=== PATIENT | male | born 1940 | race Caucasian/White ===

== ENCOUNTER 2016-06-24 18:45 | Emergency (ER) | payer OTHER, MEDICARE ==
[2016-06-24 18:59] VITALS: BMI 55.3
--- NOTE | 2016-06-24 20:02 | PDOC ---
History of Present Illness - General Chief Complaint: Shortness of Breath Stated Complaint: SHORTNESS OF BREATH Time Seen by Provider: 06/24/16 19:35 - History of Present Illness Initial Comments: 06/24/16 20:02 CHIEF COMPLAINT: HISTORY OF PRESENT ILLNESS: 75 yo M with a PMH of HTN, HLD, CHF, CT, triple bypass, four stents, insulin dependent diabetes, COPD (on CPAP at home) presents to ED with SOB x 2-3 days. Patient denies any fever but reports "a runny nose x 2 weeks. He denies any chest or back pain and states "I don't really have pain, I'm just feeling short of breath for the last couple of days. " PAST MEDICAL HISTORY: as per HPI FAMILY HISTORY: Denies SOCIAL HISTORY: Current smoker, 1 pack daily. Denies alcohol, illicit drug use. SURGICAL HISTORY: "four stents", triple bypass, hernia operation, "stomach ulcer operation" ALLERGIES: pregabalin REVIEW OF SYSTEMS General/Constitutional: Denies fever or chills. Denies weakness, weight change. HEENT: Denies change in vision. Denies ear pain or discharge. Denies sore throat. Cardiovascular: Denies chest pain or shortness of breath. Respiratory: SOB x 2-3 days, runny nose x 2 weeks. Denies cough, wheezing, or hemoptysis. Gastrointestinal: Denies nausea, vomiting, diarrhea or constipation. Denies rectal bleeding. Genitourinary: Denies dysuria, frequency, or change in urination. Musculoskeletal: Denies joint or muscle swelling or pain. Denies neck or back pain. Skin : Denies rash or easy bruising. Neurologic: Denies headache, vertigo, loss of consciousness, or loss of sensation. PHYSICAL EXAM General Appearance: Well-appearing, appropriately dressed. No apparent distress. HEENT: EOMI, PERRLA, normal ENT inspection, normal voice, TMs normal, pharynx normal. No conjunctival pallor. No photophobia, scleral icterus. Neck: Supple. Trachea midline. No tenderness, rigidity, carotid bruit, stridor , lymphadenopathy, or thyromegaly. Respiratory/Chest: Decreased lung sounds bilaterally, decreased respiratory effort. No crackles, rales, rhonchi, stridor, wheezing, dullness Cardiovascular: RRR. S1, S2. No JVD, murmur, bradycardia, tachycardia. Gastrointestinal/Abdominal: Normal bowel sounds. Abdomen soft, non-distended. No tenderness or rebound tenderness. No organomegaly, pulsatile mass, guarding , hernia, hepatomegaly, splenomegaly. Lymphatic: No adenopathy, tenderness. Musculoskeletal/Extremities: Normal inspection. FROM of all extremities, normal capillary refill. Pelvis Stable. No CVA tenderness. No tenderness to extremities, pedal edema, swelling, erythema or deformity. Integumentary: Appropriate color, dry, warm. 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 Fully oriented, alert. Appropriate mood/affect. Motor strength 5/5. No appreciable EOM palsy, facial droop or sensory deficit. 06/24/16 20:09 06/24/16 20:11 Past History - Past Medical History Allergies/Adverse Reactions: Allergies Allergy/AdvReac Type Severity Reaction Status Date / Time pregabalin [From Lyrica] AdvReac Verified 06/24/16 18:56 Home Medications: Ambulatory Orders Albuterol Sulfate [Proair Hfa -] 1 - 2 inh PO PRN 04/05/14 Escitalopram Oxalate [Lexapro -] 20 mg PO HS 04/05/14 Insulin Aspart [Novolog Flexpen] 0 unit SQ ASDIR 04/05/14 Insulin Glargine,Hum.rec.anlog [Lantus Solostar PEN -] 15 units SQ HS 04/05/14 Metoprolol Tartrate [Lopressor -] 12.5 mg PO BID 04/05/14 Rosuvastatin [Crestor -] 20 mg PO HS 04/05/14 Venlafaxine HCl [Effexor -] 75 mg PO DAILY 04/05/14 Omega3/Dha/Epa/Fish Oil/Vit D3 [[place]-3 + Vitamin D3 Softgel] 1 each PO DAILY Tamsulosin HCl [Flomax -] 0.4 mg PO HS 01/04/15 Enalapril Maleate 2.5 mg PO DAILY 07/19/15 Fluticasone/Salmeterol [Advair 250-50 Diskus] 1 each IH BID 07/19/15 Clopidogrel Bisulfate [Plavix -] 75 mg PO DAILY #0 11/21/15 Dextromethorphan HBr [Wal-Tussin Cough] 15 mg PO QID PRN #28 capsule 06/25/16 Anemia: Yes Asthma: Yes Cancer: No (family h/o leukemia) Cardiac Disorders: Yes (CT, 3 stentS,pvd,cad,bypass) CVA: No COPD: Yes (on CPAP machine at home ) CHF: Yes Dementia: No Diabetes: Yes (IDDM) GI Disorders: Yes (ESOPHAGEAL DYSMOTILITY, GASTRITIS, H-PYLORI) Disorders: Yes (PROSTATE BX) HTN: Yes Hypercholesterolemia: Yes HIV: No Kidney Stones: No Liver Disease: No Psychiatric Problems: No Suicide Attempt (Hx): No Seizures: No Thyroid Disease: No Lung CA: No - Surgical History Abdominal Surgery: Yes (PARTIAL GASTRECTOMY,H/O ULCERS EGD BIOPSY 2009,EGD H- PYLORI 2006,COLON 2003) Appendectomy: Yes Cardiac Surgery: Yes (STENTS X3 ,TRIPLE BYPASS CABG 2003) Cholecystectomy: Yes Lung Surgery: No Neurologic Surgery: No Orthopedic Surgery: No - Family Disease History Family Disease History: Heart Disease: Father - Reproductive History Testicular Surgery: Yes - Immunization History Immunization Up to Date: Yes - Psycho/Social/Smoking Cessation Hx Anxiety: No Suicidal Ideation: No Smoking Status: Yes Smoking History: Current every day smoker Years of Tobacco Use: 50 Have you smoked in the past 12 months: Yes Number of Cigarettes Smoked Daily: 20 Information on smoking cessation initiated: Yes 'Breaking Loose' booklet given: 06/24/16 Hx Alcohol Use: No Drug/Substance Use Hx: No Substance Use Type: Cocaine Hx Substance Use Treatment: No Respiratory Specific PMHX - Complaint Specific PMHX Bronchitis: Yes Pneumonia: Yes *Physical Exam - Vital Signs Last Vital Signs Temp Pulse Resp BP Pulse Ox 98.0 F 98 H 18 166/79 94 L 06/24/16 18:57 06/24/16 18:57 06/24/16 18:57 06/24/16 18:57 06/24/16 18:57 ED Treatment Course - LABORATORY CBC & Chemistry Diagram: 06/24/16 21:01 06/24/16 21:01 Medical Decision Making - Medical Decision Making 06/24/16 20:11 75 yo M with a PMH of HTN, HLD, CHF, CT, triple bypass, four stents, insulin dependent diabetes, COPD (on CPAP at home) presents to ED with SOB x 2-3 days. Ddx includes URI, flu, bronchitis, pneumonia, CT, PE. -EKG, CXR -Peak flow meter -CBC, CMP -Influenza rapid swab Flu negative. Labs unremarkable. CXR suggestive of chronic lung disease. Patient's SOB most likely secondary to acute viral bronchitis. Patient states cough syrup "messes with my sugar", will rx oral tab for dextromethorphan. Advised patient to f/u with PMD and of signs and symptoms of return to ER. Patient verbalized understanding and agrees to plan. *DC/Admit/Observation/Transfer Diagnosis at time of Disposition: Cough, Bronchitis - Discharge Dispostion Disposition: HOME Condition at time of disposition: Stable Admit: No - Prescriptions Prescriptions: Dextromethorphan HBr [Wal-Tussin Cough] 15 mg PO QID PRN #28 capsule PRN Reason: Cough - Referrals Referrals: Samson Mills MD [Staff Physician] - Macie Triana MD [Staff Physician] - - Patient Instructions Printed Discharge Instructions: DI for Acute Bronchitis, DI for Chronic Obstructive Pulmonary Disease Additional Instructions: Please take medications as prescribed. Please follow up with a primary care doctor and demolition hammer operator this week as discussed. Please discontinue the cough syrup to avoid fluctuations in your blood sugar. If you experience severe shortness of breath, palpitations, fever, nausea, vomiting, diarrhea, or any new or worsening symptoms, please return to the ER.
[2016-06-24] MEDS ORDERED: ALBUTEROL SO4 0.083% IH SOL 2.5 MG/3 ML VIAL.NEB. NEB ONE ×2 (20:16→21:02)
--- NOTE | 2016-06-24 20:20 | PDOC ---
[id number] 94 L 06/24/16 18:57 06/24/16 18:57 06/24/16 18:57 06/24/16 18:57 06/24/16 18:57 ED Treatment Course - LABORATORY CBC & Chemistry Diagram: 06/24/16 21:01 06/24/16 21:01 Medical Decision Making - Medical Decision Making 06/24/16 20:20 agree with care from CEMENT TRUCK LOADER Roxy *DC/Admit/Observation/Transfer Diagnosis at time of Disposition: Cough, Bronchitis - Discharge Dispostion Disposition: HOME Condition at time of disposition: Stable - Prescriptions Prescriptions: Dextromethorphan HBr [Wal-Tussin Cough] 15 mg PO QID PRN #28 capsule PRN Reason: Cough - Referrals Referrals: Macie Triana MD [Staff Physician] - Samson Mills MD [Staff Physician] - - Patient Instructions Printed Discharge Instructions: DI for Chronic Obstructive Pulmonary Disease, DI for Acute Bronchitis Additional Instructions: Please take medications as prescribed. Please follow up with a primary care doctor and director of outside sales this week as discussed. Please discontinue the cough syrup to avoid fluctuations in your blood sugar. If you experience severe shortness of breath, palpitations, fever, nausea, vomiting, diarrhea, or any new or worsening symptoms, please return to the ER.
[2016-06-24 21:16] LABS: BASOPHIL 1.1 % (0-2.0); EOSINOPHIL 0.7 % (0-4.5); MCH 22.9 pg (25.7-33.7); MCHC 32.2 g/dl (32.0-35.9); MEAN CELL VOLUME 71.2 fl (80-96); MEAN PLT VOLUME 7.8 fl (7.5-11.1); NEUTROPHILS 81.7 % (42.8-82.8); PLATELET COUNT 198 K/MM3 (134-434); RDW 20.5 % (11.9-15.9); WHITE BLOOD COUNT 8.1 K/mm3 (4.0-10.0)
[2016-06-24 21:29] LABS: INR 1.09 (0.82-1.09)
[2016-06-24 21:54] LABS: PLATELET ESTIMATE ADEQUATE (NORMAL)
[2016-06-24 21:55] LABS: ANISOCYTOSIS 1+; HYPOCHROMIA 1+; MICROCYTOSIS 1+; POLYCHROMASIA 1+
[2016-06-24 21:59] LABS: ALBUMIN 3.3 g/dl (3.4-5.0); CALCIUM 9.1 mg/dL (8.5-10.1)
[2016-06-24 22:03] LABS: BILIRUBIN,TOTAL 0.7 mg/dL (0.2-1.0); CREATININE 1.3 mg/dL (0.7-1.3); TOT PROT 6.8 g/dl (6.4-8.2)
[2016-06-24] MEDS ORDERED: ONDANSETRON *ODT* 4 MG TABLET SL ONE (22:03)
[2016-06-24] MEDS ORDERED: ONDANSETRON 8 MG TABLET (FP) PO ONE (22:30)
[2016-06-24 22:35] LABS: TROPONIN I 0.04 ng/ml (0.00-0.05)
[2016-06-24] MEDS ORDERED: SODIUM CHLORIDE 1,000 ML IV STA (22:46)
[2016-06-25 00:07] VITALS: BP 145/65; PULSE 89; TEMP 99
--- NOTE | 2016-06-25 13:51 | EKG ---
Test Reason : Blood Pressure : / mmHG Vent. Rate : 092 BPM Atrial Rate : 092 BPM P-R Int : 218 ms QRS Dur : 120 ms QT Int : 412 ms P-R-T Axes : 090 -02 105 degrees QTc Int : 509 ms POOR DATA QUALITY, INTERPRETATION MAY BE ADVERSELY AFFECTED SINUS RHYTHM WITH 1ST DEGREE A-V BLOCK INCOMPLETE LEFT BUNDLE BRANCH BLOCK ABNORMAL ECG WHEN COMPARED WITH ECG OF 22-OCT-2015 17:42, NON-SPECIFIC CHANGE IN ST SEGMENT IN ANTERIOR LEADS NONSPECIFIC T WAVE ABNORMALITY NO LONGER EVIDENT IN INFERIOR LEADS T WAVE INVERSION NO LONGER EVIDENT IN ANTERIOR LEADS Confirmed by THOMAS EGAN, TAWNY ([id number]) on 06/25/2016 1:51:18 PM Referred By: Confirmed By:TAWNY GUZMAN MD
== END 2016-06-25 00:49 | disposition home or self-care (01) ==
LOC: JER 18:45
PROC: 3E0F7GC Introduction of Other Therapeutic Substance into Respiratory Tract, Via Natural or Artificial Opening (ICD-10-PCS; principal; 2016-06-24)
PROC: 3E0337Z Introduction of Electrolytic and Water Balance Substance into Peripheral Vein, Percutaneous Approach (ICD-10-PCS; 2016-06-24)
DX: J20.9 Acute bronchitis, unspecified (principal); I25.2 Old myocardial infarction; I10 Essential (primary) hypertension; Z95.1 Presence of aortocoronary bypass graft; Z95.5 Presence of coronary angioplasty implant and graft; J44.9 Chronic obstructive pulmonary disease, unspecified; E11.9 Type 2 diabetes mellitus without complications; Z79.4 Long term (current) use of insulin; E78.00 Pure hypercholesterolemia, unspecified
CPT/HCPCS: 36415; 71020-TC; 71275-TC; 80053; 82550; 84484; 85025; 85610; 87804; 93005; 93010; 94640; 96360; 99284-25

== ENCOUNTER → 2016-07-24 | Emergency (ER) | payer OTHER, MEDICARE ==
--- NOTE | 2016-07-24 15:48 | PDOC ---
Rapid Medical Evaluation Chief Complaint: Weakness Time Seen by Provider: 07/24/16 15:45 Medical Evaluation: Allergies Allergy/AdvReac Type Severity Reaction Status Date / Time pregabalin [From Lyrica] AdvReac Verified 06/24/16 18:56 RME Note: I have performed a brief, in-person evaluation of this patient . This patient presents with CC: 1 hour, dizziness, weakness, NO CP, no SOB, Pertinent PE findings are: VS 114/ 45 I have ordered: labs, ekg The patient will proceed to ED for further evaluation. , 07/24/16 15:46
[2016-07-24 15:49] VITALS: BP 114/45; PULSE 67; BMI 25.8
[2016-07-24 16:16] LABS: BASOPHIL 0.9 % (0-2.0); EOSINOPHIL 1.4 % (0-4.5); MCH 23.4 pg (25.7-33.7); MCHC 33.1 g/dl (32.0-35.9); MEAN CELL VOLUME 70.9 fl (80-96); MEAN PLT VOLUME 8.6 fl (7.5-11.1); NEUTROPHILS 74.1 % (42.8-82.8); PLATELET COUNT 197 K/MM3 (134-434); RDW 22.3 % (11.9-15.9); WHITE BLOOD COUNT 6.9 K/mm3 (4.0-10.0)
[2016-07-24 16:26] VITALS: TEMP 97.4
[2016-07-24 16:49] LABS: INR 0.96 (0.82-1.09); PROTHROMBIN TIME (PATIENT) 10.5 SEC (9.98-11.88)
[2016-07-24 16:51] LABS: ACTIVATED PTT 31.7 SECONDS (26.9-34.4)
[2016-07-24 17:07] LABS: ALBUMIN 3.6 g/dl (3.4-5.0); ANION GAP 7 (8-16); BILIRUBIN,TOTAL 0.5 mg/dL (0.2-1.0); CALCIUM 9.4 mg/dL (8.5-10.1); CO2 25 mmol/L (21-32); CREATININE 1.4 mg/dL (0.7-1.3); GLUCOSE,RANDOM 159 mg/dL (74-106); SGOT/AST 26 U/L (15-37); SGPT/ALT 48 U/L (12-78); TOT PROT 7.3 g/dl (6.4-8.2)
[2016-07-24 17:09] LABS: ALK PHOS 105 U/L (45-117); TROPONIN I < 0.02 ng/ml (0.00-0.05)
--- NOTE | 2016-07-24 17:27 | PDOC ---
History of Present Illness - General Chief Complaint: Weakness Stated Complaint: (PCP SENT) SYBCOPE/ DEHYDRATED, HIGH BP Time Seen by Provider: 07/24/16 15:45 History Source: Patient Exam Limitations: No Limitations - History of Present Illness Initial Comments: 07/24/16 17:26 76-year-old male with history of [place], CAD, CABG, insulin-dependent diabetes, and hypertension presents with generalized fatigue, malaise, decreased appetite , and elevated glucose for the past 2 days. Patient states went to his primary care physician and was told that his blood pressure was low for his normal which was 100/40 and sent into the ER for further evaluation. Patient states has also been having increased urination for the past 2 days but denies fever, chills, headache, or dizziness. Timing/Duration: other (2 days) Severity: moderate Associated Symptoms: reports: loss of appetite, malaise, weakness Past History - Past Medical History Allergies/Adverse Reactions: Allergies Allergy/AdvReac Type Severity Reaction Status Date / Time pregabalin [From Lyrica] AdvReac Verified 07/24/16 15:49 Home Medications: Ambulatory Orders Albuterol Sulfate [Proair Hfa -] 1 - 2 inh PO PRN 04/05/14 Escitalopram Oxalate [Lexapro -] 20 mg PO HS 04/05/14 Insulin Aspart [Novolog Flexpen] 0 unit SQ ASDIR 04/05/14 Insulin Glargine,Hum.rec.anlog [Lantus Solostar PEN -] 15 units SQ HS 04/05/14 Metoprolol Tartrate [Lopressor -] 12.5 mg PO BID 04/05/14 Rosuvastatin [Crestor -] 20 mg PO HS 04/05/14 Venlafaxine HCl [Effexor -] 75 mg PO DAILY 04/05/14 Omega3/Dha/Epa/Fish Oil/Vit D3 [[place]-3 + Vitamin D3 Softgel] 1 each PO DAILY Tamsulosin HCl [Flomax -] 0.4 mg PO HS 01/04/15 Enalapril Maleate 2.5 mg PO DAILY 07/19/15 Fluticasone/Salmeterol [Advair 250-50 Diskus] 1 each IH BID 07/19/15 Clopidogrel Bisulfate [Plavix -] 75 mg PO DAILY #0 11/21/15 Dextromethorphan HBr [Wal-Tussin Cough] 15 mg PO QID PRN #28 capsule 06/25/16 Levofloxacin [Levaquin -] 500 mg PO DAILY #10 tablet 07/24/16 Anemia: Yes Asthma: Yes Cancer: No (family h/o leukemia) Cardiac Disorders: Yes ([place], 3 stentS,pvd,cad,bypass) CVA: No COPD: Yes (on CPAP machine at home ) CHF: Yes Dementia: No Diabetes: Yes (IDDM) GI Disorders: Yes (ESOPHAGEAL DYSMOTILITY, GASTRITIS, H-PYLORI) Disorders: Yes (PROSTATE BX) HTN: Yes Hypercholesterolemia: Yes HIV: No Kidney Stones: No Liver Disease: No Psychiatric Problems: No Suicide Attempt (Hx): No Seizures: No Thyroid Disease: No Lung CA: No - Surgical History Abdominal Surgery: Yes (PARTIAL GASTRECTOMY,H/O ULCERS EGD BIOPSY 2009,EGD H- PYLORI 2006,COLON 2003) Appendectomy: Yes Cardiac Surgery: Yes (STENTS X3 ,TRIPLE BYPASS CABG 2003) Cholecystectomy: Yes Lung Surgery: No Neurologic Surgery: No Orthopedic Surgery: No - Family Disease History Family Disease History: Heart Disease: Father - Reproductive History Testicular Surgery: Yes - Immunization History Immunization Up to Date: Yes - Psycho/Social/Smoking Cessation Hx Anxiety: No Suicidal Ideation: No Smoking Status: Yes Smoking History: Current every day smoker Years of Tobacco Use: 50 Have you smoked in the past 12 months: Yes Number of Cigarettes Smoked Daily: 20 Information on smoking cessation initiated: Yes 'Breaking Loose' booklet given: 07/24/16 Hx Alcohol Use: No Drug/Substance Use Hx: No Substance Use Type: None Hx Substance Use Treatment: No Patient Lives Alone: Yes Review of Systems - Review of Systems Able to Perform ROS?: Yes Constitutional: Yes: Loss of Appetite, Weakness HEENTM: No: Symptoms Reported Respiratory: No: Symptoms reported Cardiac (ROS): Yes: Lightheadedness ABD/GI: Yes: Poor Appetite, Poor Fluid Intake : Yes: Frequency Musculoskeletal: No: Symptoms Reported Integumentary: No: Symptoms Reported Neurological: Yes: Weakness Hematologic/Lymphatic: No: Symptoms Reported *Physical Exam - Vital Signs Last Vital Signs Temp Pulse Resp BP Pulse Ox 97.4 F L 67 18 114/45 100 07/24/16 15:45 07/24/16 15:45 07/24/16 15:45 07/24/16 15:45 07/24/16 15:45 - Physical Exam General Appearance: Yes: Nourished, Appropriately Dressed. No: Apparent Distress HEENT: positive: EOMI, FAVIOLA. negative: Pale Conjunctivae Neck: positive: Normal Thyroid Respiratory/Chest: positive: Lungs Clear, Normal Breath Sounds. negative: Respiratory Distress, Accessory Muscle Use Cardiovascular: positive: Regular Rhythm, Regular Rate. negative: Murmur Gastrointestinal/Abdominal: positive: Soft. negative: Tenderness Musculoskeletal: negative: CVA Tenderness Extremity: positive: Normal Capillary Refill. negative: Pedal Edema Integumentary: positive: Normal Color, Warm, Pale Neurologic: positive: Normal Mood/Affect, Motor Strength 5/5 (ambulatory) Heart Score/ECG Review - ECG Intrepretation Rhythm: Regular Rhythm (rate 65. Sinus rhythm with first-degree AV block.) ED Treatment Course - LABORATORY CBC & Chemistry Diagram: 07/24/16 15:50 07/24/16 15:50 - ADDITIONAL ORDERS Additional order review: Laboratory Results 07/24/16 07/24/16 15:50 15:50 INR 0.96 PTT (Actin FS) 31.7 Sodium 139 Potassium 4.8 D Chloride 107 Carbon Dioxide 25 Anion Gap 7 L BUN 28 H D Creatinine 1.4 H Creat Clearance w eGFR 49.54 Random Glucose 159 H Calcium 9.4 Total Bilirubin 0.5 D AST 26 D ALT 48 D Alkaline Phosphatase 105 Creatine Kinase 57 Troponin I < 0.02 D Total Protein 7.3 Albumin 3.6 07/24/16 15:50 RBC 5.84 H MCV 70.9 L MCHC 33.1 RDW 22.3 H MPV 8.6 D Neutrophils % 74.1 Lymphocytes % 16.8 D Monocytes % 6.8 Eosinophils % 1.4 D Basophils % 0.9 Medical Decision Making - Medical Decision Making 07/24/16 17:28 Patient complains of generalized fatigue, decreased appetite, elevated sugar, low BP. Patient also been complaining of urinary frequency. Patient had a noted low BP in the office of Dr. Limon and sent here for further workup. Patient on exam had no acute findings except for pale appearance. Patient ordered for a septic workup including an acetone secondary to subjective elevated glucose . 07/24/16 18:51 Laboratory Tests 07/24/16 07/24/16 07/24/16 15:50 15:50 15:50 WBC 6.9 Plt Count 197 Neutrophils % 74.1 INR 0.96 Sodium 139 Carbon Dioxide 25 BUN 28 H D Creatinine 1.4 H Calcium 9.4 Total Bilirubin 0.5 D ALT 48 D Troponin I < 0.02 D Urine Protein Urine Nitrite Ur Leukocyte Esterase Urine WBC 07/24/16 18:00 WBC Plt Count Neutrophils % INR Sodium Carbon Dioxide BUN Creatinine Calcium Total Bilirubin ALT Troponin I Urine Protein 2+ H Urine Nitrite Negative Ur Leukocyte Esterase 1+ H Urine WBC 45-50 Pt will discharge home with Levaquin. *DC/Admit/Observation/Transfer Diagnosis at time of Disposition: Urinary tract infection Qualifiers: Urinary tract infection type: acute cystitis Hematuria presence: without hematuria Qualified Code(s): N30.00 - Acute cystitis without hematuria - Discharge Dispostion Disposition: HOME Condition at time of disposition: Good - Prescriptions Prescriptions: Levofloxacin [Levaquin -] 500 mg PO DAILY #10 tablet - Referrals Referrals: Erinn Limon MD [Primary Care Provider] - - Patient Instructions Printed Discharge Instructions: DI for Urinary Tract Infection (UTI) Additional Instructions: Please check your sugar routinely and please drink plenty of fluids. I recommend that you start this antibiotic tonight. I also recommend that you follow-up with your urologist. Return to ED if symptoms worsen..
[2016-07-24 18:11] LABS: PH,URINE 5.5 (5.0-8.0); URINE APPEARANCE SL CLOUDY; URINE BILIRUBIN NEGATIVE (NEGATIVE); URINE BLOOD TRACE-INTA (NEGATIVE); URINE COLOR LT. YELLOW; URINE GLUCOSE (UA) NEGATIVE (NEGATIVE); URINE KETONE NEGATIVE (NEGATIVE); URINE LEUK ESTERASE 1+ (NEGATIVE); URINE NITRITE NEGATIVE (NEGATIVE); URINE PROTEIN 2+ (NEGATIVE); URINE UROBILINOGEN 0.2 E.U/dl E.U./dl (0.2-1.0)
--- NOTE | 2016-07-24 18:32 | PDOC ---
[id number] 100 07/24/16 15:45 07/24/16 15:45 07/24/16 15:45 07/24/16 15:45 07/24/16 15:45 ED Treatment Course - LABORATORY CBC & Chemistry Diagram: 07/24/16 15:50 07/24/16 15:50 - ADDITIONAL ORDERS Additional order review: Laboratory Results 07/24/16 07/24/16 07/24/16 18:00 15:50 15:50 INR 0.96 PTT (Actin FS) 31.7 Sodium 139 Potassium 4.8 D Chloride 107 Carbon Dioxide 25 Anion Gap 7 L BUN 28 H D Creatinine 1.4 H Creat Clearance w eGFR 49.54 Random Glucose 159 H Calcium 9.4 Total Bilirubin 0.5 D AST 26 D ALT 48 D Alkaline Phosphatase 105 Creatine Kinase 57 Troponin I < 0.02 D Total Protein 7.3 Albumin 3.6 Urine Color Lt. yellow Urine Appearance Sl cloudy Urine pH 5.5 Ur Specific [place] >= 1.030 Urine Protein 2+ H Urine Glucose (UA) Negative Urine Ketones Negative Urine Blood Trace-inta Urine Nitrite Negative Urine Bilirubin Negative Urine Urobilinogen 0.2 e.u/dl Ur Leukocyte Esterase 1+ H 07/24/16 15:50 RBC 5.84 H MCV 70.9 L MCHC 33.1 RDW 22.3 H MPV 8.6 D Neutrophils % 74.1 Lymphocytes % 16.8 D Monocytes % 6.8 Eosinophils % 1.4 D Basophils % 0.9 Medical Decision Making - Medical Decision Making 07/24/16 18:32 Pt seen by the Advanced Practice Provider under my direct supervision Ancillary studies reviewed I agree with plan as outlined by the Advanced Practice Provider MAO Leonard *DC/Admit/Observation/Transfer Diagnosis at time of Disposition: Urinary tract infection - Discharge Dispostion Disposition: HOME Condition at time of disposition: Good - Prescriptions Prescriptions: Levofloxacin [Levaquin -] 500 mg PO DAILY #10 tablet - Referrals Referrals: Erinn Limon MD [Primary Care Provider] - - Patient Instructions Printed Discharge Instructions: DI for Urinary Tract Infection (UTI) Additional Instructions: Please check your sugar routinely and please drink plenty of fluids. I recommend that you start this antibiotic tonight. I also recommend that you follow-up with your urologist. Return to ED if symptoms worsen..
[2016-07-24 18:39] LABS: URINE BACTERIA FEW /hpf (NONE SEEN); URINE MUCUS FEW; URINE WBC 45-50 /hpf (3-5)
[2016-07-24 19:17] LABS: ANISOCYTOSIS 3+; MICROCYTOSIS 2+; OVALOCYTES 1+; TEAR DROP CELLS 1+
--- NOTE | 2016-07-25 09:42 | EKG ---
Test Reason : Blood Pressure : / mmHG Vent. Rate : 065 BPM Atrial Rate : 065 BPM P-R Int : 232 ms QRS Dur : 124 ms QT Int : 460 ms P-R-T Axes : 049 -11 118 degrees QTc Int : 478 ms SINUS RHYTHM WITH 1ST DEGREE A-V BLOCK WITH OCCASIONAL PREMATURE VENTRICULAR COMPLEXES CANNOT RULE OUT ANTERIOR INFARCT , AGE UNDETERMINED T WAVE ABNORMALITY, CONSIDER LATERAL ISCHEMIA ABNORMAL ECG WHEN COMPARED WITH ECG OF 24-JUN-2016 22:06, PREMATURE VENTRICULAR COMPLEXES ARE NOW PRESENT Confirmed by MELISSA LI MD ([id number]) on 07/25/2016 9:41:37 AM Referred By: Confirmed By:MELISSA LI MD
== END | disposition home or self-care (01) ==
LOC: JER 15:38
DX: E11.65 Type 2 diabetes mellitus with hyperglycemia (principal); N30.00 Acute cystitis without hematuria; I25.2 Old myocardial infarction; I25.10 Atherosclerotic heart disease of native coronary artery without angina pectoris; I10 Essential (primary) hypertension; Z95.1 Presence of aortocoronary bypass graft; Z95.5 Presence of coronary angioplasty implant and graft; I50.9 Heart failure, unspecified; E78.00 Pure hypercholesterolemia, unspecified; K22.4 Dyskinesia of esophagus; J45.909 Unspecified asthma, uncomplicated; D64.9 Anemia, unspecified
CPT/HCPCS: 36415; 80053; 81003; 81015; 82009; 82550; 84484; 85025; 85610; 85730; 87086; 93005; 93010; 99282-25

== ENCOUNTER 2016-12-24 17:28 | Observation (INO) | payer OTHER, MEDICARE ==
[2016-12-24 17:41] VITALS: BMI 24.3
--- NOTE | 2016-12-24 18:07 | PDOC ---
History of Present Illness - General Chief Complaint: Pain Stated Complaint: ACUTE PAIN Time Seen by Provider: 12/24/16 17:43 History Source: Patient Exam Limitations: No Limitations - History of Present Illness Initial Comments: 12/24/16 18:00 Patient is 76M with a history of insulin dependent diabetes, MN s/p stenting and bypass on digoxin and plavix and COPD here today complaining of a wound to his right great toe. The wound was first noticed 3 days ago and has been progressively getting worse. It started bleeding today and part of the toenail fell off, prompting the patient to come into the emergency department. He endorses pain in the big toe and some nausea. He denies pain proximal to the big toe. He denies fevers, chills, and vomiting. He endorses nausea. He states that he's never had a wound to his toe before. He reports compliance with his medication, but says his medications are managed by his , who is not present. PPD smoker. Past History - Past Medical History Allergies/Adverse Reactions: Allergies Allergy/AdvReac Type Severity Reaction Status Date / Time pregabalin [From Lyrica] AdvReac Verified 12/24/16 17:41 Home Medications: Ambulatory Orders Albuterol 0.083% Nebulizer Fatuma [Ventolin 0.083% Nebulizer Soln -] 1 amp NEB PRN 12/24/16 Albuterol Sulfate [Proair Respiclick] 90 mcg IH PRN PRN 12/24/16 Bimatoprost [Lumigan] 1 drop OU DAILY 12/24/16 Budesonide/Formeterol Fumarate [SYMBICORT 160/4.5mcg -] 1 inh PO DAILY 12/24/16 Clopidogrel Bisulfate [Plavix -] 75 mg PO DAILY 12/24/16 Digoxin [Lanoxin -] 0.125 mg PO ASDIR 12/24/16 Enalapril Maleate [Vasotec] 2.5 mg PO ASDIR 12/24/16 Escitalopram Oxalate [Lexapro -] 20 mg PO DAILY 12/24/16 Insulin Glargine,Hum.rec.anlog [Lantus Solostar PEN (NF)] 34 units SQ HS Insulin Lispro [Humalog] 12 - 26 unit SQ PRN 12/24/16 Rosuvastatin Calcium [Crestor] 20 mg PO DAILY 12/24/16 Tamsulosin HCl [Flomax] 0.4 mg PO DAILY 12/24/16 Venlafaxine HCl ER [Effexor Xr -] 75 mg PO DAILY 12/24/16 Anemia: Yes Asthma: Yes Cancer: No (family h/o leukemia) Cardiac Disorders: Yes (MN, 3 stentS,pvd,cad,bypass) CVA: No COPD: Yes (on CPAP machine at home ) CHF: Yes Dementia: No Diabetes: Yes (IDDM) GI Disorders: Yes (ESOPHAGEAL DYSMOTILITY, GASTRITIS, H-PYLORI) Disorders: Yes (PROSTATE BX) HTN: Yes Hypercholesterolemia: Yes HIV: No Kidney Stones: No Liver Disease: No Psychiatric Problems: No Suicide Attempt (Hx): No Seizures: No Thyroid Disease: No Lung CA: No - Surgical History Abdominal Surgery: Yes (PARTIAL GASTRECTOMY,H/O ULCERS EGD BIOPSY 2009,EGD H- PYLORI 2006,COLON 2003) Appendectomy: Yes Cardiac Surgery: Yes (STENTS X3 ,TRIPLE BYPASS CABG 2003) Cholecystectomy: Yes Lung Surgery: No Neurologic Surgery: No Orthopedic Surgery: No - Family Disease History Family Disease History: Heart Disease: Father - Reproductive History Testicular Surgery: Yes - Immunization History Immunization Up to Date: Yes - Psycho/Social/Smoking Cessation Hx Anxiety: No Suicidal Ideation: No Smoking Status: Yes Smoking History: Current every day smoker Years of Tobacco Use: 50 Have you smoked in the past 12 months: Yes Number of Cigarettes Smoked Daily: 20 Information on smoking cessation initiated: No 'Breaking Loose' booklet given: 07/24/16 Hx Alcohol Use: No Drug/Substance Use Hx: No Substance Use Type: None Hx Substance Use Treatment: No Review of Systems - Review of Systems Comments:: 12/24/16 18:07 GENERAL/CONSTITUTIONAL: No fever or chills. No weakness. HEAD, EYES, EARS, NOSE AND THROAT: No change in vision. No ear pain or discharge. No sore throat. CARDIOVASCULAR: No chest pain or shortness of breath RESPIRATORY: Positive for cough. Negative for wheezing, or hemoptysis. GASTROINTESTINAL: Positive for nausea. Negative for: vomiting, diarrhea or constipation. GENITOURINARY: No dysuria, frequency, or change in urination. SKIN: No rash NEUROLOGIC: No headache, vertigo, loss of consciousness, or change in strength/ sensation. ALLERGIC/IMMUNOLOGIC: No hives or skin allergy. *Physical Exam - Vital Signs Last Vital Signs Temp Pulse Resp BP Pulse Ox 97.8 F 91 H 20 145/80 98 12/24/16 17:36 12/24/16 17:36 12/24/16 17:36 12/24/16 17:36 12/24/16 17:36 - Physical Exam Comments: 12/24/16 18:41 GENERAL: Awake, alert, and fully oriented, in no acute distress HEAD: No signs of trauma, normocephalic, atraumatic EYES: PERRLA, EOMI, sclera anicteric, conjunctiva clear ENT: Auricles normal inspection, hearing grossly normal, nares patent, oropharynx clear without exudates. Dry mucosa LUNGS: No distress, speaks full sentences, diffuse wheezes in all lung avila HEART: Regular rate and rhythm, normal S1 and S2, no murmurs, rubs or gallops, weak, equal pulses is lower extremities ABDOMEN: Soft, nontender, normoactive bowel sounds. No guarding, no rebound. No masses EXTREMITIES: 1x1cm wound to distal tip of right great toe, small amount of bleeding. No pus. Normal range of motion, no edema. No clubbing or cyanosis. NEUROLOGICAL: Cranial nerves II through XII grossly intact. Normal speech, no focal sensorimotor deficits SKIN: Warm, Dry, normal turgor, macular rash on abdomen ED Treatment Course - LABORATORY CBC & Chemistry Diagram: 12/24/16 18:29 12/24/16 18:29 Medical Decision Making - Medical Decision Making 12/24/16 18:20 Patient is a 76M with history of IDDM, MN s/p stenting and bypass, currently on digoxin and plavix, and active ppd somker here today complaining of a wound to his right great toe. Vital signs stable, normal. Differential diagnosis includes , but is not limited to: diabetic foot ulcer, osteomylitis, onychomycosis. Will order CBC, CMP, ESR, CRP and x-ray to evaluate. 12/24/16 19:13 Patient has a macular rash on abdomen. Not given any medications before rash appeared. No shortness of breath. Signed out to Dr Thomson *DC/Admit/Observation/Transfer Diagnosis at time of Disposition: Diabetic foot ulcer
--- NOTE | 2016-12-24 18:33 | PDOC ---
Attending Attestation - Resident Resident Name: Alex Fallon - ED Attending Attestation I have performed the following: I have examined & evaluated the patient, The case was reviewed & discussed with the resident, I agree w/resident's findings & plan, Exceptions are as noted - HPI HPI: 12/24/16 18:31 This is a 76 yo M h/o insulin dependent DM, peripheral neuropathy, HTN, CAD s/p CABG Pt presents with a complaint of great toe ulcer which began several days ago No erythema No drainage No fevers or chills No streaking up the leg No trauma that he is aware of 12/24/16 18:32 - Physicial Exam PE: 12/26/16 08:56 Right great toe: 1x1cm wound to distal tip of right great toe, small amount of bleeding. No pus. Normal range of motion, no edema. Toe nail lose - Medical Decision Making 12/24/16 18:32 Will do: Labs Xray foot IV abx Low threshold for admission given early diabetic foot ulcer vs. prompt PMD/ Wound Clinic follow up
[2016-12-24] MEDS ORDERED: SODIUM CHLORIDE 500 ML IV STA (18:40)
[2016-12-24 18:58] LABS: BASOPHIL 0.8 % (0-2.0); EOSINOPHIL 1.1 % (0-4.5); MCH 25.2 pg (25.7-33.7); MCHC 33.6 g/dl (32.0-35.9); MEAN CELL VOLUME 74.9 fl (80-96); MEAN PLT VOLUME 9.1 fl (7.5-11.1); NEUTROPHILS 68.5 % (42.8-82.8); PLATELET COUNT 133 K/MM3 (134-434); RDW 21.4 % (11.9-15.9); WHITE BLOOD COUNT 5.6 K/mm3 (4.0-10.0)
[2016-12-24 19:22] LABS: ALBUMIN 3.1 g/dl (3.4-5.0); ALK PHOS 84 U/L (45-117); ANION GAP 8 (8-16); BILIRUBIN,TOTAL 0.4 mg/dL (0.2-1.0); CALCIUM 9.1 mg/dL (8.5-10.1); CO2 22 mmol/L (21-32); CREATININE 1.4 mg/dL (0.7-1.3); GLUCOSE,RANDOM 181 mg/dL (74-106); SGOT/AST 17 U/L (15-37); SGPT/ALT 25 U/L (12-78); TOT PROT 6.4 g/dl (6.4-8.2)
[2016-12-24 19:53] LABS: ANISOCYTOSIS 2+; MACROCYTOSIS 2+
--- NOTE | 2016-12-24 20:15 | PDOC ---
*Physical Exam - Vital Signs Last Vital Signs Temp Pulse Resp BP Pulse Ox 97.8 F 91 H 20 145/80 98 12/24/16 17:36 12/24/16 17:36 12/24/16 17:36 12/24/16 17:36 12/24/16 17:36 - Physical Exam General Appearance: Yes: Nourished, Appropriately Dressed. No: Apparent Distress HEENT: positive: EOMI, FAVIOLA Respiratory/Chest: positive: Lungs Clear, Normal Breath Sounds. negative: Chest Tender, Respiratory Distress Cardiovascular: positive: Regular Rhythm, Regular Rate. negative: Murmur Gastrointestinal/Abdominal: positive: Normal Bowel Sounds, Flat, Other (patchy periumbilical erythema, non tender, non puritic). negative: Tender, Distended Male Genitalia: positive: inguinal hernia (reducable) Musculoskeletal: positive: Other (erythema to right great toe to the first joint , tender, no purulent discharge, healing laceration to the tip and eschar at nailbed) Neurologic: positive: duty engineer II-XII NML intact, Fully Oriented, Alert, Normal Mood/ Affect, Motor Strength 09/12 ED Treatment Course - LABORATORY CBC & Chemistry Diagram: 12/24/16 18:29 12/24/16 18:29 - ADDITIONAL ORDERS Additional order review: 12/24/16 18:29 RBC 5.08 MCV 74.9 L MCHC 33.6 RDW 21.4 H MPV 9.1 Neutrophils % 68.5 Lymphocytes % 21.0 D Monocytes % 8.6 Eosinophils % 1.1 Basophils % 0.8 - Medications Given in the ED: ED Medications Discontinued Medications Generic Name Dose Route Start Last Admin Trade Name Hunterq PRN Reason Stop Dose Admin Sodium Chloride 500 mls @ 500 mls/hr 12/24/16 18:40 12/24/16 19:07 Normal Saline - IV 12/24/16 19:39 500 mls/hr ASDIR STA Administration Progress Note - Progress Note Progress Note: Patient is a stable 76 year old male with at hx of DM, COPD and ACS s/p 4xstenting signed out to me by Dr. Fallon Patient first noticed a cut to his right great toe when getting out of a hot tub 3 days ago. The wound was cleaned and bandaged but this morning the patient said he lost the toe nail and noticed the toe was getting red. Medical Decision Making - Medical Decision Making 76 yo male with history of DM and CAD s/p 4xstenting presenting with cellulites to the right great toe and no current PCP. Ddx includes but is not limited to cellulitis, osteomylitis, septic joint, resistant organism infection Follow up labs Start broad coverage abx Consider admission for observation due to age, co-morbidities and lack of current follow up. 12/24/16 19:30 Spoke with patient who asked to be admitted to Dr. Ramírez [phone] Gonzalez practice stating he in out of town and asked to have patient admitted to hospitalist. 12/24/16 20:36 CBC WBC 5.6 K/mm3 (4.0-10.0) 12/24/16 18:29 RBC 5.08 M/mm3 (4.00-5.60) 12/24/16 18:29 Hgb 12.8 GM/dL (11.7-16.9) 12/24/16 18:29 Hct 38.1 % (35.4-49) 12/24/16 18:29 MCV 74.9 fl (80-96) L 12/24/16 18:29 MCH 25.2 pg (25.7-33.7) L 12/24/16 18:29 MCHC 33.6 g/dl (32.0-35.9) 12/24/16 18:29 RDW 21.4 % (11.9-15.9) H 12/24/16 18:29 Plt Count 133 K/MM3 (134-434) L D 12/24/16 18:29 MPV 9.1 fl (7.5-11.1) 12/24/16 18:29 Neutrophils % 68.5 % (42.8-82.8) 12/24/16 18:29 Lymphocytes % 21.0 % (8-40) D 12/24/16 18:29 Monocytes % 8.6 % (3.8-10.2) 12/24/16 18:29 Eosinophils % 1.1 % (0-4.5) 12/24/16 18:29 Basophils % 0.8 % (0-2.0) 12/24/16 18:29 Anisocytosis 2+ 12/24/16 18:29 Macrocytosis 2+ 12/24/16 18:29 ESR 25 mm/hr (0-20) H 12/24/16 18:29 Elevated ESR CMP Sodium 141 mmol/L (136-145) 12/24/16 18:29 Potassium 4.2 mmol/L (3.5-5.1) 12/24/16 18:29 Chloride 111 mmol/L (98-107) H 12/24/16 18:29 Carbon Dioxide 22 mmol/L (21-32) 12/24/16 18:29 Anion Gap 8 (8-16) 12/24/16 18:29 BUN 27 mg/dL (7-18) H 12/24/16 18:29 Creatinine 1.4 mg/dL (0.7-1.3) H 12/24/16 18:29 Creat Clearance w eGFR 49.54 (>60) 12/24/16 18:29 POC Glucometer 264.90842 UNITS (()) 12/24/16 23:12 Random Glucose 181 mg/dL (74-106) H 12/24/16 18:29 Calcium 9.1 mg/dL (8.5-10.1) 12/24/16 18:29 Total Bilirubin 0.4 mg/dL (0.2-1.0) 12/24/16 18:29 AST 17 U/L (15-37) D 12/24/16 18:29 ALT 25 U/L (12-78) D 12/24/16 18:29 Alkaline Phosphatase 84 U/L (45-117) 12/24/16 18:29 C-Reactive Protein 0.5 MG/DL (0.00-0.3) H 12/24/16 18:29 Total Protein 6.4 g/dl (6.4-8.2) 12/24/16 18:29 Albumin 3.1 g/dl (3.4-5.0) L 12/24/16 18:29 Elevated CRP CR elevation (APRYL vs CKI) Elevated glucose 12/24/16 23:30 Hospitalist agreed to have patient admitted to [facility] Obs. *DC/Admit/Observation/Transfer Diagnosis at time of Disposition: Diabetic foot ulcer - Discharge Dispostion Admit: Yes - Referrals Referrals: Vikash Guerra MD [Primary Care Provider] - - Patient Instructions - Post Discharge Activity - Attestations Physician Attestion: 12/24/16 23:06 I, Dr. Nicolas Olsen, attest that this document has been prepared under my direction and personally reviewed by me in its entirety. I further attest, that it accurately reflects all work, treatment, procedures and medical decision -making performed by me.
[2016-12-24 20:17] LABS: ERYTHROCYTE SEDIMENTATION RATE 25 mm/hr (0-20)
[2016-12-24] MEDS ORDERED: VANCOMYCIN 1,000 MG in DEXTROSE 5%-WATER - 250 ML IVPB ONE (20:24)
[2016-12-24] MEDS ORDERED: PIPERACILLIN/TAZOB 3.375 GM 3.375 GM in DEXTROSE 5%-WATER - 50 ML IVPB ONE (20:24)
[2016-12-24] MEDS ORDERED: PIPERACILLIN/TAZOB 3.375 GM 50 ML IVPB ONE (20:45)
[2016-12-24] MEDS ORDERED: VANCOMYCIN 1 GRAM (PRE-DOCKED) 250 ML IVPB ONE (20:45)
[2016-12-24] MEDS ORDERED: MELATONIN 5 MG TABLETS PO PRN (22:26)
--- NOTE | 2016-12-24 22:29 | HP ---
Admitting History and Physical - Admission Chief Complaint: R 1st toe wound History of Present Illness: 76yo M significant history of CAD s/p multiple stents on plavix, IDDM, COPD, and prior history of MRSA in nares (per pt and chart) who presents to the ED with right 1st toe wound sustained after hitting toe while in hot tub about 4 days ago. Pt reports being on blood thinners for his CAD/cardiac stents, however cannot remember the name. Pt states he was concerned since a wound developed, his toenail started to bleed and he knows diabetes can impair wound healing. Pt admits to being a smoker at about 1ppd. Denies any fever/chills, n/v /d/c, erythema extending proximal from his toe nail, foot pain, lower extremity edema. ER Course notable for: 1) EKG - no change from previous EKG; NSR 2) Toe Xray - official read pending; R 1st toe joint space intact for PIP and DIP 3) CBC, CMP - revealing normal WBC, and Cr 1.4 (baseline around 1.2-1.4 per chart) 4) CXR - official read pending; by my read - no cardiomegaly, sternal wiring noted, no infiltrates appreciated, slightly increased interstitial markings, no change from previous CXR 5) Vancomycin 1g x1 dose; Zosyn 3.375mg x1 dose 6) Blood Cx x2 pending, Wound Cx and gram stain noted History Source: Patient Limitations to Obtaining History: No Limitations - Past Medical History Cardiovascular: Yes: CAD, CHF, MA, Other (s/p stent) Pulmonary: Yes: Asthma, COPD, Other (CA lung) Gastrointestinal: Yes: Constipation Renal/: Yes: Other (BPH) Heme/Onc: Yes: Cancer (Lung) Musculoskeletal: Yes: Chronic low back pain, Osteoarthritis - Past Surgical History Past Surgical History: Yes: Cholecystectomy - Smoking History Smoking history: Current every day smoker Have you smoked in the past 12 months: Yes Aproximately how many cigarettes per day: 20 - Alcohol/Substance Use Hx Alcohol Use: No - Social History ADL: Independent Home Medications - Allergies Allergies/Adverse Reactions: Allergies Allergy/AdvReac Type Severity Reaction Status Date / Time pregabalin [From Lyrica] AdvReac Verified 12/24/16 17:41 - Home Medications Home Medications: Ambulatory Orders Albuterol 0.083% Nebulizer Fatuma [Ventolin 0.083% Nebulizer Soln -] 1 amp NEB PRN 12/24/16 Albuterol Sulfate [Proair Respiclick] 90 mcg IH PRN PRN 12/24/16 Bimatoprost [Lumigan] 1 drop OU DAILY 12/24/16 Budesonide/Formeterol Fumarate [SYMBICORT 160/4.5mcg -] 1 inh PO DAILY 12/24/16 Clopidogrel Bisulfate [Plavix -] 75 mg PO DAILY 12/24/16 Digoxin [Lanoxin -] 0.125 mg PO ASDIR 12/24/16 Enalapril Maleate [Vasotec] 2.5 mg PO ASDIR 12/24/16 Escitalopram Oxalate [Lexapro -] 20 mg PO DAILY 12/24/16 Insulin Glargine,Hum.rec.anlog [Lantus Solostar PEN (NF)] 34 units SQ HS Insulin Lispro [Humalog] 12 - 26 unit SQ PRN 12/24/16 Rosuvastatin Calcium [Crestor] 20 mg PO DAILY 12/24/16 Tamsulosin HCl [Flomax] 0.4 mg PO DAILY 12/24/16 Venlafaxine HCl ER [Effexor Xr -] 75 mg PO DAILY 12/24/16 Physical Examination Vital Signs: Vital Signs Temperature 98 F 12/24/16 20:57 Pulse Rate 68 12/24/16 20:57 Respiratory Rate 17 12/24/16 20:57 Blood Pressure 153/68 12/24/16 20:57 O2 Sat by Pulse Oximetry (%) 97 12/24/16 20:57 Constitutional: Yes: Well Nourished, No Distress, Calm Eyes: Yes: Conjunctiva Clear, EOM Intact, PERRL Respiratory: Yes: Regular (distant breath sounds), Wheezes (trace expiratory wheezes) Gastrointestinal: Yes: Normal Bowel Sounds, Soft, Hernia (hernia noted). No: Hepatomegaly, Splenomegaly, Tenderness Extremities: Yes: Other (R 1st toe wound noted anterior to toe nail; dried blood noted originating from toenail; fungus noted on b/l 1st toenails; sensation to pressure in b/l feet only; b/l strength 5/5) Edema: No Peripheral Pulses WNL: Yes Neurological: Yes: Alert, Oriented Psychiatric: Yes: Alert, Oriented Labs: CBC, BMP 12/24/16 18:29 12/24/16 18:29 Imaging - Results Chest X-ray: Image Reviewed X-ray: Image Reviewed Assessment/Plan 76yo M with sig history of IDDM, 1ppd, history of MRSA in nares, CAD and MA's s/ p stenting x4 on plavix and digoxin who sustained R 1st toe wound on hot tub. Wound culture and gram stain pending. AVSS, no WBC 1) R 1st digit wound --One time dose of Vancomycin and Zosyn --Do not think wound warrants any further antibiotics at the moment --AVSS --No WBC count --One-time dose already given --No purulence noted in wound --F/u on Wound cx and blood cx --Consulted Dr. 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; stable per pt --Continued home digoxin --Obtain Digoxin level in AM --Continued home plavix --Continued other home medications 5) HTN --Continued home Vasotec 2.5mg PO qDaily 6) BPH --Continued home Flomax 7) History of insomnia --Melatonin 5mg PRN at night for sleep ordered FEN: Fluids: Tolerating PO; not needed currently Electrolyte abnormalities: None Nutrition: Diabetic Diet Full PPX: DVT - Heparin 5000U SQ TID GI - not needed at this time Dispo: Placement in Observation; Isolation precautions due to prior hx of MRSA Visit type - Emergency Visit Emergency Visit: Yes ED Registration Date: 12/24/16 Care time: The patient presented to the Emergency Department on the above date and was hospitalized for further evaluation of their emergent condition. - New Patient This patient is new to me today: Yes Date on this admission: 12/25/16 - Critical Care Critical Care patient: No
[2016-12-24] MEDS ORDERED: ALBUTEROL SO4 0.083% IH SOL 2.5 MG/3 ML VIAL.NEB. NEB PRN (22:30)
[2016-12-24] MEDS ORDERED: INSULIN (NOVOLOG) ASPART 100 UNITS/ML 10ML VIAL SQ SCH (22:30)
[2016-12-24] MEDS ORDERED: DIGOXIN 0.125 MG TABLET (FP) ONE (22:35)
[2016-12-24] MEDS ORDERED: ENALAPRIL MALEATE 5 MG TABLET (FP) ONE ×2 (22:36→22:54)
[2016-12-24 22:44] LABS: C-REACTIVE PROTEIN 0.5 MG/DL (0.00-0.3)
[2016-12-24] MEDS ORDERED: DIGOXIN 0.125 MG TABLET (FP) PO ONE (22:44)
[2016-12-24] MEDS ORDERED: ENALAPRIL MALEATE 5 MG TABLET (FP) PO ONE (22:45)
[2016-12-24] MEDS ORDERED: ALBUTEROL SO4 6.7 GM HFA INHALER IH PRN (22:45)
[2016-12-24] MEDS ORDERED: HEPARIN NA (PORCINE) 5,000 UNITS/ML 1ML VIAL ONE (22:54)
[2016-12-24] MEDS: HEPARIN NA (PORCINE) 5,000 UNITS/ML 1ML VIAL SQ SCH (23:14)
[2016-12-24] MEDS ORDERED: INSULIN (NOVOLOG) ASPART 100 UNITS/ML 10ML VIAL ONE (23:28)
[2016-12-24] MEDS: INSULIN (NOVOLOG) ASPART 100 UNITS/ML 10ML VIAL SQ SCH (23:38)
--- NOTE | 2016-12-25 00:02 | PN ---
Teaching Attending Note Name of Resident: Richard Alvarado ATTENDING PHYSICIAN STATEMENT I saw and evaluated the patient. I reviewed the resident's note and discussed the case with the resident. I agree with the resident's findings and plan as documented. SUBJECTIVE: 76 yo poorly controlled IDDM presents to ED with concern for toe infection after he hit toe on hot tub 4-5 days ago. Denies fever, chills, chest pain, SOB , abdominal pain, G/I or G/U complaints. OBJECTIVE: - Vital Signs Temp: 98F BP: 145/80 HR: 91 RR: 17 spO2: 97% on RA - Physical Examination General: Alert, cooperative in NAD HEENT: Atraumatic, no oropharyngeal lesions Neck: No JVD or thyromegaly CV: RRR, S1 and S2 Pulm: Diffuse, scattered wheezing bilaterally Abd: Soft, NTTP, ND, BS+ Ext: Nonedematous; wound appreciated on great toe and does not appear to be infected at this time - Imaging CXR reviewed XR Foot/Toe reviewed TTE 05/2015 reviewed ( EF 46% , Borderline dilated and globally hypokinetic LV , Mild-Mod TR and MR ) - Labs BUN/Cr: 27/1.4 ( Baseline Cr. 1.3-1.5 ) K+: 4.2 ; Ca++ 9.1 H/H: 12.8/38.1 ESR 25 Last A1c on record 6.6 ( 2012 ) ASSESSMENT: Diabetic Foot Ulcer Poorly controlled IDDM complicated by peripheral neuropathy and nephropathy CAD s/p [place] PCI x 3 and CABG in past Systolic CHF - Not currently decompensated COPD - Not currently exacerbated CKD IIIa - Baseline at this time GERD - Controlled HTN - Controlled Dyslipidemia BPH - Stable Depression - Stable PLAN: Admit for observation and Podiatry evaluation. Given Vanc and Zosyn in ED, will defer abx therapy to Podiatry as patient may be transitioned to PO Confirm and continue outpatient medication regimen Supplemental O2 to maintain spO2 >/= 96% F/U repeat CBC and A1c in AM DISPOSITION Anticipate discharge in 24-48h.
[2016-12-25] MEDS: HEPARIN NA (PORCINE) 5,000 UNITS/ML 1ML VIAL SQ SCH ×2 (05:52→15:20)
[2016-12-25] MEDS ORDERED: INSULIN SLIDING SCALE (NOVOLOG) 1 VIAL SQ SCH (07:00)
[2016-12-25 07:17] LABS: ANION GAP 5 (8-16); CALCIUM 8.5 mg/dL (8.5-10.1); CO2 25 mmol/L (21-32); CREATININE 1.4 mg/dL (0.7-1.3); GLUCOSE,RANDOM 124 mg/dL (74-106)
[2016-12-25 08:01] LABS: MCH 25.4 pg (25.7-33.7); MEAN CELL VOLUME 74.6 fl (80-96); MEAN PLT VOLUME 9.1 fl (7.5-11.1); PLATELET COUNT 134 K/MM3 (134-434); RDW 20.7 % (11.9-15.9); WHITE BLOOD COUNT 5.8 K/mm3 (4.0-10.0)
[2016-12-25] MEDS: INSULIN (NOVOLOG) ASPART 100 UNITS/ML 10ML VIAL SQ SCH (08:01)
[2016-12-25] MEDS ORDERED: TAMSULOSIN HCL 0.4 MG CAP.ER.24H (FP) PO SCH (08:30)
--- NOTE | 2016-12-25 08:54 | CONSULT ---
Consult - text type - Consultation Consultation Note: Podiatry Consultation: 76 year old IDDM presents with R great toe ulcer and loosening of nail x 1 week. Patient was in hot tub on vacation and noticed blister on the toe after exiting hot tub. Denies F/V/N/C/SOB/CP. Not the best historian, patient states that he has had CABG, cardiac stents and peripheral vascular stents, just doesn't know the timing. Denies streaking redness to the foot. PMHx: IDDM, CAD s/p CABG and stents, PVD s/p stents, COPD, HTN Meds: on AC (plavix) ALL: pregabalin ROSEMARIE: R foot: DP pulse palpable, PT pulse non-palpable. R great toe nail completely loosened to the proximal nail fold, no purulent drainage, no fluctuance, no ascending cellulitis, mild periwound erythema, no signs of active infection. R great toe ulcer distal tuft, dry eschar, no ischemic changes, no purulence, no probing, no fluctuance, no ascending cellulitis, no signs of active infection. Minimal tenderness to palpation. WBC: 5.8 ESR: 25 Blood/Wound Cx: pending R foot XR: no radiographic evidence of osteomyelitis, no ST gas Imp: 76 year old CAD, IDDM M with R great toe ulcer 1. Total nail avulsion performed, no exposed bone underlying nail bed, no active bleeding. 2. Topical bactroban + DSD daily 3. Concerned over how he is able to heal the wound. Recommended non-invasive vascular studies to start. 4. May need bone scan. Non-operative management should heal the wound. 5. Thank you for the courtesy of this consultation. Monique Osborn DPM
[2016-12-25] MEDS ORDERED: VITAMIN B COMP W-C 1 EA TABLET PO SCH (10:00)
[2016-12-25] MEDS ORDERED: VENLAFAXINE HCL 75 MG E.R. CAPSULES (FP) PO SCH (10:00)
[2016-12-25] MEDS ORDERED: ESCITALOPRAM OXALATE 20 MG TABLET (FP) PO SCH (10:00)
[2016-12-25] MEDS ORDERED: ENALAPRIL MALEATE 2.5 MG TABLET (FP) PO SCH (10:00)
[2016-12-25] MEDS ORDERED: NICOTINE 14 MG/24 HOURS TOPICAL PATCH TD SCH (10:00)
[2016-12-25] MEDS ORDERED: CLOPIDOGREL BISULFATE 75 MG TABLET (FP) PO SCH (10:00)
[2016-12-25] MEDS ORDERED: DIGOXIN 0.125 MG TABLET (FP) PO SCH (10:00)
[2016-12-25] MEDS ORDERED: BUDESONIDE/FORMETEROL FUMARATE 160/4.5 mcg INHALER IH SCH (10:00)
[2016-12-25] MEDS ORDERED: PT OWN MED DRAWER 7, Y5N ONE ×2 (10:23→10:48)
--- NOTE | 2016-12-25 10:28 | PN ---
Teaching Attending Note Name of Resident: Dorothy Verde ATTENDING PHYSICIAN STATEMENT I saw and evaluated the patient. I reviewed the resident's note and discussed the case with the resident. I agree with the resident's findings and plan as documented. SUBJECTIVE: Patient is comfortable with no acute distress, no nausea or vomiting. No headache, no shortness of breath, no fever or chills. OBJECTIVE: Vital Signs Temperature 97.9 F 12/25/16 06:00 Pulse Rate 62 12/25/16 06:00 Respiratory Rate 18 12/25/16 06:00 Blood Pressure 139/87 12/25/16 06:00 O2 Sat by Pulse Oximetry (%) 98 12/25/16 01:02 CBCD WBC 5.8 K/mm3 (4.0-10.0) 12/25/16 06:15 RBC 4.90 M/mm3 (4.00-5.60) 12/25/16 06:15 Hgb 12.4 GM/dL (11.7-16.9) 12/25/16 06:15 Hct 36.6 % (35.4-49) 12/25/16 06:15 MCV 74.6 fl (80-96) L 12/25/16 06:15 MCHC 34.0 g/dl (32.0-35.9) 12/25/16 06:15 RDW 20.7 % (11.9-15.9) H 12/25/16 06:15 Plt Count 134 K/MM3 (134-434) 12/25/16 06:15 MPV 9.1 fl (7.5-11.1) 12/25/16 06:15 CMP Sodium 143 mmol/L (136-145) 12/25/16 06:15 Potassium 4.0 mmol/L (3.5-5.1) 12/25/16 06:15 Chloride 113 mmol/L (98-107) H 12/25/16 06:15 Carbon Dioxide 25 mmol/L (21-32) 12/25/16 06:15 Anion Gap 5 (8-16) L 12/25/16 06:15 BUN 24 mg/dL (7-18) H 12/25/16 06:15 Creatinine 1.4 mg/dL (0.7-1.3) H 12/25/16 06:15 Creat Clearance w eGFR 49.54 (>60) 12/24/16 18:29 Random Glucose 124 mg/dL (74-106) H D 12/25/16 06:15 Calcium 8.5 mg/dL (8.5-10.1) 12/25/16 06:15 Total Bilirubin 0.4 mg/dL (0.2-1.0) 12/24/16 18:29 AST 17 U/L (15-37) D 12/24/16 18:29 ALT 25 U/L (12-78) D 12/24/16 18:29 Alkaline Phosphatase 84 U/L (45-117) 12/24/16 18:29 Total Protein 6.4 g/dl (6.4-8.2) 12/24/16 18:29 Albumin 3.1 g/dl (3.4-5.0) L 12/24/16 18:29 Current Medications Generic Name Dose Route Start Last Admin Trade Name Freq PRN Reason Stop Dose Admin Albuterol Sulfate 1 amp 12/24/16 22:30 Ventolin 0.083% Nebulizer Soln - NEB Q6H PRN SHORT OF BREATH/WHEEZING Albuterol Sulfate 2 puff 12/24/16 22:45 Ventolin Hfa Inhaler - IH Q4H PRN SHORTNESS OF BREATH Budesonide/Formoterol Fumarate 1 puff 12/25/16 10:00 Symbicort 160/4.5mcg - IH DAILY [facility] Clopidogrel Bisulfate 75 mg 12/25/16 10:00 Plavix - PO DAILY [facility] Digoxin 0.125 mg 12/25/16 10:00 Lanoxin - PO DAILY [facility] Enalapril Maleate 2.5 mg 12/25/16 10:00 Vasotec - PO DAILY [facility] Escitalopram Oxalate 20 mg 12/25/16 10:00 Lexapro - PO DAILY [facility] Heparin Sodium (Porcine) 5,000 unit 12/24/16 22:45 12/25/16 05:52 Heparin - SQ 5,000 unit TID [facility] Administration Insulin Aspart 0 vial 12/25/16 09:30 Novolog Vial Sliding Scale - SQ TIDAC [facility] Protocol Insulin Detemir 34 units 12/25/16 22:00 Levemir Vial SQ HS [facility] Latanoprost 1 drop 12/25/16 22:00 Xalatan 0.005% Eye Drops - OU HS [facility] Melatonin 5 mg 12/24/16 22:26 12/25/16 01:18 Melatonin PO 5 mg HS PRN Administration INSOMNIA Multivit/Ca Carb/B Cmplx/FA/Prenat 1 tablet 12/25/16 10:00 Nephro-Kassie - PO DAILY [facility] Mupirocin 1 applic 12/25/16 10:00 Bactroban 2% Ointment - TP BID [facility] Nicotine 14 mg 12/25/16 10:00 Nicoderm Patch - TD DAILY [facility] Rosuvastatin Calcium 20 mg 12/25/16 22:00 Crestor - PO HS [facility] Tamsulosin HCl 0.4 mg 12/25/16 08:30 12/25/16 08:01 Flomax - PO 0.4 mg DAILY@0830 [facility] Administration Venlafaxine HCl 75 mg 12/25/16 10:00 Effexor Xr - PO DAILY [facility] Home Medications Medication Instructions Recorded Albuterol 0.083% Nebulizer Fatuma 1 amp NEB PRN 12/24/16 [Ventolin 0.083% Nebulizer Soln -] Albuterol Sulfate [Proair 90 mcg IH TID PRN 12/24/16 Respiclick] Bimatoprost [Lumigan] 1 drop OU DAILY 12/24/16 Budesonide/Formeterol Fumarate 2 inh PO BID 12/24/16 [SYMBICORT 160/4.5mcg -] Clopidogrel Bisulfate [Plavix -] 75 mg PO DAILY 12/24/16 Digoxin [Lanoxin -] 0.125 mg PO ASDIR 12/24/16 Enalapril Maleate [Vasotec] 2.5 mg PO ASDIR 12/24/16 Escitalopram Oxalate [Lexapro -] 20 mg PO DAILY 12/24/16 Insulin Glargine,Hum.rec.anlog 34 units SQ HS 12/24/16 [Lantus Solostar PEN (NF)] Insulin Lispro [Humalog] 8 - 30 unit SQ TID 12/24/16 Rosuvastatin Calcium [Crestor] 20 mg PO DAILY 12/24/16 Tamsulosin HCl [Flomax] 0.4 mg PO DAILY 12/24/16 Venlafaxine HCl ER [Effexor Xr -] 75 mg PO DAILY 12/24/16 R foot XR: no radiographic evidence of osteomyelitis, no ST gas ASSESSMENT AND PLAN: Patient is a 76 year old male with PMHx of CAD, IDDM with R great toe ulcer # S/p Total nail avulsion performed by , as per [employer] no exposed bone underlying nail bed, no active bleeding. continue with topical bactroban + daily dressing changes ordered arterial duplex, patient will follow with [employer] as an outpatient by next Thursday. Will discharge the patient on Augmentin 875mg po bid x 10 days with food. Discharge patient today, s/p arterial duplex, reviewed the result , will follow with as an outpatient for Thursday12/29/2016
[2016-12-25] MEDS: INSULIN SLIDING SCALE (NOVOLOG) 1 VIAL SQ SCH ×3 (10:35→17:32)
--- NOTE | 2016-12-25 10:37 | PN ---
Physical Exam: SUBJECTIVE: Patient seen and examined this AM. No new complaints, no pain. No CP , no SOB, no abd pain. Pt to get arterial dopplers today. OBJECTIVE: Vital Signs Period Temp Pulse Resp BP Sys/Garcia Pulse Ox Last 24 Hr 97.9 F-98.0 F 62-98 18-18 139-167/77-87 98-98 GEN: AAOx3, NAD HNT: PERRLA, EOMi, no LAD CV: S1, S2, RRR, no MRG LUNG: Poor air intake, clear to auscultation, no focal abnormalities ABD: Soft, NT, ND, surgical scar from prior surgery MSK: No edema, no erythema, 5/5 strength NEURO: Cranial nerves 2-12 intact, no musculoskeletal deficits, no BLLE vibratory sensation from knee down Laboratory Results - last 24 hr 12/24/16 12/25/16 12/25/16 23:12 05:54 06:15 WBC 5.8 RBC 4.90 Hgb 12.4 Hct 36.6 MCV 74.6 L MCH 25.4 L MCHC 34.0 RDW 20.7 H Plt Count 134 MPV 9.1 Sodium Potassium Chloride Carbon Dioxide Anion Gap BUN Creatinine POC Glucometer 264.09857 130 Random Glucose Hemoglobin A1c % Calcium Digoxin 12/25/16 12/25/16 12/25/16 06:15 06:15 06:15 WBC RBC Hgb Hct MCV MCH MCHC RDW Plt Count MPV Sodium 143 Potassium 4.0 Chloride 113 H Carbon Dioxide 25 Anion Gap 5 L BUN 24 H Creatinine 1.4 H POC Glucometer Random Glucose 124 H D Hemoglobin A1c % 8.5 H D Calcium 8.5 Digoxin 0.6385 L Active Medications Generic Name Dose Route Start Last Admin Trade Name Freq PRN Reason Stop Dose Admin Albuterol Sulfate 1 amp 12/24/16 22:30 Ventolin 0.083% Nebulizer Soln - NEB Q6H PRN SHORT OF BREATH/WHEEZING Albuterol Sulfate 2 puff 12/24/16 22:45 Ventolin Hfa Inhaler - IH Q4H PRN SHORTNESS OF BREATH Budesonide/Formoterol Fumarate 1 puff 12/25/16 10:00 Symbicort 160/4.5mcg - IH DAILY [facility] Clopidogrel Bisulfate 75 mg 12/25/16 10:00 Plavix - PO DAILY [facility] Digoxin 0.125 mg 12/25/16 10:00 Lanoxin - PO DAILY [facility] Enalapril Maleate 2.5 mg 12/25/16 10:00 Vasotec - PO DAILY [facility] Escitalopram Oxalate 20 mg 12/25/16 10:00 Lexapro - PO DAILY [facility] Heparin Sodium (Porcine) 5,000 unit 12/24/16 22:45 12/25/16 05:52 Heparin - SQ 5,000 unit TID [facility] Administration Insulin Aspart 0 vial 12/25/16 09:30 Novolog Vial Sliding Scale - SQ TIDAC [facility] Protocol Insulin Detemir 34 units 12/25/16 22:00 Levemir Vial SQ HS [facility] Latanoprost 1 drop 12/25/16 22:00 Xalatan 0.005% Eye Drops - OU HS [facility] Melatonin 5 mg 12/24/16 22:26 12/25/16 01:18 Melatonin PO 5 mg HS PRN Administration INSOMNIA Multivit/Ca Carb/B Cmplx/FA/Prenat 1 tablet 12/25/16 10:00 Nephro-Kassie - PO DAILY [facility] Mupirocin 1 applic 12/25/16 10:00 Bactroban 2% Ointment - TP BID [facility] Nicotine 14 mg 12/25/16 10:00 Nicoderm Patch - TD DAILY [facility] Rosuvastatin Calcium 20 mg 12/25/16 22:00 Crestor - PO HS [facility] Tamsulosin HCl 0.4 mg 12/25/16 08:30 12/25/16 08:01 Flomax - PO 0.4 mg DAILY@0830 [facility] Administration Venlafaxine HCl 75 mg 12/25/16 10:00 Effexor Xr - PO DAILY [facility] ASSESSMENT/PLAN: Mr. Gates is a 76yo M w/ poorly controlled IDDM, CAD, COPD, who presented with wound on R 1st toe. # R 1st digit wound - Pt has no WBC count, no fever - Given 1 dose of Vanco and Zosyn in ER - Augmentin PO 875mg BID x 10 days - Podiatry saw the patient, removed toe nail and prescribed topical abx - F/u arterial dopplers - F/u wound and blood culture - F/u with podiatry within 2 weeks # IDDM - uncontrolled - BGMs, SSI, home Levemir - A1C 8.5 # COPD - not in an exacerbation - Continue home Albuterol + spiriva # CAD - Continue Digoxin - Continue Plavix # HTN - controlled - Continue Vasotec 2.5mg PO QD # BPH - Continue flomax # Hx of Insomnia - Continue Melatonin # FEN: - Fluids: None - Electrolyte: No abnormalities - Nutrition: DM diet # PPX: - DVT - Heparin 5000U SQ TID - GI - not needed at this time #Dispo - F/u arterial dopplers - Likely d/c today
[2016-12-25] MEDS ORDERED: MUPIROCIN 2% TOPICAL OINTMENT 22 GM TUBE TP SCH (10:45)
[2016-12-25 13:52] VITALS: TEMP 97.7
--- NOTE | 2016-12-25 14:54 | EKG ---
Test Reason : Blood Pressure : / mmHG Vent. Rate : 069 BPM Atrial Rate : 069 BPM P-R Int : 252 ms QRS Dur : 128 ms QT Int : 458 ms P-R-T Axes : 093 -13 105 degrees QTc Int : 490 ms SINUS RHYTHM WITH 1ST DEGREE A-V BLOCK NON-SPECIFIC INTRA-VENTRICULAR CONDUCTION BLOCK CANNOT RULE OUT ANTERIOR INFARCT (CITED ON OR BEFORE 24-JUL-2016) T WAVE ABNORMALITY, CONSIDER LATERAL ISCHEMIA ABNORMAL ECG WHEN COMPARED WITH ECG OF 24-JUL-2016 16:19, PREMATURE VENTRICULAR COMPLEXES ARE NO LONGER PRESENT Confirmed by CONOR DELANEY MD ([id number]) on 12/25/2016 2:54:44 PM Referred By: Confirmed By:CONOR DELANEY MD
--- NOTE | 2016-12-25 16:06 | DS ---
Physical Exam: SUBJECTIVE: Patient seen and examined OBJECTIVE: Vital Signs Period Temp Pulse Resp BP Sys/Garcia Pulse Ox Last 24 Hr 97.7 F-98.0 F 50-98 18-18 139-167/63-87 98-98 PHYSICAL EXAM GEN: AAOx3, NAD HNT: PERRLA, EOMi, no cervical LAD CV: S1, S2, RRR, no MRG LUNG: CTABL MSK: R 1st toe is wrapped, nail was taken off, slight redness, non-cellulitic NEURO: CN 2-12 intact, no vibratory sensation from knee down bilaterally, MSK 5/ 5, Reflexes 2+ LABS Laboratory Results - last 24 hr 12/24/16 12/25/16 12/25/16 23:12 05:54 06:15 WBC 5.8 RBC 4.90 Hgb 12.4 Hct 36.6 MCV 74.6 L MCH 25.4 L MCHC 34.0 RDW 20.7 H Plt Count 134 MPV 9.1 Sodium Potassium Chloride Carbon Dioxide Anion Gap BUN Creatinine POC Glucometer 264.45614 130 Random Glucose Hemoglobin A1c % Calcium Digoxin 12/25/16 12/25/16 12/25/16 06:15 06:15 06:15 WBC RBC Hgb Hct MCV MCH MCHC RDW Plt Count MPV Sodium 143 Potassium 4.0 Chloride 113 H Carbon Dioxide 25 Anion Gap 5 L BUN 24 H Creatinine 1.4 H POC Glucometer Random Glucose 124 H D Hemoglobin A1c % 8.5 H D Calcium 8.5 Digoxin 0.6385 L 12/25/16 12:16 WBC RBC Hgb Hct MCV MCH MCHC RDW Plt Count MPV Sodium Potassium Chloride Carbon Dioxide Anion Gap BUN Creatinine POC Glucometer 221 Random Glucose Hemoglobin A1c % Calcium Digoxin HOSPITAL COURSE: Date of Admission:12/24/16 Date of Discharge: 12/25/16 Mr. Gates is a 76yo M w/ poorly controlled IDDM, CAD, COPD, who presented with wound on R 1st toe. # R 1st digit wound - He was given antibiotics in the ER. He did not mount a WBC count, had no fever. Podiatry (Dr. Tran) saw the patient in the hospital and removed the toenail and prescribed topical antibiotics. Arterial dopplers were done on the patient which showed chronic lower leg insufficiency, L worse than R. The patient was discharged with Augmentin PO 875mg BID x 10 days. He will followup with Podiatry within 2 weeks. For all other chrnoic medical problems, the patient was placed on his home medications The patient was aware of the hospital courser and agrees with the plan to be discharged home. Minutes to complete discharge: 55 Discharge Summary Reason For Visit: DIABETIC FOOT ULCER Current Active Problems Diabetic foot ulcer (Acute) Condition: Improved - Instructions Diet, Activity, Other Instructions: - Please check your glucose 3 times a day and follow your sliding scale insulin - Continue to take your levemir at night - Follow a diabetic diet - Please continue to exercise to improve circulation in your feet - Check your feet everyday for new ulcers - Be careful when you are bare feet - Do not smoke, it is bad for your lungs - Continue to keep yourself hydrated NEW MEDICATIONS - Take Augmentin 875mg BID for 10 days - Apply Bactroban cream daily with daily dressing changes - Take Vitamin B complex daily FOLLOWUP - Followup with Dr. Tran (county health officer) on ThursdayJanuary 06, his address is in the packet - Followup with your Primary Care doctor within 2 weeks - Followup with Dr. Moreira (a vascular surgeon) this ThursdayDECEMBER 29 for your legs, your old vascular surgeon does not practice anymore Referrals: Fredis Osborn MD [Staff Physician] - 2 Weeks Vikash Guerra MD [Primary Care Provider] - 2 Weeks (Please review arterial doppler with the patient, which shows diminished flow in BLLE) Timoteo Moreira MD [Staff Physician] - 1 Week (New patient, was a patient of Dr. Wakefield? Hx of BLLE grafts, arterial dopplers show low arterial circulation) Disposition: HOME - Home Medications Comprehensive Discharge Medication List: Ambulatory Orders Albuterol 0.083% Nebulizer Fatuma [Ventolin 0.083% Nebulizer Soln -] 1 amp NEB PRN 12/24/16 Albuterol Sulfate [Proair Respiclick] 90 mcg IH TID PRN 12/24/16 Bimatoprost [Lumigan] 1 drop OU DAILY 12/24/16 Budesonide/Formeterol Fumarate [SYMBICORT 160/4.5mcg -] 2 inh PO BID 12/24/16 Clopidogrel Bisulfate [Plavix -] 75 mg PO DAILY 12/24/16 Digoxin [Lanoxin -] 0.125 mg PO ASDIR 12/24/16 Enalapril Maleate [Vasotec] 2.5 mg PO ASDIR 12/24/16 Escitalopram Oxalate [Lexapro -] 20 mg PO DAILY 12/24/16 Insulin Glargine,Hum.rec.anlog [Lantus Solostar PEN -] 34 units SQ HS 12/24/16 Rosuvastatin Calcium [Crestor] 20 mg PO DAILY 12/24/16 Tamsulosin HCl [Flomax] 0.4 mg PO DAILY 12/24/16 Venlafaxine HCl ER [Effexor Xr -] 75 mg PO DAILY 12/24/16 Amoxicillin/Potassium Clav [Augmentin 875-125 Tablet] 1 each PO BID #20 tablet 12/25/16 Insulin Lispro [Humalog Kwikpen U-100] 12 - 26 unit SQ TID #1 units 12/25/16 Mupirocin Ointment [Bactroban 2% Ointment -] 1 applic TP BID #30 applic Vitamin B Comp W-C [Nephro-Kassie -] 1 tablet PO DAILY #30 tablet 12/25/16
[2016-12-25 17:12] VITALS: BP 137/62; PULSE 57
[2016-12-25] MEDS ORDERED: LATANOPROST 0.005% OPHTH SOLN 2.5ML BOTTLE OU SCH (22:00)
[2016-12-25] MEDS ORDERED: ROSUVASTATIN CA 20 MG TABLET (FP) PO SCH (22:00)
[2016-12-25] MEDS ORDERED: INSULIN DETEMIR 100 UNITS/ML MDV SQ SCH ×3 (22:00)
== END 2016-12-25 18:37 | disposition home or self-care (01) ==
LOC: JER 17:28 → JERBED 23:07 → UNDOADMOB 23:54 → JERBED 23:54 → J8W 12-25 00:25
PROVIDERS: ADMIT Internal Medicine; ATTEND Internal Medicine
PROC: 0HDRXZZ Extraction of Toe Nail, External Approach (ICD-10-PCS; principal; 2016-12-24)
PROC: 3E03329 Introduction of Other Anti-infective into Peripheral Vein, Percutaneous Approach (ICD-10-PCS; 2016-12-24)
PROC: 3E0337Z Introduction of Electrolytic and Water Balance Substance into Peripheral Vein, Percutaneous Approach (ICD-10-PCS; 2016-12-24)
PROC: 3E013GC Introduction of Other Therapeutic Substance into Subcutaneous Tissue, Percutaneous Approach (ICD-10-PCS; 2016-12-24)
PROC: 3E0F7GC Introduction of Other Therapeutic Substance into Respiratory Tract, Via Natural or Artificial Opening (ICD-10-PCS; 2016-12-24)
DX: E11.621 Type 2 diabetes mellitus with foot ulcer (principal); E11.65 Type 2 diabetes mellitus with hyperglycemia; L97.519 Non-pressure chronic ulcer of other part of right foot with unspecified severity; Z79.4 Long term (current) use of insulin; I25.2 Old myocardial infarction; I50.9 Heart failure, unspecified; I10 Essential (primary) hypertension; E78.00 Pure hypercholesterolemia, unspecified; F17.210 Nicotine dependence, cigarettes, uncomplicated; J45.909 Unspecified asthma, uncomplicated; J44.9 Chronic obstructive pulmonary disease, unspecified; N40.0 Benign prostatic hyperplasia without lower urinary tract symptoms; M19.90 Unspecified osteoarthritis, unspecified site; G47.00 Insomnia, unspecified; D64.9 Anemia, unspecified; Z95.5 Presence of coronary angioplasty implant and graft; Z95.1 Presence of aortocoronary bypass graft; Z79.01 Long term (current) use of anticoagulants; Z88.8 Allergy status to other drugs, medicaments and biological substances; Z99.89 Dependence on other enabling machines and devices; Z86.14 Personal history of Methicillin resistant Staphylococcus aureus infection; Z85.118 Personal history of other malignant neoplasm of bronchus and lung
CPT/HCPCS: 36415; 71010-TC; 73660-TC; 80048; 80053; 80162; 83036; 85025; 85027; 85651; 86140; 87040; 87070; 87077; 87186; 87205; 93005; 93010; 93925-TC; 99284-25; G0378; J1644

== ENCOUNTER 2017-02-05 12:23 | Day surgery (SDC) | payer OTHER, MEDICARE ==
[2017-02-04 13:43] VITALS: BMI 24.7
[2017-02-05] MEDS ORDERED: HEPARIN NA (PORCINE) 5,000 UNITS/ML 1ML VIAL ONE ×2 (14:58→15:56)
[2017-02-05] MEDS ORDERED: LIDOCAINE HCL 1%, 10 MG/ML (20ML VIAL) ONE (14:58)
[2017-02-05] MEDS ORDERED: MIDAZOLAM HCL 2 MG/2 ML SINGLE DOSE VIAL ONE ×2 (15:28→15:34)
[2017-02-05] MEDS ORDERED: ceFAZolin SODIUM 1 GM VIAL IVPB ONE (15:30)
[2017-02-05] MEDS ORDERED: PROPOFOL 20 ML ONE ×2 (15:38→16:14)
[2017-02-05] MEDS ORDERED: ceFAZolin SODIUM 1 GM VIAL ONE (15:42)
--- NOTE | 2017-02-05 16:52 | OP ---
Operative Note - Note: Operative Date: 02/05/17 Pre-Operative Diagnosis: Right lower ext claudication Operation: Aortogram, RLE angiogram, angioplasty of anterior tibial artery Post-Operative Diagnosis: Same as Pre-op Surgeon: Timoteo Moreira Anesthesia: Fractional Estimated Blood Loss (mls): 25 Operative Report Dictated: Yes
--- NOTE | 2017-02-05 16:56 | HP ---
Admitting History and Physical - Admission Chief Complaint: RLE claudication - Past Medical History Cardiovascular: Yes: CAD, CHF, [place], Other (s/p stent) Pulmonary: Yes: Asthma, COPD, Other (CA lung) Gastrointestinal: Yes: Constipation Renal/: Yes: Other (BPH) Heme/Onc: Yes: Cancer (Lung) Musculoskeletal: Yes: Chronic low back pain, Osteoarthritis - Past Surgical History Past Surgical History: Yes: Cholecystectomy - Smoking History Smoking history: Current every day smoker Have you smoked in the past 12 months: Yes Aproximately how many cigarettes per day: 20 - Alcohol/Substance Use Hx Alcohol Use: No - Social History ADL: Independent Home Medications - Allergies Allergies/Adverse Reactions: Allergies Allergy/AdvReac Type Severity Reaction Status Date / Time pregabalin [From Lyrica] AdvReac Verified 12/24/16 17:41 - Home Medications Home Medications: Ambulatory Orders Albuterol 0.083% Nebulizer Fatuma [Ventolin 0.083% Nebulizer Soln -] 1 amp NEB PRN 12/24/16 Albuterol Sulfate [Proair Respiclick] 90 mcg IH TID PRN 12/24/16 Bimatoprost [Lumigan] 1 drop OU DAILY 12/24/16 Budesonide/Formeterol Fumarate [SYMBICORT 160/4.5mcg -] 2 inh PO BID 12/24/16 Clopidogrel Bisulfate [Plavix -] 75 mg PO DAILY 12/24/16 Digoxin [Lanoxin -] 0.125 mg PO ASDIR 12/24/16 Enalapril Maleate [Vasotec] 2.5 mg PO ASDIR 12/24/16 Escitalopram Oxalate [Lexapro -] 20 mg PO HS 12/24/16 Insulin Glargine,Hum.rec.anlog [Lantus Solostar PEN -] 40 units SQ HS 12/24/16 Rosuvastatin Calcium [Crestor] 20 mg PO HS 12/24/16 Tamsulosin HCl [Flomax] 0.4 mg PO HS 12/24/16 Venlafaxine HCl ER [Effexor Xr -] 75 mg PO DAILY 12/24/16 Insulin Lispro [Humalog Kwikpen U-100] 12 - 26 unit SQ TID #1 units 12/25/16 Physical Examination Vital Signs: Vital Signs Temperature 97.6 F 02/05/17 12:50 Pulse Rate 99 H 02/05/17 12:50 Respiratory Rate 18 02/05/17 13:30 Blood Pressure 105/61 02/05/17 12:50 O2 Sat by Pulse Oximetry (%) 98 02/05/17 13:30 Constitutional: Yes: Well Nourished Eyes: Yes: WNL HENT: Yes: WNL Neck: Yes: WNL Cardiovascular: Yes: WNL Respiratory: Yes: WNL Gastrointestinal: Yes: WNL Extremities: Yes: WNL Edema: No Peripheral Pulses WNL: No Integumentary: Yes: WNL Neurological: Yes: WNL ...Motor Strength: WNL Psychiatric: Yes: WNL Assessment/Plan RLE claudication preop US shows disease beyond the bypass. Will need angioplasty today
[2017-02-05 17:51] VITALS: TEMP 97.6
[2017-02-05 19:28] VITALS: BP 143/62; PULSE 73
--- NOTE | 2017-02-12 07:44 | OP ---
DATE OF OPERATION: 02/05/2017 PREOPERATIVE DIAGNOSIS: Right lower extremity claudication. POSTOPERATIVE DIAGNOSIS: Right lower extremity claudication. PROCEDURE PERFORMED: Aortogram, right lower extremity angiogram, anterior tibial artery angioplasty. SURGEON: Timoteo Moy DO ANESTHESIA: Fractional. BLOOD LOSS: 20 mL. INDICATIONS: The patient is a 76-year-old male who has bilateral femoral-popliteal bypasses with veins, done at another institution about 15 years ago. The patient is a current smoker and has been smoking now for about 15 years, since his bypass surgeries. The patient has been coached every day and at every treatment that he should stop smoking because it will lead to progression of his arterial disease and closure of his bypasses. On his last ultrasound done here in the vascular clinic, it was found that he has disease at the origin of the anterior tibial artery beyond where his bypass is attached in the below-knee popliteal artery on the right side. It was decided that he would need an angioplasty of that portion. DESCRIPTION OF PROCEDURE: The patient was consented for the procedure, understanding all risks, benefits and alternatives. He was then taken to the operating room. Once in the operating suite, the patient was laid on the operating table in the supine manner. The areas of the left and right groin were prepped and draped in a sterile surgical manner. We then injected 10 mL of lidocaine 1% over the left common femoral artery. We then went ahead and took our Micropuncture needle and punctured the left common femoral artery. Micropuncture wire was inserted. Micropuncture sheath was inserted. An additional 5-Portuguese sheath was inserted. We then placed a 0.035 floppy guidewire up into the aorta, followed by an Omni Flush catheter. We then shot an aortogram, showing that aorta and iliac arteries were without any disease. We then placed an 0.035 floppy guidewire up and over to the right common femoral artery and our Omni Flush catheter was placed. We then shot an angiogram, showing that the common femoral artery and the profunda were patent. The SFA was obviously occluded. The bypass was patent, all the way down to the below-knee popliteal artery. The below-knee popliteal artery was patent. The origin of the anterior tibial artery and the first 5 cm was severely diseased, about 80% to 85%, and beyond that there was another area that was 80% stenosis of the anterior tibial artery. The anterior tibial artery was the main runoff into the foot. At this point we placed a 0.035 stiff guidewire and we were able to selectively cannulate it into the bypass. We then took our Omni Flush catheter and placed a 6 x 45 Crossover sheath. We then went ahead and used our Quick-Cross catheter and brought the wire down and brought it through the distal anastomosis and into the anterior tibial artery and we exchanged the wire for an 0.014 Chief Telephone Operator wire. We then administered 5000 units of IV heparin to the patient. We then went ahead and used a 3 x 6 Ultraverse balloon and performed angioplasty of the anterior tibial artery. Completion angiogram now showed that the anterior tibial artery was patent. There were no areas of recoil. We were able to angioplasty both areas that had stenosis, and the patient had a palpable pulse now with runoff. At this point we brought our sheath up and over, and a StarClose device was successfully deployed in the left common femoral artery. Pressure was held for 5 minutes. Afterwards there was no bleeding. The area was wet and dried, and Dermabond was placed. The patient tolerated the procedure with no complication. The patient was transferred to the PACU in stable condition. Total blood loss was 20 mL. The patient now has a palpable pulse in the right DP. TIMOTEO MOY DO [id number]
== END 2017-02-05 18:45 | disposition home or self-care (01) ==
LOC: JASU-SURG 12:23
PROVIDERS: ATTEND Surgery Vascular Surgery
PROC: 047P3ZZ Dilation of Right Anterior Tibial Artery, Percutaneous Approach (ICD-10-PCS; principal; 2017-02-05 13:45)
DX: I70.211 Atherosclerosis of native arteries of extremities with intermittent claudication, right leg (principal)
CPT/HCPCS: 37228; C1725; 76000-TC; 94760; J1644

== ENCOUNTER 2017-05-07 19:44 | Inpatient (IN) | payer OTHER, MEDICARE ==
[2017-05-07 20:10] VITALS: BMI 25.1
--- NOTE | 2017-05-07 20:41 | PDOC ---
History of Present Illness - General History Source: Patient Exam Limitations: No Limitations - History of Present Illness Initial Comments: 05/07/17 22:49 Patient is a 76 year old female with a significant past medical history of COPD , CHF (triple bypass), Diabetes, Achalasia Hyperlipidemia, who presents to the ED with complaints of SOB that began 5 weeks ago. Patient reports experiencing worsening SOB that has increasingly gotten worse over the last 2 weeks. He reports experiencing worsening productive cough that began 2 weeks ago. As per patient's , patient filled up 2.5 cups of coughed up mucus. He reports experiencing slight fever that he states has gotten worse over the last 5 days, stating the last temperature was 100.7. Patient reports both his and son currently have coughs but he is unsure if he they are the same sickness. He reports experiencing chronic fatigue and general malaise, stating he is unable to walk, lay flat, or walk long distances without feeling SOB. Denies chest pain, SOB. Denies nausea, vomiting. Denies contact with sick individuals, out of state travel. Denies any other symptoms. Allergies: Pregabalin. Social history: Current smoker (60 packs per year). No alcohol. No illicit drugs. Surgical history: Appendix removal. Gallbladder removal. Bypass legs bilaterally. PMD: Dr. guerra Pocketed Spring Machine Operator: Dr. Ramírez Rug Renovator: Dr. Strange <Marito Carvajal - Last Filed: 05/07/17 22:49> <Bradford Carvalho - Last Filed: 05/08/17 00:22> - General Chief Complaint: Respiratory Stated Complaint: PAIN Time Seen by Provider: 05/07/17 20:21 Past History <Marito Carvajal - Last Filed: 05/07/17 22:49> - Past Medical History Anemia: Yes Asthma: Yes Cancer: No (family h/o leukemia) Cardiac Disorders: Yes (4 stents) CVA: No COPD: Yes CHF: Yes Dementia: No Diabetes: Yes GI Disorders: Yes (ESOPHAGEAL DYSMOTILITY, GASTRITIS, H-PYLORI) Disorders: Yes (PROSTATE BX) HTN: Yes Hypercholesterolemia: Yes Kidney Stones: No Liver Disease: No Psychiatric Problems: No Seizures: No Thyroid Disease: No Lung CA: No - Surgical History Abdominal Surgery: Yes (PARTIAL GASTRECTOMY,H/O ULCERS EGD BIOPSY 2009,EGD H- PYLORI 2006,COLON 2003) Appendectomy: Yes Cardiac Surgery: Yes (cabg) Cholecystectomy: Yes Lung Surgery: No Neurologic Surgery: No Orthopedic Surgery: No - Family Disease History Family Disease History: Heart Disease: Father - Reproductive History Testicular Surgery: Yes - Immunization History Immunization Up to Date: Yes - Suicide/Smoking/Psychosocial Hx Smoking Status: Yes Smoking History: Former smoker Years of Tobacco Use: 50 Have you smoked in the past 12 months: No Number of Cigarettes Smoked Daily: 20 Information on smoking cessation initiated: No 'Breaking Loose' booklet given: 02/05/17 Hx Alcohol Use: No Drug/Substance Use Hx: No Substance Use Type: None Hx Substance Use Treatment: No <Bradford Carvalho - Last Filed: 05/08/17 00:22> - Past Medical History Allergies/Adverse Reactions: Allergies Allergy/AdvReac Type Severity Reaction Status Date / Time pregabalin [From Lyrica] AdvReac Verified 05/07/17 20:04 Home Medications: Ambulatory Orders Albuterol 0.083% Nebulizer Fatuma [Ventolin 0.083% Nebulizer Soln -] 1 amp NEB PRN 12/24/16 Albuterol Sulfate [Proair Respiclick] 90 mcg IH TID PRN 12/24/16 Bimatoprost [Lumigan] 1 drop OU DAILY 12/24/16 Budesonide/Formeterol Fumarate [SYMBICORT 160/4.5mcg -] 2 inh PO BID 12/24/16 Clopidogrel Bisulfate [Plavix -] 75 mg PO DAILY 12/24/16 Digoxin [Lanoxin -] 0.125 mg PO ASDIR 12/24/16 Enalapril Maleate [Vasotec] 2.5 mg PO ASDIR 12/24/16 Escitalopram Oxalate [Lexapro -] 20 mg PO HS 12/24/16 Insulin Glargine,Hum.rec.anlog [Lantus Solostar PEN -] 50 units SQ HS 12/24/16 Rosuvastatin Calcium [Crestor] 20 mg PO HS 12/24/16 Tamsulosin HCl [Flomax] 0.4 mg PO HS 12/24/16 Venlafaxine HCl ER [Effexor Xr -] 75 mg PO DAILY 12/24/16 Insulin Lispro [Humalog Kwikpen U-100] 12 - unit SQ TID #1 units 12/25/16 Review of Systems - Review of Systems Constitutional: Yes: Fever (100.7 5d ago). No: Chills, Night Sweats Respiratory: Yes: Cough, Shortness of Breath Cardiac (ROS): No: Chest Pain, Edema, Syncope ABD/GI: No: Diarrhea, Nausea, Vomiting Neurological: No: Headache All Other Systems: Reviewed and Negative <Bradford Carvalho - Last Filed: 05/08/17 00:22> *Physical Exam - Vital Signs Last Vital Signs Temp Pulse Resp BP Pulse Ox 98.4 F 104 H 24 170/83 98 05/07/17 20:09 05/07/17 21:36 05/07/17 21:36 05/07/17 21:36 05/07/17 21:38 - Physical Exam Comments: 05/07/17 22:50 GENERAL: The patient is awake, alert, and fully oriented, in no acute distress. HEAD: Normal with no signs of trauma. EYES: Pupils equal, round and reactive to light, extraocular movements intact, sclera anicteric, conjunctiva clear with no pallor. ENT: Ears normal, nares patent, oropharynx clear without exudates. Moist mucous membranes. NECK: Normal range of motion, supple without lymphadenopathy, JVD, or masses. LUNGS: +Coarse inspiratory breath sounds. +Bilateral inspiratory Crackles. + Slightly tachypnea Breath sounds equal, No wheeze. HEART: Regular rate and rhythm, normal S1 and S2 without murmur or rub. ABDOMEN: Soft/nontender/nondistended. BS wnl. No guarding or rebound. No palpable masses. No hepatosplenomegaly. EXTREMITIES: Normal range of motion, no edema. No clubbing or cyanosis. No cords, erythema, or tenderness. NEUROLOGICAL: Cranial nerves II through XII grossly intact. Normal speech, normal gait. PSYCH: Normal mood, normal affect. SKIN: Warm, Dry, normal turgor, no rashes or lesions noted. <Marito Carvajal - Last Filed: 05/07/17 22:49> - Vital Signs Last Vital Signs Temp Pulse Resp BP Pulse Ox 98.4 F 104 H 22 148/73 95 05/07/17 20:09 05/07/17 20:09 05/07/17 20:09 05/07/17 20:09 05/07/17 20:09 <Bradford Carvalho - Last Filed: 05/08/17 00:22> Heart Score/ECG Review #1 ECG reviewed & interpreted by me at: 21:33 General ECG Interpretation: Sinus Rhythm, Normal Rate (99), Normal Intervals ( 1st degree AV block, nonspecific intraventricular conduction delay QRS 124), No acute ischemic changes (lateral TWI, anteroseptal infarct with CELSO unchanged from prior) Compared to previous ECG there are: No significant change (c/w 12/24/16) <Bradford Carvalho - Last Filed: 05/08/17 00:22> ED Treatment Course - LABORATORY CBC & Chemistry Diagram: 05/07/17 21:00 05/07/17 21:00 - ADDITIONAL ORDERS Additional order review: Laboratory Results 05/07/17 05/07/17 21:00 21:00 PT with INR 12.40 H INR 1.10 Sodium 138 Potassium 4.1 Chloride 109 H Carbon Dioxide 21 Anion Gap 8 BUN 20 H D Creatinine 1.3 Creat Clearance w eGFR 53.96 Random Glucose 259 H Calcium 8.1 L Magnesium 1.8 Total Bilirubin 0.8 D AST 14 L D ALT 23 D Alkaline Phosphatase 88 Creatine Kinase 54 Troponin I 0.04 D B-Natriuretic Peptide 7633.30 H Total Protein 6.8 Albumin 3.0 L 05/07/17 21:00 RBC 4.63 MCV 81.1 MCHC 32.2 RDW 17.8 H MPV 8.5 Neutrophils % 83.8 H Lymphocytes % 9.2 D Monocytes % 5.7 Eosinophils % 0.8 Basophils % 0.5 - Medications Given in the ED: ED Medications Discontinued Medications Generic Name Dose Route Start Last Admin Trade Name Freq PRN Reason Stop Dose Admin Albuterol/Ipratropium 1 amp 05/07/17 20:45 05/07/17 21:31 Duoneb - NEB 05/07/17 21:01 1 amp Q15M KADEEM Administration Aspirin 162 mg 05/07/17 20:42 05/07/17 20:00 Asa - PO 05/07/17 20:43 162 mg ONCE ONE Administration Methylprednisolone Sodium Succinate 125 mg 05/07/17 21:03 05/07/17 21:31 Solu-Medrol - IVPB 05/07/17 21:04 125 mg ONCE ONE Administration <Marito Carvajal - Last Filed: 05/07/17 22:49> - LABORATORY CBC & Chemistry Diagram: 05/07/17 21:00 05/07/17 21:00 <Bradford Carvalho - Last Filed: 05/08/17 00:22> Medical Decision Making - Medical Decision Making 05/07/17 21:13 A portion of this note was documented by scribe services under my direction. I have reviewed the details of the note, within reason, and agree with the documentation with the following case summary and management plan written by me. 76-year-old male with history of COPD, CHF/COPD, renal insufficiency presents with 4-5 weeks of progressive cough and shortness of breath with severe dyspnea on exertion. Cough productive of phlegm, had previous nasal congestion but now resolved, presenting now predominantly with dyspnea and persistent cough. Had low-grade fever of 100.7 5 days ago, none since then. Has not noted any wheezing , has his baseline orthopnea, no edema. The patient did see Dr. 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 Afebrile, O2 sat 95% on room air Speaking full sentences, no acute distress Slight inspiratory crackles bilaterally, no focally decreased breath sounds or wheezing or prolonged expiration No edema 76-year-old male with progressive dyspnea and cough over the last several weeks , afebrile here. Seems most consistent with upper respiratory infection and COPD exacerbation, question CHF exacerbation in this setting as well. Rule out pneumonia, rule out influenza. Labs EKG, chest x-ray Trial of nebulizers and steroids Reassess. Likely admission given his severe deviation from his baseline and very limited exercise tolerance, unable to care for himself at home. 05/07/17 22:42 No leukocytosis, creatinine 1.3 which is baseline. Troponin negative, BNP 7000 which is near baseline On my preliminary review of the chest x-ray, slightly increased vascular congestion without focal infiltrate. Will proceed with admission for presumed COPD/CHF exacerbation. PMD Mari hospitalist called. 05/08/17 00:22 Accepted for obs tele by Dr. Prado. <Bradford Carvalho - Last Filed: 05/08/17 00:22> *DC/Admit/Observation/Transfer - Attestations Scribe Attestion: 05/07/17 22:50 Documentation prepared by Marito Carvaajl, acting as medical record specialist for Bradford Carvalho MD, MD/DO. <Marito Carvajal - Last Filed: 05/07/17 22:49> - Discharge Dispostion Admit: Yes <Bradford Carvalho - Last Filed: 05/08/17 00:22> Diagnosis at time of Disposition: COPD exacerbation Dyspnea Qualifiers: Dyspnea type: dyspnea on exertion Qualified Code(s): R06.09 - Other forms of dyspnea - Discharge Dispostion Condition at time of disposition: Fair - Referrals Referrals: Vikash Guerra MD [Primary Care Provider] - - Patient Instructions - Post Discharge Activity
[2017-05-07] MEDS ORDERED: ASPIRIN 81 MG CHEWABLE TABLETS PO ONE (20:42)
[2017-05-07] MEDS ORDERED: ALBUTEROL SO4 2.5/IPRATROPIUM 0.5 INH SOL 3 ML VIAL.NEB. NEB ONE ×2 (21:00→21:32)
[2017-05-07] MEDS ORDERED: ASPIRIN 81 MG CHEWABLE TABLETS ONE (21:00)
[2017-05-07] MEDS: ALBUTEROL SO4 2.5/IPRATROPIUM 0.5 INH SOL 3 ML VIAL.NEB. NEB SCH ×2 (21:00→21:31)
[2017-05-07] MEDS ORDERED: methylPREDNISolone NA SUCC 125 MG/2 ML VIAL IVPB ONE (21:03)
[2017-05-07] MEDS ORDERED: methylPREDNISolone NA SUCC 125 MG/2 ML VIAL ONE (21:33)
[2017-05-07 21:48] LABS: BASO % 0.5 % (0-2.0); EOS % 0.8 % (0-4.5); HEMATOCRIT 37.5 % (35.4-49); HEMOGLOBIN 12.1 GM/dL (11.7-16.9); LYMPH % 9.2 % (8-40); MCH 26.1 pg (25.7-33.7); MCHC 32.2 g/dl (32.0-35.9); MEAN CELL VOLUME 81.1 fl (80-96); MEAN PLT VOLUME 8.5 fl (7.5-11.1); MONO % 5.7 % (3.8-10.2); NEUT % 83.8 % (42.8-82.8); PLATELET COUNT 179 K/MM3 (134-434); RBC 4.63 M/mm3 (4.00-5.60); RDW 17.8 % (11.9-15.9); WHITE BLOOD COUNT 8.4 K/mm3 (4.0-10.0)
[2017-05-07 22:04] LABS: ANION GAP 8 (8-16); BILIRUBIN,TOTAL 0.8 mg/dL (0.2-1.0); BLOOD UREA NITROGEN 20 mg/dL (7-18); CALCIUM 8.1 mg/dL (8.5-10.1); CHLORIDE 109 mmol/L (98-107); CO2 21 mmol/L (21-32); CREATININE 1.3 mg/dL (0.7-1.3); GLUCOSE,RANDOM 259 mg/dL (74-106); MAGNESIUM 1.8 mg/dL (1.8-2.4); POTASSIUM 4.1 mmol/L (3.5-5.1); SGOT/AST 14 U/L (15-37); SGPT/ALT 23 U/L (12-78); SODIUM 138 mmol/L (136-145); TOT PROT 6.8 g/dl (6.4-8.2)
[2017-05-07 22:05] LABS: INR 1.1 (0.82-1.09); PROTHROMBIN TIME (PATIENT) 12.4 SEC (9.98-11.88)
[2017-05-07 22:07] LABS: ALK PHOS 88 U/L (45-117)
--- NOTE | 2017-05-07 23:29 | HP ---
CHIEF COMPLAINT: Worsening cough, SOB x 5weeks PCP: Dr. Aguilera HISTORY OF PRESENT ILLNESS: 76 yo man w/ pmh of CAD (CABG 10yrs ago w/ triple bypass, cath w/ stents x4), CHF, COPD, IDDM, HTN who presents with five weeks of worsening SOB, 2-3 weeks of productive cough and worsening AVILA over past few days. Pt endorses 5+ weeks of worsening SOB, as well as productive cough over past two weeks which "fills up two cups" as well as wheezing, coarse breath sounds at night w/ 3 pillow orthopnea. In addition, pt endorses worsening VAILA, most notable in the last few days as pt states he cannot walk down the hallway w/o becoming very SOB and fatigue. He also endorses low grade fever last week and chills recently. Endorses mild CP in R upper chest worsened by inspiration and an occasional sensation of chest tightness over the last week or so. Pt has never been admitted for COPD exacerbation in the past or required intubation. He has been admitted twice for CHF exacerbation, most recently 3 years per . Denies SAWYER, palpitations, N/V, abdominal pain, poor PO intake, LE edema, claudications. He does not require home O2, but received chronic tx for COPD. Pt counseled about code status. Wishes for intubation, DNR. Aerial Photograph Interpreter: Dr. Ramírez Software Project Engineer: Dr. Strange ER course was notable for: (1)Afebrile, no WBC count (2)Tachypnea to 24, satting 98% on RA (3)BNP 7633, near baseline Recent Travel: None PAST MEDICAL HISTORY: HTN CAD IDDM COPD CHF BPH Lung Ca OA Chronic Back pain PUD HLD PAST SURGICAL HISTORY: CABG - TRIPLE BYPASS; Cardiac cath w/ stents x4 BL Fem-pop bypasses R popliteal balloon/stent by Dr. 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 Social History: Smokinppd, 50 years Alcohol: Denies Drugs: Denies Family History: Two brothers w/ IN, One brother with arrhythmia Father with IN Allergies pregabalin [From Lyrica] Adverse Reaction (Verified 05/07/17 20:04) HOME MEDICATIONS: Home Medications Medication Instructions Recorded Albuterol 0.083% Nebulizer Fatuma 1 amp NEB PRN 12/24/16 [Ventolin 0.083% Nebulizer Soln -] Albuterol Sulfate [Proair 90 mcg IH TID PRN 12/24/16 Respiclick] Bimatoprost [Lumigan] 1 drop OU DAILY 12/24/16 Budesonide/Formeterol Fumarate 2 inh PO BID 12/24/16 [SYMBICORT 160/4.5mcg -] Clopidogrel Bisulfate [Plavix -] 75 mg PO DAILY 12/24/16 Digoxin [Lanoxin -] 0.125 mg PO ASDIR 12/24/16 Enalapril Maleate [Vasotec] 2.5 mg PO ASDIR 12/24/16 Escitalopram Oxalate [Lexapro -] 20 mg PO HS 12/24/16 Insulin Glargine,Hum.rec.anlog 50 units SQ HS 12/24/16 [Lantus Solostar PEN -] Rosuvastatin Calcium [Crestor] 20 mg PO HS 12/24/16 Tamsulosin HCl [Flomax] 0.4 mg PO HS 12/24/16 Venlafaxine HCl ER [Effexor Xr -] 75 mg PO DAILY 12/24/16 Insulin Lispro [Humalog Kwikpen 12 - 26 unit SQ TID #1 units 12/25/16 U-100] REVIEW OF SYSTEMS CONSTITUTIONAL: fever, chills, Absent: diaphoresis, generalized weakness, malaise, loss of appetite, weight change HEENT: difficulty swallowing, Absent: rhinorrhea, nasal congestion, throat pain, throat swelling, mouth swelling, ear pain, eye pain, visual changes CARDIOVASCULAR: Absent: chest pain, syncope, palpitations, irregular heart rate, lightheadedness , peripheral edema RESPIRATORY: cough, shortness of breath, dyspnea with exertion, orthopnea, wheezing, Absent: stridor, hemoptysis GASTROINTESTINAL: Absent: abdominal pain, abdominal distension, nausea, vomiting, diarrhea, constipation, melena, hematochezia GENITOURINARY: Absent: dysuria, frequency, urgency, hesitancy, hematuria, flank pain, genital pain MUSCULOSKELETAL: Absent: myalgia, arthralgia, joint swelling, back pain, neck pain SKIN: Absent: rash, itching, pallor HEMATOLOGIC/IMMUNOLOGIC: easy bleeding, Absent: easy bruising, lymphadenopathy, frequent infections ENDOCRINE: Absent: unexplained weight gain, unexplained weight loss, heat intolerance, cold intolerance NEUROLOGIC: Absent: headache, focal weakness or paresthesias, dizziness, unsteady gait, seizure, mental status changes, bladder or bowel incontinence PHYSICAL EXAMINATION Vital Signs - 24 hr 05/07/17 05/07/17 05/07/17 20:09 21:36 21:38 Temperature 98.4 F Pulse Rate 104 H Pulse Rate [ 104 H Apical] Respiratory 22 24 Rate Blood Pressure 148/73 Blood Pressure 170/83 [Left Arm] O2 Sat by Pulse 95 98 98 Oximetry (%) GENERAL: Awake, alert, and fully oriented, in no acute distress. HEAD: Normal with no signs of trauma. 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 L pupil round and reactive to light, extraocular movements intact, sclera anicteric, conjunctiva clear. No lid lag. EARS, NOSE, THROAT: Ears normal, nares patent, oropharynx clear without exudates. Moist mucous membranes. NECK: JVD noted. Normal range of motion, supple without lymphadenopathy or masses. LUNGS: Coarse breath sounds BL, diffuse rhonchi. Trace wheezing in upper airways. No accessory muscle use. HEART: Distant heart sounds. Regular rate and rhythm, normal S1 and S2 without murmur, rub or gallop. ABDOMEN: Soft, nontender, not distended, normoactive bowel sounds, no guarding, no rebound, no masses. No hepatomegaly or splenomegaly. MUSCULOSKELETAL: Normal range of motion at all joints. No bony deformities or tenderness. No CVA tenderness. UPPER EXTREMITIES: L forearm scar from radial artery harvesting. 2+ pulses, warm , well-perfused. No cyanosis. No clubbing. No peripheral edema. LOWER EXTREMITIES: 1+ DP, PT pulses BL. Warm, well-perfused. No calf tenderness. No peripheral edema. NEUROLOGICAL: Cranial nerves II-XII intact. Normal speech. Normal gait. 5/5 strength in all extremities, 2+ biceps reflex, sensation to light touch preserved in all extremities. PSYCHIATRIC: Cooperative. Good eye contact. Appropriate mood and affect. SKIN: Warm, dry, normal turgor, no rashes or lesions noted, normal capillary refill. Laboratory Results - last 24 hr CBC, BMP 05/07/17 21:00 05/07/17 21:00 05/07/17 05/07/17 05/07/17 21:00 21:00 21:00 WBC 8.4 RBC 4.63 Hgb 12.1 D Hct 37.5 MCV 81.1 MCH 26.1 MCHC 32.2 RDW 17.8 H Plt Count 179 D MPV 8.5 Neutrophils % 83.8 H Lymphocytes % 9.2 D Monocytes % 5.7 Eosinophils % 0.8 Basophils % 0.5 PT with INR 12.40 H INR 1.10 Sodium 138 Potassium 4.1 Chloride 109 H Carbon Dioxide 21 Anion Gap 8 BUN 20 H D Creatinine 1.3 Creat Clearance w eGFR 53.96 Random Glucose 259 H Calcium 8.1 L Magnesium 1.8 Total Bilirubin 0.8 D AST 14 L D ALT 23 D Alkaline Phosphatase 88 Creatine Kinase 54 Troponin I 0.04 D B-Natriuretic Peptide 7633.30 H Total Protein 6.8 Albumin 3.0 L Microbiology 05/07/17 22:19 Nasopharyngeal Swab Influenza Types A,B Antigen (JOHANNA) - Final 05/07/17 22:19 Nasopharyngeal Swab - Final CXR - Sternotomy wires, BL mild vascular congestion, R hilar prominence. No consolidations, pneumothoraces noted. EKG - Wide QRS. NAD. Rate 100. QTc 479. Twave flattening in lateral leads. Echo 02/20 - low normal EF, mildly dilated LA, mild MR, mild to moderate MA ASSESSMENT/PLAN: 76 yo man w/ pmh of CAD (CABG 10yrs ago w/ triple bypass, cath w/ stents x4), CHF, COPD, IDDM, HTN who presents with five weeks of worsening SOB, 2-3 weeks of productive cough and worsening AVILA over past few days. Pt likely with acute on chronic COPD exacerbation w/ possible concurrent acute on chronic CHF exacerbation. #COPD Exacerbation, r/o PNA - Lasix recently d/c due to episodes of hypotension ; Received solumedrol 125mg x2 in ED; CXR w/ no consolidation - Pulm consulted, recs appreciated - O2 support as required, maintain at sat >92% - c/w home symbicort - Prednisone 40 mg qD - Duoneb QIDR - Ventolin PRN - Trend WBC, fever; monitor for signs of infection - Will give one dose of levaquin 750mg; EKG w/ QTc 479. 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 Johan Menard, PGY1 Visit type - Emergency Visit Emergency Visit: Yes ED Registration Date: 05/08/17 Care time: The patient presented to the Emergency Department on the above date and was hospitalized for further evaluation of their emergent condition. - New Patient This patient is new to me today: Yes Date on this admission: 05/08/17 - Critical Care Critical Care patient: No
--- NOTE | 2017-05-08 00:31 | PN ---
Teaching Attending Note Name of Resident: Mihir Menard ATTENDING PHYSICIAN STATEMENT I saw and evaluated the patient. I reviewed the resident's note and discussed the case with the resident. I agree with the resident's findings and plan as documented. SUBJECTIVE: HPI:productive cough, fever and SOB OBJECTIVE: s1 and S2 RRR no edema lungs crackles abdomen soft non-tender ASSESSMENT AND PLAN: admit to obs/tele start the patient on levofloxacin 750mg daily c/w clopidogrel for the CAD (status post 4 stents and 3 vessel disease and PAD ( s/p stents) prednisone 40mg daily c/w home medication hold furosemide obtain echocardiogram avoid aggressive IVF hydration
[2017-05-08] MEDS ORDERED: ENALAPRIL MALEATE 5 MG TABLET (FP) ONE (01:28)
[2017-05-08] MEDS ORDERED: DIGOXIN 0.125 MG TABLET (FP) ONE (01:28)
[2017-05-08] MEDS ORDERED: ALBUTEROL SO4 0.083% IH SOL 2.5 MG/3 ML VIAL.NEB. NEB PRN (01:30)
[2017-05-08] MEDS ORDERED: ENALAPRIL MALEATE 2.5 MG TABLET (FP) PO SCH (01:30)
[2017-05-08] MEDS: DIGOXIN 0.125 MG TABLET (FP) PO SCH (01:38)
[2017-05-08] MEDS ORDERED: LEVOFLOXACIN 750 MG TABLET PO ONE (03:01)
[2017-05-08] MEDS ORDERED: LEVOFLOXACIN 500 MG TABLET (FP) ONE (04:07)
[2017-05-08] MEDS ORDERED: LEVOFLOXACIN 250 MG TABLET (FP) ONE (04:07)
[2017-05-08] MEDS: ALBUTEROL SO4 2.5/IPRATROPIUM 0.5 INH SOL 3 ML VIAL.NEB. NEB SCH ×4 (06:00→23:15)
[2017-05-08] MEDS: HEPARIN NA (PORCINE) 5,000 UNITS/ML 1ML VIAL SQ SCH ×3 (06:01→22:25)
[2017-05-08] MEDS: INSULIN SLIDING SCALE (NOVOLOG) 1 VIAL SQ SCH ×4 (06:40→22:28)
[2017-05-08] MEDS ORDERED: INSULIN REGULAR HUMAN 100 UNITS/ML *VIAL SQ ONE (08:36)
[2017-05-08] MEDS ORDERED: INSULIN DETEMIR 100 UNITS/ML MDV SQ ONE ×3 (08:37→21:15)
--- NOTE | 2017-05-08 09:21 | EKG ---
Test Reason : Blood Pressure : / mmHG Vent. Rate : 087 BPM Atrial Rate : 087 BPM P-R Int : 238 ms QRS Dur : 124 ms QT Int : 406 ms P-R-T Axes : 066 014 108 degrees QTc Int : 488 ms SINUS RHYTHM WITH 1ST DEGREE A-V BLOCK WITH OCCASIONAL PREMATURE VENTRICULAR COMPLEXES ANTEROSEPTAL INFARCT , AGE UNDETERMINED T WAVE ABNORMALITY, CONSIDER LATERAL ISCHEMIA ABNORMAL ECG WHEN COMPARED WITH ECG OF 07-MAY-2017 21:33, SINUS RHYTHM HAS REPLACED WIDE QRS RHYTHM Confirmed by MELISSA LI MD ([id number]) on 05/08/2017 9:20:42 AM Referred By: Confirmed By:MELISSA LI MD
--- NOTE | 2017-05-08 09:25 | EKG ---
Test Reason : Blood Pressure : / mmHG Vent. Rate : 099 BPM Atrial Rate : 094 BPM P-R Int : 000 ms QRS Dur : 124 ms QT Int : 374 ms P-R-T Axes : 000 -10 109 degrees QTc Int : 479 ms POOR DATA QUALITY, INTERPRETATION MAY BE ADVERSELY AFFECTED NORMAL SINUS RHYTHM WITH 1ST DEGREE A-V BLOCK ANTEROSEPTAL INFARCT , AGE UNDETERMINED T WAVE ABNORMALITY, CONSIDER LATERAL ISCHEMIA ABNORMAL ECG Confirmed by MELISSA LI MD ([id number]) on 05/08/2017 9:24:39 AM Referred By: Confirmed By:MELISSA LI MD
[2017-05-08] MEDS: BUDESONIDE/FORMETEROL FUMARATE 160/4.5 mcg INHALER IH SCH ×2 (09:33→22:35)
[2017-05-08] MEDS: CLOPIDOGREL BISULFATE 75 MG TABLET (FP) PO SCH (09:34)
[2017-05-08 09:47] LABS: ANION GAP 11 (8-16); BLOOD UREA NITROGEN 28 mg/dL (7-18); CHLORIDE 108 mmol/L (98-107); CO2 18 mmol/L (21-32); CREATININE 1.6 mg/dL (0.7-1.3); POTASSIUM 4.6 mmol/L (3.5-5.1); SODIUM 137 mmol/L (136-145)
[2017-05-08] MEDS ORDERED: predniSONE 20 MG TABLET (UD) PO SCH (10:00)
[2017-05-08] MEDS ORDERED: VENLAFAXINE HCL 75 MG E.R. CAPSULES (FP) PO SCH (10:00)
[2017-05-08 10:07] LABS: GLUCOSE,RANDOM 465 mg/dL (74-106)
[2017-05-08] MEDS ORDERED: INSULIN REGULAR HUMAN 100 UNITS/ML *VIAL IVPUSH ONE ×3 (10:42→16:07)
[2017-05-08] MEDS: FUROSEMIDE 40 MG/4 ML INJECTABLE VIAL IVPUSH SCH (11:00)
[2017-05-08 11:16] LABS: ANION GAP 12 (8-16); BLOOD UREA NITROGEN 29 mg/dL (7-18); CALCIUM 8.1 mg/dL (8.5-10.1); CHLORIDE 107 mmol/L (98-107); CO2 17 mmol/L (21-32); CREATININE 1.6 mg/dL (0.7-1.3); POTASSIUM 4.3 mmol/L (3.5-5.1); SODIUM 136 mmol/L (136-145)
--- NOTE | 2017-05-08 11:39 | PN ---
Progress Note (short form) - Note Progress Note: PULMONARY CONSULTATION DICTATED 05/08/17 IMP DYSPNEA ACUTE ON CHRONIC SYSTOLIC HF COPD EXACERBATION ASHD S/P CABG PULMONARY HTN DM HLD ACUTE ON CHRONIC KIDNEY INJURY SMOKER PVD PLAN LASIX INHALED BRONCHODILATORS O2 MONITOR LYTES F/U CHEST X-RAY STRICT I+OS SMOKING CESSATION COUNSELED CARDIOLOGY EVALUATION DR DELVALLE Problem List - Problems (1) COPD exacerbation Code(s): J44.1 - CHRONIC OBSTRUCTIVE PULMONARY DISEASE W (ACUTE) EXACERBATION (2) Dyspnea Code(s): R06.00 - DYSPNEA, UNSPECIFIED Qualifiers: Dyspnea type: dyspnea on exertion Qualified Code(s): R06.09 - Other forms of dyspnea (3) Acute kidney injury Code(s): N17.9 - ACUTE KIDNEY FAILURE, UNSPECIFIED (4) Acute on chronic renal insufficiency Code(s): N28.9 - DISORDER OF KIDNEY AND URETER, UNSPECIFIED; N18.9 - CHRONIC KIDNEY DISEASE, UNSPECIFIED (5) CAD (coronary artery disease) Code(s): I25.10 - ATHSCL HEART DISEASE OF [place] CORONARY ARTERY W/O ANG PCTRS Qualifiers: Coronary Disease-Associated Artery/Lesion type: [place] artery [place] vs. transplanted heart: [place] heart Associated angina: without angina Qualified Code(s): I25.10 - Atherosclerotic heart disease of [place] coronary artery without angina pectoris (6) Congestive heart failure Code(s): I50.9 - HEART FAILURE, UNSPECIFIED Qualifiers: Congestive heart failure type: systolic Congestive heart failure chronicity : chronic Qualified Code(s): I50.22 - Chronic systolic (congestive) heart failure (7) Cough Code(s): R05 - COUGH (8) Hypertension Code(s): I10 - ESSENTIAL (PRIMARY) HYPERTENSION (9) PVD (peripheral vascular disease) Code(s): I73.9 - PERIPHERAL VASCULAR DISEASE, UNSPECIFIED (10) Pulmonary congestion Code(s): R09.89 - OTH SYMPTOMS AND SIGNS INVOLVING THE CIRC AND RESP SYSTEMS (11) Tobacco dependence Code(s): F17.200 - NICOTINE DEPENDENCE, UNSPECIFIED, UNCOMPLICATED (12) Acute decompensated heart failure Code(s): I50.9 - HEART FAILURE, UNSPECIFIED
[2017-05-08 11:45] LABS: URINE APPEARANCE CLEAR; URINE BILIRUBIN NEGATIVE (NEGATIVE); URINE BLOOD 1+ (NEGATIVE); URINE COLOR LTYELLOW; URINE GLUCOSE (UA) 3+ (NEGATIVE); URINE KETONE NEGATIVE (NEGATIVE); URINE LEUK ESTERASE NEGATIVE (NEGATIVE); URINE NITRITE NEGATIVE (NEGATIVE); URINE UROBILINOGEN NEGATIVE mg/dL (0.2-1.0)
[2017-05-08 11:49] LABS: URINE PROTEIN 2+ (NEGATIVE)
[2017-05-08 11:54] LABS: URINE MUCUS RARE
[2017-05-08 11:56] LABS: GLUCOSE,RANDOM 451 mg/dL (74-106)
--- NOTE | 2017-05-08 12:00 | CONSULT ---
Admitting History and Physical - Primary Care Physician PCP: Rajeev Hudson - Admission History of Present Illness: 76 yo man w/ pmh of CAD (CABG 10yrs ago w/ triple bypass, cath w/ stents x4), CHF, COPD, IDDM, HTN who presents with five weeks of worsening SOB, 2-3 weeks of productive cough and worsening AVILA over past few days. Pt likely with acute on chronic COPD exacerbation w/ possible concurrent acute on chronic CHF exacerbation. PULMONARY IMP DYSPNEA ACUTE ON CHRONIC SYSTOLIC HF COPD EXACERBATION ASHD S/P CABG DM HLD ACUTE ON CHRONIC KIDNEY INJURY SMOKER PVD This is my first consult on this pt. Pt reports that for years, when he eats or drinks, food and liquid come back up and he expectorates it. He says it happens more often when he eats and then drinks right afterwards. He says he has not been seen by GI previously. Upon EMR review, he has a h/o of a partial gastrectomy,was followed by Dr. Lyons, and had an UGI 08/2015. h/o Heller myotomy/Achalasia History Source: Patient Limitations to Obtaining History: No Limitations - Past Medical History Cardiovascular: Yes: CAD, CHF, VT, Other (s/p stent) Pulmonary: Yes: Asthma, COPD, Other (CA lung) Gastrointestinal: Yes: Constipation Renal/: Yes: Other (BPH) Heme/Onc: Yes: Cancer (Lung) Musculoskeletal: Yes: Chronic low back pain, Osteoarthritis - Past Surgical History Past Surgical History: Yes: Cholecystectomy - Smoking History Smoking history: Former smoker Have you smoked in the past 12 months: No Aproximately how many cigarettes per day: 20 - Alcohol/Substance Use Hx Alcohol Use: No - Social History ADL: Independent History - Admission Reason For Visit: CONGESTIVE HEART FAILURE - Diagnostics X-ray: Report Reviewed - General Mental Status: Alert and Oriented, Awake and Alert, Able to Follow Commands, Forgetful (possibly. He denied h/o gastrectomy?) Attention: Intact Ability to Follow Directions: Good - Hearing Hearing: Functional Speech Evaluation - Communication Primary Language: LAO Communication: Yes: Within Normal Limits Oral Expression Ability: Yes: No Impairment - Speech Production Able to Make Needs Known: Yes: WNL Intelligibility: Yes: WNL - Speech Characteristics Voice Loudness: Normal Voice Pitch: Yes: Normal Voice Phonatory-based Quality: Yes: Dysphonia (mild) Speech Pattern: Normal Speech Clarity: < 100% Nasal Resonance: Normal Articulation: Yes: Precise - Language/Verbal Expression Able to Respond to Simple Queries: Yes: WNL Able to Communicate Wants and Needs: Yes: WNL Functional Communication Status: Yes: WNL - Swallow Evaluation/Bedside Assessment Current Nutritional Intake: Regular, Thin Liquids Oral Secretions: Yes: WFL Dentition: Yes: Edentulous (lower), Dental Appliance Upper Facial Symmetry at Rest: Symmetrical Facial Symmetry on Retraction: Symmetrical Sensation: Normal Against Resistance Opening: Normal Against Resistance Closing: Normal Pucker Lips: Normal Smile: Normal Lingual Movement: Normal, Symmetric Lingual Speed of Movement: Normal Lingual Movement Strgth Against Opposition: Normal Lingual Movement Characteristics: Normal Velopharyngeal Movement: Normal Laryngeal Elevation: WFL Laryngeal Movement: Able to Palpate Rate of Intake: Impulsive Bolus Size: WFL Labial Seal: WFL Chewing: WFL Oral Prep Time: WFL A-P Transit: WFL Timing of Swallow: WFL Coughing/Throat Clear: Yes (on thin liquid, following chicken.) Recommendations - Speech Evaluation, Impression/Plan Impression: Pt reports food and liquid come back up and he expectorates it,more often when he eats and then drinks right afterwards. h/o Heller myotomy/ Achalasia. Cough noted meal time. - Dysphagia Impressions/Plan Swallowing Skills: Impaired Dysphagia Impressions: Ongoing Evaluation *Silent aspiration: cannot be R/O at bedside Recommendations: GI Consult, MBS w Esophagus
[2017-05-08] MEDS ORDERED: INSULIN SLIDING SCALE (NOVOLOG) 1 VIAL SQ SCH (12:04)
--- NOTE | 2017-05-08 12:54 | CONS ---
DATE OF CONSULTATION: 05/08/2017 PULMONARY CONSULTATION REFERRING PHYSICIAN: Becca Boo MD HISTORY OF PRESENT ILLNESS: The patient is a 76-year-old white male known to me from previous hospitalization as well as office visit with a past medical history of COPD, longstanding history of tobacco use, currently still smoking about half a pack a day, ASHD status post triple bypass, diabetes, achalasia, hyperlipidemia, CHF, admitted to [facility] with increasing shortness of breath and dyspnea on exertion. The patient initially states that he started feeling shortness of breath approximately 5 weeks ago. At the time he had shortness of breath with minimal exertion. Over the past couple of weeks it has progressively been getting worse. Of note is last week his symptoms got progressively worse and he developed left- sided arm pain. 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 For the past couple of days he has been developing increasing shortness of breath, marked dyspnea with minimal exertion, also has cough productive of clear thick mucus. He denies any chest pain. He had a fever and last temperature was apparently 100.7. He denies hemoptysis. He denies any history of DVT or PE in the past. There is no history of recent travel. There is no history of occupational exposure to chemical fumes. PAST MEDICAL HISTORY: Again includes COPD, ASHD, congestive heart failure, diabetes, achalasia, hyperlipidemia. PAST SURGICAL HISTORY: Includes a partial gastrectomy secondary to history of ulcers, prostate biopsy, and CABG. REVIEW OF SYSTEMS: Positive orthopnea, positive dyspnea, positive cough, positive chest tightness, positive wheezing, no palpitations, no nausea, no vomiting, no diaphoresis, positive fever, no lower extremity edema. CURRENT MEDICATIONS: Include Symbicort, Flomax, Vasotec, heparin, Lexapro, Effexor, Albuterol, DuoNeb, Lanoxin, Crestor, Levemir, NovoLog, Lasix, Plavix, Xalatan. PHYSICAL EXAMINATION: General: The patient is a well-developed, well-nourished male, awake, alert, appears comfortable in no acute respiratory distress. Vitals: He is currently afebrile. Blood pressure is 137/71, respiratory rate 18, O2 saturation 97% on room air. HEENT: Examination is normocephalic and atraumatic. Neck: Supple. Heart: Regular, S1, S2. Lungs: Few bibasilar crackles. Abdomen: Soft, bowel sounds positive. Extremities: No cyanosis or edema. LABORATORY DATA: WBC is 8.4, hemoglobin 12.1, hematocrit 37.5, platelet count 179,000. INR is 1. Blood gas not performed. BUN 29, creatinine 1.6. Chest x- ray reveals increased markings bilaterally. BNP is 7633. Echocardiogram reveals LV systolic function severely reduced, severe global hypokinesia left ventricle. There was evidence of pulmonary hypertension with pulmonary artery pressure between 40 mg 50 mmHg. IMPRESSION: 1. Dyspnea multiple factors, one likely decompensated congestive heart failure secondary to severe left ventricular dysfunction. 2. Chronic obstructive pulmonary disease with exacerbation. 3. Diabetes. 4. Hyperlipidemia. PLAN: Continue Lasix, inhaled bronchodilators, supplemental O2, daily weights, cardiology evaluation, cardiac enzymes. LAURA DELVALLE M.D. [id number] MTDD
[2017-05-08 13:55] LABS: ANION GAP 12 (8-16); BLOOD UREA NITROGEN 30 mg/dL (7-18); CALCIUM 8.4 mg/dL (8.5-10.1); CHLORIDE 105 mmol/L (98-107); CO2 18 mmol/L (21-32); CREATININE 1.7 mg/dL (0.7-1.3); POTASSIUM 4.2 mmol/L (3.5-5.1); SODIUM 135 mmol/L (136-145)
[2017-05-08] MEDS ORDERED: FLU VACCINE QUAD 60 MCG/0.5 ML (MDV 17-18) IM ONE (14:00)
--- NOTE | 2017-05-08 14:28 | PN ---
Teaching Attending Note Name of Resident: Bolivar Jay ATTENDING PHYSICIAN STATEMENT I saw and evaluated the patient. I reviewed the resident's note and discussed the case with the resident. I agree with the resident's findings and plan as documented. SUBJECTIVE: SOB has improved, no fever or chills. denies dysuria , has productive cough with brown sputum, He was on lasix but he was taken off it due to hypotension , he thinks 2 weeks ago OBJECTIVE: NAD CV: irreg irreg. no MRG, JVD. Lungs: minimal crackles at R base , good air entry , no wheezing Abd:soft, NT, ND , NL BS . Ext: no edema ASSESSMENT AND PLAN: 76 y/o man with h/o S CHF , HTN, CAD, DM , COPD , and other medical problems who presented with worseningn SOB , and was found to have acute CHF exacerbation and Severely elevated glucose 1- SOB, due to systolic CHF exacerbation , with elevated BNP, JVD, crackles,APRYL , in the setting of holding his out pt lasix. although he has h/o COPD, he does not seem to be in COPD exacerbatio, and the wheezing heard on admission might be due to cardiac asthma . - dc steroids, can always give if condition changes - start 40 mg f IV lasix . - echo reviewed, severely reduced EF - will benefit from ACEI , ARBS but will wait for renal function to stabilize ( not clear if he is onit at home ) - Not sure if he is on BB at home , meds need to be confirmed - cont digoxin if on it - EKG with sinus rhythm, 1st degree AV block and lateral TWI 2- IDDM, with severe hyperglycemia: he does not know what insulin he takes, and whether he took it last night . in Am , gave 5 units of regular insulin IV due to sugar of > 400. repeat sugar and BMP , and US indicate no DKA - now sugar still , 400, gave 10 units of IV - 20 of levemir, will confirm home dose to administer his HS insulin - repeat BMP . 3- APRYL: likely due to prerenal azotemia from heart failure - monitor on diuresis 4- HTN: can't use ACEI or ARB now, will not start BB in acute CHF ( not known if he is on it ) - for now , give norvasc . - if he is on BB , will resume 5- h/o acalasia , speech eval . BMS 6- DVT PX tele
[2017-05-08 16:03] LABS: GLUCOSE,RANDOM 412 mg/dL (74-106)
[2017-05-08 16:59] LABS: ANION GAP 13 (8-16); BLOOD UREA NITROGEN 32 mg/dL (7-18); CALCIUM 8.7 mg/dL (8.5-10.1); CHLORIDE 101 mmol/L (98-107); CO2 20 mmol/L (21-32); CREATININE 1.7 mg/dL (0.7-1.3); SODIUM 134 mmol/L (136-145)
[2017-05-08 17:11] LABS: GLUCOSE,RANDOM 460 mg/dL (74-106)
[2017-05-08] MEDS: INSULIN (NOVOLOG) ASPART 100 UNITS/ML 10ML VIAL SQ ONE ×2 (18:43→18:45)
[2017-05-08] MEDS ORDERED: INSULIN (NOVOLOG) ASPART 100 UNITS/ML 10ML VIAL ONE (18:44)
--- NOTE | 2017-05-08 19:59 | PN ---
Physical Exam: SUBJECTIVE: Patient seen and examined. Pt states that his breathing is improved compared to before coming into the hospital. He denies current cough or wheezing. He denies chest pain, abdominal pain, n/v/d/c, and dysuria. OBJECTIVE: Vital Signs Period Temp Pulse Resp BP Sys/Garcia Pulse Ox Last 24 Hr 97.8 F-98.4 F 77-104 18-24 124-170/71-83 95-98 GENERAL: elderly male, awake, alert, and fully oriented, in no acute distress. HEENT: NC, AT, EOMI NECK: + JVD LUNGS: mild rales at bases, good air flow HEART: Regular rate and rhythm, S1, S2 without murmur, rub or gallop. ABDOMEN: Soft, nontender, nondistended, normoactive bowel sounds, no guarding, no rebound, no hepatosplenomegaly, no masses. EXTREMITIES: 2+ pulses, warm, well-perfused, no edema. NEUROLOGICAL: Cranial nerves II through XII grossly intact. Normal speech, gait not observed. PSYCH: Normal mood, normal affect. SKIN: Warm, dry, normal turgor, no rashes or lesions noted Laboratory Results - last 24 hr 05/07/17 05/07/17 05/07/17 21:00 21:00 21:00 WBC 8.4 RBC 4.63 Hgb 12.1 D Hct 37.5 MCV 81.1 MCH 26.1 MCHC 32.2 RDW 17.8 H Plt Count 179 D MPV 8.5 Neutrophils % 83.8 H Lymphocytes % 9.2 D Monocytes % 5.7 Eosinophils % 0.8 Basophils % 0.5 PT with INR 12.40 H INR 1.10 Sodium 138 Potassium 4.1 Chloride 109 H Carbon Dioxide 21 Anion Gap 8 BUN 20 H D Creatinine 1.3 Creat Clearance w eGFR 53.96 POC Glucometer Random Glucose 259 H Calcium 8.1 L Magnesium 1.8 Total Bilirubin 0.8 D AST 14 L D ALT 23 D Alkaline Phosphatase 88 Creatine Kinase 54 Troponin I 0.04 D B-Natriuretic Peptide 7633.30 H Total Protein 6.8 Albumin 3.0 L Urine Color Urine Appearance Urine pH Ur Specific [place] Urine Protein Urine Glucose (UA) Urine Ketones Urine Blood Urine Nitrite Urine Bilirubin Urine Urobilinogen Ur Leukocyte Esterase Urine WBC (Auto) Urine RBC (Auto) Urine Mucus 05/08/17 05/08/17 05/08/17 01:38 06:09 07:48 WBC RBC Hgb Hct MCV MCH MCHC RDW Plt Count MPV Neutrophils % Lymphocytes % Monocytes % Eosinophils % Basophils % PT with INR INR Sodium Cancelled Potassium Cancelled Chloride Cancelled Carbon Dioxide Cancelled Anion Gap Cancelled BUN Cancelled Creatinine Cancelled Creat Clearance w eGFR POC Glucometer > 400 > 400 Random Glucose Cancelled Calcium Cancelled Magnesium Total Bilirubin AST ALT Alkaline Phosphatase Creatine Kinase 48 Troponin I 0.04 B-Natriuretic Peptide Total Protein Albumin Urine Color Urine Appearance Urine pH Ur Specific [place] Urine Protein Urine Glucose (UA) Urine Ketones Urine Blood Urine Nitrite Urine Bilirubin Urine Urobilinogen Ur Leukocyte Esterase Urine WBC (Auto) Urine RBC (Auto) Urine Mucus 05/08/17 05/08/17 05/08/17 08:25 09:45 10:53 WBC RBC Hgb Hct MCV MCH MCHC RDW Plt Count MPV Neutrophils % Lymphocytes % Monocytes % Eosinophils % Basophils % PT with INR INR Sodium 137 136 Potassium 4.6 4.3 Chloride 108 H 107 Carbon Dioxide 18 L 17 L Anion Gap 11 12 BUN 28 H D 29 H Creatinine 1.6 H D 1.6 H Creat Clearance w eGFR POC Glucometer Random Glucose 465 H* D 451 H* Calcium 8.0 L 8.1 L Magnesium Total Bilirubin AST ALT Alkaline Phosphatase Creatine Kinase Troponin I B-Natriuretic Peptide Total Protein Albumin Urine Color Ltyellow Urine Appearance Clear Urine pH 5.0 Ur Specific [place] 1.017 Urine Protein 2+ H Urine Glucose (UA) 3+ H Urine Ketones Negative Urine Blood 1+ H Urine Nitrite Negative Urine Bilirubin Negative Urine Urobilinogen Negative Ur Leukocyte Esterase Negative Urine WBC (Auto) 4 Urine RBC (Auto) 1 Urine Mucus Rare 05/08/17 05/08/17 12:40 16:00 WBC RBC Hgb Hct MCV MCH MCHC RDW Plt Count MPV Neutrophils % Lymphocytes % Monocytes % Eosinophils % Basophils % PT with INR INR Sodium 135 L 134 L Potassium 4.2 5.0 Chloride 105 101 Carbon Dioxide 18 L 20 L Anion Gap 12 13 BUN 30 H 32 H Creatinine 1.7 H 1.7 H Creat Clearance w eGFR POC Glucometer Random Glucose 412 H* 460 H* Calcium 8.4 L 8.7 Magnesium Total Bilirubin AST ALT Alkaline Phosphatase Creatine Kinase Troponin I B-Natriuretic Peptide Total Protein Albumin Urine Color Urine Appearance Urine pH Ur Specific [place] Urine Protein Urine Glucose (UA) Urine Ketones Urine Blood Urine Nitrite Urine Bilirubin Urine Urobilinogen Ur Leukocyte Esterase Urine WBC (Auto) Urine RBC (Auto) Urine Mucus Active Medications Generic Name Dose Route Start Last Admin Trade Name Freq PRN Reason Stop Dose Admin Albuterol Sulfate 1 amp 05/08/17 01:30 Ventolin 0.083% Nebulizer Soln - NEB PRN PRN Albuterol/Ipratropium 1 amp 05/08/17 06:00 05/08/17 18:13 Duoneb - NEB 1 amp QIDR [facility] Administration Amlodipine Besylate 2.5 mg 05/09/17 10:00 Norvasc - PO DAILY [facility] Budesonide/Formoterol Fumarate 2 puff 05/08/17 10:00 05/08/17 09:33 Symbicort 160/4.5mcg - IH Not Given BID [facility] Clopidogrel Bisulfate 75 mg 05/08/17 10:00 05/08/17 09:34 Plavix - PO 75 mg DAILY [facility] Administration Digoxin 0.125 mg 05/08/17 01:30 05/08/17 01:38 Lanoxin - PO 0.125 mg ASDIR [facility] Administration Furosemide 40 mg 05/08/17 10:30 05/08/17 11:00 Lasix Injection - IVPUSH 40 mg DAILY [facility] Administration Heparin Sodium (Porcine) 5,000 unit 05/08/17 06:00 05/08/17 14:28 Heparin - SQ 5,000 unit TID [facility] Administration Insulin Aspart 1 vial 05/08/17 18:20 Novolog Vial Sliding Scale - SQ ACHS [facility] Protocol Insulin Detemir 30 units 05/08/17 22:00 Levemir Vial SQ HS [facility] Latanoprost 1 drop 05/08/17 22:00 Xalatan 0.005% Eye Drops - OU HS [facility] Rosuvastatin Calcium 20 mg 05/08/17 22:00 Crestor - PO HS [facility] Tamsulosin HCl 0.4 mg 05/08/17 22:00 Flomax - PO HS [facility] ASSESSMENT/PLAN: 76M w/ hx of sytolic CHF, HTN, CAD, IDDM, COPD, BPH, OA, chronic back pain, PUD , and HLD who presented with worsening SOB, and was found to have acute CHF exacerbation and severe hyperglycemia. #SOB -likely 2/2 systolic CHF exacerbation 2/2 discontinuing home lasix bc of hypotension - start 40 mg f IV lasix - echo: severely reduced EF, global hypokinesis of of LV, moderate TR, RV systolic pressure of 40-50 - will benefit from ACEI or ARB once creatinine stabilizes - continue metoprolol and digoxin - EKG: sinus rhythm, 1st degree AV block and lateral TWI #IDDM -severe hyperglycemia -in morning, 5 units of regular insulin IV given due to sugar > 400 -repeat sugar and BMP indicated no DKA -in the afternoon, repeat sugar was 400, so gave another 10 units of IV insulin -normally gets levemir 50U HS, given 30U for tonight -trend BMPs #APRYL -likely 2/2 prerenal 2/2 CHF exacerbation -trend creatinine #HTN -continue home metoprolol #BPH -continue home flomax #HLD -continue home crestor #depression -continue home lexapro #H/o achalasia s/p heller myotomy -speech eval -MBS: recommended soft regular diet and thin liquids #nicotine dependence -pt refused nicotine patch #FEN/ppx -no fluids -electrolytes wnl -diabetic/low sodium diet -heparin 5000U TID -no GI ppx indicated Case discussed with attending, Dr. Hudson. -Bolivar Jay MD PGY1 Visit type - Emergency Visit Emergency Visit: Yes ED Registration Date: 05/08/17 Care time: The patient presented to the Emergency Department on the above date and was hospitalized for further evaluation of their emergent condition. - New Patient This patient is new to me today: Yes Date on this admission: 05/08/17 - Critical Care Critical Care patient: No
[2017-05-08 20:43] LABS: ANION GAP 10 (8-16); BLOOD UREA NITROGEN 35 mg/dL (7-18); CALCIUM 8.5 mg/dL (8.5-10.1); CHLORIDE 103 mmol/L (98-107); CO2 20 mmol/L (21-32); CREATININE 1.9 mg/dL (0.7-1.3); POTASSIUM 4.6 mmol/L (3.5-5.1); SODIUM 133 mmol/L (136-145)
[2017-05-08 20:48] LABS: GLUCOSE,RANDOM 466 mg/dL (74-106)
[2017-05-08] MEDS ORDERED: PT OWN MED DRAWER 7, Y5N ONE (21:53)
[2017-05-08] MEDS ORDERED: ESCITALOPRAM OXALATE 20 MG TABLET (FP) PO SCH (22:00)
[2017-05-08] MEDS ORDERED: INSULIN DETEMIR 100 UNITS/ML MDV SQ SCH ×2 (22:00)
[2017-05-08] MEDS: TAMSULOSIN HCL 0.4 MG CAP.ER.24H (FP) PO SCH (22:25)
[2017-05-08] MEDS: ROSUVASTATIN CA 20 MG TABLET (FP) PO SCH (22:25)
[2017-05-08] MEDS: METOPROLOL TARTRATE 25 MG TABLET (FP) PO SCH (22:25)
[2017-05-08] MEDS: LATANOPROST 0.005% OPHTH SOLN 2.5ML BOTTLE OU SCH (22:35)
[2017-05-09] MEDS ORDERED: INSULIN (NOVOLOG) ASPART 100 UNITS/ML 10ML VIAL SQ ONE (00:40)
[2017-05-09] MEDS: HEPARIN NA (PORCINE) 5,000 UNITS/ML 1ML VIAL SQ SCH ×3 (06:32→21:55)
[2017-05-09] MEDS: INSULIN SLIDING SCALE (NOVOLOG) 1 VIAL SQ SCH ×4 (06:32→21:56)
[2017-05-09] MEDS: ALBUTEROL SO4 2.5/IPRATROPIUM 0.5 INH SOL 3 ML VIAL.NEB. NEB SCH ×4 (06:35→23:07)
[2017-05-09 07:31] LABS: BASO % 0.2 % (0-2.0); EOS % 0.1 % (0-4.5); HEMATOCRIT 34.4 % (35.4-49); HEMOGLOBIN 10.7 GM/dL (11.7-16.9); LYMPH % 6.7 % (8-40); MCH 25.1 pg (25.7-33.7); MCHC 31.2 g/dl (32.0-35.9); MEAN CELL VOLUME 80.6 fl (80-96); MEAN PLT VOLUME 8.6 fl (7.5-11.1); MONO % 4.3 % (3.8-10.2); NEUT % 88.7 % (42.8-82.8); PLATELET COUNT 193 K/MM3 (134-434); RBC 4.27 M/mm3 (4.00-5.60); RDW 17.8 % (11.9-15.9); WHITE BLOOD COUNT 11.4 K/mm3 (4.0-10.0)
[2017-05-09 08:34] LABS: ALBUMIN 2.9 g/dl (3.4-5.0); ANION GAP 9 (8-16); BLOOD UREA NITROGEN 38 mg/dL (7-18); CALCIUM 8.8 mg/dL (8.5-10.1); CHLORIDE 107 mmol/L (98-107); CO2 23 mmol/L (21-32); CREATININE 1.7 mg/dL (0.7-1.3); GLUCOSE,RANDOM 236 mg/dL (74-106); MAGNESIUM 2.2 mg/dL (1.8-2.4); PHOSPHOROUS 4.8 mg/dL (2.5-4.9); SGOT/AST 7 U/L (15-37); SGPT/ALT 20 U/L (12-78); SODIUM 139 mmol/L (136-145)
[2017-05-09 08:36] LABS: ALK PHOS 76 U/L (45-117); BILIRUBIN,TOTAL 0.7 mg/dL (0.2-1.0); TOT PROT 6.5 g/dl (6.4-8.2)
[2017-05-09] MEDS ORDERED: PT OWN MED DRAWER 7, Y5N ONE ×3 (08:59→22:02)
[2017-05-09] MEDS: CLOPIDOGREL BISULFATE 75 MG TABLET (FP) PO SCH (09:22)
[2017-05-09] MEDS: METOPROLOL TARTRATE 25 MG TABLET (FP) PO SCH ×2 (09:22→21:55)
[2017-05-09] MEDS: FUROSEMIDE 40 MG/4 ML INJECTABLE VIAL IVPUSH SCH (09:22)
[2017-05-09] MEDS: BUDESONIDE/FORMETEROL FUMARATE 160/4.5 mcg INHALER IH SCH ×2 (09:22→21:57)
[2017-05-09] MEDS ORDERED: amLODIPine BESYLATE 2.5 MG TABLET (FP) PO SCH (10:00)
--- NOTE | 2017-05-09 11:55 | PN ---
Progress Note (short form) - Note Progress Note: Ambulating in the hallway. Breathing feels a little better today. No wheezing. Intake & Output 05/06/17 05/07/17 05/08/17 05/09/17 23:59 23:59 23:59 23:59 Intake Total 650 210 Output Total 1 2 Balance 649 208 Weight 175 lb 175 lb 179 lb Last Vital Signs Temp Pulse Resp BP Pulse Ox 98.2 F 75 20 111/55 97 05/09/17 10:00 05/09/17 10:00 05/09/17 10:00 05/09/17 10:00 05/09/17 10:00 Active Medications Albuterol Sulfate (Ventolin 0.083% Nebulizer Soln -) 1 amp NEB PRN PRN Albuterol/Ipratropium (Duoneb -) 1 amp NEB QIDR [facility] Last Admin: 05/09/17 11:55 Dose: 1 amp Budesonide/Formoterol Fumarate (Symbicort 160/4.5mcg -) 2 puff IH BID [facility] Last Admin: 05/09/17 09:22 Dose: 2 puff Clopidogrel Bisulfate (Plavix -) 75 mg PO DAILY [facility] Last Admin: 05/09/17 09:22 Dose: 75 mg Digoxin (Lanoxin -) 0.125 mg PO ASDIR [facility] Last Admin: 05/08/17 01:38 Dose: 0.125 mg Escitalopram Oxalate (Lexapro -) 20 mg PO DAILY [facility] Furosemide (Lasix Injection -) 40 mg IVPUSH DAILY [facility] Last Admin: 05/09/17 09:22 Dose: 40 mg Heparin Sodium (Porcine) (Heparin -) 5,000 unit SQ TID [facility] Last Admin: 05/09/17 06:32 Dose: 5,000 unit Insulin Aspart (Novolog Vial Sliding Scale -) 1 vial SQ ACHS [facility] PRN Reason: Protocol Last Admin: 05/09/17 06:32 Dose: 7 units Insulin Detemir (Levemir Vial) 30 units SQ HS [facility] Last Admin: 05/08/17 22:36 Dose: 30 units Latanoprost (Xalatan 0.005% Eye Drops -) 1 drop OU HS [facility] Last Admin: 05/08/17 22:35 Dose: 1 drop Melatonin (Melatonin) 3 mg PO HS [facility] Last Admin: 05/08/17 23:02 Dose: 3 mg Metoprolol Tartrate (Lopressor -) 25 mg PO BID [facility] Last Admin: 05/09/17 09:22 Dose: 25 mg Rosuvastatin Calcium (Crestor -) 20 mg PO [facility] Last Admin: 05/08/17 22:25 Dose: 20 mg Tamsulosin HCl (Flomax -) 0.4 mg PO [facility] Last Admin: 05/08/17 22:25 Dose: 0.4 mg GENERAL: awake, alert, and fully oriented, in no acute distress. HEENT: NC, AT, EOMI NECK: (-) JVD LUNGS: rales at bases, no wheeze HEART: Regular rate and rhythm, S1, S2 without murmur, rub or gallop. ABDOMEN: Soft, nontender, nondistended, normoactive bowel sounds, no guarding, no rebound, no hepatosplenomegaly, no masses. EXTREMITIES: 2+ pulses, warm, well-perfused, no edema. NEUROLOGICAL: Non-focal PSYCH: Normal mood, normal affect. SKIN: Warm, dry, normal turgor, no rashes or lesions noted Laboratory Results - last 24 hr 05/08/17 05/08/17 05/08/17 01:38 07:48 09:45 WBC RBC Hgb Hct MCV MCH MCHC RDW Plt Count MPV Neutrophils % Lymphocytes % Monocytes % Eosinophils % Basophils % Sodium Cancelled Potassium Cancelled Chloride Cancelled Carbon Dioxide Cancelled Anion Gap Cancelled BUN Cancelled Creatinine Cancelled Creat Clearance w eGFR POC Glucometer > 400 Random Glucose Cancelled Calcium Cancelled Phosphorus Magnesium Total Bilirubin AST ALT Alkaline Phosphatase Creatine Kinase 48 Troponin I 0.04 Total Protein Albumin Ur Leukocyte Esterase Negative Urine WBC (Auto) 4 Urine RBC (Auto) 1 Urine Mucus Rare 05/08/17 05/08/17 05/08/17 10:53 12:40 16:00 WBC RBC Hgb Hct MCV MCH MCHC RDW Plt Count MPV Neutrophils % Lymphocytes % Monocytes % Eosinophils % Basophils % Sodium 135 L 134 L Potassium 4.2 5.0 Chloride 105 101 Carbon Dioxide 18 L 20 L Anion Gap 12 13 BUN 30 H 32 H Creatinine 1.7 H 1.7 H Creat Clearance w eGFR POC Glucometer Random Glucose 451 H* 412 H* 460 H* Calcium 8.4 L 8.7 Phosphorus Magnesium Total Bilirubin AST ALT Alkaline Phosphatase Creatine Kinase Troponin I Total Protein Albumin Ur Leukocyte Esterase Urine WBC (Auto) Urine RBC (Auto) Urine Mucus 05/08/17 05/09/17 05/09/17 19:40 02:40 05:58 WBC RBC Hgb Hct MCV MCH MCHC RDW Plt Count MPV Neutrophils % Lymphocytes % Monocytes % Eosinophils % Basophils % Sodium 133 L Potassium 4.6 Chloride 103 Carbon Dioxide 20 L Anion Gap 10 BUN 35 H Creatinine 1.9 H Creat Clearance w eGFR POC Glucometer 371 262 Random Glucose 466 H* Calcium 8.5 Phosphorus Magnesium Total Bilirubin AST ALT Alkaline Phosphatase Creatine Kinase Troponin I Total Protein Albumin Ur Leukocyte Esterase Urine WBC (Auto) Urine RBC (Auto) Urine Mucus 05/09/17 05/09/17 05/09/17 06:30 06:30 11:09 WBC 11.4 H D RBC 4.27 Hgb 10.7 L D Hct 34.4 L MCV 80.6 MCH 25.1 L MCHC 31.2 L RDW 17.8 H Plt Count 193 MPV 8.6 Neutrophils % 88.7 H Lymphocytes % 6.7 L D Monocytes % 4.3 Eosinophils % 0.1 D Basophils % 0.2 Sodium 139 Potassium 5.0 Chloride 107 Carbon Dioxide 23 Anion Gap 9 BUN 38 H Creatinine 1.7 H Creat Clearance w eGFR 39.60 POC Glucometer 230 Random Glucose 236 H D Calcium 8.8 Phosphorus 4.8 Magnesium 2.2 D Total Bilirubin 0.7 AST 7 L D ALT 20 Alkaline Phosphatase 76 Creatine Kinase Troponin I Total Protein 6.5 Albumin 2.9 L Ur Leukocyte Esterase Urine WBC (Auto) Urine RBC (Auto) Urine Mucus Problem List - Problems (1) COPD exacerbation Code(s): J44.1 - CHRONIC OBSTRUCTIVE PULMONARY DISEASE W (ACUTE) EXACERBATION (2) Dyspnea Code(s): R06.00 - DYSPNEA, UNSPECIFIED Qualifiers: Dyspnea type: dyspnea on exertion Qualified Code(s): R06.09 - Other forms of dyspnea (3) Acute kidney injury Code(s): N17.9 - ACUTE KIDNEY FAILURE, UNSPECIFIED (4) Acute on chronic renal insufficiency Code(s): N28.9 - DISORDER OF KIDNEY AND URETER, UNSPECIFIED; N18.9 - CHRONIC KIDNEY DISEASE, UNSPECIFIED (5) CAD (coronary artery disease) Code(s): I25.10 - ATHSCL HEART DISEASE OF [place] CORONARY ARTERY W/O ANG PCTRS Qualifiers: Coronary Disease-Associated Artery/Lesion type: [place] artery [place] vs. transplanted heart: [place] heart Associated angina: without angina Qualified Code(s): I25.10 - Atherosclerotic heart disease of [place] coronary artery without angina pectoris (6) Congestive heart failure Code(s): I50.9 - HEART FAILURE, UNSPECIFIED Qualifiers: Congestive heart failure type: systolic Congestive heart failure chronicity : chronic Qualified Code(s): I50.22 - Chronic systolic (congestive) heart failure (7) Cough Code(s): R05 - COUGH (8) Hypertension Code(s): I10 - ESSENTIAL (PRIMARY) HYPERTENSION (9) PVD (peripheral vascular disease) Code(s): I73.9 - PERIPHERAL VASCULAR DISEASE, UNSPECIFIED (10) Pulmonary congestion Code(s): R09.89 - OTH SYMPTOMS AND SIGNS INVOLVING THE CIRC AND RESP SYSTEMS (11) Tobacco dependence Code(s): F17.200 - NICOTINE DEPENDENCE, UNSPECIFIED, UNCOMPLICATED (12) Acute decompensated heart failure Code(s): I50.9 - HEART FAILURE, UNSPECIFIED IMP DYSPNEA ACUTE ON CHRONIC SYSTOLIC HF COPD EXACERBATION ASHD S/P CABG PULMONARY HTN DM HLD ACUTE ON CHRONIC KIDNEY INJURY SMOKER PVD PLAN LASIX INHALED BRONCHODILATORS PRN SYMBICORT BID O2 SMOKING CESSATION COUNSELED MONITOR OFF SYSTEMIC STEROIDS MONITOR OFF ABX DR KEENE
[2017-05-09] MEDS: ESCITALOPRAM OXALATE 20 MG TABLET (FP) PO SCH (12:07)
--- NOTE | 2017-05-09 13:03 | PN ---
Teaching Attending Note Name of Resident: Bolivar Jay ATTENDING PHYSICIAN STATEMENT I saw and evaluated the patient. I reviewed the resident's note and discussed the case with the resident. I agree with the resident's findings and plan as documented. SUBJECTIVE: no fever or chills, has no abd pain, SOb is much better . OBJECTIVE: NAD CV: RRR. no MRG, JVD. Lungs: minimal crackles at R base , good air entry , no wheezing Abd:soft, NT, ND , NL BS . Ext: no edema ASSESSMENT AND PLAN: 76 y/o man with h/o S CHF , HTN, CAD, DM , COPD , and other medical problems who presented with worseningn SOB , and was found to have acute CHF exacerbation and Severely elevated glucose 1- Acute systolic CHF exacerbation , - cont lasix , follow I&O and weight ( not reported correctly) - will benefit from ACEI , ARBS but will wait for renal function to stabilize - home BB conformed and restarted - cont digoxin 2- IDDM, with severe hyperglycemia: worsened due to steroids use , now under better control -cont SSi - cont levemir 50 HS 3- APRYL: likely due to prerenal azotemia from heart failure. improved - monitor on diuresis 4- HTN: can't use ACEI or ARB now, - cont BB 6- DVT PX Tele
--- NOTE | 2017-05-09 14:30 | PN ---
Physical Exam: SUBJECTIVE: Patient seen and examined Pt states that his breathing is the same as yesterday. He has a non-productive cough, no wheezing. He denies chest pain, abdominal pain, n/v/d/c, and dysuria. OBJECTIVE: Vital Signs Period Temp Pulse Resp BP Sys/Garcia Pulse Ox Last 24 Hr 97.5 F-98.2 F 62-82 20-20 105-152/55-72 97-97 GENERAL: elderly male, awake, alert, and fully oriented, in no acute distress. HEENT: NC, AT, EOMI NECK: no JVD LUNGS: mild rales at bases, good air flow HEART: Regular rate and rhythm, S1, S2 without murmur, rub or gallop. ABDOMEN: Soft, nontender, nondistended, normoactive bowel sounds, no guarding, no rebound, no hepatosplenomegaly, no masses. EXTREMITIES: 2+ pulses, warm, well-perfused, no edema. NEUROLOGICAL: Cranial nerves II through XII grossly intact. Normal speech Laboratory Results - last 24 hr 05/08/17 05/08/17 05/08/17 09:45 12:40 16:00 WBC RBC Hgb Hct MCV MCH MCHC RDW Plt Count MPV Neutrophils % Lymphocytes % Monocytes % Eosinophils % Basophils % Sodium 134 L Potassium 5.0 Chloride 101 Carbon Dioxide 20 L Anion Gap 13 BUN 32 H Creatinine 1.7 H Creat Clearance w eGFR POC Glucometer Random Glucose 412 H* 460 H* Calcium 8.7 Phosphorus Magnesium Total Bilirubin AST ALT Alkaline Phosphatase Total Protein Albumin Ur Leukocyte Esterase Negative 05/08/17 05/09/17 05/09/17 19:40 02:40 05:58 WBC RBC Hgb Hct MCV MCH MCHC RDW Plt Count MPV Neutrophils % Lymphocytes % Monocytes % Eosinophils % Basophils % Sodium 133 L Potassium 4.6 Chloride 103 Carbon Dioxide 20 L Anion Gap 10 BUN 35 H Creatinine 1.9 H Creat Clearance w eGFR POC Glucometer 371 262 Random Glucose 466 H* Calcium 8.5 Phosphorus Magnesium Total Bilirubin AST ALT Alkaline Phosphatase Total Protein Albumin Ur Leukocyte Esterase 05/09/17 05/09/17 05/09/17 06:30 06:30 11:09 WBC 11.4 H D RBC 4.27 Hgb 10.7 L D Hct 34.4 L MCV 80.6 MCH 25.1 L MCHC 31.2 L RDW 17.8 H Plt Count 193 MPV 8.6 Neutrophils % 88.7 H Lymphocytes % 6.7 L D Monocytes % 4.3 Eosinophils % 0.1 D Basophils % 0.2 Sodium 139 Potassium 5.0 Chloride 107 Carbon Dioxide 23 Anion Gap 9 BUN 38 H Creatinine 1.7 H Creat Clearance w eGFR 39.60 POC Glucometer 230 Random Glucose 236 H D Calcium 8.8 Phosphorus 4.8 Magnesium 2.2 D Total Bilirubin 0.7 AST 7 L D ALT 20 Alkaline Phosphatase 76 Total Protein 6.5 Albumin 2.9 L Ur Leukocyte Esterase Active Medications Generic Name Dose Route Start Last Admin Trade Name Freq PRN Reason Stop Dose Admin Albuterol Sulfate 1 amp 05/08/17 01:30 Ventolin 0.083% Nebulizer Soln - NEB PRN PRN Albuterol/Ipratropium 1 amp 05/08/17 06:00 05/09/17 11:55 Duoneb - NEB 1 amp QIDR KADEEM Administration Budesonide/Formoterol Fumarate 2 puff 05/08/17 10:00 05/09/17 09:22 Symbicort 160/4.5mcg - IH 2 puff BID KADEEM Administration Clopidogrel Bisulfate 75 mg 05/08/17 10:00 05/09/17 09:22 Plavix - PO 75 mg DAILY KADEEM Administration Digoxin 0.125 mg 05/08/17 01:30 05/08/17 01:38 Lanoxin - PO 0.125 mg ASDIR KADEEM Administration Escitalopram Oxalate 20 mg 05/09/17 10:00 05/09/17 12:07 Lexapro - PO 20 mg DAILY KADEEM Administration Furosemide 40 mg 05/08/17 10:30 05/09/17 09:22 Lasix Injection - IVPUSH 40 mg DAILY KADEEM Administration Heparin Sodium (Porcine) 5,000 unit 05/08/17 06:00 05/09/17 13:58 Heparin - SQ 5,000 unit TID KADEEM Administration Insulin Aspart 1 vial 05/08/17 18:20 05/09/17 11:58 Novolog Vial Sliding Scale - SQ 5 units ACHS KADEEM Administration Protocol Insulin Detemir 50 units 05/09/17 12:35 Levemir Vial SQ HS KADEEM Latanoprost 1 drop 05/08/17 22:00 05/08/17 22:35 Xalatan 0.005% Eye Drops - OU 1 drop HS KADEEM Administration Melatonin 3 mg 05/09/17 22:00 Melatonin PO 05/09/17 22:01 HS ONE Metoprolol Tartrate 25 mg 05/08/17 22:00 05/09/17 09:22 Lopressor - PO 25 mg BID KADEEM Administration Rosuvastatin Calcium 20 mg 05/08/17 22:00 05/08/17 22:25 Crestor - PO 20 mg HS KADEEM Administration Tamsulosin HCl 0.4 mg 05/08/17 22:00 05/08/17 22:25 Flomax - PO 0.4 mg HS KADEEM Administration CXR: minimal congestion ASSESSMENT/PLAN: 76M w/ hx of sytolic CHF, HTN, CAD, IDDM, COPD, BPH, OA, chronic back pain, PUD , and HLD who presented with worsening SOB, and was found to have acute CHF exacerbation and severe hyperglycemia. #SOB -likely 2/2 systolic CHF exacerbation 2/2 discontinuing home lasix bc of hypotension -continue 40 mg of IV lasix, duonebs, symbicort, ventolin - will benefit from ACEI or ARB once creatinine stabilizes - continue metoprolol and digoxin #IDDM -glucose of 236 this am -start home dose of levemir 50U HS tonight -trend BMPs #APRYL -creatinine of 1.7 -likely 2/2 prerenal 2/2 CHF exacerbation -trend creatinine #HTN -continue home metoprolol #BPH -continue home flomax #HLD -continue home crestor #depression -continue home lexapro #H/o achalasia s/p heller myotomy -speech eval -MBS: recommended soft regular diet and thin liquids #nicotine dependence -pt refused nicotine patch #physical therapy -MD walked with pt about 50 feet, pt relatively stable on his feet, became SOB afterwards requesting to sit down. Pt denies physical therapy at this time. #FEN/ppx -no fluids -electrolytes wnl -diabetic/low sodium diet -heparin 5000U TID -no GI ppx indicated Case discussed with attending, Dr. Hudson. -Bolivar Jay MD PGY1 Visit type - Emergency Visit Emergency Visit: Yes ED Registration Date: 05/08/17 Care time: The patient presented to the Emergency Department on the above date and was hospitalized for further evaluation of their emergent condition. - New Patient This patient is new to me today: No - Critical Care Critical Care patient: No
[2017-05-09] MEDS ORDERED: INSULIN (NOVOLOG) ASPART 100 UNITS/ML 10ML VIAL ONE (21:43)
[2017-05-09] MEDS: ROSUVASTATIN CA 20 MG TABLET (FP) PO SCH (21:55)
[2017-05-09] MEDS: TAMSULOSIN HCL 0.4 MG CAP.ER.24H (FP) PO SCH (21:55)
[2017-05-09] MEDS: INSULIN DETEMIR 100 UNITS/ML MDV SQ SCH (21:56)
[2017-05-09] MEDS ORDERED: MELATONIN 1 MG TABLET PO ONE (22:00)
[2017-05-09] MEDS ORDERED: MELATONIN 1 MG TABLET PO SCH (22:00)
[2017-05-09] MEDS: LATANOPROST 0.005% OPHTH SOLN 2.5ML BOTTLE OU SCH (22:07)
[2017-05-10] MEDS: ALBUTEROL SO4 2.5/IPRATROPIUM 0.5 INH SOL 3 ML VIAL.NEB. NEB SCH ×4 (05:30→23:09)
[2017-05-10] MEDS: HEPARIN NA (PORCINE) 5,000 UNITS/ML 1ML VIAL SQ SCH ×3 (06:16→21:59)
[2017-05-10] MEDS: INSULIN SLIDING SCALE (NOVOLOG) 1 VIAL SQ SCH ×4 (06:18→22:05)
[2017-05-10 08:00] LABS: HEMATOCRIT 32.9 % (35.4-49); HEMOGLOBIN 10.7 GM/dL (11.7-16.9); MCH 25.9 pg (25.7-33.7); MCHC 32.6 g/dl (32.0-35.9); MEAN CELL VOLUME 79.3 fl (80-96); MEAN PLT VOLUME 8.7 fl (7.5-11.1); PLATELET COUNT 196 K/MM3 (134-434); RBC 4.15 M/mm3 (4.00-5.60); RDW 17.8 % (11.9-15.9); WHITE BLOOD COUNT 7.1 K/mm3 (4.0-10.0)
[2017-05-10 08:13] LABS: ALBUMIN 2.7 g/dl (3.4-5.0); ANION GAP 13 (8-16); BLOOD UREA NITROGEN 44 mg/dL (7-18); CALCIUM 8.4 mg/dL (8.5-10.1); CHLORIDE 107 mmol/L (98-107); CO2 20 mmol/L (21-32); CREATININE 1.6 mg/dL (0.7-1.3); GLUCOSE,RANDOM 88 mg/dL (74-106); POTASSIUM 3.9 mmol/L (3.5-5.1); SGOT/AST 12 U/L (15-37); SGPT/ALT 21 U/L (12-78); SODIUM 140 mmol/L (136-145)
[2017-05-10 08:16] LABS: ALK PHOS 70 U/L (45-117); BILIRUBIN,TOTAL 0.9 mg/dL (0.2-1.0); TOT PROT 6.1 g/dl (6.4-8.2)
[2017-05-10] MEDS ORDERED: PT OWN MED DRAWER 7, Y5N ONE ×2 (09:04→17:09)
[2017-05-10] MEDS: FUROSEMIDE 40 MG/4 ML INJECTABLE VIAL IVPUSH SCH (09:12)
[2017-05-10] MEDS: ESCITALOPRAM OXALATE 20 MG TABLET (FP) PO SCH (09:12)
[2017-05-10] MEDS: METOPROLOL TARTRATE 25 MG TABLET (FP) PO SCH ×2 (09:16→21:57)
[2017-05-10] MEDS: BUDESONIDE/FORMETEROL FUMARATE 160/4.5 mcg INHALER IH SCH ×2 (09:16→22:03)
[2017-05-10] MEDS: CLOPIDOGREL BISULFATE 75 MG TABLET (FP) PO SCH (09:16)
--- NOTE | 2017-05-10 10:45 | PN ---
Progress Note (short form) - Note Progress Note: Reports some AVILA. Breathing feels about the same. No wheezing. Intake & Output 05/07/17 05/08/17 05/09/17 05/10/17 23:59 23:59 23:59 23:59 Intake Total 650 760 Output Total 1 2 Balance 649 758 Weight 175 lb 175 lb 179 lb 177 lb 3 oz Last Vital Signs Temp Pulse Resp BP Pulse Ox 98.4 F 77 20 118/67 96 05/10/17 05:00 05/10/17 05:00 05/10/17 05:00 05/10/17 05:00 05/09/17 21:00 Active Medications Albuterol Sulfate (Ventolin 0.083% Nebulizer Soln -) 1 amp NEB PRN PRN Albuterol/Ipratropium (Duoneb -) 1 amp NEB QIDR [facility] Last Admin: 05/10/17 05:57 Dose: 1 amp Budesonide/Formoterol Fumarate (Symbicort 160/4.5mcg -) 2 puff IH BID [facility] Last Admin: 05/10/17 09:16 Dose: 2 puff Clopidogrel Bisulfate (Plavix -) 75 mg PO DAILY [facility] Last Admin: 05/10/17 09:16 Dose: 75 mg Digoxin (Lanoxin -) 0.125 mg PO ASDIR [facility] Last Admin: 05/08/17 01:38 Dose: 0.125 mg Escitalopram Oxalate (Lexapro -) 20 mg PO DAILY [facility] Last Admin: 05/10/17 09:12 Dose: 20 mg Furosemide (Lasix Injection -) 40 mg IVPUSH DAILY [facility] Last Admin: 05/10/17 09:12 Dose: 40 mg Heparin Sodium (Porcine) (Heparin -) 5,000 unit SQ TID [facility] Last Admin: 05/10/17 06:16 Dose: 5,000 unit Insulin Aspart (Novolog Vial Sliding Scale -) 1 vial SQ ACHS [facility] PRN Reason: Protocol Last Admin: 05/10/17 06:18 Dose: Not Given Insulin Detemir (Levemir Vial) 50 units SQ HS [facility] Last Admin: 05/09/17 21:56 Dose: 50 units Latanoprost (Xalatan 0.005% Eye Drops -) 1 drop OU HS [facility] Last Admin: 05/09/17 22:07 Dose: 1 drop Metoprolol Tartrate (Lopressor -) 25 mg PO BID [facility] Last Admin: 05/10/17 09:16 Dose: 25 mg Rosuvastatin Calcium (Crestor -) 20 mg PO [facility] Last Admin: 05/09/17 21:55 Dose: 20 mg Tamsulosin HCl (Flomax -) 0.4 mg PO [facility] Last Admin: 05/09/17 21:55 Dose: 0.4 mg GENERAL: awake, alert, and fully oriented, in no acute distress. HEENT: NC, AT, EOMI NECK: (-) JVD LUNGS: rales at bases, no wheeze HEART: Regular rate and rhythm, S1, S2 without murmur, rub or gallop. ABDOMEN: Soft, nontender, nondistended, normoactive bowel sounds, no guarding, no rebound, no hepatosplenomegaly, no masses. EXTREMITIES: 2+ pulses, warm, well-perfused, no edema. NEUROLOGICAL: Non-focal PSYCH: Normal mood, normal affect. SKIN: Warm, dry, normal turgor, no rashes or lesions noted Laboratory Results - last 24 hr 05/09/17 05/09/17 05/09/17 11:09 16:50 20:52 WBC RBC Hgb Hct MCV MCH MCHC RDW Plt Count MPV Sodium Potassium Chloride Carbon Dioxide Anion Gap BUN Creatinine Creat Clearance w eGFR POC Glucometer 230 199 273 Random Glucose Calcium Total Bilirubin AST ALT Alkaline Phosphatase Total Protein Albumin 05/10/17 05/10/17 05/10/17 05:56 06:00 07:30 WBC 7.1 D RBC 4.15 Hgb 10.7 L Hct 32.9 L MCV 79.3 L MCH 25.9 MCHC 32.6 RDW 17.8 H Plt Count 196 MPV 8.7 Sodium 140 Potassium 3.9 D Chloride 107 Carbon Dioxide 20 L Anion Gap 13 BUN 44 H Creatinine 1.6 H Creat Clearance w eGFR 42.46 POC Glucometer 103 Random Glucose 88 D Calcium 8.4 L Total Bilirubin 0.9 D AST 12 L D ALT 21 Alkaline Phosphatase 70 Total Protein 6.1 L Albumin 2.7 L Problem List - Problems (1) COPD exacerbation Code(s): J44.1 - CHRONIC OBSTRUCTIVE PULMONARY DISEASE W (ACUTE) EXACERBATION (2) Dyspnea Code(s): R06.00 - DYSPNEA, UNSPECIFIED Qualifiers: Dyspnea type: dyspnea on exertion Qualified Code(s): R06.09 - Other forms of dyspnea (3) Acute kidney injury Code(s): N17.9 - ACUTE KIDNEY FAILURE, UNSPECIFIED (4) Acute on chronic renal insufficiency Code(s): N28.9 - DISORDER OF KIDNEY AND URETER, UNSPECIFIED; N18.9 - CHRONIC KIDNEY DISEASE, UNSPECIFIED (5) CAD (coronary artery disease) Code(s): I25.10 - ATHSCL HEART DISEASE OF [place] CORONARY ARTERY W/O ANG PCTRS Qualifiers: Coronary Disease-Associated Artery/Lesion type: [place] artery [place] vs. transplanted heart: [place] heart Associated angina: without angina Qualified Code(s): I25.10 - Atherosclerotic heart disease of [place] coronary artery without angina pectoris (6) Congestive heart failure Code(s): I50.9 - HEART FAILURE, UNSPECIFIED Qualifiers: Congestive heart failure type: systolic Congestive heart failure chronicity : chronic Qualified Code(s): I50.22 - Chronic systolic (congestive) heart failure (7) Cough Code(s): R05 - COUGH (8) Hypertension Code(s): I10 - ESSENTIAL (PRIMARY) HYPERTENSION (9) PVD (peripheral vascular disease) Code(s): I73.9 - PERIPHERAL VASCULAR DISEASE, UNSPECIFIED (10) Pulmonary congestion Code(s): R09.89 - OTH SYMPTOMS AND SIGNS INVOLVING THE CIRC AND RESP SYSTEMS (11) Tobacco dependence Code(s): F17.200 - NICOTINE DEPENDENCE, UNSPECIFIED, UNCOMPLICATED (12) Acute decompensated heart failure Code(s): I50.9 - HEART FAILURE, UNSPECIFIED IMP DYSPNEA ACUTE ON CHRONIC SYSTOLIC HF COPD EXACERBATION ASHD S/P CABG PULMONARY HTN DM HLD ACUTE ON CHRONIC KIDNEY INJURY SMOKER PVD PLAN LASIX INHALED BRONCHODILATORS STANDING & PRN SYMBICORT BID O2 SMOKING CESSATION COUNSELED MONITOR OFF SYSTEMIC STEROIDS MONITOR OFF ABX DR KEENE
[2017-05-10] MEDS ORDERED: DIGOXIN 0.125 MG TABLET (FP) PO SCH (14:58)
--- NOTE | 2017-05-10 15:00 | PN ---
Progress Note (short form) - Note Progress Note: Subjective: cont to have SOB . Objective: Vital Signs: Last Vital Signs Temp Pulse Resp BP Pulse Ox 98.3 F 70 23 113/62 92 L 05/10/17 13:30 05/10/17 13:30 05/10/17 13:30 05/10/17 13:30 05/10/17 12:43 Laboratory Results - last 24 hr 05/09/17 05/09/17 05/10/17 16:50 20:52 05:56 WBC RBC Hgb Hct MCV MCH MCHC RDW Plt Count MPV Sodium Potassium Chloride Carbon Dioxide Anion Gap BUN Creatinine Creat Clearance w eGFR POC Glucometer 199 273 103 Random Glucose Calcium Total Bilirubin AST ALT Alkaline Phosphatase Total Protein Albumin 05/10/17 05/10/17 05/10/17 06:00 07:30 11:40 WBC 7.1 D RBC 4.15 Hgb 10.7 L Hct 32.9 L MCV 79.3 L MCH 25.9 MCHC 32.6 RDW 17.8 H Plt Count 196 MPV 8.7 Sodium 140 Potassium 3.9 D Chloride 107 Carbon Dioxide 20 L Anion Gap 13 BUN 44 H Creatinine 1.6 H Creat Clearance w eGFR 42.46 POC Glucometer 197 Random Glucose 88 D Calcium 8.4 L Total Bilirubin 0.9 D AST 12 L D ALT 21 Alkaline Phosphatase 70 Total Protein 6.1 L Albumin 2.7 L Physical Exam: NAD CV: RRR. no MRG, JVD. Lungs: minimal crackles at R base, good air entry , no wheezing Abd: soft, NT, ND , NL BS . Ext: no edema ASSESSMENT AND PLAN: 76 y/o man with h/o S CHF , HTN, CAD, DM , COPD , and other medical problems who presented with worseningn SOB , and was found to have acute CHF exacerbation and Severely elevated glucose 1- Acute systolic CHF exacerbation , - cont lasix , I&O not accurate . weight decreased by 2 lb - will benefit from ACEI , ARBS but will wait for renal function to stabilize - cont BB - give digoxin QOD due to renal failure 2- IDDM, with severe hyperglycemia: -cont SSi - cont levemir 50 HS 3- APRYL: likely due to prerenal azotemia from heart failure.stable - monitor on diuresis 4- HTN: can't use ACEI or ARB now, - cont BB 6- DVT PX HLOC Visit type - Emergency Visit Emergency Visit: Yes ED Registration Date: 05/08/17 Care time: The patient presented to the Emergency Department on the above date and was hospitalized for further evaluation of their emergent condition. - New Patient This patient is new to me today: No - Critical Care Critical Care patient: No
[2017-05-10] MEDS: DIGOXIN 0.125 MG TABLET (FP) PO SCH ×2 (18:04→18:06)
[2017-05-10] MEDS: LATANOPROST 0.005% OPHTH SOLN 2.5ML BOTTLE OU SCH (21:56)
[2017-05-10] MEDS: TAMSULOSIN HCL 0.4 MG CAP.ER.24H (FP) PO SCH (21:57)
[2017-05-10] MEDS: ROSUVASTATIN CA 20 MG TABLET (FP) PO SCH (21:57)
[2017-05-10] MEDS: INSULIN DETEMIR 100 UNITS/ML MDV SQ SCH (21:58)
[2017-05-10] MEDS ORDERED: MELATONIN 1 MG TABLET PO SCH (23:00)
[2017-05-11] MEDS ORDERED: PT OWN MED DRAWER 7, Y5N ONE (01:19)
[2017-05-11] MEDS: HEPARIN NA (PORCINE) 5,000 UNITS/ML 1ML VIAL SQ SCH ×2 (06:02→13:05)
[2017-05-11] MEDS: INSULIN SLIDING SCALE (NOVOLOG) 1 VIAL SQ SCH ×2 (06:03→11:43)
[2017-05-11] MEDS: ALBUTEROL SO4 2.5/IPRATROPIUM 0.5 INH SOL 3 ML VIAL.NEB. NEB SCH ×2 (06:45→13:00)
[2017-05-11 08:58] LABS: ANION GAP 11 (8-16); BLOOD UREA NITROGEN 47 mg/dL (7-18); CHLORIDE 106 mmol/L (98-107); CO2 22 mmol/L (21-32); CREATININE 1.5 mg/dL (0.7-1.3); GLUCOSE,RANDOM 129 mg/dL (74-106); POTASSIUM 4.3 mmol/L (3.5-5.1); SODIUM 139 mmol/L (136-145)
[2017-05-11] MEDS: FUROSEMIDE 40 MG/4 ML INJECTABLE VIAL IVPUSH SCH (09:14)
[2017-05-11] MEDS: METOPROLOL TARTRATE 25 MG TABLET (FP) PO SCH (09:14)
[2017-05-11] MEDS: CLOPIDOGREL BISULFATE 75 MG TABLET (FP) PO SCH (09:14)
[2017-05-11] MEDS: ESCITALOPRAM OXALATE 20 MG TABLET (FP) PO SCH (09:14)
[2017-05-11] MEDS: BUDESONIDE/FORMETEROL FUMARATE 160/4.5 mcg INHALER IH SCH (09:14)
--- NOTE | 2017-05-11 10:31 | PN ---
Physical Exam: SUBJECTIVE: Patient seen and examined OBJECTIVE: Vital Signs Period Temp Pulse Resp BP Sys/Garcia Pulse Ox Last 24 Hr 97.9 F-98.4 F 70-96 18-23 100-135/51-65 92-98 GENERAL: The patient is awake, alert, and fully oriented, in no acute distress. HEAD: Normal with no signs of trauma. EYES: PERRL, extraocular movements intact, sclera anicteric, conjunctiva clear. No ptosis. ENT: Ears normal, nares patent, oropharynx clear without exudates, moist mucous membranes. NECK: Trachea midline, full range of motion, supple. LUNGS: Breath sounds equal, clear to auscultation bilaterally, no wheezes, no crackles, no accessory muscle use. HEART: Regular rate and rhythm, S1, S2 without murmur, rub or gallop. ABDOMEN: Soft, nontender, nondistended, normoactive bowel sounds, no guarding, no rebound, no hepatosplenomegaly, no masses. EXTREMITIES: 2+ pulses, warm, well-perfused, no edema. NEUROLOGICAL: Cranial nerves II through XII grossly intact. Normal speech, gait not observed. PSYCH: Normal mood, normal affect. SKIN: Warm, dry, normal turgor, no rashes or lesions noted Laboratory Results - last 24 hr 05/10/17 05/10/17 05/10/17 11:40 17:00 22:02 Sodium Potassium Chloride Carbon Dioxide Anion Gap BUN Creatinine POC Glucometer 197 240 349 Random Glucose Calcium 05/11/17 05/11/17 04:15 08:20 Sodium 139 Potassium 4.3 Chloride 106 Carbon Dioxide 22 Anion Gap 11 BUN 47 H Creatinine 1.5 H POC Glucometer 181 Random Glucose 129 H D Calcium 9.0 Active Medications Generic Name Dose Route Start Last Admin Trade Name Freq PRN Reason Stop Dose Admin Albuterol Sulfate 1 amp 05/08/17 01:30 Ventolin 0.083% Nebulizer Soln - NEB PRN PRN Albuterol/Ipratropium 1 amp 05/08/17 06:00 05/11/17 06:45 Duoneb - NEB 1 amp QIDR KADEEM Administration Budesonide/Formoterol Fumarate 2 puff 05/08/17 10:00 05/11/17 09:14 Symbicort 160/4.5mcg - IH 2 puff BID KADEEM Administration Clopidogrel Bisulfate 75 mg 05/08/17 10:00 05/11/17 09:14 Plavix - PO 75 mg DAILY KADEEM Administration Digoxin 0.125 mg 05/10/17 14:58 05/10/17 17:01 Lanoxin - PO 0.125 mg Q48H KADEEM Administration Escitalopram Oxalate 20 mg 05/09/17 10:00 05/11/17 09:14 Lexapro - PO 20 mg DAILY KADEEM Administration Furosemide 40 mg 05/08/17 10:30 05/11/17 09:14 Lasix Injection - IVPUSH 40 mg DAILY KADEEM Administration Heparin Sodium (Porcine) 5,000 unit 05/08/17 06:00 05/11/17 06:02 Heparin - SQ 5,000 unit TID KADEEM Administration Insulin Aspart 1 vial 05/08/17 18:20 05/11/17 06:03 Novolog Vial Sliding Scale - SQ 3 units ACHS KADEEM Administration Protocol Insulin Detemir 50 units 05/09/17 12:35 05/10/17 21:58 Levemir Vial SQ 50 units HS KADEEM Administration Latanoprost 1 drop 05/08/17 22:00 05/10/17 21:56 Xalatan 0.005% Eye Drops - OU 1 drop HS KADEEM Administration Melatonin 3 mg 05/10/17 23:00 05/10/17 23:15 Melatonin PO 3 mg HS KADEEM Administration Metoprolol Tartrate 25 mg 05/08/17 22:00 05/11/17 09:14 Lopressor - PO 25 mg BID KADEEM Administration Rosuvastatin Calcium 20 mg 05/08/17 22:00 05/10/17 21:57 Crestor - PO 20 mg HS KADEEM Administration Tamsulosin HCl 0.4 mg 05/08/17 22:00 05/10/17 21:57 Flomax - PO 0.4 mg HS KADEEM Administration ASSESSMENT/PLAN:
--- NOTE | 2017-05-11 11:27 | PN ---
Progress Note (short form) - Note Progress Note: Appears more comfortable. Breathing feels a little better. No wheezing. Intake & Output 05/08/17 05/09/17 05/10/17 05/11/17 23:59 23:59 23:59 23:59 Intake Total 650 760 910 550 Output Total 1 2 450 Balance 649 758 910 100 Weight 175 lb 179 lb 177 lb 3 oz 177 lb 2 oz Last Vital Signs Temp Pulse Resp BP Pulse Ox 98.1 F 87 18 118/53 92 L 05/11/17 09:00 05/11/17 09:00 05/11/17 09:00 05/11/17 09:00 05/11/17 09:00 Active Medications Albuterol Sulfate (Ventolin 0.083% Nebulizer Soln -) 1 amp NEB PRN PRN Albuterol/Ipratropium (Duoneb -) 1 amp NEB QIDR [facility] Last Admin: 05/11/17 06:45 Dose: 1 amp Budesonide/Formoterol Fumarate (Symbicort 160/4.5mcg -) 2 puff IH BID [facility] Last Admin: 05/11/17 09:14 Dose: 2 puff Clopidogrel Bisulfate (Plavix -) 75 mg PO DAILY [facility] Last Admin: 05/11/17 09:14 Dose: 75 mg Digoxin (Lanoxin -) 0.125 mg PO Q48H [facility] Last Admin: 05/10/17 17:01 Dose: 0.125 mg Escitalopram Oxalate (Lexapro -) 20 mg PO DAILY [facility] Last Admin: 05/11/17 09:14 Dose: 20 mg Furosemide (Lasix Injection -) 40 mg IVPUSH DAILY [facility] Last Admin: 05/11/17 09:14 Dose: 40 mg Heparin Sodium (Porcine) (Heparin -) 5,000 unit SQ TID [facility] Last Admin: 05/11/17 06:02 Dose: 5,000 unit Insulin Aspart (Novolog Vial Sliding Scale -) 1 vial SQ ACHS [facility] PRN Reason: Protocol Last Admin: 05/11/17 06:03 Dose: 3 units Insulin Detemir (Levemir Vial) 50 units SQ HS [facility] Last Admin: 05/10/17 21:58 Dose: 50 units Latanoprost (Xalatan 0.005% Eye Drops -) 1 drop OU HS [facility] Last Admin: 05/10/17 21:56 Dose: 1 drop Melatonin (Melatonin) [address] [facility] Last Admin: 05/10/17 23:15 Dose: 3 mg Metoprolol Tartrate (Lopressor -) 25 mg PO BID [facility] Last Admin: 05/11/17 09:14 Dose: 25 mg Rosuvastatin Calcium (Crestor -) [address] [facility] Last Admin: 05/10/17 21:57 Dose: 20 mg Tamsulosin HCl (Flomax -) 0.[address] [facility] Last Admin: 05/10/17 21:57 Dose: 0.4 mg GENERAL: awake, alert, and fully oriented, in no acute distress. HEENT: NC, AT, EOMI NECK: (-) JVD LUNGS: less rales at bases, no wheeze HEART: Regular rate and rhythm, S1, S2 without murmur, rub or gallop. ABDOMEN: Soft, nontender, nondistended, normoactive bowel sounds, no guarding, no rebound, no hepatosplenomegaly, no masses. EXTREMITIES: 2+ pulses, warm, well-perfused, no edema. NEUROLOGICAL: Non-focal PSYCH: Normal mood, normal affect. SKIN: Warm, dry, normal turgor, no rashes or lesions noted Laboratory Results - last 24 hr 05/10/17 05/10/17 05/10/17 11:40 17:00 22:02 Sodium Potassium Chloride Carbon Dioxide Anion Gap BUN Creatinine POC Glucometer 197 240 349 Random Glucose Calcium 05/11/17 05/11/17 05/11/17 04:15 08:20 11:07 Sodium 139 Potassium 4.3 Chloride 106 Carbon Dioxide 22 Anion Gap 11 BUN 47 H Creatinine 1.5 H POC Glucometer 181 156 Random Glucose 129 H D Calcium 9.0 Problem List - Problems (1) COPD exacerbation Code(s): J44.1 - CHRONIC OBSTRUCTIVE PULMONARY DISEASE W (ACUTE) EXACERBATION (2) Dyspnea Code(s): R06.00 - DYSPNEA, UNSPECIFIED Qualifiers: Dyspnea type: dyspnea on exertion Qualified Code(s): R06.09 - Other forms of dyspnea (3) Acute kidney injury Code(s): N17.9 - ACUTE KIDNEY FAILURE, UNSPECIFIED (4) Acute on chronic renal insufficiency Code(s): N28.9 - DISORDER OF KIDNEY AND URETER, UNSPECIFIED; N18.9 - CHRONIC KIDNEY DISEASE, UNSPECIFIED (5) CAD (coronary artery disease) Code(s): I25.10 - ATHSCL HEART DISEASE OF [place] CORONARY ARTERY W/O ANG PCTRS Qualifiers: Coronary Disease-Associated Artery/Lesion type: [place] artery [place] vs. transplanted heart: [place] heart Associated angina: without angina Qualified Code(s): I25.10 - Atherosclerotic heart disease of [place] coronary artery without angina pectoris (6) Congestive heart failure Code(s): I50.9 - HEART FAILURE, UNSPECIFIED Qualifiers: Congestive heart failure type: systolic Congestive heart failure chronicity : chronic Qualified Code(s): I50.22 - Chronic systolic (congestive) heart failure (7) Cough Code(s): R05 - COUGH (8) Hypertension Code(s): I10 - ESSENTIAL (PRIMARY) HYPERTENSION (9) PVD (peripheral vascular disease) Code(s): I73.9 - PERIPHERAL VASCULAR DISEASE, UNSPECIFIED (10) Pulmonary congestion Code(s): R09.89 - OTH SYMPTOMS AND SIGNS INVOLVING THE CIRC AND RESP SYSTEMS (11) Tobacco dependence Code(s): F17.200 - NICOTINE DEPENDENCE, UNSPECIFIED, UNCOMPLICATED (12) Acute decompensated heart failure Code(s): I50.9 - HEART FAILURE, UNSPECIFIED IMP DYSPNEA ACUTE ON CHRONIC SYSTOLIC HF COPD EXACERBATION ASHD S/P CABG PULMONARY HTN DM HLD ACUTE ON CHRONIC KIDNEY INJURY SMOKER PVD PLAN LASIX INHALED BRONCHODILATORS STANDING & PRN SYMBICORT BID O2 SMOKING CESSATION COUNSELED MONITOR OFF SYSTEMIC STEROIDS MONITOR OFF ABX DR KEENE
--- NOTE | 2017-05-11 12:00 | PN ---
Teaching Attending Note Name of Resident: Binta Romano ATTENDING PHYSICIAN STATEMENT I saw and evaluated the patient. I reviewed the resident's note and discussed the case with the resident. I agree with the resident's findings and plan as documented. SUBJECTIVE: No fever or chills. SOB is much better , just was little heavy last night. OBJECTIVE: NAD CV: RRR. no MRG, JVD. Lungs: minimal crackles at R base, good air entry , no wheezing Abd: soft, NT, ND , NL BS . Ext: no edema ASSESSMENT AND PLAN: 76 y/o man with h/o S CHF , HTN, CAD, DM , COPD , and other medical problems who presented with worseningn SOB , and was found to have acute CHF exacerbation and Severely elevated glucose 1- Acute systolic CHF exacerbation, - give an extra dos eof lasix today and then place on po lasix, if he does not remember his home dose , will place on 40 po daily - will benefit from ACEI , ARBS , to be started as out pt after f/u with card - cont BB - digoxin QOD due to renal failure . dose to be adjusted as outpt - Pre-post amulation puls eox , indicated no need for O2 at home 2- IDDM, with severe hyperglycemia: - cont SSI - cont levemir 50 HS 3- APRYL: likely due to prerenal azotemia from heart failure. - improved 4- HTN: can't use ACEI or ARB now, - cont BB DC home . declined Pt eval. walked well with internet media planner
[2017-05-11] MEDS ORDERED: FUROSEMIDE 40 MG/4 ML INJECTABLE VIAL IVPUSH ONE (13:00)
--- NOTE | 2017-05-11 13:21 | DS ---
Physical Exam: SUBJECTIVE: Patient seen and examined at bed side this morning. No complaints. Feels better than yesterday. Denies chest pain, sob, cough, palpitation, abdominal pain, nausea or vomiting. Bowel/Bladder habit normal. Sleep/Appetite normal. OBJECTIVE: Vital Signs Period Temp Pulse Resp BP Sys/Garcia Pulse Ox Last 24 Hr 97.9 F-98.4 F 70-87 18-23 100-135/51-65 92-98 PHYSICAL EXAM GENERAL: Elderly male, sitting comfortably in bed, is awake, alert, and fully oriented, in no acute distress. HEAD: Normal with no signs of trauma. EYES: EOM intact, no pallor or icterus. ENT: Ears normal, moist mucous membranes. NECK: Trachea midline, full range of motion, supple. LUNGS: Breath sounds equal, clear to auscultation bilaterally, no wheezes, no crackles, no accessory muscle use. HEART: Regular rate and rhythm, S1, S2 without murmur, rub or gallop. ABDOMEN: Soft, nontender, nondistended, normoactive bowel sounds, no guarding, no rebound, no hepatosplenomegaly, no masses. EXTREMITIES: 2+ pulses, warm, well-perfused, no edema. NEUROLOGICAL: No facial droop, tongue in midline, Cranial nerves II through XII grossly intact. Normal speech, Normal gait. PSYCH: Normal mood, normal affect. SKIN: Warm, dry, normal turgor, no rashes or lesions noted. LABS Laboratory Results - last 24 hr 05/10/17 05/10/17 05/11/17 17:00 22:02 04:15 Sodium Potassium Chloride Carbon Dioxide Anion Gap BUN Creatinine POC Glucometer 240 349 181 Random Glucose Calcium 05/11/17 05/11/17 08:20 11:07 Sodium 139 Potassium 4.3 Chloride 106 Carbon Dioxide 22 Anion Gap 11 BUN 47 H Creatinine 1.5 H POC Glucometer 156 Random Glucose 129 H D Calcium 9.0 HOSPITAL COURSE: Date of Admission:05/08/17 Date of Discharge: 05/11/17 Patient is an 76 year old Male with significant past medical history of sytolic CHF, HTN, CAD, IDDM, COPD, BPH, OA, chronic back pain, PUD, and HLD who presented with worsening SOB, and was found to have acute CHF exacerbation and severe hyperglycemia. # Acute exacerbation of systolic CHF exacerbation likely secondary to discontinuing home lasix becasue of of hypotension. Now his breathing has improved. Lungs are clear bilaterally. CHF exacerbation has resolved. Will continue PO Lasix 40mg Daily. Continue Digoxin 0.125 mg every other day due to CKD. Continue Metoprolol. Most likely will benefit from ACEI and ARBS , to be started as outpatient after f/u with cardiology. Pre and post exercise saturation was done which shows he doesn't qualify for home oxygen. He is saturation > 92 % in RA. # Diabetes Mellitus-Continue Insulin Glargine 50 U Daily. Started on Insulin sliding scale Sugar unit 101-150 0 151-200 2 201-250 4 251-300 6 301-350 8 351-400 10 >400 12 and call the doctor. Watch for hypoglycemic episodes. # Acute on chronic renal insufficiency- creatinine around baseline. Avoid Nephrotoxic drugs. Digoxin to be taken every other day. #HTN-controlled. Continue home metoprolol #BPH-continue home flomax #HLD-continue home crestor # Depression-continue home lexapro #H/o achalasia s/p heller myotomy-MBS: recommended soft regular diet and thin liquids # nicotine dependence-pt refused nicotine patch # Patient walked more than 100 ft without support. Patient reports he uses cane infrequently. Advised pt to use it and stressed the importance of its use to prevent from falling. # Adviced pt to f/up with branch specialist and PCP in a week. Minutes to complete discharge: 40 Discharge Summary Reason For Visit: CONGESTIVE HEART FAILURE Current Active Problems Acute on chronic renal insufficiency (Acute) COPD exacerbation (Acute) Congestive heart failure (Acute) Dyspnea (Acute) Condition: Improved - Instructions Diet, Activity, Other Instructions: You were admitted for evaluation and treatment of acute exacerbation of Congestive Heart Failure (CHF). Now it has improved with medication. Please take the prescribed medications as directed: ( those are hanges to your old medications ) 1. Lasix 40mg PO once daily 2. Digoxin 0.125 mg every other day (you took one on 04/30/17 so please take it on 05/12/2017) 3. Please continue taking long acting Insulin 50 U daily 4. Here is a new prescription for Insulin sliding scale: Sugar unit 101-150 0 151-200 2 201-250 4 251-300 6 301-350 8 351-400 10 >400 12 and call the doctor F/up with PCP in a week and Slasher Operator, dr. Han in a week. Healthy diabetic diet and daily exercise is recommended. If your symptom gets worse or you develop any new symptoms please visit the ED immediately. please get blood work in 1 week ad fax to your PCP please check your sugar 3 times a day before each meal, if > 300 notify your doctor , if < 70 with symptoms , drink orange juice and notify your doctor immediately . Referrals: Vikash Guerra MD [Primary Care Provider] - 1 Week Abdirizak Strange MD [Staff Physician] - 1 Week Disposition: HOME - Home Medications Comprehensive Discharge Medication List: Ambulatory Orders Albuterol 0.083% Nebulizer Fatuma [Ventolin 0.083% Nebulizer Soln -] 1 amp NEB PRN 12/24/16 Albuterol Sulfate [Proair Respiclick] 90 mcg IH TID PRN 12/24/16 Bimatoprost [Lumigan] 1 drop OU DAILY 12/24/16 Budesonide/Formeterol Fumarate [SYMBICORT 160/4.5mcg -] 2 inh PO BID 12/24/16 Clopidogrel Bisulfate [Plavix -] 75 mg PO DAILY 12/24/16 Escitalopram Oxalate [Lexapro -] 20 mg PO HS 12/24/16 Insulin Glargine,Hum.rec.anlog [Lantus Solostar PEN -] 50 units SQ HS 12/24/16 Rosuvastatin Calcium [Crestor] 20 mg PO HS 12/24/16 Tamsulosin HCl [Flomax] 0.4 mg PO HS 12/24/16 Insulin Lispro [Humalog Kwikpen U-100] 12 - 26 unit SQ TID #1 units 12/25/16 Bimatoprost [Lumigan] 1 drop IO DAILY 05/08/17 Metoprolol Tartrate 25 mg PO BID 05/08/17 Digoxin [Lanoxin -] 0.125 mg PO Q2D #15 tablet 05/11/17 Furosemide [Lasix -] 40 mg PO DAILY #30 tablet 05/11/17 This patient is new to me today: Yes Date on this admission: 05/11/17 Emergency Visit: Yes ED Registration Date: 05/08/17 Care time: The patient presented to the Emergency Department on the above date and was hospitalized for further evaluation of their emergent condition. Critical Care patient: No - Discharge Referral Referred to [facility] No Physician Referral: Vikash Aguilera MD ([facility])
--- NOTE | 2017-05-11 14:09 | EKG ---
Test Reason : Blood Pressure : / mmHG Vent. 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
[2017-05-11 14:55] VITALS: BP 126/63; PULSE 72; TEMP 97.6
[2017-05-11] MEDS ORDERED: MELATONIN 1 MG TABLET PO SCH (22:00)
== END 2017-05-11 14:54 | disposition home or self-care (01) | DRG 291 ==
LOC: JER 19:44 → JERBED 05-08 00:23 → OBSVTOIN 05-08 01:16 → J4S 05-08 11:39
PROVIDERS: ADMIT Internal Medicine; ATTEND Internal Medicine
DX: I13.0 Hypertensive heart and chronic kidney disease with heart failure and stage 1 through stage 4 chronic kidney disease, or unspecified chronic kidney disease (principal); I50.23 Acute on chronic systolic (congestive) heart failure; J44.1 Chronic obstructive pulmonary disease with (acute) exacerbation; N17.9 Acute kidney failure, unspecified; I25.10 Atherosclerotic heart disease of native coronary artery without angina pectoris; Z95.1 Presence of aortocoronary bypass graft; M54.9 Dorsalgia, unspecified; K27.9 Peptic ulcer, site unspecified, unspecified as acute or chronic, without hemorrhage or perforation; R13.19 Other dysphagia; E11.65 Type 2 diabetes mellitus with hyperglycemia; N40.0 Benign prostatic hyperplasia without lower urinary tract symptoms; F17.210 Nicotine dependence, cigarettes, uncomplicated; E78.5 Hyperlipidemia, unspecified; I27.20 Pulmonary hypertension, unspecified; E11.22 Type 2 diabetes mellitus with diabetic chronic kidney disease; N18.9 Chronic kidney disease, unspecified; E11.51 Type 2 diabetes mellitus with diabetic peripheral angiopathy without gangrene; I44.0 Atrioventricular block, first degree; I95.9 Hypotension, unspecified; Z79.4 Long term (current) use of insulin
CPT/HCPCS: 36415; 71010-TC; 71020-TC; 74230-TC; 80048; 80053; 81003; 81015; 82550; 83735; 83880; 84100; 84484; 85025; 85027; 85610; 87070; 87205; 87804; 90688; 92611-GN; 93005; 93010; 93306-TC; 94640; 94761; 99285-25; G0008; G0378; J1644

== ENCOUNTER 2017-07-19 11:59 | Inpatient (IN) | payer OTHER, MEDICARE ==
--- NOTE | 2017-07-19 12:16 | PDOC ---
History of Present Illness - History of Present Illness Initial Comments: 07/19/17 12:27 Mr. Gates is a 77 yo male w/ pmh of HTN, HLD, DM, COPD, CHF presenting for evaluation of worsening cough and shortness of breath over the last week. He reports that he was evaluated 6 weeks ago and told that he has fluid on his lungs due to his CHF. 2 weeks ago he was switched from lasix 40mg / day to 20mg / day over concerns he would become to dehydrated. His symptoms started following this. He reports his cough is productive of white to sometimes yellow sputum. He has no other complaints at this time. The patient denies chest pain, headache and dizziness. Denies fever, chills, nausea, vomit, diarrhea and constipation. Denies dysuria, frequency, urgency and hematuria. Allergies: Pregabalin <Huber Montgomery - Last Filed: 07/19/17 14:58> <Marianna Veloz - Last Filed: 07/19/17 15:02> - General Chief Complaint: Shortness of Breath Stated Complaint: SOB Time Seen by Provider: 07/19/17 12:16 Past History - Past Medical History Anemia: Yes Asthma: Yes Cancer: No (family h/o leukemia) Cardiac Disorders: Yes (4 stents) CVA: No COPD: Yes CHF: Yes Dementia: No Diabetes: Yes GI Disorders: Yes (ESOPHAGEAL DYSMOTILITY, GASTRITIS, H-PYLORI) Disorders: Yes (PROSTATE BX) HTN: Yes Hypercholesterolemia: Yes Kidney Stones: No Liver Disease: No Psychiatric Problems: No Seizures: No Thyroid Disease: No Lung CA: No - Surgical History Abdominal Surgery: Yes (PARTIAL GASTRECTOMY,H/O ULCERS EGD BIOPSY 2009,EGD H- PYLORI 2006,COLON 2003) Appendectomy: Yes Cardiac Surgery: Yes (cabg) Cholecystectomy: Yes Lung Surgery: No Neurologic Surgery: No Orthopedic Surgery: No - Family Disease History Family Disease History: Heart Disease: Father - Reproductive History Testicular Surgery: Yes - Immunization History Immunization Up to Date: Yes - Suicide/Smoking/Psychosocial Hx Smoking Status: Yes Smoking History: Never smoked Years of Tobacco Use: 50 Have you smoked in the past 12 months: No Number of Cigarettes Smoked Daily: 20 Information on smoking cessation initiated: No 'Breaking Loose' booklet given: 02/05/17 Hx Alcohol Use: No Drug/Substance Use Hx: No Substance Use Type: None Hx Substance Use Treatment: No <CharanjitlauraHuber chaves - Last Filed: 07/19/17 14:58> <Marianna Veloz - Last Filed: 07/19/17 15:02> - Past Medical History Allergies/Adverse Reactions: Allergies Allergy/AdvReac Type Severity Reaction Status Date / Time pregabalin [From Lyrica] Allergy Verified 07/19/17 12:03 Home Medications: Ambulatory Orders Albuterol 0.083% Nebulizer Fatuma [Ventolin 0.083% Nebulizer Soln -] 1 amp NEB PRN 12/24/16 Albuterol Sulfate [Proair Respiclick] 90 mcg IH TID PRN 12/24/16 Bimatoprost [Lumigan] 1 drop OU DAILY 12/24/16 Budesonide/Formeterol Fumarate [SYMBICORT 160/4.5mcg -] 2 inh PO BID 12/24/16 Clopidogrel Bisulfate [Plavix -] 75 mg PO DAILY 12/24/16 Escitalopram Oxalate [Lexapro -] 20 mg PO HS 12/24/16 Insulin Glargine,Hum.rec.anlog [Lantus Solostar PEN -] 50 units SQ HS 12/24/16 Rosuvastatin Calcium [Crestor] 20 mg PO HS 12/24/16 Tamsulosin HCl [Flomax] 0.4 mg PO HS 12/24/16 Metoprolol Tartrate 25 mg PO BID 05/08/17 Digoxin [Lanoxin -] 0.125 mg PO Q2D #15 tablet 05/11/17 Furosemide [Lasix -] 40 mg PO DAILY #30 tablet 05/11/17 Insulin Sliding Scale [Novolog Vial Sliding Scale -] See Protocol SQ ACHS #7 pen 05/11/17 Review of Systems - Review of Systems Comments:: 07/19/17 12:51 GENERAL/CONSTITUTIONAL: No fever or chills. No weakness. HEAD, EYES, EARS, NOSE AND THROAT: No change in vision. No ear pain or discharge. No sore throat. CARDIOVASCULAR: +Increasing shortness of breath with "panting" per . No chest pain. RESPIRATORY: +Increase of normal cough from baseline w/ yellow and white sputum. No wheezing or hemoptysis. GASTROINTESTINAL: No nausea, vomiting, diarrhea or constipation. GENITOURINARY: No dysuria, frequency, or change in urination. MUSCULOSKELETAL: No joint or muscle swelling or pain. No neck or back pain. SKIN: No rash NEUROLOGIC: No headache, vertigo, loss of consciousness, or change in strength/ sensation. ENDOCRINE: No increased thirst. No abnormal weight change HEMATOLOGIC/LYMPHATIC: No anemia, easy bleeding, or history of blood clots. ALLERGIC/IMMUNOLOGIC: No hives or skin allergy. <Huber Montgomery - Last Filed: 07/19/17 14:58> *Physical Exam - Vital Signs Last Vital Signs Temp Pulse Resp BP Pulse Ox 100 H 20 139/68 99 07/19/17 12:01 07/19/17 12:01 07/19/17 12:01 07/19/17 12:01 - Physical Exam Comments: 07/19/17 12:52 GENERAL: Awake, alert, and fully oriented, in no acute distress HEAD: No signs of trauma, normocephalic, atraumatic EYES: PERRLA, EOMI, sclera anicteric, conjunctiva clear ENT: Auricles normal inspection, hearing grossly normal, nares patent, oropharynx clear without exudates. Moist mucosa NECK: Normal ROM, supple, no lymphadenopathy, JVD, or masses LUNGS: No distress, speaks full sentences, clear to auscultation bilaterally HEART: Regular rate and rhythm, normal S1 and S2, no murmurs, rubs or gallops, peripheral pulses normal and equal bilaterally. ABDOMEN: Soft, nontender, normoactive bowel sounds. No guarding, no rebound. No masses EXTREMITIES: Normal inspection, Normal range of motion, no edema. No clubbing or cyanosis. NEUROLOGICAL: Cranial nerves II through XII grossly intact. Normal speech, normal gait, no focal sensorimotor deficits SKIN: Warm, Dry, normal turgor, no rashes or lesions noted. <Huber Montgomery - Last Filed: 07/19/17 14:58> - Vital Signs Last Vital Signs Temp Pulse Resp BP Pulse Ox 100 H 20 139/68 99 07/19/17 12:01 07/19/17 12:01 07/19/17 12:01 07/19/17 12:01 <Marianna Veloz - Last Filed: 07/19/17 15:02> Heart Score/ECG Review - History History: Slightly suspicious - Electrocardiogram EKG: Non specific repolarization disturbance - Age Age: >/= 65 - Risk Factors Risk Factors Heart Score: Yes Hx Hypercholesterolemia, Yes Hx Hypertension, Yes Hx Diabetes, Yes Smoking History Based on the list above the patient has:: >/=3 risk factors or Hx atherosclerotic disease - Troponin Troponin: 1-3x normal limit - Score Heart Score - Total: 6 <Huber Montgomery - Last Filed: 07/19/17 14:58> ED Treatment Course - LABORATORY CBC & Chemistry Diagram: 07/19/17 11:09 07/19/17 11:09 <Huber Montgomery - Last Filed: 07/19/17 14:58> - LABORATORY CBC & Chemistry Diagram: 07/19/17 11:09 07/19/17 11:09 - ADDITIONAL ORDERS Additional order review: Laboratory Results 07/19/17 07/19/17 07/19/17 12:10 12:00 11:09 Sodium 139 Potassium 4.1 Chloride 105 Carbon Dioxide 21 Anion Gap 13 BUN 24 H D Creatinine 1.6 H Creat Clearance w eGFR 42.35 POC Glucometer 278.72800 Random Glucose 250 H D Calcium 8.5 Total Bilirubin 0.8 AST 14 L ALT 19 Alkaline Phosphatase 77 Creatine Kinase 57 Troponin I 0.10 H D Total Protein 6.5 Albumin 3.1 L Urine Color Yellow Urine Appearance Clear Urine pH 5.0 Ur Specific [place] 1.018 Urine Protein 3+ H Urine Glucose (UA) 3+ H Urine Ketones Negative Urine Blood Negative Urine Nitrite Negative Urine Bilirubin Negative Urine Urobilinogen 2.0 Ur Leukocyte Esterase 2+ H Urine WBC (Auto) 52 Urine RBC (Auto) None Ur Epithelial Cells Rare Hyaline Casts 1 07/19/17 07/19/17 12:10 11:09 RBC 4.39 MCV 78.7 L MCHC 33.8 RDW 18.7 H MPV 7.6 D Neutrophils % 79.7 Lymphocytes % 10.2 D Monocytes % 9.2 D Eosinophils % 0.2 D Basophils % 0.7 D POC Glucometer 278.75107 - Consult/PCP Time Called: 15:01 (called service for Compensation Analyst - Abdirizak Strange) <Marianna Veloz - Last Filed: 07/19/17 15:02> Medical Decision Making - Medical Decision Making 07/19/17 14:02 Mr. Gates is a 77 yo male w/ pmh as described who presents for evaluation of cough and increasing SOB. Fluid overload considered for cause with recent change in lasix dosing, EKG/CXR/CBC/CMP/UA/Cardiac Panel sent for further evaluation. CXR noted to be clear. EKG unchanged from previous. CBC/CMP/UA as below. Patient noted to have UTI. 07/19/17 14:41 Troponin notable for 0.10 value. Pt. Heart score 6. Admitting patient for further workup. 07/19/17 14:58 Patient admitted to hospitalist. Cardiology paged for evaluation. Rocephin given for UTI treatment. <Huber Montgomery - Last Filed: 07/19/17 14:58> *DC/Admit/Observation/Transfer - Discharge Dispostion Admit: Yes <Huber Montgomery - Last Filed: 07/19/17 14:58> <Marianna Veloz - Last Filed: 07/19/17 15:02> Diagnosis at time of Disposition: Elevated troponin Dyspnea Qualifiers: Dyspnea type: unspecified Qualified Code(s): R06.00 - Dyspnea, unspecified - Referrals Referrals: Vikash Guerra MD [Primary Care Provider] -
--- NOTE | 2017-07-19 12:29 | PDOC ---
Attending Attestation - HPI HPI: 07/19/17 13:11 Patient is a 77 M, with PMHx of hypertension, hyperlipidemia, diabetes, chronic obstructive pulmonary disorder, and congestive heart failure, who presents with worsening cough and shortness of breath for the past week. Patient reports that he was here 6 weeks ago for fluid on his lungs to due his CHF. He reports that his shortness of breath is worse upon exertion. He is normally able to walk less than half a block but now he is out of breath after a few steps. He denies chest pain, fever, nausea, vomiting, diarrhea, rashes, bumps, or bruises. Generation Technologist: Abdirizak Strange - Physicial Exam PE: 07/19/17 13:11 Vitals: Triage Vital signs reviewed General Appearance: no acute distress, well nourished well developed, Head: Atraumatic, normocephalic Chest Wall: Nontender Cardiac: Regular rate and rhythm, no murmurs, no rubs, no gallops, Lungs: Crackles at the bases. Abdomen: Soft, nondistended, normal bowel sounds, nontender to palpation Rectal: Exam deferred Extremities: Full range of motion to all extremities, no cyanosis, clubbing, or edema Skin: Warm and dry, no rashes or lesions, no petechiae <Marianna Veloz - Last Filed: 07/19/17 13:11> - Resident Resident Name: [email or web address] - ED Attending Attestation I have performed the following: I have examined & evaluated the patient, The case was reviewed & discussed with the resident, I agree w/resident's findings & plan, Exceptions are as noted - Medical Decision Making 07/19/17 15:47 77 years old past medical history significant for hypertension hyperlipidemia diabetes COPD congestive heart failure presents with worsening cough shortness of breath for the last week patient also complaining with dyspnea on exertion, walk a few breaths Differential diagnosis includes ACS COPD CHF We'll check EKG labs troponin BNP chest x-ray and reassess Reevaluation troponin of indeterminant value EKG unchanged from prior BNP normal chest x-ray were no acute pathology will observe overnight for serial troponins further evaluation of ACS versus worsening CHF patient will require echo and cardiology consultation A portion of this note was documented by scribe services under my direction I reviewed the details of note within reason and agree with the documentation with the following case summary and management plan written by me 07/19/17 16:40 <Miguel Tyler - Last Filed: 07/19/17 16:41> Heart Score/ECG Review - ECG Impressions Comment:: 07/19/17 15:[address] elevations or T-wave inversions septal infarct age indeterminate No change compared to prior. <Miguel Tyler - Last Filed: 07/19/17 16:41>
[2017-07-19 13:18] LABS: BASO % 0.7 % (0-2.0); EOS % 0.2 % (0-4.5); HEMATOCRIT 34.6 % (35.4-49); HEMOGLOBIN 11.7 GM/dL (11.7-16.9); LYMPH % 10.2 % (8-40); MCH 26.6 pg (25.7-33.7); MCHC 33.8 g/dl (32.0-35.9); MEAN CELL VOLUME 78.7 fl (80-96); MEAN PLT VOLUME 7.6 fl (7.5-11.1); MONO % 9.2 % (3.8-10.2); NEUT % 79.7 % (42.8-82.8); PLATELET COUNT 164 K/MM3 (134-434); RBC 4.39 M/mm3 (4.00-5.60); RDW 18.7 % (11.9-15.9); WHITE BLOOD COUNT 7.5 K/mm3 (4.0-10.0)
[2017-07-19 13:53] LABS: URINE APPEARANCE CLEAR; URINE BILIRUBIN NEGATIVE (NEGATIVE); URINE BLOOD NEGATIVE (NEGATIVE); URINE COLOR YELLOW; URINE GLUCOSE (UA) 3+ (NEGATIVE); URINE KETONE NEGATIVE (NEGATIVE); URINE NITRITE NEGATIVE (NEGATIVE)
[2017-07-19 13:58] LABS: URINE LEUK ESTERASE 2+ (NEGATIVE); URINE PROTEIN 3+ (NEGATIVE)
[2017-07-19 14:02] LABS: EPI CELLS RARE /HPF (FEW); URINE HYALINE CAST 1 /lpf
[2017-07-19 14:24] LABS: ALBUMIN 3.1 g/dl (3.4-5.0); ANION GAP 13 (8-16); BILIRUBIN,TOTAL 0.8 mg/dL (0.2-1.0); BLOOD UREA NITROGEN 24 mg/dL (7-18); CALCIUM 8.5 mg/dL (8.5-10.1); CHLORIDE 105 mmol/L (98-107); CO2 21 mmol/L (21-32); CREATININE 1.6 mg/dL (0.7-1.3); GLUCOSE,RANDOM 250 mg/dL (74-106); POTASSIUM 4.1 mmol/L (3.5-5.1); SGOT/AST 14 U/L (15-37); SGPT/ALT 19 U/L (12-78); SODIUM 139 mmol/L (136-145); TOT PROT 6.5 g/dl (6.4-8.2)
[2017-07-19 14:27] LABS: ALK PHOS 77 U/L (45-117)
[2017-07-19] MEDS ORDERED: cefTRIAXone 1 GM/50 ML BAG (PRE-DOCKED) IVPB ONE (14:59)
[2017-07-19] MEDS ORDERED: CEFTRIAXONE 1 GM/50 ML BAG ONE (15:11)
--- NOTE | 2017-07-19 15:55 | HP ---
<Aparna Jacobs - Last Filed: 07/19/17 16:37> CHIEF COMPLAINT: shortness of breath x2 weeks PCP: Dr. Guerra HISTORY OF PRESENT ILLNESS: This is a 77 year old male with PMHx of severe systolic CHF, HTN, CAD s/p stenting (triple bypass about 10 years ago), COPD, CKD, active smoker, PVD s/p angioplasty, IDDM, who presented to the ED with 2 weeks of shortness of breath and cough with whitish sputum. The patient reports that about 2 weeks ago he was seen by his stove cleaner and instructed to decrease his dose of Lasix from 40mg po daily to 20mg po daily due to concerns of dehydration. The patient admits to not drinking water throughout the day. The patient reports thick, white sputum production. He states his shortness of breath is worse on exertion. He denies any fever, chills, chest pain, diarrhea, nausea, vomiting, headache, dizziness. He states that he is experiencing some urinary urgency, but denies dysuria, frequency. ER course was notable for: (1) pulse 100, BP 139/68, resp 20, O2 99 % (2) Cr 1.6 (3) Trop 0.1 (4) Chest x-ray with no acute pathology. prominent heart, previous ohs Recent Travel: denies PAST MEDICAL HISTORY: as above PAST SURGICAL HISTORY: Appendectomy As above Social History: Smokin cigarettes/day. Smoker for 60 years Alcohol: denies Drugs: denies Family History: Allergies pregabalin [From Lyrica] Allergy (Verified 07/19/17 12:03) HOME MEDICATIONS: Home Medications Medication Instructions Recorded Albuterol 0.083% Nebulizer Fatuma 1 amp NEB PRN 12/24/16 [Ventolin 0.083% Nebulizer Soln -] Albuterol Sulfate [Proair 90 mcg IH TID PRN 12/24/16 Respiclick] Bimatoprost [Lumigan] 1 drop OU DAILY 12/24/16 Budesonide/Formeterol Fumarate 2 inh PO BID 12/24/16 [SYMBICORT 160/4.5mcg -] Clopidogrel Bisulfate [Plavix -] 75 mg PO DAILY 12/24/16 Escitalopram Oxalate [Lexapro -] 20 mg PO HS 12/24/16 Insulin Glargine,Hum.rec.anlog 50 units SQ HS 12/24/16 [Lantus Solostar PEN -] Rosuvastatin Calcium [Crestor] 20 mg PO HS 12/24/16 Tamsulosin HCl [Flomax] 0.4 mg PO HS 12/24/16 Metoprolol Tartrate 25 mg PO BID 05/08/17 Digoxin [Lanoxin -] 0.125 mg PO Q2D #15 tablet 05/11/17 Furosemide [Lasix -] 40 mg PO DAILY #30 tablet 05/11/17 Insulin Sliding Scale [Novolog See Protocol SQ ACHS #7 pen 05/11/17 Vial Sliding Scale -] REVIEW OF SYSTEMS CONSTITUTIONAL: Absent: fever, chills, diaphoresis, generalized weakness, malaise, loss of appetite, weight change HEENT: Absent: rhinorrhea, nasal congestion, throat pain, throat swelling, difficulty swallowing, mouth swelling, ear pain, eye pain, visual changes CARDIOVASCULAR: Absent: chest pain, syncope, palpitations, irregular heart rate , lightheadedness, peripheral edema RESPIRATORY: Cough with whitish sputum and shortness of breath x2 weeks. Absent : wheezing, stridor, hemoptysis GASTROINTESTINAL:Absent: abdominal pain, abdominal distension, nausea, vomiting , diarrhea, constipation, melena, hematochezia GENITOURINARY: Frequency. Absent: dysuria, urgency, hesitancy, hematuria, flank pain, genital pain MUSCULOSKELETAL: Absent: myalgia, arthralgia, joint swelling, back pain, neck pain SKIN: Absent: rash, itching, pallor HEMATOLOGIC/IMMUNOLOGIC: Absent: easy bleeding, easy bruising, lymphadenopathy, frequent infections ENDOCRINE:Absent: unexplained weight gain, unexplained weight loss, heat intolerance, cold intolerance NEUROLOGIC: Absent: headache, focal weakness or paresthesias, dizziness, unsteady gait, seizure, mental status changes, bladder or bowel incontinence PSYCHIATRIC: Absent: anxiety, depression, suicidal or homicidal ideation, hallucinations. PHYSICAL EXAMINATION Vital Signs - 24 hr 07/19/17 12:01 Pulse Rate 100 H Respiratory 20 Rate Blood Pressure 139/68 O2 Sat by Pulse 99 Oximetry (%) GENERAL: Awake, alert, and fully oriented, in no acute distress. HEAD: Normal with no signs of trauma. EYES: Pupils equal, round and reactive to light, extraocular movements intact, sclera anicteric, conjunctiva clear. No lid lag. EARS, NOSE, THROAT: Ears normal, nares patent, oropharynx clear without exudates. Moist mucous membranes. NECK: Normal range of motion, supple without lymphadenopathy, JVD, or masses. LUNGS: Breath sounds equal, clear to auscultation bilaterally. No wheezes, and no crackles. No accessory muscle use. HEART: Regular rate and rhythm, normal S1 and S2 ABDOMEN: Soft, nontender, not distended, normoactive bowel sounds, no guarding, no rebound, no masses. No hepatomegaly or splenomegaly. MUSCULOSKELETAL: Normal range of motion at all joints. No bony deformities or tenderness. No CVA tenderness. UPPER EXTREMITIES: 2+ pulses, warm, well-perfused. No cyanosis. No clubbing. No peripheral edema. LOWER EXTREMITIES: 2+ pulses, warm, well-perfused. No calf tenderness. No peripheral edema. NEUROLOGICAL: Cranial nerves II-XII intact. Normal speech. Gait not observed PSYCHIATRIC: Cooperative. Good eye contact. Appropriate mood and affect. SKIN: Warm, dry, normal turgor, no rashes or lesions noted, normal capillary refill. Laboratory Results - last 24 hr 07/19/17 07/19/17 07/19/17 11:09 11:09 12:00 WBC 7.5 RBC 4.39 Hgb 11.7 Hct 34.6 L MCV 78.7 L MCH 26.6 MCHC 33.8 RDW 18.7 H Plt Count 164 MPV 7.6 D Neutrophils % 79.7 Lymphocytes % 10.2 D Monocytes % 9.2 D Eosinophils % 0.2 D Basophils % 0.7 D Sodium 139 Potassium 4.1 Chloride 105 Carbon Dioxide 21 Anion Gap 13 BUN 24 H D Creatinine 1.6 H Creat Clearance w eGFR 42.35 POC Glucometer Random Glucose 250 H D Calcium 8.5 Total Bilirubin 0.8 AST 14 L ALT 19 Alkaline Phosphatase 77 Creatine Kinase 57 Troponin I 0.10 H D Total Protein 6.5 Albumin 3.1 L Urine Color Yellow Urine Appearance Clear Urine pH 5.0 Ur Specific [place] 1.018 Urine Protein 3+ H Urine Glucose (UA) 3+ H Urine Ketones Negative Urine Blood Negative Urine Nitrite Negative Urine Bilirubin Negative Urine Urobilinogen 2.0 Ur Leukocyte Esterase 2+ H Urine WBC (Auto) 52 Urine RBC (Auto) None Ur Epithelial Cells Rare Hyaline Casts 1 07/19/17 12:10 WBC RBC Hgb Hct MCV MCH MCHC RDW Plt Count MPV Neutrophils % Lymphocytes % Monocytes % Eosinophils % Basophils % Sodium Potassium Chloride Carbon Dioxide Anion Gap BUN Creatinine Creat Clearance w eGFR POC Glucometer [phone] Random Glucose Calcium Total Bilirubin AST ALT Alkaline Phosphatase Creatine Kinase Troponin I Total Protein Albumin Urine Color Urine Appearance Urine pH Ur Specific [place] Urine Protein Urine Glucose (UA) Urine Ketones Urine Blood Urine Nitrite Urine Bilirubin Urine Urobilinogen Ur Leukocyte Esterase Urine WBC (Auto) Urine RBC (Auto) Ur Epithelial Cells Hyaline Casts Assessment: This is a 77 year old male with PMHx of severe systolic CHF, HTN, CAD s/p stenting (triple bypass about 10 years ago), COPD, CKD, active smoker, PVD s/p angioplasty, IDDM, who presented to the ED with 2 weeks of shortness of breath and cough with whitish sputum. Plan: 1) Elevated troponin - In the setting of no ACS symptoms - Continue to trend - Cardiac monitoring - F/u ECHO - Patient reports GI bleeding with ASA, will hold off on giving at this time - F/u cardiology consult 2) Shortness of breath, cough with whitish sputum - Viral syndrome vs. CAP vs. COPD exacerbation, vs. CHF exacerbation - Chest X-ray with no active process - No evidence of heart failure at this time (no JVD, no lower extremity edema). F/u BNP - No evidence of acute COPD exacerbation. O2 96% on RA, no wheezing on exam - Possible viral process. Low suspicion for influenza. Patient does not have any sick contacts, denies fever, chills, weakness - F/u sputum culture - Monitor closely for signs and symptoms of above processes 3) UTI - UA with 2+ leuks, 52 WBC - Started on Ceftriaxone - F/u urine culture 4) COPD - Albuterol nebs prn - Continue Symbicort 5) PVD s/p angioplasty - Continue Plavix - Continue Crestor 6) CAD s/p stenting - Continue Plavix - Not on ASA 2/2 GI bleeding 7) Severe systolic heart failure - Continue Digoxin 8) IDDM - Continue Glargine - BGM ACHS - ISS ACHS 9) F/E/N: - Sodium controlled diet - Monitor electrolytes - Sodium controlled/diabetic diet 10) Prophylaxis: - Heparin 5,000u sq tid - OOB ambulating 11) Dispo: - Once condition improves CODE STATUS: FULL CODE Hospitalist Screening - Colonoscopy Questionnaire Colonoscopy Questionnaire: Colonoscopy Questionnaire <Emy Mcclellan - Last Filed: 07/20/17 14:32> CHIEF COMPLAINT: PCP: HISTORY OF PRESENT ILLNESS: ER course was notable for: (1) (2) (3) Recent Travel: PAST MEDICAL HISTORY: PAST SURGICAL HISTORY: Social History: Smoking: Alcohol: Drugs: Family History: Allergies pregabalin [From Lyrica] Allergy (Verified 07/19/17 12:03) HOME MEDICATIONS: Home Medications Medication Instructions Recorded Albuterol 0.083% Nebulizer Fatuma 1 amp NEB PRN 12/24/16 [Ventolin 0.083% Nebulizer Soln -] Albuterol Sulfate [Proair 90 mcg IH TID PRN 12/24/16 Respiclick] Bimatoprost [Lumigan] 1 drop OU DAILY 12/24/16 Budesonide/Formeterol Fumarate 2 inh PO BID 12/24/16 [SYMBICORT 160/4.5mcg -] Clopidogrel Bisulfate [Plavix -] 75 mg PO DAILY 12/24/16 Escitalopram Oxalate [Lexapro -] 20 mg PO HS 12/24/16 Insulin Glargine,Hum.rec.anlog 50 units SQ HS 12/24/16 [Lantus Solostar PEN -] Rosuvastatin Calcium [Crestor] 20 mg PO HS 12/24/16 Tamsulosin HCl [Flomax] 1.8 mg PO HS 12/24/16 Digoxin [Lanoxin -] 0.125 mg PO Q2D #15 tablet 05/11/17 Enalapril Maleate 2.5 mg PO Q2D 07/19/17 Furosemide [Lasix -] 20 mg PO DAILY 07/19/17 Furosemide [Lasix] 20 mg PO AM 07/19/17 Humalog 07/19/17 Insulin Lispro [Humalog] 5 units SQ PRN PRN 07/19/17 Rosuvastatin Calcium [Crestor] 20 mg PO HS 07/19/17 Venlafaxine HCl ER [Effexor Xr -] 75 mg PO BID 07/19/17 REVIEW OF SYSTEMS CONSTITUTIONAL: Absent: fever, chills, diaphoresis, generalized weakness, malaise, loss of appetite, weight change HEENT: Absent: rhinorrhea, nasal congestion, throat pain, throat swelling, difficulty swallowing, mouth swelling, ear pain, eye pain, visual changes CARDIOVASCULAR: Absent: chest pain, syncope, palpitations, irregular heart rate, lightheadedness , peripheral edema RESPIRATORY: Absent: cough, shortness of breath, dyspnea with exertion, orthopnea, wheezing, stridor, hemoptysis GASTROINTESTINAL: Absent: abdominal pain, abdominal distension, nausea, vomiting, diarrhea, constipation, melena, hematochezia GENITOURINARY: Absent: dysuria, frequency, urgency, hesitancy, hematuria, flank pain, genital pain MUSCULOSKELETAL: Absent: myalgia, arthralgia, joint swelling, back pain, neck pain SKIN: Absent: rash, itching, pallor HEMATOLOGIC/IMMUNOLOGIC: Absent: easy bleeding, easy bruising, lymphadenopathy, frequent infections ENDOCRINE: Absent: unexplained weight gain, unexplained weight loss, heat intolerance, cold intolerance NEUROLOGIC: Absent: headache, focal weakness or paresthesias, dizziness, unsteady gait, seizure, mental status changes, bladder or bowel incontinence PSYCHIATRIC: Absent: anxiety, depression, suicidal or homicidal ideation, hallucinations. PHYSICAL EXAMINATION Vital Signs - 24 hr 07/19/17 07/19/17 07/19/17 16:20 18:27 22:00 Temperature 98.4 F 98.7 F Pulse Rate 86 86 103 H Respiratory 18 18 20 Rate Blood Pressure 125/61 135/68 159/89 O2 Sat by Pulse 98 Oximetry (%) 07/20/17 07/20/17 07/20/17 02:00 06:00 09:07 Temperature 99.6 F 97.1 F L 98.4 F Pulse Rate 104 H 88 102 H Respiratory 20 20 20 Rate Blood Pressure 135/66 125/64 134/66 O2 Sat by Pulse 94 L 98 Oximetry (%) GENERAL: Awake, alert, and fully oriented, in no acute distress. HEAD: Normal with no signs of trauma. EYES: Pupils equal, round and reactive to light, extraocular movements intact, sclera anicteric, conjunctiva clear. No lid lag. EARS, NOSE, THROAT: Ears normal, nares patent, oropharynx clear without exudates. Moist mucous membranes. NECK: Normal range of motion, supple without lymphadenopathy, JVD, or masses. LUNGS: Breath sounds equal, clear to auscultation bilaterally. No wheezes, and no crackles. No accessory muscle use. HEART: Regular rate and rhythm, normal S1 and S2 without murmur, rub or gallop. ABDOMEN: Soft, nontender, not distended, normoactive bowel sounds, no guarding, no rebound, no masses. No hepatomegaly or splenomegaly. MUSCULOSKELETAL: Normal range of motion at all joints. No bony deformities or tenderness. No CVA tenderness. UPPER EXTREMITIES: 2+ pulses, warm, well-perfused. No cyanosis. No clubbing. No peripheral edema. LOWER EXTREMITIES: 2+ pulses, warm, well-perfused. No calf tenderness. No peripheral edema. NEUROLOGICAL: Cranial nerves II-XII intact. Normal speech. Normal gait. PSYCHIATRIC: Cooperative. Good eye contact. Appropriate mood and affect. SKIN: Warm, dry, normal turgor, no rashes or lesions noted, normal capillary refill. Laboratory Results - last 24 hr 07/19/17 07/19/17 07/19/17 17:05 18:05 21:15 WBC RBC Hgb Hct MCV MCH MCHC RDW Plt Count MPV Sodium Potassium Chloride Carbon Dioxide Anion Gap BUN Creatinine Creat Clearance w eGFR POC Glucometer [phone] Random Glucose Calcium Phosphorus Magnesium Total Bilirubin AST ALT Alkaline Phosphatase Creatine Kinase 69 Troponin I 0.07 H D Total Protein Albumin 07/20/17 07/20/17 07/20/17 01:00 06:05 06:05 WBC 7.5 RBC 4.33 Hgb 11.5 L Hct 33.8 L MCV 78.1 L MCH 26.5 MCHC 34.0 RDW 18.7 H Plt Count 165 MPV 8.3 Sodium 142 Potassium 3.9 Chloride 109 H Carbon Dioxide 21 Anion Gap 12 BUN 24 H Creatinine 1.6 H Creat Clearance w eGFR 42.35 POC Glucometer Random Glucose 123 H D Calcium 8.4 L Phosphorus 2.7 D Magnesium 2.0 Total Bilirubin 0.8 AST 14 L ALT 17 Alkaline Phosphatase 73 Creatine Kinase 67 Troponin I 0.08 H Total Protein 6.5 Albumin 3.1 L 07/20/17 07/20/17 06:09 10:58 WBC RBC Hgb Hct MCV MCH MCHC RDW Plt Count MPV Sodium Potassium Chloride Carbon Dioxide Anion Gap BUN Creatinine Creat Clearance w eGFR POC Glucometer 126 181 Random Glucose Calcium Phosphorus Magnesium Total Bilirubin AST ALT Alkaline Phosphatase Creatine Kinase Troponin I Total Protein Albumin ASSESSMENT/PLAN: Hospitalist Screening - Colonoscopy Questionnaire Colonoscopy Questionnaire: Colonoscopy Questionnaire
[2017-07-19] MEDS: HEPARIN NA (PORCINE) 5,000 UNITS/ML 1ML VIAL SQ SCH ×2 (16:57→22:22)
[2017-07-19] MEDS ORDERED: HEPARIN NA (PORCINE) 5,000 UNITS/ML 1ML VIAL ONE (17:00)
[2017-07-19] MEDS: INSULIN SLIDING SCALE (NOVOLOG) 1 VIAL SQ SCH ×2 (17:08→22:33)
[2017-07-19] MEDS ORDERED: INSULIN (NOVOLOG) ASPART 100 UNITS/ML 10ML VIAL ONE (17:10)
[2017-07-19 17:18] VITALS: BMI 24.4
[2017-07-19] MEDS ORDERED: ALBUTEROL SO4 0.083% IH SOL 2.5 MG/3 ML VIAL.NEB. NEB PRN ×2 (18:50→18:51)
--- NOTE | 2017-07-19 19:46 | EKG ---
Test Reason : Blood Pressure : / mmHG Vent. Rate : 086 BPM Atrial Rate : 086 BPM P-R Int : 228 ms QRS Dur : 130 ms QT Int : 386 ms P-R-T Axes : 070 015 116 degrees QTc Int : 461 ms SINUS RHYTHM WITH 1ST DEGREE A-V BLOCK NON-SPECIFIC INTRA-VENTRICULAR CONDUCTION BLOCK CANNOT RULE OUT ANTERIOR INFARCT (CITED ON OR BEFORE 24-JUL-2016) T WAVE ABNORMALITY, CONSIDER LATERAL ISCHEMIA ABNORMAL ECG WHEN COMPARED WITH ECG OF 11-MAY-2017 12:19, PREMATURE VENTRICULAR COMPLEXES ARE NO LONGER PRESENT T WAVE VARIATION Confirmed by RAFAEL ZABALA MD ([id number]) on 07/19/2017 7:46:24 PM Referred By: Confirmed By:RAFAEL ZABALA MD
[2017-07-19] MEDS ORDERED: ACETAMINOPHEN 325 MG TABLET (FP) PO ONE (21:45)
[2017-07-19] MEDS: ESCITALOPRAM OXALATE 20 MG TABLET (FP) PO SCH (22:20)
[2017-07-19] MEDS: ROSUVASTATIN CA 20 MG TABLET (FP) PO SCH (22:21)
[2017-07-19] MEDS: BUDESONIDE/FORMETEROL FUMARATE 160/4.5 mcg INHALER IH SCH (22:32)
[2017-07-19] MEDS: LATANOPROST 0.005% OPHTH SOLN 2.5ML BOTTLE OU SCH (22:33)
[2017-07-19] MEDS: INSULIN DETEMIR 100 UNITS/ML MDV SQ SCH (22:34)
[2017-07-20] MEDS: ZOLPIDEM TARTRATE 5 MG TABLET PO PRN ×2 (00:52→21:42)
[2017-07-20 06:36] LABS: HEMATOCRIT 33.8 % (35.4-49); HEMOGLOBIN 11.5 GM/dL (11.7-16.9); MCH 26.5 pg (25.7-33.7); MEAN CELL VOLUME 78.1 fl (80-96); MEAN PLT VOLUME 8.3 fl (7.5-11.1); PLATELET COUNT 165 K/MM3 (134-434); RBC 4.33 M/mm3 (4.00-5.60); RDW 18.7 % (11.9-15.9); WHITE BLOOD COUNT 7.5 K/mm3 (4.0-10.0)
[2017-07-20] MEDS: INSULIN SLIDING SCALE (NOVOLOG) 1 VIAL SQ SCH ×4 (06:53→21:43)
[2017-07-20] MEDS: HEPARIN NA (PORCINE) 5,000 UNITS/ML 1ML VIAL SQ SCH ×3 (06:56→21:42)
[2017-07-20 06:57] LABS: ALBUMIN 3.1 g/dl (3.4-5.0); ANION GAP 12 (8-16); BLOOD UREA NITROGEN 24 mg/dL (7-18); CALCIUM 8.4 mg/dL (8.5-10.1); CHLORIDE 109 mmol/L (98-107); CO2 21 mmol/L (21-32); CREATININE 1.6 mg/dL (0.7-1.3); GLUCOSE,RANDOM 123 mg/dL (74-106); PHOSPHOROUS 2.7 mg/dL (2.5-4.9); POTASSIUM 3.9 mmol/L (3.5-5.1); SGOT/AST 14 U/L (15-37); SGPT/ALT 17 U/L (12-78); SODIUM 142 mmol/L (136-145)
[2017-07-20 06:58] LABS: ALK PHOS 73 U/L (45-117); BILIRUBIN,TOTAL 0.8 mg/dL (0.2-1.0); TOT PROT 6.5 g/dl (6.4-8.2)
[2017-07-20] MEDS: ALBUTEROL SO4 0.083% IH SOL 2.5 MG/3 ML VIAL.NEB. NEB PRN (08:01)
[2017-07-20] MEDS: CLOPIDOGREL BISULFATE 75 MG TABLET (FP) PO SCH (09:02)
[2017-07-20] MEDS: TAMSULOSIN HCL 0.4 MG CAP.ER.24H (FP) PO SCH (09:02)
[2017-07-20] MEDS: CEFTRIAXONE 1 G/50 ML PREMIX 50 ML IVPB SCH (09:03)
[2017-07-20] MEDS: BUDESONIDE/FORMETEROL FUMARATE 160/4.5 mcg INHALER IH SCH ×2 (09:03→21:49)
[2017-07-20] MEDS ORDERED: FUROSEMIDE 40 MG TABLET (FP) PO SCH (10:00)
--- NOTE | 2017-07-20 10:34 | CON.CARD ---
Consult Consult Specialty:: Cardiology Referred by:: Hospitalist Reason for Consultation:: Cardiac evaluation - History of Present Illness Chief Complaint: Shortness of breath History of Present Illness: Patient is a 77 year old male with underlying history of hypertension, CAD s/p stent, CABG, COPD, CKD PVD post NURSERY HELPER, diabetes mellitus and history of lung CA in the past who presents with shortness of breath and cough. He denies chest pain or palpitation. He denies fever or chills. He denies paroxysmal nocturnal dyspnea or orthopnea. He hawas given Lasix but was told to reduce the dose by the gas appliance servicer helper that he saw. He is also on Digoxin. He denies headache or lightheadedness. Troponin is elevated at 0.1. Denies nausea, vomiting, diarrhea or abdominal pain. - History Source History Provided By: Patient, Medical Record Limitations to Obtaining History: No Limitations - Past Medical History Cardio/Vascular: Yes: CAD, CHF, MA, Other (s/p stent) Pulmonary: Yes: Asthma, COPD, Other (CA lung) Gastrointestinal: Yes: Constipation Renal/: Yes: Other (BPH) Musculoskeletal: Yes: Chronic low back pain, Osteoarthritis - Past Surgical History Past Surgical History: Yes: Cholecystectomy - Alcohol/Substance Use Hx Alcohol Use: No - Smoking History Smoking history: Current some day smoker Have you smoked in the past 12 months: Yes Aproximately how many cigarettes per day: 5 - Social History Usual Living Arrangement: With Spouse ADL: Independent Home Medications - Allergies Allergies/Adverse Reactions: Allergies Allergy/AdvReac Type Severity Reaction Status Date / Time pregabalin [From Lyrica] Allergy Verified 07/19/17 12:03 - Home Medications Home Medications: Ambulatory Orders Albuterol 0.083% Nebulizer Fatuma [Ventolin 0.083% Nebulizer Soln -] 1 amp NEB PRN 12/24/16 Albuterol Sulfate [Proair Respiclick] 90 mcg IH TID PRN 12/24/16 Bimatoprost [Lumigan] 1 drop OU DAILY 12/24/16 Budesonide/Formeterol Fumarate [SYMBICORT 160/4.5mcg -] 2 inh PO BID 12/24/16 Clopidogrel Bisulfate [Plavix -] 75 mg PO DAILY 12/24/16 Escitalopram Oxalate [Lexapro -] 20 mg PO HS 08/16/17 Insulin Glargine,Hum.rec.anlog [Lantus Solostar PEN -] 50 units SQ HS 12/24/16 Rosuvastatin Calcium [Crestor] 20 mg PO HS 12/24/16 Tamsulosin HCl [Flomax] 1.8 mg PO HS 12/24/16 Digoxin [Lanoxin -] 0.125 mg PO Q2D #15 tablet 05/11/17 Enalapril Maleate 2.5 mg PO Q2D 07/19/17 Furosemide [Lasix -] 20 mg PO DAILY 07/19/17 Furosemide [Lasix] 20 mg PO AM 07/19/17 Humalog 07/19/17 Insulin Lispro [Humalog] 5 units SQ PRN PRN 07/19/17 Rosuvastatin Calcium [Crestor] 20 mg PO HS 07/19/17 Venlafaxine HCl ER [Effexor Xr -] 75 mg PO BID 07/19/17 Review of Systems - Review of Systems Constitutional: denies: Chills, Fever Cardiovascular: reports: Shortness of Breath. denies: Chest Pain, Palpitations Respiratory: reports: SOB, SOB on Exertion. denies: Cough, Hemoptysis, Orthopnea, PND Gastrointestinal: denies: Abdominal Pain, Constipation, Diarrhea, Melena, Nausea , Rectal Bleeding, Vomiting Musculoskeletal: denies: Joint Pain Neurological: denies: Dizziness, Headache, Seizure, Syncope Vital Signs: Vital Signs Temperature 98.4 F 07/20/17 09:07 Pulse Rate 102 H 07/20/17 09:07 Respiratory Rate 20 07/20/17 09:07 Blood Pressure 134/66 07/20/17 09:07 O2 Sat by Pulse Oximetry (%) 98 07/20/17 09:07 Eyes: Yes: PERRL HENT: Yes: Atraumatic Neck: Yes: Supple Respiratory: Yes: CTA Bilaterally Gastrointestinal: Yes: Normal Bowel Sounds, Soft. No: Tenderness Cardiovascular: Yes: Regular Rate and Rhythm Carotid Bruit: No PMI: Non-Displaced Heart Sounds: Yes: S1, S2. No: Gallop Murmur: Yes: Systolic Murmur, Grade 1 Edema: No - Other Data Labs, Other Data: CBC, BMP 07/20/17 06:05 07/20/17 06:05 Troponin, BNP 07/19/17 07/19/17 07/20/17 11:09 18:05 01:00 Troponin I 0.10 H D 0.07 H D 0.08 H Sinus rhythm with 1st degree AV block, cannot rule out anterior infarct, lateral ischemia Echo: Pending Problem List - Problems (1) Hx of CABG Code(s): Z95.1 - PRESENCE OF AORTOCORONARY BYPASS GRAFT (2) History of percutaneous coronary intervention Code(s): Z98.890 - OTHER SPECIFIED POSTPROCEDURAL STATES (3) Dyspnea Code(s): R06.00 - DYSPNEA, UNSPECIFIED Qualifiers: Dyspnea type: unspecified Qualified Code(s): R06.00 - Dyspnea, unspecified (4) Elevated troponin Code(s): R74.8 - ABNORMAL LEVELS OF OTHER SERUM ENZYMES (5) Acute on chronic renal insufficiency Code(s): N28.9 - DISORDER OF KIDNEY AND URETER, UNSPECIFIED; N18.9 - CHRONIC KIDNEY DISEASE, UNSPECIFIED (6) Anemia Code(s): D64.9 - ANEMIA, UNSPECIFIED (7) Bilateral pleural effusion Code(s): J90 - PLEURAL EFFUSION, NOT ELSEWHERE CLASSIFIED (8) CAD (coronary artery disease) Code(s): I25.10 - ATHSCL HEART DISEASE OF [place] CORONARY ARTERY W/O ANG PCTRS Qualifiers: Coronary Disease-Associated Artery/Lesion type: [place] artery [place] vs. transplanted heart: [place] heart Associated angina: without angina Qualified Code(s): I25.10 - Atherosclerotic heart disease of [place] coronary artery without angina pectoris (9) COPD (chronic obstructive pulmonary disease) Code(s): J44.9 - CHRONIC OBSTRUCTIVE PULMONARY DISEASE, UNSPECIFIED (10) Hyperlipidemia Code(s): E78.5 - HYPERLIPIDEMIA, UNSPECIFIED (11) Hypertension Code(s): I10 - ESSENTIAL (PRIMARY) HYPERTENSION (12) PVD (peripheral vascular disease) Code(s): I73.9 - PERIPHERAL VASCULAR DISEASE, UNSPECIFIED (13) Type 2 diabetes mellitus Code(s): E11.9 - TYPE 2 DIABETES MELLITUS WITHOUT COMPLICATIONS Qualifiers: Diabetes mellitus emt intermediate insulin use: with emt intermediate use Diabetes mellitus complication status: with neurologic complications Diabetes mellitus complication detail: with other neurological complication Qualified Code(s): E11.49 - Type 2 diabetes mellitus with other diabetic neurological complication Assessment/Plan 1. Clinical presentation compatible with acute on chronic LV systolic failure - class 3-4 NYHA LV failure with underlying severe LV systolic dysfunction 2. CAD post PCI/stent, history of CABG 3. Hypertension 4. Hypercholesterolemia 5. Diabetes mellitus 6. PAD post NURSERY HELPER 7. COPD 8. CKD PLAN: 1. Transthoracic echocardiography to assess LV/RV and valvular function - assess LVEF 2. Add beta pravin (Carvedilol) and Valsartan - uptitrate 3. Continue ASA +/- Plavix 4. Continue statin 5. Monitor renal function and electrolytes 6. IV Lasix Further plans are to follow Jayy Morales MD
[2017-07-20] MEDS ORDERED: INSULIN (NOVOLOG) ASPART 100 UNITS/ML 10ML VIAL ONE ×2 (11:02→17:32)
[2017-07-20] MEDS ORDERED: CEFTRIAXONE 1 GM in DEXTROSE 5%-WATER - 50 ML IVPB SCH (14:00)
--- NOTE | 2017-07-20 14:28 | PN ---
Physical Exam: SUBJECTIVE: Patient seen and examined he vomited earlier, stating its his esophageal dismotility issue. He now has a SAWYER OBJECTIVE: Vital Signs Period Temp Pulse Resp BP Sys/Garcia Pulse Ox Last 24 Hr 97.1 F-99.6 F 86-104 18-20 125-159/61-89 94-98 PE Neuro: alert, awake, cn 2-12intact Pulm: basilar crackles, +NC CV: s1 s2 tachycardia Abd: s nt nd +bs Ext: warm, no le edema Laboratory Results - last 24 hr 07/19/17 07/19/17 07/19/17 11:09 17:05 18:05 WBC RBC Hgb Hct MCV MCH MCHC RDW Plt Count MPV Sodium 139 Potassium 4.1 Chloride 105 Carbon Dioxide 21 Anion Gap 13 BUN 24 H D Creatinine 1.6 H Creat Clearance w eGFR 42.35 POC Glucometer [phone] Random Glucose 250 H D Calcium 8.5 Phosphorus Magnesium Total Bilirubin 0.8 AST 14 L ALT 19 Alkaline Phosphatase 77 Creatine Kinase 57 69 Troponin I 0.10 H D 0.07 H D Total Protein 6.5 Albumin 3.1 L 07/19/17 07/20/17 07/20/17 21:15 01:00 06:05 WBC 7.5 RBC 4.33 Hgb 11.5 L Hct 33.8 L MCV 78.1 L MCH 26.5 MCHC 34.0 RDW 18.7 H Plt Count 165 MPV 8.3 Sodium Potassium Chloride Carbon Dioxide Anion Gap BUN Creatinine Creat Clearance w eGFR POC Glucometer 202 Random Glucose Calcium Phosphorus Magnesium Total Bilirubin AST ALT Alkaline Phosphatase Creatine Kinase 67 Troponin I 0.08 H Total Protein Albumin 07/20/17 07/20/17 07/20/17 06:05 06:09 10:58 WBC RBC Hgb Hct MCV MCH MCHC RDW Plt Count MPV Sodium 142 Potassium 3.9 Chloride 109 H Carbon Dioxide 21 Anion Gap 12 BUN 24 H Creatinine 1.6 H Creat Clearance w eGFR 42.35 POC Glucometer 126 181 Random Glucose 123 H D Calcium 8.4 L Phosphorus 2.7 D Magnesium 2.0 Total Bilirubin 0.8 AST 14 L ALT 17 Alkaline Phosphatase 73 Creatine Kinase Troponin I Total Protein 6.5 Albumin 3.1 L Active Medications Generic Name Dose Route Start Last Admin Trade Name Freq PRN Reason Stop Dose Admin Acetaminophen 650 mg 07/20/17 13:51 Tylenol - PO Q4H PRN PAIN LEVEL 4 - 6 Albuterol Sulfate 1 amp 07/19/17 22:53 07/20/17 08:01 Ventolin 0.083% Nebulizer Soln - NEB 1 amp Q6H PRN Administration WHEEZING Budesonide/Formoterol Fumarate 2 puff 07/19/17 22:00 07/20/17 09:03 Symbicort 160/4.5mcg - IH 2 puff BID KADEEM Administration Clopidogrel Bisulfate 75 mg 07/20/17 10:00 07/20/17 09:02 Plavix - PO 75 mg DAILY KADEEM Administration Digoxin 0.125 mg 07/21/17 10:00 Lanoxin - PO Q2D KADEEM Escitalopram Oxalate 20 mg 07/19/17 22:00 07/19/17 22:20 Lexapro - PO 20 mg HS KADEEM Administration Furosemide 20 mg 07/20/17 10:00 07/20/17 09:02 Lasix - PO 20 mg DAILY KADEEM Administration Heparin Sodium (Porcine) 5,000 unit 07/19/17 16:00 07/20/17 06:56 Heparin - SQ 5,000 unit TID KADEEM Administration CEFTRIAXONE 1 G/50 ML PREMIX 50 mls @ 100 mls/hr 07/20/17 10:00 07/20/17 09: 03 Ceftriaxone 1 Gm-D5w Bag IVPB 100 mls/hr DAILY KADEEM Administration Ceftriaxone Sodium 1 gm/ 50 mls @ 100 mls/hr 07/20/17 14:00 Dextrose IVPB DAILY KADEEM Insulin Aspart 1 vial 07/19/17 16:30 07/20/17 10:59 Novolog Vial Sliding Scale - SQ 2 units ACHS KADEEM Administration Protocol Insulin Detemir 50 units 07/19/17 22:00 07/19/17 22:34 Levemir Vial SQ 50 units HS KADEEM Administration Latanoprost 1 drop 07/19/17 22:00 07/19/17 22:33 Xalatan 0.005% Eye Drops - OU 1 drop HS KADEEM Administration Rosuvastatin Calcium 20 mg 07/19/17 22:00 07/19/17 22:21 Crestor - PO 20 mg HS KADEEM Administration Tamsulosin HCl 0.4 mg 07/20/17 08:30 07/20/17 09:02 Flomax - PO 0.4 mg 0830 KADEEM Administration Zolpidem Tartrate 5 mg 07/19/17 22:00 07/20/17 00:52 Ambien - PO 5 mg HS PRN Administration INSOMNIA Assessment: 77 year old male with PMHx of severe systolic CHF, HTN, CAD s/p stenting (triple bypass about 10 years ago), COPD, CKD, active smoker, PVD s/p angioplasty, IDDM, admitted with 2 weeks of shortness of breath and cough with whitish sputum. Plan: 1. Acute on chronic systolic HF - Start lasix 40mg IV daily first dose now - Start coreg 3.125mg BID - Start valsartan 40mg daily - Stop dig - Stop po lasix - ECHO shows severe dilated LV dysfunction - BNP ordered 2. Elevated troponin - Less likely ACS, more demand - Obtain CE now, trops downtrending - Patient reports GI bleeding with ASA, will hold off on giving at this time - Cardiology seeing 3. Shortness of breath, cough with whitish sputum - Likely CHF exacerbation d/t UTI? vs viral syndrome - Sputum culture ordered 4. UTI - Urine cx negative - Continue Ceftriaxone (day 2) 5. COPD - Albuterol nebs prn - Continue Symbicort 6. PVD s/p angioplasty - Continue Plavix - Continue Crestor 7. CAD s/p stenting, CABG - Continue Plavix - Not on ASA 2/2 GI bleeding 8. DM II - Levemir 50units HS - ISS, BGM ACHS 9. Prophylaxis - Heparin 5,000u sq tid Visit type - Emergency Visit Emergency Visit: Yes ED Registration Date: 07/19/17 Care time: The patient presented to the Emergency Department on the above date and was hospitalized for further evaluation of their emergent condition. - New Patient This patient is new to me today: Yes Date on this admission: 07/20/17 - Critical Care Critical Care patient: No
[2017-07-20] MEDS: ACETAMINOPHEN 325 MG TABLET (FP) PO PRN (14:33)
[2017-07-20] MEDS: CARVEDILOL 3.125 MG TABLET (FP) PO SCH ×2 (15:09→21:49)
[2017-07-20] MEDS: VALSARTAN 40 MG TABLET (FP) PO SCH (15:09)
[2017-07-20] MEDS: FUROSEMIDE 40 MG/4 ML INJECTABLE VIAL IVPUSH SCH (15:44)
[2017-07-20] MEDS: ESCITALOPRAM OXALATE 20 MG TABLET (FP) PO SCH (21:42)
[2017-07-20] MEDS: ROSUVASTATIN CA 20 MG TABLET (FP) PO SCH (21:42)
[2017-07-20] MEDS: INSULIN DETEMIR 100 UNITS/ML MDV SQ SCH (21:42)
[2017-07-20] MEDS ORDERED: PT OWN MED DRAWER 7, Y5N ONE ×2 (21:45→21:51)
[2017-07-20] MEDS: LATANOPROST 0.005% OPHTH SOLN 2.5ML BOTTLE OU SCH (21:49)
[2017-07-21] MEDS: ALBUTEROL SO4 0.083% IH SOL 2.5 MG/3 ML VIAL.NEB. NEB PRN (06:23)
[2017-07-21] MEDS: INSULIN SLIDING SCALE (NOVOLOG) 1 VIAL SQ SCH ×4 (06:49→22:15)
[2017-07-21] MEDS: HEPARIN NA (PORCINE) 5,000 UNITS/ML 1ML VIAL SQ SCH ×3 (06:49→22:04)
[2017-07-21 07:19] LABS: MCH 26.2 pg (25.7-33.7); MCHC 33.2 g/dl (32.0-35.9); MEAN CELL VOLUME 78.8 fl (80-96); MEAN PLT VOLUME 8.4 fl (7.5-11.1); PLATELET COUNT 163 K/MM3 (134-434); RBC 4.19 M/mm3 (4.00-5.60); RDW 18.5 % (11.9-15.9); WHITE BLOOD COUNT 7.1 K/mm3 (4.0-10.0)
[2017-07-21 08:11] LABS: CHLORIDE 105 mmol/L (98-107); CHOLESTEROL 103 mg/dL (50-200); POTASSIUM 3.8 mmol/L (3.5-5.1); SODIUM 139 mmol/L (136-145)
[2017-07-21 08:14] LABS: ANION GAP 12 (8-16); BLOOD UREA NITROGEN 32 mg/dL (7-18); CALCIUM 7.9 mg/dL (8.5-10.1); CO2 22 mmol/L (21-32); CREATININE 1.6 mg/dL (0.7-1.3); GLUCOSE,RANDOM 121 mg/dL (74-106); HDL CHOLESTEROL 35 mg/dL (40-60); LDL CHOLESTEROL (ONLY SJRH) 44 mg/dL (5-100); TRIGLYCERIDES 249 mg/dL (35-160)
[2017-07-21] MEDS: TAMSULOSIN HCL 0.4 MG CAP.ER.24H (FP) PO SCH (08:31)
--- NOTE | 2017-07-21 09:21 | CON.GI ---
Consult Consult Specialty:: GI Reason for Consultation:: History of achalasia, one episode of vomiting on this admission - History of Present Illness History of Present Illness: Chart reviewed. Events noted. As per initial encounter: This is a 77 year old male with PMHx of severe systolic CHF, HTN, CAD s/p stenting (triple bypass about 10 years ago), COPD, CKD, active smoker, PVD s/p angioplasty, IDDM, who presented to the ED with 2 weeks of shortness of breath and cough with whitish sputum. The patient reports that about 2 weeks ago he was seen by his licensing coordinator and instructed to decrease his dose of Lasix from 40mg po daily to 20mg po daily due to concerns of dehydration. The patient admits to not drinking water throughout the day. The patient reports thick, white sputum production. He states his shortness of breath is worse on exertion. He denies any fever, chills, chest pain, diarrhea, nausea, vomiting, headache, dizziness. He states that he is experiencing some urinary urgency, but denies dysuria, frequency. GI was called for vomiting in settings of possible achalasia by history. At the time of this encounter, the patient appears comfortable, eating breakfast (hard-boiled egg, omelette, toast). Reports no dysphagia, odynophagia , acid reflux, nausea, vomiting, diarrhea, changes in bowel habits. Denies melena, hematochezia, hematemesis. Denies low-grade fever, jaundice, weight loss. The patient had EGD in 2016. It revealed Billroth II, 2 cm hiatal hernia. Patient also had colonoscopy around that time. A tubular adenoma was found and removed. On further questioning, patient reports no overt dysphagia , odynophagia, regurgitating undigested food, halitosis. - History Source History Provided By: Patient, Medical Record - Past Medical History Cardio/Vascular: Yes: CAD, CHF, UT, Other (s/p stent) Pulmonary: Yes: Asthma, COPD, Other (CA lung) Gastrointestinal: Yes: Constipation Renal/: Yes: Other (BPH) Musculoskeletal: Yes: Chronic low back pain, Osteoarthritis - Past Surgical History Past Surgical History: Yes: Cholecystectomy - Alcohol/Substance Use Hx Alcohol Use: No - Smoking History Smoking history: Never smoked Have you smoked in the past 12 months: No Aproximately how many cigarettes per day: 20 - Social History Usual Living Arrangement: With Spouse ADL: Independent Home Medications - Allergies Allergies/Adverse Reactions: Allergies Allergy/AdvReac Type Severity Reaction Status Date / Time pregabalin [From Lyrica] Allergy Verified 07/19/17 12:03 - Home Medications Home Medications: Ambulatory Orders Albuterol 0.083% Nebulizer Fatuma [Ventolin 0.083% Nebulizer Soln -] 1 amp NEB PRN 12/24/16 Albuterol Sulfate [Proair Respiclick] 90 mcg IH TID PRN 12/24/16 Bimatoprost [Lumigan] 1 drop OU DAILY 12/24/16 Budesonide/Formeterol Fumarate [SYMBICORT 160/4.5mcg -] 2 inh PO BID 12/24/16 Clopidogrel Bisulfate [Plavix -] 75 mg PO DAILY 12/24/16 Escitalopram Oxalate [Lexapro -] 20 mg PO HS 12/24/16 Insulin Glargine,Hum.rec.anlog [Lantus Solostar PEN -] 50 units SQ HS 12/24/16 Rosuvastatin Calcium [Crestor] 20 mg PO HS 12/24/16 Tamsulosin HCl [Flomax] 1.8 mg PO HS 12/24/16 Digoxin [Lanoxin -] 0.125 mg PO Q2D #15 tablet 05/11/17 Enalapril Maleate 2.5 mg PO Q2D 07/19/17 Furosemide [Lasix -] 20 mg PO DAILY 07/19/17 Furosemide [Lasix] 20 mg PO AM 07/19/17 Humalog 07/19/17 Insulin Lispro [Humalog] 5 units SQ PRN PRN 07/19/17 Rosuvastatin Calcium [Crestor] 20 mg PO HS 07/19/17 Venlafaxine HCl ER [Effexor Xr -] 75 mg PO BID 07/19/17 Family Disease History - Family Disease History Family History: Unremarkable Review of Systems Findings/Remarks: Please refer to HPI and H&P Physical Exam-GI Vital Signs: Vital Signs Temperature 98.2 F 07/21/17 09:00 Pulse Rate 86 07/21/17 09:00 Respiratory Rate 20 07/21/17 09:00 Blood Pressure 147/54 07/21/17 09:00 O2 Sat by Pulse Oximetry (%) 92 L 07/21/17 02:00 Constitutional: Yes: Well Nourished, No Distress, Calm Eyes: Yes: Conjunctiva Clear HENT: Yes: Atraumatic Neck: Yes: Supple Cardiovascular: No: Bradycardia, Tachycardia Respiratory: Yes: Regular Neurological: Yes: Alert, Oriented Labs: CBC, BMP 07/21/17 06:27 03 06:27 CBCD WBC 7.1 K/mm3 (4.0-10.0) 07/21/17 06:27 RBC 4.19 M/mm3 (4.00-5.60) 07/21/17 06:27 Hgb 11.0 GM/dL (11.7-16.9) L 07/21/17 06:27 Hct 33.0 % (35.4-49) L 07/21/17 06:27 MCV 78.8 fl (80-96) L 07/21/17 06:27 MCHC 33.2 g/dl (32.0-35.9) 07/21/17 06:27 RDW 18.5 % (11.9-15.9) H 07/21/17 06:27 Plt Count 163 K/MM3 (134-434) 07/21/17 06:27 MPV 8.4 fl (7.5-11.1) 07/21/17 06:27 CMP Sodium 139 mmol/L (136-145) 07/21/17 06:27 Potassium 3.8 mmol/L (3.5-5.1) 07/21/17 06:27 Chloride 105 mmol/L (98-107) 07/21/17 06:27 Carbon Dioxide 22 mmol/L (21-32) 07/21/17 06:27 Anion Gap 12 (8-16) 07/21/17 06:27 BUN 32 mg/dL (7-18) H D 07/21/17 06:27 Creatinine 1.6 mg/dL (0.7-1.3) H 07/21/17 06:27 Creat Clearance w eGFR 42.35 (>60) 07/20/17 06:05 Calcium 7.9 mg/dL (8.5-10.1) L 07/21/17 06:27 Total Bilirubin 0.8 mg/dL (0.2-1.0) 07/20/17 06:05 AST 14 U/L (15-37) L 07/20/17 06:05 ALT 17 U/L (12-78) 07/20/17 06:05 Alkaline Phosphatase 73 U/L (45-117) 07/20/17 06:05 Total Protein 6.5 g/dl (6.4-8.2) 07/20/17 06:05 Albumin 3.1 g/dl (3.4-5.0) L 07/20/17 06:05 Imaging - Results X-ray: Report Reviewed ( chest x-ray on this admission and small bowel series in 2016) Cat Scan: Report Reviewed ( 2016 chest abdomen and pelvis) Problem List - Problems (1) Dyspnea Code(s): R06.00 - DYSPNEA, UNSPECIFIED Qualifiers: Dyspnea type: unspecified Qualified Code(s): R06.00 - Dyspnea, unspecified (2) Elevated troponin Code(s): R74.8 - ABNORMAL LEVELS OF OTHER SERUM ENZYMES (3) Acute on chronic renal insufficiency Code(s): N28.9 - DISORDER OF KIDNEY AND URETER, UNSPECIFIED; N18.9 - CHRONIC KIDNEY DISEASE, UNSPECIFIED (4) Anemia Code(s): D64.9 - ANEMIA, UNSPECIFIED Assessment/Plan a 77-year-old male admitted for decompensated CHF. At this time he reports no gastrointestinal issues. He is tolerating his current diet. He reports no difficulties with swallowing currently, or prior to the hospitalization. Recent chest x-ray, small bowel follow-through and CT chest abdomen and pelvis from 2016, as well as an EGD from 2016 revealed no esophageal abnormalities, other than hiatal hernia. At this point I would recommend observation, GERD lifestyle and diet. Please reconsult as needed.
[2017-07-21] MEDS: FUROSEMIDE 40 MG/4 ML INJECTABLE VIAL IVPUSH SCH (09:36)
[2017-07-21] MEDS ORDERED: DIGOXIN 0.125 MG TABLET (FP) PO SCH (10:00)
[2017-07-21] MEDS ORDERED: PT OWN MED DRAWER 7, Y5N ONE (11:09)
[2017-07-21] MEDS: BUDESONIDE/FORMETEROL FUMARATE 160/4.5 mcg INHALER IH SCH ×2 (11:13→22:06)
[2017-07-21] MEDS: CEFTRIAXONE 1 G/50 ML PREMIX 50 ML IVPB SCH (11:13)
[2017-07-21] MEDS: CLOPIDOGREL BISULFATE 75 MG TABLET (FP) PO SCH (11:13)
[2017-07-21] MEDS: VALSARTAN 40 MG TABLET (FP) PO SCH (11:13)
[2017-07-21] MEDS: CARVEDILOL 3.125 MG TABLET (FP) PO SCH (11:13)
--- NOTE | 2017-07-21 11:36 | PN ---
Progress Note, Physician Chief Complaint: Feels better with less shortness of breath Denies chest pain or palpitations History of Present Illness: Patient was seen and examined. Awake and alert. Chart was reviewed Echocardiography revealed severe LV systolic dysfunction LVEF 25-30%, moderate TR, mild to moderate MR, pulmonary artery systolic pressure 46 mmHg, mildly dilated aortic root - Current Medication List Current Medications: Active Medications Acetaminophen (Tylenol -) 650 mg PO Q4H PRN PRN Reason: PAIN LEVEL 4 - 6 Last Admin: 07/20/17 14:33 Dose: 650 mg Albuterol Sulfate (Ventolin 0.083% Nebulizer Soln -) 1 amp NEB Q6H PRN PRN Reason: WHEEZING Last Admin: 07/21/17 06:23 Dose: 1 amp Budesonide/Formoterol Fumarate (Symbicort 160/4.5mcg -) 2 puff IH BID [facility] Last Admin: 07/21/17 11:13 Dose: 2 puff Carvedilol (Coreg -) 3.125 mg PO BID [facility] Last Admin: 07/21/17 11:13 Dose: 3.125 mg Clopidogrel Bisulfate (Plavix -) 75 mg PO DAILY [facility] Last Admin: 07/21/17 11:13 Dose: 75 mg Escitalopram Oxalate (Lexapro -) 20 mg PO HS [facility] Last Admin: 07/20/17 21:42 Dose: 20 mg Furosemide (Lasix Injection -) 40 mg IVPUSH DAILY [facility] Last Admin: 07/21/17 09:36 Dose: 40 mg Heparin Sodium (Porcine) (Heparin -) 5,000 unit SQ TID [facility] Last Admin: 07/21/17 06:49 Dose: 5,000 unit CEFTRIAXONE 1 G/50 ML PREMIX (Ceftriaxone 1 Gm-D5w Bag) 50 mls @ 100 mls/hr IVPB DAILY [facility] Last Admin: 07/21/17 11:13 Dose: 100 mls/hr Insulin Aspart (Novolog Vial Sliding Scale -) 1 vial SQ ACHS [facility] PRN Reason: Protocol Last Admin: 07/21/17 06:49 Dose: 2 units Insulin Detemir (Levemir Vial) 50 units SQ HS [facility] Last Admin: 07/20/17 21:42 Dose: 50 units Latanoprost (Xalatan 0.005% Eye Drops -) 1 drop OU HS [facility] Last Admin: 07/20/17 21:49 Dose: 1 drop Rosuvastatin Calcium (Crestor -) 20 mg PO HS [facility] Last Admin: 07/20/17 21:42 Dose: 20 mg Tamsulosin HCl (Flomax -) 0.4 mg PO 0830 [facility] Last Admin: 07/21/17 08:31 Dose: 0.4 mg Valsartan (Diovan -) 40 mg PO DAILY [facility] Last Admin: 07/21/17 11:13 Dose: 40 mg Zolpidem Tartrate (Ambien -) 5 mg PO HS PRN PRN Reason: INSOMNIA Last Admin: 07/20/17 21:42 Dose: 5 mg - Objective Vital Signs: Vital Signs Temperature 98.2 F 07/21/17 09:00 Pulse Rate 86 07/21/17 09:00 Respiratory Rate 20 07/21/17 10:00 Blood Pressure 147/54 07/21/17 09:00 O2 Sat by Pulse Oximetry (%) 92 L 07/21/17 10:00 Eyes: Yes: PERRL HENT: Yes: Atraumatic Neck: Yes: Supple Cardiovascular: Yes: Regular Rate and Rhythm, S1, S2 Respiratory: Yes: Diminished Gastrointestinal: Yes: Normal Bowel Sounds, Soft. No: Tenderness Edema: No Additional Findings/Remarks: - Review of Systems Constitutional: denies: Chills, Fever Cardiovascular: reports: Shortness of Breath. denies: Chest Pain, Palpitations Respiratory: reports: SOB, SOB on Exertion. denies: Cough, Hemoptysis, Orthopnea, PND Gastrointestinal: denies: Abdominal Pain, Constipation, Diarrhea, Melena, Nausea , Rectal Bleeding, Vomiting Musculoskeletal: denies: Joint Pain Neurological: denies: Dizziness, Headache, Seizure, Syncope Labs: CBC, BMP 07/21/17 06:27 07/21/17 06:27 Problem List - Problems (1) Hx of CABG Code(s): Z95.1 - PRESENCE OF AORTOCORONARY BYPASS GRAFT (2) History of percutaneous coronary intervention Code(s): Z98.890 - OTHER SPECIFIED POSTPROCEDURAL STATES (3) Dyspnea Code(s): R06.00 - DYSPNEA, UNSPECIFIED Qualifiers: Dyspnea type: unspecified Qualified Code(s): R06.00 - Dyspnea, unspecified (4) Elevated troponin Code(s): R74.8 - ABNORMAL LEVELS OF OTHER SERUM ENZYMES (5) Acute on chronic renal insufficiency Code(s): N28.9 - DISORDER OF KIDNEY AND URETER, UNSPECIFIED; N18.9 - CHRONIC KIDNEY DISEASE, UNSPECIFIED (6) Anemia Code(s): D64.9 - ANEMIA, UNSPECIFIED (7) Bilateral pleural effusion Code(s): J90 - PLEURAL EFFUSION, NOT ELSEWHERE CLASSIFIED (8) CAD (coronary artery disease) Code(s): I25.10 - ATHSCL HEART DISEASE OF [place] CORONARY ARTERY W/O ANG PCTRS Qualifiers: Coronary Disease-Associated Artery/Lesion type: [place] artery [place] vs. transplanted heart: [place] heart Associated angina: without angina Qualified Code(s): I25.10 - Atherosclerotic heart disease of [place] coronary artery without angina pectoris (9) COPD (chronic obstructive pulmonary disease) Code(s): J44.9 - CHRONIC OBSTRUCTIVE PULMONARY DISEASE, UNSPECIFIED (10) Hyperlipidemia Code(s): E78.5 - HYPERLIPIDEMIA, UNSPECIFIED (11) Hypertension Code(s): I10 - ESSENTIAL (PRIMARY) HYPERTENSION (12) PVD (peripheral vascular disease) Code(s): I73.9 - PERIPHERAL VASCULAR DISEASE, UNSPECIFIED (13) Type 2 diabetes mellitus Code(s): E11.9 - TYPE 2 DIABETES MELLITUS WITHOUT COMPLICATIONS Qualifiers: Diabetes mellitus rat exterminator insulin use: with usp use Diabetes mellitus complication status: with neurologic complications Diabetes mellitus complication detail: with other neurological complication Qualified Code(s): E11.49 - Type 2 diabetes mellitus with other diabetic neurological complication Assessment/Plan 1. Clinical presentation compatible with acute on chronic LV systolic failure - class 3-4 NYHA LV failure with underlying severe LV systolic dysfunction 2. CAD post PCI/stent, history of CABG 3. Hypertension 4. Hypercholesterolemia 5. Diabetes mellitus 6. PAD post ADDICTIONS THERAPIST 7. COPD 8. CKD PLAN: 1. Transthoracic echocardiography reviewed LVEF low at 25-30%. 2. Uptitrate Carvedilol (increase to 6.25 mg BID) and Valsartan (up to 80 mg once a day as tolerated) 3. Continue Plavix 4. Continue Rosuvastatin. 5. Monitor renal function and electrolytes 6. IV Lasix and monitor I/O and daily weight 7. Consider Spironolactone 8. Further cardiac work up may include nuclear myocardial perfusion imaging and assess indication for ICD Further plans are to follow Jayy Morales MD
--- NOTE | 2017-07-21 12:19 | PN ---
Physical Exam: SUBJECTIVE: Patient seen and examined. He states his breathing is improved, able to lay flat w/o oxygen. He is feeling tired. OBJECTIVE: Vital Signs Period Temp Pulse Resp BP Sys/Garcia Pulse Ox Last 24 Hr 97.6 F-98.2 F 84-102 19-20 102-147/48-76 92-98 PE Neuro: alert, awake, cn 2-12intact Pulm: diminished, basilar crackles CV: s1 s2 rrr Abd: s nt nd +bs Ext: warm, no le edema Laboratory Results - last 24 hr 07/20/17 07/21/17 07/21/17 21:40 05:48 06:27 WBC 7.1 RBC 4.19 Hgb 11.0 L Hct 33.0 L MCV 78.8 L MCH 26.2 MCHC 33.2 RDW 18.5 H Plt Count 163 MPV 8.4 Sodium Potassium Chloride Carbon Dioxide Anion Gap BUN Creatinine POC Glucometer 179 169 Random Glucose Calcium Creatine Kinase Troponin I B-Natriuretic Peptide Triglycerides Cholesterol Total LDL Cholesterol HDL Cholesterol 07/21/17 07/21/17 06:27 11:31 WBC RBC Hgb Hct MCV MCH MCHC RDW Plt Count MPV Sodium 139 Potassium 3.8 Chloride 105 Carbon Dioxide 22 Anion Gap 12 BUN 32 H D Creatinine 1.6 H POC Glucometer 159 Random Glucose 121 H Calcium 7.9 L Creatine Kinase Troponin I B-Natriuretic Peptide Triglycerides 249 H D Cholesterol 103 D Total LDL Cholesterol 44 D HDL Cholesterol 35 L Active Medications Generic Name Dose Route Start Last Admin Trade Name Freq PRN Reason Stop Dose Admin Acetaminophen 650 mg 07/20/17 13:51 07/20/17 14:33 Tylenol - PO 650 mg Q4H PRN Administration PAIN LEVEL 4 - 6 Albuterol Sulfate 1 amp 07/19/17 22:53 07/21/17 06:23 Ventolin 0.083% Nebulizer Soln - NEB 1 amp Q6H PRN Administration WHEEZING Budesonide/Formoterol Fumarate 2 puff 07/19/17 22:00 07/21/17 11:13 Symbicort 160/4.5mcg - IH 2 puff BID KADEEM Administration Carvedilol 6.25 mg 07/21/17 11:42 Coreg - PO BID KADEEM Clopidogrel Bisulfate 75 mg 07/20/17 10:00 07/21/17 11:13 Plavix - PO 75 mg DAILY KADEEM Administration Escitalopram Oxalate 20 mg 07/19/17 22:00 07/20/17 21:42 Lexapro - PO 20 mg HS KADEEM Administration Furosemide 40 mg 07/20/17 14:45 07/21/17 09:36 Lasix Injection - IVPUSH 40 mg DAILY KADEEM Administration Heparin Sodium (Porcine) 5,000 unit 07/19/17 16:00 07/21/17 06:49 Heparin - SQ 5,000 unit TID KADEEM Administration CEFTRIAXONE 1 G/50 ML PREMIX 50 mls @ 100 mls/hr 07/20/17 10:00 07/21/17 11: 13 Ceftriaxone 1 Gm-D5w Bag IVPB 100 mls/hr DAILY KADEEM Administration Insulin Aspart 1 vial 07/19/17 16:30 07/21/17 11:43 Novolog Vial Sliding Scale - SQ Not Given ACHS [facility] Protocol Insulin Detemir 50 units 07/19/17 22:00 07/20/17 21:42 Levemir Vial SQ 50 units HS KADEEM Administration Latanoprost 1 drop 07/19/17 22:00 07/20/17 21:49 Xalatan 0.005% Eye Drops - OU 1 drop HS KADEEM Administration Rosuvastatin Calcium 20 mg 07/19/17 22:00 07/20/17 21:42 Crestor - PO 20 mg HS KADEEM Administration Tamsulosin HCl 0.4 mg 07/20/17 08:30 07/21/17 08:31 Flomax - PO 0.4 mg 0830 KADEEM Administration Valsartan 80 mg 07/21/17 11:42 Diovan - PO DAILY KADEEM Zolpidem Tartrate 5 mg 07/19/17 22:00 07/20/17 21:42 Ambien - PO 5 mg HS PRN Administration INSOMNIA Imaging: ECHO 07/20: Severe LV systolic dysfunction LVEF 25-30%, moderate TR, mild to moderate MR, pulmonary artery systolic pressure 46 mmHg, mildly dilated aortic root Assessment: 77 year old male with PMHx of severe systolic CHF, HTN, CAD s/p stenting (triple bypass about 10 years ago), COPD, CKD, active smoker, PVD s/p angioplasty, IDDM, admitted with 2 weeks of shortness of breath and cough with whitish sputum. Plan: 1. Acute on chronic systolic HF, severe LV systolic dysfunction - Continue lasix 40mg IV daily - Increase coreg 6.25mg BID - Increase valsartan 80mg daily - May need ICD and stress in future - Cards seeing 2. Elevated troponin - Less likely ACS, more demand - Trend CE - Patient reports GI bleeding with ASA, will hold off on giving at this time 3. Shortness of breath, cough with whitish sputum - Likely CHF exacerbation d/t UTI? vs viral syndrome 4. UTI - Urine cx negative - Continue Ceftriaxone (day 3) 5. COPD - Albuterol nebs prn - Continue Symbicort 6. PVD s/p angioplasty - Continue Plavix - Continue Crestor 7. CAD s/p stenting, CABG - Continue Plavix - Not on ASA 2/2 GI bleeding 8. DM II - Levemir 50units HS - ISS, BGM ACHS 9. Prophylaxis - Heparin 5,000u sq tid 10. CKD - Cr stable - Trend Visit type - Emergency Visit Emergency Visit: Yes ED Registration Date: 07/21/17 Care time: The patient presented to the Emergency Department on the above date and was hospitalized for further evaluation of their emergent condition. - New Patient This patient is new to me today: No - Critical Care Critical Care patient: No
[2017-07-21] MEDS ORDERED: MELATONIN 1 MG TABLET PO SCH (22:00)
[2017-07-21] MEDS: CARVEDILOL 6.25 MG TABLET (FP) PO SCH (22:01)
[2017-07-21] MEDS: ROSUVASTATIN CA 20 MG TABLET (FP) PO SCH (22:02)
[2017-07-21] MEDS: ESCITALOPRAM OXALATE 20 MG TABLET (FP) PO SCH (22:04)
[2017-07-21] MEDS: LATANOPROST 0.005% OPHTH SOLN 2.5ML BOTTLE OU SCH (22:06)
[2017-07-21] MEDS: INSULIN DETEMIR 100 UNITS/ML MDV SQ SCH (22:09)
[2017-07-22 06:27] LABS: BASO % 0.5 % (0-2.0); EOS % 0.8 % (0-4.5); HEMATOCRIT 31.6 % (35.4-49); HEMOGLOBIN 10.5 GM/dL (11.7-16.9); LYMPH % 12.8 % (8-40); MCH 26.2 pg (25.7-33.7); MCHC 33.2 g/dl (32.0-35.9); MEAN PLT VOLUME 8.6 fl (7.5-11.1); MONO % 9.4 % (3.8-10.2); NEUT % 76.5 % (42.8-82.8); PLATELET COUNT 166 K/MM3 (134-434); WHITE BLOOD COUNT 6.7 K/mm3 (4.0-10.0)
[2017-07-22] MEDS: INSULIN SLIDING SCALE (NOVOLOG) 1 VIAL SQ SCH ×4 (06:50→22:08)
[2017-07-22] MEDS: HEPARIN NA (PORCINE) 5,000 UNITS/ML 1ML VIAL SQ SCH ×3 (06:50→22:00)
[2017-07-22 07:08] LABS: ALBUMIN 2.8 g/dl (3.4-5.0); ALK PHOS 64 U/L (45-117); ANION GAP 12 (8-16); BILIRUBIN,TOTAL 0.6 mg/dL (0.2-1.0); BLOOD UREA NITROGEN 44 mg/dL (7-18); CALCIUM 7.7 mg/dL (8.5-10.1); CHLORIDE 106 mmol/L (98-107); CO2 21 mmol/L (21-32); CREATININE 1.8 mg/dL (0.7-1.3); GLUCOSE,RANDOM 77 mg/dL (74-106); POTASSIUM 3.9 mmol/L (3.5-5.1); SGOT/AST 15 U/L (15-37); SGPT/ALT 20 U/L (12-78); SODIUM 139 mmol/L (136-145); TOT PROT 5.9 g/dl (6.4-8.2)
[2017-07-22] MEDS ORDERED: SODIUM CHLORIDE 250 ML IV STA (08:51)
[2017-07-22] MEDS ORDERED: VALSARTAN 80 MG TABLET (UD) PO SCH (10:00)
--- NOTE | 2017-07-22 10:06 | PN ---
Progress Note, Physician History of Present Illness: Chart reviewed. No events. Tolerating his current diet - Current Medication List Current Medications: Active Medications Acetaminophen (Tylenol -) 650 mg PO Q4H PRN PRN Reason: PAIN LEVEL 4 - 6 Last Admin: 07/20/17 14:33 Dose: 650 mg Albuterol Sulfate (Ventolin 0.083% Nebulizer Soln -) 1 amp NEB Q6H PRN PRN Reason: WHEEZING Last Admin: 07/21/17 06:23 Dose: 1 amp Budesonide/Formoterol Fumarate (Symbicort 160/4.5mcg -) 2 puff IH BID [facility] Last Admin: 07/21/17 22:06 Dose: 2 puff Carvedilol (Coreg -) 6.25 mg PO BID [facility] Last Admin: 07/21/17 22:01 Dose: 6.25 mg Clopidogrel Bisulfate (Plavix -) 75 mg PO DAILY [facility] Last Admin: 07/21/17 11:13 Dose: 75 mg Escitalopram Oxalate (Lexapro -) 20 mg PO [facility] Last Admin: 07/21/17 22:04 Dose: 20 mg Furosemide (Lasix Injection -) 40 mg IVPUSH DAILY [facility] Last Admin: 07/21/17 09:36 Dose: 40 mg Heparin Sodium (Porcine) (Heparin -) 5,000 unit SQ TID [facility] Last Admin: 07/22/17 06:50 Dose: 5,000 unit Insulin Aspart (Novolog Vial Sliding Scale -) 1 vial SQ [facility] PRN Reason: Protocol Last Admin: 07/22/17 06:50 Dose: Not Given Insulin Detemir (Levemir Vial) 50 units SQ [facility] Last Admin: 07/21/17 22:09 Dose: 50 units Latanoprost (Xalatan 0.005% Eye Drops -) 1 drop OU HS [facility] Last Admin: 07/21/17 22:06 Dose: 1 drop Melatonin (Melatonin) 3 mg PO [facility] Last Admin: 07/21/17 22:42 Dose: 3 mg Rosuvastatin Calcium (Crestor -) 20 mg PO HS [facility] Last Admin: 07/21/17 22:02 Dose: 20 mg Tamsulosin HCl (Flomax -) 0.4 mg PO 0830 [facility] Last Admin: 07/21/17 08:31 Dose: 0.4 mg Valsartan (Diovan -) 80 mg PO DAILY [facility] Zolpidem Tartrate (Ambien -) 5 mg PO HS PRN PRN Reason: INSOMNIA Last Admin: 07/20/17 21:42 Dose: 5 mg - Objective Vital Signs: Vital Signs Temperature 97.6 F 07/22/17 08:18 Pulse Rate 70 07/22/17 08:18 Respiratory Rate 18 07/22/17 08:18 Blood Pressure 88/43 07/22/17 08:18 O2 Sat by Pulse Oximetry (%) 97 07/22/17 05:00 Constitutional: Yes: Well Nourished, No Distress, Calm Gastrointestinal: Yes: Soft. No: Distention, Rectal Bleeding, Tenderness, Vomiting Neurological: Yes: Alert, Oriented Labs: CBC, BMP 07/22/17 06:05 07/22/17 06:05 CBCD WBC 6.7 K/mm3 (4.0-10.0) 07/22/17 06:05 RBC 4.00 M/mm3 (4.00-5.60) 07/22/17 06:05 Hgb 10.5 GM/dL (11.7-16.9) L 07/22/17 06:05 Hct 31.6 % (35.4-49) L 07/22/17 06:05 MCV 79.0 fl (80-96) L 07/22/17 06:05 MCHC 33.2 g/dl (32.0-35.9) 07/22/17 06:05 RDW 19.0 % (11.9-15.9) H 07/22/17 06:05 Plt Count 166 K/MM3 (134-434) 07/22/17 06:05 MPV 8.6 fl (7.5-11.1) 07/22/17 06:05 CMP Sodium 139 mmol/L (136-145) 07/22/17 06:05 Potassium 3.9 mmol/L (3.5-5.1) 07/22/17 06:05 Chloride 106 mmol/L (98-107) 07/22/17 06:05 Carbon Dioxide 21 mmol/L (21-32) 07/22/17 06:05 Anion Gap 12 (8-16) 07/22/17 06:05 BUN 44 mg/dL (7-18) H D 03/14/18 06:05 Creatinine 1.8 mg/dL (0.7-1.3) H 07/22/17 06:05 Creat Clearance w eGFR 36.97 (>60) 07/22/17 06:05 Calcium 7.7 mg/dL (8.5-10.1) L 07/22/17 06:05 Total Bilirubin 0.6 mg/dL (0.2-1.0) D 07/22/17 06:05 AST 15 U/L (15-37) 07/22/17 06:05 ALT 20 U/L (12-78) 07/22/17 06:05 Alkaline Phosphatase 64 U/L (45-117) 07/22/17 06:05 Total Protein 5.9 g/dl (6.4-8.2) L 07/22/17 06:05 Albumin 2.8 g/dl (3.4-5.0) L 07/22/17 06:05 Problem List - Problems (1) Dyspnea Code(s): R06.00 - DYSPNEA, UNSPECIFIED Qualifiers: Dyspnea type: unspecified Qualified Code(s): R06.00 - Dyspnea, unspecified (2) Elevated troponin Code(s): R74.8 - ABNORMAL LEVELS OF OTHER SERUM ENZYMES (3) Acute on chronic renal insufficiency Code(s): N28.9 - DISORDER OF KIDNEY AND URETER, UNSPECIFIED; N18.9 - CHRONIC KIDNEY DISEASE, UNSPECIFIED (4) Anemia Code(s): D64.9 - ANEMIA, UNSPECIFIED Assessment/Plan GERD lifestyle and diet. Please reconsult as needed.
[2017-07-22 10:22] LABS: ALLENS TEST POSITIVE; ARTERIAL BLD GAS O2 SATURATION 95.3 % (90-98.9); ARTERIAL BLOOD GAS BASE EXCESS -4.4 meq/l (-2-2); ARTERIAL BLOOD GAS PCO2 31.9 mmHg (35-45); ARTERIAL BLOOD GAS PO2 81.2 mmHg (70-100)
--- NOTE | 2017-07-22 10:50 | EKG ---
Test Reason : Blood Pressure : / mmHG Vent. Rate : 071 BPM Atrial Rate : 071 BPM P-R Int : 236 ms QRS Dur : 140 ms QT Int : 452 ms P-R-T Axes : 059 027 129 degrees QTc Int : 491 ms SINUS RHYTHM WITH 1ST DEGREE A-V BLOCK WITH OCCASIONAL PREMATURE VENTRICULAR COMPLEXES NON-SPECIFIC INTRA-VENTRICULAR CONDUCTION BLOCK T WAVE ABNORMALITY, CONSIDER LATERAL ISCHEMIA ABNORMAL ECG WHEN COMPARED WITH ECG OF 19-JUL-2017 11:13, PREMATURE VENTRICULAR COMPLEXES ARE NOW PRESENT T WAVE INVERSION MORE EVIDENT IN ANTERIOR LEADS Confirmed by THOMAS EGAN, TAWNY ([id number]) on 07/22/2017 10:49:34 AM Referred By: Lorie GERONIMO Confirmed By:TAWNY GUZMAN MD
[2017-07-22] MEDS: BUDESONIDE/FORMETEROL FUMARATE 160/4.5 mcg INHALER IH SCH ×2 (10:52→22:06)
--- NOTE | 2017-07-22 10:57 | PN ---
Progress Note (short form) - Note Progress Note: no complaints. states breathing has improved. denies CP, SOB, fever, chills Noted that pt has been more lethargic since yesterday. and was hypotensive this AM. BP meds were held and received 250cc bolus with improvement in BP Current Medications Generic Name Dose Route Start Last Admin Trade Name Freq PRN Reason Stop Dose Admin Acetaminophen 650 mg 07/20/17 13:51 07/20/17 14:33 Tylenol - PO 650 mg Q4H PRN Administration PAIN LEVEL 4 - 6 Albuterol Sulfate 1 amp 07/19/17 22:53 07/21/17 06:23 Ventolin 0.083% Nebulizer Soln - NEB 1 amp Q6H PRN Administration WHEEZING Budesonide/Formoterol Fumarate 2 puff 07/19/17 22:00 07/21/17 22:06 Symbicort 160/4.5mcg - IH 2 puff BID [facility] Administration Carvedilol 6.25 mg 07/21/17 22:00 07/21/17 22:01 Coreg - PO 6.25 mg BID [facility] Administration Clopidogrel Bisulfate 75 mg 07/20/17 10:00 07/21/17 11:13 Plavix - PO 75 mg DAILY [facility] Administration Escitalopram Oxalate 20 mg 07/19/17 22:00 07/21/17 22:04 Lexapro - PO 20 mg HS [facility] Administration Furosemide 40 mg 07/20/17 14:45 07/21/17 09:36 Lasix Injection - IVPUSH 40 mg DAILY [facility] Administration Heparin Sodium (Porcine) 5,000 unit 07/19/17 16:00 07/22/17 06:50 Heparin - SQ 5,000 unit TID [facility] Administration Insulin Aspart 1 vial 07/19/17 16:30 07/22/17 06:50 Novolog Vial Sliding Scale - SQ Not Given [facility] Protocol Insulin Detemir 50 units 07/19/17 22:00 07/21/17 22:09 Levemir Vial SQ 50 units HS [facility] Administration Latanoprost 1 drop 07/19/17 22:00 07/21/17 22:06 Xalatan 0.005% Eye Drops - OU 1 drop HS [facility] Administration Melatonin 3 mg 07/21/17 22:00 07/21/17 22:42 Melatonin PO 3 mg HS [facility] Administration Rosuvastatin Calcium 20 mg 07/19/17 22:00 07/21/17 22:02 Crestor - PO 20 mg HS [facility] Administration Tamsulosin HCl 0.4 mg 07/20/17 08:30 07/21/17 08:31 Flomax - PO 0.4 mg 0830 [facility] Administration Valsartan 80 mg 07/22/17 10:00 Diovan - PO DAILY [facility] Zolpidem Tartrate 5 mg 07/19/17 22:00 07/20/17 21:42 Ambien - PO 5 mg HS PRN Administration INSOMNIA Last Vital Signs Temp Pulse Resp BP Pulse Ox 97.6 F 70 18 88/43 97 07/22/17 08:18 07/22/17 08:18 07/22/17 08:18 07/22/17 08:18 07/22/17 05:00 Intake & Output 07/19/17 07/20/17 07/21/17 07/22/17 23:59 23:59 23:59 23:59 Intake Total 50 50 790 Output Total 1000 1100 Balance 50 -950 -310 Weight 180 lb 9.6 oz 179 lb 2 oz 182 lb 12.8 oz General lethargic, easily arrousable to verbal stimuli, able to answer questions A&Ox3 CV S1 S2 RRR no murmur/rub/gallop Lungs CTA B/L no wheezing/rales/rhonchi Abdomen soft NT/ND Extremities no pedal edema Neuro CN grossly intact, strength 5/5 and equal in all 4 extremities CBCD WBC 6.7 K/mm3 (4.0-10.0) 07/22/17 06:05 RBC 4.00 M/mm3 (4.00-5.60) 07/22/17 06:05 Hgb 10.5 GM/dL (11.7-16.9) L 07/22/17 06:05 Hct 31.6 % (35.4-49) L 07/22/17 06:05 MCV 79.0 fl (80-96) L 07/22/17 06:05 MCHC 33.2 g/dl (32.0-35.9) 07/22/17 06:05 RDW 19.0 % (11.9-15.9) H 07/22/17 06:05 Plt Count 166 K/MM3 (134-434) 07/22/17 06:05 MPV 8.6 fl (7.5-11.1) 07/22/17 06:05 CMP Sodium 139 mmol/L (136-145) 07/22/17 06:05 Potassium 3.9 mmol/L (3.5-5.1) 07/22/17 06:05 Chloride 106 mmol/L (98-107) 07/22/17 06:05 Carbon Dioxide 21 mmol/L (21-32) 07/22/17 06:05 Anion Gap 12 (8-16) 07/22/17 06:05 BUN 44 mg/dL (7-18) H D 07/22/17 06:05 Creatinine 1.8 mg/dL (0.7-1.3) H 07/22/17 06:05 Creat Clearance w eGFR 36.97 (>60) 07/22/17 06:05 Calcium 7.7 mg/dL (8.5-10.1) L 07/22/17 06:05 Total Bilirubin 0.6 mg/dL (0.2-1.0) D 07/22/17 06:05 AST 15 U/L (15-37) 07/22/17 06:05 ALT 20 U/L (12-78) 07/22/17 06:05 Alkaline Phosphatase 64 U/L (45-117) 07/22/17 06:05 Total Protein 5.9 g/dl (6.4-8.2) L 07/22/17 06:05 Albumin 2.8 g/dl (3.4-5.0) L 07/22/17 06:05 Assessment and Plan: 77 year old male with PMHx of severe systolic CHF, HTN, CAD s/p stenting ( triple bypass about 10 years ago), COPD, CKD, active smoker, PVD s/p angioplasty , IDDM, admitted with 2 weeks of shortness of breath and cough with whitish sputum. 1. Acute on chronic systolic HF, severe LV systolic dysfunction- clinically euvolemic despite increase of weight of 2 pounds since yesterday. lasix and antihypertesnives were held this AM. coreg was increased will decrease it back to 3.125mg. hold valsartan. anticipate to re-start lasix po tomorrow pending what BP is. plan for left and right cardiac cath as outpatient. cardio on board 2. Acute metabolic encephalopathy- remains lethargic. as per RN hes been like this for 2 days. low suspicion for CVA as no deficits are present. could likely be due to hypotension vs medication. did receive ambien 2 nights ago and melatonin last night. does not sleep at night. will hold all sedating medications at this time. 3. Elevated troponin- Trop peak at 0.1. plan for cath as outpatient 4. UTI- on Ceftriaxone day 4. should complete 7 day course. UCx negative 5. COPD- no signs of exacerbation. cont inhalers. 6. PVD- s/p angioplasty. on plavix/crestor 7. CAD s/p CABG- not on asa due to GI bleed. cont plavix 8. DM- low sugar this am. likely due to reduced po intake with mental status. will half the levemir at this time until po intake improves. cont iss, bgm 9. CKD- slight uptrend due to hypotension vs medication induced. medications adjusted as below. will monitor 10. HTN- period of hypotension. responded well to 250cc bolus. only received increase dose of coreg last night. will reduce coreg dose. hold other medications for now. can re-start as BP improves. 11. DVT ppx- hep sq Visit type - Emergency Visit Emergency Visit: Yes ED Registration Date: 07/21/17 Care time: The patient presented to the Emergency Department on the above date and was hospitalized for further evaluation of their emergent condition. - New Patient This patient is new to me today: Yes Date on this admission: 07/22/17 - Critical Care Critical Care patient: No - Discharge Referral Referred to [facility] No
[2017-07-22] MEDS: CLOPIDOGREL BISULFATE 75 MG TABLET (FP) PO SCH (11:21)
[2017-07-22] MEDS: TAMSULOSIN HCL 0.4 MG CAP.ER.24H (FP) PO SCH (11:21)
--- NOTE | 2017-07-22 12:46 | PN ---
Progress Note, Physician History of Present Illness: Dyspnea improving, denies chest pain. Meds adjusted for hypotension earlier in AM. - Current Medication List Current Medications: Active Medications Acetaminophen (Tylenol -) 650 mg PO Q4H PRN PRN Reason: PAIN LEVEL 4 - 6 Last Admin: 07/20/17 14:33 Dose: 650 mg Albuterol Sulfate (Ventolin 0.083% Nebulizer Soln -) 1 amp NEB Q6H PRN PRN Reason: WHEEZING Last Admin: 07/21/17 06:23 Dose: 1 amp Budesonide/Formoterol Fumarate (Symbicort 160/4.5mcg -) 2 puff IH BID [facility] Last Admin: 07/21/17 22:06 Dose: 2 puff Carvedilol (Coreg -) 3.125 mg PO BID [facility] Clopidogrel Bisulfate (Plavix -) 75 mg PO DAILY [facility] Last Admin: 07/22/17 11:21 Dose: 75 mg Escitalopram Oxalate (Lexapro -) 20 mg PO HS [facility] Last Admin: 07/21/17 22:04 Dose: 20 mg Heparin Sodium (Porcine) (Heparin -) 5,000 unit SQ TID [facility] Last Admin: 07/22/17 06:50 Dose: 5,000 unit Ceftriaxone Sodium 1 gm/ (Dextrose) 50 mls @ 100 mls/hr IVPB DAILY [facility] Insulin Aspart (Novolog Vial Sliding Scale -) 1 vial SQ ACHS [facility] PRN Reason: Protocol Last Admin: 07/22/17 06:50 Dose: Not Given Insulin Detemir (Levemir Vial) 25 units SQ HS [facility] Latanoprost (Xalatan 0.005% Eye Drops -) 1 drop OU HS [facility] Last Admin: 07/21/17 22:06 Dose: 1 drop Rosuvastatin Calcium (Crestor -) 20 mg PO HS [facility] Last Admin: 07/21/17 22:02 Dose: 20 mg Tamsulosin HCl (Flomax -) 0.4 mg PO 0830 [facility] Last Admin: 07/22/17 11:21 Dose: 0.4 mg - Objective Vital Signs: Vital Signs Temperature 97.6 F 07/22/17 08:18 Pulse Rate 66 07/22/17 11:00 Respiratory Rate 18 07/22/17 11:00 Blood Pressure 105/49 07/22/17 11:00 O2 Sat by Pulse Oximetry (%) 97 07/22/17 10:00 Constitutional: Yes: No Distress, Calm, Thin Neck: Yes: Supple Cardiovascular: Yes: Regular Rate and Rhythm Respiratory: Yes: Regular, Diminished, On Nasal O2 Gastrointestinal: Yes: Normal Bowel Sounds, Soft Edema: No Labs: CBC, BMP 07/22/17 06:05 07/22/17 06:05 - ....Imaging EKG: Report Reviewed (Tele: NSR occ PVC) Problem List - Problems (1) Dyspnea Code(s): R06.00 - DYSPNEA, UNSPECIFIED Qualifiers: Dyspnea type: shortness of breath Qualified Code(s): R06.02 - Shortness of breath; R06.00 - Dyspnea, unspecified; R06.01 - Orthopnea (2) History of percutaneous coronary intervention Code(s): Z98.890 - OTHER SPECIFIED POSTPROCEDURAL STATES (3) Hx of CABG Code(s): Z95.1 - PRESENCE OF AORTOCORONARY BYPASS GRAFT (4) Acute on chronic renal insufficiency Code(s): N28.9 - DISORDER OF KIDNEY AND URETER, UNSPECIFIED; N18.9 - CHRONIC KIDNEY DISEASE, UNSPECIFIED (5) Anemia Code(s): D64.9 - ANEMIA, UNSPECIFIED Qualifiers: Anemia type: due to chronic kidney disease Chronic kidney disease stage: stage 3 (moderate) Qualified Code(s): N18.3 - Chronic kidney disease, stage 3 (moderate); D63.1 - Anemia in chronic kidney disease; D63.1 - Anemia in chronic kidney disease (6) CAD (coronary artery disease) Code(s): I25.10 - ATHSCL HEART DISEASE OF [place] CORONARY ARTERY W/O ANG PCTRS Qualifiers: Coronary Disease-Associated Artery/Lesion type: [place] artery [place] vs. transplanted heart: [place] heart Associated angina: without angina Qualified Code(s): I25.10 - Atherosclerotic heart disease of [place] coronary artery without angina pectoris (7) Hyperlipidemia Code(s): E78.5 - HYPERLIPIDEMIA, UNSPECIFIED Qualifiers: Hyperlipidemia type: pure hypercholesterolemia Qualified Code(s): E78.00 - Pure hypercholesterolemia, unspecified; E78.0 - Pure hypercholesterolemia (8) PVD (peripheral vascular disease) Code(s): I73.9 - PERIPHERAL VASCULAR DISEASE, UNSPECIFIED (9) Acute decompensated heart failure Code(s): I50.9 - HEART FAILURE, UNSPECIFIED Assessment/Plan 07/20/2017 Mildly dilated LV with severe decreased LVEF 25-30%, mild-mod decreased RV fxn, mild-mod MR, mod TR, RVSP 46 mmHg 1. Acute on chronic LV severe systolic failure improving 2. CAD post PCI/stent, history of CABG 3. Hypertension 4. Hypercholesterolemia 5. Diabetes mellitus 6. PAD post [address] [employer] 7. COPD 8. Acute on CKD PLAN: 1. Transthoracic echocardiography reviewed LVEF low at 25-30%. 2. Carvedilol 3.125 bid and rechallenge Valsartan 40 mg once a day as hemodynamics tolerate 3. Continue Plavix 75 qd and Rosuvastatin 20 qhs. 4. Start Spironolactone 25 qd as hemodynamics tolerate with monitor diuretic response, renal fxn and electrolytes 5. Further cardiac work up such as R&LHC and assess indication for ICD to be performed as outpatient 6. OOB to chair
[2017-07-22] MEDS ORDERED: INSULIN DETEMIR 100 UNITS/ML MDV SQ ONE (12:49)
[2017-07-22] MEDS ORDERED: INSULIN (NOVOLOG) ASPART 100 UNITS/ML 10ML VIAL ONE ×2 (12:50→17:35)
[2017-07-22] MEDS ORDERED: cefTRIAXone SODIUM 1 GM VIAL ONE (14:44)
[2017-07-22] MEDS ORDERED: DEXTROSE 5%-WATER - 50 ML IVPB ONE (14:44)
[2017-07-22] MEDS: CEFTRIAXONE 1 GM in DEXTROSE 5%-WATER - 50 ML IVPB SCH (14:49)
[2017-07-22] MEDS: VALSARTAN 40 MG TABLET (FP) PO SCH (14:49)
[2017-07-22] MEDS: SPIRONOLACTONE 25 MG TABLET (FP) PO SCH (17:28)
[2017-07-22] MEDS: ACETAMINOPHEN 325 MG TABLET (FP) PO PRN (21:59)
[2017-07-22] MEDS: CARVEDILOL 3.125 MG TABLET (FP) PO SCH (22:00)
[2017-07-22] MEDS: ROSUVASTATIN CA 20 MG TABLET (FP) PO SCH (22:00)
[2017-07-22] MEDS: ESCITALOPRAM OXALATE 20 MG TABLET (FP) PO SCH (22:00)
[2017-07-22] MEDS: INSULIN DETEMIR 100 UNITS/ML MDV SQ SCH (22:07)
[2017-07-22] MEDS ORDERED: diphenhydrAMINE HCL 25 MG CAPSULE (FP) PO ONE (22:16)
[2017-07-22] MEDS: LATANOPROST 0.005% OPHTH SOLN 2.5ML BOTTLE OU SCH (22:22)
[2017-07-23] MEDS ORDERED: MELATONIN 5 MG TABLETS PO ONE (00:57)
[2017-07-23] MEDS: HEPARIN NA (PORCINE) 5,000 UNITS/ML 1ML VIAL SQ SCH ×3 (06:05→21:46)
[2017-07-23] MEDS: INSULIN SLIDING SCALE (NOVOLOG) 1 VIAL SQ SCH ×4 (06:08→21:46)
[2017-07-23 07:09] LABS: ANION GAP 14 (8-16); BLOOD UREA NITROGEN 50 mg/dL (7-18); CALCIUM 8.5 mg/dL (8.5-10.1); CHLORIDE 106 mmol/L (98-107); CO2 20 mmol/L (21-32); GLUCOSE,RANDOM 87 mg/dL (74-106); POTASSIUM 4.3 mmol/L (3.5-5.1); SODIUM 140 mmol/L (136-145)
[2017-07-23 07:11] LABS: CREATININE 1.8 mg/dL (0.7-1.3); MAGNESIUM 2.4 mg/dL (1.8-2.4); PHOSPHOROUS 4.7 mg/dL (2.5-4.9)
[2017-07-23] MEDS: TAMSULOSIN HCL 0.4 MG CAP.ER.24H (FP) PO SCH (08:24)
--- NOTE | 2017-07-23 10:01 | PN ---
Progress Note, Physician History of Present Illness: Dyspnea improving, denies chest pain. Hemodynamics improved. - Current Medication List Current Medications: Active Medications Acetaminophen (Tylenol -) 650 mg PO Q4H PRN PRN Reason: PAIN LEVEL 4 - 6 Last Admin: 07/22/17 21:59 Dose: 650 mg Albuterol Sulfate (Ventolin 0.083% Nebulizer Soln -) 1 amp NEB Q6H PRN PRN Reason: WHEEZING Last Admin: 07/21/17 06:23 Dose: 1 amp Budesonide/Formoterol Fumarate (Symbicort 160/4.5mcg -) 2 puff IH BID [facility] Last Admin: 07/22/17 22:06 Dose: 2 puff Carvedilol (Coreg -) 3.125 mg PO BID [facility] Last Admin: 07/22/17 22:00 Dose: 3.125 mg Clopidogrel Bisulfate (Plavix -) 75 mg PO DAILY [facility] Last Admin: 07/22/17 11:21 Dose: 75 mg Escitalopram Oxalate (Lexapro -) 20 mg PO HS [facility] Last Admin: 07/22/17 22:00 Dose: 20 mg Heparin Sodium (Porcine) (Heparin -) 5,000 unit SQ TID [facility] Last Admin: 07/23/17 06:05 Dose: 5,000 unit Ceftriaxone Sodium 1 gm/ (Dextrose) 50 mls @ 100 mls/hr IVPB DAILY [facility] Last Admin: 07/22/17 14:49 Dose: 100 mls/hr Insulin Aspart (Novolog Vial Sliding Scale -) 1 vial SQ ACHS [facility] PRN Reason: Protocol Last Admin: 07/23/17 06:08 Dose: Not Given Insulin Detemir (Levemir Vial) 25 units SQ [facility] Last Admin: 07/22/17 22:07 Dose: 25 units Latanoprost (Xalatan 0.005% Eye Drops -) 1 drop OU HS [facility] Last Admin: 07/22/17 22:22 Dose: 1 drop Rosuvastatin Calcium (Crestor -) 20 mg PO HS [facility] Last Admin: 07/22/17 22:00 Dose: 20 mg Spironolactone (Aldactone -) 25 mg PO DAILY@1800 [facility] Last Admin: 07/22/17 17:28 Dose: 25 mg Tamsulosin HCl (Flomax -) 0.4 mg PO 0830 [facility] Last Admin: 07/23/17 08:24 Dose: 0.4 mg Valsartan (Diovan -) 40 mg PO DAILY [facility] Last Admin: 07/22/17 14:49 Dose: 40 mg - Objective Vital Signs: Vital Signs Temperature 98.4 F 07/23/17 08:48 Pulse Rate 80 07/23/17 08:48 Respiratory Rate 20 07/23/17 08:48 Blood Pressure 114/49 07/23/17 08:48 O2 Sat by Pulse Oximetry (%) 96 07/23/17 08:27 Constitutional: Yes: No Distress, Calm Neck: Yes: Supple Cardiovascular: Yes: Regular Rate and Rhythm Respiratory: Yes: Regular, Diminished, On Nasal O2 Gastrointestinal: Yes: Normal Bowel Sounds, Soft Edema: No Labs: CBC, BMP 07/22/17 06:05 07/23/17 06:15 - ....Imaging EKG: Report Reviewed (SR @ 71 IVCD, PVC) Problem List - Problems (1) Dyspnea Code(s): R06.00 - DYSPNEA, UNSPECIFIED Qualifiers: Dyspnea type: shortness of breath Qualified Code(s): R06.02 - Shortness of breath; R06.00 - Dyspnea, unspecified; R06.01 - Orthopnea (2) History of percutaneous coronary intervention Code(s): Z98.890 - OTHER SPECIFIED POSTPROCEDURAL STATES (3) Hx of CABG Code(s): Z95.1 - PRESENCE OF AORTOCORONARY BYPASS GRAFT (4) Acute on chronic renal insufficiency Code(s): N28.9 - DISORDER OF KIDNEY AND URETER, UNSPECIFIED; N18.9 - CHRONIC KIDNEY DISEASE, UNSPECIFIED (5) Anemia Code(s): D64.9 - ANEMIA, UNSPECIFIED Qualifiers: Anemia type: due to chronic kidney disease Chronic kidney disease stage: stage 3 (moderate) Qualified Code(s): N18.3 - Chronic kidney disease, stage 3 (moderate); D63.1 - Anemia in chronic kidney disease; D63.1 - Anemia in chronic kidney disease (6) CAD (coronary artery disease) Code(s): I25.10 - ATHSCL HEART DISEASE OF [place] CORONARY ARTERY W/O ANG PCTRS Qualifiers: Coronary Disease-Associated Artery/Lesion type: [place] artery [place] vs. transplanted heart: [place] heart Associated angina: without angina Qualified Code(s): I25.10 - Atherosclerotic heart disease of [place] coronary artery without angina pectoris (7) Hyperlipidemia Code(s): E78.5 - HYPERLIPIDEMIA, UNSPECIFIED Qualifiers: Hyperlipidemia type: pure hypercholesterolemia Qualified Code(s): E78.00 - Pure hypercholesterolemia, unspecified; E78.0 - Pure hypercholesterolemia (8) PVD (peripheral vascular disease) Code(s): I73.9 - PERIPHERAL VASCULAR DISEASE, UNSPECIFIED (9) Acute decompensated heart failure Code(s): I50.9 - HEART FAILURE, UNSPECIFIED Assessment/Plan 07/20/2017 Mildly dilated LV with severe decreased LVEF 25-30%, mild-mod decreased RV fxn, mild-mod MR, mod TR, RVSP 46 mmHg 1. Acute on chronic LV severe systolic failure improving 2. CAD post PCI/stent, history of CABG 3. Hypertension 4. Hypercholesterolemia 5. Diabetes mellitus 6. PAD post [employer] 7. COPD 8. Acute on CKD PLAN: 1. Transthoracic echocardiography reviewed LVEF low at 25-30%. 2. Carvedilol 3.125 bid and increase Valsartan 80 mg once a day as hemodynamics tolerate 3. Continue Plavix 75 qd and Rosuvastatin 20 qhs. 4. Continue Spironolactone 25 qd as hemodynamics tolerate with monitor diuretic response, renal fxn and electrolytes 5. Further cardiac work up such as R&LHC and assess indication for ICD to be performed as outpatient 6. Ambulate and d/c planning, BD and O2 as needed
[2017-07-23] MEDS: ALBUTEROL SO4 0.083% IH SOL 2.5 MG/3 ML VIAL.NEB. NEB PRN (10:06)
[2017-07-23] MEDS: CLOPIDOGREL BISULFATE 75 MG TABLET (FP) PO SCH (10:10)
[2017-07-23] MEDS: BUDESONIDE/FORMETEROL FUMARATE 160/4.5 mcg INHALER IH SCH ×2 (10:11→21:46)
[2017-07-23] MEDS: CARVEDILOL 3.125 MG TABLET (FP) PO SCH ×2 (10:12→21:45)
[2017-07-23] MEDS ORDERED: cefTRIAXone SODIUM 1 GM VIAL ONE (10:14)
[2017-07-23] MEDS ORDERED: DEXTROSE 5%-WATER - 50 ML IVPB ONE (10:15)
[2017-07-23] MEDS: CEFTRIAXONE 1 GM in DEXTROSE 5%-WATER - 50 ML IVPB SCH (10:17)
[2017-07-23] MEDS: VALSARTAN 80 MG TABLET (UD) PO SCH (12:03)
[2017-07-23] MEDS ORDERED: INSULIN (NOVOLOG) ASPART 100 UNITS/ML 10ML VIAL ONE ×2 (12:07→21:43)
--- NOTE | 2017-07-23 12:08 | PN ---
Physical Exam: SUBJECTIVE: Patient seen and examined at the bedside. Feels well, but still weak. Not home oxygen dependent at home, wearing oxygen now States he cant sleep at nite, ambien, melatonin and benadryl not working States he sleeps during the day at home. OBJECTIVE: PT and respiratory pre and post Vital Signs Period Temp Pulse Resp BP Sys/Garcia Pulse Ox Last 24 Hr 97.6 F-98.4 F 74-80 18-20 101-115/49-66 96-97 GENERAL: The patient is awake, alert, and fully oriented, in no acute distress. HEAD: Normal with no signs of trauma. EYES: PERRL, extraocular movements intact, sclera anicteric, conjunctiva clear. No ptosis. ENT: Ears normal, nares patent, oropharynx clear without exudates, moist mucous membranes. NECK: Trachea midline, full range of motion, supple. LUNGS: breath diminished at the bases, no wheezing, no accessory muscle use, SOB with ambulation HEART: Regular rate and rhythm, S1, S2 without murmur, rub or gallop. ABDOMEN: Soft, nontender, nondistended, normoactive bowel sounds, no guarding, no rebound, no hepatosplenomegaly, no masses. EXTREMITIES: 2 no edema. NEUROLOGICAL:Normal speech, gait not observed. PSYCH: Normal mood, normal affect. SKIN: Warm, dry, normal turgor, no rashes or lesions noted Laboratory Results - last 24 hr 07/22/17 07/22/17 07/22/17 12:16 17:07 22:06 Sodium Potassium Chloride Carbon Dioxide Anion Gap BUN Creatinine POC Glucometer 251 258 280 Random Glucose Calcium Phosphorus Magnesium 07/23/17 07/23/17 06:06 06:15 Sodium 140 Potassium 4.3 Chloride 106 Carbon Dioxide 20 L Anion Gap 14 BUN 50 H Creatinine 1.8 H POC Glucometer 110 Random Glucose 87 Calcium 8.5 Phosphorus 4.7 D Magnesium 2.4 Active Medications Generic Name Dose Route Start Last Admin Trade Name Freq PRN Reason Stop Dose Admin Acetaminophen 650 mg 07/20/17 13:51 07/22/17 21:59 Tylenol - PO 650 mg Q4H PRN Administration PAIN LEVEL 4 - 6 Albuterol Sulfate 1 amp 07/19/17 22:53 07/23/17 10:06 Ventolin 0.083% Nebulizer Soln - NEB 1 amp Q6H PRN Administration WHEEZING Budesonide/Formoterol Fumarate 2 puff 07/19/17 22:00 07/23/17 10:11 Symbicort 160/4.5mcg - IH 2 puff BID KADEEM Administration Carvedilol 3.125 mg 07/22/17 22:00 07/23/17 10:12 Coreg - PO 3.125 mg BID KADEEM Administration Clopidogrel Bisulfate 75 mg 07/20/17 10:00 07/23/17 10:10 Plavix - PO 75 mg DAILY KADEEM Administration Escitalopram Oxalate 20 mg 07/19/17 22:00 07/22/17 22:00 Lexapro - PO 20 mg HS KADEEM Administration Heparin Sodium (Porcine) 5,000 unit 07/19/17 16:00 07/23/17 06:05 Heparin - SQ 5,000 unit TID KADEEM Administration Ceftriaxone Sodium 1 gm/ 50 mls @ 100 mls/hr 07/22/17 11:45 07/23/17 10:17 Dextrose IVPB 100 mls/hr DAILY KADEEM Administration Insulin Aspart 1 vial 07/19/17 16:30 07/23/17 12:04 Novolog Vial Sliding Scale - SQ 2 units ACHS KADEEM Administration Protocol Insulin Detemir 25 units 07/22/17 22:00 07/22/17 22:07 Levemir Vial SQ 25 units HS KADEEM Administration Latanoprost 1 drop 07/19/17 22:00 07/22/17 22:22 Xalatan 0.005% Eye Drops - OU 1 drop HS KADEEM Administration Rosuvastatin Calcium 20 mg 07/19/17 22:00 07/22/17 22:00 Crestor - PO 20 mg HS KADEEM Administration Spironolactone 25 mg 07/22/17 18:00 07/22/17 17:28 Aldactone - PO 25 mg DAILY@1800 KADEEM Administration Tamsulosin HCl 0.4 mg 07/20/17 08:30 07/23/17 08:24 Flomax - PO 0.4 mg 0830 AKDEEM Administration Valsartan 80 mg 07/23/17 10:15 07/23/17 12:03 Diovan - PO Not Given DAILY KADEEM F F
[2017-07-23] MEDS: VALSARTAN 40 MG TABLET (FP) PO SCH (14:01)
[2017-07-23] MEDS: CARVEDILOL 6.25 MG TABLET (FP) PO SCH (16:06)
[2017-07-23] MEDS: FUROSEMIDE 40 MG/4 ML INJECTABLE VIAL IVPUSH SCH (16:07)
[2017-07-23] MEDS ORDERED: PT OWN MED DRAWER 7, Y5N ONE (18:25)
[2017-07-23] MEDS: SPIRONOLACTONE 25 MG TABLET (FP) PO SCH (18:29)
--- NOTE | 2017-07-23 19:19 | PN ---
Physical Exam: SUBJECTIVE: Patient seen and examined Patient seen and examined at the bedside. Feels well, but still weak. Not home oxygen dependent at home, wearing oxygen now States he cant sleep at nite, ambien, melatonin and benadryl not working States he sleeps during the day at home. OBJECTIVE: Vital Signs Period Temp Pulse Resp BP Sys/Garcia Pulse Ox Last 24 Hr 97.6 F-98.4 F 75-86 20-20 101-126/49-66 96-96 GENERAL: The patient is awake, alert, and fully oriented, in no acute distress. HEAD: Normal with no signs of trauma. EYES: PERRL, extraocular movements intact, sclera anicteric, conjunctiva clear. No ptosis. ENT: Ears normal, nares patent, oropharynx clear without exudates, moist mucous membranes. NECK: Trachea midline, full range of motion, supple. LUNGS: breath diminished at the bases, no wheezing, no accessory muscle use, SOB with ambulation HEART: Regular rate and rhythm, S1, S2 without murmur, rub or gallop. ABDOMEN: Soft, nontender, nondistended, normoactive bowel sounds, no guarding, no rebound, no hepatosplenomegaly, no masses. EXTREMITIES: 2 no edema. NEUROLOGICAL:Normal speech, gait not observed. PSYCH: Normal mood, normal affect. SKIN: Warm, dry, normal turgor, no rashes or lesions noted Laboratory Results - last 24 hr 07/22/17 07/23/17 07/23/17 22:06 06:06 06:15 Sodium 140 Potassium 4.3 Chloride 106 Carbon Dioxide 20 L Anion Gap 14 BUN 50 H Creatinine 1.8 H POC Glucometer 280 110 Random Glucose 87 Calcium 8.5 Phosphorus 4.7 D Magnesium 2.4 07/23/17 07/23/17 11:56 18:30 Sodium Potassium Chloride Carbon Dioxide Anion Gap BUN Creatinine POC Glucometer 178 244 Random Glucose Calcium Phosphorus Magnesium Active Medications Generic Name Dose Route Start Last Admin Trade Name Freq PRN Reason Stop Dose Admin Acetaminophen 650 mg 07/20/17 13:51 07/22/17 21:59 Tylenol - PO 650 mg Q4H PRN Administration PAIN LEVEL 4 - 6 Albuterol Sulfate 1 amp 07/19/17 22:53 07/23/17 10:06 Ventolin 0.083% Nebulizer Soln - NEB 1 amp Q6H PRN Administration WHEEZING Budesonide/Formoterol Fumarate 2 puff 07/19/17 22:00 07/23/17 10:11 Symbicort 160/4.5mcg - IH 2 puff BID KADEEM Administration Carvedilol 3.125 mg 07/22/17 22:00 07/23/17 10:12 Coreg - PO 3.125 mg BID KADEEM Administration Clopidogrel Bisulfate 75 mg 07/20/17 10:00 07/23/17 10:10 Plavix - PO 75 mg DAILY KADEEM Administration Escitalopram Oxalate 20 mg 07/19/17 22:00 07/22/17 22:00 Lexapro - PO 20 mg HS KADEEM Administration Heparin Sodium (Porcine) 5,000 unit 07/19/17 16:00 07/23/17 13:50 Heparin - SQ 5,000 unit TID KADEEM Administration Ceftriaxone Sodium 1 gm/ 50 mls @ 100 mls/hr 07/22/17 11:45 07/23/17 10:17 Dextrose IVPB 100 mls/hr DAILY KADEEM Administration Insulin Aspart 1 vial 07/19/17 16:30 07/23/17 18:31 Novolog Vial Sliding Scale - SQ 4 units ACHS KADEEM Administration Protocol Insulin Detemir 25 units 07/22/17 22:00 07/22/17 22:07 Levemir Vial SQ 25 units HS KADEEM Administration Latanoprost 1 drop 07/19/17 22:00 07/22/17 22:22 Xalatan 0.005% Eye Drops - OU 1 drop HS KADEEM Administration Rosuvastatin Calcium 20 mg 07/19/17 22:00 07/22/17 22:00 Crestor - PO 20 mg HS KADEEM Administration Spironolactone 25 mg 07/22/17 18:00 07/23/17 18:29 Aldactone - PO 25 mg DAILY@1800 KADEEM Administration Tamsulosin HCl 0.4 mg 07/20/17 08:30 07/23/17 08:24 Flomax - PO 0.4 mg 0830 KADEEM Administration Valsartan 80 mg 07/23/17 10:15 07/23/17 12:03 Diovan - PO Not Given DAILY [facility] ASSESSMENT/PLAN: Patient is a 77 year old male with a past medical history of severe systolic heart failure, hypertension CAD s/p stenting (triple bypass about 10 years ago) , COPD, CKD, active smoker, PVD s/p angioplasty, IDDM, admitted with 2 weeks of shortness of breath and cough with whitish sputum. Cardiology: Acute on chronic systolic HF Severe LV systolic dysfunction BP improved Will restart on Lasix PO On Coreq 3.125mg BID Valsartan 80mg daily Plan for left and right cardiac cath as outpatient Cardiology following CAD s/p CABG, No asa secondary to hx of GI bleed, on Plavix PVD s/p angioplasty on Plavix Acute metabolic encephalopathy, resolved Likely due to sedating meds Elevated trop with a peak of 0.1 Cardiac cath outpatient UTI On Ceftriaxone day 6 Will need a total of 7 doses Diabetes Mellitus Novolog, Levemir Chronic kidney disease Hypertension, chronic Episodes of previous hypotension resolved
[2017-07-23] MEDS ORDERED: ROSUVASTATIN CA 10 MG TABLET (FP) ONE (21:42)
[2017-07-23] MEDS: ROSUVASTATIN CA 20 MG TABLET (FP) PO SCH (21:45)
[2017-07-23] MEDS: ESCITALOPRAM OXALATE 20 MG TABLET (FP) PO SCH (21:45)
[2017-07-23] MEDS: INSULIN DETEMIR 100 UNITS/ML MDV SQ SCH (21:46)
[2017-07-24] MEDS: ALBUTEROL SO4 0.083% IH SOL 2.5 MG/3 ML VIAL.NEB. NEB PRN ×3 (01:43→11:22)
[2017-07-24] MEDS: HEPARIN NA (PORCINE) 5,000 UNITS/ML 1ML VIAL SQ SCH ×3 (06:33→22:12)
[2017-07-24] MEDS: INSULIN SLIDING SCALE (NOVOLOG) 1 VIAL SQ SCH ×4 (06:35→23:06)
[2017-07-24] MEDS ORDERED: INSULIN DETEMIR 100 UNITS/ML MDV SQ ONE (06:49)
[2017-07-24] MEDS ORDERED: INSULIN (NOVOLOG) ASPART 100 UNITS/ML 10ML VIAL ONE (06:49)
[2017-07-24] MEDS ORDERED: PT OWN MED DRAWER 7, Y5N ONE (11:12)
[2017-07-24] MEDS ORDERED: cefTRIAXone SODIUM 1 GM VIAL ONE (11:13)
[2017-07-24] MEDS ORDERED: DEXTROSE 5%-WATER - 50 ML IVPB ONE (11:13)
[2017-07-24] MEDS: CARVEDILOL 3.125 MG TABLET (FP) PO SCH ×2 (11:29→22:11)
[2017-07-24] MEDS: CLOPIDOGREL BISULFATE 75 MG TABLET (FP) PO SCH (11:29)
[2017-07-24] MEDS: CEFTRIAXONE 1 GM in DEXTROSE 5%-WATER - 50 ML IVPB SCH (11:29)
[2017-07-24] MEDS: VALSARTAN 80 MG TABLET (UD) PO SCH (11:29)
[2017-07-24] MEDS: BUDESONIDE/FORMETEROL FUMARATE 160/4.5 mcg INHALER IH SCH ×2 (11:30→22:19)
[2017-07-24] MEDS: TAMSULOSIN HCL 0.4 MG CAP.ER.24H (FP) PO SCH (11:36)
[2017-07-24 13:04] LABS: ALBUMIN 2.9 g/dl (3.4-5.0); ANION GAP 13 (8-16); BILIRUBIN,TOTAL 0.6 mg/dL (0.2-1.0); BLOOD UREA NITROGEN 49 mg/dL (7-18); CALCIUM 8.8 mg/dL (8.5-10.1); CHLORIDE 104 mmol/L (98-107); CO2 18 mmol/L (21-32); CREATININE 1.6 mg/dL (0.7-1.3); GLUCOSE,RANDOM 198 mg/dL (74-106); POTASSIUM 4.6 mmol/L (3.5-5.1); SGOT/AST 14 U/L (15-37); SGPT/ALT 25 U/L (12-78); SODIUM 135 mmol/L (136-145); TOT PROT 6.6 g/dl (6.4-8.2)
[2017-07-24 13:05] LABS: ALK PHOS 71 U/L (45-117)
[2017-07-24] MEDS ORDERED: FUROSEMIDE 40 MG/4 ML INJECTABLE VIAL IVPUSH ONE (13:08)
--- NOTE | 2017-07-24 15:16 | PN ---
Progress Note, Physician History of Present Illness: Dyspnea with minimal exertion, denies chest pain. Hemodynamics improved. - Current Medication List Current Medications: Active Medications Acetaminophen (Tylenol -) 650 mg PO Q4H PRN PRN Reason: PAIN LEVEL 4 - 6 Last Admin: 07/22/17 21:59 Dose: 650 mg Albuterol Sulfate (Ventolin 0.083% Nebulizer Soln -) 1 amp NEB Q6H PRN PRN Reason: WHEEZING Last Admin: 07/24/17 11:22 Dose: 1 amp Budesonide/Formoterol Fumarate (Symbicort 160/4.5mcg -) 2 puff IH BID [facility] Last Admin: 07/24/17 11:30 Dose: 2 puff Carvedilol (Coreg -) 3.125 mg PO BID [facility] Last Admin: 07/24/17 11:29 Dose: 3.125 mg Clopidogrel Bisulfate (Plavix -) 75 mg PO DAILY [facility] Last Admin: 07/24/17 11:29 Dose: 75 mg Escitalopram Oxalate (Lexapro -) 20 mg PO HS [facility] Last Admin: 07/23/17 21:45 Dose: 20 mg Heparin Sodium (Porcine) (Heparin -) 5,000 unit SQ TID [facility] Last Admin: 07/24/17 14:30 Dose: 5,000 unit Ceftriaxone Sodium 1 gm/ (Dextrose) 50 mls @ 100 mls/hr IVPB DAILY [facility] Last Admin: 07/24/17 11:29 Dose: 100 mls/hr Insulin Aspart (Novolog Vial Sliding Scale -) 1 vial SQ ACHS [facility] PRN Reason: Protocol Last Admin: 07/24/17 12:51 Dose: 4 units Insulin Detemir (Levemir Vial) 25 units SQ HS [facility] Last Admin: 07/23/17 21:46 Dose: 25 units Latanoprost (Xalatan 0.005% Eye Drops -) 1 drop OU HS [facility] Last Admin: 07/22/17 22:22 Dose: 1 drop Rosuvastatin Calcium (Crestor -) 20 mg PO HS [facility] Last Admin: 07/23/17 21:45 Dose: 20 mg Spironolactone (Aldactone -) 25 mg PO DAILY@1800 [facility] Last Admin: 07/23/17 18:29 Dose: 25 mg Tamsulosin HCl (Flomax -) 0.4 mg PO 0830 [facility] Last Admin: 07/24/17 11:36 Dose: 0.4 mg Valsartan (Diovan -) 80 mg PO DAILY KADEEM Last Admin: 07/24/17 11:29 Dose: 80 mg - Objective Vital Signs: Vital Signs Temperature 97.4 F L 07/24/17 14:00 Pulse Rate 84 07/24/17 14:00 Respiratory Rate 20 07/24/17 14:00 Blood Pressure 120/68 07/24/17 14:00 O2 Sat by Pulse Oximetry (%) 94 L 07/23/17 18:00 Constitutional: Yes: No Distress, Calm Neck: Yes: Supple Cardiovascular: Yes: Regular Rate and Rhythm Respiratory: Yes: Regular, Diminished, On Nasal O2 Gastrointestinal: Yes: Normal Bowel Sounds, Soft Edema: No Labs: CBC, BMP 07/22/17 06:05 07/24/17 12:20 Problem List - Problems (1) Dyspnea Code(s): R06.00 - DYSPNEA, UNSPECIFIED Qualifiers: Dyspnea type: shortness of breath Qualified Code(s): R06.02 - Shortness of breath; R06.00 - Dyspnea, unspecified; R06.01 - Orthopnea (2) History of percutaneous coronary intervention Code(s): Z98.890 - OTHER SPECIFIED POSTPROCEDURAL STATES (3) Hx of CABG Code(s): Z95.1 - PRESENCE OF AORTOCORONARY BYPASS GRAFT (4) Acute on chronic renal insufficiency Code(s): N28.9 - DISORDER OF KIDNEY AND URETER, UNSPECIFIED; N18.9 - CHRONIC KIDNEY DISEASE, UNSPECIFIED (5) Anemia Code(s): D64.9 - ANEMIA, UNSPECIFIED Qualifiers: Anemia type: due to chronic kidney disease Chronic kidney disease stage: stage 3 (moderate) Qualified Code(s): N18.3 - Chronic kidney disease, stage 3 (moderate); D63.1 - Anemia in chronic kidney disease; D63.1 - Anemia in chronic kidney disease (6) CAD (coronary artery disease) Code(s): I25.10 - ATHSCL HEART DISEASE OF [place] CORONARY ARTERY W/O ANG PCTRS Qualifiers: Coronary Disease-Associated Artery/Lesion type: [place] artery [place] vs. transplanted heart: [place] heart Associated angina: without angina Qualified Code(s): I25.10 - Atherosclerotic heart disease of [place] coronary artery without angina pectoris (7) Hyperlipidemia Code(s): E78.5 - HYPERLIPIDEMIA, UNSPECIFIED Qualifiers: Hyperlipidemia type: pure hypercholesterolemia Qualified Code(s): E78.00 - Pure hypercholesterolemia, unspecified; E78.0 - Pure hypercholesterolemia (8) PVD (peripheral vascular disease) Code(s): I73.9 - PERIPHERAL VASCULAR DISEASE, UNSPECIFIED (9) Acute decompensated heart failure Code(s): I50.9 - HEART FAILURE, UNSPECIFIED Assessment/Plan 07/20/2017 Mildly dilated LV with severe decreased LVEF 25-30%, mild-mod decreased RV fxn, mild-mod MR, mod TR, RVSP 46 mmHg 1. Acute on chronic LV severe systolic failure 2. CAD post PCI/stent, history of CABG 3. Hypertension 4. Hypercholesterolemia 5. Diabetes mellitus 6. PAD post TREE CLIMBER 7. COPD 8. Acute on CKD improved PLAN: 1. Transthoracic echocardiography reviewed LVEF low at 25-30%. 2. Maintain Carvedilol 3.125 bid and change Valsartan to Entresto 24/26 bid with uptitration as hemodynamics tolerate 3. Continue Plavix 75 qd and Rosuvastatin 20 qhs. 4. Resume IV diuresis, continue Spironolactone 25 qd as hemodynamics tolerate with monitor diuretic response, renal fxn and electrolytes 5. Further cardiac work up such as R&LHC and assess indication for ICD to be performed as outpatient 6. Check CXR, BD and O2 as needed, complete empiric abx course
--- NOTE | 2017-07-24 16:53 | PN ---
Progress Note (short form) - Note Progress Note: PULMONARY CONSULTATION DICTATED 07/24/17 IMP ACUTE ON CHRONIC SYSTOLIC CHF ASHD S/P CABG,STENTS COPD PULMONARY HTN DM PVD S/P STENTS TOBACCO ABUSE PLAN LASIX O2 INHALED BRONCHODILATORS GLYCEMIC CONTROL SMOKING CESSATION COUNSELED HOME O2 DR DELVALLE Problem List - Problems (1) Dyspnea Code(s): R06.00 - DYSPNEA, UNSPECIFIED Qualifiers: Dyspnea type: shortness of breath Qualified Code(s): R06.02 - Shortness of breath; R06.00 - Dyspnea, unspecified; R06.01 - Orthopnea (2) History of percutaneous coronary intervention Code(s): Z98.890 - OTHER SPECIFIED POSTPROCEDURAL STATES (3) Hx of CABG Code(s): Z95.1 - PRESENCE OF AORTOCORONARY BYPASS GRAFT (4) Acute on chronic renal insufficiency Code(s): N28.9 - DISORDER OF KIDNEY AND URETER, UNSPECIFIED; N18.9 - CHRONIC KIDNEY DISEASE, UNSPECIFIED (5) Bladder wall thickening Code(s): N32.89 - OTHER SPECIFIED DISORDERS OF [place] (6) CAD (coronary artery disease) Code(s): I25.10 - ATHSCL HEART DISEASE OF [place] CORONARY ARTERY W/O ANG PCTRS Qualifiers: Coronary Disease-Associated Artery/Lesion type: [place] artery [place] vs. transplanted heart: [place] heart Associated angina: without angina Qualified Code(s): I25.10 - Atherosclerotic heart disease of [place] coronary artery without angina pectoris (7) CKD (chronic kidney disease) stage 3, GFR 30-59 ml/min Code(s): N18.3 - CHRONIC KIDNEY DISEASE, STAGE 3 (MODERATE) (8) COPD (chronic obstructive pulmonary disease) Code(s): J44.9 - CHRONIC OBSTRUCTIVE PULMONARY DISEASE, UNSPECIFIED (9) Hyperlipidemia Code(s): E78.5 - HYPERLIPIDEMIA, UNSPECIFIED Qualifiers: Hyperlipidemia type: pure hypercholesterolemia Qualified Code(s): E78.00 - Pure hypercholesterolemia, unspecified; E78.0 - Pure hypercholesterolemia (10) PVD (peripheral vascular disease) Code(s): I73.9 - PERIPHERAL VASCULAR DISEASE, UNSPECIFIED (11) Tobacco dependence Code(s): F17.200 - NICOTINE DEPENDENCE, UNSPECIFIED, UNCOMPLICATED (12) Acute congestive heart failure Code(s): I50.9 - HEART FAILURE, UNSPECIFIED Qualifiers: Qualified Code(s): I50.9 - Heart failure, unspecified (13) Pulmonary HTN Code(s): I27.20 - PULMONARY HYPERTENSION, UNSPECIFIED
[2017-07-24] MEDS: SPIRONOLACTONE 25 MG TABLET (FP) PO SCH (18:50)
--- NOTE | 2017-07-24 18:50 | CONS ---
DATE OF CONSULTATION: 07/24/2017 REFERRING PHYSICIAN: Shawn Lewis N.P. 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 Patient denies any complaints of chest pain, nausea, vomiting, diaphoresis on prior to admission. He denied diaphoresis. Patient denied any PND, did complain of orthopnea. Apparently recently he was told to reduce his Lasix dose secondary to low blood pressure. He is not fully compliant with diet. He has occasional salt. He denies any fevers, chills. Denies weight loss or night sweats. He has longstanding history of tobacco use approximately 1 pack a day and currently still smoking despite being advised on numerous occasions to stop. He complains of shortness of breath with minimal exertion. He also has history of achalasia and has frequent cough secondary to that. 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 Of note is on the history, it says history of lung CA; the patient does not have a history of lung cancer, as well as past medical history of BPH. REVIEW OF SYSTEMS: Positive orthopnea. Positive dyspnea. Positive cough. No chest pain. No palpitations. No fevers. No weight loss. No night sweats. No abdominal pain. No lower extremity edema. CURRENT MEDICATIONS: Include Symbicort, Flomax, Tylenol, Entresto, ceftriaxone, heparin, Lexapro, albuterol, Coreg, Crestor, Novolog, Levemir, Lasix, Aldactone, Plavix, and Dilantin. PHYSICAL EXAMINATION: General: The patient is a well-developed, well-nourished male, awake, alert, currently in no acute distress. Vital signs: He is currently afebrile. Blood pressure is 120/68, respiratory rate 20, O2 saturation is 95% on 2 L. HEENT: Head is normocephalic, atraumatic. Neck: Supple. Heart: Regular. S1, S2. Chest: Bibasilar crackles. Abdomen: Soft. Bowel sounds positive. Extremities: No cyanosis, edema. LABORATORY: WBC is 6.7, hemoglobin 10.5, hematocrit 31.6, platelet count of 166,000, INR is 1.10. Blood gas: pH 7.40, pCO2 of 31, pO2 of 81, bicarbonate of 19, and saturation 95.3 that is on 3 L nasal cannula. Chest x-ray, no acute infiltrates or effusions. Mild increased markings bilaterally. LABORATORY: BUN 49, creatinine 1.6, BNP is 8403. Echocardiogram revealed left ventricle mildly dilated, mild concentric left ventricular hypertrophy, left ventricular systolic function severely reduced with ejection fraction of 25% to 35% with severe global hypokinesia to left ventricle. Tricuspid valve is normal. There is mild tricuspid regurgitation. Pulmonary artery systolic pressure is 46 mmHg. IMPRESSION: 1. [id number] congestive heart failure. 2. Chronic obstructive pulmonary disease. 3. Chronic kidney disease. 4. Diabetes. 5. Tobacco abuse. 6. Pulmonary hypertension. 7. Atherosclerotic heart disease status post stent, status post coronary artery bypass graft. 8. Peripheral vascular disease status post percutaneous transluminal angioplasty. PLAN: Continue diuretics, supplemental O2, inhaled bronchodilators. prior to discharge to determine whether patient can have home O2. Smoking cessation counseled. Daily weights. LAURA DELVALLE M.D. [id number]
[2017-07-24] MEDS ORDERED: ROSUVASTATIN CA 10 MG TABLET (FP) ONE (21:51)
[2017-07-24] MEDS: ESCITALOPRAM OXALATE 20 MG TABLET (FP) PO SCH (22:11)
[2017-07-24] MEDS: ROSUVASTATIN CA 20 MG TABLET (FP) PO SCH (22:11)
[2017-07-24] MEDS: SACUBITRIL/VALSARTAN 24 MG-26 MG TABLET PO SCH (22:21)
--- NOTE | 2017-07-24 22:33 | PN ---
Physical Exam: SUBJECTIVE: Patient seen and examined at the bedside. Feels well, but still weak Not home oxygen dependent at home, wearing oxygen now States he cant sleep at nite, ambien, melatonin and benadryl not working States he sleeps during the day at home. Reports shortness of breath at rest/and worse with ambulation OBJECTIVE: Respiratory pre and post done by therapist: pt oxygen saturation at rest was 87% Will need home oxygen, SW aware Vital Signs Period Temp Pulse Resp BP Sys/Garcia Pulse Ox Last 24 Hr 97.4 F-98.2 F 83-96 20-20 118-148/62-76 90-97 GENERAL: The patient is awake, alert, and fully oriented, in no acute distress. HEAD: Normal with no signs of trauma. EYES: PERRL, extraocular movements intact, sclera anicteric, conjunctiva clear. No ptosis. ENT: Ears normal, nares patent, oropharynx clear without exudates, moist mucous membranes. NECK: Trachea midline, full range of motion, supple. LUNGS: Breath sounds equal, clear to auscultation bilaterally, no wheezes, no crackles, no accessory muscle use. HEART: Regular rate and rhythm, S1, S2 without murmur, rub or gallop. ABDOMEN: Soft, nontender, nondistended, normoactive bowel sounds, no guarding, no rebound, no hepatosplenomegaly, no masses. EXTREMITIES: 2+ pulses, warm, well-perfused, no edema. NEUROLOGICAL: Cranial nerves II through XII grossly intact. Normal speech, gait not observed. PSYCH: Normal mood, normal affect. SKIN: Warm, dry, normal turgor, no rashes or lesions noted Laboratory Results - last 24 hr 07/24/17 07/24/17 07/24/17 06:30 12:20 12:40 Sodium 135 L Potassium 4.6 Chloride 104 Carbon Dioxide 18 L Anion Gap 13 BUN 49 H Creatinine 1.6 H Creat Clearance w eGFR 42.35 POC Glucometer 178 215 Random Glucose 198 H D Calcium 8.8 Total Bilirubin 0.6 AST 14 L ALT 25 D Alkaline Phosphatase 71 Total Protein 6.6 Albumin 2.9 L 07/24/17 18:39 Sodium Potassium Chloride Carbon Dioxide Anion Gap BUN Creatinine Creat Clearance w eGFR POC Glucometer 269 Random Glucose Calcium Total Bilirubin AST ALT Alkaline Phosphatase Total Protein Albumin Active Medications Generic Name Dose Route Start Last Admin Trade Name Freq PRN Reason Stop Dose Admin Acetaminophen 650 mg 07/20/17 13:51 07/22/17 21:59 Tylenol - PO 650 mg Q4H PRN Administration PAIN LEVEL 4 - 6 Albuterol Sulfate 1 amp 07/19/17 22:53 07/24/17 11:22 Ventolin 0.083% Nebulizer Soln - NEB 1 amp Q6H PRN Administration WHEEZING Budesonide/Formoterol Fumarate 2 puff 07/19/17 22:00 07/24/17 22:19 Symbicort 160/4.5mcg - IH 2 puff BID [facility] Administration Carvedilol 3.125 mg 07/22/17 22:00 07/24/17 22:11 Coreg - PO 3.125 mg BID [facility] Administration Clopidogrel Bisulfate 75 mg 07/20/17 10:00 07/24/17 11:29 Plavix - PO 75 mg DAILY [facility] Administration Escitalopram Oxalate 20 mg 07/19/17 22:00 07/24/17 22:11 Lexapro - PO 20 mg HS [facility] Administration Furosemide 40 mg 07/25/17 10:00 Lasix Injection - IVPUSH DAILY [facility] Heparin Sodium (Porcine) 5,000 unit 07/19/17 16:00 07/24/17 22:12 Heparin - SQ 5,000 unit TID [facility] Administration Ceftriaxone Sodium 1 gm/ 50 mls @ 100 mls/hr 07/22/17 11:45 07/24/17 11:29 Dextrose IVPB 100 mls/hr DAILY [facility] Administration Insulin Aspart 1 vial 07/19/17 16:30 07/24/17 18:40 Novolog Vial Sliding Scale - SQ 6 units ACHS [facility] Administration Protocol Insulin Detemir 25 units 07/22/17 22:00 07/23/17 21:46 Levemir Vial SQ 25 units HS [facility] Administration Latanoprost 1 drop 07/19/17 22:00 07/22/17 22:22 Xalatan 0.005% Eye Drops - OU 1 drop HS [facility] Administration Rosuvastatin Calcium 20 mg 07/19/17 22:00 07/24/17 22:11 Crestor - PO 20 mg HS [facility] Administration Sacubitril/Valsartan 1 tab 07/24/17 22:00 07/24/17 22:21 Entresto 24 Mg-26 Mg Tablet PO 1 tab BID [facility] Administration Spironolactone 25 mg 07/22/17 18:00 07/24/17 18:50 Aldactone - PO 25 mg DAILY@1800 [facility] Administration Tamsulosin HCl 0.4 mg 07/20/17 08:30 07/24/17 11:36 Flomax - PO 0.4 mg 0830 [facility] Administration ASSESSMENT/PLAN: Patient is a 77 year old male with a past medical history of severe systolic heart failure, hypertension CAD s/p stenting (triple bypass about 10 years ago) , COPD, CKD, active smoker, PVD s/p angioplasty, IDDM, admitted with 2 weeks of shortness of breath and cough with whitish sputum. Cardiology: Acute on chronic systolic HF Severe LV systolic dysfunction BP improved, restarted on IV Lasix 40mg On Coreq 3.125mg BID Valsartan 80mg daily Plan for left and right cardiac cath as outpatient Patient will be discharged with home oxygen Cardiology following CAD s/p CABG, No asa secondary to hx of GI bleed, on Plavix PVD s/p angioplasty on Plavix Acute metabolic encephalopathy, resolved Likely due to sedating sleep meds Mental status now at baseline Elevated trop with a peak of 0.1 Cardiac cath outpatient Patient in agreement to follow up Hypertension, chronic Episodes of previous hypotension resolved UTI On Ceftriaxone dose 6 of 7 today Endocrine: Diabetes Mellitus NovologLoretta Renal: Chronic kidney disease Creat at pt baseline full code.
[2017-07-24] MEDS: INSULIN DETEMIR 100 UNITS/ML MDV SQ SCH (23:06)
[2017-07-25] MEDS: LATANOPROST 0.005% OPHTH SOLN 2.5ML BOTTLE OU SCH ×2 (00:13→00:16)
[2017-07-25] MEDS ORDERED: PT OWN MED DRAWER 7, Y5N ONE ×3 (03:12→10:45)
[2017-07-25] MEDS: HEPARIN NA (PORCINE) 5,000 UNITS/ML 1ML VIAL SQ SCH ×2 (06:16→14:33)
[2017-07-25] MEDS: INSULIN SLIDING SCALE (NOVOLOG) 1 VIAL SQ SCH ×2 (07:34→12:17)
[2017-07-25 08:17] LABS: BASO % 1.1 % (0-2.0); EOS % 0.8 % (0-4.5); HEMATOCRIT 32.3 % (35.4-49); HEMOGLOBIN 10.5 GM/dL (11.7-16.9); LYMPH % 11.9 % (8-40); MCH 25.8 pg (25.7-33.7); MCHC 32.6 g/dl (32.0-35.9); MEAN PLT VOLUME 8.6 fl (7.5-11.1); MONO % 7.1 % (3.8-10.2); NEUT % 79.1 % (42.8-82.8); PLATELET COUNT 160 K/MM3 (134-434); RBC 4.09 M/mm3 (4.00-5.60); RDW 19.5 % (11.9-15.9); WHITE BLOOD COUNT 7.4 K/mm3 (4.0-10.0)
[2017-07-25 08:21] LABS: CHLORIDE 107 mmol/L (98-107); POTASSIUM 4.3 mmol/L (3.5-5.1); SODIUM 139 mmol/L (136-145)
[2017-07-25 08:36] LABS: ALBUMIN 2.8 g/dl (3.4-5.0); ALK PHOS 70 U/L (45-117); ANION GAP 13 (8-16); BILIRUBIN,TOTAL 0.7 mg/dL (0.2-1.0); BLOOD UREA NITROGEN 46 mg/dL (7-18); CALCIUM 8.5 mg/dL (8.5-10.1); CO2 19 mmol/L (21-32); CREATININE 1.5 mg/dL (0.7-1.3); GLUCOSE,RANDOM 86 mg/dL (74-106); MAGNESIUM 2.4 mg/dL (1.8-2.4); SGOT/AST 19 U/L (15-37); SGPT/ALT 27 U/L (12-78); TOT PROT 6.4 g/dl (6.4-8.2)
[2017-07-25] MEDS ORDERED: FUROSEMIDE 40 MG/4 ML INJECTABLE VIAL IVPUSH SCH (10:00)
--- NOTE | 2017-07-25 10:02 | PN ---
Progress Note (short form) - Note Progress Note: Feels overall better. Qualified for home O2, saturation 87% post ambulation. Some residual cough. Intake & Output 07/22/17 07/23/17 07/24/17 07/25/17 23:59 23:59 23:59 23:59 Intake Total 1950 110 160 Output Total 1700 600 Balance 250 110 -440 Weight 182 lb 12.8 oz 181 lb 7 oz 183 lb 6.4 oz Last Vital Signs Temp Pulse Resp BP Pulse Ox 97.6 F 74 20 154/59 97 07/25/17 06:00 07/25/17 06:00 07/25/17 06:00 07/25/17 06:00 07/24/17 20:32 Active Medications Acetaminophen (Tylenol -) 650 mg PO Q4H PRN PRN Reason: PAIN LEVEL 4 - 6 Last Admin: 07/22/17 21:59 Dose: 650 mg Budesonide/Formoterol Fumarate (Symbicort 160/4.5mcg -) 2 puff IH BID [facility] Last Admin: 07/24/17 22:19 Dose: 2 puff Carvedilol (Coreg -) 3.125 mg PO BID [facility] Last Admin: 07/24/17 22:11 Dose: 3.125 mg Clopidogrel Bisulfate (Plavix -) 75 mg PO DAILY [facility] Last Admin: 07/24/17 11:29 Dose: 75 mg Escitalopram Oxalate (Lexapro -) 20 mg PO HS [facility] Last Admin: 07/24/17 22:11 Dose: 20 mg Furosemide (Lasix Injection -) 40 mg IVPUSH DAILY [facility] Heparin Sodium (Porcine) (Heparin -) 5,000 unit SQ TID [facility] Last Admin: 07/25/17 06:16 Dose: 5,000 unit Ceftriaxone Sodium 1 gm/ (Dextrose) 50 mls @ 100 mls/hr IVPB DAILY [facility] Last Admin: 07/24/17 11:29 Dose: 100 mls/hr Insulin Aspart (Novolog Vial Sliding Scale -) 1 vial SQ ACHS [facility] PRN Reason: Protocol Last Admin: 07/25/17 07:34 Dose: Not Given Insulin Detemir (Levemir Vial) 25 units SQ [facility] Last Admin: 07/24/17 23:06 Dose: 25 units Latanoprost (Xalatan 0.005% Eye Drops -) 1 drop OU HS [facility] Last Admin: 07/25/17 00:16 Dose: 1 drop Rosuvastatin Calcium (Crestor -) 20 mg PO [facility] Last Admin: 07/24/17 22:11 Dose: 20 mg Sacubitril/Valsartan (Entresto 24 Mg-26 Mg Tablet) 1 tab PO BID [facility] Last Admin: 07/24/17 22:21 Dose: 1 tab Spironolactone (Aldactone -) 25 mg PO DAILY@1800 [facility] Last Admin: 07/24/17 18:50 Dose: 25 mg Tamsulosin HCl (Flomax -) 0.4 mg PO 0830 [facility] Last Admin: 07/24/17 11:36 Dose: 0.4 mg GENERAL: The patient is awake, alert, and fully oriented, in no acute distress. HEAD: Normal with no signs of trauma. EYES: sclera anicteric, conjunctiva clear. No ptosis. ENT: Ears normal, nares patent, oropharynx clear without exudates, moist mucous membranes. NECK: Trachea midline, full range of motion, supple. LUNGS: Bibasilar rales/rhonchi, no wheezes HEART: Regular rate and rhythm, S1, S2 without murmur, rub or gallop. ABDOMEN: Soft, nontender, nondistended, normoactive bowel sounds, no guarding, no rebound, no hepatosplenomegaly, no masses. EXTREMITIES: 2+ pulses, warm, well-perfused, no edema. NEUROLOGICAL: Non-focal PSYCH: Normal mood, normal affect. SKIN: Warm, dry, normal turgor, no rashes or lesions noted Problem List - Problems (1) Dyspnea Code(s): R06.00 - DYSPNEA, UNSPECIFIED Qualifiers: Dyspnea type: shortness of breath Qualified Code(s): R06.02 - Shortness of breath; R06.00 - Dyspnea, unspecified; R06.01 - Orthopnea (2) History of percutaneous coronary intervention Code(s): Z98.890 - OTHER SPECIFIED POSTPROCEDURAL STATES (3) Hx of CABG Code(s): Z95.1 - PRESENCE OF AORTOCORONARY BYPASS GRAFT (4) Acute on chronic renal insufficiency Code(s): N28.9 - DISORDER OF KIDNEY AND URETER, UNSPECIFIED; N18.9 - CHRONIC KIDNEY DISEASE, UNSPECIFIED (5) Bladder wall thickening Code(s): N32.89 - OTHER SPECIFIED DISORDERS OF [place] (6) CAD (coronary artery disease) Code(s): I25.10 - ATHSCL HEART DISEASE OF [place] CORONARY ARTERY W/O ANG PCTRS Qualifiers: Coronary Disease-Associated Artery/Lesion type: [place] artery [place] vs. transplanted heart: [place] heart Associated angina: without angina Qualified Code(s): I25.10 - Atherosclerotic heart disease of [place] coronary artery without angina pectoris (7) CKD (chronic kidney disease) stage 3, GFR 30-59 ml/min Code(s): N18.3 - CHRONIC KIDNEY DISEASE, STAGE 3 (MODERATE) (8) COPD (chronic obstructive pulmonary disease) Code(s): J44.9 - CHRONIC OBSTRUCTIVE PULMONARY DISEASE, UNSPECIFIED (9) Hyperlipidemia Code(s): E78.5 - HYPERLIPIDEMIA, UNSPECIFIED Qualifiers: Hyperlipidemia type: pure hypercholesterolemia Qualified Code(s): E78.00 - Pure hypercholesterolemia, unspecified; E78.0 - Pure hypercholesterolemia (10) PVD (peripheral vascular disease) Code(s): I73.9 - PERIPHERAL VASCULAR DISEASE, UNSPECIFIED (11) Tobacco dependence Code(s): F17.200 - NICOTINE DEPENDENCE, UNSPECIFIED, UNCOMPLICATED (12) Acute congestive heart failure Code(s): I50.9 - HEART FAILURE, UNSPECIFIED Qualifiers: Qualified Code(s): I50.9 - Heart failure, unspecified (13) Pulmonary HTN Code(s): I27.20 - PULMONARY HYPERTENSION, UNSPECIFIED IMP ACUTE ON CHRONIC SYSTOLIC CHF ASHD S/P CABG,STENTS COPD PULMONARY HTN DM PVD S/P STENTS TOBACCO ABUSE PLAN LASIX O2 INHALED BRONCHODILATORS GLYCEMIC CONTROL SMOKING CESSATION COUNSELED PATIENT QUALIFIED FOR HOME O2: I COUNSELED HIM ABOUT THE EXTREME DANGER OF SMOKING WITH HOME O2 IN HIS HOUSE DR KEENE
[2017-07-25] MEDS ORDERED: cefTRIAXone SODIUM 1 GM VIAL ONE (10:06)
[2017-07-25] MEDS ORDERED: DEXTROSE 5%-WATER - 50 ML IVPB ONE (10:07)
[2017-07-25] MEDS: CLOPIDOGREL BISULFATE 75 MG TABLET (FP) PO SCH (10:15)
[2017-07-25] MEDS: CARVEDILOL 3.125 MG TABLET (FP) PO SCH (10:15)
[2017-07-25] MEDS: SACUBITRIL/VALSARTAN 24 MG-26 MG TABLET PO SCH (10:15)
[2017-07-25] MEDS: TAMSULOSIN HCL 0.4 MG CAP.ER.24H (FP) PO SCH (10:15)
[2017-07-25] MEDS: CEFTRIAXONE 1 GM in DEXTROSE 5%-WATER - 50 ML IVPB SCH (10:16)
[2017-07-25] MEDS: BUDESONIDE/FORMETEROL FUMARATE 160/4.5 mcg INHALER IH SCH (10:19)
--- NOTE | 2017-07-25 12:11 | PN ---
Progress Note, Physician History of Present Illness: Dyspnea with minimal exertion, ambulatory desaturation to 87% RA noted, denies chest pain. Hemodynamics improved. - Current Medication List Current Medications: Active Medications Acetaminophen (Tylenol -) 650 mg PO Q4H PRN PRN Reason: PAIN LEVEL 4 - 6 Last Admin: 07/22/17 21:59 Dose: 650 mg Budesonide/Formoterol Fumarate (Symbicort 160/4.5mcg -) 2 puff IH BID [facility] Last Admin: 07/25/17 10:19 Dose: 2 puff Carvedilol (Coreg -) 3.125 mg PO BID [facility] Last Admin: 07/25/17 10:15 Dose: 3.125 mg Clopidogrel Bisulfate (Plavix -) 75 mg PO DAILY [facility] Last Admin: 07/25/17 10:15 Dose: 75 mg Escitalopram Oxalate (Lexapro -) 20 mg PO HS [facility] Last Admin: 07/24/17 22:11 Dose: 20 mg Furosemide (Lasix Injection -) 40 mg IVPUSH DAILY [facility] Last Admin: 07/25/17 10:16 Dose: 40 mg Heparin Sodium (Porcine) (Heparin -) 5,000 unit SQ TID [facility] Last Admin: 07/25/17 06:16 Dose: 5,000 unit Ceftriaxone Sodium 1 gm/ (Dextrose) 50 mls @ 100 mls/hr IVPB DAILY [facility] Last Admin: 07/25/17 10:16 Dose: 100 mls/hr Insulin Aspart (Novolog Vial Sliding Scale -) 1 vial SQ ACHS [facility] PRN Reason: Protocol Last Admin: 07/25/17 07:34 Dose: Not Given Insulin Detemir (Levemir Vial) 25 units SQ [facility] Last Admin: 07/24/17 23:06 Dose: 25 units Latanoprost (Xalatan 0.005% Eye Drops -) 1 drop OU HS [facility] Last Admin: 07/25/17 00:16 Dose: 1 drop Rosuvastatin Calcium (Crestor -) 20 mg PO [facility] Last Admin: 07/24/17 22:11 Dose: 20 mg Sacubitril/Valsartan (Entresto 24 Mg-26 Mg Tablet) 1 tab PO BID [facility] Last Admin: 07/25/17 10:15 Dose: 1 tab Spironolactone (Aldactone -) 25 mg PO DAILY@1800 [facility] Last Admin: 07/24/17 18:50 Dose: 25 mg Tamsulosin HCl (Flomax -) 0.4 mg PO 0830 [facility] Last Admin: 07/25/17 10:15 Dose: 0.4 mg - Objective Vital Signs: Vital Signs Temperature 97.6 F 07/25/17 06:00 Pulse Rate 74 07/25/17 06:00 Respiratory Rate 20 07/25/17 06:00 Blood Pressure 154/59 07/25/17 06:00 O2 Sat by Pulse Oximetry (%) 97 07/24/17 20:32 Constitutional: Yes: No Distress, Calm Neck: Yes: Supple Cardiovascular: Yes: Regular Rate and Rhythm Respiratory: Yes: Regular, Diminished, On Nasal O2 Gastrointestinal: Yes: Normal Bowel Sounds, Soft Edema: No Labs: CBC, BMP 07/25/17 07:00 07/25/17 07:00 Problem List - Problems (1) Dyspnea Code(s): R06.00 - DYSPNEA, UNSPECIFIED Qualifiers: Dyspnea type: shortness of breath Qualified Code(s): R06.02 - Shortness of breath; R06.00 - Dyspnea, unspecified; R06.01 - Orthopnea (2) History of percutaneous coronary intervention Code(s): Z98.890 - OTHER SPECIFIED POSTPROCEDURAL STATES (3) Hx of CABG Code(s): Z95.1 - PRESENCE OF AORTOCORONARY BYPASS GRAFT (4) Acute on chronic renal insufficiency Code(s): N28.9 - DISORDER OF KIDNEY AND URETER, UNSPECIFIED; N18.9 - CHRONIC KIDNEY DISEASE, UNSPECIFIED (5) Anemia Code(s): D64.9 - ANEMIA, UNSPECIFIED Qualifiers: Anemia type: due to chronic kidney disease Chronic kidney disease stage: stage 3 (moderate) Qualified Code(s): N18.3 - Chronic kidney disease, stage 3 (moderate); D63.1 - Anemia in chronic kidney disease; D63.1 - Anemia in chronic kidney disease (6) CAD (coronary artery disease) Code(s): I25.10 - ATHSCL HEART DISEASE OF [place] CORONARY ARTERY W/O ANG PCTRS Qualifiers: Coronary Disease-Associated Artery/Lesion type: [place] artery [place] vs. transplanted heart: [place] heart Associated angina: without angina Qualified Code(s): I25.10 - Atherosclerotic heart disease of [place] coronary artery without angina pectoris (7) Hyperlipidemia Code(s): E78.5 - HYPERLIPIDEMIA, UNSPECIFIED Qualifiers: Hyperlipidemia type: pure hypercholesterolemia Qualified Code(s): E78.00 - Pure hypercholesterolemia, unspecified; E78.0 - Pure hypercholesterolemia (8) PVD (peripheral vascular disease) Code(s): I73.9 - PERIPHERAL VASCULAR DISEASE, UNSPECIFIED (9) Acute decompensated heart failure Code(s): I50.9 - HEART FAILURE, UNSPECIFIED Assessment/Plan 07/20/2017 Mildly dilated LV with severe decreased LVEF 25-30%, mild-mod decreased RV fxn, mild-mod MR, mod TR, RVSP 46 mmHg 1. Acute on chronic LV severe systolic failure resolving 2. CAD post PCI/stent, history of CABG 3. Hypertension 4. Hypercholesterolemia 5. Diabetes mellitus 6. PAD post [employer]OR [employer] 7. COPD, pulm HTN 8. Acute on CKD improved 9. Tobacco abuse PLAN: 1. Transthoracic echocardiography reviewed LVEF low at 25-30%. 2. Maintain Carvedilol 3.125 bid and Entresto 24/26 bid with uptitration as hemodynamics tolerate 3. Continue Plavix 75 qd and Rosuvastatin 20 qhs. 4. Resume oral diuresis, continue Spironolactone 25 qd as hemodynamics tolerate with monitor diuretic response, renal fxn and electrolytes 5. Further cardiac work up such as R&LHC and assess indication for ICD to be performed as outpatient 6. BD and O2 as needed, complete empiric abx course, smoking cessation, qualifies for home O2, d/c planning and f/u in cardiology office .
--- NOTE | 2017-07-25 12:33 | DS ---
Physical Examination Vital Signs: Vital Signs Temperature 97.6 F 07/25/17 06:00 Pulse Rate 74 07/25/17 06:00 Respiratory Rate 20 07/25/17 06:00 Blood Pressure 154/59 07/25/17 06:00 O2 Sat by Pulse Oximetry (%) 97 07/24/17 20:32 Labs: CBC, BMP 07/25/17 07:00 07/25/17 07:00 Discharge Summary Reason For Visit: DYSPNEA, ELEVATED TROPONIN LEVEL Current Active Problems Dyspnea (Acute) Elevated troponin (Acute) History of percutaneous coronary intervention (Acute) Hx of CABG (Acute) Pulmonary HTN (Acute) Hospital Course: Counselled patient on extreme danger of smoking cigarettes with home o2 in his house. The patient is aware. He is refusing nicotine patch Condition: Improved - Instructions Diet, Activity, Other Instructions: Please return to the ED with new, persistent, or worsening symptoms. Please follow-up with providers as indicated. As discussed, you are being discharged with home oxygen. You must NOT smoke with oxygen tanks in your house as it is extremely dangerous Novolog Insulin Sliding Scale: Check your blood sugar before every meal and at bedtime. Correlate your blood sugar with the amount of units you must give yourself: Blood sugar reading Novolog units Less than 150 0 151-200 2 201-250 4 251-300 6 301-350 8 351-400 10 Greater than 400 12 units and call your primary care provider Referrals: Jeremiah Ramírez MD [Staff Physician] - 1 Week Vikash Guerra MD [Primary Care Provider] - 1 Week Robert Strickland MD [Staff Physician] - (Please follow-up with cardiology within 2 -3 days for further workup of your severe heart failure to assess if there is an indication for ICD placement) Disposition: VNS/HOME HEALTH CARE - Home Medications Comprehensive Discharge Medication List: Ambulatory Orders Bimatoprost [Lumigan] 1 drop OU DAILY 12/24/16 Budesonide/Formeterol Fumarate [SYMBICORT 160/4.5mcg -] 2 inh PO BID 12/24/16 Clopidogrel Bisulfate [Plavix -] 75 mg PO DAILY 12/24/16 Escitalopram Oxalate [Lexapro -] 20 mg PO HS 12/24/16 Rosuvastatin Calcium [Crestor] 20 mg PO HS 12/24/16 Rosuvastatin Calcium [Crestor] 20 mg PO HS 03/11/18 Acetaminophen [Tylenol .Regular Strength -] 650 mg PO Q4H PRN tablet 07/25/17 Albuterol 0.083% Nebulizer Fatuma [Ventolin 0.083% Nebulizer Soln -] 1 amp NEB PRN #1 amp 07/25/17 Albuterol Sulfate Inhaler - [Ventolin HFA Inhaler -] 1 - 2 inh PO QID PRN #1 inhaler 07/25/17 Carvedilol [Coreg -] 3.125 mg PO BID #60 tablet 07/25/17 Furosemide [Lasix] 40 mg PO AM #60 tab 07/25/17 Insulin (Levemir) [Levemir Vial] 25 units SQ HS #10 ml 07/25/17 Sacubitril/Valsartan [Entresto 24 mg-26 mg Tablet] 1 tab PO BID #60 tablet 07/25 Spironolactone [Aldactone -] 25 mg PO DAILY@1800 #30 tablet 07/25/17 Tamsulosin HCl [Flomax -] 0.4 mg PO 0830 #30 cap.er.24h 07/25/17 - Discharge Referral Referred to [facility] No
[2017-07-25 14:45] VITALS: BP 140/78; PULSE 98; TEMP 98.2
== END 2017-07-25 17:30 | disposition home health service (06) | DRG 291 ==
LOC: JER 11:59 → JERBED 14:50 → J4W 17:45 → OBSVTOIN 07-21 08:18 → J8W 07-23 14:33
PROVIDERS: ADMIT Internal Medicine; ATTEND Registered Nurse
DX: I13.0 Hypertensive heart and chronic kidney disease with heart failure and stage 1 through stage 4 chronic kidney disease, or unspecified chronic kidney disease (principal); I50.23 Acute on chronic systolic (congestive) heart failure; G93.41 Metabolic encephalopathy; N39.0 Urinary tract infection, site not specified; N17.9 Acute kidney failure, unspecified; J44.9 Chronic obstructive pulmonary disease, unspecified; E78.5 Hyperlipidemia, unspecified; D64.9 Anemia, unspecified; K22.4 Dyskinesia of esophagus; K29.60 Other gastritis without bleeding; I25.10 Atherosclerotic heart disease of native coronary artery without angina pectoris; I25.2 Old myocardial infarction; R74.8 Abnormal levels of other serum enzymes; N40.0 Benign prostatic hyperplasia without lower urinary tract symptoms; N32.89 Other specified disorders of bladder; N18.9 Chronic kidney disease, unspecified; I27.20 Pulmonary hypertension, unspecified; Z85.118 Personal history of other malignant neoplasm of bronchus and lung; R06.00 Dyspnea, unspecified; M54.5 Low back pain; K59.00 Constipation, unspecified; F17.210 Nicotine dependence, cigarettes, uncomplicated; E11.51 Type 2 diabetes mellitus with diabetic peripheral angiopathy without gangrene; E11.22 Type 2 diabetes mellitus with diabetic chronic kidney disease; Z95.5 Presence of coronary angioplasty implant and graft
CPT/HCPCS: 36415; 36600; 71045-TC-FY; 80048; 80053; 80061; 81003; 81015; 82550; 82803; 82962; 83721; 83735; 83880; 84100; 84484; 85025; 85027; 87081; 87086; 93005; 93010; 93306-TC; 94640; 94761; 99283-25; G0378; J1644

== ENCOUNTER 2017-08-08 22:25 | Observation (INO) | payer OTHER, MEDICARE ==
[2017-08-08 22:31] VITALS: BMI 23.7
--- NOTE | 2017-08-08 22:45 | PDOC ---
History of Present Illness - General Chief Complaint: Chest Pain Stated Complaint: CHEST PAIN Time Seen by Provider: 08/08/17 22:44 - History of Present Illness Initial Comments: 77 year old male with PMH of CHF (systolic), HTN, CAD (CABG x3 10 + years ago and multiple stents around the same time), COPD, CKD, active smoker, PVD (s/p angioplasty), and IDDM presenting to the ED with 2 weeks of intermittent, non- exertional chest pain. States that he has had this sharp left sided, non- exertional, non-radiating, chest pain without exacerbating or relieving factors. He denies any fever, chills, diarrhea, nausea, vomiting, headache, dizziness, or other symptoms. 08/09/17 00:33 Past History - Past Medical History Allergies/Adverse Reactions: Allergies Allergy/AdvReac Type Severity Reaction Status Date / Time pregabalin [From Lyrica] Allergy Verified 08/08/17 22:29 Home Medications: Ambulatory Orders Bimatoprost [Lumigan] 1 drop OU DAILY 12/24/16 Budesonide/Formeterol Fumarate [SYMBICORT 160/4.5mcg -] 2 inh PO BID 12/24/16 Clopidogrel Bisulfate [Plavix -] 75 mg PO DAILY 12/24/16 Escitalopram Oxalate [Lexapro -] 2 mg PO HS 12/24/16 Rosuvastatin Calcium [Crestor] 20 mg PO HS 12/24/16 Rosuvastatin Calcium [Crestor] 20 mg PO HS 07/19/17 Acetaminophen [Tylenol .Regular Strength -] 650 mg PO Q4H PRN tablet 07/25/17 Albuterol 0.083% Nebulizer Fatuma [Ventolin 0.083% Nebulizer Soln -] 1 amp NEB PRN #1 amp 07/25/17 Albuterol Sulfate Inhaler - [Ventolin HFA Inhaler -] 1 - 2 inh PO QID PRN #1 inhaler 07/25/17 Carvedilol [Coreg -] 3.125 mg PO BID #60 tablet 07/25/17 Furosemide [Lasix] 40 mg PO AM #60 tab 07/25/17 Insulin (Levemir) [Levemir Vial] 25 units SQ HS #10 ml 07/25/17 Sacubitril/Valsartan [Entresto 24 mg-26 mg Tablet] 1 tab PO BID #60 tablet 07/25 Spironolactone [Aldactone -] 25 mg PO DAILY@1800 #30 tablet 07/25/17 Tamsulosin HCl [Flomax -] 0.4 mg PO 0830 #30 cap.er.24h 07/25/17 Venlafaxine HCl [Effexor -] 75 mg PO DAILY #30 tablet 07/25/17 Insulin Glargine,Hum.rec.anlog [Lantus] 50 unit SQ DAILY 08/08/17 Anemia: Yes Asthma: Yes Cancer: No (family h/o leukemia) Cardiac Disorders: Yes (4 stents) CVA: No COPD: Yes CHF: Yes Dementia: No Diabetes: Yes GI Disorders: Yes (ESOPHAGEAL DYSMOTILITY, GASTRITIS, H-PYLORI) Disorders: Yes (PROSTATE BX) HTN: Yes Hypercholesterolemia: Yes Kidney Stones: No Liver Disease: No Psychiatric Problems: No Seizures: No Thyroid Disease: No Lung CA: No - Surgical History Abdominal Surgery: Yes (PARTIAL GASTRECTOMY,H/O ULCERS EGD BIOPSY 2009,EGD H- PYLORI 2006,COLON 2003) Appendectomy: Yes Cardiac Surgery: Yes (cabg) Cholecystectomy: Yes Lung Surgery: No Neurologic Surgery: No Orthopedic Surgery: No - Family Disease History Family Disease History: Heart Disease: Father - Reproductive History Testicular Surgery: Yes - Immunization History Immunization Up to Date: Yes - Suicide/Smoking/Psychosocial Hx Smoking Status: Yes Smoking History: Former smoker Years of Tobacco Use: 50 Have you smoked in the past 12 months: Yes Number of Cigarettes Smoked Daily: 5 If you are a former smoker, when did you quit?: 2 weeks ago Information on smoking cessation initiated: No 'Breaking Loose' booklet given: 02/05/17 Hx Alcohol Use: No Drug/Substance Use Hx: No Substance Use Type: None Hx Substance Use Treatment: No Review of Systems - Review of Systems Constitutional: No: Chills, Diaphoresis, Fever HEENTM: No: Blurred Vision Respiratory: No: Cough, Shortness of Breath, Productive cough Cardiac (ROS): Yes: Chest Pain. No: Edema, Irregular Heart Rate ABD/GI: No: Diarrhea, Nausea, Vomiting : No: Burning, Dysuria, Discharge Musculoskeletal: No: Back Pain, Joint Pain Integumentary: No: Bruising, Lesions, Lumps Neurological: No: Headache, Numbness *Physical Exam - Vital Signs Last Vital Signs Temp Pulse Resp BP Pulse Ox 97.3 F L 66 20 119/53 99 08/08/17 22:29 08/08/17 22:29 08/08/17 22:29 08/08/17 22:29 08/08/17 22:29 - Physical Exam General Appearance: Yes: Nourished, Appropriately Dressed. No: Apparent Distress HEENT: positive: EOMI, FAVIOLA, Normal ENT Inspection, Normal Voice Neck: positive: Trachea midline, Normal Thyroid, Supple. negative: Tender, Rigid Respiratory/Chest: positive: Lungs Clear, Normal Breath Sounds. negative: Chest Tender, Respiratory Distress, Accessory Muscle Use Cardiovascular: positive: Regular Rhythm, Regular Rate Gastrointestinal/Abdominal: positive: Normal Bowel Sounds, Flat, Soft. negative : Tender Musculoskeletal: positive: Normal Inspection. negative: Muscle Spasm Extremity: positive: Normal Capillary Refill, Normal Inspection, Normal Range of Motion. negative: Tender Integumentary: positive: Normal Color, Dry, Warm Neurologic: positive: Fully Oriented, Alert, Normal Mood/Affect, Normal Response ED Treatment Course - LABORATORY CBC & Chemistry Diagram: 08/08/17 23:00 08/08/17 23:00 Medical Decision Making - Medical Decision Making 77 year old male presenting with high risk chest pain and EKG changes V2 and V3 ST wave changes but negative Troponins. Spoke to Dr. Crow and relayed EKG images to him. He felt that the EKG changes were non-specific and likely J point elevations as there were some similar appearing changes in previous EKGs. Patient signed out to medical team for cardiac workup. CaGluconate, insulin 5 and 500 NS given for elevated K of 5.7 without obvious T wave changes. 08/09/17 01:32 *DC/Admit/Observation/Transfer Diagnosis at time of Disposition: Chest pain Qualifiers: Chest pain type: unspecified Qualified Code(s): R07.9 - Chest pain, unspecified - Discharge Dispostion Admit: Yes - Referrals Referrals: Vikash Guerra MD [Primary Care Provider] - - Patient Instructions - Post Discharge Activity
--- NOTE | 2017-08-08 22:55 | PDOC ---
Attending Attestation - Resident Resident Name: Ronald Jones - ED Attending Attestation I have performed the following: I have examined & evaluated the patient, The case was reviewed & discussed with the resident, I agree w/resident's findings & plan, Exceptions are as noted - HPI HPI: 08/08/17 22:55 77 year old male with PMHx of severe systolic CHF, HTN, CAD s/p stenting ( triple bypass about 10 years ago), COPD, CKD, active smoker, PVD s/p angioplasty , IDDM presents emergency Department with 2 days of progressive left sided nonradiating sharp chest pain. Reports pain is present at rest and with exertion. Pain is not positional. No associated shortness of breath. Pain is not pleuritic. Denies associated dizziness, diaphoresis, nausea, vomiting. Denies fevers, chills, abdominal pain, weakness/numbness. - Physicial Exam PE: 08/09/17 00:01 GENERAL: Awake, alert, and fully oriented, in no acute distress HEAD: No signs of trauma EYES: PERRLA, EOMI, sclera anicteric, conjunctiva clear ENT: Auricles normal inspection, hearing grossly normal, nares patent, oropharynx clear without exudates. Moist mucosa. 2L NC in place. NECK: Normal ROM, supple, no lymphadenopathy, JVD, or masses LUNGS: Breath sounds equal, clear to auscultation bilaterally. No wheezes, and no crackles HEART: Regular rate and rhythm, normal S1 and S2, no murmurs, rubs or gallops ABDOMEN: Soft, nontender, normoactive bowel sounds. No guarding, no rebound. No masses EXTREMITIES: Normal range of motion, no edema. No clubbing or cyanosis. No cords, erythema, or tenderness NEUROLOGICAL: Normal speech, cranial nerves intact, negative pronator drift, 5/ 5 strength in all 4 extremities, normal sensation to light touch in all 4 extremities, normal cerebellar exam, normal gait, normal reflexes and tone SKIN: Warm, Dry, normal turgor, no rashes or lesions noted. - Medical Decision Making 08/09/17 00:01 77-year-old male with multiple medical problems including cardiac bypass presents to the emergency department with 2 days of progressive chest pain. Vitals unremarkable. EKG with J-point elevations in V2, V3 with no reciprocal ST depressions that is unchanged from an EKG last month while the patient was admitted here. EKG reviewed with Dr. Rosenthal (covering for Dr. Strickland) who agrees that CELSO are j-point. Differential includes ACS. Unlikely PE as patient has normal vitals, is not short of breath and pain is not pleuritic. Differential also includes pneumonia. Unlikely COPD exacerbation as lungs are clear. Given significant risk factors, will give ASA 325 (pt already on plavix) . Will admit for cardiac monitoring and workup. 08/09/17 01:11 Case discussed in detail with admitting physician including history, physical exam and ancillary studies. Admitting physician has assumed care for the patient, will follow all pending diagnostics and will complete the evaluation and treatment.
[2017-08-08 23:24] LABS: BASO % 1.3 % (0-2.0); EOS % 1.9 % (0-4.5); HEMATOCRIT 36.9 % (35.4-49); HEMOGLOBIN 12.4 GM/dL (11.7-16.9); LYMPH % 16.4 % (8-40); MCH 26.1 pg (25.7-33.7); MCHC 33.5 g/dl (32.0-35.9); MEAN CELL VOLUME 77.9 fl (80-96); MEAN PLT VOLUME 8.2 fl (7.5-11.1); MONO % 5.5 % (3.8-10.2); NEUT % 74.9 % (42.8-82.8); PLATELET COUNT 189 K/MM3 (134-434); RBC 4.74 M/mm3 (4.00-5.60); RDW 19.2 % (11.9-15.9); WHITE BLOOD COUNT 5.2 K/mm3 (4.0-10.0)
[2017-08-08 23:25] LABS: INR 1.04 (0.82-1.09); PROTHROMBIN TIME (PATIENT) 11.7 SEC (9.98-11.88)
[2017-08-09 00:03] LABS: ALBUMIN 3.8 g/dl (3.4-5.0); ANION GAP 5 (8-16); BILIRUBIN,TOTAL 0.4 mg/dL (0.2-1.0); CALCIUM 8.5 mg/dL (8.5-10.1); CHLORIDE 112 mmol/L (98-107); CO2 21 mmol/L (21-32); CREATININE 1.9 mg/dL (0.7-1.3); GLUCOSE,RANDOM 246 mg/dL (74-106); LIPASE 298 U/L (73-393); POTASSIUM 5.7 mmol/L (3.5-5.1); SGOT/AST 41 U/L (15-37); SGPT/ALT 64 U/L (12-78); SODIUM 138 mmol/L (136-145); TOT PROT 7.1 g/dl (6.4-8.2)
[2017-08-09 00:06] LABS: ALK PHOS 87 U/L (45-117); BLOOD UREA NITROGEN 65 mg/dL (7-18)
[2017-08-09] MEDS ORDERED: ASPIRIN 81 MG CHEWABLE TABLETS PO ONE (00:07)
[2017-08-09] MEDS ORDERED: ASPIRIN 325 MG TABLET ONE (00:20)
[2017-08-09] MEDS ORDERED: CALCIUM GLUCONATE 10% - 1,000 MG/10 ML VIAL IVPB ONE ×2 (01:09→22:44)
[2017-08-09] MEDS ORDERED: INSULIN REGULAR HUMAN 100 UNITS/ML *VIAL IVPUSH ONE (01:10)
[2017-08-09] MEDS ORDERED: SODIUM CHLORIDE 0.9% 500 ML INFUS.BAG IV ONE (01:11)
[2017-08-09] MEDS ORDERED: CALCIUM CHLORIDE 1 GM/10 ML *DISP.SYRIN ONE (01:20)
[2017-08-09] MEDS ORDERED: INSULIN REGULAR HUMAN 100 UNITS/ML *VIAL ONE (01:21)
--- NOTE | 2017-08-09 02:30 | HP ---
CHIEF COMPLAINT: chest pain PCP: Dr. Guerra; Cardio: Dr. Morales HISTORY OF PRESENT ILLNESS: 77 y/o M w/PMH of systolic CHF, HTN, CAD (s/p CABG and 4 stents ~10 years ago), PVD (s/p b/l angioplasty), DM, COPD (on home O2 2L) presents to the ER with chest pain. Pain started 1 week ago and was there on and off for 1 day. Pain returned two days ago and was similar as initial episode. Pain is on L side of chest wall, sharp, 6/10, lasts for seconds, no radiation, no aggravating or alleviating factors. Pt also states that it was reproducible over the last 2 days, worse with coughing, worse with deep breaths. Pt has a chronic cough with white sputum production but sputum has been somewhat darker recently. He also reports some recent dizziness but admits that he has not been drinking much water. Pt denies any SOB, N/V/F/C, dysuria, hematuria, change in bowel movements , blood in stool, LE swelling, sick contacts, recent travel. Pt reports that he has been exercising since last discharge (07/25/17, admitted for CHF exacerbation) and has quit smoking since then. Pt was started on home O2 at 2L since then and has been using it everyday. ER course was notable for: (1) EKG, CXR, CaCl, Insulin (2) (3) Recent Travel: denies PAST MEDICAL HISTORY:systolic CHF, HTN, CAD (s/p CABG and 4 stents ~10 years ago ), PVD (s/p b/l angioplasty), DM, COPD (on home O2 2L) PAST SURGICAL HISTORY: CABG + 4 stents approx 10 years ago. b/l LE angioplasty approx 8 years ago. appendectomy. cholecystectomy. Social History: Smoking: Former smoker, quit 2 weeks ago. Smoked for 50+ years (1ppd) Alcohol: denies Drugs: denies Family History: Father with heart disease. Mother and brother passed from leukemia. Allergies pregabalin [From Lyrica] Allergy (Verified 08/08/17 22:29) HOME MEDICATIONS: Home Medications Medication Instructions Recorded Bimatoprost [Lumigan] 1 drop OU DAILY 12/24/16 Budesonide/Formeterol Fumarate 2 inh PO BID 12/24/16 [SYMBICORT 160/4.5mcg -] Clopidogrel Bisulfate [Plavix -] 75 mg PO DAILY 12/24/16 Escitalopram Oxalate [Lexapro -] 2 mg PO HS 12/24/16 Rosuvastatin Calcium [Crestor] 20 mg PO HS 12/24/16 Rosuvastatin Calcium [Crestor] 20 mg PO HS 07/19/17 Acetaminophen [Tylenol .Regular 650 mg PO Q4H PRN tablet 07/25/17 Strength -] Albuterol 0.083% Nebulizer Fatuma 1 amp NEB PRN #1 amp 07/25/17 [Ventolin 0.083% Nebulizer Soln -] Albuterol Sulfate Inhaler - 1 - 2 inh PO QID PRN #1 inhaler 07/25/17 [Ventolin HFA Inhaler -] Carvedilol [Coreg -] 3.125 mg PO BID #60 tablet 07/25/17 Furosemide [Lasix] 40 mg PO AM #60 tab 07/25/17 Insulin (Levemir) [Levemir Vial] 25 units SQ HS #10 ml 07/25/17 Sacubitril/Valsartan [Entresto 24 1 tab PO BID #60 tablet 07/25/17 mg-26 mg Tablet] Spironolactone [Aldactone -] 25 mg PO DAILY@1800 #30 tablet 07/25/17 Tamsulosin HCl [Flomax -] 0.4 mg PO 0830 #30 cap.er.24h 07/25/17 Venlafaxine HCl [Effexor -] 75 mg PO DAILY #30 tablet 07/25/17 Insulin Glargine,Hum.rec.anlog 50 unit SQ DAILY 08/08/17 [Lantus] REVIEW OF SYSTEMS CONSTITUTIONAL: Absent: fever, chills CARDIOVASCULAR: +Chest pain Absent: chest pain, peripheral edema RESPIRATORY: +chronic cough Absent: shortness of breath, dyspnea with exertion GASTROINTESTINAL: Absent: abdominal pain, nausea, vomiting, diarrhea, constipation, hematochezia GENITOURINARY: Absent: dysuria, frequency NEUROLOGIC: +dizziness PHYSICAL EXAMINATION Vital Signs - 24 hr 08/08/17 22:29 Temperature 97.3 F L Pulse Rate 66 Respiratory 20 Rate Blood Pressure 119/53 O2 Sat by Pulse 99 Oximetry (%) GENERAL: Awake, alert, and fully oriented, in no acute distress. EYES: extraocular movements intact, sclera anicteric, conjunctiva clear. EARS, NOSE, THROAT: Ears normal, nares patent NECK: Normal range of motion, supple LUNGS: Breath sounds equal, clear to auscultation bilaterally. No wheezes, and no crackles. No accessory muscle use. HEART: Regular rate and rhythm, normal S1 and S2 without murmur ABDOMEN: Soft, nontender, not distended, normoactive bowel sounds MUSCULOSKELETAL: No CVA tenderness. LOWER EXTREMITIES:warm, well-perfused. No peripheral edema. NEUROLOGICAL: Normal speech. Gait not observed. PSYCHIATRIC: Cooperative. Good eye contact. Appropriate mood and affect. SKIN: Warm, dry Laboratory Results - last 24 hr 08/08/17 08/08/17 08/08/17 23:00 23:00 23:00 WBC 5.2 RBC 4.74 Hgb 12.4 D Hct 36.9 MCV 77.9 L MCH 26.1 MCHC 33.5 RDW 19.2 H Plt Count 189 MPV 8.2 Neutrophils % 74.9 Lymphocytes % 16.4 D Monocytes % 5.5 Eosinophils % 1.9 D Basophils % 1.3 PT with INR INR PTT (Actin FS) 33.6 Sodium 138 Potassium 5.7 H D Chloride 112 H Carbon Dioxide 21 Anion Gap 5 L BUN 65 H D Creatinine 1.9 H D Creat Clearance w eGFR 34.73 Random Glucose 246 H D Calcium 8.5 Magnesium Total Bilirubin 0.4 D AST 41 H D ALT 64 D Alkaline Phosphatase 87 D Troponin I B-Natriuretic Peptide Total Protein 7.1 Albumin 3.8 D Lipase Blood Type Antibody Screen 08/08/17 08/08/17 08/08/17 23:00 23:00 23:00 WBC RBC Hgb Hct MCV MCH MCHC RDW Plt Count MPV Neutrophils % Lymphocytes % Monocytes % Eosinophils % Basophils % PT with INR 11.70 INR 1.04 PTT (Actin FS) Sodium Potassium Chloride Carbon Dioxide Anion Gap BUN Creatinine Creat Clearance w eGFR Random Glucose Calcium Magnesium Total Bilirubin AST ALT Alkaline Phosphatase Troponin I B-Natriuretic Peptide 1974.03 H Total Protein Albumin Lipase Blood Type A POSITIVE Antibody Screen Negative 08/08/17 23:00 WBC RBC Hgb Hct MCV MCH MCHC RDW Plt Count MPV Neutrophils % Lymphocytes % Monocytes % Eosinophils % Basophils % PT with INR INR PTT (Actin FS) Sodium Potassium Chloride Carbon Dioxide Anion Gap BUN Creatinine Creat Clearance w eGFR Random Glucose Calcium Magnesium 2.0 Total Bilirubin AST ALT Alkaline Phosphatase Troponin I < 0.02 D B-Natriuretic Peptide Total Protein Albumin Lipase 298 Blood Type Antibody Screen Imaging: CXR: pending official read. no congestive changes or infiltrates noted. EKG: SR w/1st degree AV block. J point elevations at V2 and V3. Rate: 62 bpm. QTc 493. Unchanged from previous EKG 07/22/17 Active Medications Acetaminophen (Tylenol -) 650 mg PO Q6H PRN PRN Reason: PAIN Aspirin (Ecotrin -) 81 mg PO DAILY [facility] Budesonide/Formoterol Fumarate (Symbicort 160/4.5mcg -) 2 puff IH BID [facility] Carvedilol (Coreg -) 3.125 mg PO BID [facility] Clopidogrel Bisulfate (Plavix -) 75 mg PO DAILY [facility] Escitalopram Oxalate (Lexapro -) 20 mg PO HS [facility] Furosemide (Lasix -) 40 mg PO DAILY [facility] Heparin Sodium (Porcine) (Heparin -) 5,000 unit SQ TID [facility] Insulin Aspart (Novolog Vial Sliding Scale -) 1 vial SQ ACHS [facility] PRN Reason: Protocol Insulin Detemir (Levemir Vial) 25 units SQ HS [facility] Rosuvastatin Calcium (Crestor -) 20 mg PO HS [facility] Sacubitril/Valsartan (Entresto 24 Mg-26 Mg Tablet) 1 tab PO BID [facility] Spironolactone (Aldactone -) 25 mg PO DAILY@1800 [facility] Tamsulosin HCl (Flomax -) 0.4 mg PO 0830 [facility] ASSESSMENT/PLAN: 77 y/o M w/PMH of systolic CHF, HTN, CAD (s/p CABG and 4 stents ~10 years ago), PVD (s/p b/l angioplasty), DM, COPD (on home O2 2L) presents to the ER with chest pain. Obs to r/o ACS -Chest pain -r/o ACS -trend trops, initial trop negative -given ASA 325 in ER, c/w 81 mg asa daily -c/w home plavix -check TSH -pain control with tylenol 650 mg po q6h prn -O2 supplementation to keep O2 saturation >88% -Echo 07/20/17: 29.9% EF LV systolic function severely reduced. -Hyperkalemia -given 5 units insulin in ER, Ca gluconate 1g -will give alb neb x1 now -monitor K+ -systolic CHF -Echo 07/20/17: 29.9% EF LV systolic function severely reduced. -not currently fluid overloaded -c/w lasix 40 mg po qd -c/w carvedilol 3.125 mg po bid -c/w spironolactone 25 mg po qd -CAD -c/w plavix, crestor 20 mg -HTN -c/w carvedilol 3.125 mg po bid, entresto 24-26 -CKD -Cr 1.9 (last Cr on discharge was 1.5), monitor, increase PO intake of water , will hold lasix for now, reassess tomorrow to see if kidney function improves -DM -Levemir 25 units qhs -ISS, BGMs ACHS -Depression -c/w lexapro 20 mg -BPH -c/w flomax -DVT ppx -Heparin 5000 units sq q8h -FEN -no fluids -hyperkalemia as noted above -Cardiac diet -Dispo: tele/obs Visit type - Emergency Visit Emergency Visit: Yes ED Registration Date: 08/09/17 Care time: The patient presented to the Emergency Department on the above date and was hospitalized for further evaluation of their emergent condition. - New Patient This patient is new to me today: Yes Date on this admission: 08/09/17 - Critical Care Critical Care patient: No Hospitalist Screening - Colonoscopy Questionnaire Colonoscopy Questionnaire: Colonoscopy Questionnaire - Patient: 50 - 75 years old and never had a screening colonoscopy: Unknown History of colon or rectal polyps, or CA: Unknown History of IBD, Crohn's disease or UC: Unknown History of abdominal radiation therapy as a child: Unknown - Relative: 1 with colon or rectal CA, or polyps at age 60 or younger: Unknown Colon or rectal CA diagnosed at age 45 or younger: Unknown Multiple relatives with colon or rectal CA: Unknown - Outcome: Screening Result: Negative Screen
[2017-08-09] MEDS ORDERED: diphenhydrAMINE HCL 25 MG CAPSULE (FP) PO ONE ×3 (02:32→21:30)
[2017-08-09] MEDS ORDERED: ACETAMINOPHEN 325 MG TABLET (FP) PO PRN (02:39)
[2017-08-09] MEDS ORDERED: ALBUTEROL SO4 0.083% IH SOL 2.5 MG/3 ML VIAL.NEB. NEB ONE ×2 (02:39→02:54)
[2017-08-09] MEDS ORDERED: HEPARIN NA (PORCINE) 5,000 UNITS/ML 1ML VIAL ONE (05:43)
[2017-08-09] MEDS: INSULIN SLIDING SCALE (NOVOLOG) 1 VIAL SQ SCH ×5 (06:22→21:38)
[2017-08-09] MEDS: HEPARIN NA (PORCINE) 5,000 UNITS/ML 1ML VIAL SQ SCH ×3 (06:22→21:38)
--- NOTE | 2017-08-09 06:54 | PN ---
Teaching Attending Note Name of Resident: Shahram Moreira ATTENDING PHYSICIAN STATEMENT I saw and evaluated the patient. Chart, data, imaging reviewed. I reviewed the resident's note and discussed the case with the resident. I agree with the resident's findings and plan as documented. SUBJECTIVE: 77 y/o M w/PMH of systolic CHF with systolic dysfunction, HTN, CAD (s/p CABG and 4 stents ~10 years ago), PVD (s/p b/l angioplasty), DM, COPD (on home O2 2L ) c/o chest pain for the past 2-3 days which comes and goes. Sometimes worse with exertion. Sometimes occurs at rest. Chest pain responds to nitroglycerin. He reports compliance with his medications. OBJECTIVE: Last Vital Signs Temp Pulse Resp BP Pulse Ox 97.3 F L 66 20 119/53 99 08/08/17 22:29 08/08/17 22:29 08/08/17 22:29 08/08/17 22:29 08/08/17 22:29 General- NAD, appears comfortable HEENT- atraumatic, moist oral mucosa Neck- no JVD CV-soft heart sounds CHest- anterior chest wall scar, b/l breath sounds, no wheezing appreciated, chest pain not reproducible on my exam abdomen- soft, nontender, BS+ Ext- no pedal edema appreciated Skin - no rashes appreciated Abnormal Lab Results 08/08/17 08/08/17 08/08/17 23:00 23:00 23:00 MCV 77.9 L RDW 19.2 H Potassium 5.7 H D Chloride 112 H Anion Gap 5 L BUN 65 H D Creatinine 1.9 H D Random Glucose 246 H D AST 41 H D B-Natriuretic Peptide 1974.03 H EKG- unchanged from old one, q, NSR, Q waves in anterior wall leads ASSESSMENT AND PLAN: 77yo man with CAD, CHF w/ systolic dysunction, with chest pain x2 with improvement after sublingual nitroglycerin use. Strongly suggestive of pain of cardiac origin. Troponin negative x1 and EKG on this admission is unchanged from last one. I do not suspect CHF exacerbation at this time due to lack of clinical evidence such as pedal edema, jvd, and low BNP comapred to old one. EKG reviewed with Dr. Rosenthal in ER, decision was made not to send to cardiac catheterization from ER. -admit to tele observation -trend troponin -ASA -bblocker -entresta (home medication) -nitroglycerin sublingual prn if angina -cardiac evaluation for possible early cardiac catheterization -CXR -repeat EKG -restart regular home medications #heparin for DVT ppx
[2017-08-09 07:30] LABS: HEMATOCRIT 37.2 % (35.4-49); HEMOGLOBIN 11.9 GM/dL (11.7-16.9); MCH 25.1 pg (25.7-33.7); MEAN CELL VOLUME 78.4 fl (80-96); MEAN PLT VOLUME 7.9 fl (7.5-11.1); PLATELET COUNT 181 K/MM3 (134-434); RBC 4.74 M/mm3 (4.00-5.60); RDW 19.1 % (11.9-15.9); WHITE BLOOD COUNT 6.3 K/mm3 (4.0-10.0)
[2017-08-09 07:53] LABS: ALBUMIN 3.5 g/dl (3.4-5.0); ANION GAP 5 (8-16); BLOOD UREA NITROGEN 60 mg/dL (7-18); CALCIUM 9.1 mg/dL (8.5-10.1); CHLORIDE 117 mmol/L (98-107); CO2 17 mmol/L (21-32); POTASSIUM 5.1 mmol/L (3.5-5.1); SODIUM 139 mmol/L (136-145)
[2017-08-09 07:59] LABS: ALK PHOS 76 U/L (45-117); BILIRUBIN,TOTAL 0.2 mg/dL (0.2-1.0); CREATININE 1.7 mg/dL (0.7-1.3); GLUCOSE,RANDOM 122 mg/dL (74-106); SGOT/AST 31 U/L (15-37); SGPT/ALT 58 U/L (12-78); TOT PROT 6.9 g/dl (6.4-8.2)
--- NOTE | 2017-08-09 09:03 | PN ---
Teaching Attending Note Name of Resident: Shahram Moreira SUBJECTIVE: Patient seen and examined. no chest pain, dyspnea or new complaints. OBJECTIVE: Vital Signs Period Temp Pulse Resp BP Sys/Garcia Pulse Ox Last 24 Hr 97.3 F 62-66 18-20 115-119/50-53 96-99 Intake & Output 08/06/17 08/07/17 08/08/17 08/09/17 23:59 23:59 23:59 23:59 Weight 170 lb General sitting in bed in no acute distress CVS S1S2 regular Chest CTAB, no rales or wheezing Abdomen soft, NT, ND Extremities no edema Neck supple, no JVD Home Medication List Medication Instructions Recorded Confirmed Type Bimatoprost [Lumigan] 1 drop OU DAILY 12/24/16 08/08/17 History Budesonide/Formeterol Fumarate 2 inh PO BID 12/24/16 08/08/17 History [SYMBICORT 160/4.5mcg -] Clopidogrel Bisulfate [Plavix -] 75 mg PO DAILY 12/24/16 08/08/17 History Escitalopram Oxalate [Lexapro -] 2 mg PO HS 12/24/16 08/08/17 History Rosuvastatin Calcium [Crestor] 20 mg PO HS 12/24/16 08/08/17 History Rosuvastatin Calcium [Crestor] 20 mg PO HS 07/19/17 08/08/17 History Insulin Glargine,Hum.rec.anlog 50 unit SQ DAILY 08/08/17 08/08/17 History [Lantus] Active Medications Generic Name Dose Route Start Last Admin Trade Name Freq PRN Reason Stop Dose Admin Acetaminophen 650 mg 08/09/17 02:39 Tylenol - PO Q6H PRN PAIN Aspirin 81 mg 08/09/17 10:00 Ecotrin - PO DAILY [facility] Budesonide/Formoterol Fumarate 2 puff 08/09/17 10:00 Symbicort 160/4.5mcg - IH BID [facility] Carvedilol 3.125 mg 08/09/17 10:00 Coreg - PO BID [facility] Clopidogrel Bisulfate 75 mg 08/09/17 10:00 Plavix - PO DAILY [facility] Escitalopram Oxalate 20 mg 08/09/17 22:00 Lexapro - PO HS [facility] Furosemide 40 mg 08/09/17 10:00 Lasix - PO DAILY [facility] Heparin Sodium (Porcine) 5,000 unit 08/09/17 06:00 08/09/17 06:22 Heparin - SQ 5,000 unit TID [facility] Administration Insulin Aspart 1 vial 08/09/17 07:00 08/09/17 06:22 Novolog Vial Sliding Scale - SQ 2 units ACHS [facility] Administration Protocol Insulin Detemir 25 units 08/09/17 22:00 Levemir Vial SQ HS [facility] Rosuvastatin Calcium 20 mg 08/09/17 22:00 Crestor - PO HS [facility] Sacubitril/Valsartan 1 tab 08/09/17 10:00 Entresto 24 Mg-26 Mg Tablet PO BID [facility] Tamsulosin HCl 0.4 mg 08/09/17 08:30 Flomax - PO 0830 [facility] Laboratory Results - last 24 hr 08/08/17 08/08/17 08/08/17 23:00 23:00 23:00 WBC 5.2 RBC 4.74 Hgb 12.4 D Hct 36.9 MCV 77.9 L MCH 26.1 MCHC 33.5 RDW 19.2 H Plt Count 189 MPV 8.2 Neutrophils % 74.9 Lymphocytes % 16.4 D Monocytes % 5.5 Eosinophils % 1.9 D Basophils % 1.3 PT with INR INR PTT (Actin FS) 33.6 Sodium 138 Potassium 5.7 H D Chloride 112 H Carbon Dioxide 21 Anion Gap 5 L BUN 65 H D Creatinine 1.9 H D Creat Clearance w eGFR 34.73 POC Glucometer Random Glucose 246 H D Calcium 8.5 Magnesium Total Bilirubin 0.4 D AST 41 H D ALT 64 D Alkaline Phosphatase 87 D Creatine Kinase Troponin I B-Natriuretic Peptide Total Protein 7.1 Albumin 3.8 D Lipase Blood Type Antibody Screen 08/08/17 08/08/17 08/08/17 23:00 23:00 23:00 WBC RBC Hgb Hct MCV MCH MCHC RDW Plt Count MPV Neutrophils % Lymphocytes % Monocytes % Eosinophils % Basophils % PT with INR 11.70 INR 1.04 PTT (Actin FS) Sodium Potassium Chloride Carbon Dioxide Anion Gap BUN Creatinine Creat Clearance w eGFR POC Glucometer Random Glucose Calcium Magnesium Total Bilirubin AST ALT Alkaline Phosphatase Creatine Kinase Troponin I B-Natriuretic Peptide 1974.03 H Total Protein Albumin Lipase Blood Type A POSITIVE Antibody Screen Negative 08/08/17 08/09/17 08/09/17 23:00 06:35 06:35 WBC 6.3 RBC 4.74 Hgb 11.9 Hct 37.2 MCV 78.4 L MCH 25.1 L MCHC 32.0 RDW 19.1 H Plt Count 181 MPV 7.9 Neutrophils % Lymphocytes % Monocytes % Eosinophils % Basophils % PT with INR INR PTT (Actin FS) Sodium 139 Potassium 5.1 Chloride 117 H Carbon Dioxide 17 L Anion Gap 5 L BUN 60 H Creatinine 1.7 H Creat Clearance w eGFR 39.49 POC Glucometer Random Glucose 122 H D Calcium 9.1 Magnesium 2.0 Total Bilirubin 0.2 D AST 31 D ALT 58 Alkaline Phosphatase 76 Creatine Kinase 29 L Troponin I < 0.02 D 0.02 B-Natriuretic Peptide Total Protein 6.9 Albumin 3.5 Lipase 298 Blood Type Antibody Screen 08/09/17 08/09/17 08/09/17 06:35 11:15 11:15 WBC RBC Hgb Hct MCV MCH MCHC RDW Plt Count MPV Neutrophils % Lymphocytes % Monocytes % Eosinophils % Basophils % PT with INR INR PTT (Actin FS) Sodium 139 Potassium 5.6 H Chloride 115 H Carbon Dioxide 17 L Anion Gap 7 L BUN 58 H Creatinine 1.7 H Creat Clearance w eGFR POC Glucometer Random Glucose 172 H D Calcium 8.9 Magnesium Total Bilirubin AST ALT Alkaline Phosphatase Creatine Kinase Cancelled 32 L Troponin I Cancelled 0.02 B-Natriuretic Peptide Total Protein Albumin Lipase Blood Type Antibody Screen 08/09/17 08/09/17 08/09/17 11:28 14:30 16:57 WBC RBC Hgb Hct MCV MCH MCHC RDW Plt Count MPV Neutrophils % Lymphocytes % Monocytes % Eosinophils % Basophils % PT with INR INR PTT (Actin FS) Sodium Potassium Chloride Carbon Dioxide Anion Gap BUN Creatinine Creat Clearance w eGFR POC Glucometer 185 166 145 Random Glucose Calcium Magnesium Total Bilirubin AST ALT Alkaline Phosphatase Creatine Kinase Troponin I B-Natriuretic Peptide Total Protein Albumin Lipase Blood Type Antibody Screen ASSESSMENT AND PLAN: 77 yom with PMhx of systolic CHF, HTN, CAD (s/p CABG and 4 stents ~10 years ago) , PVD (s/p b/l angioplasty), DM, COPD (on home O2 2L) admitted with atypical chest pain -Atypical chest pain -Hyperkalemia -Ischemic cardiomyopathy -Chronic systolic HF -CAD s/p CABG -CKD stage II-III -PVD s/p angioplasty -IDDM -COPD on 2L home oxygen Plan: ACS ruled out, cardiology input noted, no further testing unless new events. Recurrent hyperkalemia, kayexalate x 1, nebs x 2, 2 units Insulin for blood sugars, repeat K levels later today, low K diet. Hold Entresto/spironolactone for now, Discuss with cardiology, may need to hold on d/c continue lasix ISS, levemir, diabetic diet, confirm home insulin. Cr around baseline, monitor for now. Suspect from poor renal perfusion from severe systolic dysfunction. DVTPPX dispo d/c in 24 hours if K normalized and no new events. Plan discussed with patient and at bedside in detail, all questions answered.
--- NOTE | 2017-08-09 09:52 | PN ---
Progress Note (short form) - Note Progress Note: Chief Complaint: Events noted, notes reviewed, chest pain which is intermittently alleviated with SL NTG administration, denies any dyspnea History of Present Illness: Seen and examined on telemetry. Full consult dictated Medications: Current Medications Acetaminophen (Tylenol -) 650 mg PO Q6H PRN PRN Reason: PAIN Aspirin (Ecotrin -) 81 mg PO DAILY [facility] Budesonide/Formoterol Fumarate (Symbicort 160/4.5mcg -) 2 puff IH BID [facility] Carvedilol (Coreg -) 3.125 mg PO BID [facility] Clopidogrel Bisulfate (Plavix -) 75 mg PO DAILY [facility] Escitalopram Oxalate (Lexapro -) 20 mg PO HS [facility] Furosemide (Lasix -) 40 mg PO DAILY [facility] Heparin Sodium (Porcine) (Heparin -) 5,000 unit SQ TID [facility] Last Admin: 08/09/17 06:22 Dose: 5,000 unit Insulin Aspart (Novolog Vial Sliding Scale -) 1 vial SQ ACHS [facility] PRN Reason: Protocol Last Admin: 08/09/17 06:22 Dose: 2 units Insulin Detemir (Levemir Vial) 25 units SQ HS [facility] Rosuvastatin Calcium (Crestor -) 20 mg PO HS [facility] Sacubitril/Valsartan (Entresto 24 Mg-26 Mg Tablet) 1 tab PO BID [facility] Tamsulosin HCl (Flomax -) 0.4 mg PO 0830 [facility] Review of Systems - Review of Systems Constitutional: denies: Chills, Fever Cardiovascular: As noted above Respiratory: reports: Dyspnea denies: Cough or Sputum Production Gastrointestinal: denies: Nausea, Vomiting, diarrhea, Constipation or Abdominal Pain Musculoskeletal: denies: Joint Pain Neurological: denies: Headache Vital Signs: Last Vital Signs Temp Pulse Resp BP Pulse Ox 97.3 F L 62 18 115/50 96 08/08/17 22:29 08/09/17 07:55 08/09/17 07:55 08/09/17 07:55 08/09/17 07:55 Intake & Output 08/06/17 08/07/17 08/08/17 08/09/17 23:59 23:59 23:59 23:59 Weight 170 lb HEENT: Atraumatic, MIRIAM, EOMI Neck: Supple Negative JVD Respiratory: Clear to A&P Bilaterally Cardiovascular: S1 S2 Regular Rate and Rhythm Gastrointestinal: Soft Benign Normal Bowel Sounds Ext: No Edema Labs: CBC, BMP 08/09/17 06:35 08/09/17 06:35 Hepatic Panel Total Bilirubin 0.2 mg/dL (0.2-1.0) D 08/09/17 06:35 AST 31 U/L (15-37) D 08/09/17 06:35 ALT 58 U/L (12-78) 08/09/17 06:35 Alkaline Phosphatase 76 U/L (45-117) 08/09/17 06:35 Albumin 3.5 g/dl (3.4-5.0) 08/09/17 06:35 Troponin, BNP 08/08/17 08/08/17 08/09/17 23:00 23:00 06:35 Troponin I < 0.02 D 0.02 B-Natriuretic Peptide 1974.03 H 08/09/17 06:35 Troponin I Cancelled B-Natriuretic Peptide Assessment/Plan 1. Chest pain syndrome in a patient with known history of CAD post PCI/stent/ CABG angina pectoris 2. Systolic LV dysfunction with chronic class I-II NYHA classifcation LV failure , compensated/euvolemic 3. Hypertension 4. Diabetes mellitus 5. Hypercholesterolemia 6. PAD post SLABBER 7. COPD 8. CKD PLAN: 1. Continue Coreg and titrate dosage as tolerated, hemodynamics permitting 2. Continue Entresto with close monitoring of renal function 3. Continue ASA and Plavix 4. Continue Crestor 5. Continue Lasix with close monitoring of renal function 6. Addition of nitrates and Ranexa 7. Since there is no evidence of ACS recommend optimization of medical therapy and probable D/C home later today or in AM provided patient is clinically improved, further testing to be performed as outpatient Katharine Mitchell MD
[2017-08-09] MEDS ORDERED: VENLAFAXINE HCL 100 MG TABLET PO SCH (10:00)
[2017-08-09] MEDS ORDERED: SACUBITRIL/VALSARTAN 24 MG-26 MG TABLET PO SCH (10:00)
--- NOTE | 2017-08-09 10:30 | CONS ---
DATE OF CONSULTATION: 08/09/2017 CONSULTATION REQUESTED BY: Hospitalist CHIEF COMPLAINT: Chest pain. A 77-year-old male with a known history of coronary artery disease, status post percutaneous coronary intervention and stenting, status post coronary artery bypass grafting, angina pectoris, systolic left ventricular dysfunction with chronic Class 1 to 2 [place] Heart Association Classification left ventricular failure, hypertensive cardiovascular disease, diabetes mellitus, hypercholesterolemia, peripheral vascular disease, post peripheral intervention, chronic obstructive pulmonary disease, chronic kidney disease, who presented to [facility] with recurrent episodes of left-sided chest discomfort described as sharp pain, which are intermittent and occasionally alleviated with sublingual nitroglycerin administration. Patient denied any exacerbation with physical exertion. Patient denied any associated symptomatology, i.e. diaphoresis. Patient was recently hospitalized with [id number] congestive heart failure. Patient continues to report persistence of dyspnea with [id number] physical exertion. Patient denies any orthopnea, paroxysmal nocturnal dyspnea, or peripheral edema. Patient denies any palpitations, dizziness, lightheadedness, or syncope. Patient denies any fatigue or tiredness. Patient currently is pain-free. PAST MEDICAL HISTORY: Coronary artery disease, status post myocardial infarction, status post percutaneous coronary intervention and stenting, status post coronary artery bypass grafting, angina pectoris, systolic left ventricular dysfunction with chronic Class 1 to 2 [place] Heart [employer] Classification left ventricular failure, hypertensive cardiovascular disease, diabetes mellitus, hypercholesterolemia, chronic obstructive pulmonary disease, lung carcinoma, chronic kidney disease, cholecystectomy, degenerative lumbosacral disk disease with chronic low back pain syndrome, and degenerative joint disease. SOCIAL HISTORY: He admits to tobacco abuse to recently. FAMILY HISTORY: No history of coronary artery disease. ALLERGIES: LYRICA. MEDICAL THERAPY: Currently includes acetaminophen 650 mg every 6 hours as needed; Ecotrin 81 mg once a day; Symbicort twice a day; Coreg 3.125 mg twice a day; Plavix 75 mg once a day; Lexapro 20 mg once a day; Lasix 40 mg once a day; subcutaneous heparin 5000 units subcutaneously 3 times a day; insulin; Crestor 20 mg once a day; Entresto 24/26 mg twice a day; and Flomax 0.4 mg once a day. REVIEW OF SYSTEMS: Head/Neck: He denies headache, photophobia, blurring of vision. Respiratory: He denies cough or sputum production. Cardiovascular: As noted above. Gastrointestinal: He denies nausea, vomiting, diarrhea, abdominal discomfort. Genitourinary: No symptoms reported. Musculoskeletal: History of degenerative joint disease. PHYSICAL EXAMINATION: Vital Signs: Blood pressure 115/50 mmHg, pulse rate is 62 beats/min. Head/Neck: Pupils equal and reactive to light and accommodation. Extraocular muscles are intact. Anicteric sclerae. Negative JVD. No bruit appreciated. Chest: Clear to auscultation and percussion. Cardiovascular: S1, S2, regular, grade 2/6 systolic apical murmur. No clicks or gallops. Abdomen: Soft, benign, normoactive bowel sounds. Extremities: Negative edema. Diminished distal pulses. No calf tenderness. EKG revealed sinus bradycardia with 1st-degree AV block, intraventricular conduction delay with poor R-wave progression, nonspecific T-wave abnormality. CBC revealed a white cell count of 6.3, hemoglobin 11.9, platelet count 181. Basic metabolic profile revealed sodium 139, potassium 5.1, BUN 60, creatinine 1.7, glucose 122. B-type natriuretic peptide was 1974 with troponin-I less than 0.02. ASSESSMENT: 1. Chest pain syndrome in a patient with known history of coronary artery disease, post percutaneous coronary intervention and stenting, status post coronary artery bypass grafting, angina pectoris. 2. Systolic left ventricular dysfunction with chronic Class 1 to 2 [place] Heart [employer] Classification left ventricular failure, compensated/euvolemic. 3. Hypertensive cardiovascular disease. 4. Diabetes mellitus. 5. Hypercholesterolemia. 6. History of peripheral vascular disease, post peripheral intervention. 7. Chronic obstructive pulmonary disease. 8. Chronic kidney disease. RECOMMENDATION: 1. Continuation of Coreg and up-titration of dosage as tolerated, hemodynamics permitting. 2. Continuation of Entresto with close monitoring of renal function. 3. Continuation of aspirin and Plavix. 4. Continuation of Crestor. 5. Continuation of Lasix with close monitoring of renal function. 6. Addition of nitrates and Ranexa, considering the above-noted clinical presentation. 7. Since there is no evidence of acute coronary syndrome, recommend optimization of medical therapy and probable discharge home later today or in the morning, provided that patient is clinically improved, and further testing to be perform on outpatient basis. Thank you for the kind referral. AMANDA VARGAS M.D. [id number]
[2017-08-09] MEDS ORDERED: PT OWN MED DRAWER 7, Y5N ONE ×2 (10:47→21:39)
[2017-08-09] MEDS: CLOPIDOGREL BISULFATE 75 MG TABLET (FP) PO SCH (10:59)
[2017-08-09] MEDS: ASPIRIN COATED 81 MG TABLET.EC PO SCH (10:59)
[2017-08-09] MEDS: TAMSULOSIN HCL 0.4 MG CAP.ER.24H (FP) PO SCH (11:00)
[2017-08-09] MEDS: FUROSEMIDE 20 MG TABLET (FP) PO SCH (11:00)
[2017-08-09] MEDS: BUDESONIDE/FORMETEROL FUMARATE 160/4.5 mcg INHALER IH SCH ×2 (11:00→21:41)
[2017-08-09] MEDS: ISOSORBIDE MONONITRATE 30 MG TAB.SR.24H (FP) PO SCH (11:00)
[2017-08-09] MEDS: CARVEDILOL 3.125 MG TABLET (FP) PO SCH ×2 (11:00→21:35)
[2017-08-09] MEDS: RANOLAZINE E.R. 500 MG TABLET (FP) PO SCH ×2 (11:00→21:35)
[2017-08-09 12:01] LABS: ANION GAP 7 (8-16); BLOOD UREA NITROGEN 58 mg/dL (7-18); CALCIUM 8.9 mg/dL (8.5-10.1); CHLORIDE 115 mmol/L (98-107); CO2 17 mmol/L (21-32); CREATININE 1.7 mg/dL (0.7-1.3); GLUCOSE,RANDOM 172 mg/dL (74-106); POTASSIUM 5.6 mmol/L (3.5-5.1); SODIUM 139 mmol/L (136-145)
[2017-08-09] MEDS ORDERED: ALBUTEROL SO4 0.5 % INH SOLN 2.5 MG/0.5 ML VIAL.NEB. NEB ONE ×2 (15:00)
[2017-08-09] MEDS ORDERED: SODIUM POLYSTYRENE SULFONATE 15 GM/60 ML BOTTLE PO ONE (15:00)
--- NOTE | 2017-08-09 16:06 | EKG ---
Test Reason : Blood Pressure : / mmHG Vent. Rate : 062 BPM Atrial Rate : 062 BPM P-R Int : 264 ms QRS Dur : 132 ms QT Int : 486 ms P-R-T Axes : 070 -23 109 degrees QTc Int : 493 ms SINUS RHYTHM WITH 1ST DEGREE A-V BLOCK NON-SPECIFIC INTRA-VENTRICULAR CONDUCTION BLOCK LEFT VENTRICULAR HYPERTROPHY T WAVE ABNORMALITY, CONSIDER ANTERIOR ISCHEMIA ABNORMAL ECG Confirmed by MD HUMAIRA, JOSÉ LUIS ([id number]) on 08/09/2017 4:06:12 PM Referred By: Confirmed By:JOSÉ LUIS GERARDO MD
[2017-08-09] MEDS ORDERED: SPIRONOLACTONE 25 MG TABLET (FP) PO SCH (18:00)
[2017-08-09 21:10] LABS: ANION GAP 7 (8-16); BLOOD UREA NITROGEN 62 mg/dL (7-18); CALCIUM 8.7 mg/dL (8.5-10.1); CHLORIDE 112 mmol/L (98-107); CO2 20 mmol/L (21-32); CREATININE 1.9 mg/dL (0.7-1.3); GLUCOSE,RANDOM 173 mg/dL (74-106); POTASSIUM 5.7 mmol/L (3.5-5.1); SODIUM 139 mmol/L (136-145)
[2017-08-09] MEDS ORDERED: ROSUVASTATIN CA 20 MG TABLET (FP) PO SCH (22:00)
[2017-08-09] MEDS ORDERED: INSULIN DETEMIR 100 UNITS/ML MDV SQ SCH (22:00)
[2017-08-09] MEDS ORDERED: ESCITALOPRAM OXALATE 20 MG TABLET (FP) PO SCH ×2 (22:00)
[2017-08-09] MEDS ORDERED: SODIUM CHLORIDE 500 ML IV STA (22:43)
[2017-08-09] MEDS ORDERED: INSULIN (NOVOLOG) ASPART 100 UNITS/ML 10ML VIAL SQ ONE (22:43)
[2017-08-10] MEDS ORDERED: MELATONIN 5 MG TABLETS PO ONE (01:33)
--- NOTE | 2017-08-10 05:56 | PN ---
Physical Exam: SUBJECTIVE: Patient seen and examined - Pt with K 5.7 in PM yesterday; ordered for fluid bolus, insulin, calcium gluconate per night team. Afebrile, VSS. - Denies f/c/n/v/d, cp, sob, cough, ab pain, back pain, peripheral weakness/ numbness, vision changes, SAWYER; Endorsing constipation, no BM since admission OBJECTIVE: Vital Signs Intake & Output 08/07/17 08/08/17 08/09/17 08/10/17 23:59 23:59 23:59 23:59 Intake Total 730 Output Total 300 Balance 430 Weight 77.111 kg 77.111 kg Period Temp Pulse Resp BP Sys/Garcia Pulse Ox Last 24 Hr 97.3 F-98.2 F 58-76 18-20 111-143/50-69 96-100 GENERAL: Elderly man, laying in bed, NAD, A&Ox3 HEAD: Normal with no signs of trauma. EYES: PERRL, extraocular movements intact, sclera anicteric, conjunctiva clear. No ptosis. ENT: Ears normal, nares patent, oropharynx clear without exudates, moist mucous membranes. NECK: Trachea midline, full range of motion, supple. No JVD noted LUNGS: Breath sounds equal, clear to auscultation bilaterally, no wheezes, no crackles, no accessory muscle use. HEART: Regular rate and rhythm, S1, S2 without murmur, rub or gallop. ABDOMEN: Soft, nontender, nondistended, normoactive bowel sounds, no guarding, no rebound, no hepatosplenomegaly, no masses. EXTREMITIES: 1+ PT pulse on left, all other 2+ pulses, warm, well-perfused, no edema. NEUROLOGICAL: Cranial nerves II through XII grossly intact. Normal speech, gait not observed. PSYCH: Normal mood, normal affect. Pleasant SKIN: Warm, dry, normal turgor, no rashes or lesions noted Laboratory Results - last 24 hr CBC, BMP 08/10/17 06:42 08/09/17 06:35 08/09/17 20:00 08/09/17 08/09/17 08/09/17 06:35 06:35 06:35 WBC 6.3 RBC 4.74 Hgb 11.9 Hct 37.2 MCV 78.4 L MCH 25.1 L MCHC 32.0 RDW 19.1 H Plt Count 181 MPV 7.9 Sodium 139 Potassium 5.1 Chloride 117 H Carbon Dioxide 17 L Anion Gap 5 L BUN 60 H Creatinine 1.7 H Creat Clearance w eGFR 39.49 POC Glucometer Random Glucose 122 H D Calcium 9.1 Total Bilirubin 0.2 D AST 31 D ALT 58 Alkaline Phosphatase 76 Creatine Kinase 29 L Cancelled Troponin I 0.02 Cancelled Total Protein 6.9 Albumin 3.5 08/09/17 08/09/17 08/09/17 11:15 11:15 11:28 WBC RBC Hgb Hct MCV MCH MCHC RDW Plt Count MPV Sodium 139 Potassium 5.6 H Chloride 115 H Carbon Dioxide 17 L Anion Gap 7 L BUN 58 H Creatinine 1.7 H Creat Clearance w eGFR POC Glucometer 185 Random Glucose 172 H D Calcium 8.9 Total Bilirubin AST ALT Alkaline Phosphatase Creatine Kinase 32 L Troponin I 0.02 Total Protein Albumin 08/09/17 08/09/17 08/09/17 14:30 16:57 20:00 WBC RBC Hgb Hct MCV MCH MCHC RDW Plt Count MPV Sodium 139 Potassium 5.7 H Chloride 112 H Carbon Dioxide 20 L Anion Gap 7 L BUN 62 H Creatinine 1.9 H Creat Clearance w eGFR POC Glucometer 166 145 Random Glucose 173 H Calcium 8.7 Total Bilirubin AST ALT Alkaline Phosphatase Creatine Kinase Troponin I Total Protein Albumin 08/09/17 21:33 WBC RBC Hgb Hct MCV MCH MCHC RDW Plt Count MPV Sodium Potassium Chloride Carbon Dioxide Anion Gap BUN Creatinine Creat Clearance w eGFR POC Glucometer 196 Random Glucose Calcium Total Bilirubin AST ALT Alkaline Phosphatase Creatine Kinase Troponin I Total Protein Albumin Active Medications Generic Name Dose Route Start Last Admin Trade Name Freq PRN Reason Stop Dose Admin Acetaminophen 650 mg 08/09/17 02:39 Tylenol - PO Q6H PRN PAIN Aspirin 81 mg 08/09/17 10:00 08/09/17 10:59 Ecotrin - PO 81 mg DAILY KADEEM Administration Budesonide/Formoterol Fumarate 2 puff 08/09/17 10:00 08/09/17 21:41 Symbicort 160/4.5mcg - IH 2 puff BID KADEEM Administration Carvedilol 3.125 mg 08/09/17 10:00 08/09/17 21:35 Coreg - PO 3.125 mg BID KADEEM Administration Clopidogrel Bisulfate 75 mg 08/09/17 10:00 08/09/17 10:59 Plavix - PO 75 mg DAILY KADEEM Administration Escitalopram Oxalate 20 mg 08/09/17 22:00 08/09/17 21:35 Lexapro - PO 20 mg HS KADEEM Administration Furosemide 40 mg 08/09/17 10:00 08/09/17 11:00 Lasix - PO 40 mg DAILY KADEEM Administration Heparin Sodium (Porcine) 5,000 unit 08/09/17 06:00 08/09/17 21:38 Heparin - SQ 5,000 unit TID KADEEM Administration Insulin Aspart 1 vial 08/09/17 07:00 08/09/17 21:38 Novolog Vial Sliding Scale - SQ 2 units ACHS KADEEM Administration Protocol Insulin Detemir 25 units 08/09/17 22:00 08/09/17 21:35 Levemir Vial SQ 25 units HS KADEEM Administration Isosorbide Mononitrate 30 mg 08/09/17 10:00 08/09/17 11:00 Imdur - PO 30 mg DAILY KADEEM Administration Ranolazine 500 mg 08/09/17 10:00 08/09/17 21:35 Ranexa - PO 500 mg BID KADEEM Administration Rosuvastatin Calcium 20 mg 08/09/17 22:00 08/09/17 21:38 Crestor - PO 20 mg HS KADEEM Administration Tamsulosin HCl 0.4 mg 08/09/17 08:30 08/09/17 11:00 Flomax - PO 0.4 mg 0830 KADEEM Administration No micro CXR 08/08 - prior OHS. No acute pathology. EKG 08/08 - NSR with 1st degree HB, LVH, qtc 493, rate of 63 ASSESSMENT/PLAN: 77 y/o M w/PMH of systolic CHF, HTN, CAD (s/p CABG and 4 stents ~10 years ago), PVD (s/p b/l angioplasty), DM, COPD (on home O2 2L) presents to the ER with chest pain. Obs to r/o ACS -Chest pain -r/o ACS -trend trops, initial trop negative -given ASA 325 in ER, c/w 81 mg asa daily -c/w home plavix -check TSH -pain control with tylenol 650 mg po q6h prn -O2 supplementation to keep O2 saturation >88% -Echo 07/20/17: 29.9% EF LV systolic function severely reduced. -Hyperkalemia -given 5 units insulin in ER, Ca gluconate 1g -will give alb neb x1 now -monitor K+ -systolic CHF -Echo 07/20/17: 29.9% EF LV systolic function severely reduced. -not currently fluid overloaded -c/w lasix 40 mg po qd -c/w carvedilol 3.125 mg po bid -c/w spironolactone 25 mg po qd -CAD -c/w plavix, crestor 20 mg -HTN -c/w carvedilol 3.125 mg po bid, entresto 24- -CKD -Cr 1.9 (last Cr on discharge was 1.5), monitor, increase PO intake of water , will hold lasix for now, reassess tomorrow to see if kidney function improves -DM -Levemir 25 units qhs -ISS, BGMs ACHS -Depression -c/w lexapro 20 mg -BPH -c/w flomax -DVT ppx -Heparin 5000 units sq q8h -FEN -no fluids -hyperkalemia as noted above -Cardiac diet -Dispo: tele/obs
[2017-08-10] MEDS: HEPARIN NA (PORCINE) 5,000 UNITS/ML 1ML VIAL SQ SCH ×2 (06:25→16:27)
[2017-08-10] MEDS: INSULIN SLIDING SCALE (NOVOLOG) 1 VIAL SQ SCH ×3 (06:25→17:16)
[2017-08-10 07:06] LABS: BASO % 0.8 % (0-2.0); HEMATOCRIT 36.2 % (35.4-49); HEMOGLOBIN 11.7 GM/dL (11.7-16.9); LYMPH % 17.3 % (8-40); MCH 25.3 pg (25.7-33.7); MCHC 32.4 g/dl (32.0-35.9); MEAN PLT VOLUME 8.5 fl (7.5-11.1); MONO % 6.6 % (3.8-10.2); NEUT % 73.3 % (42.8-82.8); PLATELET COUNT 178 K/MM3 (134-434); RBC 4.63 M/mm3 (4.00-5.60); RDW 19.6 % (11.9-15.9); WHITE BLOOD COUNT 6.2 K/mm3 (4.0-10.0)
[2017-08-10 07:56] LABS: CHOLESTEROL 100 mg/dL (50-200); HDL CHOLESTEROL 37 mg/dL (40-60); LDL CHOLESTEROL (ONLY SJRH) 49 mg/dL (5-100); TRIGLYCERIDES 138 mg/dL (35-160)
[2017-08-10 08:09] LABS: CHLORIDE 112 mmol/L (98-107); POTASSIUM 5.3 mmol/L (3.5-5.1); SODIUM 140 mmol/L (136-145)
--- NOTE | 2017-08-10 08:14 | PN ---
Teaching Attending Note Name of Resident: Mihir Menard ATTENDING PHYSICIAN STATEMENT I saw and evaluated the patient. I reviewed the resident's note and discussed the case with the resident. I agree with the resident's findings and plan as documented with exceptions mentioned below. SUBJECTIVE: Patient seen and examined. no complaints, doing well. OBJECTIVE: Vital Signs Period Temp Pulse Resp BP Sys/Garcia Pulse Ox Last 24 Hr 97.3 F-98.2 F 58-76 18-20 103-143/53-69 98-100 Intake & Output 08/07/17 08/08/17 08/09/17 08/10/17 23:59 23:59 23:59 23:59 Intake Total 730 Output Total 300 Balance 430 Weight 170 lb 170 lb 175 lb 12.8 oz General sitting in bed in no acute distress Chest CTAB, no rales or wheezing Abdomen soft, NT, ND, positive bowel sounds Extremities no edema Home Medication List Medication Instructions Recorded Confirmed Type Bimatoprost [Lumigan] 1 drop OU DAILY 12/24/16 08/08/17 History Budesonide/Formeterol Fumarate 2 inh PO BID 12/24/16 08/08/17 History [SYMBICORT 160/4.5mcg -] Clopidogrel Bisulfate [Plavix -] 75 mg PO DAILY 12/24/16 08/08/17 History Escitalopram Oxalate [Lexapro -] 2 mg PO HS 12/24/16 08/08/17 History Rosuvastatin Calcium [Crestor] 20 mg PO HS 12/24/16 08/08/17 History Rosuvastatin Calcium [Crestor] 20 mg PO HS 07/19/17 08/08/17 History Insulin Glargine,Hum.rec.anlog 50 unit SQ DAILY 08/08/17 08/08/17 History [Lantus] Active Medications Generic Name Dose Route Start Last Admin Trade Name Freq PRN Reason Stop Dose Admin Acetaminophen 650 mg 08/09/17 02:39 Tylenol - PO Q6H PRN PAIN Aspirin 81 mg 08/09/17 10:00 08/09/17 10:59 Ecotrin - PO 81 mg DAILY KADEEM Administration Budesonide/Formoterol Fumarate 2 puff 08/09/17 10:00 08/09/17 21:41 Symbicort 160/4.5mcg - IH 2 puff BID KADEEM Administration Carvedilol 3.125 mg 08/09/17 10:00 08/09/17 21:35 Coreg - PO 3.125 mg BID KADEEM Administration Clopidogrel Bisulfate 75 mg 08/09/17 10:00 08/09/17 10:59 Plavix - PO 75 mg DAILY KADEEM Administration Escitalopram Oxalate 20 mg 08/09/17 22:00 08/09/17 21:35 Lexapro - PO 20 mg HS KADEEM Administration Furosemide 40 mg 08/09/17 10:00 08/09/17 11:00 Lasix - PO 40 mg DAILY KADEEM Administration Heparin Sodium (Porcine) 5,000 unit 08/09/17 06:00 08/10/17 06:25 Heparin - SQ 5,000 unit TID [facility] Administration Insulin Aspart 1 vial 08/09/17 07:00 08/10/17 06:25 Novolog Vial Sliding Scale - SQ Not Given [facility] Protocol Insulin Detemir 25 units 08/09/17 22:00 08/09/17 21:35 Levemir Vial SQ 25 units HS [facility] Administration Isosorbide Mononitrate 30 mg 08/09/17 10:00 08/09/17 11:00 Imdur - PO 30 mg DAILY KADEEM Administration Ranolazine 500 mg 08/09/17 10:00 08/09/17 21:35 Ranexa - PO 500 mg BID KADEEM Administration Rosuvastatin Calcium 20 mg 08/09/17 22:00 08/09/17 21:38 Crestor - PO 20 mg HS KADEEM Administration Tamsulosin HCl 0.4 mg 08/09/17 08:30 08/09/17 11:00 Flomax - PO 0.4 mg 0830 KADEEM Administration Laboratory Results - last 24 hr 08/09/17 08/09/17 08/09/17 06:09 16:57 20:00 WBC RBC Hgb Hct MCV MCH MCHC RDW Plt Count MPV Neutrophils % Lymphocytes % Monocytes % Eosinophils % Basophils % Sodium 139 Potassium 5.7 H Chloride 112 H Carbon Dioxide 20 L Anion Gap 7 L BUN 62 H Creatinine 1.9 H POC Glucometer 162.19275 145 Random Glucose 173 H Calcium 8.7 Phosphorus Magnesium Triglycerides Cholesterol Total LDL Cholesterol HDL Cholesterol TSH 08/09/17 08/10/17 08/10/17 21:33 06:21 06:42 WBC RBC Hgb Hct MCV MCH MCHC RDW Plt Count MPV Neutrophils % Lymphocytes % Monocytes % Eosinophils % Basophils % Sodium Potassium Chloride Carbon Dioxide Anion Gap BUN Creatinine POC Glucometer 196 86 Random Glucose Calcium Phosphorus Magnesium Triglycerides 138 D Cholesterol 100 Total LDL Cholesterol 49 HDL Cholesterol 37 L TSH 08/10/17 08/10/17 08/10/17 06:42 06:42 11:42 WBC 6.2 RBC 4.63 Hgb 11.7 Hct 36.2 MCV 78.0 L MCH 25.3 L MCHC 32.4 RDW 19.6 H Plt Count 178 MPV 8.5 Neutrophils % 73.3 Lymphocytes % 17.3 Monocytes % 6.6 Eosinophils % 2.0 Basophils % 0.8 Sodium 140 Potassium 5.3 H Chloride 112 H Carbon Dioxide 18 L Anion Gap 10 BUN 59 H Creatinine 1.9 H POC Glucometer 155 Random Glucose 65 L D Calcium 8.8 Phosphorus 5.2 H Magnesium 1.8 Triglycerides Cholesterol Total LDL Cholesterol HDL Cholesterol TSH 1.50 08/10/17 13:40 WBC RBC Hgb Hct MCV MCH MCHC RDW Plt Count MPV Neutrophils % Lymphocytes % Monocytes % Eosinophils % Basophils % Sodium 141 Potassium 4.5 Chloride 112 H Carbon Dioxide 19 L Anion Gap 10 BUN 57 H Creatinine 2.0 H POC Glucometer Random Glucose 126 H D Calcium 8.6 Phosphorus Magnesium Triglycerides Cholesterol Total LDL Cholesterol HDL Cholesterol TSH ASSESSMENT AND PLAN: 77 yom with PMhx of systolic CHF, HTN, CAD (s/p CABG and 4 stents ~10 years ago) , PVD (s/p b/l angioplasty), DM, COPD (on home O2 2L) admitted with atypical chest pain -Atypical chest pain -Hyperkalemia -Ischemic cardiomyopathy -Chronic systolic HF -CAD s/p CABG -CKD stage II-III -PVD s/p angioplasty -IDDM -COPD on 2L home oxygen Plan: ACS ruled out, cardiology input noted, no further testing unless new events. Recurrent hyperkalemia, monitor levels, low K diet. Resolved now. Hold Entresto/spironolactone for now, Discussed with magdaleno Durham with holding entresto/Spironolactone with outpatient monitoring and to be resumed in 1 week if feasible. ISS, levemir, diabetic diet, resume home insulin. Cr around baseline, monitor for now. Suspect from poor renal perfusion from severe systolic dysfunction. DVTPPX dispo d/c home today with outpatient K monitoring and resumption of his home meds accordingly. Plan discussed with patient and at bedside in detail, all questions answered.
[2017-08-10 08:54] LABS: ANION GAP 10 (8-16); BLOOD UREA NITROGEN 59 mg/dL (7-18); CALCIUM 8.8 mg/dL (8.5-10.1); CO2 18 mmol/L (21-32); CREATININE 1.9 mg/dL (0.7-1.3); GLUCOSE,RANDOM 65 mg/dL (74-106); MAGNESIUM 1.8 mg/dL (1.8-2.4); PHOSPHOROUS 5.2 mg/dL (2.5-4.9)
[2017-08-10] MEDS: TAMSULOSIN HCL 0.4 MG CAP.ER.24H (FP) PO SCH (09:28)
[2017-08-10] MEDS: RANOLAZINE E.R. 500 MG TABLET (FP) PO SCH (09:28)
[2017-08-10] MEDS: ISOSORBIDE MONONITRATE 30 MG TAB.SR.24H (FP) PO SCH (09:28)
[2017-08-10] MEDS: FUROSEMIDE 20 MG TABLET (FP) PO SCH (09:28)
[2017-08-10] MEDS: CARVEDILOL 3.125 MG TABLET (FP) PO SCH (09:29)
[2017-08-10] MEDS: ASPIRIN COATED 81 MG TABLET.EC PO SCH (09:29)
[2017-08-10] MEDS: CLOPIDOGREL BISULFATE 75 MG TABLET (FP) PO SCH (09:29)
[2017-08-10] MEDS: BUDESONIDE/FORMETEROL FUMARATE 160/4.5 mcg INHALER IH SCH (09:30)
--- NOTE | 2017-08-10 10:21 | PN ---
Progress Note, Physician Chief Complaint: Events noted Not in distress History of Present Illness: Patient was seen and examined. Awake and alert. Chart was reviewed Denies chest pain, SOB or palpitations - Current Medication List Current Medications: Active Medications Acetaminophen (Tylenol -) 650 mg PO Q6H PRN PRN Reason: PAIN Aspirin (Ecotrin -) 81 mg PO DAILY [facility] Last Admin: 08/10/17 09:29 Dose: 81 mg Budesonide/Formoterol Fumarate (Symbicort 160/4.5mcg -) 2 puff IH BID [facility] Last Admin: 08/10/17 09:30 Dose: 2 puff Carvedilol (Coreg -) 3.125 mg PO BID [facility] Last Admin: 08/10/17 09:29 Dose: 3.125 mg Clopidogrel Bisulfate (Plavix -) 75 mg PO DAILY [facility] Last Admin: 08/10/17 09:29 Dose: 75 mg Escitalopram Oxalate (Lexapro -) 20 mg PO [facility] Last Admin: 08/09/17 21:35 Dose: 20 mg Furosemide (Lasix -) 40 mg PO DAILY [facility] Last Admin: 08/10/17 09:28 Dose: 40 mg Heparin Sodium (Porcine) (Heparin -) 5,000 unit SQ TID [facility] Last Admin: 08/10/17 06:25 Dose: 5,000 unit Insulin Aspart (Novolog Vial Sliding Scale -) 1 vial SQ ACHS [facility] PRN Reason: Protocol Last Admin: 08/10/17 06:25 Dose: Not Given Insulin Detemir (Levemir Vial) 25 units SQ [facility] Last Admin: 08/09/17 21:35 Dose: 25 units Isosorbide Mononitrate (Imdur -) 30 mg PO DAILY [facility] Last Admin: 08/10/17 09:28 Dose: 30 mg Ranolazine (Ranexa -) 500 mg PO BID [facility] Last Admin: 08/10/17 09:28 Dose: 500 mg Rosuvastatin Calcium (Crestor -) 20 mg PO [facility] Last Admin: 08/09/17 21:38 Dose: 20 mg Tamsulosin HCl (Flomax -) 0.4 mg PO 0830 [facility] Last Admin: 08/10/17 09:28 Dose: 0.4 mg - Objective Vital Signs: Vital Signs Temperature 98 F 08/10/17 09:00 Pulse Rate 86 08/10/17 10:02 Respiratory Rate 20 04/02/18 09:34 Blood Pressure 119/48 08/10/17 09:00 O2 Sat by Pulse Oximetry (%) 96 08/10/17 10:02 Neck: Yes: Supple Cardiovascular: Yes: Regular Rate and Rhythm, S1, S2 Respiratory: Yes: Diminished Gastrointestinal: Yes: Normal Bowel Sounds, Soft. No: Tenderness Edema: No Additional Findings/Remarks: - Review of Systems Constitutional: denies: Chills, Fever Cardiovascular: (+) chest pain, (-) palpitations Respiratory: reports: Dyspnea denies: Cough or Sputum Production Gastrointestinal: denies: Nausea, Vomiting, diarrhea, Constipation or Abdominal Pain Musculoskeletal: denies: Joint Pain Neurological: denies: Headache Labs: CBC, BMP 08/10/17 06:42 08/10/17 06:42 INR, PTT INR 1.04 (0.82-1.09) 08/08/17 23:00 Problem List - Problems (1) CAD (coronary artery disease) Code(s): I25.10 - ATHSCL HEART DISEASE OF [place] CORONARY ARTERY W/O ANG PCTRS Qualifiers: Coronary Disease-Associated Artery/Lesion type: [place] artery [place] vs. transplanted heart: [place] heart Associated angina: without angina Qualified Code(s): I25.10 - Atherosclerotic heart disease of [place] coronary artery without angina pectoris (2) COPD (chronic obstructive pulmonary disease) Code(s): J44.9 - CHRONIC OBSTRUCTIVE PULMONARY DISEASE, UNSPECIFIED (3) History of percutaneous coronary intervention Code(s): Z98.890 - OTHER SPECIFIED POSTPROCEDURAL STATES (4) Hx of CABG Code(s): Z95.1 - PRESENCE OF AORTOCORONARY BYPASS GRAFT (5) Hyperlipidemia Code(s): E78.5 - HYPERLIPIDEMIA, UNSPECIFIED Qualifiers: Hyperlipidemia type: pure hypercholesterolemia Qualified Code(s): E78.00 - Pure hypercholesterolemia, unspecified; E78.0 - Pure hypercholesterolemia (6) Hypertension Code(s): I10 - ESSENTIAL (PRIMARY) HYPERTENSION (7) PVD (peripheral vascular disease) Code(s): I73.9 - PERIPHERAL VASCULAR DISEASE, UNSPECIFIED (8) Pulmonary HTN Code(s): I27.20 - PULMONARY HYPERTENSION, UNSPECIFIED (9) Type 2 diabetes mellitus Code(s): E11.9 - TYPE 2 DIABETES MELLITUS WITHOUT COMPLICATIONS Qualifiers: Diabetes mellitus nursing home insulin use: with nursing home use Diabetes mellitus complication status: with neurologic complications Diabetes mellitus complication detail: with other neurological complication Qualified Code(s): E11.49 - Type 2 diabetes mellitus with other diabetic neurological complication (10) NYHA class 2 acute on chronic systolic heart failure Code(s): I50.23 - ACUTE ON CHRONIC SYSTOLIC (CONGESTIVE) HEART FAILURE Assessment/Plan 1. Chest pain syndrome with known history of CAD post PCI/stent/CABG angina pectoris 2. Systolic LV dysfunction with chronic class I-II NYHA classifcation LV failure , compensated/euvolemic 3. Hypertension 4. Diabetes mellitus 5. Hypercholesterolemia 6. PAD post [employer] 7. COPD 8. CKD PLAN: 1. Continue Coreg and titrate dosage as tolerated 2. Continue Entresto with close monitoring of renal function 3. Continue ASA and Plavix 4. Continue Crestor 5. Continue Lasix with close monitoring of renal function 6. Continue Nitrates and Ranexa 7. Optimize medical therapy Further plans are to follow Jayy Morales MD
[2017-08-10] MEDS ORDERED: SODIUM POLYSTYRENE SULFONATE 15 GM/60 ML BOTTLE PO ONE (10:53)
--- NOTE | 2017-08-10 11:30 | EKG ---
Test Reason : Blood Pressure : / mmHG Vent. Rate : 072 BPM Atrial Rate : 072 BPM P-R Int : 240 ms QRS Dur : 138 ms QT Int : 486 ms P-R-T Axes : -13 009 094 degrees QTc Int : 532 ms SINUS RHYTHM WITH 1ST DEGREE A-V BLOCK NON-SPECIFIC INTRA-VENTRICULAR CONDUCTION BLOCK T WAVE ABNORMALITY, CONSIDER LATERAL ISCHEMIA CANNOT RULE OUT ANTERIOR INFARCT ABNORMAL ECG WHEN COMPARED WITH ECG OF 08-AUG-2017 22:32, NO SIGNIFICANT CHANGE WAS FOUND Confirmed by VJ EGAN, RAFAEL ([id number]) on 08/10/2017 11:29:45 AM Also confirmed by TAM LANDRY MD ([id number]) on 08/10/2017 11:30:11 AM Referred By: Confirmed By:TAM LANDRY MD
[2017-08-10 14:15] LABS: ANION GAP 10 (8-16); BLOOD UREA NITROGEN 57 mg/dL (7-18); CALCIUM 8.6 mg/dL (8.5-10.1); CHLORIDE 112 mmol/L (98-107); CO2 19 mmol/L (21-32); GLUCOSE,RANDOM 126 mg/dL (74-106); POTASSIUM 4.5 mmol/L (3.5-5.1); SODIUM 141 mmol/L (136-145)
[2017-08-10 14:49] VITALS: BP 136/66; PULSE 66; TEMP 98.6
--- NOTE | 2017-08-12 11:01 | DS ---
Physical Exam: SUBJECTIVE: Patient seen and examined - Pt with K 5.7 in PM yesterday; ordered for fluid bolus, insulin, calcium gluconate per night team. Afebrile, VSS. - Denies f/c/n/v/d, cp, sob, cough, ab pain, back pain, peripheral weakness/ numbness, vision changes, SAWYER; Endorsing constipation, no BM since admission OBJECTIVE: Last Vital Signs Temp Pulse Resp BP Pulse Ox 98.6 F 66 18 136/66 96 08/10/17 14:00 08/10/17 14:00 08/10/17 14:00 08/10/17 14:00 08/10/17 10:02 PHYSICAL EXAM GENERAL: Elderly man, laying in bed, NAD, A&Ox3 HEAD: Normal with no signs of trauma. EYES: PERRL, extraocular movements intact, sclera anicteric, conjunctiva clear. No ptosis. ENT: Ears normal, nares patent, oropharynx clear without exudates, moist mucous membranes. NECK: Trachea midline, full range of motion, supple. No JVD noted LUNGS: Breath sounds equal, clear to auscultation bilaterally, no wheezes, no crackles, no accessory muscle use. HEART: Regular rate and rhythm, S1, S2 without murmur, rub or gallop. ABDOMEN: Soft, nontender, nondistended, normoactive bowel sounds, no guarding, no rebound, no hepatosplenomegaly, no masses. EXTREMITIES: 1+ PT pulse on left, all other 2+ pulses, warm, well-perfused, no edema. NEUROLOGICAL: Cranial nerves II through XII grossly intact. Normal speech, gait not observed. PSYCH: Normal mood, normal affect. Pleasant SKIN: Warm, dry, normal turgor, no rashes or lesions noted LABS Laboratory Last Values WBC 6.2 K/mm3 (4.0-10.0) 08/10/17 06:42 RBC 4.63 M/mm3 (4.00-5.60) 08/10/17 06:42 Hgb 11.7 GM/dL (11.7-16.9) 08/10/17 06:42 Hct 36.2 % (35.4-49) 08/10/17 06:42 MCV 78.0 fl (80-96) L 08/10/17 06:42 MCH 25.3 pg (25.7-33.7) L 08/10/17 06:42 MCHC 32.4 g/dl (32.0-35.9) 08/10/17 06:42 RDW 19.6 % (11.9-15.9) H 08/10/17 06:42 Plt Count 178 K/MM3 (134-434) 08/10/17 06:42 MPV 8.5 fl (7.5-11.1) 08/10/17 06:42 Neutrophils % 73.3 % (42.8-82.8) 08/10/17 06:42 Lymphocytes % 17.3 % (8-40) 08/10/17 06:42 Monocytes % 6.6 % (3.8-10.2) 08/10/17 06:42 Eosinophils % 2.0 % (0-4.5) 08/10/17 06:42 Basophils % 0.8 % (0-2.0) 08/10/17 06:42 PT with INR 11.70 SEC (9.98-11.88) 08/08/17 23:00 INR 1.04 (0.82-1.09) 08/08/17 23:00 PTT (Actin FS) 33.6 SECONDS (26.9-34.4) 08/08/17 23:00 Sodium 141 mmol/L (136-145) 08/10/17 13:40 Potassium 4.5 mmol/L (3.5-5.1) 08/10/17 13:40 Chloride 112 mmol/L (98-107) H 08/10/17 13:40 Carbon Dioxide 19 mmol/L (21-32) L 08/10/17 13:40 Anion Gap 10 (8-16) 08/10/17 13:40 BUN 57 mg/dL (7-18) H 08/10/17 13:40 Creatinine 2.0 mg/dL (0.7-1.3) H 08/10/17 13:40 Creat Clearance w eGFR 39.49 (>60) 08/09/17 06:35 POC Glucometer 155 UNITS (80-120) 08/10/17 11:42 Random Glucose 126 mg/dL (74-106) H D 08/10/17 13:40 Calcium 8.6 mg/dL (8.5-10.1) 08/10/17 13:40 Phosphorus 5.2 mg/dL (2.5-4.9) H 08/10/17 06:42 Magnesium 1.8 mg/dL (1.8-2.4) 08/10/17 06:42 Total Bilirubin 0.2 mg/dL (0.2-1.0) D 08/09/17 06:35 AST 31 U/L (15-37) D 08/09/17 06:35 ALT 58 U/L (12-78) 08/09/17 06:35 Alkaline Phosphatase 76 U/L (45-117) 08/09/17 06:35 Creatine Kinase 32 IU/L (39-308) L 08/09/17 11:15 Troponin I 0.02 ng/ml (0.00-0.05) 08/09/17 11:15 B-Natriuretic Peptide 1974.03 pg/ml (5-450) H 08/08/17 23:00 Total Protein 6.9 g/dl (6.4-8.2) 08/09/17 06:35 Albumin 3.5 g/dl (3.4-5.0) 08/09/17 06:35 Triglycerides 138 mg/dL (35-160) D 08/10/17 06:42 Cholesterol 100 mg/dL (50-200) 08/10/17 06:42 Total LDL Cholesterol 49 mg/dL (5-100) 08/10/17 06:42 HDL Cholesterol 37 mg/dL (40-60) L 08/10/17 06:42 Lipase 298 U/L (73-393) 08/08/17 23:00 TSH 1.50 uIU/ml (0.358-3.74) 08/10/17 06:42 Blood Type A POSITIVE 08/08/17 23:00 Antibody Screen Negative 08/08/17 23:00 No micro CXR 08/08 - prior OHS. No acute pathology. EKG 08/08 - NSR with 1st degree HB, LVH, qtc 493, rate of 63 EKG 08/09 - No change since prior ECHO 07/20 - 29.9% EF LV systolic function severely reduced. HOSPITAL COURSE: Prehospital course: 77 y/o M w/PMH of systolic CHF, HTN, CAD (s/p CABG and 4 stents ~10 years ago), PVD (s/p b/l angioplasty), DM, COPD (on home O2 2L) presents to the ER with chest pain. Pain started 1 week ago and was there on and off for 1 day. Pain returned two days ago and was similar as initial episode. Pain is on L side of chest wall, sharp, 6/10, lasts for seconds, no radiation, no aggravating or alleviating factors. Pt also states that it was reproducible over the last 2 days, worse with coughing, worse with deep breaths. Pt has a chronic cough with white sputum production but sputum has been somewhat darker recently. He also reports some recent dizziness but admits that he has not been drinking much water. Pt denies any SOB, N/V/F/C, dysuria, hematuria, change in bowel movements , blood in stool, LE swelling, sick contacts, recent travel. Pt reports that he has been exercising since last discharge (07/25/17, admitted for CHF exacerbation) and has quit smoking since then. Pt was started on home O2 at 2L since then and has been using it everyday. Hospital course: In ED, pt labs notable for K 5.7, Cr 1.9, BNP 1974. Trops negative x3. CXR with no pathology. EKG as noted above. Patient given ASA, morphine and O2 in ED. continued on BB and ARB. Lasix held, PO intake increased due to APRYL. Kayexalate x 1, nebs x 2, 2 units Insulin given. Repeat K 5.1. Cardiology consulted. Added Ranexa and nitrates to med regimen per their recs. Repeat K following day 5.6. Pt with no further CP. ARB and ranexa held in setting of persistent HyperK. Pt discharged given no evidence of acute ischemic event. Plan for f/u with Dr. Morales from cardiology in clinic in one week for further management of cardiac care. Pt counseled to hold ARB and Ranexa until seen by cardiology. Date of Admission:08/09/17 Date of Discharge: 08/12/17 Pt is medically stable and cleared for discharge with outpt follow-up with Dr. Morales for further management of cardiac care. Minutes to complete discharge: 35 Discharge Summary Reason For Visit: CHEST PAIN - Instructions Diet, Activity, Other Instructions: During your stay at [facility], you were treated for chest pain, which was concerning for a potential heart attack. You were seen by our cardiology team and after evaluation, you were ruled out for a heart attack. Medications: The following medications were added to your home regimen. Please take them as directed below: Aspirin 81mg, take one pill by mouth once a day Imdur 30mg, take one pill by mouth once a day Ranexa 500mg, take one pill by mouth twice a day Please stop taking the following medications until you are seen by your foundry finisher: Spironolactone 25mg daily Entresto. Please continue to take all other home medications as previously directed. Please note that your entresto and spironolactone will need to be resumed in 1 week if your potassium levels are stable. Please have your doctor check your potassium level sin 3-5 days and resume these medications accordingly. It is very important that these medications be addressed and resumed as able over the next 1 week. Follow-ups: Please follow-up with your primary care physician, Dr. Aguilera, in 1 week. Their contact information has been provided. Please call her office to schedule an appointment. You were seen by our cardiology team during your stay. Please follow-up with our foundry finisher, Dr. Morales, in one weeks for further management of your cardiac medications and treatment. His contact number has been provided in this packet. Please call his office to make an appointment. Diet/exercise: Please abide by a low-fat, low salt diet, low potassium diet . Please return to the hospital if you experience any of the following symptoms: - Worsening or persistent chest pain or tightness - Inability to catch your breath - Pain in your neck, arm or back that is persistent - Any new or concerning symptoms Referrals: Vikash Guerra MD [Primary Care Provider] - 1 Week Jayy Morales MD [Staff Physician] - 1 Week Disposition: HOME - Home Medications Comprehensive Discharge Medication List: Ambulatory Orders Bimatoprost [Lumigan] 1 drop OU DAILY 12/24/16 Budesonide/Formeterol Fumarate [SYMBICORT 160/4.5mcg -] 2 inh PO BID 12/24/16 Clopidogrel Bisulfate [Plavix -] 75 mg PO DAILY 12/24/16 Escitalopram Oxalate [Lexapro -] 2 mg PO HS 12/24/16 Rosuvastatin Calcium [Crestor] 20 mg PO HS 12/24/16 Acetaminophen [Tylenol .Regular Strength -] 650 mg PO Q4H PRN tablet 07/25/17 Albuterol 0.083% Nebulizer Fatuma [Ventolin 0.083% Nebulizer Soln -] 1 amp NEB PRN #1 amp 07/25/17 Albuterol Sulfate Inhaler - [Ventolin HFA Inhaler -] 1 - 2 inh PO QID PRN #1 inhaler 07/25/17 Carvedilol [Coreg -] 3.125 mg PO BID #60 tablet 07/25/17 Furosemide [Lasix] 40 mg PO AM #60 tab 07/25/17 Tamsulosin HCl [Flomax -] 0.4 mg PO 0830 #30 cap.er.24h 07/25/17 Venlafaxine HCl [Effexor -] 75 mg PO DAILY #30 tablet 07/25/17 Insulin Glargine,Hum.rec.anlog [Lantus] 50 unit SQ DAILY 08/08/17 Aspirin Coated [Ecotrin -] 81 mg PO DAILY #30 tablet.ec 08/10/17 Isosorbide Mononitrate [Imdur -] 30 mg PO DAILY #30 tab.sr.24h 08/10/17 Ranolazine [Ranexa -] 500 mg PO BID #60 tab 08/10/17 This patient is new to me today: No Emergency Visit: Yes ED Registration Date: 08/09/17 Care time: The patient presented to the Emergency Department on the above date and was hospitalized for further evaluation of their emergent condition. Critical Care patient: No - Discharge Referral Referred to [facility] Med [facility] No
== END 2017-08-10 17:19 | disposition home or self-care (01) ==
LOC: JER 22:25 → JERBED 08-09 01:11 → J4S 08-09 08:32
PROVIDERS: ADMIT Internal Medicine; ATTEND Hospitalist
PROC: 3E033VG Introduction of Insulin into Peripheral Vein, Percutaneous Approach (ICD-10-PCS; principal; 2017-08-09)
PROC: 3E033GC Introduction of Other Therapeutic Substance into Peripheral Vein, Percutaneous Approach (ICD-10-PCS; 2017-08-09)
PROC: 3E0337Z Introduction of Electrolytic and Water Balance Substance into Peripheral Vein, Percutaneous Approach (ICD-10-PCS; 2017-08-09)
PROC: 3E013VG Introduction of Insulin into Subcutaneous Tissue, Percutaneous Approach (ICD-10-PCS; 2017-08-09)
PROC: 3E0F7GC Introduction of Other Therapeutic Substance into Respiratory Tract, Via Natural or Artificial Opening (ICD-10-PCS; 2017-08-09)
DX: R07.89 Other chest pain (principal); I12.9 Hypertensive chronic kidney disease with stage 1 through stage 4 chronic kidney disease, or unspecified chronic kidney disease; E11.22 Type 2 diabetes mellitus with diabetic chronic kidney disease; N18.3 Chronic kidney disease, stage 3 (moderate); Z87.891 Personal history of nicotine dependence; Z79.4 Long term (current) use of insulin; I50.23 Acute on chronic systolic (congestive) heart failure; I25.10 Atherosclerotic heart disease of native coronary artery without angina pectoris; I25.5 Ischemic cardiomyopathy; I73.9 Peripheral vascular disease, unspecified; I27.20 Pulmonary hypertension, unspecified; E87.5 Hyperkalemia; E78.5 Hyperlipidemia, unspecified; J44.9 Chronic obstructive pulmonary disease, unspecified; J45.909 Unspecified asthma, uncomplicated; D64.9 Anemia, unspecified; N40.0 Benign prostatic hyperplasia without lower urinary tract symptoms; F32.9 Major depressive disorder, single episode, unspecified; Z95.1 Presence of aortocoronary bypass graft; Z95.5 Presence of coronary angioplasty implant and graft; Z88.8 Allergy status to other drugs, medicaments and biological substances; Z79.01 Long term (current) use of anticoagulants; Z99.81 Dependence on supplemental oxygen; Z98.890 Other specified postprocedural states
CPT/HCPCS: 36415; 71045-TC-FY; 80048; 80053; 80061; 82550; 82962; 83690; 83721; 83735; 83880; 84100; 84443; 84484; 85025; 85027; 85610; 85730; 86850; 86900; 86901; 93005; 93010; 94640; 94761; 96372; 96374; 96375; 96376; 99285-25; G0378; J1644

== ENCOUNTER 2018-05-30 10:23 | Inpatient (IN) | payer OTHER, MEDICARE ==
[2018-05-30] MEDS ORDERED: SODIUM CHLORIDE 1,000 ML IV STA ×2 (11:00→15:13)
[2018-05-30] MEDS ORDERED: ONDANSETRON 4 MG/2 ML VIAL IVPUSH ONE (11:00)
[2018-05-30] MEDS ORDERED: ONDANSETRON 4 MG/2 ML VIAL ONE (11:11)
[2018-05-30 11:33] LABS: BASO % 0.3 % (0-2.0); EOS % 0.6 % (0-4.5); HEMATOCRIT 39.3 % (35.4-49); HEMOGLOBIN 13.4 GM/dL (11.7-16.9); LYMPH % 3.7 % (8-40); MCH 27.8 pg (25.7-33.7); MEAN CELL VOLUME 81.8 fl (80-96); MEAN PLT VOLUME 7.9 fl (7.5-11.1); MONO % 4.3 % (3.8-10.2); NEUT % 91.1 % (42.8-82.8); PLATELET COUNT 158 K/MM3 (134-434); RDW 16.1 % (11.9-15.9); WHITE BLOOD COUNT 11.7 K/mm3 (4.0-10.0)
[2018-05-30 11:51] LABS: INR 0.96 (0.83-1.09); PROTHROMBIN TIME (PATIENT) 11.3 SEC (9.7-13.0)
[2018-05-30 11:56] LABS: ALBUMIN 3.9 g/dl (3.4-5.0); ALK PHOS 115 U/L (45-117); ANION GAP 11 MMOL/L (8-16); BILIRUBIN,TOTAL 0.8 mg/dL (0.2-1); BLOOD UREA NITROGEN 50 mg/dL (7-18); CALCIUM 8.8 mg/dL (8.5-10.1); CHLORIDE 105 mmol/L (98-107); CO2 21 mmol/L (21-32); CREATININE 1.8 mg/dL (0.55-1.3); LIPASE 195 U/L (73-393); POTASSIUM 4.8 mmol/L (3.5-5.1); SGOT/AST 37 U/L (15-37); SGPT/ALT 66 U/L (13-61); SODIUM 137 mmol/L (136-145); TOT PROT 7.6 g/dl (6.4-8.2)
[2018-05-30 12:02] LABS: GLUCOSE,RANDOM 334 mg/dL (74-106)
--- NOTE | 2018-05-30 13:24 | PDOC ---
History of Present Illness - General Chief Complaint: Lightheaded Stated Complaint: DIZZINESS/VOMITING Time Seen by Provider: 05/30/18 11:39 - History of Present Illness Initial Comments: 05/30/18 13:24 The patient is a 77 year old male, with a significant past medical history of severe systolic CHF, HTN, CAD s/p stenting (triple bypass about 10 years ago), COPD, CKD, active smoker, PVD s/p angioplasty, IDDM , who presents to the emergency department with, LLQ pain radiating to his left groin with associated nausea and vomiting. Patient endorses a previous hernia repair to the region and a unknown recent procedure done by his urologist Dr. Geetha Limon, He denies any recent fevers, chills, headache or dizziness. He denies any recent diarrhea or constipation. He denies any recent chest pain or shortness of breath. He denies any recent dysuria, frequency, urgency or hematuria. Allergies: Pregabalin. Primary Care Physician: Dr. Guerra Eyeglass Lens Cutter: Dr. Ramírez Body Cleaner: Dr. Strange Urologist: Dr. Geetha Limon Past History - Past Medical History Allergies/Adverse Reactions: Allergies Allergy/AdvReac Type Severity Reaction Status Date / Time pregabalin [From Lyrica] Allergy Verified 05/30/18 10:28 Home Medications: Ambulatory Orders Bimatoprost [Lumigan] 1 drop OU DAILY 12/24/16 Budesonide/Formeterol Fumarate [SYMBICORT 160/4.5mcg -] 2 inh PO BID 12/24/16 Clopidogrel Bisulfate [Plavix -] 75 mg PO DAILY 12/24/16 Rosuvastatin Calcium [Crestor] 20 mg PO HS 12/24/16 Acetaminophen [Tylenol .Regular Strength -] 650 mg PO Q4H PRN tablet 07/25/17 Albuterol 0.083% Nebulizer Fatuma [Ventolin 0.083% Nebulizer Soln -] 1 amp NEB PRN #1 amp 07/25/17 Albuterol Sulfate Inhaler - [Ventolin HFA Inhaler -] 1 - 2 inh PO QID PRN #1 inhaler 07/25/17 Carvedilol [Coreg -] 3.125 mg PO BID #60 tablet 07/25/17 Tamsulosin HCl [Flomax -] 0.4 mg PO 0830 #30 cap.er.24h 07/25/17 Venlafaxine HCl [Effexor -] 75 mg PO DAILY #30 tablet 07/25/17 Insulin Glargine,Hum.rec.anlog [Lantus] 50 unit SQ DAILY 08/08/17 Escitalopram Oxalate [Lexapro -] 20 mg PO HS 04/19/18 Furosemide [Lasix] 20 mg PO AM 04/19/18 Sacubitril/Valsartan [Entresto 24 mg-26 mg Tablet] 1 tab PO DAILY 04/19/18 Insulin Lispro [Humalog] 0 unit SQ ASDIR 05/30/18 Anemia: Yes Asthma: Yes Cancer: No (family h/o leukemia) Cardiac Disorders: Yes (4 stents) CVA: No COPD: Yes CHF: Yes Dementia: No Diabetes: Yes GI Disorders: Yes (ESOPHAGEAL DYSMOTILITY, GASTRITIS, H-PYLORI) Disorders: Yes (PROSTATE BX) HTN: Yes Hypercholesterolemia: Yes Kidney Stones: No Liver Disease: No Psychiatric Problems: No Seizures: No Thyroid Disease: No Lung CA: No - Surgical History Abdominal Surgery: Yes (PARTIAL GASTRECTOMY,H/O ULCERS EGD BIOPSY 2009,EGD H- PYLORI 2006,COLON 2003) Appendectomy: Yes Cardiac Surgery: Yes (cabg) Cholecystectomy: Yes Lung Surgery: No Neurologic Surgery: No Orthopedic Surgery: No - Family Disease History Family Disease History: Heart Disease: Father - Reproductive History Testicular Surgery: Yes - Immunization History Immunization Up to Date: Yes - Suicide/Smoking/Psychosocial Hx Smoking Status: Yes Smoking History: Former smoker Years of Tobacco Use: 50 Have you smoked in the past 12 months: No Number of Cigarettes Smoked Daily: 5 If you are a former smoker, when did you quit?: 2 weeks ago Information on smoking cessation initiated: No 'Breaking Loose' booklet given: 02/05/17 Hx Alcohol Use: No Drug/Substance Use Hx: No Substance Use Type: None Hx Substance Use Treatment: No Review of Systems - Review of Systems Comments:: 05/30/18 13:24 GENERAL/CONSTITUTIONAL: No fever or chills. No weakness. HEAD, EYES, EARS, NOSE AND THROAT: No change in vision. No ear pain or discharge. No sore throat. CARDIOVASCULAR: No chest pain, no shortness of breath, no loss of consciousness RESPIRATORY: No cough, wheezing, or hemoptysis. +GASTROINTESTINAL: LLQ pain. Nausea. Vomiting. No diarrhea or constipation. GENITOURINARY: No dysuria, frequency, or change in urination. MUSCULOSKELETAL: No joint or muscle swelling or pain. No neck or back pain. SKIN: No rash NEUROLOGIC: No vertigo, no change in strength/sensation. ENDOCRINE: No increased thirst. No abnormal weight change. HEMATOLOGIC/LYMPHATIC: No anemia, easy bleeding, or history of blood clots. ALLERGIC/IMMUNOLOGIC: No hives or skin allergy. *Physical Exam - Vital Signs Last Vital Signs Temp Pulse Resp BP Pulse Ox 97.4 F L 85 18 119/62 100 05/30/18 10:31 05/30/18 11:20 05/30/18 11:20 05/30/18 11:20 05/30/18 11:20 - Physical Exam Comments: 05/30/18 13:35 "GENERAL: Awake, alert, and fully oriented, in no acute distress. HEAD: No signs of trauma EYES: PERRLA, EOMI, sclera anicteric, conjunctiva clear ENT: Auricles normal inspection, hearing grossly normal, nares patent, oropharynx clear without exudates. Moist mucosa NECK: Nontender, no stepoffs, Normal ROM, supple, no lymphadenopathy, JVD, or masses LUNGS: Breath sounds equal, clear to auscultation bilaterally. No wheezes, and no crackles HEART: Regular rate and rhythm, normal S1 and S2, no murmurs, rubs or gallops ABDOMEN: + TTP over L inguinal canal, no palpable masses, mild erythema overlying skin, normoactive bowel sounds. No guarding, no rebound. No masses EXTREMITIES: Normal range of motion, no edema. No clubbing or cyanosis. No cords, erythema, or tenderness NEUROLOGICAL: Cranial nerves II through XII intact. 5/5 strength and sensation in all extremities, Normal speech, normal gait, normal cerebellar function SKIN: Warm, Dry, normal turgor, no rashes or lesions noted. Moderate Sedation - Procedure Monitoring Vital Signs: Procedure Monitoring Vital Signs Temperature 97.4 F L 05/30/18 10:31 Pulse Rate 85 05/30/18 11:20 Respiratory Rate 18 05/30/18 11:20 Blood Pressure 119/62 05/30/18 11:20 O2 Sat by Pulse Oximetry (%) 100 05/30/18 11:20 ED Treatment Course - LABORATORY CBC & Chemistry Diagram: 05/30/18 11:05 05/30/18 11:05 - ADDITIONAL ORDERS Additional order review: Laboratory Results 05/30/18 05/30/18 05/30/18 11:05 11:05 11:05 PT with INR Cancelled INR Cancelled PTT (Actin FS) Sodium Potassium Chloride Carbon Dioxide Anion Gap BUN Creatinine Creat Clearance w eGFR Random Glucose Calcium Total Bilirubin AST ALT Alkaline Phosphatase Troponin I < 0.02 Total Protein Albumin Lipase Blood Type A POSITIVE Antibody Screen Negative 05/30/18 05/30/18 11:05 11:05 PT with INR 11.30 INR 0.96 PTT (Actin FS) 28.0 Sodium 137 Potassium 4.8 Chloride 105 Carbon Dioxide 21 Anion Gap 11 BUN 50 H Creatinine 1.8 H Creat Clearance w eGFR 36.97 Random Glucose 334 H* Calcium 8.8 Total Bilirubin 0.8 AST 37 ALT 66 H Alkaline Phosphatase 115 Troponin I Total Protein 7.6 Albumin 3.9 Lipase 195 Blood Type Antibody Screen 05/30/18 11:05 RBC 4.80 MCV 81.8 MCHC 34.0 RDW 16.1 H MPV 7.9 Neutrophils % 91.1 H D Lymphocytes % 3.7 L D Monocytes % 4.3 Eosinophils % 0.6 Basophils % 0.3 - RADIOLOGY Radiology Studies Ordered: Category Date Time Status ABDOMEN & PELVIS CT W/O CONTR [CT] Stat CT Scan 05/30/18 13:21 Ordered - Medications Given in the ED: ED Medications Discontinued Medications Generic Name Dose Route Start Last Admin Trade Name Freq PRN Reason Stop Dose Admin Sodium Chloride 1,000 mls @ 1,000 mls/hr 05/30/18 11:00 05/30/18 11:00 Normal Saline - IV 05/30/18 11:59 1,000 mls/hr ASDIR STA Administration Ondansetron HCl 4 mg 05/30/18 11:00 05/30/18 11:22 Zofran Injection IVPUSH 05/30/18 11:01 4 mg ONCE ONE Administration Medical Decision Making - Medical Decision Making 05/30/18 13:35 77 M with L inguinal pain + vomiting. Concerning for incarcerated hernia. - Labs - CTAP - IVF, zofran 05/30/18 16:[address] shows no obstruction, no incarcerated hernia Pt reassessed - still vomiting, now complaining of worsening headache Will obtain CT head Tylenol, reglan, and fluids ordered UA consistent with UTI. Will give 1 dose ceftriaxone 05/30/18 17:23 CT Head negative Pt reassessed - continues to have N/V, inability to tolerate PO Will admit for continued IVF and abx 05/30/18 17:39 Pt admitted to hospitalist *DC/Admit/Observation/Transfer Diagnosis at time of Disposition: Abdominal pain, Nausea & vomiting, UTI (urinary tract infection) - Discharge Dispostion Decision to Admit order: Yes - Referrals - Patient Instructions - Post Discharge Activity - Attestations Physician Attestion: 05/30/18 17:40 I, Dr. Brandon Álvarez MD, attest that this document has been prepared under my direction and personally reviewed by me in its entirety. I further attest, that it accurately reflects all work, treatment, procedures and medical decision -making performed by me.
[2018-05-30 14:04] LABS: ANISOCYTOSIS 0; MACROCYTOSIS 1+; PLATELET ESTIMATE DECREASED
[2018-05-30] MEDS ORDERED: METOCLOPRAMIDE HCL INJECTION 10 MG/2 ML VIAL IVPB ONE (15:13)
[2018-05-30] MEDS ORDERED: ACETAMINOPHEN 1000 MG/100 ML VIAL (NON FORMULARY) IVPB ONE (15:13)
[2018-05-30] MEDS ORDERED: METOCLOPRAMIDE HCL INJECTION 10 MG/2 ML VIAL ONE (15:28)
[2018-05-30] MEDS ORDERED: ACETAMINOPHEN INJECTION 100 ML IVPB ONE (15:28)
[2018-05-30 15:51] LABS: URINE APPEARANCE SLCLOUDY; URINE BILIRUBIN NEGATIVE (<2.0 mg/dL); URINE COLOR YELLOW; URINE GLUCOSE (UA) 3+ (NEGATIVE); URINE KETONE NEGATIVE (NEGATIVE); URINE LEUK ESTERASE 2+ (NEGATIVE); URINE NITRITE NEGATIVE (NEGATIVE); URINE PROTEIN 2+ (NEGATIVE); URINE UROBILINOGEN NEGATIVE mg/dL (0.2-1.0)
[2018-05-30 16:03] LABS: URINE HYALINE CAST 14 /lpf; URINE MUCUS RARE
[2018-05-30] MEDS ORDERED: CEFTRIAXONE 1,000 MG in DEXTROSE 5%-WATER - 50 ML IVPB ONE (16:25)
[2018-05-30 16:40] LABS: YEAST RARE
[2018-05-30] MEDS ORDERED: CEFTRIAXONE 1 GM/50 ML BAG ONE (17:17)
--- NOTE | 2018-05-30 18:31 | EKG ---
Test Reason : Blood Pressure : / mmHG Vent. Rate : 103 BPM Atrial Rate : 103 BPM P-R Int : 214 ms QRS Dur : 114 ms QT Int : 356 ms P-R-T Axes : 094 -08 100 degrees QTc Int : 466 ms SINUS TACHYCARDIA WITH 1ST DEGREE A-V BLOCK LOW VOLTAGE QRS CANNOT RULE OUT ANTERIOR INFARCT , AGE UNDETERMINED ABNORMAL ECG WHEN COMPARED WITH ECG OF 09-AUG-2017 23:14, VENT. RATE HAS INCREASED Confirmed by VJ EGAN, RAFAEL ([id number]) on 05/30/2018 6:30:56 PM Referred By: Confirmed By:RAFAEL ZABALA MD
--- NOTE | 2018-05-30 18:37 | HP ---
CHIEF COMPLAINT: weakness/bodyaches, vomiting, LLQ abdominal pain and headaches PCP: Dr. Aguilera [employer] English Teacher: Dr. Morales Helminthology Teacher: Dr. Crowell GI: planning to follow up with Dr. Hassan Urologist Dr. Geetha Limon HISTORY OF PRESENT ILLNESS: 77 yom with PMhx of severe systolic CHF (EF 25-30%), s/p ICD, CAD s/p CABG/PCI ( last PCI 2-3 years ago), PAD s/p b/o fem-pop bypass, LE PCI with stenting,IDDM poorly controlled, Achalasia s/p Heller's myotomy, PUD s/p partial gastrectomy ( Bilroth Type II) years ago, HTN, HLD, COPD (>60 pack year smoking history), comes with myriad of symptoms. Patient reports feeling well yesterday, had his lunch, had a lot of "wheaties". Later starting feeling cold, and having headache , generalized bodyaches, weakness, this AM had 5-6 episodes of bilous non bloody vomitus, and an episode of watery diarrhea, associated with LLQ abdominal pain, transient, sharp, that resolved after coming to the ED. Describes vomiting associated with bouts of cough with clear sputum 12 point ROS done, positive for chronic cough and dysphagia with regurgitation of food (especially after eating large meals), which has been progressively worse, and is planning to follow up with Dr. Hassan. Also with chronic urinary dribbling/frequency with no recent changes. Uses pillows at night but no recent worsening orthopnea/PND, leg swelling or weight gain noted. Has poorly controlled diabetes ( attributes to dietary non compliance), blood sugar yesterday afternoon was 500s, overall stays around 200s or higher. Also feeling dizzy and weak currently with minimal oral intake since last night. Recent contact with grand son with strep throat. ER course was notable for: (1) NS 2 L x 1 (2) CT A/P neg for acute process Recent Travel: Denies PAST MEDICAL HISTORY: severe systolic CHF (EF 25-30%), s/p ICD, CAD s/p CABG/ PCI (last PCI 2-3 years ago), PAD s/p b/o fem-pop bypass, LE PCI with stenting, IDDM poorly controlled, Achalasia s/p Heller's myotomy, PUD s/p partial gastrectomy (Bilroth Type II) years ago, HTN, HLD, COPD (>60 pack year smoking history) PAST SURGICAL HISTORY: CABG, b/l fem pop bypass, heller's myotomy, partial gastrectomy (Bilroth type II), cholecystectomy, inguinal hernia repair Social History: Smoking: smoked for almost 60 years, quit a month ago, prior upto 3 PPD, recently had cut down to 1 PPD Alcohol: Denies Drugs: Denies 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, 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 , 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, independent in ADLs Family History: Reviewed and found to be non contributory Allergies pregabalin [From Lyrica] Allergy (Verified 05/30/18 10:28) HOME MEDICATIONS: Home Medications Medication Instructions Recorded Bimatoprost [Lumigan] 1 drop OU DAILY 12/24/16 Budesonide/Formeterol Fumarate 2 inh PO BID 12/24/16 [SYMBICORT 160/4.5mcg -] Clopidogrel Bisulfate [Plavix -] 75 mg PO DAILY 12/24/16 Rosuvastatin Calcium [Crestor] 20 mg PO HS 12/24/16 Acetaminophen [Tylenol .Regular 650 mg PO Q4H PRN tablet 07/25/17 Strength -] Albuterol 0.083% Nebulizer Fatuma 1 amp NEB PRN #1 amp 07/25/17 [Ventolin 0.083% Nebulizer Soln -] Albuterol Sulfate Inhaler - 1 - 2 inh PO QID PRN #1 inhaler 07/25/17 [Ventolin HFA Inhaler -] Carvedilol [Coreg -] 3.125 mg PO BID #60 tablet 07/25/17 Tamsulosin HCl [Flomax -] 0.4 mg PO 0830 #30 cap.er.24h 07/25/17 Venlafaxine HCl [Effexor -] 75 mg PO DAILY #30 tablet 07/25/17 Insulin Glargine,Hum.rec.anlog 50 unit SQ HS 08/08/17 [Lantus] Escitalopram Oxalate [Lexapro -] 20 mg PO HS 04/19/18 Furosemide [Lasix] 20 mg PO AM 04/19/18 Sacubitril/Valsartan [Entresto 24 1 tab PO DAILY 04/19/18 mg-26 mg Tablet] Insulin Lispro [Humalog] 0 unit SQ ASDIR 05/30/18 REVIEW OF SYSTEMS CONSTITUTIONAL: Absent: fever, chills, diaphoresis, generalized weakness, malaise, loss of appetite, weight change HEENT: Absent: rhinorrhea, nasal congestion, throat pain, throat swelling, difficulty swallowing, mouth swelling, ear pain, eye pain, visual changes CARDIOVASCULAR: Absent: chest pain, syncope, palpitations, irregular heart rate, lightheadedness , peripheral edema RESPIRATORY: Absent: cough, shortness of breath, dyspnea with exertion, orthopnea, wheezing, stridor, hemoptysis GASTROINTESTINAL: Absent: abdominal pain, abdominal distension, nausea, vomiting, diarrhea, constipation, melena, hematochezia GENITOURINARY: Absent: dysuria, frequency, urgency, hesitancy, hematuria, flank pain, genital pain MUSCULOSKELETAL: Absent: myalgia, arthralgia, joint swelling, back pain, neck pain SKIN: Absent: rash, itching, pallor HEMATOLOGIC/IMMUNOLOGIC: Absent: easy bleeding, easy bruising, lymphadenopathy, frequent infections ENDOCRINE: Absent: unexplained weight gain, unexplained weight loss, heat intolerance, cold intolerance NEUROLOGIC: Absent: headache, focal weakness or paresthesias, dizziness, unsteady gait, seizure, mental status changes, bladder or bowel incontinence PSYCHIATRIC: Absent: anxiety, depression, suicidal or homicidal ideation, hallucinations. PHYSICAL EXAMINATION Vital Signs - 24 hr 05/30/18 05/30/18 05/30/18 10:30 10:31 11:20 Temperature 97.4 F L Pulse Rate 109 H Pulse Rate [ 85 Right Radial] Respiratory 18 20 18 Rate Blood Pressure 124/68 Blood Pressure 119/62 [Left Arm] O2 Sat by Pulse 100 97 100 Oximetry (%) 05/30/18 15:45 Temperature 98.1 F Pulse Rate Pulse Rate [ 101 H Right Radial] Respiratory 18 Rate Blood Pressure Blood Pressure 141/64 [Left Arm] O2 Sat by Pulse 100 Oximetry (%) GENERAL: Awake, alert, and fully oriented,weak looking but in no acute distress HEAD: Normal with no signs of trauma. EYES: Pupils equal, round and reactive to light, extraocular movements intact, sclera anicteric, conjunctiva clear. No lid lag. EARS, NOSE, THROAT: Ears normal, nares patent, oropharynx clear without exudates.Moist mucous membrane NECK: Soft, supple, no JVD visualized LUNGS: Breath sounds equal, clear to auscultation bilaterally. No wheezes, and no crackles. No accessory muscle use. HEART: S1S2 regular, tachycardic ABDOMEN: Soft, nontender, not distended, normoactive bowel sounds, no guarding, no rebound, no masses. No hepatomegaly or splenomegaly appreciated, left inguinal hernia, reducible, nonwarm/non tender, midline abdominal scar MUSCULOSKELETAL: Normal range of motion at all joints. No bony deformities or tenderness. No CVA tenderness. UPPER EXTREMITIES: 2+ pulses, warm, well-perfused. No cyanosis. No clubbing. No peripheral edema. LOWER EXTREMITIES: palpable weak DP pulses, warm, well-perfused. No calf tenderness. No peripheral edema. NEUROLOGICAL: Cranial nerves II-XII intact. Normal speech. Gait observed, AAOX3 , power 5/5, sensation intact to light touch, toes downgoing, no pronator drift PSYCHIATRIC: Cooperative. Good eye contact. Appropriate mood and affect. SKIN: Warm, dry, normal turgor, no rashes or lesions noted, normal capillary refill. Laboratory Results - last 24 hr 05/30/18 05/30/18 05/30/18 11:05 11:05 11:05 WBC 11.7 H RBC 4.80 Hgb 13.4 Hct 39.3 MCV 81.8 MCH 27.8 MCHC 34.0 RDW 16.1 H Plt Count 158 MPV 7.9 Absolute Neuts (auto) 10.7 H Neutrophils % 91.1 H D Neutrophils % (Manual) 79.0 Band Neutrophils % 10.0 Lymphocytes % 3.7 L D Lymphocytes % (Manual) 0.0 L Monocytes % 4.3 Monocytes % (Manual) 6 Eosinophils % 0.6 Eosinophils % (Manual) 1.0 Basophils % 0.3 Basophils % (Manual) 0.0 Myelocytes % (Man) 0 Promyelocytes % (Man) 0 Blast Cells % (Manual) 0 Nucleated RBC % 0 Metamyelocytes 0 Hypochromia 0 Platelet Estimate Decreased Polychromasia 0 Poikilocytosis 0 Anisocytosis 0 Microcytosis 1+ Macrocytosis 1+ PT with INR 11.30 INR 0.96 PTT (Actin FS) 28.0 Sodium 137 Potassium 4.8 Chloride 105 Carbon Dioxide 21 Anion Gap 11 BUN 50 H Creatinine 1.8 H Creat Clearance w eGFR 36.97 POC Glucometer Random Glucose 334 H* Calcium 8.8 Total Bilirubin 0.8 AST 37 ALT 66 H Alkaline Phosphatase 115 Troponin I Total Protein 7.6 Albumin 3.9 Lipase 195 Urine Color Urine Appearance Urine pH Ur Specific [place] Urine Protein Urine Glucose (UA) Urine Ketones Urine Blood Urine Nitrite Urine Bilirubin Urine Urobilinogen Ur Leukocyte Esterase Urine WBC (Auto) Urine RBC (Auto) Hyaline Casts Urine Mucus Urine Yeast Blood Type Antibody Screen 05/30/18 05/30/18 05/30/18 11:05 11:05 11:05 WBC RBC Hgb Hct MCV MCH MCHC RDW Plt Count MPV Absolute Neuts (auto) Neutrophils % Neutrophils % (Manual) Band Neutrophils % Lymphocytes % Lymphocytes % (Manual) Monocytes % Monocytes % (Manual) Eosinophils % Eosinophils % (Manual) Basophils % Basophils % (Manual) Myelocytes % (Man) Promyelocytes % (Man) Blast Cells % (Manual) Nucleated RBC % Metamyelocytes Hypochromia Platelet Estimate Polychromasia Poikilocytosis Anisocytosis Microcytosis Macrocytosis PT with INR Cancelled INR Cancelled PTT (Actin FS) Sodium Potassium Chloride Carbon Dioxide Anion Gap BUN Creatinine Creat Clearance w eGFR POC Glucometer Random Glucose Calcium Total Bilirubin AST ALT Alkaline Phosphatase Troponin I < 0.02 Total Protein Albumin Lipase Urine Color Urine Appearance Urine pH Ur Specific [place] Urine Protein Urine Glucose (UA) Urine Ketones Urine Blood Urine Nitrite Urine Bilirubin Urine Urobilinogen Ur Leukocyte Esterase Urine WBC (Auto) Urine RBC (Auto) Hyaline Casts Urine Mucus Urine Yeast Blood Type A POSITIVE Antibody Screen Negative 05/30/18 05/30/18 15:25 17:41 WBC RBC Hgb Hct MCV MCH MCHC RDW Plt Count MPV Absolute Neuts (auto) Neutrophils % Neutrophils % (Manual) Band Neutrophils % Lymphocytes % Lymphocytes % (Manual) Monocytes % Monocytes % (Manual) Eosinophils % Eosinophils % (Manual) Basophils % Basophils % (Manual) Myelocytes % (Man) Promyelocytes % (Man) Blast Cells % (Manual) Nucleated RBC % Metamyelocytes Hypochromia Platelet Estimate Polychromasia Poikilocytosis Anisocytosis Microcytosis Macrocytosis PT with INR INR PTT (Actin FS) Sodium Potassium Chloride Carbon Dioxide Anion Gap BUN Creatinine Creat Clearance w eGFR POC Glucometer [id number] Random Glucose Calcium Total Bilirubin AST ALT Alkaline Phosphatase Troponin I Total Protein Albumin Lipase Urine Color Yellow Urine Appearance Slcloudy Urine pH 5.0 Ur Specific [place] 1.016 Urine Protein 2+ H Urine Glucose (UA) 3+ H Urine Ketones Negative Urine Blood Negative Urine Nitrite Negative Urine Bilirubin Negative Urine Urobilinogen Negative Ur Leukocyte Esterase 2+ H Urine WBC (Auto) 48 Urine RBC (Auto) 3 Hyaline Casts 14 Urine Mucus Rare Urine Yeast Rare Blood Type Antibody Screen CT A/P and CXR results reviewed CT head results reviewed EKG Sinus tach 100s, no acute ST-T changes. ASSESSMENT/PLAN: 77 yom with PMhx of Severe Systolic CHF (EF 25-30%), s/p ICD, CAD s/p CABG/PCI ( last PCI 2-3 years ago), PAD s/p b/o fem-pop bypass, LE PCI with stenting, IDDM poorly controlled, Achalasia s/p Heller's myotomy, PUD s/p partial gastrectomy ( Bilroth Type II) years ago, HTN, HLD, COPD (>60 pack year smoking history) admitted with weakness, dizziness, vomiting, diarrhea, headache and transient LLQ abdominal pain -Vomiting, ?viral illness, r/o achalasia related, vs gastroparesis vs from lower uncomplicated UTI -Headache/weakness/bodyaches, r/o viral illness -LLQ abdominal pain, transient, CT A/P neg for acute process -?Lower uncomplicated UTI -Severe systolic HF (EF 25-30%) -CAD s/p CABG/PCI (last PCI 2-3 years ago) -CKD stage II -PAD s/p b/l fem-pop bypass -Achalasia s/p Heller's myotomy -PUD s/p partial gastrectomy -HTN -HLD -COPD Plan: s/p 2L IVF, hold off further hydration Strict I/os, daily weights, monitor for CHF. PO clears as tolerated. Supportive treatment with zofran. Check flu swab, low suspicion. GI input and speech/swallow eval if persistent vomiting or dysphagia concerns. CT brain/a/p neg for concerns. Ceftriaxone, follow up urine cultures. Bladder scan q6h. Continue flomax asa/plavix/statin/coreg. Lantus 40 units tonight, ISS, patient on higher sliding scale at home, resume once tolerating po. Renal function at baseline. Symbicort, albuterol prn DVTPPX heparin Dispo admit to telemetry. Dispo pending clinical course Plan discussed with patient and at bedside in detail, all questions answered Total admit time 65 min. Visit type - Emergency Visit Emergency Visit: Yes Care time: The patient presented to the Emergency Department on the above date and was hospitalized for further evaluation of their emergent condition. - New Patient This patient is new to me today: Yes Date on this admission: 05/30/18 - Critical Care Critical Care patient: No
[2018-05-30] MEDS ORDERED: ONDANSETRON 4 MG/2 ML VIAL IVPUSH PRN (18:46)
[2018-05-30] MEDS ORDERED: ALBUTEROL SO4 8 GM HFA INHALER IH PRN (18:49)
[2018-05-30] MEDS ORDERED: PANTOPRAZOLE SODIUM 40 MG/100 ML BAG IVPB ONE (19:30)
[2018-05-30] MEDS: PANTOPRAZOLE SODIUM 40 MG VIAL IVPUSH SCH (19:37)
[2018-05-31] MEDS: CARVEDILOL 3.125 MG TABLET (FP) PO SCH ×3 (00:13→21:47)
[2018-05-31] MEDS: INSULIN (LEVEMIR) 100 UNITS/ML UNITS SQ SCH ×2 (00:14→21:49)
[2018-05-31] MEDS: ESCITALOPRAM OXALATE 20 MG TABLET (FP) PO SCH ×2 (00:14→21:47)
[2018-05-31] MEDS: INSULIN SLIDING SCALE (NOVOLOG) 1 VIAL SQ SCH ×5 (00:14→21:52)
[2018-05-31] MEDS: ROSUVASTATIN CA 5 MG TABLET (FP) PO SCH ×2 (00:14→22:03)
[2018-05-31] MEDS: BUDESONIDE/FORMETEROL FUMARATE 160/4.5 mcg INHALER IH SCH ×3 (00:15→21:53)
[2018-05-31 01:54] VITALS: BMI 25.5
[2018-05-31] MEDS: HEPARIN NA (PORCINE) 5,000 UNITS/ML 1ML VIAL SQ SCH ×3 (06:38→21:47)
[2018-05-31 07:40] LABS: BASO % 0.4 % (0-2.0); EOS % 0.2 % (0-4.5); HEMATOCRIT 32.7 % (35.4-49); HEMOGLOBIN 11.3 GM/dL (11.7-16.9); LYMPH % 11.4 % (8-40); MCH 28.4 pg (25.7-33.7); MCHC 34.5 g/dl (32.0-35.9); MEAN CELL VOLUME 82.2 fl (80-96); MEAN PLT VOLUME 7.6 fl (7.5-11.1); MONO % 7.1 % (3.8-10.2); NEUT % 80.9 % (42.8-82.8); PLATELET COUNT 125 K/MM3 (134-434); RBC 3.97 M/mm3 (4.00-5.60); RDW 16.2 % (11.9-15.9); WHITE BLOOD COUNT 5.3 K/mm3 (4.0-10.0)
[2018-05-31 08:00] LABS: INR 1.03 (0.83-1.09); PROTHROMBIN TIME (PATIENT) 12.2 SEC (9.7-13.0)
[2018-05-31 08:24] LABS: BLOOD UREA NITROGEN 39 mg/dL (7-18); CREATININE 1.7 mg/dL (0.55-1.3); GLUCOSE,RANDOM 124 mg/dL (74-106)
[2018-05-31 08:25] LABS: ALBUMIN 3.2 g/dl (3.4-5.0); ALK PHOS 89 U/L (45-117); ANION GAP 8 MMOL/L (8-16); BILIRUBIN,TOTAL 0.4 mg/dL (0.2-1); CALCIUM 8.4 mg/dL (8.5-10.1); CHLORIDE 110 mmol/L (98-107); CO2 23 mmol/L (21-32); MAGNESIUM 1.9 mg/dL (1.8-2.4); PHOSPHOROUS 3.3 mg/dL (2.5-4.9); POTASSIUM 4.7 mmol/L (3.5-5.1); SGOT/AST 27 U/L (15-37); SGPT/ALT 46 U/L (13-61); SODIUM 141 mmol/L (136-145); TOT PROT 6.5 g/dl (6.4-8.2)
[2018-05-31] MEDS ORDERED: FUROSEMIDE 40 MG/4 ML INJECTABLE VIAL IVPUSH ONE (08:29)
[2018-05-31] MEDS ORDERED: DEXTROSE 5%-WATER - 50 ML IVPB ONE (08:39)
[2018-05-31] MEDS ORDERED: cefTRIAXone SODIUM 1 GM VIAL ONE (08:39)
[2018-05-31] MEDS: VENLAFAXINE HCL 75 MG E.R. CAPSULES (FP) PO SCH (08:56)
[2018-05-31] MEDS: TAMSULOSIN HCL 0.4 MG CAP PO SCH (08:57)
[2018-05-31] MEDS: CEFTRIAXONE 1 GM in DEXTROSE 5%-WATER - 50 ML IVPB SCH (09:22)
[2018-05-31] MEDS: CLOPIDOGREL BISULFATE 75 MG TABLET (FP) PO SCH (09:22)
[2018-05-31] MEDS: ASPIRIN COATED 81 MG TABLET.EC PO SCH (09:23)
[2018-05-31] MEDS: PANTOPRAZOLE SODIUM 40 MG VIAL IVPUSH SCH (09:39)
--- NOTE | 2018-05-31 10:58 | CONSULT ---
Admitting History and Physical - Primary Care Physician PCP: Armida De La Torre - Admission History of Present Illness: Per EMR: 77 yom with PMhx of Severe Systolic CHF (EF 25-30%), s/p ICD, CAD s/p CABG/PCI ( last PCI 2-3 years ago), PAD s/p b/o fem-pop bypass, LE PCI with stenting, IDDM poorly controlled, Achalasia s/p Heller's myotomy, PUD s/p partial gastrectomy ( Bilroth Type II) years ago, HTN, HLD, COPD (>60 pack year smoking history) admitted with weakness, dizziness, vomiting, diarrhea, headache and transient LLQ abdominal pain -Vomiting, ?viral illness, r/o achalasia related, vs gastroparesis vs from lower uncomplicated UTI -Headache/weakness/bodyaches, r/o viral illness -LLQ abdominal pain, transient, CT A/P neg for acute process -?Lower uncomplicated UTI -Severe systolic HF (EF 25-30%) -CAD s/p CABG/PCI (last PCI 2-3 years ago) -CKD stage II -PAD s/p b/l fem-pop bypass -Achalasia s/p Heller's myotomy -PUD s/p partial gastrectomy -HTN -HLD -COPD Seen by me in 2017 with c/o food coming back up. MBS performed (-) aspiration withy normal michelle-pharyngeal swallowing function. Limited assessment of esophagus at that time. Followed by GI. UGI and CT performed. Pt reports vomiting most of the time after eating mixed with a lot of phlegm, doesn't know if he's lost weight. Upon further review, he said he mainly vomits on solids,reclines in recliner WHILE eating and after meals. History Source: Patient, Medical Record - Past Medical History Cardiovascular: Yes: CAD, CHF, AL, Other (s/p stent) Pulmonary: Yes: Asthma, COPD, Other (CA lung) Gastrointestinal: Yes: Constipation Renal/: Yes: Other (BPH) Heme/Onc: Yes: Cancer (Lung) Musculoskeletal: Yes: Chronic low back pain, Osteoarthritis - Past Surgical History Past Surgical History: Yes: Cholecystectomy - Smoking History Smoking history: Former smoker Have you smoked in the past 12 months: No Aproximately how many cigarettes per day: 5 If you are a former smoker, when did you quit?: 2 weeks ago - Alcohol/Substance Use Hx Alcohol Use: No - Social History ADL: Independent History - Admission Reason For Visit: NAUSEA AND VOMITING - Diagnostics X-ray: Report Reviewed CT Scan: Report Reviewed (chest 2018) Modified Barium Swallow: Report Reviewed (2017) Other: Report Reviewed (ugi 2018) - General Mental Status: Alert and Oriented, Awake and Alert, Able to Follow Commands, Forgetful (suspected), Vague Attention: Intact Ability to Follow Directions: Good Head/Neck Control: WFL - Hearing Hearing: Normal Speech Evaluation - Communication Primary Language: LATVIAN Communication: Yes: Within Normal Limits Oral Expression Ability: Yes: No Impairment - Speech Production Able to Make Needs Known: Yes: WNL Intelligibility: Yes: WNL - Speech Characteristics Voice Loudness: Normal Voice Pitch: Yes: Normal Voice Phonatory-based Quality: Yes: Normal Speech Pattern: Normal Speech Clarity: < 100% Nasal Resonance: Normal Articulation: Yes: Precise Rate of Speech: Intact - Language/Auditory Comprehension Follows: Yes: 2 Stage Simple Commands - Language/Verbal Expression Able to Respond to Simple Queries: Yes: WNL Able to Communicate Wants and Needs: Yes: WNL Functional Communication Status: Yes: WNL - Swallow Evaluation/Bedside Assessment Current Nutritional Intake: Regular, Thin Liquids Oral Secretions: Yes: WFL Dentition: Yes: Adequate Facial Symmetry at Rest: Symmetrical Facial Symmetry on Retraction: Symmetrical Sensation: Normal Against Resistance Opening: Normal Against Resistance Closing: Normal Pucker Lips: Normal Smile: Normal Lingual Movement: Normal, Symmetric Lingual Speed of Movement: Normal Lingual Movement Strgth Against Opposition: Normal Lingual Movement Characteristics: Normal Velopharyngeal Movement: Normal Laryngeal Elevation: WFL Laryngeal Movement: Able to Palpate Rate of Intake: WFL Bolus Size: WFL Labial Seal: WFL Chewing: WFL Oral Prep Time: WFL A-P Transit: WFL Timing of Swallow: WFL Coughing/Throat Clear: No Change in Voice: No Recommendations - Speech Evaluation, Impression/Plan Impression: Per pt's hx, he mainly vomits on solids mixesd with phlegm,reclines in recliner WHILE eating and after meals. Denies h/o PNA. R/o stasis with solids r/o dysmotility/stricture/recurrent achalasia. Reclining increases stasis/reflux/impaired emptying. - Dysphagia Impressions/Plan Swallowing Skills: Impaired Dysphagia Impressions: Risk of Aspiration, Ongoing Evaluation *Silent aspiration: cannot be R/O at bedside Dysphagia Treatment Plan: Small Bites, Safe Rate, 1/2 tsp. at a time, OOB for meals, OOB for 1 h. after meals, Other (alternate solids with liquids. Complete meal with liquid.Avoid PO intake w/in 2-3 hours of bedtime.) Recommendations: GI Consult (done), MBS w Esophagus - Recommendations Diet Consistency: Dysphagia Minced Medication Administration: Crushed with applesauce Liquids: Thin Liquids
--- NOTE | 2018-05-31 11:19 | PN ---
Teaching Attending Note Name of Resident: Ainsley Jain ATTENDING PHYSICIAN STATEMENT I saw and evaluated the patient. I reviewed the resident's note and discussed the case with the resident. I agree with the resident's findings and plan as documented with exceptions below. SUBJECTIVE: Patient seen and examined. No further vomiting or diarrhea. Denies any dyspnea. Abdominal pain improved. Reports some gagging/choking with PO intake, unchanged from prior. OBJECTIVE: Vital Signs Period Temp Pulse Resp BP Sys/Garcia Pulse Ox Last 24 Hr 98.1 F-99.4 F 82-101 18-20 110-141/55-67 99-100 Intake & Output 05/28/18 05/29/18 05/30/18 05/31/18 23:59 23:59 23:59 23:59 Intake Total 2100 Output Total 330 200 Balance 1770 -200 Weight 183 lb 3.2 oz 181 lb 6.4 oz General: sitting in bed in no acute distress Neck: soft, supple, no JVD chest: good air entry bilaterally, no rales or wheezing Abdomen:soft, NT,ND, positive bowel sounds Extremities: no edema Home Medications Medication Instructions Recorded Bimatoprost [Lumigan] 1 drop OU DAILY 12/24/16 Budesonide/Formeterol Fumarate 2 inh PO BID 12/24/16 [SYMBICORT 160/4.5mcg -] Clopidogrel Bisulfate [Plavix -] 75 mg PO DAILY 12/24/16 Rosuvastatin Calcium [Crestor] 20 mg PO HS 12/24/16 Acetaminophen [Tylenol .Regular 650 mg PO Q4H PRN tablet 07/25/17 Strength -] Albuterol 0.083% Nebulizer Fatuma 1 amp NEB PRN #1 amp 07/25/17 [Ventolin 0.083% Nebulizer Soln -] Albuterol Sulfate Inhaler - 1 - 2 inh PO QID PRN #1 inhaler 07/25/17 [Ventolin HFA Inhaler -] Carvedilol [Coreg -] 3.125 mg PO BID #60 tablet 07/25/17 Tamsulosin HCl [Flomax -] 0.4 mg PO 0830 #30 cap.er.24h 07/25/17 Venlafaxine HCl [Effexor -] 75 mg PO DAILY #30 tablet 07/25/17 Insulin Glargine,Hum.rec.anlog 50 unit SQ HS 08/08/17 [Lantus] Escitalopram Oxalate [Lexapro -] 20 mg PO HS 04/19/18 Furosemide [Lasix] 20 mg PO AM 04/19/18 Sacubitril/Valsartan [Entresto 24 1 tab PO DAILY 04/19/18 mg-26 mg Tablet] Insulin Lispro [Humalog] 0 unit SQ ASDIR 05/30/18 Bimatoprost [Lumigan] 1 drop IO DAILY 05/31/18 Active Medications Albuterol Sulfate (Ventolin Hfa Inhaler -) 2 puff IH Q4H PRN PRN Reason: SHORT OF BREATH/WHEEZING Aspirin (Ecotrin -) 81 mg PO DAILY [facility] Last Admin: 05/31/18 09:23 Dose: 81 mg Budesonide/Formoterol Fumarate (Symbicort 160/4.5mcg -) 2 puff IH BID [facility] Last Admin: 05/31/18 09:23 Dose: 2 puff Carvedilol (Coreg -) 3.125 mg PO BID [facility] Last Admin: 05/31/18 09:22 Dose: 3.125 mg Clopidogrel Bisulfate (Plavix -) 75 mg PO DAILY [facility] Last Admin: 05/31/18 09:22 Dose: 75 mg Escitalopram Oxalate (Lexapro -) 20 mg PO HS [facility] Last Admin: 05/31/18 00:14 Dose: 20 mg Heparin Sodium (Porcine) (Heparin -) 5,000 unit SQ TID [facility] Last Admin: 05/31/18 06:38 Dose: 5,000 unit Ceftriaxone Sodium 1 gm/ (Dextrose) 50 mls @ 100 mls/hr IVPB DAILY [facility]; Protocol Last Admin: 05/31/18 09:22 Dose: 100 mls/hr Insulin Aspart (Novolog Vial Sliding Scale -) 1 vial SQ ACHS [facility]; Protocol Last Admin: 05/31/18 06:38 Dose: Not Given Insulin Detemir (Levemir Vial) [address] [facility] Last Admin: 05/31/18 00:14 Dose: 40 units Latanoprost (Xalatan 0.005% Eye Drops -) 1 drop OU HS [facility] Ondansetron HCl (Zofran Injection) 4 mg IVPUSH Q6H PRN PRN Reason: NAUSEA AND/OR VOMITING Last Admin: 05/31/18 00:18 Dose: 4 mg Pantoprazole Sodium (Protonix Iv) 40 mg IVPUSH DAILY [facility] Last Admin: 05/31/18 09:39 Dose: 40 mg Rosuvastatin Calcium (Crestor -) 5 mg PO HS [facility] Last Admin: 05/31/18 00:14 Dose: 5 mg Tamsulosin HCl (Flomax -) 0.4 mg PO DAILY@0830 [facility] Last Admin: 05/31/18 08:57 Dose: 0.4 mg Venlafaxine HCl (Effexor Xr -) 75 mg PO DAILY@0800 [facility] Last Admin: 05/31/18 08:56 Dose: 75 mg Laboratory Results - last 24 hr 05/30/18 05/30/18 05/30/18 11:05 11:05 11:05 WBC 11.7 H RBC 4.80 Hgb 13.4 Hct 39.3 MCV 81.8 MCH 27.8 MCHC 34.0 RDW 16.1 H Plt Count 158 MPV 7.9 Absolute Neuts (auto) 10.7 H Neutrophils % 91.1 H D Neutrophils % (Manual) 79.0 Band Neutrophils % 10.0 Lymphocytes % 3.7 L D Lymphocytes % (Manual) 0.0 L Monocytes % 4.3 Monocytes % (Manual) 6 Eosinophils % 0.6 Eosinophils % (Manual) 1.0 Basophils % 0.3 Basophils % (Manual) 0.0 Myelocytes % (Man) 0 Promyelocytes % (Man) 0 Blast Cells % (Manual) 0 Nucleated RBC % 0 Metamyelocytes 0 Hypochromia 0 Platelet Estimate Decreased Polychromasia 0 Poikilocytosis 0 Anisocytosis 0 Microcytosis 1+ Macrocytosis 1+ PT with INR 11.30 INR 0.96 PTT (Actin FS) 28.0 Sodium 137 Potassium 4.8 Chloride 105 Carbon Dioxide 21 Anion Gap 11 BUN 50 H Creatinine 1.8 H Creat Clearance w eGFR 36.97 POC Glucometer Random Glucose 334 H* Hemoglobin A1c % Calcium 8.8 Phosphorus Magnesium Total Bilirubin 0.8 AST 37 ALT 66 H Alkaline Phosphatase 115 Troponin I Total Protein 7.6 Albumin 3.9 Lipase 195 Urine Color Urine Appearance Urine pH Ur Specific [place] Urine Protein Urine Glucose (UA) Urine Ketones Urine Blood Urine Nitrite Urine Bilirubin Urine Urobilinogen Ur Leukocyte Esterase Urine WBC (Auto) Urine RBC (Auto) Hyaline Casts Urine Mucus Urine Yeast Influenza A (Rapid) Influenza B (Rapid) Blood Type Antibody Screen 05/30/18 05/30/18 05/30/18 11:05 11:05 11:05 WBC RBC Hgb Hct MCV MCH MCHC RDW Plt Count MPV Absolute Neuts (auto) Neutrophils % Neutrophils % (Manual) Band Neutrophils % Lymphocytes % Lymphocytes % (Manual) Monocytes % Monocytes % (Manual) Eosinophils % Eosinophils % (Manual) Basophils % Basophils % (Manual) Myelocytes % (Man) Promyelocytes % (Man) Blast Cells % (Manual) Nucleated RBC % Metamyelocytes Hypochromia Platelet Estimate Polychromasia Poikilocytosis Anisocytosis Microcytosis Macrocytosis PT with INR Cancelled INR Cancelled PTT (Actin FS) Sodium Potassium Chloride Carbon Dioxide Anion Gap BUN Creatinine Creat Clearance w eGFR POC Glucometer Random Glucose Hemoglobin A1c % Calcium Phosphorus Magnesium Total Bilirubin AST ALT Alkaline Phosphatase Troponin I < 0.02 Total Protein Albumin Lipase Urine Color Urine Appearance Urine pH Ur Specific [place] Urine Protein Urine Glucose (UA) Urine Ketones Urine Blood Urine Nitrite Urine Bilirubin Urine Urobilinogen Ur Leukocyte Esterase Urine WBC (Auto) Urine RBC (Auto) Hyaline Casts Urine Mucus Urine Yeast Influenza A (Rapid) Influenza B (Rapid) Blood Type A POSITIVE Antibody Screen Negative 05/30/18 05/30/18 05/30/18 15:25 17:41 18:14 WBC RBC Hgb Hct MCV MCH MCHC RDW Plt Count MPV Absolute Neuts (auto) Neutrophils % Neutrophils % (Manual) Band Neutrophils % Lymphocytes % Lymphocytes % (Manual) Monocytes % Monocytes % (Manual) Eosinophils % Eosinophils % (Manual) Basophils % Basophils % (Manual) Myelocytes % (Man) Promyelocytes % (Man) Blast Cells % (Manual) Nucleated RBC % Metamyelocytes Hypochromia Platelet Estimate Polychromasia Poikilocytosis Anisocytosis Microcytosis Macrocytosis PT with INR INR PTT (Actin FS) Sodium Potassium Chloride Carbon Dioxide Anion Gap BUN Creatinine Creat Clearance w eGFR POC Glucometer [phone] Random Glucose Hemoglobin A1c % Calcium Phosphorus Magnesium Total Bilirubin AST ALT Alkaline Phosphatase Troponin I 0.02 Total Protein Albumin Lipase Urine Color Yellow Urine Appearance Slcloudy Urine pH 5.0 Ur Specific [place] 1.016 Urine Protein 2+ H Urine Glucose (UA) 3+ H Urine Ketones Negative Urine Blood Negative Urine Nitrite Negative Urine Bilirubin Negative Urine Urobilinogen Negative Ur Leukocyte Esterase 2+ H Urine WBC (Auto) 48 Urine RBC (Auto) 3 Hyaline Casts 14 Urine Mucus Rare Urine Yeast Rare Influenza A (Rapid) Influenza B (Rapid) Blood Type Antibody Screen 05/31/18 05/31/18 05/31/18 00:01 00:02 06:35 WBC RBC Hgb Hct MCV MCH MCHC RDW Plt Count MPV Absolute Neuts (auto) Neutrophils % Neutrophils % (Manual) Band Neutrophils % Lymphocytes % Lymphocytes % (Manual) Monocytes % Monocytes % (Manual) Eosinophils % Eosinophils % (Manual) Basophils % Basophils % (Manual) Myelocytes % (Man) Promyelocytes % (Man) Blast Cells % (Manual) Nucleated RBC % Metamyelocytes Hypochromia Platelet Estimate Polychromasia Poikilocytosis Anisocytosis Microcytosis Macrocytosis PT with INR INR PTT (Actin FS) Sodium Potassium Chloride Carbon Dioxide Anion Gap BUN Creatinine Creat Clearance w eGFR POC Glucometer 209 138 Random Glucose Hemoglobin A1c % Calcium Phosphorus Magnesium Total Bilirubin AST ALT Alkaline Phosphatase Troponin I Total Protein Albumin Lipase Urine Color Urine Appearance Urine pH Ur Specific [place] Urine Protein Urine Glucose (UA) Urine Ketones Urine Blood Urine Nitrite Urine Bilirubin Urine Urobilinogen Ur Leukocyte Esterase Urine WBC (Auto) Urine RBC (Auto) Hyaline Casts Urine Mucus Urine Yeast Influenza A (Rapid) Negative Influenza B (Rapid) Negative Blood Type Antibody Screen 05/31/18 05/31/18 05/31/18 06:48 06:48 06:48 WBC 5.3 RBC 3.97 L Hgb 11.3 L Hct 32.7 L D MCV 82.2 MCH 28.4 MCHC 34.5 RDW 16.2 H Plt Count 125 L D MPV 7.6 Absolute Neuts (auto) 4.3 Neutrophils % 80.9 Neutrophils % (Manual) Band Neutrophils % Lymphocytes % 11.4 D Lymphocytes % (Manual) Monocytes % 7.1 Monocytes % (Manual) Eosinophils % 0.2 Eosinophils % (Manual) Basophils % 0.4 Basophils % (Manual) Myelocytes % (Man) Promyelocytes % (Man) Blast Cells % (Manual) Nucleated RBC % 0 Metamyelocytes Hypochromia Platelet Estimate Polychromasia Poikilocytosis Anisocytosis Microcytosis Macrocytosis PT with INR 12.20 INR 1.03 PTT (Actin FS) Sodium 141 Potassium 4.7 Chloride 110 H Carbon Dioxide 23 Anion Gap 8 BUN 39 H Creatinine 1.7 H Creat Clearance w eGFR 39.49 POC Glucometer Random Glucose 124 H Hemoglobin A1c % Calcium 8.4 L Phosphorus 3.3 Magnesium 1.9 Total Bilirubin 0.4 AST 27 ALT 46 Alkaline Phosphatase 89 Troponin I Total Protein 6.5 Albumin 3.2 L Lipase Urine Color Urine Appearance Urine pH Ur Specific [place] Urine Protein Urine Glucose (UA) Urine Ketones Urine Blood Urine Nitrite Urine Bilirubin Urine Urobilinogen Ur Leukocyte Esterase Urine WBC (Auto) Urine RBC (Auto) Hyaline Casts Urine Mucus Urine Yeast Influenza A (Rapid) Influenza B (Rapid) Blood Type Antibody Screen 05/31/18 06:48 WBC RBC Hgb Hct MCV MCH MCHC RDW Plt Count MPV Absolute Neuts (auto) Neutrophils % Neutrophils % (Manual) Band Neutrophils % Lymphocytes % Lymphocytes % (Manual) Monocytes % Monocytes % (Manual) Eosinophils % Eosinophils % (Manual) Basophils % Basophils % (Manual) Myelocytes % (Man) Promyelocytes % (Man) Blast Cells % (Manual) Nucleated RBC % Metamyelocytes Hypochromia Platelet Estimate Polychromasia Poikilocytosis Anisocytosis Microcytosis Macrocytosis PT with INR INR PTT (Actin FS) Sodium Potassium Chloride Carbon Dioxide Anion Gap BUN Creatinine Creat Clearance w eGFR POC Glucometer Random Glucose Hemoglobin A1c % 8.0 H Calcium Phosphorus Magnesium Total Bilirubin AST ALT Alkaline Phosphatase Troponin I Total Protein Albumin Lipase Urine Color Urine Appearance Urine pH Ur Specific [place] Urine Protein Urine Glucose (UA) Urine Ketones Urine Blood Urine Nitrite Urine Bilirubin Urine Urobilinogen Ur Leukocyte Esterase Urine WBC (Auto) Urine RBC (Auto) Hyaline Casts Urine Mucus Urine Yeast Influenza A (Rapid) Influenza B (Rapid) Blood Type Antibody Screen ASSESSMENT AND PLAN: 77 yom with PMhx of Severe Systolic CHF (EF 25-30%), s/p ICD, CAD s/p CABG/PCI ( last PCI 2-3 years ago), PAD s/p b/o fem-pop bypass, LE PCI with stenting, IDDM poorly controlled, Achalasia s/p Heller's myotomy, PUD s/p partial gastrectomy ( Bilroth Type II) years ago, HTN, HLD, COPD (>60 pack year smoking history) admitted with weakness, dizziness, vomiting, diarrhea, headache and transient LLQ abdominal pain -Vomiting, ?Viral illness, r/o achalasia related, vs gastroparesis vs from lower uncomplicated UTI -Headache/weakness/bodyaches, improved, ?Viral illness vs UTI -LLQ abdominal pain, transient, CT A/P neg for acute process -?Lower Uncomplicated UTI -Severe systolic HF (EF 25-30%) -CAD s/p CABG/PCI (last PCI 2-3 years ago) -CKD stage II -PAD s/p b/l fem-pop bypass -Achalasia s/p Heller's myotomy -PUD s/p Partial Gastrectomy -HTN -HLD -COPD Plan: Ceftriaxone day 2, follow up urine cx. Symptoms improved. Influenza screen neg. No further vomiting, but reports gagging/choking on breakfast, which has been ongoing concern prior to admission. GI input Dr. Hassan. Speech/swallow eval. Lasix 20 mg IV x 1. Resume PO Lasix in 24 hours if tolerating diet well. Strict I/os and daily weights. Avoid additional IVF for now. CT brain/a/p neg for concerns. No concerns for retention, continue flomax. asa/plavix/statin/coreg. Lantus 40 units hs, ISS, patient on higher sliding scale at home, resume once tolerating po. Renal function at baseline. Symbicort, albuterol prn DVTPPX heparin Dispo pending clinical improvement. PT eval and CM consult for d/c planning in 24-48 hours pending symptom improvement, urine cx and GI/speech/swallow input.
--- NOTE | 2018-05-31 12:05 | PN ---
Physical Exam: SUBJECTIVE: Patient seen and examined by me at bedside. No acute events overnight Abdominal pain improved and no vomiting or diarrhea. Still reports choking with PO intake Otherwise, no fevers, chills, nausea, vomiting, chest pain, palpitations, shortness of breath, urinary symptoms OBJECTIVE: Vital Signs Period Temp Pulse Resp BP Sys/Garcia Pulse Ox Last 24 Hr 98.1 F-99.4 F 79-101 18-20 110-141/55-78 99-100 GENERAL: The patient is awake, alert, in no acute distress. EYES: Sclera anicteric, conjunctiva clear. No ptosis. ENT: Moist mucous membranes. LUNGS: Breath sounds equal, clear to auscultation bilaterally, no wheezes, no crackles, no accessory muscle use. HEART: Regular rate and rhythm, S1, S2 without murmur, rub or gallop. ABDOMEN: Soft, nontender, nondistended, normoactive bowel sounds EXTREMITIES: No edema. Laboratory Results 05/31/18 06:48 05/31/18 06:48 Active Medications Generic Name Dose Route Start Last Admin Trade Name Freq PRN Reason Stop Dose Admin Albuterol Sulfate 2 puff 05/30/18 18:49 Ventolin Hfa Inhaler - IH Q4H PRN SHORT OF BREATH/WHEEZING Aspirin 81 mg 05/31/18 10:00 05/31/18 09:23 Ecotrin - PO 81 mg DAILY [facility] Administration Budesonide/Formoterol Fumarate 2 puff 05/30/18 22:00 05/31/18 09:23 Symbicort 160/4.5mcg - IH 2 puff BID [facility] Administration Carvedilol 3.125 mg 05/30/18 22:00 05/31/18 09:22 Coreg - PO 3.125 mg BID [facility] Administration Clopidogrel Bisulfate 75 mg 05/31/18 10:00 05/31/18 09:22 Plavix - PO 75 mg DAILY [facility] Administration Escitalopram Oxalate 20 mg 05/30/18 22:00 05/31/18 00:14 Lexapro - PO 20 mg HS [facility] Administration Heparin Sodium (Porcine) 5,000 unit 05/31/18 06:00 05/31/18 06:38 Heparin - SQ 5,000 unit TID [facility] Administration Ceftriaxone Sodium 1 gm/ 50 mls @ 100 mls/hr 05/31/18 10:00 05/31/18 09:22 Dextrose IVPB 100 mls/hr DAILY [facility] Administration Protocol Insulin Aspart 1 vial 05/30/18 22:00 05/31/18 06:38 Novolog Vial Sliding Scale - SQ Not Given ACHS [facility] Protocol Insulin Detemir 40 units 05/30/18 22:00 05/31/18 00:14 Levemir Vial SQ 40 units HS [facility] Administration Latanoprost 1 drop 05/31/18 22:00 Xalatan 0.005% Eye Drops - OU HS [facility] Ondansetron HCl 4 mg 05/30/18 18:46 05/31/18 00:18 Zofran Injection IVPUSH 4 mg Q6H PRN Administration NAUSEA AND/OR VOMITING Pantoprazole Sodium 40 mg 05/30/18 19:00 05/31/18 09:39 Protonix Iv IVPUSH 40 mg DAILY [facility] Administration Rosuvastatin Calcium 5 mg 05/30/18 22:00 05/31/18 00:14 Crestor - PO 5 mg HS [facility] Administration Tamsulosin HCl 0.4 mg 05/31/18 08:30 05/31/18 08:57 Flomax - PO 0.4 mg DAILY@0830 [facility] Administration Venlafaxine HCl 75 mg 05/31/18 08:00 05/31/18 08:56 Effexor Xr - PO 75 mg DAILY@0800 [facility] Administration ASSESSMENT/PLAN: Patient is a 77 year old male with a PMHx of Systolic CHF, CAD s/p ICD/CABG,PCI , PAD s/p b/o fem-pop bypass, LE PCI with stenting, IDDM poorly controlled, Achalasia s/p Heller's myotomy, PUD s/p partial gastrectomy (Bilroth Type II) years ago, HTN, HLD, COPD who presented here for weakness, diarrhea and abdominal pain. Patient admitted for further monitoring and management. Vomiting and Diarrhea -Possibly secondary to achalasia vs gastroparesis vs Viral illness -Symptoms improving. -Flu negative -Continue IB abx with Ceftriaxone 1gm -No further episodes today LLQ Abdominal Pain -CT A/P negative for a cute process -Able to tolerate PO today -Continue to monitor Lower UTI -Continue Ceftriaxone 1gm daily -Urine cultures pending Severe Systolic CHF -Lasix x1 given with UOP and decrease weight from yesterday -Continue Coreg 3.125mg BID -On no DANIELLE/ARB due to CKD -Daily weights -Strict I&O's #Achalasia S/P Heller's Myotomy -Speech and swallow eval with dysphagia diet -GI consult placed -No further vomiting, but reports gagging/choking with PO PUD s/p Partial Gastrectomy -Continue Protonix 40mg IV daily CAD s/p CABG/PCI -Continue ASA -Continue Plavix -Continue BB -Continue Crestor CKD II -At baseline renal function -Avoid nephrotoxic medications PAD s/p b/l fem-pop bypass -Continue ASA and Plavix IDDMII -Continue Lantus 40units HS -ISS -BGM HLD -Continue Crestor COPD -No acute exacerbation -Symbicort -Albuterol PRN BPH -Continue Flomax F/E/N -No fluids -Electrolytes wnl -Dysphagia puree Prophylaxis -Heparin sq TID for DVT -Protonix 40mg IVP daily for GI Disposition -Full code -PT eval. Urine cultures pending Ainsley Jain [id number] Visit type - Emergency Visit Emergency Visit: Yes ED Registration Date: 05/30/18 Care time: The patient presented to the Emergency Department on the above date and was hospitalized for further evaluation of their emergent condition. - New Patient This patient is new to me today: Yes Date on this admission: 05/31/18 - Critical Care Critical Care patient: No
--- NOTE | 2018-05-31 12:10 | CON.GI ---
Consult Consult Specialty:: GI Referred by:: Hospitalist Service Reason for Consultation:: Dysphagia - History of Present Illness Chief Complaint: "I wasn't feeling good" History of Present Illness: 77M admitted through [facility] ER for evaluation of left groin pain, N/V. CT scan of the A/P was unrevealing. Blood glucose on admission was 324. Asked to evaluate dysphagia. he states that when he eats solids he chokes. He points towards his throat when asked to localize his complaints. He was followed by Dr. Avinash Lyons. He last performed EGD 07/24 that revealed a B II anastamosis, food residue in the gastric body, 2 cm sliding hiatal hernia and small amount of residual food seen at the distal esophagus and in hiatal hernia. Colonoscopy was performed 11/23. It revealed a tortuous colon and led to the removal of adenomatous polyps. Dr. Lyons advised small portioned meals. Mr. Gates carries with him a diagnosis of achalasia as well but he is uncertain who diagnosed this with him. In terms of dietary habits, he does not follow any particular dietary modification regimen. he eats indiscriminantly and eats laying down at times. He does not know if he has lost any weight. I had seen him once in the office 09/25. At that time he was being evaluated for defibibrilator placement given his poor cardiac status. UGIS at that time revealed teritiary contractions in the distal esophagus, a sliding hiatal hernia and no change from 2016. he denies any change in bowel habits. - History Source History Provided By: Patient, Medical Record - Past Medical History Cardio/Vascular: Yes: CAD, CHF, ID, Other (s/p stent) Pulmonary: Yes: Asthma, COPD, Other (CA lung) Gastrointestinal: Yes: Constipation, Other (? h/o achalasia) Renal/: Yes: BPH, Other (BPH) Musculoskeletal: Yes: Chronic low back pain, Osteoarthritis - Past Surgical History Past Surgical History: Yes: Cholecystectomy, Permanent Pacemaker (ICD) Additional Surgical History: Cardiac stenting x 4, CABG, B/L LE vascular stents , inguinal hernia repair, partial gastrectomy secondary to PUD, Cholecystectomy , question of myotomy secondary to achalasia. - Alcohol/Substance Use Hx Alcohol Use: Yes (prior heavy use) History of Substance Use: reports: None - Smoking History Smoking history: Former smoker Have you smoked in the past 12 months: No Aproximately how many cigarettes per day: 5 If you are a former smoker, when did you quit?: 2 weeks ago - Social History Usual Living Arrangement: With Spouse ADL: Independent Occupation: retired: worked for [email or web address] Place of : [facility] History of Recent Travel: No Home Medications - Allergies Allergies/Adverse Reactions: Allergies Allergy/AdvReac Type Severity Reaction Status Date / Time pregabalin [From Lyrica] Allergy Verified 05/30/18 10:28 - Home Medications Home Medications: Ambulatory Orders Bimatoprost [Lumigan] 1 drop OU DAILY 12/24/16 Budesonide/Formeterol Fumarate [SYMBICORT 160/4.5mcg -] 2 inh PO BID 12/24/16 Clopidogrel Bisulfate [Plavix -] 75 mg PO DAILY 12/24/16 Rosuvastatin Calcium [Crestor] 20 mg PO HS 12/24/16 Acetaminophen [Tylenol .Regular Strength -] 650 mg PO Q4H PRN tablet 07/25/17 Albuterol 0.083% Nebulizer Fatuma [Ventolin 0.083% Nebulizer Soln -] 1 amp NEB PRN #1 amp 07/25/17 Albuterol Sulfate Inhaler - [Ventolin HFA Inhaler -] 1 - 2 inh PO QID PRN #1 inhaler 07/25/17 Carvedilol [Coreg -] 3.125 mg PO BID #60 tablet 07/25/17 Tamsulosin HCl [Flomax -] 0.4 mg PO 0830 #30 cap.er.24h 07/25/17 Venlafaxine HCl [Effexor -] 75 mg PO DAILY #30 tablet 07/25/17 Insulin Glargine,Hum.rec.anlog [Lantus] 50 unit SQ HS 08/08/17 Escitalopram Oxalate [Lexapro -] 20 mg PO HS 04/19/18 Furosemide [Lasix] 20 mg PO AM 04/19/18 Sacubitril/Valsartan [Entresto 24 mg-26 mg Tablet] 1 tab PO DAILY 04/19/18 Insulin Lispro [Humalog] 0 unit SQ ASDIR 05/30/18 Bimatoprost [Lumigan] 1 drop IO DAILY 05/31/18 Family Disease History - Family Disease History Family Disease History: Other: Father (: 87:: CAD), Mother (: 60: unclear intraabdominal cancer), Brother (6: 1 from leukemia, 1 was shot, 1 had a CVA), Sister (4), Son (1, healthy), Daughter (1, healthy) Other Family History: Niece x 2 w/ colon cancer Review of Systems - Review of Systems Constitutional: denies: Fever Cardiovascular: denies: Chest Pain Respiratory: denies: Cough, SOB Gastrointestinal: reports: Dysphagia, Nausea (resolved), Vomiting. denies: Abdominal Pain, Bloating, Constipation, Diarrhea, Indigestion, Melena Physical Exam-GI Vital Signs: Vital Signs Temperature 98.9 F 05/31/18 10:00 Pulse Rate 79 05/31/18 10:00 Respiratory Rate 20 05/31/18 10:00 Blood Pressure 125/78 05/31/18 10:00 O2 Sat by Pulse Oximetry (%) 99 05/31/18 09:00 Constitutional: Yes: Calm Eyes: No: Sclera Icterus Cardiovascular: Yes: Regular Rate and Rhythm Respiratory: Yes: CTA Bilaterally Gastrointestinal Inspection: Yes: Scars (midline vertical upper abdominal surgical scar) ...Auscultate: Yes: Normoactive Bowel Sounds ...Palpate: Yes: Soft. No: Hepatomegaly, Splenomegaly, Tenderness ...Percussion: No: Tympanitic Edema: No (No LE edema) Neurological: Yes: Alert Labs: CBC, BMP 05/31/18 06:48 05/31/18 06:48 INR, PTT INR 1.03 (0.83-1.09) 05/31/18 06:48 Imaging - Results Cat Scan: Report Reviewed Assessment/Plan Dysphagia and vomitin. Has history of ? achalasia 2. Is diabetic with fluctuating glycemic control 3. Does not follow dysphagia type diet 4. Retained food noted on prior EGG raising ? of gastroparesis Plan: Agree with S/S eval. Patient needs dietary modifications: eat upright, small portioned, well chewed, minced dysphagia diabetic diet, avoid laying down for 3 hours after eating. Can arrange follow-up with motility specialist given prior history of achalasia : Dr. Yung Aponte from [facility]: [phone]. Explained to Mr. Gates. Can follow-up to discuss risks/benefits of repeat colonoscopy when acute issues are resolved. h/o colon polyps however multiple other medical problems. For modified barium swallow tomorrow
[2018-05-31] MEDS ORDERED: LATANOPROST 0.005% OPHTH SOLN 2.5ML BOTTLE OU SCH (22:00)
[2018-06-01] MEDS: HEPARIN NA (PORCINE) 5,000 UNITS/ML 1ML VIAL SQ SCH ×2 (06:26→14:36)
[2018-06-01] MEDS: INSULIN SLIDING SCALE (NOVOLOG) 1 VIAL SQ SCH ×2 (06:26→11:22)
[2018-06-01 07:08] LABS: HEMATOCRIT 30.7 % (35.4-49); HEMOGLOBIN 10.5 GM/dL (11.7-16.9); MCH 27.9 pg (25.7-33.7); MCHC 34.1 g/dl (32.0-35.9); MEAN CELL VOLUME 81.9 fl (80-96); MEAN PLT VOLUME 7.8 fl (7.5-11.1); PLATELET COUNT 106 K/MM3 (134-434); RBC 3.75 M/mm3 (4.00-5.60); RDW 16.5 % (11.9-15.9); WHITE BLOOD COUNT 3.5 K/mm3 (4.0-10.0)
[2018-06-01 07:39] LABS: ANION GAP 6 MMOL/L (8-16); BLOOD UREA NITROGEN 33 mg/dL (7-18); CALCIUM 8.5 mg/dL (8.5-10.1); CHLORIDE 110 mmol/L (98-107); CO2 25 mmol/L (21-32); CREATININE 1.4 mg/dL (0.55-1.3); GLUCOSE,RANDOM 66 mg/dL (74-106); POTASSIUM 4.9 mmol/L (3.5-5.1); SODIUM 142 mmol/L (136-145)
[2018-06-01] MEDS ORDERED: PT OWN MED DRAWER 7, Y5N ONE (08:40)
[2018-06-01] MEDS: ASPIRIN COATED 81 MG TABLET.EC PO SCH (09:25)
[2018-06-01] MEDS: VENLAFAXINE HCL 75 MG E.R. CAPSULES (FP) PO SCH (09:25)
[2018-06-01] MEDS: CLOPIDOGREL BISULFATE 75 MG TABLET (FP) PO SCH (09:25)
[2018-06-01] MEDS: CARVEDILOL 3.125 MG TABLET (FP) PO SCH (09:25)
[2018-06-01] MEDS: TAMSULOSIN HCL 0.4 MG CAP PO SCH (09:25)
[2018-06-01] MEDS: BUDESONIDE/FORMETEROL FUMARATE 160/4.5 mcg INHALER IH SCH (09:26)
[2018-06-01] MEDS ORDERED: FUROSEMIDE 40 MG TABLET (FP) PO SCH (10:00)
--- NOTE | 2018-06-01 10:05 | PN ---
Teaching Attending Note Name of Resident: Ainsley Jain ATTENDING PHYSICIAN STATEMENT I saw and evaluated the patient. I reviewed the resident's note and discussed the case with the resident. I agree with the resident's findings and plan as documented with exceptions below. SUBJECTIVE: Patient seen and examined. Denies any nausea, vomiting. Reports some diarrhea yesterday ( no reports per nursing). NO chest pain, dyspnea, dizziness or new concerns. Currently denies any abdominal pain or urinary symptoms. OBJECTIVE: Vital Signs Period Temp Pulse Resp BP Sys/Garcia Pulse Ox Last 24 Hr 97.8 F-99 F 67-81 20-20 106-153/49-74 99-99 Intake & Output 05/29/18 05/30/18 05/31/18 06/01/18 23:59 23:59 23:59 23:59 Intake Total 2100 480 Output Total 330 200 Balance 1770 280 Weight 183 lb 3.2 oz 181 lb 6.4 oz 180 lb 6.4 oz General: sitting in bed in no acute distress Chest: CTAB, no rales or wheezing Abdomen:Soft, NT throughout, ND, positive bowel sounds Extremities: trace pedal edema Home Medications Medication Instructions Recorded Bimatoprost [Lumigan] 1 drop OU DAILY 12/24/16 Budesonide/Formeterol Fumarate 2 inh PO BID 12/24/16 [SYMBICORT 160/4.5mcg -] Clopidogrel Bisulfate [Plavix -] 75 mg PO DAILY 12/24/16 Rosuvastatin Calcium [Crestor] 20 mg PO HS 12/24/16 Acetaminophen [Tylenol .Regular 650 mg PO Q4H PRN tablet 07/25/17 Strength -] Albuterol 0.083% Nebulizer Fatuma 1 amp NEB PRN #1 amp 07/25/17 [Ventolin 0.083% Nebulizer Soln -] Albuterol Sulfate Inhaler - 1 - 2 inh PO QID PRN #1 inhaler 07/25/17 [Ventolin HFA Inhaler -] Carvedilol [Coreg -] 3.125 mg PO BID #60 tablet 07/25/17 Tamsulosin HCl [Flomax -] 0.4 mg PO 0830 #30 cap.er.24h 07/25/17 Venlafaxine HCl [Effexor -] 75 mg PO DAILY #30 tablet 03/17/18 Insulin Glargine,Hum.rec.anlog 50 unit SQ HS 08/08/17 [Lantus] Escitalopram Oxalate [Lexapro -] 20 mg PO HS 04/19/18 Furosemide [Lasix] 20 mg PO AM 04/19/18 Sacubitril/Valsartan [Entresto 24 1 tab PO DAILY 04/19/18 mg-26 mg Tablet] Insulin Lispro [Humalog] 0 unit SQ ASDIR 05/30/18 Bimatoprost [Lumigan] 1 drop IO DAILY 05/31/18 Active Medications Albuterol Sulfate (Ventolin Hfa Inhaler -) 2 puff IH Q4H PRN PRN Reason: SHORT OF BREATH/WHEEZING Aspirin (Ecotrin -) 81 mg PO DAILY [facility] Last Admin: 06/01/18 09:25 Dose: 81 mg Budesonide/Formoterol Fumarate (Symbicort 160/4.5mcg -) 2 puff IH BID [facility] Last Admin: 06/01/18 09:26 Dose: 2 puff Carvedilol (Coreg -) 3.125 mg PO BID [facility] Last Admin: 06/01/18 09:25 Dose: 3.125 mg Clopidogrel Bisulfate (Plavix -) 75 mg PO DAILY [facility] Last Admin: 06/01/18 09:25 Dose: 75 mg Escitalopram Oxalate (Lexapro -) 20 mg PO HS [facility] Last Admin: 05/31/18 21:47 Dose: 20 mg Furosemide (Lasix -) 40 mg PO DAILY [facility] Last Admin: 06/01/18 09:25 Dose: 40 mg Heparin Sodium (Porcine) (Heparin -) 5,000 unit SQ TID [facility] Last Admin: 06/01/18 06:26 Dose: 5,000 unit Ceftriaxone Sodium 1 gm/ (Dextrose) 50 mls @ 100 mls/hr IVPB DAILY [facility]; Protocol Last Admin: 05/31/18 09:22 Dose: 100 mls/hr Insulin Aspart (Novolog Vial Sliding Scale -) 1 vial SQ ACHS [facility]; Protocol Last Admin: 06/01/18 06:26 Dose: Not Given Insulin Detemir (Levemir Vial) 40 units SQ HS [facility] Last Admin: 05/31/18 21:49 Dose: 40 units Latanoprost (Xalatan 0.005% Eye Drops -) 1 drop OU HS [facility] Last Admin: 05/31/18 21:48 Dose: 1 drop Ondansetron HCl (Zofran Injection) 4 mg IVPUSH Q6H PRN PRN Reason: NAUSEA AND/OR VOMITING Last Admin: 05/31/18 00:18 Dose: 4 mg Pantoprazole Sodium (Protonix Iv) 40 mg IVPUSH DAILY [facility] Last Admin: 05/31/18 09:39 Dose: 40 mg Rosuvastatin Calcium (Crestor -) 5 mg PO HS [facility] Last Admin: 05/31/18 22:03 Dose: 5 mg Tamsulosin HCl (Flomax -) 0.4 mg PO DAILY@0830 [facility] Last Admin: 06/01/18 09:25 Dose: 0.4 mg Venlafaxine HCl (Effexor Xr -) 75 mg PO DAILY@0800 [facility] Last Admin: 06/01/18 09:25 Dose: 75 mg Laboratory Results - last 24 hr 05/31/18 05/31/18 05/31/18 11:27 11:28 16:37 WBC RBC Hgb Hct MCV MCH MCHC RDW Plt Count MPV Sodium Potassium Chloride Carbon Dioxide Anion Gap BUN Creatinine Creat Clearance w eGFR POC Glucometer 191 175 155 Random Glucose Calcium 05/31/18 05/31/18 06/01/18 16:38 21:46 05:23 WBC RBC Hgb Hct MCV MCH MCHC RDW Plt Count MPV Sodium Potassium Chloride Carbon Dioxide Anion Gap BUN Creatinine Creat Clearance w eGFR POC Glucometer 192 156 77 Random Glucose Calcium 06/01/18 06/01/18 05:30 05:30 WBC 3.5 L RBC 3.75 L Hgb 10.5 L Hct 30.7 L MCV 81.9 MCH 27.9 MCHC 34.1 RDW 16.5 H Plt Count 106 L MPV 7.8 Sodium 142 Potassium 4.9 Chloride 110 H Carbon Dioxide 25 Anion Gap 6 L BUN 33 H Creatinine 1.4 H Creat Clearance w eGFR 49.41 POC Glucometer Random Glucose 66 L Calcium 8.5 Microbiology 05/30/18 15:25 Urine - Urine Clean Catch Urine Culture - Final Contaminated: Please Repeat 05/31/18 00:01 Blood - Peripheral Venous Blood Culture - Preliminary NO GROWTH OBTAINED AFTER 24 HOURS, INCUBATION TO CONTINUE FOR 4 DAYS. 05/31/18 00:01 Blood - Peripheral Venous Blood Culture - Preliminary NO GROWTH OBTAINED AFTER 24 HOURS, INCUBATION TO CONTINUE FOR 4 DAYS. ASSESSMENT AND PLAN: 77 yom with PMhx of Severe Systolic CHF (EF 25-30%), s/p ICD, CAD s/p CABG/PCI ( last PCI 2-3 years ago), PAD s/p b/o fem-pop bypass, LE PCI with stenting, IDDM poorly controlled, Achalasia s/p Heller's myotomy, PUD s/p partial gastrectomy ( Bilroth Type II) years ago, HTN, HLD, COPD (>60 pack year smoking history) admitted with weakness, dizziness, vomiting, diarrhea, headache and transient LLQ abdominal pain -Vomiting, ?Viral illness, r/o achalasia related, vs gastroparesis vs from lower uncomplicated UTI -Headache/weakness/bodyaches, improved, ?Viral illness vs UTI, influenza screen neg -LLQ abdominal pain, transient, CT A/P neg for acute process -Lower Uncomplicated UTI -Severe systolic HF (EF 25-30%) -CAD s/p CABG/PCI (last PCI 2-3 years ago) -CKD stage II -PAD s/p b/l fem-pop bypass -Achalasia s/p Heller's myotomy -PUD s/p Partial Gastrectomy -HTN -HLD -COPD Plan: Ceftriaxone day 3, urine cultures noted. repeat urinalysis. d/c if neg. Symptoms improved. Influenza screen neg. No further vomiting, but reports gagging/choking on breakfast, which has been ongoing concern prior to admission. GI input appreciated. Speech/swallow eval noted. For MBS with esophagogram today However, patient eats lying in bed, has been advised small meals but has not been compliant, likely etiology for his symptoms, Needs outpatient follow up with motility specialist at [facility]. Lasix 40 mg today, resume 20 mg on discharge. Strict I/os and daily weights. Avoid additional IVF for now. CT brain/a/p neg for concerns. No concerns for retention, continue flomax. asa/plavix/statin/coreg. Lantus 40 units hs, ISS, patient on higher sliding scale at home, resume once tolerating po. Renal function at baseline. Symbicort, albuterol prn DVTPPX heparin Dispo PT eval and MBS today. D/c in later today or tomorrow if no concerns and disposition arrangements made. Plan discussed with patient and nursing, all questions answered.
[2018-06-01] MEDS ORDERED: cefTRIAXone SODIUM 1 GM VIAL ONE (10:29)
[2018-06-01] MEDS ORDERED: DEXTROSE 5%-WATER - 50 ML IVPB ONE (10:30)
[2018-06-01] MEDS: PANTOPRAZOLE SODIUM 40 MG VIAL IVPUSH SCH (10:34)
[2018-06-01] MEDS: CEFTRIAXONE 1 GM in DEXTROSE 5%-WATER - 50 ML IVPB SCH (10:34)
[2018-06-01 12:16] LABS: URINE APPEARANCE CLEAR; URINE BILIRUBIN NEGATIVE (<2.0 mg/dL); URINE COLOR YELLOW; URINE GLUCOSE (UA) NEGATIVE (NEGATIVE); URINE KETONE NEGATIVE (NEGATIVE); URINE LEUK ESTERASE 2+ (NEGATIVE); URINE NITRITE NEGATIVE (NEGATIVE); URINE PROTEIN 1+ (NEGATIVE); URINE UROBILINOGEN NEGATIVE mg/dL (0.2-1.0)
[2018-06-01 12:20] LABS: URINE MUCUS RARE; YEAST RARE
[2018-06-01 13:01] LABS: BASO % 0.4 % (0-2.0); EOS % 1.3 % (0-4.5); HEMATOCRIT 31.7 % (35.4-49); HEMOGLOBIN 10.6 GM/dL (11.7-16.9); LYMPH % 17.9 % (8-40); MCH 27.6 pg (25.7-33.7); MCHC 33.6 g/dl (32.0-35.9); MEAN CELL VOLUME 82.3 fl (80-96); MEAN PLT VOLUME 7.5 fl (7.5-11.1); MONO % 11.9 % (3.8-10.2); NEUT % 68.5 % (42.8-82.8); PLATELET COUNT 106 K/MM3 (134-434); RBC 3.85 M/mm3 (4.00-5.60); RDW 16.3 % (11.9-15.9); WHITE BLOOD COUNT 3.4 K/mm3 (4.0-10.0)
[2018-06-01 14:24] VITALS: BP 109/54; PULSE 61; TEMP 97.4
--- NOTE | 2018-06-01 15:59 | PN ---
Progress Note (short form) - Note Progress Note: Speech and swallow eval reviewed: silent aspiration on all liquids. limited evaluation of esophagus however it appeared to empty. Unclear etiology of oropharyngeal dysphagia Consider ENT eval Consider imaging of chest given smoking history to exclude lung malignancy Consider neuro eval Diet modifications per S/S
--- NOTE | 2018-06-01 16:53 | DS ---
Physical Exam: SUBJECTIVE: Patient seen and examined by me at bedside. No acute events overnight Abdominal pain improved and no vomiting or diarrhea. Still reports choking with PO intake Otherwise, no fevers, chills, nausea, vomiting, chest pain, palpitations, shortness of breath, urinary symptoms OBJECTIVE: Vital Signs Period Temp Pulse Resp BP Sys/Garcia Pulse Ox Last 24 Hr 97.4 F-99 F 61-78 18-20 106-153/52-74 99-99 PHYSICAL EXAM GENERAL: The patient is awake, alert, in no acute distress. EYES: Sclera anicteric, conjunctiva clear. No ptosis. ENT: Moist mucous membranes. LUNGS: Breath sounds equal, clear to auscultation bilaterally, no wheezes, no crackles, no accessory muscle use. HEART: Regular rate and rhythm, S1, S2 without murmur, rub or gallop. ABDOMEN: Soft, nontender, nondistended, normoactive bowel sounds EXTREMITIES: No edema. Laboratory Results 06/01/18 12:25 06/01/18 05:30 PRE HOSPITAL COURSE: Patient is a 77 year old male with a PMHx of Severe Systolic CHF (EF 25-30%), s/ p ICD, CAD s/p CABG/PCI (last PCI 2-3 years ago), PAD s/p b/o fem-pop bypass, LE PCI with stenting, IDDM poorly controlled, Achalasia s/p Heller's myotomy, PUD s/p partial gastrectomy (Bilroth Type II) years ago, HTN, HLD, COPD (>60 pack year smoking history) who presented with, LLQ pain radiating to his left groin with associated nausea and vomiting, dizziness, diarrhea, and headaches. Initially, concerning for incarcerated hernia but images were negative. Patient was unable to tolerate PO and then admitted for further monitoring and management. HOSPITAL COURSE: Throughout hospitalization, patient was found to have UTI and started on ceftriaxone with improved urinary symptoms. However, patient was having episodes of gagging/choking when eating meals, which has been an ongoing chronic problem for several years. Patient was evaluated by GI and recommended a swallow study, which revealed silent aspiration on all liquids with unclear etiology of oropharyngeal dysphagia. Recommendations for food were Soft diet. [place] thick liquids, Single sips and flex chin during each sip, Sit fully upright during meals and for at least one hour after meals, Small meals, and avoid large meals. He was also recommended to follow up at [facility] with motility specialist. Patient also advised to follow up with ENT. Patient medically cleared for discharge with family at bedside. Date of Admission:05/30/18 Date of Discharge: 06/01/18 Minutes to complete discharge: 45 Discharge Summary Reason For Visit: NAUSEA AND VOMITING - Instructions Diet, Activity, Other Instructions: You were admitted with vomiting, weakness, and urinary infection. You were placed on antibiotics. You had CT scan of you belly that was negative for any concerns. You reported symptoms of gagging and choking on food. You were seen by your facility engineer Dr. Saldana and advised outpatient follow up at [facility] with motility specialist as discussed. You received swallow study and provided with following recommendations: Soft diet. [place] thick liquids Single sips and flex chin during each sip. Sit fully upright during meals and for atleast one hour after meals. Small meals, avoid large meals. You are advised test called Esophagogram to be done outpatient. You are also advised ENT follow up to look at your vocal cords. Discuss with your doctor about further testing for ongoing symptoms of choking on food including neurology evaluation and imaging of chest. You can follow up with speech pathologist Madhuri Steen who saw you in the hospital. Please call on discharge to schedule follow up. Weigh yourself daily and notify your doctor or gusset ripper if weight gain > 3 lbs in 2 days. MEDICATIONS: You are prescribed antibiotic for urine infection Take cefuroxime 250 mg twice daily starting tomorrow 06/02/2017 for additional 4 days. Continue all your home medications as before. No changes have been made. FOLLOW UP: Your primary care doctor in 1 week Blood work (Complete blood count and Basic metabolic panel in 1 week with your doctor to monitor your blood counts and kidneys) Mailroom Personnel in 1-[address] Saldana in 1-2 weeks, and with Motility specialist at [facility] as recommended by him You are recommended outpatient ENT follow up to look at your larynx/vocal cords. Please discuss with your doctor for outpatient imaging of your chest (CAT Scan) and further testing for your trouble swallowing Madhuri Steen, Speech therapist at [phone], or can discuss with your doctor for outpatient referral. If you notice any new fevers, chills, vomiting, inability to eat, trouble breathing, or any new concerns, please call 911 or come to ED. Referrals: Angel Cheatham [Primary Care Provider] - Alex Saldana DO [Staff Physician] - Jayy Morales MD [Staff Physician] - Disposition: VNS/HOME HEALTH CARE - Home Medications Comprehensive Discharge Medication List: Ambulatory Orders Bimatoprost [Lumigan] 1 drop OU DAILY 12/24/16 Budesonide/Formeterol Fumarate [SYMBICORT 160/4.5mcg -] 2 inh PO BID 12/24/16 Clopidogrel Bisulfate [Plavix -] 75 mg PO DAILY 12/24/16 Rosuvastatin Calcium [Crestor] 20 mg PO HS 12/24/16 Acetaminophen [Tylenol .Regular Strength -] 650 mg PO Q4H PRN tablet 07/25/17 Albuterol 0.083% Nebulizer Fatuma [Ventolin 0.083% Nebulizer Soln -] 1 amp NEB PRN #1 amp 07/25/17 Albuterol Sulfate Inhaler - [Ventolin HFA Inhaler -] 1 - 2 inh PO QID PRN #1 inhaler 07/25/17 Carvedilol [Coreg -] 3.125 mg PO BID #60 tablet 07/25/17 Tamsulosin HCl [Flomax -] 0.4 mg PO 0830 #30 cap.er.24h 07/25/17 Venlafaxine HCl [Effexor -] 75 mg PO DAILY #30 tablet 07/25/17 Insulin Glargine,Hum.rec.anlog [Lantus] 50 unit SQ HS 08/08/17 Escitalopram Oxalate [Lexapro -] 20 mg PO HS 04/19/18 Furosemide [Lasix] 20 mg PO AM 04/19/18 Sacubitril/Valsartan [Entresto 24 mg-26 mg Tablet] 1 tab PO DAILY 04/19/18 Insulin Lispro [Humalog] 0 unit SQ ASDIR 05/30/18 Cefuroxime Axetil [Cefuroxime] 250 mg PO BID 4 Days #8 tablet 06/01/18 This patient is new to me today: No Emergency Visit: Yes ED Registration Date: 05/30/18 Care time: The patient presented to the Emergency Department on the above date and was hospitalized for further evaluation of their emergent condition. Critical Care patient: No - Discharge Referral Referred to [facility] Med P.C.: Yes Physician Referral: Pardeep Saldana DO (GI)
== END 2018-06-01 16:48 | disposition home health service (06) | DRG 690 ==
LOC: JER 10:23 → JERBED 17:10 → J4W 23:34
PROVIDERS: ADMIT Hospitalist; ATTEND Hospitalist
DX: N39.0 Urinary tract infection, site not specified (principal); I50.22 Chronic systolic (congestive) heart failure; I13.0 Hypertensive heart and chronic kidney disease with heart failure and stage 1 through stage 4 chronic kidney disease, or unspecified chronic kidney disease; E11.65 Type 2 diabetes mellitus with hyperglycemia; E11.22 Type 2 diabetes mellitus with diabetic chronic kidney disease; I25.10 Atherosclerotic heart disease of native coronary artery without angina pectoris; J44.9 Chronic obstructive pulmonary disease, unspecified; N18.2 Chronic kidney disease, stage 2 (mild); K22.0 Achalasia of cardia; R13.12 Dysphagia, oropharyngeal phase; Z98.61 Coronary angioplasty status; Z95.1 Presence of aortocoronary bypass graft; E78.5 Hyperlipidemia, unspecified; Z79.4 Long term (current) use of insulin; N40.0 Benign prostatic hyperplasia without lower urinary tract symptoms
CPT/HCPCS: 36415; 70450-TC; 71045-TC-FY; 74176-TC; 74230-TC-FY; 80048; 80053; 81003; 81015; 82962; 83036; 83690; 83735; 84100; 84484; 85025; 85027; 85610; 85730; 86850; 86900; 86901; 87040; 87081; 87086; 87804; 92611-GN; 93005; 93010; 97116-GP; 97162-GP; 99285-25; J0131; J1644; J7030

== ENCOUNTER 2018-07-02 11:09 | Emergency (ER) | payer OTHER, MEDICARE ==
[2018-07-02 11:16] VITALS: PULSE 90; BMI 25.1
--- NOTE | 2018-07-02 12:18 | PDOC ---
History of Present Illness - General Chief Complaint: Shortness of Breath Stated Complaint: COUGHING Time Seen by Provider: 07/02/18 11:41 History Source: Patient Exam Limitations: No Limitations Past History - Travel Traveled outside of the country in the last 30 days: No Close contact w/someone who was outside of country & ill: No - Past Medical History Allergies/Adverse Reactions: Allergies Allergy/AdvReac Type Severity Reaction Status Date / Time pregabalin [From Lyrica] Allergy Severe Verified 07/01/18 08:58 Home Medications: Ambulatory Orders Bimatoprost [Lumigan] 1 drop OU DAILY 12/24/16 Budesonide/Formeterol Fumarate [SYMBICORT 160/4.5mcg -] 2 inh PO BID 12/24/16 Clopidogrel Bisulfate [Plavix -] 75 mg PO DAILY 12/24/16 Rosuvastatin Calcium [Crestor] 20 mg PO HS 12/24/16 Acetaminophen [Tylenol .Regular Strength -] 650 mg PO Q4H PRN tablet 07/25/17 Albuterol 0.083% Nebulizer Fatuma [Ventolin 0.083% Nebulizer Soln -] 1 amp NEB PRN #1 amp 07/25/17 Albuterol Sulfate Inhaler - [Ventolin HFA Inhaler -] 1 - 2 inh PO QID PRN #1 inhaler 07/25/17 Carvedilol [Coreg -] 3.125 mg PO BID #60 tablet 07/25/17 Tamsulosin HCl [Flomax -] 0.4 mg PO 0830 #30 cap.er.24h 07/25/17 Venlafaxine HCl [Effexor -] 75 mg PO DAILY #30 tablet 07/25/17 Insulin Glargine,Hum.rec.anlog [Lantus] 50 unit SQ HS 08/08/17 Escitalopram Oxalate [Lexapro -] 20 mg PO HS 04/19/18 Furosemide [Lasix] 20 mg PO AM 04/19/18 Sacubitril/Valsartan [Entresto 24 mg-26 mg Tablet] 1 tab PO DAILY 04/19/18 Insulin Lispro [Humalog] 0 unit SQ ASDIR 05/30/18 Sulfamethoxazole/Trimethoprim [Bactrim Ds -] 1 tab PO BID #20 tablet 07/02/18 Anemia: Yes Asthma: Yes Cancer: No (family h/o leukemia) Cardiac Disorders: Yes (4 stents) CVA: No COPD: Yes CHF: Yes Dementia: No Diabetes: Yes GI Disorders: Yes (ESOPHAGEAL DYSMOTILITY, GASTRITIS, H-PYLORI) Disorders: Yes (PROSTATE BX) HTN: Yes Hypercholesterolemia: Yes Kidney Stones: No Liver Disease: No Psychiatric Problems: No Seizures: No Thyroid Disease: No Lung CA: No - Surgical History Abdominal Surgery: Yes (PARTIAL GASTRECTOMY,H/O ULCERS EGD BIOPSY 2009,EGD H- PYLORI 2006,COLON 2003) Appendectomy: Yes Cardiac Surgery: Yes (cabg) Cholecystectomy: Yes Lung Surgery: No Neurologic Surgery: No Orthopedic Surgery: No - Family Disease History Family Disease History: Heart Disease: Father - Reproductive History Testicular Surgery: Yes - Immunization History Immunization Up to Date: Yes - Suicide/Smoking/Psychosocial Hx Smoking Status: Yes Smoking History: Former smoker Years of Tobacco Use: 50 Have you smoked in the past 12 months: Yes Number of Cigarettes Smoked Daily: 5 If you are a former smoker, when did you quit?: months ago Information on smoking cessation initiated: No 'Breaking Loose' booklet given: 07/01/18 Hx Alcohol Use: No (prior heavy use) Drug/Substance Use Hx: No Substance Use Type: Alcohol Hx Substance Use Treatment: No Review of Systems - Review of Systems Able to Perform ROS?: Yes Comments:: 07/02/18 12:17 CONSTITUTIONAL: Absent: fever, chills, diaphoresis, generalized weakness, malaise, loss of appetite HEENT: Absent: rhinorrhea, nasal congestion, throat pain, throat swelling, difficulty swallowing, mouth swelling, ear pain, eye pain, visual Changes CARDIOVASCULAR: Absent: chest pain, loss of consciousness, palpitations, irregular heart rate, peripheral edema RESPIRATORY: Absent: cough, shortness of breath, dyspnea with exertion, orthopnea, wheezing, stridor, hemoptysis GASTROINTESTINAL: Absent: abdominal pain, abdominal distension, nausea, vomiting, diarrhea, constipation, melena, hematochezia GENITOURINARY: Absent: dysuria, frequency, urgency, hesitancy, hematuria, flank pain, genital pain MUSCULOSKELETAL: Absent: myalgia, arthralgia, joint swelling SKIN: Absent: rash, itching, pallor HEMATOLOGIC/IMMUNOLOGIC: Absent: easy bleeding, easy bruising, lymphadenopathy, frequent infections ENDOCRINE: Absent: unexplained weight gain, unexplained weight loss, heat intolerance, cold intolerance NEUROLOGIC: Absent: headache, focal weakness or paresthesias, dizziness, unsteady gait, seizure, mental status changes, bladder or bowel incontinence PSYCHIATRIC: Absent: anxiety, depression, suicidal or homicidal ideation, hallucinations. Is the patient limited Azeri proficient: No *Physical Exam - Vital Signs Last Vital Signs Temp Pulse Resp BP Pulse Ox 97.3 F L 90 18 112/59 L 96 07/02/18 11:15 07/02/18 11:15 07/02/18 11:15 07/02/18 11:15 07/02/18 11:15 - Physical Exam Comments: 07/02/18 12:18 GENERAL: Well developed, well nourished. Awake and alert. No acute distress. HEENT: Normocephalic, atraumatic. PERRLA, EOMI. No conjunctival pallor. Sclera are non- icteric. Moist mucous membranes. Oropharynx is clear. NECK: Supple. Full ROM. No JVD. Carotid pulses 2+ and symmetric, without bruits. No thyromegaly. No lymphadenopathy. CARDIOVASCULAR: Regular rate and rhythm. No murmurs, rubs, or gallops. Distal pulses are 2+ and symmetric. PULMONARY: No evidence of respiratory distress. Lungs clear to auscultation bilaterally. No wheezing, rales or rhonchi. ABDOMINAL: Soft. Non-tender. Non-distended. No rebound or guarding. No organomegaly. Normoactive bowel sounds. MUSCULOSKELETAL Normal range of motion at all joints. No bony deformities or tenderness. No CVA tenderness. EXTREMITIES: No cyanosis. No clubbing. No edema. No calf tenderness. SKIN: Warm and dry. Normal capillary refill. No rashes. No jaundice. NEUROLOGICAL: Alert, awake, appropriate. Cranial nerves 2-12 intact. No deficits to light touch and temperature in face, upper extremities and lower extremities. No motor deficits in the in face, upper extremities and lower extremities. Normoreflexic in the upper and lower extremities. Normal speech. Toes are down- going bilaterally. Gait is normal without ataxia. PSYCHIATRIC: Cooperative. Good eye contact. Appropriate mood and affect. Moderate Sedation - Procedure Monitoring Vital Signs: Procedure Monitoring Vital Signs Temperature 97.3 F L 07/02/18 11:15 Pulse Rate 90 07/02/18 11:15 Respiratory Rate 18 07/02/18 11:15 Blood Pressure 112/59 L 07/02/18 11:15 O2 Sat by Pulse Oximetry (%) 96 07/02/18 11:15 ED Treatment Course - LABORATORY CBC & Chemistry Diagram: 07/02/18 13:26 07/02/18 13:26 *DC/Admit/Observation/Transfer Diagnosis at time of Disposition: Cough UTI (urinary tract infection) Qualifiers: Urinary tract infection type: acute cystitis Hematuria presence: with hematuria Qualified Code(s): N30.01 - Acute cystitis with hematuria - Discharge Dispostion Disposition: HOME Condition at time of disposition: Stable Decision to Admit order: No - Referrals Referrals: Vikash Guerra MD [Primary Care Provider] - Erinn Limon MD [Staff Physician] - - Patient Instructions Printed Discharge Instructions: DI for Urinary Tract Infection (UTI) Additional Instructions: You have a urinary tract infection. This caused by bacteria. Take your antibiotics as prescribed. Finish the entire dose even if you feel better. You may take Tylenol or Motrin as needed for pain Please follow up with Dr. Limon later today. Return to the emergency department if you have fevers, chills, nausea, vomiting , back pain, or have any changes in your symptoms. - Post Discharge Activity
[2018-07-02 13:40] LABS: BASO % 0.8 % (0-2.0); EOS % 1.1 % (0-4.5); HEMOGLOBIN 12.4 GM/dL (11.7-16.9); MCH 29.2 pg (25.7-33.7); MCHC 35.3 g/dl (32.0-35.9); MEAN CELL VOLUME 82.7 fl (80-96); MEAN PLT VOLUME 7.7 fl (7.5-11.1); MONO % 11.8 % (3.8-10.2); NEUT % 73.3 % (42.8-82.8); PLATELET COUNT 137 K/MM3 (134-434); RBC 4.23 M/mm3 (4.00-5.60); RDW 16.5 % (11.9-15.9); WHITE BLOOD COUNT 4.9 K/mm3 (4.0-10.0)
--- NOTE | 2018-07-02 13:42 | PDOC ---
*Physical Exam - Vital Signs Last Vital Signs Temp Pulse Resp BP Pulse Ox 97.3 F L 90 18 112/59 L 96 07/02/18 11:15 07/02/18 11:15 07/02/18 11:15 07/02/18 11:15 07/02/18 11:15 ED Treatment Course - LABORATORY CBC & Chemistry Diagram: 07/02/18 13:26 07/02/18 13:26 Medical Decision Making - Medical Decision Making 07/02/18 13:41 Pt seen by Midlevel Provider under my direct supervision Ancillary studies reviewed I agree with plan as outlined by Midlevel Provider EKG - NSR rate of 79 bpm, axis nml, intervals nml - pr: 226ms (prolonged), QRS: 124ms (prolonged), QTc: 470ms. No st elevation, no ST depression, t waves flattened, artifact at baseline 07/03/18 09:28 *DC/Admit/Observation/Transfer Diagnosis at time of Disposition: Cough, UTI (urinary tract infection) - Discharge Dispostion Disposition: HOME Condition at time of disposition: Stable - Prescriptions Prescriptions: Sulfamethoxazole/Trimethoprim [Bactrim Ds -] 1 tab PO BID #20 tablet - Referrals Referrals: Vikash Guerra MD [Primary Care Provider] - Erinn Limon MD [Staff Physician] - - Patient Instructions Printed Discharge Instructions: DI for Urinary Tract Infection (UTI) Additional Instructions: You have a urinary tract infection. This caused by bacteria. Take your antibiotics as prescribed. Finish the entire dose even if you feel better. You may take Tylenol or Motrin as needed for pain Please follow up with Dr. Limon later today. Return to the emergency department if you have fevers, chills, nausea, vomiting , back pain, or have any changes in your symptoms. - Post Discharge Activity
[2018-07-02 13:43] LABS: URINE APPEARANCE SLCLOUDY; URINE BILIRUBIN NEGATIVE (<2.0 mg/dL); URINE COLOR YELLOW; URINE GLUCOSE (UA) NEGATIVE (NEGATIVE); URINE KETONE NEGATIVE (NEGATIVE); URINE LEUK ESTERASE 3+ (NEGATIVE); URINE NITRITE NEGATIVE (NEGATIVE); URINE PROTEIN 2+ (NEGATIVE)
[2018-07-02 14:12] LABS: ALBUMIN 3.5 g/dl (3.4-5.0); ALK PHOS 110 U/L (45-117); ANION GAP 5 MMOL/L (8-16); BILIRUBIN,TOTAL 0.4 mg/dL (0.2-1); BLOOD UREA NITROGEN 32 mg/dL (7-18); CALCIUM 8.4 mg/dL (8.5-10.1); CHLORIDE 106 mmol/L (98-107); CO2 23 mmol/L (21-32); CREATININE 1.6 mg/dL (0.55-1.3); GLUCOSE,RANDOM 291 mg/dL (74-106); N-TERMINAL BNP 1744.8 pg/ml (5-450); POTASSIUM 4.8 mmol/L (3.5-5.1); SGOT/AST 33 U/L (15-37); SGPT/ALT 59 U/L (13-61); SODIUM 134 mmol/L (136-145); TOT PROT 6.8 g/dl (6.4-8.2)
[2018-07-02 14:23] LABS: EPI CELLS RARE /HPF (FEW); URINE HYALINE CAST 7 /lpf; URINE MUCUS RARE
--- NOTE | 2018-07-02 15:03 | EKG ---
Test Reason : Blood Pressure : / mmHG Vent. Rate : 079 BPM Atrial Rate : 079 BPM P-R Int : 226 ms QRS Dur : 124 ms QT Int : 410 ms P-R-T Axes : 078 012 124 degrees QTc Int : 470 ms POOR DATA QUALITY, INTERPRETATION MAY BE ADVERSELY AFFECTED SINUS RHYTHM WITH 1ST DEGREE A-V BLOCK CANNOT RULE OUT ANTERIOR INFARCT (CITED ON OR BEFORE 30-MAY-2018) T WAVE ABNORMALITY, CONSIDER LATERAL ISCHEMIA ABNORMAL ECG Confirmed by MELISSA LI MD ([id number]) on 07/02/2018 3:02:35 PM Referred By: Confirmed By:MELISSA LI MD
[2018-07-02 15:12] VITALS: BP 120/68; TEMP 97.7
== END 2018-07-02 14:50 | disposition home or self-care (01) ==
LOC: JER 11:09
DX: J44.9 Chronic obstructive pulmonary disease, unspecified (principal); J45.909 Unspecified asthma, uncomplicated; R05 Cough; N30.01 Acute cystitis with hematuria; B96.89 Other specified bacterial agents as the cause of diseases classified elsewhere; I25.10 Atherosclerotic heart disease of native coronary artery without angina pectoris; I11.0 Hypertensive heart disease with heart failure; Z95.1 Presence of aortocoronary bypass graft; Z95.5 Presence of coronary angioplasty implant and graft; Z87.891 Personal history of nicotine dependence; E11.9 Type 2 diabetes mellitus without complications; Z79.4 Long term (current) use of insulin; E78.00 Pure hypercholesterolemia, unspecified; Z87.19 Personal history of other diseases of the digestive system; Z90.3 Acquired absence of stomach [part of]; Z90.49 Acquired absence of other specified parts of digestive tract
CPT/HCPCS: 36415; 71046-TC-FY; 80053; 81003; 81015; 82550; 83735; 83880; 84484; 85025; 87804; 93005; 93010; 99283-25

== ENCOUNTER 2018-07-23 09:37 | Day surgery (SDC) | payer OTHER, MEDICARE ==
[2018-07-22 15:22] VITALS: BMI 24.8
[2018-07-23] MEDS ORDERED: PROPOFOL 20 ML ONE ×2 (11:45)
[2018-07-23] MEDS ORDERED: ceFAZolin SODIUM 1 GM VIAL IVPB ONE (12:01)
[2018-07-23] MEDS ORDERED: KETOROLAC TROMETHAMINE 30 MG/1 ML VIAL ONE (12:14)
[2018-07-23] MEDS ORDERED: ceFAZolin SODIUM 1 GM VIAL ONE (12:14)
[2018-07-23] MEDS ORDERED: DEXAMETHASONE SOD PHOSPHATE 4 MG/1 ML VIAL ONE (12:14)
--- NOTE | 2018-07-23 12:28 | OP ---
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 Operation: cysto iou, no f.b. seen Findings: deep urethral stricture disease and funguria Post-Operative Diagnosis: Same as Pre-op Route Delivery Supervisor: Erinn Limon Anesthesia: General Specimens Removed: urine Estimated Blood Loss (mls): 0 Drains, Volume Out (mls): 0 Blood Volume Replaced (mls): 0 Fluid Volume Replaced (mls): 0 Operative Report Dictated: Yes
[2018-07-23] MEDS ORDERED: ONDANSETRON 4 MG/2 ML VIAL IVPUSH PRN (12:29)
[2018-07-23] MEDS ORDERED: PROMETHAZINE HCL 25 MG/1 ML VIAL IVPUSH PRN (12:29)
[2018-07-23] MEDS ORDERED: oxyCODONE HCL 5 MG TABLET PO PRN (12:29)
--- NOTE | 2018-07-23 12:31 | OP ---
Operative Note - Note: Operative Date: 07/23/18 Pre-Operative Diagnosis: bph
--- NOTE | 2018-07-23 13:34 | CONS ---
DATE OF CONSULTATION: DATE OF DICTATION: 07/23/2018 HISTORY OF PRESENT ILLNESS: Patient is a 78-year-old male followed in my office for obstructive uropathy and erectile dysfunction. He was complaining of urinary frequency, urgency, dribbling and hesitancy. A cystoscopy under local in the office revealed a deep urethral stricture with possible fungal balls in the bladder. The patient is admitted to the hospital to undergo a cystoscopy, optical internal urethrotomy and bladder irrigation to remove the fungomas. Patient has a long and complicated medical history including cardiovascular disease. He does have an ICD. Also has high blood pressure. He has heart failure, peripheral vascular disease as well as dyslipidemia. Patient did undergo a coronary artery bypass in the past. He also underwent percutaneous stents prior to the open bypass. He continues to have angina but gets a cardiac clearance from Dr. Jayy Morales. He also has history of chronic kidney disease, chronic obstructive pulmonary disease, diabetes, type 2, hypertension. He has undergone bilateral cataract surgery. He does have history of degenerative joint disease. Also has history of kidney stones for which he underwent ureteroscopic laser lithotripsy. The patient has had a cholecystectomy in the past. MEDICATIONS: Presently he is on multiple medications including carvedilol, Plavix, Entresto, escitalopram, Flomax, Lasix, insulin, Lumigan, ProAir, Symbicort and venlaxafine inhaler. ALLERGIES: He is allergic to LYRICA. PHYSICAL EXAMINATION: Vital Signs: Presently his blood pressure is 120/70, his pulse is 80 and regular. BUN was 26 and creatinine was 1.32. A random glucose was 180. Genitalia: Revealed soft testes. Abdomen: Soft. Rectal: Rectal tone is poor. Prostate fossa is 1+, benign and nontender. IMPRESSION: At present is obstructive uropathy, possible urethral stricture disease, possible fungal urinary tract infection. PLAN: To perform a cystoscopy, irrigate the bladder of the fungomas and open up the urethral stricture. Tyrell [id number]
--- NOTE | 2018-07-23 13:49 | OP ---
DATE OF OPERATION: 07/23/2018 PREOPERATIVE DIAGNOSES: Prostatism. Obstructive uropathy. Possible foreign body. POSTOPERATIVE DIAGNOSES: Urethral stricture disease and funguria. ANESTHESIA: General. DESCRIPTION OF PROCEDURE: Under above-stated anesthesia, patient was prepped and draped in the usual sterile manner. He was placed in the dorsal lithotomy position. Cystoscopy under direct vision revealed a normal anterior urethra. The bulbous urethra revealed a stricture at the distal end. The prostatic fossa was entered. The prostate was wide open. The bladder was entered. Urine was collected for culture and sensitivity. Inspection of the bladder revealed several, pea-sized, white, cottony lesions indicative of fungus. Ureteral orifices were within normal limits with efflux of clear urine. No foreign body, no lesions were noted. Efflux of urine was clear. The cystoscope was then removed. The urethra was dilated to 28-Khmer without difficulty or bleeding. The patient tolerated the procedure well. He returned to the recovery room in good condition. Tyrell [id number]
[2018-07-23 13:59] VITALS: TEMP 97.7
[2018-07-23 17:21] VITALS: BP 116/71; PULSE 73
--- NOTE | 2018-07-26 16:34 | PATH ---
Cytology Non-Gynecological Report Patient Name: LIAM QUINTEROS [facility]. Rec. #: [id number] /Age/Gender: 1940 (Age: 78) / M Account: [id number] Location: U SURGICAL Taken: 07/23/2018 Received: 07/23/2018 Reported: 07/26/2018 Physicians: Erinn Limon M.D. Specimen(s) Received URINE VOIDED Clinical History Hematuria Final Diagnosis URINE FOR CYTOLOGY: SATISFACTORY FOR EVALUATION. NEGATIVE FOR HIGH GRADE UROTHELIAL CARCINOMA. RARE UROTHELIAL CELLS, RED BLOOD CELLS, AND NEUTROPHILS PRESENT. Electronically Signed Ulises Mcrae M.D. Gross Description Approximately 50cc of yellow fluid received fresh. One slide prepared.
== END 2018-07-23 17:35 | disposition home or self-care (01) ==
LOC: JASU-SURG 09:37
PROVIDERS: ATTEND Urology
PROC: 0TJB8ZZ Inspection of Bladder, Via Natural or Artificial Opening Endoscopic (ICD-10-PCS; principal; 2018-07-23 11:00)
DX: N35.912 Unspecified bulbous urethral stricture, male (principal); B48.8 Other specified mycoses
CPT/HCPCS: 82962; 88108; 94760

== ENCOUNTER 2018-08-03 12:19 | Inpatient (IN) | payer OTHER, MEDICARE ==
--- NOTE | 2018-08-03 14:02 | PDOC ---
History of Present Illness - General Chief Complaint: Weakness Stated Complaint: REFERRED BY PCP FOR LOW BLOOD PRESSURE Time Seen by Provider: 08/03/18 13:56 History Source: Patient Exam Limitations: No Limitations - History of Present Illness Initial Comments: 08/03/18 13:58 78YOM with h/o urethral stricture and funguria, recent cystoscopy on 07/27 with Erinn Limon, severe systolic CHF (EF 25-30%), s/p ICD, CAD s/p CABG/PCI (last PCI 2-3 years ago), PAD s/p b/o fem-pop bypass, LE PCI with stenting, IDDM poorly controlled, Achalasia s/p Heller's myotomy with residual dysphagia, PUD s /p partial gastrectomy (Bilroth Type II) years ago, HTN, HLD, COPD (>60 pack year smoking history). His provider called ahead to inform the ED that the patient was coming in for decreased blood pressure, dehydration, and failure to thrive picture possibly exacerbated by dysphagia. The patient himself notes about a year of insidious generalized weakness, AVILA especially when climbing stairs, lightheadedness, and pale appearance. He notes this has been worse than normal over the past few several days and he has had difficulty standing from sitting position, and difficulty walking, because of the weakness. Denies any f/ c/n/v/d/c, chest pain, abdominal pain, headache, neck pain, back pain, numbness , tingling, focal weakness, fainting, black/bloody stool, or other symptoms. Last colonoscopy was >7 years ago and the states that Dr. Saldana had recommended a colonoscopy for him recently, but they have not done this yet. Past History - Past Medical History Allergies/Adverse Reactions: Allergies Allergy/AdvReac Type Severity Reaction Status Date / Time pregabalin [From Lyrica] Allergy Severe Verified 08/03/18 12:35 Home Medications: Ambulatory Orders Bimatoprost [Lumigan] 1 drop OU DAILY 12/24/16 Budesonide/Formeterol Fumarate [SYMBICORT 160/4.5mcg -] 2 inh PO BID 12/24/16 Clopidogrel Bisulfate [Plavix -] 75 mg PO DAILY 12/24/16 Rosuvastatin Calcium [Crestor] 20 mg PO HS 12/24/16 Carvedilol [Coreg -] 3.125 mg PO BID #60 tablet 07/25/17 Tamsulosin HCl [Flomax -] 0.4 mg PO 0830 #30 cap.er.24h 07/25/17 Insulin Glargine,Hum.rec.anlog [Lantus] 54 unit SQ HS 08/08/17 Escitalopram Oxalate [Lexapro -] 20 mg PO HS 04/19/18 Furosemide [Lasix] 20 mg PO AM 04/19/18 Sacubitril/Valsartan [Entresto 24 mg-26 mg Tablet] 1 tab PO BID 04/19/18 Albuterol Sulfate [Proair Hfa] 2 puff IH TID PRN 08/03/18 Anemia: Yes Asthma: Yes Cancer: No (family h/o leukemia) Cardiac Disorders: Yes (4 stents) CVA: No COPD: Yes CHF: Yes Dementia: No Diabetes: Yes GI Disorders: Yes (ESOPHAGEAL DYSMOTILITY, GASTRITIS, H-PYLORI) Disorders: Yes (PROSTATE BX) HTN: Yes Hypercholesterolemia: Yes Kidney Stones: No Liver Disease: No Psychiatric Problems: No Seizures: No Thyroid Disease: No Lung CA: No - Surgical History Abdominal Surgery: Yes (PARTIAL GASTRECTOMY,H/O ULCERS EGD BIOPSY 2009,EGD H- PYLORI 2006,COLON 2003) Appendectomy: Yes Cardiac Surgery: Yes (cabg) Cholecystectomy: Yes Lung Surgery: No Neurologic Surgery: No Orthopedic Surgery: No - Family Disease History Family Disease History: Heart Disease: Father - Reproductive History Testicular Surgery: Yes - Immunization History Immunization Up to Date: Yes - Suicide/Smoking/Psychosocial Hx Smoking Status: Yes Smoking History: Former smoker Years of Tobacco Use: 50 Have you smoked in the past 12 months: Yes Number of Cigarettes Smoked Daily: 5 If you are a former smoker, when did you quit?: FEW MONTHS Information on smoking cessation initiated: No 'Breaking Loose' booklet given: 07/01/18 Hx Alcohol Use: No Drug/Substance Use Hx: No Substance Use Type: Alcohol Hx Substance Use Treatment: No Review of Systems - Review of Systems Able to Perform ROS?: Yes Comments:: GEN: malaise, generalized weakness, no fever, chills, or weight change HEENT: no ear pain, sore throat, vision change, or eye pain CV: lightheadedness, no chest pain, palpitations, syncope, or edema RESP: dyspnea on exertion, no cough or wheezing GI: no abdominal pain, nausea, vomiting, diarrhea, constipation, or white/black/ bloody stool : no dysuria, hematuria, incontinence, retention, bleeding, or discharge MSK: no neck/back pain, muscle pain, or joint swelling/pain NEURO: no headache, seizure, vertigo, numbness, tingling, or focal weakness PSYCH: no substance use, no behavior change SKIN: no jaundice, no rash ROS otherwise negative except as noted in HPI Is the patient limited Mongolian proficient: No *Physical Exam - Vital Signs Last Vital Signs Temp Pulse Resp BP Pulse Ox 97.2 F L 75 22 H 96/41 L 100 08/03/18 12:35 08/03/18 12:35 08/03/18 12:35 08/03/18 12:35 08/03/18 12:35 Heart Score/ECG Review #1 Sinus rhythm, rate of 67, normal axis and intervals, nonspecific ST-T changes ED Treatment Course - LABORATORY CBC & Chemistry Diagram: 08/05/18 06:35 08/05/18 06:35 Medical Decision Making - Medical Decision Making 78YOM Pt p/w fatigue, generalized weakness, pallor. Initial Vital Signs Temp Pulse Resp BP Pulse Ox 97.2 F L 75 22 H 96/41 L 100 08/03/18 12:35 08/03/18 12:35 08/03/18 12:35 08/03/18 12:35 08/03/18 12:35 Exam: As noted in Physical Exam section. DDX IBNLT: anemia (e.g. from GIB, menorrhagia, other blood loss, malnourishment/ vitamin deficiency), CHF, hypothyroidism, hyperparathyroidism, Parkinsons disease, CVA, HIV, cancer (casey [employer]PER[employer] neoplasm), medications/drugs, psychiatric ( depression, dysthymia, bipolar disorder, adjustment disorder with depressed mood , premenstrual dysphoric disorder). W/U ordered: Labs as noted below, EKG, CXR TX ordered: IVF EKG: Reviewed; results as noted in ECG Review section. CXR: Nothing acute Laboratory Tests 08/03/18 08/03/18 08/03/18 15:40 15:40 15:40 WBC RBC Hgb Hct MCV MCH MCHC RDW Plt Count MPV Absolute Neuts (auto) Neutrophils % Lymphocytes % Monocytes % Eosinophils % Basophils % Nucleated RBC % Sodium Cancelled Potassium Cancelled Chloride Cancelled Carbon Dioxide Cancelled Anion Gap Cancelled BUN Cancelled Creatinine Cancelled Creat Clearance w eGFR Cancelled Random Glucose Cancelled Calcium Cancelled Total Bilirubin Cancelled AST Cancelled ALT Cancelled Alkaline Phosphatase Cancelled Creatine Kinase Troponin I B-Natriuretic Peptide Total Protein Cancelled Albumin Cancelled Lipase Cancelled Urine Color Yellow Urine Appearance Clear Urine pH 5.0 Ur Specific [place] 1.014 Urine Protein Trace Urine Glucose (UA) Negative Urine Ketones Negative Urine Blood Trace Urine Nitrite Negative Urine Bilirubin Negative Urine Urobilinogen 0.2 Ur Leukocyte Esterase 2+ H Urine WBC (Auto) 67 Urine RBC (Auto) 2 Urine Casts (Auto) 4 U Epithel Cells (Auto) 6.5 U Sm Round Cell (Auto) Not present Urine Bacteria (Auto) 1.17 Stool Occult Blood Negative 08/03/18 08/03/18 15:40 15:41 WBC 5.6 RBC 3.96 L Hgb 11.5 L Hct 33.6 L MCV 84.7 MCH 29.0 MCHC 34.2 RDW 17.4 H Plt Count 120 L MPV 8.1 Absolute Neuts (auto) 4.1 Neutrophils % 73.0 Lymphocytes % 17.7 D Monocytes % 6.4 Eosinophils % 2.1 D Basophils % 0.8 Nucleated RBC % 0 Sodium 137 Potassium 4.8 Chloride 109 H Carbon Dioxide 21 Anion Gap 7 L BUN 39 H Creatinine 1.5 H Creat Clearance w eGFR 45.50 Random Glucose 260 H Calcium 8.5 Total Bilirubin 0.3 AST 39 H ALT 58 Alkaline Phosphatase 87 Creatine Kinase 70 Troponin I < 0.02 B-Natriuretic Peptide 1063.9 H Total Protein 6.3 L Albumin 3.2 L Lipase 141 Urine Color Urine Appearance Urine pH Ur Specific [place] Urine Protein Urine Glucose (UA) Urine Ketones Urine Blood Urine Nitrite Urine Bilirubin Urine Urobilinogen Ur Leukocyte Esterase Urine WBC (Auto) Urine RBC (Auto) Urine Casts (Auto) U Epithel Cells (Auto) U Sm Round Cell (Auto) Urine Bacteria (Auto) Stool Occult Blood Patient has a UTI and ceftriaxone is ordered (no recent positive urine cultures) . The patient has failure to thrive and UTI, significant difficulty standing on his own, outside of his baseline. He is unsafe for discharge home and needs further hospitalization/workup/ monitoring. Microblog sent to [facility] and blank decision to admit order placed per ED protocol. 08/03/18 18:[address] Almanzar, patient to to go [facility]/Surg Obs, Dr. Staton. Decision to Admit order corrected. *DC/Admit/Observation/Transfer Diagnosis at time of Disposition: Failure to thrive in adult, Generalized weakness UTI (urinary tract infection) Qualifiers: Urinary tract infection type: site unspecified Hematuria presence: without hematuria Qualified Code(s): N39.0 - Urinary tract infection, site not specified - Discharge Dispostion Condition at time of disposition: Guarded Decision to Admit order: Yes - Referrals - Patient Instructions - Post Discharge Activity
[2018-08-03] MEDS ORDERED: SODIUM CHLORIDE 1,000 ML IV STA (14:15)
--- NOTE | 2018-08-03 15:56 | PDOC ---
Attending Attestation - Resident Resident Name: Codie Baires - ED Attending Attestation I have performed the following: I have examined & evaluated the patient, The case was reviewed & discussed with the resident, I agree w/resident's findings & plan, Exceptions are as noted - HPI HPI: 08/03/18 15:49 The patient is a 78 year old female with a significant past medical history of urethral stricture and funguria, recent cystoscopy on 07/27 with Erinn Limon, severe systolic CHF (EF 25-30%), s/p ICD, CAD s/p CABG/PCI (last PCI 2-3 years ago), PAD s/p b/o fem-pop bypass, LE PCI with stenting, IDDM poorly controlled, achalasia s/p Heller's myotomy with residual dysphagia, PUD s/p partial gastrectomy (Bilroth Type II) years ago, HTN, HLD, COPD (>60 pack year smoking history), who presents to the ED for decreased blood pressure, dehydration, and failure to thrive. Pt endorses several months of worsening lightheadedness, AVILA , weakness, and pallor. The patient denies chest pain, shortness of breath, headache and dizziness. The patient denies fever, chills, nausea, vomit, diarrhea and constipation. The patient denies dysuria, frequency, urgency and hematuria. Allergies: NKDA - Physicial Exam PE: 08/03/18 17:10 GENERAL: Awake, alert, and fully oriented, in no acute distress. HEAD: No signs of trauma EYES: PERRLA, EOMI, sclera anicteric, conjunctiva clear ENT: Auricles normal inspection, hearing grossly normal, nares patent, oropharynx clear without exudates. Moist mucosa NECK: Nontender, no stepoffs, Normal ROM, supple, no lymphadenopathy, JVD, or masses LUNGS: Breath sounds equal, clear to auscultation bilaterally. No wheezes, and no crackles HEART: Regular rate and rhythm, normal S1 and S2, no murmurs, rubs or gallops ABDOMEN: Soft, nontender, normoactive bowel sounds. No guarding, no rebound. No masses EXTREMITIES: Normal range of motion, no edema. No clubbing or cyanosis. No cords, erythema, or tenderness NEUROLOGICAL: Cranial nerves II through XII intact. 5/5 strength and sensation in all extremities, Normal speech, normal gait, normal cerebellar function SKIN: Warm, Dry, normal turgor, no rashes or lesions noted. - Medical Decision Making 08/03/18 17:11 78 M with progressively worsening weakness and FTT, found to be hypotensive in clinic. Pt noted to have poor PO and progressive decline. Willl evaluate for dehydration. Also consider occult infectious process. - Labs - IVF - Admit
[2018-08-03 15:58] LABS: BASO % 0.8 % (0-2.0); EOS % 2.1 % (0-4.5); HEMATOCRIT 33.6 % (35.4-49); HEMOGLOBIN 11.5 GM/dL (11.7-16.9); LYMPH % 17.7 % (8-40); MCHC 34.2 g/dl (32.0-35.9); MEAN CELL VOLUME 84.7 fl (80-96); MEAN PLT VOLUME 8.1 fl (7.5-11.1); MONO % 6.4 % (3.8-10.2); PLATELET COUNT 120 K/MM3 (134-434); RBC 3.96 M/mm3 (4.00-5.60); RDW 17.4 % (11.9-15.9); WHITE BLOOD COUNT 5.6 K/mm3 (4.0-10.0)
[2018-08-03 17:09] LABS: EPI CELLS 6.5 /HPF (0-5); URINE APPEARANCE CLEAR; URINE BACTERIA 1.17 /hpf (NEGATIVE); URINE BILIRUBIN NEGATIVE (NEGATIVE); URINE CASTS 4 /hpf (0-8); URINE COLOR YELLOW; URINE GLUCOSE (UA) NEGATIVE (NEGATIVE); URINE KETONE NEGATIVE (NEGATIVE); URINE LEUK ESTERASE 2+ (NEGATIVE); URINE NITRITE NEGATIVE (NEGATIVE); URINE PROTEIN TRACE (NEGATIVE); URINE RBC 2 /hpf (0-4); URINE UROBILINOGEN 0.2 mg/dL (0.2-1.0); URINE WBC 67 /hpf (0-5)
[2018-08-03 17:10] LABS: N-TERMINAL BNP 1063.9 pg/ml (5-450)
[2018-08-03 17:38] LABS: ALBUMIN 3.2 g/dl (3.4-5.0); ALK PHOS 87 U/L (45-117); ANION GAP 7 MMOL/L (8-16); BILIRUBIN,TOTAL 0.3 mg/dL (0.2-1); BLOOD UREA NITROGEN 39 mg/dL (7-18); CALCIUM 8.5 mg/dL (8.5-10.1); CHLORIDE 109 mmol/L (98-107); CO2 21 mmol/L (21-32); CREATININE 1.5 mg/dL (0.55-1.3); GLUCOSE,RANDOM 260 mg/dL (74-106); LIPASE 141 U/L (73-393); POTASSIUM 4.8 mmol/L (3.5-5.1); SGOT/AST 39 U/L (15-37); SGPT/ALT 58 U/L (13-61); SODIUM 137 mmol/L (136-145); TOT PROT 6.3 g/dl (6.4-8.2)
[2018-08-03] MEDS ORDERED: CEFTRIAXONE 1,000 MG in DEXTROSE 5%-WATER - 50 ML IVPB ONE (17:50)
[2018-08-03] MEDS ORDERED: SODIUM CHLORIDE 1,000 ML IV SCH (19:00)
--- NOTE | 2018-08-03 19:09 | HP ---
CHIEF COMPLAINT: Generalized weakness, dizziness PCP: Dr. Naranjo HISTORY OF PRESENT ILLNESS: The patient is a 78 yo m w/ PMH Urethral stricture w/ fungemia s/p cystoscopy w/ Dr. Geetha Limon, systolic CHF, achalasia, CAD s/p stenting, HTN who was sent to the ED by his PCP due to decreased bp, generalized weakness, and dehydration. The patient states that since this past summer, he has been feeling progressively worsening generalized weakness and recurrent UTIs. on 07/24 , the patient had a cystoscopy which revealed "a fungal infection in my bladder " and he was treated with Bactrim and Fluconazole for 2 weeks. He followed up with his PCP today. who detected a decreased BP and states that the patient looked pale. For these reasons he was sent for evaluation. The patient also endorses dysphagia 2/2 to his achalasia, but states that it has not affected his eating significantly. The patient denies decreased appetite and states that he eats and drinks well. The patient endorses chronic dizziness since this past summer. Patient denies fevers, chills, sick contacts, dysuria, abdominal pain. ER course was notable for: (1) 1g ceftriaxone Recent Travel: denies PAST MEDICAL HISTORY: see hPI PAST SURGICAL HISTORY: see HPI Social History: Smoking: denies Alcohol: denies Drugs: denies Family History: non-contributory Allergies pregabalin [From Lyrica] Allergy (Severe, Verified 08/03/18 12:35) vertigo/fainted HOME MEDICATIONS: Home Medications Medication Instructions Recorded Bimatoprost [Lumigan] 1 drop OU DAILY 12/24/16 Budesonide/Formeterol Fumarate 2 inh PO BID 12/24/16 [SYMBICORT 160/4.5mcg -] Clopidogrel Bisulfate [Plavix -] 75 mg PO DAILY 12/24/16 Rosuvastatin Calcium [Crestor] 20 mg PO HS 12/24/16 Acetaminophen [Tylenol .Regular 650 mg PO Q4H PRN tablet 07/25/17 Strength -] Albuterol 0.083% Nebulizer Fatuma 1 amp NEB PRN #1 amp 07/25/17 [Ventolin 0.083% Nebulizer Soln -] Albuterol Sulfate Inhaler - 1 - 2 inh PO QID PRN #1 inhaler 07/25/17 [Ventolin HFA Inhaler -] Carvedilol [Coreg -] 3.125 mg PO BID #60 tablet 07/25/17 Tamsulosin HCl [Flomax -] 0.4 mg PO 0830 #30 cap.er.24h 07/25/17 Venlafaxine HCl [Effexor -] 75 mg PO DAILY #30 tablet 07/25/17 Insulin Glargine,Hum.rec.anlog 50 unit SQ HS 08/08/17 [Lantus] Escitalopram Oxalate [Lexapro -] 20 mg PO HS 04/19/18 Furosemide [Lasix] 20 mg PO AM 04/19/18 Sacubitril/Valsartan [Entresto 24 1 tab PO DAILY 04/19/18 mg-26 mg Tablet] Insulin Lispro [Humalog] 0 unit SQ ASDIR 05/30/18 REVIEW OF SYSTEMS CONSTITUTIONAL: Absent: fever, chills, diaphoresis, malaise, loss of appetite, weight change HEENT: Absent: rhinorrhea, nasal congestion, throat pain, throat swelling, difficulty swallowing, mouth swelling, ear pain, eye pain, visual changes CARDIOVASCULAR: Absent: chest pain, syncope, palpitations, irregular heart rate, lightheadedness , peripheral edema RESPIRATORY: Absent: cough, shortness of breath, dyspnea with exertion, orthopnea, wheezing, stridor, hemoptysis GASTROINTESTINAL: Absent: abdominal pain, abdominal distension, nausea, vomiting, diarrhea, constipation, melena, hematochezia GENITOURINARY: Absent: dysuria, frequency, urgency, hesitancy, hematuria, flank pain, genital pain MUSCULOSKELETAL: Absent: myalgia, arthralgia, joint swelling, back pain, neck pain SKIN: Absent: rash, itching, pallor HEMATOLOGIC/IMMUNOLOGIC: Absent: easy bleeding, easy bruising, lymphadenopathy, frequent infections ENDOCRINE: Absent: unexplained weight gain, unexplained weight loss, heat intolerance, cold intolerance NEUROLOGIC: Absent: headache, focal weakness or paresthesias, seizure, mental status changes , bladder or bowel incontinence PSYCHIATRIC: Absent: anxiety, depression, suicidal or homicidal ideation, hallucinations. PHYSICAL EXAMINATION Vital Signs - 24 hr 08/03/18 12:35 Temperature 97.2 F L Pulse Rate 75 Respiratory 22 H Rate Blood Pressure 96/41 L O2 Sat by Pulse 100 Oximetry (%) GENERAL: Awake, alert, and fully oriented, in no acute distress. HEAD: Normal with no signs of trauma. LUNGS: Breath sounds equal, clear to auscultation bilaterally. No wheezes, and no crackles. No accessory muscle use. HEART: Regular rate and rhythm, normal S1 and S2 without murmur, rub or gallop. ABDOMEN: Soft, nontender, not distended, normoactive bowel sounds, no guarding, no rebound, no masses. No hepatomegaly or splenomegaly. LOWER EXTREMITIES: 2+ pulses, warm, well-perfused. No calf tenderness. NEUROLOGICAL: Cranial nerves II-X intact. Normal speech. SKIN: Warm, dry, normal turgor, no rashes or lesions noted, normal capillary refill. Laboratory Results - last 24 hr 08/03/18 08/03/18 08/03/18 15:40 15:40 15:40 WBC RBC Hgb Hct MCV MCH MCHC RDW Plt Count MPV Absolute Neuts (auto) Neutrophils % Lymphocytes % Monocytes % Eosinophils % Basophils % Nucleated RBC % Sodium Cancelled Potassium Cancelled Chloride Cancelled Carbon Dioxide Cancelled Anion Gap Cancelled BUN Cancelled Creatinine Cancelled Creat Clearance w eGFR Cancelled Random Glucose Cancelled Calcium Cancelled Total Bilirubin Cancelled AST Cancelled ALT Cancelled Alkaline Phosphatase Cancelled Creatine Kinase Troponin I B-Natriuretic Peptide Total Protein Cancelled Albumin Cancelled Lipase Cancelled Urine Color Yellow Urine Appearance Clear Urine pH 5.0 Ur Specific [place] 1.014 Urine Protein Trace Urine Glucose (UA) Negative Urine Ketones Negative Urine Blood Trace Urine Nitrite Negative Urine Bilirubin Negative Urine Urobilinogen 0.2 Ur Leukocyte Esterase 2+ H Urine WBC (Auto) 67 Urine RBC (Auto) 2 Urine Casts (Auto) 4 U Epithel Cells (Auto) 6.5 U Sm Round Cell (Auto) Not present Urine Bacteria (Auto) 1.17 Stool Occult Blood Negative 08/03/18 08/03/18 15:40 15:41 WBC 5.6 RBC 3.96 L Hgb 11.5 L Hct 33.6 L MCV 84.7 MCH 29.0 MCHC 34.2 RDW 17.4 H Plt Count 120 L MPV 8.1 Absolute Neuts (auto) 4.1 Neutrophils % 73.0 Lymphocytes % 17.7 D Monocytes % 6.4 Eosinophils % 2.1 D Basophils % 0.8 Nucleated RBC % 0 Sodium 137 Potassium 4.8 Chloride 109 H Carbon Dioxide 21 Anion Gap 7 L BUN 39 H Creatinine 1.5 H Creat Clearance w eGFR 45.50 Random Glucose 260 H Calcium 8.5 Total Bilirubin 0.3 AST 39 H ALT 58 Alkaline Phosphatase 87 Creatine Kinase 70 Troponin I < 0.02 B-Natriuretic Peptide 1063.9 H Total Protein 6.3 L Albumin 3.2 L Lipase 141 Urine Color Urine Appearance Urine pH Ur Specific [place] Urine Protein Urine Glucose (UA) Urine Ketones Urine Blood Urine Nitrite Urine Bilirubin Urine Urobilinogen Ur Leukocyte Esterase Urine WBC (Auto) Urine RBC (Auto) Urine Casts (Auto) U Epithel Cells (Auto) U Sm Round Cell (Auto) Urine Bacteria (Auto) Stool Occult Blood ASSESSMENT/PLAN: The patient is a 78 yo m w/ PMH Urethral stricture w/ fungemia s/p cystoscopy w/ Dr. Geetha Limon, systolic CHF, achalasia, CAD s/p stenting, HTN who was sent to the ED for evaluation of generalized weakness and dizziness. #Hypotension, Dizziness -monitor BP -gentle hydration; LR @ 30; set to stop @ 6am -check orthostatic vital signs -Echo in AM #chronic dysphagia w/ achalasia -speech and swallow consult -may contribute to patient's dehydration #sCHF w/ AICD -last documented echo w/ EF 29% -recheck echo -holding lasix while hydrating, consider restarting in AM #COPD -resume home inhalers -pulm consult #DM -BGM ACHS -ISS ACHS #HTN -holding BP meds while hypotensive #FEN -LR@ 30 -monitor lytes, replete PRN -diabetic diet #Prophy -SCDs #Dispo -observe on med surg -medications verified with pt pharmacy Visit type - Emergency Visit Emergency Visit: Yes ED Registration Date: 08/03/18 Care time: The patient presented to the Emergency Department on the above date and was hospitalized for further evaluation of their emergent condition. - New Patient This patient is new to me today: Yes Date on this admission: 08/04/18 - Critical Care Critical Care patient: No
[2018-08-03] MEDS ORDERED: CEFTRIAXONE 1 GM/50 ML BAG ONE (19:12)
--- NOTE | 2018-08-03 19:27 | PN ---
Teaching Attending Note Name of Resident: Thien Almanzar ATTENDING PHYSICIAN STATEMENT I saw and evaluated the patient. I reviewed the resident's note and discussed the case with the resident. I agree with the resident's findings and plan as documented. PCP: Dr. Jo SUBJECTIVE: Seen and examined; please refer to the resident note for further historical information. Briefly, this is a 78 y/o male with a PMH as stated being sent in by PCP for low BP, FTT, weakness. Since summer has had generalized functional decline. He has had recurring UTIs and recent cystoscopy. Per patient he was started on fluconazole for 2 weeks which he did finish as well as bacterim. He feels no different than his baseline. He has had stable dizziness gradually worsening over the months. Endorses chronic dysphagia (food coming back up, moreso solids); he was seen by GI for this back in 05/2018 and speech and swallow eval reviewed: silent aspiration on all liquids. limited evaluation of esophagus however it appeared to empty. At that time there was unclear etiology of oropharyngeal dysphagia so he was referred to ENT, and neurology. EGD 07/24 that revealed a B II anastamosis, 2 cm sliding hiatal hernia. Given his history of achlasia he was also referred to follow-up with motility specialist given prior history of achalasia: Dr. Yung Aponte. He was seen by Madhuri Stene as well. 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, PUD s/p partial gastrectomy (Bilroth Type II), HTN, HLD, COPD with 60 pack year history), PSH, Family Hx, Social Hx reviewed Medication List reviewed; reconciliation pending Home Medications Medication Instructions Recorded Bimatoprost [Lumigan] 1 drop OU DAILY 12/24/16 Budesonide/Formeterol Fumarate 2 inh PO BID 12/24/16 [SYMBICORT 160/4.5mcg -] Clopidogrel Bisulfate [Plavix -] 75 mg PO DAILY 12/24/16 Rosuvastatin Calcium [Crestor] 20 mg PO HS 12/24/16 Carvedilol [Coreg -] 3.125 mg PO BID #60 tablet 07/25/17 Tamsulosin HCl [Flomax -] 0.4 mg PO 0830 #30 cap.er.24h 07/25/17 Insulin Glargine,Hum.rec.anlog 54 unit SQ HS 08/08/17 [Lantus] Escitalopram Oxalate [Lexapro -] 20 mg PO HS 04/19/18 Furosemide [Lasix] 20 mg PO AM 04/19/18 Sacubitril/Valsartan [Entresto 24 1 tab PO BID 04/19/18 mg-26 mg Tablet] Albuterol Sulfate [Proair Hfa] 2 puff IH TID PRN 08/03/18 OBJECTIVE: VS, labs, imaging reviewed NAD, AAO, resting comfortably in bed NC AT EOMI PERRLA RRR s1/2 no mgr Lungs CTAB, w/ sym exp NT ND +BS CN2-12 wnl, no fnd Normal mood, appropriate behavior CXR unchanged since 07/02 ASSESSMENT AND PLAN: Patient presents from PCP office with low BP and FTT with weakness; he is noted to be chronically dizzy. 1) Hypotension -Low normal pressures here which would be expected with severe systolic CHF ( last EF documented ~25%) but may be exacerbated by poor intake. -Very low rate overnight IVF; no s/s fluid overload. DC in AM. -Check orthostatic VS 2) Dizziness, chronic -Recheck echo, consider carotid dopplers 3) Chronic Dysphagia with history Achlasia -Unchanged from baseline; seen by GI in the past recommended followup with ENT and potentially neuro. 4) Severe CHF s/p AICD -Resume PM lasix if negative orthostatics -Continue other home meds as documented. 5) COPD -No acute exacerbation; continue home inhalers. 6) DM -Continue basal, SSI when inpatient. 7) PAD -Noted; neurovascularly intact. Continue home meds. 8) HTN 9) HLD 10) PUD s/p partial gastrectomy
[2018-08-03] MEDS ORDERED: LACTATED RINGERS SOLUTION 1,000 ML/1,000 ML INFUS.BAG IV SCH (21:30)
[2018-08-03] MEDS ORDERED: ALBUTEROL SO4 8 GM HFA INHALER IH PRN (21:42)
--- NOTE | 2018-08-03 21:49 | EKG ---
Test Reason : Blood Pressure : / mmHG Vent. Rate : 067 BPM Atrial Rate : 067 BPM P-R Int : 238 ms QRS Dur : 114 ms QT Int : 426 ms P-R-T Axes : 000 -01 099 degrees QTc Int : 450 ms POOR DATA QUALITY, INTERPRETATION MAY BE ADVERSELY AFFECTED SINUS RHYTHM WITH 1ST DEGREE A-V BLOCK POSSIBLE ANTERIOR INFARCT (CITED ON OR BEFORE 30-MAY-2018) T WAVE ABNORMALITY, CONSIDER INFEROLATERAL ISCHEMIA ABNORMAL ECG WHEN COMPARED WITH ECG OF 02-JUL-2018 13:26, NO SIGNIFICANT CHANGE WAS FOUND Confirmed by MD JACKLYN, GRETEL ([id number]) on 08/03/2018 9:49:04 PM Referred By: Confirmed By:GRETEL VILLASENOR MD
[2018-08-03] MEDS ORDERED: INSULIN SLIDING SCALE (NOVOLOG) 1 VIAL SQ SCH (22:00)
[2018-08-03] MEDS: CARVEDILOL 3.125 MG TABLET (FP) PO SCH (22:26)
[2018-08-03] MEDS: ESCITALOPRAM OXALATE 20 MG TABLET (FP) PO SCH (22:26)
[2018-08-03] MEDS: MELATONIN 5 MG TABLETS PO PRN (22:26)
[2018-08-03] MEDS: ROSUVASTATIN CA 20 MG TABLET (FP) PO SCH (22:26)
[2018-08-03] MEDS: BUDESONIDE/FORMETEROL FUMARATE 160/4.5 mcg INHALER IH SCH (22:27)
[2018-08-03] MEDS: INSULIN SLIDING SCALE (NOVOLOG) 1 VIAL SQ SCH (22:27)
[2018-08-03 23:06] VITALS: BMI 25.9
[2018-08-04] MEDS: INSULIN SLIDING SCALE (NOVOLOG) 1 VIAL SQ SCH ×4 (06:50→21:46)
[2018-08-04] MEDS: HEPARIN NA (PORCINE) 5,000 UNITS/ML 1ML VIAL SQ SCH ×2 (06:50→14:45)
[2018-08-04 07:20] LABS: HEMATOCRIT 31.1 % (35.4-49); HEMOGLOBIN 10.9 GM/dL (11.7-16.9); MCH 29.1 pg (25.7-33.7); MCHC 35.1 g/dl (32.0-35.9); MEAN CELL VOLUME 82.8 fl (80-96); MEAN PLT VOLUME 7.8 fl (7.5-11.1); PLATELET COUNT 124 K/MM3 (134-434); RBC 3.76 M/mm3 (4.00-5.60); RDW 17.5 % (11.9-15.9); WHITE BLOOD COUNT 5.3 K/mm3 (4.0-10.0)
[2018-08-04 07:37] LABS: ANION GAP 7 MMOL/L (8-16); BLOOD UREA NITROGEN 35 mg/dL (7-18); CALCIUM 8.4 mg/dL (8.5-10.1); CHLORIDE 114 mmol/L (98-107); CO2 19 mmol/L (21-32); CREATININE 1.3 mg/dL (0.55-1.3); GLUCOSE,RANDOM 111 mg/dL (74-106); MAGNESIUM 2.1 mg/dL (1.8-2.4); PHOSPHOROUS 4.1 mg/dL (2.5-4.9); POTASSIUM 4.2 mmol/L (3.5-5.1); SODIUM 140 mmol/L (136-145)
[2018-08-04 07:41] LABS: INR 0.99 (0.83-1.09); PROTHROMBIN TIME (PATIENT) 11.7 SEC (9.7-13.0)
[2018-08-04 07:44] LABS: ACTIVATED PTT 30.2 SECONDS (25.2-36.5)
--- NOTE | 2018-08-04 09:17 | CONSULT ---
Admitting History and Physical - Primary Care Physician PCP: Brian Munroe - Admission History of Present Illness: 78 yo m w/ PMH Urethral stricture w/ fungemia s/p cystoscopy 07/24/18, systolic CHF, achalasia, CAD s/p stenting, HTN admitted for generalized weakness and dizziness. 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 Pt well known to me from previous w/u. He had 2 mbs,first 2016 and last was done on 06/01/18. He silently aspirated on all liquids with head in neutral, eliminated with small sips with chin tuck on nectar and honey thick liquid. Limited esophageal assessment. Etiology of aspiration was unclear at that time and I recommended GI/ further imaging of esophagus and ENT consult to visualize vocal cords. Pt did not comply with thick liquids once d/c'd home and did not get GI/ esophageal w/u or ENT assessment. He reports bringing up/spitting up food and liquid throughout meals. He denies h /o PNA but has "a lot of phlegm." He says he "stopped eating in reclined position and sits up a little" Pt seen bedside reclining to 30 degrees. He said he ate eggs pancakes this am but coughs and spits it up repeatedly while eating.He reports feeling "lousy for a year." Selected Entries 08/03/18 20:41 Difficulty Yes chewing/ swallowing Eating (Feeding Independent ) Ability Poor intake of No food or fluids over the last 7 days Unintentional No Weight Loss Laboratory Tests 08/04/18 06:00 WBC 5.3 CXR (-) History Source: Patient Limitations to Obtaining History: No Limitations - Past Medical History Cardiovascular: Yes: CAD, CHF, ND, Other (s/p stent) Pulmonary: Yes: Asthma, COPD, Other (CA lung) Gastrointestinal: Yes: Constipation, Other Renal/: Yes: BPH, Other Heme/Onc: Yes: Cancer (Lung) Musculoskeletal: Yes: Chronic low back pain, Osteoarthritis - Past Surgical History Past Surgical History: Yes: Cholecystectomy, Permanent Pacemaker - Smoking History Smoking history: Former smoker Have you smoked in the past 12 months: Yes Aproximately how many cigarettes per day: 5 If you are a former smoker, when did you quit?: FEW MONTHS - Alcohol/Substance Use Hx Alcohol Use: Yes History of Substance Use: reports: None - Social History ADL: Independent Occupation: retired: worked for [employer] History of Recent Travel: No History - Admission Reason For Visit: UTI/WEAKNESS/FAILURE TO THRIVE IN ADULT - Diagnostics X-ray: Report Reviewed - General Mental Status: Alert and Oriented, Awake and Alert, Able to Follow Commands Attention: Intact Ability to Follow Directions: Excellent Head/Neck Control: WFL - Hearing Hearing: Normal Hearing Aide: No With Patient: No Speech Evaluation - Communication Primary Language: [place] Communication: Yes: Within Normal Limits Oral Expression Ability: Yes: No Impairment - Speech Production Able to Make Needs Known: Yes: WNL Intelligibility: Yes: WNL - Speech Characteristics Voice Loudness: Normal Voice Pitch: Yes: Normal Voice Phonatory-based Quality: Yes: Normal Speech Pattern: Normal Nasal Resonance: Normal Articulation: Yes: Precise - Language/Auditory Comprehension Follows: Yes: 2 Stage Simple Commands - Language/Verbal Expression Able to Respond to Simple Queries: Yes: WNL Able to Communicate Wants and Needs: Yes: WNL Functional Communication Status: Yes: WNL - 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 Memory: Yes: WNL Short Term Memory: Yes: WNL - Swallow Evaluation/Bedside Assessment Current Nutritional Intake: Regular, Thin Liquids Dentition: Yes: Adequate, Edentulous (lower), Dental Appliance Upper Facial Symmetry at Rest: Symmetrical Facial Symmetry on Retraction: Symmetrical Against Resistance Opening: Normal Against Resistance Closing: Normal Pucker Lips: Normal Smile: Normal Lingual Movement: Normal, Symmetric Lingual Speed of Movement: Normal Lingual Movement Strgth Against Opposition: Normal Lingual Movement Characteristics: Normal Velopharyngeal Movement: Normal Laryngeal Elevation: WFL Laryngeal Movement: Able to Palpate Rate of Intake: WFL Bolus Size: WFL Labial Seal: WFL Chewing: WFL Oral Prep Time: WFL A-P Transit: WFL Timing of Swallow: WFL Coughing/Throat Clear: No Change in Voice: No Recommendations - Speech Evaluation, Impression/Plan Impression: r/o pharyngeal/esophageal Dysphagia with aspiration on May 2018 MBS and pt bringing up food/liquid soon after intake. - Dysphagia Impressions/Plan Swallowing Skills: Impaired Dysphagia Impressions: Ongoing Evaluation *Silent aspiration: cannot be R/O at bedside Recommendations: GI Consult, MBS w Esophagus
[2018-08-04] MEDS: CLOPIDOGREL BISULFATE 75 MG TABLET (FP) PO SCH (09:48)
[2018-08-04] MEDS: CARVEDILOL 3.125 MG TABLET (FP) PO SCH ×2 (09:48→21:45)
[2018-08-04] MEDS: BUDESONIDE/FORMETEROL FUMARATE 160/4.5 mcg INHALER IH SCH ×2 (09:49→21:48)
[2018-08-04] MEDS ORDERED: CEFTRIAXONE 1,000 MG in DEXTROSE 5%-WATER - 50 ML IVPB SCH (10:00)
[2018-08-04] MEDS ORDERED: CEFTRIAXONE 1 GM in DEXTROSE 5%-WATER - 50 ML IVPB SCH (10:00)
[2018-08-04] MEDS: LACTATED RINGERS SOLUTION 1,000 ML/1,000 ML INFUS.BAG IV SCH (12:34)
[2018-08-04] MEDS ORDERED: cefTRIAXone SODIUM 1 GM VIAL ONE (12:35)
[2018-08-04] MEDS ORDERED: DEXTROSE 5%-WATER - 50 ML IVPB ONE (12:35)
[2018-08-04] MEDS: CEFTRIAXONE 1 GM in DEXTROSE 5%-WATER - 50 ML IVPB SCH (12:38)
--- NOTE | 2018-08-04 14:07 | PN ---
Physical Exam: SUBJECTIVE: Patient seen and examined at bedside. States he has dehydration, c/ o generalized weakness and dizziness, otherwise no acute complaints or discomfort. Denies dysuria. Denies dyspnea. OBJECTIVE: Vital Signs Period Temp Pulse Resp BP Sys/Garcia Pulse Ox Last 24 Hr 97.5 F-98 F 58-84 18-18 91-145/49-66 96-100 GENERAL: A&Ox3, NAD HEENT: NC/AT, PERRLA, EOMI, MMM NECK: Trachea midline, full range of motion, supple. LUNGS: CTA b/l HEART: RRR no m/r/g ABDOMEN: +bs, soft, NT, ND EXTREMITIES: 2+ pulses, warm, well-perfused, no edema. 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 SKIN: Warm, dry, normal turgor, no rashes or lesions noted Laboratory Results - last 24 hr 08/03/18 08/03/18 08/03/18 15:40 15:40 15:40 WBC RBC Hgb Hct MCV MCH MCHC RDW Plt Count MPV Absolute Neuts (auto) Neutrophils % Lymphocytes % Monocytes % Eosinophils % Basophils % Nucleated RBC % PT with INR INR PTT (Actin FS) Sodium Cancelled Potassium Cancelled Chloride Cancelled Carbon Dioxide Cancelled Anion Gap Cancelled BUN Cancelled Creatinine Cancelled Creat Clearance w eGFR Cancelled POC Glucometer Random Glucose Cancelled Calcium Cancelled Phosphorus Magnesium Total Bilirubin Cancelled AST Cancelled ALT Cancelled Alkaline Phosphatase Cancelled Creatine Kinase Troponin I B-Natriuretic Peptide Total Protein Cancelled Albumin Cancelled Lipase Cancelled Urine Color Yellow Urine Appearance Clear Urine pH 5.0 Ur Specific [place] 1.014 Urine Protein Trace Urine Glucose (UA) Negative Urine Ketones Negative Urine Blood Trace Urine Nitrite Negative Urine Bilirubin Negative Urine Urobilinogen 0.2 Ur Leukocyte Esterase 2+ H Urine WBC (Auto) 67 Urine RBC (Auto) 2 Urine Casts (Auto) 4 U Epithel Cells (Auto) 6.5 U Sm Round Cell (Auto) Not present Urine Bacteria (Auto) 1.17 Stool Occult Blood Negative HIV 1&2 Antibody Screen HIV P24 Antigen 08/03/18 08/03/18 08/03/18 15:40 15:41 21:17 WBC 5.6 RBC 3.96 L Hgb 11.5 L Hct 33.6 L MCV 84.7 MCH 29.0 MCHC 34.2 RDW 17.4 H Plt Count 120 L MPV 8.1 Absolute Neuts (auto) 4.1 Neutrophils % 73.0 Lymphocytes % 17.7 D Monocytes % 6.4 Eosinophils % 2.1 D Basophils % 0.8 Nucleated RBC % 0 PT with INR INR PTT (Actin FS) Sodium 137 Potassium 4.8 Chloride 109 H Carbon Dioxide 21 Anion Gap 7 L BUN 39 H Creatinine 1.5 H Creat Clearance w eGFR 45.50 POC Glucometer 243 Random Glucose 260 H Calcium 8.5 Phosphorus Magnesium Total Bilirubin 0.3 AST 39 H ALT 58 Alkaline Phosphatase 87 Creatine Kinase 70 Troponin I < 0.02 B-Natriuretic Peptide 1063.9 H Total Protein 6.3 L Albumin 3.2 L Lipase 141 Urine Color Urine Appearance Urine pH Ur Specific [place] Urine Protein Urine Glucose (UA) Urine Ketones Urine Blood Urine Nitrite Urine Bilirubin Urine Urobilinogen Ur Leukocyte Esterase Urine WBC (Auto) Urine RBC (Auto) Urine Casts (Auto) U Epithel Cells (Auto) U Sm Round Cell (Auto) Urine Bacteria (Auto) Stool Occult Blood HIV 1&2 Antibody Screen HIV P24 Antigen 08/04/18 08/04/18 08/04/18 05:53 06:00 06:00 WBC 5.3 RBC 3.76 L Hgb 10.9 L Hct 31.1 L MCV 82.8 MCH 29.1 MCHC 35.1 RDW 17.5 H Plt Count 124 L MPV 7.8 Absolute Neuts (auto) Neutrophils % Lymphocytes % Monocytes % Eosinophils % Basophils % Nucleated RBC % PT with INR 11.70 INR 0.99 PTT (Actin FS) 30.2 Sodium Potassium Chloride Carbon Dioxide Anion Gap BUN Creatinine Creat Clearance w eGFR POC Glucometer 120 Random Glucose Calcium Phosphorus Magnesium Total Bilirubin AST ALT Alkaline Phosphatase Creatine Kinase Troponin I B-Natriuretic Peptide Total Protein Albumin Lipase Urine Color Urine Appearance Urine pH Ur Specific [place] Urine Protein Urine Glucose (UA) Urine Ketones Urine Blood Urine Nitrite Urine Bilirubin Urine Urobilinogen Ur Leukocyte Esterase Urine WBC (Auto) Urine RBC (Auto) Urine Casts (Auto) U Epithel Cells (Auto) U Sm Round Cell (Auto) Urine Bacteria (Auto) Stool Occult Blood HIV 1&2 Antibody Screen HIV P24 Antigen 08/04/18 08/04/18 08/04/18 06:00 06:00 12:13 WBC RBC Hgb Hct MCV MCH MCHC RDW Plt Count MPV Absolute Neuts (auto) Neutrophils % Lymphocytes % Monocytes % Eosinophils % Basophils % Nucleated RBC % PT with INR INR PTT (Actin FS) Sodium 140 Potassium 4.2 Chloride 114 H Carbon Dioxide 19 L Anion Gap 7 L BUN 35 H Creatinine 1.3 Creat Clearance w eGFR 53.67 POC Glucometer 168 Random Glucose 111 H Calcium 8.4 L Phosphorus 4.1 Magnesium 2.1 Total Bilirubin AST ALT Alkaline Phosphatase Creatine Kinase Troponin I B-Natriuretic Peptide Total Protein Albumin Lipase Urine Color Urine Appearance Urine pH Ur Specific [place] Urine Protein Urine Glucose (UA) Urine Ketones Urine Blood Urine Nitrite Urine Bilirubin Urine Urobilinogen Ur Leukocyte Esterase Urine WBC (Auto) Urine RBC (Auto) Urine Casts (Auto) U Epithel Cells (Auto) U Sm Round Cell (Auto) Urine Bacteria (Auto) Stool Occult Blood HIV 1&2 Antibody Screen Negative HIV P24 Antigen Negative Active Medications Generic Name Dose Route Start Last Admin Trade Name Freq PRN Reason Stop Dose Admin Albuterol Sulfate 2 puff 08/03/18 21:42 Ventolin Hfa Inhaler - IH Q8H PRN SHORTNESS OF BREATH Budesonide/Formoterol Fumarate 2 puff 08/03/18 22:00 08/04/18 09:49 Symbicort 160/4.5mcg - IH 2 puff BID KADEEM Administration Carvedilol 3.125 mg 08/03/18 22:00 08/04/18 09:48 Coreg - PO 3.125 mg BID KADEEM Administration Clopidogrel Bisulfate 75 mg 08/04/18 10:00 08/04/18 09:48 Plavix - PO 75 mg DAILY KADEEM Administration Escitalopram Oxalate 20 mg 08/03/18 22:00 08/03/18 22:26 Lexapro - PO 20 mg HS KADEME Administration Heparin Sodium (Porcine) 5,000 unit 08/04/18 06:00 08/04/18 06:50 Heparin - SQ 5,000 unit TID KADEEM Administration Ceftriaxone Sodium 1 gm/ 50 mls @ 100 mls/hr 08/04/18 12:30 08/04/18 12:38 Dextrose IVPB 100 mls/hr DAILY KADEEM Administration Protocol Lactated Ringer's 1,000 ml in 1,000 mls @ 42 mls/hr 08/04/18 12:30 08/04/18 12:34 Lactated Ringers Solution IV 42 mls/hr ASDIR KADEEM Administration Insulin Aspart 1 vial 08/03/18 22:00 08/04/18 12:27 Novolog Vial Sliding Scale - SQ 2 unit ACHS KADEEM Administration Protocol Melatonin 10 mg 08/03/18 19:02 08/03/18 22:26 Melatonin PO 10 mg HS PRN Administration INSOMNIA Rosuvastatin Calcium 20 mg 08/03/18 22:00 08/03/18 22:26 Crestor - PO 20 mg HS KADEEM Administration ASSESSMENT/PLAN: 78 y/o M w/ PMHx urethral stricture c/b fungemia s/p cystoscopy 07/24/18 w/ Dr. Geetha Limon, systolic CHF (EF 25% on most recent echo), achalasia, CAD s/p stenting, HTN, DM sent to the ED for evaluation of generalized weakness and dizziness. #UTI -UA+, UCx pending -empiric ceftriaxone, await UCx, may consult urology given recent instrumentation #Hypotension, Dizziness -supine vitals stable, significant orthostasis noted -giving gentle hydration and will repeat orthostatics -Echo pending #chronic dysphagia w/ achalasia -speech/swallow following -MBS showing esophageal narrowing with stasis of barium pill -empiric diet and GI consult per S/S recommendations #sCHF w/ AICD -last documented echo w/ EF 29% -recheck echo -holding Lasix given orthostasis #COPD -stable -resume home inhalers -pulm consult #DM -BGM ACHS -ISS ACHS #HTN -holding BP meds while hypotensive #FEN -LR@ 42 -monitor lytes, replete PRN -dysphagia chopped diet per S/S parameters #PPx -DVT: SCDs -GI: not indicated #Dispo -observe on med surg Visit type - Emergency Visit Emergency Visit: No - New Patient This patient is new to me today: Yes Date on this admission: 08/04/18 - Critical Care Critical Care patient: No
--- NOTE | 2018-08-04 14:28 | ECHO ---
Name: LIAM QUINTEROS Exam:Adult Echocardiogram Study Date: 08/04/2018 10:52 AM Age: 78 yrs Reason For Study: DIZZINESS Height: 71 in Weight: 180 lb BSA: 2.0 m2 MMode/2D Measurements & Calculations IVSd: 1.1 cm Ao root diam: 3.4 cm LVIDd: 4.5 cm LA dimension: 4.2 cm LVIDs: 3.6 cm LVPWd: 1.2 cm EDV(Teich): 93.1 ml LVOT diam: 2.0 cm ESV(Teich): 55.5 ml Doppler Measurements & Calculations Ao V2 max: 104.5 cm/sec LV V1 max P.5 mmHg Ao max P.4 mmHg LV V1 max: 62.1 cm/sec MASTER(V,D): 1.9 cm2 MR max praful: 290.7 cm/sec TR max praful: 262.9 cm/sec MR max P.8 mmHg TR max P.7 mmHg PA V2 max: 78.7 cm/sec Med Peak E' Praful: 4.6 cm/sec PA max P.5 mmHg Lat Peak E' Praful: 6.1 cm/sec Procedure A two-dimensional transthoracic echocardiogram with color flow and Doppler was performed. The study w as technically difficult with many images being suboptimal in quality. Left Ventricle The left ventricle is normal in size. Left ventricular systolic function is moderately reduced. There is moderate global hypokinesis of the left ventricle. Regional wall motion abnormalities cannot be exclu ded due to limited visualization. Right Ventricle The right ventricle is not well visualized. Atria The left atrium is mildly dilated. The right atrium is mildly dilated. Mitral Valve There is mild mitral valve thickening. There is no mitral valve stenosis. There is mild to moderate m itral regurgitation. Tricuspid Valve There is mild tricuspid valve thickening. There is no tricuspid stenosis. There is mild tricuspid regurgitation. Right ventricular systolic pressure is normal. Aortic Valve The aortic valve is normal in structure and function. No hemodynamically significant valvular aortic stenosis. No aortic regurgitation is present. Great Vessels The aortic root is normal size. Pericardium/Pleura There is no pericardial effusion. Interpretation Summary The left ventricle is normal in size. Left ventricular systolic function is moderately reduced. There is moderate global hypokinesis of the left ventricle. There is mild tricuspid regurgitation. Right ventricular systolic pressure is normal. The study was technically difficult with many images being suboptimal in quality. Regional wall motion abnormalities cannot be excluded due to limited visualization. The left atrium is mildly dilated. The right atrium is mildly dilated. There is mild to moderate mitral regurgitation. MD Carlos Brennan 08/04/2018 02:27 PM
--- NOTE | 2018-08-04 16:54 | PN ---
Progress Note (short form) - Note Progress Note: PULMONARY CONSULTATION DICTATED 08/04/18 IMP COPD HYPOTENSION CHF SEVERE LV DYSFUNCTION S/P AICD ASHD S/P CABG PVD IDDM WEAKNESS H/O PARTIAL GASTRECTOMY CKD UTI PLAN GENTLE HYDRATION INHALED BRONCHODILATORS ABX CULTURES O2 MONITOR BP ,ORTHOSTATICS CHEST CT DR DELVALLE Problem List - Problems (1) Hypotension Code(s): I95.9 - HYPOTENSION, UNSPECIFIED (2) Hypotension Code(s): I95.9 - HYPOTENSION, UNSPECIFIED (3) Failure to thrive in adult Code(s): R62.7 - ADULT FAILURE TO THRIVE (4) Generalized weakness Code(s): R53.1 - WEAKNESS (5) Acute on chronic renal insufficiency Code(s): N28.9 - DISORDER OF KIDNEY AND URETER, UNSPECIFIED; N18.9 - CHRONIC KIDNEY DISEASE, UNSPECIFIED (6) Anemia Code(s): D64.9 - ANEMIA, UNSPECIFIED Qualifiers: Anemia type: due to chronic kidney disease Chronic kidney disease stage: stage 3 (moderate) Qualified Code(s): N18.3 - Chronic kidney disease, stage 3 (moderate); D63.1 - Anemia in chronic kidney disease; D63.1 - Anemia in chronic kidney disease (7) CAD (coronary artery disease) Code(s): I25.10 - ATHSCL HEART DISEASE OF [place] CORONARY ARTERY W/O ANG PCTRS Qualifiers: Coronary Disease-Associated Artery/Lesion type: [place] artery [place] vs. transplanted heart: [place] heart Associated angina: without angina Qualified Code(s): I25.10 - Atherosclerotic heart disease of [place] coronary artery without angina pectoris (8) CKD (chronic kidney disease) Code(s): N18.9 - CHRONIC KIDNEY DISEASE, UNSPECIFIED Qualifiers: Chronic kidney disease stage: stage 3 (moderate) Qualified Code(s): N18.3 - Chronic kidney disease, stage 3 (moderate) (9) COPD (chronic obstructive pulmonary disease) Code(s): J44.9 - CHRONIC OBSTRUCTIVE PULMONARY DISEASE, UNSPECIFIED Qualifiers: COPD type: unspecified COPD Qualified Code(s): J44.9 - Chronic obstructive pulmonary disease, unspecified (10) Congestive heart failure Code(s): I50.9 - HEART FAILURE, UNSPECIFIED (11) Hx of CABG Code(s): Z95.1 - PRESENCE OF AORTOCORONARY BYPASS GRAFT (12) PVD (peripheral vascular disease) Code(s): I73.9 - PERIPHERAL VASCULAR DISEASE, UNSPECIFIED
[2018-08-04] MEDS ORDERED: ZOLPIDEM TARTRATE 5 MG TABLET PO ONE ×2 (19:26→22:00)
--- NOTE | 2018-08-04 20:39 | PN ---
Teaching Attending Note Name of Resident: Nabeel Chanel ATTENDING PHYSICIAN STATEMENT I saw and evaluated the patient. I reviewed the resident's note and discussed the case with the resident. I agree with the resident's findings and plan as documented. SUBJECTIVE: Still reports lightheadedness on standing. No dysuria/hematuria/ fever/chills. OBJECTIVE: Afebrile, Hemodynamically Stable but does have positive orthostatic changes in BP. Last Vital Signs Temp Pulse Resp BP Pulse Ox 97.0 F L 60 20 128/56 L 98 08/04/18 18:00 08/04/18 18:00 08/04/18 18:00 08/04/18 18:00 08/04/18 11:00 HEENT - Normocephalic Heart - S1, S2, RRR Lungs - clear to auscultation Abdomen - Soft, non-tender. Bowel Sounds normal. Extremities - no edema, no calf tenderness. Laboratory Results - last 24 hr 08/03/18 08/04/18 08/04/18 21:17 05:53 06:00 WBC 5.3 RBC 3.76 L Hgb 10.9 L Hct 31.1 L MCV 82.8 MCH 29.1 MCHC 35.1 RDW 17.5 H Plt Count 124 L MPV 7.8 PT with INR INR PTT (Actin FS) Sodium Potassium Chloride Carbon Dioxide Anion Gap BUN Creatinine Creat Clearance w eGFR POC Glucometer 243 120 Random Glucose Calcium Phosphorus Magnesium HIV 1&2 Antibody Screen HIV P24 Antigen 08/04/18 08/04/18 08/04/18 06:00 06:00 06:00 WBC RBC Hgb Hct MCV MCH MCHC RDW Plt Count MPV PT with INR 11.70 INR 0.99 PTT (Actin FS) 30.2 Sodium 140 Potassium 4.2 Chloride 114 H Carbon Dioxide 19 L Anion Gap 7 L BUN 35 H Creatinine 1.3 Creat Clearance w eGFR 53.67 POC Glucometer Random Glucose 111 H Calcium 8.4 L Phosphorus 4.1 Magnesium 2.1 HIV 1&2 Antibody Screen Negative HIV P24 Antigen Negative 08/04/18 08/04/18 12:13 17:12 WBC RBC Hgb Hct MCV MCH MCHC RDW Plt Count MPV PT with INR INR PTT (Actin FS) Sodium Potassium Chloride Carbon Dioxide Anion Gap BUN Creatinine Creat Clearance w eGFR POC Glucometer 168 293 Random Glucose Calcium Phosphorus Magnesium HIV 1&2 Antibody Screen HIV P24 Antigen Current Medications Generic Name Dose Route Start Last Admin Trade Name Alex PRN Reason Stop Dose Admin Albuterol Sulfate 2 puff 08/03/18 21:42 Ventolin Hfa Inhaler - IH Q8H PRN SHORTNESS OF BREATH Budesonide/Formoterol Fumarate 2 puff 08/03/18 22:00 08/04/18 09:49 Symbicort 160/4.5mcg - IH 2 puff BID KADEEM Administration Carvedilol 3.125 mg 08/03/18 22:00 08/04/18 09:48 Coreg - PO 3.125 mg BID KADEEM Administration Clopidogrel Bisulfate 75 mg 08/04/18 10:00 08/04/18 09:48 Plavix - PO 75 mg DAILY KADEEM Administration Escitalopram Oxalate 20 mg 08/03/18 22:00 08/03/18 22:26 Lexapro - PO 20 mg HS KADEEM Administration Heparin Sodium (Porcine) 5,000 unit 08/04/18 06:00 08/04/18 14:45 Heparin - SQ 5,000 unit TID KADEEM Administration Ceftriaxone Sodium 1 gm/ 50 mls @ 100 mls/hr 08/04/18 12:30 08/04/18 12:38 Dextrose IVPB 100 mls/hr DAILY KADEEM Administration Protocol Lactated Ringer's 1,000 ml in 1,000 mls @ 42 mls/hr 08/04/18 12:30 08/04/18 12:34 Lactated Ringers Solution IV 42 mls/hr ASDIR KADEEM Administration Insulin Aspart 1 vial 08/03/18 22:00 08/04/18 17:31 Novolog Vial Sliding Scale - SQ 6 unit ACHS KADEEM Administration Protocol Melatonin 10 mg 08/03/18 19:02 08/03/18 22:26 Melatonin PO 10 mg HS PRN Administration INSOMNIA Rosuvastatin Calcium 20 mg 08/03/18 22:00 08/03/18 22:26 Crestor - PO 20 mg HS KADEEM Administration Zolpidem Tartrate 5 mg 08/04/18 22:00 Ambien - PO 08/04/18 22:01 ONCE ONE Home Medications Medication Instructions Recorded Bimatoprost [Lumigan] 1 drop OU DAILY 12/24/16 Budesonide/Formeterol Fumarate 2 inh PO BID 12/24/16 [SYMBICORT 160/4.5mcg -] Clopidogrel Bisulfate [Plavix -] 75 mg PO DAILY 12/24/16 Rosuvastatin Calcium [Crestor] 20 mg PO HS 12/24/16 Carvedilol [Coreg -] 3.125 mg PO BID #60 tablet 07/25/17 Tamsulosin HCl [Flomax -] 0.4 mg PO 0830 #30 cap.er.24h 07/25/17 Insulin Glargine,Hum.rec.anlog 54 unit SQ HS 08/08/17 [Lantus] Escitalopram Oxalate [Lexapro -] 20 mg PO HS 04/19/18 Furosemide [Lasix] 20 mg PO AM 04/19/18 Sacubitril/Valsartan [Entresto 24 1 tab PO BID 04/19/18 mg-26 mg Tablet] Albuterol Sulfate [Proair Hfa] 2 puff IH TID PRN 08/03/18 ASSESSMENT AND PLAN: 78 year old male with history of Chronic Systolic CHF (EF 25-30%), s/p AICD, CAD s/p CABG, PAD s/p Fem-Pop bypass, DM 2, BPH, Hx Achalasia s/p Heller's Myotomy with residual Dysphagia, Depression, PUD s/p partial gastrectomy (Broth Type II), HTN, HLD, COPD, ex-smoker, presented with increasing weakness, dizziness, worsening dysphagia with regurgitation, recent cystoscopy and treatment for UTI with Fluconazole and BActrim, fpound to have hypotension. 1. Dizziness secondary to Orthostatic Hypotension secondary to dehydration - multifactorial - UTI + Lasix UA positive, awiting Urine Cx - on empiric Ceftriaxone pending UCx. Gentle IV hydration Will repeat Orthostatic vitals and consider resuming Lasix at lower dose perhaps if BP normalizes and he is asymptomatic. 2. Chronic Dysphagia secondary to Achalasia MBS shows possible stricture. GI consulted for eval for possible EGD 3. Chronic Systolic CHF with EF 25% s/p AICD repeat Echo - moderately reduced EF with global hypokinesis No evidence of acute decompensation. Lasix held currently due to symptomatic orthostatic hypotension. 4. COPD - no evidence of decompensation. Conmtinue Symbicort, Albuterol. 5. DM 2 - maintain on Novolog sliding scale. 6. PAD s/p fem-pop bypass 7. HTN - normally on Subcutril/Valsartan (currently held due to borderline BP. Continued on Coreg. 8. HLD - Contnue Crestor 9. PUD s/p Partial Gastrectomy - will give Pantoprazole. 10. CAD s/p CABG - normally on Plavix, BB, DANIELLE, Statin. 11. BPH - Continue Flomax 12. Depression - stable. Continue Lexapro. DVT Px - Heparin SQ
[2018-08-04] MEDS: ROSUVASTATIN CA 20 MG TABLET (FP) PO SCH (21:44)
[2018-08-04] MEDS: ESCITALOPRAM OXALATE 20 MG TABLET (FP) PO SCH (21:44)
[2018-08-05] MEDS: INSULIN SLIDING SCALE (NOVOLOG) 1 VIAL SQ SCH ×4 (05:59→22:15)
[2018-08-05] MEDS: LACTATED RINGERS SOLUTION 1,000 ML/1,000 ML INFUS.BAG IV SCH ×2 (06:00→12:30)
[2018-08-05 07:36] LABS: BASO % 0.8 % (0-2.0); EOS % 1.8 % (0-4.5); HEMATOCRIT 32.6 % (35.4-49); LYMPH % 24.3 % (8-40); MCH 27.6 pg (25.7-33.7); MCHC 33.9 g/dl (32.0-35.9); MEAN CELL VOLUME 81.3 fl (80-96); MEAN PLT VOLUME 7.7 fl (7.5-11.1); MONO % 6.7 % (3.8-10.2); NEUT % 66.4 % (42.8-82.8); PLATELET COUNT 108 K/MM3 (134-434); RBC 4.01 M/mm3 (4.00-5.60); RDW 17.4 % (11.9-15.9); WHITE BLOOD COUNT 4.6 K/mm3 (4.0-10.0)
[2018-08-05 07:49] LABS: ANION GAP 8 MMOL/L (8-16); BLOOD UREA NITROGEN 31 mg/dL (7-18); CALCIUM 8.7 mg/dL (8.5-10.1); CHLORIDE 112 mmol/L (98-107); CO2 21 mmol/L (21-32); CREATININE 1.3 mg/dL (0.55-1.3); GLUCOSE,RANDOM 154 mg/dL (74-106); MAGNESIUM 2.1 mg/dL (1.8-2.4); PHOSPHOROUS 3.6 mg/dL (2.5-4.9); POTASSIUM 4.5 mmol/L (3.5-5.1); SODIUM 141 mmol/L (136-145)
--- NOTE | 2018-08-05 10:35 | CONS ---
DATE OF CONSULTATION: 08/04/2018 PULMONARY CONSULTATION REFERRING PHYSICIAN: Brian Munroe MD HISTORY OF PRESENT ILLNESS: The patient is a 78-year-old white male well known to me from previous office visits as well as hospitalization. He has a past medical history of severe congestive heart failure, left ventricular ejection fraction of 25 to 30%, status post AICD, ASHD status post CABG, COPD maintained on inhaled bronchodilators, PAD status post femoral bypass, lower extremity PCI, insulin-dependent diabetes mellitus, achalasia status post Heller myomectomy, residual dysphagia, partial gastrectomy, Billroth II, hypertension, hyperlipidemia. He had a recent cystoscopy on July 27. He was admitted to [facility] on August 03, 2018 secondary to hypotension, dehydration and failure to thrive. Apparently, for the past few months, he has been having progressive lightheadedness, predominantly when he walks or sits up, dyspnea on exertion, weakness and pallor. Currently, he was found at the clinic to be hypertensive. The patient was admitted and started on IV fluids. He has a history of tobacco use, two packs per day, for many years. He quit three years ago. He has no history of occupational exposure to chemical fumes. He does complain of shortness of breath with exertion. He denies any hemoptysis. He does have a cough productive of clear sputum. He denies any chest pain, palpitations, nausea, vomiting or diaphoresis. He underwent an echocardiogram earlier today which revealed moderate global hypokinesis, left ventricle, and left systolic function moderately reduced. PAST MEDICAL HISTORY: Again, this includes congestive heart failure status post AICD, ASHD status post CABG two years ago, PAD status post femoral bypass, left lower extremity PCI, diabetes, achalasia status post Heller myomectomy with residual dysphagia, COPD on inhaled bronchodilators, hypertension, hyperlipidemia, partial gastrectomy, Billroth II, history of recent cysto. CURRENT MEDICATIONS: Symbicort 160/4.5, ceftriaxone, heparin, Lexapro, albuterol, Coreg, Crestor, lactated Ringers, melatonin and Plavix. REVIEW OF SYSTEMS: Positive for shortness of breath, weakness, lightheadedness. No chest pain, palpitations, nausea, vomiting, diaphoresis or lower extremity edema. PHYSICAL EXAMINATION: General: The patient is a well-developed, well-nourished male, awake and alert , in no acute distress. Vital Signs: He is afebrile. Blood pressure is 120/68; standing blood pressure was 91/46, respiratory rate 18. HEENT: Head is normocephalic, atraumatic. Neck: Supple. Heart: Regular. S1, S2. Chest: A few bibasilar crackles. Abdomen: Soft. Bowel sounds are positive. Extremities: No cyanosis or edema. LABORATORY: WBC is 5.3, hemoglobin 10.9, hematocrit 31.1, platelet count of 124 ,000. BUN 35, creatinine 1.3, troponin 0.02, UA positive for 2+ leukocyte esterase. A chest x-ray shows no infiltrates or effusions. IMPRESSION: 1. Hypotension secondary to mild dehydration. 2. Chronic obstructive pulmonary disease on inhaled bronchodilators. 3. Congestive heart failure with decreased left ventricular ejection fraction. 4. Arteriosclerotic heart disease status post coronary artery bypass grafting. 5. Peripheral vascular disease. 6. Insulin-dependent diabetes mellitus. 7. Diabetes. 8. History of partial gastrectomy. 9. UTI PLAN: 1. Gentle hydration. 2. Inhaled bronchodilators. 3. Supplemental O2. 4. Cardiology evaluation. 5. Hold diuretics. 6. Plan CT scan of the chest. 7. Antione DELVALLE M.D. ASIA/[id number] MTDD
--- NOTE | 2018-08-05 10:45 | PN ---
Progress Note (short form) - Note Progress Note: PULMONARY Denies shortness of breath. Less coughing. No fevers recorded. CT chest done without infiltrates, showing some retained food in esophagus. Vital Signs Period Temp Pulse Resp BP Sys/Garcia Pulse Ox Last 24 Hr 97.0 F-97.9 F 57-80 18-20 91-157/46-69 98-99 Gen: NAD at rest Heart: RRR Lung: decreased breath sounds at the bases Abd: soft, nontender Ext: no edema CBC, BMP 08/05/18 06:35 08/05/18 06:35 Active Medications Albuterol Sulfate (Ventolin Hfa Inhaler -) 2 puff IH Q8H PRN PRN Reason: SHORTNESS OF BREATH Budesonide/Formoterol Fumarate (Symbicort 160/4.5mcg -) 2 puff IH BID [facility] Last Admin: 08/04/18 21:48 Dose: 2 puff Carvedilol (Coreg -) 3.125 mg PO BID [facility] Last Admin: 08/04/18 21:45 Dose: 3.125 mg Clopidogrel Bisulfate (Plavix -) 75 mg PO DAILY [facility] Last Admin: 08/04/18 09:48 Dose: 75 mg Escitalopram Oxalate (Lexapro -) 20 mg PO HS [facility] Last Admin: 08/04/18 21:44 Dose: 20 mg Heparin Sodium (Porcine) (Heparin -) 5,000 unit SQ TID [facility] Last Admin: 08/04/18 14:45 Dose: 5,000 unit Ceftriaxone Sodium 1 gm/ (Dextrose) 50 mls @ 100 mls/hr IVPB DAILY [facility]; Protocol Last Admin: 08/04/18 12:38 Dose: 100 mls/hr Lactated Ringer's (Lactated Ringers Solution) 1,000 ml in 1,000 mls @ 42 mls/ hr IV ASDIR [facility] Last Admin: 08/05/18 06:00 Dose: 42 mls/hr Insulin Aspart (Novolog Vial Sliding Scale -) 1 vial SQ ACHS [facility]; Protocol Last Admin: 08/05/18 05:59 Dose: Not Given Melatonin (Melatonin) 10 mg PO HS PRN PRN Reason: INSOMNIA Last Admin: 08/03/18 22:26 Dose: 10 mg Rosuvastatin Calcium (Crestor -) 20 mg PO HS KADEEM Last Admin: 08/04/18 21:44 Dose: 20 mg A/P UTI COPD LV Systolic Dysfunction CAD s/p CABG DM PAD Achalasia h/o Partial Gastrectomy - continue antibiotics - f/u cultures - inhaled bronchodilators - O2 to keep SpO2 >90% - aspiration precautions - DVT prophylaxis
[2018-08-05] MEDS ORDERED: DEXTROSE 5%-WATER - 50 ML IVPB ONE (11:26)
[2018-08-05] MEDS ORDERED: cefTRIAXone SODIUM 1 GM VIAL ONE (11:26)
[2018-08-05] MEDS: CEFTRIAXONE 1 GM in DEXTROSE 5%-WATER - 50 ML IVPB SCH (11:29)
[2018-08-05] MEDS: BUDESONIDE/FORMETEROL FUMARATE 160/4.5 mcg INHALER IH SCH ×2 (11:34→22:17)
--- NOTE | 2018-08-05 11:46 | PN ---
Physical Exam: SUBJECTIVE: Patient seen and examined at bedside. States he has dehydration, c/ o generalized weakness and dizziness, otherwise no acute complaints or discomfort. Denies dysuria. Denies dyspnea. OBJECTIVE: Vital Signs Period Temp Pulse Resp BP Sys/Garcia Pulse Ox Last 24 Hr 97.0 F-97.9 F 57-80 18-20 91-157/46-69 99 GENERAL: A&Ox3, NAD HEENT: NC/AT, PERRLA, EOMI, MMM NECK: Trachea midline, full range of motion, supple. LUNGS: CTA b/l HEART: RRR no m/r/g ABDOMEN: +bs, soft, NT, ND EXTREMITIES: 2+ pulses, warm, well-perfused, no edema. NEUROLOGICAL: measurement psychologist, motor, sensory systems w/o focal deficit PSYCH: Normal mood, normal affect. SKIN: Warm, dry, normal turgor, no rashes or lesions noted Laboratory Results - last 24 hr 08/04/18 08/04/18 08/04/18 12:13 17:12 21:01 WBC RBC Hgb Hct MCV MCH MCHC RDW Plt Count MPV Absolute Neuts (auto) Neutrophils % Lymphocytes % Monocytes % Eosinophils % Basophils % Nucleated RBC % Sodium Potassium Chloride Carbon Dioxide Anion Gap BUN Creatinine Creat Clearance w eGFR POC Glucometer 168 293 209 Random Glucose Calcium Phosphorus Magnesium 08/05/18 08/05/18 08/05/18 05:58 06:35 06:35 WBC 4.6 RBC 4.01 Hgb 11.0 L Hct 32.6 L MCV 81.3 MCH 27.6 MCHC 33.9 RDW 17.4 H Plt Count 108 L MPV 7.7 Absolute Neuts (auto) 3.1 Neutrophils % 66.4 Lymphocytes % 24.3 D Monocytes % 6.7 Eosinophils % 1.8 Basophils % 0.8 Nucleated RBC % 0 Sodium 141 Potassium 4.5 Chloride 112 H Carbon Dioxide 21 Anion Gap 8 BUN 31 H Creatinine 1.3 Creat Clearance w eGFR 53.67 POC Glucometer 150 Random Glucose 154 H Calcium 8.7 Phosphorus 3.6 Magnesium 2.1 Active Medications Generic Name Dose Route Start Last Admin Trade Name Freq PRN Reason Stop Dose Admin Albuterol Sulfate 2 puff 08/03/18 21:42 Ventolin Hfa Inhaler - IH Q8H PRN SHORTNESS OF BREATH Albuterol/Ipratropium 1 amp 03/28/19 14:00 Duoneb - NEB RTID KADEEM Budesonide/Formoterol Fumarate 2 puff 08/03/18 22:00 08/05/18 11:34 Symbicort 160/4.5mcg - IH 2 puff BID KADEEM Administration Carvedilol 3.125 mg 08/03/18 22:00 08/04/18 21:45 Coreg - PO 3.125 mg BID KADEEM Administration Clopidogrel Bisulfate 75 mg 08/04/18 10:00 08/04/18 09:48 Plavix - PO 75 mg DAILY KADEEM Administration Escitalopram Oxalate 20 mg 08/03/18 22:00 08/04/18 21:44 Lexapro - PO 20 mg HS KADEEM Administration Heparin Sodium (Porcine) 5,000 unit 08/04/18 06:00 08/04/18 14:45 Heparin - SQ 5,000 unit TID KADEEM Administration Lactated Ringer's 1,000 ml in 1,000 mls @ 42 mls/hr 08/04/18 12:30 08/05/18 06:00 Lactated Ringers Solution IV 42 mls/hr ASDIR KADEEM Administration Insulin Aspart 1 vial 08/03/18 22:00 08/05/18 05:59 Novolog Vial Sliding Scale - SQ Not Given ACHS KADEEM Protocol Melatonin 10 mg 08/03/18 19:02 08/03/18 22:26 Melatonin PO 10 mg HS PRN Administration INSOMNIA Rosuvastatin Calcium 20 mg 08/03/18 22:00 08/04/18 21:44 Crestor - PO 20 mg HS KADEEM Administration ASSESSMENT/PLAN: 78 y/o M w/ PMHx urethral stricture c/b fungemia s/p cystoscopy 07/24/18 w/ Dr. Geetha Limon, systolic CHF (EF 25% on most recent echo), achalasia, CAD s/p stenting, HTN, DM sent to the ED for evaluation of generalized weakness and dizziness. #UTI -UCx negative -stopping ABx #Hypotension, Dizziness -supine vitals stable, significant orthostasis noted -giving gentle hydration and will repeat orthostatics -echo without quantitative data showing HF signs #chronic dysphagia w/ achalasia -speech/swallow following -MBS showing esophageal narrowing with stasis of barium pill -empiric diet and GI consult per S/S recommendations -anticipate EGD today #sCHF w/ AICD -last documented echo w/ EF 29% -repeat echo does not quantify EF -holding Lasix given orthostasis #COPD -stable -resume home inhalers -pulm following #DM -BGM ACHS -ISS ACHS #HTN -cont coreg, holding Entresto given hypotension/orthostasis #FEN -LR@ 42 -monitor lytes, replete PRN -dysphagia chopped diet per S/S parameters #PPx -DVT: SCDs -GI: not indicated #Dispo -observe on med surg Visit type - Emergency Visit Emergency Visit: No - New Patient This patient is new to me today: No - Critical Care Critical Care patient: No
[2018-08-05] MEDS: CLOPIDOGREL BISULFATE 75 MG TABLET (FP) PO SCH (12:11)
[2018-08-05] MEDS: CARVEDILOL 3.125 MG TABLET (FP) PO SCH ×3 (12:11→22:07)
--- NOTE | 2018-08-05 12:28 | PN ---
Progress Note, FIRE MANAGEMENT OFFICER - Note Progress Note: Selected Entries 08/04/18 08/04/18 08/04/18 02:00 07:00 11:43 Breakfast 100% Lunch Supper Temperature 97.5 F L 97.5 F L 08/04/18 08/04/18 08/04/18 15:34 18:00 18:10 Breakfast Lunch 75% Supper 75% Temperature 97.0 F L 08/04/18 08/05/18 08/05/18 21:50 02:00 06:00 Breakfast Lunch Supper Temperature 97.2 F L 97.9 F 97.9 F 08/05/18 08/05/18 09:27 11:00 Breakfast NPO Lunch Supper Temperature 97.5 F L Laboratory Tests 08/05/18 06:35 WBC 4.6 MBS reviewed with staff/GI, for possible EGD. Deferred, on Plavix.
[2018-08-05] MEDS ORDERED: INSULIN (NOVOLOG) ASPART 100 UNITS/ML 10ML VIAL ONE (12:36)
--- NOTE | 2018-08-05 12:58 | CON.CARD ---
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 Patient reports chronic mild orthostatic dizziness, but denies cardiovascular symptoms of chest pain, dyspnea , true syncope, palpitations, orthopnea, PND or LE edema. - History Source History Provided By: Patient Limitations to Obtaining History: No Limitations - Past Medical History Cardio/Vascular: Yes: CAD, CHF, ND, Other (s/p stent) Pulmonary: Yes: Asthma, COPD, Other (CA lung) Gastrointestinal: Yes: Constipation, Other Renal/: Yes: BPH, Other Musculoskeletal: Yes: Chronic low back pain, Osteoarthritis - Past Surgical History Past Surgical History: Yes: Cholecystectomy, Permanent Pacemaker - Alcohol/Substance Use Hx Alcohol Use: Yes History of Substance Use: reports: None - Smoking History Smoking history: Former smoker Have you smoked in the past 12 months: Yes Aproximately how many cigarettes per day: 5 If you are a former smoker, when did you quit?: FEW MONTHS - Social History Usual Living Arrangement: With Spouse ADL: Independent Occupation: retired: worked for [employer] History of Recent Travel: No Home Medications - Allergies Allergies/Adverse Reactions: Allergies Allergy/AdvReac Type Severity Reaction Status Date / Time pregabalin [From Lyrica] Allergy Severe Verified 08/03/18 12:35 - Home Medications Home Medications: Ambulatory Orders Bimatoprost [Lumigan] 1 drop OU DAILY 12/24/16 Budesonide/Formeterol Fumarate [SYMBICORT 160/4.5mcg -] 2 inh PO BID 12/24/16 Clopidogrel Bisulfate [Plavix -] 75 mg PO DAILY 12/24/16 Rosuvastatin Calcium [Crestor] 20 mg PO HS 12/24/16 Carvedilol [Coreg -] 3.125 mg PO BID #60 tablet 07/25/17 Tamsulosin HCl [Flomax -] 0.4 mg PO 0830 #30 cap.er.24h 07/25/17 Insulin Glargine,Hum.rec.anlog [Lantus] 54 unit SQ HS 08/08/17 Escitalopram Oxalate [Lexapro -] 20 mg PO HS 04/19/18 Furosemide [Lasix] 20 mg PO AM 04/19/18 Sacubitril/Valsartan [Entresto 24 mg-26 mg Tablet] 1 tab PO BID 04/19/18 Albuterol Sulfate [Proair Hfa] 2 puff IH TID PRN 08/03/18 Family Disease History - Family Disease History Family Disease History: Other: Father, Mother, Brother, Sister, Son, Daughter Review of Systems - Review of Systems Gastrointestinal: reports: Dysphagia Neurological: reports: Dizziness Vital Signs: Vital Signs Temperature 97.5 F L 08/05/18 11:00 Pulse Rate 60 08/05/18 12:20 Respiratory Rate 20 08/05/18 12:20 Blood Pressure 154/57 L 08/05/18 12:20 O2 Sat by Pulse Oximetry (%) 99 08/05/18 02:25 Constitutional: Yes: No Distress, Calm Neck: Yes: Supple Respiratory: Yes: Regular, CTA Bilaterally Gastrointestinal: Yes: Normal Bowel Sounds, Soft Cardiovascular: Yes: Regular Rate and Rhythm JVD: No Carotid Bruit: No Heart Sounds: Yes: S1, S2 Murmur: Yes: Systolic Murmur, Grade 1 Edema: No - Other Data Labs, Other Data: CBC, BMP 08/05/18 06:35 08/05/18 06:35 INR, PTT INR 0.99 (0.83-1.09) 08/04/18 06:00 SR 1st deg AVB IVCD Prior Cardiac Procedures: CABG Ejection Fraction %: LVEF < 40 % Imaging - Results Chest X-ray: Report Reviewed (NAD) X-ray: Report Reviewed (Suspect distal esophageal stricture with barium hang-up) Cat Scan: Report Reviewed (Moderate hiatal hernia) Problem List - Problems (1) Ischemic cardiomyopathy Code(s): I25.5 - ISCHEMIC CARDIOMYOPATHY (2) ICD (implantable cardioverter-defibrillator) in place Code(s): Z95.810 - PRESENCE OF AUTOMATIC (IMPLANTABLE) CARDIAC DEFIBRILLATOR (3) Dysphagia Code(s): R13.10 - DYSPHAGIA, UNSPECIFIED Qualifiers: Dysphagia type: esophageal phase Qualified Code(s): R13.10 - Dysphagia, unspecified (4) Acute on chronic renal insufficiency Code(s): N28.9 - DISORDER OF KIDNEY AND URETER, UNSPECIFIED; N18.9 - CHRONIC KIDNEY DISEASE, UNSPECIFIED (5) CAD (coronary artery disease) Code(s): I25.10 - ATHSCL HEART DISEASE OF [place] CORONARY ARTERY W/O ANG PCTRS Qualifiers: Coronary Disease-Associated Artery/Lesion type: [place] artery [place] vs. transplanted heart: [place] heart Associated angina: without angina Qualified Code(s): I25.10 - Atherosclerotic heart disease of [place] coronary artery without angina pectoris (6) COPD (chronic obstructive pulmonary disease) Code(s): J44.9 - CHRONIC OBSTRUCTIVE PULMONARY DISEASE, UNSPECIFIED Qualifiers: COPD type: unspecified COPD Qualified Code(s): J44.9 - Chronic obstructive pulmonary disease, unspecified (7) History of percutaneous coronary intervention Code(s): Z98.890 - OTHER SPECIFIED POSTPROCEDURAL STATES (8) Hx of CABG Code(s): Z95.1 - PRESENCE OF AORTOCORONARY BYPASS GRAFT (9) Hyperlipidemia Code(s): E78.5 - HYPERLIPIDEMIA, UNSPECIFIED Qualifiers: Hyperlipidemia type: pure hypercholesterolemia Qualified Code(s): E78.00 - Pure hypercholesterolemia, unspecified; E78.0 - Pure hypercholesterolemia (10) PVD (peripheral vascular disease) Code(s): I73.9 - PERIPHERAL VASCULAR DISEASE, UNSPECIFIED (11) Achalasia Code(s): K22.0 - ACHALASIA OF CARDIA Assessment/Plan 09/24/2017 R&LHc: Dilated ischemia cardiomyopathy, occluded SVG->OM1, patent LOPEZ->LAD, RA->OM2 08/04/2018 Echo: Normal LV size with moderate decreased LVEF mild TR, mild VELMA, mild-mod MR 1. Pre-procedural CV evaluation 2. Achalasia, hiatal hernia 3. CAD s/p PCI/stent, CABG, angina pectoris 4. Severe LV systolic dysfunction with class 2 NYHA classification failure 5. s/p Medtronic ICD for primary prevention 6. HTN/HCVD 7. Acute on CKD improved with hydration 8. Type 2 DM 9. Hyperlipidemia 10. COPD 11. 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 F/u esophagram, possible EGD with pneumatic dilatation and LES Botox injections, aspiration precautions, clear liquid diet, patient should be eating sitting upright 2. Given recent cath and absence of symptoms of acute coronary syndrome, decompensated CHF or malignant arrhythmia, may proceed with EGD from CV- standpoint without further testing. Plavix will be held pre-procedure, there is a very small chance of very late-stent thrombosis while off all antiplatelet agents and risk may be mitigated with clifford-procedural ASA 81 qd, but per Dr. Saldana, he cannot proceed with procedure while on ASA 81 qd either, he will be on sc heparin in meantime for DVT prophylaxis. 3. Continue Crestor 20 qd, carvedilol 3.125 bid, resume Entresto 24/ bid, Lasix 20 qd as hemodynamics tolerate now that renal fxn stabilized 4. Off empiric abx course per C&S, BD, O2 as needed, DVT prophylaxis 5. Thank you for consultative opportunity
--- NOTE | 2018-08-05 13:13 | CON.GI ---
Consult Consult Specialty:: GI Referred by:: Hospitalist Service Reason for Consultation:: Dysphagia, dehydration - History of Present Illness Chief Complaint: Vomiting and dehydration History of Present Illness: 78M admitted for evaluation of dehydration, weakness. Asked to evaluate for dysphagia. History was obtained from Mr. Gates and I called his Felisha as well. I had seen him in the office 06/23/18 after an admission for shortness of breat. he had also complained of choking promrtly after initiating a meal. He underwent modified barium swallow along with S/S evaluation. It revealed recurrent silent aspiration on thin, nectar and honey thick liquids with head in neutral. This was eliminated with small sips and head in flexion while swallowing. He was advised to eat small meals in a chair while sitting fully upright and that he should remain upright for an hour. He was not following those recommendations and continues to large portions quicky per his . He also complained of episodes of coughing and bringing up phlegm. I advised ENT evaluation as well as Nurology evaluation at that time and CT scan of the chest to exclude a contributory lung mlaignancy given his significant smoking history. 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 Jayy Morales and that it was "OK". He also underwent recent cystoscopy fopr evaluation of a ? foreign body in the bladder. Felisha explains that there was no foreign body and that a fungal infection was found. Currently, a repeat Modified barium swallow was performed and speech and swallow evaluation. This revealed an improved oropharyngeal phase without aspiration. There was hang-up of contrast in the distal esophagus along with tertiary contractions, intrathoracic extension of the fundus of the stomach and narrowing at the GE Junction. There was hangup of a 1.3cm barium pill in this area. A stricture could not be excluded Mr. Gates explains that at times, a while after eating, he will feel the urge to retch up retained food. Per his , he still eats rapidly and large portions. In speaking with Felisha further , Mr. Gates underwent partial gastrectomy 40 years ago secondary to peptic ulcer disease. She recalls that he was told of a hiatal hernia quite a while ago. Many years after his partial gastrectomy, she confirmed that he had had a surgery for achalasia at [facility]. At his last office visit with me I gave them the contact information [facility] Renetta Graves [facility]. They had not made an appointment as of yet to see either of them. His last upper endoscopy was in 2016, performed by Dr. Avinash Lyons. It revealed a 2cm hiatal hernia, billroth II anastamosis, food residue in the distal esophagus and body of the stomach. This raises suspicion for gastroparesis. There was no mention of esophageal stricture or resistance of the endoscope upon passage through the GE [place]unction that would be suggestive of achalasia. he also underwent colonoscopy at that time that led to the removal of tubular adenomas. He currently denies abdominal pain, change in bowel habits, rectal bleeding, melena. - History Source History Provided By: Patient, Family Member, Medical Record - Past Medical History Cardio/Vascular: Yes: CAD (cardiac stents x 4), CHF, HTN, Hyperlipdemia, [place], Other (PVD with revascularization of right leg 2018) Pulmonary: Yes: Asthma, COPD, Other (CA lung) Gastrointestinal: Yes: Constipation, Other (Achalasia, question of gastroparesis , colon polyps (tubular adenomas in 2016), Hiatal hernia) Renal/: Yes: BPH, Other Musculoskeletal: Yes: Chronic low back pain, Osteoarthritis Endocrine: Yes: Diabetes Mellitus - Past Surgical History Past Surgical History: Yes: CABG (x 3 vessel), Cholecystectomy, Hernia Repair, Permanent Pacemaker Additional Surgical History: B/L LE vascular stents, inguinal hernia repair, question of myotomy secondary to achalasia, Partial gastrectomy - Alcohol/Substance Use Hx Alcohol Use: Yes (former heavy etoh) History of Substance Use: reports: None - Smoking History Smoking history: Former smoker Have you smoked in the past 12 months: Yes Aproximately how many cigarettes per day: 5 If you are a former smoker, when did you quit?: FEW MONTHS - Social History Usual Living Arrangement: With Spouse ADL: Independent Occupation: retired: worked for [email or web address] Place of : [facility] History of Recent Travel: No Home Medications - Allergies Allergies/Adverse Reactions: Allergies Allergy/AdvReac Type Severity Reaction Status Date / Time pregabalin [From Lyrica] Allergy Severe Verified 08/03/18 12:35 - Home Medications Home Medications: Ambulatory Orders Bimatoprost [Lumigan] 1 drop OU DAILY 12/24/16 Budesonide/Formeterol Fumarate [SYMBICORT 160/4.5mcg -] 2 inh PO BID 12/24/16 Clopidogrel Bisulfate [Plavix -] 75 mg PO DAILY 12/24/16 Rosuvastatin Calcium [Crestor] 20 mg PO HS 12/24/16 Carvedilol [Coreg -] 3.125 mg PO BID #60 tablet 07/25/17 Tamsulosin HCl [Flomax -] 0.4 mg PO 0830 #30 cap.er.24h 07/25/17 Insulin Glargine,Hum.rec.anlog [Lantus] 54 unit SQ HS 08/08/17 Escitalopram Oxalate [Lexapro -] 20 mg PO HS 04/19/18 Furosemide [Lasix] 20 mg PO AM 04/19/18 Sacubitril/Valsartan [Entresto 24 mg-26 mg Tablet] 1 tab PO BID 04/19/18 Albuterol Sulfate [Proair Hfa] 2 puff IH TID PRN 08/03/18 Family Disease History - Family Disease History Family Disease History: Other: Father (: 87: CAD), Mother (: 60: unclear intraabdominal CA), Brother (6: 1 : leukemia, 1 : CVA, 1 : shot), Sister (4, healthy), Son (1, healthy), Daughter (1, healthy) Other Family History: Nieces x 2 with colon cancer Review of Systems - Review of Systems Constitutional: reports: Weakness. denies: Chills Cardiovascular: denies: Chest Pain Respiratory: reports: Cough Gastrointestinal: reports: Dysphagia, Vomiting. denies: Abdominal Pain, Diarrhea, Melena, Rectal Bleeding Physical Exam-GI Vital Signs: Vital Signs Temperature 97.5 F L 08/05/18 11:00 Pulse Rate 60 08/05/18 12:20 Respiratory Rate 20 08/05/18 12:20 Blood Pressure 154/57 L 08/05/18 12:20 O2 Sat by Pulse Oximetry (%) 99 08/05/18 02:25 Constitutional: Yes: Calm Eyes: No: Sclera Icterus Cardiovascular: Yes: Regular Rate and Rhythm Respiratory: Yes: CTA Bilaterally Gastrointestinal Inspection: Yes: Scars (Long vertical midline abdominal surgical scar). No: Distention ...Auscultate: Yes: Normoactive Bowel Sounds ...Palpate: Yes: Soft. No: Hepatomegaly, Splenomegaly, Tenderness ...Percussion: No: Tympanitic Edema: No (No LE edema) Neurological: Yes: Alert Labs: CBC, BMP 08/05/18 06:35 08/05/18 06:35 INR, PTT INR 0.99 (0.83-1.09) 08/04/18 06:00 Hepatic Panel Total Bilirubin 0.3 mg/dL (0.2-1) 08/03/18 15:40 AST 39 U/L (15-37) H 08/03/18 15:40 ALT 58 U/L (13-61) 08/03/18 15:40 Alkaline Phosphatase 87 U/L (45-117) 08/03/18 15:40 Albumin 3.2 g/dl (3.4-5.0) L 08/03/18 15:40 Imaging - Results Other: Report Reviewed (MBS/S and swallow eval) Problem List - Problems (1) Dysphagia Assessment/Plan: Question if Mr. Gates's complaints are a result of a distal peptic stricture associated with hiatal hernia, progression of the hiatal hernia itself (described as only 2cm hernia on last EGD) or progression of previously described achalasia with overall diminished esophageal peristalsis and high pressure LES. Ordered formal esophagram Pending results discussed possible upper endopscopy with possible dilation. Explained to Mr. Gates would need to be held prior to the procedure given the potential for increased bleeding risk. If form further testing it appears as though this is progression of his preexisting achalasia, then further evaluation should be undertaken at a motility center including confirmatory esophageal manometry. He is not the optimal surgical candidate given his cardiac history so pneumatic dilation / LES Botox injections would likely be options in the forefront. Clear liquids for now Aspiration precautions. Patient should be eating sitting upright Discussed case with Dr. Strickland. Will review outpatient records. Plavix will need to be held 4-5 days prior to upper endoscopy. Possibly for friday 09/08. Code(s): R13.10 - DYSPHAGIA, UNSPECIFIED Qualifiers: Dysphagia type: esophageal phase Qualified Code(s): R13.10 - Dysphagia, unspecified
--- NOTE | 2018-08-05 14:09 | PN ---
Teaching Attending Note Name of Resident: Dhruv Najera ATTENDING PHYSICIAN STATEMENT I saw and evaluated the patient. I reviewed the resident's note and discussed the case with the resident. I agree with the resident's findings and plan as documented. SUBJECTIVE: Still reports lightheadedness on standing. No dysuria/hematuria/ fever/chills. OBJECTIVE: Afebrile, Hemodynamically Stable, BP improved Last Vital Signs Temp Pulse Resp BP Pulse Ox 97.5 F L 60 20 154/57 L 99 08/05/18 11:00 08/05/18 12:20 08/05/18 12:20 08/05/18 12:20 08/05/18 02:25 HEENT - Normocephalic, [place] Heart - S1, S2, RRR Lungs - clear to auscultation Abdomen - Soft, non-tender. Bowel Sounds normal. Extremities - no edema, no calf tenderness. Neuro - AAO x 3. EOMI, No nystagmus. Tone/Power normal all 4 extremities. Laboratory Results - last 24 hr 08/04/18 08/04/18 08/05/18 17:12 21:01 05:58 WBC RBC Hgb Hct MCV MCH MCHC RDW Plt Count MPV Absolute Neuts (auto) Neutrophils % Lymphocytes % Monocytes % Eosinophils % Basophils % Nucleated RBC % Sodium Potassium Chloride Carbon Dioxide Anion Gap BUN Creatinine Creat Clearance w eGFR POC Glucometer 293 209 150 Random Glucose Calcium Phosphorus Magnesium 08/05/18 08/05/18 08/05/18 06:35 06:35 12:32 WBC 4.6 RBC 4.01 Hgb 11.0 L Hct 32.6 L MCV 81.3 MCH 27.6 MCHC 33.9 RDW 17.4 H Plt Count 108 L MPV 7.7 Absolute Neuts (auto) 3.1 Neutrophils % 66.4 Lymphocytes % 24.3 D Monocytes % 6.7 Eosinophils % 1.8 Basophils % 0.8 Nucleated RBC % 0 Sodium 141 Potassium 4.5 Chloride 112 H Carbon Dioxide 21 Anion Gap 8 BUN 31 H Creatinine 1.3 Creat Clearance w eGFR 53.67 POC Glucometer 176 Random Glucose 154 H Calcium 8.7 Phosphorus 3.6 Magnesium 2.1 Current Medications Generic Name Dose Route Start Last Admin Trade Name Freq PRN Reason Stop Dose Admin Albuterol Sulfate 2 puff 08/03/18 21:42 Ventolin Hfa Inhaler - IH Q8H PRN SHORTNESS OF BREATH Albuterol/Ipratropium 1 amp 08/05/18 14:00 Duoneb - NEB RTID KADEEM Budesonide/Formoterol Fumarate 2 puff 08/03/18 22:00 08/05/18 11:34 Symbicort 160/4.5mcg - IH 2 puff BID KADEEM Administration Carvedilol 3.125 mg 08/03/18 22:00 08/05/18 12:22 Coreg - PO 3.125 mg BID KADEEM Administration Clopidogrel Bisulfate 75 mg 08/04/18 10:00 08/05/18 12:11 Plavix - PO Not Given DAILY KADEEM Escitalopram Oxalate 20 mg 08/03/18 22:00 08/04/18 21:44 Lexapro - PO 20 mg HS KADEEM Administration Heparin Sodium (Porcine) 5,000 unit 08/04/18 06:00 08/04/18 14:45 Heparin - SQ 5,000 unit TID KADEEM Administration Lactated Ringer's 1,000 ml in 1,000 mls @ 42 mls/hr 08/04/18 12:30 08/05/18 06:00 Lactated Ringers Solution IV 42 mls/hr ASDIR KADEEM Administration Insulin Aspart 1 vial 08/03/18 22:00 08/05/18 12:37 Novolog Vial Sliding Scale - SQ 2 unit ACHS KADEEM Administration Protocol Melatonin 10 mg 08/03/18 19:02 08/03/18 22:26 Melatonin PO 10 mg HS PRN Administration INSOMNIA Rosuvastatin Calcium 20 mg 08/03/18 22:00 08/04/18 21:44 Crestor - PO 20 mg HS KADEEM Administration ASSESSMENT AND PLAN: 78 year old male with history of Chronic Systolic CHF (EF 25-30%), s/p AICD, CAD s/p CABG, PAD s/p Fem-Pop bypass, DM 2, BPH, Hx Achalasia s/p Heller's Myotomy with residual Dysphagia, Depression, PUD s/p partial gastrectomy (Broth Type II), HTN, HLD, COPD, ex-smoker, presented with increasing weakness, dizziness, worsening dysphagia with regurgitation, recent cystoscopy and treatment for UTI with Fluconazole and BActrim, fpound to have hypotension. 1. Dizziness/Lightheadedness secondary to Orthostatic Hypotension secondary to dehydration and anti-hypertensive polypharmacy Urine Cx negative - empiric Ceftriaxone discontinued. Continue Gentle IV hydration pending repeat Orthostatic vitals. Will consider resuming Lasix at lower dose perhaps if BP normalizes and once he is asymptomatic. 2. Chronic Dysphagia secondary to Achalasia MBS shows possible stricture. GI consulted for eval for possible EGD 3. Chronic Systolic CHF with EF 25% s/p AICD repeat Echo - moderately reduced EF with global hypokinesis and moderate MR No evidence of acute decompensation. Lasix held currently due to symptomatic orthostatic hypotension. Cardiology consulted. 4. COPD - no evidence of acute decompensation. Continue Symbicort, Albuterol. 5. DM 2 - maintain on Novolog sliding scale. 6. PAD s/p fem-pop bypass - continue Plavix, Statin 7. HTN - normally on Subcutril/Valsartan (currently held due to borderline BP. Continued on Coreg. 8. HLD - Contnue Crestor 9. PUD s/p Partial Gastrectomy - will give Pantoprazole. 10. CAD s/p CABG - normally on Plavix, BB, DANIELLE, Statin. 11. BPH - Continue Flomax 12. Depression - stable. Continue Lexapro. DVT Px - Heparin SQ
[2018-08-05] MEDS: ALBUTEROL SO4 2.5/IPRATROPIUM 0.5 INH SOL 3 ML VIAL.NEB. NEB SCH ×2 (15:44→20:30)
[2018-08-05] MEDS: HEPARIN NA (PORCINE) 5,000 UNITS/ML 1ML VIAL SQ SCH (22:07)
[2018-08-05] MEDS: ROSUVASTATIN CA 20 MG TABLET (FP) PO SCH (22:07)
[2018-08-05] MEDS: MELATONIN 5 MG TABLETS PO PRN (22:07)
[2018-08-05] MEDS: ESCITALOPRAM OXALATE 20 MG TABLET (FP) PO SCH (22:07)
[2018-08-06] MEDS: INSULIN SLIDING SCALE (NOVOLOG) 1 VIAL SQ SCH ×4 (06:16→22:35)
[2018-08-06] MEDS: HEPARIN NA (PORCINE) 5,000 UNITS/ML 1ML VIAL SQ SCH ×3 (06:16→22:28)
[2018-08-06 07:46] LABS: BASO % 0.6 % (0-2.0); EOS % 1.6 % (0-4.5); HEMATOCRIT 32.8 % (35.4-49); HEMOGLOBIN 10.9 GM/dL (11.7-16.9); LYMPH % 20.3 % (8-40); MCH 27.4 pg (25.7-33.7); MCHC 33.3 g/dl (32.0-35.9); MEAN CELL VOLUME 82.3 fl (80-96); MEAN PLT VOLUME 7.8 fl (7.5-11.1); MONO % 6.4 % (3.8-10.2); NEUT % 71.1 % (42.8-82.8); PLATELET COUNT 116 K/MM3 (134-434); RBC 3.98 M/mm3 (4.00-5.60); RDW 17.3 % (11.9-15.9); WHITE BLOOD COUNT 5.1 K/mm3 (4.0-10.0)
[2018-08-06 07:56] LABS: ANION GAP 5 MMOL/L (8-16); BLOOD UREA NITROGEN 24 mg/dL (7-18); CHLORIDE 108 mmol/L (98-107); CO2 26 mmol/L (21-32); CREATININE 1.2 mg/dL (0.55-1.3); GLUCOSE,RANDOM 134 mg/dL (74-106); PHOSPHOROUS 3.6 mg/dL (2.5-4.9); POTASSIUM 4.5 mmol/L (3.5-5.1); SODIUM 139 mmol/L (136-145)
[2018-08-06] MEDS: ALBUTEROL SO4 2.5/IPRATROPIUM 0.5 INH SOL 3 ML VIAL.NEB. NEB SCH ×3 (08:07→20:50)
[2018-08-06] MEDS ORDERED: PT OWN MED DRAWER 7, Y5N ONE (10:13)
[2018-08-06] MEDS: LACTATED RINGERS SOLUTION 1,000 ML/1,000 ML INFUS.BAG IV SCH ×2 (10:18→17:02)
[2018-08-06] MEDS: BUDESONIDE/FORMETEROL FUMARATE 160/4.5 mcg INHALER IH SCH ×2 (10:19→23:29)
[2018-08-06] MEDS: CARVEDILOL 3.125 MG TABLET (FP) PO SCH ×2 (10:19→22:28)
--- NOTE | 2018-08-06 11:46 | PN ---
Progress Note, Physician History of Present Illness: Barium swallow confirms distal GE junction spasm and luminal narrowing, remains on dysphagia diet. - Current Medication List Current Medications: Active Medications Albuterol Sulfate (Ventolin Hfa Inhaler -) 2 puff IH Q8H PRN PRN Reason: SHORTNESS OF BREATH Albuterol/Ipratropium (Duoneb -) 1 amp NEB RTID [facility] Last Admin: 08/06/18 08:07 Dose: Not Given Budesonide/Formoterol Fumarate (Symbicort 160/4.5mcg -) 2 puff IH BID [facility] Last Admin: 08/06/18 10:19 Dose: 2 puff Carvedilol (Coreg -) 3.125 mg PO BID [facility] Last Admin: 08/06/18 10:19 Dose: 3.125 mg Escitalopram Oxalate (Lexapro -) 20 mg PO HS [facility] Last Admin: 08/05/18 22:07 Dose: 20 mg Heparin Sodium (Porcine) (Heparin -) 5,000 unit SQ TID [facility] Last Admin: 08/06/18 06:16 Dose: 5,000 unit Lactated Ringer's (Lactated Ringers Solution) 1,000 ml in 1,000 mls @ 42 mls/ hr IV ASDIR [facility] Last Admin: 08/06/18 10:18 Dose: 42 mls/hr Insulin Aspart (Novolog Vial Sliding Scale -) 1 vial SQ [facility]; Protocol Last Admin: 08/06/18 06:16 Dose: Not Given Melatonin (Melatonin) 10 mg PO HS PRN PRN Reason: INSOMNIA Last Admin: 08/05/18 22:07 Dose: 10 mg Rosuvastatin Calcium (Crestor -) 20 mg PO [facility] Last Admin: 08/05/18 22:07 Dose: 20 mg - Objective Vital Signs: Vital Signs Temperature 98 F 08/06/18 10:23 Pulse Rate 58 L 08/06/18 10:23 Respiratory Rate 19 08/06/18 10:23 Blood Pressure 150/63 08/06/18 10:23 O2 Sat by Pulse Oximetry (%) 97 08/05/18 19:00 Constitutional: Yes: No Distress, Calm Neck: Yes: Supple Cardiovascular: Yes: Regular Rate and Rhythm Respiratory: Yes: Regular, CTA Bilaterally Gastrointestinal: Yes: Soft, Hypoactive Bowel Sounds Edema: No Labs: CBC, BMP 08/06/18 06:40 08/06/18 06:40 INR, PTT INR 0.99 (0.83-1.09) 08/04/18 06:00 Problem List - Problems (1) Ischemic cardiomyopathy Code(s): I25.5 - ISCHEMIC CARDIOMYOPATHY (2) ICD (implantable cardioverter-defibrillator) in place Code(s): Z95.810 - PRESENCE OF AUTOMATIC (IMPLANTABLE) CARDIAC DEFIBRILLATOR (3) Dysphagia Code(s): R13.10 - DYSPHAGIA, UNSPECIFIED Qualifiers: Dysphagia type: esophageal phase Qualified Code(s): R13.10 - Dysphagia, unspecified (4) Acute on chronic renal insufficiency Code(s): N28.9 - DISORDER OF KIDNEY AND URETER, UNSPECIFIED; N18.9 - CHRONIC KIDNEY DISEASE, UNSPECIFIED (5) CAD (coronary artery disease) Code(s): I25.10 - ATHSCL HEART DISEASE OF [place] CORONARY ARTERY W/O ANG PCTRS Qualifiers: Coronary Disease-Associated Artery/Lesion type: [place] artery [place] vs. transplanted heart: [place] heart Associated angina: without angina Qualified Code(s): I25.10 - Atherosclerotic heart disease of [place] coronary artery without angina pectoris (6) COPD (chronic obstructive pulmonary disease) Code(s): J44.9 - CHRONIC OBSTRUCTIVE PULMONARY DISEASE, UNSPECIFIED Qualifiers: COPD type: unspecified COPD Qualified Code(s): J44.9 - Chronic obstructive pulmonary disease, unspecified (7) History of percutaneous coronary intervention Code(s): Z98.890 - OTHER SPECIFIED POSTPROCEDURAL STATES (8) Hx of CABG Code(s): Z95.1 - PRESENCE OF AORTOCORONARY BYPASS GRAFT (9) Hyperlipidemia Code(s): E78.5 - HYPERLIPIDEMIA, UNSPECIFIED Qualifiers: Hyperlipidemia type: pure hypercholesterolemia Qualified Code(s): E78.00 - Pure hypercholesterolemia, unspecified; E78.0 - Pure hypercholesterolemia (10) PVD (peripheral vascular disease) Code(s): I73.9 - PERIPHERAL VASCULAR DISEASE, UNSPECIFIED (11) Achalasia Code(s): K22.0 - ACHALASIA OF CARDIA Assessment/Plan 09/24/2017 R&LHc: Dilated ischemia cardiomyopathy, occluded SVG->OM1, patent LOPEZ->LAD, RA->OM2 08/04/2018 Echo: Normal LV size with moderate decreased LVEF mild TR, mild VELMA, mild-mod MR 1. Pre-procedural CV evaluation 2. Achalasia, hiatal hernia 3. CAD s/p PCI/stent, CABG, angina pectoris 4. Severe LV systolic dysfunction with class 2 NYHA classification failure 5. s/p Med[employer]onic ICD for primary prevention 6. HTN/HCVD 7. Acute on CKD improved with hydration 8. Type 2 DM 9. Hyperlipidemia 10. COPD 11. PAD s/p [employer] INTERN, carotid artery disease 12, Dizziness with orthostasis P:1. F/u esophagram, possible EGD with pneumatic dilatation and LES Botox injections, aspiration precautions, clear liquid diet, patient should be eating sitting upright 2. Given recent cath and absence of symptoms of acute coronary syndrome, decompensated CHF or malignant arrhythmia, may proceed with EGD from CV- standpoint without further testing. Plavix will be held pre-procedure, there is a very small chance of very late-stent thrombosis while off all antiplatelet agents and risk may be mitigated with clifford-procedural ASA 81 qd, but per Dr. Saldana, he cannot proceed with procedure while on ASA 81 qd either, he will be on sc heparin in meantime for DVT prophylaxis. 3. Continue Crestor 20 qd, carvedilol 3.125 bid, resume Entresto 24/26 bid, Lasix 20 qd as hemodynamics tolerate now that renal fxn stabilized 4. Off empiric abx course per C&S, BD, O2 as needed, DVT prophylaxis
--- NOTE | 2018-08-06 13:00 | PN ---
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 Pt on Clear liquids. Pt tolerating liquids without difficulty. Upgrade diet per GI, as tolerated.
--- NOTE | 2018-08-06 13:41 | PN ---
Progress Note, Physician History of Present Illness: pulmonary alert,no distress,-sob,-cp - Current Medication List Current Medications: Active Medications Albuterol Sulfate (Ventolin Hfa Inhaler -) 2 puff IH Q8H PRN PRN Reason: SHORTNESS OF BREATH Albuterol/Ipratropium (Duoneb -) 1 amp NEB RTID [facility] Last Admin: 08/06/18 08:07 Dose: Not Given Budesonide/Formoterol Fumarate (Symbicort 160/4.5mcg -) 2 puff IH BID [facility] Last Admin: 08/06/18 10:19 Dose: 2 puff Carvedilol (Coreg -) 3.125 mg PO BID [facility] Last Admin: 08/06/18 10:19 Dose: 3.125 mg Escitalopram Oxalate (Lexapro -) 20 mg PO HS [facility] Last Admin: 08/05/18 22:07 Dose: 20 mg Heparin Sodium (Porcine) (Heparin -) 5,000 unit SQ TID [facility] Last Admin: 08/06/18 06:16 Dose: 5,000 unit Lactated Ringer's (Lactated Ringers Solution) 1,000 ml in 1,000 mls @ 42 mls/ hr IV ASDIR [facility] Last Admin: 08/06/18 10:18 Dose: 42 mls/hr Insulin Aspart (Novolog Vial Sliding Scale -) 1 vial SQ [facility]; Protocol Last Admin: 08/06/18 12:10 Dose: Not Given Melatonin (Melatonin) 10 mg PO HS PRN PRN Reason: INSOMNIA Last Admin: 08/05/18 22:07 Dose: 10 mg Rosuvastatin Calcium (Crestor -) 20 mg PO [facility] Last Admin: 08/05/18 22:07 Dose: 20 mg Sacubitril/Valsartan (Entresto 24 Mg-26 Mg Tablet) 1 tab PO BID [facility] - Objective Vital Signs: Vital Signs Temperature 98 F 08/06/18 10:23 Pulse Rate 58 L 08/06/18 10:23 Respiratory Rate 08/06/18 10:23 Blood Pressure 150/63 08/06/18 10:23 O2 Sat by Pulse Oximetry (%) 97 08/05/18 19:00 Constitutional: Yes: Well Nourished, Calm Eyes: Yes: WNL HENT: Yes: WNL Neck: Yes: WNL Cardiovascular: Yes: Regular Rate and Rhythm, S1, S2 Respiratory: Yes: Diminished Gastrointestinal: Yes: Normal Bowel Sounds, Soft Extremities: Yes: WNL Edema: No Labs: CBC, BMP 08/06/18 06:40 08/06/18 06:40 INR, PTT INR 0.99 (0.83-1.09) 08/04/18 06:00 Problem List - Problems (1) Hypotension Code(s): I95.9 - HYPOTENSION, UNSPECIFIED (2) Hypotension Code(s): I95.9 - HYPOTENSION, UNSPECIFIED (3) Failure to thrive in adult Code(s): R62.7 - ADULT FAILURE TO THRIVE (4) Generalized weakness Code(s): R53.1 - WEAKNESS (5) Acute on chronic renal insufficiency Code(s): N28.9 - DISORDER OF KIDNEY AND URETER, UNSPECIFIED; N18.9 - CHRONIC KIDNEY DISEASE, UNSPECIFIED (6) Anemia Code(s): D64.9 - ANEMIA, UNSPECIFIED Qualifiers: Anemia type: due to chronic kidney disease Chronic kidney disease stage: stage 3 (moderate) Qualified Code(s): N18.3 - Chronic kidney disease, stage 3 (moderate); D63.1 - Anemia in chronic kidney disease; D63.1 - Anemia in chronic kidney disease (7) CAD (coronary artery disease) Code(s): I25.10 - ATHSCL HEART DISEASE OF [place] CORONARY ARTERY W/O ANG PCTRS Qualifiers: Coronary Disease-Associated Artery/Lesion type: [place] artery [place] vs. transplanted heart: [place] heart Associated angina: without angina Qualified Code(s): I25.10 - Atherosclerotic heart disease of [place] coronary artery without angina pectoris (8) CKD (chronic kidney disease) Code(s): N18.9 - CHRONIC KIDNEY DISEASE, UNSPECIFIED Qualifiers: Chronic kidney disease stage: stage 3 (moderate) Qualified Code(s): N18.3 - Chronic kidney disease, stage 3 (moderate) (9) COPD (chronic obstructive pulmonary disease) Code(s): J44.9 - CHRONIC OBSTRUCTIVE PULMONARY DISEASE, UNSPECIFIED Qualifiers: COPD type: unspecified COPD Qualified Code(s): J44.9 - Chronic obstructive pulmonary disease, unspecified (10) Congestive heart failure Code(s): I50.9 - HEART FAILURE, UNSPECIFIED (11) Hx of CABG Code(s): Z95.1 - PRESENCE OF AORTOCORONARY BYPASS GRAFT (12) PVD (peripheral vascular disease) Code(s): I73.9 - PERIPHERAL VASCULAR DISEASE, UNSPECIFIED Assessment/Plan IMP COPD HYPOTENSION CORRECTED CHF SEVERE LV DYSFUNCTION S/P AICD ASHD S/P CABG PVD IDDM WEAKNESS H/O PARTIAL GASTRECTOMY CKD UTI PLAN INHALED BRONCHODILATORS O2 MONITOR BP ,ORTHOSTATICS PO TOLERATED DR DELVALLE Problem List - Problems (1) Hypotension Code(s): I95.9 - HYPOTENSION, UNSPECIFIED (2) Hypotension Code(s): I95.9 - HYPOTENSION, UNSPECIFIED (3) Failure to thrive in adult Code(s): R62.7 - ADULT FAILURE TO THRIVE (4) Generalized weakness Code(s): R53.1 - WEAKNESS (5) Acute on chronic renal insufficiency Code(s): N28.9 - DISORDER OF KIDNEY AND URETER, UNSPECIFIED; N18.9 - CHRONIC KIDNEY DISEASE, UNSPECIFIED (6) Anemia Code(s): D64.9 - ANEMIA, UNSPECIFIED Qualifiers: Anemia type: due to chronic kidney disease Chronic kidney disease stage: stage 3 (moderate) Qualified Code(s): N18.3 - Chronic kidney disease, stage 3 (moderate); D63.1 - Anemia in chronic kidney disease; D63.1 - Anemia in chronic kidney disease (7) CAD (coronary artery disease) Code(s): I25.10 - ATHSCL HEART DISEASE OF [place] CORONARY ARTERY W/O ANG PCTRS Qualifiers: Coronary Disease-Associated Artery/Lesion type: [place] artery [place] vs. transplanted heart: [place] heart Associated angina: without angina Qualified Code(s): I25.10 - Atherosclerotic heart disease of [place] coronary artery without angina pectoris (8) CKD (chronic kidney disease) Code(s): N18.9 - CHRONIC KIDNEY DISEASE, UNSPECIFIED Qualifiers: Chronic kidney disease stage: stage 3 (moderate) Qualified Code(s): N18.3 - Chronic kidney disease, stage 3 (moderate) (9) COPD (chronic obstructive pulmonary disease) Code(s): J44.9 - CHRONIC OBSTRUCTIVE PULMONARY DISEASE, UNSPECIFIED Qualifiers: COPD type: unspecified COPD Qualified Code(s): J44.9 - Chronic obstructive pulmonary disease, unspecified (10) Congestive heart failure Code(s): I50.9 - HEART FAILURE, UNSPECIFIED (11) Hx of CABG Code(s): Z95.1 - PRESENCE OF AORTOCORONARY BYPASS GRAFT (12) PVD (peripheral vascular disease) Code(s): I73.9 - PERIPHERAL VASCULAR DISEASE, UNSPECIFIED
--- NOTE | 2018-08-06 15:17 | PN ---
Physical Exam: SUBJECTIVE: Patient seen and examined at bedside. Continues to c/o dizziness, otherwise feeling well. OBJECTIVE: Vital Signs Period Temp Pulse Resp BP Sys/Garcia Pulse Ox Last 24 Hr 97.3 F-98.2 F 58-87 18-20 100-150/49-87 97-97 GENERAL: A&Ox3, NAD HEENT: NC/AT, PERRLA, EOMI, MMM NECK: Trachea midline, full range of motion, supple. LUNGS: CTA b/l HEART: RRR no m/r/g ABDOMEN: +bs, soft, NT, ND EXTREMITIES: 2+ pulses, warm, well-perfused, no edema. 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 SKIN: Warm, dry, normal turgor, no rashes or lesions noted Laboratory Results - last 24 hr 08/04/18 08/05/18 08/05/18 06:00 17:25 22:13 WBC RBC Hgb Hct MCV MCH MCHC RDW Plt Count MPV Absolute Neuts (auto) Neutrophils % Lymphocytes % Monocytes % Eosinophils % Basophils % Nucleated RBC % Sodium Potassium Chloride Carbon Dioxide Anion Gap BUN Creatinine Creat Clearance w eGFR POC Glucometer 247 154 Random Glucose Calcium Phosphorus Magnesium HCV Quantitation Hcv not detected HCV RNA log copies/mL TNP 08/06/18 08/06/18 08/06/18 06:05 06:40 06:40 WBC 5.1 RBC 3.98 L Hgb 10.9 L Hct 32.8 L MCV 82.3 MCH 27.4 MCHC 33.3 RDW 17.3 H Plt Count 116 L MPV 7.8 Absolute Neuts (auto) 3.6 Neutrophils % 71.1 Lymphocytes % 20.3 Monocytes % 6.4 Eosinophils % 1.6 Basophils % 0.6 Nucleated RBC % 0 Sodium 139 Potassium 4.5 Chloride 108 H Carbon Dioxide 26 Anion Gap 5 L BUN 24 H Creatinine 1.2 Creat Clearance w eGFR 58.86 POC Glucometer 126 Random Glucose 134 H Calcium 9.0 Phosphorus 3.6 Magnesium 2.0 HCV Quantitation HCV RNA log copies/mL Active Medications Generic Name Dose Route Start Last Admin Trade Name Freq PRN Reason Stop Dose Admin Albuterol Sulfate 2 puff 08/03/18 21:42 Ventolin Hfa Inhaler - IH Q8H PRN SHORTNESS OF BREATH Albuterol/Ipratropium 1 amp 08/05/18 14:00 08/06/18 14:45 Duoneb - NEB 1 amp RTID KADEEM Administration Budesonide/Formoterol Fumarate 2 puff 08/03/18 22:00 08/06/18 10:19 Symbicort 160/4.5mcg - IH 2 puff BID KADEEM Administration Carvedilol 3.125 mg 08/03/18 22:00 08/06/18 10:19 Coreg - PO 3.125 mg BID KADEEM Administration Escitalopram Oxalate 20 mg 08/03/18 22:00 08/05/18 22:07 Lexapro - PO 20 mg HS KADEEM Administration Heparin Sodium (Porcine) 5,000 unit 08/04/18 06:00 08/06/18 06:16 Heparin - SQ 5,000 unit TID KADEEM Administration Lactated Ringer's 1,000 ml in 1,000 mls @ 42 mls/hr 08/04/18 12:30 08/06/18 10:18 Lactated Ringers Solution IV 42 mls/hr ASDIR KADEEM Administration Insulin Aspart 1 vial 08/03/18 22:00 08/06/18 12:10 Novolog Vial Sliding Scale - SQ Not Given ACHS [facility] Protocol Melatonin 10 mg 08/03/18 19:02 08/05/18 22:07 Melatonin PO 10 mg HS PRN Administration INSOMNIA Rosuvastatin Calcium 20 mg 08/03/18 22:00 08/05/18 22:07 Crestor - PO 20 mg HS KADEEM Administration Sacubitril/Valsartan 1 tab 08/06/18 22:00 Entresto 24 Mg-26 Mg Tablet PO BID [facility] ASSESSMENT/PLAN: 78 y/o M w/ PMHx urethral stricture c/b fungemia s/p cystoscopy 07/24/18 w/ Dr. Geetha Limon, systolic CHF (EF 25% on most recent echo), achalasia, CAD s/p stenting, HTN, DM sent to the ED for evaluation of generalized weakness and dizziness. #Hypotension, Dizziness -still significantly orthostatic -giving gentle hydration, will follow orthostatic VS -echo without quantitative data #chronic dysphagia w/ achalasia -speech/swallow following -MBS showing esophageal narrowing with stasis of barium pill -for EGD, LES Botox no sooner than 09/08 -holding Plavix in anticipation of EGD #sCHF w/ AICD -last documented echo w/ EF 29% -repeat echo does not quantify EF -holding Lasix given orthostasis -Entresto restarted per cardiology #COPD -stable -resume home inhalers -pulm following #DM -BGM ACHS -ISS ACHS #HTN -cont coreg -Entresto restarted per cardiology #FEN -LR @ 42 -monitor lytes, replete PRN -clear liquid #PPx -DVT: SCDs -GI: not indicated #Dispo -observe on med surg Visit type - Emergency Visit Emergency Visit: No - New Patient This patient is new to me today: No - Critical Care Critical Care patient: No
--- NOTE | 2018-08-06 17:58 | PN.GI ---
GI Progress Note Subjective: No acute events No abdominal pain Esophagram = spasm / narrowing of the distal esophagus, hiatal hernia. barium pill able to pass area of narrowing Tolerating clear and fulls - Objective Vital Signs: Vital Signs Temperature 97.6 F 08/06/18 14:01 Pulse Rate 70 08/06/18 14:01 Respiratory Rate 18 08/06/18 14:01 Blood Pressure 106/57 L 08/06/18 14:01 O2 Sat by Pulse Oximetry (%) 97 08/06/18 11:00 Constitutional: Calm Eyes: No: Sclera Icterus Cardiovascular: Yes: Regular Rate and Rhythm Respiratory: Yes: CTA Bilaterally Gastrointestinal Inspection: No: Distention ...Auscultate: Yes: Normoactive Bowel Sounds ...Palpate: Yes: Soft. No: Hepatomegaly, Splenomegaly, Tenderness Edema: No (No LE edema) Labs: CBC, BMP 08/06/18 06:40 08/06/18 06:40 INR, PTT INR 0.99 (0.83-1.09) 08/04/18 06:00 Problem List - Problems (1) Dysphagia Assessment/Plan: Tolerating Full liquids. Plan is for follow-up EGD thursday. Discussed potential risks of the procedure like but not limited to bleeding, perforation requiring surgery to repair, infection, sedation medication effects all of which could be potentially life threatening. He has agreed to the procedure. Consent obtained. Code(s): R13.10 - DYSPHAGIA, UNSPECIFIED Qualifiers: Dysphagia type: esophageal phase Qualified Code(s): R13.10 - Dysphagia, unspecified
--- NOTE | 2018-08-06 19:55 | PN ---
Teaching Attending Note Name of Resident: Dhruv Najera ATTENDING PHYSICIAN STATEMENT I saw and evaluated the patient. I reviewed the resident's note and discussed the case with the resident. I agree with the resident's findings and plan as documented. SUBJECTIVE: Still reports lightheadedness on standing. No dysuria/hematuria/ fever/chills. OBJECTIVE: Afebrile, Hemodynamically Stable, BP improved, still orthostatic. SBP drop from 130 to 100 on standing from supine position Last Vital Signs Temp Pulse Resp BP Pulse Ox 97.6 F 70 18 106/57 L 97 08/06/18 14:01 08/06/18 14:01 08/06/18 19:00 08/06/18 14:01 08/06/18 19:00 HEENT - Normocephalic, F[place]A Heart - S1, S2, RRR Lungs - clear to auscultation Abdomen - Soft, non-tender. Bowel Sounds normal. Extremities - no edema, no calf tenderness. Neuro - AAO x 3. EOMI, No nystagmus. Tone/Power normal all 4 extremities. Laboratory Results - last 24 hr 08/04/18 08/05/18 08/06/18 06:00 22:13 06:05 WBC RBC Hgb Hct MCV MCH MCHC RDW Plt Count MPV Absolute Neuts (auto) Neutrophils % Lymphocytes % Monocytes % Eosinophils % Basophils % Nucleated RBC % Sodium Potassium Chloride Carbon Dioxide Anion Gap BUN Creatinine Creat Clearance w eGFR POC Glucometer 154 126 Random Glucose Calcium Phosphorus Magnesium HCV Quantitation Hcv not detected HCV RNA log copies/mL TNP 08/06/18 08/06/18 08/06/18 06:40 06:40 17:44 WBC 5.1 RBC 3.98 L Hgb 10.9 L Hct 32.8 L MCV 82.3 MCH 27.4 MCHC 33.3 RDW 17.3 H Plt Count 116 L MPV 7.8 Absolute Neuts (auto) 3.6 Neutrophils % 71.1 Lymphocytes % 20.3 Monocytes % 6.4 Eosinophils % 1.6 Basophils % 0.6 Nucleated RBC % 0 Sodium 139 Potassium 4.5 Chloride 108 H Carbon Dioxide 26 Anion Gap 5 L BUN 24 H Creatinine 1.2 Creat Clearance w eGFR 58.86 POC Glucometer 253 Random Glucose 134 H Calcium 9.0 Phosphorus 3.6 Magnesium 2.0 HCV Quantitation HCV RNA log copies/mL Current Medications Generic Name Dose Route Start Last Admin Trade Name Freq PRN Reason Stop Dose Admin Albuterol Sulfate 2 puff 08/03/18 21:42 Ventolin Hfa Inhaler - IH Q8H PRN SHORTNESS OF BREATH Albuterol/Ipratropium 1 amp 08/05/18 14:00 08/06/18 14:45 Duoneb - NEB 1 amp RTID KADEEM Administration Budesonide/Formoterol Fumarate 2 puff 08/03/18 22:00 08/06/18 10:19 Symbicort 160/4.5mcg - IH 2 puff BID KADEEM Administration Carvedilol 3.125 mg 08/03/18 22:00 08/06/18 10:19 Coreg - PO 3.125 mg BID KADEEM Administration Escitalopram Oxalate 20 mg 08/03/18 22:00 08/05/18 22:07 Lexapro - PO 20 mg HS KADEEM Administration Heparin Sodium (Porcine) 5,000 unit 08/04/18 06:00 08/06/18 14:02 Heparin - SQ Not Given TID KADEEM Lactated Ringer's 1,000 ml in 1,000 mls @ 42 mls/hr 08/04/18 12:30 08/06/18 17:02 Lactated Ringers Solution IV Not Given ASDIR KADEEM Insulin Aspart 1 vial 08/03/18 22:00 08/06/18 18:29 Novolog Vial Sliding Scale - SQ 6 unit ACHS KADEEM Administration Protocol Melatonin 10 mg 08/03/18 19:02 08/05/18 22:07 Melatonin PO 10 mg HS PRN Administration INSOMNIA Rosuvastatin Calcium 20 mg 08/03/18 22:00 08/05/18 22:07 Crestor - PO 20 mg HS KADEEM Administration Sacubitril/Valsartan 1 tab 08/06/18 22:00 Entresto 24 Mg-26 Mg Tablet PO BID KADEEM ASSESSMENT AND PLAN: 78 year old male with history of Chronic Systolic CHF (EF 25-30%), s/p AICD, CAD s/p CABG, PAD s/p Fem-Pop bypass, DM 2, BPH, Hx Achalasia s/p Heller's Myotomy with residual Dysphagia, Depression, PUD s/p partial gastrectomy (Broth Type II), HTN, HLD, COPD, ex-smoker, presented with increasing weakness, dizziness, worsening dysphagia with regurgitation, recent cystoscopy and treatment for UTI with Fluconazole and BActrim, fpound to have hypotension. 1. Dizziness/Lightheadedness secondary to Orthostatic Hypotension secondary to dehydration and anti-hypertensive polypharmacy Urine Cx negative - empiric Ceftriaxone discontinued. Still on Gentle IV hydration as repeat Orthostatic vitals still demonstrate a significant drop on standing. Will consider resuming Lasix at lower dose perhaps if BP normalizes and once he is asymptomatic. 2. Chronic Dysphagia secondary to Achalasia MBS shows possible stricture. Barium Swallow shows contraction of distal thoracic esophagus with spasm luminal narrowing at GEJ GI consulted for EGD/Intervention - unable to do before Thursday due to patient's use of Plavix. 3. Chronic Systolic CHF with EF 25% s/p AICD repeat Echo - moderately reduced EF with global hypokinesis and moderate MR No evidence of acute decompensation. Lasix held currently due to symptomatic orthostatic hypotension. Cardiology consulted for further guidance regarding orthostasis. Entresto resumed by Cardiology. 4. COPD - no evidence of acute decompensation. Continue Symbicort, Albuterol. 5. DM 2 - maintain on Novolog sliding scale. 6. PAD s/p fem-pop bypass - continue Plavix, Statin. 7. HTN - resumed on Subcutril/Valsartan by Cardiology. Continue Coreg 8. HLD - Contnue Crestor 9. PUD s/p Partial Gastrectomy - on Pantoprazole. 10. CAD s/p CABG - normally on Plavix, BB, DANIELLE, Statin. 11. BPH - Continue Flomax 12. Depression - stable. Continue Lexapro. DVT Px - Heparin SQ
--- NOTE | 2018-08-06 19:58 | PN ---
Teaching Attending Note ATTENDING PHYSICIAN STATEMENT I saw and evaluated the patient. I reviewed the resident's note and discussed the case with the resident. I agree with the resident's findings and plan as documented. SUBJECTIVE: OBJECTIVE: ASSESSMENT AND PLAN:
[2018-08-06] MEDS: ROSUVASTATIN CA 20 MG TABLET (FP) PO SCH (22:28)
[2018-08-06] MEDS: ESCITALOPRAM OXALATE 20 MG TABLET (FP) PO SCH (22:28)
[2018-08-06] MEDS: MELATONIN 5 MG TABLETS PO PRN (22:28)
[2018-08-06] MEDS: SACUBITRIL/VALSARTAN 24 MG-26 MG TABLET PO SCH (23:30)
[2018-08-07] MEDS: HEPARIN NA (PORCINE) 5,000 UNITS/ML 1ML VIAL SQ SCH ×3 (06:26→22:14)
[2018-08-07] MEDS: INSULIN SLIDING SCALE (NOVOLOG) 1 VIAL SQ SCH ×4 (06:29→22:14)
[2018-08-07 08:09] LABS: ANION GAP 8 MMOL/L (8-16); BLOOD UREA NITROGEN 18 mg/dL (7-18); CALCIUM 8.6 mg/dL (8.5-10.1); CHLORIDE 109 mmol/L (98-107); CO2 23 mmol/L (21-32); CREATININE 1.1 mg/dL (0.55-1.3); GLUCOSE,RANDOM 148 mg/dL (74-106); MAGNESIUM 1.9 mg/dL (1.8-2.4); PHOSPHOROUS 3.1 mg/dL (2.5-4.9); POTASSIUM 3.9 mmol/L (3.5-5.1); SODIUM 140 mmol/L (136-145)
[2018-08-07] MEDS: ALBUTEROL SO4 2.5/IPRATROPIUM 0.5 INH SOL 3 ML VIAL.NEB. NEB SCH ×3 (08:20→21:18)
[2018-08-07 08:24] LABS: BASO % 0.5 % (0-2.0); EOS % 1.1 % (0-4.5); HEMATOCRIT 31.2 % (35.4-49); HEMOGLOBIN 10.4 GM/dL (11.7-16.9); LYMPH % 17.3 % (8-40); MCH 27.4 pg (25.7-33.7); MCHC 33.3 g/dl (32.0-35.9); MEAN CELL VOLUME 82.3 fl (80-96); MEAN PLT VOLUME 7.8 fl (7.5-11.1); MONO % 6.2 % (3.8-10.2); NEUT % 74.9 % (42.8-82.8); PLATELET COUNT 107 K/MM3 (134-434); RDW 16.6 % (11.9-15.9); WHITE BLOOD COUNT 5.8 K/mm3 (4.0-10.0)
--- NOTE | 2018-08-07 09:17 | PN ---
Physical Exam: SUBJECTIVE: Patient seen and examined at bedside. C/o dizziness on standing as well as while lying down OBJECTIVE: Vital Signs Period Temp Pulse Resp BP Sys/Garcia Pulse Ox Last 24 Hr 97.6 F-98.1 F 57-80 17-19 100-154/50-66 97-98 GENERAL: The patient is awake, alert, and fully oriented, in no acute distress. LUNGS: Breath sounds equal, clear to auscultation bilaterally, no wheezes, no crackles, no accessory muscle use. HEART: Regular rate and rhythm, S1, S2 without murmur, rub or gallop. ABDOMEN: Soft, nontender, nondistended, normoactive bowel sounds, no guarding, no rebound, no hepatosplenomegaly, no masses. EXTREMITIES: 2+ pulses, warm, well-perfused, no edema. NEUROLOGICAL: Cranial nerves II through X grossly intact. Normal speech, gait not observed. SKIN: Warm, dry, normal turgor, no rashes or lesions noted Laboratory Results - last 24 hr 08/04/18 08/06/18 08/06/18 06:00 17:44 22:33 WBC RBC Hgb Hct MCV MCH MCHC RDW Plt Count MPV Absolute Neuts (auto) Neutrophils % Lymphocytes % Monocytes % Eosinophils % Basophils % Nucleated RBC % Sodium Potassium Chloride Carbon Dioxide Anion Gap BUN Creatinine Creat Clearance w eGFR POC Glucometer 253 152 Random Glucose Calcium Phosphorus Magnesium HCV Quantitation Hcv not detected HCV RNA log copies/mL TNP 08/07/18 08/07/18 08/07/18 06:27 07:00 07:00 WBC 5.8 RBC 3.80 L Hgb 10.4 L Hct 31.2 L MCV 82.3 MCH 27.4 MCHC 33.3 RDW 16.6 H Plt Count 107 L MPV 7.8 Absolute Neuts (auto) 4.3 Neutrophils % 74.9 Lymphocytes % 17.3 Monocytes % 6.2 Eosinophils % 1.1 Basophils % 0.5 Nucleated RBC % 0 Sodium 140 Potassium 3.9 Chloride 109 H Carbon Dioxide 23 Anion Gap 8 BUN 18 Creatinine 1.1 Creat Clearance w eGFR 65.08 POC Glucometer 138 Random Glucose 148 H Calcium 8.6 Phosphorus 3.1 Magnesium 1.9 HCV Quantitation HCV RNA log copies/mL Active Medications Generic Name Dose Route Start Last Admin Trade Name Freq PRN Reason Stop Dose Admin Albuterol Sulfate 2 puff 08/03/18 21:42 Ventolin Hfa Inhaler - IH Q8H PRN SHORTNESS OF BREATH Albuterol/Ipratropium 1 amp 08/05/18 14:00 08/07/18 08:20 Duoneb - NEB Not Given RTID KADEEM Budesonide/Formoterol Fumarate 2 puff 08/03/18 22:00 08/06/18 23:29 Symbicort 160/4.5mcg - IH 2 puff BID KADEEM Administration Carvedilol 3.125 mg 08/03/18 22:00 08/06/18 22:28 Coreg - PO 3.125 mg BID KADEEM Administration Escitalopram Oxalate 20 mg 08/03/18 22:00 08/06/18 22:28 Lexapro - PO 20 mg HS KADEEM Administration Heparin Sodium (Porcine) 5,000 unit 08/04/18 06:00 08/07/18 06:26 Heparin - SQ 5,000 unit TID KADEEM Administration Lactated Ringer's 1,000 ml in 1,000 mls @ 42 mls/hr 08/04/18 12:30 08/06/18 17:02 Lactated Ringers Solution IV Not Given ASDIR [facility] Insulin Aspart 1 vial 08/03/18 22:00 08/07/18 06:29 Novolog Vial Sliding Scale - SQ Not Given ACHS [facility] Protocol Melatonin 10 mg 08/03/18 19:02 08/06/18 22:28 Melatonin PO 10 mg HS PRN Administration INSOMNIA Rosuvastatin Calcium 20 mg 08/03/18 22:00 08/06/18 22:28 Crestor - PO 20 mg HS KADEEM Administration Sacubitril/Valsartan 1 tab 08/06/18 22:00 08/06/18 23:30 Entresto 24 Mg-26 Mg Tablet PO 1 tab BID KADEEM Administration ASSESSMENT/PLAN: 78 y/o M w/ PMHx urethral stricture w/ fungemia, systolic CHF (EF 25% on most recent echo), achalasia, CAD s/p stenting, HTN, DM sent to the ED for evaluation of generalized weakness and dizziness. #Hypotension, Dizziness -orthostatic VS yesterday positive, will rpt today. -Patient restarted on entresto and coreg together -Lasix d/c'd 2/2 orthostasis #chronic dysphagia w/ achalasia -speech/swallow following -MBS showing esophageal narrowing with stasis of barium pill -for EGD, LES Botox 08/09 -holding Plavix in anticipation of EGD #sCHF w/ AICD -last documented echo w/ EF 29% -holding Lasix given orthostasis #COPD -stable -c/w home inhalers -pulm following #DM -BGM ACHS -ISS ACHS #HTN -cont coreg -Entresto restarted per cardiology #FEN -LR @ 42 -monitor lytes, replete PRN -clear liquid #Prophy -SCDs #Dispo -observe on med surg Visit type - Emergency Visit Emergency Visit: Yes ED Registration Date: 08/06/18 Care time: The patient presented to the Emergency Department on the above date and was hospitalized for further evaluation of their emergent condition. - New Patient This patient is new to me today: Yes Date on this admission: 08/07/18 - Critical Care Critical Care patient: No - Discharge Referral Referred to [facility] Med [facility] No
[2018-08-07] MEDS ORDERED: PT OWN MED DRAWER 7, Y5N ONE ×2 (09:43→22:07)
[2018-08-07] MEDS: CARVEDILOL 3.125 MG TABLET (FP) PO SCH ×2 (09:45→22:13)
[2018-08-07] MEDS: SACUBITRIL/VALSARTAN 24 MG-26 MG TABLET PO SCH ×2 (09:45→22:14)
[2018-08-07] MEDS: BUDESONIDE/FORMETEROL FUMARATE 160/4.5 mcg INHALER IH SCH ×2 (09:49→22:27)
[2018-08-07] MEDS: LACTATED RINGERS SOLUTION 1,000 ML/1,000 ML INFUS.BAG IV SCH ×2 (10:32→16:41)
[2018-08-07] MEDS ORDERED: INSULIN (NOVOLOG) ASPART 100 UNITS/ML 10ML VIAL ONE (11:45)
--- NOTE | 2018-08-07 13:29 | PN ---
Progress Note (short form) - Note Progress Note: Resting in NAD. No acute events overnight. Intake & Output 08/04/18 08/05/18 08/06/18 08/07/18 23:59 23:59 23:59 23:59 Intake Total 1085 1317 1885 980 Output Total 400 1400 750 475 Balance 685 -83 1135 505 Weight 186 lb Last Vital Signs Temp Pulse Resp BP Pulse Ox 97.8 F 61 16 146/59 L 98 08/07/18 09:00 08/07/18 11:30 08/07/18 09:00 08/07/18 11:30 08/07/18 10:00 Active Medications Albuterol Sulfate (Ventolin Hfa Inhaler -) 2 puff IH Q8H PRN PRN Reason: SHORTNESS OF BREATH Albuterol/Ipratropium (Duoneb -) 1 amp NEB RTID [facility] Last Admin: 08/07/18 08:20 Dose: Not Given Budesonide/Formoterol Fumarate (Symbicort 160/4.5mcg -) 2 puff IH BID [facility] Last Admin: 08/07/18 09:49 Dose: 2 puff Carvedilol (Coreg -) 3.125 mg PO BID [facility] Last Admin: 08/07/18 09:45 Dose: 3.125 mg Escitalopram Oxalate (Lexapro -) 20 mg PO HS [facility] Last Admin: 08/06/18 22:28 Dose: 20 mg Heparin Sodium (Porcine) (Heparin -) 5,000 unit SQ TID [facility] Last Admin: 08/07/18 06:26 Dose: 5,000 unit Lactated Ringer's (Lactated Ringers Solution) 1,000 ml in 1,000 mls @ 42 mls/ hr IV ASDIR [facility] Last Admin: 08/07/18 10:32 Dose: 42 mls/hr Insulin Aspart (Novolog Vial Sliding Scale -) 1 vial SQ ACHS [facility]; Protocol Last Admin: 08/07/18 11:49 Dose: 2 unit Melatonin (Melatonin) 10 mg PO HS PRN PRN Reason: INSOMNIA Last Admin: 08/06/18 22:28 Dose: 10 mg Rosuvastatin Calcium (Crestor -) 20 mg PO HS [facility] Last Admin: 08/06/18 22:28 Dose: 20 mg Sacubitril/Valsartan (Entresto 24 Mg-26 Mg Tablet) 1 tab PO BID KADEEM Last Admin: 08/07/18 09:45 Dose: 1 tab Constitutional: Yes: NAD Eyes: Yes: WNL HENT: Yes: WNL Neck: Yes: WNL Cardiovascular: Yes: Regular Rate and Rhythm, S1, S2 Respiratory: Yes: scattered rhonchi, Diminished at the bases Gastrointestinal: Yes: Normal Bowel Sounds, Soft Extremities: Yes: WNL Edema: No Labs: Laboratory Results - last 24 hr 08/06/18 08/06/18 08/07/18 17:44 22:33 06:27 WBC RBC Hgb Hct MCV MCH MCHC RDW Plt Count MPV Absolute Neuts (auto) Neutrophils % Lymphocytes % Monocytes % Eosinophils % Basophils % Nucleated RBC % Sodium Potassium Chloride Carbon Dioxide Anion Gap BUN Creatinine Creat Clearance w eGFR POC Glucometer 253 152 138 Random Glucose Calcium Phosphorus Magnesium 08/07/18 08/07/18 08/07/18 07:00 07:00 11:26 WBC 5.8 RBC 3.80 L Hgb 10.4 L Hct 31.2 L MCV 82.3 MCH 27.4 MCHC 33.3 RDW 16.6 H Plt Count 107 L MPV 7.8 Absolute Neuts (auto) 4.3 Neutrophils % 74.9 Lymphocytes % 17.3 Monocytes % 6.2 Eosinophils % 1.1 Basophils % 0.5 Nucleated RBC % 0 Sodium 140 Potassium 3.9 Chloride 109 H Carbon Dioxide 23 Anion Gap 8 BUN 18 Creatinine 1.1 Creat Clearance w eGFR 65.08 POC Glucometer 165 Random Glucose 148 H Calcium 8.6 Phosphorus 3.1 Magnesium 1.9 Problem List - Problems (1) Hypotension Code(s): I95.9 - HYPOTENSION, UNSPECIFIED (2) Hypotension Code(s): I95.9 - HYPOTENSION, UNSPECIFIED (3) Failure to thrive in adult Code(s): R62.7 - ADULT FAILURE TO THRIVE (4) Generalized weakness Code(s): R53.1 - WEAKNESS (5) Acute on chronic renal insufficiency Code(s): N28.9 - DISORDER OF KIDNEY AND URETER, UNSPECIFIED; N18.9 - CHRONIC KIDNEY DISEASE, UNSPECIFIED (6) Anemia Code(s): D64.9 - ANEMIA, UNSPECIFIED Qualifiers: Anemia type: due to chronic kidney disease Chronic kidney disease stage: stage 3 (moderate) Qualified Code(s): N18.3 - Chronic kidney disease, stage 3 (moderate); D63.1 - Anemia in chronic kidney disease; D63.1 - Anemia in chronic kidney disease (7) CAD (coronary artery disease) Code(s): I25.10 - ATHSCL HEART DISEASE OF [place] CORONARY ARTERY W/O ANG PCTRS Qualifiers: Coronary Disease-Associated Artery/Lesion type: [place] artery [place] vs. transplanted heart: [place] heart Associated angina: without angina Qualified Code(s): I25.10 - Atherosclerotic heart disease of [place] coronary artery without angina pectoris (8) CKD (chronic kidney disease) Code(s): N18.9 - CHRONIC KIDNEY DISEASE, UNSPECIFIED Qualifiers: Chronic kidney disease stage: stage 3 (moderate) Qualified Code(s): N18.3 - Chronic kidney disease, stage 3 (moderate) (9) COPD (chronic obstructive pulmonary disease) Code(s): J44.9 - CHRONIC OBSTRUCTIVE PULMONARY DISEASE, UNSPECIFIED Qualifiers: COPD type: unspecified COPD Qualified Code(s): J44.9 - Chronic obstructive pulmonary disease, unspecified (10) Congestive heart failure Code(s): I50.9 - HEART FAILURE, UNSPECIFIED (11) Hx of CABG Code(s): Z95.1 - PRESENCE OF AORTOCORONARY BYPASS GRAFT (12) PVD (peripheral vascular disease) Code(s): I73.9 - PERIPHERAL VASCULAR DISEASE, UNSPECIFIED Assessment/Plan IMP COPD HYPOTENSION CORRECTED CHF SEVERE LV DYSFUNCTION S/P AICD ASHD S/P CABG PVD IDDM WEAKNESS H/O PARTIAL GASTRECTOMY CKD UTI PLAN SYMBICORT BID INHALED BRONCHODILATORS O2 MONITOR BP ,ORTHOSTATICS PO TOLERATED DR KEENE
--- NOTE | 2018-08-07 14:02 | PN ---
Progress Note, Physician History of Present Illness: Barium swallow confirms distal GE junction spasm and luminal narrowing, remains on dysphagia diet. - Current Medication List Current Medications: Active Medications Albuterol Sulfate (Ventolin Hfa Inhaler -) 2 puff IH Q8H PRN PRN Reason: SHORTNESS OF BREATH Albuterol/Ipratropium (Duoneb -) 1 amp NEB RTID [facility] Last Admin: 08/07/18 08:20 Dose: Not Given Budesonide/Formoterol Fumarate (Symbicort 160/4.5mcg -) 2 puff IH BID [facility] Last Admin: 08/07/18 09:49 Dose: 2 puff Carvedilol (Coreg -) 3.125 mg PO BID [facility] Last Admin: 08/07/18 09:45 Dose: 3.125 mg Escitalopram Oxalate (Lexapro -) 20 mg PO HS [facility] Last Admin: 08/06/18 22:28 Dose: 20 mg Heparin Sodium (Porcine) (Heparin -) 5,000 unit SQ TID [facility] Last Admin: 08/07/18 13:51 Dose: 5,000 unit Lactated Ringer's (Lactated Ringers Solution) 1,000 ml in 1,000 mls @ 42 mls/ hr IV ASDIR [facility] Last Admin: 08/07/18 10:32 Dose: 42 mls/hr Insulin Aspart (Novolog Vial Sliding Scale -) 1 vial SQ ACHS [facility]; Protocol Last Admin: 08/07/18 11:49 Dose: 2 unit Melatonin (Melatonin) 10 mg PO HS PRN PRN Reason: INSOMNIA Last Admin: 08/06/18 22:28 Dose: 10 mg Rosuvastatin Calcium (Crestor -) 20 mg PO HS [facility] Last Admin: 08/06/18 22:28 Dose: 20 mg Sacubitril/Valsartan (Entresto 24 Mg-26 Mg Tablet) 1 tab PO BID [facility] Last Admin: 08/07/18 09:45 Dose: 1 tab - Objective Vital Signs: Vital Signs Temperature 97.8 F 08/07/18 09:00 Pulse Rate 61 08/07/18 11:30 Respiratory Rate 16 08/07/18 09:00 Blood Pressure 146/59 L 08/07/18 11:30 O2 Sat by Pulse Oximetry (%) 98 08/07/18 10:00 Constitutional: Yes: No Distress, Calm, Thin Neck: Yes: Supple Cardiovascular: Yes: Regular Rate and Rhythm Respiratory: Yes: Regular, CTA Bilaterally Gastrointestinal: Yes: Soft, Hypoactive Bowel Sounds Edema: No Labs: CBC, BMP 08/07/18 07:00 08/07/18 07:00 INR, PTT INR 0.99 (0.83-1.09) 08/04/18 06:00 Problem List - Problems (1) Ischemic cardiomyopathy Code(s): I25.5 - ISCHEMIC CARDIOMYOPATHY (2) ICD (implantable cardioverter-defibrillator) in place Code(s): Z95.810 - PRESENCE OF AUTOMATIC (IMPLANTABLE) CARDIAC DEFIBRILLATOR (3) Dysphagia Code(s): R13.10 - DYSPHAGIA, UNSPECIFIED Qualifiers: Dysphagia type: esophageal phase Qualified Code(s): R13.10 - Dysphagia, unspecified (4) Acute on chronic renal insufficiency Code(s): N28.9 - DISORDER OF KIDNEY AND URETER, UNSPECIFIED; N18.9 - CHRONIC KIDNEY DISEASE, UNSPECIFIED (5) CAD (coronary artery disease) Code(s): I25.10 - ATHSCL HEART DISEASE OF [place] CORONARY ARTERY W/O ANG PCTRS Qualifiers: Coronary Disease-Associated Artery/Lesion type: [place] artery [place] vs. transplanted heart: [place] heart Associated angina: without angina Qualified Code(s): I25.10 - Atherosclerotic heart disease of [place] coronary artery without angina pectoris (6) COPD (chronic obstructive pulmonary disease) Code(s): J44.9 - CHRONIC OBSTRUCTIVE PULMONARY DISEASE, UNSPECIFIED Qualifiers: COPD type: unspecified COPD Qualified Code(s): J44.9 - Chronic obstructive pulmonary disease, unspecified (7) History of percutaneous coronary intervention Code(s): Z98.890 - OTHER SPECIFIED POSTPROCEDURAL STATES (8) Hx of CABG Code(s): Z95.1 - PRESENCE OF AORTOCORONARY BYPASS GRAFT (9) Hyperlipidemia Code(s): E78.5 - HYPERLIPIDEMIA, UNSPECIFIED Qualifiers: Hyperlipidemia type: pure hypercholesterolemia Qualified Code(s): E78.00 - Pure hypercholesterolemia, unspecified; E78.0 - Pure hypercholesterolemia (10) PVD (peripheral vascular disease) Code(s): I73.9 - PERIPHERAL VASCULAR DISEASE, UNSPECIFIED (11) Achalasia Code(s): K22.0 - ACHALASIA OF CARDIA Assessment/Plan 09/24/2017 R&LHc: Dilated ischemia cardiomyopathy, occluded SVG->OM1, patent LOPEZ->LAD, RA->OM2 08/04/2018 Echo: Normal LV size with moderate decreased LVEF mild TR, mild VELMA, mild-mod MR 1. Pre-procedural CV evaluation 2. Achalasia, hiatal hernia, h/o partial gastrectomy 3. CAD s/p PCI/stent, CABG, angina pectoris 4. Severe LV systolic dysfunction with class 2 NYHA classification failure 5. s/p [employer] ICD for primary prevention 6. HTN/HCVD 7. Acute on CKD improved with hydration 8. Type 2 DM 9. Hyperlipidemia 10. COPD 11. PAD s/p BRICKLAYER'S ASSISTANT, carotid artery disease 12, Dizziness with orthostasis P:1. Plan for EGD with pneumatic dilatation and LES Botox injections, aspiration precautions, full liquid diet, patient should be eating sitting upright 2. Given recent cath and absence of symptoms of acute coronary syndrome, decompensated CHF or malignant arrhythmia, may proceed with EGD from CV- standpoint without further testing. Plavix will be held pre-procedure, there is a very small chance of very late-stent thrombosis while off all antiplatelet agents and risk may be mitigated with clifford-procedural ASA 81 qd, but per Dr. Saldana, he cannot proceed with procedure while on ASA 81 qd either, he will be on sc heparin in meantime for DVT prophylaxis. 3. Continue Crestor 20 qd, carvedilol 3.125 bid and Entresto 24/26 bid, agree with d/c Lasix 20 qd given orthostasis 4. BD, O2 as needed, DVT prophylaxis
--- NOTE | 2018-08-07 16:14 | PN ---
Teaching Attending Note Name of Resident: Thien Almanzar ATTENDING PHYSICIAN STATEMENT I saw and evaluated the patient. I reviewed the resident's note and discussed the case with the resident. I agree with the resident's findings and plan as documented. SUBJECTIVE: Still reports lightheadedness on standing and sometimes on lying. No dysuria/hematuria/fever/chills. No headache/visual disturbance. No limb numbness/weakness OBJECTIVE: Afebrile, still orthostatic. SBP drop from 145 to 100 on standing from supine position Last Vital Signs Temp Pulse Resp BP Pulse Ox 98.1 F 66 18 129/55 L 98 08/07/18 15:00 08/07/18 15:00 08/07/18 15:00 08/07/18 15:00 08/07/18 10:00 HEENT - Normocephalic, [place] Heart - S1, S2, RRR Lungs - clear to auscultation Abdomen - Soft, non-tender. Bowel Sounds normal. Extremities - no edema, no calf tenderness. Neuro - AAO x 3. EOMI, No nystagmus. Tone/Power normal all 4 extremities. Laboratory Results - last 24 hr 08/06/18 08/06/18 08/07/18 17:44 22:33 06:27 WBC RBC Hgb Hct MCV MCH MCHC RDW Plt Count MPV Absolute Neuts (auto) Neutrophils % Lymphocytes % Monocytes % Eosinophils % Basophils % Nucleated RBC % Sodium Potassium Chloride Carbon Dioxide Anion Gap BUN Creatinine Creat Clearance w eGFR POC Glucometer 253 152 138 Random Glucose Calcium Phosphorus Magnesium 08/07/18 08/07/18 08/07/18 07:00 07:00 11:26 WBC 5.8 RBC 3.80 L Hgb 10.4 L Hct 31.2 L MCV 82.3 MCH 27.4 MCHC 33.3 RDW 16.6 H Plt Count 107 L MPV 7.8 Absolute Neuts (auto) 4.3 Neutrophils % 74.9 Lymphocytes % 17.3 Monocytes % 6.2 Eosinophils % 1.1 Basophils % 0.5 Nucleated RBC % 0 Sodium 140 Potassium 3.9 Chloride 109 H Carbon Dioxide 23 Anion Gap 8 BUN 18 Creatinine 1.1 Creat Clearance w eGFR 65.08 POC Glucometer 165 Random Glucose 148 H Calcium 8.6 Phosphorus 3.1 Magnesium 1.9 Current Medications Generic Name Dose Route Start Last Admin Trade Name Freq PRN Reason Stop Dose Admin Albuterol Sulfate 2 puff 08/03/18 21:42 Ventolin Hfa Inhaler - IH Q8H PRN SHORTNESS OF BREATH Albuterol/Ipratropium 1 amp 08/05/18 14:00 08/07/18 14:50 Duoneb - NEB 1 amp RTID KADEEM Administration Budesonide/Formoterol Fumarate 2 puff 08/03/18 22:00 08/07/18 09:49 Symbicort 160/4.5mcg - IH 2 puff BID KADEEM Administration Carvedilol 3.125 mg 08/03/18 22:00 08/07/18 09:45 Coreg - PO 3.125 mg BID K[facility] Administration Escitalopram Oxalate 20 mg 08/03/18 22:00 08/06/18 22:28 Lexapro - PO 20 mg HS KADEEM Administration Heparin Sodium (Porcine) 5,000 unit 08/04/18 06:00 08/07/18 13:51 Heparin - SQ 5,000 unit TID KADE[facility] Administration Lactated Ringer's 1,000 ml in 1,000 mls @ 42 mls/hr 08/04/18 12:30 08/07/18 10:32 Lactated Ringers Solution IV 42 mls/hr ASDIR KADEEM Administration Insulin Aspart 1 vial 08/03/18 22:00 08/07/18 11:49 Novolog Vial Sliding Scale - SQ 2 unit ACHS KADEEM Administration Protocol Melatonin 10 mg 08/03/18 19:02 08/06/18 22:28 Melatonin PO 10 mg HS PRN Administration INSOMNIA Rosuvastatin Calcium 20 mg 08/03/18 22:00 08/06/18 22:28 Crestor - PO 20 mg HS KADEEM Administration Sacubitril/Valsartan 1 tab 08/06/18 22:00 08/07/18 09:45 Entresto 24 Mg-26 Mg Tablet PO 1 tab BID [facility] Administration ASSESSMENT AND PLAN: 78 year old male with history of Chronic Systolic CHF (EF 25-30%), s/p AICD, CAD s/p CABG, PAD s/p Fem-Pop bypass, DM 2, BPH, 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 1. Dizziness/Lightheadedness secondary to Orthostatic Hypotension secondary to dehydration and possibly anti-hypertensive polypharmacy Urine Cx negative - empiric Ceftriaxone discontinued. Still on Gentle IV hydration as repeat Orthostatic vitals still demonstrate a significant drop on standing BPs. Discussed with Cardiology - benefits of BB and DANIELLE/ARB outweight risk of borderline BP on standing hence both recommended by Cardiology. 2. Chronic Dysphagia secondary to Achalasia s/p partial gastrectomy MBS shows possible stricture. Barium Swallow shows contraction of distal thoracic esophagus with spasm luminal narrowing at [facility] consulted for EGD/Intervention - unable to do before Thursday due to patient's use of Plavix (currently held). 3. Chronic Systolic CHF with EF 25% s/p AICD repeat Echo - moderately reduced EF with global hypokinesis and moderate MR No evidence of acute decompensation. Lasix held currently due to symptomatic orthostatic hypotension. Cardiology consulted for further guidance regarding orthostasis - agrees with holding Coumadin and recommends continuing Coreg and Entresto. 4. COPD - no evidence of acute decompensation. Continue Symbicort, Albuterol. 5. DM 2 - maintain on Novolog sliding scale. 6. PAD s/p fem-pop bypass - continue Plavix, Statin. 7. HTN - Continue Coreg and Subcutril/Valsartan (resumed by Cardiology). 8. HLD - Contnue Crestor 9. PUD s/p Partial Gastrectomy - on Pantoprazole. 10. CAD s/p CABG - normally on Plavix, BB, DANIELLE, Statin. 11. BPH - Continue Flomax 12. Depression - stable. Continue Lexapro. DVT Px - Heparin SQ
[2018-08-07] MEDS: ROSUVASTATIN CA 20 MG TABLET (FP) PO SCH (22:13)
[2018-08-07] MEDS: ESCITALOPRAM OXALATE 20 MG TABLET (FP) PO SCH (22:13)
[2018-08-07] MEDS: MELATONIN 5 MG TABLETS PO PRN (22:27)
[2018-08-08] MEDS ORDERED: diphenhydrAMINE HCL 25 MG CAPSULE (FP) PO ONE (00:47)
[2018-08-08] MEDS: HEPARIN NA (PORCINE) 5,000 UNITS/ML 1ML VIAL SQ SCH ×3 (06:53→14:56)
[2018-08-08] MEDS: INSULIN SLIDING SCALE (NOVOLOG) 1 VIAL SQ SCH ×4 (06:53→22:56)
[2018-08-08] MEDS: ALBUTEROL SO4 2.5/IPRATROPIUM 0.5 INH SOL 3 ML VIAL.NEB. NEB SCH ×3 (08:10→20:49)
[2018-08-08] MEDS: CARVEDILOL 3.125 MG TABLET (FP) PO SCH ×2 (09:02→22:15)
[2018-08-08] MEDS: BUDESONIDE/FORMETEROL FUMARATE 160/4.5 mcg INHALER IH SCH ×2 (09:02→22:16)
[2018-08-08] MEDS: SACUBITRIL/VALSARTAN 24 MG-26 MG TABLET PO SCH ×2 (09:02→22:16)
[2018-08-08 09:16] LABS: HEMATOCRIT 31.7 % (35.4-49); HEMOGLOBIN 10.5 GM/dL (11.7-16.9); MCH 27.3 pg (25.7-33.7); MCHC 33.3 g/dl (32.0-35.9); MEAN CELL VOLUME 81.9 fl (80-96); MEAN PLT VOLUME 7.7 fl (7.5-11.1); PLATELET COUNT 113 K/MM3 (134-434); RBC 3.86 M/mm3 (4.00-5.60); RDW 16.7 % (11.9-15.9); WHITE BLOOD COUNT 4.9 K/mm3 (4.0-10.0)
[2018-08-08 09:42] LABS: ANION GAP 8 MMOL/L (8-16); BLOOD UREA NITROGEN 15 mg/dL (7-18); CALCIUM 8.7 mg/dL (8.5-10.1); CHLORIDE 107 mmol/L (98-107); CO2 25 mmol/L (21-32); CREATININE 1.3 mg/dL (0.55-1.3); GLUCOSE,RANDOM 132 mg/dL (74-106); MAGNESIUM 1.6 mg/dL (1.8-2.4); PHOSPHOROUS 2.9 mg/dL (2.5-4.9); POTASSIUM 4.2 mmol/L (3.5-5.1); SODIUM 140 mmol/L (136-145)
--- NOTE | 2018-08-08 11:53 | PN ---
Progress Note (short form) - Note Progress Note: Resting in NAD. No acute events overnight. No CP or SOB. Intake & Output 08/05/18 08/06/18 08/07/18 08/08/18 23:59 23:59 23:59 23:59 Intake Total 1317 1885 1880 450 Output Total 1400 750 475 200 Balance -83 1135 1405 250 Last Vital Signs Temp Pulse Resp BP Pulse Ox 98.6 F 75 20 119/45 L 98 08/08/18 08:55 08/08/18 08:55 08/08/18 08:55 08/08/18 08:55 08/07/18 21:00 Active Medications Albuterol Sulfate (Ventolin Hfa Inhaler -) 2 puff IH Q8H PRN PRN Reason: SHORTNESS OF BREATH Albuterol/Ipratropium (Duoneb -) 1 amp NEB RTID [facility] Last Admin: 08/08/18 08:10 Dose: 1 amp Budesonide/Formoterol Fumarate (Symbicort 160/4.5mcg -) 2 puff IH BID [facility] Last Admin: 08/08/18 09:02 Dose: 2 puff Carvedilol (Coreg -) 3.125 mg PO BID [facility] Last Admin: 08/08/18 09:02 Dose: 3.125 mg Escitalopram Oxalate (Lexapro -) 20 mg PO HS [facility] Last Admin: 08/07/18 22:13 Dose: 20 mg Heparin Sodium (Porcine) (Heparin -) 5,000 unit SQ TID [facility] Last Admin: 08/08/18 06:53 Dose: 5,000 unit Lactated Ringer's (Lactated Ringers Solution) 1,000 ml in 1,000 mls @ 42 mls/ hr IV ASDIR [facility] Last Admin: 08/07/18 16:41 Dose: Not Given Insulin Aspart (Novolog Vial Sliding Scale -) 1 vial SQ ACHS [facility]; Protocol Last Admin: 08/08/18 06:53 Dose: Not Given Melatonin (Melatonin) 10 mg PO HS PRN PRN Reason: INSOMNIA Last Admin: 08/07/18 22:27 Dose: 10 mg Rosuvastatin Calcium (Crestor -) 20 mg PO HS [facility] Last Admin: 08/07/18 22:13 Dose: 20 mg Sacubitril/Valsartan (Entresto 24 Mg-26 Mg Tablet) 1 tab PO BID [facility] Last Admin: 08/08/18 09:02 Dose: 1 tab Constitutional: Yes: NAD Eyes: Yes: WNL HENT: Yes: WNL Neck: Yes: WNL Cardiovascular: Yes: Regular Rate and Rhythm, S1, S2 Respiratory: Yes: scattered rhonchi, Diminished at the bases Gastrointestinal: Yes: Normal Bowel Sounds, Soft Extremities: Yes: WNL Edema: No Labs: Laboratory Results - last 24 hr 08/07/18 08/07/18 08/08/18 16:43 20:59 06:08 WBC RBC Hgb Hct MCV MCH MCHC RDW Plt Count MPV Sodium Potassium Chloride Carbon Dioxide Anion Gap BUN Creatinine Creat Clearance w eGFR POC Glucometer 227 181 137 Random Glucose Calcium Phosphorus Magnesium 08/08/18 08/08/18 07:40 07:40 WBC 4.9 RBC 3.86 L Hgb 10.5 L Hct 31.7 L MCV 81.9 MCH 27.3 MCHC 33.3 RDW 16.7 H Plt Count 113 L MPV 7.7 Sodium 140 Potassium 4.2 Chloride 107 Carbon Dioxide 25 Anion Gap 8 BUN 15 Creatinine 1.3 Creat Clearance w eGFR 53.67 POC Glucometer Random Glucose 132 H Calcium 8.7 Phosphorus 2.9 Magnesium 1.6 L Problem List - Problems (1) Hypotension Code(s): I95.9 - HYPOTENSION, UNSPECIFIED (2) Hypotension Code(s): I95.9 - HYPOTENSION, UNSPECIFIED (3) Failure to thrive in adult Code(s): R62.7 - ADULT FAILURE TO THRIVE (4) Generalized weakness Code(s): R53.1 - WEAKNESS (5) Acute on chronic renal insufficiency Code(s): N28.9 - DISORDER OF KIDNEY AND URETER, UNSPECIFIED; N18.9 - CHRONIC KIDNEY DISEASE, UNSPECIFIED (6) Anemia Code(s): D64.9 - ANEMIA, UNSPECIFIED Qualifiers: Anemia type: due to chronic kidney disease Chronic kidney disease stage: stage 3 (moderate) Qualified Code(s): N18.3 - Chronic kidney disease, stage 3 (moderate); D63.1 - Anemia in chronic kidney disease; D63.1 - Anemia in chronic kidney disease (7) CAD (coronary artery disease) Code(s): I25.10 - ATHSCL HEART DISEASE OF [place] CORONARY ARTERY W/O ANG PCTRS Qualifiers: Coronary Disease-Associated Artery/Lesion type: [place] artery [place] vs. transplanted heart: [place] heart Associated angina: without angina Qualified Code(s): I25.10 - Atherosclerotic heart disease of [place] coronary artery without angina pectoris (8) CKD (chronic kidney disease) Code(s): N18.9 - CHRONIC KIDNEY DISEASE, UNSPECIFIED Qualifiers: Chronic kidney disease stage: stage 3 (moderate) Qualified Code(s): N18.3 - Chronic kidney disease, stage 3 (moderate) (9) COPD (chronic obstructive pulmonary disease) Code(s): J44.9 - CHRONIC OBSTRUCTIVE PULMONARY DISEASE, UNSPECIFIED Qualifiers: COPD type: unspecified COPD Qualified Code(s): J44.9 - Chronic obstructive pulmonary disease, unspecified (10) Congestive heart failure Code(s): I50.9 - HEART FAILURE, UNSPECIFIED (11) Hx of CABG Code(s): Z95.1 - PRESENCE OF AORTOCORONARY BYPASS GRAFT (12) PVD (peripheral vascular disease) Code(s): I73.9 - PERIPHERAL VASCULAR DISEASE, UNSPECIFIED Assessment/Plan IMP COPD HYPOTENSION CORRECTED CHF SEVERE LV DYSFUNCTION S/P AICD ASHD S/P CABG PVD IDDM WEAKNESS H/O PARTIAL GASTRECTOMY CKD UTI PLAN SYMBICORT BID INHALED BRONCHODILATORS O2 MONITOR BP ,ORTHOSTATICS PO TOLERATED DR KEENE
[2018-08-08] MEDS: LACTATED RINGERS SOLUTION 1,000 ML/1,000 ML INFUS.BAG IV SCH (12:00)
--- NOTE | 2018-08-08 15:36 | PN ---
Progress Note (short form) - Note Progress Note: SUBJECTIVE: Still reports lightheadedness on standing and walking. No dysuria/ hematuria/fever/chills. No headache/visual disturbance. No limb numbness/ weakness OBJECTIVE: Afebrile, still orthostatic. SBP drop from 104 to 79 on standing from supine position Last Vital Signs Temp Pulse Resp BP Pulse Ox 97.7 F 67 20 129/62 98 08/08/18 14:41 08/08/18 14:57 08/08/18 14:57 08/08/18 14:57 08/07/18 21:00 HEENT - Normocephalic, [place] Heart - S1, S2, RRR Lungs - clear to auscultation Abdomen - Soft, non-tender. Bowel Sounds normal. Extremities - no edema, no calf tenderness. Neuro - AAO x 3. EOMI, No nystagmus. Tone/Power normal all 4 extremities. Laboratory Results - last 24 hr 08/07/18 08/07/18 08/08/18 16:43 20:59 06:08 WBC RBC Hgb Hct MCV MCH MCHC RDW Plt Count MPV Sodium Potassium Chloride Carbon Dioxide Anion Gap BUN Creatinine Creat Clearance w eGFR POC Glucometer 227 181 137 Random Glucose Calcium Phosphorus Magnesium 08/08/18 08/08/18 08/08/18 07:40 07:40 12:08 WBC 4.9 RBC 3.86 L Hgb 10.5 L Hct 31.7 L MCV 81.9 MCH 27.3 MCHC 33.3 RDW 16.7 H Plt Count 113 L MPV 7.7 Sodium 140 Potassium 4.2 Chloride 107 Carbon Dioxide 25 Anion Gap 8 BUN 15 Creatinine 1.3 Creat Clearance w eGFR 53.67 POC Glucometer 153 Random Glucose 132 H Calcium 8.7 Phosphorus 2.9 Magnesium 1.6 L Current Medications Generic Name Dose Route Start Last Admin Trade Name Freq PRN Reason Stop Dose Admin Albuterol Sulfate 2 puff 08/03/18 21:42 Ventolin Hfa Inhaler - IH Q8H PRN SHORTNESS OF BREATH Albuterol/Ipratropium 1 amp 08/05/18 14:00 08/08/18 14:32 Duoneb - NEB 1 amp RTID KADEEM Administration Budesonide/Formoterol Fumarate 2 puff 08/03/18 22:00 08/08/18 09:02 Symbicort 160/4.5mcg - IH 2 puff BID KADEEM Administration Carvedilol 3.125 mg 08/03/18 22:00 08/08/18 09:02 Coreg - PO 3.125 mg BID KADEEM Administration Escitalopram Oxalate 20 mg 08/03/18 22:00 08/07/18 22:13 Lexapro - PO 20 mg HS KADEEM Administration Lactated Ringer's 1,000 ml in 1,000 mls @ 42 mls/hr 08/04/18 12:30 08/08/18 12:00 Lactated Ringers Solution IV 42 mls/hr ASDIR KADEEM Administration Insulin Aspart 1 vial 08/03/18 22:00 08/08/18 12:09 Novolog Vial Sliding Scale - SQ 2 unit ACHS KADEEM Administration Protocol Melatonin 10 mg 08/03/18 19:02 08/07/18 22:27 Melatonin PO 10 mg HS PRN Administration INSOMNIA Rosuvastatin Calcium 20 mg 08/03/18 22:00 08/07/18 22:13 Crestor - PO 20 mg HS KADEEM Administration Sacubitril/Valsartan 1 tab 08/06/18 22:00 08/08/18 09:02 Entresto 24 Mg-26 Mg Tablet PO 1 tab BID KADEEM Administration ASSESSMENT AND PLAN: 78 year old male with history of Chronic Systolic CHF (EF 25-30%), s/p AICD, CAD s/p CABG, PAD s/p Fem-Pop bypass, DM 2, BPH, 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 1. Dizziness/Lightheadedness secondary to Orthostatic Hypotension secondary to dehydration and possible anti-hypertensive polypharmacy Urine Cx negative - empiric Ceftriaxone discontinued. Still on Gentle IV hydration as repeat Orthostatic vitals consistently still demonstrate a significant drop on standing BPs. Discussed with Cardiology re: concerns of orthostasis and lightheadedness - as per Cardiology, benefits of BB and DANIELLE/ARB outweight risk of borderline BP on standing hence both recommended by Cardiology. 2. Chronic Dysphagia secondary to Achalasia s/p partial gastrectomy MBS shows possible stricture. Barium Swallow shows contraction of distal thoracic esophagus with spasm luminal narrowing at [facility] consulted for EGD/Intervention - unable to do before Thursday due to patient's use of Plavix (currently held). Will keep NPO from [place]. 3. Chronic Systolic CHF with EF 25% s/p AICD repeat Echo - moderately reduced EF with global hypokinesis and moderate MR No evidence of acute decompensation. Lasix held currently due to symptomatic orthostatic hypotension. Cardiology consulted for further guidance regarding orthostasis - agrees with holding Coumadin and recommends continuing Coreg and Entresto. 4. COPD - no evidence of acute decompensation. Continue Symbicort, Albuterol. 5. DM 2 - maintain on Novolog sliding scale. 6. PAD s/p fem-pop bypass - continue Plavix, Statin. 7. HTN - Continue Coreg and Subcutril/Valsartan (resumed by Cardiology). 8. HLD - Contnue Crestor 9. PUD s/p Partial Gastrectomy - on Pantoprazole. 10. CAD s/p CABG - normally on Plavix, BB, DANIELLE, Statin. 11. BPH - Continue Flomax 12. Depression - stable. Continue Lexapro. DVT Px - Heparin SQ (will hold prior to EGD) Visit type - Emergency Visit Emergency Visit: Yes ED Registration Date: 08/06/18 Care time: The patient presented to the Emergency Department on the above date and was hospitalized for further evaluation of their emergent condition. - New Patient This patient is new to me today: No - Critical Care Critical Care patient: No - Discharge Referral Referred to [facility] No
[2018-08-08] MEDS ORDERED: MAGNESIUM SULF 50% (8.12 MEQ/2 ML-1 GM VIAL) IVPB ONE (15:50)
[2018-08-08] MEDS: ESCITALOPRAM OXALATE 20 MG TABLET (FP) PO SCH (22:15)
[2018-08-08] MEDS: ROSUVASTATIN CA 20 MG TABLET (FP) PO SCH (22:15)
[2018-08-08] MEDS: MELATONIN 5 MG TABLETS PO PRN (22:15)
[2018-08-09] MEDS: INSULIN SLIDING SCALE (NOVOLOG) 1 VIAL SQ SCH ×4 (06:36→22:21)
[2018-08-09] MEDS: ALBUTEROL SO4 2.5/IPRATROPIUM 0.5 INH SOL 3 ML VIAL.NEB. NEB SCH ×3 (07:20→20:35)
[2018-08-09 08:05] LABS: BASO % 0.9 % (0-2.0); EOS % 1.5 % (0-4.5); HEMATOCRIT 30.9 % (35.4-49); HEMOGLOBIN 10.6 GM/dL (11.7-16.9); LYMPH % 19.2 % (8-40); MCH 27.9 pg (25.7-33.7); MCHC 34.1 g/dl (32.0-35.9); MEAN CELL VOLUME 81.7 fl (80-96); MEAN PLT VOLUME 7.5 fl (7.5-11.1); MONO % 8.6 % (3.8-10.2); NEUT % 69.8 % (42.8-82.8); PLATELET COUNT 110 K/MM3 (134-434); RBC 3.79 M/mm3 (4.00-5.60); RDW 16.6 % (11.9-15.9); WHITE BLOOD COUNT 4.3 K/mm3 (4.0-10.0)
[2018-08-09 08:24] LABS: ANION GAP 6 MMOL/L (8-16); BLOOD UREA NITROGEN 14 mg/dL (7-18); CALCIUM 8.8 mg/dL (8.5-10.1); CHLORIDE 109 mmol/L (98-107); CO2 26 mmol/L (21-32); CREATININE 1.3 mg/dL (0.55-1.3); GLUCOSE,RANDOM 153 mg/dL (74-106); PHOSPHOROUS 3.8 mg/dL (2.5-4.9); POTASSIUM 4.6 mmol/L (3.5-5.1); SODIUM 141 mmol/L (136-145)
[2018-08-09] MEDS ORDERED: PT OWN MED DRAWER 7, Y5N ONE (09:02)
[2018-08-09] MEDS: BUDESONIDE/FORMETEROL FUMARATE 160/4.5 mcg INHALER IH SCH ×2 (09:07→22:21)
[2018-08-09] MEDS: CARVEDILOL 3.125 MG TABLET (FP) PO SCH ×2 (09:16→22:19)
--- NOTE | 2018-08-09 11:14 | PN ---
Progress Note (short form) - Note Progress Note: Resting in NAD. Still with orthostatic related symptoms. No acute events overnight. No CP or SOB. Intake & Output 08/06/18 08/07/18 08/08/18 08/09/18 23:59 23:59 23:59 23:59 Intake Total 1885 1880 1512 500 Output Total 750 475 600 Balance 1135 1405 912 500 Last Vital Signs Temp Pulse Resp BP Pulse Ox 97.7 F 60 18 104/50 L 95 08/09/18 06:00 08/09/18 09:00 08/09/18 09:00 08/09/18 09:00 08/09/18 09:00 Active Medications Albuterol Sulfate (Ventolin Hfa Inhaler -) 2 puff IH Q8H PRN PRN Reason: SHORTNESS OF BREATH Albuterol/Ipratropium (Duoneb -) 1 amp NEB RTID [facility] Last Admin: 08/09/18 07:20 Dose: 1 amp Budesonide/Formoterol Fumarate (Symbicort 160/4.5mcg -) 2 puff IH BID [facility] Last Admin: 08/09/18 09:07 Dose: 2 puff Carvedilol (Coreg -) 3.125 mg PO BID [facility] Last Admin: 08/09/18 09:16 Dose: Not Given Escitalopram Oxalate (Lexapro -) 20 mg PO [facility] Last Admin: 08/08/18 22:15 Dose: 20 mg Lactated Ringer's (Lactated Ringers Solution) 1,000 ml in 1,000 mls @ 42 mls/ hr IV ASDIR [facility] Last Admin: 08/08/18 12:00 Dose: 42 mls/hr Insulin Aspart (Novolog Vial Sliding Scale -) 1 vial SQ [facility]; Protocol Last Admin: 08/09/18 06:36 Dose: Not Given Melatonin (Melatonin) 10 mg PO HS PRN PRN Reason: INSOMNIA Last Admin: 08/08/18 22:15 Dose: 10 mg Rosuvastatin Calcium (Crestor -) 20 mg PO HS [facility] Last Admin: 08/08/18 22:15 Dose: 20 mg Sacubitril/Valsartan (Entresto 24 Mg-26 Mg Tablet) 1 tab PO [facility] Last Admin: 08/08/18 22:16 Dose: 1 tab Constitutional: Yes: NAD Eyes: Yes: WNL HENT: Yes: WNL Neck: Yes: WNL Cardiovascular: Yes: Regular Rate and Rhythm, S1, S2 Respiratory: Yes: scattered rhonchi, Diminished at the bases Gastrointestinal: Yes: Normal Bowel Sounds, Soft Extremities: Yes: WNL Edema: No Labs: Laboratory Results - last 24 hr 08/08/18 08/08/18 08/08/18 12:08 17:24 21:15 WBC RBC Hgb Hct MCV MCH MCHC RDW Plt Count MPV Absolute Neuts (auto) Neutrophils % Lymphocytes % Monocytes % Eosinophils % Basophils % Nucleated RBC % Sodium Potassium Chloride Carbon Dioxide Anion Gap BUN Creatinine Creat Clearance w eGFR POC Glucometer 153 151 199 Random Glucose Calcium Phosphorus Magnesium 08/09/18 08/09/18 08/09/18 05:52 07:50 07:50 WBC 4.3 RBC 3.79 L Hgb 10.6 L Hct 30.9 L MCV 81.7 MCH 27.9 MCHC 34.1 RDW 16.6 H Plt Count 110 L MPV 7.5 Absolute Neuts (auto) 3.0 Neutrophils % 69.8 Lymphocytes % 19.2 Monocytes % 8.6 Eosinophils % 1.5 Basophils % 0.9 Nucleated RBC % 0 Sodium 141 Potassium 4.6 Chloride 109 H Carbon Dioxide 26 Anion Gap 6 L BUN 14 Creatinine 1.3 Creat Clearance w eGFR 53.67 POC Glucometer 152 Random Glucose 153 H Calcium 8.8 Phosphorus 3.8 Magnesium 2.0 Problem List - Problems (1) Hypotension Code(s): I95.9 - HYPOTENSION, UNSPECIFIED (2) Hypotension Code(s): I95.9 - HYPOTENSION, UNSPECIFIED (3) Failure to thrive in adult Code(s): R62.7 - ADULT FAILURE TO THRIVE (4) Generalized weakness Code(s): R53.1 - WEAKNESS (5) Acute on chronic renal insufficiency Code(s): N28.9 - DISORDER OF KIDNEY AND URETER, UNSPECIFIED; N18.9 - CHRONIC KIDNEY DISEASE, UNSPECIFIED (6) Anemia Code(s): D64.9 - ANEMIA, UNSPECIFIED Qualifiers: Anemia type: due to chronic kidney disease Chronic kidney disease stage: stage 3 (moderate) Qualified Code(s): N18.3 - Chronic kidney disease, stage 3 (moderate); D63.1 - Anemia in chronic kidney disease; D63.1 - Anemia in chronic kidney disease (7) CAD (coronary artery disease) Code(s): I25.10 - ATHSCL HEART DISEASE OF [place] CORONARY ARTERY W/O ANG PCTRS Qualifiers: Coronary Disease-Associated Artery/Lesion type: [place] artery [place] vs. transplanted heart: [place] heart Associated angina: without angina Qualified Code(s): I25.10 - Atherosclerotic heart disease of [place] coronary artery without angina pectoris (8) CKD (chronic kidney disease) Code(s): N18.9 - CHRONIC KIDNEY DISEASE, UNSPECIFIED Qualifiers: Chronic kidney disease stage: stage 3 (moderate) Qualified Code(s): N18.3 - Chronic kidney disease, stage 3 (moderate) (9) COPD (chronic obstructive pulmonary disease) Code(s): J44.9 - CHRONIC OBSTRUCTIVE PULMONARY DISEASE, UNSPECIFIED Qualifiers: COPD type: unspecified COPD Qualified Code(s): J44.9 - Chronic obstructive pulmonary disease, unspecified (10) Congestive heart failure Code(s): I50.9 - HEART FAILURE, UNSPECIFIED (11) Hx of CABG Code(s): Z95.1 - PRESENCE OF AORTOCORONARY BYPASS GRAFT (12) PVD (peripheral vascular disease) Code(s): I73.9 - PERIPHERAL VASCULAR DISEASE, UNSPECIFIED Assessment/Plan IMP COPD HYPOTENSION CORRECTED CHF SEVERE LV DYSFUNCTION S/P AICD ASHD S/P CABG PVD IDDM WEAKNESS H/O PARTIAL GASTRECTOMY CKD UTI PLAN SYMBICORT BID INHALED BRONCHODILATORS O2 MONITOR BP ,ORTHOSTATICS PO TOLERATED DR KEENE
[2018-08-09] MEDS ORDERED: ETOMIDATE 20 MG/10 ML AMPUL IVPUSH ONE (11:37)
--- NOTE | 2018-08-09 11:37 | PN ---
Progress Note, Physician History of Present Illness: EGD show no evidence of stricture in the esophagus, 4cm hiatal hernia, gastritis , likely bile related, in the gastric remnant. Possible fundoplication on retroflexion with Post-billroth II anatomy and normal afferent and efferent limbs - Current Medication List Current Medications: Active Medications Albuterol Sulfate (Ventolin Hfa Inhaler -) 2 puff IH Q8H PRN PRN Reason: SHORTNESS OF BREATH Albuterol/Ipratropium (Duoneb -) 1 amp NEB RTID [facility] Last Admin: 08/09/18 07:20 Dose: 1 amp Budesonide/Formoterol Fumarate (Symbicort 160/4.5mcg -) 2 puff IH BID [facility] Last Admin: 08/09/18 09:07 Dose: 2 puff Carvedilol (Coreg -) 3.125 mg PO BID [facility] Last Admin: 08/09/18 09:16 Dose: Not Given Escitalopram Oxalate (Lexapro -) 20 mg PO HS [facility] Last Admin: 08/08/18 22:15 Dose: 20 mg Lactated Ringer's (Lactated Ringers Solution) 1,000 ml in 1,000 mls @ 42 mls/ hr IV ASDIR [facility] Last Admin: 08/08/18 12:00 Dose: 42 mls/hr Insulin Aspart (Novolog Vial Sliding Scale -) 1 vial SQ ACHS [facility]; Protocol Last Admin: 08/09/18 11:27 Dose: Not Given Melatonin (Melatonin) 10 mg PO HS PRN PRN Reason: INSOMNIA Last Admin: 08/08/18 22:15 Dose: 10 mg Rosuvastatin Calcium (Crestor -) 20 mg PO HS [facility] Last Admin: 08/08/18 22:15 Dose: 20 mg Sacubitril/Valsartan (Entresto 24 Mg-26 Mg Tablet) 1 tab PO HS [facility] Last Admin: 08/08/18 22:16 Dose: 1 tab - Objective Vital Signs: Vital Signs Temperature 97.7 F 08/09/18 06:00 Pulse Rate 60 08/09/18 09:00 Respiratory Rate 18 08/09/18 09:00 Blood Pressure 104/50 L 08/09/18 09:00 O2 Sat by Pulse Oximetry (%) 95 08/09/18 09:00 Constitutional: Yes: No Distress, Calm, Thin Neck: Yes: Supple Cardiovascular: Yes: Regular Rate and Rhythm Respiratory: Yes: Regular, CTA Bilaterally Gastrointestinal: Yes: Normal Bowel Sounds, Soft Edema: No Labs: CBC, BMP 08/09/18 07:50 08/09/18 07:50 INR, PTT INR 0.99 (0.83-1.09) 08/04/18 06:00 Problem List - Problems (1) Ischemic cardiomyopathy Code(s): I25.5 - ISCHEMIC CARDIOMYOPATHY (2) ICD (implantable cardioverter-defibrillator) in place Code(s): Z95.810 - PRESENCE OF AUTOMATIC (IMPLANTABLE) CARDIAC DEFIBRILLATOR (3) Dysphagia Code(s): R13.10 - DYSPHAGIA, UNSPECIFIED Qualifiers: Dysphagia type: esophageal phase Qualified Code(s): R13.10 - Dysphagia, unspecified (4) Acute on chronic renal insufficiency Code(s): N28.9 - DISORDER OF KIDNEY AND URETER, UNSPECIFIED; N18.9 - CHRONIC KIDNEY DISEASE, UNSPECIFIED (5) CAD (coronary artery disease) Code(s): I25.10 - ATHSCL HEART DISEASE OF [place] CORONARY ARTERY W/O ANG PCTRS Qualifiers: Coronary Disease-Associated Artery/Lesion type: [place] artery [place] vs. transplanted heart: [place] heart Associated angina: without angina Qualified Code(s): I25.10 - Atherosclerotic heart disease of [place] coronary artery without angina pectoris (6) COPD (chronic obstructive pulmonary disease) Code(s): J44.9 - CHRONIC OBSTRUCTIVE PULMONARY DISEASE, UNSPECIFIED Qualifiers: COPD type: unspecified COPD Qualified Code(s): J44.9 - Chronic obstructive pulmonary disease, unspecified (7) History of percutaneous coronary intervention Code(s): Z98.890 - OTHER SPECIFIED POSTPROCEDURAL STATES (8) Hx of CABG Code(s): Z95.1 - PRESENCE OF AORTOCORONARY BYPASS GRAFT (9) Hyperlipidemia Code(s): E78.5 - HYPERLIPIDEMIA, UNSPECIFIED Qualifiers: Hyperlipidemia type: pure hypercholesterolemia Qualified Code(s): E78.00 - Pure hypercholesterolemia, unspecified; E78.0 - Pure hypercholesterolemia (10) PVD (peripheral vascular disease) Code(s): I73.9 - PERIPHERAL VASCULAR DISEASE, UNSPECIFIED (11) Gastritis determined by endoscopy Code(s): K29.70 - GASTRITIS, UNSPECIFIED, WITHOUT BLEEDING Assessment/Plan 09/24/2017 R&LHc: Dilated ischemia cardiomyopathy, occluded SVG->OM1, patent LOPEZ->LAD, RA->OM2 08/04/2018 Echo: Normal LV size with moderate decreased LVEF mild TR, mild VELMA, mild-mod MR 1. Bile acid gastritis, hiatal hernia, h/o partial gastrectomy 3. CAD s/p PCI/stent, CABG, angina pectoris 4. Moderate LV systolic dysfunction with class 2 NYHA classification failure 5. s/p Medtronic ICD for primary prevention 6. HTN/HCVD 7. Acute on CKD improved with hydration 8. Type 2 DM 9. Hyperlipidemia 9. COPD 10. PAD s/p FOOTBALL SCOUT, carotid artery disease 11. Dizziness with orthostasis P:1. Advance diet as tolerated, patient should eat smaller, more frequent meals and remain upright for one hour afterwards, await biopsies, ff abdominal pain, can consider cholestyramine for bile gastritis 2. Resume Plavix 75 qd once post-biopsy hemostasis achieved 3. Continue Crestor 20 qd, carvedilol 3.125 bid and decrease Entresto 24/26 qd, agree with d/c Lasix 20 qd given orthostasis 4. BD, O2 as needed, DVT prophylaxis
--- NOTE | 2018-08-09 12:30 | PN ---
Progress Note (short form) - Note Progress Note: Brief EGD report - see paper report in chart for full details No evidence of stricture in the esophagus 4cm hiatal hernia Gastritis, likely bile related, in the gastric remnant Possible fundoplication on retroflexion Post-billroth II anatomy Normal afferent and efferent limbs Advance diet as tolerated, patient should eat smaller, more frequent meals and remain upright for one hour afterwards Await biopsies If abdominal pain, can consider cholestyramine for bile gastritis
--- NOTE | 2018-08-09 12:39 | PN ---
Progress Note, SOLUTION DIRECTOR - Note Progress Note: Selected Entries 08/06/18 08/06/18 08/06/18 02:00 06:00 10:23 Temperature 98.0 F 97.9 F 98 F Laboratory Tests 08/06/18 06:40 WBC 5.1 Selected Entries 08/06/18 08/07/18 08/07/18 18:20 02:00 07:00 Breakfast Lunch Supper 75% Temperature 98.1 F 98.1 F 08/07/18 08/07/18 08/07/18 09:00 10:07 15:00 Breakfast 100% Lunch Supper Temperature 97.8 F 98.1 F 08/07/18 08/07/18 08/08/18 17:50 18:00 01:56 Breakfast Lunch Supper 75% Temperature 98.2 F 98.1 F 08/08/18 08/08/18 08/08/18 07:14 08:55 10:33 Breakfast 75% Lunch Supper Temperature 98.2 F 98.6 F 08/08/18 08/08/18 08/08/18 14:41 17:50 18:00 Breakfast Lunch 75% Supper 100% Temperature 97.7 F 98.2 F 08/09/18 08/09/18 08/09/18 02:00 06:00 11:08 Breakfast NPO Lunch Supper Temperature 98.1 F 97.7 F 08/09/18 12:05 Breakfast Lunch Supper Temperature 96.7 F L Laboratory Tests 08/08/18 08/09/18 07:40 07:50 WBC 4.9 4.3 Standard Ba Swallow with normal passage of Barium pill. EGD noted Pt tolerating liquids without difficulty. Upgrade diet per GI, as tolerated. Consider regular chopped diet, thin liquid, OOB for meals, and after meals. Alternate solida with liquids and complete meal with liquids. GERD precautions-minimize caffeine, carbonation,citrus, tomatoes,chocolate, mints.
--- NOTE | 2018-08-09 13:06 | PN ---
Physical Exam: SUBJECTIVE: Patient seen and examined at bedside. Continues to c/o dizziness, otherwise feeling well. OBJECTIVE: Vital Signs Period Temp Pulse Resp BP Sys/Garcia Pulse Ox Last 24 Hr 96.7 F-98.2 F 56-81 16-20 79-147/34-82 95-100 GENERAL: A&Ox3, NAD HEENT: NC/AT, PERRLA, EOMI, MMM NECK: Trachea midline, full range of motion, supple. LUNGS: CTA b/l HEART: RRR no m/r/g ABDOMEN: +bs, soft, NT, ND EXTREMITIES: 2+ pulses, warm, well-perfused, no edema. 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 SKIN: Warm, dry, normal turgor, no rashes or lesions noted Laboratory Results - last 24 hr 08/08/18 08/08/18 08/09/18 17:24 21:15 05:52 WBC RBC Hgb Hct MCV MCH MCHC RDW Plt Count MPV Absolute Neuts (auto) Neutrophils % Lymphocytes % Monocytes % Eosinophils % Basophils % Nucleated RBC % Sodium Potassium Chloride Carbon Dioxide Anion Gap BUN Creatinine Creat Clearance w eGFR POC Glucometer 151 199 152 Random Glucose Calcium Phosphorus Magnesium 08/09/18 08/09/18 07:50 07:50 WBC 4.3 RBC 3.79 L Hgb 10.6 L Hct 30.9 L MCV 81.7 MCH 27.9 MCHC 34.1 RDW 16.6 H Plt Count 110 L MPV 7.5 Absolute Neuts (auto) 3.0 Neutrophils % 69.8 Lymphocytes % 19.2 Monocytes % 8.6 Eosinophils % 1.5 Basophils % 0.9 Nucleated RBC % 0 Sodium 141 Potassium 4.6 Chloride 109 H Carbon Dioxide 26 Anion Gap 6 L BUN 14 Creatinine 1.3 Creat Clearance w eGFR 53.67 POC Glucometer Random Glucose 153 H Calcium 8.8 Phosphorus 3.8 Magnesium 2.0 Active Medications Generic Name Dose Route Start Last Admin Trade Name Freq PRN Reason Stop Dose Admin Albuterol Sulfate 2 puff 08/03/18 21:42 Ventolin Hfa Inhaler - IH Q8H PRN SHORTNESS OF BREATH Albuterol/Ipratropium 1 amp 08/05/18 14:00 08/09/18 07:20 Duoneb - NEB 1 amp RTID [facility] Administration Budesonide/Formoterol Fumarate 2 puff 08/03/18 22:00 08/09/18 09:07 Symbicort 160/4.5mcg - IH 2 puff BID [facility] Administration Carvedilol 3.125 mg 08/03/18 22:00 08/09/18 09:16 Coreg - PO Not Given BID [facility] Escitalopram Oxalate 20 mg 08/03/18 22:00 08/08/18 22:15 Lexapro - PO 20 mg HS [facility] Administration Lactated Ringer's 1,000 ml in 1,000 mls @ 42 mls/hr 08/04/18 12:30 08/08/18 12:00 Lactated Ringers Solution IV 42 mls/hr ASDIR [facility] Administration Insulin Aspart 1 vial 08/03/18 22:00 08/09/18 11:27 Novolog Vial Sliding Scale - SQ Not Given ACHS [facility] Protocol Melatonin 10 mg 08/03/18 19:02 08/08/18 22:15 Melatonin PO 10 mg HS PRN Administration INSOMNIA Rosuvastatin Calcium 20 mg 08/03/18 22:00 08/08/18 22:15 Crestor - PO 20 mg HS [facility] Administration Sacubitril/Valsartan 1 tab 08/08/18 22:00 08/08/18 22:16 Entresto 24 Mg-26 Mg Tablet PO 1 tab HS [facility] Administration ASSESSMENT/PLAN: 78 y/o M w/ PMHx urethral stricture c/b fungemia s/p cystoscopy 07/24/18 w/ Dr. Geetha Limon, systolic CHF (EF 25% on most recent echo), achalasia, CAD s/p stenting, HTN, DM sent to the ED for evaluation of generalized weakness and dizziness. #Hypotension, Dizziness -still significantly orthostatic -giving gentle hydration, will follow orthostatic VS -echo without quantitative data -orthostasis is not resolving, may require discharge to SNF #chronic dysphagia w/ achalasia -speech/swallow following -MBS showing esophageal narrowing with stasis of barium pill -EGD today, results/recs per GI noted: "No evidence of stricture in the esophagus 4cm hiatal hernia Gastritis, likely bile related, in the gastric remnant Possible fundoplication on retroflexion Post-billroth II anatomy Normal afferent and efferent limbs Advance diet as tolerated, patient should eat smaller, more frequent meals and remain upright for one hour afterwards Await biopsies If abdominal pain, can consider cholestyramine for bile gastritis" #sCHF w/ AICD + HTN -last documented echo w/ EF 29% -repeat echo does not quantify EF -holding Lasix given orthostasis -cont Coreg and Entresto per cardiology given survival benefit #COPD -stable -resume home inhalers -pulm following #DM -BGM ACHS -ISS ACHS #FEN -LR @ 42 -monitor lytes, replete PRN -dysphagia chopped, awaiting further recs per S/S #PPx -DVT: SCDs -GI: not indicated #Dispo -monitor on med/surg Visit type - Emergency Visit Emergency Visit: No - New Patient This patient is new to me today: No - Critical Care Critical Care patient: No
--- NOTE | 2018-08-09 16:05 | PN ---
Teaching Attending Note Name of Resident: Dhruv Najera ATTENDING PHYSICIAN STATEMENT I saw and evaluated the patient. I reviewed the resident's note and discussed the case with the resident. I agree with the resident's findings and plan as documented. SUBJECTIVE: Still reports lightheadedness on standing and walking. No dysuria/ hematuria/fever/chills. No headache/visual disturbance. No limb numbness/ weakness. No abdominal pain/nausea/vomiting. OBJECTIVE: Afebrile, still orthostatic. SBP drop > 30mmHg on standing Last Vital Signs Temp Pulse Resp BP Pulse Ox 98.1 F 57 L 18 145/63 99 08/09/18 15:17 08/09/18 15:17 08/09/18 15:17 08/09/18 15:17 08/09/18 12:38 HEENT - Normocephalic, [place] Heart - S1, S2, RRR Lungs - clear to auscultation Abdomen - Soft, non-tender. Bowel Sounds normal. Extremities - no edema, no calf tenderness. Neuro - AAO x 3. EOMI, No nystagmus. Tone/Power normal all 4 extremities. Laboratory Results - last 24 hr 08/08/18 08/08/18 08/09/18 17:24 21:15 05:52 WBC RBC Hgb Hct MCV MCH MCHC RDW Plt Count MPV Absolute Neuts (auto) Neutrophils % Lymphocytes % Monocytes % Eosinophils % Basophils % Nucleated RBC % Sodium Potassium Chloride Carbon Dioxide Anion Gap BUN Creatinine Creat Clearance w eGFR POC Glucometer 151 199 152 Random Glucose Calcium Phosphorus Magnesium 08/09/18 08/09/18 07:50 07:50 WBC 4.3 RBC 3.79 L Hgb 10.6 L Hct 30.9 L MCV 81.7 MCH 27.9 MCHC 34.1 RDW 16.6 H Plt Count 110 L MPV 7.5 Absolute Neuts (auto) 3.0 Neutrophils % 69.8 Lymphocytes % 19.2 Monocytes % 8.6 Eosinophils % 1.5 Basophils % 0.9 Nucleated RBC % 0 Sodium 141 Potassium 4.6 Chloride 109 H Carbon Dioxide 26 Anion Gap 6 L BUN 14 Creatinine 1.3 Creat Clearance w eGFR 53.67 POC Glucometer Random Glucose 153 H Calcium 8.8 Phosphorus 3.8 Magnesium 2.0 Current Medications Generic Name Dose Route Start Last Admin Trade Name Freq PRN Reason Stop Dose Admin Albuterol Sulfate 2 puff 08/03/18 21:42 Ventolin Hfa Inhaler - IH Q8H PRN SHORTNESS OF BREATH Albuterol/Ipratropium 1 amp 08/05/18 14:00 08/09/18 13:30 Duoneb - NEB 1 amp RTID [facility] Administration Budesonide/Formoterol Fumarate 2 puff 08/03/18 22:00 08/09/18 09:07 Symbicort 160/4.5mcg - IH 2 puff BID [facility] Administration Carvedilol 3.125 mg 08/03/18 22:00 08/09/18 09:16 Coreg - PO Not Given BID [facility] Escitalopram Oxalate 20 mg 08/03/18 22:00 08/08/18 22:15 Lexapro - PO 20 mg HS [facility] Administration Lactated Ringer's 1,000 ml in 1,000 mls @ 42 mls/hr 08/04/18 12:30 08/08/18 12:00 Lactated Ringers Solution IV 42 mls/hr ASDIR [facility] Administration Insulin Aspart 1 vial 08/03/18 22:00 08/09/18 11:27 Novolog Vial Sliding Scale - SQ Not Given ACHS [facility] Protocol Melatonin 10 mg 08/03/18 19:02 08/08/18 22:15 Melatonin PO 10 mg HS PRN Administration INSOMNIA Rosuvastatin Calcium 20 mg 08/03/18 22:00 08/08/18 22:15 Crestor - PO 20 mg HS [facility] Administration Sacubitril/Valsartan 1 tab 08/08/18 22:00 08/08/18 22:16 Entresto 24 Mg-26 Mg Tablet PO 1 tab HS [facility] Administration ASSESSMENT AND PLAN: 78 year old male with history of Chronic Systolic CHF (EF 25-30%), s/p AICD, CAD s/p CABG, PAD s/p Fem-Pop bypass, DM 2, BPH, 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 1. Dizziness/Lightheadedness secondary to Orthostatic Hypotension secondary to anti-hypertensive polypharmacy Urine Cx negative - empiric Ceftriaxone discontinued. On Gentle IV hydration for several days - will discontinue. Repeat Orthostatic vitals consistently still demonstrate a significant drop on standing BPs. Discussed with Cardiology re: concerns of orthostasis and lightheadedness - as per Cardiology, benefits of BB and DANIELLE/ARB outweight risk of borderline BP on standing hence both recommended by Cardiology. Patient was explained that risk of lightheadedness and fall at home were high and that he may benefit from period of Rehab at SNF - he will consider. 2. Chronic Dysphagia secondary to Achalasia s/p partial gastrectomy MBS shows possible stricture. Barium Swallow shows contraction of distal thoracic esophagus with spasm luminal narrowing at GEJ s/p EGD 08/09/18 - No stricture, Hiatal hernia, Gastritis, post-Bilroth II anatomy. Eval by Speech therapy - recommend Chopped Diabetic Diet/Thin liquids. Will start PPI for Gastritis. 3. Chronic Systolic CHF with EF 25% s/p AICD repeat Echo - moderately reduced EF with global hypokinesis and moderate MR No evidence of acute decompensation. Lasix held currently due to symptomatic orthostatic hypotension. Cardiology consulted for further guidance regarding orthostasis - agrees with holding Lasix and recommends continuing Coreg and Entresto. 4. COPD - no evidence of acute decompensation. Continue Symbicort, Albuterol. 5. DM 2 - maintain on Novolog sliding scale. 6. PAD s/p fem-pop bypass - resume Plavix, Statin. 7. HTN - Continue Coreg and Subcutril/Valsartan (resumed by Cardiology). 8. HLD - Contnue Crestor 9. PUD s/p Partial Gastrectomy - resume Pantoprazole. 10. CAD s/p CABG - normally on Plavix, BB, DANIELLE, Statin. Continue. 11. BPH - Continue Flomax 12. Depression - stable. Continue Lexapro. DVT Px - Heparin SQ Dispo - still orthostatic and lightheaded. Cardiology wants to continue BP/CAD/ CHF meds. Patient considering Rehab/SNF
[2018-08-09] MEDS: PANTOPRAZOLE 40 MG TABLET (FP) PO SCH (16:51)
[2018-08-09] MEDS: ROSUVASTATIN CA 20 MG TABLET (FP) PO SCH (22:19)
[2018-08-09] MEDS: ESCITALOPRAM OXALATE 20 MG TABLET (FP) PO SCH (22:19)
[2018-08-09] MEDS: MELATONIN 5 MG TABLETS PO PRN (22:19)
[2018-08-09] MEDS: HEPARIN NA (PORCINE) 5,000 UNITS/ML 1ML VIAL SQ SCH (22:20)
[2018-08-09] MEDS: SACUBITRIL/VALSARTAN 24 MG-26 MG TABLET PO SCH (22:20)
[2018-08-10] MEDS: INSULIN SLIDING SCALE (NOVOLOG) 1 VIAL SQ SCH ×3 (06:44→17:15)
[2018-08-10] MEDS: HEPARIN NA (PORCINE) 5,000 UNITS/ML 1ML VIAL SQ SCH ×2 (06:44→15:22)
[2018-08-10 07:21] LABS: BASO % 0.6 % (0-2.0); EOS % 1.4 % (0-4.5); HEMATOCRIT 31.1 % (35.4-49); HEMOGLOBIN 10.7 GM/dL (11.7-16.9); LYMPH % 19.1 % (8-40); MCH 28.6 pg (25.7-33.7); MCHC 34.5 g/dl (32.0-35.9); MEAN CELL VOLUME 82.7 fl (80-96); MONO % 9.9 % (3.8-10.2); PLATELET COUNT 106 K/MM3 (134-434); RBC 3.76 M/mm3 (4.00-5.60); RDW 16.8 % (11.9-15.9); WHITE BLOOD COUNT 3.9 K/mm3 (4.0-10.0)
[2018-08-10 08:52] LABS: ANION GAP 7 MMOL/L (8-16); BLOOD UREA NITROGEN 17 mg/dL (7-18); CALCIUM 8.5 mg/dL (8.5-10.1); CHLORIDE 109 mmol/L (98-107); CO2 22 mmol/L (21-32); CREATININE 1.3 mg/dL (0.55-1.3); GLUCOSE,RANDOM 152 mg/dL (74-106); MAGNESIUM 2.1 mg/dL (1.8-2.4); PHOSPHOROUS 3.5 mg/dL (2.5-4.9); POTASSIUM 4.1 mmol/L (3.5-5.1); SODIUM 138 mmol/L (136-145)
[2018-08-10] MEDS: ALBUTEROL SO4 2.5/IPRATROPIUM 0.5 INH SOL 3 ML VIAL.NEB. NEB SCH (08:54)
[2018-08-10] MEDS ORDERED: CLOPIDOGREL BISULFATE 75 MG TABLET (FP) PO SCH (10:00)
[2018-08-10] MEDS: CARVEDILOL 3.125 MG TABLET (FP) PO SCH (10:55)
[2018-08-10] MEDS: PANTOPRAZOLE 40 MG TABLET (FP) PO SCH (10:55)
[2018-08-10] MEDS: BUDESONIDE/FORMETEROL FUMARATE 160/4.5 mcg INHALER IH SCH (10:56)
--- NOTE | 2018-08-10 11:49 | PN ---
Progress Note, Physician History of Present Illness: pulmonary alert,no distress,remains orthostatic - Current Medication List Current Medications: Active Medications Albuterol Sulfate (Ventolin Hfa Inhaler -) 2 puff IH Q8H PRN PRN Reason: SHORTNESS OF BREATH Albuterol/Ipratropium (Duoneb -) 1 amp NEB RTID [facility] Last Admin: 08/10/18 08:54 Dose: Not Given Budesonide/Formoterol Fumarate (Symbicort 160/4.5mcg -) 2 puff IH BID [facility] Last Admin: 08/10/18 10:56 Dose: 2 puff Carvedilol (Coreg -) 3.125 mg PO BID [facility] Last Admin: 08/10/18 10:55 Dose: 3.125 mg Clopidogrel Bisulfate (Plavix -) 75 mg PO DAILY [facility] Last Admin: 08/10/18 10:55 Dose: 75 mg Escitalopram Oxalate (Lexapro -) 20 mg PO [facility] Last Admin: 08/09/18 22:19 Dose: 20 mg Heparin Sodium (Porcine) (Heparin -) 5,000 unit SQ TID [facility] Last Admin: 08/10/18 06:44 Dose: Not Given Insulin Aspart (Novolog Vial Sliding Scale -) 1 vial SQ [facility]; Protocol Last Admin: 08/10/18 06:44 Dose: Not Given Melatonin (Melatonin) 10 mg PO HS PRN PRN Reason: INSOMNIA Last Admin: 08/09/18 22:19 Dose: 10 mg Pantoprazole Sodium (Protonix -) 40 mg PO DAILY [facility] Last Admin: 08/10/18 10:55 Dose: 40 mg Rosuvastatin Calcium (Crestor -) 20 mg PO [facility] Last Admin: 08/09/18 22:19 Dose: 20 mg Sacubitril/Valsartan (Entresto 24 Mg-26 Mg Tablet) 1 tab PO [facility] Last Admin: 08/09/18 22:20 Dose: 1 tab - Objective Vital Signs: Vital Signs Temperature 98.1 F 08/10/18 06:00 Pulse Rate 68 08/10/18 08:20 Respiratory Rate 20 08/10/18 06:00 Blood Pressure 132/55 L 08/10/18 08:20 O2 Sat by Pulse Oximetry (%) 99 08/09/18 21:00 Constitutional: Yes: Well Nourished, Calm Eyes: Yes: WNL HENT: Yes: WNL Neck: Yes: WNL Cardiovascular: Yes: Regular Rate and Rhythm, S1, S2 Respiratory: Yes: Rhonchi (few rhonchi) Gastrointestinal: Yes: Normal Bowel Sounds, Soft Extremities: Yes: WNL Edema: No Labs: CBC, BMP 08/10/18 06:30 08/10/18 06:30 INR, PTT INR 0.99 (0.83-1.09) 08/04/18 06:00 Problem List - Problems (1) Hypotension Code(s): I95.9 - HYPOTENSION, UNSPECIFIED (2) Hypotension Code(s): I95.9 - HYPOTENSION, UNSPECIFIED (3) Failure to thrive in adult Code(s): R62.7 - ADULT FAILURE TO THRIVE (4) Generalized weakness Code(s): R53.1 - WEAKNESS (5) Acute on chronic renal insufficiency Code(s): N28.9 - DISORDER OF KIDNEY AND URETER, UNSPECIFIED; N18.9 - CHRONIC KIDNEY DISEASE, UNSPECIFIED (6) Anemia Code(s): D64.9 - ANEMIA, UNSPECIFIED Qualifiers: Anemia type: due to chronic kidney disease Chronic kidney disease stage: stage 3 (moderate) Qualified Code(s): N18.3 - Chronic kidney disease, stage 3 (moderate); D63.1 - Anemia in chronic kidney disease; D63.1 - Anemia in chronic kidney disease (7) CAD (coronary artery disease) Code(s): I25.10 - ATHSCL HEART DISEASE OF [place] CORONARY ARTERY W/O ANG PCTRS Qualifiers: Coronary Disease-Associated Artery/Lesion type: [place] artery [place] vs. transplanted heart: [place] heart Associated angina: without angina Qualified Code(s): I25.10 - Atherosclerotic heart disease of [place] coronary artery without angina pectoris (8) CKD (chronic kidney disease) Code(s): N18.9 - CHRONIC KIDNEY DISEASE, UNSPECIFIED Qualifiers: Chronic kidney disease stage: stage 3 (moderate) Qualified Code(s): N18.3 - Chronic kidney disease, stage 3 (moderate) (9) COPD (chronic obstructive pulmonary disease) Code(s): J44.9 - CHRONIC OBSTRUCTIVE PULMONARY DISEASE, UNSPECIFIED Qualifiers: COPD type: unspecified COPD Qualified Code(s): J44.9 - Chronic obstructive pulmonary disease, unspecified (10) Congestive heart failure Code(s): I50.9 - HEART FAILURE, UNSPECIFIED (11) Hx of CABG Code(s): Z95.1 - PRESENCE OF AORTOCORONARY BYPASS GRAFT (12) PVD (peripheral vascular disease) Code(s): I73.9 - PERIPHERAL VASCULAR DISEASE, UNSPECIFIED Assessment/Plan IMP COPD ORTHOSTATIC HYPOTENSION CHF SEVERE LV DYSFUNCTION S/P AICD ASHD S/P CABG PVD IDDM WEAKNESS H/O PARTIAL GASTRECTOMY CKD UTI PLAN MONITOR BPS INHALED BRONCHODILATORS O2 MONITOR BP ,ORTHOSTATICS DR DELVALLE Problem List - Problems (1) Hypotension Code(s): I95.9 - HYPOTENSION, UNSPECIFIED (2) Hypotension Code(s): I95.9 - HYPOTENSION, UNSPECIFIED (3) Failure to thrive in adult Code(s): R62.7 - ADULT FAILURE TO THRIVE (4) Generalized weakness Code(s): R53.1 - WEAKNESS (5) Acute on chronic renal insufficiency Code(s): N28.9 - DISORDER OF KIDNEY AND URETER, UNSPECIFIED; N18.9 - CHRONIC KIDNEY DISEASE, UNSPECIFIED (6) Anemia Code(s): D64.9 - ANEMIA, UNSPECIFIED Qualifiers: Anemia type: due to chronic kidney disease Chronic kidney disease stage: stage 3 (moderate) Qualified Code(s): N18.3 - Chronic kidney disease, stage 3 (moderate); D63.1 - Anemia in chronic kidney disease; D63.1 - Anemia in chronic kidney disease (7) CAD (coronary artery disease) Code(s): I25.10 - ATHSCL HEART DISEASE OF [place] CORONARY ARTERY W/O ANG PCTRS Qualifiers: Coronary Disease-Associated Artery/Lesion type: [place] artery [place] vs. transplanted heart: [place] heart Associated angina: without angina Qualified Code(s): I25.10 - Atherosclerotic heart disease of [place] coronary artery without angina pectoris (8) CKD (chronic kidney disease) Code(s): N18.9 - CHRONIC KIDNEY DISEASE, UNSPECIFIED Qualifiers: Chronic kidney disease stage: stage 3 (moderate) Qualified Code(s): N18.3 - Chronic kidney disease, stage 3 (moderate) (9) COPD (chronic obstructive pulmonary disease) Code(s): J44.9 - CHRONIC OBSTRUCTIVE PULMONARY DISEASE, UNSPECIFIED Qualifiers: COPD type: unspecified COPD Qualified Code(s): J44.9 - Chronic obstructive pulmonary disease, unspecified (10) Congestive heart failure Code(s): I50.9 - HEART FAILURE, UNSPECIFIED (11) Hx of CABG Code(s): Z95.1 - PRESENCE OF AORTOCORONARY BYPASS GRAFT (12) PVD (peripheral vascular disease) Code(s): I73.9 - PERIPHERAL VASCULAR DISEASE, UNSPECIFIED
--- NOTE | 2018-08-10 12:37 | PN ---
Progress Note, SALES LEAD GENERATOR - Note Progress Note: Selected Entries 08/10/18 08/10/18 06:00 10:39 Breakfast 100% Diet Tolerated Well Temperature 98.1 F Laboratory Tests 08/10/18 06:30 WBC 3.9 L Pt on chopped diet,thin liquid. Case reviewed with Rd, for tuna, egg salad, chicken salad.
--- NOTE | 2018-08-10 13:53 | DS ---
Physical Exam: SUBJECTIVE: Patient seen and examined at bedside. Continues to c/o dizziness, otherwise feeling well. OBJECTIVE: Vital Signs Period Temp Pulse Resp BP Sys/Garcia Pulse Ox Last 24 Hr 98 F-98.1 F 57-80 18-20 97-157/47-63 99 PHYSICAL EXAM GENERAL: A&Ox3, NAD HEENT: NC/AT, PERRLA, EOMI, MMM NECK: Trachea midline, full range of motion, supple. LUNGS: CTA b/l HEART: RRR no m/r/g ABDOMEN: +bs, soft, NT, ND EXTREMITIES: 2+ pulses, warm, well-perfused, no edema. NEUROLOGICAL: event security officer, motor, sensory systems w/o focal deficit PSYCH: Normal mood, normal affect. SKIN: Warm, dry, normal turgor, no rashes or lesions noted LABS Laboratory Results - last 24 hr 08/09/18 08/09/18 08/10/18 17:25 22:18 06:30 WBC 3.9 L RBC 3.76 L Hgb 10.7 L Hct 31.1 L MCV 82.7 MCH 28.6 MCHC 34.5 RDW 16.8 H Plt Count 106 L MPV 8.0 Absolute Neuts (auto) 2.7 Neutrophils % 69.0 Lymphocytes % 19.1 Monocytes % 9.9 Eosinophils % 1.4 Basophils % 0.6 Nucleated RBC % 0 Sodium Potassium Chloride Carbon Dioxide Anion Gap BUN Creatinine Creat Clearance w eGFR POC Glucometer 263 253 Random Glucose Calcium Phosphorus Magnesium 08/10/18 08/10/18 08/10/18 06:30 06:43 11:45 WBC RBC Hgb Hct MCV MCH MCHC RDW Plt Count MPV Absolute Neuts (auto) Neutrophils % Lymphocytes % Monocytes % Eosinophils % Basophils % Nucleated RBC % Sodium 138 Potassium 4.1 Chloride 109 H Carbon Dioxide 22 Anion Gap 7 L BUN 17 Creatinine 1.3 Creat Clearance w eGFR 53.67 POC Glucometer 149 184 Random Glucose 152 H Calcium 8.5 Phosphorus 3.5 Magnesium 2.1 HOSPITAL COURSE: Date of Admission:08/06/18 Patient is a 78 y/o M w/ PMHx urethral stricture c/b fungemia s/p cystoscopy w/ Dr. Geetha Limon, systolic CHF (EF 25% on most recent echo), achalasia, CAD s/p stenting, HTN, DM sent to the ED for evaluation of generalized weakness and dizziness and progressive swallowing problems. He was determined not to have recurrent UTI. His swallowing problems were evaluated by speech/swallow and gastroenterology, he underwent MBS and EGD which found hiatal hernia but otherwise no issue requiring interventional procedures. He was recommended to eat small frequent chopped meals in small bites with thin liquids and remain seated upright for at least an hour after eating. He was also noted to be significantly and persistently orthostatic. Cardiology was consulted and medications were optimized but orthostasis and dizziness symptoms persisted. He was discharged to SNF for vestibular rehabilitation with updated medication regimen and outpatient followup with gastroenterology, cardiology, and primary care. Date of Discharge: 08/10/18 Minutes to complete discharge: 40 Discharge Summary Reason For Visit: UTI/WEAKNESS/FAILURE TO THRIVE IN ADULT Current Active Problems Achalasia (Acute) Dysphagia (Acute) Failure to thrive in adult (Acute) Gastritis determined by endoscopy (Acute) Generalized weakness (Acute) Hypotension (Acute) Hypotension (Acute) ICD (implantable cardioverter-defibrillator) in place (Acute) Ischemic cardiomyopathy (Acute) Urinary tract infection (Acute) Condition: Stable - Instructions Diet, Activity, Other Instructions: You were hospitalized for symptoms of dizziness and weakness. You were found not to have a recurrent urinary tract infection. You were seen and assessed by gastroenterology and the speech/swallow service for your swallowing difficulties and underwent swallowing studies and an endoscopy which did not reveal any abnormalities requiring further intervention at this time. We urge you to eat small, chopped frequent meals slowly, with small bites, and remain seated upright for at least one hour after eating to prevent the risk of choking or aspirating food into your lungs. You were also found to have severe drops in blood pressure when rising from a lying to a sitting or standing position which did not correct with IV fluids. This is most likely the cause of your dizziness. You therefore require a stay in a rehabilitation facility to improve your strength and balance and cannot yet safely return home. Additionally, you were seen and evaluated by the cardiology service which optimized your medications. Medication instructions are provided to the rehabilitation facility staff below. If you experience any new or worsening chest pain, shortness of breath, fall or loss of consciousness, choking, fever, chills, flank pain, pain with urination, or any other new or concerning symptom , please return to the Emergency Department MEDICATION AND FOOD INSTRUCTIONS FOR SNF staff Coreg 3.125 PO BID Crestor 20 HS Entresto DAILY Lexapro 20 HS Melatonin 10 HS PRN for insomnia Sliding Scale Insulin ACHS Plavix 75 DAILY Protonix 40 DAILY Symbicort 2 puffs BID Albuterol 2 puffs q8h PRN for shortness of breath/wheezing HOLD home Lasix and Flomax while Pt is orthostatic. Dietary instructions: regular chopped diet, thin liquid, OOB for meals, and after meals. Alternate solids with liquids and complete meal with liquids. GERD precautions-minimize caffeine, carbonation,citrus, tomatoes,chocolate, mints. Patient should be seated upright for all meals and remain seated upright > 1 hour after completing meal. Disposition: DETENTION FACILITY - Home Medications Comprehensive Discharge Medication List: Ambulatory Orders Budesonide/Formeterol Fumarate [SYMBICORT 160/4.5mcg -] 2 inh PO BID 12/24/16 Rosuvastatin Calcium [Crestor] 20 mg PO HS 12/24/16 Carvedilol [Coreg -] 3.125 mg PO BID #60 tablet 07/25/17 Escitalopram Oxalate [Lexapro -] 20 mg PO HS 04/19/18 Albuterol Sulfate [Proair Hfa] 2 puff IH TID PRN 08/03/18 Clopidogrel Bisulfate [Plavix -] 75 mg PO DAILY tablet 08/10/18 Insulin Sliding Scale [Novolog Vial Sliding Scale -] 1 vial SQ ACHS units 08/10 Melatonin 10 mg PO HS PRN tab 08/10/18 Pantoprazole Sodium [Protonix -] 40 mg PO DAILY tablet.ec 08/10/18 Sacubitril/Valsartan [Entresto 24 mg-26 mg Tablet] 1 tab PO HS tablet 08/10/18 This patient is new to me today: No Emergency Visit: No Critical Care patient: No - Discharge Referral Referred to [facility] Yes Physician Referral: Vikash Aguilera MD ([facility])
--- NOTE | 2018-08-10 13:55 | PN ---
Teaching Attending Note Name of Resident: Dhruv Najera ATTENDING PHYSICIAN STATEMENT I saw and evaluated the patient. I reviewed the resident's note and discussed the case with the resident. I agree with the resident's findings and plan as documented. SUBJECTIVE:dizzyness has improved. denies CP, SOB, fever, chills, N/v/C/D, blurred vision OBJECTIVE: Last Vital Signs Temp Pulse Resp BP Pulse Ox 98.1 F 68 20 132/55 L 99 08/10/18 06:00 08/10/18 08:20 08/10/18 06:00 08/10/18 08:20 08/09/18 21:00 General NAD ASSESSMENT AND PLAN: 78 year old male with history of Chronic Systolic CHF (EF 25-30%), s/p AICD, CAD s/p CABG, PAD s/p Fem-Pop bypass, DM 2, BPH, 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 1. Dizziness/Lightheadedness secondary to Orthostatic Hypotension secondary to anti-hypertensive polypharmacy- overall improved. medications reduced to minimize symptoms however benefits outweigh side effect of dizzyness. plan to d/ c to [facility] to work on balance and vestibular therapy. d/c to [facility] with cardio follow up as outpatient
[2018-08-10 15:19] VITALS: BP 119/57; PULSE 73; TEMP 98.4
--- NOTE | 2018-08-10 17:07 | PATH ---
Surgical Pathology Report Patient Name: LIAM QUINTEROS Med. Rec. #: [id number] /Age/Gender: 1940 (Age: 78) / M Account: [id number] Location: [address] [place] [address] Taken: 08/09/2018 Received: 08/09/2018 Reported: 08/10/2018 Physicians: MD Brian Palomo MD Specimen(s) Received STOMACH Clinical History Dysphagia Postoperative diagnosis: Gastritis Final Diagnosis STOMACH, BIOPSY: GASTRIC MUCOSA WITH MILD CHRONIC GASTRITIS. IMMUNOSTAIN FOR H. PYLORI IS NEGATIVE. NEGATIVE FOR INTESTINAL METAPLASIA. Electronically Signed Ulises Mcrae M.D. Gross Description Received in formalin, labeled "biopsy stomach" are 5 olivares, irregular portions of soft tissue ranging from 0.1-0.4 cm. in greatest dimension. The specimens are submitted in toto in one cassette. /08/09/201808/09/2018
== END 2018-08-10 19:05 | DRG 312 ==
LOC: JER 12:19 → JERBED 17:52 → J5S 19:57 → OBSVTOIN 08-06 13:38
PROVIDERS: ADMIT Internal Medicine; ATTEND Internal Medicine
PROC: 0DB68ZX Excision of Stomach, Via Natural or Artificial Opening Endoscopic, Diagnostic (ICD-10-PCS; principal; 2018-08-09 10:30)
DX: I95.1 Orthostatic hypotension (principal); N39.0 Urinary tract infection, site not specified; I50.22 Chronic systolic (congestive) heart failure; I13.0 Hypertensive heart and chronic kidney disease with heart failure and stage 1 through stage 4 chronic kidney disease, or unspecified chronic kidney disease; N17.9 Acute kidney failure, unspecified; R62.7 Adult failure to thrive; N18.3 Chronic kidney disease, stage 3 (moderate); R13.10 Dysphagia, unspecified; J44.9 Chronic obstructive pulmonary disease, unspecified; D63.1 Anemia in chronic kidney disease; E11.22 Type 2 diabetes mellitus with diabetic chronic kidney disease; Z79.4 Long term (current) use of insulin; Z95.5 Presence of coronary angioplasty implant and graft; I25.10 Atherosclerotic heart disease of native coronary artery without angina pectoris; Z95.1 Presence of aortocoronary bypass graft; Z87.891 Personal history of nicotine dependence; Z68.25 Body mass index [BMI] 25.0-25.9, adult; E86.0 Dehydration; K44.9 Diaphragmatic hernia without obstruction or gangrene; Z87.11 Personal history of peptic ulcer disease; K22.0 Achalasia of cardia; Z90.3 Acquired absence of stomach [part of]; K29.70 Gastritis, unspecified, without bleeding; Z95.810 Presence of automatic (implantable) cardiac defibrillator; N40.0 Benign prostatic hyperplasia without lower urinary tract symptoms; I25.5 Ischemic cardiomyopathy; I25.2 Old myocardial infarction; F10.21 Alcohol dependence, in remission; F32.9 Major depressive disorder, single episode, unspecified; I73.9 Peripheral vascular disease, unspecified
CPT/HCPCS: 36415; 71046-TC-FY; 71250-TC; 74220-TC-FY; 74230-TC-FY; 80048; 80053; 81003; 82272; 82550; 82962; 83690; 83735; 83880; 84100; 84484; 85025; 85027; 85610; 85730; 87086; 87389; 87522; 88305-TC; 92611-GN; 93005; 93010; 93306-TC; 94640; 97116-GP; 97162-GP; 99283-25; G0378; J1644; J7030

== ENCOUNTER 2018-09-14 15:27 | Emergency (ER) | payer OTHER, MEDICARE ==
[2018-09-14 15:46] VITALS: BP 94/56; PULSE 89; TEMP 98.8; BMI 25.4
--- NOTE | 2018-09-14 15:48 | PDOC ---
Rapid Medical Evaluation Chief Complaint: Pain Time Seen by Provider: 09/14/18 15:45 Medical Evaluation: Allergies Allergy/AdvReac Type Severity Reaction Status Date / Time pregabalin [From Lyrica] Allergy Severe Verified 09/14/18 15:44 09/14/18 15:45 I have performed a brief in-person evaluation of this patient. The patient presents with a chief complaint of: atraumatic b/l foot pain x2 days Pertinent physical exam findings: BP-94/56. Full sensation to feet. FAROM. I have ordered the following: nothing The patient will proceed to the ED for further evaluation. Discharge Disposition - Diagnosis Foot pain, bilateral - Referrals - Patient Instructions - Post Discharge Activity
[2018-09-14] MEDS ORDERED: IBUPROFEN 400 MG TABLET (FP) PO ONE ×2 (16:34→16:43)
--- NOTE | 2018-09-14 16:43 | PDOC ---
History of Present Illness - General Chief Complaint: Pain Stated Complaint: FOOT PAIN Time Seen by Provider: 09/14/18 15:45 History Source: Patient (b/l feet pain) Past History - Travel Traveled outside of the country in the last 30 days: No Close contact w/someone who was outside of country & ill: No - Past Medical History Allergies/Adverse Reactions: Allergies Allergy/AdvReac Type Severity Reaction Status Date / Time pregabalin [From Lyrica] Allergy Severe Verified 09/14/18 15:44 Home Medications: Ambulatory Orders Budesonide/Formeterol Fumarate [SYMBICORT 160/4.5mcg -] 2 inh PO BID 12/24/16 Rosuvastatin Calcium [Crestor] 20 mg PO HS 12/24/16 Carvedilol [Coreg -] 3.125 mg PO BID #60 tablet 07/25/17 Escitalopram Oxalate [Lexapro -] 20 mg PO HS 04/19/18 Albuterol Sulfate [Proair Hfa] 2 puff IH TID PRN 08/03/18 Clopidogrel Bisulfate [Plavix -] 75 mg PO DAILY tablet 08/10/18 Insulin Sliding Scale [Novolog Vial Sliding Scale -] 1 vial SQ ACHS units 08/10 Melatonin 10 mg PO HS PRN tab 08/10/18 Pantoprazole Sodium [Protonix -] 40 mg PO DAILY tablet.ec 08/10/18 Sacubitril/Valsartan [Entresto 24 mg-26 mg Tablet] 1 tab PO HS tablet 08/10/18 Anemia: Yes Asthma: Yes Cancer: No (family h/o leukemia) Cardiac Disorders: Yes (4 stents) CVA: No COPD: Yes CHF: Yes Dementia: No Diabetes: Yes GI Disorders: Yes (ESOPHAGEAL DYSMOTILITY, GASTRITIS, H-PYLORI) Disorders: Yes (PROSTATE BX) HTN: Yes Hypercholesterolemia: Yes Kidney Stones: No Liver Disease: No Psychiatric Problems: No Seizures: No Thyroid Disease: No Lung CA: No - Surgical History Abdominal Surgery: Yes (PARTIAL GASTRECTOMY,H/O ULCERS EGD BIOPSY 2009,EGD H- PYLORI 2006,COLON 2003) Appendectomy: Yes Cardiac Surgery: Yes (cabg) Cholecystectomy: Yes Lung Surgery: No Neurologic Surgery: No Orthopedic Surgery: No - Family Disease History Family Disease History: Heart Disease: Father - Reproductive History Testicular Surgery: Yes - Immunization History Immunization Up to Date: Yes - Suicide/Smoking/Psychosocial Hx Smoking Status: Yes Smoking History: Never smoked Years of Tobacco Use: 50 Have you smoked in the past 12 months: Yes Number of Cigarettes Smoked Daily: 5 If you are a former smoker, when did you quit?: FEW MONTHS 'Breaking Loose' booklet given: 07/01/18 Hx Alcohol Use: No Drug/Substance Use Hx: No Substance Use Type: Alcohol Hx Substance Use Treatment: No Review of Systems - Review of Systems Constitutional: No: Chills, Fever Neurological: Yes: Paresthesia. No: Numbness, Tremors, Weakness, Unsteady Gait *Physical Exam - Vital Signs Last Vital Signs Temp Pulse Resp BP Pulse Ox 98.8 F 89 18 94/56 L 99 09/14/18 15:44 09/14/18 15:44 09/14/18 15:44 09/14/18 15:44 09/14/18 15:44 - Physical Exam General Appearance: Yes: Nourished Respiratory/Chest: positive: Lungs Clear, Normal Breath Sounds Cardiovascular: positive: Regular Rhythm, Regular Rate, S1, S2 Extremity: positive: Normal Capillary Refill, Normal Inspection, Normal Range of Motion, Tender (mid foot) Neurologic: positive: belting cutter II-XII NML intact, Fully Oriented ED Treatment Course - RADIOLOGY Radiology Studies Ordered: Category Date Time Status FOOT-LEFT [RAD] Stat Radiology 09/14/18 16:34 Ordered FOOT-RIGHT [RAD] Stat Radiology 09/14/18 16:34 Ordered Medical Decision Making - Medical Decision Making 09/14/18 16:40 78y/o M with h/o DM-II b/l feet pain X 2 days, denies trauma, wound, f/c exam FROM but pain in palpating in mid foot , no cellulites, distal pulse intact xray ordered pain control podiatry f/u xray with arthritic changes noted in b/l first metatarsal, pt confirmed hx as she see podiatry for this f/u recommended *DC/Admit/Observation/Transfer Diagnosis at time of Disposition: Foot pain, bilateral - Discharge Dispostion Disposition: HOME Condition at time of disposition: Stable - Referrals Referrals: Vikash Guerra MD [Primary Care Provider] - Fredis Osborn MD [Staff Physician] - - Patient Instructions Additional Instructions: Your xray showed no fractures There are b/l bunions noted you should follow up with your podiatry Please return to the ER if worsening symptoms occurs. - Post Discharge Activity
== END 2018-09-14 17:58 | disposition home or self-care (01) ==
LOC: JERFT 15:27
DX: M13.872 Other specified arthritis, left ankle and foot (principal); M13.871 Other specified arthritis, right ankle and foot; M21.612 Bunion of left foot; M21.611 Bunion of right foot; I25.10 Atherosclerotic heart disease of native coronary artery without angina pectoris; I11.0 Hypertensive heart disease with heart failure; I50.9 Heart failure, unspecified; Z95.1 Presence of aortocoronary bypass graft; Z95.5 Presence of coronary angioplasty implant and graft; E78.00 Pure hypercholesterolemia, unspecified; E11.9 Type 2 diabetes mellitus without complications; Z79.4 Long term (current) use of insulin; D64.9 Anemia, unspecified; Z87.19 Personal history of other diseases of the digestive system
CPT/HCPCS: 73630-TC-LT; 73630-TC-RT-FY; 99281-25

== ENCOUNTER 2018-09-27 15:12 | Inpatient (IN) | payer OTHER, MEDICARE ==
--- NOTE | 2018-09-27 15:49 | PDOC ---
Rapid Medical Evaluation Chief Complaint: Shortness of Breath Time Seen by Provider: 09/27/18 15:43 Medical Evaluation: Allergies Allergy/AdvReac Type Severity Reaction Status Date / Time pregabalin [From Lyrica] Allergy Severe Verified 09/14/18 15:44 09/27/18 15:46 I have performed a brief in-person evaluation of this patient. The patient presents with a chief complaint of: sent in by PCP due to lower BPs and SOB while in office today Pertinent physical exam findings: hyperventilating in respiratory distress. heart RRR. lungs CTAB I have ordered the following: EKG, cardiac profile, CBC, CMP, lactate The patient will proceed to the ED for further evaluation. Discharge Disposition - Diagnosis Acute congestive heart failure, Type 2 diabetes mellitus, Congestive heart failure, COPD (chronic obstructive pulmonary disease), SOB (shortness of breath) - Discharge Dispostion Condition at time of disposition: Stable - Referrals - Patient Instructions - Post Discharge Activity
[2018-09-27 15:52] VITALS: BMI 22.3
[2018-09-27 16:19] LABS: BASO % 1.1 % (0-2.0); HEMOGLOBIN 11.9 GM/dL (11.7-16.9); LYMPH % 13.3 % (8-40); MCH 25.7 pg (25.7-33.7); MCHC 32.2 g/dl (32.0-35.9); MEAN CELL VOLUME 79.6 fl (80-96); MEAN PLT VOLUME 7.8 fl (7.5-11.1); MONO % 4.7 % (3.8-10.2); NEUT % 79.9 % (42.8-82.8); PLATELET COUNT 192 K/MM3 (134-434); RBC 4.65 M/mm3 (4.00-5.60); RDW 16.5 % (11.9-15.9); WHITE BLOOD COUNT 7.6 K/mm3 (4.0-10.0)
--- NOTE | 2018-09-27 16:51 | PDOC ---
History of Present Illness - General Chief Complaint: Shortness of Breath Stated Complaint: WEAKNESS/BP PROBLEM/SENT BY PCP Time Seen by Provider: 09/27/18 15:43 History Source: Patient Exam Limitations: No Limitations - History of Present Illness Initial Comments: 09/27/18 16:45 78 yo male PMHx of Severe Systolic CHF (EF 25-30%), s/p ICD, CAD s/p CABG/PCI ( last PCI 2-3 years ago), PAD s/p b/o fem-pop bypass, LE PCI with stenting, IDDM poorly controlled, Achalasia s/p Heller's myotomy, PUD s/p partial gastrectomy ( Bilroth Type II) years ago, HTN, HLD, COPD (>60 pack year smoking history, stopped smoking 6 months ago) and labile BP presents to the ED with SOB and generalized weakness. Pt states 1 month ago Cardiology stopped his lasix due to low BP. Pt admits to 2 days of generalized weakness and worsening exertional dyspnea which was at its worst today after leaving home to see Urology. Denies F /C/N/V. CP, back pain, changes in bowel or bladder habits. Pt never been intubated, is on 2L O2 at home as needed and neb treatments as needed. Past History - Past Medical History Allergies/Adverse Reactions: Allergies Allergy/AdvReac Type Severity Reaction Status Date / Time pregabalin [From Lyrica] Allergy Severe Verified 09/27/18 15:47 Home Medications: Ambulatory Orders Budesonide/Formeterol Fumarate [SYMBICORT 160/4.5mcg -] 2 inh PO BID 12/24/16 Rosuvastatin Calcium [Crestor] 20 mg PO HS 12/24/16 Carvedilol [Coreg -] 3.125 mg PO BID #60 tablet 07/25/17 Escitalopram Oxalate [Lexapro -] 20 mg PO HS 04/19/18 Albuterol Sulfate [Proair Hfa] 2 puff IH TID PRN 08/03/18 Clopidogrel Bisulfate [Plavix -] 75 mg PO DAILY tablet 08/10/18 Insulin Sliding Scale [Novolog Vial Sliding Scale -] 1 vial SQ ACHS units 08/10 Melatonin 10 mg PO HS PRN tab 08/10/18 Pantoprazole Sodium [Protonix -] 40 mg PO DAILY tablet.ec 08/10/18 Sacubitril/Valsartan [Entresto 24 mg-26 mg Tablet] 1 tab PO HS tablet 08/10/18 Bimatoprost [Lumigan] 1 drop IO DAILY 09/27/18 Insulin Glargine,Hum.rec.anlog [Lantus Solostar PEN (NF)] 50 units SQ HS Montelukast Na [Singulair -] 10 mg PO DAILY 09/28/18 Anemia: Yes Asthma: Yes Cancer: No (family h/o leukemia) Cardiac Disorders: Yes (4 stents) CVA: No COPD: Yes CHF: Yes Dementia: No Diabetes: Yes GI Disorders: Yes (ESOPHAGEAL DYSMOTILITY, GASTRITIS, H-PYLORI) Disorders: Yes (PROSTATE BX) HTN: Yes Hypercholesterolemia: Yes Kidney Stones: No Liver Disease: No Psychiatric Problems: No Seizures: No Thyroid Disease: No Lung CA: No - Surgical History Abdominal Surgery: Yes (PARTIAL GASTRECTOMY,H/O ULCERS EGD BIOPSY 2009,EGD H- PYLORI 2006,COLON 2003) Appendectomy: Yes Cardiac Surgery: Yes (cabg) Cholecystectomy: Yes Lung Surgery: No Neurologic Surgery: No Orthopedic Surgery: No - Family Disease History Family Disease History: Heart Disease: Father - Reproductive History Testicular Surgery: Yes - Immunization History Immunization Up to Date: Yes - Suicide/Smoking/Psychosocial Hx Smoking Status: Yes Smoking History: Former smoker Years of Tobacco Use: 50 Have you smoked in the past 12 months: No Number of Cigarettes Smoked Daily: 5 If you are a former smoker, when did you quit?: FEW MONTHS Information on smoking cessation initiated: No 'Breaking Loose' booklet given: 07/01/18 Hx Alcohol Use: No Drug/Substance Use Hx: No Substance Use Type: Alcohol Hx Substance Use Treatment: No Review of Systems - Review of Systems Constitutional: No: Chills, Fever Respiratory: Yes: Cough (chronic), SOB with Exertion Cardiac (ROS): No: Chest Pain, Edema, Palpitations, Syncope ABD/GI: No: Constipated, Diarrhea, Nausea, Vomiting : No: Burning, Dysuria, Discharge, Frequency, Flank Pain, Incontinence Musculoskeletal: No: Back Pain Integumentary: No: Change in Color Neurological: Yes: Weakness (generalized). No: Headache, Numbness, Paresthesia *Physical Exam - Vital Signs Last Vital Signs Temp Pulse Resp BP Pulse Ox 75 28 H 86/38 L 96 09/27/18 15:51 09/27/18 15:51 09/27/18 15:51 09/27/18 15:51 - Physical Exam General Appearance: Yes: Nourished, Appropriately Dressed. No: Apparent Distress (no increased WOB, resting comf, 100% o n RA) HEENT: positive: EOMI Neck: positive: Supple Respiratory/Chest: positive: Rales (\bilateral bases ). negative: Respiratory Distress, Crackles, Wheezing Cardiovascular: positive: Regular Rhythm, Regular Rate, S1, S2. negative: Edema , JVD, Murmur Vascular Pulses: Dorsalis-Pedis (R): 3+, Doralis-Pedis (L): 3+ Gastrointestinal/Abdominal: positive: Flat, Soft. negative: Distended, Guarding , Rebound, Tenderness Extremity: positive: Normal Capillary Refill, Normal Inspection Integumentary: positive: Normal Color, Dry, Warm Neurologic: positive: Fully Oriented, Alert, Normal Mood/Affect, Normal Response ED Treatment Course - LABORATORY CBC & Chemistry Diagram: 09/28/18 05:30 09/28/18 05:30 - ADDITIONAL ORDERS Additional order review: Laboratory Results 09/27/18 16:02 WBC 7.6 RBC 4.65 Hgb 11.9 Hct 37.0 D MCV 79.6 L MCH 25.7 D MCHC 32.2 RDW 16.5 H Plt Count 192 D MPV 7.8 Absolute Neuts (auto) 6.1 Neutrophils % 79.9 Lymphocytes % 13.3 D Monocytes % 4.7 Eosinophils % 1.0 Basophils % 1.1 Nucleated RBC % 0 09/27/18 16:02 RBC 4.65 MCV 79.6 L MCHC 32.2 RDW 16.5 H MPV 7.8 Neutrophils % 79.9 Lymphocytes % 13.3 D Monocytes % 4.7 Eosinophils % 1.0 Basophils % 1.1 - RADIOLOGY Radiology Studies Ordered: Category Date Time Status CHEST X-RAY PORTABLE* [RAD] Stat Radiology 09/27/18 16:16 Taken Medical Decision Making - Medical Decision Making 78 yo male with significant cardiac hx including bypass surgery, PAD and CHF ( EF 25%) presents to the ED after having exertional dyspnea today. Lasix stopped by [facility] approx 1 month ago due to low BP. Pt walks with a cane at home however, pt does not walk often and left home today for a doctors appointment, states it was very hot and became SOB. Pt on home O2 2L as needed and breathing treatments as needed, however he did not utilize either today. Vitals show low BP, 100% sat on RA Mild rales noted bilateral lung bases Pt states he feels SOB, 2L NC given and reports improvement in breathing after 5 min. DDX INLT: CHF, heat exhaustion, COPD, PNA, ACS CXR neg for acute path 1st trop neg, order placed for repeat trop in 3 hours BNP elevated past pts baseline EKG NSR without new changes Call placed to [facility] to discuss restarting lasix and admission, Dr. Strickland covering for Dr. Morales, states lasix is indicated despite concerns for low BP. Hospitalist contacted, Pt accepted for admission to Obs tele *DC/Admit/Observation/Transfer Diagnosis at time of Disposition: Acute congestive heart failure, Type 2 diabetes mellitus, Congestive heart failure, COPD (chronic obstructive pulmonary disease), SOB (shortness of breath) - Discharge Dispostion Condition at time of disposition: Stable Decision to Admit order: Yes - Referrals - Patient Instructions - Post Discharge Activity
[2018-09-27 16:55] LABS: ALBUMIN 3.2 g/dl (3.4-5.0); ALK PHOS 90 U/L (45-117); ANION GAP 8 MMOL/L (8-16); BILIRUBIN,TOTAL 0.5 mg/dL (0.2-1); BLOOD UREA NITROGEN 27 mg/dL (7-18); CHLORIDE 112 mmol/L (98-107); CO2 21 mmol/L (21-32); CREATININE 1.5 mg/dL (0.55-1.3); GLUCOSE,RANDOM 118 mg/dL (74-106); N-TERMINAL BNP 2798.6 pg/ml (5-450); POTASSIUM 4.4 mmol/L (3.5-5.1); SGOT/AST 19 U/L (15-37); SGPT/ALT 24 U/L (13-61); SODIUM 142 mmol/L (136-145); TOT PROT 6.6 g/dl (6.4-8.2)
[2018-09-27] MEDS ORDERED: FUROSEMIDE 40 MG/4 ML INJECTABLE VIAL IVPUSH SCH (17:45)
[2018-09-27] MEDS ORDERED: FUROSEMIDE 40 MG/4 ML INJECTABLE VIAL ONE (17:58)
[2018-09-27] MEDS ORDERED: ALBUTEROL SO4 8 GM HFA INHALER IH PRN (18:43)
--- NOTE | 2018-09-27 18:54 | HP ---
CHIEF COMPLAINT: PCP: gianni nina HISTORY OF PRESENT ILLNESS: 78 yo M PMHx of Severe Systolic CHF (EF 25-30%), s/p ICD, CAD s/p CABG/PCI ( last PCI 2-3 years ago), PAD s/p b/o fem-pop bypass, LE PCI with stenting, IDDM poorly controlled, Achalasia s/p Heller's myotomy, PUD s/p partial gastrectomy ( Bilroth Type II) years ago, HTN, HLD, COPD (>60 pack year smoking history, stopped smoking 6 months ago, on 2L O2 at home) and labile BP presents to the ED with SOB and generalized weakness. Pt states 1 month ago Cardiology stopped his lasix due to low BP. Pt was at urologist office and was told he didnt looke good and looked sob and was told to go to the ER. pt does endorse generalized weakness and exertional dyspnea but says this is his baseline. he can walk max 50ft befoer getting sob. lives at home w/ and ambulates w/ a cane. has O2 but does not use it. denies change in diet or weight gain. pt is compliant w/ home meds. Denies F/C/N/V. CP, back pain, changes in bowel or bladder habits. Pt never been intubated, is on 2L O2 at home as needed and neb treatments as needed. pt uses 2 pillows at baseline and has not had to increase use wet to [facility] rehab since last admission in 07/2018 but said it did not help ER course was notable for: (1)elevated BNP, trop negx1, lasix 40 (2) (3) Recent Travel: Denies PAST MEDICAL HISTORY: severe systolic CHF (EF 25-30%), s/p ICD, CAD s/p CABG/ PCI (last PCI 2-3 years ago), PAD s/p b/o fem-pop bypass, LE PCI with stenting, IDDM poorly controlled, Achalasia s/p Heller's myotomy, PUD s/p partial gastrectomy (Bilroth Type II) years ago, HTN, HLD, COPD (>60 pack year smoking history) PAST SURGICAL HISTORY: CABG, b/l fem pop bypass, heller's myotomy, partial gastrectomy (Bilroth type II), cholecystectomy, inguinal hernia repair Social History: Smoking: smoked for almost 60 years, denies current use Alcohol: Denies Drugs: Denies 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, 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 , 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, independent in ADLs Family History: denies Allergies pregabalin [From Lyrica] Allergy (Severe, Verified 09/27/18 15:47) vertigo/fainted HOME MEDICATIONS: Home Medications Medication Instructions Recorded Budesonide/Formeterol Fumarate 2 inh PO BID 12/24/16 [SYMBICORT 160/4.5mcg -] Rosuvastatin Calcium [Crestor] 20 mg PO HS 12/24/16 Carvedilol [Coreg -] 3.125 mg PO BID #60 tablet 07/25/17 Escitalopram Oxalate [Lexapro -] 20 mg PO HS 04/19/18 Albuterol Sulfate [Proair Hfa] 2 puff IH TID PRN 08/03/18 Clopidogrel Bisulfate [Plavix -] 75 mg PO DAILY tablet 08/10/18 Insulin Sliding Scale [Novolog 1 vial SQ ACHS units 08/10/18 Vial Sliding Scale -] Melatonin 10 mg PO HS PRN tab 08/10/18 Pantoprazole Sodium [Protonix -] 40 mg PO DAILY tablet.ec 08/10/18 Sacubitril/Valsartan [Entresto 24 1 tab PO HS tablet 08/10/18 mg-26 mg Tablet] Bimatoprost [Lumigan] 1 drop IO DAILY 09/27/18 Insulin Glargine,Hum.rec.anlog 50 units SQ HS 09/27/18 [Lantus Solostar PEN (NF)] REVIEW OF SYSTEMS per hpi PHYSICAL EXAMINATION Vital Signs - 24 hr 09/27/18 09/27/18 09/27/18 15:51 17:05 18:12 Temperature 97.5 F L Pulse Rate 75 Pulse Rate [ 62 Left Radial] Respiratory 28 H 18 Rate Blood Pressure 86/38 L Blood Pressure 105/58 L [Arm] O2 Sat by Pulse 96 100 Oximetry (%) GENERAL: Awake, alert, and fully oriented, in no acute distress. HEAD: Normal with no signs of trauma. EYES: Pupils equal, round and reactive to light, R eye cataract, extraocular movements intact, sclera anicteric, conjunctiva clear. No lid lag. EARS, NOSE, THROAT: Ears normal, nares patent, oropharynx clear without exudates. Moist mucous membranes. NECK: Normal range of motion, supple without lymphadenopathy, JVD, or masses. LUNGS: crackles at bases b/l? HEART: Regular rate and rhythm, normal S1 and S2 without murmur, rub or gallop. ABDOMEN: Soft, nontender, not distended, normoactive bowel sounds, no guarding, no rebound, no masses. No hepatomegaly or splenomegaly. MUSCULOSKELETAL: Normal range of motion at all joints. No bony deformities or tenderness. No CVA tenderness. UPPER EXTREMITIES: 2+ pulses, warm, well-perfused. No cyanosis. No clubbing. No peripheral edema. LOWER EXTREMITIES: 2+ pulses, warm, well-perfused. No calf tenderness. No peripheral edema. NEUROLOGICAL: Cranial nerves II-XII intact. Normal speech. PSYCHIATRIC: Cooperative. Good eye contact. Appropriate mood and affect. SKIN: Warm, dry, normal turgor, no rashes or lesions noted, normal capillary refill. Laboratory Results - last 24 hr 09/27/18 09/27/18 09/27/18 16:02 16:02 16:02 WBC 7.6 RBC 4.65 Hgb 11.9 Hct 37.0 D MCV 79.6 L MCH 25.7 D MCHC 32.2 RDW 16.5 H Plt Count 192 D MPV 7.8 Absolute Neuts (auto) 6.1 Neutrophils % 79.9 Lymphocytes % 13.3 D Monocytes % 4.7 Eosinophils % 1.0 Basophils % 1.1 Nucleated RBC % 0 Sodium 142 Potassium 4.4 Chloride 112 H Carbon Dioxide 21 Anion Gap 8 BUN 27 H Creatinine 1.5 H Est GFR (CKD-EPI)AfAm 51.67 Est GFR (CKD-EPI)NonAf 44.58 Random Glucose 118 H Lactic Acid 1.8 Calcium 9.0 Total Bilirubin 0.5 AST 19 ALT 24 Alkaline Phosphatase 90 Creatine Kinase 56 Troponin I < 0.02 B-Natriuretic Peptide 2798.6 H Total Protein 6.6 Albumin 3.2 L ECHO Interpretation Summary The left ventricle is normal in size. Left ventricular systolic function is moderately reduced. There is moderate global hypokinesis of the left ventricle. There is mild tricuspid regurgitation. Right ventricular systolic pressure is normal. The study was technically difficult with many images being suboptimal in quality. Regional wall motion abnormalities cannot be excluded due to limited visualization. The left atrium is mildly dilated. The right atrium is mildly dilated. There is mild to moderate mitral regurgitation. MD Carlos Brennan 08/04/2018 02:27 PM Reported By: Carlos Brennan MD 08/04/18 1427 ASSESSMENT/PLAN: 78 yo M PMHx of Severe Systolic CHF (EF 25-30%), s/p ICD, CAD s/p CABG/PCI ( last PCI 2-3 years ago), PAD s/p b/o fem-pop bypass, LE PCI with stenting, IDDM poorly controlled, Achalasia s/p Heller's myotomy, PUD s/p partial gastrectomy ( Bilroth Type II) years ago, HTN, HLD, COPD (>60 pack year smoking history, stopped smoking 6 months ago, on 2L O2 at home) and labile BP presents to the ED with SOB and generalized weakness. meds have been recd w/ Acute CHF exacerbation - crackles on exam?, BNP 2798. hypotension likely 2/2 low EF. etiology of exacerbation likely 2/2 being off lasix due to hypotension. does not appear septic appearing. will need to r/o acs although less likely s/p lasix 40 in ED hold off on further lasix w/ low BPs 80s/40s. will reassess yefri and talk to cardio cardio consult, Carmen martinez I/O daily weights recently had echo 07/2018, no need to rpt trop neg x1, rpt trop EKG qtc 495, TWI in lateral leads V4-V6 and I AVL, but appears unchanged from prior ekg #APRYL on CKD: 2/2 CHF. Cr 1.5 (baseline 1.3) -monitor with lasix -monitor Cr #COPD -stable -resume home inhalers #DM -BGM ACHS -ISS ACHS -home dose levemir 50 sq hs #HTN/HLD/CAD resume home meds, however will hold home BP meds w/ low BPs 80s/40s FEN po hydration replete prn low Na, DM diet ppx SQH tid home protonix dispo tele Visit type - Emergency Visit Emergency Visit: Yes ED Registration Date: 09/27/18 Care time: The patient presented to the Emergency Department on the above date and was hospitalized for further evaluation of their emergent condition. - New Patient This patient is new to me today: Yes Date on this admission: 09/27/18 - Critical Care Critical Care patient: No
--- NOTE | 2018-09-27 18:54 | PDOC ---
Documentation entered by Liudmila Tejada SCRIBE, acting as scribe for Kimmie Johnson MD. Kimmie Johnson MD: This documentation has been prepared by the Terrell looney Daisy, SCRIBE, under my direction and personally reviewed by me in its entirety. I confirm that the documentation accurately reflects all work, treatment, procedures, and medical decision making performed by me. Attending Attestation - Resident Resident Name: Kb Galvan - ED Attending Attestation I have performed the following: I have examined & evaluated the patient, The case was reviewed & discussed with the resident, I agree w/resident's findings & plan - HPI HPI: 09/27/18 17:22 The patient is a 78 YOM with a PMH of severe systolic CHF, s/p ICD, CAD s/p CABG /PCI (last PCI 2-3 years ago), PAD s/p b/o fem-pop bypass, LE PCI with stenting , IDDM, Achalasia s/p Heller's myotomy, PUD s/p partial gastrectomy (Bilroth Type II) years ago, HTN, HLD, COPD who presents to the ED for exertional dyspnea and generalized weakness. He states he does not typically walk and got up to walk to his appointment today when his shortness of breath worsened. Patient follows with cardiology and was discontinued on the lasix 2/2 low BP. Patient has not required prior intubations. Uses 2L O2 prn. Denies F/C/N/V, cp, back pain, changes in bowel or bladder habits. Allergies: pregabalin Social Hx: Former smoker. - Physicial Exam PE: 09/27/18 17:31 ADULT EXAM GENERAL: Awake, alert, and fully oriented, in no acute distress EYES: PERRLA, EOMI, sclera anicteric, conjunctiva clear ENT: Auricles normal inspection, hearing grossly normal, nares patent, oropharynx clear without exudates. Moist mucosa NECK: No JVD LUNGS: (+) [place] bilasilar rales. Moving air. HEART: Regular rate and rhythm, normal S1 and S2, no murmurs, rubs or gallops ABDOMEN: Soft, nontender, normoactive bowel sounds. No guarding, no rebound. No masses EXTREMITIES: No lower extremity edema. NEUROLOGICAL: Cranial nerves II through XII grossly intact. Normal speech, normal gait SKIN: Warm, Dry - Medical Decision Making 09/27/18 17:51 This 78-year-old male presents with exertional dyspnea after seeing his urologist today who actually referred him to the emergency department for shortness of breath He has a significant past medical history that involves coronary artery disease status post stent, CABG, COPD, chronic kidney disease, peripheral vascular disease, diabetes, hypertension, hypertrophic cardiomyopathy venticular dilatation,systolic dysfunction with chronic NYHA class 2 CHF s/p Medtronic ICD 09/27/18 17:57 -first troponin is negative bnp>2000 chemistries reviewed and CKD 09/27/18 18:[address] Robert Strickland and recommends tele OBS 09/27/18 18:52 IMP chf,concern for ACS will trend troponin
--- NOTE | 2018-09-27 19:00 | PN ---
Teaching Attending Note Name of Resident: Nabeel Chanel ATTENDING PHYSICIAN STATEMENT I saw and evaluated the patient. I reviewed the resident's note and discussed the case with the resident. I agree with the resident's findings and plan as documented. 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 last admisison in July, he was taken off lasix due to orthostasis . BB dose was decreased and Entresto dose was decreased. after his dc from OR , he has not been ambulatory, but moves form room to room. He went to his urologist today and felt more SOB . he was referred to ER. He denies other changes in Meds since his discharge, eats regular food with no excessive salt. NO CP . OBJECTIVE: VS reviewed. NAD , awake, alert , oriented. HEENT: MMM, no JVD, no facial droop. EOMI. deformed R pupil, reactive round L pupil . CV: RRR, No MRG Lungs: L base crackles . Abd: soft, surgical scars, ND, NL BS Ext : no edema over UE, or LE Neuro: no facial droop. EOMI. deformed R pupil, reactive round L pupil . strength 5/5 in upper and lower extremities proximally and distally. reflexes 2 + knee jerk , 1+ biceps b/l. ASSESSMENT AND PLAN: 78 y/o man with h/o chronci systolic heart failure with mod decreased EF, CAD, s /p PCI ,CKD, s/p medtronic ICD, DM, PUD s/p partial gastrectomy, Achalasia , CABG, HTN, HLP, And copd ( 2 L of O2 ) , who presented due to worsening SOB. 1- Worsening SOB, could be due to acute systolic CHF exacerbation in setting of being off lasix. received 40 of IV lasix. - will assess BP and condition tomorrow and decide on lasix dosing - hold entresto and coreg due to hypotension - EKG with TWI in lateral leads, and L axis. TW changes is not new compared to EKG form July - do not suspect ACS. but follow trop - CArd consult 2- H/o HTN: now hypotensive. - hold entresto and coreg 3- APRYL on CKD: could be due to CHF. - monitor with diuresis 4- DM : cont levemir and SSI 5- HLP, h/o CAD. cont plavix . hold BB . cont Lipitor 6- DVT PX : heparin SQ.
[2018-09-27] MEDS ORDERED: INSULIN SLIDING SCALE (NOVOLOG) 1 VIAL SQ SCH (22:00)
[2018-09-27] MEDS: MELATONIN 5 MG TABLETS PO PRN (22:36)
[2018-09-27] MEDS: BUDESONIDE/FORMETEROL FUMARATE 160/4.5 mcg INHALER IH SCH (22:37)
[2018-09-27] MEDS: ESCITALOPRAM OXALATE 20 MG TABLET (FP) PO SCH (22:38)
[2018-09-27] MEDS: HEPARIN NA (PORCINE) 5,000 UNITS/ML 1ML VIAL SQ SCH (22:38)
[2018-09-27] MEDS: ROSUVASTATIN CA 20 MG TABLET (FP) PO SCH (22:38)
[2018-09-27] MEDS: INSULIN (LEVEMIR) 100 UNITS/ML UNITS SQ SCH (22:45)
[2018-09-28] MEDS: HEPARIN NA (PORCINE) 5,000 UNITS/ML 1ML VIAL SQ SCH ×3 (06:02→23:19)
[2018-09-28] MEDS: INSULIN SLIDING SCALE (NOVOLOG) 1 VIAL SQ SCH ×3 (06:02→18:43)
[2018-09-28 07:37] LABS: BASO % 0.9 % (0-2.0); EOS % 1.3 % (0-4.5); HEMATOCRIT 33.7 % (35.4-49); HEMOGLOBIN 11.2 GM/dL (11.7-16.9); LYMPH % 21.6 % (8-40); MCH 26.1 pg (25.7-33.7); MCHC 33.2 g/dl (32.0-35.9); MEAN CELL VOLUME 78.7 fl (80-96); MEAN PLT VOLUME 7.7 fl (7.5-11.1); MONO % 6.5 % (3.8-10.2); NEUT % 69.7 % (42.8-82.8); PLATELET COUNT 173 K/MM3 (134-434); RBC 4.29 M/mm3 (4.00-5.60); RDW 16.9 % (11.9-15.9); WHITE BLOOD COUNT 6.8 K/mm3 (4.0-10.0)
[2018-09-28 08:15] LABS: ALBUMIN 3.2 g/dl (3.4-5.0); BILIRUBIN,TOTAL 0.4 mg/dL (0.2-1); CALCIUM 8.7 mg/dL (8.5-10.1); CREATININE 1.4 mg/dL (0.55-1.3); MAGNESIUM 1.9 mg/dL (1.8-2.4); PHOSPHOROUS 4.2 mg/dL (2.5-4.9); POTASSIUM 4.2 mmol/L (3.5-5.1); TOT PROT 6.3 g/dl (6.4-8.2)
--- NOTE | 2018-09-28 10:02 | CON.CARD ---
Consult Consult Specialty:: Cardiology Referred by:: Hospitalist Reason for Consultation:: Cardiac evaluation - History of Present Illness Chief Complaint: Shortness of breath and generalized weakness History of Present Illness: Patient is a 78 year old male well known to me with underlying history of LV systolic dysfunction with class II NYHA classification failure, s/p ICD, CAD s/ p CABG and PCI, DM, HTN, hypercholesterolemia, COPD with prior smoking history, history of achalasia, PUD with history of partial gastrectomy and PAD s/p Fem Pop bypass who now presents with generalized weakness and increasing SOB yesterday. He also went to see his Urologist who found him pale and weak, thus sent the patient into the hospital. He was recently seen in my office at which time he remained asymptomatic. Currently he feels better. He denies chest pain, SOB or palpitations. He denies paroxysmal nocturnal dyspnea or orthopnea. He denies fever or chills. He denies nausea, vomiting, diarrhea or abdominal pain. He denies headache or lightheadedness. - History Source History Provided By: Patient, Medical Record Limitations to Obtaining History: No Limitations - Past Medical History Cardio/Vascular: Yes: CAD, CHF, HTN, Hyperlipdemia, DE, Other (s/p stent) Pulmonary: Yes: Asthma, COPD, Other (CA lung) Gastrointestinal: Yes: Constipation Renal/: Yes: BPH Musculoskeletal: Yes: Chronic low back pain, Osteoarthritis Endocrine: Yes: Diabetes Mellitus - Past Surgical History Past Surgical History: Yes: Cholecystectomy, Permanent Pacemaker - Alcohol/Substance Use Hx Alcohol Use: No History of Substance Use: reports: None - Smoking History Smoking history: Former smoker Have you smoked in the past 12 months: No Aproximately how many cigarettes per day: 5 If you are a former smoker, when did you quit?: FEW MONTHS - Social History Usual Living Arrangement: With Spouse ADL: Independent Occupation: retired: worked for [employer] History of Recent Travel: No Home Medications - Allergies Allergies/Adverse Reactions: Allergies Allergy/AdvReac Type Severity Reaction Status Date / Time pregabalin [From Lyrica] Allergy Severe Verified 09/27/18 15:47 - Home Medications Home Medications: Ambulatory Orders Budesonide/Formeterol Fumarate [SYMBICORT 160/4.5mcg -] 2 inh PO BID 12/24/16 Rosuvastatin Calcium [Crestor] 20 mg PO HS 12/24/16 Carvedilol [Coreg -] 3.125 mg PO BID #60 tablet 07/25/17 Escitalopram Oxalate [Lexapro -] 20 mg PO HS 04/19/18 Albuterol Sulfate [Proair Hfa] 2 puff IH TID PRN 08/03/18 Clopidogrel Bisulfate [Plavix -] 75 mg PO DAILY tablet 08/10/18 Insulin Sliding Scale [Novolog Vial Sliding Scale -] 1 vial SQ ACHS units 08/10 Melatonin 10 mg PO HS PRN tab 08/10/18 Pantoprazole Sodium [Protonix -] 40 mg PO DAILY tablet.ec 08/10/18 Sacubitril/Valsartan [Entresto 24 mg-26 mg Tablet] 1 tab PO HS tablet 08/10/18 Bimatoprost [Lumigan] 1 drop IO DAILY 09/27/18 Insulin Glargine,Hum.rec.anlog [Lantus Solostar PEN (NF)] 50 units SQ HS Review of Systems - Review of Systems Constitutional: reports: Weakness. denies: Chills, Fever Cardiovascular: reports: Shortness of Breath. denies: Chest Pain, Palpitations Respiratory: reports: Orthopnea, SOB, SOB on Exertion. denies: Cough, Hemoptysis, PND, Wheezing Gastrointestinal: denies: Abdominal Pain, Constipation, Diarrhea, Melena, Nausea , Rectal Bleeding, Vomiting Genitourinary: denies: Dysuria, Hematuria Musculoskeletal: denies: Back Pain, Joint Pain Neurological: denies: Dizziness, Headache, Seizure, Syncope Vital Signs: Vital Signs Temperature 98.4 F 09/28/18 06:00 Pulse Rate 61 09/28/18 06:00 Respiratory Rate 09/28/18 06:00 Blood Pressure 130/57 L 09/28/18 06:00 O2 Sat by Pulse Oximetry (%) 99 09/27/18 20:35 Eyes: Yes: PERRL HENT: Yes: Atraumatic Neck: Yes: Supple Respiratory: Yes: Diminished Gastrointestinal: Yes: Normal Bowel Sounds, Soft. No: Tenderness Cardiovascular: Yes: Regular Rate and Rhythm JVD: No PMI: Non-Displaced Heart Sounds: Yes: S1, S2. No: Gallop Murmur: Yes: Systolic Murmur, Grade 1 Edema: No - Other Data Labs, Other Data: CBC, BMP 09/28/18 05:30 09/28/18 05:30 Troponin, BNP 09/27/18 09/27/18 16:02 19:30 Troponin I < 0.02 < 0.02 B-Natriuretic Peptide 2798.6 H Laboratory Results - last 24 hr 09/27/18 09/27/18 09/27/18 16:02 16:02 16:02 WBC 7.6 RBC 4.65 Hgb 11.9 Hct 37.0 D MCV 79.6 L MCH 25.7 D MCHC 32.2 RDW 16.5 H Plt Count 192 D MPV 7.8 Absolute Neuts (auto) 6.1 Neutrophils % 79.9 Lymphocytes % 13.3 D Monocytes % 4.7 Eosinophils % 1.0 Basophils % 1.1 Nucleated RBC % 0 Sodium 142 Potassium 4.4 Chloride 112 H Carbon Dioxide 21 Anion Gap 8 BUN 27 H Creatinine 1.5 H Est GFR (CKD-EPI)AfAm 51.67 Est GFR (CKD-EPI)NonAf 44.58 POC Glucometer Random Glucose 118 H Lactic Acid 1.8 Calcium 9.0 Phosphorus Magnesium Total Bilirubin 0.5 AST 19 ALT 24 Alkaline Phosphatase 90 Creatine Kinase 56 Troponin I < 0.02 B-Natriuretic Peptide 2798.6 H Total Protein 6.6 Albumin 3.2 L TSH 09/27/18 09/27/18 09/28/18 19:30 22:41 05:30 WBC 6.8 RBC 4.29 Hgb 11.2 L Hct 33.7 L MCV 78.7 L MCH 26.1 MCHC 33.2 RDW 16.9 H Plt Count 173 MPV 7.7 Absolute Neuts (auto) 4.8 Neutrophils % 69.7 Lymphocytes % 21.6 D Monocytes % 6.5 Eosinophils % 1.3 Basophils % 0.9 Nucleated RBC % 0 Sodium Potassium Chloride Carbon Dioxide Anion Gap BUN Creatinine Est GFR (CKD-EPI)AfAm Est GFR (CKD-EPI)NonAf POC Glucometer 176 Random Glucose Lactic Acid Calcium Phosphorus Magnesium Total Bilirubin AST ALT Alkaline Phosphatase Creatine Kinase Troponin I < 0.02 B-Natriuretic Peptide Total Protein Albumin TSH 09/28/18 09/28/18 05:30 05:36 WBC RBC Hgb Hct MCV MCH MCHC RDW Plt Count MPV Absolute Neuts (auto) Neutrophils % Lymphocytes % Monocytes % Eosinophils % Basophils % Nucleated RBC % Sodium 140 Potassium 4.2 Chloride 109 H Carbon Dioxide 22 Anion Gap 9 BUN 31 H Creatinine 1.4 H Est GFR (CKD-EPI)AfAm 56.16 Est GFR (CKD-EPI)NonAf 48.46 POC Glucometer 133 Random Glucose 127 H Lactic Acid Calcium 8.7 Phosphorus 4.2 Magnesium 1.9 Total Bilirubin 0.4 AST 14 L ALT 21 Alkaline Phosphatase 88 Creatine Kinase Troponin I B-Natriuretic Peptide Total Protein 6.3 L Albumin 3.2 L TSH 1.40 D NSR with T wave abnormalities Problem List - Problems (1) COPD (chronic obstructive pulmonary disease) Code(s): J44.9 - CHRONIC OBSTRUCTIVE PULMONARY DISEASE, UNSPECIFIED Qualifiers: (2) Congestive heart failure Code(s): I50.9 - HEART FAILURE, UNSPECIFIED (3) SOB (shortness of breath) Code(s): R06.02 - SHORTNESS OF BREATH (4) Type 2 diabetes mellitus Code(s): E11.9 - TYPE 2 DIABETES MELLITUS WITHOUT COMPLICATIONS Qualifiers: (5) Achalasia Code(s): K22.0 - ACHALASIA OF CARDIA (6) Acute on chronic renal insufficiency Code(s): N28.9 - DISORDER OF KIDNEY AND URETER, UNSPECIFIED; N18.9 - CHRONIC KIDNEY DISEASE, UNSPECIFIED (7) Anemia Code(s): D64.9 - ANEMIA, UNSPECIFIED Qualifiers: Anemia type: due to chronic kidney disease Chronic kidney disease stage: stage 3 (moderate) Qualified Code(s): N18.3 - Chronic kidney disease, stage 3 (moderate); D63.1 - Anemia in chronic kidney disease; D63.1 - Anemia in chronic kidney disease (8) CAD (coronary artery disease) Code(s): I25.10 - ATHSCL HEART DISEASE OF [place] CORONARY ARTERY W/O ANG PCTRS Qualifiers: Coronary Disease-Associated Artery/Lesion type: [place] artery [place] vs. transplanted heart: [place] heart Associated angina: without angina Qualified Code(s): I25.10 - Atherosclerotic heart disease of [place] coronary artery without angina pectoris (9) Generalized weakness Code(s): R53.1 - WEAKNESS (10) History of percutaneous coronary intervention Code(s): Z98.890 - OTHER SPECIFIED POSTPROCEDURAL STATES (11) Hx of CABG Code(s): Z95.1 - PRESENCE OF AORTOCORONARY BYPASS GRAFT (12) Hyperlipidemia Code(s): E78.5 - HYPERLIPIDEMIA, UNSPECIFIED Qualifiers: Hyperlipidemia type: pure hypercholesterolemia Qualified Code(s): E78.00 - Pure hypercholesterolemia, unspecified; E78.0 - Pure hypercholesterolemia (13) Hypertension Code(s): I10 - ESSENTIAL (PRIMARY) HYPERTENSION (14) ICD (implantable cardioverter-defibrillator) in place Code(s): Z95.810 - PRESENCE OF AUTOMATIC (IMPLANTABLE) CARDIAC DEFIBRILLATOR (15) Ischemic cardiomyopathy Code(s): I25.5 - ISCHEMIC CARDIOMYOPATHY (16) NYHA class 2 acute on chronic systolic heart failure Code(s): I50.23 - ACUTE ON CHRONIC SYSTOLIC (CONGESTIVE) HEART FAILURE (17) PVD (peripheral vascular disease) Code(s): I73.9 - PERIPHERAL VASCULAR DISEASE, UNSPECIFIED Assessment/Plan 1. Generalized weakness 2. Acute on chronic LV systolic failure (class II NYHA classification) underlying LV systolic dysfunction 3. Post ICD 4. HTN 5. DM 6. Hypercholesterolemia 7. Acute on CKD 8. CAD s/p CABG, PCI, angina pectoris 9. PAD post Fem Pop bypass, [employer] 10. COPD PLAN: 1. Resume Carvedilol 3.125 mg BID and Entresto 24/26 mg BID as tolerated and monitor renal function and electrolytes 2. Continue Plavix 3. Continue Rosuvastatin 4. Will review outpatient medication list. Diuretic has been on hold, but will reassess indication 5. No need for additional cardiac evaluation at this time and follow up can be done as outpatient. Further plans are to follow Jayy Morales MD
[2018-09-28] MEDS: CLOPIDOGREL BISULFATE 75 MG TABLET (FP) PO SCH (10:55)
[2018-09-28] MEDS: BUDESONIDE/FORMETEROL FUMARATE 160/4.5 mcg INHALER IH SCH ×2 (10:57→23:22)
[2018-09-28] MEDS ORDERED: FUROSEMIDE 40 MG/4 ML INJECTABLE VIAL IVPUSH ONE (12:30)
[2018-09-28] MEDS: PANTOPRAZOLE 40 MG TABLET (FP) PO SCH (13:00)
--- NOTE | 2018-09-28 13:32 | PN ---
Progress Note (short form) - Note Progress Note: PULMONARY CONSULTATION DICTATED 09/28/18 IMP DYSPNEA ADVANCED COPD O2 DEPENDENT ACUTE ON CHRONIC CHF S/P ICD ASHD S/P CABG,PCI DM HTN PVD ACUTE ON CHRONIC KIDNEY DISEASE PLAN INHALED BRONCHODILATORS O2 LASIX DAILY WT MONITOR LYTES,RENAL FUNCTION DR DELVALLE Problem List - Problems (1) Acute on chronic diastolic CHF (congestive heart failure) Code(s): I50.33 - ACUTE ON CHRONIC DIASTOLIC (CONGESTIVE) HEART FAILURE (2) COPD (chronic obstructive pulmonary disease) Code(s): J44.9 - CHRONIC OBSTRUCTIVE PULMONARY DISEASE, UNSPECIFIED Qualifiers: (3) Congestive heart failure Code(s): I50.9 - HEART FAILURE, UNSPECIFIED (4) SOB (shortness of breath) Code(s): R06.02 - SHORTNESS OF BREATH (5) Acute kidney injury Code(s): N17.9 - ACUTE KIDNEY FAILURE, UNSPECIFIED (6) Acute on chronic renal insufficiency Code(s): N28.9 - DISORDER OF KIDNEY AND URETER, UNSPECIFIED; N18.9 - CHRONIC KIDNEY DISEASE, UNSPECIFIED (7) Anemia Code(s): D64.9 - ANEMIA, UNSPECIFIED Qualifiers: Anemia type: due to chronic kidney disease Chronic kidney disease stage: stage 3 (moderate) Qualified Code(s): N18.3 - Chronic kidney disease, stage 3 (moderate); D63.1 - Anemia in chronic kidney disease; D63.1 - Anemia in chronic kidney disease (8) CAD (coronary artery disease) Code(s): I25.10 - ATHSCL HEART DISEASE OF [place] CORONARY ARTERY W/O ANG PCTRS Qualifiers: Coronary Disease-Associated Artery/Lesion type: [place] artery [place] vs. transplanted heart: [place] heart Associated angina: without angina Qualified Code(s): I25.10 - Atherosclerotic heart disease of [place] coronary artery without angina pectoris (9) COPD exacerbation Code(s): J44.1 - CHRONIC OBSTRUCTIVE PULMONARY DISEASE W (ACUTE) EXACERBATION (10) History of percutaneous coronary intervention Code(s): Z98.890 - OTHER SPECIFIED POSTPROCEDURAL STATES (11) Hx of CABG Code(s): Z95.1 - PRESENCE OF AORTOCORONARY BYPASS GRAFT (12) Hypertension Code(s): I10 - ESSENTIAL (PRIMARY) HYPERTENSION (13) ICD (implantable cardioverter-defibrillator) in place Code(s): Z95.810 - PRESENCE OF AUTOMATIC (IMPLANTABLE) CARDIAC DEFIBRILLATOR (14) Ischemic cardiomyopathy Code(s): I25.5 - ISCHEMIC CARDIOMYOPATHY (15) NYHA class 2 acute on chronic systolic heart failure Code(s): I50.23 - ACUTE ON CHRONIC SYSTOLIC (CONGESTIVE) HEART FAILURE (16) PVD (peripheral vascular disease) Code(s): I73.9 - PERIPHERAL VASCULAR DISEASE, UNSPECIFIED (17) Pulmonary HTN Code(s): I27.20 - PULMONARY HYPERTENSION, UNSPECIFIED
--- NOTE | 2018-09-28 13:44 | EKG ---
Test Reason : Blood Pressure : / mmHG Vent. Rate : 073 BPM Atrial Rate : 073 BPM P-R Int : 236 ms QRS Dur : 120 ms QT Int : 450 ms P-R-T Axes : 065 -26 195 degrees QTc Int : 495 ms SINUS RHYTHM WITH 1ST DEGREE A-V BLOCK POSSIBLE ANTERIOR INFARCT (CITED ON OR BEFORE 30-MAY-2018) T WAVE ABNORMALITY, CONSIDER LATERAL ISCHEMIA ABNORMAL ECG WHEN COMPARED WITH ECG OF 03-AUG-2018 14:59, QUESTIONABLE CHANGE IN INITIAL FORCES OF ANTERIOR LEADS QT HAS LENGTHENED Confirmed by MD Sahil, Drhuv ([id number]) on 09/28/2018 1:44:33 PM Referred By: Confirmed By:Dhruv Baxter MD
--- NOTE | 2018-09-28 13:48 | PN ---
Addendum entered and electronically signed by Nabeel Chanel, RESIDENT 13:48: TSH nl Original Note: Physical Exam: SUBJECTIVE: Patient seen and examined at bedside. no acute events. breathing improved. BP much improved while off BP meds. denies fever, chills, cp, sob, n/v /d, urinary sxs OBJECTIVE: Vital Signs Period Temp Pulse Resp BP Sys/Garcia Pulse Ox Last 24 Hr 97.5 F-98.4 F 61-75 18-28 86-142/38-68 96-100 GENERAL: Awake, alert, and fully oriented, in no acute distress. HEAD: NCAT EYES: Pupils equal, round and reactive to light, R eye cataract, extraocular movements intact, sclera anicteric, conjunctiva clear. No lid lag. EARS, NOSE, THROAT: Ears normal, nares patent, oropharynx clear without exudates. Moist mucous membranes. NECK: Normal range of motion, supple without lymphadenopathy, JVD, or masses. LUNGS: CTA R, L base crackles?, improving HEART: RRR, distant heart sounds, normal S1 and S2 without murmur, rub or gallop. ABDOMEN: Soft, NTND, normoactive bowel sounds, no guarding, no rebound, no masses. MUSCULOSKELETAL: Normal range of motion at all joints. No bony deformities or tenderness. UPPER EXTREMITIES: 2+ pulses, warm, well-perfused. No cyanosis. No clubbing. No peripheral edema. LOWER EXTREMITIES: 2+ pulses, warm, well-perfused. No calf tenderness. No peripheral edema. NEUROLOGICAL: Cranial nerves II-XII intact. Normal speech. PSYCHIATRIC: Cooperative. Good eye contact. Appropriate mood and affect. SKIN: Warm, dry, normal turgor, no rashes or lesions noted, normal capillary refill. Laboratory Results - last 24 hr 09/27/18 09/27/18 09/27/18 16:02 16:02 16:02 WBC 7.6 RBC 4.65 Hgb 11.9 Hct 37.0 D MCV 79.6 L MCH 25.7 D MCHC 32.2 RDW 16.5 H Plt Count 192 D MPV 7.8 Absolute Neuts (auto) 6.1 Neutrophils % 79.9 Lymphocytes % 13.3 D Monocytes % 4.7 Eosinophils % 1.0 Basophils % 1.1 Nucleated RBC % 0 Sodium 142 Potassium 4.4 Chloride 112 H Carbon Dioxide 21 Anion Gap 8 BUN 27 H Creatinine 1.5 H Est GFR (CKD-EPI)AfAm 51.67 Est GFR (CKD-EPI)NonAf 44.58 POC Glucometer Random Glucose 118 H Lactic Acid 1.8 Calcium 9.0 Phosphorus Magnesium Total Bilirubin 0.5 AST 19 ALT 24 Alkaline Phosphatase 90 Creatine Kinase 56 Troponin I < 0.02 B-Natriuretic Peptide 2798.6 H Total Protein 6.6 Albumin 3.2 L TSH 09/27/18 09/27/18 09/28/18 19:30 22:41 05:30 WBC 6.8 RBC 4.29 Hgb 11.2 L Hct 33.7 L MCV 78.7 L MCH 26.1 MCHC 33.2 RDW 16.9 H Plt Count 173 MPV 7.7 Absolute Neuts (auto) 4.8 Neutrophils % 69.7 Lymphocytes % 21.6 D Monocytes % 6.5 Eosinophils % 1.3 Basophils % 0.9 Nucleated RBC % 0 Sodium Potassium Chloride Carbon Dioxide Anion Gap BUN Creatinine Est GFR (CKD-EPI)AfAm Est GFR (CKD-EPI)NonAf POC Glucometer 176 Random Glucose Lactic Acid Calcium Phosphorus Magnesium Total Bilirubin AST ALT Alkaline Phosphatase Creatine Kinase Troponin I < 0.02 B-Natriuretic Peptide Total Protein Albumin TSH 09/28/18 09/28/18 09/28/18 05:30 05:36 11:59 WBC RBC Hgb Hct MCV MCH MCHC RDW Plt Count MPV Absolute Neuts (auto) Neutrophils % Lymphocytes % Monocytes % Eosinophils % Basophils % Nucleated RBC % Sodium 140 Potassium 4.2 Chloride 109 H Carbon Dioxide 22 Anion Gap 9 BUN 31 H Creatinine 1.4 H Est GFR (CKD-EPI)AfAm 56.16 Est GFR (CKD-EPI)NonAf 48.46 POC Glucometer 133 239 Random Glucose 127 H Lactic Acid Calcium 8.7 Phosphorus 4.2 Magnesium 1.9 Total Bilirubin 0.4 AST 14 L ALT 21 Alkaline Phosphatase 88 Creatine Kinase Troponin I B-Natriuretic Peptide Total Protein 6.3 L Albumin 3.2 L TSH 1.40 D Active Medications Generic Name Dose Route Start Last Admin Trade Name Freq PRN Reason Stop Dose Admin Albuterol Sulfate 2 puff 09/27/18 18:43 Ventolin Hfa Inhaler - IH Q8H PRN SHORTNESS OF BREATH Budesonide/Formoterol Fumarate 2 puff 09/27/18 22:00 09/28/18 10:57 Symbicort 160/4.5mcg - IH 2 puff BID KADEEM Administration Clopidogrel Bisulfate 75 mg 09/28/18 10:00 09/28/18 10:55 Plavix - PO 75 mg DAILY KADEEM Administration Escitalopram Oxalate 20 mg 09/27/18 22:00 09/27/18 22:38 Lexapro - PO 20 mg HS KADEEM Administration Furosemide 40 mg 09/29/18 10:00 Lasix Injection - IVPUSH DAILY KADEEM Heparin Sodium (Porcine) 5,000 unit 09/27/18 22:00 09/28/18 06:02 Heparin - SQ 5,000 unit TID KAEDEM Administration Insulin Aspart 1 vial 09/28/18 07:00 09/28/18 13:01 Novolog Vial Sliding Scale - SQ 4 units TIDAC KADEEM Administration Protocol Insulin Detemir 50 units 09/27/18 22:00 09/27/18 22:45 Levemir Vial SQ 25 units HS [facility] Administration Latanoprost 1 drop 09/28/18 22:00 Xalatan 0.005% Eye Drops - OU HS KADEEM Melatonin 10 mg 09/27/18 18:43 09/27/18 22:36 Melatonin PO 10 mg HS PRN Administration INSOMNIA Montelukast Sodium 10 mg 09/29/18 10:00 Singulair - PO DAILY KADEEM Pantoprazole Sodium 40 mg 09/28/18 10:00 09/28/18 13:00 Protonix - PO 40 mg DAILY KADEEM Administration Rosuvastatin Calcium 20 mg 09/27/18 22:00 09/27/18 22:38 Crestor - PO 20 mg HS KADEEM Administration Sacubitril/Valsartan 1 tab 09/28/18 22:00 Entresto 24 Mg-26 Mg Tablet PO HS KADEEM ECHO Interpretation Summary The left ventricle is normal in size. Left ventricular systolic function is moderately reduced. There is moderate global hypokinesis of the left ventricle. There is mild tricuspid regurgitation. Right ventricular systolic pressure is normal. The study was technically difficult with many images being suboptimal in quality. Regional wall motion abnormalities cannot be excluded due to limited visualization. The left atrium is mildly dilated. The right atrium is mildly dilated. There is mild to moderate mitral regurgitation. MD Carlos Brennan 08/04/2018 02:27 PM Reported By: Carlos Brennan MD 08/04/18 [id number] ASSESSMENT/PLAN: 78 yo M PMHx of Severe Systolic CHF (EF 25-30%), s/p ICD, CAD s/p CABG/PCI ( last PCI 2-3 years ago), PAD s/p b/o fem-pop bypass, LE PCI with stenting, IDDM poorly controlled, Achalasia s/p Heller's myotomy, PUD s/p partial gastrectomy ( Bilroth Type II) years ago, HTN, HLD, COPD (>60 pack year smoking history, stopped smoking 6 months ago, on 2L O2 at home) and labile BP presents to the ED with SOB and generalized weakness. meds have been recd w/ Acute CHF exacerbation - crackles on exam?, BNP 2798. hypotension likely 2/2 low EF and BP meds. etiology of exacerbation likely 2/2 being off lasix due to hypotension. does not appear septic appearing. no evidence of ACS will c/w IV lasix 40 qd as BP has improved while off BP meds and clinically improved s/p lasix 40 in ED will cont to hold coreg but will resume entresto as BP is better and to provide HF protection/provide mortality benefit cardio consultCarmen I/O daily weights recently had echo 07/2018, no need to rpt trop neg x2 EKG qtc 495, TWI in lateral leads V4-V6 and I AVL, but appears unchanged from prior ekg #APRYL on CKD: 2/2 CHF. Cr 1.5...1.4 (baseline 1.3) -monitor with lasix -monitor Cr #COPD -stable -resume home inhalers -home dose singulair -pulm consultDarrell #DM -BGM ACHS -ISS ACHS -home dose levemir 50 sq hs #HTN/HLD/CAD resume home meds will cont to hold coreg but will resume entresto as BP is better and to provide HF protection/provide mortality benefit FEN po hydration replete prn low Na, DM diet ppx SQH tid home protonix dispo tele Visit type - Emergency Visit Emergency Visit: Yes ED Registration Date: 09/27/18 Care time: The patient presented to the Emergency Department on the above date and was hospitalized for further evaluation of their emergent condition. - New Patient This patient is new to me today: Yes Date on this admission: 09/28/18 - Critical Care Critical Care patient: No
--- NOTE | 2018-09-28 15:34 | CONS ---
DATE OF CONSULTATION: 09/28/2018 REFERRING PHYSICIAN: As per patient request. HISTORY OF PRESENT ILLNESS: Patient is a 78-year-old white male known to me from previous office visits, as well as hospital follow up. Past medical advanced COPD O2 dependent, long standing history of tobacco use; quit approximately 5 months ago, LV systolic dysfunction, status post ICD, ASHD, status post CABG, status post PCI, chronic kidney disease , diabetes, hypertension, hypercholesterolemia, achalasia, hiatal hernia, peptic ulcer disease, history of partial gastrectomy, CAD, status post femoropopliteal, admitted to [facility] with 1 day history of increasing shortness of breath. Patient states he was doing well until the day of admission, when going to the urologist office he started developing very weak and short of breath. He attributed this secondary to the hot humid weather. He was referred to the ER by the urologist, secondary to weakness and shortness of breath. In the ER, he was felt to be CHF or CODP exacerbation. He was started on Lasix and transferred up to the medical floor for further management. On admission, he was placed on Lasix, as well as inhaled bronchodilators. He denies any chest pain, nausea, vomiting, or diaphoresis. He denied any hemoptysis. He denied any fevers or chills. As stated before, he states that prior to going to the doctor's office yesterday, before going outside, he felt fine without any significant complaints. PAST MEDICAL HISTORY: Again includes advanced COPD on home oxygen therapy, LV systolic dysfunction, status post ICD, ASHD, status post CABG, status post PCI, hypertension, diabetes, peripheral vascular disease, status post femoral bypass, hypercholesterolemia, and diabetes. REVIEW OF SYSTEMS: Positive dyspnea, positive weakness. No chest pain, no palpitations, no cough, no hemoptysis, no abdominal pain, no lower extremity edema. MEDICATIONS: Prior to admission include Symbicort 160/4.5, Crestor, Coreg, Lexapro, ProAir HFA, Plavix, insulin sliding scale, pantoprazole, Entresto, Lumigan and Lantus. CURRENT MEDICATIONS: Include Symbicort 160/4.5, Entresto, heparin, Lexapro, albuterol, Crestor, Novolog, Levemir, Lasix 40 IV, melatonin, Plavix, eye drops and Protonix. PHYSICAL EXAMINATION: General: On physical examination patient is a well-developed, well-nourished male currently awake, alert, in no acute distress. Vitals: He is afebrile. Blood pressure is 142/68, respiratory rate is 20, O2 saturation is 94% on 2 L nasal cannula. HEENT: He is normocephalic, atraumatic. Neck: Supple. Heart: Regular with S1, S2. Chest: Left chest is diminished breath sounds. No rhonchi or wheezes. Abdomen: Soft, bowel sounds positive. Extremities: No cyanosis, or edema. LABORATORY STUDIES: Chest x-ray no infiltrates and no effusions. WBC is 6.8, hemoglobin 11.2, hematocrit 33.7 with a platelet count of 173,000. INR is 0.99. Chemistries: BUN 31, creatinine 1.4. Previous creatinine was 1.3 on August 10 and 1.1 on August 07, 2018. IMPRESSION: 1. Dyspnea likely secondary to multiple factors, possibly chronic obstructive pulmonary disease with mild chronic obstructive pulmonary disease exacerbation, secondary to adverse climate conditions, secondary to adverse weather. 2. Acute on chronic systolic congestive heart failure, status post implantable cardioverter-defibrillator. 3. Arteriosclerotic heart disease, status post coronary artery bypass graft, status post percutaneous coronary intervention. 4. Diabetes. 5. Hypertension. 6. Peripheral vascular disease, status post femoropopliteal bypass. 7. Acute on chronic kidney disease. PLAN: Inhaled bronchodilators, supplemental O2, Lasix, daily weight, monitor electrolytes, renal function. LAURA DELVALLE M.D. [id number]
--- NOTE | 2018-09-28 17:17 | PN ---
Teaching Attending Note Name of Resident: Neto Wynn ATTENDING PHYSICIAN STATEMENT I saw and evaluated the patient. I reviewed the resident's note and discussed the case with the resident. I agree with the resident's findings and plan as documented. SUBJECTIVE: No fever or chills. No SAWYER , no CP . SOB is better OBJECTIVE: NAD , awake, alert HEENT: MMM, no JVD, no facial droop. CV: RRR, No MRG Lungs: CTAB today Ext : no edema over UE, or LE ASSESSMENT AND PLAN: 78 y/o man with h/o chronci systolic heart failure with mod decreased EF, CAD, s /p PCI ,CKD, s/p medtronic ICD, DM, PUD s/p partial gastrectomy, Achalasia , CABG, HTN, HLP, And copd ( 2 L of O2 ) , who presented due to worsening SOB. 1- Acute systolic heart failure exacerbation: - cont IV lasix at 40 mg daily. BP tolerates - resume Entresto ( home dose once daily ) . If, BP tolerates can increase toBId and then can introduce coreg - further cardiac w/u as out pt . 2- H/o HTN: n - resume Entresto as above 3- APRYL on CKD: could be due to CHF. improved - monitor with diuresis 4- DM : cont levemir and SSI 5- HLP, h/o CAD. cont plavix. hold BB. cont Lipitor. 6- DVT PX: heparin SQ.
[2018-09-28] MEDS ORDERED: SACUBITRIL/VALSARTAN 24 MG-26 MG TABLET PO SCH (22:00)
[2018-09-28] MEDS ORDERED: LATANOPROST 0.005% OPHTH SOLN 2.5ML BOTTLE OU SCH (22:00)
[2018-09-28] MEDS ORDERED: MONTELUKAST NA 10 MG TABLET PO SCH (22:00)
[2018-09-28] MEDS ORDERED: PT OWN MED DRAWER 7, Y5N ONE (22:29)
[2018-09-28] MEDS: ROSUVASTATIN CA 20 MG TABLET (FP) PO SCH (23:18)
[2018-09-28] MEDS: INSULIN (LEVEMIR) 100 UNITS/ML UNITS SQ SCH (23:19)
[2018-09-28] MEDS: ESCITALOPRAM OXALATE 20 MG TABLET (FP) PO SCH (23:20)
[2018-09-28] MEDS: MELATONIN 5 MG TABLETS PO PRN (23:21)
[2018-09-29] MEDS: INSULIN SLIDING SCALE (NOVOLOG) 1 VIAL SQ SCH ×2 (06:22→12:15)
[2018-09-29] MEDS: HEPARIN NA (PORCINE) 5,000 UNITS/ML 1ML VIAL SQ SCH (06:22)
--- NOTE | 2018-09-29 06:35 | PN ---
Progress Note (short form) - Note Progress Note: Chief Complaint: Events noted, notes reviewed, dyspnea persists but improved, denies any chest pain History of Present Illness: Seen and examined on telemetry. Events noted, notes reviewed, dyspnea persists but improved, denies any chest pain Medications: Current Medications Albuterol Sulfate (Ventolin Hfa Inhaler -) 2 puff IH Q8H PRN PRN Reason: SHORTNESS OF BREATH Budesonide/Formoterol Fumarate (Symbicort 160/4.5mcg -) 2 puff IH BID [facility] Last Admin: 09/28/18 23:22 Dose: 2 puff Clopidogrel Bisulfate (Plavix -) 75 mg PO DAILY [facility] Last Admin: 09/28/18 10:55 Dose: 75 mg Escitalopram Oxalate (Lexapro -) 20 mg PO [facility] Last Admin: 09/28/18 23:20 Dose: 20 mg Furosemide (Lasix Injection -) 40 mg IVPUSH DAILY [facility] Heparin Sodium (Porcine) (Heparin -) 5,000 unit SQ TID [facility] Last Admin: 09/29/18 06:22 Dose: 5,000 unit Insulin Aspart (Novolog Vial Sliding Scale -) 1 vial SQ TIDAC [facility]; Protocol Last Admin: 09/29/18 06:22 Dose: Not Given Insulin Detemir (Levemir Vial) 50 units SQ [facility] Last Admin: 09/28/18 23:19 Dose: 50 units Latanoprost (Xalatan 0.005% Eye Drops -) 1 drop OU [facility] Last Admin: 09/29/18 00:30 Dose: Not Given Melatonin (Melatonin) 10 mg PO PRN PRN Reason: INSOMNIA Last Admin: 09/28/18 23:21 Dose: 10 mg Montelukast Sodium (Singulair -) 10 mg PO [facility] Last Admin: 09/28/18 23:20 Dose: 10 mg Pantoprazole Sodium (Protonix -) 40 mg PO DAILY [facility] Last Admin: 09/28/18 13:00 Dose: 40 mg Rosuvastatin Calcium (Crestor -) 20 mg PO [facility] Last Admin: 09/28/18 23:18 Dose: 20 mg Sacubitril/Valsartan (Entresto 24 Mg-26 Mg Tablet) 1 tab PO [facility] Last Admin: 09/28/18 23:18 Dose: 1 tab Review of Systems - Review of Systems Constitutional: denies: Chills, Fever Cardiovascular: As noted above Respiratory: reports: Dyspnea denies: Cough or Sputum Production Gastrointestinal: denies: Nausea, Vomiting, diarrhea, Constipation or Abdominal Pain Musculoskeletal: denies: Joint Pain Neurological: denies: Headache Vital Signs: Last Vital Signs Temp Pulse Resp BP Pulse Ox 97.0 F L 66 18 108/53 L 94 L 09/29/18 05:00 09/29/18 05:00 09/29/18 05:00 09/29/18 05:00 09/28/18 21:00 Intake & Output 09/26/18 09/27/18 09/28/18 09/29/18 23:59 23:59 23:59 23:59 Intake Total 10 740 Output Total 900 Balance 10 -160 Weight 165 lb 3.2 oz 179 lb 6.4 oz Neck: Supple Negative JVD Respiratory: Clear to A&P Bilaterally Cardiovascular: S1 S2 Regular Rate and Rhythm Gastrointestinal: Soft Benign Normal Bowel Sounds Ext: No Edema Labs: CBC, BMP 09/28/18 05:30 09/28/18 05:30 Hepatic Panel Total Bilirubin 0.4 mg/dL (0.2-1) 09/28/18 05:30 AST 14 U/L (15-37) L 09/28/18 05:30 ALT 21 U/L (13-61) 09/28/18 05:30 Alkaline Phosphatase 88 U/L (45-117) 09/28/18 05:30 Albumin 3.2 g/dl (3.4-5.0) L 09/28/18 05:30 Assessment/Plan 1. Acute on chronic class I-II NYHA classifcation LV failure related to systolic LV dysfunction, clinically resolving 2. CAD post PCI/stent/CABG angina pectoris, stable 3. Hypertension, transient hypotension 4. Diabetes mellitus 5. Hypercholesterolemia 6. PAD post SCRAPER HAND 7. COPD 8. CKD PLAN: 1. Continue Coreg and titrate dosage as tolerated, hemodynamics permitting 2. Continue Entresto with close monitoring of renal function, and titrate dosage as tolerated, hemodynamics permitting 3. Continue Plavix 4. Continue Crestor 5. Continue Lasix with close monitoring of renal function, switch to PO 6. Can be D/C home from the cardiovascular point of view, further cardiovascular testing to be performed as outpatient- advised to F/U in the office in 1-2 week Katharine Mitchell MD
[2018-09-29 07:17] LABS: HEMATOCRIT 34.8 % (35.4-49); HEMOGLOBIN 11.7 GM/dL (11.7-16.9); MCH 26.4 pg (25.7-33.7); MCHC 33.5 g/dl (32.0-35.9); MEAN CELL VOLUME 78.8 fl (80-96); MEAN PLT VOLUME 8.1 fl (7.5-11.1); PLATELET COUNT 165 K/MM3 (134-434); RBC 4.41 M/mm3 (4.00-5.60); WHITE BLOOD COUNT 7.1 K/mm3 (4.0-10.0)
[2018-09-29 07:28] LABS: CALCIUM 8.6 mg/dL (8.5-10.1); CREATININE 1.4 mg/dL (0.55-1.3); PHOSPHOROUS 4.1 mg/dL (2.5-4.9); POTASSIUM 3.8 mmol/L (3.5-5.1)
[2018-09-29] MEDS ORDERED: FUROSEMIDE 40 MG/4 ML INJECTABLE VIAL IVPUSH SCH (10:00)
[2018-09-29] MEDS ORDERED: CARVEDILOL 3.125 MG TABLET (FP) PO SCH (10:00)
[2018-09-29] MEDS ORDERED: FUROSEMIDE 20 MG TABLET (FP) PO SCH (10:00)
[2018-09-29 10:22] VITALS: BP 119/47; PULSE 67; TEMP 98
[2018-09-29] MEDS: CLOPIDOGREL BISULFATE 75 MG TABLET (FP) PO SCH (10:23)
[2018-09-29] MEDS: PANTOPRAZOLE 40 MG TABLET (FP) PO SCH (10:23)
[2018-09-29] MEDS: BUDESONIDE/FORMETEROL FUMARATE 160/4.5 mcg INHALER IH SCH (10:24)
--- NOTE | 2018-09-29 11:00 | PN ---
Progress Note, Physician History of Present Illness: PULMONARY ALERT,COMFORTABLE,-SOB,-CP,-COUGH - Current Medication List Current Medications: Active Medications Albuterol Sulfate (Ventolin Hfa Inhaler -) 2 puff IH Q8H PRN PRN Reason: SHORTNESS OF BREATH Budesonide/Formoterol Fumarate (Symbicort 160/4.5mcg -) 2 puff IH BID [facility] Last Admin: 09/29/18 10:24 Dose: 2 puff Carvedilol (Coreg -) 3.125 mg PO BID [facility] Last Admin: 09/29/18 10:23 Dose: 3.125 mg Clopidogrel Bisulfate (Plavix -) 75 mg PO DAILY [facility] Last Admin: 09/29/18 10:23 Dose: 75 mg Escitalopram Oxalate (Lexapro -) 20 mg PO [facility] Last Admin: 09/28/18 23:20 Dose: 20 mg Furosemide (Lasix -) 20 mg PO DAILY [facility] Last Admin: 09/29/18 10:23 Dose: 20 mg Heparin Sodium (Porcine) (Heparin -) 5,000 unit SQ TID [facility] Last Admin: 09/29/18 06:22 Dose: 5,000 unit Insulin Aspart (Novolog Vial Sliding Scale -) 1 vial SQ [facility]; Protocol Last Admin: 09/29/18 06:22 Dose: Not Given Insulin Detemir (Levemir Vial) 50 units SQ [facility] Last Admin: 09/28/18 23:19 Dose: 50 units Latanoprost (Xalatan 0.005% Eye Drops -) 1 drop OU [facility] Last Admin: 09/29/18 00:30 Dose: Not Given Melatonin (Melatonin) 10 mg PO HS PRN PRN Reason: INSOMNIA Last Admin: 09/28/18 23:21 Dose: 10 mg Montelukast Sodium (Singulair -) 10 mg PO [facility] Last Admin: 09/28/18 23:20 Dose: 10 mg Pantoprazole Sodium (Protonix -) 40 mg PO DAILY [facility] Last Admin: 09/29/18 10:23 Dose: 40 mg Rosuvastatin Calcium (Crestor -) 20 mg PO [facility] Last Admin: 09/28/18 23:18 Dose: 20 mg Sacubitril/Valsartan (Entresto 24 Mg-26 Mg Tablet) 1 tab PO [facility] Last Admin: 09/28/18 23:18 Dose: 1 tab - Objective Vital Signs: Vital Signs Temperature 98 F 09/29/18 09:00 Pulse Rate 67 09/29/18 09:00 Respiratory Rate 20 09/29/18 09:00 Blood Pressure 119/47 L 09/29/18 09:00 O2 Sat by Pulse Oximetry (%) 94 L 09/28/18 21:00 Constitutional: Yes: Well Nourished, Calm Eyes: Yes: WNL HENT: Yes: WNL Neck: Yes: WNL Cardiovascular: Yes: Regular Rate and Rhythm, S1, S2 Respiratory: Yes: Diminished Gastrointestinal: Yes: Normal Bowel Sounds, Soft Extremities: Yes: WNL Edema: No Labs: CBC, BMP 09/29/18 05:30 09/29/18 05:30 Problem List - Problems (1) Acute on chronic diastolic CHF (congestive heart failure) Code(s): I50.33 - ACUTE ON CHRONIC DIASTOLIC (CONGESTIVE) HEART FAILURE (2) COPD (chronic obstructive pulmonary disease) Code(s): J44.9 - CHRONIC OBSTRUCTIVE PULMONARY DISEASE, UNSPECIFIED Qualifiers: (3) Congestive heart failure Code(s): I50.9 - HEART FAILURE, UNSPECIFIED (4) SOB (shortness of breath) Code(s): R06.02 - SHORTNESS OF BREATH (5) Acute kidney injury Code(s): N17.9 - ACUTE KIDNEY FAILURE, UNSPECIFIED (6) Acute on chronic renal insufficiency Code(s): N28.9 - DISORDER OF KIDNEY AND URETER, UNSPECIFIED; N18.9 - CHRONIC KIDNEY DISEASE, UNSPECIFIED (7) Anemia Code(s): D64.9 - ANEMIA, UNSPECIFIED Qualifiers: Anemia type: due to chronic kidney disease Chronic kidney disease stage: stage 3 (moderate) Qualified Code(s): N18.3 - Chronic kidney disease, stage 3 (moderate); D63.1 - Anemia in chronic kidney disease; D63.1 - Anemia in chronic kidney disease (8) CAD (coronary artery disease) Code(s): I25.10 - ATHSCL HEART DISEASE OF [place] CORONARY ARTERY W/O ANG PCTRS Qualifiers: Coronary Disease-Associated Artery/Lesion type: [place] artery [place] vs. transplanted heart: [place] heart Associated angina: without angina Qualified Code(s): I25.10 - Atherosclerotic heart disease of [place] coronary artery without angina pectoris (9) COPD exacerbation Code(s): J44.1 - CHRONIC OBSTRUCTIVE PULMONARY DISEASE W (ACUTE) EXACERBATION (10) History of percutaneous coronary intervention Code(s): Z98.890 - OTHER SPECIFIED POSTPROCEDURAL STATES (11) Hx of CABG Code(s): Z95.1 - PRESENCE OF AORTOCORONARY BYPASS GRAFT (12) Hypertension Code(s): I10 - ESSENTIAL (PRIMARY) HYPERTENSION (13) ICD (implantable cardioverter-defibrillator) in place Code(s): Z95.810 - PRESENCE OF AUTOMATIC (IMPLANTABLE) CARDIAC DEFIBRILLATOR (14) Ischemic cardiomyopathy Code(s): I25.5 - ISCHEMIC CARDIOMYOPATHY (15) NYHA class 2 acute on chronic systolic heart failure Code(s): I50.23 - ACUTE ON CHRONIC SYSTOLIC (CONGESTIVE) HEART FAILURE (16) PVD (peripheral vascular disease) Code(s): I73.9 - PERIPHERAL VASCULAR DISEASE, UNSPECIFIED (17) Pulmonary HTN Code(s): I27.20 - PULMONARY HYPERTENSION, UNSPECIFIED Assessment/Plan IMP DYSPNEA IMPROVED ADVANCED COPD O2 DEPENDENT ACUTE ON CHRONIC CHF S/P ICD IMPROVED ASHD S/P CABG,PCI DM HTN PVD ACUTE ON CHRONIC KIDNEY DISEASE PLAN INHALED BRONCHODILATORS O2 LASIX DR DELVALLE Problem List - Problems (1) Acute on chronic diastolic CHF (congestive heart failure) Code(s): I50.33 - ACUTE ON CHRONIC DIASTOLIC (CONGESTIVE) HEART FAILURE (2) COPD (chronic obstructive pulmonary disease) Code(s): J44.9 - CHRONIC OBSTRUCTIVE PULMONARY DISEASE, UNSPECIFIED Qualifiers: (3) Congestive heart failure Code(s): I50.9 - HEART FAILURE, UNSPECIFIED (4) SOB (shortness of breath) Code(s): R06.02 - SHORTNESS OF BREATH (5) Acute kidney injury Code(s): N17.9 - ACUTE KIDNEY FAILURE, UNSPECIFIED (6) Acute on chronic renal insufficiency Code(s): N28.9 - DISORDER OF KIDNEY AND URETER, UNSPECIFIED; N18.9 - CHRONIC KIDNEY DISEASE, UNSPECIFIED (7) Anemia Code(s): D64.9 - ANEMIA, UNSPECIFIED Qualifiers: Anemia type: due to chronic kidney disease Chronic kidney disease stage: stage 3 (moderate) Qualified Code(s): N18.3 - Chronic kidney disease, stage 3 (moderate); D63.1 - Anemia in chronic kidney disease; D63.1 - Anemia in chronic kidney disease (8) CAD (coronary artery disease) Code(s): I25.10 - ATHSCL HEART DISEASE OF [place] CORONARY ARTERY W/O ANG PCTRS Qualifiers: Coronary Disease-Associated Artery/Lesion type: [place] artery [place] vs. transplanted heart: [place] heart Associated angina: without angina Qualified Code(s): I25.10 - Atherosclerotic heart disease of [place] coronary artery without angina pectoris (9) COPD exacerbation Code(s): J44.1 - CHRONIC OBSTRUCTIVE PULMONARY DISEASE W (ACUTE) EXACERBATION (10) History of percutaneous coronary intervention Code(s): Z98.890 - OTHER SPECIFIED POSTPROCEDURAL STATES (11) Hx of CABG Code(s): Z95.1 - PRESENCE OF AORTOCORONARY BYPASS GRAFT (12) Hypertension Code(s): I10 - ESSENTIAL (PRIMARY) HYPERTENSION (13) ICD (implantable cardioverter-defibrillator) in place Code(s): Z95.810 - PRESENCE OF AUTOMATIC (IMPLANTABLE) CARDIAC DEFIBRILLATOR (14) Ischemic cardiomyopathy Code(s): I25.5 - ISCHEMIC CARDIOMYOPATHY (15) NYHA class 2 acute on chronic systolic heart failure Code(s): I50.23 - ACUTE ON CHRONIC SYSTOLIC (CONGESTIVE) HEART FAILURE (16) PVD (peripheral vascular disease) Code(s): I73.9 - PERIPHERAL VASCULAR DISEASE, UNSPECIFIED (17) Pulmonary HTN Code(s): I27.20 - PULMONARY HYPERTENSION, UNSPECIFIED
--- NOTE | 2018-09-29 11:33 | DS ---
Physical Exam: SUBJECTIVE: Patient seen and examined at bedside. no acute events. breathing improved. denies fever, chills, cp, sob, n/v/d, urinary sxs OBJECTIVE: Vital Signs Period Temp Pulse Resp BP Sys/Garcia Pulse Ox Last 24 Hr 97.0 F-98.7 F 61-70 18-20 84-142/42-68 94 PHYSICAL EXAM GENERAL: Awake, alert, and fully oriented, in no acute distress. HEAD: NCAT EYES: Pupils equal, round and reactive to light, R eye cataract, extraocular movements intact, sclera anicteric, conjunctiva clear. No lid lag. EARS, NOSE, THROAT: Ears normal, nares patent, oropharynx clear without exudates. Moist mucous membranes. NECK: Normal range of motion, supple without lymphadenopathy, JVD, or masses. LUNGS: CTAB HEART: RRR, distant heart sounds, normal S1 and S2 without murmur, rub or gallop. ABDOMEN: Soft, NTND, normoactive bowel sounds, no guarding, no rebound, no masses. MUSCULOSKELETAL: Normal range of motion at all joints. No bony deformities or tenderness. UPPER EXTREMITIES: 2+ pulses, warm, well-perfused. No cyanosis. No clubbing. No peripheral edema. LOWER EXTREMITIES: 2+ pulses, warm, well-perfused. No calf tenderness. No peripheral edema. NEUROLOGICAL: Cranial nerves II-XII intact. Normal speech. PSYCHIATRIC: Cooperative. Good eye contact. Appropriate mood and affect. SKIN: Warm, dry, normal turgor, no rashes or lesions noted, normal capillary refill. LABS Laboratory Results - last 24 hr 09/28/18 09/28/18 09/28/18 11:59 16:59 21:26 WBC RBC Hgb Hct MCV MCH MCHC RDW Plt Count MPV Sodium Potassium Chloride Carbon Dioxide Anion Gap BUN Creatinine Est GFR (CKD-EPI)AfAm Est GFR (CKD-EPI)NonAf POC Glucometer 239 154 178 Random Glucose Calcium Phosphorus Magnesium 09/29/18 09/29/18 09/29/18 05:30 05:30 05:35 WBC 7.1 RBC 4.41 Hgb 11.7 Hct 34.8 L MCV 78.8 L MCH 26.4 MCHC 33.5 RDW 17.0 H Plt Count 165 MPV 8.1 Sodium 140 Potassium 3.8 Chloride 109 H Carbon Dioxide 25 Anion Gap 7 L BUN 29 H Creatinine 1.4 H Est GFR (CKD-EPI)AfAm 56.16 Est GFR (CKD-EPI)NonAf 48.46 POC Glucometer 108 Random Glucose 109 H Calcium 8.6 Phosphorus 4.1 Magnesium 2.0 ECHO Interpretation Summary The left ventricle is normal in size. Left ventricular systolic function is moderately reduced. There is moderate global hypokinesis of the left ventricle. There is mild tricuspid regurgitation. Right ventricular systolic pressure is normal. The study was technically difficult with many images being suboptimal in quality. Regional wall motion abnormalities cannot be excluded due to limited visualization. The left atrium is mildly dilated. The right atrium is mildly dilated. There is mild to moderate mitral regurgitation. MD Carlos Brennan 08/04/2018 02:27 PM Reported By: Carlos Brennan MD 08/04/18 1427 HOSPITAL COURSE: Date of Admission:09/27/18 Date of Discharge: 09/29/18 78 yo M PMHx of Severe Systolic CHF (EF 25-30%), s/p ICD, CAD s/p CABG/PCI ( last PCI 2-3 years ago), PAD s/p b/o fem-pop bypass, LE PCI with stenting, IDDM poorly controlled, Achalasia s/p Heller's myotomy, PUD s/p partial gastrectomy ( [place]ro[place] Type II) years ago, HTN, HLD, COPD (>60 pack year smoking history, stopped smoking 6 months ago, on 2L O2 at home) and labile BP presents to the ED with SOB and generalized weakness. (pt baseline is SOB w/ambulation. on 2L O2 at home but only uses it as needed) Admitted for Acute CHF exacerbation likely 2/2 being off lasix due to chronic hypotension (lasix was decided to be held at his prior admission in 08/2018).- mild crackles on exam, BNP 2798. EKG qtc 495, TWI in lateral leads V4-V6 and I AVL, but appears unchanged from prior ekg. trop neg x2. cardio consulted, Dr Morales. no events on tele. recently had echo 07/2018 reviewed above, and so there was no need to rpt echo during this admission. noted w/ mild APRYL Cr 1.5...1.4...1.4 (baseline 1.3), which resolved w/ IV lasix. CHF now resolved. pt will be dcd w/ lasix 20mg po and will f/u outp w/ cardio for close BP monitoring. of note, pt has chronically low BP (likely 2/2 low EF) and was noted w/ BP 80s/ 40s on admission. we held entresto and coreg and BP improved 130s/60s. we added back entresto and bp remained stable. will resume both entresto and coreg at discharge and pt christopher f/u outpt w/ cardio. will dc w/ lasix 20mg po and will f/ u outp w/ cardio for close BP monitoring, cardio recs appreciated pt stable and ready for dc w/ appropriate f/u Minutes to complete discharge: 38 Discharge Summary Reason For Visit: CONGESTIVE HEART FAILURE Current Active Problems Acute on chronic diastolic CHF (congestive heart failure) (Acute) COPD (chronic obstructive pulmonary disease) (Acute) Congestive heart failure (Acute) SOB (shortness of breath) (Acute) Type 2 diabetes mellitus (Acute) Acute congestive heart failure (Chronic) Condition: Stable - Instructions Diet, Activity, Other Instructions: you came in for chf exacerbation. we gave you lasix and you improved please continue lasix 20mg once a day please resume your home meds Please follow up with your primary care physician within 1 week Please follow up with your radiologist diagnostic Dr Morales within 1 week for close monitoring of your heart and for any adjustments in your blood pressure meds Please follow up with your lung doctor Dr. Ramírez within 1 week if you have chest pain or worsening shortness of breath please call 911 or go to the ER Referrals: Jeremiah Ramírez MD [Staff Physician] - 1 Week Jayy Morales MD [Staff Physician] - 1 Week Disposition: HOME - Home Medications Comprehensive Discharge Medication List: Ambulatory Orders Budesonide/Formeterol Fumarate [SYMBICORT 160/4.5mcg -] 2 inh PO BID 12/24/16 Rosuvastatin Calcium [Crestor] 20 mg PO HS 12/24/16 Carvedilol [Coreg -] 3.125 mg PO BID #60 tablet 07/25/17 Escitalopram Oxalate [Lexapro -] 20 mg PO HS 04/19/18 Albuterol Sulfate [Proair Hfa] 2 puff IH TID PRN 08/03/18 Clopidogrel Bisulfate [Plavix -] 75 mg PO DAILY tablet 08/10/18 Insulin Sliding Scale [Novolog Vial Sliding Scale -] 1 vial SQ ACHS units 08/10 Melatonin 10 mg PO HS PRN tab 08/10/18 Pantoprazole Sodium [Protonix -] 40 mg PO DAILY tablet.ec 08/10/18 Sacubitril/Valsartan [Entresto 24 mg-26 mg Tablet] 1 tab PO HS tablet 08/10/18 Bimatoprost [Lumigan] 1 drop IO DAILY 09/27/18 Insulin Glargine,Hum.rec.anlog [Lantus Solostar PEN -] 50 units SQ HS 09/27/18 Montelukast Na [Singulair -] 10 mg PO DAILY 09/28/18 Furosemide [Lasix -] 20 mg PO DAILY 30 Days #30 tablet 09/29/18 This patient is new to me today: Yes Date on this admission: 09/29/18 Emergency Visit: Yes ED Registration Date: 09/27/18 Care time: The patient presented to the Emergency Department on the above date and was hospitalized for further evaluation of their emergent condition. Critical Care patient: No - Discharge Referral Referred to [facility] Med P.C.: No
--- NOTE | 2018-09-29 13:43 | PN ---
Teaching Attending Note Name of Resident: Nabeel Chanel ATTENDING PHYSICIAN STATEMENT I saw and evaluated the patient. I reviewed the resident's note and discussed the case with the resident. I agree with the resident's findings and plan as documented. SUBJECTIVE: Patient is feeling better with no acute distress. patient wants to go home. OBJECTIVE: Vital Signs Temperature 98 F 09/29/18 09:00 Pulse Rate 67 09/29/18 09:00 Respiratory Rate 20 09/29/18 09:00 Blood Pressure 119/47 L 09/29/18 09:00 O2 Sat by Pulse Oximetry (%) 94 L 09/28/18 21:00 Gen: NAD , awake, alert HEENT: MMM, no JVD, no facial droop. CV: RRR, No MRG Lungs: CTAB today Ext : no edema over UE, or LE CBCD WBC 7.1 K/mm3 (4.0-10.0) 09/29/18 05:30 RBC 4.41 M/mm3 (4.00-5.60) 09/29/18 05:30 Hgb 11.7 GM/dL (11.7-16.9) 09/29/18 05:30 Hct 34.8 % (35.4-49) L 09/29/18 05:30 MCV 78.8 fl (80-96) L 09/29/18 05:30 MCHC 33.5 g/dl (32.0-35.9) 09/29/18 05:30 RDW 17.0 % (11.9-15.9) H 09/29/18 05:30 Plt Count 165 K/MM3 (134-434) 09/29/18 05:30 MPV 8.1 fl (7.5-11.1) 09/29/18 05:30 CMP Sodium 140 mmol/L (136-145) 09/29/18 05:30 Potassium 3.8 mmol/L (3.5-5.1) 09/29/18 05:30 Chloride 109 mmol/L (98-107) H 09/29/18 05:30 Carbon Dioxide 25 mmol/L (21-32) 09/29/18 05:30 Anion Gap 7 MMOL/L (8-16) L 09/29/18 05:30 BUN 29 mg/dL (7-18) H 09/29/18 05:30 Creatinine 1.4 mg/dL (0.55-1.3) H 09/29/18 05:30 Random Glucose 109 mg/dL (74-106) H 09/29/18 05:30 Calcium 8.6 mg/dL (8.5-10.1) 09/29/18 05:30 Total Bilirubin 0.4 mg/dL (0.2-1) 09/28/18 05:30 AST 14 U/L (15-37) L 09/28/18 05:30 ALT 21 U/L (13-61) 09/28/18 05:30 Alkaline Phosphatase 88 U/L (45-117) 09/28/18 05:30 Total Protein 6.3 g/dl (6.4-8.2) L 09/28/18 05:30 Albumin 3.2 g/dl (3.4-5.0) L 09/28/18 05:30 CARDIAC ENZYMES Creatine Kinase 56 U/L (26-308) 09/27/18 16:02 Troponin I < 0.02 ng/ml (0.00-0.05) 09/27/18 19:30 Home Medications Medication Instructions Recorded Budesonide/Formeterol Fumarate 2 inh PO BID 12/24/16 [SYMBICORT 160/4.5mcg -] Rosuvastatin Calcium [Crestor] 20 mg PO HS 12/24/16 Carvedilol [Coreg -] 3.125 mg PO BID #60 tablet 07/25/17 Escitalopram Oxalate [Lexapro -] 20 mg PO HS 04/19/18 Albuterol Sulfate [Proair Hfa] 2 puff IH TID PRN 08/03/18 Clopidogrel Bisulfate [Plavix -] 75 mg PO DAILY tablet 08/10/18 Insulin Sliding Scale [Novolog 1 vial SQ ACHS units 08/10/18 Vial Sliding Scale -] Melatonin 10 mg PO HS PRN tab 08/10/18 Pantoprazole Sodium [Protonix -] 40 mg PO DAILY tablet.ec 08/10/18 Sacubitril/Valsartan [Entresto 24 1 tab PO HS tablet 08/10/18 mg-26 mg Tablet] Bimatoprost [Lumigan] 1 drop IO DAILY 09/27/18 Insulin Glargine,Hum.rec.anlog 50 units SQ HS 09/27/18 [Lantus Solostar PEN -] Montelukast Na [Singulair -] 10 mg PO DAILY 09/28/18 Furosemide [Lasix -] 20 mg PO DAILY 30 Days #30 tablet 09/29/18 ASSESSMENT AND PLAN: Patient is a 78yo male with Pmhx chronic systolic heart failure with moderate decreased EF, CAD, s/p PCI ,CKD, s/p medtronic ICD, DM, PUD s/p partial gastrectomy, Achalasia , CABG, HTN, HLP, and copd ( 2 L of O2 ) , who presented for having a worsening SOB. #Acute systolic heart failure exacerbation: on IV lasix at 40 mg daily in the hospital as per cardio to dc the patient on oral lasix 20mg, resume Entresto ( home dose once daily ) . continue coreg and further cardiac w/u as out pt . # H/o HTN: resume home meds. # Acute on CKD: improved continue home meds. # T2DM : cont levemir and SSI #Hx of HLP/ CAD. cont plavix. Lipitor. and continue home meds. patient can be discharged home.
== END 2018-09-29 13:14 | disposition home health service (06) | DRG 291 ==
LOC: JER 15:12 → JERBED 17:59 → OBSVTOIN 18:41 → J4W 20:33
PROVIDERS: ADMIT Internal Medicine; ATTEND Internal Medicine
DX: I13.0 Hypertensive heart and chronic kidney disease with heart failure and stage 1 through stage 4 chronic kidney disease, or unspecified chronic kidney disease (principal); I50.23 Acute on chronic systolic (congestive) heart failure; N17.9 Acute kidney failure, unspecified; E11.22 Type 2 diabetes mellitus with diabetic chronic kidney disease; N18.9 Chronic kidney disease, unspecified; J44.9 Chronic obstructive pulmonary disease, unspecified; I25.5 Ischemic cardiomyopathy; I27.20 Pulmonary hypertension, unspecified; I34.0 Nonrheumatic mitral (valve) insufficiency; Z95.810 Presence of automatic (implantable) cardiac defibrillator; I25.10 Atherosclerotic heart disease of native coronary artery without angina pectoris; I73.9 Peripheral vascular disease, unspecified; Z79.4 Long term (current) use of insulin; D64.9 Anemia, unspecified; Z95.5 Presence of coronary angioplasty implant and graft; Z95.1 Presence of aortocoronary bypass graft; Z87.891 Personal history of nicotine dependence; Z90.3 Acquired absence of stomach [part of]; Z99.81 Dependence on supplemental oxygen
CPT/HCPCS: 36415; 71045-TC-FY; 80048; 80053; 82550; 82962; 83605; 83735; 83880; 84100; 84443; 84484; 85025; 85027; 93005; 93010; 99284-25; G0378; J1644

== ENCOUNTER 2018-12-08 09:24 | Inpatient (IN) | payer OTHER, MEDICARE ==
[2018-12-08] MEDS ORDERED: SODIUM CHLORIDE 500 ML IV STA ×2 (10:56→13:17)
[2018-12-08] MEDS ORDERED: LACTATED RINGERS SOLUTION 1,000 ML/1,000 ML INFUS.BAG IV SCH (12:00)
[2018-12-08 12:05] LABS: BASO % 0.4 % (0-2.0); EOS % 0.7 % (0-4.5); HEMOGLOBIN 11.6 GM/dL (11.7-16.9); LYMPH % 17.7 % (8-40); MCH 25.5 pg (25.7-33.7); MEAN PLT VOLUME 7.4 fl (7.5-11.1); MONO % 11.2 % (3.8-10.2); PLATELET COUNT 155 K/MM3 (134-434); RBC 4.54 M/mm3 (4.00-5.60); RDW 18.7 % (11.9-15.9); WHITE BLOOD COUNT 5.5 K/mm3 (4.0-10.0)
[2018-12-08 12:29] LABS: EPI CELLS 10.2 /HPF (0-5/HPF); HYALINE CASTS 11 /lpf (0-8); URINE APPEARANCE CLOUDY; URINE BACTERIA 1.4 /hpf (NEGATIVE); URINE BILIRUBIN NEGATIVE (NEGATIVE); URINE COLOR YELLOW; URINE GLUCOSE (UA) NEGATIVE (NEGATIVE); URINE KETONE NEGATIVE (NEGATIVE); URINE LEUK ESTERASE 2+ (NEGATIVE); URINE NITRITE NEGATIVE (NEGATIVE); URINE PROTEIN 2+ (NEGATIVE); URINE RBC 5 /hpf (0-4); URINE UROBILINOGEN 0.2 mg/dL (0.2-1.0); URINE WBC 42 /hpf (0-5)
[2018-12-08 12:57] LABS: ALBUMIN 3.4 g/dl (3.4-5.0); ALK PHOS 99 U/L (45-117); ANION GAP 9 MMOL/L (8-16); BILIRUBIN,TOTAL 0.6 mg/dL (0.2-1); BLOOD UREA NITROGEN 46.8 mg/dL (7-18); CALCIUM 8.6 mg/dL (8.5-10.1); CHLORIDE 114 mmol/L (98-107); CO2 18 mmol/L (21-32); CREATININE 1.6 mg/dL (0.55-1.3); GLUCOSE,RANDOM 179 mg/dL (74-106); LIPASE 213 U/L (73-393); MAGNESIUM 1.9 mg/dL (1.8-2.4); POTASSIUM 3.7 mmol/L (3.5-5.1); SGOT/AST 12 U/L (15-37); SGPT/ALT 20 U/L (13-61); SODIUM 141 mmol/L (136-145); TOT PROT 6.9 g/dl (6.4-8.2)
--- NOTE | 2018-12-08 14:25 | EKG ---
Test Reason : Blood Pressure : / mmHG Vent. Rate : 076 BPM Atrial Rate : 076 BPM P-R Int : 236 ms QRS Dur : 138 ms QT Int : 448 ms P-R-T Axes : 086 -19 123 degrees QTc Int : 504 ms SINUS RHYTHM WITH 1ST DEGREE A-V BLOCK NON-SPECIFIC INTRA-VENTRICULAR CONDUCTION BLOCK CANNOT RULE OUT ANTERIOR INFARCT (CITED ON OR BEFORE 30-MAY-2018) T WAVE ABNORMALITY, CONSIDER LATERAL ISCHEMIA ABNORMAL ECG WHEN COMPARED WITH ECG OF 27-SEP-2018 15:46, NO SIGNIFICANT CHANGE WAS FOUND Confirmed by THOMAS EGAN, TAWNY ([id number]) on 12/08/2018 2:25:23 PM Referred By: Confirmed By:TAWNY GUZMAN MD
[2018-12-08 14:27] LABS: YEAST MOD.SEEM (NEGATIVE)
[2018-12-08] MEDS ORDERED: CEFTRIAXONE 1,000 MG in DEXTROSE 5%-WATER - 50 ML IVPB ONE (15:17)
--- NOTE | 2018-12-08 16:26 | PDOC ---
Documentation entered by Salinas Dee SCRIBE, acting as scribe for Ishan Weston MD. Ishan Weston MD: This documentation has been prepared by the Leila looney Elijah, SCRIBE, under my direction and personally reviewed by me in its entirety. I confirm that the documentation accurately reflects all work, treatment, procedures, and medical decision making performed by me. History of Present Illness - General Chief Complaint: Diarrhea Stated Complaint: SOB / DEHYDRATION Time Seen by Provider: 12/08/18 09:55 History Source: Patient Exam Limitations: No Limitations - History of Present Illness Initial Comments: 12/08/18 11:05 Patient is a 78 year old male with a significant past medical history of DM, HTN , HCL, and COPD who presents to the ED with x3 weeks of weakness and diarrhea for x4 weeks. Patient associates dyspnea on exertion with the weakness notes he can only walk a few steps before feeling exhausted and a headache. The patient notes that his diarrhea has occurred x5-6 times daily and is usually liquid in consistency. Denies: Abdominal Pain, Chest Pain, and recent sick contacts Allergies: Pregabalin PCP: Dr. Aguilera Cardiologists: Dr. Morales Inspector Quality Assurance: Dr. Ramírez Past History - Past Medical History Allergies/Adverse Reactions: Allergies Allergy/AdvReac Type Severity Reaction Status Date / Time pregabalin [From Lyrica] Allergy Severe Verified 09/27/18 15:47 Home Medications: Ambulatory Orders Albuterol 0.083% Nebulizer Fatuma [Ventolin 0.083%] 1 neb NEB QID 12/08/18 Bimatoprost [Lumigan] 1 drop IO DAILY 12/08/18 Budesonide/Formeterol Fumarate [SYMBICORT 160/4.5mcg -] 1 inh PO DAILY 12/08/18 Carvedilol 3.125 mg PO BID 12/08/18 Clopidogrel Bisulfate [Plavix] 75 mg PO DAILY 12/08/18 Escitalopram Oxalate [Lexapro -] 20 mg PO DAILY 12/08/18 Furosemide [Lasix] 20 mg PO DAILY 12/08/18 Insulin Glargine,Hum.rec.anlog [Lantus] 100 unit SQ ASDIR 12/08/18 Insulin Lispro [Humalog] 100 unit SQ DAILY 12/08/18 Pantoprazole Sodium 40 mg PO DAILY 12/08/18 Rosuvastatin Calcium [Crestor] 20 mg PO DAILY 12/08/18 Sacubitril/Valsartan [Entresto 24 mg-26 mg Tablet] 1 each PO DAILY 12/08/18 Anemia: No Asthma: No Cancer: No Cardiac Disorders: Yes (4 stents, triple bypass) CVA: No COPD: Yes CHF: No Dementia: No Diabetes: Yes GI Disorders: No Disorders: No HTN: No Hypercholesterolemia: Yes Kidney Stones: No Liver Disease: No Psychiatric Problems: No Seizures: No Thyroid Disease: No Lung CA: No - Surgical History Abdominal Surgery: Yes (PARTIAL GASTRECTOMY,H/O ULCERS EGD BIOPSY 2009,EGD H- PYLORI 2006,COLON 2003) Appendectomy: Yes Cardiac Surgery: Yes Cholecystectomy: Yes Lung Surgery: No Neurologic Surgery: No Orthopedic Surgery: No - Family Disease History Family Disease History: Heart Disease: Father - Reproductive History Testicular Surgery: Yes - Immunization History Immunization Up to Date: Yes - Suicide/Smoking/Psychosocial Hx Smoking Status: Yes Smoking History: Former smoker Years of Tobacco Use: 50 Have you smoked in the past 12 months: No Number of Cigarettes Smoked Daily: 5 If you are a former smoker, when did you quit?: FEW MONTHS Information on smoking cessation initiated: No 'Breaking Loose' booklet given: 07/01/18 Hx Alcohol Use: No Drug/Substance Use Hx: No Substance Use Type: Alcohol Hx Substance Use Treatment: No Review of Systems - Review of Systems Comments:: 12/08/18 11:05 CONSTITUTIONAL: +Weakness. +Headache No fever, no chills EYES: No visual changes ENT: No ear pain, no sore throat CARDIOVASCULAR: No chest pain, no palpitations RESPIRATORY:+Dyspnea on Exertion. No cough GI: +Diarrhea No abdominal pain, no nausea, no vomiting, no constipation GENITOURINARY: No dysuria, no frequency, no hematuria MUSKULOSKELETAL: No backpain, no joint pain, no myalgias SKIN: No rash NEURO: No headache *Physical Exam - Vital Signs Last Vital Signs Temp Pulse Resp BP Pulse Ox 97.6 F 85 16 114/52 L 98 12/08/18 09:29 12/08/18 09:29 12/08/18 09:29 12/08/18 09:29 12/08/18 09:29 - Physical Exam Comments: 12/08/18 11:26 CONSTITUTIONAL: Awake and Alert. Frail Appearing ; in no apparent distress HEAD: Normocephalic; atraumatic EYES: +R-Pupil Irregular; EOM intact ENMT: External appears normal; normal oropharynx NECK: Supple; non-tender; no cervical lymphadenopathy CARD: Normal S1, S2; no murmurs, rubs, or gallops RESP: Normal chest excursion with respiration; breath sounds clear and equal bilaterally; no wheezes, rhonchi, or rales ABD: Soft, non-distended; non-tender; no palpable organomegaly, no palpable hernias EXT: Normal ROM in all four extremities; non-tender to palpation; distal pulses intact SKIN: Warm, dry, no rash NEURO: No focal neurological deficiencies. ED Treatment Course - LABORATORY CBC & Chemistry Diagram: 12/08/18 11:50 12/08/18 11:50 - ADDITIONAL ORDERS Additional order review: Laboratory Results 12/08/18 12/08/18 12:09 11:50 Sodium 141 Potassium 3.7 Chloride 114 H Carbon Dioxide 18 L Anion Gap 9 BUN 46.8 H Creatinine 1.6 H Est GFR (CKD-EPI)AfAm 47.79 Est GFR (CKD-EPI)NonAf 41.23 Random Glucose 179 H Calcium 8.6 Magnesium 1.9 Total Bilirubin 0.6 AST 12 L ALT 20 Alkaline Phosphatase 99 Creatine Kinase 46 Troponin I < 0.02 Total Protein 6.9 Albumin 3.4 Lipase 213 Urine Color Yellow Urine Appearance Cloudy Urine pH 5.0 Ur Specific [place] 1.018 Urine Protein 2+ H Urine Glucose (UA) Negative Urine Ketones Negative Urine Blood Negative Urine Nitrite Negative Urine Bilirubin Negative Urine Urobilinogen 0.2 Ur Leukocyte Esterase 2+ H Urine WBC (Auto) 42 Urine RBC (Auto) 5 Urine Casts (Auto) 11 U Epithel Cells (Auto) 10.2 Urine Bacteria (Auto) 1.4 Urine Yeast (Auto) Mod.seem 12/08/18 11:50 RBC 4.54 MCV 75.0 L MCHC 34.0 RDW 18.7 H MPV 7.4 L Neutrophils % 70.0 Lymphocytes % 17.7 Monocytes % 11.2 H Eosinophils % 0.7 Basophils % 0.4 - RADIOLOGY Radiology Studies Ordered: Category Date Time Status HEAD CT WITHOUT CONTRAST [CT] Stat CT Scan 12/08/18 13:18 Completed RHONA [CHEST X-RAY PORTABLE*] [RAD] Stat Radiology 12/08/18 11:45 Completed - Medications Given in the ED: ED Medications Discontinued Medications Generic Name Dose Route Start Last Admin Trade Name Alex PRN Reason Stop Dose Admin Sodium Chloride 500 mls @ 500 mls/hr 12/08/18 10:56 12/08/18 11:58 Normal Saline - IV 12/08/18 11:55 500 mls/hr ASDIR STA Administration Lactated Ringer's 1,000 ml in 1,000 mls @ 150 mls/hr 12/08/18 12:00 12/08/18 13:24 Lactated Ringers Solution IV Not Given ASDIR KADEEM Sodium Chloride 500 mls @ 500 mls/hr 12/08/18 13:17 12/08/18 13:24 Normal Saline - IV 12/08/18 14:16 500 mls/hr ASDIR STA Administration Medical Decision Making - Medical Decision Making 12/08/18 16:54 Patient is a frail-appearing 78-year-old male with multiple comorbidities who presents with generalized weakness and loose watery stools for the past several weeks. In the ER, patient is awake and alert, nonfocal neurologically, with diffuse upper and lower extremity weakness but without focal neurological deficits. Patient is afebrile and normotensive. Patient's overall presentation is consistent with mild dehydration. CBC shows no significant leukocytosis or anemia. CMP reveals mildly elevated BUN/creatinine consistent with prerenal azotemia. Urinalysis consistent with pyuria. Urine cultures been obtained and IV ceftriaxone administered. CT of head obtained due to patient's frequent falls reveals no evidence of acute or subacute traumatic injury. Moderate atrophy is noted. Will continue to hydrate, will admit to med/surge for further treatment. *DC/Admit/Observation/Transfer Diagnosis at time of Disposition: Weakness, Dehydration Urinary tract infection Qualifiers: Urinary tract infection type: site unspecified Hematuria presence: without hematuria Qualified Code(s): N39.0 - Urinary tract infection, site not specified - Discharge Dispostion Condition at time of disposition: Fair Decision to Admit order: Yes - Referrals Referrals: Vikash Guerra MD [Primary Care Provider] - - Patient Instructions - Post Discharge Activity - Attestations Physician Attestion: 12/08/18 16:54 The documentation was prepared by the scribe under my direct supervision. I have reviewed the documentation which correctly represents the findings, medical decision-making and critical action taken by me.
[2018-12-08] MEDS ORDERED: CEFTRIAXONE 1 GM/50 ML BAG ONE (17:00)
--- NOTE | 2018-12-08 17:21 | HP ---
CHIEF COMPLAINT: Weakness and Diarrhea PCP: Dr. Aguilera HISTORY OF PRESENT ILLNESS: Patient is a 78 year old male with a Severe Systolic CHF (EF 25-30%), s/p ICD, CAD s/p CABG(tripple), PCI (4stents, last PCI 2-3 years ago), PAD s/p b/o fem- pop bypass, LE PCI with stenting, IDDM, Achalasia s/p Heller's myotomy, PUD s/p partial gastrectomy (Bilroth Type II) years ago, HTN, HLD, COPD (>60 pack year smoking history, stopped smoking 8 months ago, states he does not use his O2 at home, presents to the ED with x3 weeks of weakness and diarrhea for x4 weeks. Patient associates dyspnea on exertion with the weakness notes he can only walk a few steps before feeling exhausted and a headache. Ambulates with a cane. The patient notes that his diarrhea has occurred x5-6 times daily and is usually liquid in consistency. Patients has obvious memory issues, reoriented to the year and his birthday. No family at bedside. Patient gives permission to contact his Felisha, . Denies: ABD pain, CP, fever, chills, and recent sick contacts. Spoke with Felisha and she stated her has memory issues (has not been diagnosed with anything) and has recurrent UTIs. She states the patient has not been well the last couple of days and sleeping often, and a loss of appetite, and has a history of falling. explains that he still drives and confirms no longer smokes, but is using the Juul (a form of vaping). unable accompany to her own asthma problems. ER course was notable for: (1) Positive UA -1gm Ceftriaxone (2) 1 Liter Given Recent Travel: Denies PAST MEDICAL HISTORY: PAST SURGICAL HISTORY:CABG, b/l fem pop bypass, heller's myotomy, partial gastrectomy (Bilroth type II), cholecystectomy, inguinal hernia repair Social History: Smoking: Stopped smoking 8 months ago. Currently Vapes Alcohol: Denies Drugs: Denies Family History: Allergies pregabalin [From Lyrica] Allergy (Severe, Verified 09/27/18 15:47) vertigo/fainted HOME MEDICATIONS: Home Medications Medication Instructions Recorded Albuterol 0.083% Nebulizer Fatuma 1 neb NEB QID 12/08/18 [Ventolin 0.083%] Bimatoprost [Lumigan] 1 drop IO DAILY 12/08/18 Budesonide/Formeterol Fumarate 1 inh PO DAILY 12/08/18 [SYMBICORT 160/4.5mcg -] Carvedilol 3.125 mg PO BID 12/08/18 Clopidogrel Bisulfate [Plavix] 75 mg PO DAILY 12/08/18 Escitalopram Oxalate [Lexapro -] 20 mg PO DAILY 12/08/18 Furosemide [Lasix] 20 mg PO DAILY 12/08/18 Insulin Glargine,Hum.rec.anlog 100 unit SQ ASDIR 12/08/18 [Lantus] Insulin Lispro [Humalog] 100 unit SQ DAILY 12/08/18 Pantoprazole Sodium 40 mg PO DAILY 12/08/18 Rosuvastatin Calcium [Crestor] 20 mg PO DAILY 12/08/18 Sacubitril/Valsartan [Entresto 24 1 each PO DAILY 12/08/18 mg-26 mg Tablet] REVIEW OF SYSTEMS CONSTITUTIONAL: generalized weakness Absent: fever, chills, diaphoresis, malaise, , weight change, loss of appetite HEENT: Absent: rhinorrhea, nasal congestion, throat pain, throat swelling, difficulty swallowing, mouth swelling, ear pain, eye pain, visual changes CARDIOVASCULAR: Absent: chest pain, syncope, palpitations, irregular heart rate, lightheadedness , peripheral edema RESPIRATORY: Absent: cough, shortness of breath, dyspnea with exertion, orthopnea, wheezing, stridor, hemoptysis GASTROINTESTINAL: diarrhea (no eposodes in while in the ER) Absent: abdominal pain, abdominal distension, nausea, vomiting, , constipation, melena, hematochezia GENITOURINARY: Absent: dysuria, frequency, urgency, hesitancy, hematuria, flank pain, genital pain MUSCULOSKELETAL: Absent: myalgia, arthralgia, joint swelling, back pain, neck pain SKIN: Absent: rash, itching, pallor HEMATOLOGIC/IMMUNOLOGIC: Absent: easy bleeding, easy bruising, lymphadenopathy, frequent infections ENDOCRINE: Absent: unexplained weight gain, unexplained weight loss, heat intolerance, cold intolerance NEUROLOGIC: Absent: headache, focal weakness or paresthesias, dizziness, unsteady gait, seizure, mental status changes, bladder or bowel incontinence PSYCHIATRIC: Absent: anxiety, depression, suicidal or homicidal ideation, hallucinations. PHYSICAL EXAMINATION Vital Signs - 24 hr 12/08/18 12/08/18 12/08/18 09:29 12:25 16:00 Temperature 97.6 F Pulse Rate 85 Pulse Rate [ 60 Left] Respiratory 16 17 Rate Blood Pressure 114/52 L Blood Pressure 127/70 [Right Arm] O2 Sat by Pulse 98 99 96 Oximetry (%) GENERAL: Awake, alert, and fully oriented, in no acute distress. HEAD: Normal with no signs of trauma. EYES: Pupils equal, round and reactive to light, extraocular movements intact, sclera anicteric, conjunctiva clear. No lid lag. EARS, NOSE, THROAT: Ears normal, nares patent, oropharynx clear without exudates. Moist mucous membranes. NECK: Normal range of motion, supple without lymphadenopathy, JVD, or masses. LUNGS: Breath sounds equal, clear to auscultation bilaterally. No wheezes, and no crackles. HEART: Regular rate and rhythm, normal S1 and S2 ABDOMEN: Soft, nontender, not distended, normoactive bowel sounds, no guarding, no rebound, no masses. MUSCULOSKELETAL: Normal range of motion at all joints. No bony deformities or tenderness. UPPER EXTREMITIES: 2+ pulses, warm, well-perfused. No cyanosis. No clubbing. No peripheral edema. LOWER EXTREMITIES: 2+ pulses, warm, well-perfused. No calf tenderness. No peripheral edema. NEUROLOGICAL: Reoriented to correct birthday. Normal speech. Normal gait. PSYCHIATRIC: Appropriate mood and affect. SKIN: Warm, dry, normal turgor, no rashes or lesions noted, normal capillary refill. Laboratory Results - last 24 hr 12/08/18 12/08/18 12/08/18 11:50 11:50 12:09 WBC 5.5 RBC 4.54 Hgb 11.6 L Hct 34.0 L MCV 75.0 L MCH 25.5 L MCHC 34.0 RDW 18.7 H Plt Count 155 MPV 7.4 L Absolute Neuts (auto) 3.9 Neutrophils % 70.0 Lymphocytes % 17.7 Monocytes % 11.2 H Eosinophils % 0.7 Basophils % 0.4 Nucleated RBC % 0 Sodium 141 Potassium 3.7 Chloride 114 H Carbon Dioxide 18 L Anion Gap 9 BUN 46.8 H Creatinine 1.6 H Est GFR (CKD-EPI)AfAm 47.79 Est GFR (CKD-EPI)NonAf 41.23 Random Glucose 179 H Calcium 8.6 Magnesium 1.9 Total Bilirubin 0.6 AST 12 L ALT 20 Alkaline Phosphatase 99 Creatine Kinase 46 Troponin I < 0.02 Total Protein 6.9 Albumin 3.4 Lipase 213 Urine Color Yellow Urine Appearance Cloudy Urine pH 5.0 Ur Specific [place] 1.018 Urine Protein 2+ H Urine Glucose (UA) Negative Urine Ketones Negative Urine Blood Negative Urine Nitrite Negative Urine Bilirubin Negative Urine Urobilinogen 0.2 Ur Leukocyte Esterase 2+ H Urine WBC (Auto) 42 Urine RBC (Auto) 5 Urine Casts (Auto) 11 U Epithel Cells (Auto) 10.2 Urine Bacteria (Auto) 1.4 Urine Yeast (Auto) Mod.seem ASSESSMENT/PLAN: Patient is a 78 year old male with a Severe Systolic CHF (EF 25 -30%), s/p ICD, CAD s/p CABG(tripple), PCI (4stents, last PCI 2-3 years ago), PAD s/p b/o fem-pop bypass, LE PCI with stenting, IDDM, Achalasia s/p Heller's myotomy, PUD s/p partial gastrectomy (Bilroth Type II) years ago, HTN, HLD, COPD , presents to the ED with x3 weeks of weakness and diarrhea for x4 weeks, dyspnea on exertion, and Positive for UTI CHF -telemetry -s/p lasix 40 in ED -Continue home dose of lasix 20mg PO -I/O -Daily weights -Recently had echo 07/2018 -Cardiology Consulted- Dr. Crow UTI -1gm Ceftriaxone IV daily -Bladder Scan CKD III -GFR 41.23 -BUN: 46.8 Cr: 1.6 -monitor with Lasix Diarrhea -No episodes while in the ER -Received 1L NS in ER -If he has an episode, will do a C-Diff test HTN/HLD/CAD -Continue home meds --Entresto 24mg-26mg PO Once Daily --Coreg 3.125mg PO BID --Crestor 20mg PO HS --Plavix 75mg PO Daily COPD -stable -resume home inhalers -Consulted his Storage Management Consultant Dr. Darrell Hwang -Alert RN to make sure Pt eats sitting up -Dysphagia precautions DM -BGM ACHS -[id number]-0.4 -home dose levemir 54 sq HS FEN -po hydration -replete prn -low Na, DM diet DVT/Prophylaxis -Heparin 5000 units SQ BID -Bilateral SCDs -Continue home dose Protonix 40mg PO Dispo -Telemetry -Full Code Contact - Felisha [phone] Visit type - Emergency Visit Emergency Visit: Yes ED Registration Date: 12/08/18 Care time: The patient presented to the Emergency Department on the above date and was hospitalized for further evaluation of their emergent condition. - New Patient This patient is new to me today: Yes Date on this admission: 12/10/18 - Critical Care Critical Care patient: No
[2018-12-08] MEDS ORDERED: PATIENT'S OWN MEDICATION (NON-FORMULARY) (Bimatoprost [Lumigan] 1 DROP) IO SCH (17:30)
[2018-12-08] MEDS ORDERED: PATIENT'S OWN MEDICATION (NON-FORMULARY) (Insulin Glargine,Hum.Rec.Anlog [Lantus] 100 UNIT SQ SCH (17:30)
[2018-12-08] MEDS ORDERED: ESCITALOPRAM OXALATE 20 MG TABLET (FP) PO SCH (17:30)
[2018-12-08] MEDS ORDERED: SACUBITRIL/VALSARTAN 24 MG-26 MG TABLET PO SCH (17:30)
[2018-12-08] MEDS ORDERED: BUDESONIDE/FORMETEROL FUMARATE 160/4.5 mcg INHALER IH SCH (17:30)
[2018-12-08] MEDS ORDERED: PANTOPRAZOLE 40 MG TABLET (FP) PO SCH (17:30)
[2018-12-08] MEDS ORDERED: CLOPIDOGREL BISULFATE 75 MG TABLET (FP) PO SCH (17:30)
[2018-12-08] MEDS ORDERED: FUROSEMIDE 20 MG TABLET (FP) PO SCH (17:30)
[2018-12-08] MEDS ORDERED: PATIENT'S OWN MEDICATION (NON-FORMULARY) (Insulin Lispro [Humalog] 100 UNIT) SQ SCH (17:30)
[2018-12-08] MEDS: ALBUTEROL SO4 0.083% IH SOL 2.5 MG/3 ML VIAL.NEB. NEB SCH (21:23)
[2018-12-08 21:36] VITALS: BMI 24.7
[2018-12-08] MEDS ORDERED: INSULIN (LEVEMIR) 100 UNITS/ML UNITS SQ SCH (22:00)
[2018-12-08] MEDS ORDERED: HEPARIN NA (PORCINE) 5,000 UNITS/ML 1ML VIAL SQ SCH (22:00)
[2018-12-08] MEDS ORDERED: LATANOPROST 0.005% OPHTH SOLN 2.5ML BOTTLE OU SCH (22:00)
[2018-12-08] MEDS ORDERED: ROSUVASTATIN CA 20 MG TABLET (FP) PO SCH (22:00)
[2018-12-08] MEDS: CARVEDILOL 3.125 MG TABLET (FP) PO SCH (23:23)
[2018-12-08] MEDS: BUDESONIDE/FORMETEROL FUMARATE 160/4.5 mcg INHALER IH SCH (23:24)
[2018-12-08] MEDS: INSULIN SLIDING SCALE (NOVOLOG) 1 VIAL SQ SCH (23:29)
[2018-12-08] MEDS ORDERED: PT OWN MED DRAWER 7, Y5N ONE (23:51)
[2018-12-09] MEDS: INSULIN SLIDING SCALE (NOVOLOG) 1 VIAL SQ SCH ×2 (06:12→12:14)
--- NOTE | 2018-12-09 07:29 | PN ---
Progress Note, Physician Chief Complaint: weakness & diarrhea History of Present Illness: Patient is a 78 year old male with a Severe Systolic CHF (EF 25-30%), s/p ICD, CAD s/p CABG(tripple), PCI (4stents, last PCI 2-3 years ago), PAD s/p b/o fem- pop bypass, LE PCI with stenting, IDDM, Achalasia s/p Heller's myotomy, PUD s/p partial gastrectomy (Bilroth Type II) years ago, HTN, HLD, COPD (>60 pack year smoking history, stopped smoking 8 months ago, states he does not use his O2 at home, presents to the ED with x3 weeks of weakness and diarrhea for x4 weeks. Patient associates dyspnea on exertion with the weakness notes he can only walk a few steps before feeling exhausted and a headache. Ambulates with a cane. The patient notes that his diarrhea has occurred x5-6 times daily and is usually liquid in consistency. Patients has obvious memory issues, reoriented to the year and his birthday. No family at bedside. Patient gives permission to contact his Felisha, . Denies: ABD pain, CP, fever, chills, and recent sick contacts. Spoke with Felisha and she stated her has memory issues (has not been diagnosed with anything) and has recurrent UTIs. She states the patient has not been well the last couple of days and sleeping often, and a loss of appetite, and has a history of falling. explains that he still drives and confirms no longer smokes, but is using the Juul (a form of vaping). unable accompany to her own asthma problems. ER course was notable for: (1) Positive UA -1gm Ceftriaxone (2) 1 Liter Given - Current Medication List Current Medications: Active Medications Albuterol Sulfate (Ventolin 0.083% Nebulizer Soln -) 1 amp NEB RQID [facility] Last Admin: 12/08/18 21:23 Dose: 1 amp Budesonide/Formoterol Fumarate (Symbicort 160/4.5mcg -) 1 puff IH BID [facility] Last Admin: 12/08/18 23:24 Dose: 1 puff Carvedilol (Coreg -) 3.125 mg PO BID [facility] Last Admin: 12/08/18 23:23 Dose: 3.125 mg Clopidogrel Bisulfate (Plavix -) 75 mg PO DAILY [facility] Escitalopram Oxalate (Lexapro -) 20 mg PO DAILY [facility] Furosemide (Lasix -) 20 mg PO DAILY [facility] Heparin Sodium (Porcine) (Heparin -) 5,000 unit SQ BID [facility] Ceftriaxone Sodium 1 gm/ (Dextrose) 50 mls @ 100 mls/hr IVPB DAILY [facility]; Protocol Insulin Aspart (Novolog Vial Sliding Scale -) 1 vial SQ ACHS [facility]; Protocol Last Admin: 12/09/18 06:12 Dose: Not Given Insulin Detemir (Levemir Vial) 54 units SQ HS [facility] Last Admin: 12/08/18 23:51 Dose: 54 units Latanoprost (Xalatan 0.005% Eye Drops -) 1 drop OU HS [facility] Last Admin: 12/08/18 23:24 Dose: 1 drop Pantoprazole Sodium (Protonix -) 40 mg PO DAILY [facility] Rosuvastatin Calcium (Crestor -) 20 mg PO HS [facility] Last Admin: 12/08/18 23:23 Dose: 20 mg Sacubitril/Valsartan (Entresto 24 Mg-26 Mg Tablet) 1 tab PO DAILY [facility] - Objective Vital Signs: Vital Signs Temperature 97.7 F 12/09/18 06:17 Pulse Rate 52 L 12/09/18 06:17 Respiratory Rate 20 12/09/18 06:17 Blood Pressure 138/57 L 12/09/18 06:17 O2 Sat by Pulse Oximetry (%) 97 12/08/18 16:58 Labs: CBC, BMP 12/08/18 11:50 12/08/18 11:50
[2018-12-09] MEDS: ALBUTEROL SO4 0.083% IH SOL 2.5 MG/3 ML VIAL.NEB. NEB SCH ×2 (08:00→12:00)
[2018-12-09 08:07] LABS: BASO % 0.5 % (0-2.0); HEMOGLOBIN 11.1 GM/dL (11.7-16.9); LYMPH % 11.4 % (8-40); MCH 25.5 pg (25.7-33.7); MCHC 33.6 g/dl (32.0-35.9); MEAN CELL VOLUME 75.9 fl (80-96); MEAN PLT VOLUME 7.7 fl (7.5-11.1); MONO % 9.7 % (3.8-10.2); NEUT % 77.4 % (42.8-82.8); PLATELET COUNT 150 K/MM3 (134-434); RBC 4.34 M/mm3 (4.00-5.60); RDW 18.6 % (11.9-15.9); WHITE BLOOD COUNT 6.7 K/mm3 (4.0-10.0)
[2018-12-09 08:32] LABS: ALBUMIN 3.1 g/dl (3.4-5.0); BILIRUBIN,TOTAL 0.3 mg/dL (0.2-1); BLOOD UREA NITROGEN 30.6 mg/dL (7-18); CALCIUM 8.6 mg/dL (8.5-10.1); CREATININE 1.2 mg/dL (0.55-1.3); TOT PROT 6.3 g/dl (6.4-8.2)
[2018-12-09] MEDS ORDERED: ESCITALOPRAM OXALATE 10 MG TABLET (FP) ONE (09:54)
[2018-12-09] MEDS ORDERED: DEXTROSE 5%-WATER - 50 ML IVPB ONE (09:55)
[2018-12-09] MEDS ORDERED: cefTRIAXone SODIUM 1 GM VIAL ONE (09:55)
[2018-12-09] MEDS ORDERED: HEPARIN NA (PORCINE) 5,000 UNITS/ML 1ML VIAL SQ SCH (10:00)
[2018-12-09] MEDS ORDERED: CEFTRIAXONE 1 GM in DEXTROSE 5%-WATER - 50 ML IVPB SCH (10:00)
[2018-12-09] MEDS: CARVEDILOL 3.125 MG TABLET (FP) PO SCH (10:38)
[2018-12-09] MEDS: BUDESONIDE/FORMETEROL FUMARATE 160/4.5 mcg INHALER IH SCH (10:39)
[2018-12-09] MEDS ORDERED: levoFLOXacin 750 MG TABLET PO SCH (10:45)
[2018-12-09 10:49] VITALS: BP 139/91; PULSE 73; TEMP 98.4
--- NOTE | 2018-12-09 12:44 | DS ---
Physical Exam: SUBJECTIVE: Patient seen and examined Patient is a 78 year old male with a Severe Systolic CHF (EF 25-30%), s/p ICD, CAD s/p CABG(tripple), PCI (4stents, last PCI 2-3 years ago), PAD s/p b/o fem- pop bypass, LE PCI with stenting, IDDM, Achalasia s/p Heller's myotomy, PUD s/p partial gastrectomy (Bilroth Type II) years ago, HTN, HLD, COPD (>60 pack year smoking history, stopped smoking 8 months ago, states he does not use his O2 at home, presents to the ED with x3 weeks of weakness and diarrhea for x4 weeks. Patient associates dyspnea on exertion with the weakness notes he can only walk a few steps before feeling exhausted and a headache. Ambulates with a cane. Denies: ABD pain, CP, fever, chills, and recent sick contacts. OBJECTIVE: Vital Signs Period Temp Pulse Resp BP Sys/Garcia Pulse Ox Last 24 Hr 97.7 F-98.4 F 52-73 16-20 127-155/57-91 96-97 PHYSICAL EXAM GENERAL: The patient is awake, alert, and fully oriented, in no acute distress. HEAD: Normal with no signs of trauma. EYES: PERRL, extraocular movements intact, sclera anicteric, conjunctiva clear. ENT: Ears normal, nares patent, oropharynx clear without exudates, moist mucous membranes. NECK: Trachea midline, full range of motion, supple. LUNGS: Breath sounds equal, clear to auscultation bilaterally, no wheezes, no crackles, no accessory muscle use. HEART: Regular rate and rhythm, S1, S2 without murmur, rub or gallop. ABDOMEN: Soft, nontender, nondistended, normoactive bowel sounds, no guarding, no rebound, no hepatosplenomegaly, no masses. EXTREMITIES: 2+ pulses, warm, well-perfused, no edema. NEUROLOGICAL: Cranial nerves II through XII grossly intact. Normal speech, gait not observed. PSYCH: Normal mood, normal affect. SKIN: Warm, dry, normal turgor, no rashes or lesions noted. LABS Laboratory Results - last 24 hr 12/08/18 12/08/18 12/08/18 11:50 12:09 17:22 WBC RBC Hgb Hct MCV MCH MCHC RDW Plt Count MPV Absolute Neuts (auto) Neutrophils % Lymphocytes % Monocytes % Eosinophils % Basophils % Nucleated RBC % Sodium 141 Potassium 3.7 Chloride 114 H Carbon Dioxide 18 L Anion Gap 9 BUN 46.8 H Creatinine 1.6 H Est GFR (CKD-EPI)AfAm 47.79 Est GFR (CKD-EPI)NonAf 41.23 POC Glucometer Random Glucose 179 H Hemoglobin A1c % 7.4 H Calcium 8.6 Magnesium 1.9 Total Bilirubin 0.6 AST 12 L ALT 20 Alkaline Phosphatase 99 Creatine Kinase 46 Troponin I < 0.02 B-Natriuretic Peptide Total Protein 6.9 Albumin 3.4 Lipase 213 Urine Yeast (Auto) Mod.seem 12/08/18 12/08/18 12/09/18 20:30 22:47 05:14 WBC RBC Hgb Hct MCV MCH MCHC RDW Plt Count MPV Absolute Neuts (auto) Neutrophils % Lymphocytes % Monocytes % Eosinophils % Basophils % Nucleated RBC % Sodium Potassium Chloride Carbon Dioxide Anion Gap BUN Creatinine Est GFR (CKD-EPI)AfAm Est GFR (CKD-EPI)NonAf POC Glucometer 151 55 Random Glucose Hemoglobin A1c % Calcium Magnesium Total Bilirubin AST ALT Alkaline Phosphatase Creatine Kinase Troponin I B-Natriuretic Peptide 936.9 H Total Protein Albumin Lipase Urine Yeast (Auto) 12/09/18 12/09/18 12/09/18 06:02 07:30 07:30 WBC 6.7 RBC 4.34 Hgb 11.1 L Hct 33.0 L MCV 75.9 L MCH 25.5 L MCHC 33.6 RDW 18.6 H Plt Count 150 MPV 7.7 Absolute Neuts (auto) 5.2 Neutrophils % 77.4 Lymphocytes % 11.4 D Monocytes % 9.7 Eosinophils % 1.0 Basophils % 0.5 Nucleated RBC % 0 Sodium 142 Potassium 4.0 Chloride 113 H Carbon Dioxide 24 Anion Gap 4 L BUN 30.6 H Creatinine 1.2 Est GFR (CKD-EPI)AfAm 67.67 Est GFR (CKD-EPI)NonAf 58.39 POC Glucometer 126 Random Glucose 80 Hemoglobin A1c % Calcium 8.6 Magnesium Total Bilirubin 0.3 AST 27 ALT 27 Alkaline Phosphatase 90 Creatine Kinase Troponin I B-Natriuretic Peptide Total Protein 6.3 L Albumin 3.1 L Lipase Urine Yeast (Auto) 12/09/18 11:56 WBC RBC Hgb Hct MCV MCH MCHC RDW Plt Count MPV Absolute Neuts (auto) Neutrophils % Lymphocytes % Monocytes % Eosinophils % Basophils % Nucleated RBC % Sodium Potassium Chloride Carbon Dioxide Anion Gap BUN Creatinine Est GFR (CKD-EPI)AfAm Est GFR (CKD-EPI)NonAf POC Glucometer 139 Random Glucose Hemoglobin A1c % Calcium Magnesium Total Bilirubin AST ALT Alkaline Phosphatase Creatine Kinase Troponin I B-Natriuretic Peptide Total Protein Albumin Lipase Urine Yeast (Auto) HOSPITAL COURSE: Date of Admission:12/08/18 Date of Discharge: 12/09/18 ASSESSMENT/PLAN: Patient is a 78 year old male with a Severe Systolic CHF (EF 25 -30%), s/p ICD, CAD s/p CABG(tripple), PCI (4stents, last PCI 2-3 years ago), PAD s/p b/o fem-pop bypass, LE PCI with stenting, IDDM, Achalasia s/p Heller's myotomy, PUD s/p partial gastrectomy (Bilroth Type II) years ago, HTN, HLD, COPD , presents to the ED with x3 weeks of weakness and diarrhea for x4 weeks, dyspnea on exertion, and Positive for UTI CHF Pt with history of chronic CHF -given lasix 40 in ED -Continue dose of lasix 20mg PO after dc UTI -1gm Ceftriaxone IV given History of recurrent UTI. Treatment last admission with Levaquin. No complaints of urinary symptoms. Can convert to oral Levaquin for 5 additional days -instructed patient to wempty bladder frequently and stay hydrated CKD III -GFR 41.23 -BUN: 46.8 Cr: 1.6 on admission. Now 1.2 -c/w with Lasix Diarrhea -No episodes while in the ER -patient now denies any episode of diarrhea over last month HTN/HLD/CAD -Continue antihypertensive meds upon dc --Entresto 24mg-26mg PO Once Daily --Coreg 3.125mg PO BID --Crestor 20mg PO HS --Plavix 75mg PO Daily COPD -stable -resume home inhalers Achalasia -Alert RN to make sure Pt eats sitting up -Dysphagia precautions DM -BGM ACHS -ANN8w-9.4 -continue levemir 54 sq HS upon discharge FEN PO intake adequate -continue low Na, DM diet on DC DVT/Prophylaxis -Heparin 5000 units SQ BID which in patient no need for anticoagulation at home Dispo Patient may return to home with 5 days of antiobiotcs Minutes to complete discharge: 45 Discharge Summary Reason For Visit: UTI Current Active Problems Dehydration (Acute) Generalized weakness (Acute) Urinary tract infection (Acute) Hospital Course: ASSESSMENT/PLAN: Patient is a 78 year old male with a Severe Systolic CHF (EF 25 -30%), s/p ICD, CAD s/p CABG(tripple), PCI (4stents, last PCI 2-3 years ago), PAD s/p b/o fem-pop bypass, LE PCI with stenting, IDDM, Achalasia s/p Heller's myotomy, PUD s/p partial gastrectomy (Bilroth Type II) years ago, HTN, HLD, COPD , presents to the ED with x3 weeks of weakness and diarrhea for x4 weeks, dyspnea on exertion, and Positive for UTI CHF Pt with history of chronic CHF -given lasix 40 in ED -Continue dose of lasix 20mg PO after dc UTI -1gm Ceftriaxone IV given History of recurrent UTI. Treatment last admission with Levaquin. No complaints of urinary symptoms. Can convert to oral Levaquin for 5 additional days -instructed patient to wempty bladder frequently and stay hydrated CKD III -GFR 41.23 -BUN: 46.8 Cr: 1.6 on admission. Now 1.2 -c/w with Lasix Diarrhea -No episodes while in the ER -patient now denies any episode of diarrhea over last month HTN/HLD/CAD -Continue antihypertensive meds upon dc --Entresto 24mg-26mg PO Once Daily --Coreg 3.125mg PO BID --Crestor 20mg PO HS --Plavix 75mg PO Daily COPD -stable -resume home inhalers Achalasia -Alert RN to make sure Pt eats sitting up -Dysphagia precautions DM -BGM ACHS -GUI7b-1.4 -continue levemir 54 sq HS upon discharge FEN PO intake adequate -continue low Na, DM diet on DC DVT/Prophylaxis -Heparin 5000 units SQ BID which in patient no need for anticoagulation at home Dispo Patient may return to home with 5 days of antiobiotcs Condition: Improved - Instructions Diet, Activity, Other Instructions: You were admitted with a urinary tract infection. Because of your history of frequent urinary tract infection and bacteria in the urine antibiotics were started. You should take Levaquin for a total of 5 days. If you develop and fevers call Dr North. Continue to drink fluids to flush your kidneys. Try to empty your bladder frequently-do not let urine sit in your bladder as bacteria can grow. The physical therapist saw you and recommended that you use the walker when ambulating. Referrals: Viaksh Guerra MD [Primary Care Provider] - Disposition: HOME - Home Medications Comprehensive Discharge Medication List: Ambulatory Orders Albuterol 0.083% Nebulizer Fatuma [Ventolin 0.083%] 1 neb NEB QID 12/08/18 Bimatoprost [Lumigan] 1 drop IO DAILY 12/08/18 Budesonide/Formeterol Fumarate [SYMBICORT 160/4.5mcg -] 1 inh PO DAILY 12/08/18 Carvedilol 3.125 mg PO BID 12/08/18 Clopidogrel Bisulfate [Plavix] 75 mg PO DAILY 12/08/18 Escitalopram Oxalate [Lexapro -] 20 mg PO DAILY 12/08/18 Furosemide [Lasix] 20 mg PO DAILY 12/08/18 Insulin Glargine,Hum.rec.anlog [Lantus] 100 unit SQ ASDIR 12/08/18 Insulin Lispro [Humalog] 100 unit SQ DAILY 12/08/18 Pantoprazole Sodium 40 mg PO DAILY 12/08/18 Rosuvastatin Calcium [Crestor] 20 mg PO DAILY 12/08/18 Sacubitril/Valsartan [Entresto 24 mg-26 mg Tablet] 1 each PO DAILY 12/08/18 levoFLOXacin [Levaquin] 750 mg PO DAILY #5 tab 12/09/18 This patient is new to me today: Yes Date on this admission: 12/09/18 Emergency Visit: No Critical Care patient: No - Discharge Referral Referred to [facility] No
== END 2018-12-09 13:46 | disposition home or self-care (01) | DRG 690 ==
LOC: JER 09:24 → JERBED 16:58 → J5S 18:34 → J4S 23:40
PROVIDERS: ADMIT Internal Medicine; ATTEND Nurse Practitioner Acute Care
DX: N39.0 Urinary tract infection, site not specified (principal); I13.0 Hypertensive heart and chronic kidney disease with heart failure and stage 1 through stage 4 chronic kidney disease, or unspecified chronic kidney disease; I50.22 Chronic systolic (congestive) heart failure; E11.22 Type 2 diabetes mellitus with diabetic chronic kidney disease; N18.3 Chronic kidney disease, stage 3 (moderate); J44.9 Chronic obstructive pulmonary disease, unspecified; E86.0 Dehydration; K22.0 Achalasia of cardia; Z90.3 Acquired absence of stomach [part of]; I25.10 Atherosclerotic heart disease of native coronary artery without angina pectoris; E78.5 Hyperlipidemia, unspecified; R19.7 Diarrhea, unspecified; R53.1 Weakness; I73.9 Peripheral vascular disease, unspecified; Z79.4 Long term (current) use of insulin; Z95.5 Presence of coronary angioplasty implant and graft; Z95.1 Presence of aortocoronary bypass graft; Z87.891 Personal history of nicotine dependence
CPT/HCPCS: 36415; 70450-TC; 71045-TC-FY; 80053; 81003; 82550; 82962; 83036; 83690; 83735; 83880; 84484; 85025; 87077; 87086; 93005; 93010; 94640; 97116-GP; 97161-GP; 99285-25; J1644

== ENCOUNTER 2018-12-12 17:49 | Inpatient (IN) | payer OTHER, MEDICARE ==
[2018-12-12 17:53] VITALS: BMI 25.1
--- NOTE | 2018-12-12 18:52 | PDOC ---
History of Present Illness - General Chief Complaint: Shortness of Breath Stated Complaint: SHORT OF BREATH Time Seen by Provider: 12/12/18 17:57 History Source: Patient Exam Limitations: No Limitations - History of Present Illness Initial Comments: 78 year old male with a systolic CHF (EF 25-30%), s/p ICD, CAD s/p CABG(triple) , PCI (4 stents, last PCI 2-3 years ago), PAD s/p fem-pop bypass, IDDM, achalasia s/p Heller's myotomy, PUD s/p partial gastrectomy (Bilroth Type II) years ago, HTN, HLD, COPD (>60 pack year smoking history), p/w SOB and AVILA. Of note, was seen here 12/08/18 and found to have UTI. Says that he has been more tired than usual for the last 3 days, with AVLIA when walking even a few steps. Also complains of general unwellness, and believes that his sugars might be running low. Denies CP, abdominal pain, SAWYER, palpitations. Endorses pre-syncope that feels like "I'm going to pass out", but has not had any LOC. 12/12/18 18:36 12/12/18 19:01 Past History - Past Medical History Allergies/Adverse Reactions: Allergies Allergy/AdvReac Type Severity Reaction Status Date / Time pregabalin [From Lyrica] Allergy Severe Verified 12/12/18 17:52 Home Medications: Ambulatory Orders Bimatoprost [Lumigan] 1 drop IO DAILY 12/08/18 Budesonide/Formeterol Fumarate [SYMBICORT 160/4.5mcg -] 1 inh PO DAILY 12/08/18 Carvedilol 3.125 mg PO BID 12/08/18 Clopidogrel Bisulfate [Plavix] 75 mg PO DAILY 12/08/18 Escitalopram Oxalate [Lexapro -] 20 mg PO DAILY 12/08/18 Furosemide [Lasix] 20 mg PO DAILY 12/08/18 Insulin Glargine,Hum.rec.anlog [Lantus] 100 unit SQ ASDIR 12/08/18 Insulin Lispro [Humalog] 100 unit SQ DAILY 12/08/18 Pantoprazole Sodium 40 mg PO DAILY 12/08/18 Rosuvastatin Calcium [Crestor] 20 mg PO DAILY 12/08/18 Sacubitril/Valsartan [Entresto 24 mg-26 mg Tablet] 1 each PO DAILY 12/08/18 Insulin Sliding Scale [Novolog Vial Sliding Scale -] 1 vial SQ ACHS units 12/13 Anemia: No Asthma: No Cancer: No Cardiac Disorders: Yes (4 stents, triple bypass) CVA: No COPD: Yes CHF: No Dementia: No Diabetes: Yes GI Disorders: No Disorders: No HTN: No Hypercholesterolemia: Yes Kidney Stones: No Liver Disease: No Psychiatric Problems: No Seizures: No Thyroid Disease: No Lung CA: No - Surgical History Abdominal Surgery: Yes (PARTIAL GASTRECTOMY,H/O ULCERS EGD BIOPSY 2009,EGD H- PYLORI 2006,COLON 2003) Appendectomy: Yes Cardiac Surgery: Yes Cholecystectomy: Yes Lung Surgery: No Neurologic Surgery: No Orthopedic Surgery: No - Family Disease History Family Disease History: Heart Disease: Father - Reproductive History Testicular Surgery: Yes - Immunization History Immunization Up to Date: Yes - Suicide/Smoking/Psychosocial Hx Smoking Status: Yes Smoking History: Former smoker Years of Tobacco Use: 50 Have you smoked in the past 12 months: No Number of Cigarettes Smoked Daily: 5 If you are a former smoker, when did you quit?: FEW MONTHS Information on smoking cessation initiated: No 'Breaking Loose' booklet given: 07/01/18 Hx Alcohol Use: No Drug/Substance Use Hx: No Substance Use Type: Alcohol Hx Substance Use Treatment: No Review of Systems - Review of Systems Able to Perform ROS?: Yes Constitutional: Yes: Other (fatigue). No: Chills, Fever HEENTM: Yes: Difficulty Swallowing (known hx achalasia). No: Recent change in vision, Throat Swelling Cardiac (ROS): Yes: Other (pre-syncope). No: Chest Pain, Palpitations ABD/GI: No: Constipated, Diarrhea, Nausea, Vomiting : No: Burning, Dysuria, Discharge, Frequency, Flank Pain Neurological: No: Headache *Physical Exam - Vital Signs Last Vital Signs Temp Pulse Resp BP Pulse Ox 97 F L 71 18 97/50 L 99 12/12/18 17:50 12/12/18 17:50 12/12/18 17:50 12/12/18 17:50 12/12/18 17:50 - Physical Exam General Appearance: Yes: Nourished, Appropriately Dressed. No: Apparent Distress HEENT: positive: EOMI, FAVIOLA, Normal ENT Inspection, Normal Voice, Symmetrical, Pharynx Normal, Hearing Decreased (a little hard of hearing) Neck: positive: Normal Thyroid, Supple. negative: Tender Respiratory/Chest: positive: Lungs Clear, Normal Breath Sounds. negative: Chest Tender, Respiratory Distress, Accessory Muscle Use Cardiovascular: positive: Regular Rhythm, Regular Rate Gastrointestinal/Abdominal: positive: Normal Bowel Sounds, Soft. 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 12/12/18 20:06 BNP 3769.9 12/12/18 20:28 Cr 1.4, giving 40 Lasix 12/12/18 20:36 Glu 67, given orange juice 12/12/18 20:36 *DC/Admit/Observation/Transfer Diagnosis at time of Disposition: Shortness of breath - Discharge Dispostion Disposition: HOME Condition at time of disposition: Improved - Referrals - Patient Instructions - Post Discharge Activity
[2018-12-12 19:59] LABS: BASO % 0.5 % (0-2.0); EOS % 0.7 % (0-4.5); HEMATOCRIT 34.6 % (35.4-49); HEMOGLOBIN 11.7 GM/dL (11.7-16.9); LYMPH % 12.3 % (8-40); MCH 25.5 pg (25.7-33.7); MCHC 33.7 g/dl (32.0-35.9); MEAN CELL VOLUME 75.8 fl (80-96); MEAN PLT VOLUME 7.7 fl (7.5-11.1); MONO % 7.5 % (3.8-10.2); PLATELET COUNT 172 K/MM3 (134-434); RBC 4.57 M/mm3 (4.00-5.60); RDW 18.9 % (11.9-15.9); WHITE BLOOD COUNT 6.8 K/mm3 (4.0-10.0)
[2018-12-12 20:25] LABS: MAGNESIUM 1.8 mg/dL (1.8-2.4); N-TERMINAL BNP 3769.9 pg/ml (5-450)
[2018-12-12 20:30] LABS: ALBUMIN 3.3 g/dl (3.4-5.0); BILIRUBIN,TOTAL 0.3 mg/dL (0.2-1); BLOOD UREA NITROGEN 26.4 mg/dL (7-18); CREATININE 1.4 mg/dL (0.55-1.3); POTASSIUM 3.7 mmol/L (3.5-5.1); TOT PROT 6.7 g/dl (6.4-8.2)
[2018-12-12] MEDS ORDERED: FUROSEMIDE 40 MG/4 ML INJECTABLE VIAL IVPUSH ONE ×2 (20:33→21:11)
[2018-12-12] MEDS ORDERED: FUROSEMIDE 40 MG/4 ML INJECTABLE VIAL ONE (20:47)
[2018-12-12] MEDS ORDERED: SODIUM CHLORIDE 250 ML IV STA (20:51)
[2018-12-12] MEDS ORDERED: ACETAMINOPHEN 325 MG TABLET (FP) PO PRN (21:47)
[2018-12-12] MEDS ORDERED: INSULIN SLIDING SCALE (NOVOLOG) 1 VIAL SQ SCH (22:00)
--- NOTE | 2018-12-12 22:01 | PN ---
Teaching Attending Note Name of Resident: Osman Johnson ATTENDING PHYSICIAN STATEMENT I saw and evaluated the patient. I reviewed the resident's note and discussed the case with the resident. I agree with the resident's findings and plan as documented. Seen and examined; recently admitted for UTI but had documented worsening SOB at that point. BNP 900 at that time 3k now which is consistent with prior admissions for CHF albeit with somewhat worse renal function (now 1.4 Cr with known CKD). He is saturating 100% on RA per ER vitals. NYHA-II sx at baseline. His accompanies him and they are both complaining of similar symptoms. He is on 20 lasix at home daily per his med list. Notably, he was discharged on abx for UTI but no significant # CFUs seen on culture. PMH ( Severe CHF 25-30% s/p AICD), CAD s/p CABG (>2 years ago), PAD s/p fem-pop bypass , LE PCI, IDDM, Achalasia s/p Heller's myotomy with residual dysphagia, PUD s/p partial gastrectomy (Bilroth Type II), HTN, HLD, COPD with 60 pack year history (now non-smoker). He will be placed on tele. I am informed ER spoke with his driver operator. VS, labs, imaging reviewed VS, labs, imaging reviewed NAD, AAO, resting in bed NC AT EOMI PERRLA RRR s1/2 no mgr Minimal crackles, w/ sym exp NT ND +BS CN2-12 wnl, no fnd EKG reviewed Prior echo reviewed; CXR reviewed ASSESSMENT AND PLAN: Patient with history of CHF presents with worsening AVILA but satting 100% on RA; BNP elevated. Will diurese and followup with his driver operator. Severe baseline disease but patient himself appears relatively stable at this juncture. # Severe systolic CHF, NYHA-II at baseline, 2/2 ischemic CM # CAD s/p CABG, PCI # PAD s/p bypass # Hx PUD # Hx Achlasia # Chronic dysphagia # Hx HTN # Hx HLD # Hx COPD, former smoker # Hx DM # Hx CKD # Recently diagnoses cystitis with low number CFUs on cx, persistently + UA Full code
--- NOTE | 2018-12-12 22:12 | PDOC ---
Documentation entered by Dhruv Gordillo SCRIBE, acting as scribe for Lizeth Caal MD. Lizeth Caal MD: This documentation has been prepared by the Duy looney Daniel, SCRIBE, under my direction and personally reviewed by me in its entirety. I confirm that the documentation accurately reflects all work, treatment, procedures, and medical decision making performed by me. Attending Attestation - Resident Resident Name: Scooby Lovell - ED Attending Attestation I have performed the following: I have examined & evaluated the patient, The case was reviewed & discussed with the resident, I agree w/resident's findings & plan - HPI HPI: 12/12/18 19:43 The patient is a 78 year old male with a past medical history of systolic CHF ( ejection fraction 25-30%, s/p ICD), CAD s/p CABGx3, PCI (4 stents last was 3 years ago), insulin dependent diabetes, peripheral artery disease s/p fem-pop bypass, achalasia s/p Hellers myotomy, peptic ulcer disease s/p partial gastrectomy (Bilroth type 2), HTN, HLD, and COPD here today for evaluation of shortness of breath. Patient notes that he has shortness of breath and dyspnea on exertion for the past couple of weeks which has been getting worse the past few days. He also notes having presyncopal episodes where he feels like he is going to pass out but denies any loss of consciousness. Patient denies headache, lightheadedness. Denies fever, chills. Denies chest pain. Denies nausea, vomiting, diarrhea, abdominal pain. Allergies: pregabalin - Physicial Exam PE: 12/12/18 20:51 GENERAL: Awake, alert, and fully oriented, in no acute distress HEAD: No signs of trauma EYES: PERRLA, EOMI, sclera anicteric, conjunctiva clear ENT: Auricles normal inspection, hearing grossly normal, nares patent, oropharynx clear without exudates. Moist mucosa NECK: Normal ROM, supple, no lymphadenopathy, JVD, or masses LUNGS: Breath sounds equal, clear to auscultation bilaterally. No wheezes, and no crackles HEART: Regular rate and rhythm, normal S1 and S2, no murmurs, rubs or gallops ABDOMEN: Soft, nontender, normoactive bowel sounds. No guarding, no rebound. No masses EXTREMITIES: +surgical scars on bilateral lower extremities from vein harvesting. Normal range of motion, no edema. No clubbing or cyanosis. No cords , erythema, or tenderness NEUROLOGICAL: Cranial nerves II through XII grossly intact. Normal speech, normal gait SKIN: Warm, Dry, normal turgor, no rashes or lesions noted. - Medical Decision Making 12/18/18 20:07 Pt has renal insufficiency and other labs are normal. BNP is slightly elevated. 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 Morales is aware he is admitted.
--- NOTE | 2018-12-12 22:17 | HP ---
CHIEF COMPLAINT: SOB PCP: Dr. Jo HISTORY OF PRESENT ILLNESS: 78 y/o M, w/ an extensive PMH including systolic CHF, CAD, PAD. IDDM, HTN, HLD, COPD, s/p Hellers myotomy presents to the ED w/ c/o of SOB on exertion and fatigue of several month duration. Pt states that he has had these symptoms intermittently multiple times and he comes into the hospital for each episode. This episode started when he was walking and he became severely SOB. He c/o of no other symptoms and reports the symptoms have been the same for several months. Currently pt is stable and feeling better w/ pulseO2 wnl. He has refused BiPaP mask in the past. Pt is compliant with medications and denies changes in diet. Denies fevers, chills, n/v, chest pain, palpitations, weight changes. ROS is negative. ER course was notable for: (1)CXR ordered- pending read (2)BNP- 3769.9 (3)EKG- no significant changes Recent Travel: denies PAST MEDICAL HISTORY: CHF, CAD, PAD. IDDM, HTN, HLD, COPD, CABG, PAD, achalasia, hernia, cataract, Hellers myotomy, PAST SURGICAL HISTORY: Open heart surgery- CABG, PAD- Fem-Pop bypass graft, hernia surgery, myotomy- achalasia, cataract surgery- right eye, No colonoscopy done, Gastric bypass- [place] Social History: Smoking: former smoker- 2-3 ppd Alcohol:denies Drugs: denies Family History: Mother- of cancer- "blood cancer", father Allergies pregabalin [From Lyrica] Allergy (Severe, Verified 12/12/18 17:52) vertigo/fainted HOME MEDICATIONS: Home Medications Medication Instructions Recorded Albuterol 0.083% Nebulizer Fatuma 1 neb NEB QID 12/08/18 [Ventolin 0.083%] Bimatoprost [Lumigan] 1 drop IO DAILY 12/08/18 Budesonide/Formeterol Fumarate 1 inh PO DAILY 12/08/18 [SYMBICORT 160/4.5mcg -] Carvedilol 3.125 mg PO BID 12/08/18 Clopidogrel Bisulfate [Plavix] 75 mg PO DAILY 12/08/18 Escitalopram Oxalate [Lexapro -] 20 mg PO DAILY 12/08/18 Furosemide [Lasix] 20 mg PO DAILY 12/08/18 Insulin Glargine,Hum.rec.anlog 100 unit SQ ASDIR 12/08/18 [Lantus] Insulin Lispro [Humalog] 100 unit SQ DAILY 12/08/18 Pantoprazole Sodium 40 mg PO DAILY 12/08/18 Rosuvastatin Calcium [Crestor] 20 mg PO DAILY 12/08/18 Sacubitril/Valsartan [Entresto 24 1 each PO DAILY 12/08/18 mg-26 mg Tablet] REVIEW OF SYSTEMS CONSTITUTIONAL: Absent: fever, chills, diaphoresis, generalized weakness, malaise, loss of appetite, weight change HEENT: Absent: visual changes CARDIOVASCULAR: Absent: chest pain, syncope, palpitations, irregular heart rate, lightheadedness , peripheral edema RESPIRATORY: Absent: cough, shortness of breath, dyspnea with exertion, orthopnea, wheezing, hemoptysis GASTROINTESTINAL: Absent: abdominal pain, abdominal distension, nausea, vomiting, diarrhea, constipation, melena, MUSCULOSKELETAL: Absent: joint swelling, back pain, neck pain SKIN: Absent: rash, itching, pallor NEUROLOGIC: Absent: headache, focal weakness or paresthesias, dizziness, unsteady gait, seizure, mental status changes, bladder or bowel incontinence PSYCHIATRIC: Absent: anxiety, depression PHYSICAL EXAMINATION Vital Signs - 24 hr Last Vital Signs Temp Pulse Resp BP Pulse Ox 98.2 F 66 20 130/71 100 12/12/18 19:37 12/12/18 21:52 12/12/18 21:52 12/12/18 21:52 12/12/18 21:52 GENERAL: Awake, alert, and fully oriented, in no acute distress. EYES: Pupils equal, round and reactive to light, extraocular movements intact NECK: supple without lymphadenopathy, JVD, or masses, No bruit LUNGS: Breath sounds equal, clear to auscultation bilaterally. No wheezes, and no crackles. HEART: Difficult to appreciate- but Regular rate and rhythm, normal S1 and S2 without murmur, rub or gallop. ABDOMEN: Soft, nontender, not distended, normoactive bowel sounds, no guarding, no rebound, no masses. No hepatomegaly or splenomegaly. UPPER EXTREMITIES: 2+ pulses, warm, well-perfused. No peripheral edema. LOWER EXTREMITIES: 2+ pulses, warm, well-perfused. No peripheral edema. Laboratory Results - last 24 hr CBCD WBC 6.8 K/mm3 (4.0-10.0) 12/12/18 19:50 RBC 4.57 M/mm3 (4.00-5.60) 12/12/18 19:50 Hgb 11.7 GM/dL (11.7-16.9) 12/12/18 19:50 Hct 34.6 % (35.4-49) L 12/12/18 19:50 MCV 75.8 fl (80-96) L 12/12/18 19:50 MCHC 33.7 g/dl (32.0-35.9) 12/12/18 19:50 RDW 18.9 % (11.9-15.9) H 12/12/18 19:50 Plt Count 172 K/MM3 (134-434) 12/12/18 19:50 MPV 7.7 fl (7.5-11.1) 12/12/18 19:50 CMP Sodium 143 mmol/L (136-145) 12/12/18 19:50 Potassium 3.7 mmol/L (3.5-5.1) 12/12/18 19:50 Chloride 113 mmol/L (98-107) H 12/12/18 19:50 Carbon Dioxide 22 mmol/L (21-32) 12/12/18 19:50 Anion Gap 8 MMOL/L (8-16) 12/12/18 19:50 BUN 26.4 mg/dL (7-18) H 12/12/18 19:50 Creatinine 1.4 mg/dL (0.55-1.3) H 12/12/18 19:50 Random Glucose 67 mg/dL (74-106) L 12/12/18 19:50 Calcium 9.0 mg/dL (8.5-10.1) 12/12/18 19:50 Total Bilirubin 0.3 mg/dL (0.2-1) 12/12/18 19:50 AST 24 U/L (15-37) 12/12/18 19:50 ALT 36 U/L (13-61) 12/12/18 19:50 Alkaline Phosphatase 90 U/L (45-117) 12/12/18 19:50 Total Protein 6.7 g/dl (6.4-8.2) 12/12/18 19:50 Albumin 3.3 g/dl (3.4-5.0) L 12/12/18 19:50 CARDIAC ENZYMES Creatine Kinase 59 U/L (26-308) 12/12/18 19:50 Troponin I < 0.02 ng/ml (0.00-0.05) 12/12/18 19:50 ASSESSMENT/PLAN: 78 y/o M, w/ an extensive PMH including systolic CHF, CAD, PAD. IDDM, HTN, HLD, COPD, comes to ED c/o of SOB on exertion and fatigue of several month duration. #CHF Exacerbation CHF-old echo- 08/04 results- Global hypokinesia of LV, LV systolic function moderately reduced, mild Tricuspid and Mitral regurge, mild dilation of left and right atrium Consider r/p ECHO if indicated Monitor I&O's- due to CHF Lasiks- 40mg IV Monitor weight Pt on Continuous cardiac monitoring Pt declined ABG Possible BiPaP tonight Consulted cardiology- Dr. Carmen Hope #APRYL likely 2/2 to CHF exacerbation Elevated Cre- 1.4, Baseline cre 1.3, Fluid given in the ED Monitor cre after Entresto given- f/u Continue home meds- should resolve with CHF tx #CAD s/p CABG Continue home meds- Plavix #HTN Monitor BP Continue home meds- Bimatoprost, Carvedilol, Entresto #DM BGMs ordered Place on Insulin sliding scale Insulin glargine and lipro Continue home meds HLD Continue meds COPD continue home meds- budesonide/formeterol #DVT ppx Heparin 5000 FEN: Low sodium and diabetic diet Dispo: continuous cardiac monitoring, weight monitoring, I&Os lasiks started, consider BiPAP and speak to cardiology Visit type - Emergency Visit Emergency Visit: Yes ED Registration Date: 12/13/18 Care time: The patient presented to the Emergency Department on the above date and was hospitalized for further evaluation of their emergent condition. - New Patient This patient is new to me today: Yes Date on this admission: 12/13/18 - Critical Care Critical Care patient: No ATTENDING PHYSICIAN STATEMENT I saw and evaluated the patient. I reviewed the resident's note and discussed the case with the resident. I agree with the resident's findings and plan as documented. SUBJECTIVE: OBJECTIVE: ASSESSMENT AND PLAN:
[2018-12-12 22:50] LABS: EPI CELLS 0.7 /HPF (0-5/HPF); HYALINE CASTS 16 /lpf (0-8); URINE APPEARANCE CLEAR; URINE BACTERIA 0.8 /hpf (NEGATIVE); URINE BILIRUBIN NEGATIVE (NEGATIVE); URINE COLOR YELLOW; URINE GLUCOSE (UA) NEGATIVE (NEGATIVE); URINE KETONE NEGATIVE (NEGATIVE); URINE LEUK ESTERASE 2+ (NEGATIVE); URINE NITRITE NEGATIVE (NEGATIVE); URINE PROTEIN 1+ (NEGATIVE); URINE RBC 2 /hpf (0-4); URINE UROBILINOGEN 0.2 mg/dL (0.2-1.0); URINE WBC 112 /hpf (0-5)
[2018-12-12] MEDS ORDERED: MELATONIN 5 MG TABLETS PO ONE (23:18)
[2018-12-12 23:23] LABS: YEAST MODERATE (NEGATIVE)
[2018-12-13] MEDS ORDERED: HEPARIN NA (PORCINE) 5,000 UNITS/ML 1ML VIAL SQ SCH ×2 (02:00→10:00)
[2018-12-13] MEDS ORDERED: SIMETHICONE 80 MG TAB.CHEW (FP) PO ONE (04:39)
[2018-12-13] MEDS ORDERED: ONDANSETRON 4 MG/2 ML VIAL IVPB ONE (06:24)
[2018-12-13] MEDS ORDERED: ONDANSETRON 4 MG/2 ML VIAL ONE (06:30)
[2018-12-13] MEDS: INSULIN SLIDING SCALE (NOVOLOG) 1 VIAL SQ SCH ×2 (06:45→12:53)
[2018-12-13 07:29] LABS: ALBUMIN 3.2 g/dl (3.4-5.0); BILIRUBIN,TOTAL 0.4 mg/dL (0.2-1); CALCIUM 8.9 mg/dL (8.5-10.1); CREATININE 1.4 mg/dL (0.55-1.3); POTASSIUM 3.7 mmol/L (3.5-5.1); TOT PROT 6.5 g/dl (6.4-8.2)
--- NOTE | 2018-12-13 07:55 | PN ---
Progress Note, Physician Chief Complaint: states his breathing is back to his baseline-dyspnea with exertion History of Present Illness: 78 y/o M, w/ an extensive PMH including systolic CHF, CAD, PAD. IDDM, HTN, HLD, COPD, s/p Hellers myotomy presents to the ED w/ c/o of SOB on exertion and fatigue of several month duration. Pt states that he has had these symptoms intermittently multiple times and he comes into the hospital for each episode. This episode started when he was walking and he became severely SOB. He c/o of no other symptoms and reports the symptoms have been the same for several months. Patient was dc'd home on 12/09 after treated for a UTI. Was seen by PT prior to discharge and was without AVILA off O2 - Current Medication List Current Medications: Active Medications Acetaminophen (Tylenol -) 650 mg PO Q4H PRN PRN Reason: PAIN LEVEL 1-5 Budesonide/Formoterol Fumarate (Symbicort 160/4.5mcg -) 1 puff IH BID [place] Carvedilol (Coreg -) 3.125 mg PO BID [place] Clopidogrel Bisulfate (Plavix -) 75 mg PO DAILY [place] Escitalopram Oxalate (Lexapro -) 20 mg PO DAILY [place] Furosemide (Lasix Injection -) 40 mg IVPUSH DAILY [facility] Heparin Sodium (Porcine) (Heparin -) 5,000 unit SQ BID [place] Insulin Aspart (Novolog Vial Sliding Scale -) 1 vial SQ ACHS [facility]; Protocol Last Admin: 12/13/18 06:45 Dose: Not Given Latanoprost (Xalatan 0.005% Eye Drops -) 1 drop OU HS [place] Pantoprazole Sodium (Protonix -) 40 mg PO DAILY [place] Rosuvastatin Calcium (Crestor -) 20 mg PO HS [place] Sacubitril/Valsartan (Entresto 24 Mg-26 Mg Tablet) 1 tab PO DAILY [facility] - Objective Vital Signs: Vital Signs Temperature 97.6 F 12/13/18 05:57 Pulse Rate 74 12/13/18 05:57 Respiratory Rate 20 12/13/18 05:57 Blood Pressure 140/72 12/13/18 05:57 O2 Sat by Pulse Oximetry (%) 100 12/13/18 05:57 Constitutional: Yes: Well Nourished, No Distress, Calm Eyes: Yes: WNL, Conjunctiva Clear, EOM Intact HENT: Yes: WNL, Atraumatic, Normocephalic Neck: Yes: WNL, Supple, Trachea Midline Cardiovascular: Yes: WNL, Regular Rate and Rhythm Respiratory: Yes: Regular, CTA Bilaterally, Diminished (at bases) Gastrointestinal: Yes: WNL, Normal Bowel Sounds, Soft ...Rectal Exam: Yes: Deferred Genitourinary: Yes: WNL Breast(s): Yes: WNL Musculoskeletal: Yes: WNL Extremities: Yes: WNL Edema: Yes Edema: LLE: Trace, RLE: Trace Peripheral Pulses WNL: Yes Integumentary: Yes: WNL Neurological: Yes: WNL, Alert, Oriented ...Motor Strength: WNL Psychiatric: Yes: WNL, Alert, Oriented Labs: CBC, BMP 12/13/18 06:43 - ....Imaging Chest X-ray: Report Reviewed (no effusions or infiltrates), Image Reviewed Problem List - Problems (1) BPH (benign prostatic hypertrophy) Code(s): N40.0 - BENIGN PROSTATIC HYPERPLASIA WITHOUT LOWER URINRY TRACT SYMP Qualifiers: Lower urinary tract symptom presence: presence of symptoms unspecified (2) CAD (coronary artery disease) Code(s): I25.10 - ATHSCL HEART DISEASE OF [place] CORONARY ARTERY W/O ANG PCTRS Qualifiers: Coronary Disease-Associated Artery/Lesion type: [place] artery [place] vs. transplanted heart: [place] heart Associated angina: without angina Qualified Code(s): I25.10 - Atherosclerotic heart disease of [place] coronary artery without angina pectoris (3) COPD (chronic obstructive pulmonary disease) Code(s): J44.9 - CHRONIC OBSTRUCTIVE PULMONARY DISEASE, UNSPECIFIED Qualifiers: (4) Generalized weakness Code(s): R53.1 - WEAKNESS (5) Hx of CABG Code(s): Z95.1 - PRESENCE OF AORTOCORONARY BYPASS GRAFT (6) Hyperlipidemia Code(s): E78.5 - HYPERLIPIDEMIA, UNSPECIFIED Qualifiers: Hyperlipidemia type: pure hypercholesterolemia Qualified Code(s): E78.00 - Pure hypercholesterolemia, unspecified; E78.0 - Pure hypercholesterolemia (7) Hypertension Code(s): I10 - ESSENTIAL (PRIMARY) HYPERTENSION (8) NYHA class 2 acute on chronic systolic heart failure Code(s): I50.23 - ACUTE ON CHRONIC SYSTOLIC (CONGESTIVE) HEART FAILURE (9) PVD (peripheral vascular disease) Code(s): I73.9 - PERIPHERAL VASCULAR DISEASE, UNSPECIFIED (10) [facility] Code(s): F32.9 - MAJOR DEPRESSIVE DISORDER, SINGLE EPISODE, UNSPECIFIED
[2018-12-13] MEDS ORDERED: POTASSIUM CHLORIDE TABS 20 MEQ TABLET.ER (FP) PO ONE ×2 (08:14→09:34)
[2018-12-13 08:20] LABS: BASO % 0.4 % (0-2.0); EOS % 1.2 % (0-4.5); HEMATOCRIT 33.1 % (35.4-49); HEMOGLOBIN 11.3 GM/dL (11.7-16.9); LYMPH % 17.1 % (8-40); MCH 25.7 pg (25.7-33.7); MCHC 34.2 g/dl (32.0-35.9); MEAN CELL VOLUME 75.1 fl (80-96); MEAN PLT VOLUME 7.8 fl (7.5-11.1); MONO % 6.4 % (3.8-10.2); NEUT % 74.9 % (42.8-82.8); PLATELET COUNT 163 K/MM3 (134-434); RDW 18.9 % (11.9-15.9); WHITE BLOOD COUNT 6.5 K/mm3 (4.0-10.0)
[2018-12-13] MEDS ORDERED: SACUBITRIL/VALSARTAN 24 MG-26 MG TABLET PO SCH (10:00)
[2018-12-13] MEDS ORDERED: CARVEDILOL 3.125 MG TABLET (FP) PO SCH (10:00)
[2018-12-13] MEDS ORDERED: PANTOPRAZOLE 40 MG TABLET (FP) PO SCH (10:00)
[2018-12-13] MEDS ORDERED: ESCITALOPRAM OXALATE 20 MG TABLET (FP) PO SCH (10:00)
[2018-12-13] MEDS ORDERED: CLOPIDOGREL BISULFATE 75 MG TABLET (FP) PO SCH (10:00)
[2018-12-13] MEDS ORDERED: BUDESONIDE/FORMETEROL FUMARATE 160/4.5 mcg INHALER IH SCH ×3 (10:00→13:44)
[2018-12-13] MEDS ORDERED: FUROSEMIDE 40 MG/4 ML INJECTABLE VIAL IVPUSH SCH (10:00)
--- NOTE | 2018-12-13 10:13 | CON.CARD ---
Consult Consult Specialty:: Cardiology Referred by:: Hospitalist Reason for Consultation:: Cardiac evaluation - History of Present Illness Chief Complaint: Shortness of breath History of Present Illness: Patient is a 78 year old male with underlying history of CAD s/p CABG, PCI/stent , angina pectoris, class 2 NYHA classification LV failure with underlying LV systolic dysfunction, s/p ICD implant, HTN, DM and hypercholesterolemia who presents with increasing shortness of breath. He denies chest pain or palpitations. He denies paroxysmal nocturnal dyspnea or orthopnea. He denies fever or chills. He denies nausea, vomiting, diarrhea or abdominal pain. He denies headache or lightheadedness. - History Source History Provided By: Patient, Medical Record Limitations to Obtaining History: No Limitations - Past Medical History Cardio/Vascular: Yes: CAD, CHF, HTN, Hyperlipdemia, [place] Pulmonary: Yes: Asthma, COPD, Other (CA lung) Gastrointestinal: Yes: Constipation Renal/: Yes: BPH Musculoskeletal: Yes: Chronic low back pain, Osteoarthritis Endocrine: Yes: Diabetes Mellitus - Past Surgical History Past Surgical History: Yes: CABG, Cholecystectomy, Permanent Pacemaker - Alcohol/Substance Use Hx Alcohol Use: No History of Substance Use: reports: None - Smoking History Smoking history: Former smoker Have you smoked in the past 12 months: No Aproximately how many cigarettes per day: 5 If you are a former smoker, when did you quit?: FEW MONTHS - Social History Usual Living Arrangement: With Spouse ADL: Independent Occupation: retired: worked for [employer] History of Recent Travel: No Home Medications - Allergies Allergies/Adverse Reactions: Allergies Allergy/AdvReac Type Severity Reaction Status Date / Time pregabalin [From Lyrica] Allergy Severe Verified 12/12/18 17:52 - Home Medications Home Medications: Ambulatory Orders Albuterol 0.083% Nebulizer Fatuma [Ventolin 0.083%] 1 neb NEB QID 12/08/18 Bimatoprost [Lumigan] 1 drop IO DAILY 12/08/18 Budesonide/Formeterol Fumarate [SYMBICORT 160/4.5mcg -] 1 inh PO DAILY 12/08/18 Carvedilol 3.125 mg PO BID 12/08/18 Clopidogrel Bisulfate [Plavix] 75 mg PO DAILY 12/08/18 Escitalopram Oxalate [Lexapro -] 20 mg PO DAILY 12/08/18 Furosemide [Lasix] 20 mg PO DAILY 12/08/18 Insulin Glargine,Hum.rec.anlog [Lantus] 100 unit SQ ASDIR 12/08/18 Insulin Lispro [Humalog] 100 unit SQ DAILY 12/08/18 Pantoprazole Sodium 40 mg PO DAILY 12/08/18 Rosuvastatin Calcium [Crestor] 20 mg PO DAILY 12/08/18 Sacubitril/Valsartan [Entresto 24 mg-26 mg Tablet] 1 each PO DAILY 12/08/18 Family Disease History - Family Disease History Family Disease History: CA: Mother (Gastric), Other: Father (CAD) Other Family History: History of CVA Review of Systems - Review of Systems Constitutional: denies: Chills, Fever Cardiovascular: reports: Shortness of Breath. denies: Chest Pain, Palpitations Respiratory: reports: SOB. denies: Cough, Hemoptysis, Orthopnea, PND Gastrointestinal: denies: Abdominal Pain, Constipation, Diarrhea, Melena, Nausea , Rectal Bleeding, Vomiting Musculoskeletal: denies: Joint Pain Neurological: denies: Dizziness, Headache, Seizure, Syncope Vital Signs: Vital Signs Temperature 97.6 F 12/13/18 05:57 Pulse Rate 74 12/13/18 05:57 Respiratory Rate 20 12/13/18 05:57 Blood Pressure 140/72 12/13/18 05:57 O2 Sat by Pulse Oximetry (%) 100 12/13/18 05:57 Eyes: Yes: PERRL HENT: Yes: Atraumatic Neck: Yes: Supple Respiratory: Yes: Diminished Gastrointestinal: Yes: Normal Bowel Sounds, Soft Cardiovascular: Yes: Regular Rate and Rhythm JVD: No PMI: Non-Displaced Heart Sounds: Yes: S1, S2 Murmur: Yes: Systolic Murmur, Grade 1 Edema: No - Other Data Labs, Other Data: CBC, BMP 12/13/18 06:43 12/13/18 06:43 Troponin, BNP 12/12/18 19:50 Troponin I < 0.02 B-Natriuretic Peptide 3769.9 H Problem List - Problems (1) Acute on chronic diastolic CHF (congestive heart failure) Code(s): I50.33 - ACUTE ON CHRONIC DIASTOLIC (CONGESTIVE) HEART FAILURE (2) Acute on chronic renal insufficiency Code(s): N28.9 - DISORDER OF KIDNEY AND URETER, UNSPECIFIED; N18.9 - CHRONIC KIDNEY DISEASE, UNSPECIFIED (3) Anemia Code(s): D64.9 - ANEMIA, UNSPECIFIED Qualifiers: Anemia type: due to chronic kidney disease Chronic kidney disease stage: stage 3 (moderate) Qualified Code(s): N18.3 - Chronic kidney disease, stage 3 (moderate); D63.1 - Anemia in chronic kidney disease; D63.1 - Anemia in chronic kidney disease (4) CAD (coronary artery disease) Code(s): I25.10 - ATHSCL HEART DISEASE OF [place] CORONARY ARTERY W/O ANG PCTRS Qualifiers: Coronary Disease-Associated Artery/Lesion type: [place] artery [place] vs. transplanted heart: [place] heart Associated angina: without angina Qualified Code(s): I25.10 - Atherosclerotic heart disease of [place] coronary artery without angina pectoris (5) CKD (chronic kidney disease) Code(s): N18.9 - CHRONIC KIDNEY DISEASE, UNSPECIFIED Qualifiers: Chronic kidney disease stage: stage 3 (moderate) Qualified Code(s): N18.3 - Chronic kidney disease, stage 3 (moderate) (6) COPD (chronic obstructive pulmonary disease) Code(s): J44.9 - CHRONIC OBSTRUCTIVE PULMONARY DISEASE, UNSPECIFIED Qualifiers: (7) Dyspnea Code(s): R06.00 - DYSPNEA, UNSPECIFIED Qualifiers: Dyspnea type: shortness of breath Qualified Code(s): R06.02 - Shortness of breath; R06.00 - Dyspnea, unspecified; R06.01 - Orthopnea (8) Hx of CABG Code(s): Z95.1 - PRESENCE OF AORTOCORONARY BYPASS GRAFT (9) Hyperlipidemia Code(s): E78.5 - HYPERLIPIDEMIA, UNSPECIFIED Qualifiers: Hyperlipidemia type: pure hypercholesterolemia Qualified Code(s): E78.00 - Pure hypercholesterolemia, unspecified; E78.0 - Pure hypercholesterolemia (10) Hypertension Code(s): I10 - ESSENTIAL (PRIMARY) HYPERTENSION (11) ICD (implantable cardioverter-defibrillator) in place Code(s): Z95.810 - PRESENCE OF AUTOMATIC (IMPLANTABLE) CARDIAC DEFIBRILLATOR (12) NYHA class 2 acute on chronic systolic heart failure Code(s): I50.23 - ACUTE ON CHRONIC SYSTOLIC (CONGESTIVE) HEART FAILURE (13) PVD (peripheral vascular disease) Code(s): I73.9 - PERIPHERAL VASCULAR DISEASE, UNSPECIFIED (14) Pulmonary HTN Code(s): I27.20 - PULMONARY HYPERTENSION, UNSPECIFIED (15) Type 2 diabetes mellitus Code(s): E11.9 - TYPE 2 DIABETES MELLITUS WITHOUT COMPLICATIONS Qualifiers: Assessment/Plan 1. Shortness of breath 2. LV systolic dysfunction Class 2 NYHA classification heart failure, s/p ICD 3. CAD s/p CABG, angina pectoris 4. HTN 5. Hypercholesterolemia 6. DM PLAN: 1.Continue Carvedilol and Entresto as tolerated 2. IV diuretics and monitor I/O, renal function and electrolytes 3. Plavix 4. Crestor 5. Bronchodilator Outpatient follow up Jayy Morales MD
[2018-12-13] MEDS ORDERED: INSULIN (NOVOLOG) ASPART 100 UNITS/ML 10ML VIAL ONE ×2 (11:48→12:25)
--- NOTE | 2018-12-13 13:37 | CON.PULM ---
Consult Consult Specialty:: PULM/CCM Referred by:: AUGUST Reason for Consultation:: SOB - History of Present Illness Chief Complaint: weakness and AVILA History of Present Illness: 78 M, systolic CHF, CAD, PAD. IDDM, HTN, HLD, COPD, (not on home O2 or steroid dependent), and s/p Hellers myotomy. Admitted via the ER with his (for AE of Asthma). He reports several days of AVILA and generalized weakness and fatigue after minimal activity. No travel history or sick contacts. No fever or chills. No hemoptysis or night sweats. Of note, the patient was recently hospitalized for a UTI and discharged on 12/09. CXR: slight cephalization of vessel. No infiltrate or effusions. - History Source History Provided By: Patient Limitations to Obtaining History: No Limitations - Past Medical History Cardio/Vascular: Yes: CAD, CHF, HTN, Hyperlipdemia, [place] Pulmonary: Yes: Asthma, Bronchitis, COPD, Pneumonia. No: Cancer, O2 Dependent, Previously Intubated, Pulmonary Embolus, Pulmonary Fibrosis, Sleep Apnea Gastrointestinal: Yes: Constipation Renal/: Yes: BPH Musculoskeletal: Yes: Chronic low back pain, Osteoarthritis Endocrine: Yes: Diabetes Mellitus - Past Surgical History Past Surgical History: Yes: CABG, Cholecystectomy, Permanent Pacemaker - Alcohol/Substance Use Hx Alcohol Use: No History of Substance Use: reports: None - Smoking History Smoking history: Former smoker Have you smoked in the past 12 months: No Aproximately how many cigarettes per day: 5 If you are a former smoker, when did you quit?: FEW MONTHS - Social History Usual Living Arrangement: With Spouse ADL: Independent Occupation: retired: worked for [employer] History of Recent Travel: No Home Medications - Allergies Allergies/Adverse Reactions: Allergies Allergy/AdvReac Type Severity Reaction Status Date / Time pregabalin [From Lyrica] Allergy Severe Verified 12/12/18 17:52 - Home Medications Home Medications: Ambulatory Orders Albuterol 0.083% Nebulizer Fatuma [Ventolin 0.083%] 1 neb NEB QID 12/08/18 Bimatoprost [[place]umigan] 1 drop IO DAILY 12/08/18 Budesonide/Formeterol Fumarate [SYMBICORT 160/4.5mcg -] 1 inh PO DAILY 12/08/18 Carvedilol 3.125 mg PO BID 12/08/18 Clopidogrel Bisulfate [Plavix] 75 mg PO DAILY 12/08/18 Escitalopram Oxalate [Lexapro -] 20 mg PO DAILY 12/08/18 Furosemide [Lasix] 20 mg PO DAILY 12/08/18 Insulin Glargine,Hum.rec.anlog [Lantus] 100 unit SQ ASDIR 12/08/18 Insulin Lispro [Humalog] 100 unit SQ DAILY 12/08/18 Pantoprazole Sodium 40 mg PO DAILY 12/08/18 Rosuvastatin Calcium [Crestor] 20 mg PO DAILY 12/08/18 Sacubitril/Valsartan [Entresto 24 mg-26 mg Tablet] 1 each PO DAILY 12/08/18 Family Disease History - Family Disease History Family Disease History: [place]: Mother (Gastric), Other: Father (CAD), Brother, Sister, Son, Daughter Other Family History: History of CVA Review of Systems - Review of Systems Constitutional: reports: Lethargy, Malaise, Weakness. denies: Chills, Fever, Night Sweats, Unintentional Wgt. Loss Eyes: reports: No Symptoms HENT: reports: No Symptoms Neck: reports: No Symptoms Cardiovascular: reports: Shortness of Breath. denies: Chest Pain, Edema, Palpitations Respiratory: reports: Cough, SOB, SOB on Exertion. denies: Hemoptysis, Orthopnea, PND, Snoring, Wheezing Gastrointestinal: reports: No Symptoms Genitourinary: reports: No Symptoms Breasts: reports: No Symptoms Reported Musculoskeletal: reports: No Symptoms Integumentary: reports: No Symptoms Neurological: reports: No Symptoms Endocrine: reports: No Symptoms Hematology/Lymphatic: reports: No Symptoms Psychiatric: reports: No Symptoms Physical Exam Vital Sings: Vital Signs Temperature 97.6 F 12/13/18 05:57 Pulse Rate 74 12/13/18 05:57 Respiratory Rate 20 12/13/18 05:57 Blood Pressure 140/72 12/13/18 05:57 O2 Sat by Pulse Oximetry (%) 100 12/13/18 05:57 Constitutional: Yes: No Distress, Calm Eyes: Yes: Conjunctiva Clear, EOM Intact HENT: Yes: Atraumatic, Normocephalic Neck: Yes: Supple Cardiovascular: Yes: Regular Rate and Rhythm Respiratory: Yes: Cough, Diminished, Rhonchi. No: Accessory Muscle Use, On Nasal O2, Rales, SOB, SOB on Exertion, Stridor, Tachypnea, Wheezes ...Inspection: Yes: WNL ...Clubbing: No Gastrointestinal: Yes: Normal Bowel Sounds, Soft Renal/: Yes: WNL Musculoskeletal: Yes: WNL Extremities: Yes: WNL Edema: No Peripheral Pulses WNL: Yes Integumentary: Yes: WNL Neurological: Yes: WNL, Alert, Oriented ...Motor Strength: WNL Psychiatric: Yes: WNL, Alert, Oriented Labs: CBC, BMP 12/13/18 06:43 12/13/18 06:43 Imaging - Results Chest X-ray: Report Reviewed, Image Reviewed Assessment/Plan IMP: Do not suspect an AE of his COPD Chronic Bronchitis Suspect deconditioning as a major contributor to his symptoms Severe systolic CHF, NYHA-II at baseline, 2/2 ischemic CM CAD s/p CABG, PCI PAD s/p bypass Hx PUD Hx [place] Chronic dysphagia HTN HLD DM CKD Continue Symbicort BID BD TX PRN No indication for systemic steroids at this time Monitor off ABX PT / Rehab There is no Pulmonary contraindication for D/C planning Thank you. Dr Mills
[2018-12-13] MEDS ORDERED: ALBUTEROL SO4 0.083% IH SOL 2.5 MG/3 ML VIAL.NEB. NEB SCH (14:00)
[2018-12-13] MEDS ORDERED: ALBUTEROL SO4 0.083% IH SOL 2.5 MG/3 ML VIAL.NEB. NEB ONE (14:53)
[2018-12-13 15:15] VITALS: TEMP 98.1
[2018-12-13 15:18] VITALS: PULSE 66
--- NOTE | 2018-12-13 16:00 | DS ---
Physical Exam: SUBJECTIVE: Patient seen and examined OBJECTIVE: Vital Signs Period Temp Pulse Resp BP Sys/Garcia Pulse Ox Last 24 Hr 97 F-98.2 F 56-84 18-21 97-140/44-72 96-100 PHYSICAL EXAM GENERAL: The patient is awake, alert, and fully oriented, in no acute distress. HEAD: Normal with no signs of trauma. EYES: PERRL, extraocular movements intact, sclera anicteric, conjunctiva clear. ENT: Ears normal, nares patent, oropharynx clear without exudates, moist mucous membranes. NECK: Trachea midline, full range of motion, supple. LUNGS: Breath sounds equal, clear to auscultation bilaterally, no wheezes, no crackles, no accessory muscle use. HEART: Regular rate and rhythm, S1, S2 without murmur, rub or gallop. ABDOMEN: Soft, nontender, nondistended, normoactive bowel sounds, no guarding, no rebound, no hepatosplenomegaly, no masses. EXTREMITIES: 2+ pulses, warm, well-perfused, no edema. NEUROLOGICAL: Cranial nerves II through XII grossly intact. Normal speech, gait not observed. PSYCH: Normal mood, normal affect. SKIN: Warm, dry, normal turgor, no rashes or lesions noted. LABS Laboratory Results - last 24 hr 12/12/18 12/12/18 12/12/18 19:50 19:50 19:50 WBC 6.8 RBC 4.57 Hgb 11.7 Hct 34.6 L MCV 75.8 L MCH 25.5 L MCHC 33.7 RDW 18.9 H Plt Count 172 MPV 7.7 Absolute Neuts (auto) 5.4 Neutrophils % 79.0 Lymphocytes % 12.3 Monocytes % 7.5 Eosinophils % 0.7 Basophils % 0.5 Nucleated RBC % 0 Sodium 143 Potassium 3.7 Chloride 113 H Carbon Dioxide 22 Anion Gap 8 BUN 26.4 H Creatinine 1.4 H Est GFR (CKD-EPI)AfAm 56.16 Est GFR (CKD-EPI)NonAf 48.46 POC Glucometer Random Glucose 67 L Calcium 9.0 Magnesium 1.8 Total Bilirubin 0.3 AST 24 ALT 36 Alkaline Phosphatase 90 Creatine Kinase 59 Troponin I < 0.02 B-Natriuretic Peptide 3769.9 H Total Protein 6.7 Albumin 3.3 L Urine Color Urine Appearance Urine pH Ur Specific [place] Urine Protein Urine Glucose (UA) Urine Ketones Urine Blood Urine Nitrite Urine Bilirubin Urine Urobilinogen Ur Leukocyte Esterase Urine WBC (Auto) Urine RBC (Auto) Urine Casts (Auto) U Pathogenic Cast Auto U Epithel Cells (Auto) Urine Bacteria (Auto) Urine Yeast (Auto) 12/12/18 12/12/18 12/13/18 21:35 22:34 06:41 WBC RBC Hgb Hct MCV MCH MCHC RDW Plt Count MPV Absolute Neuts (auto) Neutrophils % Lymphocytes % Monocytes % Eosinophils % Basophils % Nucleated RBC % Sodium Potassium Chloride Carbon Dioxide Anion Gap BUN Creatinine Est GFR (CKD-EPI)AfAm Est GFR (CKD-EPI)NonAf POC Glucometer 134 121 Random Glucose Calcium Magnesium Total Bilirubin AST ALT Alkaline Phosphatase Creatine Kinase Troponin I B-Natriuretic Peptide Total Protein Albumin Urine Color Yellow Urine Appearance Clear Urine pH 5.0 Ur Specific [place] 1.013 Urine Protein 1+ H Urine Glucose (UA) Negative Urine Ketones Negative Urine Blood Negative Urine Nitrite Negative Urine Bilirubin Negative Urine Urobilinogen 0.2 Ur Leukocyte Esterase 2+ H Urine WBC (Auto) 112 Urine RBC (Auto) 2 Urine Casts (Auto) 16 U Pathogenic Cast Auto None seen U Epithel Cells (Auto) 0.7 Urine Bacteria (Auto) 0.8 Urine Yeast (Auto) Moderate 12/13/18 12/13/18 12/13/18 06:43 06:43 11:23 WBC 6.5 RBC 4.40 Hgb 11.3 L Hct 33.1 L MCV 75.1 L MCH 25.7 MCHC 34.2 RDW 18.9 H Plt Count 163 MPV 7.8 Absolute Neuts (auto) 4.9 Neutrophils % 74.9 Lymphocytes % 17.1 D Monocytes % 6.4 Eosinophils % 1.2 Basophils % 0.4 Nucleated RBC % 0 Sodium 142 Potassium 3.7 Chloride 111 H Carbon Dioxide 24 Anion Gap 7 L BUN 26.0 H Creatinine 1.4 H Est GFR (CKD-EPI)AfAm 56.16 Est GFR (CKD-EPI)NonAf 48.46 POC Glucometer 186 Random Glucose 122 H Calcium 8.9 Magnesium Total Bilirubin 0.4 AST 23 ALT 36 Alkaline Phosphatase 88 Creatine Kinase Troponin I B-Natriuretic Peptide Total Protein 6.5 Albumin 3.2 L Urine Color Urine Appearance Urine pH Ur Specific [place] Urine Protein Urine Glucose (UA) Urine Ketones Urine Blood Urine Nitrite Urine Bilirubin Urine Urobilinogen Ur Leukocyte Esterase Urine WBC (Auto) Urine RBC (Auto) Urine Casts (Auto) U Pathogenic Cast Auto U Epithel Cells (Auto) Urine Bacteria (Auto) Urine Yeast (Auto) HOSPITAL COURSE: Date of Admission:12/13/18 Date of Discharge: 12/13/18 Chief Complaint: states his breathing is back to his baseline History of Present Illness: 78 y/o M, w/ an extensive PMH including systolic CHF, CAD, PAD. IDDM, HTN, HLD, COPD, s/p Hellers myotomy presents to the ED w/ c/o of SOB on exertion and fatigue of several month duration. Pt states that he has had these symptoms intermittently multiple times and he comes into the hospital for each episode. This episode started when he was walking and he became severely SOB. He c/o of no other symptoms and reports the symptoms have been the same for several months. Patient was dc'd home on 12/09 after treated for a UTI. Was seen by PT prior to discharge and was without AVILA off O2 - Current Medication List Current Medications: Active Medications Acetaminophen (Tylenol -) 650 mg PO Q4H PRN PRN Reason: PAIN LEVEL 1-5 Budesonide/Formoterol Fumarate (Symbicort 160/4.5mcg -) 1 puff IH BID [facility] Carvedilol (Coreg -) 3.125 mg PO BID [facility] Clopidogrel Bisulfate (Plavix -) 75 mg PO DAILY [facility] Escitalopram Oxalate (Lexapro -) 20 mg PO DAILY [facility] Furosemide (Lasix Injection -) 40 mg IVPUSH DAILY [facility] Heparin Sodium (Porcine) (Heparin -) 5,000 unit SQ BID [facility] Insulin Aspart (Novolog Vial Sliding Scale -) 1 vial SQ ACHS [facility]; Protocol Last Admin: 12/13/18 06:45 Dose: Not Given Latanoprost (Xalatan 0.005% Eye Drops -) 1 drop OU HS [facility] Pantoprazole Sodium (Protonix -) 40 mg PO DAILY [facility] Rosuvastatin Calcium (Crestor -) 20 mg PO HS [facility] Sacubitril/Valsartan (Entresto 24 Mg-26 Mg Tablet) 1 tab PO DAILY [facility] - Objective Vital Signs: Vital Signs Temperature 97.6 F 12/13/18 05:57 Pulse Rate 74 12/13/18 05:57 Respiratory Rate 20 12/13/18 05:57 Blood Pressure 140/72 12/13/18 05:57 O2 Sat by Pulse Oximetry (%) 100 12/13/18 05:57 Constitutional: Yes: Well Nourished, No Distress, Calm Eyes: Yes: WNL, Conjunctiva Clear, EOM Intact HENT: Yes: WNL, Atraumatic, Normocephalic Neck: Yes: WNL, Supple, Trachea Midline Cardiovascular: Yes: WNL, Regular Rate and Rhythm Respiratory: Yes: Regular, CTA Bilaterally, Diminished (at bases) Gastrointestinal: Yes: WNL, Normal Bowel Sounds, Soft ...Rectal Exam: Yes: Deferred Genitourinary: Yes: WNL Breast(s): Yes: WNL Musculoskeletal: Yes: WNL Extremities: Yes: WNL Edema: Yes Edema: LLE: Trace, RLE: Trace Peripheral Pulses WNL: Yes Integumentary: Yes: WNL Neurological: Yes: WNL, Alert, Oriented ...Motor Strength: WNL Psychiatric: Yes: WNL, Alert, Oriented Labs: CBC, BMP 12/13/18 06:43 - ....Imaging Chest X-ray: Report Reviewed (no effusions or infiltrates), Image Reviewed Problem List - Problems (1) BPH (benign prostatic hypertrophy) Code(s): N40.0 - BENIGN PROSTATIC HYPERPLASIA WITHOUT LOWER URINRY TRACT SYMP Qualifiers: Lower urinary tract symptom presence: presence of symptoms unspecified (2) CAD (coronary artery disease) c./w asa Code(s): I25.10 - ATHSCL HEART DISEASE OF [place] CORONARY ARTERY W/O ANG PCTRS Qualifiers: Coronary Disease-Associated Artery/Lesion type: [place] artery [place] vs. transplanted heart: [place] heart Associated angina: without angina Qualified Code(s): I25.10 - Atherosclerotic heart disease of [place] coronary artery without angina pectoris (3) COPD (chronic obstructive pulmonary disease) continue Symbicort BID bronchodilators PRN No indication for systemic steroids at this time continue to Monitor off ABX PT / Rehab [facility] to see patient for COPD program Code(s): J44.9 - CHRONIC OBSTRUCTIVE PULMONARY DISEASE, UNSPECIFIED Qualifiers: (4) Generalized weakness C/w assistive device when ambulation Code(s): R53.1 - WEAKNESS (5) Hx of CABG c/w asa Code(s): Z95.1 - PRESENCE OF AORTOCORONARY BYPASS GRAFT (6) Hyperlipidemia c/w atorvastatin Code(s): E78.5 - HYPERLIPIDEMIA, UNSPECIFIED Qualifiers: Hyperlipidemia type: pure hypercholesterolemia Qualified Code(s): E78.00 - Pure hypercholesterolemia, unspecified; E78.0 - Pure hypercholesterolemia (7) Hypertension Code(s): I10 - ESSENTIAL (PRIMARY) HYPERTENSION (8) NYHA class 2 acute on chronic systolic heart failure C/W lasix, coregCode(s): I50.23 - ACUTE ON CHRONIC SYSTOLIC (CONGESTIVE) HEART FAILURE (9) PVD (peripheral vascular disease) Code(s): I73.9 - PERIPHERAL VASCULAR DISEASE, UNSPECIFIED (10) Depression c/w lexapor Assessment/Plan: Code(s): F32.9 - MAJOR DEPRESSIVE DISORDER, SINGLE EPISODE, UNSPECIFIED Minutes to complete discharge: 60 Discharge Summary Reason For Visit: SHORT OF BREATH Hospital Course: Chief Complaint: states his breathing is back to his baseline History of Present Illness: 78 y/o M, w/ an extensive PMH including systolic CHF, CAD, PAD. IDDM, HTN, HLD, COPD, s/p Hellers myotomy presents to the ED w/ c/o of SOB on exertion and fatigue of several month duration. Pt states that he has had these symptoms intermittently multiple times and he comes into the hospital for each episode. This episode started when he was walking and he became severely SOB. He c/o of no other symptoms and reports the symptoms have been the same for several months. Patient was dc'd home on 12/09 after treated for a UTI. Was seen by PT prior to discharge and was without AVILA off O2 - Current Medication List Current Medications: Active Medications Acetaminophen (Tylenol -) 650 mg PO Q4H PRN PRN Reason: PAIN LEVEL 1-5 Budesonide/Formoterol Fumarate (Symbicort 160/4.5mcg -) 1 puff IH BID [facility] Carvedilol (Coreg -) 3.125 mg PO BID [facility] Clopidogrel Bisulfate (Plavix -) 75 mg PO DAILY [facility] Escitalopram Oxalate (Lexapro -) 20 mg PO DAILY [facility] Furosemide (Lasix Injection -) 40 mg IVPUSH DAILY [facility] Heparin Sodium (Porcine) (Heparin -) 5,000 unit SQ BID [facility] Insulin Aspart (Novolog Vial Sliding Scale -) 1 vial SQ [facility]; Protocol Last Admin: 12/13/18 06:45 Dose: Not Given Latanoprost (Xalatan 0.005% Eye Drops -) 1 drop OU HS [facility] Pantoprazole Sodium (Protonix -) 40 mg PO DAILY [facility] Rosuvastatin Calcium (Crestor -) 20 mg PO HS [facility] Sacubitril/Valsartan (Entresto 24 Mg-26 Mg Tablet) 1 tab PO DAILY [facility] - Objective Vital Signs: Vital Signs Temperature 97.6 F 12/13/18 05:57 Pulse Rate 74 12/13/18 05:57 Respiratory Rate 20 12/13/18 05:57 Blood Pressure 140/72 12/13/18 05:57 O2 Sat by Pulse Oximetry (%) 100 12/13/18 05:57 Constitutional: Yes: Well Nourished, No Distress, Calm Eyes: Yes: WNL, Conjunctiva Clear, EOM Intact HENT: Yes: WNL, Atraumatic, Normocephalic Neck: Yes: WNL, Supple, Trachea Midline Cardiovascular: Yes: WNL, Regular Rate and Rhythm Respiratory: Yes: Regular, CTA Bilaterally, Diminished (at bases) Gastrointestinal: Yes: WNL, Normal Bowel Sounds, Soft ...Rectal Exam: Yes: Deferred Genitourinary: Yes: WNL Breast(s): Yes: WNL Musculoskeletal: Yes: WNL Extremities: Yes: WNL Edema: Yes Edema: LLE: Trace, RLE: Trace Peripheral Pulses WNL: Yes Integumentary: Yes: WNL Neurological: Yes: WNL, Alert, Oriented ...Motor Strength: WNL Psychiatric: Yes: WNL, Alert, Oriented Labs: CBC, BMP 12/13/18 06:43 - ....Imaging Chest X-ray: Report Reviewed (no effusions or infiltrates), Image Reviewed Problem List - Problems (1) BPH (benign prostatic hypertrophy) Code(s): N40.0 - BENIGN PROSTATIC HYPERPLASIA WITHOUT LOWER URINRY TRACT SYMP Qualifiers: Lower urinary tract symptom presence: presence of symptoms unspecified (2) CAD (coronary artery disease) c./w asa Code(s): I25.10 - ATHSCL HEART DISEASE OF [place] CORONARY ARTERY W/O ANG PCTRS Qualifiers: Coronary Disease-Associated Artery/Lesion type: [place] artery [place] vs. transplanted heart: [place] heart Associated angina: without angina Qualified Code(s): I25.10 - Atherosclerotic heart disease of [place] coronary artery without angina pectoris (3) COPD (chronic obstructive pulmonary disease) continue Symbicort BID bronchodilators PRN No indication for systemic steroids at this time continue to Monitor off ABX PT / Rehab [facility] to see patient for COPD program Code(s): J44.9 - CHRONIC OBSTRUCTIVE PULMONARY DISEASE, UNSPECIFIED Qualifiers: (4) Generalized weakness C/w assistive device when ambulation Code(s): R53.1 - WEAKNESS (5) Hx of CABG c/w asa Code(s): Z95.1 - PRESENCE OF AORTOCORONARY BYPASS GRAFT (6) Hyperlipidemia c/w atorvastatin Code(s): E78.5 - HYPERLIPIDEMIA, UNSPECIFIED Qualifiers: Hyperlipidemia type: pure hypercholesterolemia Qualified Code(s): E78.00 - Pure hypercholesterolemia, unspecified; E78.0 - Pure hypercholesterolemia (7) Hypertension Code(s): I10 - ESSENTIAL (PRIMARY) HYPERTENSION (8) NYHA class 2 acute on chronic systolic heart failure C/W lasix, coregCode(s): I50.23 - ACUTE ON CHRONIC SYSTOLIC (CONGESTIVE) HEART FAILURE (9) PVD (peripheral vascular disease) Code(s): I73.9 - PERIPHERAL VASCULAR DISEASE, UNSPECIFIED (10) Depression c/w lexapor Assessment/Plan: Code(s): F32.9 - MAJOR DEPRESSIVE DISORDER, SINGLE EPISODE, UNSPECIFIED Condition: Improved - Instructions Diet, Activity, Other Instructions: You may resume your regular diet at home. There are no changes to your current medications. Continue to use your steroid inhalers and inhaled steroids- symbicort. We have placed a referral to [facility] for the COPD program. A nurse with come to your home tomorrow or the day after. Please use the walker to ambulate when at home to ambulate until your strength returns. If you develop worsening shortness of breath return back to the ED. Follow with Dr Ramírez your talend etl developer for your respiratory problems. - Home Medications Comprehensive Discharge Medication List: Ambulatory Orders Bimatoprost [Lumigan] 1 drop IO DAILY 12/08/18 Budesonide/Formeterol Fumarate [SYMBICORT 160/4.5mcg -] 1 inh PO DAILY 12/08/18 Carvedilol 3.125 mg PO BID 12/08/18 Clopidogrel Bisulfate [Plavix] 75 mg PO DAILY 12/08/18 Escitalopram Oxalate [Lexapro -] 20 mg PO DAILY 12/08/18 Furosemide [Lasix] 20 mg PO DAILY 12/08/18 Insulin Glargine,Hum.rec.anlog [Lantus] 100 unit SQ ASDIR 12/08/18 Insulin Lispro [Humalog] 100 unit SQ DAILY 12/08/18 Pantoprazole Sodium 40 mg PO DAILY 12/08/18 Rosuvastatin Calcium [Crestor] 20 mg PO DAILY 12/08/18 Sacubitril/Valsartan [Entresto 24 mg-26 mg Tablet] 1 each PO DAILY 12/08/18 Insulin Sliding Scale [Novolog Vial Sliding Scale -] 1 vial SQ ACHS units 12/13 Problem List - Problems (1) BPH (benign prostatic hypertrophy) Code(s): N40.0 - BENIGN PROSTATIC HYPERPLASIA WITHOUT LOWER URINRY TRACT SYMP Qualifiers: Lower urinary tract symptom presence: presence of symptoms unspecified (2) CAD (coronary artery disease) Code(s): I25.10 - ATHSCL HEART DISEASE OF [place] CORONARY ARTERY W/O ANG PCTRS Qualifiers: Coronary Disease-Associated Artery/Lesion type: [place] artery [place] vs. transplanted heart: [place] heart Associated angina: without angina Qualified Code(s): I25.10 - Atherosclerotic heart disease of [place] coronary artery without angina pectoris (3) COPD (chronic obstructive pulmonary disease) Code(s): J44.9 - CHRONIC OBSTRUCTIVE PULMONARY DISEASE, UNSPECIFIED Qualifiers: (4) Generalized weakness Code(s): R53.1 - WEAKNESS (5) Hx of CABG Code(s): Z95.1 - PRESENCE OF AORTOCORONARY BYPASS GRAFT (6) Hyperlipidemia Code(s): E78.5 - HYPERLIPIDEMIA, UNSPECIFIED Qualifiers: Hyperlipidemia type: pure hypercholesterolemia Qualified Code(s): E78.00 - Pure hypercholesterolemia, unspecified; E78.0 - Pure hypercholesterolemia (7) Hypertension Code(s): I10 - ESSENTIAL (PRIMARY) HYPERTENSION (8) NYHA class 2 acute on chronic systolic heart failure Code(s): I50.23 - ACUTE ON CHRONIC SYSTOLIC (CONGESTIVE) HEART FAILURE (9) PVD (peripheral vascular disease) Code(s): I73.9 - PERIPHERAL VASCULAR DISEASE, UNSPECIFIED (10) Depression Code(s): F32.9 - MAJOR DEPRESSIVE DISORDER, SINGLE EPISODE, UNSPECIFIED This patient is new to me today: Yes Date on this admission: 12/13/18 Emergency Visit: Yes ED Registration Date: 12/13/18 Care time: The patient presented to the Emergency Department on the above date and was hospitalized for further evaluation of their emergent condition. Critical Care patient: No - Discharge Referral Referred to [facility] Med P.C.: No
[2018-12-13] MEDS ORDERED: ROSUVASTATIN CA 20 MG TABLET (FP) PO SCH (22:00)
[2018-12-13] MEDS ORDERED: LATANOPROST 0.005% OPHTH SOLN 2.5ML BOTTLE OU SCH (22:00)
[2018-12-14] MEDS ORDERED: FUROSEMIDE 20 MG TABLET (FP) PO SCH (10:00)
[2018-12-15 13:20] VITALS: BP 113/62
--- NOTE | 2018-12-15 13:39 | EKG ---
Test Reason : Blood Pressure : / mmHG Vent. Rate : 059 BPM Atrial Rate : 059 BPM P-R Int : 264 ms QRS Dur : 120 ms QT Int : 460 ms P-R-T Axes : 044 -26 120 degrees QTc Int : 455 ms SINUS BRADYCARDIA WITH 1ST DEGREE A-V BLOCK ANTERIOR INFARCT , AGE UNDETERMINED ABNORMAL ECG NO PREVIOUS ECGS AVAILABLE Confirmed by OMEGA CANCINO MD ([id number]) on 12/15/2018 1:39:19 PM Referred By: Confirmed By:OMEGA CANCINO MD
== END 2018-12-13 16:37 | disposition home or self-care (01) | DRG 292 ==
LOC: JER 17:49 → JERBED 20:46 → OBSVTOIN 12-13 01:00
PROVIDERS: ADMIT Internal Medicine; ATTEND Nurse Practitioner Acute Care
DX: I13.0 Hypertensive heart and chronic kidney disease with heart failure and stage 1 through stage 4 chronic kidney disease, or unspecified chronic kidney disease (principal); I50.22 Chronic systolic (congestive) heart failure; N17.9 Acute kidney failure, unspecified; I25.10 Atherosclerotic heart disease of native coronary artery without angina pectoris; Z95.1 Presence of aortocoronary bypass graft; Z95.810 Presence of automatic (implantable) cardiac defibrillator; E11.51 Type 2 diabetes mellitus with diabetic peripheral angiopathy without gangrene; E78.5 Hyperlipidemia, unspecified; Z79.4 Long term (current) use of insulin; Z87.891 Personal history of nicotine dependence; E11.22 Type 2 diabetes mellitus with diabetic chronic kidney disease; N18.9 Chronic kidney disease, unspecified; N18.3 Chronic kidney disease, stage 3 (moderate); D64.9 Anemia, unspecified; I27.20 Pulmonary hypertension, unspecified; N40.0 Benign prostatic hyperplasia without lower urinary tract symptoms; F32.9 Major depressive disorder, single episode, unspecified
CPT/HCPCS: 36415; 71045-TC-FY; 80053; 81003; 82550; 82962; 83735; 83880; 84484; 85025; 87077; 87086; 93005; 93010; 99285-25; G0378; J1644; J7030

== ENCOUNTER 2019-01-10 15:09 | Inpatient (IN) | payer OTHER, MEDICARE ==
--- NOTE | 2019-01-10 15:27 | PDOC ---
History of Present Illness - General Chief Complaint: Injury Stated Complaint: FALL - History of Present Illness Initial Comments: 01/10/19 16:10 78 y/o/m with extensive PMHx and history of falls here for a fall that occurred yesterday at 1930. He was sitting in his porch and when he got up he felt his right hip give way and he fell on his right side, he did not hit his head when he fell. He states he felt lightheaded before he fell. He states his pain is a 8 /10 right now and is worse when he walks. He was able to walk last night and today with the help of his walker. He took 800mg of Ibuprofen once yesterday with improvement. He did not have any loss of consciousness when he fell late night. He did not have any chest pain, palpitations, or SOB. He states he almost fell twice while walking outside with his walker to the ambulance this morning. He states he falls often and he always falls on his right side because his right hip gives out on him. He has been talking Colchicine for a gout flare in his left knee that started 3 days ago. He denies any weakness, numbness, tingling, fever, chills, SOB, CP, headaches, or other complaints. PMHx: CAD (4 stents, triple bypass), ICD, CHF, IDDM, COPD, kidney stones, gout, achalasia SHx: Stomach surgery for ulcers, appendectomy, kidney surgery for stones Social: Denies current tobacco use, uses a Juul. Denies alcohol or othe illicit substance use. Past History - Past Medical History Allergies/Adverse Reactions: Allergies Allergy/AdvReac Type Severity Reaction Status Date / Time pregabalin [From Lyrica] Allergy Severe Verified 01/10/19 15:14 Home Medications: Ambulatory Orders Bimatoprost [Lumigan] 1 drop IO DAILY 12/08/18 Budesonide/Formeterol Fumarate [SYMBICORT 160/4.5mcg -] 1 inh PO DAILY 12/08/18 Carvedilol 3.125 mg PO BID 12/08/18 Clopidogrel Bisulfate [Plavix] 75 mg PO DAILY 12/08/18 Escitalopram Oxalate [Lexapro -] 20 mg PO DAILY 12/08/18 Furosemide [Lasix] 20 mg PO DAILY 12/08/18 Insulin Glargine,Hum.rec.anlog [Lantus] 100 unit SQ ASDIR 12/08/18 Insulin Lispro [Humalog] 100 unit SQ DAILY 12/08/18 Pantoprazole Sodium 40 mg PO DAILY 12/08/18 Rosuvastatin Calcium [Crestor] 20 mg PO DAILY 12/08/18 Sacubitril/Valsartan [Entresto 24 mg-26 mg Tablet] 1 each PO DAILY 12/08/18 Insulin Sliding Scale [Novolog Vial Sliding Scale -] 1 vial SQ ACHS units 12/13 Anemia: No Asthma: No Cancer: No Cardiac Disorders: Yes (4 stents, triple bypass) CVA: No COPD: Yes CHF: No Dementia: No Diabetes: Yes GI Disorders: No Disorders: No HTN: No Hypercholesterolemia: Yes Kidney Stones: No Liver Disease: No Psychiatric Problems: No Seizures: No Thyroid Disease: No Lung CA: No - Surgical History Abdominal Surgery: Yes (PARTIAL GASTRECTOMY,H/O ULCERS EGD BIOPSY 2009,EGD H- PYLORI 2006,COLON 2003) Appendectomy: Yes Cardiac Surgery: Yes Cholecystectomy: Yes Lung Surgery: No Neurologic Surgery: No Orthopedic Surgery: No - Family Disease History Family Disease History: Heart Disease: Father - Reproductive History Testicular Surgery: Yes - Immunization History Immunization Up to Date: Yes - Suicide/Smoking/Psychosocial Hx Smoking Status: Yes Smoking History: Former smoker Years of Tobacco Use: 50 Have you smoked in the past 12 months: No Number of Cigarettes Smoked Daily: 5 If you are a former smoker, when did you quit?: FEW MONTHS Information on smoking cessation initiated: No 'Breaking Loose' booklet given: 07/01/18 Hx Alcohol Use: No Drug/Substance Use Hx: No Substance Use Type: Alcohol Hx Substance Use Treatment: No Review of Systems - Review of Systems Able to Perform ROS?: Yes Constitutional: No: Chills, Fever, Weakness HEENTM: Yes: Nose Congestion Respiratory: Yes: Cough. No: Shortness of Breath Cardiac (ROS): Yes: Lightheadedness. No: Chest Pain, Palpitations, Syncope ABD/GI: No: Constipated, Nausea, Vomiting : No: Dysuria, Hematuria Musculoskeletal: Yes: Back Pain, Gout (left knee), Joint Pain (right hip) Integumentary: Yes: Bruising Neurological: No: Headache, Numbness *Physical Exam - Vital Signs Last Vital Signs Temp Pulse Resp BP Pulse Ox 97.7 F 70 18 106/65 100 01/10/19 15:14 01/10/19 15:14 01/10/19 15:14 01/10/19 15:14 01/10/19 15:14 - Physical Exam General Appearance: Yes: Appropriately Dressed HEENT: positive: EOMI Neck: positive: Supple Respiratory/Chest: positive: Lungs Clear. negative: Respiratory Distress, Accessory Muscle Use, Crackles, Rales, Rhonchi Cardiovascular: positive: Regular Rhythm, Regular Rate, S1, S2 Gastrointestinal/Abdominal: positive: Normal Bowel Sounds. negative: Tender, Guarding, Rebound Extremity: positive: Normal Capillary Refill, Other (full ROM of right ankle and knee, no swelling or ecchymosis. Mild pain with ROM of of right hip, worse with internal rotation. Mild tenderness to palpation of right hip. ). negative : Swelling Integumentary: positive: Normal Color, Dry, Other (multiple small well healing scabs on both arms) Neurologic: positive: Fully Oriented, Alert, Motor Strength 5/5. negative: Numbness, Sensory Deficit ED Treatment Course - LABORATORY CBC & Chemistry Diagram: 01/10/19 16:11 01/10/19 16:11 Medical Decision Making - Medical Decision Making 01/10/19 16:31 78 y/o/m with extensive PMHx and history of falls here for a fall that occurred yesterday at 1930. He was sitting in his porch and when he got up he felt his right hip give way and he fell on his right side, he did not hit his head when he fell. He states he felt lightheaded before he fell. CBC, CMP, trops, UA, BNP ordered. Imaging of lumbosacral spine, pelvis, right hip, and right femur ordered to rule out fracture. Patient had a CT head scan on 12/08, no acute intracranial pathology noted at that time. 01/10/19 18:23 CBC grossly normal. CMP with elevated BNP however, decreased from previous visits. Slightly elevated BUN/creatinine. X-rays reviewed, no obvious fractures. Waiting on results of UA. 01/10/19 18:38 UA positive for UTI 01/10/19 19:44 Patient with recurrent falls, UTI recurrence. Admitting patient to [facility] under Dr. Eaton. *DC/Admit/Observation/Transfer Diagnosis at time of Disposition: UTI (urinary tract infection), Recurrent falls - Discharge Dispostion Condition at time of disposition: Fair - Referrals Referrals: Vikash Guerra MD [Primary Care Provider] - - Patient Instructions - Post Discharge Activity
[2019-01-10 16:34] LABS: BASO % 0.7 % (0-2.0); EOS % 2.7 % (0-4.5); HEMATOCRIT 35.6 % (35.4-49); HEMOGLOBIN 11.8 GM/dL (11.7-16.9); LYMPH % 18.8 % (8-40); MCH 25.8 pg (25.7-33.7); MCHC 33.2 g/dl (32.0-35.9); MEAN CELL VOLUME 77.9 fl (80-96); MEAN PLT VOLUME 7.3 fl (7.5-11.1); MONO % 6.2 % (3.8-10.2); NEUT % 71.6 % (42.8-82.8); PLATELET COUNT 151 K/MM3 (134-434); RBC 4.57 M/mm3 (4.00-5.60); RDW 19.3 % (11.9-15.9); WHITE BLOOD COUNT 6.7 K/mm3 (4.0-10.0)
[2019-01-10 17:01] LABS: ALBUMIN 3.6 g/dl (3.4-5.0); BILIRUBIN,TOTAL 0.6 mg/dL (0.2-1); BLOOD UREA NITROGEN 36.5 mg/dL (7-18); CALCIUM 9.4 mg/dL (8.5-10.1); CREATININE 1.5 mg/dL (0.55-1.3); POTASSIUM 4.4 mmol/L (3.5-5.1); TOT PROT 7.1 g/dl (6.4-8.2)
--- NOTE | 2019-01-10 18:01 | PDOC ---
Documentation entered by Tawnya Uribe SCRIBE, acting as scribe for Kimmie Johnson MD. Kimmie Johnson MD: This documentation has been prepared by the Jojo looney Brenda, SCRIBE, under my direction and personally reviewed by me in its entirety. I confirm that the documentation accurately reflects all work, treatment, procedures, and medical decision making performed by me. Attending Attestation - Resident Resident Name: Dick Olivialeecaridad S - ED Attending Attestation I have performed the following: I have examined & evaluated the patient, The case was reviewed & discussed with the resident, I agree w/resident's findings & plan, Exceptions are as noted - HPI HPI: 01/10/19 17:33 The patient is a 78 year old female, with a significant PMH of CAD (4 stents, triple bypass), ICD, CHF, IDDM, COPD, kidney stones, gout and achalasia, who presents to the emergency department s/p a fall that ocuured last night around 7 :30pm. As per patient, he was sitting on his porch, at which time he felt lightheaded. and when he tried to getu up he felt his right hip give out, and consequently fell on his right side. Ptaient states that he was able to ambulate last night and today with the aid of his walker.However he is currently complaining of pain at a severity of 8/10. worsened by when he walks. He also notes taking ibuprofen yesterday with improvement. The patient denies head trauma or loss of consciousness. Denies chets pain. SOB or palpations. Denies fever, chills any any GI symptoms. Denies any symptoms. Surgical history: Stomach surgery for ulcers, appendectomy, kidney surgery for stones Social History: Uses a Juul. Denies current tobacco use. Denies alcohol or other illicit substance use. PCP: Mari - Physicial Exam PE: 01/10/19 17:53 old male presents because he's having multiple falls. He isn't passing out, but he states that his legs gave way and he falls down. He is using a walker, but he is very frightened of falling again. There was no head trauma when he fell. He was on the deck with his family when he fell yesterday. However today he has not been able to ambulate w/o pain 01/10/19 17:54 Head normocephalic, atraumatic, no abrasions, no scalp laceration. Neck no midline cervical tenderness. Lungs are clear to auscultation bilaterally CVS regular rate and rhythm S1, S2 Abdomen. No rebound, no guarding. No flank pain. Musculoskeletal there is right hip and right femur tenderness to palpation. However, the patient can raise his right leg off the gurney no lumbar pinpoint vertebral tenderness skin no lacerations neuro axox3,no facial .clear speech - Medical Decision Making 01/10/19 17:59 medical history significant for COPD, CAD, peripheral vascular disease, BPH, hypertension, chronic class II, CHF, diabetes 01/10/19 18:02 PSH CABG, cholecystectomy, permanent pacemaker 01/10/19 18:04 ekg 67 bpm with a first-degree AV block, T-wave abnormalities negative at 0.02 Creatinine 1.5 and BUN of 36, glucose 131 LFTs are within normal limits. BNP 1457 cbc is Unremarkable 01/10/19 19:53 UA+++UTI and pt given rocephim IMP weakness,frequent falls, UTI and will be admitted
[2019-01-10 18:27] LABS: EPI CELLS 4.9 /HPF (0-5/HPF); HYALINE CASTS 23 /lpf (0-8); URINE APPEARANCE TURBID; URINE BACTERIA 1.2 /hpf (NEGATIVE); URINE BILIRUBIN NEGATIVE (NEGATIVE); URINE COLOR YELLOW; URINE GLUCOSE (UA) NEGATIVE (NEGATIVE); URINE KETONE NEGATIVE (NEGATIVE); URINE LEUK ESTERASE 3+ (NEGATIVE); URINE NITRITE NEGATIVE (NEGATIVE); URINE PROTEIN 1+ (NEGATIVE); URINE RBC 5 /hpf (0-4); URINE UROBILINOGEN 0.2 mg/dL (0.2-1.0); URINE WBC 461 /hpf (0-5)
[2019-01-10] MEDS ORDERED: CEFTRIAXONE 1 GM in DEXTROSE 5%-WATER - 100 ML IVPB ONE (18:43)
[2019-01-10 19:03] LABS: YEAST MODERATE YEAST (NEGATIVE)
[2019-01-10] MEDS ORDERED: CEFTRIAXONE 1 GM/50 ML BAG ONE (19:03)
--- NOTE | 2019-01-10 19:23 | PN ---
Teaching Attending Note Name of Resident: Jan Sanchez ATTENDING PHYSICIAN STATEMENT I saw and evaluated the patient. I reviewed the resident's note and discussed the case with the resident. I agree with the resident's findings and plan as documented. SUBJECTIVE: Patient is a 78 year old man with a PMH of CAD (4 stents, triple bypass), ICD, CHF, Insulin-treated DM, COPD, Kidney stones, Gout and Achalasia, who presents to the ER after a fall that ocuured last night around 7:30pm. Says he was sitting on his porch, at which time he felt lightheaded. and when he tried to getu up he felt his right hip give out, and consequently fell on his right side. Patient states that he was able to ambulate last night and today with the aid of his walker. However he is currently complaining of pain at a severity of 8/10. Worsened by walking. He also notes taking ibuprofen yesterday with improvement. The patient denies head trauma or loss of consciousness. Denies chest pain. SOB or palpations. Denies fever, chills, vomiting, nausea, dysuria, frequency or diarrhea. Uses a Juul. Has FH of CVA, CAD and cancer. Denies current tobacco use. Denies alcohol or other illicit substance use. OBJECTIVE: Alert Vital Signs Period Temp Pulse Resp BP Sys/Garcia Pulse Ox Last 24 Hr 97.7 F 70 18 106/65 100 HEENT: No Jaundice, eye redness or discharge, PERRLA, EOMI. Normocephalic, atraumatic. External ears are normal and hearing is grossly intact. No nasal discharge. Neck: Supple, nontender. No palpable adenopathy or thyromegaly. No JVD Chest: Good effort. Clear to auscultation and percussion. Heart: Regular. No S3, rub or murmur Abdomen: Not distended, soft, nontender and no HSM. No rebound or guarding. Normal bowel sounds. Ext: Peripheral pulses intact. No leg edema. Right hip tenderness and tender with straight leg raising; no lumbar vertebral tenderness. Skin: Warm and dry. No petechiae, rash or ecchymosis. Neuro: Alert. Oriented x3. CN 2-12 grossly intact. Sensation grossly intact in all four extremities and DTR are symmetric. Psych: Appropriate mood and affect. Good insight. Home Medications Medication Instructions Recorded Bimatoprost [Lumigan] 1 drop IO DAILY 12/08/18 Budesonide/Formeterol Fumarate 1 inh PO DAILY 12/08/18 [SYMBICORT 160/4.5mcg -] Carvedilol 3.125 mg PO BID 12/08/18 Clopidogrel Bisulfate [Plavix] 75 mg PO DAILY 12/08/18 Escitalopram Oxalate [Lexapro -] 20 mg PO DAILY 12/08/18 Furosemide [Lasix] 20 mg PO DAILY 12/08/18 Insulin Glargine,Hum.rec.anlog 100 unit SQ ASDIR 12/08/18 [Lantus] Insulin Lispro [Humalog] 100 unit SQ DAILY 12/08/18 Pantoprazole Sodium 40 mg PO DAILY 12/08/18 Rosuvastatin Calcium [Crestor] 20 mg PO DAILY 12/08/18 Sacubitril/Valsartan [Entresto 24 1 each PO DAILY 12/08/18 mg-26 mg Tablet] Insulin Sliding Scale [Novolog 1 vial SQ ACHS units 12/13/18 Vial Sliding Scale -] Abnormal Lab Results 01/10/19 01/10/19 01/10/19 16:11 16:11 16:11 MCV 77.9 L RDW 19.3 H MPV 7.3 L Chloride 111 H Anion Gap 6 L BUN 36.5 H Creatinine 1.5 H Random Glucose 131 H B-Natriuretic Peptide 1451.6 H Urine Protein Urine Blood Ur Leukocyte Esterase 01/10/19 18:05 MCV RDW MPV Chloride Anion Gap BUN Creatinine Random Glucose B-Natriuretic Peptide Urine Protein 1+ H Urine Blood 1+ H Ur Leukocyte Esterase 3+ H ASSESSMENT AND PLAN: 1. Fall/UTI - Fall may signal effect of UTI. No acute pathology on recent head CT. No fracture noted on femur, hip and lumbar xrays. Will get hit CT scan and continue IV Rocephin pending urine culture. Consult neurology to advise on further neurologic workup. Consult PT. EKG shows NSR with 1o AV block, nonspecific T wave changes - not significantly different from prior EKGs. Monitor on telemetry and consult cardiology for pacemaker interrogation. Low MCV with low normal HCT is concerning. Will check iron stores and refer to GI for outpatient colonoscopy. Will continue comprehensive care of all his comorbid conditions. Implement fall precautions. 2. DM For now, we will hold the home diabetes drugs and implement sliding scale insulin regimen. Provide comprehensive diabetes care with patient teaching and counseling about the importance of adherence to prescribed diabetes regimen, euglycemia, eye care and foot care. 3. Juul Use Counseled on risks associated with Juul use. We will provide patient all the necessary assistance to facilitate cessation of Juul use. 4. APRYL - Cause unclear. Has risk factors for CKD. Will get kidney sonogram, PTH , phosphate, hold lasix, permit liberal oral fluid intake and monitor urine output and daily weight. Will consult nephrology and avoid nephrotoxic agents such as NSAIDS, aminoglycosides, contrast dyes and certain Alternative medicine products. 5. Obesity Counseled on the risks associated with obesity. Will provide patient all the necessary assistance, counseling and positive reinforcement to facilitate weight loss. Consult police academy instructor. 6. DVT prophylaxis - Heparin 5000u sq tid. 7. Advance directives - Full code
--- NOTE | 2019-01-10 22:47 | HP ---
CHIEF COMPLAINT: Fell down after getting up from a seated position yesterday evening. PCP: Dr. Aguilera HISTORY OF PRESENT ILLNESS: This is a 78 year old male with PMH significant for CAD, ICD placement, CHF, DM , COPD, frequent UTIs, and frequent falls. He presented the the ER from home after he fell down yesterday evening. He was seated on a chair on his porch, and while getting up, he fell to his right. He landed on his right hip. He does not complain of feeling light headed or dizzy, did not hit his head, did not lose consciousness, and did not land on his arm or outstretched hand. He suffered from sudden onset pain in his right hip, rated 10/10, non-radiating, and aggravated by movement. He was then helped up by his family, who witnessed the event, and was brought inside, where he rested on a recliner for a while. He took an Ibuprofen to help with the pain, and then went to sleep. This morning he still felt pain in his right hip, which had now extended to his right knee as well. He had no associated dizziness, light headedness, shortness of breath, chest pain, palpitations, nausea, vomiting, diarrhea, or dysuria. He states that he has had 7 episodes of falling down over the past few months, always on his right side, and always without any prior warning signs (ie no pre- syncopal symptoms). The only history of trauma in the area is after he received a testosterone injection in his right hip 2 years ago. He felt a sudden shock down his leg during the injection, and felt pain down his leg. He was taken to the ER, but by that time the pain had subsided and he sought no further treatment. He normally ambulates with a cane. He recently visited a set up mold technician for an acute flare or gout (first diagnosed 10-15 years ago, but has only begun to involve joints other than his toe over the past 1 year), and was prescribed Colchicine. He complains of intermittent numbness and tingling in his left leg below the knee over the past 3 days. ER course was notable for: (1) UA: Blood 1+ (5 RBCs) LE 3+ (461 WBCs) (2) Rt femur/Hip pelvis/Lumbar spine X rays show no fractures (3) Ceftriaxone 1gm Recent Travel: None PAST MEDICAL HISTORY: CAD ICD placement CHF: last echo 3 months ago, unsure of EF but says it was low DM: BGM 3x, usually in late 100s to mid 200s, no hypoglycemia in the past few days, takes Humalog SS and 54 units of Lantis at night COPD: On symbicort, was on 2L O2 for 2 weeks last year, not currently on O2 Frequent UTIs, last visit was in early December, recieved Ceftriaxone on Levaquin PAST SURGICAL HISTORY: Partial gastrectomy, appendectomy, CABG 10-15 years ago, stent placement B/L bypass in lower limbs, stent palcement in L LE ICD palced last year Social History: Smoking: smoked 2-5 packs a day for 50 years, quit in late 2017, now smokes JUUL , unsure of nicotine concentration Alcohol: Quit 10 years ago Drugs: None Family History: [place]: Mother, brother [place]: Father CVA: Brother Allergies pregabalin [From Lyrica] Allergy (Severe, Verified 01/10/19 15:14) vertigo/fainted HOME MEDICATIONS: Home Medications Medication Instructions Recorded Bimatoprost [Lumigan] 1 drop IO DAILY 12/08/18 Budesonide/Formeterol Fumarate 1 inh PO DAILY 12/08/18 [SYMBICORT 160/4.5mcg -] Carvedilol 3.125 mg PO BID 12/08/18 Clopidogrel Bisulfate [Plavix] 75 mg PO DAILY 12/08/18 Escitalopram Oxalate [Lexapro -] 20 mg PO DAILY 12/08/18 Furosemide [Lasix] 20 mg PO DAILY 12/08/18 Insulin Glargine,Hum.rec.anlog 100 unit SQ ASDIR 12/08/18 [Lantus] Insulin Lispro [Humalog] 100 unit SQ DAILY 12/08/18 Pantoprazole Sodium 40 mg PO DAILY 12/08/18 Rosuvastatin Calcium [Crestor] 20 mg PO DAILY 12/08/18 Sacubitril/Valsartan [Entresto 24 1 each PO DAILY 12/08/18 mg-26 mg Tablet] Insulin Sliding Scale [Novolog 1 vial SQ ACHS units 12/13/18 Vial Sliding Scale -] REVIEW OF SYSTEMS CONSTITUTIONAL: Absent: fever, chills, diaphoresis, generalized weakness, malaise, loss of appetite, weight change HEENT: Absent: rhinorrhea, nasal congestion, throat pain, throat swelling, difficulty swallowing, mouth swelling, ear pain, eye pain, visual changes CARDIOVASCULAR: Absent: chest pain, syncope, palpitations, irregular heart rate, lightheadedness , peripheral edema RESPIRATORY: cough Absent: shortness of breath, dyspnea with exertion, orthopnea, wheezing, stridor , hemoptysis GASTROINTESTINAL: Absent: abdominal pain, abdominal distension, nausea, vomiting, diarrhea, constipation, melena, hematochezia GENITOURINARY: Absent: dysuria, frequency, urgency, hesitancy, hematuria, flank pain, genital pain MUSCULOSKELETAL: Absent: myalgia, arthralgia, joint swelling, back pain, neck pain SKIN: Absent: rash, itching, pallor HEMATOLOGIC/IMMUNOLOGIC: frequent infections Absent: easy bleeding, easy bruising, lymphadenopathy ENDOCRINE: Absent: unexplained weight gain, unexplained weight loss, heat intolerance, cold intolerance NEUROLOGIC: paresthesias Absent: headache, focal weakness, dizziness, unsteady gait, seizure, mental status changes, bladder or bowel incontinence PSYCHIATRIC: Absent: anxiety, depression, suicidal or homicidal ideation, hallucinations. PHYSICAL EXAMINATION Vital Signs - 24 hr 01/10/19 01/10/19 15:14 20:52 Temperature 97.7 F Pulse Rate 70 Pulse Rate [ 70 Apical] Respiratory 18 Rate Blood Pressure 106/65 Blood Pressure 108/54 L [Right Arm] O2 Sat by Pulse 100 Oximetry (%) GENERAL: Awake, alert, and fully oriented, in no acute distress. HEAD: Normal with no signs of trauma. EYES: Pupils equal, round and reactive to light, extraocular movements intact, sclera anicteric, conjunctiva clear. No lid lag. EARS, NOSE, THROAT: Ears normal, nares patent, oropharynx clear without exudates. Moist mucous membranes. NECK: Normal range of motion, supple without lymphadenopathy, JVD, or masses. LUNGS: Decreased breath sounds B/L, inspiratory wheeze B/L HEART: Regular rate and rhythm, normal S1 and S2 without murmur, rub or gallop. ABDOMEN: Soft, nontender, not distended, normoactive bowel sounds, no guarding, no rebound, no masses. No hepatomegaly or splenomegaly. MUSCULOSKELETAL: Normal range of motion at all joints. No bony deformities or tenderness. No CVA tenderness. UPPER EXTREMITIES: 2+ pulses, warm, well-perfused. No cyanosis. No clubbing. No peripheral edema. LOWER EXTREMITIES: 2+ pulses, warm, well-perfused. No calf tenderness. No peripheral edema. Site of fall shows no bruising or tenderness, and range of motion is normal NEUROLOGICAL: Motor: RUE 5/5 LUE 5/5 RLE 4/5 LLE 4/5 Sensation: UE intact LE decreased below the mid thigh B/L PSYCHIATRIC: Cooperative. Good eye contact. Appropriate mood and affect. SKIN: Warm, dry, normal turgor, no rashes or lesions noted, normal capillary refill. Laboratory Results - last 24 hr 01/10/19 01/10/19 01/10/19 16:11 16:11 16:11 WBC 6.7 RBC 4.57 Hgb 11.8 Hct 35.6 MCV 77.9 L MCH 25.8 MCHC 33.2 RDW 19.3 H Plt Count 151 MPV 7.3 L Absolute Neuts (auto) 4.8 Neutrophils % 71.6 Lymphocytes % 18.8 Monocytes % 6.2 Eosinophils % 2.7 D Basophils % 0.7 Nucleated RBC % 0 Sodium 140 Potassium 4.4 Chloride 111 H Carbon Dioxide 24 Anion Gap 6 L BUN 36.5 H Creatinine 1.5 H Est GFR (CKD-EPI)AfAm 51.67 Est GFR (CKD-EPI)NonAf 44.58 Random Glucose 131 H Calcium 9.4 Total Bilirubin 0.6 AST 19 ALT 33 Alkaline Phosphatase 109 Creatine Kinase 37 Troponin I < 0.02 B-Natriuretic Peptide Total Protein 7.1 Albumin 3.6 Urine Color Urine Appearance Urine pH Ur Specific [place] Urine Protein Urine Glucose (UA) Urine Ketones Urine Blood Urine Nitrite Urine Bilirubin Urine Urobilinogen Ur Leukocyte Esterase Urine WBC (Auto) Urine RBC (Auto) Urine Casts (Auto) U Epithel Cells (Auto) Urine Bacteria (Auto) Urine Yeast (Auto) 01/10/19 01/10/19 16:11 18:05 WBC RBC Hgb Hct MCV MCH MCHC RDW Plt Count MPV Absolute Neuts (auto) Neutrophils % Lymphocytes % Monocytes % Eosinophils % Basophils % Nucleated RBC % Sodium Potassium Chloride Carbon Dioxide Anion Gap BUN Creatinine Est GFR (CKD-EPI)AfAm Est GFR (CKD-EPI)NonAf Random Glucose Calcium Total Bilirubin AST ALT Alkaline Phosphatase Creatine Kinase Troponin I B-Natriuretic Peptide 1451.6 H Total Protein Albumin Urine Color Yellow Urine Appearance Turbid Urine pH 5.0 Ur Specific [place] 1.011 Urine Protein 1+ H Urine Glucose (UA) Negative Urine Ketones Negative Urine Blood 1+ H Urine Nitrite Negative Urine Bilirubin Negative Urine Urobilinogen 0.2 Ur Leukocyte Esterase 3+ H Urine WBC (Auto) 461 Urine RBC (Auto) 5 Urine Casts (Auto) 23 U Epithel Cells (Auto) 4.9 Urine Bacteria (Auto) 1.2 Urine Yeast (Auto) Moderate yeast ASSESSMENT/PLAN: #Falls - 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 - Rt femur/Hip pelvis/Lumbar spine X rays show no fractures - CT Hip ordered, X ray may miss linear/small fractures - Neuro consulted - EKG shows NSR with 1st degree AV block - Tele monitoring - Cardio consulted to r/o cardiac cause of falls - PT order placed #Frequent UTIs - May be responsible for falls - UA: Blood 1+ (5 RBCs) LE 3+ (461 WBCs) - given Ceftriaxone 1gm - Renal USG to check for anatomical abnormalities/obstruction - Nephro consulted #APRYL - BUN:Cr 36.5/1.5 - Last BUN:Cr was on 12/13: 26/1.4 - Renal USG to check for anatomical abnormalities/obstruction - Nephro consulted - Holding Lasix #Low MCV - MCV 77.9, Hct 35.6 (borderline normal) - Fe studies ordered to check for Fe deficiency anemia - FOBT serial ordered to check for blood loss #Hx of DM - Novolog SS started #FEN - Na controlled diet #DVT PE - Heparin 5000 SQ (avoid Lovenox due to APRYL) Visit type - Emergency Visit Emergency Visit: Yes ED Registration Date: 01/10/19 Care time: The patient presented to the Emergency Department on the above date and was hospitalized for further evaluation of their emergent condition. - New Patient This patient is new to me today: Yes Date on this admission: 01/11/19 - Critical Care Critical Care patient: No ATTENDING PHYSICIAN STATEMENT I saw and evaluated the patient. I reviewed the resident's note and discussed the case with the resident. I agree with the resident's findings and plan as documented. SUBJECTIVE: OBJECTIVE: ASSESSMENT AND PLAN:
[2019-01-10] MEDS ORDERED: HEPARIN NA (PORCINE) 5,000 UNITS/ML 1ML VIAL ONE (23:09)
[2019-01-10] MEDS: HEPARIN NA (PORCINE) 5,000 UNITS/ML 1ML VIAL SQ SCH (23:13)
[2019-01-10] MEDS ORDERED: MELATONIN 5 MG TABLETS PO ONE (23:15)
[2019-01-11] MEDS ORDERED: HEPARIN NA (PORCINE) 5,000 UNITS/ML 1ML VIAL ONE ×2 (06:13→22:10)
[2019-01-11] MEDS: HEPARIN NA (PORCINE) 5,000 UNITS/ML 1ML VIAL SQ SCH ×3 (06:25→22:27)
[2019-01-11] MEDS: INSULIN SLIDING SCALE (NOVOLOG) 1 VIAL SQ SCH ×4 (06:25→22:53)
[2019-01-11 07:36] LABS: EOS % 3.6 % (0-4.5); HEMATOCRIT 30.1 % (35.4-49); HEMOGLOBIN 10.3 GM/dL (11.7-16.9); LYMPH % 21.1 % (8-40); MCH 26.4 pg (25.7-33.7); MCHC 34.1 g/dl (32.0-35.9); MEAN CELL VOLUME 77.3 fl (80-96); MEAN PLT VOLUME 7.7 fl (7.5-11.1); MONO % 7.5 % (3.8-10.2); NEUT % 66.8 % (42.8-82.8); PLATELET COUNT 124 K/MM3 (134-434); RBC 3.89 M/mm3 (4.00-5.60); RDW 19.3 % (11.9-15.9); WHITE BLOOD COUNT 5.2 K/mm3 (4.0-10.0)
[2019-01-11 07:42] LABS: ALBUMIN 3.1 g/dl (3.4-5.0); BILIRUBIN,TOTAL 0.4 mg/dL (0.2-1); BLOOD UREA NITROGEN 38.9 mg/dL (7-18); CALCIUM 8.9 mg/dL (8.5-10.1); CREATININE 1.5 mg/dL (0.55-1.3); TOT PROT 6.2 g/dl (6.4-8.2)
[2019-01-11 07:43] LABS: PHOSPHOROUS 4.1 mg/dL (2.5-4.9)
[2019-01-11] MEDS ORDERED: POLYETHYLENE GLYCOL 3350 119 GM BTL PO ONE (08:25)
--- NOTE | 2019-01-11 08:46 | CONSULT ---
Consultation: CONSULT SERVICE: Nephrology Service (Dr. Teague) HISTORY OF PRESENT ILLNESS: 78yo M with h/o of HFrEF (25-30%) s/p ICD, CAD s/p CABG, PAD requiring b/l fem-pop bypass, LE PCI, T2DM, COPD (2LNC at home; electronic cig use), HTN, and HLD who presented originally because of falling down 2/2 to weakness in his lower extremities. During his workup he was seen to have a Cr of 1.5 and we were consulted for evaluation of his renal status. Pt has a history of multiple falls and was here in 08/07/2018 with a Cr of 1.1 and UA showing trace protein. Pt has never seen a claim professional before and has only seen a hand edger outpatient for an acute gout flare. Pt does NOT routinely takes Colchicine at home, and denies any extra ibuprofen or aleve use. Pt reports his urine has been a light brown for the past 2 months that he noticed. He states he drinks only 4 cups of water per day (for the past month). He reports having multiple episodes of nephrolithiasis in the past. Currently pt reports having dull R paraspinal lumbar pain, but denies any abdominal or CVA pain. Pt denies any dysuria, polyuria. PMHx: As above PSHx: CABG (10-15 years prior) Stent LLE and b/l fem-pop bypass ICD placement (1 year ago) Bilroth II gastrectomy Heller's myotomy 2/2 to achalasia SoHx: Tobacco - Currently smokes electronic cigarettes; prior cigarette (2-5 ppd for 50 years) Alcohol - Denies Illicit drugs - Denies REVIEW OF SYSTEMS: As per HPI PHYSICAL EXAMINATION Vital Signs 01/10/19 01/10/19 01/11/19 15:14 20:52 00:00 Temperature 97.7 F Pulse Rate 70 Pulse Rate [ 70 64 Apical] Respiratory 18 20 Rate Blood Pressure 106/65 Blood Pressure 108/54 L 106/52 L [Right Arm] O2 Sat by Pulse 100 97 Oximetry (%) 01/11/19 01/11/19 00:28 06:41 Temperature Pulse Rate Pulse Rate [ 60 Apical] Respiratory 18 Rate Blood Pressure Blood Pressure 124/57 L [Right Arm] O2 Sat by Pulse 98 98 Oximetry (%) GENERAL: NAD, awake, alert, and fully oriented HEENT: NC/AT, EOMI, BIRGIT, sclera anicteric, dry mucosa NECK: No JVD LUNGS: CTA bilaterally. No wheezes, and no crackles. No accessory muscle use. HEART: RRR, normal S1 and S2 without murmur, rub or gallop. ABDOMEN: Soft, NT/ND, normoactive bowel sounds, no guarding. No hepatomegaly or splenomegaly. MUSCULOSKELETAL: No CVA tenderness. R lumbar paraspinal tenderness EXTREMITIES: 1+ DP pulses b/l, warm, No calf tenderness. No peripheral edema. SKIN: Warm, dry, o rashes or lesions noted. Laboratory Results - last 24 hr 01/10/19 01/10/19 01/10/19 16:11 16:11 16:11 WBC 6.7 RBC 4.57 Hgb 11.8 Hct 35.6 MCV 77.9 L MCH 25.8 MCHC 33.2 RDW 19.3 H Plt Count 151 MPV 7.3 L Absolute Neuts (auto) 4.8 Neutrophils % 71.6 Lymphocytes % 18.8 Monocytes % 6.2 Eosinophils % 2.7 D Basophils % 0.7 Nucleated RBC % 0 Sodium 140 Potassium 4.4 Chloride 111 H Carbon Dioxide 24 Anion Gap 6 L BUN 36.5 H Creatinine 1.5 H Est GFR (CKD-EPI)AfAm 51.67 Est GFR (CKD-EPI)NonAf 44.58 POC Glucometer Random Glucose 131 H Calcium 9.4 Phosphorus Iron TIBC Iron Saturation Unsaturated IBC Total Bilirubin 0.6 AST 19 ALT 33 Alkaline Phosphatase 109 Creatine Kinase 37 Troponin I < 0.02 B-Natriuretic Peptide Total Protein 7.1 Albumin 3.6 Urine Color Urine Appearance Urine pH Ur Specific [place] Urine Protein Urine Glucose (UA) Urine Ketones Urine Blood Urine Nitrite Urine Bilirubin Urine Urobilinogen Ur Leukocyte Esterase Urine WBC (Auto) Urine RBC (Auto) Urine Casts (Auto) U Epithel Cells (Auto) Urine Bacteria (Auto) Urine Yeast (Auto) 01/10/19 01/10/19 01/11/19 16:11 18:05 06:20 WBC 5.2 RBC 3.89 L Hgb 10.3 L Hct 30.1 L D MCV 77.3 L MCH 26.4 MCHC 34.1 RDW 19.3 H Plt Count 124 L MPV 7.7 Absolute Neuts (auto) 3.5 Neutrophils % 66.8 Lymphocytes % 21.1 Monocytes % 7.5 Eosinophils % 3.6 Basophils % 1.0 Nucleated RBC % 0 Sodium Potassium Chloride Carbon Dioxide Anion Gap BUN Creatinine Est GFR (CKD-EPI)AfAm Est GFR (CKD-EPI)NonAf POC Glucometer Random Glucose Calcium Phosphorus Iron TIBC Iron Saturation Unsaturated IBC Total Bilirubin AST ALT Alkaline Phosphatase Creatine Kinase Troponin I B-Natriuretic Peptide 1451.6 H Total Protein Albumin Urine Color Yellow Urine Appearance Turbid Urine pH 5.0 Ur Specific [place] 1.011 Urine Protein 1+ H Urine Glucose (UA) Negative Urine Ketones Negative Urine Blood 1+ H Urine Nitrite Negative Urine Bilirubin Negative Urine Urobilinogen 0.2 Ur Leukocyte Esterase 3+ H Urine WBC (Auto) 461 Urine RBC (Auto) 5 Urine Casts (Auto) 23 U Epithel Cells (Auto) 4.9 Urine Bacteria (Auto) 1.2 Urine Yeast (Auto) Moderate yeast 01/11/19 01/11/19 01/11/19 06:20 06:20 06:20 WBC RBC Hgb Hct MCV MCH MCHC RDW Plt Count MPV Absolute Neuts (auto) Neutrophils % Lymphocytes % Monocytes % Eosinophils % Basophils % Nucleated RBC % Sodium 141 Potassium 4.0 Chloride 112 H Carbon Dioxide 22 Anion Gap 7 L BUN 38.9 H Creatinine 1.5 H Est GFR (CKD-EPI)AfAm 51.67 Est GFR (CKD-EPI)NonAf 44.58 POC Glucometer 144 Random Glucose 142 H Calcium 8.9 Phosphorus 4.1 Iron 49 L TIBC 224 L Iron Saturation 21 Unsaturated IBC 175 L Total Bilirubin 0.4 AST 15 ALT 26 Alkaline Phosphatase 99 Creatine Kinase Troponin I B-Natriuretic Peptide Total Protein 6.2 L Albumin 3.1 L Urine Color Urine Appearance Urine pH Ur Specific [place] Urine Protein Urine Glucose (UA) Urine Ketones Urine Blood Urine Nitrite Urine Bilirubin Urine Urobilinogen Ur Leukocyte Esterase Urine WBC (Auto) Urine RBC (Auto) Urine Casts (Auto) U Epithel Cells (Auto) Urine Bacteria (Auto) Urine Yeast (Auto) Active Medications Generic Name Dose Route Start Last Admin Trade Name Freq PRN Reason Stop Dose Admin Carvedilol 3.125 mg 01/11/19 10:00 Coreg - PO BID [facility] Colchicine 0.6 mg 01/11/19 10:00 Colcrys PO DAILY [facility] Docusate Sodium 100 mg 01/11/19 14:00 Colace - PO TID [facility] Heparin Sodium (Porcine) 5,000 unit 01/10/19 23:00 01/11/19 06:25 Heparin - SQ 5,000 unit TID [facility] Administration Ceftriaxone Sodium 1 gm/ 50 mls @ 100 mls/hr 01/11/19 10:00 Dextrose IVPB DAILY [facility] Insulin Aspart 1 vial 01/11/19 07:00 01/11/19 06:25 Novolog Vial Sliding Scale - SQ Not Given ACHS [facility] Protocol Rosuvastatin Calcium 20 mg 01/11/19 22:00 Crestor - PO HS [facility] Tamsulosin HCl 0.4 mg 01/11/19 08:30 Flomax - PO DAILY@0830 [facility] ASSESSMENT/PLAN: CKD vs. APRYL on CKD Complicated urinary tract infection Frequent falls CAD s/p CABG and ICD placement HFrEF HLD DM COPD --Likely multifactorial etiology for Cr raise: CKD 2/2 to HTN, IDDM, NSAID use with acute UTI --Pt's renal US without any acute findings. Chronically pt has atrophic R kidney with L renal cysts --Renal cysts will have to be followed on outpatient basis --UA this admission shows worsening of pt's proteinuria --Will need CKD workup on an outpatient basis --Glucose and BP control paramount --Ideally will need ACEi or ARB once pt's Cr is stabilized and BP allowing --Recommend transitioning from colchicine to allopurinol to minimize NSAID use --Avoid nephrotoxic agents --UTI noted on UA with UCx pending currently --Mod yeast and bacteria noted --F/u casts on UA --Urine lytes ordered --Gentle hydration: NS@83cc/hr max 1L Thank you for this consultative opportunity Case discussed with Dr. Ho Alvarado, DO - IM PGY-3 Visit type - Emergency Visit Emergency Visit: Yes ED Registration Date: 01/10/19 Care time: The patient presented to the Emergency Department on the above date and was hospitalized for further evaluation of their emergent condition. - New Patient This patient is new to me today: Yes Date on this admission: 01/11/19 - Critical Care Critical Care patient: No
[2019-01-11] MEDS: TAMSULOSIN HCL 0.4 MG CAP PO SCH (09:11)
[2019-01-11] MEDS ORDERED: ALBUTEROL SO4 2.5/IPRATROPIUM 0.5 INH SOL 3 ML VIAL.NEB. NEB PRN (09:38)
[2019-01-11] MEDS ORDERED: CEFTRIAXONE 1 GM in DEXTROSE 5%-WATER - 50 ML IVPB SCH (10:00)
--- NOTE | 2019-01-11 10:07 | PN ---
Physical Exam: SUBJECTIVE: Patient seen and examined at bedside. Complaint of back pain OBJECTIVE: Vital Signs Period Temp Pulse Resp BP Sys/Garcia Pulse Ox Last 24 Hr 97.7 F-98.2 F 60-70 18-20 106-126/50-65 97-100 Gen: AAOx3, NAD HEENT: NCAT, EOMI Neck: supple, no jvd, trachea central Cardio: rrr, normal s1s2, no mrg noted Pulm: cta b/l Abd: soft, nontender, nondistended Ext: no edema, 1+ pulses Neuro: CN 2-12 intact, b/l UE strength 5/5, LLE 5/5, RLE hip flexion against resistance limited by back pain. Sensation intact throughout. Note, on standing pt became very dizzy and had to sit back down. Gait not assessed. Laboratory Results - last 24 hr 01/10/19 01/10/19 01/10/19 16:11 16:11 16:11 WBC 6.7 RBC 4.57 Hgb 11.8 Hct 35.6 MCV 77.9 L MCH 25.8 MCHC 33.2 RDW 19.3 H Plt Count 151 MPV 7.3 L Absolute Neuts (auto) 4.8 Neutrophils % 71.6 Lymphocytes % 18.8 Monocytes % 6.2 Eosinophils % 2.7 D Basophils % 0.7 Nucleated RBC % 0 Sodium 140 Potassium 4.4 Chloride 111 H Carbon Dioxide 24 Anion Gap 6 L BUN 36.5 H Creatinine 1.5 H Est GFR (CKD-EPI)AfAm 51.67 Est GFR (CKD-EPI)NonAf 44.58 POC Glucometer Random Glucose 131 H Calcium 9.4 Phosphorus Iron TIBC Iron Saturation Unsaturated IBC Total Bilirubin 0.6 AST 19 ALT 33 Alkaline Phosphatase 109 Creatine Kinase 37 Troponin I < 0.02 B-Natriuretic Peptide Total Protein 7.1 Albumin 3.6 Urine Color Urine Appearance Urine pH Ur Specific [place] Urine Protein Urine Glucose (UA) Urine Ketones Urine Blood Urine Nitrite Urine Bilirubin Urine Urobilinogen Ur Leukocyte Esterase Urine WBC (Auto) Urine RBC (Auto) Urine Casts (Auto) U Epithel Cells (Auto) Urine Bacteria (Auto) Urine Yeast (Auto) 01/10/19 01/10/19 01/11/19 16:11 18:05 06:20 WBC 5.2 RBC 3.89 L Hgb 10.3 L Hct 30.1 L D MCV 77.3 L MCH 26.4 MCHC 34.1 RDW 19.3 H Plt Count 124 L MPV 7.7 Absolute Neuts (auto) 3.5 Neutrophils % 66.8 Lymphocytes % 21.1 Monocytes % 7.5 Eosinophils % 3.6 Basophils % 1.0 Nucleated RBC % 0 Sodium Potassium Chloride Carbon Dioxide Anion Gap BUN Creatinine Est GFR (CKD-EPI)AfAm Est GFR (CKD-EPI)NonAf POC Glucometer Random Glucose Calcium Phosphorus Iron TIBC Iron Saturation Unsaturated IBC Total Bilirubin AST ALT Alkaline Phosphatase Creatine Kinase Troponin I B-Natriuretic Peptide 1451.6 H Total Protein Albumin Urine Color Yellow Urine Appearance Turbid Urine pH 5.0 Ur Specific [place] 1.011 Urine Protein 1+ H Urine Glucose (UA) Negative Urine Ketones Negative Urine Blood 1+ H Urine Nitrite Negative Urine Bilirubin Negative Urine Urobilinogen 0.2 Ur Leukocyte Esterase 3+ H Urine WBC (Auto) 461 Urine RBC (Auto) 5 Urine Casts (Auto) 23 U Epithel Cells (Auto) 4.9 Urine Bacteria (Auto) 1.2 Urine Yeast (Auto) Moderate yeast 01/11/19 01/11/19 01/11/19 06:20 06:20 06:20 WBC RBC Hgb Hct MCV MCH MCHC RDW Plt Count MPV Absolute Neuts (auto) Neutrophils % Lymphocytes % Monocytes % Eosinophils % Basophils % Nucleated RBC % Sodium 141 Potassium 4.0 Chloride 112 H Carbon Dioxide 22 Anion Gap 7 L BUN 38.9 H Creatinine 1.5 H Est GFR (CKD-EPI)AfAm 51.67 Est GFR (CKD-EPI)NonAf 44.58 POC Glucometer 144 Random Glucose 142 H Calcium 8.9 Phosphorus 4.1 Iron 49 L TIBC 224 L Iron Saturation 21 Unsaturated IBC 175 L Total Bilirubin 0.4 AST 15 ALT 26 Alkaline Phosphatase 99 Creatine Kinase Troponin I B-Natriuretic Peptide Total Protein 6.2 L Albumin 3.1 L Urine Color Urine Appearance Urine pH Ur Specific [place] Urine Protein Urine Glucose (UA) Urine Ketones Urine Blood Urine Nitrite Urine Bilirubin Urine Urobilinogen Ur Leukocyte Esterase Urine WBC (Auto) Urine RBC (Auto) Urine Casts (Auto) U Epithel Cells (Auto) Urine Bacteria (Auto) Urine Yeast (Auto) Active Medications Generic Name Dose Route Start Last Admin Trade Name Freq PRN Reason Stop Dose Admin Acetaminophen 650 mg 01/11/19 09:36 Tylenol Oral Solution - PO Q6H PRN PAIN Albuterol/Ipratropium 1 amp 01/11/19 09:38 Duoneb - NEB Q6H PRN SHORTNESS OF BREATH Carvedilol 3.125 mg 01/11/19 10:00 Coreg - PO BID [facility] Colchicine 0.6 mg 01/11/19 10:00 Colcrys PO DAILY [facility] Docusate Sodium 100 mg 01/11/19 14:00 Colace - PO TID [facility] Ferrous Sulfate 325 mg 01/11/19 10:00 Feosol - PO DAILY [facility] Heparin Sodium (Porcine) 5,000 unit 01/10/19 23:00 01/11/19 06:25 Heparin - SQ 5,000 unit TID [facility] Administration Ceftriaxone Sodium 1 gm/ 50 mls @ 100 mls/hr 01/11/19 10:00 Dextrose IVPB DAILY [facility] Insulin Aspart 1 vial 01/11/19 07:00 01/11/19 06:25 Novolog Vial Sliding Scale - SQ Not Given ACHS [facility] Protocol Rosuvastatin Calcium 20 mg 01/11/19 22:00 Crestor - PO HS [facility] Tamsulosin HCl 0.4 mg 01/11/19 08:30 01/11/19 09:11 Flomax - PO 0.4 mg DAILY@0830 [facility] Administration ASSESSMENT/PLAN: This is a 78 year old male with PMH significant for CAD, ICD placement, CHF, DM , COPD, frequent UTIs, and frequent falls who presented to ED with fall to his right. 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 No further workup - EKG shows NSR with 1st degree AV block - Tele monitoring - Cardio consulted to r/o cardiac cause of falls - PT order placed -Orthostatics #Frequent UTIs - May be responsible for falls - UA: Blood 1+ (5 RBCs) LE 3+ (461 WBCs) - given Ceftriaxone 1gm - Renal USG to check for anatomical abnormalities/obstruction - Nephro consulted. f/u recs #APRYL - Renal US unremakable for anatomical cause. Noted to have cyst and atrophic R kidney - Nephro consulted. F/u recs - Holding Lasix - avoid NSAIDs #Low MCV - MCV 77.9, Hct 35.6 (borderline normal) - Fe & TIBC low - FOBT serial ordered to check for blood loss #Hx of DM - Novolog SS started #FEN - Na controlled diet #DVT PE - Heparin 5000 SQ (avoid Lovenox due to APRYL) Visit type - Emergency Visit Emergency Visit: Yes ED Registration Date: 01/10/19 Care time: The patient presented to the Emergency Department on the above date and was hospitalized for further evaluation of their emergent condition. - New Patient This patient is new to me today: Yes Date on this admission: 01/11/19 - Critical Care Critical Care patient: No ATTENDING PHYSICIAN STATEMENT I saw and evaluated the patient. I reviewed the resident's note and discussed the case with the resident. I agree with the resident's findings and plan as documented. SUBJECTIVE: OBJECTIVE: ASSESSMENT AND PLAN:
--- NOTE | 2019-01-11 10:11 | CON.NEURO ---
Consult - Past Medical History Cardio/Vascular: Yes: CAD, CHF, HTN, Hyperlipdemia, [place] Pulmonary: Yes: Asthma, Bronchitis, COPD, Pneumonia. No: Cancer, O2 Dependent, Previously Intubated, Pulmonary Embolus, Pulmonary Fibrosis, Sleep Apnea Gastrointestinal: Yes: Constipation Renal/: Yes: BPH Musculoskeletal: Yes: Chronic low back pain, Osteoarthritis Endocrine: Yes: Diabetes Mellitus - Past Surgical History Past Surgical History: Yes: CABG, Cholecystectomy, Permanent Pacemaker - Alcohol/Substance Use Hx Alcohol Use: No History of Substance Use: reports: None - Smoking History Smoking history: Former smoker Have you smoked in the past 12 months: No Aproximately how many cigarettes per day: 5 If you are a former smoker, when did you quit?: FEW MONTHS - Social History Usual Living Arrangement: With Spouse ADL: Independent Occupation: retired: worked for [employer] History of Recent Travel: No Home Medications - Allergies Allergies/Adverse Reactions: Allergies Allergy/AdvReac Type Severity Reaction Status Date / Time pregabalin [From Lyrica] Allergy Severe Verified 01/10/19 15:14 - Home Medications Home Medications: Ambulatory Orders Bimatoprost [Lumigan] 1 drop IO DAILY 12/08/18 Budesonide/Formeterol Fumarate [SYMBICORT 160/4.5mcg -] 16 inh PO BID 12/08/18 Carvedilol 3.125 mg PO BID 12/08/18 Clopidogrel Bisulfate [Plavix] 75 mg PO DAILY 12/08/18 Escitalopram Oxalate [Lexapro -] 20 mg PO DAILY 12/08/18 Furosemide [Lasix] 20 mg PO DAILY 12/08/18 Insulin Glargine,Hum.rec.anlog [Lantus] 100 unit SQ ASDIR 12/08/18 Insulin Lispro [Humalog] 10 - 34 unit SQ TID 12/08/18 Pantoprazole Sodium 40 mg PO DAILY 12/08/18 Rosuvastatin Calcium [Crestor] 20 mg PO HS 12/08/18 Sacubitril/Valsartan [Entresto 24 mg-26 mg Tablet] 24 - 26 mg PO BID 12/08/18 Insulin Sliding Scale [Novolog Vial Sliding Scale -] 1 vial SQ ACHS units 12/13 Albuterol Sulfate Inhaler - [Ventolin Hfa Inhaler -] 2 inh PO TID 01/11/19 Allopurinol [Zyloprim -] 100 mg PO BID 01/11/19 Blood Sugar Diagnostic [Test Strips] 1 each MC TID 01/11/19 Colchicine [Colcrys] 0.6 mg PO DAILY 01/11/19 Ibuprofen 800 mg PO TID 01/11/19 Insulin Glargine,Hum.rec.anlog [Lantus Solostar PEN (NF)] 58 units SQ HS Insulin Lispro [Humalog] 10 - 34 unit SQ TID 01/11/19 Tamsulosin HCl 0.4 mg PO DAILY 01/11/19 Family Disease History - Family Disease History Family Disease History: [place]: Mother (Gastric), Other: Father (CAD), Brother, Sister, Son, Daughter Physical Exam-Neuro Vital Signs: Vital Signs Temperature 98.2 F 01/11/19 09:28 Pulse Rate 69 01/11/19 09:28 Respiratory Rate 20 01/11/19 09:28 Blood Pressure 126/50 L 01/11/19 09:28 O2 Sat by Pulse Oximetry (%) 98 01/11/19 09:00 Labs: CBC, BMP 01/11/19 06:20 01/11/19 06:20 Assessment/Plan cc Recurrent fall HPI 78 year old male history of CAD,CHF,ICD placement, CODPD,DM. Bing presented with recurrent falls over last few months. He has total of 7 fall. He denies any feeling dizzy, spinning of dysbalance feeling before fall. He would suddenly fall, and he describes as possible very brief LOC. Patient would regain consiousnesss very quicky , there is no seizure or incontinence . Patient also been feeling right hip pain following fall. He also been diagnosed with gout recently. PAST MEDICAL HISTORY: CAD ICD placement CHF: last echo 3 months ago, unsure of EF but says it was low DM: BGM 3x, usually in late 100s to mid 200s, no hypoglycemia in the past few days, takes Humalog SS and 54 units of Lantis at night COPD: On symbicort, was on 2L O2 for 2 weeks last year, not currently on O2 Frequent UTIs, last visit was in early December, recieved Ceftriaxone on Levaquin PAST SURGICAL HISTORY: Partial gastrectomy, appendectomy, CABG 10-15 years ago, stent placement B/L bypass in lower limbs, stent palcement in L LE ICD palced last year Social History: Smoking: smoked 2-5 packs a day for 50 years, quit in late 2018, now smokes JUUL , unsure of nicotine concentration Alcohol: Quit 10 years ago Drugs: None Family History: [place]: Mother, brother [place]: Father CVA: Brother Allergies pregabalin [From Lyrica] Allergy (Severe, Verified 01/10/19 15:14) vertigo/fainted HOME MEDICATIONS: Home Medications Medication Instructions Recorded Bimatoprost [Lumigan] 1 drop IO DAILY 12/08/18 Budesonide/Formeterol Fumarate 1 inh PO DAILY 12/08/18 [SYMBICORT 160/4.5mcg -] Carvedilol 3.125 mg PO BID 12/08/18 Clopidogrel Bisulfate [Plavix] 75 mg PO DAILY 12/08/18 Escitalopram Oxalate [Lexapro -] 20 mg PO DAILY 12/08/18 Furosemide [Lasix] 20 mg PO DAILY 12/08/18 Insulin Glargine,Hum.rec.anlog 100 unit SQ ASDIR 12/08/18 [Lantus] Insulin Lispro [Humalog] 100 unit SQ DAILY 12/08/18 Pantoprazole Sodium 40 mg PO DAILY 12/08/18 Rosuvastatin Calcium [Crestor] 20 mg PO DAILY 12/08/18 Sacubitril/Valsartan [Entresto 24 1 each PO DAILY 12/08/18 mg-26 mg Tablet] Insulin Sliding Scale [Novolog 1 vial SQ ACHS units 12/13/18 Vial Sliding Scale -] ROS,FH,SH reviewed in chart NEUROLOGICAL EXAMINATION Alert oriented x 3, speech is normal, neck is supple eomi, pupils reactive no face asymmetry moving all extremity, there is right hip pain on hip flexion sensation is noraml reflex are generalized diminished ct head done on december 08 showed 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 1Multiple fall, he describes there is no aura and along wtih very brief LOC. Neurological exam is noraml. 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 Most likley these episodes are syncope Plan: There is no need for any work up from neurological point of view, he do have vascular risk factor and on maximum medical therapy, He do not need ct head - carotid ultrasound can be obtained - continue current level of care Thanking you so much Cornelius Powell MD
[2019-01-11] MEDS ORDERED: ACETAMINOPHEN 650 MG/20.3 ML ORAL SOLUTION (CUPS) ONE (10:26)
[2019-01-11] MEDS: ACETAMINOPHEN 650 MG/20.3 ML ORAL SOLUTION (CUPS) PO PRN (10:28)
[2019-01-11] MEDS ORDERED: SODIUM CHLORIDE 1,000 ML IV SCH (12:30)
--- NOTE | 2019-01-11 12:44 | EKG ---
Test Reason : Blood Pressure : / mmHG Vent. Rate : 067 BPM Atrial Rate : 067 BPM P-R Int : 240 ms QRS Dur : 134 ms QT Int : 450 ms P-R-T Axes : 096 -29 124 degrees QTc Int : 475 ms SINUS RHYTHM WITH 1ST DEGREE A-V BLOCK NON-SPECIFIC INTRA-VENTRICULAR CONDUCTION BLOCK T WAVE ABNORMALITY, CONSIDER LATERAL ISCHEMIA ABNORMAL ECG WHEN COMPARED WITH ECG OF 12-DEC-2018 19:21, NO SIGNIFICANT CHANGE WAS FOUND Confirmed by Raymundo June MD ([id number]) on 01/11/2019 12:44:24 PM Referred By: Confirmed By:Raymundo June MD
--- NOTE | 2019-01-11 12:52 | PN ---
Teaching Attending Note Name of Resident: Richard Alvarado (Nephrology) ATTENDING PHYSICIAN STATEMENT I saw and evaluated the patient. I reviewed the resident's note and discussed the case with the resident. I agree with the resident's findings and plan as documented. Nephrology 78yo M with h/o of HFrEF (25-30%) s/p ICD, CAD s/p CABG, PAD requiring b/l fem- pop bypass, LE PCI, T2DM, COPD (2LNC at home; electronic cig use), HTN, and HLD who presents with weakness and fall. I was called to evaluate him for elevated cheesemaker helper. He has history of ckd. He denies dysuria. He says appetite is poor. He denies nsaid use. He was found to have a UTI. pmhx ckd, chf, cad, pvd pshx fem pop, penile prosthesis allergy pregabalin fam hx denies social smokes e cigs ros fatigue Laboratory Tests 09/27/18 09/28/18 09/29/18 16:02 05:30 05:30 Sodium Potassium Creatinine 1.5 H 1.4 H 1.4 H Urine Protein Urine Blood Ur Leukocyte Esterase Urine WBC (Auto) 12/08/18 12/12/18 12/13/18 11:50 19:50 06:43 Sodium Potassium Creatinine 1.6 H 1.4 H 1.4 H Urine Protein Urine Blood Ur Leukocyte Esterase Urine WBC (Auto) 01/10/19 01/10/19 01/11/19 16:11 18:05 06:20 Sodium 141 Potassium 4.0 Creatinine 1.5 H 1.5 H Urine Protein 1+ H Urine Blood 1+ H Ur Leukocyte Esterase 3+ H Urine WBC (Auto) 461 Current Medications Generic Name Dose Route Start Last Admin Trade Name Freq PRN Reason Stop Dose Admin Acetaminophen 650 mg 01/11/19 09:36 01/11/19 10:28 Tylenol Oral Solution - PO 650 mg Q6H PRN Administration PAIN Albuterol/Ipratropium 1 amp 01/11/19 09:38 Duoneb - NEB Q6H PRN SHORTNESS OF BREATH Carvedilol 3.125 mg 01/11/19 10:00 Coreg - PO BID [facility] Colchicine 0.6 mg 01/11/19 10:00 Colcrys PO DAILY [facility] Docusate Sodium 100 mg 01/11/19 14:00 Colace - PO TID [facility] Ferrous Sulfate 325 mg 01/11/19 10:00 Feosol - PO DAILY [facility] Heparin Sodium (Porcine) 5,000 unit 01/10/19 23:00 01/11/19 06:25 Heparin - SQ 5,000 unit TID [facility] Administration Ceftriaxone Sodium 1 gm/ 50 mls @ 100 mls/hr 01/11/19 10:00 Dextrose IVPB DAILY [facility] Sodium Chloride 1,000 mls @ 83 mls/hr 01/11/19 12:30 Normal Saline - IV 01/12/19 00:33 ASDIR [facility] Insulin Aspart 1 vial 01/11/19 07:00 01/11/19 06:25 Novolog Vial Sliding Scale - SQ Not Given ACHS [facility] Protocol Rosuvastatin Calcium 20 mg 01/11/19 22:00 Crestor - PO HS [facility] Tamsulosin HCl 0.4 mg 01/11/19 08:30 01/11/19 09:11 Flomax - PO 0.4 mg DAILY@0830 [facility] Administration Last Vital Signs Temp Pulse Resp BP Pulse Ox 98.2 F 69 20 126/50 L 98 01/11/19 09:28 01/11/19 09:28 01/11/19 09:28 01/11/19 09:28 01/11/19 09:00 cardio s1s2 pulm cleat GI soft ext neg edema neuro awake and alert Impression 1. CKD 2. dehydration 3. PVD 4. HLD 5. UTI 6. atrophic right kidney Plan - change fluids to 1/2 ns and decrease rate - monitor renal function - follow cultures - cont abx - renal function not far from baseline
--- NOTE | 2019-01-11 13:03 | CON.CARD ---
Consult Consult Specialty:: Cardiology Referred by:: Hospitalist Reason for Consultation:: Cardiac evaluation - History of Present Illness Chief Complaint: Mechanical fall History of Present Illness: Patient is a 78 year old male well known to me with underlying history of CAD s/ p CABG, PCI/stent, angina pectoris, class 2 NYHA classification LV failure with underlying LV systolic dysfunction, s/p ICD implant, HTN, DM and hypercholesterolemia who presents with right lower extremity weakness resulting in a fall. He has had multiple unexplained falls without loss of consciousness. He denies chest pain, shortness of breath or palpitations. He denies paroxysmal nocturnal dyspnea or orthopnea. He denies headache or lightheadedness. - History Source History Provided By: Patient, Medical Record Limitations to Obtaining History: No Limitations - Past Medical History Cardio/Vascular: Yes: CAD, CHF, HTN, Hyperlipdemia, [place] Pulmonary: Yes: Asthma, Bronchitis, COPD, Pneumonia Gastrointestinal: Yes: Constipation Renal/: Yes: BPH Musculoskeletal: Yes: Chronic low back pain, Osteoarthritis Endocrine: Yes: Diabetes Mellitus - Past Surgical History Past Surgical History: Yes: CABG, Cholecystectomy Additional Surgical History: ICD - Alcohol/Substance Use Hx Alcohol Use: No History of Substance Use: reports: None - Smoking History Smoking history: Former smoker Have you smoked in the past 12 months: No Aproximately how many cigarettes per day: 5 If you are a former smoker, when did you quit?: FEW MONTHS - Social History Usual Living Arrangement: With Spouse ADL: Independent Occupation: retired: worked for [employer] History of Recent Travel: No Home Medications - Allergies Allergies/Adverse Reactions: Allergies Allergy/AdvReac Type Severity Reaction Status Date / Time pregabalin [From Lyrica] Allergy Severe Verified 01/10/19 15:14 - Home Medications Home Medications: Ambulatory Orders Bimatoprost [Lumigan] 1 drop IO DAILY 12/08/18 Budesonide/Formeterol Fumarate [SYMBICORT 160/4.5mcg -] 16 inh PO BID 12/08/18 Carvedilol 3.125 mg PO BID 12/08/18 Clopidogrel Bisulfate [Plavix] 75 mg PO DAILY 12/08/18 Escitalopram Oxalate [Lexapro -] 20 mg PO DAILY 12/08/18 Furosemide [Lasix] 20 mg PO DAILY 12/08/18 Insulin Glargine,Hum.rec.anlog [Lantus] 100 unit SQ ASDIR 12/08/18 Insulin Lispro [Humalog] 10 - 34 unit SQ TID 12/08/18 Pantoprazole Sodium 40 mg PO DAILY 12/08/18 Rosuvastatin Calcium [Crestor] 20 mg PO HS 12/08/18 Sacubitril/Valsartan [Entresto 24 mg-26 mg Tablet] 24 - 26 mg PO BID 12/08/18 Insulin Sliding Scale [Novolog Vial Sliding Scale -] 1 vial SQ ACHS units 12/13 Albuterol Sulfate Inhaler - [Ventolin Hfa Inhaler -] 2 inh PO TID 01/11/19 Allopurinol [Zyloprim -] 100 mg PO BID 01/11/19 Blood Sugar Diagnostic [Test Strips] 1 each MC TID 01/11/19 Colchicine [Colcrys] 0.6 mg PO DAILY 01/11/19 Ibuprofen 800 mg PO TID 01/11/19 Insulin Glargine,Hum.rec.anlog [Lantus Solostar PEN (NF)] 58 units SQ HS Insulin Lispro [Humalog] 10 - 34 unit SQ TID 01/11/19 Tamsulosin HCl 0.4 mg PO DAILY 01/11/19 Family Disease History - Family Disease History Family Disease History: CA: Mother (Gastric), Other: Father (CAD), Brother, Sister, Son, Daughter Review of Systems - Review of Systems Constitutional: denies: Chills, Fever Cardiovascular: denies: Chest Pain, Palpitations, Shortness of Breath Respiratory: denies: Cough, Hemoptysis, Orthopnea, PND, SOB, SOB on Exertion Gastrointestinal: denies: Abdominal Pain, Constipation, Diarrhea, Melena, Nausea , Rectal Bleeding, Vomiting Genitourinary: denies: Dysuria, Hematuria Musculoskeletal: denies: Back Pain Neurological: denies: Dizziness, Headache, Seizure, Syncope Vital Signs: Vital Signs Temperature 97.4 F L 01/11/19 12:51 Pulse Rate 60 01/11/19 12:51 Respiratory Rate 20 01/11/19 09:28 Blood Pressure 112/51 L 01/11/19 12:51 O2 Sat by Pulse Oximetry (%) 97 01/11/19 12:51 Eyes: Yes: PERRL HENT: Yes: Atraumatic Neck: Yes: Supple Respiratory: Yes: CTA Bilaterally Gastrointestinal: Yes: Normal Bowel Sounds, Soft. No: Tenderness Cardiovascular: Yes: Regular Rate and Rhythm JVD: No PMI: Non-Displaced Heart Sounds: Yes: S1, S2. No: Gallop Murmur: Yes: Systolic Murmur, Grade 1 Edema: No - Other Data Labs, Other Data: CBC, BMP 01/11/19 06:20 01/11/19 06:20 Troponin, BNP 01/10/19 01/10/19 16:11 16:11 Troponin I < 0.02 B-Natriuretic Peptide 1451.6 H Sinus rhythm 1st degree AV block, T abnormality, consider lateral ischemia Imaging - Results Cat Scan: Report Reviewed (Carotid Doppler) EKG: Report Reviewed Problem List - Problems (1) Recurrent falls Code(s): R29.6 - REPEATED FALLS (2) Urinary tract infection Code(s): N39.0 - URINARY TRACT INFECTION, SITE NOT SPECIFIED (3) Acute on chronic diastolic CHF (congestive heart failure) Code(s): I50.33 - ACUTE ON CHRONIC DIASTOLIC (CONGESTIVE) HEART FAILURE (4) Acute on chronic renal insufficiency Code(s): N28.9 - DISORDER OF KIDNEY AND URETER, UNSPECIFIED; N18.9 - CHRONIC KIDNEY DISEASE, UNSPECIFIED (5) Anemia Code(s): D64.9 - ANEMIA, UNSPECIFIED Qualifiers: Anemia type: due to chronic kidney disease Chronic kidney disease stage: stage 3 (moderate) Qualified Code(s): N18.3 - Chronic kidney disease, stage 3 (moderate); D63.1 - Anemia in chronic kidney disease; D63.1 - Anemia in chronic kidney disease (6) CAD (coronary artery disease) Code(s): I25.10 - ATHSCL HEART DISEASE OF [place] CORONARY ARTERY W/O ANG PCTRS Qualifiers: Coronary Disease-Associated Artery/Lesion type: [place] artery [place] vs. transplanted heart: [place] heart Associated angina: without angina Qualified Code(s): I25.10 - Atherosclerotic heart disease of [place] coronary artery without angina pectoris (7) CKD (chronic kidney disease) Code(s): N18.9 - CHRONIC KIDNEY DISEASE, UNSPECIFIED Qualifiers: Chronic kidney disease stage: stage 3 (moderate) Qualified Code(s): N18.3 - Chronic kidney disease, stage 3 (moderate) (8) COPD (chronic obstructive pulmonary disease) Code(s): J44.9 - CHRONIC OBSTRUCTIVE PULMONARY DISEASE, UNSPECIFIED Qualifiers: (9) Generalized weakness Code(s): R53.1 - WEAKNESS (10) History of percutaneous coronary intervention Code(s): Z98.890 - OTHER SPECIFIED POSTPROCEDURAL STATES (11) Hx of CABG Code(s): Z95.1 - PRESENCE OF AORTOCORONARY BYPASS GRAFT (12) Hyperlipidemia Code(s): E78.5 - HYPERLIPIDEMIA, UNSPECIFIED Qualifiers: Hyperlipidemia type: pure hypercholesterolemia Qualified Code(s): E78.00 - Pure hypercholesterolemia, unspecified; E78.0 - Pure hypercholesterolemia (13) Hypertension Code(s): I10 - ESSENTIAL (PRIMARY) HYPERTENSION (14) ICD (implantable cardioverter-defibrillator) in place Code(s): Z95.810 - PRESENCE OF AUTOMATIC (IMPLANTABLE) CARDIAC DEFIBRILLATOR (15) NYHA class 2 acute on chronic systolic heart failure Code(s): I50.23 - ACUTE ON CHRONIC SYSTOLIC (CONGESTIVE) HEART FAILURE (16) PVD (peripheral vascular disease) Code(s): I73.9 - PERIPHERAL VASCULAR DISEASE, UNSPECIFIED (17) Pulmonary HTN Code(s): I27.20 - PULMONARY HYPERTENSION, UNSPECIFIED (18) Type 2 diabetes mellitus Code(s): E11.9 - TYPE 2 DIABETES MELLITUS WITHOUT COMPLICATIONS Qualifiers: Assessment/Plan 1. Multiple mechanical falls with right lower extremity weakness 2. LV systolic dysfunction class 2 NYHA classification heart failure, compensated/euvolemic 3. CAD s/p CABG, angina pectoris 4. HTN 5. Hypercholesterolemia 6. DM 7. CKD 8. ? UTI PLAN: 1. Continue present cardiac medications 2. Etiology of falls to be evaluated and fall precaution 3. Antibiotic coverage 4. Monitor renal function Further plans are to follow Jayy Morales MD
[2019-01-11] MEDS ORDERED: CARVEDILOL 3.125 MG TABLET (FP) ONE ×2 (13:36→22:09)
[2019-01-11] MEDS ORDERED: INSULIN (NOVOLOG) ASPART 100 UNITS/ML 10ML VIAL ONE ×3 (13:37→13:39)
[2019-01-11] MEDS ORDERED: DOCUSATE SODIUM 100 MG CAPSULE (FP) PO ONE ×2 (13:37→22:10)
[2019-01-11] MEDS ORDERED: CEFTRIAXONE 1 GM/50 ML BAG ONE (13:38)
[2019-01-11] MEDS: DOCUSATE SODIUM 100 MG CAPSULE (FP) PO SCH ×2 (13:46→22:27)
[2019-01-11] MEDS: COLCHICINE 0.6 MG CAP PO SCH (13:46)
[2019-01-11] MEDS: CARVEDILOL 3.125 MG TABLET (FP) PO SCH ×2 (13:46→22:27)
--- NOTE | 2019-01-11 15:02 | PN ---
Teaching Attending Note Name of Resident: Neto Wynn ATTENDING PHYSICIAN STATEMENT I saw and evaluated the patient. I reviewed the resident's note and discussed the case with the resident. I agree with the resident's findings and plan as documented. SUBJECTIVE: patient seen and examined. reports some right hip pain. States gets up and just falls, denies any dyspnea, dizziness, diaphoresis, chest pain, [id number], around the fall. OBJECTIVE: Vital Signs Period Temp Pulse Resp BP Sys/Garcia Pulse Ox Last 24 Hr 97.1 F-98.2 F 58-70 18-20 106-126/50-65 95-100 Intake & Output 01/08/19 01/09/19 01/10/19 01/11/19 23:59 23:59 23:59 23:59 Weight 1476 lb General: lying in bed in no acute distress chest: CTAB, no rales or wheezing CVS:S1S2 regular Abdominal Soft, NT, ND, pos bowel sounds muscuskeletal: Right leg elevation upto 40 degrees at hip, limited by pain per patient, left hip ROM WNL no spinal tenderness Extremities: no edema Home Medications Medication Instructions Recorded Bimatoprost [Lumigan] 1 drop IO DAILY 12/08/18 Budesonide/Formeterol Fumarate 16 inh PO BID 12/08/18 [SYMBICORT 160/4.5mcg -] Carvedilol 3.125 mg PO BID 12/08/18 Clopidogrel Bisulfate [Plavix] 75 mg PO DAILY 12/08/18 Escitalopram Oxalate [Lexapro -] 20 mg PO DAILY 12/08/18 Furosemide [Lasix] 20 mg PO DAILY 12/08/18 Insulin Glargine,Hum.rec.anlog 100 unit SQ ASDIR 12/08/18 [Lantus] Insulin Lispro [Humalog] 10 - 34 unit SQ TID 12/08/18 Pantoprazole Sodium 40 mg PO DAILY 12/08/18 Rosuvastatin Calcium [Crestor] 20 mg PO HS 12/08/18 Sacubitril/Valsartan [Entresto 24 24 - 26 mg PO BID 12/08/18 mg-26 mg Tablet] Insulin Sliding Scale [Novolog 1 vial SQ ACHS units 12/13/18 Vial Sliding Scale -] Albuterol Sulfate Inhaler - 2 inh PO TID 01/11/19 [Ventolin Hfa Inhaler -] Allopurinol [Zyloprim -] 100 mg PO BID 01/11/19 Blood Sugar Diagnostic [Test 1 each MC TID 01/11/19 Strips] Colchicine [Colcrys] 0.6 mg PO DAILY 01/11/19 Ibuprofen 800 mg PO TID 01/11/19 Insulin Glargine,Hum.rec.anlog 58 units SQ HS 01/11/19 [Lantus Solostar PEN (NF)] Insulin Lispro [Humalog] 10 - 34 unit SQ TID 01/11/19 Tamsulosin HCl 0.4 mg PO DAILY 01/11/19 Active Medications Acetaminophen (Tylenol Oral Solution -) 650 mg PO Q6H PRN PRN Reason: PAIN Last Admin: 01/11/19 10:28 Dose: 650 mg Albuterol/Ipratropium (Duoneb -) 1 amp NEB Q6H PRN PRN Reason: SHORTNESS OF BREATH Carvedilol (Coreg -) 3.125 mg PO BID [facility] Last Admin: 01/11/19 13:46 Dose: 3.125 mg Colchicine (Colcrys) 0.6 mg PO DAILY [facility] Last Admin: 01/11/19 13:46 Dose: 0.6 mg Docusate Sodium (Colace -) 100 mg PO TID [facility] Last Admin: 01/11/19 13:46 Dose: 100 mg Ferrous Sulfate (Feosol -) 325 mg PO DAILY [facility] Heparin Sodium (Porcine) (Heparin -) 5,000 unit SQ TID [facility] Last Admin: 01/11/19 06:25 Dose: 5,000 unit Ceftriaxone Sodium 1 gm/ (Dextrose) 50 mls @ 100 mls/hr IVPB DAILY [facility] Last Admin: 01/11/19 13:46 Dose: 100 mls/hr Sodium Chloride (1/2 Normal Saline) 1,000 mls @ 42 mls/hr IV ASDIR [facility] Insulin Aspart (Novolog Vial Sliding Scale -) 1 vial SQ [facility]; Protocol Last Admin: 01/11/19 06:25 Dose: Not Given Insulin Detemir (Levemir Vial) 10 units SQ HS [facility] Rosuvastatin Calcium (Crestor -) 20 mg PO HS [facility] Tamsulosin HCl (Flomax -) 0.4 mg PO DAILY@0830 [facility] Last Admin: 01/11/19 09:11 Dose: 0.4 mg Laboratory Results - last 24 hr 01/10/19 01/10/19 01/10/19 16:11 16:11 16:11 WBC 6.7 RBC 4.57 Hgb 11.8 Hct 35.6 MCV 77.9 L MCH 25.8 MCHC 33.2 RDW 19.3 H Plt Count 151 MPV 7.3 L Absolute Neuts (auto) 4.8 Neutrophils % 71.6 Lymphocytes % 18.8 Monocytes % 6.2 Eosinophils % 2.7 D Basophils % 0.7 Nucleated RBC % 0 Sodium 140 Potassium 4.4 Chloride 111 H Carbon Dioxide 24 Anion Gap 6 L BUN 36.5 H Creatinine 1.5 H Est GFR (CKD-EPI)AfAm 51.67 Est GFR (CKD-EPI)NonAf 44.58 POC Glucometer Random Glucose 131 H Calcium 9.4 Phosphorus Iron TIBC Iron Saturation Unsaturated IBC Ferritin Total Bilirubin 0.6 AST 19 ALT 33 Alkaline Phosphatase 109 Creatine Kinase 37 Troponin I < 0.02 B-Natriuretic Peptide Total Protein 7.1 Albumin 3.6 Urine Color Urine Appearance Urine pH Ur Specific [place] Urine Protein Urine Glucose (UA) Urine Ketones Urine Blood Urine Nitrite Urine Bilirubin Urine Urobilinogen Ur Leukocyte Esterase Urine WBC (Auto) Urine RBC (Auto) Urine Casts (Auto) U Epithel Cells (Auto) Urine Bacteria (Auto) Urine Yeast (Auto) 01/10/19 01/10/19 01/11/19 16:11 18:05 06:20 WBC 5.2 RBC 3.89 L Hgb 10.3 L Hct 30.1 L D MCV 77.3 L MCH 26.4 MCHC 34.1 RDW 19.3 H Plt Count 124 L MPV 7.7 Absolute Neuts (auto) 3.5 Neutrophils % 66.8 Lymphocytes % 21.1 Monocytes % 7.5 Eosinophils % 3.6 Basophils % 1.0 Nucleated RBC % 0 Sodium Potassium Chloride Carbon Dioxide Anion Gap BUN Creatinine Est GFR (CKD-EPI)AfAm Est GFR (CKD-EPI)NonAf POC Glucometer Random Glucose Calcium Phosphorus Iron TIBC Iron Saturation Unsaturated IBC Ferritin Total Bilirubin AST ALT Alkaline Phosphatase Creatine Kinase Troponin I B-Natriuretic Peptide 1451.6 H Total Protein Albumin Urine Color Yellow Urine Appearance Turbid Urine pH 5.0 Ur Specific [place] 1.011 Urine Protein 1+ H Urine Glucose (UA) Negative Urine Ketones Negative Urine Blood 1+ H Urine Nitrite Negative Urine Bilirubin Negative Urine Urobilinogen 0.2 Ur Leukocyte Esterase 3+ H Urine WBC (Auto) 461 Urine RBC (Auto) 5 Urine Casts (Auto) 23 U Epithel Cells (Auto) 4.9 Urine Bacteria (Auto) 1.2 Urine Yeast (Auto) Moderate yeast 01/11/19 01/11/19 01/11/19 06:20 06:20 06:20 WBC RBC Hgb Hct MCV MCH MCHC RDW Plt Count MPV Absolute Neuts (auto) Neutrophils % Lymphocytes % Monocytes % Eosinophils % Basophils % Nucleated RBC % Sodium 141 Potassium 4.0 Chloride 112 H Carbon Dioxide 22 Anion Gap 7 L BUN 38.9 H Creatinine 1.5 H Est GFR (CKD-EPI)AfAm 51.67 Est GFR (CKD-EPI)NonAf 44.58 POC Glucometer 144 Random Glucose 142 H Calcium 8.9 Phosphorus 4.1 Iron 49 L TIBC 224 L Iron Saturation 21 Unsaturated IBC 175 L Ferritin 97.0 Total Bilirubin 0.4 AST 15 ALT 26 Alkaline Phosphatase 99 Creatine Kinase Troponin I B-Natriuretic Peptide Total Protein 6.2 L Albumin 3.1 L Urine Color Urine Appearance Urine pH Ur Specific [place] Urine Protein Urine Glucose (UA) Urine Ketones Urine Blood Urine Nitrite Urine Bilirubin Urine Urobilinogen Ur Leukocyte Esterase Urine WBC (Auto) Urine RBC (Auto) Urine Casts (Auto) U Epithel Cells (Auto) Urine Bacteria (Auto) Urine Yeast (Auto) 01/11/19 12:49 WBC RBC Hgb Hct MCV MCH MCHC RDW Plt Count MPV Absolute Neuts (auto) Neutrophils % Lymphocytes % Monocytes % Eosinophils % Basophils % Nucleated RBC % Sodium Potassium Chloride Carbon Dioxide Anion Gap BUN Creatinine Est GFR (CKD-EPI)AfAm Est GFR (CKD-EPI)NonAf POC Glucometer 180 Random Glucose Calcium Phosphorus Iron TIBC Iron Saturation Unsaturated IBC Ferritin Total Bilirubin AST ALT Alkaline Phosphatase Creatine Kinase Troponin I B-Natriuretic Peptide Total Protein Albumin Urine Color Urine Appearance Urine pH Ur Specific [place] Urine Protein Urine Glucose (UA) Urine Ketones Urine Blood Urine Nitrite Urine Bilirubin Urine Urobilinogen Ur Leukocyte Esterase Urine WBC (Auto) Urine RBC (Auto) Urine Casts (Auto) U Epithel Cells (Auto) Urine Bacteria (Auto) Urine Yeast (Auto) CT pelvis/right femur/hip, left hip results and images reviewed Renal US /carotid duplex results reviewed ASSESSMENT AND PLAN: 77 yom with PMhx of Severe Systolic CHF (EF 25-30%), s/p ICD, CAD s/p CABG/PCI ( last PCI 2-3 years ago), PAD s/p b/o fem-pop bypass, LE PCI with stenting, IDDM poorly controlled, Achalasia s/p Heller's myotomy, PUD s/p partial gastrectomy ( Bilroth Type II) years ago, HTN, HLD, COPD (>60 pack year smoking history) admitted with falls. -Mechanical falls -Right hip pain -Lower complicated UTI -Severe systolic HF (EF 25-30%) -CAD s/p CABG/PCI (last PCI 2-3 years ago) -CKD stage II -PAD s/p b/l fem-pop bypass -Achalasia s/p Heller's myotomy -PUD s/p Partial Gastrectomy -HTN -HLD -COPD -Splenomegaly Plan: Check orthostatics. renal input noted, gentle hydration, Renal US noted. reconcile home meds. Resume lasix in 24-48 hours. Ceftriaxone, follow up urine cultures. Neurology input noted, no additional testing. Carotid duplex results reviewed, discussed with Dr. Moreira, medical management, not flow limiting. Imaging neg for fracture. Cardiology consulted by admitting team, do not suspect current symptoms related to cardiac etiology. Continue coreg. Reconcile home meds and resume accordingly DVTPPx heparin PT eval SNF vs home with services in 24-48 hours if continues to improve and disposition arranged Discussed with patient, all questions answered.
[2019-01-11] MEDS: SODIUM CHLORIDE 0.45% 1,000 ML IV SCH (15:13)
[2019-01-11] MEDS: FERROUS SO4 325 MG TABLET (FP) PO SCH (15:20)
[2019-01-11] MEDS ORDERED: guaiFENesin 200 MG/10 ML 10 ML UNIT-DOSE CUPS PO ONE (18:07)
[2019-01-11] MEDS ORDERED: MORPHINE SULFATE 2 MG/ML VIAL ONE (18:25)
[2019-01-11] MEDS ORDERED: guaiFENesin 200 MG/10 ML 10 ML UNIT-DOSE CUPS ONE (18:26)
[2019-01-11] MEDS: MORPHINE SULFATE 2 MG/ML VIAL IVPUSH PRN (18:30)
[2019-01-12] MEDS: INSULIN (LEVEMIR) 100 UNITS/ML UNITS SQ SCH ×2 (00:18→21:32)
[2019-01-12] MEDS: MELATONIN 5 MG TABLETS PO SCH ×2 (00:19→21:32)
[2019-01-12] MEDS: ROSUVASTATIN CA 20 MG TABLET (FP) PO SCH ×2 (00:19→21:32)
[2019-01-12 02:19] VITALS: BMI 22.6
[2019-01-12] MEDS: SODIUM CHLORIDE 0.45% 1,000 ML IV SCH ×2 (06:08→15:20)
[2019-01-12] MEDS: DOCUSATE SODIUM 100 MG CAPSULE (FP) PO SCH ×3 (06:09→21:32)
[2019-01-12] MEDS: HEPARIN NA (PORCINE) 5,000 UNITS/ML 1ML VIAL SQ SCH ×3 (06:09→21:33)
[2019-01-12] MEDS: INSULIN SLIDING SCALE (NOVOLOG) 1 VIAL SQ SCH ×4 (06:10→21:35)
[2019-01-12] MEDS ORDERED: INSULIN SLIDING SCALE (NOVOLOG) 1 VIAL SQ ONE (06:59)
[2019-01-12] MEDS ORDERED: INSULIN (LEVEMIR) 100 UNITS/ML UNITS SQ ONE (06:59)
[2019-01-12 07:48] LABS: BLOOD UREA NITROGEN 38.4 mg/dL (7-18); CALCIUM 8.9 mg/dL (8.5-10.1); CREATININE 1.5 mg/dL (0.55-1.3); MAGNESIUM 2.1 mg/dL (1.8-2.4); POTASSIUM 4.2 mmol/L (3.5-5.1)
[2019-01-12 08:06] LABS: HEMATOCRIT 30.7 % (35.4-49); HEMOGLOBIN 10.3 GM/dL (11.7-16.9); MCHC 33.5 g/dl (32.0-35.9); MEAN CELL VOLUME 77.7 fl (80-96); MEAN PLT VOLUME 7.8 fl (7.5-11.1); PLATELET COUNT 131 K/MM3 (134-434); RBC 3.95 M/mm3 (4.00-5.60); WHITE BLOOD COUNT 5.1 K/mm3 (4.0-10.0)
--- NOTE | 2019-01-12 08:54 | CONSULT ---
- Consultation REQUESTING PROVIDER: CONSULT REQUEST: We have been asked to surgically evaluate this patient for carotid plaques. PCP:Jeremi Staton MD HISTORY OF PRESENT ILLNESS: 78 y/o/m with significant cardiac history and a history of falls over the past few months presents after a fall that occurred yesterday. He was sitting in his porch and when he got up he felt his right hip give way falling on his right side, he did not hit his head when he fell. He states that he had recent changes in his vision and headaches and he felt lightheaded before he fell. He denies any loss of concisenesses with any of the past falls. He states he falls often and he always falls on his right side because his right hip gives out on him. He has been talking Colchicine for a gout flare in his left knee that started 3 days ago. He denies any numbness, tingling, fever, chills, SOB, CP, or other complaints. PMHx: CAD (4 stents, triple bypass), ICD, CHF, IDDM, COPD, kidney stones, gout, achalasia SHx: Stomach surgery for ulcers, appendectomy, kidney surgery for stones Social: long hx of smoking states he quit last year-He uses a Juul. Denies alcohol or other illicit substance use. Past History - Past Medical History Allergies/Adverse Reactions: Allergies Allergy/AdvReac Type Severity Reaction Status Date / Time pregabalin [From Lyrica] Allergy Severe Verified 01/10/19 15:14 Home Medications: Ambulatory Orders Bimatoprost [Lumigan] 1 drop IO DAILY 12/08/18 Budesonide/Formeterol Fumarate [SYMBICORT 160/4.5mcg -] 1 inh PO DAILY 12/08/18 Carvedilol 3.125 mg PO BID 12/08/18 Clopidogrel Bisulfate [Plavix] 75 mg PO DAILY 12/08/18 Escitalopram Oxalate [Lexapro -] 20 mg PO DAILY 12/08/18 Furosemide [Lasix] 20 mg PO DAILY 12/08/18 Insulin Glargine,Hum.rec.anlog [Lantus] 100 unit SQ ASDIR 12/08/18 Insulin Lispro [Humalog] 100 unit SQ DAILY 12/08/18 Pantoprazole Sodium 40 mg PO DAILY 12/08/18 Rosuvastatin Calcium [Crestor] 20 mg PO DAILY 12/08/18 Sacubitril/Valsartan [Entresto 24 mg-26 mg Tablet] 1 each PO DAILY 12/08/18 Insulin Sliding Scale [Novolog Vial Sliding Scale -] 1 vial SQ ACHS units 12/13 Anemia: No Asthma: No Cancer: No Cardiac Disorders: Yes (4 stents, triple bypass) CVA: No COPD: Yes CHF: No Dementia: No Diabetes: Yes GI Disorders: No Disorders: No HTN: No Hypercholesterolemia: Yes Kidney Stones: No Liver Disease: No Psychiatric Problems: No Seizures: No Thyroid Disease: No Lung CA: No - Surgical History Abdominal Surgery: Yes (PARTIAL GASTRECTOMY,H/O ULCERS EGD BIOPSY 2009,EGD H- PYLORI 2006,COLON 2003) Appendectomy: Yes Cardiac Surgery: Yes Cholecystectomy: Yes Lung Surgery: No Neurologic Surgery: No Orthopedic Surgery: No - Family Disease History Family Disease History: Heart Disease: Father - Reproductive History Testicular Surgery: Yes - Immunization History Immunization Up to Date: Yes - Suicide/Smoking/Psychosocial Hx Smoking Status: Yes Smoking History: Former smoker Years of Tobacco Use: 50 Have you smoked in the past 12 months: No Number of Cigarettes Smoked Daily: 5 If you are a former smoker, when did you quit?: FEW MONTHS Information on smoking cessation initiated: No 'Breaking Loose' booklet given: 07/01/18 Hx Alcohol Use: No Drug/Substance Use Hx: No Substance Use Type: Alcohol Hx Substance Use Treatment: No Review of Systems - Constitutional: No: Chills, Fever, Weakness HEENTM: Yes: Nose Congestion Respiratory: Yes: Cough. No: Shortness of Breath Cardiac (ROS): Yes: Lightheadedness. No: Chest Pain, Palpitations, Syncope ABD/GI: No: Constipated, Nausea, Vomiting : No: Dysuria, Hematuria Musculoskeletal: Yes: Back Pain, Gout (left knee), Joint Pain (right hip) Integumentary: Yes: Bruising Neurological: No: Headache, Numbness Home Medications Medication Instructions Recorded Bimatoprost [Lumigan] 1 drop IO DAILY 12/08/18 Budesonide/Formeterol Fumarate 16 inh PO BID 12/08/18 [SYMBICORT 160/4.5mcg -] Carvedilol 3.125 mg PO BID 12/08/18 Clopidogrel Bisulfate [Plavix] 75 mg PO DAILY 12/08/18 Escitalopram Oxalate [Lexapro -] 20 mg PO DAILY 12/08/18 Furosemide [Lasix] 20 mg PO DAILY 12/08/18 Insulin Glargine,Hum.rec.anlog 100 unit SQ ASDIR 12/08/18 [Lantus] Insulin Lispro [Humalog] 10 - 34 unit SQ TID 12/08/18 Pantoprazole Sodium 40 mg PO DAILY 12/08/18 Rosuvastatin Calcium [Crestor] 20 mg PO HS 12/08/18 Sacubitril/Valsartan [Entresto 24 24 - 26 mg PO BID 12/08/18 mg-26 mg Tablet] Insulin Sliding Scale [Novolog 1 vial SQ ACHS units 12/13/18 Vial Sliding Scale -] Albuterol Sulfate Inhaler - 2 inh PO TID 01/11/19 [Ventolin Hfa Inhaler -] Allopurinol [Zyloprim -] 100 mg PO BID 01/11/19 Blood Sugar Diagnostic [Test 1 each MC TID 01/11/19 Strips] Colchicine [Colcrys] 0.6 mg PO DAILY 01/11/19 Ibuprofen 800 mg PO TID 01/11/19 Insulin Glargine,Hum.rec.anlog 58 units SQ HS 01/11/19 [Lantus Solostar PEN (NF)] Insulin Lispro [Humalog] 10 - 34 unit SQ TID 01/11/19 Tamsulosin HCl 0.4 mg PO DAILY 01/11/19 PHYSICAL EXAM: GENERAL: Awake, alert, and fully oriented, in no acute distress. HEAD: Normal with no signs of trauma. EYES: right eye with irregular pupil, NECK: supple without lymphadenopathy, JVD, or masses, no bruit LUNGS: Unlabored resp on RA, No accessory muscle use. UPPER EXTREMITIES: warm, well-perfused. No cyanosis. No peripheral edema. NEUROLOGICAL: Normal speech, gait not observed. PSYCH: Cooperative. Good eye contact. Appropriate mood and affect. SKIN: Warm, dry, normal turgor Vital Signs Temperature 98.3 F 01/12/19 06:00 Pulse Rate 74 01/12/19 06:00 Respiratory Rate 20 01/12/19 06:00 Blood Pressure 127/60 01/12/19 06:00 O2 Sat by Pulse Oximetry (%) 95 01/12/19 00:00 Lab Results WBC 5.2 K/mm3 (4.0-10.0) 01/11/19 06:20 RBC 3.89 M/mm3 (4.00-5.60) L 01/11/19 06:20 Hgb 10.3 GM/dL (11.7-16.9) L 01/11/19 06:20 Hct 30.1 % (35.4-49) L D 01/11/19 06:20 MCV 77.3 fl (80-96) L 01/11/19 06:20 MCHC 34.1 g/dl (32.0-35.9) 01/11/19 06:20 RDW 19.3 % (11.9-15.9) H 01/11/19 06:20 Plt Count 124 K/MM3 (134-434) L 01/11/19 06:20 Sodium 141 mmol/L (136-145) 01/12/19 06:25 Potassium 4.2 mmol/L (3.5-5.1) 01/12/19 06:25 Chloride 110 mmol/L (98-107) H 01/12/19 06:25 Carbon Dioxide 25 mmol/L (21-32) 01/12/19 06:25 Anion Gap 6 MMOL/L (8-16) L 01/12/19 06:25 BUN 38.4 mg/dL (7-18) H 01/12/19 06:25 Creatinine 1.5 mg/dL (0.55-1.3) H 01/12/19 06:25 Random Glucose 138 mg/dL (74-106) H 01/12/19 06:25 Calcium 8.9 mg/dL (8.5-10.1) 01/12/19 06:25 Carotid doppler revealed b/l plaques throughout with no evidence of hemodynamically significant stenosis. Problem List - Problems (1) Carotid artery plaque Assessment/Plan: Patient with extensive cardiac history and stable carotid plaques with no evidence for vascular intervention. 1) continue medical work up for falls. 2) DVT and GI prophylaxis 3) f/u with Dr Moreira as out patient. Evaluation and plan discussed with Dr Moreira. Code(s): I65.29 - OCCLUSION AND STENOSIS OF UNSPECIFIED CAROTID ARTERY
[2019-01-12] MEDS ORDERED: PT OWN MED DRAWER 7, Y5N ONE ×2 (09:14→21:13)
[2019-01-12] MEDS: TAMSULOSIN HCL 0.4 MG CAP PO SCH (09:18)
[2019-01-12] MEDS: FERROUS SO4 325 MG TABLET (FP) PO SCH (09:18)
[2019-01-12] MEDS: COLCHICINE 0.6 MG CAP PO SCH (09:18)
[2019-01-12] MEDS: CARVEDILOL 3.125 MG TABLET (FP) PO SCH ×2 (09:18→21:32)
[2019-01-12] MEDS ORDERED: CEFTRIAXONE 1 GM in DEXTROSE 5%-WATER - 50 ML IVPB SCH (09:19)
--- NOTE | 2019-01-12 10:18 | PN ---
Progress Note, Physician History of Present Illness: Resting in bed, has not ambulated with walker assistance yet. - Current Medication List Current Medications: Active Medications Acetaminophen (Tylenol Oral Solution -) 650 mg PO Q6H PRN PRN Reason: PAIN Last Admin: 01/11/19 10:28 Dose: 650 mg Albuterol/Ipratropium (Duoneb -) 1 amp NEB Q6H PRN PRN Reason: SHORTNESS OF BREATH Carvedilol (Coreg -) 3.125 mg PO BID [facility] Last Admin: 01/12/19 09:18 Dose: 3.125 mg Colchicine (Colcrys) 0.6 mg PO DAILY [facility] Last Admin: 01/12/19 09:18 Dose: 0.6 mg Docusate Sodium (Colace -) 100 mg PO TID [facility] Last Admin: 01/12/19 06:09 Dose: 100 mg Ferrous Sulfate (Feosol -) 325 mg PO DAILY [facility] Last Admin: 01/12/19 09:18 Dose: 325 mg Heparin Sodium (Porcine) (Heparin -) 5,000 unit SQ TID [facility] Last Admin: 01/12/19 06:09 Dose: 5,000 unit Sodium Chloride (1/2 Normal Saline) 1,000 mls @ 42 mls/hr IV ASDIR [facility] Last Admin: 01/12/19 06:08 Dose: 42 mls/hr Ceftriaxone Sodium 1 gm/ (Dextrose) 50 mls @ 100 mls/hr IVPB DAILY [facility] Insulin Aspart (Novolog Vial Sliding Scale -) 1 vial SQ [facility]; Protocol Last Admin: 01/12/19 06:10 Dose: Not Given Insulin Detemir (Levemir Vial) 10 units SQ [facility] Last Admin: 01/12/19 00:18 Dose: 10 units Melatonin (Melatonin) 10 mg PO [facility] Last Admin: 01/12/19 00:19 Dose: 10 mg Morphine Sulfate (Morphine Sulfate) 2 mg IVPUSH Q6H PRN PRN Reason: PAIN LEVEL 6-10 Last Admin: 01/11/19 18:30 Dose: 2 mg Rosuvastatin Calcium (Crestor -) 20 mg PO HS [facility] Last Admin: 01/12/19 00:19 Dose: 20 mg Tamsulosin HCl (Flomax -) 0.4 mg PO DAILY@0830 [facility] Last Admin: 01/12/19 09:18 Dose: 0.4 mg - Objective Vital Signs: Vital Signs Temperature 98.3 F 01/12/19 06:00 Pulse Rate 74 01/12/19 06:00 Respiratory Rate 20 01/12/19 06:00 Blood Pressure 127/60 01/12/19 06:00 O2 Sat by Pulse Oximetry (%) 95 01/12/19 00:00 Constitutional: Yes: No Distress, Calm, Thin Neck: Yes: Supple Cardiovascular: Yes: Regular Rate and Rhythm Respiratory: Yes: Regular, Diminished Gastrointestinal: Yes: Normal Bowel Sounds, Soft Edema: No Labs: CBC, BMP 01/12/19 06:25 01/12/19 06:25 - ....Imaging EKG: Report Reviewed (Tele: NSR) Assessment/Plan Problem List - Problems (1) Recurrent falls Code(s): R29.6 - REPEATED FALLS (2) Urinary tract infection Code(s): N39.0 - URINARY TRACT INFECTION, SITE NOT SPECIFIED (3) Acute on chronic diastolic CHF (congestive heart failure) Code(s): I50.33 - ACUTE ON CHRONIC DIASTOLIC (CONGESTIVE) HEART FAILURE (4) Acute on chronic renal insufficiency Code(s): N28.9 - DISORDER OF KIDNEY AND URETER, UNSPECIFIED; N18.9 - CHRONIC KIDNEY DISEASE, UNSPECIFIED (5) Anemia Code(s): D64.9 - ANEMIA, UNSPECIFIED Qualifiers: Anemia type: due to chronic kidney disease Chronic kidney disease stage: stage 3 (moderate) Qualified Code(s): N18.3 - Chronic kidney disease, stage 3 (moderate); D63.1 - Anemia in chronic kidney disease; D63.1 - Anemia in chronic kidney disease (6) CAD (coronary artery disease) Code(s): I25.10 - ATHSCL HEART DISEASE OF [place] CORONARY ARTERY W/O ANG PCTRS Qualifiers: Coronary Disease-Associated Artery/Lesion type: [place] artery [place] vs. transplanted heart: [place] heart Associated angina: without angina Qualified Code(s): I25.10 - Atherosclerotic heart disease of [place] coronary artery without angina pectoris (7) CKD (chronic kidney disease) Code(s): N18.9 - CHRONIC KIDNEY DISEASE, UNSPECIFIED Qualifiers: Chronic kidney disease stage: stage 3 (moderate) Qualified Code(s): N18.3 - Chronic kidney disease, stage 3 (moderate) (8) COPD (chronic obstructive pulmonary disease) Code(s): J44.9 - CHRONIC OBSTRUCTIVE PULMONARY DISEASE, UNSPECIFIED Qualifiers: (9) Generalized weakness Code(s): R53.1 - WEAKNESS (10) History of percutaneous coronary intervention Code(s): Z98.890 - OTHER SPECIFIED POSTPROCEDURAL STATES (11) Hx of CABG Code(s): Z95.1 - PRESENCE OF AORTOCORONARY BYPASS GRAFT (12) Hyperlipidemia Code(s): E78.5 - HYPERLIPIDEMIA, UNSPECIFIED Qualifiers: Hyperlipidemia type: pure hypercholesterolemia Qualified Code(s): E78.00 - Pure hypercholesterolemia, unspecified; E78.0 - Pure hypercholesterolemia (13) Hypertension Code(s): I10 - ESSENTIAL (PRIMARY) HYPERTENSION (14) ICD (implantable cardioverter-defibrillator) in place Code(s): Z95.810 - PRESENCE OF AUTOMATIC (IMPLANTABLE) CARDIAC DEFIBRILLATOR (15) NYHA class 2 acute on chronic systolic heart failure Code(s): I50.23 - ACUTE ON CHRONIC SYSTOLIC (CONGESTIVE) HEART FAILURE (16) PVD (peripheral vascular disease) Code(s): I73.9 - PERIPHERAL VASCULAR DISEASE, UNSPECIFIED (17) Pulmonary HTN Code(s): I27.20 - PULMONARY HYPERTENSION, UNSPECIFIED (18) Type 2 diabetes mellitus Code(s): E11.9 - TYPE 2 DIABETES MELLITUS WITHOUT COMPLICATIONS Qualifiers: Assessment/Plan 1. Multiple mechanical falls with right hip pain and lower extremity weakness 2. LV systolic dysfunction (EF 25-30%) class 2 NYHA classification heart failure , compensated/euvolemic 3. Post ICD 4. HTN 5. DM 6. Hypercholesterolemia 7. CKD II 8. CAD s/p CABG, PCI, angina pectoris 9. PAD post Fem Pop bypass, [employer] 10. COPD 11. UTI 12. Achalasia s/p Heller's myotomy 13. 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 Gout PLAN: 1. Continue Carvedilol 3.125 mg BID and resume Entresto 24/26 mg BID renal function at baseline, observe off Lasix 2. Resume Plavix 75 qd 3. Continue Rosuvastatin 20 qd 4. No need for additional cardiac evaluation at this time and follow up can be done as outpatient 5. Continue abx coure 6. PT and gait training with walker assistance
[2019-01-12] MEDS ORDERED: DEXTROSE 5%-WATER - 50 ML IVPB ONE (10:52)
[2019-01-12] MEDS ORDERED: cefTRIAXone SODIUM 1 GM VIAL ONE (10:52)
[2019-01-12] MEDS: CLOPIDOGREL BISULFATE 75 MG TABLET (FP) PO SCH (11:23)
[2019-01-12] MEDS: MORPHINE SULFATE 2 MG/ML VIAL IVPUSH PRN (11:24)
--- NOTE | 2019-01-12 12:33 | PN ---
Progress Note, Physician History of Present Illness: Pt seen and examined at bedside. He is awake and appears comfortable. He denies shortness of breath. - Current Medication List Current Medications: Active Medications Acetaminophen (Tylenol Oral Solution -) 650 mg PO Q6H PRN PRN Reason: PAIN Last Admin: 01/11/19 10:28 Dose: 650 mg Albuterol/Ipratropium (Duoneb -) 1 amp NEB Q6H PRN PRN Reason: SHORTNESS OF BREATH Carvedilol (Coreg -) 3.125 mg PO BID [facility] Last Admin: 01/12/19 09:18 Dose: 3.125 mg Clopidogrel Bisulfate (Plavix -) 75 mg PO DAILY [facility] Last Admin: 01/12/19 11:23 Dose: 75 mg Colchicine (Colcrys) 0.6 mg PO DAILY [facility] Last Admin: 01/12/19 09:18 Dose: 0.6 mg Docusate Sodium (Colace -) 100 mg PO TID [facility] Last Admin: 01/12/19 06:09 Dose: 100 mg Ferrous Sulfate (Feosol -) 325 mg PO DAILY [facility] Last Admin: 01/12/19 09:18 Dose: 325 mg Heparin Sodium (Porcine) (Heparin -) 5,000 unit SQ TID [facility] Last Admin: 01/12/19 06:09 Dose: 5,000 unit Sodium Chloride (1/2 Normal Saline) 1,000 mls @ 42 mls/hr IV ASDIR [facility] Last Admin: 01/12/19 06:08 Dose: 42 mls/hr Ceftriaxone Sodium 1 gm/ (Dextrose) 50 mls @ 100 mls/hr IVPB DAILY [facility] Last Admin: 01/12/19 10:57 Dose: 100 mls/hr Insulin Aspart (Novolog Vial Sliding Scale -) 1 vial SQ ACH[facility]; Protocol Last Admin: 01/12/19 11:56 Dose: 4 units Insulin Detemir (Levemir Vial) 10 units SQ [facility] Last Admin: 01/12/19 00:18 Dose: 10 units Melatonin (Melatonin) 10 mg PO HS [facility] Last Admin: 01/12/19 00:19 Dose: 10 mg Morphine Sulfate (Morphine Sulfate) 2 mg IVPUSH Q6H PRN PRN Reason: PAIN LEVEL 6-10 Last Admin: 01/12/19 11:24 Dose: 2 mg Rosuvastatin Calcium (Crestor -) 20 mg PO HS [facility] Last Admin: 01/12/19 00:19 Dose: 20 mg Sacubitril/Valsartan (Entresto 24 Mg-26 Mg Tablet) 1 tab PO BID [facility] Tamsulosin HCl (Flomax -) 0.4 mg PO DAILY@0830 [facility] Last Admin: 01/12/19 09:18 Dose: 0.4 mg - Objective Vital Signs: Vital Signs Temperature 98.9 F 01/12/19 09:15 Pulse Rate 67 01/12/19 09:15 Respiratory Rate 18 01/12/19 09:15 Blood Pressure 130/61 01/12/19 09:15 O2 Sat by Pulse Oximetry (%) 95 01/12/19 00:00 Constitutional: Yes: Calm Eyes: Yes: Conjunctiva Clear HENT: Yes: Atraumatic Neck: Yes: Supple Cardiovascular: Yes: S1, S2 Respiratory: Yes: CTA Bilaterally Gastrointestinal: Yes: Soft Genitourinary: Yes: WNL Musculoskeletal: Yes: WNL Edema: No Neurological: Yes: Oriented Psychiatric: Yes: Oriented Labs: CBC, BMP 01/12/19 06:25 01/12/19 06:25 Problem List - Problems (1) Recurrent falls Code(s): R29.6 - REPEATED FALLS (2) Urinary tract infection Code(s): N39.0 - URINARY TRACT INFECTION, SITE NOT SPECIFIED Assessment/Plan Current Medications Generic Name Dose Route Start Last Admin Trade Name Freq PRN Reason Stop Dose Admin Acetaminophen 650 mg 01/11/19 09:36 01/11/19 10:28 Tylenol Oral Solution - PO 650 mg Q6H PRN Administration PAIN Albuterol/Ipratropium 1 amp 01/11/19 09:38 Duoneb - NEB Q6H PRN SHORTNESS OF BREATH Carvedilol 3.125 mg 01/11/19 10:00 01/12/19 09:18 Coreg - PO 3.125 mg BID [facility] Administration Clopidogrel Bisulfate 75 mg 01/12/19 11:00 01/12/19 11:23 Plavix - PO 75 mg DAILY [facility] Administration Colchicine 0.6 mg 01/11/19 10:00 01/12/19 09:18 Colcrys PO 0.6 mg DAILY [facility] Administration Docusate Sodium 100 mg 01/11/19 14:00 01/12/19 06:09 Colace - PO 100 mg TID [facility] Administration Ferrous Sulfate 325 mg 01/11/19 10:00 01/12/19 09:18 Feosol - PO 325 mg DAILY [facility] Administration Heparin Sodium (Porcine) 5,000 unit 01/10/19 23:00 01/12/19 06:09 Heparin - SQ 5,000 unit TID [facility] Administration Sodium Chloride 1,000 mls @ 42 mls/hr 01/11/19 13:00 01/12/19 06:08 1/2 Normal Saline IV 42 mls/hr ASDIR [facility] Administration Ceftriaxone Sodium 1 gm/ 50 mls @ 100 mls/hr 01/12/19 09:19 01/12/19 10:57 Dextrose IVPB 100 mls/hr DAILY [facility] Administration Insulin Aspart 1 vial 01/11/19 07:00 01/12/19 11:56 Novolog Vial Sliding Scale - SQ 4 units ACHS [facility] Administration Protocol Insulin Detemir 10 units 01/11/19 22:00 01/12/19 00:18 Levemir Vial SQ 10 units HS [facility] Administration Melatonin 10 mg 01/11/19 22:00 01/12/19 00:19 Melatonin PO 10 mg HS [facility] Administration Morphine Sulfate 2 mg 01/11/19 17:59 01/12/19 11:24 Morphine Sulfate IVPUSH 2 mg Q6H PRN Administration PAIN LEVEL 6-10 Rosuvastatin Calcium 20 mg 01/11/19 22:00 01/12/19 00:19 Crestor - PO 20 mg HS [facility] Administration Sacubitril/Valsartan 1 tab 01/12/19 22:00 Entresto 24 Mg-26 Mg Tablet PO BID [facility] Tamsulosin HCl 0.4 mg 01/11/19 08:30 01/12/19 09:18 Flomax - PO 0.4 mg DAILY@0830 [facility] Administration Impression 1. CKD 2. dehydration 3. PVD 4. HLD 5. UTI 6. atrophic right kidney Plan - monitor renal function - follow urine cultures - monitor volume status on fluids - monitor renal function - renal function not far from baseline
--- NOTE | 2019-01-12 13:28 | PN ---
Teaching Attending Note Name of Resident: Neto Wynn ATTENDING PHYSICIAN STATEMENT I saw and evaluated the patient. I reviewed the resident's note and discussed the case with the resident. I agree with the resident's findings and plan as documented. Seen and examined; please refer to resident note for further historical information. Vascular followup noted; can be pursued as OP. Urine growing fungus; review of his chart shows that he has a hx urethral stricture with chronic funguria and that he has seen Dr. Limon in the past. Cysto reviewed from 07/2018; urology consulted. Noted that patient started on IV rocephin overnight; would not address fungus which has been chronic and furthermore no fevers or white count; ID consult pending. Orthostatics ordered. Per cardiology we will observe off of lasix and resume his entresto. 10 sys ROS done and negative aside from HPI VS, labs, imaging reviewed. NAD, AAO,r esting in bed Normal rate, s1/2 NT ND +BS No fnd, no distortions in sensorium Normal mood, appropriate behavior Prior operative note Dr. Limon reviewed Prior labs and imaging personally reviewed ASSESSMENT AND PLAN: Patient presents for falls; neurology has cleared him. ? 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 Consulting urology/ID for final guidance with this as it has been a recurring issue on his past hospitalizations. He will be continued on coreg and we will followup his orthostatic VS. He remains hemodynamically stable and afebrile. Problems include: -Falls, mechanical (PT consult pending, assess if placement needed. Cardiology and neurology have cleared; appreciate expert opinion) -Recurring funguria with history of urethral stricture (ID and urology called) -Severe systolic CHF (fluids per nephrology; observing off lasix. Tenuous fluid status; monitor closely. Resume entresto per cardiology) -APRYL on CKD-II (Nephrology following; noted. Continue fluids per their service) -PAD s/p b/l fem pop -Achlasia (s/p myotomy, no sx today) -Hx HTN -Hx HLD -Splenomegaly Full Code
[2019-01-12] MEDS: POLYETHYLENE GLYCOL 3350 119 GM BTL PO SCH (16:34)
--- NOTE | 2019-01-12 16:53 | CON.GU ---
Consult Consult Specialty:: Urology Reason for Consultation:: Renal calc. disease ,UTI r/o Obstruction - History of Present Illness Chief Complaint: Multiple falls, UTI - History Source History Provided By: Patient - Past Medical History Cardio/Vascular: Yes: CAD, CHF, HTN, Hyperlipdemia, [place] Pulmonary: Yes: Asthma, Bronchitis, COPD, Pneumonia Gastrointestinal: Yes: Constipation Renal/: Yes: BPH Musculoskeletal: Yes: Chronic low back pain, Osteoarthritis Endocrine: Yes: Diabetes Mellitus - Past Surgical History Past Surgical History: Yes: CABG, Cholecystectomy Additional Surgical History: ICD - Alcohol/Substance Use Hx Alcohol Use: Yes History of Substance Use: reports: None - Smoking History Smoking history: Former smoker Have you smoked in the past 12 months: No Aproximately how many cigarettes per day: 30 If you are a former smoker, when did you quit?: 2 YRS - Social History Usual Living Arrangement: With Spouse ADL: Independent Occupation: retired: worked for [employer] History of Recent Travel: No Home Medications - Allergies Allergies/Adverse Reactions: Allergies Allergy/AdvReac Type Severity Reaction Status Date / Time pregabalin [From Lyrica] Allergy Severe Verified 01/10/19 15:14 - Home Medications Home Medications: Ambulatory Orders Bimatoprost [Lumigan] 1 drop IO DAILY 12/08/18 Budesonide/Formeterol Fumarate [SYMBICORT 160/4.5mcg -] 16 inh PO BID 12/08/18 Carvedilol 3.125 mg PO BID 12/08/18 Clopidogrel Bisulfate [Plavix] 75 mg PO DAILY 12/08/18 Escitalopram Oxalate [Lexapro -] 20 mg PO DAILY 12/08/18 Furosemide [Lasix] 20 mg PO DAILY 12/08/18 Insulin Glargine,Hum.rec.anlog [Lantus] 100 unit SQ ASDIR 12/08/18 Insulin Lispro [Humalog] 10 - 34 unit SQ TID 12/08/18 Pantoprazole Sodium 40 mg PO DAILY 12/08/18 Rosuvastatin Calcium [Crestor] 20 mg PO HS 12/08/18 Sacubitril/Valsartan [Entresto 24 mg-26 mg Tablet] 24 - 26 mg PO BID 12/08/18 Insulin Sliding Scale [Novolog Vial Sliding Scale -] 1 vial SQ ACHS units 12/13 Albuterol Sulfate Inhaler - [Ventolin Hfa Inhaler -] 2 inh PO TID 01/11/19 Allopurinol [Zyloprim -] 100 mg PO BID 01/11/19 Blood Sugar Diagnostic [Test Strips] 1 each MC TID 01/11/19 Colchicine [Colcrys] 0.6 mg PO DAILY 01/11/19 Ibuprofen 800 mg PO TID 01/11/19 Insulin Glargine,Hum.rec.anlog [Lantus Solostar PEN (NF)] 58 units SQ HS Insulin Lispro [Humalog] 10 - 34 unit SQ TID 01/11/19 Tamsulosin HCl 0.4 mg PO DAILY 01/11/19 Family Disease History - Family Disease History Family Disease History: [place]: Mother (Gastric), Other: Father (CAD), Brother, Sister, Son, Daughter Physical Exam- Vital Signs: Vital Signs Temperature 98.3 F 01/12/19 13:59 Pulse Rate 65 01/12/19 13:59 Respiratory Rate 16 01/12/19 13:59 Blood Pressure 139/67 01/12/19 13:59 O2 Sat by Pulse Oximetry (%) 98 01/12/19 09:00 Labs: CBC, BMP 01/12/19 06:25 01/12/19 06:25 Assessment/Plan 78 year old male admitted after multiple falls. Pt was going to the bathroom frequently, may have tripped Renal ultrasound report reviewed . No evidence of obstruction. Will follow as necessary Urine culture positive for yeast like organisms. BU and S.Creatinine are elevated to some degree 38 and 1.5
--- NOTE | 2019-01-12 18:18 | PN ---
Progress Note (short form) - Note Progress Note: 78 year old male history of CAD,CHF,ICD placement, CODPD,DM. Bing presented with recurrent falls over last few months. He has total of 7 fall. He denies any feeling dizzy, spinning of dysbalance feeling before fall. He would suddenly fall, and he describes as possible very brief LOC. Patient would regain consiousnesss very quicky , there is no seizure or incontinence . Patient also been feeling right hip pain following fall. He also been diagnosed with gout recently. patient is feeling better, afraid to talk. He still have right hip pain, and carotid ultrasound unremarkable. 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 1Multiple fall, he describes there is no aura and along wtih very brief LOC. Neurological exam is noraml. 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 Most likley these episodes are syncope Plan: no furhter recommendation from neuro point of view, follow up with [facility] floor regarding recurrent syncope Thanking you so much Cornelius Powell MD
--- NOTE | 2019-01-12 19:09 | PN ---
Physical Exam: SUBJECTIVE: Patient seen and examined at bedside. No complaints. OBJECTIVE: Vital Signs Period Temp Pulse Resp BP Sys/Garcia Pulse Ox Last 24 Hr 97.9 F-99.8 F 61-74 16-20 127-148/56-80 95-98 Gen: AAOx3, NAD HEENT: NCAT, EOMI Neck: supple, no jvd, trachea central Cardio: rrr, normal s1s2, no mrg noted Pulm: cta b/l Abd: soft, nontender, nondistended Ext: no edema, 1+ pulses Neuro: CN 2-12 intact, b/l UE strength 5/5, LLE 5/5, RLE hip flexion against resistance limited by back pain. Sensation intact throughout. Laboratory Results - last 24 hr 01/11/19 01/12/19 01/12/19 22:49 06:05 06:25 WBC 5.1 RBC 3.95 L Hgb 10.3 L Hct 30.7 L MCV 77.7 L MCH 26.0 MCHC 33.5 RDW 19.0 H Plt Count 131 L MPV 7.8 Sodium Potassium Chloride Carbon Dioxide Anion Gap BUN Creatinine Est GFR (CKD-EPI)AfAm Est GFR (CKD-EPI)NonAf POC Glucometer 195 149 Random Glucose Calcium Magnesium 01/12/19 01/12/19 01/12/19 06:25 11:19 16:32 WBC RBC Hgb Hct MCV MCH MCHC RDW Plt Count MPV Sodium 141 Potassium 4.2 Chloride 110 H Carbon Dioxide 25 Anion Gap 6 L BUN 38.4 H Creatinine 1.5 H Est GFR (CKD-EPI)AfAm 51.67 Est GFR (CKD-EPI)NonAf 44.58 POC Glucometer 219 156 Random Glucose 138 H Calcium 8.9 Magnesium 2.1 Active Medications Generic Name Dose Route Start Last Admin Trade Name Freq PRN Reason Stop Dose Admin Acetaminophen 650 mg 01/11/19 09:36 01/11/19 10:28 Tylenol Oral Solution - PO 650 mg Q6H PRN Administration PAIN Albuterol/Ipratropium 1 amp 01/11/19 09:38 01/12/19 16:57 Duoneb - NEB 1 amp Q6H PRN Administration SHORTNESS OF BREATH Carvedilol 3.125 mg 01/11/19 10:00 01/12/19 09:18 Coreg - PO 3.125 mg BID [facility] Administration Clopidogrel Bisulfate 75 mg 01/12/19 11:00 01/12/19 11:23 Plavix - PO 75 mg DAILY [facility] Administration Colchicine 0.6 mg 01/11/19 10:00 01/12/19 09:18 Colcrys PO 0.6 mg DAILY [facility] Administration Docusate Sodium 100 mg 01/11/19 14:00 01/12/19 14:23 Colace - PO 100 mg TID [facility] Administration Ferrous Sulfate 325 mg 01/11/19 10:00 01/12/19 09:18 Feosol - PO 325 mg DAILY [facility] Administration Heparin Sodium (Porcine) 5,000 unit 01/10/19 23:00 01/12/19 14:23 Heparin - SQ 5,000 unit TID [facility] Administration Sodium Chloride 1,000 mls @ 42 mls/hr 01/11/19 13:00 01/12/19 15:20 1/2 Normal Saline IV Not Given ASDIR [facility] Insulin Aspart 1 vial 01/11/19 07:00 01/12/19 17:13 Novolog Vial Sliding Scale - SQ 2 units ACHS [facility] Administration Protocol Insulin Detemir 10 units 01/11/19 22:00 01/12/19 00:18 Levemir Vial SQ 10 units HS [facility] Administration Melatonin 10 mg 01/11/19 22:00 01/12/19 00:19 Melatonin PO 10 mg HS [facility] Administration Polyethylene Glycol 17 gm 01/12/19 16:00 01/12/19 16:34 Miralax (For Daily Use) - PO 17 gm DAILY [facility] Administration Rosuvastatin Calcium 20 mg 01/11/19 22:00 01/12/19 00:19 Crestor - PO 20 mg HS [facility] Administration Sacubitril/Valsartan 1 tab 01/12/19 22:00 Entresto 24 Mg-26 Mg Tablet PO BID [facility] Senna 2 tab 01/12/19 22:00 Senna - PO HS [facility] Tamsulosin HCl 0.4 mg 01/11/19 08:30 01/12/19 09:18 Flomax - PO 0.4 mg DAILY@0830 [facility] Administration ASSESSMENT/PLAN: This is a 78 year old male with PMH significant for CAD, ICD placement, CHF, DM , COPD, frequent UTIs, and frequent falls who presented to ED with fall to his right. 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 No further workup - EKG shows NSR with 1st degree AV block - Tele monitoring - Cardio consulted to r/o cardiac cause of falls - PT order placed -Orthostatics positive with PT. Repeat in am following fluid repletion #Frequent UTIs - May be responsible for falls - UA: Blood 1+ (5 RBCs) LE 3+ (461 WBCs) - given Ceftriaxone 1gm - Renal USG to check for anatomical abnormalities/obstruction - Nephro consulted. f/u recs -Chronic funguria 2/2 stricture -Uro #APRYL - Renal US unremakable for anatomical cause. Noted to have cyst and atrophic R kidney - Nephro consulted. F/u recs - Holding Lasix - avoid NSAIDs -1/2 NS #Low MCV - MCV 77.9, Hct 35.6 (borderline normal) - Fe & TIBC low - FOBT serial ordered to check for blood loss #Hx of DM - Novolog SS started #FEN - Na controlled diet #DVT PE - Heparin 5000 SQ (avoid Lovenox due to APRYL) Visit type - Emergency Visit Emergency Visit: No - New Patient This patient is new to me today: No - Critical Care Critical Care patient: No ATTENDING PHYSICIAN STATEMENT I saw and evaluated the patient. I reviewed the resident's note and discussed the case with the resident. I agree with the resident's findings and plan as documented. SUBJECTIVE: OBJECTIVE: ASSESSMENT AND PLAN:
[2019-01-12] MEDS: SENNOSIDES 8.6MG TABLET (FP) PO SCH (21:32)
[2019-01-12] MEDS: SACUBITRIL/VALSARTAN 24 MG-26 MG TABLET PO SCH (21:32)
[2019-01-12] MEDS: ACETAMINOPHEN 650 MG/20.3 ML ORAL SOLUTION (CUPS) PO PRN (22:35)
[2019-01-13] MEDS: HEPARIN NA (PORCINE) 5,000 UNITS/ML 1ML VIAL SQ SCH ×3 (06:39→21:38)
[2019-01-13] MEDS: DOCUSATE SODIUM 100 MG CAPSULE (FP) PO SCH ×3 (06:39→21:38)
[2019-01-13] MEDS: INSULIN SLIDING SCALE (NOVOLOG) 1 VIAL SQ SCH ×4 (06:41→21:39)
[2019-01-13] MEDS: SODIUM CHLORIDE 0.45% 1,000 ML IV SCH ×2 (06:41→13:00)
[2019-01-13 08:36] LABS: BASO % 0.8 % (0-2.0); EOS % 3.2 % (0-4.5); HEMATOCRIT 27.9 % (35.4-49); HEMOGLOBIN 9.5 GM/dL (11.7-16.9); LYMPH % 23.6 % (8-40); MCH 26.3 pg (25.7-33.7); MCHC 33.9 g/dl (32.0-35.9); MEAN CELL VOLUME 77.5 fl (80-96); MEAN PLT VOLUME 7.9 fl (7.5-11.1); MONO % 8.9 % (3.8-10.2); NEUT % 63.5 % (42.8-82.8); PLATELET COUNT 124 K/MM3 (134-434); RDW 18.8 % (11.9-15.9); WHITE BLOOD COUNT 3.5 K/mm3 (4.0-10.0)
[2019-01-13 08:48] LABS: BLOOD UREA NITROGEN 32.3 mg/dL (7-18); CALCIUM 8.8 mg/dL (8.5-10.1); CREATININE 1.2 mg/dL (0.55-1.3); POTASSIUM 4.1 mmol/L (3.5-5.1)
[2019-01-13] MEDS ORDERED: PT OWN MED DRAWER 7, Y5N ONE ×3 (08:49→21:19)
[2019-01-13] MEDS: TAMSULOSIN HCL 0.4 MG CAP PO SCH (09:18)
[2019-01-13] MEDS: COLCHICINE 0.6 MG CAP PO SCH (09:18)
[2019-01-13] MEDS: CLOPIDOGREL BISULFATE 75 MG TABLET (FP) PO SCH (09:18)
[2019-01-13] MEDS: POLYETHYLENE GLYCOL 3350 119 GM BTL PO SCH (09:19)
[2019-01-13] MEDS: CARVEDILOL 3.125 MG TABLET (FP) PO SCH ×2 (09:19→21:38)
[2019-01-13] MEDS: FERROUS SO4 325 MG TABLET (FP) PO SCH (09:19)
[2019-01-13] MEDS: SACUBITRIL/VALSARTAN 24 MG-26 MG TABLET PO SCH ×2 (09:19→21:38)
--- NOTE | 2019-01-13 09:25 | PN ---
Progress Note, Physician History of Present Illness: Resting in bed, has not ambulated with walker assistance yet. - Current Medication List Current Medications: Active Medications Acetaminophen (Tylenol Oral Solution -) 650 mg PO Q6H PRN PRN Reason: PAIN Last Admin: 01/12/19 22:35 Dose: 650 mg Albuterol/Ipratropium (Duoneb -) 1 amp NEB Q6H PRN PRN Reason: SHORTNESS OF BREATH Last Admin: 01/12/19 16:57 Dose: 1 amp Carvedilol (Coreg -) 3.125 mg PO BID [facility]END[facility] S[facility] TO [facility] Last Admin: 01/13/19 09:19 Dose: 3.125 mg Clopidogrel Bisulfate (Plavix -) 75 mg PO DAILY [facility] Last Admin: 01/13/19 09:18 Dose: 75 mg Colchicine (Colcrys) 0.6 mg PO DAILY [facility] Last Admin: 01/13/19 09:18 Dose: 0.6 mg Docusate Sodium (Colace -) 100 mg PO TID [facility]END[facility] Last Admin: 01/13/19 06:39 Dose: 100 mg Ferrous Sulfate (Feosol -) 325 mg PO DAILY [facility] Last Admin: 01/13/19 09:19 Dose: 325 mg Heparin Sodium (Porcine) (Heparin -) 5,000 unit SQ TID [facility] Last Admin: 01/13/19 06:39 Dose: 5,000 unit Sodium Chloride (1/2 Normal Saline) 1,000 mls @ 42 mls/hr IV ASDIR PEND[facility] SALE [facility] Last Admin: 01/13/19 06:41 Dose: 42 mls/hr Insulin Aspart (Novolog Vial Sliding Scale -) 1 vial SQ [facility]; Protocol Last Admin: 01/13/19 06:41 Dose: Not Given Insulin Detemir (Levemir Vial) 10 units SQ [facility] Last Admin: 01/12/19 21:32 Dose: 10 units Melatonin (Melatonin) 10 mg PO HS [facility] Last Admin: 01/12/19 21:32 Dose: 10 mg Polyethylene Glycol (Miralax (For Daily Use) -) 17 gm PO DAILY [facility] Last Admin: 01/13/19 09:19 Dose: 17 gm Rosuvastatin Calcium (Crestor -) 20 mg PO HS [facility] Last Admin: 01/12/19 21:32 Dose: 20 mg Sacubitril/Valsartan (Entresto 24 Mg-26 Mg Tablet) 1 tab PO BID [facility] Last Admin: 01/13/19 09:19 Dose: 1 tab Senna (Senna -) 2 tab PO HS [facility] Last Admin: 01/12/19 21:32 Dose: 2 tab Tamsulosin HCl (Flomax -) 0.4 mg PO DAILY@0830 [facility] Last Admin: 01/13/19 09:18 Dose: 0.4 mg - Objective Vital Signs: Vital Signs Temperature 98.1 F 01/13/19 06:00 Pulse Rate 66 01/13/19 08:00 Respiratory Rate 16 01/13/19 09:00 Blood Pressure 92/46 L 01/13/19 08:00 O2 Sat by Pulse Oximetry (%) 98 01/13/19 09:00 Labs: CBC, BMP 01/13/19 06:42 Assessment/Plan Problem List - Problems (1) Recurrent falls Code(s): R29.6 - REPEATED FALLS (2) Urinary tract infection Code(s): N39.0 - URINARY TRACT INFECTION, SITE NOT SPECIFIED (3) Acute on chronic diastolic CHF (congestive heart failure) Code(s): I50.33 - ACUTE ON CHRONIC DIASTOLIC (CONGESTIVE) HEART FAILURE (4) Acute on chronic renal insufficiency Code(s): N28.9 - DISORDER OF KIDNEY AND URETER, UNSPECIFIED; N18.9 - CHRONIC KIDNEY DISEASE, UNSPECIFIED (5) Anemia Code(s): D64.9 - ANEMIA, UNSPECIFIED Qualifiers: Anemia type: due to chronic kidney disease Chronic kidney disease stage: stage 3 (moderate) Qualified Code(s): N18.3 - Chronic kidney disease, stage 3 (moderate); D63.1 - Anemia in chronic kidney disease; D63.1 - Anemia in chronic kidney disease (6) CAD (coronary artery disease) Code(s): I25.10 - ATHSCL HEART DISEASE OF [place] CORONARY ARTERY W/O ANG PCTRS Qualifiers: Coronary Disease-Associated Artery/Lesion type: [place] artery [place] vs. transplanted heart: hopi heart Associated angina: without angina Qualified Code(s): I25.10 - Atherosclerotic heart disease of [place] coronary artery without angina pectoris (7) CKD (chronic kidney disease) Code(s): N18.9 - CHRONIC KIDNEY DISEASE, UNSPECIFIED Qualifiers: Chronic kidney disease stage: stage 3 (moderate) Qualified Code(s): N18.3 - Chronic kidney disease, stage 3 (moderate) (8) COPD (chronic obstructive pulmonary disease) Code(s): J44.9 - CHRONIC OBSTRUCTIVE PULMONARY DISEASE, UNSPECIFIED Qualifiers: (9) Generalized weakness Code(s): R53.1 - WEAKNESS (10) History of percutaneous coronary intervention Code(s): Z98.890 - OTHER SPECIFIED POSTPROCEDURAL STATES (11) Hx of CABG Code(s): Z95.1 - PRESENCE OF AORTOCORONARY BYPASS GRAFT (12) Hyperlipidemia Code(s): E78.5 - HYPERLIPIDEMIA, UNSPECIFIED Qualifiers: Hyperlipidemia type: pure hypercholesterolemia Qualified Code(s): E78.00 - Pure hypercholesterolemia, unspecified; E78.0 - Pure hypercholesterolemia (13) Hypertension Code(s): I10 - ESSENTIAL (PRIMARY) HYPERTENSION (14) ICD (implantable cardioverter-defibrillator) in place Code(s): Z95.810 - PRESENCE OF AUTOMATIC (IMPLANTABLE) CARDIAC DEFIBRILLATOR (15) NYHA class 2 acute on chronic systolic heart failure Code(s): I50.23 - ACUTE ON CHRONIC SYSTOLIC (CONGESTIVE) HEART FAILURE (16) PVD (peripheral vascular disease) Code(s): I73.9 - PERIPHERAL VASCULAR DISEASE, UNSPECIFIED (17) Pulmonary HTN Code(s): I27.20 - PULMONARY HYPERTENSION, UNSPECIFIED (18) Type 2 diabetes mellitus Code(s): E11.9 - TYPE 2 DIABETES MELLITUS WITHOUT COMPLICATIONS Qualifiers: Assessment/Plan 1. Multiple mechanical falls with right hip pain and lower extremity weakness 2. LV systolic dysfunction (EF 25-30%) class 2 NYHA classification heart failure , compensated/euvolemic 3. Post ICD 4. HTN 5. DM 6. Hypercholesterolemia 7. CKD II 8. CAD s/p CABG, PCI, angina pectoris 9. PAD post Fem Pop bypass, [employer] 10. COPD 11. UTI 12. Achalasia s/p Heller's myotomy 13. 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 Gout PLAN: 1. Continue Carvedilol 3.125 mg BID and resume Entresto 24/26 mg BID renal function at baseline, observe off Lasix 2. Resume Plavix 75 qd 3. Continue Rosuvastatin 20 qd 4. No need for additional cardiac evaluation at this time and follow up can be done as outpatient 5. Continue abx coure 6. PT and gait training with walker assistance
--- NOTE | 2019-01-13 10:01 | PN ---
Teaching Attending Note Name of Resident: Neto Wynn ATTENDING PHYSICIAN STATEMENT I saw and evaluated the patient. I reviewed the resident's note and discussed the case with the resident. I agree with the resident's findings and plan as documented. Seen and examined; informed he had some coffee during breakfast. Contacting speech and swallow for evaluation. No further symptoms; again with positive orthostatic VS noted this AM (was on 42cc/hr fluids overnight by nephrology). Still holding the lasix. ASSESSMENT AND PLAN:
--- NOTE | 2019-01-13 10:34 | CONSULT ---
Admitting History and Physical - Primary Care Physician PCP: Jeremi Staton - Admission History of Present Illness: 77 yom with PMhx of Severe Systolic CHF (EF 25-30%), s/p ICD, CAD s/p CABG/PCI ( last PCI 2-3 years ago), PAD s/p b/o fem-pop bypass, LE PCI with stenting, IDDM poorly controlled, Achalasia s/p Heller's myotomy, PUD s/p partial gastrectomy ( Bilroth Type II) years ago, HTN, HLD, COPD (>60 pack year smoking history) admitted with falls. Selected Entries 01/12/19 01/12/19 01/12/19 01:59 02:00 06:00 Lunch Supper Temperature 97.9 F 99.8 F H 98.3 F 01/12/19 01/12/19 01/12/19 09:15 13:59 18:00 Lunch 50% Supper Temperature 98.9 F 98.3 F 98.0 F 01/12/19 01/12/19 01/13/19 22:00 23:00 06:00 Lunch Supper 75% Temperature 97.9 F 98.1 F Laboratory Tests 01/12/19 01/13/19 06:25 06:42 WBC 5.1 3.5 L On soft diet/thin liquids. [employer] noted food spit out in cups at bedside. Very forgetful. He said he tolerated breakfast but was coughing and expectorating what he ate. Weight- 8/1 177 8/5 180 9/2 162 Pt reports eating food and bringing it back up, for over a year. At least daily. He feels it happens with all consistencies of food. He is not on supplements. Diabetic. "Never heard of Glucerna". Pt does not want diet downgrade. Pt was on chopped diet in past. Similar c/o in previous reports, dating back to May 2018. 2017 similar complaint. 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, in the gastric remnant Possible fundoplication on retroflexion Post-billroth II anatomy Normal afferent and efferent limbs Advance diet as tolerated, patient should eat smaller, more frequent meals and remain upright for one hour afterwards Await biopsies If abdominal pain, can consider cholestyramine for bile gastritis History Source: Patient Limitations to Obtaining History: Clinical Condition (forgetful) - Past Medical History Cardiovascular: Yes: CAD, CHF, HTN, Hyperlipdemia, [place] Pulmonary: Yes: Asthma, Bronchitis, COPD, Pneumonia Gastrointestinal: Yes: Constipation Renal/: Yes: BPH Heme/Onc: Yes: Cancer (Lung) Musculoskeletal: Yes: Chronic low back pain, Osteoarthritis Endocrine: Yes: Diabetes Mellitus - Past Surgical History Past Surgical History: Yes: CABG, Cholecystectomy - Smoking History Smoking history: Former smoker Have you smoked in the past 12 months: No Aproximately how many cigarettes per day: 30 If you are a former smoker, when did you quit?: 2 YRS - Alcohol/Substance Use Hx Alcohol Use: Yes History of Substance Use: reports: None - Social History ADL: Independent Occupation: retired: worked for [employer] History of Recent Travel: No History - Admission Reason For Visit: UTI, RECURRENT FALLS - Diagnostics X-ray: Report Reviewed Modified Barium Swallow: Report Reviewed (2017 (-), 08/05/2018 alo hang up-r/o stricture.08/06/18 Standard BA sw -No stricture/tertiary contractions.) - General Mental Status: Alert and Oriented, Awake and Alert, Forgetful Attention: Intact Ability to Follow Directions: Good Head/Neck Control: WFL - Hearing Hearing: Normal Hearing Aide: No With Patient: No Speech Evaluation - Communication Primary Language: CROATIAN Communication: Yes: Within Normal Limits Oral Expression Ability: Yes: No Impairment - Speech Production Able to Make Needs Known: Yes: WNL Intelligibility: Yes: WNL - Speech Characteristics Voice Loudness: Normal Voice Pitch: Yes: Normal Voice Phonatory-based Quality: Yes: Normal Speech Pattern: Normal Speech Clarity: < 100% Nasal Resonance: Normal Articulation: Yes: Precise Rate of Speech: Intact - Language/Auditory Comprehension Follows: Yes: 1 Stage Simple Commands Observation: Able to respond to yes/no queries: Yes, Yes/No Confusion: No, Comprehends Conversational Speech: Yes - Language/Verbal Expression Able to Respond to Simple Queries: Yes: WNL Able to Communicate Wants and Needs: Yes: WNL Functional Communication Status: Yes: WNL - Swallow Evaluation/Bedside Assessment Current Nutritional Intake: Soft, Thin Liquids Oral Secretions: Yes: WFL Dentition: Yes: Edentulous (lower), Dental Appliance Upper Facial Symmetry at Rest: Symmetrical Facial Symmetry on Retraction: Symmetrical Facial Movement: Controlled Against Resistance Opening: Normal Against Resistance Closing: Normal Pucker Lips: Normal Smile: Normal Lingual Movement: Normal, Symmetric Lingual Speed of Movement: Normal Lingual Movement Strgth Against Opposition: Normal Lingual Movement Characteristics: Normal Velopharyngeal Movement: Normal Laryngeal Elevation: WFL Laryngeal Movement: Able to Palpate Rate of Intake: WFL Bolus Size: WFL Labial Seal: WFL Chewing: WFL Oral Prep Time: WFL A-P Transit: WFL Pocketing: None Timing of Swallow: WFL Coughing/Throat Clear: No Change in Voice: No Recommendations - Speech Evaluation, Impression/Plan Impression: Pt reports eating food and bringing it back up, for over a year. Pt does not want diet downgrade. Significant weight loss. r/o esophageal Dysphagia - Disposition Discharge to: To be Determined - Dysphagia Impressions/Plan Swallowing Skills: Impaired Dysphagia Impressions: Ongoing Evaluation *Silent aspiration: cannot be R/O at bedside Dysphagia Treatment Plan: Small Bites, Safe Rate, 1/2 tsp. at a time, OOB for meals, OOB for 1 h. after meals, Other (Small amount throughout the day. Alternate solids with liquids. Complete meal with liquid. Maintain upright posture after meals (Pt frequently reclines)) Recommendations: GI Consult - Recommendations Diet Consistency: Dysphagia Whole (chopped meat) Liquids: Thin Liquids Supplement: Ensure Pudding, Glucerna (tid)
--- NOTE | 2019-01-13 11:18 | CON.ID ---
Consult Consult Specialty:: infectious diseases Referred by:: Reason for Consultation:: uti,fall - History of Present Illness Chief Complaint: fall,knee pain History of Present Illness: 78 year old male with PMH significant for CAD, ICD placement, CHF, DM, COPD, frequent UTIs, and frequent falls. He presented the the ER from home after he fell down yesterday evening. He was seated on a chair on his porch, and while getting up, he fell to his right. He landed on his right hip. He does not complain of feeling light headed or dizzy, did not hit his head, did not lose consciousness, and did not land on his arm or outstretched hand. He suffered from sudden onset pain in his right hip, rated 10/10, non-radiating, and aggravated by movement. He was then helped up by his family, who witnessed the event, and was brought inside, where he rested on a recliner for a while. He took an Ibuprofen to help with the pain, and then went to sleep. This morning he still felt pain in his right hip, which had now extended to his right knee as well. He had no associated dizziness, light headedness, shortness of breath, chest pain, palpitations, nausea, vomiting, diarrhea, or dysuria. He states that he has had 7 episodes of falling down over the past few months, always on his right side, and always without any prior warning signs (ie no pre- syncopal symptoms). The only history of trauma in the area is after he received a testosterone injection in his right hip 2 years ago. He felt a sudden shock down his leg during the injection, and felt pain down his leg. He was taken to the ER, but by that time the pain had subsided and he sought no further treatment. He normally ambulates with a cane. the above was the history for admission patient was started on ceftriaxone and uti was send which is now growing fungus at the moment patients main complaint is knee pain - Past Medical History Cardio/Vascular: Yes: CAD, CHF, HTN, Hyperlipdemia, [place] Pulmonary: Yes: Asthma, Bronchitis, COPD, Pneumonia Gastrointestinal: Yes: Constipation Renal/: Yes: BPH Musculoskeletal: Yes: Chronic low back pain, Osteoarthritis Endocrine: Yes: Diabetes Mellitus - Past Surgical History Past Surgical History: Yes: CABG, Cholecystectomy Additional Surgical History: ICD - Alcohol/Substance Use Hx Alcohol Use: Yes History of Substance Use: reports: None - Smoking History Smoking history: Former smoker Have you smoked in the past 12 months: No Aproximately how many cigarettes per day: 30 If you are a former smoker, when did you quit?: 2 YRS - Social History Usual Living Arrangement: With Spouse ADL: Independent Occupation: retired: worked for [employer] History of Recent Travel: No Home Medications - Allergies Allergies/Adverse Reactions: Allergies Allergy/AdvReac Type Severity Reaction Status Date / Time pregabalin [From Lyrica] Allergy Severe Verified 01/10/19 15:14 - Home Medications Home Medications: Ambulatory Orders Bimatoprost [Lumigan] 1 drop IO DAILY 12/08/18 Budesonide/Formeterol Fumarate [SYMBICORT 160/4.5mcg -] 16 inh PO BID 12/08/18 Carvedilol 3.125 mg PO BID 12/08/18 Clopidogrel Bisulfate [Plavix] 75 mg PO DAILY 12/08/18 Escitalopram Oxalate [Lexapro -] 20 mg PO DAILY 12/08/18 Furosemide [Lasix] 20 mg PO DAILY 12/08/18 Insulin Glargine,Hum.rec.anlog [Lantus] 100 unit SQ ASDIR 12/08/18 Insulin Lispro [Humalog] 10 - 34 unit SQ TID 12/08/18 Pantoprazole Sodium 40 mg PO DAILY 12/08/18 Rosuvastatin Calcium [Crestor] 20 mg PO HS 12/08/18 Sacubitril/Valsartan [Entresto 24 mg-26 mg Tablet] 24 - 26 mg PO BID 12/08/18 Insulin Sliding Scale [Novolog Vial Sliding Scale -] 1 vial SQ ACHS units 12/13 Albuterol Sulfate Inhaler - [Ventolin Hfa Inhaler -] 2 inh PO TID 01/11/19 Allopurinol [Zyloprim -] 100 mg PO BID 01/11/19 Blood Sugar Diagnostic [Test Strips] 1 each MC TID 01/11/19 Colchicine [Colcrys] 0.6 mg PO DAILY 01/11/19 Ibuprofen 800 mg PO TID 01/11/19 Insulin Glargine,Hum.rec.anlog [Lantus Solostar PEN (NF)] 58 units SQ HS Insulin Lispro [Humalog] 10 - 34 unit SQ TID 01/11/19 Tamsulosin HCl 0.4 mg PO DAILY 01/11/19 Family Disease History - Family Disease History Family Disease History: CA: Mother (Gastric), Other: Father (CAD), Brother, Sister, Son, Daughter Review of Systems - Review of Systems Constitutional: reports: Other Eyes: reports: No Symptoms HENT: reports: No Symptoms Neck: reports: No Symptoms Cardiovascular: reports: No Symptoms Respiratory: reports: No Symptoms Gastrointestinal: reports: No Symptoms Musculoskeletal: reports: Joint Swelling Integumentary: reports: No Symptoms Neurological: reports: No Symptoms Endocrine: reports: No Symptoms Hematology/Lymphatic: reports: No Symptoms Psychiatric: reports: No Symptoms Physical Exam Vital Signs: Vital Signs Temperature 98.1 F 01/13/19 06:00 Pulse Rate 66 01/13/19 08:00 Respiratory Rate 16 01/13/19 09:00 Blood Pressure 92/46 L 01/13/19 08:00 O2 Sat by Pulse Oximetry (%) 98 01/13/19 09:00 Constitutional: Yes: Well Nourished, Calm, Mild Distress Neck: Yes: Supple, Trachea Midline Cardiovascular: Yes: Regular Rate and Rhythm Respiratory: Yes: Regular, CTA Bilaterally Gastrointestinal: Yes: Normal Bowel Sounds, Soft Musculoskeletal: Yes: Other (knee pain) Extremities: Yes: Other (knee pain) Neurological: Yes: Alert, Oriented Psychiatric: Yes: Alert, Oriented Labs: CBC, BMP 01/13/19 06:42 01/13/19 06:42 Imaging - Results Chest X-ray: Report Reviewed, Image Reviewed X-ray: Report Reviewed, Image Reviewed Assessment/Plan 78 year old male with PMH significant for CAD, ICD placement, CHF, DM, COPD, frequent UTIs, and frequent falls who presented to ED with fall to his right. Falls Frequent UTIs APRYL DM plan will not start on abx will watch rest as per the team
--- NOTE | 2019-01-13 11:37 | PN ---
Progress Note, Physician History of Present Illness: Resting in bed, has not ambulated with walker assistance yet, orthostatic in AM. - Current Medication List Current Medications: Active Medications Acetaminophen (Tylenol Oral Solution -) 650 mg PO Q6H PRN PRN Reason: PAIN Last Admin: 01/12/19 22:35 Dose: 650 mg Albuterol/Ipratropium (Duoneb -) 1 amp NEB Q6H PRN PRN Reason: SHORTNESS OF BREATH Last Admin: 01/12/19 16:57 Dose: 1 amp Carvedilol (Coreg -) 3.125 mg PO BID [facility] Last Admin: 01/13/19 09:19 Dose: 3.125 mg Clopidogrel Bisulfate (Plavix -) 75 mg PO DAILY [facility] Last Admin: 01/13/19 09:18 Dose: 75 mg Colchicine (Colcrys) 0.6 mg PO DAILY [facility] Last Admin: 01/13/19 09:18 Dose: 0.6 mg Docusate Sodium (Colace -) 100 mg PO TID [facility] Last Admin: 01/13/19 06:39 Dose: 100 mg Ferrous Sulfate (Feosol -) 325 mg PO DAILY [facility] Last Admin: 01/13/19 09:19 Dose: 325 mg Heparin Sodium (Porcine) (Heparin -) 5,000 unit SQ TID [facility] Last Admin: 01/13/19 06:39 Dose: 5,000 unit Sodium Chloride (1/2 Normal Saline) 1,000 mls @ 42 mls/hr IV ASDIR [facility] Last Admin: 01/13/19 06:41 Dose: 42 mls/hr Insulin Aspart (Novolog Vial Sliding Scale -) 1 vial SQ [facility]; Protocol Last Admin: 01/13/19 06:41 Dose: Not Given Insulin Detemir (Levemir Vial) 10 units SQ HS [facility] Last Admin: 01/12/19 21:32 Dose: 10 units Melatonin (Melatonin) 10 mg PO HS [facility] Last Admin: 01/12/19 21:32 Dose: 10 mg Polyethylene Glycol (Miralax (For Daily Use) -) 17 gm PO DAILY [facility] Last Admin: 01/13/19 09:19 Dose: 17 gm Rosuvastatin Calcium (Crestor -) 20 mg PO HS [facility] Last Admin: 01/12/19 21:32 Dose: 20 mg Sacubitril/Valsartan (Entresto 24 Mg-26 Mg Tablet) 1 tab PO BID [facility] Last Admin: 01/13/19 09:19 Dose: 1 tab Senna (Senna -) 2 tab PO HS [facility] Last Admin: 01/12/19 21:32 Dose: 2 tab Tamsulosin HCl (Flomax -) 0.4 mg PO DAILY@0830 [facility] Last Admin: 01/13/19 09:18 Dose: 0.4 mg - Objective Vital Signs: Vital Signs Temperature 97.9 F 01/13/19 10:00 Pulse Rate 61 01/13/19 10:00 Respiratory Rate 18 01/13/19 10:00 Blood Pressure 118/50 L 01/13/19 10:00 O2 Sat by Pulse Oximetry (%) 98 01/13/19 09:00 Constitutional: Yes: No Distress, Calm, Thin Neck: Yes: Supple Cardiovascular: Yes: Regular Rate and Rhythm Respiratory: Yes: Regular, CTA Bilaterally Gastrointestinal: Yes: Normal Bowel Sounds, Soft Edema: No Labs: CBC, BMP 01/13/19 06:42 01/13/19 06:42 - ....Imaging EKG: Report Reviewed (Tele: NSR) Problem List - Problems (1) Orthostasis Code(s): I95.1 - ORTHOSTATIC HYPOTENSION Assessment/Plan Problem List - Problems (1) Recurrent falls Code(s): R29.6 - REPEATED FALLS (2) Urinary tract infection Code(s): N39.0 - URINARY TRACT INFECTION, SITE NOT SPECIFIED (3) Acute on chronic diastolic CHF (congestive heart failure) Code(s): I50.33 - ACUTE ON CHRONIC DIASTOLIC (CONGESTIVE) HEART FAILURE (4) Acute on chronic renal insufficiency Code(s): N28.9 - DISORDER OF KIDNEY AND URETER, UNSPECIFIED; N18.9 - CHRONIC KIDNEY DISEASE, UNSPECIFIED (5) Anemia Code(s): D64.9 - ANEMIA, UNSPECIFIED Qualifiers: Anemia type: due to chronic kidney disease Chronic kidney disease stage: stage 3 (moderate) Qualified Code(s): N18.3 - Chronic kidney disease, stage 3 (moderate); D63.1 - Anemia in chronic kidney disease; D63.1 - Anemia in chronic kidney disease (6) CAD (coronary artery disease) Code(s): I25.10 - ATHSCL HEART DISEASE OF [place] CORONARY ARTERY W/O ANG PCTRS Qualifiers: Coronary Disease-Associated Artery/Lesion type: [place] artery [place] vs. transplanted heart: [place] heart Associated angina: without angina Qualified Code(s): I25.10 - Atherosclerotic heart disease of [place] coronary artery without angina pectoris (7) CKD (chronic kidney disease) Code(s): N18.9 - CHRONIC KIDNEY DISEASE, UNSPECIFIED Qualifiers: Chronic kidney disease stage: stage 3 (moderate) Qualified Code(s): N18.3 - Chronic kidney disease, stage 3 (moderate) (8) COPD (chronic obstructive pulmonary disease) Code(s): J44.9 - CHRONIC OBSTRUCTIVE PULMONARY DISEASE, UNSPECIFIED Qualifiers: (9) Generalized weakness Code(s): R53.1 - WEAKNESS (10) History of percutaneous coronary intervention Code(s): Z98.890 - OTHER SPECIFIED POSTPROCEDURAL STATES (11) Hx of CABG Code(s): Z95.1 - PRESENCE OF AORTOCORONARY BYPASS GRAFT (12) Hyperlipidemia Code(s): E78.5 - HYPERLIPIDEMIA, UNSPECIFIED Qualifiers: Hyperlipidemia type: pure hypercholesterolemia Qualified Code(s): E78.00 - Pure hypercholesterolemia, unspecified; E78.0 - Pure hypercholesterolemia (13) Hypertension Code(s): I10 - ESSENTIAL (PRIMARY) HYPERTENSION (14) ICD (implantable cardioverter-defibrillator) in place Code(s): Z95.810 - PRESENCE OF AUTOMATIC (IMPLANTABLE) CARDIAC DEFIBRILLATOR (15) NYHA class 2 acute on chronic systolic heart failure Code(s): I50.23 - ACUTE ON CHRONIC SYSTOLIC (CONGESTIVE) HEART FAILURE (16) PVD (peripheral vascular disease) Code(s): I73.9 - PERIPHERAL VASCULAR DISEASE, UNSPECIFIED (17) Pulmonary HTN Code(s): I27.20 - PULMONARY HYPERTENSION, UNSPECIFIED (18) Type 2 diabetes mellitus Code(s): E11.9 - TYPE 2 DIABETES MELLITUS WITHOUT COMPLICATIONS Qualifiers: Assessment/Plan 1. Multiple mechanical falls with right hip pain and lower extremity weakness with orthostasis 2. LV systolic dysfunction (EF 25-30%) class 2 NYHA classification heart failure , compensated/euvolemic 3. Post ICD 4. HTN 5. DM 6. Hypercholesterolemia 7. CKD II 8. CAD s/p CABG, PCI, angina pectoris 9. PAD post Fem Pop bypass, [employer] 10. COPD 11. UTI 12. Achalasia s/p Heller's myotomy 13. 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 Gout PLAN: 1. Continue Carvedilol 3.125 mg BID and Entresto 24/26 mg BID renal function at baseline, observe off Lasix, flomax to night-time dosing 2. Continue Plavix 75 qd 3. Continue Rosuvastatin 20 qd 4. No need for additional cardiac evaluation at this time and follow up can be done as outpatient 5. Observe off abx per ID 6. PT and gait training with walker assistance 7. Dysphagia diet per S&S
[2019-01-13] MEDS ORDERED: GLYCERIN 1 RECTAL SUPPOSITORY, ADULT RC ONE (13:15)
--- NOTE | 2019-01-13 13:33 | PN ---
Progress Note, Physician History of Present Illness: Pt seen and examined at bedside. He is awake and alert. He says that he feels well. - Current Medication List Current Medications: Active Medications Acetaminophen (Tylenol Oral Solution -) 650 mg PO Q6H PRN PRN Reason: PAIN Last Admin: 01/12/19 22:35 Dose: 650 mg Albuterol/Ipratropium (Duoneb -) 1 amp NEB Q6H PRN PRN Reason: SHORTNESS OF BREATH Last Admin: 01/12/19 16:57 Dose: 1 amp Carvedilol (Coreg -) 3.125 mg PO BID [facility] Last Admin: 01/13/19 09:19 Dose: 3.125 mg Clopidogrel Bisulfate (Plavix -) 75 mg PO DAILY [facility] Last Admin: 01/13/19 09:18 Dose: 75 mg Colchicine (Colcrys) 0.6 mg PO DAILY [facility] Last Admin: 01/13/19 09:18 Dose: 0.6 mg Docusate Sodium (Colace -) 100 mg PO TID [facility] Last Admin: 01/13/19 06:39 Dose: 100 mg Ferrous Sulfate (Feosol -) 325 mg PO DAILY [facility] Last Admin: 01/13/19 09:19 Dose: 325 mg Heparin Sodium (Porcine) (Heparin -) 5,000 unit SQ TID [facility] Last Admin: 01/13/19 06:39 Dose: 5,000 unit Sodium Chloride (1/2 Normal Saline) 1,000 mls @ 42 mls/hr IV ASDIR [facility] Last Admin: 01/13/19 06:41 Dose: 42 mls/hr Insulin Aspart (Novolog Vial Sliding Scale -) 1 vial SQ [facility]; Protocol Last Admin: 01/13/19 11:58 Dose: 4 units Insulin Detemir (Levemir Vial) 10 units SQ [facility] Last Admin: 01/12/19 21:32 Dose: 10 units Melatonin (Melatonin) 10 mg PO HS [facility] Last Admin: 01/12/19 21:32 Dose: 10 mg Polyethylene Glycol (Miralax (For Daily Use) -) 17 gm PO DAILY [facility] Last Admin: 01/13/19 09:19 Dose: 17 gm Rosuvastatin Calcium (Crestor -) 20 mg PO HS [facility] Last Admin: 01/12/19 21:32 Dose: 20 mg Sacubitril/Valsartan (Entresto 24 Mg-26 Mg Tablet) 1 tab PO BID [facility] Last Admin: 01/13/19 09:19 Dose: 1 tab Senna (Senna -) 2 tab PO HS [facility] Last Admin: 01/12/19 21:32 Dose: 2 tab Tamsulosin HCl (Flomax -) 0.4 mg PO DAILY@0830 [facility] Last Admin: 01/13/19 09:18 Dose: 0.4 mg - Objective Vital Signs: Vital Signs Temperature 97.9 F 01/13/19 10:00 Pulse Rate 61 01/13/19 10:00 Respiratory Rate 18 01/13/19 10:00 Blood Pressure 118/50 L 01/13/19 10:00 O2 Sat by Pulse Oximetry (%) 98 01/13/19 09:00 Constitutional: Yes: Calm Eyes: Yes: Conjunctiva Clear HENT: Yes: Atraumatic Neck: Yes: Supple Cardiovascular: Yes: S1, S2 Respiratory: Yes: CTA Bilaterally Gastrointestinal: Yes: Normal Bowel Sounds, Soft Genitourinary: Yes: WNL Musculoskeletal: Yes: WNL Edema: No Neurological: Yes: Oriented Psychiatric: Yes: Oriented Labs: CBC, BMP 01/13/19 06:42 01/13/19 06:42 Problem List - Problems (1) Recurrent falls Code(s): R29.6 - REPEATED FALLS (2) Urinary tract infection Code(s): N39.0 - URINARY TRACT INFECTION, SITE NOT SPECIFIED Assessment/Plan Current Medications Generic Name Dose Route Start Last Admin Trade Name Freq PRN Reason Stop Dose Admin Acetaminophen 650 mg 01/11/19 09:36 01/12/19 22:35 Tylenol Oral Solution - PO 650 mg Q6H PRN Administration PAIN Albuterol/Ipratropium 1 amp 01/11/19 09:38 01/12/19 16:57 Duoneb - NEB 1 amp Q6H PRN Administration SHORTNESS OF BREATH Carvedilol 3.125 mg 01/11/19 10:00 01/13/19 09:19 Coreg - PO 3.125 mg BID [facility] Administration Clopidogrel Bisulfate 75 mg 01/12/19 11:00 01/13/19 09:18 Plavix - PO 75 mg DAILY [facility] Administration Colchicine 0.6 mg 01/11/19 10:00 01/13/19 09:18 Colcrys PO 0.6 mg DAILY [facility] Administration Docusate Sodium 100 mg 01/11/19 14:00 01/13/19 06:39 Colace - PO 100 mg TID [facility] Administration Ferrous Sulfate 325 mg 01/11/19 10:00 01/13/19 09:19 Feosol - PO 325 mg DAILY [facility] Administration Heparin Sodium (Porcine) 5,000 unit 01/10/19 23:00 01/13/19 06:39 Heparin - SQ 5,000 unit TID [facility] Administration Sodium Chloride 1,000 mls @ 42 mls/hr 01/11/19 13:00 01/13/19 06:41 1/2 Normal Saline IV 42 mls/hr ASDIR [facility] Administration Insulin Aspart 1 vial 01/11/19 07:00 01/13/19 11:58 Novolog Vial Sliding Scale - SQ 4 units ACHS [facility] Administration Protocol Insulin Detemir 10 units 01/11/19 22:00 01/12/19 21:32 Levemir Vial SQ 10 units HS [facility] Administration Melatonin 10 mg 01/11/19 22:00 01/12/19 21:32 Melatonin PO 10 mg HS [facility] Administration Polyethylene Glycol 17 gm 01/12/19 16:00 01/13/19 09:19 Miralax (For Daily Use) - PO 17 gm DAILY [facility] Administration Rosuvastatin Calcium 20 mg 01/11/19 22:00 01/12/19 21:32 Crestor - PO 20 mg HS [facility] Administration Sacubitril/Valsartan 1 tab 01/12/19 22:00 01/13/19 09:19 Entresto 24 Mg-26 Mg Tablet PO 1 tab BID [facility] Administration Senna 2 tab 01/12/19 22:00 01/12/19 21:32 Senna - PO 2 tab HS [facility] Administration Tamsulosin HCl 0.4 mg 01/11/19 08:30 01/13/19 09:18 Flomax - PO 0.4 mg DAILY@0830 [facility] Administration Impression 1. CKD 2. dehydration 3. PVD 4. HLD 5. UTI 6. atrophic right kidney Plan - renal function is improved - d/c fluids - monitor bp - monitor volume status
[2019-01-13] MEDS: ACETAMINOPHEN 650 MG/20.3 ML ORAL SOLUTION (CUPS) PO PRN ×2 (13:41→21:11)
--- NOTE | 2019-01-13 14:32 | PN ---
Progress Note (short form) - Note Progress Note: 78 year old male history of CAD,CHF,ICD placement, COPD,DM. Bing presented with recurrent falls over last few months. He has total of 7 fall. He denies any feeling dizzy, spinning of dysbalance feeling before fall. He would suddenly fall, and he describes as possible very brief LOC. Patient would regain consiousnesss very quicky , there is no seizure or incontinence . Patient also been feeling right hip pain following fall. He also been diagnosed with gout recently. patient is feeling better, afraid to talk. He still have right hip pain, and carotid ultrasound unremarkable. 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 1Multiple fall, he describes there is no aura and along wtih very brief LOC. Neurological exam is noraml. 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 Most likley these episodes are syncope Plan: no further recommendation from neuro point of view follow up prn Thanking you so much Cornelius Powell MD
--- NOTE | 2019-01-13 17:12 | PN ---
Physical Exam: SUBJECTIVE: Patient seen and examined at bedside. No complaints. OBJECTIVE: Vital Signs Period Temp Pulse Resp BP Sys/Gacria Pulse Ox Last 24 Hr 97.9 F-98.2 F 56-80 16-18 90-148/42-80 98-98 Gen: AAOx3, NAD HEENT: NCAT, EOMI Neck: supple, no jvd, trachea central Cardio: rrr, normal s1s2, no mrg noted Pulm: cta b/l Abd: soft, nontender, nondistended Ext: no edema, 1+ pulses Neuro: CN 2-12 intact, b/l UE strength 5/5, LLE 5/5, RLE hip flexion against resistance limited by back pain. Sensation intact throughout. Laboratory Results - last 24 hr 01/12/19 01/13/19 01/13/19 20:51 06:40 06:42 WBC 3.5 L RBC 3.60 L Hgb 9.5 L Hct 27.9 L MCV 77.5 L MCH 26.3 MCHC 33.9 RDW 18.8 H Plt Count 124 L MPV 7.9 Absolute Neuts (auto) 2.3 Neutrophils % 63.5 Lymphocytes % 23.6 Monocytes % 8.9 Eosinophils % 3.2 Basophils % 0.8 Nucleated RBC % 0 Sodium Potassium Chloride Carbon Dioxide Anion Gap BUN Creatinine Est GFR (CKD-EPI)AfAm Est GFR (CKD-EPI)NonAf POC Glucometer 231 138 Random Glucose Calcium 01/13/19 01/13/19 01/13/19 06:42 11:27 16:09 WBC RBC Hgb Hct MCV MCH MCHC RDW Plt Count MPV Absolute Neuts (auto) Neutrophils % Lymphocytes % Monocytes % Eosinophils % Basophils % Nucleated RBC % Sodium 142 Potassium 4.1 Chloride 109 H Carbon Dioxide 22 Anion Gap 11 BUN 32.3 H Creatinine 1.2 Est GFR (CKD-EPI)AfAm 67.67 Est GFR (CKD-EPI)NonAf 58.39 POC Glucometer 238 248 Random Glucose 124 H Calcium 8.8 Active Medications Generic Name Dose Route Start Last Admin Trade Name Freq PRN Reason Stop Dose Admin Acetaminophen 650 mg 01/11/19 09:36 01/13/19 13:41 Tylenol Oral Solution - PO 650 mg Q6H PRN Administration PAIN Albuterol/Ipratropium 1 amp 01/11/19 09:38 01/12/19 16:57 Duoneb - NEB 1 amp Q6H PRN Administration SHORTNESS OF BREATH Carvedilol 3.125 mg 01/11/19 10:00 01/13/19 09:19 Coreg - PO 3.125 mg BID [facility] Administration Clopidogrel Bisulfate 75 mg 01/12/19 11:00 01/13/19 09:18 Plavix - PO 75 mg DAILY [facility] Administration Colchicine 0.6 mg 01/11/19 10:00 01/13/19 09:18 Colcrys PO 0.6 mg DAILY [facility] Administration Docusate Sodium 100 mg 01/11/19 14:00 01/13/19 13:43 Colace - PO 100 mg TID [facility] Administration Ferrous Sulfate 325 mg 01/11/19 10:00 01/13/19 09:19 Feosol - PO 325 mg DAILY [facility] Administration Heparin Sodium (Porcine) 5,000 unit 01/10/19 23:00 01/13/19 13:43 Heparin - SQ 5,000 unit TID [facility] Administration Insulin Aspart 1 vial 01/11/19 07:00 01/13/19 11:58 Novolog Vial Sliding Scale - SQ 4 units ACHS [facility] Administration Protocol Insulin Detemir 10 units 01/11/19 22:00 01/12/19 21:32 Levemir Vial SQ 10 units HS [facility] Administration Melatonin 10 mg 01/11/19 22:00 01/12/19 21:32 Melatonin PO 10 mg HS [facility] Administration Polyethylene Glycol 17 gm 01/12/19 16:00 01/13/19 09:19 Miralax (For Daily Use) - PO 17 gm DAILY [facility] Administration Rosuvastatin Calcium 20 mg 01/11/19 22:00 01/12/19 21:32 Crestor - PO 20 mg HS [facility] Administration Sacubitril/Valsartan 1 tab 01/12/19 22:00 01/13/19 09:19 Entresto 24 Mg-26 Mg Tablet PO 1 tab BID [facility] Administration Senna 2 tab 01/12/19 22:00 01/12/19 21:32 Senna - PO 2 tab HS [facility] Administration Tamsulosin HCl 0.4 mg 01/11/19 08:30 01/13/19 09:18 Flomax - PO 0.4 mg DAILY@0830 [facility] Administration ASSESSMENT/PLAN: This is a 78 year old male with PMH significant for CAD, ICD placement, CHF, DM , COPD, frequent UTIs, and frequent falls who presented to ED with fall to his right. 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 Noted to have cyst and atrophic R kidney - Nephro consulted. F/u recs - Holding Lasix - avoid NSAIDs -d/c fluid #Low MCV - MCV 77.9, Hct 35.6 (borderline normal) - Fe & TIBC low - FOBT serial ordered to check for blood loss #Hx of DM - Novolog SS started #FEN - Na controlled diet #DVT PE - Heparin 5000 SQ (avoid Lovenox due to APRYL) Visit type - Emergency Visit Emergency Visit: No - New Patient This patient is new to me today: No - Critical Care Critical Care patient: No ATTENDING PHYSICIAN STATEMENT I saw and evaluated the patient. I reviewed the resident's note and discussed the case with the resident. I agree with the resident's findings and plan as documented. SUBJECTIVE: OBJECTIVE: ASSESSMENT AND PLAN:
[2019-01-13] MEDS: MELATONIN 5 MG TABLETS PO SCH (21:38)
[2019-01-13] MEDS: ROSUVASTATIN CA 20 MG TABLET (FP) PO SCH (21:38)
[2019-01-13] MEDS: SENNOSIDES 8.6MG TABLET (FP) PO SCH (21:38)
[2019-01-13] MEDS: INSULIN (LEVEMIR) 100 UNITS/ML UNITS SQ SCH (21:39)
[2019-01-14] MEDS: DOCUSATE SODIUM 100 MG CAPSULE (FP) PO SCH ×3 (05:57→21:10)
[2019-01-14] MEDS: HEPARIN NA (PORCINE) 5,000 UNITS/ML 1ML VIAL SQ SCH ×3 (05:57→21:10)
[2019-01-14] MEDS: INSULIN SLIDING SCALE (NOVOLOG) 1 VIAL SQ SCH ×4 (06:38→21:21)
[2019-01-14 07:54] LABS: HEMATOCRIT 30.9 % (35.4-49); HEMOGLOBIN 10.5 GM/dL (11.7-16.9); MCH 26.4 pg (25.7-33.7); MCHC 34.1 g/dl (32.0-35.9); MEAN CELL VOLUME 77.4 fl (80-96); MEAN PLT VOLUME 8.3 fl (7.5-11.1); PLATELET COUNT 129 K/MM3 (134-434); RDW 19.1 % (11.9-15.9); WHITE BLOOD COUNT 4.8 K/mm3 (4.0-10.0)
[2019-01-14 08:20] LABS: BLOOD UREA NITROGEN 29.3 mg/dL (7-18); CALCIUM 9.2 mg/dL (8.5-10.1); CREATININE 1.2 mg/dL (0.55-1.3); POTASSIUM 4.2 mmol/L (3.5-5.1)
[2019-01-14] MEDS: TAMSULOSIN HCL 0.4 MG CAP PO SCH (08:31)
--- NOTE | 2019-01-14 09:11 | PN ---
Progress Note, Physician Chief Complaint: Events noted Not in distress History of Present Illness: Patient was seen and examined. Awake and alert. Chart was reviewed Denies chest pain, SOB or palpitations - Current Medication List Current Medications: Active Medications Acetaminophen (Tylenol Oral Solution -) 650 mg PO Q6H PRN PRN Reason: PAIN Last Admin: 01/13/19 21:11 Dose: 650 mg Albuterol/Ipratropium (Duoneb -) 1 amp NEB Q6H PRN PRN Reason: SHORTNESS OF BREATH Last Admin: 01/12/19 16:57 Dose: 1 amp Carvedilol (Coreg -) 3.125 mg PO BID [facility] Last Admin: 01/13/19 21:38 Dose: 3.125 mg Clopidogrel Bisulfate (Plavix -) 75 mg PO DAILY [facility] Last Admin: 01/13/19 09:18 Dose: 75 mg Colchicine (Colcrys) 0.6 mg PO DAILY [facility] Last Admin: 01/13/19 09:18 Dose: 0.6 mg Docusate Sodium (Colace -) 100 mg PO TID [facility] Last Admin: 01/14/19 05:57 Dose: 100 mg Ferrous Sulfate (Feosol -) 325 mg PO DAILY [facility] Last Admin: 01/13/19 09:19 Dose: 325 mg Heparin Sodium (Porcine) (Heparin -) 5,000 unit SQ TID [facility] Last Admin: 01/14/19 05:57 Dose: 5,000 unit Insulin Aspart (Novolog Vial Sliding Scale -) 1 vial SQ [facility]; Protocol Last Admin: 01/14/19 06:38 Dose: 2 units Insulin Detemir (Levemir Vial) 10 units SQ [facility] Last Admin: 01/13/19 21:39 Dose: 10 units Melatonin (Melatonin) 10 mg PO [facility] Last Admin: 01/13/19 21:38 Dose: 10 mg Midodrine (Proamatine -) 2.5 mg PO BID-MID [facility] Polyethylene Glycol (Miralax (For Daily Use) -) 17 gm PO DAILY [facility] Last Admin: 01/13/19 09:19 Dose: 17 gm Rosuvastatin Calcium (Crestor -) 20 mg PO [facility] Last Admin: 01/13/19 21:38 Dose: 20 mg Sacubitril/Valsartan (Entresto 24 Mg-26 Mg Tablet) 1 tab PO BID [facility] Last Admin: 01/13/19 21:38 Dose: 1 tab Senna (Senna -) 2 tab PO HS [facility] Last Admin: 01/13/19 21:38 Dose: 2 tab Tamsulosin HCl (Flomax -) 0.4 mg PO DAILY@0830 [facility] Last Admin: 01/14/19 08:31 Dose: 0.4 mg - Objective Vital Signs: Vital Signs Temperature 98.2 F 01/14/19 06:00 Pulse Rate 76 01/14/19 08:32 Respiratory Rate 18 01/14/19 06:00 Blood Pressure 94/48 L 01/14/19 08:32 O2 Sat by Pulse Oximetry (%) 98 01/13/19 21:00 Eyes: Yes: PERRL HENT: Yes: Atraumatic Neck: Yes: Supple Cardiovascular: Yes: Regular Rate and Rhythm, Murmur (Soft SM), S1, S2 Respiratory: Yes: CTA Bilaterally Gastrointestinal: Yes: Normal Bowel Sounds, Soft. No: Tenderness Edema: No Additional Findings/Remarks: - Review of Systems Constitutional: denies: Chills, Fever Cardiovascular: denies: Chest Pain, Palpitations, Shortness of Breath Respiratory: denies: Cough, Hemoptysis, Orthopnea, PND, SOB, SOB on Exertion Gastrointestinal: denies: Abdominal Pain, Constipation, Diarrhea, Melena, Nausea , Rectal Bleeding, Vomiting Genitourinary: denies: Dysuria, Hematuria Musculoskeletal: denies: Back Pain Neurological: denies: Dizziness, Headache, Seizure, Syncope Labs: CBC, BMP 01/14/19 06:10 01/14/19 06:10 Problem List - Problems (1) Recurrent falls Code(s): R29.6 - REPEATED FALLS (2) Urinary tract infection Code(s): N39.0 - URINARY TRACT INFECTION, SITE NOT SPECIFIED (3) Acute on chronic diastolic CHF (congestive heart failure) Code(s): I50.33 - ACUTE ON CHRONIC DIASTOLIC (CONGESTIVE) HEART FAILURE (4) Acute on chronic renal insufficiency Code(s): N28.9 - DISORDER OF KIDNEY AND URETER, UNSPECIFIED; N18.9 - CHRONIC KIDNEY DISEASE, UNSPECIFIED (5) Anemia Code(s): D64.9 - ANEMIA, UNSPECIFIED Qualifiers: Anemia type: due to chronic kidney disease Chronic kidney disease stage: stage 3 (moderate) Qualified Code(s): N18.3 - Chronic kidney disease, stage 3 (moderate); D63.1 - Anemia in chronic kidney disease; D63.1 - Anemia in chronic kidney disease (6) CAD (coronary artery disease) Code(s): I25.10 - ATHSCL HEART DISEASE OF [place] CORONARY ARTERY W/O ANG PCTRS Qualifiers: Coronary Disease-Associated Artery/Lesion type: [place] artery [place] vs. transplanted heart: [place] heart Associated angina: without angina Qualified Code(s): I25.10 - Atherosclerotic heart disease of [place] coronary artery without angina pectoris (7) CKD (chronic kidney disease) Code(s): N18.9 - CHRONIC KIDNEY DISEASE, UNSPECIFIED Qualifiers: Chronic kidney disease stage: stage 3 (moderate) Qualified Code(s): N18.3 - Chronic kidney disease, stage 3 (moderate) (8) COPD (chronic obstructive pulmonary disease) Code(s): J44.9 - CHRONIC OBSTRUCTIVE PULMONARY DISEASE, UNSPECIFIED Qualifiers: (9) Generalized weakness Code(s): R53.1 - WEAKNESS (10) History of percutaneous coronary intervention Code(s): Z98.890 - OTHER SPECIFIED POSTPROCEDURAL STATES (11) Hx of CABG Code(s): Z95.1 - PRESENCE OF AORTOCORONARY BYPASS GRAFT (12) Hyperlipidemia Code(s): E78.5 - HYPERLIPIDEMIA, UNSPECIFIED Qualifiers: Hyperlipidemia type: pure hypercholesterolemia Qualified Code(s): E78.00 - Pure hypercholesterolemia, unspecified; E78.0 - Pure hypercholesterolemia (13) Hypertension Code(s): I10 - ESSENTIAL (PRIMARY) HYPERTENSION Qualifiers: Hypertension type: essential hypertension Qualified Code(s): I10 - Essential (primary) hypertension (14) ICD (implantable cardioverter-defibrillator) in place Code(s): Z95.810 - PRESENCE OF AUTOMATIC (IMPLANTABLE) CARDIAC DEFIBRILLATOR (15) NYHA class 2 acute on chronic systolic heart failure Code(s): I50.23 - ACUTE ON CHRONIC SYSTOLIC (CONGESTIVE) HEART FAILURE (16) PVD (peripheral vascular disease) Code(s): I73.9 - PERIPHERAL VASCULAR DISEASE, UNSPECIFIED (17) Pulmonary HTN Code(s): I27.20 - PULMONARY HYPERTENSION, UNSPECIFIED (18) Type 2 diabetes mellitus Code(s): E11.9 - TYPE 2 DIABETES MELLITUS WITHOUT COMPLICATIONS Qualifiers: Assessment/Plan 1. Multiple mechanical falls with right lower extremity weakness 2. LV systolic dysfunction class 2 NYHA classification heart failure, compensated/euvolemic 3. CAD s/p CABG, angina pectoris 4. HTN 5. Hypercholesterolemia 6. DM 7. CKD 8. ? UTI PLAN: 1. Continue present cardiac medications 2. Etiology of falls to be evaluated and fall precaution 3. Antibiotic coverage 4. Monitor renal function 5. Currently not othostatic Further plans are to follow Jayy Morales MD
[2019-01-14] MEDS: CARVEDILOL 3.125 MG TABLET (FP) PO SCH ×2 (09:57→21:09)
[2019-01-14] MEDS: CLOPIDOGREL BISULFATE 75 MG TABLET (FP) PO SCH (09:57)
[2019-01-14] MEDS: COLCHICINE 0.6 MG CAP PO SCH (09:57)
[2019-01-14] MEDS: SACUBITRIL/VALSARTAN 24 MG-26 MG TABLET PO SCH ×2 (09:58→21:15)
[2019-01-14] MEDS: FERROUS SO4 325 MG TABLET (FP) PO SCH (09:58)
[2019-01-14] MEDS: POLYETHYLENE GLYCOL 3350 119 GM BTL PO SCH (09:58)
[2019-01-14] MEDS ORDERED: MIDODRINE HCL 2.5 MG TABLET PO SCH (10:00)
--- NOTE | 2019-01-14 10:14 | PN ---
Progress Note (short form) - Note Progress Note: 78 year old male history of CAD,CHF,ICD placement, COPD,DM. Bing presented with recurrent falls over last few months. He has total of 7 fall. He denies any feeling dizzy, spinning of dysbalance feeling before fall. He would suddenly fall, and he describes as possible very brief LOC. Patient would regain consiousnesss very quicky , there is no seizure or incontinence . Patient also been feeling right hip pain following fall. He also been diagnosed with gout recently. patient is feeling better, afraid to walk . He still have right hip pain, and it is better. his carotid ultrasound unremarkable. 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 1.Multiple fall, he describes there is no aura and along wtih very brief LOC. Neurological exam is noraml. 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 Most likley these episodes are syncope. there is no motor weakness identified. Plan: no further recommendation from neuro point of view Thanking you so much Cornelius Powell MD
[2019-01-14] MEDS: MIDODRINE HCL 2.5 MG TABLET PO SCH ×3 (11:36→17:55)
--- NOTE | 2019-01-14 12:45 | PN ---
Progress Note, Physician History of Present Illness: stable no new issues - Current Medication List Current Medications: Active Medications Acetaminophen (Tylenol Oral Solution -) 650 mg PO Q6H PRN PRN Reason: PAIN Last Admin: 01/13/19 21:11 Dose: 650 mg Albuterol/Ipratropium (Duoneb -) 1 amp NEB Q6H PRN PRN Reason: SHORTNESS OF BREATH Last Admin: 01/12/19 16:57 Dose: 1 amp Carvedilol (Coreg -) 3.125 mg PO BID [facility] Last Admin: 01/14/19 09:57 Dose: 3.125 mg Clopidogrel Bisulfate (Plavix -) 75 mg PO DAILY [facility] Last Admin: 01/14/19 09:57 Dose: 75 mg Colchicine (Colcrys) 0.6 mg PO DAILY [facility] Last Admin: 01/14/19 09:57 Dose: 0.6 mg Docusate Sodium (Colace -) 100 mg PO TID [facility] Last Admin: 01/14/19 05:57 Dose: 100 mg Ferrous Sulfate (Feosol -) 325 mg PO DAILY [facility] Last Admin: 01/14/19 09:58 Dose: 325 mg Heparin Sodium (Porcine) (Heparin -) 5,000 unit SQ TID [facility] Last Admin: 01/14/19 05:57 Dose: 5,000 unit Insulin Aspart (Novolog Vial Sliding Scale -) 1 vial SQ [facility]; Protocol Last Admin: 01/14/19 11:29 Dose: 2 units Insulin Detemir (Levemir Vial) 10 units SQ [facility] Last Admin: 01/13/19 21:39 Dose: 10 units Melatonin (Melatonin) 10 mg PO [facility] Last Admin: 01/13/19 21:38 Dose: 10 mg Midodrine (Proamatine -) 2.5 mg PO TID-MID [facility] Last Admin: 01/14/19 11:36 Dose: Not Given Polyethylene Glycol (Miralax (For Daily Use) -) 17 gm PO DAILY [facility] Last Admin: 01/14/19 09:58 Dose: 17 gm Rosuvastatin Calcium (Crestor -) 20 mg PO [facility] Last Admin: 01/13/19 21:38 Dose: 20 mg Sacubitril/Valsartan (Entresto 24 Mg-26 Mg Tablet) 1 tab PO BID [facility] Last Admin: 09/06/19 09:58 Dose: 1 tab Senna (Senna -) 2 tab PO HS [facility] Last Admin: 01/13/19 21:38 Dose: 2 tab Tamsulosin HCl (Flomax -) 0.4 mg PO DAILY@0830 [facility] Last Admin: 01/14/19 08:31 Dose: 0.4 mg - Objective Vital Signs: Vital Signs Temperature 98.2 F 01/14/19 06:00 Pulse Rate 76 01/14/19 08:32 Respiratory Rate 18 01/14/19 06:00 Blood Pressure 94/48 L 01/14/19 08:32 O2 Sat by Pulse Oximetry (%) 98 01/13/19 21:00 Constitutional: Yes: No Distress, Calm Cardiovascular: Yes: S1, S2 Respiratory: Yes: Regular, CTA Bilaterally Gastrointestinal: Yes: Normal Bowel Sounds, Soft Musculoskeletal: Yes: WNL Extremities: Yes: WNL Neurological: Yes: Alert, Oriented Psychiatric: Yes: Alert, Oriented Labs: CBC, BMP 01/14/19 06:10 01/14/19 06:10 Assessment/Plan 78 year old male with PMH significant for CAD, ICD placement, CHF, DM, COPD, frequent UTIs, and frequent falls who presented to ED with fall to his right. Falls Frequent UTIs APRYL DM 1. CKD 2. dehydration 3. PVD 4. HLD 5. UTI 6. atrophic right kidney plan continue current mgmt rest as per the team
--- NOTE | 2019-01-14 13:19 | PN ---
Progress Note, Physician History of Present Illness: Pt seen and examined at bedside. He is awake and alert. He denies shortness of breath. - Current Medication List Current Medications: Active Medications Acetaminophen (Tylenol Oral Solution -) 650 mg PO Q6H PRN PRN Reason: PAIN Last Admin: 01/13/19 21:11 Dose: 650 mg Albuterol/Ipratropium (Duoneb -) 1 amp NEB Q6H PRN PRN Reason: SHORTNESS OF BREATH Last Admin: 01/12/19 16:57 Dose: 1 amp Carvedilol (Coreg -) 3.125 mg PO BID [facility] Last Admin: 01/14/19 09:57 Dose: 3.125 mg Clopidogrel Bisulfate (Plavix -) 75 mg PO DAILY [facility] Last Admin: 01/14/19 09:57 Dose: 75 mg Colchicine (Colcrys) 0.6 mg PO DAILY [facility] Last Admin: 01/14/19 09:57 Dose: 0.6 mg Docusate Sodium (Colace -) 100 mg PO TID [facility] Last Admin: 01/14/19 05:57 Dose: 100 mg Ferrous Sulfate (Feosol -) 325 mg PO DAILY [facility] Last Admin: 01/14/19 09:58 Dose: 325 mg Heparin Sodium (Porcine) (Heparin -) 5,000 unit SQ TID [facility] Last Admin: 01/14/19 05:57 Dose: 5,000 unit Insulin Aspart (Novolog Vial Sliding Scale -) 1 vial SQ [facility]; Protocol Last Admin: 01/14/19 11:29 Dose: 2 units Insulin Detemir (Levemir Vial) 10 units SQ [facility] Last Admin: 01/13/19 21:39 Dose: 10 units Melatonin (Melatonin) 10 mg PO [facility] Last Admin: 01/13/19 21:38 Dose: 10 mg Midodrine (Proamatine -) 2.5 mg PO TID-MID [facility] Last Admin: 01/14/19 11:36 Dose: Not Given Polyethylene Glycol (Miralax (For Daily Use) -) 17 gm PO DAILY [facility] Last Admin: 01/14/19 09:58 Dose: 17 gm Rosuvastatin Calcium (Crestor -) 20 mg PO [facility] Last Admin: 01/13/19 21:38 Dose: 20 mg Sacubitril/Valsartan (Entresto 24 Mg-26 Mg Tablet) 1 tab PO BID [facility] Last Admin: 01/14/19 09:58 Dose: 1 tab Senna (Senna -) 2 tab PO HS [facility] Last Admin: 01/13/19 21:38 Dose: 2 tab Tamsulosin HCl (Flomax -) 0.4 mg PO DAILY@0830 [facility] Last Admin: 01/14/19 08:31 Dose: 0.4 mg - Objective Vital Signs: Vital Signs Temperature 98.2 F 01/14/19 06:00 Pulse Rate 76 01/14/19 08:32 Respiratory Rate 18 01/14/19 06:00 Blood Pressure 94/48 L 01/14/19 08:32 O2 Sat by Pulse Oximetry (%) 98 01/13/19 21:00 Constitutional: Yes: Calm Cardiovascular: Yes: S1, S2 Respiratory: Yes: CTA Bilaterally Gastrointestinal: Yes: Normal Bowel Sounds, Soft Genitourinary: Yes: WNL Musculoskeletal: Yes: WNL Edema: No Integumentary: Yes: WNL Neurological: Yes: Oriented Psychiatric: Yes: Oriented Labs: CBC, BMP 01/14/19 06:10 01/14/19 06:10 Problem List - Problems (1) Recurrent falls Code(s): R29.6 - REPEATED FALLS (2) Urinary tract infection Code(s): N39.0 - URINARY TRACT INFECTION, SITE NOT SPECIFIED Assessment/Plan Current Medications Generic Name Dose Route Start Last Admin Trade Name Freq PRN Reason Stop Dose Admin Acetaminophen 650 mg 01/11/19 09:36 01/13/19 21:11 Tylenol Oral Solution - PO 650 mg Q6H PRN Administration PAIN Albuterol/Ipratropium 1 amp 01/11/19 09:38 01/12/19 16:57 Duoneb - NEB 1 amp Q6H PRN Administration SHORTNESS OF BREATH Carvedilol 3.125 mg 01/11/19 10:00 01/14/19 09:57 Coreg - PO 3.125 mg BID [facility] Administration Clopidogrel Bisulfate 75 mg 01/12/19 11:00 01/14/19 09:57 Plavix - PO 75 mg DAILY [facility] Administration Colchicine 0.6 mg 01/11/19 10:00 01/14/19 09:57 Colcrys PO 0.6 mg DAILY [facility] Administration Docusate Sodium 100 mg 01/11/19 14:00 01/14/19 05:57 Colace - PO 100 mg TID [facility] Administration Ferrous Sulfate 325 mg 01/11/19 10:00 01/14/19 09:58 Feosol - PO 325 mg DAILY [facility] Administration Heparin Sodium (Porcine) 5,000 unit 01/10/19 23:00 01/14/19 05:57 Heparin - SQ 5,000 unit TID [facility] Administration Insulin Aspart 1 vial 01/11/19 07:00 01/14/19 11:29 Novolog Vial Sliding Scale - SQ 2 units ACHS [facility] Administration Protocol Insulin Detemir 10 units 01/11/19 22:00 01/13/19 21:39 Levemir Vial SQ 10 units HS [facility] Administration Melatonin 10 mg 01/11/19 22:00 01/13/19 21:38 Melatonin PO 10 mg HS [facility] Administration Midodrine 2.5 mg 01/14/19 10:45 01/14/19 11:36 Proamatine - PO Not Given TID-MID [facility] Polyethylene Glycol 17 gm 01/12/19 16:00 01/14/19 09:58 Miralax (For Daily Use) - PO 17 gm DAILY [facility] Administration Rosuvastatin Calcium 20 mg 01/11/19 22:00 01/13/19 21:38 Crestor - PO 20 mg HS [facility] Administration Sacubitril/Valsartan 1 tab 01/12/19 22:00 01/14/19 09:58 Entresto 24 Mg-26 Mg Tablet PO 1 tab BID [facility] Administration Senna 2 tab 01/12/19 22:00 01/13/19 21:38 Senna - PO 2 tab HS [facility] Administration Tamsulosin HCl 0.4 mg 01/11/19 08:30 01/14/19 08:31 Flomax - PO 0.4 mg DAILY@0830 [facility] Administration Impression 1. CKD 2. dehydration 3. PVD 4. HLD 5. UTI 6. atrophic right kidney Plan - renal function is stable - can see pt in office - he is stable off of fluids - will follow PRN
[2019-01-14] MEDS ORDERED: PT OWN MED DRAWER 7, Y5N ONE ×4 (13:32→21:13)
--- NOTE | 2019-01-14 14:33 | PN ---
Progress Note, PRODUCER ASSISTANT - Note Progress Note: Selected Entries 01/13/19 01/13/19 01/13/19 06:00 10:00 10:56 Breakfast 75% Lunch 100% Supper 75% Temperature 98.1 F 97.9 F 01/13/19 01/13/19 01/13/19 14:34 18:00 22:00 Breakfast Lunch 100% Supper Temperature 98.2 F 98.6 F 98.3 F 01/14/19 01/14/19 06:00 10:51 Breakfast 100% Lunch Supper Temperature 98.2 F Laboratory Tests 01/14/19 06:10 WBC 4.8 CADDY said he did eat well yesterday but expectorated after eating yesterday. Pt on Dys whole diet/thin liquids. Tolerating diet better per CADDY with no expectoration today.
--- NOTE | 2019-01-14 18:27 | PN ---
Physical Exam: SUBJECTIVE: Patient seen and examined at bedside. No acute events. Pt still dizzy. Still resistant to rehab. OBJECTIVE: Vital Signs Period Temp Pulse Resp BP Sys/Garcia Pulse Ox Last 24 Hr 98.2 F-98.3 F 62-77 16-20 94-147/44-69 98-98 Gen: AAOx3, NAD HEENT: NCAT, EOMI Neck: supple, no jvd, trachea central Cardio: rrr, normal s1s2, no mrg noted Pulm: cta b/l Abd: soft, nontender, nondistended Ext: no edema, 1+ pulses Laboratory Results - last 24 hr 01/13/19 01/14/19 01/14/19 21:36 05:55 06:10 WBC RBC Hgb Hct MCV MCH MCHC RDW Plt Count MPV Sodium 140 Potassium 4.2 Chloride 110 H Carbon Dioxide 22 Anion Gap 8 BUN 29.3 H Creatinine 1.2 Est GFR (CKD-EPI)AfAm 67.67 Est GFR (CKD-EPI)NonAf 58.39 POC Glucometer 325 160 Random Glucose 148 H Calcium 9.2 01/14/19 01/14/19 01/14/19 06:10 11:23 16:04 WBC 4.8 RBC 4.00 Hgb 10.5 L Hct 30.9 L MCV 77.4 L MCH 26.4 MCHC 34.1 RDW 19.1 H Plt Count 129 L MPV 8.3 Sodium Potassium Chloride Carbon Dioxide Anion Gap BUN Creatinine Est GFR (CKD-EPI)AfAm Est GFR (CKD-EPI)NonAf POC Glucometer 189 229 Random Glucose Calcium Active Medications Generic Name Dose Route Start Last Admin Trade Name Freq PRN Reason Stop Dose Admin Acetaminophen 650 mg 01/11/19 09:36 01/13/19 21:11 Tylenol Oral Solution - PO 650 mg Q6H PRN Administration PAIN Albuterol/Ipratropium 1 amp 01/11/19 09:38 01/12/19 16:57 Duoneb - NEB 1 amp Q6H PRN Administration SHORTNESS OF BREATH Carvedilol 3.125 mg 01/11/19 10:00 01/14/19 09:57 Coreg - PO 3.125 mg BID [facility] Administration Clopidogrel Bisulfate 75 mg 01/12/19 11:00 01/14/19 09:57 Plavix - PO 75 mg DAILY [facility] Administration Colchicine 0.6 mg 01/11/19 10:00 01/14/19 09:57 Colcrys PO 0.6 mg DAILY [facility] Administration Docusate Sodium 100 mg 01/11/19 14:00 01/14/19 13:36 Colace - PO 100 mg TID [facility] Administration Ferrous Sulfate 325 mg 01/11/19 10:00 01/14/19 09:58 Feosol - PO 325 mg DAILY [facility] Administration Heparin Sodium (Porcine) 5,000 unit 01/10/19 23:00 01/14/19 13:36 Heparin - SQ 5,000 unit TID [facility] Administration Insulin Aspart 1 vial 01/11/19 07:00 01/14/19 16:09 Novolog Vial Sliding Scale - SQ 4 units ACHS [facility] Administration Protocol Insulin Detemir 10 units 01/11/19 22:00 01/13/19 21:39 Levemir Vial SQ 10 units HS [facility] Administration Melatonin 10 mg 01/11/19 22:00 01/13/19 21:38 Melatonin PO 10 mg HS [facility] Administration Midodrine 2.5 mg 01/14/19 10:45 01/14/19 17:55 Proamatine - PO 2.5 mg TID-MID [facility] Administration Polyethylene Glycol 17 gm 01/12/19 16:00 01/14/19 09:58 Miralax (For Daily Use) - PO 17 gm DAILY [facility] Administration Rosuvastatin Calcium 20 mg 01/11/19 22:00 01/13/19 21:38 Crestor - PO 20 mg HS [facility] Administration Sacubitril/Valsartan 1 tab 01/12/19 22:00 01/14/19 09:58 Entresto 24 Mg-26 Mg Tablet PO 1 tab BID [facility] Administration Senna 2 tab 01/12/19 22:00 01/13/19 21:38 Senna - PO 2 tab HS [facility] Administration Tamsulosin HCl 0.4 mg 01/11/19 08:30 01/14/19 08:31 Flomax - PO 0.4 mg DAILY@0830 [facility] Administration ASSESSMENT/PLAN: This is a 78 year old male with PMH significant for CAD, ICD placement, CHF, DM , COPD, frequent UTIs, and frequent falls who presented to ED with fall to his right. 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 Noted to have cyst and atrophic R kidney - Nephro consulted. F/u recs - Holding Lasix - avoid NSAIDs -d/c fluid #Low MCV - MCV 77.9, Hct 35.6 (borderline normal) - Fe & TIBC low - FOBT serial ordered to check for blood loss #Hx of DM - Novolog SS started #FEN - Na controlled diet #DVT PE - Heparin 5000 SQ (avoid Lovenox due to APRYL) Visit type - Emergency Visit Emergency Visit: No - New Patient This patient is new to me today: No - Critical Care Critical Care patient: No ATTENDING PHYSICIAN STATEMENT I saw and evaluated the patient. I reviewed the resident's note and discussed the case with the resident. I agree with the resident's findings and plan as documented. SUBJECTIVE: OBJECTIVE: ASSESSMENT AND PLAN:
[2019-01-14] MEDS: ROSUVASTATIN CA 20 MG TABLET (FP) PO SCH (21:09)
[2019-01-14] MEDS: MELATONIN 5 MG TABLETS PO SCH (21:09)
[2019-01-14] MEDS: SENNOSIDES 8.6MG TABLET (FP) PO SCH (21:10)
[2019-01-14] MEDS: ACETAMINOPHEN 650 MG/20.3 ML ORAL SOLUTION (CUPS) PO PRN (21:15)
[2019-01-14] MEDS: INSULIN (LEVEMIR) 100 UNITS/ML UNITS SQ SCH (21:22)
[2019-01-15] MEDS: DOCUSATE SODIUM 100 MG CAPSULE (FP) PO SCH ×2 (06:24→14:45)
[2019-01-15] MEDS: INSULIN SLIDING SCALE (NOVOLOG) 1 VIAL SQ SCH ×3 (06:24→16:50)
[2019-01-15] MEDS: HEPARIN NA (PORCINE) 5,000 UNITS/ML 1ML VIAL SQ SCH ×2 (06:24→14:45)
[2019-01-15] MEDS: COLCHICINE 0.6 MG CAP PO SCH (09:26)
[2019-01-15] MEDS: FERROUS SO4 325 MG TABLET (FP) PO SCH (09:26)
[2019-01-15] MEDS: SACUBITRIL/VALSARTAN 24 MG-26 MG TABLET PO SCH (09:27)
[2019-01-15] MEDS: CLOPIDOGREL BISULFATE 75 MG TABLET (FP) PO SCH (09:27)
[2019-01-15] MEDS: CARVEDILOL 3.125 MG TABLET (FP) PO SCH (09:27)
[2019-01-15] MEDS: TAMSULOSIN HCL 0.4 MG CAP PO SCH (09:27)
[2019-01-15] MEDS: MIDODRINE HCL 2.5 MG TABLET PO SCH ×3 (09:28→18:16)
[2019-01-15] MEDS: POLYETHYLENE GLYCOL 3350 119 GM BTL PO SCH (09:34)
--- NOTE | 2019-01-15 10:33 | PN ---
Progress Note, Physician - Current Medication List Current Medications: Active Medications Acetaminophen (Tylenol Oral Solution -) 650 mg PO Q6H PRN PRN Reason: PAIN Last Admin: 01/14/19 21:15 Dose: 650 mg Albuterol/Ipratropium (Duoneb -) 1 amp NEB Q6H PRN PRN Reason: SHORTNESS OF BREATH Last Admin: 01/12/19 16:57 Dose: 1 amp Carvedilol (Coreg -) 3.125 mg PO BID [facility] Last Admin: 01/15/19 09:27 Dose: 3.125 mg Clopidogrel Bisulfate (Plavix -) 75 mg PO DAILY [facility] Last Admin: 01/15/19 09:27 Dose: 75 mg Colchicine (Colcrys) 0.6 mg PO DAILY [facility] Last Admin: 01/15/19 09:26 Dose: 0.6 mg Docusate Sodium (Colace -) 100 mg PO TID [facility] Last Admin: 01/15/19 06:24 Dose: Not Given Ferrous Sulfate (Feosol -) 325 mg PO DAILY [facility] Last Admin: 01/15/19 09:26 Dose: 325 mg Heparin Sodium (Porcine) (Heparin -) 5,000 unit SQ TID [facility] Last Admin: 01/15/19 06:24 Dose: 5,000 unit Insulin Aspart (Novolog Vial Sliding Scale -) 1 vial SQ [facility]; Protocol Last Admin: 01/15/19 06:24 Dose: 2 units Insulin Detemir (Levemir Vial) [address] [facility] Last Admin: 01/14/19 21:22 Dose: 10 units Melatonin (Melatonin) [address] [facility] Last Admin: 01/14/19 21:09 Dose: 10 mg Midodrine (Proamatine -) 2.5 mg PO TID-MID [facility] Last Admin: 01/15/19 09:28 Dose: 2.5 mg Polyethylene Glycol (Miralax (For Daily Use) -) 17 gm PO DAILY [facility] Last Admin: 01/15/19 09:34 Dose: Not Given Rosuvastatin Calcium (Crestor -) [address] [facility] Last Admin: 01/14/19 21:09 Dose: 20 mg Sacubitril/Valsartan (Entresto 24 Mg-26 Mg Tablet) 1 tab PO BID [facility] Last Admin: 01/15/19 09:27 Dose: 1 tab Senna (Senna -) 2 tab PO HS [facility] Last Admin: 01/14/19 21:10 Dose: Not Given Tamsulosin HCl (Flomax -) 0.4 mg PO DAILY@0830 [facility] Last Admin: 01/15/19 09:27 Dose: 0.4 mg - Objective Vital Signs: Vital Signs Temperature 98.0 F 01/15/19 09:20 Pulse Rate 78 01/15/19 09:20 Respiratory Rate 18 01/15/19 09:20 Blood Pressure 115/65 01/15/19 09:20 O2 Sat by Pulse Oximetry (%) 98 01/14/19 21:00 Labs: CBC, BMP 01/14/19 06:10 01/14/19 06:10
--- NOTE | 2019-01-15 11:32 | PN ---
Progress Note, Physician Chief Complaint: Events noted Not in distress History of Present Illness: Patient was seen and examined. Awake and alert. Chart was reviewed Denies chest pain, SOB or palpitations - Current Medication List Current Medications: Active Medications Acetaminophen (Tylenol Oral Solution -) 650 mg PO Q6H PRN PRN Reason: PAIN Last Admin: 01/14/19 21:15 Dose: 650 mg Albuterol/Ipratropium (Duoneb -) 1 amp NEB Q6H PRN PRN Reason: SHORTNESS OF BREATH Last Admin: 01/12/19 16:57 Dose: 1 amp Carvedilol (Coreg -) 3.125 mg PO BID [facility] Last Admin: 01/15/19 09:27 Dose: 3.125 mg Clopidogrel Bisulfate (Plavix -) 75 mg PO DAILY [facility] Last Admin: 01/15/19 09:27 Dose: 75 mg Colchicine (Colcrys) 0.6 mg PO DAILY [facility] Last Admin: 01/15/19 09:26 Dose: 0.6 mg Docusate Sodium (Colace -) 100 mg PO TID [facility] Last Admin: 01/15/19 06:24 Dose: Not Given Ferrous Sulfate (Feosol -) 325 mg PO DAILY [facility] Last Admin: 01/15/19 09:26 Dose: 325 mg Heparin Sodium (Porcine) (Heparin -) 5,000 unit SQ TID [facility] Last Admin: 01/15/19 06:24 Dose: 5,000 unit Insulin Aspart (Novolog Vial Sliding Scale -) 1 vial SQ [facility]; Protocol Last Admin: 01/15/19 06:24 Dose: 2 units Insulin Detemir (Levemir Vial) 10 units SQ [facility] Last Admin: 01/14/19 21:22 Dose: 10 units Melatonin (Melatonin) 10 mg PO [facility] Last Admin: 01/14/19 21:09 Dose: 10 mg Midodrine (Proamatine -) 2.5 mg PO TID-MID [facility] Last Admin: 01/15/19 09:28 Dose: 2.5 mg Polyethylene Glycol (Miralax (For Daily Use) -) 17 gm PO DAILY [facility] Last Admin: 01/15/19 09:34 Dose: Not Given Rosuvastatin Calcium (Crestor -) 20 mg PO [facility] Last Admin: 01/14/19 21:09 Dose: 20 mg Sacubitril/Valsartan (Entresto 24 Mg-26 Mg Tablet) 1 tab PO BID [facility] Last Admin: 01/15/19 09:27 Dose: 1 tab Senna (Senna -) 2 tab PO HS [facility] Last Admin: 01/14/19 21:10 Dose: Not Given Tamsulosin HCl (Flomax -) 0.4 mg PO DAILY@0830 [facility] Last Admin: 01/15/19 09:27 Dose: 0.4 mg - Objective Vital Signs: Vital Signs Temperature 98.0 F 01/15/19 09:20 Pulse Rate 78 01/15/19 09:20 Respiratory Rate 18 01/15/19 09:20 Blood Pressure 115/65 01/15/19 09:20 O2 Sat by Pulse Oximetry (%) 98 01/14/19 21:00 Eyes: Yes: PERRL HENT: Yes: Atraumatic Neck: Yes: Supple Cardiovascular: Yes: Regular Rate and Rhythm, Murmur (Soft SM), S1, S2 Respiratory: Yes: CTA Bilaterally Gastrointestinal: Yes: Normal Bowel Sounds, Soft. No: Tenderness Edema: No Additional Findings/Remarks: - Review of Systems Constitutional: denies: Chills, Fever Cardiovascular: denies: Chest Pain, Palpitations, Shortness of Breath Respiratory: denies: Cough, Hemoptysis, Orthopnea, PND, SOB, SOB on Exertion Gastrointestinal: denies: Abdominal Pain, Constipation, Diarrhea, Melena, Nausea , Rectal Bleeding, Vomiting Genitourinary: denies: Dysuria, Hematuria Musculoskeletal: denies: Back Pain Neurological: denies: Dizziness, Headache, Seizure, Syncope Labs: CBC, BMP 01/14/19 06:10 01/14/19 06:10 Problem List - Problems (1) Recurrent falls Code(s): R29.6 - REPEATED FALLS (2) Urinary tract infection Code(s): N39.0 - URINARY TRACT INFECTION, SITE NOT SPECIFIED (3) Acute on chronic diastolic CHF (congestive heart failure) Code(s): I50.33 - ACUTE ON CHRONIC DIASTOLIC (CONGESTIVE) HEART FAILURE (4) Acute on chronic renal insufficiency Code(s): N28.9 - DISORDER OF KIDNEY AND URETER, UNSPECIFIED; N18.9 - CHRONIC KIDNEY DISEASE, UNSPECIFIED (5) Anemia Code(s): D64.9 - ANEMIA, UNSPECIFIED Qualifiers: Anemia type: due to chronic kidney disease Chronic kidney disease stage: stage 3 (moderate) Qualified Code(s): N18.3 - Chronic kidney disease, stage 3 (moderate); D63.1 - Anemia in chronic kidney disease; D63.1 - Anemia in chronic kidney disease (6) CAD (coronary artery disease) Code(s): I25.10 - ATHSCL HEART DISEASE OF [place] CORONARY ARTERY W/O ANG PCTRS Qualifiers: Coronary Disease-Associated Artery/Lesion type: [place] artery [place] vs. transplanted heart: [place] heart Associated angina: without angina Qualified Code(s): I25.10 - Atherosclerotic heart disease of [place] coronary artery without angina pectoris (7) CKD (chronic kidney disease) Code(s): N18.9 - CHRONIC KIDNEY DISEASE, UNSPECIFIED Qualifiers: Chronic kidney disease stage: stage 3 (moderate) Qualified Code(s): N18.3 - Chronic kidney disease, stage 3 (moderate) (8) COPD (chronic obstructive pulmonary disease) Code(s): J44.9 - CHRONIC OBSTRUCTIVE PULMONARY DISEASE, UNSPECIFIED Qualifiers: (9) Generalized weakness Code(s): R53.1 - WEAKNESS (10) History of percutaneous coronary intervention Code(s): Z98.890 - OTHER SPECIFIED POSTPROCEDURAL STATES (11) Hx of CABG Code(s): Z95.1 - PRESENCE OF AORTOCORONARY BYPASS GRAFT (12) Hyperlipidemia Code(s): E78.5 - HYPERLIPIDEMIA, UNSPECIFIED Qualifiers: Hyperlipidemia type: pure hypercholesterolemia Qualified Code(s): E78.00 - Pure hypercholesterolemia, unspecified; E78.0 - Pure hypercholesterolemia (13) Hypertension Code(s): I10 - ESSENTIAL (PRIMARY) HYPERTENSION Qualifiers: Hypertension type: essential hypertension Qualified Code(s): I10 - Essential (primary) hypertension (14) ICD (implantable cardioverter-defibrillator) in place Code(s): Z95.810 - PRESENCE OF AUTOMATIC (IMPLANTABLE) CARDIAC DEFIBRILLATOR (15) NYHA class 2 acute on chronic systolic heart failure Code(s): I50.23 - ACUTE ON CHRONIC SYSTOLIC (CONGESTIVE) HEART FAILURE (16) PVD (peripheral vascular disease) Code(s): I73.9 - PERIPHERAL VASCULAR DISEASE, UNSPECIFIED (17) Pulmonary HTN Code(s): I27.20 - PULMONARY HYPERTENSION, UNSPECIFIED (18) Type 2 diabetes mellitus Code(s): E11.9 - TYPE 2 DIABETES MELLITUS WITHOUT COMPLICATIONS Qualifiers: Assessment/Plan 1. Multiple mechanical falls with right lower extremity weakness 2. LV systolic dysfunction class 2 NYHA classification heart failure, compensated/euvolemic 3. CAD s/p CABG, angina pectoris 4. HTN 5. Hypercholesterolemia 6. DM 7. CKD 8. ? UTI PLAN: 1. Continue present cardiac medications 2. Etiology of falls to be evaluated and fall precaution 3. Antibiotic coverage 4. Monitor renal function 5. Ambulate Further plans are to follow Jayy Morales MD
[2019-01-15] MEDS ORDERED: PT OWN MED DRAWER 7, Y5N ONE ×2 (14:41→17:21)
--- NOTE | 2019-01-15 18:02 | DS ---
Physical Exam: SUBJECTIVE: Patient seen and examined; no new complaints. Denies dysuria, was not orthostatic and dizzy symptoms improved. Noted PT evals form inpatient and discussed this with patient and at length during hosptialization. Declined SNF but agreeable to home PT. Will be set up through [facility]. He is stable for discharge. As he has refused SNF he may be discharged home with PT. 10 sys ROS done and negative aside from HPI Home Medications Medication Instructions Recorded Bimatoprost [Lumigan] 1 drop IO DAILY 12/08/18 Budesonide/Formeterol Fumarate 16 inh PO BID 12/08/18 [SYMBICORT 160/4.5mcg -] Carvedilol 3.125 mg PO BID 12/08/18 Clopidogrel Bisulfate [Plavix] 75 mg PO DAILY 12/08/18 Escitalopram Oxalate [Lexapro -] 20 mg PO DAILY 12/08/18 Furosemide [Lasix] 20 mg PO DAILY 12/08/18 Insulin Glargine,Hum.rec.anlog 100 unit SQ ASDIR 12/08/18 [Lantus] Insulin Lispro [Humalog] 10 - 34 unit SQ TID 12/08/18 Pantoprazole Sodium 40 mg PO DAILY 12/08/18 Rosuvastatin Calcium [Crestor] 20 mg PO HS 12/08/18 Sacubitril/Valsartan [Entresto 24 24 - 26 mg PO BID 12/08/18 mg-26 mg Tablet] Insulin Sliding Scale [Novolog 1 vial SQ ACHS units 12/13/18 Vial Sliding Scale -] Albuterol Sulfate Inhaler - 2 inh PO TID 01/11/19 [Ventolin HFA Inhaler -] Allopurinol [Zyloprim -] 100 mg PO BID 01/11/19 Blood Sugar Diagnostic [Test 1 each MC TID 01/11/19 Strips] Colchicine [Colcrys] 0.6 mg PO DAILY 01/11/19 Ibuprofen 800 mg PO TID 01/11/19 Insulin Glargine,Hum.rec.anlog 58 units SQ HS 01/11/19 [Lantus Solostar PEN -] Insulin Lispro [Humalog Kwikpen 10 - 34 unit SQ TID 01/11/19 U-100] Tamsulosin HCl 0.4 mg PO DAILY 01/11/19 Docusate Sodium [Colace -] 100 mg PO TID #90 capsule 01/15/19 Midodrine HCl [Proamatine -] 2.5 mg PO TID-MID #90 tablet 01/15/19 Sennosides [Senna -] 2 tab PO HS 30 Days #60 tablet 01/15/19 OBJECTIVE: Vital Signs Period Temp Pulse Resp BP Sys/Garcia Pulse Ox Last 24 Hr 97.8 F-98.8 F 63-78 18-20 115-155/54-65 98-98 PHYSICAL EXAM GENERAL: The patient is awake, alert, and fully oriented, in no acute distress. Negative orthostatics. 98% on RA. Euvolemic. HEAD: Normal with no signs of trauma. EYES: PERRL, extraocular movements intact, sclera anicteric, conjunctiva clear. ENT: Ears normal, nares patent, oropharynx clear without exudates, moist mucous membranes. NECK: Trachea midline, full range of motion, supple. LUNGS: Breath sounds equal, clear to auscultation bilaterally, no wheezes, no crackles, no accessory muscle use. HEART: Regular rate and rhythm, S1, S2 without murmur, rub or gallop. ABDOMEN: Soft, nontender, nondistended, normoactive bowel sounds, no guarding, no rebound, no hepatosplenomegaly, no masses. EXTREMITIES: 2+ pulses, warm, well-perfused, no edema. NEUROLOGICAL: Cranial nerves II through XII grossly intact. Normal speech, gait not observed. PSYCH: Normal mood, normal affect. SKIN: Warm, dry, normal turgor, no rashes or lesions noted. LABS Laboratory Results - last 24 hr 01/14/19 01/15/19 01/15/19 21:18 06:22 11:48 POC Glucometer 256 170 195 01/15/19 16:43 POC Glucometer 290 HOSPITAL COURSE: Per admitting HPI: "Patient is a 78 year old man with a PMH of CAD (4 stents, triple bypass), ICD, CHF, Insulin-treated DM, COPD, Kidney stones, Gout and Achalasia, who presents to the ER after a fall that ocuured last night around 7: 30pm. Says he was sitting on his porch, at which time he felt lightheaded. and when he tried to getu up he felt his right hip give out, and consequently fell on his right side. Patient states that he was able to ambulate last night and today with the aid of his walker. However he is currently complaining of pain at a severity of 8/10. Worsened by walking. He also notes taking ibuprofen yesterday with improvement. The patient denies head trauma or loss of consciousness. Denies chest pain. SOB or palpations. Denies fever, chills, vomiting, nausea, dysuria, frequency or diarrhea. Uses a Juul. Has FH of CVA, CAD and cancer. Denies current tobacco use. Denies alcohol or other illicit substance use." Date of Admission:01/10/19 Date of Discharge: 01/15/19 -Falls, mechanical (PT consult pending, assess if placement needed. Cardiology and neurology have cleared; appreciate expert opinion) *Likely due to orthostatic hypotension; seen by CV (Dr. Strickland and covering) and noted to be orthostatic. He was observed off of lasix and he was clinically euvolemic. He is on 20 daily at home; I resumed it on his home medication list and he can take a dose tomorrow as he is clearly not fluid depleted, etc. at this time (nor is he in CHF). He should see his PCP on the as scheduled and assess further need for lasix (so would get one dose between now and then) and this can be coordinated with his OP CV. As stated in Dr. Strickland's note, no further indication for inpatinet CV workup for the cause of falls. He declined SNF and will go home with PT. He saw neurology as well as vascular surgery. No clinically significant stenosis or neurological contribution to his falls. Given SONY hose and home PT to assist with gait training and giving techniques for avoiding this. He has multiple comorbidities and is a high fall risk. He knows his fluid status is tenuous. I discussed this at length with the patient and his and they are in agreement of DC home and know the red flags to return to the hospital. -Recurring funguria with history of urethral stricture *ID and urology called; no abx recommended per ID. Hx urethral stricture; may followup with OP urology. UTI likely did not contribute to falls as this wasn't clinical infection and abx held off. Has chronic funguria likley related to his urethral stricture. Followup with Dr. Nails and Dr. Limon as scheduled. Culture results positive for yeast. -Severe systolic CHF *Got slow rate of isotonic fluids per nephrology due to APRYL; observing off lasix. Prior studies reviewed Tenuous fluid status; monitor closely. Resume entresto per cardiology at home dose. Will be DCd home on PO lasix with close followup scheduled with PCP. He needs to discuss his ongoing lasix dosing. Reviewed CV recs. Follow QD weights. Sodium restriction. 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 Keep scheduled followup with nephrology. Tolerating entresto. -PAD s/p b/l fem pop *No new issues -Achlasia (s/p myotomy) -Hx HTN -Hx HLD -Splenomegaly OVERALL PATIENT WILL REQUIRE [facility] SERVICES FOR PT AND RN DC HOME CARDIAC DIET, LOW SALT, FLUID LIMIT 2L ACTIVITY TOLERATED WITH HOME PT; FALL PRECATIONS, ETC. Minutes to complete discharge: 33 Discharge Summary Reason For Visit: UTI, RECURRENT FALLS Current Active Problems Carotid artery plaque (Acute) Orthostasis (Acute) Recurrent falls (Acute) Urinary tract infection (Acute) Condition: Fair - Instructions Diet, Activity, Other Instructions: outpt thrombocytopenia work up, HIV You were in the hospital because of falls. You need to follow up with the following doctors. Dr. Aguilera, primary care, 3-[address] Limon, urology, 1 week. You have persistent fungal infection in your urine. You will need to see the urologist about this. Dr. Nails, infectious diseases, 1 week. You need to see the ID doctor about your fungal infection. Dr. Moreira, vascular surgery, 1 week. You were found to have a carotid plaque. You will need to follow up with a vascular surgery. Dr. Teague, nephrology, [address] Morales, cardiology, 2 week You are being discharged on a new medication called Midodrine. Midodrine 2.5 mg three times daily Please have your orthostatic vital signs checked when you see your primary care Please work with home [facility] services for PT and RN Continue your other medications as before. It is recommended that you attend physical therapy and in-patient rehabilitation due to your frequent falls at home. You declined SNF multiple times but were agreeable to home PT/RN and this was set up by [facility] planning. Referrals: Cornelius Powell MD [Staff Physician] - 1 Week Corky Nails MD [Staff Physician] - 2 Weeks Vikash Guerra MD [Primary Care Provider] - 01/17/19 Jayy Morales MD [Staff Physician] - 1 Week Timoteo Moreira DO [Staff Physician] - 1 Week Gabriel Teague MD [Staff Physician] - 2 Weeks Erinn Limon MD [Staff Physician] - 1 Week Disposition: HOME - Home Medications Comprehensive Discharge Medication List: Ambulatory Orders Bimatoprost [Lumigan] 1 drop IO DAILY 12/08/18 Budesonide/Formeterol Fumarate [SYMBICORT 160/4.5mcg -] 16 inh PO BID 12/08/18 Carvedilol 3.125 mg PO BID 12/08/18 Clopidogrel Bisulfate [Plavix] 75 mg PO DAILY 12/08/18 Escitalopram Oxalate [Lexapro -] 20 mg PO DAILY 12/08/18 Furosemide [Lasix] 20 mg PO DAILY 12/08/18 Insulin Glargine,Hum.rec.anlog [Lantus] 100 unit SQ ASDIR 12/08/18 Insulin Lispro [Humalog] 10 - 34 unit SQ TID 12/08/18 Pantoprazole Sodium 40 mg PO DAILY 12/08/18 Rosuvastatin Calcium [Crestor] 20 mg PO HS 12/08/18 Sacubitril/Valsartan [Entresto 24 mg-26 mg Tablet] 24 - 26 mg PO BID 12/08/18 Insulin Sliding Scale [Novolog Vial Sliding Scale -] 1 vial SQ ACHS units 12/13 Albuterol Sulfate Inhaler - [Ventolin HFA Inhaler -] 2 inh PO TID 01/11/19 Allopurinol [Zyloprim -] 100 mg PO BID 01/11/19 Blood Sugar Diagnostic [Test Strips] 1 each MC TID 01/11/19 Colchicine [Colcrys] 0.6 mg PO DAILY 01/11/19 Ibuprofen 800 mg PO TID 01/11/19 Insulin Glargine,Hum.rec.anlog [Lantus Solostar PEN -] 58 units SQ HS 01/11/19 Insulin Lispro [Humalog Kwikpen U-100] 10 - 34 unit SQ TID 01/11/19 Tamsulosin HCl 0.4 mg PO DAILY 01/11/19 Docusate Sodium [Colace -] 100 mg PO TID #90 capsule 01/15/19 Midodrine HCl [Proamatine -] 2.5 mg PO TID-MID #90 tablet 01/15/19 Sennosides [Senna -] 2 tab PO HS 30 Days #60 tablet 01/15/19 This patient is new to me today: No Emergency Visit: No Critical Care patient: No - Discharge Referral Referred to [facility] Yes Physician Referral: Vikash Aguilera MD ([facility])
[2019-01-15] MEDS: ACETAMINOPHEN 650 MG/20.3 ML ORAL SOLUTION (CUPS) PO PRN (18:24)
[2019-01-15 18:40] VITALS: BP 131/51; PULSE 67; TEMP 98.1
== END 2019-01-15 19:30 | disposition home or self-care (01) | DRG 312 ==
LOC: JER 15:09 → JERBED 19:42 → J4S 01-11 23:59
PROVIDERS: ADMIT Internal Medicine; ATTEND Internal Medicine
DX: I95.1 Orthostatic hypotension (principal); I50.22 Chronic systolic (congestive) heart failure; N17.9 Acute kidney failure, unspecified; I13.0 Hypertensive heart and chronic kidney disease with heart failure and stage 1 through stage 4 chronic kidney disease, or unspecified chronic kidney disease; I25.10 Atherosclerotic heart disease of native coronary artery without angina pectoris; M10.9 Gout, unspecified; J44.9 Chronic obstructive pulmonary disease, unspecified; Z95.810 Presence of automatic (implantable) cardiac defibrillator; Z79.4 Long term (current) use of insulin; Z87.891 Personal history of nicotine dependence; R29.6 Repeated falls; E11.51 Type 2 diabetes mellitus with diabetic peripheral angiopathy without gangrene; N40.0 Benign prostatic hyperplasia without lower urinary tract symptoms; I44.0 Atrioventricular block, first degree; E66.9 Obesity, unspecified; E11.22 Type 2 diabetes mellitus with diabetic chronic kidney disease; E78.5 Hyperlipidemia, unspecified; N28.1 Cyst of kidney, acquired; Z87.440 Personal history of urinary (tract) infections; E86.0 Dehydration; D64.9 Anemia, unspecified; N18.3 Chronic kidney disease, stage 3 (moderate); R16.1 Splenomegaly, not elsewhere classified; I65.29 Occlusion and stenosis of unspecified carotid artery; I27.20 Pulmonary hypertension, unspecified; N35.919 Unspecified urethral stricture, male, unspecified site; Z68.22 Body mass index [BMI] 22.0-22.9, adult
CPT/HCPCS: 36415; 71045-TC-FY; 72100-TC-FY; 72170-TC-FY; 72192-TC; 73523-TC-FY; 73552-TC-RT-FY; 76775-TC; 80048; 80053; 81003; 82550; 82728; 82962; 83540; 83550; 83735; 83880; 84100; 84484; 85025; 85027; 87077; 87086; 93005; 93010; 93880-TC; 97116-GP; 97162-GP; 99285-25; J1644

== ENCOUNTER 2019-04-07 03:07 | Inpatient (IN) | payer OTHER, MEDICARE ==
--- NOTE | 2019-04-07 04:07 | PDOC ---
History of Present Illness - General Chief Complaint: Shortness of Breath Stated Complaint: DIFFICULTY BREATHING Time Seen by Provider: 04/07/19 04:07 Past History - Past Medical History Allergies/Adverse Reactions: Allergies Allergy/AdvReac Type Severity Reaction Status Date / Time pregabalin [From Lyrica] Allergy Severe Verified 04/07/19 03:45 Home Medications: Ambulatory Orders Carvedilol 3.125 mg PO BID 12/08/18 Escitalopram Oxalate [Lexapro -] 20 mg PO DAILY 12/08/18 Rosuvastatin Calcium [Crestor] 20 mg PO HS 12/08/18 Insulin Glargine,Hum.rec.anlog [Lantus Solostar PEN -] 58 units SQ HS 01/11/19 Tamsulosin HCl 0.4 mg PO DAILY 01/11/19 Albuterol 0.083% Nebulizer Fatuma [Ventolin 0.083% Nebulizer Soln -] 1 amp NEB ONCE 04/07/19 Clopidogrel Bisulfate [Clopidogrel] 75 mg PO DAILY 04/07/19 Droxidopa [Northera] 100 mg PO DAILY 04/07/19 Insulin Lispro [Humalog Ponce Kwikpen] 0 unit SQ ASDIR 04/07/19 Melatonin 10 mg PO HS 04/07/19 Sacubitril/Valsartan [Entresto 24 mg-26 mg Tablet] 1 each PO DAILY 04/07/19 Anemia: No Asthma: No Cancer: No Cardiac Disorders: Yes (4 stents, triple bypass) CVA: No COPD: Yes CHF: No Dementia: No Diabetes: Yes GI Disorders: No Disorders: No HTN: No Hypercholesterolemia: Yes Kidney Stones: No Liver Disease: No Psychiatric Problems: No Seizures: No Thyroid Disease: No Lung CA: No - Surgical History Abdominal Surgery: Yes (PARTIAL GASTRECTOMY,H/O ULCERS EGD BIOPSY 2009,EGD H- PYLORI 2006,COLON 2003) Appendectomy: Yes Cardiac Surgery: Yes Cholecystectomy: Yes Lung Surgery: Yes (ICD,STENTS ,TRIPLE BYPASS) Neurologic Surgery: No Orthopedic Surgery: No - Reproductive History Testicular Surgery: Yes - Immunization History Immunization Up to Date: Yes - Psycho Social/Smoking Cessation Hx Smoking Status: Yes Smoking History: Never smoked Years of Tobacco Use: 50 Have you smoked in the past 12 months: No Number of Cigarettes Smoked Daily: 30 If you are a former smoker, when did you quit?: 2 YRS Information on smoking cessation initiated: No 'Breaking Loose' booklet given: 07/01/18 Hx Alcohol Use: No Drug/Substance Use Hx: No Substance Use Type: Cocaine Hx Substance Use Treatment: No *Physical Exam - Vital Signs Last Vital Signs Temp Pulse Resp BP Pulse Ox 98.2 F 87 16 108/90 98 04/07/19 03:07 04/07/19 03:07 04/07/19 03:07 04/07/19 03:07 04/07/19 03:07 ED Treatment Course - LABORATORY CBC & Chemistry Diagram: 04/07/19 05:05 04/07/19 05:05 Medical Decision Making - Medical Decision Making 04/07/19 04:09 HPI: 78yo M hx systolic CHF (EF 25-30%), s/p ICD, CAD s/p CABG (triple), PCI (4 stents, last PCI 2-3 years ago), PAD s/p fem-pop bypass, IDDM, achalasia s/p Heller's myotomy, PUD s/p partial gastrectomy (Bilroth Type II) years ago, HTN, HLD, COPD (>60 pack year smoking history, quit recently, not on O2 at home), kidney stones s/p surgery, gout, s/p appendectomy, BIBA from home c/o worsening SOB and chills x2 days. SOB intermittent, worse with exertion, nonpositional. Endorses wheezing yesterday. Denies leg swelling, calf tenderness, CP, fever, abdominal pain, diarrhea, urinary sx. Today SOB started suddenly at 0300. Pt tried inhalers x2 and nebulizer without improvement. When pt arrived in ED, developed nausea and NBNB emesis x4. Denies nausea now. Endorses chronic constipation, LBM 3 days ago, still passing gas normally. Pt taking all medications as prescribed. Denies hx DVT/PE, recent travel, recent surgeries, hemoptysis, leg swelling. ROS: Constitutional: Positive for chills, cold feeling, fatigue. Negative for fever, diaphoresis. HENT: Negative for sore throat, rhinorrhea, congestion. Eyes: Negative for visual disturbance. Respiratory: Positive for shortness of breath and wheezing. Negative for cough. Cardiovascular: Negative for chest pain, palpitations, and leg swelling. Gastrointestinal: Positive for constipation, nausea, vomiting. Negative for abdominal pain, blood in stool, diarrhea. Genitourinary: Negative for dysuria, flank pain, and hematuria. Musculoskeletal: Negative for myalgias, back pain, and neck pain. Skin: Negative for rash. Neurological: Negative for light-headedness, dizziness, vertigo, syncope, weakness, numbness and headaches. Psychiatric/Behavioral: Negative for behavioral problems and confusion. PE: Gen: Alert, NAD, comfortable-appearing. HEENT: PERRL, EOMI, MMM, NCAT. No conjunctival pallor. Sclera are non-icteric. CV: Regular rate and rhythm. No murmurs, rubs, or gallops. PULM: No resp distress. Poor inspiratory effort. CTAB, no wheezes, rales, or rhonchi. ABD: soft, NT/ND, no rebound tenderness or guarding, no CVA tenderness. BACK: No TTP of c/t/l-spine. No step-offs or deformities. MSK: No bony deformities. 2+ pulses in all extremities. NEURO: AAOx3. PERRL. No gross CN deficits. Strength and sensation grossly intact throughout. EXTREMITIES: No cyanosis. No clubbing. No edema. No calf tenderness. PSYCH: Normal mood and thought pattern. SKIN: Warm and dry. Normal capillary refill. No rashes. No jaundice. MDM: 78yo M hx systolic CHF (EF 25-30%), s/p ICD, CAD s/p CABG (triple), PCI (4 stents, last PCI 2-3 years ago), PAD s/p fem-pop bypass, IDDM, achalasia s/p Heller's myotomy, PUD s/p partial gastrectomy (Bilroth Type II) years ago, HTN, HLD, COPD (>60 pack year smoking history, quit recently), kidney stones s/p surgery, gout, s/p appendectomy, BIBA from home with worsening SOB and chills x2 days. Soft BP 108/90, slight tachycardia 90s, afebrile, O2 sat 93% on 2L NC O2, normal RR. Ddx: ACS/GA, COPD exacerbation, CHF exacerbation, PNA, arrhythmia, metabolic derangement, UTI, anemia -Cardiac monitoring -CBC,CMP,Cardiac profile,BNP,Mg,Phos,UA/UC,BCx,VBG,Lact -EKG -CXR -Due to reduced EF, hold IVF at this time and monitor BP -Dispo: likely admit pending w/u 04/07/19 06:48 EKG reviewed: sinus rhythm with 1st degree AV block, nonspecific IV lock, 87bpm , normal axis, no e/o acute ischemia Labs reviewed: of note, APRYL, BNP 1396 (approx baseline). Pending UA. CXR reviewed: weak inspiration, some congestive changes 04/07/19 06:53 Signed out to admitting team. Discharge - Discharge Information Problems reviewed: Yes Clinical Impression/Diagnosis: APRYL (acute kidney injury), Shortness of breath, Congestive heart failure Condition: Fair - Admission Yes - Follow up/Referral Referrals: Vikash Guerra MD [Primary Care Provider] - - Patient Discharge Instructions - Post Discharge Activity
--- NOTE | 2019-04-07 05:01 | PDOC ---
Attending Attestation - Resident Resident Name: Nereida Arteaga - ED Attending Attestation I have performed the following: I have examined & evaluated the patient, The case was reviewed & discussed with the resident, I agree w/resident's findings & plan - HPI HPI: 04/07/19 06:45 78yo M hx systolic CHF (EF 25-30%), s/p ICD, CAD s/p CABG (triple), PCI (4 stents, last PCI 2-3 years ago), PAD s/p fem-pop bypass, IDDM, achalasia s/p Heller's myotomy, PUD s/p partial gastrectomy (Bilroth Type II) years ago, HTN, HLD, COPD (>60 pack year smoking history, quit recently, not on O2 at home), kidney stones s/p surgery, gout, s/p appendectomy, BIBA from home c/o worsening SOB and chills x2 days. SOB intermittent, worse with exertion, nonpositional. Endorses wheezing yesterday. Denies leg swelling, calf tenderness, CP, fever, abdominal pain, diarrhea, urinary sx. Today SOB started suddenly at 0300. Pt tried inhalers x2 and nebulizer without improvement. When pt arrived in ED, developed nausea and NBNB emesis x4. Denies nausea now. Endorses chronic constipation, LBM 3 days ago, still passing gas normally. Pt taking all medications as prescribed. Denies hx DVT/PE, recent travel, recent surgeries, hemoptysis, leg swelling. - Physicial Exam PE: 04/08/19 03:08 PE: Gen: Alert, NAD, comfortable-appearing. HEENT: PERRL, EOMI, MMM, NCAT. No conjunctival pallor. Sclera are non-icteric. CV: S1S2 RRR PULM: No resp distress. No, rales, or rhonchi. ABD: soft, NT/ND, no rebound tenderness or guarding, no CVA tenderness. BACK: no point tenderness on spine; no flank pain MSK: No bony deformities. 2+ pulses in all extremities. NEURO: AAOx3. PERRL. No gross CN deficits. Strength and sensation grossly intact throughout. EXTREMITIES: No cyanosis. No clubbing. No edema. No calf tenderness. PSYCH: Normal mood and thought pattern. SKIN: Warm and dry. Normal capillary refill. No rashes. No jaundice. - Medical Decision Making 04/07/19 06:45 BNP is elevated 04/08/19 03:10 Pt signed out to the day team to be admitted for SOB and CHF exacerbation.
[2019-04-07 05:58] LABS: BASO % 0.4 % (0-2.0); EOS % 1.5 % (0-4.5); HEMATOCRIT 32.8 % (35.4-49); LYMPH % 6.2 % (8-40); MCHC 33.7 g/dl (32.0-35.9); MEAN CELL VOLUME 80.2 fl (80-96); MEAN PLT VOLUME 7.8 fl (7.5-11.1); MONO % 5.3 % (3.8-10.2); NEUT % 86.6 % (42.8-82.8); PLATELET COUNT 158 K/MM3 (134-434); RBC 4.09 M/mm3 (4.00-5.60); RDW 17.7 % (11.9-15.9); WHITE BLOOD COUNT 7.7 K/mm3 (4.0-10.0)
[2019-04-07 06:06] LABS: VENOUS PC02 36.6 mmHg (38-52); VENOUS PH 7.36 (7.31-7.41)
[2019-04-07 06:07] LABS: VENOUS PO2 < 49 mmHg (28-48)
[2019-04-07 06:14] LABS: INR 1.01 (0.83-1.09); PROTHROMBIN TIME (PATIENT) 11.9 SEC (9.7-13.0)
[2019-04-07 06:17] LABS: ACTIVATED PTT 29.6 SECONDS (25.2-36.5)
[2019-04-07 06:28] LABS: ALBUMIN 3.2 g/dl (3.4-5.0); BILIRUBIN,TOTAL 0.5 mg/dL (0.2-1); BLOOD UREA NITROGEN 32.9 mg/dL (7-18); CALCIUM 8.5 mg/dL (8.5-10.1); CREATININE 1.8 mg/dL (0.55-1.3); POTASSIUM 4.4 mmol/L (3.5-5.1); TOT PROT 6.4 g/dl (6.4-8.2)
[2019-04-07 06:31] LABS: PHOSPHOROUS 2.1 mg/dL (2.5-4.9)
--- NOTE | 2019-04-07 09:15 | HP ---
PCP: Vikash Guerra CHIEF COMPLAINT: Shortness of breath HISTORY OF PRESENT ILLNESS: This is a 78 year old man who comes to the ED complaining of sudden onset of shortness of breath last night. He tried his inhalers and nebulizer without improvement. He has had a cough productive of white sputum for several months. He denies fever, chills, hemoptysis, wheezing, chest pain, palpitations, leg swelling, calf pain. He says he has gained a few pounds recently. He has not had orthopnea, paroxysmal nocturnal dyspnea, or nocturia. He says he is compliant with his medications. PAST MEDICAL HISTORY Chronic systolic heart failure CAD CO HTN Hyperlipidemia PAD Type 2 DM Asthma/COPD PUD Achalasia Gout Kidney stones Stage 3 CKD BPH Chronic constipation PAST SURGICAL HISTORY CABG PCI/stents AICD Fem-pop bypass Bilroth II gastrectomy Heller's myotomy Cholecystectomy Appendectomy Social History Smoking: Quit 2 years ago Alcohol: Denies Drugs: Denies Recent Travel: No Allergies pregabalin [From [place]] Allergy (Severe, Verified 04/07/19 03:45) vertigo/fainted Home Medications Medication Instructions Recorded Carvedilol 3.125 mg PO BID 12/08/18 Escitalopram Oxalate [Lexapro -] 20 mg PO DAILY 12/08/18 Rosuvastatin Calcium [Crestor] 20 mg PO HS 12/08/18 Insulin Glargine,Hum.rec.anlog 58 units SQ HS 01/11/19 [Lantus Solostar PEN -] Tamsulosin HCl 0.4 mg PO DAILY 01/11/19 Albuterol 0.083% Nebulizer Fatuma 1 amp NEB ONCE 04/07/19 [Ventolin 0.083% Nebulizer Soln -] Clopidogrel Bisulfate [Clopidogrel] 75 mg PO DAILY 04/07/19 Droxidopa [Northera] 100 mg PO DAILY 04/07/19 Insulin Lispro [Humalog Ponce 0 unit SQ ASDIR 04/07/19 Kwikpen] Melatonin 10 mg PO HS 04/07/19 Sacubitril/Valsartan [Entresto 24 1 each PO DAILY 04/07/19 mg-26 mg Tablet] REVIEW OF SYSTEMS CONSTITUTIONAL: Present: weight gain. Absent: fever, chills, diaphoresis, generalized weakness, malaise, loss of appetite HEENT: Absent: rhinorrhea, nasal congestion, throat pain, throat swelling, difficulty swallowing, mouth swelling, ear pain, eye pain, visual changes CARDIOVASCULAR: Absent: chest pain, syncope, palpitations, lightheadedness, peripheral edema RESPIRATORY: Present: cough, shortness of breath. Absent: orthopnea, wheezing, stridor, hemoptysis GASTROINTESTINAL: Present: constipation. Absent: abdominal pain, abdominal distension, nausea, vomiting, diarrhea, melena, hematochezia GENITOURINARY: Absent: dysuria, frequency, urgency, hesitancy, hematuria, flank pain MUSCULOSKELETAL: Absent: myalgia, arthralgia, joint swelling, back pain, neck pain SKIN: Absent: rash, itching, pallor HEMATOLOGIC/IMMUNOLOGIC: Absent: easy bleeding, easy bruising, lymphadenopathy, frequent infections ENDOCRINE: Present: weight gain. Absent: unexplained weight loss, heat intolerance, cold intolerance NEUROLOGIC: Absent: headache, focal weakness, paresthesias, dizziness, unsteady gait, seizure, mental status changes, bladder or bowel incontinence PSYCHIATRIC: Absent: anxiety, depression, suicidal or homicidal ideation, hallucinations. PHYSICAL EXAMINATION Vital Signs - 24 hr 04/07/19 04/07/19 04/07/19 03:07 06:41 07:58 Temperature 98.2 F 98.6 F 97.9 F Pulse Rate 87 Pulse Rate [ 82 75 Right] Respiratory 16 18 22 H Rate Blood Pressure 108/90 Blood Pressure 103/52 L 107/51 L [Left Arm] O2 Sat by Pulse 98 97 99 Oximetry (%) GENERAL: Awake, alert, and fully oriented, in no acute distress. HEAD: Normal with no signs of trauma. EYES: Pupils equal, round and reactive to light, extraocular movements intact, sclerae anicteric, conjunctiva clear. EARS, NOSE, THROAT: Ears normal, nares patent, oropharynx clear without exudates. Moist mucous membranes. NECK: Normal range of motion, supple without lymphadenopathy, JVD, or masses. LUNGS: Breath sounds equal. Bibasilar rales. No wheezes. No crackles. No accessory muscle use. HEART: Regular rate and rhythm, normal S1 and S2, (+) 2/6 systolic murmur. ABDOMEN: Soft, nontender, not distended, normoactive bowel sounds, no guarding, no rebound, no masses. No hepatomegaly or splenomegaly. MUSCULOSKELETAL: Normal range of motion at all joints. No bony deformities or tenderness. No CVA tenderness. UPPER EXTREMITIES: 2+ pulses, warm, well-perfused. No cyanosis. No clubbing. No peripheral edema. LOWER EXTREMITIES: 2+ pulses, warm, well-perfused. No calf tenderness. No peripheral edema. NEUROLOGICAL: Cranial nerves II-XII intact. Normal speech. Gait not observed. PSYCHIATRIC: Cooperative. Good eye contact. Appropriate mood and affect. SKIN: Warm, dry, normal turgor, no rashes or lesions noted, normal capillary refill. Laboratory Results - last 24 hr 04/07/19 04/07/19 04/07/19 05:05 05:05 05:05 WBC 7.7 RBC 4.09 Hgb 11.0 L Hct 32.8 L MCV 80.2 MCH 27.0 MCHC 33.7 RDW 17.7 H Plt Count 158 D MPV 7.8 Absolute Neuts (auto) 6.7 Neutrophils % 86.6 H D Lymphocytes % 6.2 L D Monocytes % 5.3 Eosinophils % 1.5 Basophils % 0.4 Nucleated RBC % 0 PT with INR 11.90 INR 1.01 PTT (Actin FS) 29.6 VBG pH POC VBG pCO2 POC VBG pO2 VBG HCO3 VBG O2 Sat (Arcenio) VBG Base Excess Sodium 142 Potassium 4.4 Chloride 112 H Carbon Dioxide 21 Anion Gap 10 BUN 32.9 H Creatinine 1.8 H Est GFR (CKD-EPI)AfAm 41.45 Est GFR (CKD-EPI)NonAf 35.76 Random Glucose 153 H Lactic Acid Calcium 8.5 Phosphorus Magnesium Total Bilirubin 0.5 AST 17 ALT 32 Alkaline Phosphatase 86 Creatine Kinase Troponin I B-Natriuretic Peptide Total Protein 6.4 Albumin 3.2 L 04/07/19 04/07/19 04/07/19 05:05 05:05 05:05 WBC RBC Hgb Hct MCV MCH MCHC RDW Plt Count MPV Absolute Neuts (auto) Neutrophils % Lymphocytes % Monocytes % Eosinophils % Basophils % Nucleated RBC % PT with INR INR PTT (Actin FS) VBG pH POC VBG pCO2 POC VBG pO2 VBG HCO3 VBG O2 Sat (Arcenio) VBG Base Excess Sodium Potassium Chloride Carbon Dioxide Anion Gap BUN Creatinine Est GFR (CKD-EPI)AfAm Est GFR (CKD-EPI)NonAf Random Glucose Lactic Acid 1.5 Calcium Phosphorus 2.1 L Magnesium 2.0 Total Bilirubin AST ALT Alkaline Phosphatase Creatine Kinase 46 Troponin I < 0.02 B-Natriuretic Peptide 1396.0 H Total Protein Albumin 04/07/19 05:05 WBC RBC Hgb Hct MCV MCH MCHC RDW Plt Count MPV Absolute Neuts (auto) Neutrophils % Lymphocytes % Monocytes % Eosinophils % Basophils % Nucleated RBC % PT with INR INR PTT (Actin FS) VBG pH 7.36 POC VBG pCO2 36.6 L POC VBG pO2 < 49 H VBG HCO3 20.2 L VBG O2 Sat (Arcenio) 41.8 L VBG Base Excess -4.2 L Sodium Potassium Chloride Carbon Dioxide Anion Gap BUN Creatinine Est GFR (CKD-EPI)AfAm Est GFR (CKD-EPI)NonAf Random Glucose Lactic Acid Calcium Phosphorus Magnesium Total Bilirubin AST ALT Alkaline Phosphatase Creatine Kinase Troponin I B-Natriuretic Peptide Total Protein Albumin ASSESSMENT/PLAN: This is a 78 year old man with a history of chronic systolic heart failure, CAD , CO, CABG, PCI/stents, AICD, HTN, hyperlipidemia, PAD, fem-pop bypass, type 2 DM, asthma/COPD, PUD, Bilroth II gastrectomy, achalasia, Heller's myomectomy, gout, kidney stones, stage 3 CKD, BPH, chronic constipation who presents to the ED with sudden onset of shortness of breath. 1. Acute on chronic systolic heart failure secondary to ischemic cardiomyopathy - Admit to telemetry - Repeat troponin - Lasix IV x1 - Hold Entresto secondary to APRYL - Repeat CXR in AM - Monitor I&O, weight - Has AICD - Cardiology evaluation 2. Acute kidney injury on stage 3 CKD - Creatinine 1.8 with baseline 1.2 - Possible cardiorenal syndrome - Hold Entresto - Monitor BUN, creatinine with diuresis 3. CAD with ischemic cardiomypathy, history of CO, CABG, PCI/stents - Continue Plavix, Coreg, Crestor 4. HTN - Continue Coreg - Hold Entresto secondary to APRYL 5. Hyperlipidemia - Continue Crestor 6. Type 2 DM - Levemir, fingersticks with Novolog sliding scale 7. PAD, history of fem-pop bypass 8. Asthma/COPD - Stable - Continue Symbicort, Albuterol as needed 9. PUD, history of Bilroth II gastrectomy - Continue Protonix 10. Achalasia, history of Heller's myomectomy 11. Dysphagia - Dysphagia whole diet with thin liquids - Swallow evaluation 12. History of gout - Continue allopurinol 13. BPH - Continue Flomax 14. Chronic constipation - Continue Colace 15. Orthostatic hypotension - Continue Droxidopa Family Medical History Family History: Denies Visit type - Emergency Visit Emergency Visit: Yes ED Registration Date: 04/07/19 Care time: The patient presented to the Emergency Department on the above date and was hospitalized for further evaluation of their emergent condition. - New Patient This patient is new to me today: Yes Date on this admission: 04/07/19 - Critical Care Critical Care patient: No
--- NOTE | 2019-04-07 11:31 | EKG ---
Test Reason : Blood Pressure : / mmHG Vent. Rate : 087 BPM Atrial Rate : 087 BPM P-R Int : 220 ms QRS Dur : 126 ms QT Int : 396 ms P-R-T Axes : 091 007 099 degrees QTc Int : 476 ms SINUS RHYTHM WITH 1ST DEGREE A-V BLOCK NON-SPECIFIC INTRA-VENTRICULAR CONDUCTION BLOCK CANNOT RULE OUT ANTERIOR INFARCT , AGE UNDETERMINED ABNORMAL ECG WHEN COMPARED WITH ECG OF 10-JAN-2019 15:20, NONSPECIFIC T WAVE ABNORMALITY NOW EVIDENT IN INFERIOR LEADS T WAVE INVERSION NO LONGER EVIDENT IN LATERAL LEADS Confirmed by MELISSA LI MD ([id number]) on 04/07/2019 11:31:04 AM Referred By: Confirmed By:MELISSA LI MD
[2019-04-07] MEDS ORDERED: FUROSEMIDE 40 MG/4 ML INJECTABLE VIAL IVPB ONE (13:45)
[2019-04-07] MEDS: HEPARIN NA (PORCINE) 5,000 UNITS/ML 1ML VIAL SQ SCH (17:23)
[2019-04-07 18:27] LABS: EPI CELLS 10.9 /HPF (0-5/HPF); HYALINE CASTS 17 /lpf (0-8); URINE APPEARANCE CLOUDY; URINE BACTERIA 0.3 /hpf (NEGATIVE); URINE BILIRUBIN NEGATIVE (NEGATIVE); URINE COLOR YELLOW; URINE GLUCOSE (UA) NEGATIVE (NEGATIVE); URINE KETONE NEGATIVE (NEGATIVE); URINE LEUK ESTERASE 2+ (NEGATIVE); URINE NITRITE NEGATIVE (NEGATIVE); URINE PROTEIN NEGATIVE (NEGATIVE); URINE RBC 3 /hpf (0-4); URINE UROBILINOGEN 0.2 mg/dL (0.2-1.0); URINE WBC 68 /hpf (0-5)
[2019-04-07] MEDS ORDERED: ALBUTEROL SO4 0.083% IH SOL 2.5 MG/3 ML VIAL.NEB. NEB PRN (18:55)
[2019-04-07] MEDS: MELATONIN 5 MG TABLETS PO SCH (21:23)
[2019-04-07] MEDS: ROSUVASTATIN CA 20 MG TABLET (FP) PO SCH (21:23)
[2019-04-07] MEDS: CARVEDILOL 3.125 MG TABLET (FP) PO SCH (21:24)
[2019-04-07] MEDS: ALLOPURINOL 100 MG TABLET (FP) PO SCH (21:24)
[2019-04-07] MEDS: INSULIN (LEVEMIR) 100 UNITS/ML UNITS SQ SCH (21:26)
[2019-04-07] MEDS: INSULIN SLIDING SCALE (NOVOLOG) 1 VIAL SQ SCH (21:27)
[2019-04-07] MEDS: BUDESONIDE/FORMETEROL FUMARATE 160/4.5 mcg INHALER IH SCH (21:30)
[2019-04-07] MEDS ORDERED: MELATONIN 10 MG PO SCH (22:00)
[2019-04-08] MEDS: HEPARIN NA (PORCINE) 5,000 UNITS/ML 1ML VIAL SQ SCH ×3 (01:32→21:58)
[2019-04-08] MEDS: INSULIN SLIDING SCALE (NOVOLOG) 1 VIAL SQ SCH ×4 (06:15→21:59)
[2019-04-08 07:31] LABS: HEMATOCRIT 30.2 % (35.4-49); HEMOGLOBIN 10.2 GM/dL (11.7-16.9); MCH 27.1 pg (25.7-33.7); MCHC 33.7 g/dl (32.0-35.9); MEAN CELL VOLUME 80.2 fl (80-96); MEAN PLT VOLUME 7.9 fl (7.5-11.1); PLATELET COUNT 151 K/MM3 (134-434); RBC 3.76 M/mm3 (4.00-5.60); RDW 17.1 % (11.9-15.9); WHITE BLOOD COUNT 6.2 K/mm3 (4.0-10.0)
[2019-04-08 07:54] LABS: BLOOD UREA NITROGEN 35.6 mg/dL (7-18); CALCIUM 8.5 mg/dL (8.5-10.1); CREATININE 1.5 mg/dL (0.55-1.3); PHOSPHOROUS 3.4 mg/dL (2.5-4.9)
[2019-04-08] MEDS: TAMSULOSIN HCL 0.4 MG CAP PO SCH (08:11)
[2019-04-08] MEDS ORDERED: ESCITALOPRAM OXALATE 10 MG TABLET (FP) ONE (09:14)
[2019-04-08] MEDS: CARVEDILOL 3.125 MG TABLET (FP) PO SCH ×2 (09:29→21:58)
[2019-04-08] MEDS: BUDESONIDE/FORMETEROL FUMARATE 160/4.5 mcg INHALER IH SCH ×2 (09:34→22:00)
[2019-04-08] MEDS: ALLOPURINOL 100 MG TABLET (FP) PO SCH ×2 (09:34→21:58)
[2019-04-08] MEDS: ESCITALOPRAM OXALATE 20 MG TABLET (FP) PO SCH (09:34)
[2019-04-08] MEDS: PANTOPRAZOLE 40 MG TABLET (FP) PO SCH (09:34)
[2019-04-08] MEDS: CLOPIDOGREL BISULFATE 75 MG TABLET (FP) PO SCH (09:34)
[2019-04-08] MEDS ORDERED: DROXIDOPA 100 MG PO SCH (10:00)
--- NOTE | 2019-04-08 10:29 | CONSULT ---
Admitting History and Physical - Primary Care Physician PCP: Shawn Lewis - Admission History of Present Illness: 78 year old man who comes to the ED complaining of sudden onset of shortness of breath last night. He tried his inhalers and nebulizer without improvement. He has had a cough productive of white sputum for several months. PMhx of Severe Systolic CHF (EF 25-30%), s/p ICD, CAD s/p CABG/PCI (last PCI 2- 3 years ago), PAD s/p b/o fem-pop bypass, LE PCI with stenting, IDDM poorly controlled, Achalasia s/p Heller's myotomy, PUD s/p partial gastrectomy ( Bilroth Type II) years ago, HTN, HLD, COPD (>60 pack year smoking history) Seen last by me 01/2019, spitting food back out, refused diet downgrade. CONSTRUCTION REP noted food spit out in cups at bedside. Very forgetful. He said he tolerated breakfast but was coughing and expectorating what he ate. Pt reports eating food and bringing it back up, for over a year. At least daily. He feels it happens with all consistencies of food. He is not on supplements. Diabetic. "Never heard of Glucerna". Pt does not want diet downgrade. Pt was on chopped diet in past. Similar c/o in previous reports, dating back to May 2018. 2017 similar complaint. 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 No stricture but tertiary contractions per GI. Weight- 12/09 177 12/13 180 01/10 162 04/08 179?? Selected Entries 04/07/19 04/07/19 04/07/19 03:07 06:41 07:58 Supper Temperature 98.2 F 98.6 F 97.9 F 11/28/19 11/28/19 11/28/19 11:06 14:22 18:00 Supper Temperature 97.8 F 98.3 F 98.5 F 04/07/19 04/07/19 04/08/19 18:05 22:00 02:00 Supper 75% Temperature 98.1 F 98.3 F 04/08/19 04/08/19 06:00 09:27 Supper Temperature 98.2 F 97.7 F Laboratory Tests 04/07/19 04/08/19 05:05 06:54 WBC 7.7 6.2 On Dys whole, thin liquids. Pt c/o dysphagia, reported to nursing food gets stuck, brings it up. Pt continues to eat solids, bring them back up. He c/o always coughing. No difficulty with liquids. Refusing chopped food trial. - Past Medical History Cardiovascular: Yes: CAD, CHF, HTN, Hyperlipdemia, [place] Pulmonary: Yes: Asthma, Bronchitis, COPD, Pneumonia Gastrointestinal: Yes: Constipation Renal/: Yes: BPH Heme/Onc: Yes: Cancer (Lung) Musculoskeletal: Yes: Chronic low back pain, Osteoarthritis Endocrine: Yes: Diabetes Mellitus - Past Surgical History Past Surgical History: Yes: CABG, Cholecystectomy - Smoking History Smoking history: Former smoker Have you smoked in the past 12 months: No Aproximately how many cigarettes per day: 30 If you are a former smoker, when did you quit?: 1 year ago - Alcohol/Substance Use Hx Alcohol Use: Yes History of Substance Use: reports: None - Social History ADL: Independent Occupation: retired: worked for [employer] History of Recent Travel: No History - Admission Reason For Visit: ACUTE KIDNEY INJURY - Diagnostics X-ray: Report Reviewed (no infiltrate/failure) - General Mental Status: Alert and Oriented, Awake and Alert, Able to Follow Commands, Forgetful Attention: Intact Ability to Follow Directions: Good Head/Neck Control: WFL - Hearing Hearing: Functional Hearing: Impaired Hearing Aide: No Speech Evaluation - Communication Primary Language: WELSH Communication: Yes: Within Normal Limits Oral Expression Ability: Yes: No Impairment - Speech Production Able to Make Needs Known: Yes: WNL Intelligibility: Yes: WNL - Speech Characteristics Voice Loudness: Normal Voice Pitch: Yes: Normal Voice Phonatory-based Quality: Yes: Normal Speech Pattern: Normal Speech Clarity: < 100% Nasal Resonance: Normal Articulation: Yes: Precise Rate of Speech: Intact - Language/Auditory Comprehension Follows: Yes: 2 Stage Simple Commands Observation: Able to respond to yes/no queries: Yes, Yes/No Confusion: No, Comprehends Conversational Speech: Yes - Language/Verbal Expression Able to Respond to Simple Queries: Yes: WNL Able to Communicate Wants and Needs: Yes: WNL Functional Communication Status: Yes: WNL - Swallow Evaluation/Bedside Assessment Current Nutritional Intake: Dysphagia Whole, Thin Liquids Oral Secretions: Yes: WFL Dentition: Yes: Edentulous (lower), Dental Appliance Upper Facial Symmetry at Rest: Symmetrical Facial Symmetry on Retraction: Symmetrical Facial Movement: Controlled Against Resistance Opening: Normal Against Resistance Closing: Normal Pucker Lips: Normal Smile: Normal Lingual Movement: Normal, Symmetric Lingual Speed of Movement: Normal Lingual Movement Strgth Against Opposition: Normal Lingual Movement Characteristics: Normal Velopharyngeal Movement: Normal Laryngeal Elevation: WFL Laryngeal Movement: Able to Palpate Rate of Intake: WFL Bolus Size: WFL Labial Seal: WFL Chewing: WFL Oral Prep Time: WFL A-P Transit: WFL Pocketing: None Timing of Swallow: WFL Coughing/Throat Clear: No Change in Voice: No Recommendations - Speech Evaluation, Impression/Plan Impression: On Dys whole, thin liquids. Pt c/o dysphagia, reported to nursing food gets stuck, brings it up.Tolerated liquids without cough or expectoration. Pt continues to eat solids, bring them back up at home and here. He c/o always coughing. No difficulty with liquids. Refusing chopped food trial. r/o persistent esophageal dysphagia. Gained 20 lbs per EMR since Jan? - Dysphagia Impressions/Plan Swallowing Skills: Impaired Dysphagia Impressions: Moderate Impairment *Silent aspiration: cannot be R/O at bedside Dysphagia Treatment Plan: OOB for meals, OOB for 1 h. after meals Recommendations: GI Consult (repeat Standard Ba swallow? If (-), repeat MBS) - Recommendations Diet Consistency: Dysphagia Whole (very soft, easy to chew,) Liquids: Thin Liquids Supplement: Ensure
--- NOTE | 2019-04-08 11:38 | CON.CARD ---
Consult Consult Specialty:: Cardiology Referred by:: Hospitalist Medicine Reason for Consultation:: Dyspnea on exertion - History of Present Illness Chief Complaint: Dyspnea on exertion History of Present Illness: Patient is a 78 year old male with underlying history of CAD s/p CABG, PCI/stent , angina pectoris, class 2 NYHA classification LV failure with underlying LV systolic dysfunction, s/p ICD implant, HTN, DM and hypercholesterolemia who presents with dyspnea refractory to bronchodilators, productive cough, inadvertent weight gain w/o chest pain, near or true syncope, palpitations, orthopnea, PND or LE edema, reports medication and diet compliance, denies NSAID use, reports gait instability with falls to right despite cane assistance. Symptoms improving with diuresis. - History Source History Provided By: Patient Limitations to Obtaining History: No Limitations - Past Medical History Cardio/Vascular: Yes: CAD, CHF, HTN, Hyperlipdemia, [place] Pulmonary: Yes: Asthma, Bronchitis, COPD, Pneumonia Gastrointestinal: Yes: Constipation Renal/: Yes: BPH Musculoskeletal: Yes: Chronic low back pain, Osteoarthritis Endocrine: Yes: Diabetes Mellitus - Past Surgical History Past Surgical History: Yes: CABG, Cholecystectomy - Alcohol/Substance Use Hx Alcohol Use: Yes History of Substance Use: reports: None - Smoking History Smoking history: Former smoker Have you smoked in the past 12 months: No Aproximately how many cigarettes per day: 30 If you are a former smoker, when did you quit?: 1 year ago - Social History Usual Living Arrangement: With Spouse ADL: Independent Occupation: retired: worked for [employer] History of Recent Travel: No Home Medications - Allergies Allergies/Adverse Reactions: Allergies Allergy/AdvReac Type Severity Reaction Status Date / Time pregabalin [From Lyrica] Allergy Severe Verified 04/07/19 03:45 - Home Medications Home Medications: Ambulatory Orders Carvedilol 3.125 mg PO BID 12/08/18 Escitalopram Oxalate [Lexapro -] 20 mg PO DAILY 12/08/18 Rosuvastatin Calcium [Crestor] 20 mg PO HS 12/08/18 Insulin Glargine,Hum.rec.anlog [Lantus Solostar PEN -] 58 units SQ HS 01/11/19 Tamsulosin HCl 0.4 mg PO DAILY 01/11/19 Albuterol 0.083% Nebulizer Fatuma [Ventolin 0.083% Nebulizer Soln -] 1 amp NEB ONCE 11/28/19 Clopidogrel Bisulfate [Clopidogrel] 75 mg PO DAILY 04/07/19 Droxidopa [Northera] 100 mg PO DAILY 04/07/19 Insulin Lispro [Humalog Ponce Kwikpen] 0 unit SQ ASDIR 04/07/19 Melatonin 10 mg PO HS 04/07/19 Sacubitril/Valsartan [Entresto 24 mg-26 mg Tablet] 1 each PO DAILY 04/07/19 Review of Systems - Review of Systems Cardiovascular: reports: Shortness of Breath Respiratory: reports: Cough, SOB on Exertion Neurological: reports: Unsteady Gait Vital Signs: Vital Signs Temperature 97.7 F 04/08/19 09:27 Pulse Rate 67 04/08/19 09:27 Respiratory Rate 17 04/08/19 09:27 Blood Pressure 122/51 L 04/08/19 09:27 O2 Sat by Pulse Oximetry (%) 97 04/07/19 20:44 Constitutional: Yes: No Distress, Calm, Thin Neck: Yes: Supple Respiratory: Yes: Regular, Diminished Gastrointestinal: Yes: Normal Bowel Sounds, Soft Cardiovascular: Yes: Regular Rate and Rhythm JVD: No Carotid Bruit: No Heart Sounds: Yes: S1, S2 Murmur: Yes: Systolic Murmur, Grade 1 Edema: No - Other Data Labs, Other Data: CBC, BMP 04/08/19 06:54 04/08/19 06:54 INR, PTT INR 1.01 (0.83-1.09) 04/07/19 05:05 Troponin, BNP 04/07/19 13:35 Troponin I < 0.02 Troponin, BNP 04/07/19 13:35 Troponin I < 0.02 SR @ 87 1st deg AVB IVCD Ejection Fraction %: LVEF < 40 % Imaging - Results Chest X-ray: Report Reviewed (NAD) EKG: Report Reviewed (SB@87 1st deg AVB, IVCD) Problem List - Problems (1) Congestive heart failure Code(s): I50.9 - HEART FAILURE, UNSPECIFIED Qualifiers: Heart failure type: combined systolic and diastolic Heart failure chronicity: acute on chronic Qualified Code(s): I50.43 - Acute on chronic combined systolic (congestive) and diastolic (congestive) heart failure (2) Acute on chronic renal insufficiency Code(s): N28.9 - DISORDER OF KIDNEY AND URETER, UNSPECIFIED; N18.9 - CHRONIC KIDNEY DISEASE, UNSPECIFIED (3) CAD (coronary artery disease) Code(s): I25.10 - ATHSCL HEART DISEASE OF [place] CORONARY ARTERY W/O ANG PCTRS Qualifiers: Coronary Disease-Associated Artery/Lesion type: [place] artery [place] vs. transplanted heart: [place] heart Associated angina: without angina Qualified Code(s): I25.10 - Atherosclerotic heart disease of [place] coronary artery without angina pectoris (4) CKD (chronic kidney disease) stage 3, GFR 30-59 ml/min Code(s): N18.3 - CHRONIC KIDNEY DISEASE, STAGE 3 (MODERATE) (5) Gait instability Code(s): R26.81 - UNSTEADINESS ON FEET (6) History of percutaneous coronary intervention Code(s): Z98.890 - OTHER SPECIFIED POSTPROCEDURAL STATES (7) Hx of CABG Code(s): Z95.1 - PRESENCE OF AORTOCORONARY BYPASS GRAFT (8) Hyperlipidemia Code(s): E78.5 - HYPERLIPIDEMIA, UNSPECIFIED Qualifiers: Hyperlipidemia type: pure hypercholesterolemia Qualified Code(s): E78.00 - Pure hypercholesterolemia, unspecified; E78.0 - Pure hypercholesterolemia (9) ICD (implantable cardioverter-defibrillator) in place Code(s): Z95.810 - PRESENCE OF AUTOMATIC (IMPLANTABLE) CARDIAC DEFIBRILLATOR (10) NYHA class 2 acute on chronic systolic heart failure Code(s): I50.23 - ACUTE ON CHRONIC SYSTOLIC (CONGESTIVE) HEART FAILURE (11) Orthostasis Code(s): I95.1 - ORTHOSTATIC HYPOTENSION (12) PVD (peripheral vascular disease) Code(s): I73.9 - PERIPHERAL VASCULAR DISEASE, UNSPECIFIED (13) Type 2 diabetes mellitus Code(s): E11.9 - TYPE 2 DIABETES MELLITUS WITHOUT COMPLICATIONS Qualifiers: (14) Acute decompensated heart failure Code(s): I50.9 - HEART FAILURE, UNSPECIFIED Assessment/Plan 1. Acute on chronic LV systolic heart failure (ischemic cardiomyopathy EF 25-30% ) improving 2. CAD s/p [place], CABG, PCI/stents, angina pectoris 3. s/p ICD 4. HTN 5. Hypercholesterolemia 6. Type 2 DM 7. Acute on CKD stage 3 due to hemodynamic alterations 8. PAD s/p fem-pop bypass, [employer] 9. COPD 10. PUD s/p Bilroth II gastrectomy 11. Achalasia s/p Heller's myomectomy 12. Gout 13. Kidney stones 14. Orthostatic hypotension on Northera 15. Gait disturbance PLAN: 1. IV diuresis with monitor diuretic response, renal fxn and electrolytes 2. Entresto bid held pending renal fxn recovery, continue Plavix 75 qd, Coreg 3.125 bid, Crestor 20 qd 3. BD as needed, PT for gait training with walker assistance 4. Dysphagia diet per S&S 5. Thank you for consultative opportunity
--- NOTE | 2019-04-08 18:59 | PN ---
Physical Exam: SUBJECTIVE: Patient seen and examined at the bedside. on 2 liters of oxygen support, overall feels well, denies chest pain OBJECTIVE: Patient is a 78 year old male who comes to the ED for worsening shortness of breath despite home inhalers. Reports a productive cough for several months. His other past medical history includes chronic systolic heart failure, CAD, [place] , CABG, PCI/stents, AICD, HTN, hyperlipidemia, PAD, fem-pop bypass, type 2 DM, asthma/COPD, PUD, Bilroth II gastrectomy, achalasia, Heller's myomectomy, gout, kidney stones, stage 3 CKD, BPH, chronic constipation. Period Temp Pulse Resp BP Sys/Garcia Pulse Ox Last 24 Hr 97.7 F-98.4 F 57-86 16-20 106-134/51-59 97-100 GENERAL: The patient is awake, alert, and fully oriented, in no acute distress. HEAD: Normal with no signs of trauma. EYES: PERRL, extraocular movements intact, sclera anicteric, conjunctiva clear. No ptosis. ENT: Ears normal, nares patent, oropharynx clear without exudates, moist mucous membranes. NECK: Trachea midline, full range of motion, supple. LUNGS: Breath sounds diminished bilaterally HEART: Regular rate and rhythm ABDOMEN: Soft, nontender, nondistended, normoactive bowel sounds, no guarding, no rebound, no hepatosplenomegaly, no masses. EXTREMITIES: no edema. NEUROLOGICAL: Normal speech, gait not observed. PSYCH: Normal mood, normal affect. SKIN: Warm, dry, normal turgor, no rashes or lesions noted Laboratory Results - last 24 hr 04/07/19 04/07/19 04/08/19 15:00 21:21 06:12 WBC RBC Hgb Hct MCV MCH MCHC RDW Plt Count MPV Sodium Potassium Chloride Carbon Dioxide Anion Gap BUN Creatinine Est GFR (CKD-EPI)AfAm Est GFR (CKD-EPI)NonAf POC Glucometer 218 90 Random Glucose Calcium Phosphorus Magnesium U Pathogenic Cast Auto Negative U Sm Round Cell (Auto) Negative 04/08/19 04/08/19 04/08/19 06:54 06:54 12:04 WBC 6.2 RBC 3.76 L Hgb 10.2 L Hct 30.2 L MCV 80.2 MCH 27.1 MCHC 33.7 RDW 17.1 H Plt Count 151 MPV 7.9 Sodium 144 Potassium 4.0 Chloride 115 H Carbon Dioxide 24 Anion Gap 5 L BUN 35.6 H Creatinine 1.5 H Est GFR (CKD-EPI)AfAm 51.67 Est GFR (CKD-EPI)NonAf 44.58 POC Glucometer 146 Random Glucose 88 Calcium 8.5 Phosphorus 3.4 Magnesium 2.0 U Pathogenic Cast Auto U Sm Round Cell (Auto) 04/08/19 17:06 WBC RBC Hgb Hct MCV MCH MCHC RDW Plt Count MPV Sodium Potassium Chloride Carbon Dioxide Anion Gap BUN Creatinine Est GFR (CKD-EPI)AfAm Est GFR (CKD-EPI)NonAf POC Glucometer 161 Random Glucose Calcium Phosphorus Magnesium U Pathogenic Cast Auto U Sm Round Cell (Auto) Active Medications Generic Name Dose Route Start Last Admin Trade Name Freq PRN Reason Stop Dose Admin Albuterol Sulfate 1 amp 04/07/19 18:55 Ventolin 0.083% Nebulizer Soln - NEB Q4H PRN SHORT OF BREATH/WHEEZING Allopurinol 100 mg 04/07/19 22:00 04/08/19 09:34 Zyloprim - PO 100 mg BID KADEEM Administration Budesonide/Formoterol Fumarate 2 puff 04/07/19 22:00 04/08/19 09:34 Symbicort 160/4.5mcg - IH 2 puff BID KADEEM Administration Carvedilol 3.125 mg 04/07/19 22:00 04/08/19 09:29 Coreg - PO 3.125 mg BID KADEEM Administration Clopidogrel Bisulfate 75 mg 04/08/19 10:00 04/08/19 09:34 Plavix - PO 75 mg DAILY KADEEM Administration Escitalopram Oxalate 20 mg 04/08/19 10:00 04/08/19 09:34 Lexapro - PO 20 mg DAILY KADEEM Administration Heparin Sodium (Porcine) 5,000 unit 04/08/19 22:00 Heparin - SQ BID KADEEM Insulin Aspart 1 vial 04/07/19 22:00 04/08/19 17:08 Novolog Vial Sliding Scale - SQ 2 units ACHS KADEEM Administration Protocol Insulin Detemir 10 units 04/07/19 22:00 04/07/19 21:26 Levemir Vial SQ 10 units HS KADEEM Administration Melatonin 10 mg 04/07/19 22:00 04/07/19 21:23 Melatonin PO 10 mg HS KADEEM Administration Non-Formulary Medication 100 mg 04/08/19 10:00 Droxidopa [Northera] PO DAILY KADEEM Pantoprazole Sodium 40 mg 04/08/19 10:00 04/08/19 09:34 Protonix - PO 40 mg DAILY KADEEM Administration Rosuvastatin Calcium 20 mg 04/07/19 22:00 04/07/19 21:23 Crestor - PO 20 mg HS KADEEM Administration Tamsulosin HCl 0.4 mg 04/08/19 08:30 04/08/19 08:11 Flomax - PO 0.4 mg DAILY@0830 KADEEM Administration ASSESSMENT/PLAN: Problem List - Problems (1) Shortness of breath Assessment/Plan: shortness of breath in the setting of acute on chronic systolic heart failure On tele, troponins negative. monitor intake and output monitor daily weights cardiology following Code(s): R06.02 - SHORTNESS OF BREATH (2) Acute kidney injury Assessment/Plan: creatinine elevated on admission, baseline 1.2. entresto on hold. monitor daily labs. Code(s): N17.9 - ACUTE KIDNEY FAILURE, UNSPECIFIED (3) Congestive heart failure Assessment/Plan: Acute on chronic systolic heart failure secondary to ischemic cardiomyopathy monitor on tele troponins negative x 2 Entresto on hold for APRYL Code(s): I50.9 - HEART FAILURE, UNSPECIFIED Qualifiers: Heart failure type: combined systolic and diastolic Heart failure chronicity: acute on chronic Qualified Code(s): I50.43 - Acute on chronic combined systolic (congestive) and diastolic (congestive) heart failure (4) Acute on chronic diastolic CHF (congestive heart failure) Code(s): I50.33 - ACUTE ON CHRONIC DIASTOLIC (CONGESTIVE) HEART FAILURE (5) Dyspnea Assessment/Plan: on 2 liters of nasal cannula, not home oxygen dependent Code(s): R06.00 - DYSPNEA, UNSPECIFIED Qualifiers: Dyspnea type: shortness of breath Qualified Code(s): R06.02 - Shortness of breath; R06.00 - Dyspnea, unspecified; R06.01 - Orthopnea (6) Type 2 diabetes mellitus Code(s): E11.9 - TYPE 2 DIABETES MELLITUS WITHOUT COMPLICATIONS (7) COPD (chronic obstructive pulmonary disease) Assessment/Plan: not in acute exacerbation. on 2 liters of nasal cannula continue home inhalers Code(s): J44.9 - CHRONIC OBSTRUCTIVE PULMONARY DISEASE, UNSPECIFIED (8) CAD (coronary artery disease) Assessment/Plan: continue Plavix 75 qd, Coreg 3.125 bid, Crestor 20 qd Code(s): I25.10 - ATHSCL HEART DISEASE OF [place] CORONARY ARTERY W/O ANG PCTRS (9) Dysphagia Assessment/Plan: difficulty with swallowing and reports of food getting stuck and cough with meals. Patient with history of esophageal dysphagia and had an EGD on 08/2018 and no stricture seen. speech and swallow following GI consulted for esophageal dysphagia Code(s): R13.10 - DYSPHAGIA, UNSPECIFIED (10) Orthostatic hypotension Assessment/Plan: on droxidopa Code(s): I95.1 - ORTHOSTATIC HYPOTENSION Visit type - Emergency Visit Emergency Visit: Yes ED Registration Date: 04/07/19 Care time: The patient presented to the Emergency Department on the above date and was hospitalized for further evaluation of their emergent condition. - New Patient This patient is new to me today: No - Critical Care Critical Care patient: No - Discharge Referral Referred to [facility] No
[2019-04-08] MEDS: MELATONIN 5 MG TABLETS PO SCH (21:58)
[2019-04-08] MEDS: ROSUVASTATIN CA 20 MG TABLET (FP) PO SCH (21:58)
[2019-04-08] MEDS: INSULIN (LEVEMIR) 100 UNITS/ML UNITS SQ SCH (21:58)
[2019-04-09] MEDS: INSULIN SLIDING SCALE (NOVOLOG) 1 VIAL SQ SCH ×4 (06:42→22:36)
[2019-04-09 07:48] LABS: BASO % 0.7 % (0-2.0); EOS % 3.5 % (0-4.5); HEMATOCRIT 29.4 % (35.4-49); HEMOGLOBIN 9.9 GM/dL (11.7-16.9); LYMPH % 13.9 % (8-40); MCH 26.8 pg (25.7-33.7); MCHC 33.7 g/dl (32.0-35.9); MEAN CELL VOLUME 79.5 fl (80-96); MEAN PLT VOLUME 7.9 fl (7.5-11.1); NEUT % 72.9 % (42.8-82.8); PLATELET COUNT 145 K/MM3 (134-434); WHITE BLOOD COUNT 5.4 K/mm3 (4.0-10.0)
[2019-04-09 08:17] LABS: ALBUMIN 2.8 g/dl (3.4-5.0); BILIRUBIN,TOTAL 0.4 mg/dL (0.2-1); BLOOD UREA NITROGEN 29.6 mg/dL (7-18); CALCIUM 8.9 mg/dL (8.5-10.1); CREATININE 1.3 mg/dL (0.55-1.3); POTASSIUM 4.5 mmol/L (3.5-5.1)
--- NOTE | 2019-04-09 08:36 | CON.GI ---
Consult Consult Specialty:: covering for Dr Hassan Reason for Consultation:: DYSPHAGIA - History of Present Illness History of Present Illness: 78yo M hx systolic CHF (EF 25-30%), s/p ICD, CAD s/p CABG (triple), PCI (4 stents, last PCI 2-3 years ago), PAD s/p fem-pop bypass, IDDM, achalasia s/p Heller's myotomy, PUD s/p partial gastrectomy (Bilroth Type II) years ago, HTN, HLD, COPD (>60 pack year smoking history, quit recently), kidney stones s/p surgery, gout, s/p appendectomy, BIBA from home with worsening SOB and chills x2 days. Soft BP 108/90, slight tachycardia 90s, afebrile, O2 sat 93% on 2L NC O2, normal RR. EKG--first degree AV block Patient has mild dysphagia to solids and liquids - Past Medical History Cardio/Vascular: Yes: CAD, CHF, HTN, Hyperlipdemia, [place] Pulmonary: Yes: Asthma, Bronchitis, COPD, Pneumonia Gastrointestinal: Yes: Constipation Renal/: Yes: BPH Musculoskeletal: Yes: Chronic low back pain, Osteoarthritis Endocrine: Yes: Diabetes Mellitus - Past Surgical History Past Surgical History: Yes: CABG, Cholecystectomy - Alcohol/Substance Use Hx Alcohol Use: Yes History of Substance Use: reports: None - Smoking History Smoking history: Former smoker Have you smoked in the past 12 months: No Aproximately how many cigarettes per day: 30 If you are a former smoker, when did you quit?: 1 year ago - Social History Usual Living Arrangement: With Spouse ADL: Independent Occupation: retired: worked for [employer] History of Recent Travel: No Home Medications - Allergies Allergies/Adverse Reactions: Allergies Allergy/AdvReac Type Severity Reaction Status Date / Time pregabalin [From Lyrica] Allergy Severe Verified 04/07/19 03:45 - Home Medications Home Medications: Ambulatory Orders Carvedilol 3.125 mg PO BID 12/08/18 Escitalopram Oxalate [Lexapro -] 20 mg PO DAILY 12/08/18 Rosuvastatin Calcium [Crestor] 20 mg PO HS 12/08/18 Insulin Glargine,Hum.rec.anlog [Lantus Solostar PEN -] 58 units SQ HS 01/11/19 Tamsulosin HCl 0.4 mg PO DAILY 01/11/19 Albuterol 0.083% Nebulizer Fatuma [Ventolin 0.083% Nebulizer Soln -] 1 amp NEB ONCE 04/07/19 Clopidogrel Bisulfate [Clopidogrel] 75 mg PO DAILY 04/07/19 Droxidopa [Northera] 100 mg PO DAILY 04/07/19 Insulin Lispro [Humalog Ponce Kwikpen] 0 unit SQ ASDIR 04/07/19 Melatonin 10 mg PO HS 04/07/19 Sacubitril/Valsartan [Entresto 24 mg-26 mg Tablet] 1 each PO DAILY 04/07/19 Physical Exam-GI Vital Signs: Vital Signs Temperature 98.3 F 04/09/19 08:27 Pulse Rate 62 04/09/19 08:27 Respiratory Rate 20 04/09/19 08:27 Blood Pressure 124/58 L 04/09/19 08:27 O2 Sat by Pulse Oximetry (%) 97 04/08/19 20:44 Constitutional: Yes: Well Nourished Eyes: Yes: Conjunctiva Clear, Occular Prosthesis HENT: Yes: Tonsillar Exudate Cardiovascular: Yes: Regular Rate and Rhythm Respiratory: Yes: CTA Bilaterally ...Palpate: Yes: Soft. No: Firm/Rigid, Guarding, Hepatomegaly, Mass, Pulsatile Mass, Splenomegaly Labs: CBC, BMP 04/09/19 06:10 04/09/19 06:10 INR, PTT INR 1.01 (0.83-1.09) 04/07/19 05:05 Problem List - Problems (1) Dysphagia Assessment/Plan: secondary to achalasia R> will consider EGD with Botox injection once medically cleared made aware to follow up with Dr Hassan Code(s): R13.10 - DYSPHAGIA, UNSPECIFIED
[2019-04-09] MEDS ORDERED: ESCITALOPRAM OXALATE 10 MG TABLET (FP) ONE (09:27)
[2019-04-09] MEDS: ALLOPURINOL 100 MG TABLET (FP) PO SCH ×2 (09:34→22:39)
[2019-04-09] MEDS: TAMSULOSIN HCL 0.4 MG CAP PO SCH (09:34)
[2019-04-09] MEDS: PANTOPRAZOLE 40 MG TABLET (FP) PO SCH (09:34)
[2019-04-09] MEDS: CARVEDILOL 3.125 MG TABLET (FP) PO SCH ×2 (09:34→22:38)
[2019-04-09] MEDS: CLOPIDOGREL BISULFATE 75 MG TABLET (FP) PO SCH (09:34)
[2019-04-09] MEDS: HEPARIN NA (PORCINE) 5,000 UNITS/ML 1ML VIAL SQ SCH ×2 (09:36→22:40)
[2019-04-09] MEDS: ESCITALOPRAM OXALATE 20 MG TABLET (FP) PO SCH (09:41)
[2019-04-09] MEDS: BUDESONIDE/FORMETEROL FUMARATE 160/4.5 mcg INHALER IH SCH ×2 (09:41→22:39)
--- NOTE | 2019-04-09 13:37 | PN ---
Progress Note, Physician History of Present Illness: Dyspnea, productive cough, inadvertent weight gain improving with diuresis. Tolerated PT. - Current Medication List Current Medications: Active Medications Albuterol Sulfate (Ventolin 0.083% Nebulizer Soln -) 1 amp NEB Q4H PRN PRN Reason: SHORT OF BREATH/WHEEZING Allopurinol (Zyloprim -) 100 mg PO BID [facility] Last Admin: 04/09/19 09:34 Dose: 100 mg Budesonide/Formoterol Fumarate (Symbicort 160/4.5mcg -) 2 puff IH BID [facility] Last Admin: 04/09/19 09:41 Dose: 2 puff Carvedilol (Coreg -) 3.125 mg PO BID [facility] Last Admin: 04/09/19 09:34 Dose: 3.125 mg Clopidogrel Bisulfate (Plavix -) 75 mg PO DAILY [facility] Last Admin: 04/09/19 09:34 Dose: 75 mg Escitalopram Oxalate (Lexapro -) 20 mg PO DAILY [facility] Last Admin: 04/09/19 09:41 Dose: 20 mg Heparin Sodium (Porcine) (Heparin -) 5,000 unit SQ BID [facility] Last Admin: 04/09/19 09:36 Dose: 5,000 unit Insulin Aspart (Novolog Vial Sliding Scale -) 1 vial SQ [facility]; Protocol Last Admin: 04/09/19 11:30 Dose: Not Given Insulin Detemir (Levemir Vial) 10 units SQ [facility] Last Admin: 04/08/19 21:58 Dose: 10 units Melatonin (Melatonin) 10 mg PO HS [facility] Last Admin: 04/08/19 21:58 Dose: 10 mg Non-Formulary Medication (Droxidopa [Northera]) 100 mg PO DAILY [facility] Pantoprazole Sodium (Protonix -) 40 mg PO DAILY [facility] Last Admin: 04/09/19 09:34 Dose: 40 mg Rosuvastatin Calcium (Crestor -) 20 mg PO HS [facility] Last Admin: 04/08/19 21:58 Dose: 20 mg Tamsulosin HCl (Flomax -) 0.4 mg PO DAILY@0830 [facility] Last Admin: 04/09/19 09:34 Dose: 0.4 mg - Objective Vital Signs: Vital Signs Temperature 98.3 F 04/09/19 08:27 Pulse Rate 62 04/09/19 08:27 Respiratory Rate 20 04/09/19 09:00 Blood Pressure 124/58 L 04/09/19 08:27 O2 Sat by Pulse Oximetry (%) 100 04/09/19 09:00 Constitutional: Yes: No Distress, Calm, Thin Neck: Yes: Supple, Tenderness Respiratory: Yes: Regular, CTA Bilaterally Gastrointestinal: Yes: Normal Bowel Sounds, Soft Edema: No Labs: CBC, BMP 04/09/19 06:10 04/09/19 06:10 INR, PTT INR 1.01 (0.83-1.09) 04/07/19 05:05 Problem List - Problems (1) Congestive heart failure Code(s): I50.9 - HEART FAILURE, UNSPECIFIED Qualifiers: Heart failure type: combined systolic and diastolic Heart failure chronicity: acute on chronic Qualified Code(s): I50.43 - Acute on chronic combined systolic (congestive) and diastolic (congestive) heart failure (2) Acute on chronic renal insufficiency Code(s): N28.9 - DISORDER OF KIDNEY AND URETER, UNSPECIFIED; N18.9 - CHRONIC KIDNEY DISEASE, UNSPECIFIED (3) CAD (coronary artery disease) Code(s): I25.10 - ATHSCL HEART DISEASE OF [place] CORONARY ARTERY W/O ANG PCTRS Qualifiers: Coronary Disease-Associated Artery/Lesion type: [place] artery [place] vs. transplanted heart: [place] heart Associated angina: without angina Qualified Code(s): I25.10 - Atherosclerotic heart disease of [place] coronary artery without angina pectoris (4) CKD (chronic kidney disease) stage 3, GFR 30-59 ml/min Code(s): N18.3 - CHRONIC KIDNEY DISEASE, STAGE 3 (MODERATE) (5) Gait instability Code(s): R26.81 - UNSTEADINESS ON FEET (6) History of percutaneous coronary intervention Code(s): Z98.890 - OTHER SPECIFIED POSTPROCEDURAL STATES (7) Hx of CABG Code(s): Z95.1 - PRESENCE OF AORTOCORONARY BYPASS GRAFT (8) Hyperlipidemia Code(s): E78.5 - HYPERLIPIDEMIA, UNSPECIFIED Qualifiers: Hyperlipidemia type: pure hypercholesterolemia Qualified Code(s): E78.00 - Pure hypercholesterolemia, unspecified; E78.0 - Pure hypercholesterolemia (9) ICD (implantable cardioverter-defibrillator) in place Code(s): Z95.810 - PRESENCE OF AUTOMATIC (IMPLANTABLE) CARDIAC DEFIBRILLATOR (10) NYHA class 2 acute on chronic systolic heart failure Code(s): I50.23 - ACUTE ON CHRONIC SYSTOLIC (CONGESTIVE) HEART FAILURE (11) Orthostasis Code(s): I95.1 - ORTHOSTATIC HYPOTENSION (12) PVD (peripheral vascular disease) Code(s): I73.9 - PERIPHERAL VASCULAR DISEASE, UNSPECIFIED (13) Type 2 diabetes mellitus Code(s): E11.9 - TYPE 2 DIABETES MELLITUS WITHOUT COMPLICATIONS Qualifiers: (14) Acute decompensated heart failure Code(s): I50.9 - HEART FAILURE, UNSPECIFIED Assessment/Plan 1. Acute on chronic LV systolic heart failure (ischemic cardiomyopathy EF 25-30% ) improving 2. CAD s/p MD, CABG, PCI/stents, angina pectoris 3. s/p ICD 4. HTN 5. Hypercholesterolemia 6. Type 2 DM 7. Acute on CKD stage 3 due to hemodynamic alterations resolving 8. PAD s/p fem-pop bypass, [employer] 9. COPD 10. PUD s/p Bilroth II gastrectomy 11. Achalasia s/p Heller's myomectomy 12. Gout 13. Kidney stones 14. Orthostatic hypotension on Northera 15. Gait disturbance PLAN: 1. Diuresis as needed with monitor diuretic response, renal fxn and electrolytes 2. Resume Entresto 24/26 bid given renal fxn recovery, continue Plavix 75 qd, Coreg 3.125 bid, Crestor 20 qd 3. BD as needed, PT for gait training with walker assistance 4. Dysphagia diet per S&S, DVT prophylaxis
[2019-04-09] MEDS ORDERED: PT OWN MED DRAWER 7, Y5N ONE ×3 (13:49→22:28)
[2019-04-09] MEDS: SACUBITRIL/VALSARTAN 24 MG-26 MG TABLET PO SCH ×2 (15:30→22:38)
--- NOTE | 2019-04-09 18:00 | PN ---
Physical Exam: SUBJECTIVE: Patient seen and examined. tolerating room air, denies shortness of breath OBJECTIVE: Patient is a 78 year old male who comes to the ED for worsening shortness of breath despite home inhalers. Reports a productive cough for several months. His other past medical history includes chronic systolic heart failure, CAD, [place] , CABG, PCI/stents, AICD, HTN, hyperlipidemia, PAD, fem-pop bypass, type 2 DM, asthma/COPD, PUD, Bilroth II gastrectomy, achalasia, Heller's myomectomy, gout, kidney stones, stage 3 CKD, BPH, chronic constipation. Vital Signs Period Temp Pulse Resp BP Sys/Garcia Pulse Ox Last 24 Hr 98.0 F-98.3 F 61-74 18-20 124-129/50-58 97-100 GENERAL: The patient is awake, alert, and fully oriented, in no acute distress. HEAD: Normal with no signs of trauma. EYES: PERRL, extraocular movements intact, sclera anicteric, conjunctiva clear. No ptosis. ENT: Ears normal, nares patent, oropharynx clear without exudates, moist mucous membranes. NECK: Trachea midline, full range of motion, supple. LUNGS: diminished bilaterally, no wheezing HEART: Regular rate and rhythm ABDOMEN: Soft, nontender, nondistended, normoactive bowel sounds, no guarding, no rebound, no hepatosplenomegaly, no masses. EXTREMITIES: no edema. NEUROLOGICAL: Normal speech, gait not observed. PSYCH: Normal mood, normal affect. SKIN: Warm, dry, normal turgor, no rashes or lesions noted Laboratory Results - last 24 hr 04/08/19 04/09/19 04/09/19 21:56 06:10 06:10 WBC 5.4 RBC 3.70 L Hgb 9.9 L Hct 29.4 L MCV 79.5 L MCH 26.8 MCHC 33.7 RDW 17.0 H Plt Count 145 MPV 7.9 Absolute Neuts (auto) 4.0 Neutrophils % 72.9 Lymphocytes % 13.9 D Monocytes % 9.0 Eosinophils % 3.5 D Basophils % 0.7 Nucleated RBC % 0 Sodium 142 Potassium 4.5 Chloride 112 H Carbon Dioxide 25 Anion Gap 5 L BUN 29.6 H Creatinine 1.3 Est GFR (CKD-EPI)AfAm 61.43 Est GFR (CKD-EPI)NonAf 53.00 POC Glucometer 191 Random Glucose 90 Calcium 8.9 Magnesium 2.0 Total Bilirubin 0.4 AST 14 L ALT 22 Alkaline Phosphatase 72 Total Protein 6.0 L Albumin 2.8 L 04/09/19 04/09/19 04/09/19 06:40 11:26 16:44 WBC RBC Hgb Hct MCV MCH MCHC RDW Plt Count MPV Absolute Neuts (auto) Neutrophils % Lymphocytes % Monocytes % Eosinophils % Basophils % Nucleated RBC % Sodium Potassium Chloride Carbon Dioxide Anion Gap BUN Creatinine Est GFR (CKD-EPI)AfAm Est GFR (CKD-EPI)NonAf POC Glucometer 102 147 142 Random Glucose Calcium Magnesium Total Bilirubin AST ALT Alkaline Phosphatase Total Protein Albumin Active Medications Generic Name Dose Route Start Last Admin Trade Name Freq PRN Reason Stop Dose Admin Albuterol Sulfate 1 amp 04/07/19 18:55 Ventolin 0.083% Nebulizer Soln - NEB Q4H PRN SHORT OF BREATH/WHEEZING Allopurinol 100 mg 04/07/19 22:00 04/09/19 09:34 Zyloprim - PO 100 mg BID KADEEM Administration Budesonide/Formoterol Fumarate 2 puff 04/07/19 22:00 04/09/19 09:41 Symbicort 160/4.5mcg - IH 2 puff BID KADEEM Administration Carvedilol 3.125 mg 04/07/19 22:00 04/09/19 09:34 Coreg - PO 3.125 mg BID KADEEM Administration Clopidogrel Bisulfate 75 mg 04/08/19 10:00 04/09/19 09:34 Plavix - PO 75 mg DAILY KADEEM Administration Escitalopram Oxalate 20 mg 04/08/19 10:00 04/09/19 09:41 Lexapro - PO 20 mg DAILY KADEEM Administration Heparin Sodium (Porcine) 5,000 unit 04/08/19 22:00 04/09/19 09:36 Heparin - SQ 5,000 unit BID KADEEM Administration Insulin Aspart 1 vial 04/07/19 22:00 04/09/19 17:10 Novolog Vial Sliding Scale - SQ Not Given ACHS [facility] Protocol Insulin Detemir 10 units 04/07/19 22:00 04/08/19 21:58 Levemir Vial SQ 10 units HS KADEEM Administration Melatonin 10 mg 04/07/19 22:00 04/08/19 21:58 Melatonin PO 10 mg HS KADEEM Administration Non-Formulary Medication 100 mg 04/08/19 10:00 Droxidopa [Northera] PO DAILY KADEEM Pantoprazole Sodium 40 mg 04/08/19 10:00 04/09/19 09:34 Protonix - PO 40 mg DAILY KADEEM Administration Rosuvastatin Calcium 20 mg 04/07/19 22:00 04/08/19 21:58 Crestor - PO 20 mg HS KADEEM Administration Sacubitril/Valsartan 1 tab 04/09/19 13:45 04/09/19 15:30 Entresto 24 Mg-26 Mg Tablet PO 1 tab BID KADEEM Administration Tamsulosin HCl 0.4 mg 04/08/19 08:30 04/09/19 09:34 Flomax - PO 0.4 mg DAILY@0830 KADEEM Administration ASSESSMENT/PLAN: Problem List - Problems (1) Shortness of breath Assessment/Plan: shortness of breath in the setting of acute on chronic systolic heart failure On tele, troponins negative. monitor intake and output monitor daily weights cardiology following Code(s): R06.02 - SHORTNESS OF BREATH (2) Acute kidney injury Assessment/Plan: creatinine elevated on admission, baseline 1.2. entresto restarted. monitor daily labs. Code(s): N17.9 - ACUTE KIDNEY FAILURE, UNSPECIFIED (3) Congestive heart failure Assessment/Plan: Acute on chronic systolic heart failure secondary to ischemic cardiomyopathy monitor on tele troponins negative x 2 on Entresto Code(s): I50.9 - HEART FAILURE, UNSPECIFIED Qualifiers: Heart failure type: combined systolic and diastolic Heart failure chronicity: acute on chronic Qualified Code(s): I50.43 - Acute on chronic combined systolic (congestive) and diastolic (congestive) heart failure (4) Acute on chronic diastolic CHF (congestive heart failure) Code(s): I50.33 - ACUTE ON CHRONIC DIASTOLIC (CONGESTIVE) HEART FAILURE (5) Dyspnea Assessment/Plan: on 2 liters of nasal cannula, not home oxygen dependent wean off oxygen, respiratory pre and post prior to d/c Code(s): R06.00 - DYSPNEA, UNSPECIFIED Qualifiers: Dyspnea type: shortness of breath Qualified Code(s): R06.02 - Shortness of breath; R06.00 - Dyspnea, unspecified; R06.01 - Orthopnea (6) Type 2 diabetes mellitus Assessment/Plan: monitor bgms, novolog ss Code(s): E11.9 - TYPE 2 DIABETES MELLITUS WITHOUT COMPLICATIONS (7) COPD (chronic obstructive pulmonary disease) Assessment/Plan: not in acute exacerbation. on 2 liters of nasal cannula continue home inhalers Code(s): J44.9 - CHRONIC OBSTRUCTIVE PULMONARY DISEASE, UNSPECIFIED (8) CAD (coronary artery disease) Assessment/Plan: continue Plavix 75 qd, Coreg 3.125 bid, Crestor 20 qd Code(s): I25.10 - ATHSCL HEART DISEASE OF [place] CORONARY ARTERY W/O ANG PCTRS (9) Dysphagia Assessment/Plan: difficulty with swallowing and reports of food getting stuck and cough with meals. Patient with history of esophageal dysphagia and had an EGD on 08/2018 and no stricture seen. speech and swallow following GI consulted for esophageal dysphagia Code(s): R13.10 - DYSPHAGIA, UNSPECIFIED (10) Orthostatic hypotension Assessment/Plan: on droxidopa Code(s): I95.1 - ORTHOSTATIC HYPOTENSION Visit type - Emergency Visit Emergency Visit: Yes ED Registration Date: 04/07/19 Care time: The patient presented to the Emergency Department on the above date and was hospitalized for further evaluation of their emergent condition. - New Patient This patient is new to me today: No - Critical Care Critical Care patient: No - Discharge Referral Referred to [facility] No
[2019-04-09] MEDS: INSULIN (LEVEMIR) 100 UNITS/ML UNITS SQ SCH (22:36)
[2019-04-09] MEDS: MELATONIN 5 MG TABLETS PO SCH (22:38)
[2019-04-09] MEDS: ROSUVASTATIN CA 20 MG TABLET (FP) PO SCH (22:39)
[2019-04-10] MEDS: INSULIN SLIDING SCALE (NOVOLOG) 1 VIAL SQ SCH ×4 (06:21→22:34)
[2019-04-10 07:24] LABS: BASO % 0.7 % (0-2.0); EOS % 2.5 % (0-4.5); HEMATOCRIT 30.3 % (35.4-49); LYMPH % 18.5 % (8-40); MCH 26.4 pg (25.7-33.7); MCHC 33.1 g/dl (32.0-35.9); MEAN CELL VOLUME 79.8 fl (80-96); MEAN PLT VOLUME 8.1 fl (7.5-11.1); NEUT % 67.3 % (42.8-82.8); PLATELET COUNT 150 K/MM3 (134-434); RBC 3.79 M/mm3 (4.00-5.60); RDW 17.4 % (11.9-15.9); WHITE BLOOD COUNT 5.6 K/mm3 (4.0-10.0)
[2019-04-10 07:48] LABS: BLOOD UREA NITROGEN 27.9 mg/dL (7-18); CREATININE 1.4 mg/dL (0.55-1.3); POTASSIUM 4.8 mmol/L (3.5-5.1)
[2019-04-10 07:49] LABS: BILIRUBIN,TOTAL 0.5 mg/dL (0.2-1); CALCIUM 8.7 mg/dL (8.5-10.1); TOT PROT 6.2 g/dl (6.4-8.2)
[2019-04-10] MEDS ORDERED: ESCITALOPRAM OXALATE 10 MG TABLET (FP) ONE (10:24)
[2019-04-10] MEDS: TAMSULOSIN HCL 0.4 MG CAP PO SCH (10:52)
[2019-04-10] MEDS: ESCITALOPRAM OXALATE 20 MG TABLET (FP) PO SCH (10:52)
[2019-04-10] MEDS: CLOPIDOGREL BISULFATE 75 MG TABLET (FP) PO SCH (10:53)
[2019-04-10] MEDS: HEPARIN NA (PORCINE) 5,000 UNITS/ML 1ML VIAL SQ SCH ×2 (10:53→22:34)
[2019-04-10] MEDS: CARVEDILOL 3.125 MG TABLET (FP) PO SCH ×2 (10:53→22:36)
[2019-04-10] MEDS: PANTOPRAZOLE 40 MG TABLET (FP) PO SCH (10:53)
[2019-04-10] MEDS: ALLOPURINOL 100 MG TABLET (FP) PO SCH ×2 (10:53→22:36)
[2019-04-10] MEDS: SACUBITRIL/VALSARTAN 24 MG-26 MG TABLET PO SCH ×2 (10:53→22:35)
[2019-04-10] MEDS: BUDESONIDE/FORMETEROL FUMARATE 160/4.5 mcg INHALER IH SCH ×2 (10:59→22:35)
[2019-04-10] MEDS ORDERED: INSULIN SLIDING SCALE (NOVOLOG) 1 VIAL SQ ONE (12:16)
[2019-04-10] MEDS ORDERED: POLYETHYLENE GLYCOL 3350 119 GM BTL PO ONE (13:11)
[2019-04-10 13:42] VITALS: BMI 24.8
--- NOTE | 2019-04-10 18:51 | PN ---
Physical Exam: SUBJECTIVE: Patient seen and examined OBJECTIVE: Patient is a 78 year old male who comes to the ED for worsening shortness of breath despite home inhalers. Reports a productive cough for several months. His other past medical history includes chronic systolic heart failure, CAD, [place] , CABG, PCI/stents, AICD, HTN, hyperlipidemia, PAD, fem-pop bypass, type 2 DM, asthma/COPD, PUD, Bilroth II gastrectomy, achalasia, Heller's myomectomy, gout, kidney stones, stage 3 CKD, BPH, chronic constipation. Vital Signs Period Temp Pulse Resp BP Sys/Garcia Pulse Ox Last 24 Hr 99 F-99.6 F 67-85 18-18 113-152/50-56 95-96 GENERAL: The patient is awake, alert, and fully oriented, in no acute distress. HEAD: Normal with no signs of trauma. EYES: PERRL, extraocular movements intact, sclera anicteric, conjunctiva clear. No ptosis. ENT: Ears normal, nares patent, oropharynx clear without exudates, moist mucous membranes. NECK: Trachea midline, full range of motion, supple. LUNGS: diminished bilaterally, no wheezing HEART: Regular rate and rhythm ABDOMEN: Soft, nontender, nondistended, normoactive bowel sounds, no guarding, no rebound, no hepatosplenomegaly, no masses. EXTREMITIES: no edema. NEUROLOGICAL: Normal speech, gait not observed. PSYCH: Normal mood, normal affect. SKIN: Warm, dry, normal turgor, no rashes or lesions noted Laboratory Results - last 24 hr 04/09/19 04/10/19 04/10/19 22:33 05:45 05:45 WBC 5.6 RBC 3.79 L Hgb 10.0 L Hct 30.3 L MCV 79.8 L MCH 26.4 MCHC 33.1 RDW 17.4 H Plt Count 150 MPV 8.1 Absolute Neuts (auto) 3.8 Neutrophils % 67.3 Lymphocytes % 18.5 D Monocytes % 11.0 H Eosinophils % 2.5 Basophils % 0.7 Nucleated RBC % 0 Sodium 140 Potassium 4.8 Chloride 110 H Carbon Dioxide 23 Anion Gap 7 L BUN 27.9 H Creatinine 1.4 H Est GFR (CKD-EPI)AfAm 56.16 Est GFR (CKD-EPI)NonAf 48.46 POC Glucometer 147 Random Glucose 105 Calcium 8.7 Magnesium 2.0 Total Bilirubin 0.5 AST 14 L ALT 22 Alkaline Phosphatase 75 Total Protein 6.2 L Albumin 3.0 L 04/10/19 04/10/19 04/10/19 06:20 12:18 16:55 WBC RBC Hgb Hct MCV MCH MCHC RDW Plt Count MPV Absolute Neuts (auto) Neutrophils % Lymphocytes % Monocytes % Eosinophils % Basophils % Nucleated RBC % Sodium Potassium Chloride Carbon Dioxide Anion Gap BUN Creatinine Est GFR (CKD-EPI)AfAm Est GFR (CKD-EPI)NonAf POC Glucometer 127 176 146 Random Glucose Calcium Magnesium Total Bilirubin AST ALT Alkaline Phosphatase Total Protein Albumin Active Medications Generic Name Dose Route Start Last Admin Trade Name Freq PRN Reason Stop Dose Admin Albuterol Sulfate 1 amp 04/07/19 18:55 Ventolin 0.083% Nebulizer Soln - NEB Q4H PRN SHORT OF BREATH/WHEEZING Allopurinol 100 mg 04/07/19 22:00 04/10/19 10:53 Zyloprim - PO 100 mg BID [facility] Administration Budesonide/Formoterol Fumarate 2 puff 04/07/19 22:00 04/10/19 10:59 Symbicort 160/4.5mcg - IH 2 puff BID [facility] Administration Carvedilol 3.125 mg 04/07/19 22:00 04/10/19 10:53 Coreg - PO 3.125 mg BID [facility] Administration Clopidogrel Bisulfate 75 mg 04/08/19 10:00 04/10/19 10:53 Plavix - PO 75 mg DAILY [facility] Administration Escitalopram Oxalate 20 mg 04/08/19 10:00 04/10/19 10:52 Lexapro - PO 20 mg DAILY [facility] Administration Heparin Sodium (Porcine) 5,000 unit 04/08/19 22:00 04/10/19 10:53 Heparin - SQ 5,000 unit BID [facility] Administration Insulin Aspart 1 vial 04/07/19 22:00 04/10/19 16:55 Novolog Vial Sliding Scale - SQ Not Given ACHS [facility] Protocol Insulin Detemir 10 units 04/07/19 22:00 04/09/19 22:36 Levemir Vial SQ Not Given HS [facility] Melatonin 10 mg 04/07/19 22:00 04/09/19 22:38 Melatonin PO 10 mg HS [facility] Administration Non-Formulary Medication 100 mg 04/08/19 10:00 Droxidopa [Northera] PO DAILY [facility] Pantoprazole Sodium 40 mg 04/08/19 10:00 04/10/19 10:53 Protonix - PO 40 mg DAILY [facility] Administration Rosuvastatin Calcium 20 mg 04/07/19 22:00 04/09/19 22:39 Crestor - PO 20 mg HS [facility] Administration Sacubitril/Valsartan 1 tab 04/09/19 13:45 04/10/19 10:53 Entresto 24 Mg-26 Mg Tablet PO 1 tab BID [facility] Administration Tamsulosin HCl 0.4 mg 04/08/19 08:30 04/10/19 10:52 Flomax - PO 0.4 mg DAILY@0830 [facility] Administration ASSESSMENT/PLAN: Problem List - Problems (1) Shortness of breath Assessment/Plan: shortness of breath in the setting of acute on chronic systolic heart failure On tele, troponins negative. monitor intake and output monitor daily weights cardiology following Code(s): R06.02 - SHORTNESS OF BREATH (2) Acute kidney injury Assessment/Plan: creatinine elevated on admission, baseline 1.2. entresto restarted. monitor daily labs. Code(s): N17.9 - ACUTE KIDNEY FAILURE, UNSPECIFIED (3) Congestive heart failure Assessment/Plan: Acute on chronic systolic heart failure secondary to ischemic cardiomyopathy monitor on tele troponins negative x 2 on Entresto Code(s): I50.9 - HEART FAILURE, UNSPECIFIED Qualifiers: Heart failure type: combined systolic and diastolic Heart failure chronicity: acute on chronic Qualified Code(s): I50.43 - Acute on chronic combined systolic (congestive) and diastolic (congestive) heart failure (4) Acute on chronic diastolic CHF (congestive heart failure) Code(s): I50.33 - ACUTE ON CHRONIC DIASTOLIC (CONGESTIVE) HEART FAILURE (5) Dyspnea Assessment/Plan: on 2 liters of nasal cannula, not home oxygen dependent wean off oxygen, respiratory pre and post prior to d/c Code(s): R06.00 - DYSPNEA, UNSPECIFIED Qualifiers: Dyspnea type: shortness of breath Qualified Code(s): R06.02 - Shortness of breath; R06.00 - Dyspnea, unspecified; R06.01 - Orthopnea (6) Type 2 diabetes mellitus Assessment/Plan: monitor bgms, novolog ss Code(s): E11.9 - TYPE 2 DIABETES MELLITUS WITHOUT COMPLICATIONS (7) COPD (chronic obstructive pulmonary disease) Assessment/Plan: not in acute exacerbation. on 2 liters of nasal cannula continue home inhalers Code(s): J44.9 - CHRONIC OBSTRUCTIVE PULMONARY DISEASE, UNSPECIFIED (8) CAD (coronary artery disease) Assessment/Plan: continue Plavix 75 qd, Coreg 3.125 bid, Crestor 20 qd Code(s): I25.10 - ATHSCL HEART DISEASE OF [place] CORONARY ARTERY W/O ANG PCTRS (9) Dysphagia Assessment/Plan: difficulty with swallowing and reports of food getting stuck and cough with meals. Patient with history of esophageal dysphagia and had an EGD on 08/2018 and no stricture seen. speech and swallow following GI consulted for esophageal dysphagia Code(s): R13.10 - DYSPHAGIA, UNSPECIFIED (10) Orthostatic hypotension Assessment/Plan: on droxidopa Code(s): I95.1 - ORTHOSTATIC HYPOTENSION Visit type - Emergency Visit Emergency Visit: Yes ED Registration Date: 04/07/19 Care time: The patient presented to the Emergency Department on the above date and was hospitalized for further evaluation of their emergent condition. - New Patient This patient is new to me today: No - Critical Care Critical Care patient: No - Discharge Referral Referred to [facility] Med [facility].C.: No
--- NOTE | 2019-04-10 19:07 | PN ---
Progress Note, Physician History of Present Illness: Dyspnea, productive cough, inadvertent weight gain resolved with diuresis. Tolerated PT with cane assistance. - Current Medication List Current Medications: Active Medications Albuterol Sulfate (Ventolin 0.083% Nebulizer Soln -) 1 amp NEB Q4H PRN PRN Reason: SHORT OF BREATH/WHEEZING Allopurinol (Zyloprim -) 100 mg PO BID [facility] Last Admin: 04/10/19 10:53 Dose: 100 mg Budesonide/Formoterol Fumarate (Symbicort 160/4.5mcg -) 2 puff IH BID [facility] Last Admin: 04/10/19 10:59 Dose: 2 puff Carvedilol (Coreg -) 3.125 mg PO BID [facility] Last Admin: 04/10/19 10:53 Dose: 3.125 mg Clopidogrel Bisulfate (Plavix -) 75 mg PO DAILY [facility] Last Admin: 04/10/19 10:53 Dose: 75 mg Docusate Sodium (Colace -) 100 mg PO TID [facility] Escitalopram Oxalate (Lexapro -) 20 mg PO DAILY [facility] Last Admin: 04/10/19 10:52 Dose: 20 mg Heparin Sodium (Porcine) (Heparin -) 5,000 unit SQ BID [facility] Last Admin: 04/10/19 10:53 Dose: 5,000 unit Insulin Aspart (Novolog Vial Sliding Scale -) 1 vial SQ [facility]; Protocol Last Admin: 04/10/19 16:55 Dose: Not Given Insulin Detemir (Levemir Vial) 10 units SQ [facility] Last Admin: 04/09/19 22:36 Dose: Not Given Melatonin (Melatonin) 10 mg PO [facility] Last Admin: 04/09/19 22:38 Dose: 10 mg Non-Formulary Medication (Droxidopa [Northera]) 100 mg PO DAILY [facility] Pantoprazole Sodium (Protonix -) 40 mg PO DAILY [facility] Last Admin: 04/10/19 10:53 Dose: 40 mg Rosuvastatin Calcium (Crestor -) 20 mg PO [facility] Last Admin: 04/09/19 22:39 Dose: 20 mg Sacubitril/Valsartan (Entresto 24 Mg-26 Mg Tablet) 1 tab PO BID [facility] Last Admin: 04/10/19 10:53 Dose: 1 tab Tamsulosin HCl (Flomax -) 0.4 mg PO DAILY@0830 [facility] Last Admin: 04/10/19 10:52 Dose: 0.4 mg - Objective Vital Signs: Vital Signs Temperature 99.5 F 04/10/19 13:00 Pulse Rate 85 04/10/19 13:00 Respiratory Rate 18 04/10/19 13:00 Blood Pressure 132/56 L 04/10/19 13:00 O2 Sat by Pulse Oximetry (%) 96 04/10/19 09:00 Constitutional: Yes: No Distress, Calm, Thin Neck: Yes: Supple Cardiovascular: Yes: Regular Rate and Rhythm Respiratory: Yes: Regular, CTA Bilaterally Gastrointestinal: Yes: Normal Bowel Sounds, Soft Edema: No Labs: CBC, BMP 04/10/19 05:45 04/10/19 05:45 INR, PTT INR 1.01 (0.83-1.09) 04/07/19 05:05 - ....Imaging EKG: Report Reviewed (Tele: NSR) Problem List - Problems (1) Congestive heart failure Code(s): I50.9 - HEART FAILURE, UNSPECIFIED Qualifiers: Heart failure type: combined systolic and diastolic Heart failure chronicity: acute on chronic Qualified Code(s): I50.43 - Acute on chronic combined systolic (congestive) and diastolic (congestive) heart failure (2) Acute on chronic renal insufficiency Code(s): N28.9 - DISORDER OF KIDNEY AND URETER, UNSPECIFIED; N18.9 - CHRONIC KIDNEY DISEASE, UNSPECIFIED (3) CAD (coronary artery disease) Code(s): I25.10 - ATHSCL HEART DISEASE OF [place] CORONARY ARTERY W/O ANG PCTRS Qualifiers: Coronary Disease-Associated Artery/Lesion type: [place] artery [place] vs. transplanted heart: [place] heart Associated angina: without angina Qualified Code(s): I25.10 - Atherosclerotic heart disease of [place] coronary artery without angina pectoris (4) CKD (chronic kidney disease) stage 3, GFR 30-59 ml/min Code(s): N18.3 - CHRONIC KIDNEY DISEASE, STAGE 3 (MODERATE) (5) Gait instability Code(s): R26.81 - UNSTEADINESS ON FEET (6) History of percutaneous coronary intervention Code(s): Z98.890 - OTHER SPECIFIED POSTPROCEDURAL STATES (7) Hx of CABG Code(s): Z95.1 - PRESENCE OF AORTOCORONARY BYPASS GRAFT (8) Hyperlipidemia Code(s): E78.5 - HYPERLIPIDEMIA, UNSPECIFIED Qualifiers: Hyperlipidemia type: pure hypercholesterolemia Qualified Code(s): E78.00 - Pure hypercholesterolemia, unspecified; E78.0 - Pure hypercholesterolemia (9) ICD (implantable cardioverter-defibrillator) in place Code(s): Z95.810 - PRESENCE OF AUTOMATIC (IMPLANTABLE) CARDIAC DEFIBRILLATOR (10) NYHA class 2 acute on chronic systolic heart failure Code(s): I50.23 - ACUTE ON CHRONIC SYSTOLIC (CONGESTIVE) HEART FAILURE (11) Orthostasis Code(s): I95.1 - ORTHOSTATIC HYPOTENSION (12) PVD (peripheral vascular disease) Code(s): I73.9 - PERIPHERAL VASCULAR DISEASE, UNSPECIFIED (13) Type 2 diabetes mellitus Code(s): E11.9 - TYPE 2 DIABETES MELLITUS WITHOUT COMPLICATIONS (14) Acute decompensated heart failure Code(s): I50.9 - HEART FAILURE, UNSPECIFIED Assessment/Plan 1. Acute on chronic LV systolic heart failure (ischemic cardiomyopathy EF 25-30% ) resolved 2. CAD s/p [place], CABG, PCI/stents, angina pectoris 3. s/p ICD 4. HTN 5. Hypercholesterolemia 6. Type 2 DM 7. Acute on CKD stage 3 due to hemodynamic alterations resolving 8. 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 COPD 10. PUD s/p Bilroth II gastrectomy 11. Achalasia s/p Heller's myomectomy 12. Gout 13. Kidney stones 14. Orthostatic hypotension on Northera 15. Gait disturbance PLAN: 1. Diuresis as needed with monitor diuretic response, renal fxn and electrolytes 2. Continue Entresto 24/26 bid given renal fxn recovery, continue Plavix 75 qd, Coreg 3.125 bid, Crestor 20 qd. Orthostatic hypotension limits uptitration of cardiomyopathy meds 3. BD as needed, PT for gait training with cane assistance 4. Dysphagia diet per S&S, DVT prophylaxis 5. D/c planning with f/u with Dr. Morales in office
[2019-04-10] MEDS ORDERED: PT OWN MED DRAWER 7, Y5N ONE (22:27)
[2019-04-10] MEDS: INSULIN (LEVEMIR) 100 UNITS/ML UNITS SQ SCH (22:33)
[2019-04-10] MEDS: DOCUSATE SODIUM 100 MG CAPSULE (FP) PO SCH (22:35)
[2019-04-10] MEDS: MELATONIN 5 MG TABLETS PO SCH (22:35)
[2019-04-10] MEDS: ROSUVASTATIN CA 20 MG TABLET (FP) PO SCH (22:35)
[2019-04-11] MEDS: INSULIN SLIDING SCALE (NOVOLOG) 1 VIAL SQ SCH ×4 (06:09→21:43)
[2019-04-11] MEDS: DOCUSATE SODIUM 100 MG CAPSULE (FP) PO SCH ×3 (06:10→21:37)
[2019-04-11 07:06] LABS: BASO % 1.2 % (0-2.0); EOS % 2.6 % (0-4.5); HEMATOCRIT 28.9 % (35.4-49); HEMOGLOBIN 9.7 GM/dL (11.7-16.9); LYMPH % 17.3 % (8-40); MCH 26.7 pg (25.7-33.7); MCHC 33.7 g/dl (32.0-35.9); MEAN CELL VOLUME 79.3 fl (80-96); MEAN PLT VOLUME 8.5 fl (7.5-11.1); MONO % 10.4 % (3.8-10.2); NEUT % 68.5 % (42.8-82.8); PLATELET COUNT 142 K/MM3 (134-434); RBC 3.64 M/mm3 (4.00-5.60); RDW 17.2 % (11.9-15.9); WHITE BLOOD COUNT 5.4 K/mm3 (4.0-10.0)
[2019-04-11 07:37] LABS: ALBUMIN 2.8 g/dl (3.4-5.0); BILIRUBIN,TOTAL 0.6 mg/dL (0.2-1); BLOOD UREA NITROGEN 26.6 mg/dL (7-18); CALCIUM 8.7 mg/dL (8.5-10.1); CREATININE 1.3 mg/dL (0.55-1.3); MAGNESIUM 2.1 mg/dL (1.8-2.4); POTASSIUM 4.3 mmol/L (3.5-5.1); TOT PROT 5.9 g/dl (6.4-8.2)
[2019-04-11] MEDS ORDERED: ESCITALOPRAM OXALATE 10 MG TABLET (FP) ONE (09:22)
[2019-04-11] MEDS: CLOPIDOGREL BISULFATE 75 MG TABLET (FP) PO SCH (09:23)
[2019-04-11] MEDS: HEPARIN NA (PORCINE) 5,000 UNITS/ML 1ML VIAL SQ SCH ×2 (09:23→21:39)
[2019-04-11] MEDS: ESCITALOPRAM OXALATE 20 MG TABLET (FP) PO SCH (09:23)
[2019-04-11] MEDS: TAMSULOSIN HCL 0.4 MG CAP PO SCH (09:24)
[2019-04-11] MEDS: ALLOPURINOL 100 MG TABLET (FP) PO SCH ×2 (09:24→21:37)
[2019-04-11] MEDS: PANTOPRAZOLE 40 MG TABLET (FP) PO SCH (09:24)
[2019-04-11] MEDS: CARVEDILOL 3.125 MG TABLET (FP) PO SCH ×2 (09:24→21:37)
[2019-04-11] MEDS: BUDESONIDE/FORMETEROL FUMARATE 160/4.5 mcg INHALER IH SCH ×2 (09:25→21:43)
[2019-04-11] MEDS: SACUBITRIL/VALSARTAN 24 MG-26 MG TABLET PO SCH ×2 (09:25→21:37)
--- NOTE | 2019-04-11 10:21 | PN ---
Progress Note, Physician Chief Complaint: Events noted Not in distress History of Present Illness: Patient was seen and examined. Awake and alert. Chart was reviewed Denies chest pain, SOB or palpitations - Current Medication List Current Medications: Active Medications Albuterol Sulfate (Ventolin 0.083% Nebulizer Soln -) 1 amp NEB Q4H PRN PRN Reason: SHORT OF BREATH/WHEEZING Allopurinol (Zyloprim -) 100 mg PO BID [facility] Last Admin: 04/11/19 09:24 Dose: 100 mg Budesonide/Formoterol Fumarate (Symbicort 160/4.5mcg -) 2 puff IH BID [facility] Last Admin: 04/11/19 09:25 Dose: 2 puff Carvedilol (Coreg -) 3.125 mg PO BID [facility] Last Admin: 04/11/19 09:24 Dose: 3.125 mg Clopidogrel Bisulfate (Plavix -) 75 mg PO DAILY [facility] Last Admin: 04/11/19 09:23 Dose: 75 mg Docusate Sodium (Colace -) 100 mg PO TID [facility] Last Admin: 04/11/19 06:10 Dose: 100 mg Escitalopram Oxalate (Lexapro -) 20 mg PO DAILY [facility] Last Admin: 04/11/19 09:23 Dose: 20 mg Heparin Sodium (Porcine) (Heparin -) 5,000 unit SQ BID [facility] Last Admin: 04/11/19 09:23 Dose: 5,000 unit Insulin Aspart (Novolog Vial Sliding Scale -) 1 vial SQ [facility]; Protocol Last Admin: 04/11/19 06:09 Dose: Not Given Insulin Detemir (Levemir Vial) 10 units SQ [facility] Last Admin: 04/10/19 22:33 Dose: 10 units Melatonin (Melatonin) 10 mg PO [facility] Last Admin: 04/10/19 22:35 Dose: 10 mg Non-Formulary Medication (Droxidopa [Northera]) 100 mg PO DAILY [facility] Pantoprazole Sodium (Protonix -) 40 mg PO DAILY [facility] Last Admin: 04/11/19 09:24 Dose: 40 mg Rosuvastatin Calcium (Crestor -) 20 mg PO [facility] Last Admin: 04/10/19 22:35 Dose: 20 mg Sacubitril/Valsartan (Entresto 24 Mg-26 Mg Tablet) 1 tab PO BID [facility] Last Admin: 04/11/19 09:25 Dose: 1 tab Tamsulosin HCl (Flomax -) 0.4 mg PO DAILY@0830 [facility] Last Admin: 04/11/19 09:24 Dose: 0.4 mg - Objective Vital Signs: Vital Signs Temperature 97.7 F 04/11/19 08:44 Pulse Rate 63 04/11/19 08:44 Respiratory Rate 18 04/11/19 08:50 Blood Pressure 141/53 L 04/11/19 08:44 O2 Sat by Pulse Oximetry (%) 95 04/11/19 08:50 Eyes: Yes: PERRL HENT: Yes: Atraumatic Neck: Yes: Supple Cardiovascular: Yes: Regular Rate and Rhythm, S1, S2 Respiratory: Yes: CTA Bilaterally Gastrointestinal: Yes: Normal Bowel Sounds, Soft. No: Tenderness Edema: No Additional Findings/Remarks: - Review of Systems Constitutional: denies: Chills, Fever Cardiovascular: denies Palpitations, Shortness of Breath. denies: Chest Pain Respiratory: denies SOB. denies: Cough, Hemoptysis, PND, Snoring, SOB on Exertion, Wheezing Gastrointestinal: denies Abdominal Pain, Bloating, Diarrhea, Nausea, Vomiting. denies: Constipation, Melena, Rectal Bleeding Genitourinary: denies: Discharge, Hematuria Neurological: denies: Dizziness, Headache, Seizure, Syncope Labs: CBC, BMP 04/11/19 05:50 04/11/19 05:50 Problem List - Problems (1) Acute kidney injury Code(s): N17.9 - ACUTE KIDNEY FAILURE, UNSPECIFIED (2) CAD (coronary artery disease) Code(s): I25.10 - ATHSCL HEART DISEASE OF [place] CORONARY ARTERY W/O ANG PCTRS (3) COPD (chronic obstructive pulmonary disease) Code(s): J44.9 - CHRONIC OBSTRUCTIVE PULMONARY DISEASE, UNSPECIFIED (4) Congestive heart failure Code(s): I50.9 - HEART FAILURE, UNSPECIFIED Qualifiers: Heart failure type: combined systolic and diastolic Heart failure chronicity: acute on chronic Qualified Code(s): I50.43 - Acute on chronic combined systolic (congestive) and diastolic (congestive) heart failure (5) Orthostatic hypotension Code(s): I95.1 - ORTHOSTATIC HYPOTENSION (6) Acute on chronic diastolic CHF (congestive heart failure) Code(s): I50.33 - ACUTE ON CHRONIC DIASTOLIC (CONGESTIVE) HEART FAILURE (7) Acute on chronic renal insufficiency Code(s): N28.9 - DISORDER OF KIDNEY AND URETER, UNSPECIFIED; N18.9 - CHRONIC KIDNEY DISEASE, UNSPECIFIED (8) Anemia Code(s): D64.9 - ANEMIA, UNSPECIFIED Qualifiers: Anemia type: due to chronic kidney disease Chronic kidney disease stage: stage 3 (moderate) Qualified Code(s): N18.3 - Chronic kidney disease, stage 3 (moderate); D63.1 - Anemia in chronic kidney disease; D63.1 - Anemia in chronic kidney disease (9) CAD (coronary artery disease) Code(s): I25.10 - ATHSCL HEART DISEASE OF [place] CORONARY ARTERY W/O ANG PCTRS Qualifiers: Coronary Disease-Associated Artery/Lesion type: [place] artery [place] vs. transplanted heart: [place] heart Associated angina: without angina Qualified Code(s): I25.10 - Atherosclerotic heart disease of [place] coronary artery without angina pectoris (10) Gait instability Code(s): R26.81 - UNSTEADINESS ON FEET (11) Generalized weakness Code(s): R53.1 - WEAKNESS (12) History of percutaneous coronary intervention Code(s): Z98.890 - OTHER SPECIFIED POSTPROCEDURAL STATES (13) Hx of CABG Code(s): Z95.1 - PRESENCE OF AORTOCORONARY BYPASS GRAFT (14) Hyperlipidemia Code(s): E78.5 - HYPERLIPIDEMIA, UNSPECIFIED Qualifiers: Hyperlipidemia type: pure hypercholesterolemia Qualified Code(s): E78.00 - Pure hypercholesterolemia, unspecified; E78.0 - Pure hypercholesterolemia (15) Hypertension Code(s): I10 - ESSENTIAL (PRIMARY) HYPERTENSION Qualifiers: Hypertension type: essential hypertension Qualified Code(s): I10 - Essential (primary) hypertension (16) ICD (implantable cardioverter-defibrillator) in place Code(s): Z95.810 - PRESENCE OF AUTOMATIC (IMPLANTABLE) CARDIAC DEFIBRILLATOR (17) Ischemic cardiomyopathy Code(s): I25.5 - ISCHEMIC CARDIOMYOPATHY (18) NYHA class 2 acute on chronic systolic heart failure Code(s): I50.23 - ACUTE ON CHRONIC SYSTOLIC (CONGESTIVE) HEART FAILURE (19) PVD (peripheral vascular disease) Code(s): I73.9 - PERIPHERAL VASCULAR DISEASE, UNSPECIFIED (20) Pulmonary HTN Code(s): I27.20 - PULMONARY HYPERTENSION, UNSPECIFIED (21) Type 2 diabetes mellitus Code(s): E11.9 - TYPE 2 DIABETES MELLITUS WITHOUT COMPLICATIONS Assessment/Plan 1. Acute on chronic LV systolic heart failure (ischemic cardiomyopathy EF 25-30% ) 2. CAD s/p [place], CABG, PCI/stents, angina pectoris 3. Post ICD implant 4. HTN 5. Hypercholesterolemia 6. T2DM 7. Acute on CKD stage 3 8. PAD s/p fem-pop bypass and BAND PRESSER 9. COPD 10. PUD s/p Bilroth II gastrectomy 11. Achalasia s/p Heller's myomectomy 12. Gout 13. Kidney stones 14. Orthostatic hypotension on Northera 15. Gait disturbance PLAN: 1. Diuresis as needed with monitoring renal function and electrolytes 2. Continue Entresto 24/26 mg BID given renal function recovery, continue Plavix 75 mg QD, Coreg 3.125 mg BID and Crestor 20 mg QHS. Monitor orthostasis 3. Bronchodilator as needed and PT for gait training 4. DVT prophylaxis 5. D/C planning with f/u in office Jayy Morales MD
--- NOTE | 2019-04-11 10:22 | PN ---
Progress Note, [employer] - Note Progress Note: Selected Entries 04/09/19 04/09/19 04/09/19 02:00 06:00 08:27 Breakfast Diet Tolerated Lunch Temperature 98.2 F 98.0 F 98.3 F 04/09/19 04/09/19 04/09/19 12:12 15:34 18:27 Breakfast 100% Diet Tolerated Well Lunch Temperature 98.2 F 98.4 F 04/09/19 04/10/19 04/10/19 21:00 01:13 05:52 Breakfast Diet Tolerated Lunch Temperature 99.4 F 99.3 F 99 F 04/10/19 04/10/19 04/10/19 09:00 09:35 12:38 Breakfast 100% Diet Tolerated Well Well Lunch 100% Temperature 99.6 F 04/10/19 04/10/19 04/11/19 13:00 21:00 02:00 Breakfast Diet Tolerated Lunch Temperature 99.5 F 99.0 F 98.4 F 04/11/19 04/11/19 05:38 08:44 Breakfast Diet Tolerated Lunch Temperature 98.5 F 97.7 F Laboratory Tests 04/10/19 04/11/19 05:45 05:50 Total Protein 6.2 L 5.9 L Oriented,appropriate, memory better than previous admission. Pt reports tolerating diet well, not spitting out food or phlegm, wants to go home. GI consult appreciated. Continue Recommendations- Diet Consistency: Dysphagia Whole (very soft, easy to chew,) Liquids: Thin Liquids Supplement: Ensure
--- NOTE | 2019-04-11 13:49 | PN ---
Progress Note (short form) - Note Progress Note: GI f/u Patient states he does not have dysphagia when sitting up If he eats while lying down, things come up ++coughing Await results of swallow eval Patient does not want endoscopic eval or treatment at this time
--- NOTE | 2019-04-11 16:07 | PN ---
Physical Exam: SUBJECTIVE: Patient seen and examined OBJECTIVE: Patient is a 78 year old male who comes to the ED for worsening shortness of breath despite home inhalers. Reports a productive cough for several months. His other past medical history includes chronic systolic heart failure, CAD, MS , CABG, PCI/stents, AICD, HTN, hyperlipidemia, PAD, fem-pop bypass, type 2 DM, asthma/COPD, PUD, Bilroth II gastrectomy, achalasia, Heller's myomectomy, gout, kidney stones, stage 3 CKD, BPH, chronic constipation. Vital Signs Period Temp Pulse Resp BP Sys/Garcia Pulse Ox Last 24 Hr 97.7 F-99.0 F 63-84 16-18 92-141/49-60 95-99 GENERAL: The patient is awake, alert, and fully oriented, in no acute distress. HEAD: Normal with no signs of trauma. EYES: PERRL, extraocular movements intact, sclera anicteric, conjunctiva clear. No ptosis. ENT: Ears normal, nares patent, oropharynx clear without exudates, moist mucous membranes. NECK: Trachea midline, full range of motion, supple. LUNGS: diminished bilaterally, no wheezing HEART: Regular rate and rhythm ABDOMEN: Soft, nontender, nondistended, normoactive bowel sounds, no guarding, no rebound, no hepatosplenomegaly, no masses. EXTREMITIES: no edema. NEUROLOGICAL: Normal speech, gait not observed. PSYCH: Normal mood, normal affect. SKIN: Warm, dry, normal turgor, no rashes or lesions noted Laboratory Results - last 24 hr 04/10/19 04/10/19 04/11/19 16:55 21:44 05:50 WBC 5.4 RBC 3.64 L Hgb 9.7 L Hct 28.9 L MCV 79.3 L MCH 26.7 MCHC 33.7 RDW 17.2 H Plt Count 142 MPV 8.5 Absolute Neuts (auto) 3.7 Neutrophils % 68.5 Lymphocytes % 17.3 Monocytes % 10.4 H Eosinophils % 2.6 Basophils % 1.2 Nucleated RBC % 1 H Sodium Potassium Chloride Carbon Dioxide Anion Gap BUN Creatinine Est GFR (CKD-EPI)AfAm Est GFR (CKD-EPI)NonAf POC Glucometer 146 187 Random Glucose Calcium Magnesium Total Bilirubin AST ALT Alkaline Phosphatase Total Protein Albumin 04/11/19 04/11/1904/11/19 05:50 06:09 11:12 WBC RBC Hgb Hct MCV MCH MCHC RDW Plt Count MPV Absolute Neuts (auto) Neutrophils % Lymphocytes % Monocytes % Eosinophils % Basophils % Nucleated RBC % Sodium 141 Potassium 4.3 Chloride 111 H Carbon Dioxide 22 Anion Gap 7 L BUN 26.6 H Creatinine 1.3 Est GFR (CKD-EPI)AfAm 61.43 Est GFR (CKD-EPI)NonAf 53.00 POC Glucometer 124 175 Random Glucose 112 H Calcium 8.7 Magnesium 2.1 Total Bilirubin 0.6 AST 16 ALT 22 Alkaline Phosphatase 68 Total Protein 5.9 L Albumin 2.8 L Active Medications Generic Name Dose Route Start Last Admin Trade Name Freq PRN Reason Stop Dose Admin Albuterol Sulfate 1 amp 04/07/19 18:55 Ventolin 0.083% Nebulizer Soln - NEB Q4H PRN SHORT OF BREATH/WHEEZING Allopurinol 100 mg 04/07/19 22:00 04/11/19 09:24 Zyloprim - PO 100 mg BID KADEEM Administration Budesonide/Formoterol Fumarate 2 puff 04/07/19 22:00 04/11/19 09:25 Symbicort 160/4.5mcg - IH 2 puff BID KADEEM Administration Carvedilol 3.125 mg 04/07/19 22:00 04/11/19 09:24 Coreg - PO 3.125 mg BID KADEEM Administration Clopidogrel Bisulfate 75 mg 04/08/19 10:00 04/11/19 09:23 Plavix - PO 75 mg DAILY KADEEM Administration Docusate Sodium 100 mg 04/10/19 22:00 04/11/19 13:53 Colace - PO 100 mg TID KADEEM Administration Escitalopram Oxalate 20 mg 04/08/19 10:00 04/11/19 09:23 Lexapro - PO 20 mg DAILY KADEEM Administration Heparin Sodium (Porcine) 5,000 unit 04/08/19 22:00 04/11/19 09:23 Heparin - SQ 5,000 unit BID KADEEM Administration Insulin Aspart 1 vial 04/07/19 22:00 04/11/19 11:17 Novolog Vial Sliding Scale - SQ 2 units ACHS KADEEM Administration Protocol Insulin Detemir 10 units 04/07/19 22:00 04/10/19 22:33 Levemir Vial SQ 10 units HS KADEEM Administration Melatonin 10 mg 04/07/19 22:00 04/10/19 22:35 Melatonin PO 10 mg HS KADEEM Administration Non-Formulary Medication 100 mg 04/08/19 10:00 Droxidopa [Northera] PO DAILY KADEEM Pantoprazole Sodium 40 mg 04/08/19 10:00 04/11/19 09:24 Protonix - PO 40 mg DAILY KADEEM Administration Rosuvastatin Calcium 20 mg 04/07/19 22:00 04/10/19 22:35 Crestor - PO 20 mg HS KADEEM Administration Sacubitril/Valsartan 1 tab 04/09/19 13:45 04/11/19 09:25 Entresto 24 Mg-26 Mg Tablet PO 1 tab BID KADEEM Administration Tamsulosin HCl 0.4 mg 04/08/19 08:30 04/11/19 09:24 Flomax - PO 0.4 mg DAILY@0830 KADEEM Administration ASSESSMENT/PLAN: Problem List - Problems (1) Shortness of breath Assessment/Plan: shortness of breath in the setting of acute on chronic systolic heart failure, resolving. tolerating room air. has home oxygen, but reports not needing it. respiratory pre and post shows no need for home oxygen. On tele, troponins negative. monitor intake and output monitor daily weights cardiology following Code(s): R06.02 - SHORTNESS OF BREATH (2) Acute kidney injury Assessment/Plan: creatinine elevated on admission, baseline 1.2. entresto restarted. monitor labs. Code(s): N17.9 - ACUTE KIDNEY FAILURE, UNSPECIFIED (3) Congestive heart failure Assessment/Plan: Acute on chronic systolic heart failure secondary to ischemic cardiomyopathy monitor on tele troponins negative x 2 on Entresto Code(s): I50.9 - HEART FAILURE, UNSPECIFIED Qualifiers: Heart failure type: combined systolic and diastolic Heart failure chronicity: acute on chronic Qualified Code(s): I50.43 - Acute on chronic combined systolic (congestive) and diastolic (congestive) heart failure (4) Acute on chronic diastolic CHF (congestive heart failure) Code(s): I50.33 - ACUTE ON CHRONIC DIASTOLIC (CONGESTIVE) HEART FAILURE (5) Dyspnea Assessment/Plan: resolved Code(s): R06.00 - DYSPNEA, UNSPECIFIED Qualifiers: Dyspnea type: shortness of breath Qualified Code(s): R06.02 - Shortness of breath; R06.00 - Dyspnea, unspecified; R06.01 - Orthopnea (6) Type 2 diabetes mellitus Assessment/Plan: monitor bgms, novolog ss Code(s): E11.9 - TYPE 2 DIABETES MELLITUS WITHOUT COMPLICATIONS (7) COPD (chronic obstructive pulmonary disease) Assessment/Plan: not in acute exacerbation. on 2 liters of nasal cannula continue home inhalers Code(s): J44.9 - CHRONIC OBSTRUCTIVE PULMONARY DISEASE, UNSPECIFIED (8) CAD (coronary artery disease) Assessment/Plan: continue Plavix 75 qd, Coreg 3.125 bid, Crestor 20 qd Code(s): I25.10 - ATHSCL HEART DISEASE OF [place] CORONARY ARTERY W/O ANG PCTRS (9) Dysphagia Assessment/Plan: difficulty with swallowing and reports of food getting stuck and cough with meals. Patient with history of esophageal dysphagia and had an EGD on 08/2018 and no stricture seen. speech and swallow following GI consulted for esophageal dysphagia Code(s): R13.10 - DYSPHAGIA, UNSPECIFIED (10) Orthostatic hypotension Assessment/Plan: on droxidopa Code(s): I95.1 - ORTHOSTATIC HYPOTENSION Visit type - Emergency Visit Emergency Visit: Yes ED Registration Date: 04/07/19 Care time: The patient presented to the Emergency Department on the above date and was hospitalized for further evaluation of their emergent condition. - New Patient This patient is new to me today: No - Critical Care Critical Care patient: No - Discharge Referral Referred to [facility] Med P.C[facility] No
[2019-04-11] MEDS: ROSUVASTATIN CA 20 MG TABLET (FP) PO SCH (21:37)
[2019-04-11] MEDS: MELATONIN 5 MG TABLETS PO SCH (21:37)
[2019-04-11] MEDS: INSULIN (LEVEMIR) 100 UNITS/ML UNITS SQ SCH (21:38)
[2019-04-12] MEDS: DOCUSATE SODIUM 100 MG CAPSULE (FP) PO SCH ×2 (06:03→13:06)
[2019-04-12] MEDS: INSULIN SLIDING SCALE (NOVOLOG) 1 VIAL SQ SCH ×2 (06:04→11:13)
--- NOTE | 2019-04-12 08:52 | PN ---
Progress Note (short form) - Note Progress Note: Chief Complaint: Events noted, notes reviewed, patient denies any dyspnea, patient denies any chest pain History of Present Illness: Seen and examined on telemetry. Events noted, notes reviewed, patient denies any dyspnea, patient denies any chest pain Medications: Current Medications Albuterol Sulfate (Ventolin 0.083% Nebulizer Soln -) 1 amp NEB Q4H PRN PRN Reason: SHORT OF BREATH/WHEEZING Allopurinol (Zyloprim -) 100 mg PO BID [facility] Last Admin: 04/11/19 21:37 Dose: 100 mg Budesonide/Formoterol Fumarate (Symbicort 160/4.5mcg -) 2 puff IH BID [facility] Last Admin: 04/11/19 21:43 Dose: 2 puff Carvedilol (Coreg -) 3.125 mg PO BID [facility] Last Admin: 04/11/19 21:37 Dose: 3.125 mg Clopidogrel Bisulfate (Plavix -) 75 mg PO DAILY [facility] Last Admin: 04/11/19 09:23 Dose: 75 mg Docusate Sodium (Colace -) 100 mg PO TID [facility] Last Admin: 04/12/19 06:03 Dose: 100 mg Escitalopram Oxalate (Lexapro -) 20 mg PO DAILY [facility] Last Admin: 04/11/19 09:23 Dose: 20 mg Heparin Sodium (Porcine) (Heparin -) 5,000 unit SQ BID [facility] Last Admin: 04/11/19 21:39 Dose: 5,000 unit Insulin Aspart (Novolog Vial Sliding Scale -) 1 vial SQ [facility]; Protocol Last Admin: 04/12/19 06:04 Dose: Not Given Insulin Detemir (Levemir Vial) 10 units SQ [facility] Last Admin: 04/11/19 21:38 Dose: 10 units Melatonin (Melatonin) 10 mg PO [facility] Last Admin: 04/11/19 21:37 Dose: 10 mg Pantoprazole Sodium (Protonix -) 40 mg PO DAILY [facility] Last Admin: 04/11/19 09:24 Dose: 40 mg Rosuvastatin Calcium (Crestor -) 20 mg PO HS [facility] Last Admin: 04/11/19 21:37 Dose: 20 mg Sacubitril/Valsartan (Entresto 24 Mg-26 Mg Tablet) 1 tab PO BID [facility] Last Admin: 04/11/19 21:37 Dose: 1 tab Tamsulosin HCl (Flomax -) 0.4 mg PO DAILY@0830 [facility] Last Admin: 04/11/19 09:24 Dose: 0.4 mg Review of Systems - Review of Systems Constitutional: denies: Chills, Fever Cardiovascular: As noted above Respiratory: denies: Cough or Sputum Production Gastrointestinal: denies: Nausea, Vomiting, diarrhea, Constipation or Abdominal Pain Musculoskeletal: denies: Joint Pain Neurological: denies: Headache Vital Signs: Last Vital Signs Temp Pulse Resp BP Pulse Ox 98.1 F 70 18 108/60 95 04/12/19 08:47 04/12/19 08:47 04/12/19 08:47 04/12/19 08:47 04/11/19 21:00 Intake & Output 04/09/19 04/10/19 04/11/19 04/12/19 23:59 23:59 23:59 23:59 Intake Total 027 440 7111 120 Output Total 8222 891 2530 300 Balance -290 -260 -130 -180 Weight 178 lb 12.8 oz 178 lb 181 lb 181 lb 9.6 oz Neck: Supple Negative JVD Respiratory: Clear to A&P Bilaterally Cardiovascular: S1 S2 Regular Rate and Rhythm Gastrointestinal: Soft Benign Normal Bowel Sounds Ext: No Edema Labs: CBC, BMP 04/11/19 05:50 04/11/19 05:50 Hepatic Panel Total Bilirubin 0.6 mg/dL (0.2-1) 04/11/19 05:50 AST 16 U/L (15-37) 04/11/19 05:50 ALT 22 U/L (13-61) 04/11/19 05:50 Alkaline Phosphatase 68 U/L (45-117) 04/11/19 05:50 Albumin 2.8 g/dl (3.4-5.0) L 04/11/19 05:50 INR, PTT INR 1.01 (0.83-1.09) 04/07/19 05:05 Assessment/Plan 1. 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 CAD post LA/CABG/PCI/stent angina pectoris, clinically stable 3. Hypertension, history of orthostatic hypotension currently on Northera therapy 4. Diabetes mellitus 5. Hypercholesterolemia 6. PAD post MOHEL 7. COPD 8. CKD 9. Anemia PLAN: 1. Continue Coreg and titrate dosage as tolerated, hemodynamics permitting 2. Continue Entresto with close monitoring of renal function, and titrate dosage as tolerated, hemodynamics permitting 3. Continue Plavix 4. Continue Crestor 5. Continue Lasix with close monitoring of renal function 6. Can be D/C home from the cardiovascular point of view, advised to F/U in the office in 1-2 week, Dr. Jayy Morales [phone] Katharine Mitchell MD
[2019-04-12] MEDS ORDERED: ESCITALOPRAM OXALATE 10 MG TABLET (FP) ONE (09:05)
[2019-04-12] MEDS: CLOPIDOGREL BISULFATE 75 MG TABLET (FP) PO SCH (09:22)
[2019-04-12] MEDS: ALLOPURINOL 100 MG TABLET (FP) PO SCH (09:22)
[2019-04-12] MEDS: TAMSULOSIN HCL 0.4 MG CAP PO SCH (09:22)
[2019-04-12] MEDS: PANTOPRAZOLE 40 MG TABLET (FP) PO SCH (09:22)
[2019-04-12] MEDS: CARVEDILOL 3.125 MG TABLET (FP) PO SCH (09:22)
[2019-04-12] MEDS: HEPARIN NA (PORCINE) 5,000 UNITS/ML 1ML VIAL SQ SCH (09:23)
[2019-04-12] MEDS: ESCITALOPRAM OXALATE 20 MG TABLET (FP) PO SCH (09:24)
[2019-04-12] MEDS: BUDESONIDE/FORMETEROL FUMARATE 160/4.5 mcg INHALER IH SCH (09:25)
[2019-04-12] MEDS ORDERED: PT OWN MED DRAWER 7, Y5N ONE (09:49)
[2019-04-12] MEDS: SACUBITRIL/VALSARTAN 24 MG-26 MG TABLET PO SCH (09:50)
--- NOTE | 2019-04-12 12:02 | PN ---
Progress Note, [employer]IMAL [employer]AXON[employer]IST - Note Progress Note: Selected Entries 04/09/19 04/09/19 04/09/19 02:00 06:00 08:27 Breakfast Diet Tolerated Lunch Temperature 98.2 F 98.0 F 98.3 F 04/09/19 04/09/19 04/09/19 12:12 15:34 18:27 Breakfast 100% Diet Tolerated Well Lunch Temperature 98.2 F 98.4 F 04/09/19 04/10/19 04/10/19 21:00 01:13 05:52 Breakfast Diet Tolerated Lunch Temperature 99.4 F 99.3 F 99 F 04/10/19 04/10/19 04/10/19 09:00 09:35 12:38 Breakfast 100% Diet Tolerated Well Well Lunch 100% Temperature 99.6 F 04/10/19 04/10/19 04/11/19 13:00 21:00 02:00 Breakfast Diet Tolerated Lunch Temperature 99.5 F 99.0 F 98.4 F 04/11/19 04/11/19 05:38 08:44 Breakfast Diet Tolerated Lunch Temperature 98.5 F 97.7 F Laboratory Tests 04/10/19 04/11/19 05:45 05:50 Total Protein 6.2 L 5.9 L Selected Entries 04/11/19 04/11/19 04/11/19 02:00 05:38 08:44 Breakfast Lunch Supper Temperature 98.4 F 98.5 F 97.7 F 04/11/19 04/11/19 04/11/19 15:00 19:00 22:00 Breakfast 100% Lunch 75% Supper 75% Temperature 97.8 F 98.3 F 98.6 F 04/12/19 04/12/19 04/12/19 01:36 06:00 08:47 Breakfast Lunch Supper Temperature 97.9 F 98.5 F 98.1 F 04/12/19 09:00 Breakfast 75% Lunch Supper Temperature Laboratory Tests 04/11/19 05:50 WBC 5.4 Oriented,appropriate, sleepy as he did not sleep last night. Pt reports tolerating diet well, not spitting out food or phlegm, wants to go home. Reports tolerating food better than he was at home. Suggest pt education re Dys whole diet to be continued upon d/c.
--- NOTE | 2019-04-12 12:10 | DS ---
Physical Exam: SUBJECTIVE: Patient seen and examined OBJECTIVE: Vital Signs Period Temp Pulse Resp BP Sys/Garcia Pulse Ox Last 24 Hr 97.8 F-98.6 F 61-84 18-20 92-142/49-60 95-97 PHYSICAL EXAM GENERAL: The patient is awake, alert, and fully oriented, in no acute distress. HEAD: Normal with no signs of trauma. EYES: PERRL, extraocular movements intact, sclera anicteric, conjunctiva clear. ENT: Ears normal, nares patent, oropharynx clear without exudates, moist mucous membranes. NECK: Trachea midline, full range of motion, supple. LUNGS: Breath sounds equal, clear to auscultation bilaterally, no wheezes, no crackles, no accessory muscle use. HEART: Regular rate and rhythm, S1, S2 without murmur, rub or gallop. ABDOMEN: Soft, nontender, nondistended, normoactive bowel sounds, no guarding, no rebound, no hepatosplenomegaly, no masses. EXTREMITIES: 2+ pulses, warm, well-perfused, no edema. NEUROLOGICAL: Cranial nerves II through XII grossly intact. Normal speech, gait not observed. PSYCH: Normal mood, normal affect. SKIN: Warm, dry, normal turgor, no rashes or lesions noted. LABS Laboratory Results - last 24 hr 04/11/19 04/11/19 04/12/19 17:07 20:48 05:59 POC Glucometer 168 198 119 04/12/19 11:11 POC Glucometer 146 HOSPITAL COURSE: Date of Admission:04/07/19 Date of Discharge: 04/12/19 Discharge Summary Problems reviewed: Yes Reason For Visit: ACUTE KIDNEY INJURY Current Active Problems Acute kidney injury (Acute) CAD (coronary artery disease) (Acute) COPD (chronic obstructive pulmonary disease) (Acute) Congestive heart failure (Acute) Dysphagia (Acute) Orthostatic hypotension (Acute) Shortness of breath (Acute) Condition: Fair - Instructions Diet, Activity, Other Instructions: Mr Gates You were admitted for shortness of breath and now are stable for discharge. You do not qualify for home oxygen at this time Here are your discharge instructions: - Continue Coreg - Continue Entresto - Continue Plavix - Continue Crestor - Continue Lasix home dose (you will need to have your kidney function closely monitored) Please follow up with in 1-2 week, Dr. Jayy Morales [phone] Thank you for allowing us to care for you. Referrals: Vikash Guerra MD [Primary Care Provider] - Disposition: HOME - Home Medications Comprehensive Discharge Medication List: Ambulatory Orders Carvedilol 3.125 mg PO BID 12/08/18 Escitalopram Oxalate [Lexapro -] 20 mg PO DAILY 12/08/18 Rosuvastatin Calcium [Crestor] 20 mg PO HS 12/08/18 Insulin Glargine,Hum.rec.anlog [Lantus Solostar PEN -] 58 units SQ HS 01/11/19 Tamsulosin HCl 0.4 mg PO DAILY 01/11/19 Albuterol 0.083% Nebulizer Fatuma [Ventolin 0.083% Nebulizer Soln -] 1 amp NEB ONCE 04/07/19 Clopidogrel Bisulfate [Clopidogrel] 75 mg PO DAILY 04/07/19 Droxidopa [Northera] 100 mg PO DAILY 04/07/19 Insulin Lispro [Humalog Ponce Kwikpen] 10 - 34 unit SQ TID 04/07/19 Melatonin 10 mg PO HS 04/07/19 Sacubitril/Valsartan [Entresto 24 mg-26 mg Tablet] 1 each PO BID 04/07/19 Problem List - Problems (1) Shortness of breath Code(s): R06.02 - SHORTNESS OF BREATH (2) Acute kidney injury Code(s): N17.9 - ACUTE KIDNEY FAILURE, UNSPECIFIED (3) Congestive heart failure Code(s): I50.9 - HEART FAILURE, UNSPECIFIED Qualifiers: Heart failure type: combined systolic and diastolic Heart failure chronicity: acute on chronic Qualified Code(s): I50.43 - Acute on chronic combined systolic (congestive) and diastolic (congestive) heart failure (4) Acute on chronic diastolic CHF (congestive heart failure) Code(s): I50.33 - ACUTE ON CHRONIC DIASTOLIC (CONGESTIVE) HEART FAILURE (5) Dyspnea Code(s): R06.00 - DYSPNEA, UNSPECIFIED Qualifiers: Dyspnea type: shortness of breath Qualified Code(s): R06.02 - Shortness of breath; R06.00 - Dyspnea, unspecified; R06.01 - Orthopnea (6) Type 2 diabetes mellitus Code(s): E11.9 - TYPE 2 DIABETES MELLITUS WITHOUT COMPLICATIONS (7) COPD (chronic obstructive pulmonary disease) Code(s): J44.9 - CHRONIC OBSTRUCTIVE PULMONARY DISEASE, UNSPECIFIED (8) CAD (coronary artery disease) Code(s): I25.10 - ATHSCL HEART DISEASE OF [place] CORONARY ARTERY W/O ANG PCTRS (9) Dysphagia Code(s): R13.10 - DYSPHAGIA, UNSPECIFIED (10) Orthostatic hypotension Code(s): I95.1 - ORTHOSTATIC HYPOTENSION - Discharge Referral Referred to [facility].: No
[2019-04-12 14:59] VITALS: BP 116/57; PULSE 73; TEMP 97.8
== END 2019-04-12 16:13 | disposition home or self-care (01) | DRG 291 ==
LOC: JER 03:07 → JERBED 06:55 → J4S 11:03
PROVIDERS: ADMIT Internal Medicine; ATTEND Nurse Practitioner Family
DX: I13.0 Hypertensive heart and chronic kidney disease with heart failure and stage 1 through stage 4 chronic kidney disease, or unspecified chronic kidney disease (principal); I50.23 Acute on chronic systolic (congestive) heart failure; N17.9 Acute kidney failure, unspecified; I25.10 Atherosclerotic heart disease of native coronary artery without angina pectoris; E11.51 Type 2 diabetes mellitus with diabetic peripheral angiopathy without gangrene; E78.5 Hyperlipidemia, unspecified; J44.9 Chronic obstructive pulmonary disease, unspecified; M10.9 Gout, unspecified; I44.0 Atrioventricular block, first degree; K59.09 Other constipation; I25.2 Old myocardial infarction; N40.0 Benign prostatic hyperplasia without lower urinary tract symptoms; I25.5 Ischemic cardiomyopathy; I95.1 Orthostatic hypotension; R26.81 Unsteadiness on feet; D64.9 Anemia, unspecified; J45.909 Unspecified asthma, uncomplicated; M54.5 Low back pain; K22.0 Achalasia of cardia; R13.10 Dysphagia, unspecified; E11.22 Type 2 diabetes mellitus with diabetic chronic kidney disease; N18.3 Chronic kidney disease, stage 3 (moderate); Z95.1 Presence of aortocoronary bypass graft; Z87.11 Personal history of peptic ulcer disease; Z95.810 Presence of automatic (implantable) cardiac defibrillator; Z95.5 Presence of coronary angioplasty implant and graft
CPT/HCPCS: 36415; 71045-TC-FY; 80048; 80053; 80061; 81003; 82043; 82550; 82565; 82570; 82803; 82962; 83036; 83605; 83721; 83735; 83880; 84100; 84443; 84484; 85025; 85027; 85610; 85730; 87040; 87077; 87086; 93005; 93010; 94761; 97116-GP; 97161-GP; 99284-25; J1644

== ENCOUNTER 2019-05-18 02:58 | Inpatient (IN) | payer OTHER, MEDICARE ==
--- NOTE | 2019-05-18 03:04 | PDOC ---
Attending Attestation - Resident Resident Name: Iglesia Martin - ED Attending Attestation I have performed the following: I have examined & evaluated the patient, The case was reviewed & discussed with the resident, I agree w/resident's findings & plan - HPI HPI: 05/18/19 05:00 see resident hpi - Physicial Exam PE: 05/18/19 05:01 agree with resident exam - Medical Decision Making 05/18/19 05:01 78-year-old male with cough fever and shortness of breath Chest x-ray shows no obvious focal infiltrate Due to history of COPD will cover with antibiotics Patient received IV steroids as well as antibiotics and IV fluids for elevated creatinine/acute kidney injury We will admit to medical service for further management
--- NOTE | 2019-05-18 03:16 | PDOC ---
History of Present Illness - General Stated Complaint: SICK Time Seen by Provider: 05/18/19 03:04 - History of Present Illness Initial Comments: The pt is a 78M w/ a history of COPD, HF, HTN, CAD s/p CABG, DM, CKD, who presents for evaluation of 4 days of generalized weakness, fatigue, productive cough, and wheeze. The pt has been compliant with his medications. He denies fevers at home. He endorses nausea with small amounts of spit up without actual emesis. Denies chest pain, abdominal pain, dysuria, hematuria, diarrhea, or blood in his stool. +Plavix 05/18/19 03:39 Past History - Past Medical History Allergies/Adverse Reactions: Allergies Allergy/AdvReac Type Severity Reaction Status Date / Time pregabalin [From Lyrica] Allergy Severe Verified 05/18/19 03:26 Home Medications: Ambulatory Orders Carvedilol 3.125 mg PO BID 12/08/18 Escitalopram Oxalate [Lexapro -] 20 mg PO DAILY 12/08/18 Rosuvastatin Calcium [Crestor] 20 mg PO HS 12/08/18 Insulin Glargine,Hum.rec.anlog [Lantus Solostar PEN -] 58 units SQ HS 01/11/19 Tamsulosin HCl 0.4 mg PO DAILY 01/11/19 Albuterol 0.083% Nebulizer Fatuma [Ventolin 0.083% Nebulizer Soln -] 1 amp NEB ONCE 04/07/19 Clopidogrel Bisulfate [Clopidogrel] 75 mg PO DAILY 04/07/19 Droxidopa [Northera] 100 mg PO DAILY 04/07/19 Insulin Lispro [Humalog Ponce Kwikpen] 10 - 34 unit SQ TID 04/07/19 Melatonin 10 mg PO HS 04/07/19 Sacubitril/Valsartan [Entresto 24 mg-26 mg Tablet] 1 each PO BID 04/07/19 Anemia: No Asthma: No Cancer: No Cardiac Disorders: Yes (4 stents, triple bypass) CVA: No COPD: Yes CHF: Yes Dementia: No Diabetes: Yes GI Disorders: No Disorders: No HTN: Yes Hypercholesterolemia: Yes Kidney Stones: No Liver Disease: No Psychiatric Problems: No Seizures: No Thyroid Disease: No Lung CA: No - Surgical History Abdominal Surgery: Yes (PARTIAL GASTRECTOMY,H/O ULCERS EGD BIOPSY 2009,EGD H- PYLORI 2006,COLON 2003) Appendectomy: Yes Cardiac Surgery: Yes Cholecystectomy: Yes Lung Surgery: Yes (ICD,STENTS ,TRIPLE BYPASS) Neurologic Surgery: No Orthopedic Surgery: No - Reproductive History Testicular Surgery: Yes - Immunization History Immunization Up to Date: Yes - Psycho Social/Smoking Cessation Hx Smoking Status: Yes Smoking History: Former smoker Years of Tobacco Use: 50 Have you smoked in the past 12 months: No Number of Cigarettes Smoked Daily: 30 If you are a former smoker, when did you quit?: 1 year ago Cigars Per Day: 20 'Breaking Loose' booklet given: 07/01/18 Hx Alcohol Use: Yes Drug/Substance Use Hx: Yes Substance Use Type: Cocaine Hx Substance Use Treatment: No Review of Systems - Review of Systems Able to Perform ROS?: Yes Comments:: GENERAL/CONSTITUTIONAL: No fever or chills. No weakness HEAD, EYES, EARS, NOSE AND THROAT: No change in vision. No change in hearing. No sore throat CARDIOVASCULAR: +SOB; denies chest pain RESPIRATORY: Denies cough, hemoptysis GASTROINTESTINAL: +nausea; denies, diarrhea or constipation GENITOURINARY: No dysuria, frequency, or change in urination MUSCULOSKELETAL: No joint or muscle swelling or pain. No neck or back pain SKIN: No rash NEUROLOGIC: No headache, vertigo, loss of consciousness, or change in strength/ sensation ENDOCRINE: No increased thirst. No abnormal weight change HEMATOLOGIC/LYMPHATIC: No anemia, easy bleeding, or history of blood clots ALLERGIC/IMMUNOLOGIC: No hives or skin allergy 05/18/19 03:16 Is the patient limited [place] proficient: No *Physical Exam - Vital Signs Initial Vital Signs Temp Pulse Resp BP Pulse Ox 97.9 F 82 20 110/64 93 L 05/18/19 03:10 05/18/19 03:10 05/18/19 03:10 05/18/19 03:10 05/18/19 03:10 Rectal: 101.7 05/18/19 03:53 - Physical Exam GENERAL: Awake, alert, and oriented to person/place/time, in no acute distress HEAD: No signs of trauma, normocephalic, atraumatic EYES: PERRLA, EOMI, sclera anicteric, conjunctiva clear ENT: Hearing grossly normal, nares patent, oropharynx clear without exudates. Moist mucosa LUNGS: No distress, speaks in full sentences, b/l diminished breath sounds at bases with b/l expiratory wheezes appreciated b/l HEART: Regular rate and rhythm, normal S1 and S2, no murmurs appreciated, peripheral pulses normal and equal bilaterally ABDOMEN: Soft, nontender, normoactive bowel sounds. No guarding, no rebound EXTREMITIES: Normal inspection, Normal range of motion, no edema. No clubbing or cyanosis NEUROLOGICAL: Cranial nerves II through XII grossly intact. Normal speech, normal gait, no focal sensorimotor deficits SKIN: Warm, Dry 05/18/19 03:16 ED Treatment Course - LABORATORY CBC & Chemistry Diagram: 05/18/19 03:30 05/18/19 03:30 Medical Decision Making - Medical Decision Making The pt is a 78M w/ a history of COPD, HF, HTN, CAD s/p CABG, DM, CKD, who presents for evaluation of 4 days of generalized weakness, fatigue, productive cough, and wheeze. Likely COPD exacerbation versus HCAP, consider CHF exacerbation and ACS ED Course Sepsis order set initiated ECG CXR Vanc 1g IV once Zosyn 4.5g IV once for empiric abx Ofirmev 1g IV once for fever Zofran 4mg IV once for nausea Duo-neb x3 and Solumedrol for COPD exacerbation ECG w/ sinus rhythm; HR 78; 1st degree AV block, [place] 230; QTc 458; no axis deviation; 05/18/19 03:57 Influenza neg 05/18/19 06:50 No leukocytosis No anemia Lytes overall unremarkable Mild APRYL, Cr 1.8, BUN 55.6 -Will give NS 500cc once LFTs mildly elevated, denies abdominal pain, EtOH, vomiting, or hepatitis Trop I neg BNP elevated but at baseline Plan for admission for APRYL, COPD exacerbation/bronchitis Pt signed out to [facility] Admitting Discharge - Discharge Information Problems reviewed: Yes Clinical Impression/Diagnosis: COPD exacerbation, APRYL (acute kidney injury), Bronchitis Condition: Fair - Admission Yes - Follow up/Referral - Patient Discharge Instructions - Post Discharge Activity
[2019-05-18] MEDS ORDERED: methylPREDNISolone NA SUCC 125 MG/2 ML VIAL IVPB ONE (03:17)
[2019-05-18] MEDS ORDERED: PIPERACILLIN/TAZOB 4.5 GM 4.5 GM in DEXTROSE 5%-WATER 100 ML IVPB ONE (03:29)
[2019-05-18] MEDS ORDERED: ACETAMINOPHEN 1000 MG/100 ML VIAL (NON FORMULARY) IVPB ONE (03:30)
[2019-05-18] MEDS ORDERED: ONDANSETRON 4 MG/2 ML VIAL IVPUSH ONE (03:39)
[2019-05-18] MEDS ORDERED: VANCOMYCIN 1 GM in D5W (PRE-DOCKED) 1,000 MG/250 ML IVPB ONE (03:47)
[2019-05-18] MEDS ORDERED: ONDANSETRON 4 MG/2 ML VIAL ONE (03:49)
[2019-05-18] MEDS ORDERED: ACETAMINOPHEN INJECTION 100 ML IVPB ONE ×2 (03:49→20:38)
[2019-05-18] MEDS ORDERED: VANCOMYCIN 1 GRAM (PRE-DOCKED) 1,000 MG/250 ML BAG IVPB ONE (03:49)
[2019-05-18] MEDS ORDERED: PIPERACILLIN/TAZOB 4.5 GM 4.5 GM/100 ML BAG IVPB ONE (03:49)
[2019-05-18] MEDS ORDERED: ALBUTEROL SO4 2.5/IPRATROPIUM 0.5 INH SOL 3 ML VIAL.NEB. NEB ONE (03:49)
[2019-05-18] MEDS ORDERED: methylPREDNISolone NA SUCC 125 MG/2 ML VIAL ONE (03:50)
[2019-05-18] MEDS: ALBUTEROL SO4 2.5/IPRATROPIUM 0.5 INH SOL 3 ML VIAL.NEB. NEB SCH ×6 (03:55→22:08)
[2019-05-18 03:56] LABS: BASO % 0.5 % (0-2.0); EOS % 0.7 % (0-4.5); HEMATOCRIT 38.1 % (35.4-49); HEMOGLOBIN 12.5 GM/dL (11.7-16.9); LYMPH % 7.1 % (8-40); MCHC 32.8 g/dl (32.0-35.9); MEAN CELL VOLUME 76.3 fl (80-96); MEAN PLT VOLUME 8.2 fl (7.5-11.1); MONO % 6.4 % (3.8-10.2); NEUT % 85.3 % (42.8-82.8); PLATELET COUNT 152 K/MM3 (134-434); RDW 18.7 % (11.9-15.9); WHITE BLOOD COUNT 7.9 K/mm3 (4.0-10.0)
[2019-05-18 03:59] LABS: VENOUS PC02 34.3 mmHg (38-52); VENOUS PH 7.33 (7.31-7.41)
[2019-05-18 04:00] LABS: VENOUS PO2 < 49 mmHg (28-48)
[2019-05-18 04:08] LABS: INR 1.08 (0.83-1.09); PROTHROMBIN TIME (PATIENT) 12.8 SEC (9.7-13.0)
[2019-05-18 04:11] LABS: ACTIVATED PTT 32.4 SECONDS (25.2-36.5)
[2019-05-18 04:20] LABS: ALBUMIN 3.3 g/dl (3.4-5.0); BILIRUBIN,TOTAL 0.4 mg/dL (0.2-1); BLOOD UREA NITROGEN 55.6 mg/dL (7-18); CALCIUM 8.1 mg/dL (8.5-10.1); CREATININE 1.8 mg/dL (0.55-1.3); POTASSIUM 4.5 mmol/L (3.5-5.1); TOT PROT 6.7 g/dl (6.4-8.2)
[2019-05-18 04:21] LABS: N-TERMINAL BNP 1370.6 pg/ml (5-450)
[2019-05-18] MEDS ORDERED: SODIUM CHLORIDE 0.9% 500 ML INFUS.BAG IV ONE (05:00)
--- NOTE | 2019-05-18 05:34 | PN ---
Teaching Attending Note Name of Resident: Florina Triana ATTENDING PHYSICIAN STATEMENT I saw and evaluated the patient. I reviewed the resident's note and discussed the case with the resident. I agree with the resident's findings and plan as documented. SUBJECTIVE: Patient is a 78 year old man with a PMH of COPD, HFrEF (ischemic cardiomayopathy ), ICD, HTN, CAD (s/p CABG - triple bypass; 4 stents), DM, CKD, Frequent falls, Kidney stones, Gout, Achalasia, and Partial gastrectomy who presents for evaluation of 4 days of generalized weakness, fatigue, productive cough, and wheezing. Patient has been compliant with his medications. Has had nausea with small amounts of spit up without actual vomiting. Denies chest pain, abdominal pain, fever, chills, abdominal pain, headache, frequency, dysuria, hematuria, diarrhea, or blood in his stool. Former smoker and cocaine user. No recent travel. His was recently discharged from [facility] and come home with a pneumonia. Denies alcohol, tobacco or illicit drug use. OBJECTIVE: Alert Vital Signs Period Temp Pulse Resp BP Sys/Garcia Pulse Ox Last 24 Hr 97.9 F-101.3 F 82 20 110/64 93 HEENT: No Jaundice, eye redness or discharge, PERRLA, EOMI. Normocephalic, atraumatic. External ears are normal and hearing is grossly intact. No nasal discharge. Neck: Supple, nontender. No palpable adenopathy or thyromegaly. No JVD Chest: Good effort. Intermittent wheezing. Clear to percussion. Heart: Regular. No S3, rub or murmur Abdomen: Not distended, soft, Ventral hernia; mild lower abdominal tenderness and no HSM. No rebound or guarding. Normal bowel sounds. Ext: Peripheral pulses intact. No leg edema. Skin: Warm and dry. No petechiae, rash or ecchymosis. Neuro: Alert. Oriented x3. CN 2-12 grossly intact. Sensation grossly intact in all four extremities and DTR are symmetric. Psych: Appropriate mood and affect. Good insight. Home Medications Medication Instructions Recorded Carvedilol 3.125 mg PO BID 12/08/18 Escitalopram Oxalate [Lexapro -] 20 mg PO DAILY 12/08/18 Rosuvastatin Calcium [Crestor] 20 mg PO HS 12/08/18 Insulin Glargine,Hum.rec.anlog 58 units SQ HS 01/11/19 [Lantus Solostar PEN -] Tamsulosin HCl 0.4 mg PO DAILY 01/11/19 Albuterol 0.083% Nebulizer Fatuma 1 amp NEB ONCE 04/07/19 [Ventolin 0.083% Nebulizer Soln -] Clopidogrel Bisulfate [Clopidogrel] 75 mg PO DAILY 04/07/19 Droxidopa [Northera] 100 mg PO DAILY 04/07/19 Insulin Lispro [Humalog Ponce 10 - 34 unit SQ TID 04/07/19 Kwikpen] Melatonin 10 mg PO HS 04/07/19 Sacubitril/Valsartan [Entresto 24 1 each PO BID 04/07/19 mg-26 mg Tablet] Abnormal Lab Results 05/18/19 05/18/19 05/18/19 03:30 03:30 03:30 MCV 76.3 L MCH 25.0 L RDW 18.7 H Neutrophils % 85.3 H D Lymphocytes % 7.1 L D POC VBG pCO2 POC VBG pO2 VBG HCO3 VBG O2 Sat (Arcenio) VBG Base Excess Sodium 135 L Chloride 109 H Carbon Dioxide 19 L BUN 55.6 H Creatinine 1.8 H Random Glucose 184 H Calcium 8.1 L AST 38 H ALT 77 H B-Natriuretic Peptide 1370.6 H Albumin 3.3 L 05/18/19 03:30 MCV MCH RDW Neutrophils % Lymphocytes % POC VBG pCO2 34.3 L POC VBG pO2 < 49 H VBG HCO3 17.6 L VBG O2 Sat (Arcenio) 49.9 L VBG Base Excess -7.0 L Sodium Chloride Carbon Dioxide BUN Creatinine Random Glucose Calcium AST ALT B-Natriuretic Peptide Albumin ASSESSMENT AND PLAN: 1. COPD exacerbation - Likely precipitated by viral URI or atypical pneumonia. Flu swab is negative. CXR shows no acute infiltrate and left upper chest pacemaker. EKG shows NSR with 1o AV block and inferior infarct of undetermined age. Will get urinalysis STAT, send urine for legionella antigen, RSV test and treat with duoneb, solumedrol, symbicort, IV azithromycin, ceftriaxone and supplemental O2. Consult Surgery for ventral hernia. Will continue comprehensive care for all of patients comorbid conditions. 2. Hypoalbuminemia - Possibly due to combined effects of malnutrition and inflammation associated with comorbid chronic conditions. Will ensure adequate dietary protein intake and also consult oracle fusion middleware architect. UA pending. 3. Uncontrolled DM For now, we will hold the home diabetes drugs and implement sliding scale insulin regimen. Provide comprehensive diabetes care with patient teaching and counseling about the importance of adherence to prescribed diabetes regimen, euglycemia, eye care and foot care. 4. CKD with APRYL - May have superimposed dehydration and/or impaired renal perfusion due to CHF - most recent LVEF was 25-30%. Get urinalysis, kidney sonogram, CPK, phosphate, uric acid, hydrate orally and monitor urine output. Will consult nephrology and avoid nephrotoxic agents such as NSAIDS, aminoglycosides, contrast dyes and certain Alternative medicine products. 5. Hypertension - BP is low to normal. Patient on Droxidopa. No need for any other antihypertensive drugs. On Entresto and Carvedilol. 6. DVT prophylaxis - Heparin 5000u sq tid. 7. Advance directives - Full code
--- NOTE | 2019-05-18 06:45 | HP ---
CHIEF COMPLAINT: generalized weakness , cough, subjective fevers PCP:Mari HISTORY OF PRESENT ILLNESS: 78 yo F LV sysolic function dysfunction s/p ICD placement, CAD s/p CABG, PCI/ stent, HTN, hyperlipidemia, PAD s/p fem/pop Bypass, fem-pop bypass, DM, COPD, PUD s/p Bilroth II gastrectomy, achalasia , Heller's myomectomy, gout, kidney stones, CKD, BPH. presents to ED with generalized weakness, subjective fevers ( 101) and a non productive cough. pt states the symptoms began 4 days ago and has progressively worsened since then. he states that he feels so weak that it is hard for him to walk. he states his was recently DC from [facility] and she is home with pneumonia. ER course was notable for: (1)cbc, cmp (2)influenza neg (3)solumedrol 25, duonebs, vanc, zosyn Recent Travel: denies PAST MEDICAL HISTORY: see HPI PAST SURGICAL HISTORY: fem - pop bypass hernia surgery CABG, PCI, stent ICD kidney stone cholecystectomy Social History: Smoking: Alcohol: Drugs: Allergies pregabalin [From Lyrica] Allergy (Severe, Verified 05/18/19 03:26) vertigo/fainted HOME MEDICATIONS: Home Medications Medication Instructions Recorded Carvedilol 3.125 mg PO BID 12/08/18 Escitalopram Oxalate [Lexapro -] 20 mg PO DAILY 12/08/18 Rosuvastatin Calcium [Crestor] 20 mg PO HS 12/08/18 Insulin Glargine,Hum.rec.anlog 58 units SQ HS 01/11/19 [Lantus Solostar PEN -] Tamsulosin HCl 0.4 mg PO DAILY 01/11/19 Albuterol 0.083% Nebulizer Fatuma 1 amp NEB ONCE 04/07/19 [Ventolin 0.083% Nebulizer Soln -] Clopidogrel Bisulfate [Clopidogrel] 75 mg PO DAILY 04/07/19 Droxidopa [Northera] 100 mg PO DAILY 04/07/19 Insulin Lispro [Humalog Ponce 10 - 34 unit SQ TID 04/07/19 Kwikpen] Melatonin 10 mg PO HS 04/07/19 Sacubitril/Valsartan [Entresto 24 1 each PO BID 04/07/19 mg-26 mg Tablet] REVIEW OF SYSTEMS CONSTITUTIONAL: Present: generalized weakness , fever Absent: chills, diaphoresis, malaise, loss of appetite, weight change HEENT: Absent: rhinorrhea, nasal congestion, throat pain, throat swelling, difficulty swallowing, mouth swelling, ear pain, eye pain, visual changes CARDIOVASCULAR: Absent: chest pain, syncope, palpitations, irregular heart rate, lightheadedness , peripheral edema RESPIRATORY: Present: cough, orthopnea Absent: shortness of breath, dyspnea with exertion, wheezing, stridor, hemoptysis GASTROINTESTINAL: Present: nausea Absent: abdominal pain, abdominal distension, vomiting, diarrhea, constipation , melena, hematochezia GENITOURINARY: Present: decreased frequency Absent: dysuria, frequency, urgency, hesitancy, hematuria, flank pain, genital pain MUSCULOSKELETAL: Absent: myalgia, arthralgia, joint swelling, back pain, neck pain SKIN: Absent: rash, itching, pallor HEMATOLOGIC/IMMUNOLOGIC: Absent: easy bleeding, easy bruising, lymphadenopathy, frequent infections ENDOCRINE: Absent: unexplained weight gain, unexplained weight loss, heat intolerance, cold intolerance NEUROLOGIC: Present: headache, dizziness, unstready gait Absent: focal weakness or paresthesias, seizure, mental status changes, bladder or bowel incontinence PSYCHIATRIC: Absent: anxiety, depression, suicidal or homicidal ideation, hallucinations. PHYSICAL EXAMINATION Vital Signs - 24 hr 05/18/19 05/18/19 03:10 03:50 Temperature 97.9 F 101.3 F H Pulse Rate 82 Respiratory 20 Rate Blood Pressure 110/64 O2 Sat by Pulse 93 L Oximetry (%) GENERAL: Awake, alert, and fully oriented, in no acute distress. elderly male HEAD: Normal with no signs of trauma. EYES: L Pupil equal, round and reactive to light,R pupil is sluggish, extraocular movements intact EARS, NOSE, THROAT: oropharynx clear without exudates. Moist mucous membranes. NECK: Normal range of motion, supple LUNGS: Breath sounds decreased, wheezes heard b/l anteriorly . No accessory muscle use. HEART: Regular rate and rhythm, normal S1 and S2 ABDOMEN: Soft, nontender, not distended, normoactive bowel sounds,suprapubic hernia tender to palpation MUSCULOSKELETAL: Normal range of motion at all joints. No bony deformities or tenderness. No CVA tenderness. UPPER EXTREMITIES: 2+ pulses, warm, well-perfused. No cyanosis. No clubbing. No peripheral edema. LOWER EXTREMITIES: 2+ pulses, warm, well-perfused. No calf tenderness. No peripheral edema. NEUROLOGICAL: Cranial nerves II-XII intact. Normal speech. PSYCHIATRIC: Cooperative. Good eye contact. Appropriate mood and affect. SKIN: Warm, dry, normal turgor, no rashes or lesions noted, normal capillary refill. finger to nose intact heel to shah abnormal on R orthostatic neg Laboratory Last Values WBC 7.9 K/mm3 (4.0-10.0) 05/18/19 03:30 RBC 5.00 M/mm3 (4.00-5.60) 05/18/19 03:30 Hgb 12.5 GM/dL (11.7-16.9) 05/18/19 03:30 Hct 38.1 % (35.4-49) D 05/18/19 03:30 MCV 76.3 fl (80-96) L 05/18/19 03:30 MCH 25.0 pg (25.7-33.7) L 05/18/19 03:30 MCHC 32.8 g/dl (32.0-35.9) 05/18/19 03:30 RDW 18.7 % (11.9-15.9) H 05/18/19 03:30 Plt Count 152 K/MM3 (134-434) 05/18/19 03:30 MPV 8.2 fl (7.5-11.1) 05/18/19 03:30 Absolute Neuts (auto) 6.7 K/mm3 (1.5-8.0) 05/18/19 03:30 Neutrophils % 85.3 % (42.8-82.8) H D 05/18/19 03:30 Lymphocytes % 7.1 % (8-40) L D 05/18/19 03:30 Monocytes % 6.4 % (3.8-10.2) 05/18/19 03:30 Eosinophils % 0.7 % (0-4.5) 05/18/19 03:30 Basophils % 0.5 % (0-2.0) 05/18/19 03:30 Nucleated RBC % 0 % (0-0) 05/18/19 03:30 PT with INR 12.80 SEC (9.7-13.0) 05/18/19 03:30 INR 1.08 (0.83-1.09) 05/18/19 03:30 PTT (Actin FS) 32.4 SECONDS (25.2-36.5) 05/18/19 03:30 VBG pH 7.33 (7.31-7.41) 05/18/19 03:30 POC VBG pCO2 34.3 mmHg (38-52) L 05/18/19 03:30 POC VBG pO2 < 49 mmHg (28-48) H 05/18/19 03:30 VBG HCO3 17.6 mmol/L (23-29) L 05/18/19 03:30 VBG O2 Sat (Arcenio) 49.9 % (70-80) L 05/18/19 03:30 VBG Base Excess -7.0 meq/l (-2-2) L 05/18/19 03:30 Sodium 135 mmol/L (136-145) L 05/18/19 03:30 Potassium 4.5 mmol/L (3.5-5.1) 05/18/19 03:30 Chloride 109 mmol/L (98-107) H 05/18/19 03:30 Carbon Dioxide 19 mmol/L (21-32) L 05/18/19 03:30 Anion Gap 8 MMOL/L (8-16) 05/18/19 03:30 BUN 55.6 mg/dL (7-18) H 05/18/19 03:30 Creatinine 1.8 mg/dL (0.55-1.3) H 05/18/19 03:30 Est GFR (CKD-EPI)AfAm 41.45 05/18/19 03:30 Est GFR (CKD-EPI)NonAf 35.76 05/18/19 03:30 Random Glucose 184 mg/dL (74-106) H 05/18/19 03:30 Lactic Acid 1.1 mmol/L (0.4-2.0) 05/18/19 03:30 Calcium 8.1 mg/dL (8.5-10.1) L 05/18/19 03:30 Total Bilirubin 0.4 mg/dL (0.2-1) 05/18/19 03:30 AST 38 U/L (15-37) H 05/18/19 03:30 ALT 77 U/L (13-61) H 05/18/19 03:30 Alkaline Phosphatase 107 U/L (45-117) 05/18/19 03:30 Creatine Kinase 42 U/L (26-308) 05/18/19 03:30 Troponin I 0.02 ng/ml (0.00-0.05) 05/18/19 03:30 B-Natriuretic Peptide 1370.6 pg/ml (5-450) H 05/18/19 03:30 Total Protein 6.7 g/dl (6.4-8.2) 05/18/19 03:30 Albumin 3.3 g/dl (3.4-5.0) L 05/18/19 03:30 Influenza A (Rapid) Negative (Negative) 05/18/19 05:00 Influenza B (Rapid) Negative (Negative) 05/18/19 05:00 ASSESSMENT/PLAN: 78 yo F LV sysolic function dysfunction s/p ICD placement, CAD s/p CABG, PCI/ stent, HTN, hyperlipidemia, PAD s/p fem/pop Bypass, fem-pop bypass, DM, COPD, PUD s/p Bilroth II gastrectomy, achalasia , Heller's myomectomy, gout, kidney stones, CKD, BPH. admitted for copd exacerbation Acute COPD exacerbation -likely 2/2 viral URI vs atypical pna -influenza neg . pending U legionella, RSV -CXR : no acute changes -c/w solumedrol 40 - c/w duonebs - c/w ventolin as needed -c/w symbicort - rocephin , azithro HFrEF - acute exac vs chronic - BNP> 1000 -hold lasix in setting of APRYL, consider re-starting depending on volume status - c/w coreg -I/Os, daily weights - EKG: NSR, 1st deg block, no changes from prior APRYL on CKD -Cr 1.8 - hold lasix, entresto -continue to monitor -pending UA - renal /bladder u/s Ventral Hernia - pt requesting surgery consult DM - ISS , BGM DVT ppx: Hep F/E/ N -monitor lytes -sodium controlled, diabetic diet Dispo: admit to tele ATTENDING PHYSICIAN STATEMENT I saw and evaluated the patient. I reviewed the resident's note and discussed the case with the resident. I agree with the resident's findings and plan as documented. SUBJECTIVE: OBJECTIVE: ASSESSMENT AND PLAN:
[2019-05-18] MEDS ORDERED: ALBUTEROL SO4 0.083% IH SOL 2.5 MG/3 ML VIAL.NEB. NEB SCH (07:30)
[2019-05-18 07:46] LABS: BASO % 0.3 % (0-2.0); EOS % 0.1 % (0-4.5); HEMATOCRIT 35.6 % (35.4-49); HEMOGLOBIN 11.7 GM/dL (11.7-16.9); LYMPH % 5.4 % (8-40); MCH 25.2 pg (25.7-33.7); MCHC 32.7 g/dl (32.0-35.9); MEAN CELL VOLUME 77.1 fl (80-96); MEAN PLT VOLUME 8.4 fl (7.5-11.1); MONO % 2.2 % (3.8-10.2); PLATELET COUNT 130 K/MM3 (134-434); RBC 4.62 M/mm3 (4.00-5.60); RDW 18.4 % (11.9-15.9); WHITE BLOOD COUNT 7.3 K/mm3 (4.0-10.0)
[2019-05-18 07:55] LABS: BILIRUBIN,TOTAL 0.6 mg/dL (0.2-1); BLOOD UREA NITROGEN 57.2 mg/dL (7-18); CALCIUM 7.8 mg/dL (8.5-10.1); CREATININE 1.9 mg/dL (0.55-1.3); MAGNESIUM 2.1 mg/dL (1.8-2.4); PHOSPHOROUS 3.6 mg/dL (2.5-4.9); POTASSIUM 4.5 mmol/L (3.5-5.1); TOT PROT 6.3 g/dl (6.4-8.2)
[2019-05-18] MEDS ORDERED: AZITHROMYCIN IVPB 500 MG in DEXTROSE 5%-WATER - 250 ML IVPB ONE (08:00)
[2019-05-18] MEDS ORDERED: CEFTRIAXONE 1 GM in DEXTROSE 5%-WATER - 50 ML IVPB ONE (08:00)
[2019-05-18] MEDS: INSULIN SLIDING SCALE (NOVOLOG) 1 VIAL SQ SCH ×4 (08:50→21:43)
[2019-05-18] MEDS ORDERED: DROXIDOPA 100 MG PO SCH (10:00)
[2019-05-18] MEDS ORDERED: AZITHROMYCIN IVPB 500 MG/250 ML BAG IVPB ONE (10:23)
[2019-05-18] MEDS: methylPREDNISolone NA SUCC 125 MG/2 ML VIAL IVPB SCH ×2 (10:52→17:35)
[2019-05-18] MEDS: CLOPIDOGREL BISULFATE 75 MG TABLET (FP) PO SCH (10:52)
[2019-05-18] MEDS: ESCITALOPRAM OXALATE 20 MG TABLET (FP) PO SCH (10:52)
[2019-05-18] MEDS: CARVEDILOL 3.125 MG TABLET (FP) PO SCH ×2 (10:52→21:37)
[2019-05-18] MEDS: TAMSULOSIN HCL 0.4 MG CAP PO SCH (10:52)
--- NOTE | 2019-05-18 11:28 | EKG ---
Test Reason : Blood Pressure : / mmHG Vent. Rate : 078 BPM Atrial Rate : 078 BPM P-R Int : 230 ms QRS Dur : 128 ms QT Int : 402 ms P-R-T Axes : 079 -11 102 degrees QTc Int : 458 ms SINUS RHYTHM WITH 1ST DEGREE A-V BLOCK NON-SPECIFIC INTRA-VENTRICULAR CONDUCTION BLOCK CANNOT RULE OUT INFERIOR INFARCT , AGE UNDETERMINED ABNORMAL ECG WHEN COMPARED WITH ECG OF 07-APR-2019 05:45, NONSPECIFIC T WAVE ABNORMALITY NO LONGER EVIDENT IN INFERIOR LEADS Confirmed by THOMAS EGAN, TAWNY ([id number]) on 05/18/2019 11:28:29 AM Referred By: Confirmed By:TAWNY GUZMAN MD
[2019-05-18 11:44] LABS: ANISOCYTOSIS 2+; MACROCYTOSIS 0; OVALOCYTE 1+; PLATELET ESTIMATE DECREASED; TEAR DROP CELLS 1+
--- NOTE | 2019-05-18 11:47 | CONSULT ---
Consult Consult Specialty:: Nephrology Reason for Consultation:: anselmo - History of Present Illness Chief Complaint: weakness and fevers History of Present Illness: Pt is a 78 year old male with pmhx of cad, ckd, PAD, DM, COPD, achalasia, penile prosthesis and nephrolothiasis who presents with fevers and weakness. He was found to have elevated mechanical ordnance assembler and I was called to evaluate him. He denies shortness of breath. He complains of decrease appetite. He does complain of a cough. He has had these symptoms for the last four days. He denies nsaid use. He normally ambulated however finds it difficult to walk. - History Source History Provided By: Patient, Medical Record - Past Medical History Cardio/Vascular: Yes: CAD, CHF, HTN, Hyperlipdemia, MT Pulmonary: Yes: Asthma, Bronchitis, COPD, Pneumonia Gastrointestinal: Yes: Constipation Renal/: Yes: BPH Musculoskeletal: Yes: Chronic low back pain, Osteoarthritis Endocrine: Yes: Diabetes Mellitus - Past Surgical History Past Surgical History: Yes: CABG, Cholecystectomy - Alcohol/Substance Use Hx Alcohol Use: Yes History of Substance Use: reports: None - Smoking History Smoking history: Former smoker Have you smoked in the past 12 months: No Aproximately how many cigarettes per day: 30 If you are a former smoker, when did you quit?: 1 year ago - Social History Usual Living Arrangement: With Spouse ADL: Independent Occupation: retired: worked for [employer] History of Recent Travel: No Home Medications - Allergies Allergies/Adverse Reactions: Allergies Allergy/AdvReac Type Severity Reaction Status Date / Time pregabalin [From Lyrica] Allergy Severe Verified 05/18/19 03:26 - Home Medications Home Medications: Ambulatory Orders Carvedilol 3.125 mg PO BID 12/08/18 Escitalopram Oxalate [Lexapro -] 20 mg PO DAILY 12/08/18 Rosuvastatin Calcium [Crestor] 20 mg PO HS 12/08/18 Insulin Glargine,Hum.rec.anlog [Lantus Solostar PEN -] 58 units SQ HS 01/11/19 Tamsulosin HCl 0.4 mg PO DAILY 01/11/19 Albuterol 0.083% Nebulizer Fatuma [Ventolin 0.083% Nebulizer Soln -] 1 amp NEB ONCE 04/07/19 Clopidogrel Bisulfate [Clopidogrel] 75 mg PO DAILY 04/07/19 Droxidopa [Northera] 100 mg PO DAILY 04/07/19 Insulin Lispro [Humalog Ponce Kwikpen] 10 - 34 unit SQ TID 04/07/19 Melatonin 10 mg PO HS 04/07/19 Sacubitril/Valsartan [Entresto 24 mg-26 mg Tablet] 1 each PO BID 04/07/19 Family Medical History Family History: Denies Review of Systems - Review of Systems Constitutional: reports: Malaise Eyes: reports: No Symptoms HENT: reports: No Symptoms Neck: reports: No Symptoms Cardiovascular: reports: No Symptoms Respiratory: reports: Cough, SOB on Exertion Gastrointestinal: reports: No Symptoms Genitourinary: reports: No Symptoms Musculoskeletal: reports: Muscle Weakness Neurological: reports: No Symptoms Endocrine: reports: No Symptoms Hematology/Lymphatic: reports: No Symptoms Physical Exam Vital Signs: Vital Signs Temperature 101.3 F H 05/18/19 03:50 Pulse Rate 66 05/18/19 06:05 Respiratory Rate 16 05/18/19 06:05 Blood Pressure 94/50 L 05/18/19 06:05 O2 Sat by Pulse Oximetry (%) 91 L 05/18/19 06:05 Constitutional: Yes: Calm Eyes: Yes: Conjunctiva Clear HENT: Yes: Atraumatic Neck: Yes: Supple Cardiovascular: Yes: S1, S2 Respiratory: Yes: CTA Bilaterally Gastrointestinal: Yes: Soft Renal/: Yes: WNL Musculoskeletal: Yes: WNL Edema: No Neurological: Yes: Oriented Psychiatric: Yes: Oriented Labs: CBC, BMP 05/18/19 06:39 05/18/19 06:39 Laboratory Tests 04/07/19 04/09/19 04/10/19 05:05 06:10 05:45 Creatinine 1.8 H 1.3 1.4 H 04/11/19 05/18/19 05/18/19 05:50 03:30 06:39 Creatinine 1.3 1.8 H 1.9 H Imaging - Results Chest X-ray: Report Reviewed Problem List - Problems (1) Achalasia Code(s): K22.0 - ACHALASIA OF CARDIA (2) Acute kidney injury Code(s): N17.9 - ACUTE KIDNEY FAILURE, UNSPECIFIED Assessment/Plan Current Medications Generic Name Dose Route Start Last Admin Trade Name Freq PRN Reason Stop Dose Admin Albuterol Sulfate 1 amp 05/18/19 07:30 Ventolin 0.083% Nebulizer Soln - NEB ONCE KADEEM Albuterol/Ipratropium 1 amp 05/18/19 08:00 Duoneb - NEB RQID KADEEM Carvedilol 3.125 mg 05/18/19 10:00 05/18/19 10:52 Coreg - PO 3.125 mg BID KADEEM Administration Clopidogrel Bisulfate 75 mg 05/18/19 10:00 05/18/19 10:52 Plavix - PO 75 mg DAILY [facility] Administration Escitalopram Oxalate 20 mg 05/18/19 10:00 05/18/19 10:52 Lexapro - PO 20 mg DAILY [facility] Administration Heparin Sodium (Porcine) 5,000 unit 05/18/19 14:00 Heparin - SQ TID [facility] Azithromycin 250 mg/ Dextrose 250 mls @ 250 mls/hr 05/19/19 10:00 IVPB DAILY [facility] Insulin Aspart 1 vial 05/18/19 11:00 05/18/19 11:08 Novolog Vial Sliding Scale - SQ 10 units ACHS [facility] Administration Protocol Methylprednisolone Sodium Succinate 40 mg 05/18/19 07:30 05/18/19 10:52 Solu-Medrol - IVPB 40 mg Q8H-IV KADEEM Administration Non-Formulary Medication 100 mg 05/18/19 10:00 Droxidopa [Northera] PO DAILY [facility] Rosuvastatin Calcium 20 mg 05/18/19 22:00 Crestor - PO HS [facility] Tamsulosin HCl 0.4 mg 05/18/19 08:30 05/18/19 10:52 Flomax - PO 0.4 mg DAILY@0830 [facility] Administration Impression 1. CKD 2. dehydration 3. PVD 4. HLD 5. CHF 6. atrophic left kidney Plan - will start gentle hydration - monitor volume status - check urine lytes and mechanical ordnance assembler - avoid nsaids - abx per medical team
--- NOTE | 2019-05-18 12:12 | PN ---
Progress Note (short form) - Note Progress Note: Patient is a 78yoF with LV sysolic function dysfunction s/p ICD placement, CAD s/p CABG, PCI/stent, HTN, hyperlipidemia, PAD s/p fem/pop Bypass, fem-pop bypass , DM, COPD, PUD s/p Bilroth II gastrectomy, achalasia , Heller's myomectomy, gout, kidney stones, CKD, BPH, presented to ED with generalized weakness, subjective fevers ( 101) and a non productive cough. Patient states that he does not feel well, coughing non productive. Vital Signs Temperature 101.3 F H 05/18/19 03:50 Pulse Rate 66 05/18/19 06:05 Respiratory Rate 16 05/18/19 06:05 Blood Pressure 94/50 L 05/18/19 06:05 O2 Sat by Pulse Oximetry (%) 91 L 05/18/19 06:05 Chest: Wheezing scatthered CBCD WBC 7.3 K/mm3 (4.0-10.0) 05/18/19 06:39 RBC 4.62 M/mm3 (4.00-5.60) 05/18/19 06:39 Hgb 11.7 GM/dL (11.7-16.9) 05/18/19 06:39 Hct 35.6 % (35.4-49) 05/18/19 06:39 MCV 77.1 fl (80-96) L 05/18/19 06:39 MCHC 32.7 g/dl (32.0-35.9) 05/18/19 06:39 RDW 18.4 % (11.9-15.9) H 05/18/19 06:39 Plt Count 130 K/MM3 (134-434) L 05/18/19 06:39 MPV 8.4 fl (7.5-11.1) 05/18/19 06:39 CMP Sodium 136 mmol/L (136-145) 05/18/19 06:39 Potassium 4.5 mmol/L (3.5-5.1) 05/18/19 06:39 Chloride 109 mmol/L (98-107) H 05/18/19 06:39 Carbon Dioxide 16 mmol/L (21-32) L 05/18/19 06:39 Anion Gap 11 MMOL/L (8-16) 05/18/19 06:39 BUN 57.2 mg/dL (7-18) H 05/18/19 06:39 Creatinine 1.9 mg/dL (0.55-1.3) H 05/18/19 06:39 Random Glucose 213 mg/dL (74-106) H 05/18/19 06:39 Calcium 7.8 mg/dL (8.5-10.1) L 05/18/19 06:39 Total Bilirubin 0.6 mg/dL (0.2-1) 05/18/19 06:39 AST 32 U/L (15-37) 05/18/19 06:39 ALT 66 U/L (13-61) H 05/18/19 06:39 Alkaline Phosphatase 97 U/L (45-117) 05/18/19 06:39 Total Protein 6.3 g/dl (6.4-8.2) L 05/18/19 06:39 Albumin 3.0 g/dl (3.4-5.0) L 05/18/19 06:39 CARDIAC ENZYMES Creatine Kinase 42 U/L (26-308) 05/18/19 03:30 Troponin I 0.02 ng/ml (0.00-0.05) 05/18/19 06:39 Current Medications Generic Name Dose Route Start Last Admin Trade Name Alex PRN Reason Stop Dose Admin Albuterol Sulfate 1 amp 05/18/19 07:30 Ventolin 0.083% Nebulizer Soln - NEB ONCE KADEEM Albuterol/Ipratropium 1 amp 05/18/19 08:00 Duoneb - NEB RQID KADEEM Carvedilol 3.125 mg 05/18/19 10:00 05/18/19 10:52 Coreg - PO 3.125 mg BID KADEEM Administration Clopidogrel Bisulfate 75 mg 05/18/19 10:00 05/18/19 10:52 Plavix - PO 75 mg DAILY KADEEM Administration Escitalopram Oxalate 20 mg 05/18/19 10:00 05/18/19 10:52 Lexapro - PO 20 mg DAILY KADEEM Administration Heparin Sodium (Porcine) 5,000 unit 05/18/19 14:00 Heparin - SQ TID KADEEM Azithromycin 250 mg/ Dextrose 250 mls @ 250 mls/hr 05/19/19 10:00 IVPB DAILY [facility] Insulin Aspart 1 vial 05/18/19 11:00 05/18/19 11:08 Novolog Vial Sliding Scale - SQ 10 units ACHS KADEEM Administration Protocol Methylprednisolone Sodium Succinate 40 mg 05/18/19 07:30 05/18/19 10:52 Solu-Medrol - IVPB 40 mg Q8H-IV KADEEM Administration Non-Formulary Medication 100 mg 05/18/19 10:00 Droxidopa [Northera] PO DAILY [facility] Rosuvastatin Calcium 20 mg 05/18/19 22:00 Crestor - PO HS [facility] Tamsulosin HCl 0.4 mg 05/18/19 08:30 05/18/19 10:52 Flomax - PO 0.4 mg DAILY@0830 [facility] Administration Home Medications Medication Instructions Recorded Carvedilol 3.125 mg PO BID 12/08/18 Escitalopram Oxalate [Lexapro -] 20 mg PO DAILY 12/08/18 Rosuvastatin Calcium [Crestor] 20 mg PO HS 12/08/18 Insulin Glargine,Hum.rec.anlog 58 units SQ HS 01/11/19 [Lantus Solostar PEN -] Tamsulosin HCl 0.4 mg PO DAILY 01/11/19 Albuterol 0.083% Nebulizer Fatuma 1 amp NEB ONCE 04/07/19 [Ventolin 0.083% Nebulizer Soln -] Clopidogrel Bisulfate [Clopidogrel] 75 mg PO DAILY 04/07/19 Droxidopa [Northera] 100 mg PO DAILY 04/07/19 Insulin Lispro [Humalog Ponce 10 - 34 unit SQ TID 04/07/19 Kwikpen] Melatonin 10 mg PO HS 04/07/19 Sacubitril/Valsartan [Entresto 24 1 each PO BID 04/07/19 mg-26 mg Tablet] EKG: NSR, 1st deg block, no changes from prior Assessment and plan: Patient is a 78yoF LV sysolic function dysfunction s/p ICD placement, CAD s/p CABG, PCI/stent, HTN, hyperlipidemia, PAD s/p fem/pop Bypass, fem-pop bypass, DM , COPD, PUD s/p Bilroth II gastrectomy, achalasia , Heller's myomectomy, gout, kidney stones, CKD, BPH. admitted for acute copd exacerbation # Acute COPD exacerbation possible due to viral URI ,influenza neg . still U legionella antigen not done, please follow continue with home meds and nebsthat ordered. lula mena, pulmonary consult # HFrEF: acute over chronic exacerbation BNP> 1000, lasix on hold for now continue coreg, I/Os, daily weights #APRYL on CKD 1.8-->1.9 today , nephro on the case hold entresto, renal /bladder u/s pendind result #Hx of depression on Celexa : hold celexa for now till completion of zithromax since Qtc 469, will increase further #Hx of CAD s/p Cabg on plavix/coerg continue #T2DM on insulin continue with ss with coverage and levemir in am # Ventral Hernia: pt requesting surgery consult # DM: ISS , BGM DVT ppx: Hep Visit type - Emergency Visit Emergency Visit: Yes ED Registration Date: 05/18/19 Care time: The patient presented to the Emergency Department on the above date and was hospitalized for further evaluation of their emergent condition. - New Patient This patient is new to me today: Yes Date on this admission: 05/18/19 - Critical Care Critical Care patient: No - Discharge Referral Referred to [facility] Med P.C.: No
[2019-05-18] MEDS: INSULIN (LEVEMIR) 100 UNITS/ML UNITS SQ SCH (12:30)
[2019-05-18] MEDS ORDERED: SODIUM CHLORIDE 1,000 ML IV SCH (13:45)
--- NOTE | 2019-05-18 14:07 | CON.PULM ---
Consult Consult Specialty:: PULMONARY Referred by:: Dr Navarro Reason for Consultation:: COPD - History of Present Illness Chief Complaint: shortness of breath History of Present Illness: 78yo male with h/o HTN, DM, hyperlipidemia, CAD s/p CABG, LV systolic dysfunction, PAD s/p fem-pop bypass, CKD, COPD, chronic hypoxic respiratory failure on home O2 who was admitted with worsening shortness of breath x 4 days. Denies chest pain or palpitations. +subjective fevers and chills. + nonproductive cough without wheezing. is also sick at home. Reports compliance with inhalers. He is a former smoker, quit a few years ago. - History Source History Provided By: Patient, Medical Record Limitations to Obtaining History: No Limitations - Past Medical History Cardio/Vascular: Yes: CAD, CHF, HTN, Hyperlipdemia, PA Pulmonary: Yes: Asthma, Bronchitis, COPD, Pneumonia Gastrointestinal: Yes: Constipation Renal/: Yes: BPH Musculoskeletal: Yes: Chronic low back pain, Osteoarthritis Endocrine: Yes: Diabetes Mellitus - Past Surgical History Past Surgical History: Yes: CABG, Cholecystectomy - Alcohol/Substance Use Hx Alcohol Use: Yes History of Substance Use: reports: None - Smoking History Smoking history: Former smoker Have you smoked in the past 12 months: No Aproximately how many cigarettes per day: 30 If you are a former smoker, when did you quit?: 1 year ago - Social History Usual Living Arrangement: With Spouse ADL: Independent Occupation: retired: worked for [employer] History of Recent Travel: No Home Medications - Allergies Allergies/Adverse Reactions: Allergies Allergy/AdvReac Type Severity Reaction Status Date / Time pregabalin [From Lyrica] Allergy Severe Verified 05/18/19 03:26 - Home Medications Home Medications: Ambulatory Orders Carvedilol 3.125 mg PO BID 12/08/18 Escitalopram Oxalate [Lexapro -] 20 mg PO DAILY 12/08/18 Rosuvastatin Calcium [Crestor] 20 mg PO HS 12/08/18 Insulin Glargine,Hum.rec.anlog [Lantus Solostar PEN -] 58 units SQ HS 01/11/19 Tamsulosin HCl 0.4 mg PO DAILY 01/11/19 Albuterol 0.083% Nebulizer Fatuma [Ventolin 0.083% Nebulizer Soln -] 1 amp NEB ONCE 04/07/19 Clopidogrel Bisulfate [Clopidogrel] 75 mg PO DAILY 04/07/19 Droxidopa [Northera] 100 mg PO DAILY 04/07/19 Insulin Lispro [Humalog Ponce [place]] 10 - 34 unit SQ TID 04/07/19 Melatonin 10 mg PO HS 04/07/19 Sacubitril/Valsartan [Entresto 24 mg-26 mg Tablet] 1 each PO BID 04/07/19 Review of Systems - Review of Systems Constitutional: reports: Fever, Weakness Eyes: denies: Recent Change in Vision HENT: denies: Nasal Congestion, Throat Pain Neck: denies: Stiffness, Tenderness Cardiovascular: reports: Shortness of Breath. denies: Chest Pain, Edema, Palpitations Respiratory: reports: Cough, SOB on Exertion. denies: Hemoptysis, Wheezing Gastrointestinal: denies: Abdominal Pain, Nausea, Vomiting Genitourinary: denies: Dysuria, Hematuria Neurological: denies: Dizziness, Headache Endocrine: denies: Unexplained Weight Loss Physical Exam Vital Sings: Vital Signs Temperature 101.3 F H 05/18/19 03:50 Pulse Rate 66 05/18/19 06:05 Respiratory Rate 16 05/18/19 06:05 Blood Pressure 94/50 L 05/18/19 06:05 O2 Sat by Pulse Oximetry (%) 91 L 05/18/19 06:05 Constitutional: Yes: Calm Eyes: Yes: EOM Intact, Other (injected sclera) HENT: Yes: Atraumatic, Normocephalic Neck: Yes: Supple, Trachea Midline Cardiovascular: Yes: Regular Rate and Rhythm Respiratory: Yes: Rhonchi ...Clubbing: No Gastrointestinal: Yes: Normal Bowel Sounds, Soft. No: Tenderness Edema: No Neurological: Yes: Alert, Oriented Labs: CBC, BMP 05/18/19 06:39 05/18/19 06:39 Imaging - Results Chest X-ray: Report Reviewed, Image Reviewed (no infiltrates) Problem List - Problems (1) COPD exacerbation Code(s): J44.1 - CHRONIC OBSTRUCTIVE PULMONARY DISEASE W (ACUTE) EXACERBATION Assessment/Plan Acute COPD Exacerbation URI Chronic Hypoxic Respiratory Failure CAD s/p CABG LV Systolic Dysfunction PAD PUD CKD HTN DM Hyperlipidemia - IV medrol - inhaled bronchodilators standing and PRN - O2 to keep SpO2 >90% - received empiric antibiotics in the ER, agree with azithromycin - DVT prophylaxis Thank you for this consult Srinivasan Mahajan MD
[2019-05-18] MEDS ORDERED: ALBUTEROL SO4 0.083% IH SOL 2.5 MG/3 ML VIAL.NEB. NEB PRN (14:09)
[2019-05-18] MEDS: HEPARIN NA (PORCINE) 5,000 UNITS/ML 1ML VIAL SQ SCH ×2 (14:19→21:39)
[2019-05-18] MEDS: SODIUM BICARBONATE 650 MG TABLET PO SCH ×2 (14:19→21:38)
[2019-05-18 16:43] LABS: EPI CELLS 1.1 /HPF (0-5/HPF); HYALINE CASTS 4 /lpf (0-8); URINE APPEARANCE CLEAR; URINE BACTERIA 0.2 /hpf (NEGATIVE); URINE BILIRUBIN NEGATIVE (NEGATIVE); URINE COLOR YELLOW; URINE GLUCOSE (UA) 2+ (NEGATIVE); URINE KETONE NEGATIVE (NEGATIVE); URINE LEUK ESTERASE 1+ (NEGATIVE); URINE NITRITE NEGATIVE (NEGATIVE); URINE PROTEIN 1+ (NEGATIVE); URINE RBC 1 /hpf (0-4); URINE UROBILINOGEN 0.2 mg/dL (0.2-1.0); URINE WBC 14 /hpf (0-5)
[2019-05-18 17:14] LABS: YEAST FEW (NEGATIVE)
[2019-05-18] MEDS ORDERED: methylPREDNISolone NA SUCC 40 MG/1 ML VIAL ONE (17:16)
[2019-05-18] MEDS: ROSUVASTATIN CA 20 MG TABLET (FP) PO SCH (21:38)
[2019-05-18] MEDS ORDERED: MELATONIN 5 MG TABLETS PO ONE (23:02)
[2019-05-19 01:45] VITALS: BMI 24.3
[2019-05-19] MEDS: methylPREDNISolone NA SUCC 125 MG/2 ML VIAL IVPB SCH ×3 (02:36→17:36)
[2019-05-19] MEDS: HEPARIN NA (PORCINE) 5,000 UNITS/ML 1ML VIAL SQ SCH ×3 (06:53→22:45)
[2019-05-19] MEDS: INSULIN SLIDING SCALE (NOVOLOG) 1 VIAL SQ SCH ×4 (06:55→22:46)
[2019-05-19] MEDS: INSULIN (LEVEMIR) 100 UNITS/ML UNITS SQ SCH (06:56)
[2019-05-19] MEDS: ALBUTEROL SO4 2.5/IPRATROPIUM 0.5 INH SOL 3 ML VIAL.NEB. NEB SCH ×4 (08:05→21:50)
[2019-05-19 09:28] LABS: BASO % 0.1 % (0-2.0); HEMATOCRIT 39.7 % (35.4-49); HEMOGLOBIN 12.8 GM/dL (11.7-16.9); LYMPH % 5.4 % (8-40); MCH 24.9 pg (25.7-33.7); MCHC 32.3 g/dl (32.0-35.9); MEAN CELL VOLUME 77.2 fl (80-96); MEAN PLT VOLUME 8.2 fl (7.5-11.1); MONO % 2.7 % (3.8-10.2); NEUT % 91.8 % (42.8-82.8); PLATELET COUNT 175 K/MM3 (134-434); RBC 5.14 M/mm3 (4.00-5.60); RDW 18.8 % (11.9-15.9); WHITE BLOOD COUNT 11.9 K/mm3 (4.0-10.0)
[2019-05-19] MEDS: SODIUM BICARBONATE 650 MG TABLET PO SCH ×2 (09:58→22:40)
[2019-05-19] MEDS: CARVEDILOL 3.125 MG TABLET (FP) PO SCH ×2 (09:58→22:39)
[2019-05-19] MEDS: CLOPIDOGREL BISULFATE 75 MG TABLET (FP) PO SCH (09:58)
[2019-05-19] MEDS: TAMSULOSIN HCL 0.4 MG CAP PO SCH (09:59)
[2019-05-19] MEDS ORDERED: FLU VACCINE QUAD 60 MCG/0.5 ML (MDV 19-20) IM ONE (10:00)
[2019-05-19 10:04] LABS: ALBUMIN 3.4 g/dl (3.4-5.0); BILIRUBIN,TOTAL 0.3 mg/dL (0.2-1); BLOOD UREA NITROGEN 58.6 mg/dL (7-18); CALCIUM 9.1 mg/dL (8.5-10.1); CREATININE 1.9 mg/dL (0.55-1.3); POTASSIUM 4.5 mmol/L (3.5-5.1); TOT PROT 7.4 g/dl (6.4-8.2)
--- NOTE | 2019-05-19 10:21 | PN ---
Progress Note (short form) - Note Progress Note: Breathing feels a little better today. Less SOB. No CP. No change in cough. Intake & Output 05/16/19 05/17/19 05/18/19 05/19/19 23:59 23:59 23:59 23:59 Intake Total 125 540 Balance 125 540 Weight 174 lb 14.4 oz 174 lb 10 oz Last Vital Signs Temp Pulse Resp BP Pulse Ox 97.3 F L 53 L 18 147/61 92 L 05/19/19 06:18 05/19/19 06:18 05/19/19 06:18 05/19/19 06:18 05/18/19 20:30 Active Medications Albuterol Sulfate (Ventolin 0.083% Nebulizer Soln -) 1 amp NEB Q4H PRN PRN Reason: SHORT OF BREATH/WHEEZING Albuterol/Ipratropium (Duoneb -) 1 amp NEB RQID [facility] Last Admin: 05/19/19 08:05 Dose: 1 amp Carvedilol (Coreg -) 3.125 mg PO BID [facility] Last Admin: 05/19/19 09:58 Dose: 3.125 mg Clopidogrel Bisulfate (Plavix -) 75 mg PO DAILY [facility] Last Admin: 05/19/19 09:58 Dose: 75 mg Escitalopram Oxalate (Lexapro -) 20 mg PO DAILY [facility] Last Admin: 05/18/19 10:52 Dose: 20 mg Heparin Sodium (Porcine) (Heparin -) 5,000 unit SQ TID [facility] Last Admin: 05/19/19 06:53 Dose: 5,000 unit Azithromycin 250 mg/ Dextrose 250 mls @ 250 mls/hr IVPB DAILY [facility] Sodium Chloride (Normal Saline -) 1,000 mls @ 50 mls/hr IV ASDIR [facility] Stop: 05/19/19 13:43 Last Admin: 05/18/19 14:51 Dose: 50 mls/hr Insulin Aspart (Novolog Vial Sliding Scale -) 1 vial SQ ACHS [facility]; Protocol Last Admin: 05/19/19 06:55 Dose: 4 units Insulin Detemir (Levemir Vial) 20 units SQ DAILY@0700 [facility] Last Admin: 05/19/19 06:56 Dose: 20 units Methylprednisolone Sodium Succinate (Solu-Medrol -) 40 mg IVPB Q8H-IV [facility] Last Admin: 05/19/19 09:59 Dose: 40 mg Non-Formulary Medication (Droxidopa [Northera]) 100 mg PO DAILY [facility] Rosuvastatin Calcium (Crestor -) 20 mg PO HS [facility] Last Admin: 05/18/19 21:38 Dose: 20 mg Sodium Bicarbonate (Sodium Bicarbonate -) 650 mg PO BID [facility] Last Admin: 05/19/19 09:58 Dose: 650 mg Tamsulosin HCl (Flomax -) 0.4 mg PO DAILY@0830 [facility] Last Admin: 05/19/19 09:59 Dose: 0.4 mg Constitutional: Yes: NAD Eyes: Yes: EOM Intact, Other (injected sclera) HENT: Yes: Atraumatic, Normocephalic Neck: Yes: Supple, Trachea Midline Cardiovascular: Yes: Regular Rate and Rhythm Respiratory: Yes: Bilateral scattered rhonchi and mild expiratory wheeze ...Clubbing: No Gastrointestinal: Yes: Normal Bowel Sounds, Soft. No: Tenderness Edema: No Neurological: Yes: Alert, Oriented Labs: Laboratory Results - last 24 hr 05/18/19 05/18/19 05/18/19 06:39 11:01 15:47 WBC RBC Hgb Hct MCV MCH MCHC RDW Plt Count MPV Absolute Neuts (auto) Neutrophils % Neutrophils % (Manual) 89.1 H Band Neutrophils % 1.0 Lymphocytes % Lymphocytes % (Manual) 5.9 L D Monocytes % Monocytes % (Manual) 2 L Eosinophils % Eosinophils % (Manual) 0.0 D Basophils % Basophils % (Manual) 0.0 Myelocytes % (Man) 0 Promyelocytes % (Man) 0 Blast Cells % (Manual) 0 Nucleated RBC % Metamyelocytes 0 Hypochromia 0 Platelet Estimate Decreased Polychromasia 1+ Poikilocytosis 2+ Anisocytosis 2+ Microcytosis 2+ Macrocytosis 0 Tear Drop Cells 1+ Ovalocytes 1+ [place] Cells 1+ Sodium Potassium Chloride Carbon Dioxide Anion Gap BUN Creatinine Est GFR (CKD-EPI)AfAm Est GFR (CKD-EPI)NonAf POC Glucometer 363 Random Glucose Calcium Total Bilirubin AST ALT Alkaline Phosphatase Total Protein Albumin Urine Color Urine Appearance Urine pH Ur Specific [place] Urine Protein Urine Glucose (UA) Urine Ketones Urine Blood Urine Nitrite Urine Bilirubin Urine Urobilinogen Ur Leukocyte Esterase Urine WBC (Auto) Urine RBC (Auto) Urine Casts (Auto) U Epithel Cells (Auto) Urine Bacteria (Auto) Urine Yeast (Auto) Ur Random Creatinine Ur Random Sodium Ur Random Potassium Ur Random Chloride RSV Rapid Negative 05/18/19 05/18/19 05/18/19 16:14 16:14 16:14 WBC RBC Hgb Hct MCV MCH MCHC RDW Plt Count MPV Absolute Neuts (auto) Neutrophils % Neutrophils % (Manual) Band Neutrophils % Lymphocytes % Lymphocytes % (Manual) Monocytes % Monocytes % (Manual) Eosinophils % Eosinophils % (Manual) Basophils % Basophils % (Manual) Myelocytes % (Man) Promyelocytes % (Man) Blast Cells % (Manual) Nucleated RBC % Metamyelocytes Hypochromia Platelet Estimate Polychromasia Poikilocytosis Anisocytosis Microcytosis Macrocytosis Tear Drop Cells Ovalocytes Carla Cells Sodium Potassium Chloride Carbon Dioxide Anion Gap BUN Creatinine Est GFR (CKD-EPI)AfAm Est GFR (CKD-EPI)NonAf POC Glucometer Random Glucose Calcium Total Bilirubin AST ALT Alkaline Phosphatase Total Protein Albumin Urine Color Yellow Urine Appearance Clear Urine pH 5.0 Ur Specific [place] 1.019 Urine Protein 1+ H Urine Glucose (UA) 2+ H Urine Ketones Negative Urine Blood Negative Urine Nitrite Negative Urine Bilirubin Negative Urine Urobilinogen 0.2 Ur Leukocyte Esterase 1+ H Urine WBC (Auto) 14 Urine RBC (Auto) 1 Urine Casts (Auto) 4 U Epithel Cells (Auto) 1.1 Urine Bacteria (Auto) 0.2 Urine Yeast (Auto) Few Ur Random Creatinine 79.0 Ur Random Sodium 29 L Ur Random Potassium 40.0 Ur Random Chloride 26 L RSV Rapid 05/18/19 05/18/19 05/19/19 17:19 21:42 06:51 WBC RBC Hgb Hct MCV MCH MCHC RDW Plt Count MPV Absolute Neuts (auto) Neutrophils % Neutrophils % (Manual) Band Neutrophils % Lymphocytes % Lymphocytes % (Manual) Monocytes % Monocytes % (Manual) Eosinophils % Eosinophils % (Manual) Basophils % Basophils % (Manual) Myelocytes % (Man) Promyelocytes % (Man) Blast Cells % (Manual) Nucleated RBC % Metamyelocytes Hypochromia Platelet Estimate Polychromasia Poikilocytosis Anisocytosis Microcytosis Macrocytosis Tear Drop Cells Ovalocytes Carla Cells Sodium Potassium Chloride Carbon Dioxide Anion Gap BUN Creatinine Est GFR (CKD-EPI)AfAm Est GFR (CKD-EPI)NonAf POC Glucometer 225 327 228 Random Glucose Calcium Total Bilirubin AST ALT Alkaline Phosphatase Total Protein Albumin Urine Color Urine Appearance Urine pH Ur Specific [place] Urine Protein Urine Glucose (UA) Urine Ketones Urine Blood Urine Nitrite Urine Bilirubin Urine Urobilinogen Ur Leukocyte Esterase Urine WBC (Auto) Urine RBC (Auto) Urine Casts (Auto) U Epithel Cells (Auto) Urine Bacteria (Auto) Urine Yeast (Auto) Ur Random Creatinine Ur Random Sodium Ur Random Potassium Ur Random Chloride RSV Rapid 05/19/19 05/19/19 08:46 08:46 WBC 11.9 H RBC 5.14 Hgb 12.8 Hct 39.7 MCV 77.2 L MCH 24.9 L MCHC 32.3 RDW 18.8 H Plt Count 175 D MPV 8.2 Absolute Neuts (auto) 11.0 H Neutrophils % 91.8 H Neutrophils % (Manual) Band Neutrophils % Lymphocytes % 5.4 L Lymphocytes % (Manual) Monocytes % 2.7 L Monocytes % (Manual) Eosinophils % 0.0 D Eosinophils % (Manual) Basophils % 0.1 Basophils % (Manual) Myelocytes % (Man) Promyelocytes % (Man) Blast Cells % (Manual) Nucleated RBC % 0 Metamyelocytes Hypochromia Platelet Estimate Polychromasia Poikilocytosis Anisocytosis Microcytosis Macrocytosis Tear Drop Cells Ovalocytes Carla Cells Sodium 139 Potassium 4.5 Chloride 109 H Carbon Dioxide 21 Anion Gap 9 BUN 58.6 H Creatinine 1.9 H Est GFR (CKD-EPI)AfAm 38.83 Est GFR (CKD-EPI)NonAf 33.50 POC Glucometer Random Glucose 230 H Calcium 9.1 Total Bilirubin 0.3 AST 24 ALT 61 Alkaline Phosphatase 102 Total Protein 7.4 Albumin 3.4 Urine Color Urine Appearance Urine pH Ur Specific [place] Urine Protein Urine Glucose (UA) Urine Ketones Urine Blood Urine Nitrite Urine Bilirubin Urine Urobilinogen Ur Leukocyte Esterase Urine WBC (Auto) Urine RBC (Auto) Urine Casts (Auto) U Epithel Cells (Auto) Urine Bacteria (Auto) Urine Yeast (Auto) Ur Random Creatinine Ur Random Sodium Ur Random Potassium Ur Random Chloride RSV Rapid Problem List - Problems (1) COPD exacerbation Code(s): J44.1 - CHRONIC OBSTRUCTIVE PULMONARY DISEASE W (ACUTE) EXACERBATION Assessment/Plan Acute COPD Exacerbation URI Chronic Hypoxic Respiratory Failure CAD s/p CABG LV Systolic Dysfunction PAD PUD CKD HTN DM Hyperlipidemia - IV medrol - inhaled bronchodilators standing and PRN - O2 to keep SpO2 >90% - Noted Azithromycin - DVT prophylaxis - No smoking Dr Mills
[2019-05-19] MEDS: AZITHROMYCIN IVPB 250 MG in DEXTROSE 5%-WATER - 250 ML IVPB SCH (10:38)
--- NOTE | 2019-05-19 14:38 | PN ---
Progress Note, Physician History of Present Illness: Pt seen and examined at bedside. He is awake and alert. He denies shortness of breath. He feels better today. - Current Medication List Current Medications: Active Medications Albuterol Sulfate (Ventolin 0.083% Nebulizer Soln -) 1 amp NEB Q4H PRN PRN Reason: SHORT OF BREATH/WHEEZING Albuterol/Ipratropium (Duoneb -) 1 amp NEB RQID [facility] Last Admin: 05/19/19 11:45 Dose: 1 amp Carvedilol (Coreg -) 3.125 mg PO BID [facility] [place] Last Admin: 05/19/19 09:58 Dose: 3.125 mg Clopidogrel Bisulfate (Plavix -) 75 mg PO DAILY [facility] [place] Last Admin: 05/19/19 09:58 Dose: 75 mg Escitalopram Oxalate (Lexapro -) 20 mg PO DAILY [facility] [place] Last Admin: 05/18/19 10:52 Dose: 20 mg Heparin Sodium (Porcine) (Heparin -) 5,000 unit SQ TID [facility] [place] Last Admin: 05/19/19 06:53 Dose: 5,000 unit Azithromycin 250 mg/ Dextrose 250 mls @ 250 mls/hr IVPB DAILY [facility] [place] Last Admin: 05/19/19 10:38 Dose: 250 mls/hr Insulin Aspart (Novolog Vial Sliding Scale -) 1 vial SQ ACHS [facility] [place]; Protocol Last Admin: 05/19/19 12:27 Dose: 10 units Insulin Detemir (Levemir Vial) 20 units SQ DAILY@0700 [facility] [place] Last Admin: 05/19/19 06:56 Dose: 20 units Methylprednisolone Sodium Succinate (Solu-Medrol -) 40 mg IVPB Q8H-IV [facility] [place] Last Admin: 05/19/19 09:59 Dose: 40 mg Non-Formulary Medication (Droxidopa [Northera]) 100 mg PO DAILY [facility] [place] Rosuvastatin Calcium (Crestor -) 20 mg PO HS [facility] [place] Last Admin: 05/18/19 21:38 Dose: 20 mg Sodium Bicarbonate (Sodium Bicarbonate -) 650 mg PO BID [facility] [place] Last Admin: 05/19/19 09:58 Dose: 650 mg Tamsulosin HCl (Flomax -) 0.4 mg PO DAILY@0830 [facility] Last Admin: 05/19/19 09:59 Dose: 0.4 mg - Objective Vital Signs: Vital Signs Temperature 97.3 F L 05/19/19 10:00 Pulse Rate 66 05/19/19 10:00 Respiratory Rate 15 05/19/19 10:00 Blood Pressure 106/46 L 05/19/19 10:00 O2 Sat by Pulse Oximetry (%) 92 L 05/18/19 20:30 Constitutional: Yes: Calm Eyes: Yes: Conjunctiva Clear HENT: Yes: Atraumatic Neck: Yes: Supple Cardiovascular: Yes: S1, S2 Respiratory: Yes: Rhonchi Gastrointestinal: Yes: Soft ...Rectal Exam: Yes: Other Musculoskeletal: Yes: WNL Edema: No Neurological: Yes: Oriented Psychiatric: Yes: Oriented Labs: CBC, BMP 05/19/19 08:46 05/19/19 08:46 INR, PTT INR 1.08 (0.83-1.09) 05/18/19 03:30 Problem List - Problems (1) Achalasia Code(s): K22.0 - ACHALASIA OF CARDIA (2) Acute kidney injury Code(s): N17.9 - ACUTE KIDNEY FAILURE, UNSPECIFIED Assessment/Plan Current Medications Generic Name Dose Route Start Last Admin Trade Name Freq PRN Reason Stop Dose Admin Albuterol Sulfate 1 amp 05/18/19 14:09 Ventolin 0.083% Nebulizer Soln - NEB Q4H PRN SHORT OF BREATH/WHEEZING Albuterol/Ipratropium 1 amp 05/18/19 08:00 05/19/19 11:45 Duoneb - NEB 1 amp RQID KADEEM Administration Carvedilol 3.125 mg 05/18/19 10:00 05/19/19 09:58 Coreg - PO 3.125 mg BID KADEEM Administration Clopidogrel Bisulfate 75 mg 05/18/19 10:00 05/19/19 09:58 Plavix - PO 75 mg DAILY [facility] Administration Escitalopram Oxalate 20 mg 05/18/19 10:00 05/18/19 10:52 Lexapro - PO 20 mg DAILY [facility] Administration Heparin Sodium (Porcine) 5,000 unit 05/18/19 14:00 05/19/19 06:53 Heparin - SQ 5,000 unit TID KADEEM Administration Azithromycin 250 mg/ Dextrose 250 mls @ 250 mls/hr 05/19/19 10:00 05/19/19 10 :38 IVPB 250 mls/hr DAILY [facility] Administration Insulin Aspart 1 vial 05/18/19 11:00 05/19/19 12:27 Novolog Vial Sliding Scale - SQ 10 units ACHS [facility] Administration Protocol Insulin Detemir 20 units 05/18/19 12:30 05/19/19 06:56 Levemir Vial SQ 20 units DAILY@0700 [facility] Administration Methylprednisolone Sodium Succinate 40 mg 05/18/19 07:30 05/19/19 09:59 Solu-Medrol - IVPB 40 mg Q8H-IV [facility] Administration Non-Formulary Medication 100 mg 05/18/19 10:00 Droxidopa [Northera] PO DAILY [facility] Rosuvastatin Calcium 20 mg 05/18/19 22:00 05/18/19 21:38 Crestor - PO 20 mg HS [facility] Administration Sodium Bicarbonate 650 mg 05/18/19 13:45 05/19/19 09:58 Sodium Bicarbonate - PO 650 mg BID [facility] Administration Tamsulosin HCl 0.4 mg 05/18/19 08:30 05/19/19 09:59 Flomax - PO 0.4 mg DAILY@0830 [facility] Administration Impression 1. CKD 2. dehydration 3. PVD 4. HLD 5. CHF 6. atrophic left kidney Plan - can d/c fluids - repeat labs in am - monitor volume status - avoid nsaids - abx per medical team - possible progression or kidney disease, will follow
[2019-05-19 15:57] LABS: ANISOCYTOSIS 0; MACROCYTOSIS 0; PLATELET ESTIMATE NORMAL
--- NOTE | 2019-05-19 16:23 | PN ---
Teaching Attending Note Name of Resident: Kathy Pratt ATTENDING PHYSICIAN STATEMENT I saw and evaluated the patient. SUBJECTIVE: Feeling well, no acute events overnight, no complaints. OBJECTIVE: Vital Signs - 24 hr 05/18/19 05/18/19 05/18/19 18:06 19:35 20:30 Temperature 97.9 F 97.5 F L Pulse Rate 59 L Pulse Rate [ 72 78 Left Radial] Respiratory 18 18 Rate Blood Pressure 132/66 Blood Pressure 132/55 L 130/65 [Right Arm] O2 Sat by Pulse 94 L 95 92 L Oximetry (%) 05/19/19 05/19/19 05/19/19 02:12 06:18 09:00 Temperature 97.9 F 97.3 F L Pulse Rate 61 53 L Pulse Rate [ Left Radial] Respiratory 18 18 15 Rate Blood Pressure 144/68 147/61 Blood Pressure [Right Arm] O2 Sat by Pulse Oximetry (%) 05/19/19 05/19/19 10:00 14:00 Temperature 97.3 F L 97.5 F L Pulse Rate 66 59 L Pulse Rate [ Left Radial] Respiratory 15 16 Rate Blood Pressure 106/46 L 128/52 L Blood Pressure [Right Arm] O2 Sat by Pulse Oximetry (%) PE Constitutional: NAD Cardiovascular: Regular Rate and Rhythm Respiratory: Bilateral scattered rhonchi and mild expiratory wheeze, unlabored Gastrointestinal: Normal Bowel Sounds, Soft. No Tenderness Edema: No Current Medications Generic Name Dose Route Start Last Admin Trade Name Freq PRN Reason Stop Dose Admin Albuterol Sulfate 1 amp 05/18/19 14:09 Ventolin 0.083% Nebulizer Soln - NEB Q4H PRN SHORT OF BREATH/WHEEZING Albuterol/Ipratropium 1 amp 05/18/19 08:00 05/19/19 11:45 Duoneb - NEB 1 amp RQID KADEEM Administration Carvedilol 3.125 mg 05/18/19 10:00 05/19/19 09:58 Coreg - PO 3.125 mg BID KADEEM Administration Clopidogrel Bisulfate 75 mg 05/18/19 10:00 05/19/19 09:58 Plavix - PO 75 mg DAILY [facility] Administration Escitalopram Oxalate 20 mg 05/18/19 10:00 05/18/19 10:52 Lexapro - PO 20 mg DAILY [facility] Administration Heparin Sodium (Porcine) 5,000 unit 05/18/19 14:00 05/19/19 14:02 Heparin - SQ 5,000 unit TID KADEEM Administration Azithromycin 250 mg/ Dextrose 250 mls @ 250 mls/hr 05/19/19 10:00 05/19/19 10 :38 IVPB 250 mls/hr DAILY [facility] Administration Insulin Aspart 1 vial 05/18/19 11:00 05/19/19 12:27 Novolog Vial Sliding Scale - SQ 10 units ACHS KADEEM Administration Protocol Insulin Detemir 20 units 05/18/19 12:30 05/19/19 06:56 Levemir Vial SQ 20 units DAILY@0700 [facility] Administration Methylprednisolone Sodium Succinate 40 mg 05/18/19 07:30 05/19/19 09:59 Solu-Medrol - IVPB 40 mg Q8H-IV [facility] Administration Non-Formulary Medication 100 mg 05/18/19 10:00 Droxidopa [Northera] PO DAILY [facility] Rosuvastatin Calcium 20 mg 05/18/19 22:00 05/18/19 21:38 Crestor - PO 20 mg HS KADEEM Administration Sodium Bicarbonate 650 mg 05/18/19 13:45 05/19/19 09:58 Sodium Bicarbonate - PO 650 mg BID KADEEM Administration Tamsulosin HCl 0.4 mg 05/18/19 08:30 05/19/19 09:59 Flomax - PO 0.4 mg DAILY@0830 KADEEM Administration Laboratory Results - last 24 hr 05/18/19 05/18/19 05/18/19 15:47 16:14 16:14 WBC RBC Hgb Hct MCV MCH MCHC RDW Plt Count MPV Absolute Neuts (auto) Neutrophils % Neutrophils % (Manual) Band Neutrophils % Lymphocytes % Lymphocytes % (Manual) Monocytes % Monocytes % (Manual) Eosinophils % Eosinophils % (Manual) Basophils % Basophils % (Manual) Myelocytes % (Man) Promyelocytes % (Man) Blast Cells % (Manual) Nucleated RBC % Metamyelocytes Hypochromia Platelet Estimate Polychromasia Poikilocytosis Anisocytosis Microcytosis Macrocytosis Sodium Potassium Chloride Carbon Dioxide Anion Gap BUN Creatinine Est GFR (CKD-EPI)AfAm Est GFR (CKD-EPI)NonAf POC Glucometer Random Glucose Calcium Total Bilirubin AST ALT Alkaline Phosphatase Total Protein Albumin Urine Color Urine Appearance Urine pH Ur Specific Newell Urine Protein Urine Glucose (UA) Urine Ketones Urine Blood Urine Nitrite Urine Bilirubin Urine Urobilinogen Ur Leukocyte Esterase Urine WBC (Auto) Urine RBC (Auto) Urine Casts (Auto) U Epithel Cells (Auto) Urine Bacteria (Auto) Urine Yeast (Auto) Ur Random Creatinine 79.0 Ur Random Sodium 29 L Ur Random Potassium 40.0 Ur Random Chloride 26 L RSV Rapid Negative 05/18/19 05/18/19 05/18/19 16:14 17:19 21:42 WBC RBC Hgb Hct MCV MCH MCHC RDW Plt Count MPV Absolute Neuts (auto) Neutrophils % Neutrophils % (Manual) Band Neutrophils % Lymphocytes % Lymphocytes % (Manual) Monocytes % Monocytes % (Manual) Eosinophils % Eosinophils % (Manual) Basophils % Basophils % (Manual) Myelocytes % (Man) Promyelocytes % (Man) Blast Cells % (Manual) Nucleated RBC % Metamyelocytes Hypochromia Platelet Estimate Polychromasia Poikilocytosis Anisocytosis Microcytosis Macrocytosis Sodium Potassium Chloride Carbon Dioxide Anion Gap BUN Creatinine Est GFR (CKD-EPI)AfAm Est GFR (CKD-EPI)NonAf POC Glucometer 225 327 Random Glucose Calcium Total Bilirubin AST ALT Alkaline Phosphatase Total Protein Albumin Urine Color Yellow Urine Appearance Clear Urine pH 5.0 Ur Specific Newell 1.019 Urine Protein 1+ H Urine Glucose (UA) 2+ H Urine Ketones Negative Urine Blood Negative Urine Nitrite Negative Urine Bilirubin Negative Urine Urobilinogen 0.2 Ur Leukocyte Esterase 1+ H Urine WBC (Auto) 14 Urine RBC (Auto) 1 Urine Casts (Auto) 4 U Epithel Cells (Auto) 1.1 Urine Bacteria (Auto) 0.2 Urine Yeast (Auto) Few Ur Random Creatinine Ur Random Sodium Ur Random Potassium Ur Random Chloride RSV Rapid 05/19/19 05/19/19 05/19/19 06:51 08:46 08:46 WBC 11.9 H RBC 5.14 Hgb 12.8 Hct 39.7 MCV 77.2 L MCH 24.9 L MCHC 32.3 RDW 18.8 H Plt Count 175 D MPV 8.2 Absolute Neuts (auto) 11.0 H Neutrophils % 91.8 H Neutrophils % (Manual) 85.3 H Band Neutrophils % 8.3 Lymphocytes % 5.4 L Lymphocytes % (Manual) 4.6 L D Monocytes % 2.7 L Monocytes % (Manual) 0 L D Eosinophils % 0.0 D Eosinophils % (Manual) 0.0 Basophils % 0.1 Basophils % (Manual) 0.0 Myelocytes % (Man) 0 Promyelocytes % (Man) 0 Blast Cells % (Manual) 0 Nucleated RBC % 0 Metamyelocytes 0 Hypochromia 0 Platelet Estimate Normal Polychromasia 0 Poikilocytosis 0 Anisocytosis 0 Microcytosis 0 Macrocytosis 0 Sodium 139 Potassium 4.5 Chloride 109 H Carbon Dioxide 21 Anion Gap 9 BUN 58.6 H Creatinine 1.9 H Est GFR (CKD-EPI)AfAm 38.83 Est GFR (CKD-EPI)NonAf 33.50 POC Glucometer 228 Random Glucose 230 H Calcium 9.1 Total Bilirubin 0.3 AST 24 ALT 61 Alkaline Phosphatase 102 Total Protein 7.4 Albumin 3.4 Urine Color Urine Appearance Urine pH Ur Specific Newell Urine Protein Urine Glucose (UA) Urine Ketones Urine Blood Urine Nitrite Urine Bilirubin Urine Urobilinogen Ur Leukocyte Esterase Urine WBC (Auto) Urine RBC (Auto) Urine Casts (Auto) U Epithel Cells (Auto) Urine Bacteria (Auto) Urine Yeast (Auto) Ur Random Creatinine Ur Random Sodium Ur Random Potassium Ur Random Chloride RSV Rapid 05/19/19 12:17 WBC RBC Hgb Hct MCV MCH MCHC RDW Plt Count MPV Absolute Neuts (auto) Neutrophils % Neutrophils % (Manual) Band Neutrophils % Lymphocytes % Lymphocytes % (Manual) Monocytes % Monocytes % (Manual) Eosinophils % Eosinophils % (Manual) Basophils % Basophils % (Manual) Myelocytes % (Man) Promyelocytes % (Man) Blast Cells % (Manual) Nucleated RBC % Metamyelocytes Hypochromia Platelet Estimate Polychromasia Poikilocytosis Anisocytosis Microcytosis Macrocytosis Sodium Potassium Chloride Carbon Dioxide Anion Gap BUN Creatinine Est GFR (CKD-EPI)AfAm Est GFR (CKD-EPI)NonAf POC Glucometer 404 Random Glucose Calcium Total Bilirubin AST ALT Alkaline Phosphatase Total Protein Albumin Urine Color Urine Appearance Urine pH Ur Specific Newell Urine Protein Urine Glucose (UA) Urine Ketones Urine Blood Urine Nitrite Urine Bilirubin Urine Urobilinogen Ur Leukocyte Esterase Urine WBC (Auto) Urine RBC (Auto) Urine Casts (Auto) U Epithel Cells (Auto) Urine Bacteria (Auto) Urine Yeast (Auto) Ur Random Creatinine Ur Random Sodium Ur Random Potassium Ur Random Chloride RSV Rapid all imaging reports reviewed ASSESSMENT AND PLAN: 78 year old female LV sysolic function dysfunction s/p ICD placement, CAD s/p CABG, PCI/stent, HTN, hyperlipidemia, PAD s/p fem/pop Bypass, fem-pop bypass, DM , COPD, PUD s/p Bilroth II gastrectomy, achalasia , Heller's myomectomy, gout, kidney stones, CKD, BPH. admitted for acute copd exacerbation 1) Acute COPD exacerbation -iv steroids -inhaled nebs -zithromycin -pulm eval appreciated 2) D. CHF exacerbation -monitor i/os and daily weights -fluids stopped today -hold lasix for now and monitor volume status in AM -entresto on hold due to anselmo 3) ANSELMO on CKD -stable -fluids stopped -repeat labs in am -renal following 4) Depression, holding celexa until completion of zithromax since Qtc 469 5) Hx of CAD s/p CABG on plavix/coreg 6) T2DM on insulin continue with ss with coverage and levemir in am 7) Ventral Hernia: pt requesting surgery consult, outpatient fu
[2019-05-19] MEDS ORDERED: PT OWN MED DRAWER 7, Y5N ONE (21:15)
[2019-05-19] MEDS: ROSUVASTATIN CA 20 MG TABLET (FP) PO SCH (22:41)
[2019-05-19] MEDS: MELATONIN 1 MG TABLET PO SCH (22:41)
[2019-05-20] MEDS: methylPREDNISolone NA SUCC 125 MG/2 ML VIAL IVPB SCH (03:08)
[2019-05-20] MEDS: INSULIN (LEVEMIR) 100 UNITS/ML UNITS SQ SCH (06:33)
[2019-05-20] MEDS: INSULIN SLIDING SCALE (NOVOLOG) 1 VIAL SQ SCH ×4 (06:34→23:53)
[2019-05-20] MEDS: HEPARIN NA (PORCINE) 5,000 UNITS/ML 1ML VIAL SQ SCH ×3 (06:35→23:46)
[2019-05-20] MEDS: ALBUTEROL SO4 2.5/IPRATROPIUM 0.5 INH SOL 3 ML VIAL.NEB. NEB SCH ×4 (08:00→21:25)
--- NOTE | 2019-05-20 09:45 | PN ---
Progress Note (short form) - Note Progress Note: Patient is comfortable has no shortness of breath no fever no chills his breathing is better he is on IV steroids. He is complaining of hernia on the left inguinal area it increases by cough and then he can push it back he denies any pain over there. Vital Signs Period Temp Pulse Resp BP Sys/Garcia Pulse Ox Last 24 Hr 96.9 F-98.4 F 54-70 15-18 106-140/46-66 97 HEENT NAD Neck supple Lungs are bilateral wheezing expiratory mild no bronchial breathing Heart S1-S2 positive systolic murmur 2/6 but no S3 noted Abdomen soft nontender no organomegaly Extremities trace leg edema but no cellulitis neuro he is alert awake oriented Abdominal exam he has hernia left inguinal area reducible. CBC, BMP 05/19/19 08:46 05/19/19 08:46 78 year old female LV sysolic function dysfunction s/p ICD placement, CAD s/p CABG, PCI/stent, HTN, hyperlipidemia, PAD s/p fem/pop Bypass, fem-pop bypass, DM , COPD, PUD s/p Bilroth II gastrectomy, achalasia , Heller's myomectomy, gout, kidney stones, CKD, BPH. admitted for acute copd exacerbation 1) Acute COPD exacerbation He is much improved continue steroids 2) D. CHF exacerbation Continue diuretics 3) APRYL on CKD Stable follow-up by renal 4) Depression, holding celexa until completion of zithromax since Qtc 469 5) Hx of CAD s/p CABG on plavix/coreg 6) T2DM on insulin continue with ss with coverage and levemir in am 7) Ventral Hernia: pt requesting surgery consult, Visit type - Emergency Visit Emergency Visit: Yes ED Registration Date: 05/18/19 Care time: The patient presented to the Emergency Department on the above date and was hospitalized for further evaluation of their emergent condition. - New Patient This patient is new to me today: Yes Date on this admission: 05/20/19 - Critical Care Critical Care patient: No - Discharge Referral Referred to [facility] Med P.[facility].: No
[2019-05-20] MEDS ORDERED: methylPREDNISolone NA SUCC 125 MG/2 ML VIAL IVPB SCH (10:00)
[2019-05-20] MEDS: TAMSULOSIN HCL 0.4 MG CAP PO SCH (10:12)
[2019-05-20] MEDS: CLOPIDOGREL BISULFATE 75 MG TABLET (FP) PO SCH (10:12)
[2019-05-20] MEDS: CARVEDILOL 3.125 MG TABLET (FP) PO SCH ×2 (10:12→23:46)
[2019-05-20] MEDS: AZITHROMYCIN IVPB 250 MG in DEXTROSE 5%-WATER - 250 ML IVPB SCH (10:12)
[2019-05-20] MEDS: SODIUM BICARBONATE 650 MG TABLET PO SCH ×2 (10:12→23:46)
[2019-05-20] MEDS: methylPREDNISolone NA SUCC 40 MG/1 ML VIAL IVPUSH SCH ×2 (11:02→17:30)
--- NOTE | 2019-05-20 13:57 | PN ---
Progress Note, Physician History of Present Illness: Pt seen and examined at bedside. He is awake and alert. He feels that his appetite is improved. - Current Medication List Current Medications: Active Medications Albuterol Sulfate (Ventolin 0.083% Nebulizer Soln -) 1 amp NEB Q4H PRN PRN Reason: SHORT OF BREATH/WHEEZING Albuterol/Ipratropium (Duoneb -) 1 amp NEB RQID [facility] Last Admin: 05/20/19 12:00 Dose: 1 amp Carvedilol (Coreg -) 3.125 mg PO BID [facility] Last Admin: 05/20/19 10:12 Dose: 3.125 mg Clopidogrel Bisulfate (Plavix -) 75 mg PO DAILY [facility] Last Admin: 05/20/19 10:12 Dose: 75 mg Escitalopram Oxalate (Lexapro -) 20 mg PO DAILY [facility] Last Admin: 05/18/19 10:52 Dose: 20 mg Heparin Sodium (Porcine) (Heparin -) 5,000 unit SQ TID [facility] Last Admin: 05/20/19 13:48 Dose: 5,000 unit Azithromycin 250 mg/ Dextrose 250 mls @ 250 mls/hr IVPB DAILY [facility] Last Admin: 05/20/19 10:12 Dose: 250 mls/hr Insulin Aspart (Novolog Vial Sliding Scale -) 1 vial SQ ACHS [facility]; Protocol Last Admin: 05/20/19 12:23 Dose: 8 units Insulin Detemir (Levemir Vial) 20 units SQ DAILY@0700 [facility] Last Admin: 05/20/19 06:33 Dose: 20 units Melatonin (Melatonin) 3 mg PO [facility] Last Admin: 05/19/19 22:41 Dose: 3 mg Methylprednisolone Sodium Succinate (Solu-Medrol -) 40 mg IVPUSH Q8H-IV [facility] Last Admin: 05/20/19 11:02 Dose: 40 mg Non-Formulary Medication (Droxidopa [Northera]) 100 mg PO DAILY [facility] Rosuvastatin Calcium (Crestor -) 20 mg PO HS [facility] Last Admin: 05/19/19 22:41 Dose: 20 mg Sodium Bicarbonate (Sodium Bicarbonate -) 650 mg PO BID [facility] Last Admin: 05/20/19 10:12 Dose: 650 mg Tamsulosin HCl (Flomax -) 0.4 mg PO DAILY@0830 [facility] Last Admin: 05/20/19 10:12 Dose: 0.4 mg - Objective Vital Signs: Vital Signs Temperature 97.3 F L 05/20/19 10:00 Pulse Rate 58 L 05/20/19 10:00 Respiratory Rate 18 05/20/19 10:00 Blood Pressure 116/50 L 05/20/19 10:00 O2 Sat by Pulse Oximetry (%) 97 05/19/19 21:00 Constitutional: Yes: Calm Eyes: Yes: Conjunctiva Clear HENT: Yes: Atraumatic Neck: Yes: Supple Cardiovascular: Yes: S1, S2 Respiratory: Yes: CTA Bilaterally Gastrointestinal: Yes: Normal Bowel Sounds, Soft Genitourinary: Yes: WNL Musculoskeletal: Yes: WNL Edema: No Neurological: Yes: Oriented Psychiatric: Yes: Oriented Labs: CBC, BMP 05/19/19 08:46 05/19/19 08:46 INR, PTT INR 1.08 (0.83-1.09) 05/18/19 03:30 Problem List - Problems (1) Achalasia Code(s): K22.0 - ACHALASIA OF CARDIA (2) Acute kidney injury Code(s): N17.9 - ACUTE KIDNEY FAILURE, UNSPECIFIED Assessment/Plan Current Medications Generic Name Dose Route Start Last Admin Trade Name Freq PRN Reason Stop Dose Admin Albuterol Sulfate 1 amp 05/18/19 14:09 Ventolin 0.083% Nebulizer Soln - NEB Q4H PRN SHORT OF BREATH/WHEEZING Albuterol/Ipratropium 1 amp 05/18/19 08:00 05/20/19 12:00 Duoneb - NEB 1 amp RQID KADEEM Administration Carvedilol 3.125 mg 05/18/19 10:00 05/20/19 10:12 Coreg - PO 3.125 mg BID KADEEM Administration Clopidogrel Bisulfate 75 mg 05/18/19 10:00 05/20/19 10:12 Plavix - PO 75 mg DAILY KADE[facility] Administration Escitalopram Oxalate 20 mg 05/18/19 10:00 05/18/19 10:52 Lexapro - PO 20 mg DAILY KADEEM Administration Heparin Sodium (Porcine) 5,000 unit 05/18/19 14:00 05/20/19 13:48 Heparin - SQ 5,000 unit TID KADEEM Administration Azithromycin 250 mg/ Dextrose 250 mls @ 250 mls/hr 05/19/19 10:00 05/20/19 10 :12 IVPB 250 mls/hr DAILY [facility] Administration Insulin Aspart 1 vial 05/18/19 11:00 05/20/19 12:23 Novolog Vial Sliding Scale - SQ 8 units ACHS KADEEM Administration Protocol Insulin Detemir 20 units 05/18/19 12:30 05/20/19 06:33 Levemir Vial SQ 20 units DAILY@0700 [facility] Administration Melatonin 3 mg 05/19/19 22:00 05/19/19 22:41 Melatonin PO 3 mg HS [facility] Administration Methylprednisolone Sodium Succinate 40 mg 05/20/19 10:45 05/20/19 11:02 Solu-Medrol - IVPUSH 40 mg Q8H-IV [facility] Administration Non-Formulary Medication 100 mg 05/18/19 10:00 Droxidopa [Northera] PO DAILY [facility] Rosuvastatin Calcium 20 mg 05/18/19 22:00 05/19/19 22:41 Crestor - PO 20 mg HS KADEEM Administration Sodium Bicarbonate 650 mg 05/18/19 13:45 05/20/19 10:12 Sodium Bicarbonate - PO 650 mg BID KADEEM Administration Tamsulosin HCl 0.4 mg 05/18/19 08:30 05/20/19 10:12 Flomax - PO 0.4 mg DAILY@0830 [facility] Administration Impression 1. CKD 2. dehydration 3. PVD 4. HLD 5. CHF 6. atrophic left kidney Plan - check bmp in am - avoid nephrotoxins - volume status is stable - avoid nsaids - abx per medical team - possible progression or kidney disease
--- NOTE | 2019-05-20 14:06 | PN ---
Progress Note (short form) - Note Progress Note: PULMONARY RESTING COMFORTABLY VSS/AFEBRILE Constitutional: Yes: NAD Eyes: Yes: EOM Intact, Other (injected sclera) HENT: Yes: Atraumatic, Normocephalic Neck: Yes: Supple, Trachea Midline Cardiovascular: Yes: Regular Rate and Rhythm Respiratory: Yes: Bilateral scattered rhonchi and mild expiratory wheeze ...Clubbing: No Gastrointestinal: Yes: Normal Bowel Sounds, Soft. No: Tenderness Edema: No Neurological: Yes: Alert, Oriented LABS/MEDS/NOTES/IMAGES REVIEWED - Problems (1) COPD exacerbation Code(s): J44.1 - CHRONIC OBSTRUCTIVE PULMONARY DISEASE W (ACUTE) EXACERBATION Assessment/Plan Acute COPD Exacerbation URI Chronic Hypoxic Respiratory Failure CAD s/p CABG LV Systolic Dysfunction PAD PUD CKD HTN DM Hyperlipidemia - IV medrol same dose - inhaled bronchodilators standing and PRN - O2 to keep SpO2 >90% - Noted Azithromycin - DVT prophylaxis - No smoking Ruddy BARKER MD
[2019-05-20 15:17] LABS: BASO % 0.1 % (0-2.0); HEMATOCRIT 35.3 % (35.4-49); HEMOGLOBIN 11.4 GM/dL (11.7-16.9); LYMPH % 3.8 % (8-40); MCH 24.9 pg (25.7-33.7); MCHC 32.1 g/dl (32.0-35.9); MEAN CELL VOLUME 77.3 fl (80-96); MEAN PLT VOLUME 8.5 fl (7.5-11.1); MONO % 1.8 % (3.8-10.2); NEUT % 94.3 % (42.8-82.8); PLATELET COUNT 141 K/MM3 (134-434); RBC 4.57 M/mm3 (4.00-5.60); RDW 18.7 % (11.9-15.9); WHITE BLOOD COUNT 8.7 K/mm3 (4.0-10.0)
[2019-05-20 15:58] LABS: ALBUMIN 2.8 g/dl (3.4-5.0); BILIRUBIN,TOTAL 0.2 mg/dL (0.2-1); BLOOD UREA NITROGEN 56.2 mg/dL (7-18); CALCIUM 8.7 mg/dL (8.5-10.1); CREATININE 1.5 mg/dL (0.55-1.3); POTASSIUM 5.4 mmol/L (3.5-5.1); TOT PROT 6.2 g/dl (6.4-8.2)
[2019-05-20 18:51] LABS: ANISOCYTOSIS 3+; MACROCYTOSIS 0; OVALOCYTE 1+; PLATELET ESTIMATE DECREASED; TEAR DROP CELLS 1+
[2019-05-20] MEDS: MELATONIN 1 MG TABLET PO SCH (23:46)
[2019-05-20] MEDS: ROSUVASTATIN CA 20 MG TABLET (FP) PO SCH (23:46)
[2019-05-21] MEDS: methylPREDNISolone NA SUCC 40 MG/1 ML VIAL IVPUSH SCH ×2 (02:27→10:16)
[2019-05-21] MEDS: INSULIN (LEVEMIR) 100 UNITS/ML UNITS SQ SCH (06:50)
[2019-05-21] MEDS: HEPARIN NA (PORCINE) 5,000 UNITS/ML 1ML VIAL SQ SCH ×3 (06:50→21:54)
[2019-05-21] MEDS: INSULIN SLIDING SCALE (NOVOLOG) 1 VIAL SQ SCH ×4 (06:51→21:55)
[2019-05-21] MEDS ORDERED: PT OWN MED DRAWER 7, Y5N ONE (07:03)
[2019-05-21] MEDS: ALBUTEROL SO4 2.5/IPRATROPIUM 0.5 INH SOL 3 ML VIAL.NEB. NEB SCH ×4 (08:00→20:30)
[2019-05-21] MEDS ORDERED: INSULIN (NOVOLOG) ASPART 100 UNITS/ML 10ML VIAL ONE (10:13)
[2019-05-21] MEDS: SODIUM BICARBONATE 650 MG TABLET PO SCH ×2 (10:16→21:54)
[2019-05-21] MEDS: CLOPIDOGREL BISULFATE 75 MG TABLET (FP) PO SCH (10:16)
[2019-05-21] MEDS: CARVEDILOL 3.125 MG TABLET (FP) PO SCH ×2 (10:16→21:54)
[2019-05-21] MEDS: TAMSULOSIN HCL 0.4 MG CAP PO SCH (10:16)
--- NOTE | 2019-05-21 11:18 | CONSULT ---
- Consultation REQUESTING PROVIDER: Ajay EGAN CONSULT REQUEST: We have been asked to surgically evaluate this patient for ( specify). PCP:Kathy Pratt HISTORY OF PRESENT ILLNESS: CTSP for evaluation of an abdominal wall hernia ?? PMHx: CHF/CAD/HLD/IDDM/PVD PSHx: CABG/stents/AICD?penile prosthesis/? prostatectomy vs. b/l inguinal hernia repair which he tells me was done at [facility] by Dr. Geetha Limon; he is a poor historian. Home Medications Medication Instructions Recorded Carvedilol 3.125 mg PO BID 12/08/18 Escitalopram Oxalate [Lexapro -] 20 mg PO DAILY 12/08/18 Rosuvastatin Calcium [Crestor] 20 mg PO HS 12/08/18 Insulin Glargine,Hum.rec.anlog 58 units SQ HS 01/11/19 [Lantus Solostar PEN -] Tamsulosin HCl 0.4 mg PO DAILY 01/11/19 Albuterol 0.083% Nebulizer Fatuma 1 amp NEB ONCE 04/07/19 [Ventolin 0.083% Nebulizer Soln -] Clopidogrel Bisulfate [Clopidogrel] 75 mg PO DAILY 04/07/19 Droxidopa [Northera] 100 mg PO DAILY 04/07/19 Insulin Lispro [Humalog Ponce 10 - 34 unit SQ TID 04/07/19 Kwikpen] Melatonin 10 mg PO HS 04/07/19 Sacubitril/Valsartan [Entresto 24 1 each PO BID 04/07/19 mg-26 mg Tablet] Allergies Allergy/AdvReac Type Severity Reaction Status Date / Time pregabalin [From Lyrica] Allergy Severe Verified 05/18/19 03:26 REVIEW OF SYSTEMS: CONSTITUTIONAL: Absent: fever, chills, diaphoresis, Present: generalized weakness, malaise, CARDIOVASCULAR: Absent: chest pain, syncope, palpitations, irregular heart rate, lightheadedness , peripheral edema RESPIRATORY: Present: cough, shortness of breath, dyspnea with exertion, wheezing, GASTROINTESTINAL: Absent: abdominal pain, abdominal distension, nausea, vomiting, diarrhea, constipation, melena, hematochezia GENITOURINARY: Present: dysuria, frequency, urgency, hesitancy,, genital pain MUSCULOSKELETAL: Absent: myalgia, arthralgia, joint swelling, back pain, neck pain SKIN: Absent: rash, itching, pallor HEMATOLOGIC/IMMUNOLOGIC: Absent: easy bleeding, easy bruising, lymphadenopathy NEUROLOGIC: Absent: headache, focal weakness, paresthesias, dizziness, unsteady gait, seizure, mental status changes, bladder or bowel incontinence PSYCHIATRIC: Absent: anxiety, depression, suicidal or homicidal ideation, hallucinations. PHYSICAL EXAM: GENERAL: Awake, alert, and fully oriented, in no acute distress. HEAD: Normal with no signs of trauma. EYES, sclera anicteric, conjunctiva clear. NECK: Normal ROM, supple without lymphadenopathy, JVD, or masses. ABDOMEN: Soft, nontender, not distended, normoactive bowel sounds, no guarding, no rebound, no masses. No organomegaly. Midline suprapubic scar; reducible bilateral inguinal hernias. MUSCULOSKELETAL: Normal ROM at all joints. No bony deformities or tenderness. No CVA tenderness. UPPER EXTREMITIES: 2+ pulses, warm, well-perfused. No cyanosis. Cap refill <2 seconds. No peripheral edema. LOWER EXTREMITIES: 2+ pulses, warm, well-perfused. No calf tenderness. No peripheral edema. NEUROLOGICAL: Normal speech, gait not observed. PSYCH: Cooperative. Good eye contact. Appropriate mood and affect. SKIN: Warm, dry, normal turgor, no rashes or lesions noted. Vital Signs Temperature 97.6 F 05/21/19 10:00 Pulse Rate 60 05/21/19 10:00 Respiratory Rate 18 05/21/19 10:00 Blood Pressure 138/63 05/21/19 10:00 O2 Sat by Pulse Oximetry (%) 98 05/20/19 21:00 Lab Results WBC 8.7 K/mm3 (4.0-10.0) 05/20/19 15:00 RBC 4.57 M/mm3 (4.00-5.60) 05/20/19 15:00 Hgb 11.4 GM/dL (11.7-16.9) L 05/20/19 15:00 Hct 35.3 % (35.4-49) L 05/20/19 15:00 MCV 77.3 fl (80-96) L 05/20/19 15:00 MCHC 32.1 g/dl (32.0-35.9) 05/20/19 15:00 RDW 18.7 % (11.9-15.9) H 05/20/19 15:00 Plt Count 141 K/MM3 (134-434) 05/20/19 15:00 Sodium 135 mmol/L (136-145) L 05/20/19 15:00 Potassium 5.4 mmol/L (3.5-5.1) H 05/20/19 15:00 Chloride 108 mmol/L (98-107) H 05/20/19 15:00 Carbon Dioxide 19 mmol/L (21-32) L 05/20/19 15:00 Anion Gap 8 MMOL/L (8-16) 05/20/19 15:00 BUN 56.2 mg/dL (7-18) H 05/20/19 15:00 Creatinine 1.5 mg/dL (0.55-1.3) H 05/20/19 15:00 Random Glucose 405 mg/dL (74-106) H* 05/20/19 15:00 Calcium 8.7 mg/dL (8.5-10.1) 05/20/19 15:00 INR 1.08 (0.83-1.09) 05/18/19 03:30 IMP: ? recurrent BIH's ? PLAN: He appears to be a prohibitive operative risk; he has # co morbid medical issues and a h/o # falls; I would not consider repairing these hernias unless they interfere w/his ADL which they appear not to; shouls they become incarcerated and/or starngulated then of course a different approach would become necessary. Brandon Thapa MD FACS
[2019-05-21 11:26] LABS: BILIRUBIN,TOTAL 0.2 mg/dL (0.2-1); BLOOD UREA NITROGEN 50.7 mg/dL (7-18); CALCIUM 8.5 mg/dL (8.5-10.1); CREATININE 1.4 mg/dL (0.55-1.3); POTASSIUM 4.9 mmol/L (3.5-5.1); TOT PROT 6.2 g/dl (6.4-8.2)
[2019-05-21] MEDS: AZITHROMYCIN IVPB 250 MG in DEXTROSE 5%-WATER - 250 ML IVPB SCH (12:12)
--- NOTE | 2019-05-21 12:32 | PN ---
Progress Note (short form) - Note Progress Note: PULMONARY RESTING COMFORTABLY VSS/AFEBRILE Constitutional: Yes: NAD Eyes: Yes: EOM Intact, Other (injected sclera) HENT: Yes: Atraumatic, Normocephalic Neck: Yes: Supple, Trachea Midline Cardiovascular: Yes: Regular Rate and Rhythm Respiratory: Yes: Bilateral scattered rhonchi and mild expiratory wheeze ...Clubbing: No Gastrointestinal: Yes: Normal Bowel Sounds, Soft. No: Tenderness Edema: No Neurological: Yes: Alert, Oriented LABS/MEDS/NOTES/IMAGES REVIEWED - Problems (1) COPD exacerbation Code(s): J44.1 - CHRONIC OBSTRUCTIVE PULMONARY DISEASE W (ACUTE) EXACERBATION Assessment/Plan Acute COPD Exacerbation URI Chronic Hypoxic Respiratory Failure CAD s/p CABG LV Systolic Dysfunction PAD PUD CKD HTN DM Hyperlipidemia - IV medrol converted to prednisone - inhaled bronchodilators standing and PRN - O2 to keep SpO2 >90% - Noted Azithromycin - DVT prophylaxis - No smoking Ruddy BARKER MD
--- NOTE | 2019-05-21 15:49 | PN ---
Progress Note, Physician Chief Complaint: sob History of Present Illness: seen and examined at bedside. no acute events overnight. feeling well, wants to go home. - Current Medication List Current Medications: Active Medications Albuterol Sulfate (Ventolin 0.083% Nebulizer Soln -) 1 amp NEB Q4H PRN PRN Reason: SHORT OF BREATH/WHEEZING Albuterol/Ipratropium (Duoneb -) 1 amp NEB RQID [facility] Last Admin: 05/21/19 12:00 Dose: 1 amp Carvedilol (Coreg -) 3.125 mg PO BID [facility] Last Admin: 05/21/19 10:16 Dose: 3.125 mg Clopidogrel Bisulfate (Plavix -) 75 mg PO DAILY [facility] Last Admin: 05/21/19 10:16 Dose: 75 mg Escitalopram Oxalate (Lexapro -) 20 mg PO DAILY [facility] Last Admin: 05/18/19 10:52 Dose: 20 mg Heparin Sodium (Porcine) (Heparin -) 5,000 unit SQ TID [facility] Last Admin: 05/21/19 06:50 Dose: 5,000 unit Azithromycin 250 mg/ Dextrose 250 mls @ 250 mls/hr IVPB DAILY [facility] Last Admin: 05/21/19 12:12 Dose: 250 mls/hr Insulin Aspart (Novolog Vial Sliding Scale -) 1 vial SQ ACHS [facility]; Protocol Last Admin: 05/21/19 12:06 Dose: 10 units Insulin Detemir (Levemir Vial) 20 units SQ DAILY@0700 [facility] Last Admin: 05/21/19 06:50 Dose: 20 units Melatonin (Melatonin) 3 mg PO HS [facility] Last Admin: 05/20/19 23:46 Dose: 3 mg Non-Formulary Medication (Droxidopa [Northera]) 100 mg PO DAILY [facility] Prednisone (Deltasone -) 40 mg PO DAILY [facility] Rosuvastatin Calcium (Crestor -) 20 mg PO HS [facility] Last Admin: 05/20/19 23:46 Dose: 20 mg Sodium Bicarbonate (Sodium Bicarbonate -) 650 mg PO BID [facility] Last Admin: 05/21/19 10:16 Dose: 650 mg Tamsulosin HCl (Flomax -) 0.4 mg PO DAILY@0830 [facility] Last Admin: 05/21/19 10:16 Dose: 0.4 mg - Objective Vital Signs: Vital Signs Temperature 97.6 F 05/21/19 14:00 Pulse Rate 57 L 01/11/20 14:00 Respiratory Rate 18 05/21/19 14:00 Blood Pressure 145/61 05/21/19 14:00 O2 Sat by Pulse Oximetry (%) 95 05/21/19 10:00 Constitutional: Yes: Well Nourished, No Distress, Calm Cardiovascular: Yes: WNL, Regular Rate and Rhythm Respiratory: Yes: WNL, Regular, CTA Bilaterally Gastrointestinal: Yes: WNL, Normal Bowel Sounds, Soft Extremities: Yes: WNL Edema: No Labs: CBC, BMP 05/20/19 15:00 05/21/19 09:38 INR, PTT INR 1.08 (0.83-1.09) 05/18/19 03:30 Problem List - Problems (1) Acute on chronic diastolic CHF (congestive heart failure) Code(s): I50.33 - ACUTE ON CHRONIC DIASTOLIC (CONGESTIVE) HEART FAILURE (2) Acute on chronic renal insufficiency Code(s): N28.9 - DISORDER OF KIDNEY AND URETER, UNSPECIFIED; N18.9 - CHRONIC KIDNEY DISEASE, UNSPECIFIED (3) Anemia Code(s): D64.9 - ANEMIA, UNSPECIFIED Qualifiers: Anemia type: due to chronic kidney disease Chronic kidney disease stage: stage 3 (moderate) Qualified Code(s): N18.3 - Chronic kidney disease, stage 3 (moderate); D63.1 - Anemia in chronic kidney disease; D63.1 - Anemia in chronic kidney disease (4) BPH (benign prostatic hypertrophy) Code(s): N40.0 - BENIGN PROSTATIC HYPERPLASIA WITHOUT LOWER URINRY TRACT SYMP Qualifiers: Lower urinary tract symptom presence: presence of symptoms unspecified (5) CAD (coronary artery disease) Code(s): I25.10 - ATHSCL HEART DISEASE OF [place] CORONARY ARTERY W/O ANG PCTRS Qualifiers: Coronary Disease-Associated Artery/Lesion type: [place] artery [place] vs. transplanted heart: [place] heart Associated angina: without angina Qualified Code(s): I25.10 - Atherosclerotic heart disease of [place] coronary artery without angina pectoris (6) COPD (chronic obstructive pulmonary disease) Code(s): J44.9 - CHRONIC OBSTRUCTIVE PULMONARY DISEASE, UNSPECIFIED Qualifiers: (7) Type 2 diabetes mellitus Code(s): E11.9 - TYPE 2 DIABETES MELLITUS WITHOUT COMPLICATIONS Assessment/Plan 78 year old male LV sysolic function dysfunction s/p ICD placement, CAD s/p CABG, PCI/stent, HTN, hyperlipidemia, PAD s/p fem/pop Bypass, fem-pop bypass, DM , COPD, PUD s/p Bilroth II gastrectomy, achalasia , Heller's myomectomy, gout, kidney stones, CKD, BPH. admitted for acute copd exacerbation 1) Acute COPD exacerbation -transitioned to PO steroids -inhaled nebs -zithromycin-2 more days -pulm radhaal appreciated -DC planning for AM 2) D. CHF exacerbation -monitor i/os and daily weights -resume entresto in AM 3) APRYL on CKD -improving -fluids stopped -repeat labs in am -renal following -restart entresto in AM 4) Depression, holding celexa until completion of zithromax 5) Hx of CAD s/p CABG on plavix/coreg 6) T2DM on insulin continue with ss with coverage and levemir in am 7) Ventral Hernia: seen by surgery, no intervention at this time
--- NOTE | 2019-05-21 17:25 | PN ---
Progress Note, Physician History of Present Illness: Pt seen and examined at bedside. He is awake and alert. He denies shortness of breath. - Current Medication List Current Medications: Active Medications Albuterol Sulfate (Ventolin 0.083% Nebulizer Soln -) 1 amp NEB Q4H PRN PRN Reason: SHORT OF BREATH/WHEEZING Albuterol/Ipratropium (Duoneb -) 1 amp NEB RQID [facility] Last Admin: 05/21/19 15:46 Dose: 1 amp Carvedilol (Coreg -) 3.125 mg PO BID [facility] Last Admin: 05/21/19 10:16 Dose: 3.125 mg Clopidogrel Bisulfate (Plavix -) 75 mg PO DAILY [facility] Last Admin: 05/21/19 10:16 Dose: 75 mg Escitalopram Oxalate (Lexapro -) 20 mg PO DAILY [facility] Last Admin: 05/18/19 10:52 Dose: 20 mg Heparin Sodium (Porcine) (Heparin -) 5,000 unit SQ TID [facility] Last Admin: 05/21/19 16:33 Dose: 5,000 unit Azithromycin 250 mg/ Dextrose 250 mls @ 250 mls/hr IVPB DAILY [facility] Last Admin: 05/21/19 12:12 Dose: 250 mls/hr Insulin Aspart (Novolog Vial Sliding Scale -) 1 vial SQ ACHS [facility]; Protocol Last Admin: 05/21/19 16:33 Dose: 10 units Insulin Detemir (Levemir Vial) 20 units SQ DAILY@0700 [facility] Last Admin: 05/21/19 06:50 Dose: 20 units Melatonin (Melatonin) 3 mg PO HS [facility] Last Admin: 05/20/19 23:46 Dose: 3 mg Non-Formulary Medication (Droxidopa [Northera]) 100 mg PO DAILY [facility] Prednisone (Deltasone -) 40 mg PO DAILY [facility] Rosuvastatin Calcium (Crestor -) 20 mg PO HS [facility] Last Admin: 05/20/19 23:46 Dose: 20 mg Sodium Bicarbonate (Sodium Bicarbonate -) 650 mg PO BID [facility] Last Admin: 05/21/19 10:16 Dose: 650 mg Tamsulosin HCl (Flomax -) 0.4 mg PO DAILY@0830 [facility] Last Admin: 05/21/19 10:16 Dose: 0.4 mg - Objective Vital Signs: Vital Signs Temperature 97.6 F 05/21/19 14:00 Pulse Rate 57 L 05/21/19 14:00 Respiratory Rate 18 05/21/19 14:00 Blood Pressure 145/61 05/21/19 14:00 O2 Sat by Pulse Oximetry (%) 95 05/21/19 10:00 Constitutional: Yes: Calm Eyes: Yes: Conjunctiva Clear HENT: Yes: Atraumatic Neck: Yes: Supple Cardiovascular: Yes: S1, S2 Respiratory: Yes: Rhonchi Gastrointestinal: Yes: Soft Genitourinary: Yes: WNL Musculoskeletal: Yes: WNL Edema: No Neurological: Yes: Oriented Psychiatric: Yes: Oriented Labs: CBC, BMP 05/20/19 15:00 05/21/19 09:38 INR, PTT INR 1.08 (0.83-1.09) 05/18/19 03:30 Problem List - Problems (1) Achalasia Code(s): K22.0 - ACHALASIA OF CARDIA (2) Acute kidney injury Code(s): N17.9 - ACUTE KIDNEY FAILURE, UNSPECIFIED Assessment/Plan Current Medications Generic Name Dose Route Start Last Admin Trade Name Freq PRN Reason Stop Dose Admin Albuterol Sulfate 1 amp 05/18/19 14:09 Ventolin 0.083% Nebulizer Soln - NEB Q4H PRN SHORT OF BREATH/WHEEZING Albuterol/Ipratropium 1 amp 05/18/19 08:00 05/21/19 15:46 Duoneb - NEB 1 amp RQID [facility] Administration Carvedilol 3.125 mg 05/18/19 10:00 05/21/19 10:16 Coreg - PO 3.125 mg BID [facility] Administration Clopidogrel Bisulfate 75 mg 05/18/19 10:00 05/21/19 10:16 Plavix - PO 75 mg DAILY [facility] Administration Escitalopram Oxalate 20 mg 05/18/19 10:00 05/18/19 10:52 Lexapro - PO 20 mg DAILY [facility] Administration Heparin Sodium (Porcine) 5,000 unit 05/18/19 14:00 05/21/19 16:33 Heparin - SQ 5,000 unit TID [facility] Administration Azithromycin 250 mg/ Dextrose 250 mls @ 250 mls/hr 05/19/19 10:00 05/21/19 12 :12 IVPB 250 mls/hr DAILY [facility] Administration Insulin Aspart 1 vial 05/18/19 11:00 05/21/19 16:33 Novolog Vial Sliding Scale - SQ 10 units ACHS [facility] Administration Protocol Insulin Detemir 20 units 05/18/19 12:30 05/21/19 06:50 Levemir Vial SQ 20 units DAILY@0700 [facility] Administration Melatonin 3 mg 05/19/19 22:00 05/20/19 23:46 Melatonin PO 3 mg HS [facility] Administration Non-Formulary Medication 100 mg 05/18/19 10:00 Droxidopa [Northera] PO DAILY [facility] Prednisone 40 mg 05/22/19 10:00 Deltasone - PO DAILY [facility] Rosuvastatin Calcium 20 mg 05/18/19 22:00 05/20/19 23:46 Crestor - PO 20 mg HS [facility] Administration Sodium Bicarbonate 650 mg 05/18/19 13:45 05/21/19 10:16 Sodium Bicarbonate - PO 650 mg BID [facility] Administration Tamsulosin HCl 0.4 mg 05/18/19 08:30 05/21/19 10:16 Flomax - PO 0.4 mg DAILY@0830 [facility] Administration Impression 1. CKD 2. dehydration 3. PVD 4. HLD 5. CHF 6. atrophic left kidney Plan - renal function has improved - repeat labs in am - volume status is stable - avoid nsaids - abx per medical team
[2019-05-21] MEDS: MELATONIN 1 MG TABLET PO SCH (21:54)
[2019-05-21] MEDS: ROSUVASTATIN CA 20 MG TABLET (FP) PO SCH (21:54)
[2019-05-22] MEDS: HEPARIN NA (PORCINE) 5,000 UNITS/ML 1ML VIAL SQ SCH ×2 (06:58→14:40)
[2019-05-22] MEDS: INSULIN (LEVEMIR) 100 UNITS/ML UNITS SQ SCH (06:58)
[2019-05-22] MEDS: INSULIN SLIDING SCALE (NOVOLOG) 1 VIAL SQ SCH ×2 (06:59→11:26)
[2019-05-22] MEDS: ALBUTEROL SO4 2.5/IPRATROPIUM 0.5 INH SOL 3 ML VIAL.NEB. NEB SCH ×2 (07:35→11:25)
[2019-05-22 09:40] VITALS: BP 115/54; PULSE 69; TEMP 98
[2019-05-22 09:55] LABS: BLOOD UREA NITROGEN 47.8 mg/dL (7-18); CALCIUM 9.3 mg/dL (8.5-10.1); CREATININE 1.4 mg/dL (0.55-1.3); POTASSIUM 4.4 mmol/L (3.5-5.1)
[2019-05-22] MEDS ORDERED: predniSONE 20 MG TABLET (UD) PO SCH (10:00)
[2019-05-22] MEDS ORDERED: PT OWN MED DRAWER 7, Y5N ONE (10:21)
[2019-05-22] MEDS: AZITHROMYCIN IVPB 250 MG in DEXTROSE 5%-WATER - 250 ML IVPB SCH (10:42)
[2019-05-22] MEDS: TAMSULOSIN HCL 0.4 MG CAP PO SCH (10:43)
[2019-05-22] MEDS: SODIUM BICARBONATE 650 MG TABLET PO SCH (10:43)
[2019-05-22] MEDS: CARVEDILOL 3.125 MG TABLET (FP) PO SCH (10:43)
[2019-05-22] MEDS: CLOPIDOGREL BISULFATE 75 MG TABLET (FP) PO SCH (10:43)
[2019-05-22] MEDS: ESCITALOPRAM OXALATE 20 MG TABLET (FP) PO SCH (10:43)
--- NOTE | 2019-05-22 13:14 | DS ---
Physical Examination Vital Signs: Vital Signs Temperature 98.0 F 05/22/19 09:39 Pulse Rate 69 05/22/19 09:39 Respiratory Rate 18 05/22/19 09:39 Blood Pressure 115/54 L 05/22/19 09:39 O2 Sat by Pulse Oximetry (%) 94 L 05/22/19 09:46 Findings/Remarks: SEEN AND EXAMINED AT BEDSIDE. FEELING WELL, READY TO GO HOME. NO SOB, PALPITATIONS, NVD. Constitutional: Yes: Well Nourished, No Distress, Calm Neck: Yes: WNL, Supple, Trachea Midline Cardiovascular: Yes: WNL, Regular Rate and Rhythm Respiratory: Yes: WNL, Regular, CTA Bilaterally Gastrointestinal: Yes: WNL, Normal Bowel Sounds, Soft Musculoskeletal: Yes: WNL Extremities: Yes: WNL Edema: No Labs: CBC, BMP 05/20/19 15:00 05/22/19 08:47 Discharge Summary Problems reviewed: Yes Reason For Visit: TYPE 2 DIABETES MELLITUS,CHRONIC OBSTRUCTIVE Hospital Course: 78 year old male LV sysolic function dysfunction s/p ICD placement, CAD s/p CABG, PCI/stent, HTN, hyperlipidemia, PAD s/p fem/pop Bypass, fem-pop bypass, DM , COPD, PUD s/p Bilroth II gastrectomy, achalasia , Heller's myomectomy, gout, kidney stones, CKD, BPH. admitted for acute copd exacerbation 1) Acute COPD exacerbation -transitioned to PO steroids, taper sent to pharmacy -inhaled nebs -COMPLETED ZPAK -pulm eval appreciated -stable for dc home 2) D. CHF exacerbation -resumed entresto 3) APRYL on CKD -improving -renal following -restarted entresto in AM 4) Depression, on celexa 5) Hx of CAD s/p CABG on plavix/coreg 6) T2DM on insulin 7) Ventral Hernia: seen by surgery, no intervention at this time stable for dc home Condition: Stable - Instructions Diet, Activity, Other Instructions: LOW SODIUM LOW POTASSIUM DIET Referrals: Vikash Guerra MD [Primary Care Provider] - Disposition: HOME - Home Medications Comprehensive Discharge Medication List: Ambulatory Orders Carvedilol 3.125 mg PO BID 12/08/18 Escitalopram Oxalate [Lexapro -] 20 mg PO DAILY 12/08/18 Rosuvastatin Calcium [Crestor] 20 mg PO HS 12/08/18 Insulin Glargine,Hum.rec.anlog [Lantus Solostar PEN -] 58 units SQ HS 01/11/19 Tamsulosin HCl 0.4 mg PO DAILY 01/11/19 Albuterol 0.083% Nebulizer Fatuma [Ventolin 0.083% Nebulizer Soln -] 1 amp NEB ONCE 04/07/19 Clopidogrel Bisulfate [Clopidogrel] 75 mg PO DAILY 04/07/19 Droxidopa [Northera] 100 mg PO DAILY 04/07/19 Insulin Lispro [Humalog Ponce Kwikpen] 10 - 34 unit SQ TID 04/07/19 Melatonin 10 mg PO HS 04/07/19 Sacubitril/Valsartan [Entresto 24 mg-26 mg Tablet] 1 each PO BID 04/07/19 predniSONE [Deltasone -] 10 mg PO ASDIR #40 tab 05/22/19
--- NOTE | 2019-05-22 15:50 | PN ---
Progress Note, Physician History of Present Illness: No new events. Feels better. - Objective Vital Signs: Vital Signs Temperature 98.0 F 05/22/19 09:39 Pulse Rate 69 05/22/19 09:39 Respiratory Rate 18 05/22/19 09:39 Blood Pressure 115/54 L 05/22/19 09:39 O2 Sat by Pulse Oximetry (%) 94 L 05/22/19 09:46 Constitutional: Yes: Calm Eyes: Yes: Conjunctiva Clear HENT: Yes: Atraumatic Cardiovascular: Yes: S1, S2 Respiratory: Yes: CTA Bilaterally Gastrointestinal: Yes: Soft Genitourinary: Yes: WNL Musculoskeletal: Yes: WNL Edema: No Neurological: Yes: Oriented Psychiatric: Yes: Oriented Labs: CBC, BMP 05/20/19 15:00 05/22/19 08:47 INR, PTT INR 1.08 (0.83-1.09) 05/18/19 03:30 Problem List - Problems (1) Achalasia Code(s): K22.0 - ACHALASIA OF CARDIA (2) Acute kidney injury Code(s): N17.9 - ACUTE KIDNEY FAILURE, UNSPECIFIED Assessment/Plan Impression 1. CKD 2. dehydration 3. PVD 4. HLD 5. CHF 6. atrophic left kidney Plan - weasand trimmer has stabilized - bun improving - prednisone taper - pt will follow in office - avoid nsaids - likely d/c today
== END 2019-05-22 14:47 | disposition home or self-care (01) | DRG 190 ==
LOC: JER 02:58 → JERBED 04:35 → J5S 20:52
PROVIDERS: ADMIT Internal Medicine; ATTEND Internal Medicine
DX: J44.1 Chronic obstructive pulmonary disease with (acute) exacerbation (principal); I50.33 Acute on chronic diastolic (congestive) heart failure; J96.11 Chronic respiratory failure with hypoxia; I13.0 Hypertensive heart and chronic kidney disease with heart failure and stage 1 through stage 4 chronic kidney disease, or unspecified chronic kidney disease; N17.9 Acute kidney failure, unspecified; E46 Unspecified protein-calorie malnutrition; J44.9 Chronic obstructive pulmonary disease, unspecified; I25.10 Atherosclerotic heart disease of native coronary artery without angina pectoris; N18.9 Chronic kidney disease, unspecified; E78.5 Hyperlipidemia, unspecified; I73.9 Peripheral vascular disease, unspecified; K43.9 Ventral hernia without obstruction or gangrene; Z95.1 Presence of aortocoronary bypass graft; Z95.5 Presence of coronary angioplasty implant and graft; F32.9 Major depressive disorder, single episode, unspecified; E86.0 Dehydration; J06.9 Acute upper respiratory infection, unspecified; N40.0 Benign prostatic hyperplasia without lower urinary tract symptoms; I25.5 Ischemic cardiomyopathy; E88.09 Other disorders of plasma-protein metabolism, not elsewhere classified; Z68.24 Body mass index [BMI] 24.0-24.9, adult; E11.65 Type 2 diabetes mellitus with hyperglycemia
CPT/HCPCS: 36415; 71045-TC-FY; 76775-TC; 76856-TC; 80048; 80053; 81003; 82436; 82550; 82565; 82803; 82962; 83605; 83735; 83880; 84100; 84133; 84300; 84484; 85025; 85610; 85730; 87040; 87086; 87804; 87807; 87899; 93005; 93010; 94640; 97116-GP; 99285-25; J0131; J1644; J7030

== ENCOUNTER 2019-05-27 11:14 | Inpatient (IN) | payer OTHER, MEDICARE ==
--- NOTE | 2019-05-27 12:11 | PDOC ---
History of Present Illness - General Chief Complaint: Nausea/Vomiting Stated Complaint: N/V/D Time Seen by Provider: 05/27/19 12:06 History Source: Patient Exam Limitations: No Limitations - History of Present Illness Initial Comments: 05/27/19 12:11 Juanito Gates is a 78M with PMH CAD s/p pacer and CABG 6 months ago on Plavix, PAD, COPD not on home O2, recently admitted for COPD exacerbation and APRYL, presenting with nonspecific weakness, dizziness, chest pain, nausea and vomiting. Patient reports one day of dizziness, weakness, nausea, and mild NBNB vomiting. Has history of chronic weakness and falls due to R leg weakness for the last year. Fell off toilet today, denies chest pain, SOB, palpitations, syncope, LOC or head trauma at that time. Reported last night had some acute onset chest pain that went away after taking an unknown heart medication. Has chronic nonproductive cough, chronic COPD, denies fever but reports chills. Walks at home with cane. Currently reports room-spinning dizziness, weakness, and poor PO intake. Denies palpitations or SOB. Denies bodily injury or trauma. Sick contact is at home recently discharged from [facility] for PNA. Got flu shot this year. Past History - Past Medical History Allergies/Adverse Reactions: Allergies Allergy/AdvReac Type Severity Reaction Status Date / Time pregabalin [From Lyrica] Allergy Severe Verified 05/27/19 11:27 Home Medications: Ambulatory Orders Carvedilol 3.125 mg PO BID 12/08/18 Escitalopram Oxalate [Lexapro -] 20 mg PO DAILY 12/08/18 Rosuvastatin Calcium [Crestor] 20 mg PO HS 12/08/18 Insulin Glargine,Hum.rec.anlog [Lantus Solostar PEN -] 58 units SQ HS 01/11/19 Tamsulosin HCl 0.4 mg PO DAILY 01/11/19 Albuterol 0.083% Nebulizer Fatuma [Ventolin 0.083% Nebulizer Soln -] 1 amp NEB ONCE 04/07/19 Clopidogrel Bisulfate [Clopidogrel] 75 mg PO DAILY 04/07/19 Droxidopa [Northera] 100 mg PO DAILY 04/07/19 Insulin Lispro [Humalog Ponce [place]] 10 - 34 unit SQ TID 04/07/19 Melatonin 10 mg PO HS 04/07/19 Sacubitril/Valsartan [Entresto 24 mg-26 mg Tablet] 1 each PO BID 04/07/19 predniSONE [Deltasone -] 10 mg PO ASDIR #40 tab 05/22/19 Anemia: No Asthma: No Cancer: No Cardiac Disorders: Yes (4 stents, triple bypass) CVA: No COPD: No CHF: Yes Dementia: No Diabetes: Yes GI Disorders: No Disorders: No HTN: Yes Hypercholesterolemia: Yes Kidney Stones: No Liver Disease: No Psychiatric Problems: No Seizures: No Thyroid Disease: No Lung CA: No - Surgical History Abdominal Surgery: Yes (PARTIAL GASTRECTOMY,H/O ULCERS EGD BIOPSY 2009,EGD H- PYLORI 2006,COLON 2003) Appendectomy: Yes Cardiac Surgery: Yes Cholecystectomy: Yes Lung Surgery: Yes (ICD,STENTS ,TRIPLE BYPASS) Neurologic Surgery: No Orthopedic Surgery: No - Reproductive History Testicular Surgery: Yes - Immunization History Immunization Up to Date: Yes - Psycho Social/Smoking Cessation Hx Smoking Status: Yes Smoking History: Former smoker Years of Tobacco Use: 50 Have you smoked in the past 12 months: No Number of Cigarettes Smoked Daily: 30 If you are a former smoker, when did you quit?: 1 year ago Cigars Per Day: 20 Information on smoking cessation initiated: No 'Breaking Loose' booklet given: 05/18/19 Hx Alcohol Use: Yes Drug/Substance Use Hx: Yes Substance Use Type: Cocaine Hx Substance Use Treatment: No Review of Systems - Review of Systems Able to Perform ROS?: Yes Constitutional: Yes: Chills, Loss of Appetite, Malaise, Weakness. No: Fever HEENTM: No: Symptoms Reported Respiratory: Yes: Cough (chronic). No: Shortness of Breath Cardiac (ROS): Yes: Chest Pain, Lightheadedness. No: Irregular Heart Rate, Palpitations, Syncope, Chest Tightness ABD/GI: Yes: Nausea, Poor Appetite, Poor Fluid Intake, Vomiting. No: Constipated, Diarrhea : No: Symptoms Reported Musculoskeletal: No: Back Pain, Muscle Pain, Neck Pain Integumentary: No: Symptoms Reported Neurological: Yes: Weakness, Unsteady Gait. No: Headache, Numbness, Paresthesia Endocrine: No: Symptoms Reported Hematologic/Lymphatic: No: Symptoms Reported All Other Systems: Reviewed and Negative *Physical Exam - Vital Signs Last Vital Signs Temp Pulse Resp BP Pulse Ox 97.6 F 82 17 91/64 05/27/19 11:14 05/27/19 11:14 05/27/19 11:14 05/27/19 11:14 - Physical Exam General Appearance: Yes: Appropriately Dressed, Thin. No: Apparent Distress HEENT: positive: EOMI, Normal Voice, Symmetrical, Hearing Grossly Normal. 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 negative: Tender, Lymphadenopathy (R), Lymphadenopathy (L), Rigidity, Tender lateral, Tender midline Respiratory/Chest: positive: Rhonchi, Wheezing. negative: Chest Tender, Lungs Clear, Normal Breath Sounds, Respiratory Distress, Accessory Muscle Use, Crackles, Rales Cardiovascular: positive: Regular Rhythm, Regular Rate. negative: Murmur Gastrointestinal/Abdominal: positive: Normal Bowel Sounds, Flat, Soft. negative : Tender, Organomegaly, Pulsatile Mass, Guarding, Rebound, Tenderness Musculoskeletal: positive: Normal Inspection, Vertebral Tenderness. negative: CVA Tenderness Extremity: positive: Normal Inspection, Normal Range of Motion, Pelvis Stable. negative: Tender Integumentary: positive: Normal Color, Dry, Warm Neurologic: positive: box cutter II-XII NML intact, Fully Oriented, Alert, Normal Mood/ Affect, Normal Response, Motor Strength 5/5 (no tone deficit to BLE, no evidence of bony injuries or deformities, DP pulses intact, sensation intact to LT, moving toes and legs spontaneosly) ED Treatment Course - LABORATORY CBC & Chemistry Diagram: 05/27/19 13:05 05/27/19 13:05 Medical Decision Making - Medical Decision Making 05/27/19 13:35 Patient is a 78M with significant cardiac (CAD/ICD/CABG) and pulmonary (COPD) disease with recent admission for APRYL and COPD exacerbation presenting with similar complaints to last time: weakness, dizziness, now one episode of chest pain. Last time was treated for COPD and APRYL and discharged home, patient now returns 5 days later. Patient is denying abdominal pain, SAWYER, chest pain, SOB at this time. Non-specific symptoms and patient is poor historian, concern for CT, PNA, electrolyte abnormality, dehydration, pancreatitis, UTI. - CBC/CMP for evaluation of lytes and systemic infection - ECG/CP for evaluation of cardiac etiologies - CXR for evaluation of PNA - lipase for evaluation of pancreatitis - UA/UC for evaluation of UTI 05/27/19 15:13 Labs notable for: - K 5.8, giving Duonebs, 6U insulin/25mg D50, 1 amp bicarb - transaminitis 100/100 - Cr 1.9 up from 1.4 five days ago consistent with APRYL 05/27/19 17:28 Initial trop negative. Rechecking BMP and getting 2nd trop now. Patient requires admission for APRYL, hyperkalemia, transaminitis, and HEART score 6, merits further cardiac evaluation in setting of extensive history and chest pain. 05/27/19 17:49 Discussed case with admitting team, good for admission to [facility] under Dr. Navarro. Discharge - Discharge Information Problems reviewed: Yes Clinical Impression/Diagnosis: Hyperkalemia, Acute on chronic renal insufficiency, Acute kidney injury Condition: Stable - Admission Yes - Follow up/Referral Referrals: Vikash Guerra MD [Primary Care Provider] - - Patient Discharge Instructions - Post Discharge Activity
[2019-05-27] MEDS ORDERED: ALBUTEROL SO4 2.5/IPRATROPIUM 0.5 INH SOL 3 ML VIAL.NEB. NEB ONE (13:39)
[2019-05-27 13:57] LABS: ALBUMIN 3.2 g/dl (3.4-5.0); BILIRUBIN,TOTAL 0.8 mg/dL (0.2-1); BLOOD UREA NITROGEN 58.4 mg/dL (7-18); CALCIUM 8.9 mg/dL (8.5-10.1); CREATININE 1.9 mg/dL (0.55-1.3); POTASSIUM 5.8 mmol/L (3.5-5.1); TOT PROT 7.2 g/dl (6.4-8.2)
--- NOTE | 2019-05-27 14:14 | PDOC ---
Documentation entered by Tawnya Uribe SCRIBE, acting as scribe for Nereida Diggs MD. Nereida Diggs MD: This documentation has been prepared by the Jojo looney Brenda, SCRIBE, under my direction and personally reviewed by me in its entirety. I confirm that the documentation accurately reflects all work, treatment, procedures, and medical decision making performed by me. Attending Attestation - Resident Resident Name: Jose LLucas - ED Attending Attestation I have performed the following: I have examined & evaluated the patient, The case was reviewed & discussed with the resident, I agree w/resident's findings & plan, Exceptions are as noted - HPI HPI: 78 yo M history CAD, AICD, CABG, COPD, PAD presents with weakness, dizziness, N/ V. Patient is poor historian, vague with his symptoms. He was recently admitted for similar symptoms. He states he fell today. Has had multiple falls at home. Denies abdominal pain. - Physicial Exam PE: GENERAL: Awake, alert, and fully oriented, in no acute distress HEAD: No signs of trauma EYES: PERRLA, EOMI, sclera anicteric, conjunctiva clear ENT: Auricles normal inspection, hearing grossly normal, nares patent, oropharynx clear without exudates. Dry mucosa NECK: Normal ROM, supple, no lymphadenopathy, JVD, or masses LUNGS: Breath sounds equal, clear to auscultation bilaterally. No wheezes, and no crackles HEART: Regular rate and rhythm, normal S1 and S2, no murmurs, rubs or gallops ABDOMEN: Soft, nontender, normoactive bowel sounds. No guarding, no rebound. No masses EXTREMITIES: Normal range of motion, no edema. No clubbing or cyanosis. No cords, erythema, or tenderness NEUROLOGICAL: Cranial nerves II through XII grossly intact. Normal speech. Motor and sensation intact SKIN: Warm, dry, normal turgor, no rashes or lesions noted. - Medical Decision Making Pt found to have APRYL. Case d/w nephrology. Admit.
[2019-05-27 14:17] LABS: BASO % 0.2 % (0-2.0); EOS % 0.2 % (0-4.5); HEMATOCRIT 46.7 % (35.4-49); HEMOGLOBIN 15.3 GM/dL (11.7-16.9); LYMPH % 5.1 % (8-40); MCH 25.2 pg (25.7-33.7); MCHC 32.7 g/dl (32.0-35.9); MEAN CELL VOLUME 77.1 fl (80-96); MEAN PLT VOLUME 8.6 fl (7.5-11.1); MONO % 5.6 % (3.8-10.2); NEUT % 88.9 % (42.8-82.8); PLATELET COUNT 153 K/MM3 (134-434); RBC 6.06 M/mm3 (4.00-5.60); RDW 18.9 % (11.9-15.9)
[2019-05-27 14:30] LABS: INR 1.01 (0.83-1.09); PROTHROMBIN TIME (PATIENT) 11.9 SEC (9.7-13.0)
[2019-05-27 14:32] LABS: ACTIVATED PTT 28.9 SECONDS (25.2-36.5)
[2019-05-27 14:49] LABS: LIPASE 122 U/L (73-393)
[2019-05-27] MEDS ORDERED: INSULIN REGULAR HUMAN 100 UNITS/ML *VIAL IVPUSH ONE (14:58)
[2019-05-27] MEDS ORDERED: DEXTROSE 50%-WATER - 25 GM/50 ML VIAL IVPUSH ONE (15:06)
[2019-05-27] MEDS ORDERED: SODIUM BICARBONATE 8.4% 50 MEQ/50 ML DISP.SYRIN IVPUSH ONE (15:10)
[2019-05-27] MEDS ORDERED: SODIUM BICARBONATE 8.4% 50 MEQ/50 ML VIAL ONE (15:51)
[2019-05-27] MEDS ORDERED: DEXTROSE 50%-WATER 25 GM/50 ML DISP.SYRIN ONE (15:51)
[2019-05-27] MEDS ORDERED: INSULIN REGULAR HUMAN 100 UNITS/ML *VIAL ONE (15:54)
[2019-05-27] MEDS ORDERED: SODIUM CHLORIDE 0.9% 500 ML INFUS.BAG IV ONE (17:37)
[2019-05-27] MEDS ORDERED: SODIUM ZIRCONIUM CYCLOSILICATE (LOKELMA) 5 GM PACKET PO ONE (18:46)
--- NOTE | 2019-05-27 18:46 | CONSULT ---
Consult Consult Specialty:: Nephrology Reason for Consultation:: APRYL - History of Present Illness Chief Complaint: weakness History of Present Illness: Pt is a 78 year old male with pmhx of cad, apryl, ckd, copd, pvd who presents with weakness. He also complains of an episode of vomiting. He was recently discharged a few days ago. He denies shortness of breath. HE did have a fall as well. he was found to have hyperkalemia and apryl. - History Source History Provided By: Patient, Medical Record - Past Medical History Cardio/Vascular: Yes: CAD, CHF, HTN, Hyperlipdemia, [place] Pulmonary: Yes: Asthma, Bronchitis, COPD, Pneumonia Gastrointestinal: Yes: Constipation Renal/: Yes: BPH Musculoskeletal: Yes: Chronic low back pain, Osteoarthritis Endocrine: Yes: Diabetes Mellitus - Past Surgical History Past Surgical History: Yes: CABG, Cholecystectomy - Alcohol/Substance Use Hx Alcohol Use: Yes History of Substance Use: reports: None - Smoking History Smoking history: Former smoker Have you smoked in the past 12 months: No Aproximately how many cigarettes per day: 30 If you are a former smoker, when did you quit?: 1 year ago - Social History Usual Living Arrangement: With Spouse ADL: Independent Occupation: retired: worked for [employer] History of Recent Travel: No Home Medications - Allergies Allergies/Adverse Reactions: Allergies Allergy/AdvReac Type Severity Reaction Status Date / Time pregabalin [From Lyrica] Allergy Severe Verified 05/27/19 11:27 - Home Medications Home Medications: Ambulatory Orders Carvedilol 3.125 mg PO BID 12/08/18 Escitalopram Oxalate [Lexapro -] 20 mg PO DAILY 12/08/18 Rosuvastatin Calcium [Crestor] 20 mg PO HS 12/08/18 Insulin Glargine,Hum.rec.anlog [Lantus Solostar PEN -] 58 units SQ HS 01/11/19 Tamsulosin HCl 0.4 mg PO DAILY 01/11/19 Albuterol 0.083% Nebulizer Fatuma [Ventolin 0.083% Nebulizer Soln -] 1 amp NEB ONCE 04/07/19 Clopidogrel Bisulfate [Clopidogrel] 75 mg PO DAILY 04/07/19 Droxidopa [Northera] 100 mg PO DAILY 04/07/19 Insulin Lispro [Humalog Ponce Kwikpen] 10 - 34 unit SQ TID 04/07/19 Melatonin 10 mg PO HS 04/07/19 Sacubitril/Valsartan [Entresto 24 mg-26 mg Tablet] 1 each PO BID 04/07/19 predniSONE [Deltasone -] 10 mg PO ASDIR #40 tab 05/22/19 Family Medical History Family History: Denies Review of Systems - Review of Systems Constitutional: reports: Malaise Eyes: reports: No Symptoms HENT: reports: No Symptoms Neck: reports: No Symptoms Cardiovascular: reports: No Symptoms Respiratory: reports: No Symptoms Gastrointestinal: reports: Bloating Genitourinary: reports: No Symptoms Musculoskeletal: reports: No Symptoms Integumentary: reports: No Symptoms Neurological: reports: No Symptoms Endocrine: reports: No Symptoms Hematology/Lymphatic: reports: No Symptoms Psychiatric: reports: No Symptoms Physical Exam Vital Signs: Vital Signs Temperature 97.6 F 05/27/19 11:14 Pulse Rate 82 05/27/19 11:14 Respiratory Rate 17 05/27/19 11:14 Blood Pressure 91/64 05/27/19 11:14 O2 Sat by Pulse Oximetry (%) Constitutional: Yes: Calm Eyes: Yes: Conjunctiva Clear HENT: Yes: Atraumatic Neck: Yes: Supple Cardiovascular: Yes: S1, S2 Respiratory: Yes: CTA Bilaterally Gastrointestinal: Yes: Soft Renal/: Yes: WNL Musculoskeletal: Yes: WNL Edema: No Neurological: Yes: Oriented Psychiatric: Yes: Oriented Labs: CBC, BMP 05/27/19 13:05 05/27/19 13:05 Imaging - Results Chest X-ray: Report Reviewed Problem List - Problems (1) Acute kidney injury Code(s): N17.9 - ACUTE KIDNEY FAILURE, UNSPECIFIED (2) Hyperkalemia Code(s): E87.5 - HYPERKALEMIA Assessment/Plan Impression 1. CKD 2. dehydration 3. PVD 4. HLD 5. CHF 6. atrophic left kidney 7. hyperkalemia Plan - potassium treated medically in er - will also give a dose of lokelma - pt received a liter of saline - will start 1/2 ns, should help increase renal tubular flow - repeat labs in am
--- NOTE | 2019-05-27 19:28 | PN ---
Teaching Attending Note Name of Resident: Ricardo Felton ATTENDING PHYSICIAN STATEMENT I saw and evaluated the patient. I reviewed the resident's note and discussed the case with the resident. I agree with the resident's findings and plan as documented. SUBJECTIVE: Patient is a 78 year old man with a PMH of COPD, HFrEF (ischemic cardiomayopathy ), ICD, HTN, CAD (s/p CABG - triple bypass; 4 stents), NIDDM, CKD, Frequent falls, Kidney stones, Gout, Achalasia, and Partial gastrectomy who presents with weakness, dizziness, chest pain, nausea and vomiting. Was recently hospitalized at [facility] from to 05/22/2019 for similar symptoms and was treated as COPD exacerbation and for APRYL. He now reports one day of dizziness, weakness, nausea, and mild NBNB vomiting. Reports one loose stool. Has history of chronic weakness and falls due to R leg weakness for the last year. Fell off toilet today, denies chest pain, SOB, palpitations, syncope, LOC or head trauma at that time. Reported last night had some acute onset chest pain that went away after taking an unknown heart medication. Has chronic nonproductive cough, chronic COPD, denies fever but reports chills. Walks at home with cane. Denies palpitations or SOB. Denies bodily injury or trauma. Sick contact is at home recently discharged from [facility] for PNA. Got flu shot this year. Denies alcohol, tobacco or illicit drug use. No recent travels. OBJECTIVE: Alert and not orthostatic Vital Signs Period Temp Pulse Resp BP Sys/Garcia Pulse Ox Last 24 Hr 97.6 F 82 17 91/64 HEENT: No Jaundice, eye redness or discharge, PERRLA, EOMI. Normocephalic, atraumatic. External ears are normal and hearing is grossly intact. No nasal discharge. Neck: Supple, nontender. No palpable adenopathy or thyromegaly. No JVD Chest: Good effort. Clear to auscultation and percussion. Heart: Regular. No S3, rub or murmur Abdomen: Not distended, soft, nontender and no HSM. No rebound or guarding. Normal bowel sounds. Ext: Peripheral pulses intact. No leg edema. Skin: Warm and dry. No petechiae, rash or ecchymosis. Neuro: Alert. Oriented x3. Frail. CN 2-12 grossly intact. Sensation grossly intact in all four extremities and DTR are symmetric. Psych: Appropriate mood and affect. Good insight. Current Medications Generic Name Dose Route Start Last Admin Trade Name Freq PRN Reason Stop Dose Admin Sodium Chloride 1,000 mls @ 75 mls/hr 05/27/19 19:00 1/2 Normal Saline IV ASDIR KADEEM Home Medications Medication Instructions Recorded Carvedilol 3.125 mg PO BID 12/08/18 Escitalopram Oxalate [Lexapro -] 20 mg PO DAILY 12/08/18 Rosuvastatin Calcium [Crestor] 20 mg PO HS 12/08/18 Insulin Glargine,Hum.rec.anlog 58 units SQ HS 01/11/19 [Lantus Solostar PEN -] Tamsulosin HCl 0.4 mg PO DAILY 01/11/19 Albuterol 0.083% Nebulizer Fatuma 1 amp NEB ONCE 04/07/19 [Ventolin 0.083% Nebulizer Soln -] Clopidogrel Bisulfate [Clopidogrel] 75 mg PO DAILY 04/07/19 Droxidopa [Northera] 100 mg PO DAILY 04/07/19 Insulin Lispro [Humalog Ponce 10 - 34 unit SQ TID 04/07/19 Kwikpen] Melatonin 10 mg PO HS 04/07/19 Sacubitril/Valsartan [Entresto 24 1 each PO BID 04/07/19 mg-26 mg Tablet] predniSONE [Deltasone -] 10 mg PO ASDIR #40 tab 05/22/19 Abnormal Lab Results 05/27/19 05/27/19 13:05 13:05 WBC 16.0 H RBC 6.06 H MCV 77.1 L MCH 25.2 L RDW 18.9 H Absolute Neuts (auto) 14.3 H Neutrophils % 88.9 H Lymphocytes % 5.1 L D Potassium 5.8 H Anion Gap 7 L BUN 58.4 H Creatinine 1.9 H Random Glucose 196 H AST 100 H ALT 153 H Albumin 3.2 L ASSESSMENT AND PLAN: 1. Failure to thrive/Dizziness - Likely due to multiple comorbid issues including CHF - most recent LVEF was 25-30%, hypotension exacerbated by CHF drugs, CKD, Hyperkalemia, COPD and dehydration (though not listed, family reports he takes Lasix ?10 mg daily). Flu swab is negative. CXR shows left upper chest pacemaker and possible RLL infiltrate/atelectasis. Will get a CT scan of chest - withhold antibiotics pending chest CT result. Leukocytosis may be partly due to steroid use - on 15 mg qd tapering dose. Urinalysis is pending. If he has anymore loose BM, will send for stool studies including C.diff. EKG shows NSR, 1o AV block and nonspecific ST-T wave changes. 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 Will get head CT, carotid doppler, do cosyntropin test to rule out adrenal hypofunction, consult PT, Neurology and Endocrine. Will continue comprehensive care for all of patients comorbid conditions including Duoneb PRN. 2. Hypoalbuminemia - Possibly due to combined effects of malnutrition and inflammation associated with comorbid chronic conditions. 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 Urinalysis pending. 3. DM For now, we will hold the home diabetes drugs and implement sliding scale insulin regimen. Provide comprehensive diabetes care with patient teaching and counseling about the importance of adherence to prescribed diabetes regimen, euglycemia, eye care and foot care. 4. CKD - Superimposed APRYL likely due to dehydration. Will consult nephrology and avoid nephrotoxic agents such as NSAIDS, aminoglycosides, contrast dyes and certain Alternative medicine products. 5. Hypertension - Now has hypotension. No need for antihypertensive drugs beyond his CHF regimen. 6. DVT prophylaxis - Heparin 5000u sq tid. 7. Advance directives - Full code
--- NOTE | 2019-05-27 20:35 | HP ---
CHIEF COMPLAINT: dizziness PCP: Dr. Guerra HISTORY OF PRESENT ILLNESS: 78 y/o male PMH HTN, HLD, insulin treated DM, CAD s/p CABG, HFrEF, ICD, PAD s/p femorla/popliteal bypass, PUD s/p Bilroth II gastrectomy, achalasia s/p Heller myotomy), COPD, gout, CKD 3B, BPH and depression c/o loss of balance at home. Pt describes s/p BM at home he fell dizzy upon standing; room spinning. He denies LOC, head trauma, tongue biting, contractures. There was no aura prior and there was no postictal state. When he felt dizzy he sat down on the toilet and needed family to help assist him to bed. During this event he experienced a single episode of diarrhea; non-bloody, non-mucoid. He says that he vomited x1 NBNB food containing. Pt was recently dc from admission for COPD exacerbation and was on steroid taper (third day of 15 mg). He denies CP, SOB, abdominal pain, and any current diziness. ER course was notable for: (1) K 5.8 and administered 6U insulin/25mg D50, 1 amp bicarb (2) Duonebs (3) Flu A/B NEGATIVE Recent Travel: Denies. No sick contacts. No new foods/drugs/herbs/supplements PAST MEDICAL HISTORY: HTN, HLD, insulin treated DM, CAD s/p CABG, HFrEF, ICD, PAD, PAD s/p femorla/popliteal bypass, PUD s/p Bilroth II gastrectomy, achalasia s/p Heller myotomy), COPD, gout, CKD 3B, BPH and depression PAST SURGICAL HISTORY: extensive/as above/ cholecystectomy Family history: mother, blood [place] Social History: Smoking: Former smoker of 3 ppd Alcohol: Denies Drugs: Denies Allergies: pregabalin [From Lyrica] Allergy (Severe, Verified 05/27/19 11:27) vertigo/fainted HOME MEDICATIONS: Home Medications Medication Instructions Recorded Carvedilol 3.125 mg PO BID 12/08/18 Escitalopram Oxalate [Lexapro -] 20 mg PO DAILY 12/08/18 Rosuvastatin Calcium [Crestor] 20 mg PO HS 12/08/18 Insulin Glargine,Hum.rec.anlog 58 units SQ HS 01/11/19 [Lantus Solostar PEN -] Tamsulosin HCl 0.4 mg PO DAILY 01/11/19 Albuterol 0.083% Nebulizer Fatuma 1 amp NEB ONCE 04/07/19 [Ventolin 0.083% Nebulizer Soln -] Clopidogrel Bisulfate [Clopidogrel] 75 mg PO DAILY 04/07/19 Droxidopa [Northera] 100 mg PO DAILY 04/07/19 Insulin Lispro [Humalog Ponce 10 - 34 unit SQ TID 04/07/19 Kwikpen] Melatonin 10 mg PO HS 04/07/19 Sacubitril/Valsartan [Entresto 24 1 each PO BID 04/07/19 mg-26 mg Tablet] predniSONE [Deltasone -] 10 mg PO ASDIR #40 tab 05/22/19 REVIEW OF SYSTEMS CONSTITUTIONAL: Absent: fever, chills, diaphoresis, generalized weakness, malaise, loss of appetite, weight change HEENT: Absent: rhinorrhea, nasal congestion, throat pain, throat swelling, difficulty swallowing, mouth swelling, ear pain, eye pain, visual changes CARDIOVASCULAR: Absent: chest pain, syncope, palpitations, irregular heart rate, lightheadedness , peripheral edema RESPIRATORY: Absent: cough, shortness of breath, dyspnea with exertion, orthopnea, wheezing, stridor, hemoptysis GASTROINTESTINAL: Absent: abdominal pain, abdominal distension, nausea, vomiting, diarrhea, constipation, melena, hematochezia GENITOURINARY: Absent: dysuria, frequency, urgency, hesitancy, hematuria, flank pain, genital pain MUSCULOSKELETAL: Absent: myalgia, arthralgia, joint swelling, back pain, neck pain SKIN: Absent: rash, itching, pallor HEMATOLOGIC/IMMUNOLOGIC: Absent: easy bleeding, easy bruising, lymphadenopathy, frequent infections ENDOCRINE: Absent: unexplained weight gain, unexplained weight loss, heat intolerance, cold intolerance NEUROLOGIC: Absent: headache, focal weakness or paresthesias, dizziness, unsteady gait, seizure, mental status changes, bladder or bowel incontinence PSYCHIATRIC: Absent: anxiety, depression, suicidal or homicidal ideation, hallucinations. PHYSICAL EXAMINATION Vital Signs - 24 hr 05/27/19 11:14 Temperature 97.6 F Pulse Rate 82 Respiratory 17 Rate Blood Pressure 91/64 Orthostatic hypotension NEGATIVE GENERAL: AOx3, in no acute distress HEAD: NCAT EYES: RIGHT ruptured pupil from trauma in youth. LEFT pupil reaction to light and accommodation, EOMI, conjunctiva clear, mild icterus. ENT: Ears normal, nares patent, oropharynx clear without exudates. Moist mucous membranes. NECK: Normal range of motion, supple without lymphadenopathy, JVD, or masses. LUNGS: CTAB. RLL crackles. No accessory muscle use. HEART: RRR s1 s2 ABDOMEN: BL inguinal hernia, non reducible. Soft, BS present in all 4 quadrants , non-distended, no JVD, MUSCULOSKELETAL: No bony deformities or tenderness. No CVA tenderness. UPPER EXTREMITIES: 2+ pulses, warm, well-perfused. No cyanosis. No clubbing. No peripheral edema. LOWER EXTREMITIES: 2+ pulses, warm, well-perfused. No calf tenderness. No peripheral edema. NEUROLOGICAL: No focal deficits. Cranial nerves II-XII intact. Normal speech. Gait not appreciated. PSYCHIATRIC: Cooperative. Good eye contact. Appropriate mood and affect. SKIN: Nevi diffusely scattered on body. Gluteal cleft erythematous. Warm, dry, normal turgor, no rashes or lesions noted, normal capillary refill. Laboratory Results - last 24 hr 05/27/19 05/27/19 05/27/19 13:05 13:05 13:05 WBC RBC Hgb Hct MCV MCH MCHC RDW Plt Count MPV Absolute Neuts (auto) Neutrophils % Lymphocytes % Monocytes % Eosinophils % Basophils % Nucleated RBC % PT with INR INR PTT (Actin FS) Sodium 137 Potassium 5.8 H Chloride 107 Carbon Dioxide 23 Anion Gap 7 L BUN 58.4 H Creatinine 1.9 H Est GFR (CKD-EPI)AfAm 38.83 Est GFR (CKD-EPI)NonAf 33.50 POC Glucometer Random Glucose 196 H Calcium 8.9 Total Bilirubin 0.8 AST 100 H ALT 153 H Alkaline Phosphatase 91 Creatine Kinase 26 Troponin I < 0.02 Total Protein 7.2 Albumin 3.2 L Lipase 122 Influenza A (Rapid) Negative Influenza B (Rapid) Negative 05/27/19 05/27/19 05/27/19 13:05 13:05 15:59 WBC 16.0 H RBC 6.06 H Hgb 15.3 Hct 46.7 D MCV 77.1 L MCH 25.2 L MCHC 32.7 RDW 18.9 H Plt Count 153 MPV 8.6 Absolute Neuts (auto) 14.3 H Neutrophils % 88.9 H Lymphocytes % 5.1 L D Monocytes % 5.6 D Eosinophils % 0.2 D Basophils % 0.2 Nucleated RBC % 0 PT with INR 11.90 INR 1.01 PTT (Actin FS) 28.9 Sodium Potassium Chloride Carbon Dioxide Anion Gap BUN Creatinine Est GFR (CKD-EPI)AfAm Est GFR (CKD-EPI)NonAf POC Glucometer 197 Random Glucose Calcium Total Bilirubin AST ALT Alkaline Phosphatase Creatine Kinase Troponin I Total Protein Albumin Lipase Influenza A (Rapid) Influenza B (Rapid) ASSESSMENT/PLAN: 78 y/o male PMH HTN, HLD, insulin treated DM, CAD s/p CABG, HFrEF, ICD, PAD s/p femorla/popliteal bypass, PUD s/p Bilroth II gastrectomy, achalasia s/p Heller myotomy), COPD, gout, CKD 3B, BPH and depression c/o loss of balance at home. # Pre-syncope poss 2/2 failure to thrive - EKG shows NSR, 1o AV block and nonspecific ST-T wave changes. - ECHO. 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 curent home regimen # F/E/N - NS - Cont. to monitor - Regular diet # DVT prophylaxis - Heparin SQ # Disposition - Admit to telemetry - Full code Ricardo Felton MD Visit type - Emergency Visit Emergency Visit: Yes ED Registration Date: 05/27/19 Care time: The patient presented to the Emergency Department on the above date and was hospitalized for further evaluation of their emergent condition. - New Patient This patient is new to me today: Yes Date on this admission: 05/28/19 - Critical Care Critical Care patient: No ATTENDING PHYSICIAN STATEMENT I saw and evaluated the patient. I reviewed the resident's note and discussed the case with the resident. I agree with the resident's findings and plan as documented. SUBJECTIVE: OBJECTIVE: ASSESSMENT AND PLAN:
[2019-05-27 22:28] LABS: CHLORIDE 103 mmol/L (98-107); POTASSIUM 3.9 mmol/L (3.5-5.1); SODIUM 136 mmol/L (136-145)
[2019-05-27 22:29] LABS: ANION GAP 9 MMOL/L (8-16); BLOOD UREA NITROGEN 65.6 mg/dL (7-18); CALCIUM 7.8 mg/dL (8.5-10.1); CO2 24 mmol/L (21-32); CREATININE 2.1 mg/dL (0.55-1.3); GLUCOSE,RANDOM 295 mg/dL (74-106)
[2019-05-27] MEDS: SODIUM CHLORIDE 0.45% 1,000 ML IV SCH (23:55)
[2019-05-28] MEDS ORDERED: MELATONIN 5 MG TABLETS ONE (03:12)
[2019-05-28] MEDS: MELATONIN 5 MG TABLETS PO PRN (03:13)
[2019-05-28] MEDS ORDERED: HEPARIN NA (PORCINE) 5,000 UNITS/ML 1ML VIAL ONE (06:15)
[2019-05-28] MEDS: HEPARIN NA (PORCINE) 5,000 UNITS/ML 1ML VIAL SQ SCH ×3 (06:19→21:35)
[2019-05-28 08:18] LABS: HEMOGLOBIN 11.7 GM/dL (11.7-16.9); MCHC 32.6 g/dl (32.0-35.9); MEAN CELL VOLUME 76.8 fl (80-96); MEAN PLT VOLUME 8.6 fl (7.5-11.1); PLATELET COUNT 126 K/MM3 (134-434); RBC 4.69 M/mm3 (4.00-5.60); RDW 18.7 % (11.9-15.9); WHITE BLOOD COUNT 12.8 K/mm3 (4.0-10.0)
[2019-05-28 08:52] LABS: ALBUMIN 2.6 g/dl (3.4-5.0); BILIRUBIN,TOTAL 0.7 mg/dL (0.2-1); BLOOD UREA NITROGEN 51.3 mg/dL (7-18); CALCIUM 8.3 mg/dL (8.5-10.1); CREATININE 1.7 mg/dL (0.55-1.3); PHOSPHOROUS 2.7 mg/dL (2.5-4.9); POTASSIUM 3.8 mmol/L (3.5-5.1); TOT PROT 5.8 g/dl (6.4-8.2)
[2019-05-28] MEDS ORDERED: PIPERACILLIN/TAZOB 2.25 GM 2.25 GM/50 ML BAG IVPB ONE (09:29)
[2019-05-28] MEDS: PIPERACILLIN/TAZOB 2.25 GM 2.25 GM in DEXTROSE 5%-WATER - 50 ML IVPB SCH ×3 (09:42→21:35)
--- NOTE | 2019-05-28 11:02 | CONSULT ---
Consult - text type - Consultation Consultation Note: Neurology CHIEF COMPLAINT: dizziness PCP: Dr. Guerra HISTORY OF PRESENT ILLNESS: 78 y/o male PMH HTN, HLD, insulin treated DM, CAD s/p CABG, HFrEF, ICD, PAD s/p femorla/popliteal bypass, PUD s/p Bilroth II gastrectomy, achalasia s/p Heller myotomy), COPD, gout, CKD 3B, BPH and depression c/o loss of balance at home. Pt described s/p BM at home he fell dizzy upon standing; room spinning. He denied LOC, head trauma, tongue biting, contractures. There was no aura prior and there was no postictal state. When he felt dizzy he sat down on the toilet and needed family to help assist him to bed. During this event he experienced a single episode of diarrhea; non-bloody, non-mucoid. He said that he vomited x1 NBNB food containing. Pt was recently dc from admission for COPD exacerbation and was on steroid taper (third day of 15 mg). He denied CP, SOB, abdominal pain , and any current diziness. Ct of head completed and demonstrated chronic R frontal encephalomalacia. Carotid ultrasound also performed and showed moderate atherosclerotic plaque without hemodinamically stenosis. Also noted, B/L elevated flow velocities at origin of extracranial carotid arteries C/W stenosis. No focal deficits on exam and reports generalized weakness and appears anxious. Recent Travel: Denies. No sick contacts. No new foods/drugs/herbs/supplements PAST MEDICAL HISTORY: HTN, HLD, insulin treated DM, CAD s/p CABG, HFrEF, ICD, PAD, PAD s/p femorla/popliteal bypass, PUD s/p Bilroth II gastrectomy, achalasia s/p Heller myotomy), COPD, gout, CKD 3B, BPH and depression PAST SURGICAL HISTORY: extensive/as above/ cholecystectomy Family history: mother, blood [place] Social History: Smoking: Former smoker of 3 ppd Alcohol: Denies Drugs: Denies REVIEW OF SYSTEMS CONSTITUTIONAL: Absent: fever, chills, diaphoresis, generalized weakness, malaise, loss of appetite, weight change HEENT: Absent: rhinorrhea, nasal congestion, throat pain, throat swelling, difficulty swallowing, mouth swelling, ear pain, eye pain, visual changes CARDIOVASCULAR: Absent: chest pain, syncope, palpitations, irregular heart rate, lightheadedness , peripheral edema RESPIRATORY: Absent: cough, shortness of breath, dyspnea with exertion, orthopnea, wheezing, stridor, hemoptysis GASTROINTESTINAL: Absent: abdominal pain, abdominal distension, nausea, vomiting, diarrhea, constipation, melena, hematochezia GENITOURINARY: Absent: dysuria, frequency, urgency, hesitancy, hematuria, flank pain, genital pain MUSCULOSKELETAL: Absent: myalgia, arthralgia, joint swelling, back pain, neck pain SKIN: Absent: rash, itching, pallor HEMATOLOGIC/IMMUNOLOGIC: Absent: easy bleeding, easy bruising, lymphadenopathy, frequent infections ENDOCRINE: Absent: unexplained weight gain, unexplained weight loss, heat intolerance, cold intolerance NEUROLOGIC: Absent: headache, focal weakness or paresthesias, dizziness, unsteady gait, seizure, mental status changes, bladder or bowel incontinence PSYCHIATRIC: Absent: anxiety, depression, suicidal or homicidal ideation, hallucinations. Allergies: pregabalin [From Lyrica] Allergy (Severe, Verified 05/27/19 11:27) vertigo/fainted HOME MEDICATIONS: Home Medications Medication Instructions Recorded Carvedilol 3.125 mg PO BID 12/08/18 Escitalopram Oxalate [Lexapro -] 20 mg PO DAILY 12/08/18 Rosuvastatin Calcium [Crestor] 20 mg PO HS 12/08/18 Insulin Glargine,Hum.rec.anlog 58 units SQ HS 01/11/19 [Lantus Solostar PEN -] Tamsulosin HCl 0.4 mg PO DAILY 01/11/19 Albuterol 0.083% Nebulizer Fatuma 1 amp NEB ONCE 04/07/19 [Ventolin 0.083% Nebulizer Soln -] Clopidogrel Bisulfate [Clopidogrel] 75 mg PO DAILY 04/07/19 Droxidopa [Northera] 100 mg PO DAILY 04/07/19 Insulin Lispro [Humalog Ponce 10 - 34 unit SQ TID 04/07/19 Kwikpen] Melatonin 10 mg PO HS 04/07/19 Sacubitril/Valsartan [Entresto 24 1 each PO BID 04/07/19 mg-26 mg Tablet] predniSONE [Deltasone -] 10 mg PO ASDIR #40 tab 05/22/19 Active Medications Heparin Sodium (Porcine) (Heparin -) 5,000 unit SQ TID KADEEM Last Admin: 05/28/19 06:19 Dose: 5,000 unit Sodium Chloride (1/2 Normal Saline) 1,000 mls @ 75 mls/hr IV ASDIR KADEEM Last Admin: 05/27/19 23:55 Dose: 75 mls/hr Piperacillin Sod/Tazobactam (Sod 2.25 gm/ Dextrose) 50 mls @ 100 mls/hr IVPB Q6H-IV KADEEM; Protocol Last Admin: 05/28/19 09:42 Dose: 100 mls/hr Melatonin (Melatonin) 5 mg PO HS PRN PRN Reason: INSOMNIA Last Admin: 05/28/19 03:13 Dose: 5 mg PHYSICAL EXAMINATION Vital Signs Period Temp Pulse Resp BP Sys/Garcia Pulse Ox Last 24 Hr 97.6 F-98.7 F 74-82 17-20 91-139/50-64 96-98 Orthostatic hypotension NEGATIVE GENERAL: AOx3, in no acute distress HEAD: NCAT EYES: RIGHT ruptured pupil from trauma in youth. LEFT pupil reaction to light and accommodation, EOMI, conjunctiva clear, mild icterus. ENT: Ears normal, nares patent, oropharynx clear without exudates. Moist mucous membranes. NECK: Normal range of motion, supple without lymphadenopathy, JVD, or masses. LUNGS: CTAB. RLL crackles. No accessory muscle use. HEART: RRR s1 s2 ABDOMEN: BL inguinal hernia, non reducible. Soft, BS present in all 4 quadrants , non-distended, no JVD, MUSCULOSKELETAL: No bony deformities or tenderness. No CVA tenderness. UPPER EXTREMITIES: 2+ pulses, warm, well-perfused. No cyanosis. No clubbing. No peripheral edema. LOWER EXTREMITIES: 2+ pulses, warm, well-perfused. No calf tenderness. No peripheral edema. NEUROLOGICAL: No focal deficits. Cranial nerves II-XII intact. Normal speech. Gait not appreciated. PSYCHIATRIC: Cooperative. Good eye contact. Appropriate mood and affect. SKIN: Nevi diffusely scattered on body. Gluteal cleft erythematous. Warm, dry, normal turgor, no rashes or lesions noted, normal capillary refill. CBCD WBC 12.8 K/mm3 (4.0-10.0) H 05/28/19 07:05 RBC 4.69 M/mm3 (4.00-5.60) 05/28/19 07:05 Hgb 11.7 GM/dL (11.7-16.9) 05/28/19 07:05 Hct 36.0 % (35.4-49) D 05/28/19 07:05 MCV 76.8 fl (80-96) L 05/28/19 07:05 MCHC 32.6 g/dl (32.0-35.9) 05/28/19 07:05 RDW 18.7 % (11.9-15.9) H 05/28/19 07:05 Plt Count 126 K/MM3 (134-434) L 05/28/19 07:05 MPV 8.6 fl (7.5-11.1) 05/28/19 07:05 CMP Sodium 138 mmol/L (136-145) 05/28/19 07:05 Potassium 3.8 mmol/L (3.5-5.1) 05/28/19 07:05 Chloride 106 mmol/L (98-107) 05/28/19 07:05 Carbon Dioxide 22 mmol/L (21-32) 05/28/19 07:05 Anion Gap 10 MMOL/L (8-16) 05/28/19 07:05 BUN 51.3 mg/dL (7-18) H 05/28/19 07:05 Creatinine 1.7 mg/dL (0.55-1.3) H 05/28/19 07:05 Random Glucose 165 mg/dL (74-106) H 05/28/19 07:05 Calcium 8.3 mg/dL (8.5-10.1) L 05/28/19 07:05 Total Bilirubin 0.7 mg/dL (0.2-1) 05/28/19 07:05 AST 22 U/L (15-37) 05/28/19 07:05 ALT 94 U/L (13-61) H 05/28/19 07:05 Alkaline Phosphatase 79 U/L (45-117) 05/28/19 07:05 Total Protein 5.8 g/dl (6.4-8.2) L 05/28/19 07:05 Albumin 2.6 g/dl (3.4-5.0) L 05/28/19 07:05 CARDIAC ENZYMES Creatine Kinase 26 U/L (26-308) 05/27/19 13:05 Troponin I < 0.02 ng/ml (0.00-0.05) 05/27/19 21:35 ASSESSMENT/PLAN: 78 y/o male PMH HTN, HLD, insulin treated DM, CAD s/p CABG, HFrEF, ICD, PAD s/p femorla/popliteal bypass, PUD s/p Bilroth II gastrectomy, achalasia s/p Heller myotomy), COPD, gout, CKD 3B, BPH and depression c/o loss of balance at home. Pt described s/p BM at home he fell dizzy upon standing; room spinning. He denied LOC, head trauma, tongue biting, contractures. There was no aura prior and there was no postictal state. When he felt dizzy he sat down on the toilet and needed family to help assist him to bed. During this event he experienced a single episode of diarrhea; non-bloody, non-mucoid. He said that he vomited x1 NBNB food containing. Pt was recently dc from admission for COPD exacerbation and was on steroid taper (third day of 15 mg). He denied CP, SOB, abdominal pain , and any current diziness. Ct of head completed and no acute changes, past R frontal encephalomalacia noted. Carotid ultrasound also performed and showed moderate atherosclerotic plaque without hemodinamically stenosis. Also noted, B/ L elevated flow velocities at origin of extracranial carotid arteries C/W stenosis. No focal deficits on exam and reports generalized weakness and appears anxious. Continue medical optimization, maintain adequate hydration, cardiac follow up. Monitor lytes, replinish K as needed. Monitor BP, maintain normotensive range.
--- NOTE | 2019-05-28 11:37 | PN ---
Progress Note (short form) - Note Progress Note: Patient is a 78 yom with PMHx HTN, HLD, insulin treated DM, CAD s/p CABG, HFrEF, ICD, PAD s/p femorla/popliteal bypass, PUD s/p Bilroth II gastrectomy, achalasia s/p Heller myotomy), COPD, gout, CKD 3B, BPH and depression c/o loss of balance at home. [place] dizzy post BM. Vital Signs Temperature 98.3 F 05/28/19 09:53 Pulse Rate 78 05/28/19 09:53 Respiratory Rate 18 05/28/19 09:53 Blood Pressure 139/56 L 05/28/19 09:53 O2 Sat by Pulse Oximetry (%) 98 05/28/19 09:53 GENERAL: The patient is awake, alert, and fully oriented, in no acute distress. HEAD: Normal with no signs of trauma. EYES: PERRL, extraocular movements intact, sclera anicteric, conjunctiva clear. ENT: Ears normal, oropharynx clear without exudates, moist mucous membranes. NECK: Trachea midline, full range of motion, supple. LUNGS: Breath sounds equal, clear to auscultation bilaterally, no wheezes, no crackles, no accessory muscle use. HEART: RRR, PABLO 2/6 , S1, S2 without murmur, rub or gallop. ABDOMEN: Soft, NT,ND, normoactive bowel sounds, no guarding, no rebound, no hepatosplenomegaly, no masses. EXTREMITIES: 2+ pulses, warm, well-perfused, no edema. NEUROLOGICAL: Cranial nerves II through XII grossly intact. Normal speech, gait not observed. PSYCH: Normal mood, normal affect. SKIN: Warm, dry, normal turgor, no rashes or lesions noted CBCD WBC 12.8 K/mm3 (4.0-10.0) H 05/28/19 07:05 RBC 4.69 M/mm3 (4.00-5.60) 05/28/19 07:05 Hgb 11.7 GM/dL (11.7-16.9) 05/28/19 07:05 Hct 36.0 % (35.4-49) D 05/28/19 07:05 MCV 76.8 fl (80-96) L 05/28/19 07:05 MCHC 32.6 g/dl (32.0-35.9) 05/28/19 07:05 RDW 18.7 % (11.9-15.9) H 05/28/19 07:05 Plt Count 126 K/MM3 (134-434) L 05/28/19 07:05 MPV 8.6 fl (7.5-11.1) 05/28/19 07:05 CMP Sodium 138 mmol/L (136-145) 05/28/19 07:05 Potassium 3.8 mmol/L (3.5-5.1) 05/28/19 07:05 Chloride 106 mmol/L (98-107) 05/28/19 07:05 Carbon Dioxide 22 mmol/L (21-32) 05/28/19 07:05 Anion Gap 10 MMOL/L (8-16) 05/28/19 07:05 BUN 51.3 mg/dL (7-18) H 05/28/19 07:05 Creatinine 1.7 mg/dL (0.55-1.3) H 05/28/19 07:05 Random Glucose 165 mg/dL (74-106) H 05/28/19 07:05 Calcium 8.3 mg/dL (8.5-10.1) L 05/28/19 07:05 Total Bilirubin 0.7 mg/dL (0.2-1) 05/28/19 07:05 AST 22 U/L (15-37) 05/28/19 07:05 ALT 94 U/L (13-61) H 05/28/19 07:05 Alkaline Phosphatase 79 U/L (45-117) 05/28/19 07:05 Total Protein 5.8 g/dl (6.4-8.2) L 05/28/19 07:05 Albumin 2.6 g/dl (3.4-5.0) L 05/28/19 07:05 CARDIAC ENZYMES Creatine Kinase 26 U/L (26-308) 05/27/19 13:05 Troponin I < 0.02 ng/ml (0.00-0.05) 05/27/19 21:35 Current Medications Generic Name Dose Route Start Last Admin Trade Name Freq PRN Reason Stop Dose Admin Heparin Sodium (Porcine) 5,000 unit 05/28/19 06:00 05/28/19 06:19 Heparin - SQ 5,000 unit TID KADEEM Administration Sodium Chloride 1,000 mls @ 75 mls/hr 05/27/19 19:00 05/27/19 23:55 1/2 Normal Saline IV 75 mls/hr ASDIR KADEEM Administration Piperacillin Sod/Tazobactam 50 mls @ 100 mls/hr 05/28/19 09:00 05/28/19 09:42 Sod 2.25 gm/ Dextrose IVPB 100 mls/hr Q6H-IV KADEEM Administration Protocol Melatonin 5 mg 05/28/19 03:05 05/28/19 03:13 Melatonin PO 5 mg HS PRN Administration INSOMNIA Home Medications Medication Instructions Recorded Carvedilol 3.125 mg PO BID 12/08/18 Escitalopram Oxalate [Lexapro -] 20 mg PO DAILY 12/08/18 Rosuvastatin Calcium [Crestor] 20 mg PO HS 12/08/18 Insulin Glargine,Hum.rec.anlog 58 units SQ HS 01/11/19 [Lantus Solostar PEN -] Tamsulosin HCl 0.4 mg PO DAILY 01/11/19 Albuterol 0.083% Nebulizer Fatuma 1 amp NEB ONCE 04/07/19 [Ventolin 0.083% Nebulizer Soln -] Clopidogrel Bisulfate [Clopidogrel] 75 mg PO DAILY 04/07/19 Droxidopa [Northera] 100 mg PO DAILY 04/07/19 Insulin Lispro [Humalog Ponce 10 - 34 unit SQ TID 04/07/19 Kwikpen] Melatonin 10 mg PO HS 04/07/19 Sacubitril/Valsartan [Entresto 24 1 each PO BID 04/07/19 mg-26 mg Tablet] predniSONE [Deltasone -] 10 mg PO ASDIR #40 tab 05/22/19 EKG shows NSR, 1o AV block and nonspecific ST-T wave changes. ECHO. Last echo EF 25-30% US: negative duplex of carotid: negative CT of the chest: Patchy infiltrate within both bases and right middle lobe. New nodule RUL which could be mucus plugging. follow up resolution imaging Cardiac cabg, pacing wires. patchy infiltrates within the right base, left base, and RML. 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 Hiatal hernia with oral contrast within the distal esophagus and stomach spondylotic changes of the spine, no aggressive lesions noted Assessment and plan: Patient is a 78yom with PMHx of HTN, HLD, insulin treated DM, CAD s/p CABG, HFrEF, ICD, PAD s/p femorla/popliteal bypass, PUD s/p Bilroth II gastrectomy, achalasia s/p Heller myotomy), COPD, gout, CKD 3B, BPH and depression c/o loss of balance at home. # Pre-syncope most likely vasovagal with a hx of orthostatic HTN , neuro Consult appreciated # RML infiltrate continue zosyn renally dosed # APRYL on CKD ,cr 1.7 ; Renal US, Consult nephrology, will hold Entresto for now # acute Transaminitis: most likely due to liver congestion with possible acute over systolic CHF with EJF of 25-30%, AST/ALT 100/153, RUQ US #T2DM: Hold home regimen, ISS ACHS # HTN: on coreg, continue # HLD: Cont. curent home regimen DVT prophylaxis: Heparin SQ Full code Visit type - Emergency Visit Emergency Visit: Yes ED Registration Date: 05/27/19 Care time: The patient presented to the Emergency Department on the above date and was hospitalized for further evaluation of their emergent condition. - New Patient This patient is new to me today: Yes Date on this admission: 05/28/19 - Critical Care Critical Care patient: No - Discharge Referral Referred to [facility] Med P.C.: No
--- NOTE | 2019-05-28 13:15 | EKG ---
Test Reason : Blood Pressure : / mmHG Vent. Rate : 062 BPM Atrial Rate : 064 BPM P-R Int : 230 ms QRS Dur : 120 ms QT Int : 452 ms P-R-T Axes : 115 -23 103 degrees QTc Int : 458 ms POOR DATA QUALITY, INTERPRETATION MAY BE ADVERSELY AFFECTED SINUS RHYTHM WITH 1ST DEGREE A-V BLOCK POSSIBLE INFERIOR INFARCT (CITED ON OR BEFORE 18-MAY-2019) ABNORMAL ECG WHEN COMPARED WITH ECG OF 18-MAY-2019 03:38, NONSPECIFIC T WAVE ABNORMALITY NOW EVIDENT IN ANTERIOR LEADS Confirmed by CONOR DELANEY MD ([id number]) on 05/28/2019 1:15:35 PM Referred By: Confirmed By:CONOR DELANEY MD
[2019-05-28] MEDS ORDERED: PIPERACILLIN/TAZOBACTAM 2.25 GM VIAL IVPB ONE ×2 (15:39→21:03)
[2019-05-28] MEDS ORDERED: DEXTROSE 5%-WATER - 50 ML IVPB ONE ×2 (15:40→21:03)
--- NOTE | 2019-05-28 16:57 | PN ---
Progress Note (short form) - Note Progress Note: 1. CKD 2. dehydration 3. PVD 4. HLD 5. CHF 6. atrophic left kidney 7. hyperkalemia Current Medications Heparin Sodium (Porcine) (Heparin -) 5,000 unit SQ TID KADEEM Last Admin: 05/28/19 15:07 Dose: 5,000 unit Sodium Chloride (1/2 Normal Saline) 1,000 mls @ 75 mls/hr IV ASDIR KADEEM Last Admin: 05/27/19 23:55 Dose: 75 mls/hr Piperacillin Sod/Tazobactam (Sod 2.25 gm/ Dextrose) 50 mls @ 100 mls/hr IVPB Q6H-IV KADEEM; Protocol Last Admin: 05/28/19 16:02 Dose: 100 mls/hr Melatonin (Melatonin) 5 mg PO HS PRN PRN Reason: INSOMNIA Last Admin: 05/28/19 03:13 Dose: 5 mg Last Vital Signs Temp Pulse Resp BP Pulse Ox 97.9 F 79 16 148/59 L 99 05/28/19 15:35 05/28/19 15:35 05/28/19 15:35 05/28/19 15:35 05/28/19 15:35 CBC, BMP 05/28/19 07:05 05/28/19 07:05 Plan - potassium treated medically in er - will also give a dose of lokelma - pt received a liter of saline - will start 1/2 ns, should help increase renal tubular flow - repeat labs in am
[2019-05-28] MEDS: INSULIN SLIDING SCALE (NOVOLOG) 1 VIAL SQ SCH ×2 (18:22→21:36)
[2019-05-28] MEDS ORDERED: ALBUTEROL SO4 0.083% IH SOL 2.5 MG/3 ML VIAL.NEB. NEB SCH (19:15)
[2019-05-28] MEDS ORDERED: predniSONE 10 MG TABLET (UD) PO SCH (19:15)
[2019-05-28] MEDS: SODIUM CHLORIDE 0.45% 1,000 ML IV SCH (21:33)
[2019-05-28] MEDS: CARVEDILOL 3.125 MG TABLET (FP) PO SCH (21:35)
[2019-05-28] MEDS: CLOPIDOGREL BISULFATE 75 MG TABLET (FP) PO SCH (21:35)
[2019-05-28] MEDS: predniSONE 10 MG TABLET (UD) PO SCH (22:27)
[2019-05-29] MEDS ORDERED: PIPERACILLIN/TAZOBACTAM 2.25 GM VIAL IVPB ONE ×2 (02:51→09:11)
[2019-05-29] MEDS ORDERED: DEXTROSE 5%-WATER - 50 ML IVPB ONE ×3 (02:52→17:39)
[2019-05-29] MEDS: PIPERACILLIN/TAZOB 2.25 GM 2.25 GM in DEXTROSE 5%-WATER - 50 ML IVPB SCH ×2 (03:14→09:48)
[2019-05-29] MEDS: SODIUM CHLORIDE 0.45% 1,000 ML IV SCH ×2 (05:49→21:11)
[2019-05-29] MEDS: HEPARIN NA (PORCINE) 5,000 UNITS/ML 1ML VIAL SQ SCH ×3 (05:49→21:10)
[2019-05-29] MEDS: INSULIN SLIDING SCALE (NOVOLOG) 1 VIAL SQ SCH ×5 (06:51→22:39)
[2019-05-29] MEDS: TAMSULOSIN HCL 0.4 MG CAP PO SCH (08:47)
[2019-05-29] MEDS ORDERED: ESCITALOPRAM OXALATE 10 MG TABLET ONE (09:11)
[2019-05-29] MEDS: predniSONE 10 MG TABLET (UD) PO SCH ×2 (09:47→21:10)
[2019-05-29] MEDS: CARVEDILOL 3.125 MG TABLET (FP) PO SCH ×2 (09:47→21:10)
[2019-05-29] MEDS: ESCITALOPRAM OXALATE 20 MG TABLET PO SCH (09:47)
[2019-05-29] MEDS: CLOPIDOGREL BISULFATE 75 MG TABLET (FP) PO SCH (09:47)
--- NOTE | 2019-05-29 09:56 | PN ---
Progress Note (short form) - Note Progress Note: Neurology CHIEF COMPLAINT: dizziness PCP: Dr. Guerra HISTORY OF PRESENT ILLNESS: 78 y/o male PMH HTN, HLD, insulin treated DM, CAD s/p CABG, HFrEF, ICD, PAD s/p femorla/popliteal bypass, PUD s/p Bilroth II gastrectomy, achalasia s/p Heller myotomy), COPD, gout, CKD 3B, BPH and depression c/o loss of balance at home. Pt described s/p BM at home he fell dizzy upon standing; room spinning. He denied LOC, head trauma, tongue biting, contractures. There was no aura prior and there was no postictal state. When he felt dizzy he sat down on the toilet and needed family to help assist him to bed. During this event he experienced a single episode of diarrhea; non-bloody, non-mucoid. He said that he vomited x1 NBNB food containing. Pt was recently dc from admission for COPD exacerbation and was on steroid taper (third day of 15 mg). He denied CP, SOB, abdominal pain , and any current diziness. Ct of head completed and demonstrated chronic R frontal encephalomalacia. Carotid ultrasound also performed and showed moderate atherosclerotic plaque without hemodinamically stenosis. Also noted, B/L elevated flow velocities at origin of extracranial carotid arteries C/W stenosis. No focal deficits on exam and reports generalized weakness, sleepy during my evaluation. Discussed results with him and no focal deficits noted. Remains on antibiotics, Zosyn for infection, and can be continued. Active Medications Albuterol Sulfate (Ventolin 0.083% Nebulizer Soln -) 1 amp NEB ONCE [facility] Last Admin: 05/28/19 20:13 Dose: 1 amp Carvedilol (Coreg -) 3.125 mg PO BID [facility] Last Admin: 05/29/19 09:47 Dose: 3.125 mg Clopidogrel Bisulfate (Plavix -) 75 mg PO DAILY [facility] Last Admin: 05/29/19 09:47 Dose: 75 mg Escitalopram Oxalate (Lexapro -) 20 mg PO DAILY [facility] Last Admin: 05/29/19 09:47 Dose: 20 mg Heparin Sodium (Porcine) (Heparin -) 5,000 unit SQ TID [facility] Last Admin: 05/29/19 05:49 Dose: 5,000 unit Sodium Chloride (1/2 Normal Saline) 1,000 mls @ 75 mls/hr IV ASDIR [facility] Last Admin: 05/29/19 05:49 Dose: 75 mls/hr Piperacillin Sod/Tazobactam (Sod 2.25 gm/ Dextrose) 50 mls @ 100 mls/hr IVPB Q6H-IV [facility]; Protocol Last Admin: 05/29/19 09:48 Dose: 100 mls/hr Insulin Aspart (Novolog Vial Sliding Scale -) 1 vial SQ ACHS [facility]; Protocol Last Admin: 05/29/19 06:51 Dose: 4 units Melatonin (Melatonin) 5 mg PO HS PRN PRN Reason: INSOMNIA Last Admin: 05/28/19 03:13 Dose: 5 mg Non-Formulary Medication (Droxidopa [Northera]) 100 mg PO DAILY [facility] Prednisone (Deltasone -) 20 mg PO BID [facility] Stop: 05/31/19 10:01 Last Admin: 05/29/19 09:47 Dose: 20 mg Prednisone (Deltasone -) 15 mg PO BID [facility] Stop: 06/03/19 10:01 Prednisone (Deltasone -) 10 mg PO BID [facility] Stop: 06/06/19 10:01 Prednisone (Deltasone -) 10 mg PO DAILY [facility] Stop: 06/09/19 10:01 Tamsulosin HCl (Flomax -) 0.4 mg PO DAILY@0830 [facility] Last Admin: 05/29/19 08:47 Dose: 0.4 mg PHYSICAL EXAMINATION Vital Signs Period Temp Pulse Resp BP Sys/Garcia Pulse Ox Last 24 Hr 97.6 F-99.0 F 61-90 16-20 124-148/52-67 96-99 Orthostatic hypotension NEGATIVE GENERAL: AOx3, in no acute distress HEAD: NCAT EYES: RIGHT ruptured pupil from trauma in youth. LEFT pupil reaction to light and accommodation, EOMI, conjunctiva clear, mild icterus. ENT: Ears normal, nares patent, oropharynx clear without exudates. Moist mucous membranes. NECK: Normal range of motion, supple without lymphadenopathy, JVD, or masses. LUNGS: CTAB. RLL crackles. No accessory muscle use. HEART: RRR s1 s2 ABDOMEN: BL inguinal hernia, non reducible. Soft, BS present in all 4 quadrants , non-distended, no JVD, MUSCULOSKELETAL: No bony deformities or tenderness. No CVA tenderness. UPPER EXTREMITIES: 2+ pulses, warm, well-perfused. No cyanosis. No clubbing. No peripheral edema. LOWER EXTREMITIES: 2+ pulses, warm, well-perfused. No calf tenderness. No peripheral edema. NEUROLOGICAL: No focal deficits. Cranial nerves II-XII intact. Normal speech. Gait not appreciated. PSYCHIATRIC: Cooperative. Good eye contact. Appropriate mood and affect. SKIN: Nevi diffusely scattered on body. Gluteal cleft erythematous. Warm, dry, normal turgor, no rashes or lesions noted, normal capillary refill. CBCD WBC 12.8 K/mm3 (4.0-10.0) H 05/28/19 07:05 RBC 4.69 M/mm3 (4.00-5.60) 05/28/19 07:05 Hgb 11.7 GM/dL (11.7-16.9) 05/28/19 07:05 Hct 36.0 % (35.4-49) D 05/28/19 07:05 MCV 76.8 fl (80-96) L 05/28/19 07:05 MCHC 32.6 g/dl (32.0-35.9) 05/28/19 07:05 RDW 18.7 % (11.9-15.9) H 05/28/19 07:05 Plt Count 126 K/MM3 (134-434) L 05/28/19 07:05 MPV 8.6 fl (7.5-11.1) 05/28/19 07:05 CMP Sodium 138 mmol/L (136-145) 05/28/19 07:05 Potassium 3.8 mmol/L (3.5-5.1) 05/28/19 07:05 Chloride 106 mmol/L (98-107) 05/28/19 07:05 Carbon Dioxide 22 mmol/L (21-32) 05/28/19 07:05 Anion Gap 10 MMOL/L (8-16) 05/28/19 07:05 BUN 51.3 mg/dL (7-18) H 05/28/19 07:05 Creatinine 1.7 mg/dL (0.55-1.3) H 05/28/19 07:05 Random Glucose 165 mg/dL (74-106) H 05/28/19 07:05 Calcium 8.3 mg/dL (8.5-10.1) L 05/28/19 07:05 Total Bilirubin 0.7 mg/dL (0.2-1) 05/28/19 07:05 AST 22 U/L (15-37) 05/28/19 07:05 ALT 94 U/L (13-61) H 05/28/19 07:05 Alkaline Phosphatase 79 U/L (45-117) 05/28/19 07:05 Total Protein 5.8 g/dl (6.4-8.2) L 05/28/19 07:05 Albumin 2.6 g/dl (3.4-5.0) L 05/28/19 07:05 CARDIAC ENZYMES Creatine Kinase 26 U/L (26-308) 05/27/19 13:05 Troponin I < 0.02 ng/ml (0.00-0.05) 05/27/19 21:35 ASSESSMENT/PLAN: 78 y/o male PMH HTN, HLD, insulin treated DM, CAD s/p CABG, HFrEF, ICD, PAD s/p femorla/popliteal bypass, PUD s/p Bilroth II gastrectomy, achalasia s/p Heller myotomy), COPD, gout, CKD 3B, BPH and depression c/o loss of balance at home. Pt described s/p BM at home he fell dizzy upon standing; room spinning. He denied LOC, head trauma, tongue biting, contractures. There was no aura prior and there was no postictal state. When he felt dizzy he sat down on the toilet and needed family to help assist him to bed. During this event he experienced a single episode of diarrhea; non-bloody, non-mucoid. He said that he vomited x1 NBNB food containing. Pt was recently dc from admission for COPD exacerbation and was on steroid taper (third day of 15 mg). He denied CP, SOB, abdominal pain , and any current diziness. Ct of head completed and no acute changes, past R frontal encephalomalacia noted. Carotid ultrasound also performed and showed moderate atherosclerotic plaque without hemodinamically stenosis. Also noted, B/ L elevated flow velocities at origin of extracranial carotid arteries C/W stenosis. No focal deficits on exam and reports generalized weakness, sleepy during my evaluation. Discussed results with him and no focal deficits noted. Remains on antibiotics, Zosyn for infection, and can be continued. Continue medical optimization, maintain adequate hydration, cardiac follow up. Monitor lytes, replinish K as needed. Monitor BP, maintain normotensive range. Frequent reorientation, expect improvement in mental status is underlying etiologies are treated.
[2019-05-29] MEDS ORDERED: DROXIDOPA 100 MG PO SCH (10:00)
--- NOTE | 2019-05-29 10:23 | PN ---
Teaching Attending Note Name of Resident: Ricardo Alexander ATTENDING PHYSICIAN STATEMENT I saw and evaluated the patient. I reviewed the resident's note and discussed the case with the resident. I agree with the resident's findings and plan as documented. SUBJECTIVE: Patient is comfortable with no acute distress. no fever or chills. Vital Signs Temperature 97.7 F 05/29/19 08:55 Pulse Rate 61 05/29/19 08:55 Respiratory Rate 20 05/29/19 08:55 Blood Pressure 142/52 L 05/29/19 08:55 O2 Sat by Pulse Oximetry (%) 96 05/28/19 20:51 GENERAL: The patient is awake, alert, and fully oriented, in no acute distress. HEAD: Normal with no signs of trauma. EYES: PERRL, extraocular movements intact, sclera anicteric, conjunctiva clear. ENT: Ears normal, oropharynx clear without exudates, moist mucous membranes. NECK: Trachea midline, full range of motion, supple. LUNGS: Breath sounds equal, clear to auscultation bilaterally, no wheezes, no crackles, no accessory muscle use. HEART: RRR, PABLO 2/6 , S1, S2 without murmur, rub or gallop. ABDOMEN: Soft, NT,ND, normoactive bowel sounds, no guarding, no rebound, no hepatosplenomegaly, no masses. EXTREMITIES: 2+ pulses, warm, well-perfused, no edema. NEUROLOGICAL: Cranial nerves II through XII grossly intact. Normal speech, gait not observed. PSYCH: Normal mood, normal affect. SKIN: Warm, dry, normal turgor, no rashes or lesions noted CBCD WBC 12.8 K/mm3 (4.0-10.0) H 05/28/19 07:05 RBC 4.69 M/mm3 (4.00-5.60) 05/28/19 07:05 Hgb 11.7 GM/dL (11.7-16.9) 05/28/19 07:05 Hct 36.0 % (35.4-49) D 05/28/19 07:05 MCV 76.8 fl (80-96) L 05/28/19 07:05 MCHC 32.6 g/dl (32.0-35.9) 05/28/19 07:05 RDW 18.7 % (11.9-15.9) H 05/28/19 07:05 Plt Count 126 K/MM3 (134-434) L 05/28/19 07:05 MPV 8.6 fl (7.5-11.1) 05/28/19 07:05 CMP Sodium 138 mmol/L (136-145) 05/28/19 07:05 Potassium 3.8 mmol/L (3.5-5.1) 05/28/19 07:05 Chloride 106 mmol/L (98-107) 05/28/19 07:05 Carbon Dioxide 22 mmol/L (21-32) 05/28/19 07:05 Anion Gap 10 MMOL/L (8-16) 05/28/19 07:05 BUN 51.3 mg/dL (7-18) H 05/28/19 07:05 Creatinine 1.7 mg/dL (0.55-1.3) H 05/28/19 07:05 Random Glucose 165 mg/dL (74-106) H 05/28/19 07:05 Calcium 8.3 mg/dL (8.5-10.1) L 05/28/19 07:05 Total Bilirubin 0.7 mg/dL (0.2-1) 05/28/19 07:05 AST 22 U/L (15-37) 05/28/19 07:05 ALT 94 U/L (13-61) H 05/28/19 07:05 Alkaline Phosphatase 79 U/L (45-117) 05/28/19 07:05 Total Protein 5.8 g/dl (6.4-8.2) L 05/28/19 07:05 Albumin 2.6 g/dl (3.4-5.0) L 05/28/19 07:05 CARDIAC ENZYMES Creatine Kinase 26 U/L (26-308) 05/27/19 13:05 Troponin I < 0.02 ng/ml (0.00-0.05) 05/27/19 21:35 Home Medications Medication Instructions Recorded Carvedilol 3.125 mg PO BID 12/08/18 Escitalopram Oxalate [Lexapro -] 20 mg PO DAILY 12/08/18 Rosuvastatin Calcium [Crestor] 20 mg PO HS 12/08/18 Insulin Glargine,Hum.rec.anlog 58 units SQ HS 01/11/19 [Lantus Solostar PEN -] Tamsulosin HCl 0.4 mg PO DAILY 01/11/19 Albuterol 0.083% Nebulizer Fatuma 1 amp NEB ONCE 04/07/19 [Ventolin 0.083% Nebulizer Soln -] Clopidogrel Bisulfate [Clopidogrel] 75 mg PO DAILY 04/07/19 Droxidopa [Northera] 100 mg PO DAILY 04/07/19 Insulin Lispro [Humalog Ponce 10 - 34 unit SQ TID 04/07/19 Kwikpen] Melatonin 10 mg PO HS 04/07/19 Sacubitril/Valsartan [Entresto 24 1 each PO BID 04/07/19 mg-26 mg Tablet] predniSONE [Deltasone -] 10 mg PO ASDIR #40 tab 05/22/19 Current Medications Generic Name Dose Route Start Last Admin Trade Name Freq PRN Reason Stop Dose Admin Albuterol Sulfate 1 amp 05/28/19 19:15 05/28/19 20:13 Ventolin 0.083% Nebulizer Soln - NEB 1 amp ONCE KADEEM Administration Carvedilol 3.125 mg 05/28/19 22:00 05/29/19 09:47 Coreg - PO 3.125 mg BID KADEEM Administration Clopidogrel Bisulfate 75 mg 05/28/19 19:15 05/29/19 09:47 Plavix - PO 75 mg DAILY KADEEM Administration Escitalopram Oxalate 20 mg 05/29/19 10:00 05/29/19 09:47 Lexapro - PO 20 mg DAILY KADEEM Administration Heparin Sodium (Porcine) 5,000 unit 05/28/19 06:00 05/29/19 05:49 Heparin - SQ 5,000 unit TID KADEEM Administration Sodium Chloride 1,000 mls @ 75 mls/hr 05/27/19 19:00 05/29/19 05:49 1/2 Normal Saline IV 75 mls/hr ASDIR KADEEM Administration Piperacillin Sod/Tazobactam 50 mls @ 100 mls/hr 05/28/19 09:00 05/29/19 09:48 Sod 2.25 gm/ Dextrose IVPB 100 mls/hr Q6H-IV KADEEM Administration Protocol Insulin Aspart 1 vial 05/28/19 22:00 05/29/19 06:51 Novolog Vial Sliding Scale - SQ 4 units ACHS KADEEM Administration Protocol Melatonin 5 mg 05/28/19 03:05 05/28/19 03:13 Melatonin PO 5 mg HS PRN Administration INSOMNIA Non-Formulary Medication 100 mg 05/29/19 10:00 Droxidopa [Northera] PO DAILY [facility] Prednisone 20 mg 05/28/19 22:00 05/29/19 09:47 Deltasone - PO 05/31/19 10:01 20 mg BID KADEEM Administration Prednisone 15 mg 05/31/19 22:00 Deltasone - PO 06/03/19 10:01 BID KADEEM Prednisone 10 mg 06/03/19 22:00 Deltasone - PO 06/06/19 10:01 BID KADEEM Prednisone 10 mg 06/07/19 10:00 Deltasone - PO 06/09/19 10:01 DAILY KADEEM Tamsulosin HCl 0.4 mg 05/29/19 08:30 05/29/19 08:47 Flomax - PO 0.4 mg DAILY@0830 KADEEM Administration EKG shows NSR, 1o AV block and nonspecific ST-T wave changes. ECHO. Last echo EF 25-30% US: negative duplex of carotid: negative CT of the chest: Patchy infiltrate within both bases and right middle lobe. New nodule RUL which could be mucus plugging. follow up resolution imaging Cardiac cabg, pacing wires. patchy infiltrates within the right base, left base, and RML. 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 Hiatal hernia with oral contrast within the distal esophagus and stomach spondylotic changes of the spine, no aggressive lesions noted Assessment and plan: Patient is a 78yom with PMHx of HTN, HLD, insulin treated DM, CAD s/p CABG, HFrEF, ICD, PAD s/p femorla/popliteal bypass, PUD s/p Bilroth II gastrectomy, achalasia s/p Heller myotomy), COPD, gout, CKD 3B, BPH and depression c/o loss of balance at home. # Pre-syncope most likely vasovagal with a hx of orthostatic HTN , neuro Consult appreciated # RML infiltrate continue zosyn renally dosed , continue tapered dose steroid # APRYL on CKD ,cr 1.7 ; Renal US, Consult nephrology, will hold Entresto for now, # acute Transaminitis: most likely due to liver congestion with possible acute over systolic CHF with EJF of 25-30% s/p ICD, AST/ALT 100/153, RUQ US #T2DM: Hold home regimen, ISS ACHS # HTN: on coreg, continue # HLD: Cont. curent home regimen DVT prophylaxis: Heparin SQ Full code
--- NOTE | 2019-05-29 10:43 | PN ---
Physical Exam: SUBJECTIVE: Patient seen and examined NAEON Tele: multiplve PVCs, nonsustained Denies SOB. Complains of weakness, pain with movement of Left ankle OBJECTIVE: Vital Signs Period Temp Pulse Resp BP Sys/Garcia Pulse Ox Last 24 Hr 97.6 F-99.0 F 61-90 16-20 124-148/52-67 96-99 GENERAL: The patient is awake, alert, and fully oriented, in no acute distress. Mild lethargic HEAD: NC/AT, moderate temporal wasting EYES: sclera anicteric, conjunctiva clear. No ptosis. Palpable AICD in the Left Chest ENT: Ears normal, nares patent, oropharynx clear without exudates, dry tongue. NECK: Trachea midline, full range of motion, supple. LUNGS: Breath sounds equal, expiratory wheezes b/l with mild coarse breath sounds, no accessory muscle use. HEART: Regular rate and rhythm, S1, S2 without murmur, rub or gallop. ABDOMEN: Soft, nontender, nondistended, normoactive bowel sounds, no guarding, no rebound. EXTREMITIES: 1+ pulses of b/l DPs, warm, well-perfused, no edema. Left ankle pain w/ passive inversion NEUROLOGICAL: Normal speech, gait not observed. SKIN: Warm, dry, normal turgor, no rashes or lesions noted Laboratory Results - last 24 hr 05/28/19 05/28/19 05/28/19 12:27 17:51 21:34 POC Glucometer 307 379 154 05/29/19 05:48 POC Glucometer 222 Active Medications Generic Name Dose Route Start Last Admin Trade Name Hunterq PRN Reason Stop Dose Admin Albuterol Sulfate 1 amp 05/28/19 19:15 05/28/19 20:13 Ventolin 0.083% Nebulizer Soln - NEB 1 amp ONCE KADEEM Administration Carvedilol 3.125 mg 05/28/19 22:00 05/29/19 09:47 Coreg - PO 3.125 mg BID KADEEM Administration Clopidogrel Bisulfate 75 mg 05/28/19 19:15 05/29/19 09:47 Plavix - PO 75 mg DAILY KADEEM Administration Escitalopram Oxalate 20 mg 05/29/19 10:00 05/29/19 09:47 Lexapro - PO 20 mg DAILY KADEEM Administration Heparin Sodium (Porcine) 5,000 unit 05/28/19 06:00 05/29/19 05:49 Heparin - SQ 5,000 unit TID KADEEM Administration Sodium Chloride 1,000 mls @ 75 mls/hr 05/27/19 19:00 05/29/19 05:49 1/2 Normal Saline IV 75 mls/hr ASDIR KADEEM Administration Piperacillin Sod/Tazobactam 50 mls @ 100 mls/hr 05/28/19 09:00 05/29/19 09:48 Sod 2.25 gm/ Dextrose IVPB 100 mls/hr Q6H-IV KADEEM Administration Protocol Insulin Aspart 1 vial 05/28/19 22:00 05/29/19 06:51 Novolog Vial Sliding Scale - SQ 4 units ACHS KADEEM Administration Protocol Melatonin 5 mg 05/28/19 03:05 05/28/19 03:13 Melatonin PO 5 mg HS PRN Administration INSOMNIA Non-Formulary Medication 100 mg 05/29/19 10:00 Droxidopa [Northera] PO DAILY [facility] Prednisone 20 mg 05/28/19 22:00 05/29/19 09:47 Deltasone - PO 05/31/19 10:01 20 mg BID KADEEM Administration Prednisone 15 mg 05/31/19 22:00 Deltasone - PO 06/03/19 10:01 BID KADEEM Prednisone 10 mg 06/03/19 22:00 Deltasone - PO 06/06/19 10:01 BID [facility] Prednisone 10 mg 06/07/19 10:00 Deltasone - PO 06/09/19 10:01 DAILY [facility] Tamsulosin HCl 0.4 mg 05/29/19 08:30 05/29/19 08:47 Flomax - PO 0.4 mg DAILY@0830 KADEEM Administration ASSESSMENT/PLAN: 78 y/o male PMH HTN, HLD, insulin treated DM, CAD s/p CABG, HFrEF(ischemic cardiomyopathy EF 25-30%), AICD, PAD s/p femoral/popliteal bypass, PUD s/p Bilroth II gastrectomy, achalasia s/p Heller myotomy), COPD, gout, CKD 3B, BPH and depression c/o loss of balance at home. Admitted for syncope w/u and treatment for possible PNA. Initially had hyperK(5.8) and given Aspart 6U + D25g , Albuterol, NS 1L, Lokelma, sodium bicarb x1. Nephro([facility]) onboard for APRYL. Zosyn for PNA. CTH neg for new path. US carotid neg for significant stenosis. Awating echo. Pt ambulates w/ cane/walker at baseline, awaiting PT evalu. L- ankle pain prompted XRay. # Pre-syncope poss 2/2 failure to thrive > Orthostatics NEG despite diarrhea and family reported use of 10 mg Lasix qd > Head CT(05/28/19): old Right frontal lobe infarct, wall thickening of maxillary /ethmoid/sphenoid/frontal sinuses suggestive of sinus disease > EKG shows NSR, 1o AV block and nonspecific ST-T wave changes. > Echo --pending --Last echo EF 25-30%, high metabolic demand > US carotids(05/28/19): neg for significant stenosis > albumin low 3.2 > Flu: Neg - F/u UA --pending collectin - Consult([facility]) neurology: --R frontal encephalomalacia noted --medical optimization, hydration, electrolyte repletion, keep BP normotensive --outpt cardio f/u - consider Cosyntropin test to rule out adrenal hypofunctio - PT # Poss RLL infiltrate/atelectasis --improving SOB > CT chest(05/28/19): patchy infiltrates w/in Right base, Right middle lobe, Left base. 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 curent home regimen # F/E/N - 1/2NS @75 - potassium-restricted diet # DVT prophylaxis - Heparin SQ # Disposition - Admit to telemetry - Full code Visit type - Emergency Visit Emergency Visit: No - New Patient This patient is new to me today: Yes Date on this admission: 05/29/19 - Critical Care Critical Care patient: No ATTENDING PHYSICIAN STATEMENT I saw and evaluated the patient. I reviewed the resident's note and discussed the case with the resident. I agree with the resident's findings and plan as documented. SUBJECTIVE: OBJECTIVE: ASSESSMENT AND PLAN:
[2019-05-29] MEDS ORDERED: ALBUTEROL SO4 0.083% IH SOL 2.5 MG/3 ML VIAL.NEB. NEB PRN (10:59)
--- NOTE | 2019-05-29 12:17 | PN ---
Progress Note (short form) - Note Progress Note: ID CONSULT DICTATED R/O HCAP RLL ? SEPSIS ECONDARY TO PNEUMONIA LEUKOCYTOSIS/ THROMBOCYTOPENIA COPD AZOTEMIA AWAIT C/S EMPIRIC ZOSYN
[2019-05-29 16:13] LABS: EPI CELLS 1.4 /HPF (0-5/HPF); HYALINE CASTS 3 /lpf (0-8); URINE APPEARANCE CLEAR; URINE BACTERIA 81.7 /hpf (NEGATIVE); URINE BILIRUBIN NEGATIVE (NEGATIVE); URINE COLOR YELLOW; URINE GLUCOSE (UA) 2+ (NEGATIVE); URINE KETONE NEGATIVE (NEGATIVE); URINE LEUK ESTERASE TRACE (NEGATIVE); URINE NITRITE NEGATIVE (NEGATIVE); URINE PROTEIN 1+ (NEGATIVE); URINE RBC 5 /hpf (0-4); URINE UROBILINOGEN 0.2 mg/dL (0.2-1.0); URINE WBC 9 /hpf (0-5)
--- NOTE | 2019-05-29 16:52 | CONS ---
DATE OF CONSULTATION: DATE OF DICTATION: 05/29/2019 The patient is a 78-year-old male with a history of COPD and diabetes, who is evaluated for pneumonia. The patient was recently hospitalized earlier this month with complications of COPD and diabetes. He is now re-admitted on May 27, 2019, with complaints of generalized weakness and nausea. He was evaluated in the emergency room, where he was noted to have profound weakness and elevated white blood cell count as well as azotemia. He was empirically treated with Zosyn. CAT scan of the chest shows some patchy infiltrates at the right base. At the present time, he is awake and alert. He complains of generalized weakness. He denies any focal complaint. No complaints of shaking chills, labored breathing, cough, sputum production, vomiting, diarrhea, or dysuria. Past medical history positive for multiple co-morbidities, including diabetes mellitus, hypertension, hyperlipidemia, coronary artery disease, COPD, peripheral vascular disease, peptic ulcer disease. PAST SURGICAL HISTORY: Status post coronary artery bypass graft, coronary artery stent, permanent pacemaker, gastrectomy. ALLERGIES: To PREGABALIN. Medications include albuterol, Coreg, Plavix, melatonin, prednisone, Zosyn. SOCIAL HISTORY: He is a former smoker. He resides in the community. SYSTEMS REVIEW: Neurologic: No loss of consciousness, seizure activity, or focal weakness. Cardiac: Negative chest pain or palpitations. Respiratory: As per HPI. Gastrointestinal: As per HPI. Genitourinary: Negative for urinary tract infection. LABORATORY DATA: White count 16.0, hematocrit 46.7, platelets 153, creatinine 1.7, BUN 57, BUN 0.8, alkaline phosphatase 91, AST 11, ALT 100, ALP 153. Urinalysis pending. Flu swab negative. Cultures pending. PHYSICAL EXAMINATION: General: He is awake and alert, appears weak. Vital Signs: Temperature 97.7. Blood pressure 142/53. Pulse 61, regular. Respirations 20 per minute. Eyes: Sclerae anicteric. Heart Sounds: S1, S2. Lungs: Scattered rhonchi bilaterally. Abdomen: Soft. No tenderness elicited. Extremities: Negative for edema. IMPRESSION: 1. Profound weakness, status post near syncope. 2. Rule out healthcare-acquired right lower lobe pneumonia. 3. Possible sepsis secondary to pneumonia. 4. Leukocytosis/thrombocytopenia. 5. Chronic obstructive pulmonary disease. 6. Elevated liver enzymes. 7. Azotemia. Await sepsis workup. Empiric antibiotic coverage for healthcare-acquired pulmonary pathogens with Zosyn. Further recommendations pending cultures. Will follow. Thank you for the kind referral. MELISSA ESPINOZA M.D. [id number]
[2019-05-29] MEDS ORDERED: PIPERACILLIN/TAZOBACTAM 3.375 GM VIAL IVPB ONE (17:39)
[2019-05-29] MEDS: PIPERACILLIN/TAZOB 3.375 GM 3.375 GM in DEXTROSE 5%-WATER - 50 ML IVPB SCH (17:45)
--- NOTE | 2019-05-29 19:44 | PN ---
Progress Note (short form) - Note Progress Note: 1. CKD 2. dehydration 3. PVD 4. HLD 5. CHF 6. atrophic left kidney 7. hyperkalemia Current Medications Albuterol Sulfate (Ventolin 0.083% Nebulizer Soln -) 1 amp NEB Q6H PRN PRN Reason: SHORTNESS OF BREATH Carvedilol (Coreg -) 3.125 mg PO BID [facility] Last Admin: 05/29/19 09:47 Dose: 3.125 mg Clopidogrel Bisulfate (Plavix -) 75 mg PO DAILY [facility] Last Admin: 05/29/19 09:47 Dose: 75 mg Escitalopram Oxalate (Lexapro -) 20 mg PO DAILY [facility] Last Admin: 05/29/19 09:47 Dose: 20 mg Heparin Sodium (Porcine) (Heparin -) 5,000 unit SQ TID [facility] Last Admin: 05/29/19 14:02 Dose: 5,000 unit Sodium Chloride (1/2 Normal Saline) 1,000 mls @ 75 mls/hr IV ASDIR [facility] Last Admin: 05/29/19 05:49 Dose: 75 mls/hr Piperacillin Sod/Tazobactam (Sod 3.375 gm/ Dextrose) 50 mls @ 100 mls/hr IVPB Q8H-IV [facility]; Protocol Last Admin: 05/29/19 17:45 Dose: 100 mls/hr Insulin Aspart (Novolog Vial Sliding Scale -) 1 vial SQ ACHS [facility]; Protocol Last Admin: 05/29/19 17:45 Dose: 10 units Melatonin (Melatonin) 5 mg PO HS PRN PRN Reason: INSOMNIA Last Admin: 05/28/19 03:13 Dose: 5 mg Non-Formulary Medication (Droxidopa [Northera]) 100 mg PO DAILY [facility] Prednisone (Deltasone -) 20 mg PO BID [facility] Stop: 05/31/19 10:01 Last Admin: 05/29/19 09:47 Dose: 20 mg Prednisone (Deltasone -) 15 mg PO BID [facility] Stop: 06/03/19 10:01 Prednisone (Deltasone -) 10 mg PO BID [facility] Stop: 06/06/19 10:01 Prednisone (Deltasone -) 10 mg PO DAILY [facility] Stop: 06/09/19 10:01 Tamsulosin HCl (Flomax -) 0.4 mg PO DAILY@0830 [facility] Last Admin: 05/29/19 08:47 Dose: 0.4 mg Last Vital Signs Temp Pulse Resp BP Pulse Ox 97.8 F 67 18 139/56 L 96 05/29/19 18:00 05/29/19 18:00 05/29/19 18:00 05/29/19 18:00 05/29/19 09:00 Lungs clear Heart reg Abd soft Ext no edema No labs today CBC, BMP 05/28/19 07:05 05/28/19 07:05 IMP- CKD s/p hyperkalemia Plan will f/u bmp in am
[2019-05-29] MEDS: MELATONIN 5 MG TABLETS PO PRN (22:42)
[2019-05-30] MEDS ORDERED: PIPERACILLIN/TAZOBACTAM 3.375 GM VIAL IVPB ONE ×3 (01:16→16:55)
[2019-05-30] MEDS ORDERED: DEXTROSE 5%-WATER - 50 ML IVPB ONE ×3 (01:17→16:56)
[2019-05-30] MEDS: PIPERACILLIN/TAZOB 3.375 GM 3.375 GM in DEXTROSE 5%-WATER - 50 ML IVPB SCH ×3 (02:00→17:06)
[2019-05-30] MEDS: INSULIN SLIDING SCALE (NOVOLOG) 1 VIAL SQ SCH ×4 (06:52→21:41)
[2019-05-30] MEDS: HEPARIN NA (PORCINE) 5,000 UNITS/ML 1ML VIAL SQ SCH (06:52)
[2019-05-30 07:32] LABS: HEMATOCRIT 32.2 % (35.4-49); HEMOGLOBIN 10.6 GM/dL (11.7-16.9); MCH 25.4 pg (25.7-33.7); MCHC 32.9 g/dl (32.0-35.9); MEAN CELL VOLUME 77.2 fl (80-96); MEAN PLT VOLUME 8.9 fl (7.5-11.1); PLATELET COUNT 96 K/MM3 (134-434); RBC 4.17 M/mm3 (4.00-5.60); RDW 17.9 % (11.9-15.9); WHITE BLOOD COUNT 9.2 K/mm3 (4.0-10.0)
[2019-05-30 07:37] LABS: ALBUMIN 2.2 g/dl (3.4-5.0); BILIRUBIN,TOTAL 0.3 mg/dL (0.2-1); BLOOD UREA NITROGEN 32.2 mg/dL (7-18); CREATININE 1.3 mg/dL (0.55-1.3); MAGNESIUM 2.2 mg/dL (1.8-2.4); PHOSPHOROUS 2.9 mg/dL (2.5-4.9); POTASSIUM 4.2 mmol/L (3.5-5.1); TOT PROT 5.4 g/dl (6.4-8.2)
[2019-05-30] MEDS ORDERED: ESCITALOPRAM OXALATE 10 MG TABLET ONE (08:58)
[2019-05-30] MEDS: SODIUM CHLORIDE 0.45% 1,000 ML IV SCH (09:12)
[2019-05-30] MEDS: CARVEDILOL 3.125 MG TABLET (FP) PO SCH ×2 (09:13→21:40)
[2019-05-30] MEDS: CLOPIDOGREL BISULFATE 75 MG TABLET (FP) PO SCH (09:13)
[2019-05-30] MEDS: TAMSULOSIN HCL 0.4 MG CAP PO SCH (09:13)
[2019-05-30] MEDS: ESCITALOPRAM OXALATE 20 MG TABLET PO SCH (09:14)
[2019-05-30] MEDS: predniSONE 10 MG TABLET (UD) PO SCH ×2 (09:14→21:39)
--- NOTE | 2019-05-30 10:59 | PN ---
Progress Note (short form) - Note Progress Note: Neurology CHIEF COMPLAINT: dizziness PCP: Dr. Guerra HISTORY OF PRESENT ILLNESS: 78 y/o male PMH HTN, HLD, insulin treated DM, CAD s/p CABG, HFrEF, ICD, PAD s/p femorla/popliteal bypass, PUD s/p Bilroth II gastrectomy, achalasia s/p Heller myotomy), COPD, gout, CKD 3B, BPH and depression c/o loss of balance at home. Pt described s/p BM at home he fell dizzy upon standing; room spinning. He denied LOC, head trauma, tongue biting, contractures. There was no aura prior and there was no postictal state. When he felt dizzy he sat down on the toilet and needed family to help assist him to bed. During this event he experienced a single episode of diarrhea; non-bloody, non-mucoid. He said that he vomited x1 NBNB food containing. Pt was recently dc from admission for COPD exacerbation and was on steroid taper (third day of 15 mg). He denied CP, SOB, abdominal pain , and any current diziness. Ct of head completed and demonstrated chronic R frontal encephalomalacia. Carotid ultrasound also performed and showed moderate atherosclerotic plaque without hemodinamically stenosis. Also noted, B/L elevated flow velocities at origin of extracranial carotid arteries C/W stenosis. No focal deficits on exam and reports generalized weakness, sleepy during my evaluation. Discussed results with him and no focal deficits noted. Remains on antibiotics, Zosyn for infection, and can be continued. Echo ordered , awaiting completion. More awake and interactive today, able to have brief conversation. Active Medications Albuterol Sulfate (Ventolin 0.083% Nebulizer Soln -) 1 amp NEB Q6H PRN PRN Reason: SHORTNESS OF BREATH Carvedilol (Coreg -) 3.125 mg PO BID [facility] Last Admin: 05/30/19 09:13 Dose: 3.125 mg Clopidogrel Bisulfate (Plavix -) 75 mg PO DAILY [facility] Last Admin: 05/30/19 09:13 Dose: 75 mg Escitalopram Oxalate (Lexapro -) 20 mg PO DAILY [facility] Last Admin: 05/30/19 09:14 Dose: 20 mg Heparin Sodium (Porcine) (Heparin -) 5,000 unit SQ TID [facility] Last Admin: 05/30/19 06:52 Dose: 5,000 unit Sodium Chloride (1/2 Normal Saline) 1,000 mls @ 75 mls/hr IV ASDIR [facility] Last Admin: 05/30/19 09:12 Dose: 75 mls/hr Piperacillin Sod/Tazobactam (Sod 3.375 gm/ Dextrose) 50 mls @ 100 mls/hr IVPB Q8H-IV [facility]; Protocol Last Admin: 05/30/19 09:13 Dose: 100 mls/hr Insulin Aspart (Novolog Vial Sliding Scale -) 1 vial SQ ACHS [facility]; Protocol Last Admin: 05/30/19 06:52 Dose: 6 units Melatonin (Melatonin) 5 mg PO HS PRN PRN Reason: INSOMNIA Last Admin: 05/29/19 22:42 Dose: 5 mg Non-Formulary Medication (Droxidopa [Northera]) 100 mg PO DAILY [facility] Prednisone (Deltasone -) 20 mg PO BID [facility] Stop: 05/31/19 10:01 Last Admin: 05/30/19 09:14 Dose: 20 mg Prednisone (Deltasone -) 15 mg PO BID [facility] Stop: 06/03/19 10:01 Prednisone (Deltasone -) 10 mg PO BID [facility] Stop: 06/06/19 10:01 Prednisone (Deltasone -) 10 mg PO DAILY [facility] Stop: 06/09/19 10:01 Tamsulosin HCl (Flomax -) 0.4 mg PO DAILY@0830 [facility] Last Admin: 05/30/19 09:13 Dose: 0.4 mg PHYSICAL EXAMINATION Vital Signs Period Temp Pulse Resp BP Sys/Garcia Pulse Ox Last 24 Hr 97.6 F-98.1 F 59-67 18-20 119-166/45-72 95-96 Orthostatic hypotension NEGATIVE GENERAL: AOx3, in no acute distress HEAD: NCAT EYES: RIGHT ruptured pupil from trauma in youth. LEFT pupil reaction to light and accommodation, EOMI, conjunctiva clear, mild icterus. ENT: Ears normal, nares patent, oropharynx clear without exudates. Moist mucous membranes. NECK: Normal range of motion, supple without lymphadenopathy, JVD, or masses. LUNGS: CTAB. RLL crackles. No accessory muscle use. HEART: RRR s1 s2 ABDOMEN: BL inguinal hernia, non reducible. Soft, BS present in all 4 quadrants , non-distended, no JVD, MUSCULOSKELETAL: No bony deformities or tenderness. No CVA tenderness. UPPER EXTREMITIES: 2+ pulses, warm, well-perfused. No cyanosis. No clubbing. No peripheral edema. LOWER EXTREMITIES: 2+ pulses, warm, well-perfused. No calf tenderness. No peripheral edema. NEUROLOGICAL: No focal deficits. Cranial nerves II-XII intact. Normal speech. Gait not appreciated. PSYCHIATRIC: Cooperative. Good eye contact. Appropriate mood and affect. SKIN: Nevi diffusely scattered on body. Gluteal cleft erythematous. Warm, dry, normal turgor, no rashes or lesions noted, normal capillary refill. CBCD WBC 9.2 K/mm3 (4.0-10.0) 05/30/19 05:55 RBC 4.17 M/mm3 (4.00-5.60) 05/30/19 05:55 Hgb 10.6 GM/dL (11.7-16.9) L 05/30/19 05:55 Hct 32.2 % (35.4-49) L 05/30/19 05:55 MCV 77.2 fl (80-96) L 05/30/19 05:55 MCHC 32.9 g/dl (32.0-35.9) 05/30/19 05:55 RDW 17.9 % (11.9-15.9) H 05/30/19 05:55 Plt Count 96 K/MM3 (134-434) L D 05/30/19 05:55 MPV 8.9 fl (7.5-11.1) 05/30/19 05:55 CMP Sodium 137 mmol/L (136-145) 05/30/19 05:55 Potassium 4.2 mmol/L (3.5-5.1) 05/30/19 05:55 Chloride 107 mmol/L (98-107) 05/30/19 05:55 Carbon Dioxide 22 mmol/L (21-32) 05/30/19 05:55 Anion Gap 8 MMOL/L (8-16) 05/30/19 05:55 BUN 32.2 mg/dL (7-18) H 05/30/19 05:55 Creatinine 1.3 mg/dL (0.55-1.3) 05/30/19 05:55 Random Glucose 326 mg/dL (74-106) H 05/30/19 05:55 Calcium 8.0 mg/dL (8.5-10.1) L 05/30/19 05:55 Total Bilirubin 0.3 mg/dL (0.2-1) 05/30/19 05:55 AST 29 U/L (15-37) 05/30/19 05:55 ALT 69 U/L (13-61) H 05/30/19 05:55 Alkaline Phosphatase 73 U/L (45-117) 05/30/19 05:55 Total Protein 5.4 g/dl (6.4-8.2) L 05/30/19 05:55 Albumin 2.2 g/dl (3.4-5.0) L 05/30/19 05:55 CARDIAC ENZYMES Creatine Kinase 26 U/L (26-308) 05/27/19 13:05 Troponin I < 0.02 ng/ml (0.00-0.05) 05/27/19 21:35 ASSESSMENT/PLAN: 78 y/o male PMH HTN, HLD, insulin treated DM, CAD s/p CABG, HFrEF, ICD, PAD s/p femorla/popliteal bypass, PUD s/p Bilroth II gastrectomy, achalasia s/p Heller myotomy), COPD, gout, CKD 3B, BPH and depression c/o loss of balance at home. Pt described s/p BM at home he fell dizzy upon standing; room spinning. He denied LOC, head trauma, tongue biting, contractures. There was no aura prior and there was no postictal state. When he felt dizzy he sat down on the toilet and needed family to help assist him to bed. During this event he experienced a single episode of diarrhea; non-bloody, non-mucoid. He said that he vomited x1 NBNB food containing. Pt was recently dc from admission for COPD exacerbation and was on steroid taper (third day of 15 mg). He denied CP, SOB, abdominal pain , and any current diziness. Ct of head completed and no acute changes, past R frontal encephalomalacia noted. Carotid ultrasound also performed and showed moderate atherosclerotic plaque without hemodinamically stenosis. Also noted, B/ L elevated flow velocities at origin of extracranial carotid arteries C/W stenosis. No focal deficits on exam and reports generalized weakness, sleepy during my evaluation. Discussed results with him and no focal deficits noted. Remains on antibiotics, Zosyn for infection, and can be continued. Continue medical optimization, maintain adequate hydration, cardiac follow up. Monitor lytes, replinish K as needed. Monitor BP, maintain normotensive range. Frequent reorientation, expect improvement in mental status is underlying etiologies are treated. Echo ordered, awaiting completion. More awake and interactive today, able to have brief conversation. Improving mental status.
[2019-05-30] MEDS ORDERED: COLCHICINE 0.6 MG CAP PO SCH (12:00)
[2019-05-30 12:52] VITALS: BMI 23.8
--- NOTE | 2019-05-30 13:07 | CONSULT ---
Admitting History and Physical - Primary Care Physician PCP: Vladimir Navarro - Admission History of Present Illness: 78 y/o male PMH HTN, HLD, insulin treated DM, CAD s/p CABG, HFrEF, ICD, PAD s/p femorla/popliteal bypass, PUD s/p Bilroth II gastrectomy, achalasia s/p Heller myotomy), COPD, gout, CKD 3B, BPH and depression c/o loss of balance at home ID CONSULT DICTATED R/O HCAP RLL ? SEPSIS SECONDARY TO PNEUMONIA LEUKOCYTOSIS/ THROMBOCYTOPENIA COPD AZOTEMIA AWAIT C/S EMPIRIC ZOSYN Selected Entries 05/28/19 05/29/19 05/29/19 18:05 02:00 05:57 Breakfast Lunch Supper 75% Temperature 99.0 F 97.6 F Weight 05/29/19 05/29/19 05/29/19 06:00 08:55 14:00 Breakfast Lunch Supper Temperature 97.7 F 97.6 F Weight 169 lb 3.2 oz 05/29/19 05/29/19 05/29/19 15:00 18:00 20:41 Breakfast 75% Lunch 50% Supper Temperature 97.8 F 98.0 F Weight 05/30/19 05/30/19 02:00 09:22 Breakfast Lunch Supper Temperature 98.1 F 98 F Weight Laboratory Tests 05/27/19 05/28/19 05/30/19 13:05 07:05 05:55 WBC 16.0 H 12.8 H 9.2 Seen last by me 03/2019-- Less expectoration of PO intake - Tolerated Dysphagia Whole (very soft, easy to chew,)Thin Liquids, Ensure Pt and report pt now coughs and then regurgitates after almost every meal. He is non compliant reclining during or soon after meals. Case reviewed with Dr. Saldana who recommended he be followed at a tertiary center to assess motility. Pt had endoscopy here in 08/2018.08/09/18 Brief EGD report No evidence of stricture in the esophagus 4cm hiatal hernia Gastritis, likely bile related, in the gastric remnant Possible fundoplication on retroflexion Post-billroth II anatomy Normal afferent and efferent limbs Advance diet as tolerated, patient should eat smaller, more frequent meals and remain upright for one hour afterwards Await biopsies If abdominal pain, can consider cholestyramine for bile gastritis History Source: Patient, Family Member, Medical Record Limitations to Obtaining History: Clinical Condition - Past Medical History Cardiovascular: Yes: CAD, CHF, HTN, Hyperlipdemia, [place] Pulmonary: Yes: Asthma, Bronchitis, COPD, Pneumonia Gastrointestinal: Yes: Constipation Renal/: Yes: BPH Heme/Onc: Yes: Cancer (Lung) Musculoskeletal: Yes: Chronic low back pain, Osteoarthritis Endocrine: Yes: Diabetes Mellitus - Past Surgical History Past Surgical History: Yes: CABG, Cholecystectomy - Smoking History Smoking history: Former smoker Have you smoked in the past 12 months: No Aproximately how many cigarettes per day: 30 If you are a former smoker, when did you quit?: 1 year ago - Alcohol/Substance Use Hx Alcohol Use: No History of Substance Use: reports: None - Social History ADL: Independent Occupation: retired: worked for [employer] History of Recent Travel: No History - Admission Reason For Visit: ACUTE KIDNEY INJURY RECURRENT FALLS - Diagnostics X-ray: Report Reviewed CT Scan: Report Reviewed - General Mental Status: Alert and Oriented, Awake and Alert, Able to Follow Commands Attention: Intact Ability to Follow Directions: Good Head/Neck Control: Good - Hearing Hearing: Normal Hearing Aide: No Speech Evaluation - Communication Primary Language: [id number] Communication: Yes: Within Normal Limits Oral Expression Ability: Yes: No Impairment - Speech Production Able to Make Needs Known: Yes: WNL Intelligibility: Yes: WNL - Speech Characteristics Voice Loudness: Normal Voice Pitch: Yes: Normal Voice Phonatory-based Quality: Yes: Hoarse, Dysphonia (mild) Speech Pattern: Normal Nasal Resonance: Normal Articulation: Yes: Precise - Language/Auditory Comprehension Follows: Yes: 1 Stage Simple Commands Observation: Comprehends Conversational Speech: Yes - Language/Verbal Expression Able to Respond to Simple Queries: Yes: WNL Able to Communicate Wants and Needs: Yes: WNL Functional Communication Status: Yes: WNL - Swallow Evaluation/Bedside Assessment Current Nutritional Intake: Regular, Thin Liquids Oral Secretions: Yes: WFL (reports phlegm production) Dentition: Yes: Edentulous (lower, dentures broke, reports pt expectorates unchewed food.), Dental Appliance Upper Facial Symmetry at Rest: Symmetrical Facial Symmetry on Retraction: Symmetrical Against Resistance Opening: Normal Against Resistance Closing: Normal Pucker Lips: Normal Smile: Normal Lingual Movement: Normal, Symmetric Lingual Speed of Movement: Normal Lingual Movement Strgth Against Opposition: Normal Lingual Movement Characteristics: Normal Velopharyngeal Movement: Normal Laryngeal Movement: Labored,delay initiation Rate of Intake: WFL Bolus Size: WFL Labial Seal: WFL Chewing: Impaired (lower dentures broke,edentulous lower region, reports pt expectorates unchewed food.) Oral Prep Time: Increased A-P Transit: WFL Pocketing: None Timing of Swallow: Delayed Coughing/Throat Clear: Yes (intermittent) Recommendations - Speech Evaluation, Impression/Plan Impression: Pt tolerated food without vomiting in March 2019. Poor compliance , reclines during and after meals. h/o Achalasia, myotomy, regurtitates after most meals mixed with phlegm. Suspect multifactorial- esophageal dysmotility, pt only wants solid food, no lower dentures, regurgitates/expectorates solid food in phlegm. Advised to go to tertiary center for Motility w/u previously. Observed drinking cup of water/miralax, single sips but rapid overall. Expectorated 1/3 of cup 1 min after intake. Suspect impaired esophageal emptying/possible aspiration, exacerbated by poor behavioral follow through ( reclining) - Dysphagia Impressions/Plan Swallowing Skills: Impaired Dysphagia Impressions: Mild Impairment, Moderate Impairment, Risk of Aspiration *Silent aspiration: cannot be R/O at bedside Dysphagia Treatment Plan: Safe Rate, 1/2 tsp. at a time, OOB for meals, OOB for 1 h. after meals, Other (take in small amount and wait to allow clearance through LES) Recommendations: MBS w Esophagus, Other (May benefit from behavioral techniques eg diaphragmatic breathing but compliance is questionable) - Recommendations Diet Consistency: Dysphagia Whole Liquids: Thin Liquids Supplement: Glucerna
[2019-05-30] MEDS: POLYETHYLENE GLYCOL 3350 119 GM BTL PO SCH ×2 (13:47→21:42)
[2019-05-30] MEDS: CITRIC ACID/SODIUM CITRATE 30 ML UNIT-DOSE CUP PO SCH (13:50)
[2019-05-30] MEDS ORDERED: SODIUM CHLORIDE 0.45% 1,000 ML IV SCH (14:25)
--- NOTE | 2019-05-30 14:25 | PN ---
Progress Note, Physician History of Present Illness: Pt seen and examined at bedside. He is awake and alert. He denies shortness of breath. - Current Medication List Current Medications: Active Medications Albuterol Sulfate (Ventolin 0.083% Nebulizer Soln -) 1 amp NEB Q6H PRN PRN Reason: SHORTNESS OF BREATH Carvedilol (Coreg -) 3.125 mg PO BID [facility] Citric Acid/Sodium Citrate (Bicitra Oral Solution -) 30 ml PO DAILY [facility] Clopidogrel Bisulfate (Plavix -) 75 mg PO DAILY [facility] Last Admin: 05/30/19 09:13 Dose: 75 mg Colchicine (Colcrys) 0.6 mg PO BID@0600,1800 [facility] Stop: 05/31/19 06:01 Colchicine (Colcrys) 0.6 mg PO DAILY [facility] Docusate Sodium (Colace -) 200 mg PO HS [facility] Escitalopram Oxalate (Lexapro -) 20 mg PO DAILY [facility] Last Admin: 05/30/19 09:14 Dose: 20 mg Sodium Chloride (1/2 Normal Saline) 1,000 mls @ 75 mls/hr IV ASDIR [facility] Last Admin: 05/30/19 09:12 Dose: 75 mls/hr Piperacillin Sod/Tazobactam (Sod 3.375 gm/ Dextrose) 50 mls @ 100 mls/hr IVPB Q8H-IV [facility]; Protocol Last Admin: 05/30/19 09:13 Dose: 100 mls/hr Insulin Aspart (Novolog Vial Sliding Scale -) 1 vial SQ ACHS [facility]; Protocol Last Admin: 05/30/19 12:08 Dose: 10 units Melatonin (Melatonin) 5 mg PO HS PRN PRN Reason: INSOMNIA Last Admin: 05/29/19 22:42 Dose: 5 mg Non-Formulary Medication (Droxidopa [Northera]) 100 mg PO DAILY [facility] Polyethylene Glycol (Miralax (For Daily Use) -) 17 gm PO BID [facility] Prednisone (Deltasone -) 20 mg PO BID [facility] Stop: 05/31/19 10:01 Last Admin: 05/30/19 09:14 Dose: 20 mg Prednisone (Deltasone -) 15 mg PO BID [facility] Stop: 06/03/19 10:01 Prednisone (Deltasone -) 10 mg PO BID [facility] Stop: 06/06/19 10:01 Prednisone (Deltasone -) 10 mg PO DAILY [facility] Stop: 06/09/19 10:01 Tamsulosin HCl (Flomax -) 0.4 mg PO DAILY@0830 [facility] Last Admin: 05/30/19 09:13 Dose: 0.4 mg - Objective Vital Signs: Vital Signs Temperature 98 F 05/30/19 09:22 Pulse Rate 66 05/30/19 09:22 Respiratory Rate 20 05/30/19 09:22 Blood Pressure 130/50 L 05/30/19 09:22 O2 Sat by Pulse Oximetry (%) 96 05/30/19 09:00 Constitutional: Yes: Calm Eyes: Yes: Conjunctiva Clear HENT: Yes: Atraumatic Cardiovascular: Yes: S1, S2 Respiratory: Yes: CTA Bilaterally Gastrointestinal: Yes: Soft Genitourinary: Yes: WNL Musculoskeletal: Yes: WNL Edema: No Neurological: Yes: Oriented Psychiatric: Yes: Oriented Labs: CBC, BMP 05/30/19 05:55 05/30/19 05:55 INR, PTT INR 1.01 (0.83-1.09) 05/27/19 13:05 Problem List - Problems (1) Acute kidney injury Code(s): N17.9 - ACUTE KIDNEY FAILURE, UNSPECIFIED (2) Hyperkalemia Code(s): E87.5 - HYPERKALEMIA Assessment/Plan Current Medications Generic Name Dose Route Start Last Admin Trade Name Freq PRN Reason Stop Dose Admin Albuterol Sulfate 1 amp 05/29/19 10:59 Ventolin 0.083% Nebulizer Soln - NEB Q6H PRN SHORTNESS OF BREATH Carvedilol 3.125 mg 05/30/19 11:49 Coreg - PO BID [facility] Citric Acid/Sodium Citrate 30 ml 05/30/19 12:00 Bicitra Oral Solution - PO DAILY [facility] Clopidogrel Bisulfate 75 mg 05/28/19 19:15 05/30/19 09:13 Plavix - PO 75 mg DAILY [facility] Administration Colchicine 0.6 mg 05/30/19 18:00 Colcrys PO 05/31/19 06:01 BID@0600,1800 [facility] Colchicine 0.6 mg 05/31/19 06:00 Colcrys PO DAILY [facility] Docusate Sodium 200 mg 05/30/19 22:00 Colace - PO HS [facility] Escitalopram Oxalate 20 mg 05/29/19 10:00 05/30/19 09:14 Lexapro - PO 20 mg DAILY [facility] Administration Sodium Chloride 1,000 mls @ 75 mls/hr 05/27/19 19:00 05/30/19 09:12 1/2 Normal Saline IV 75 mls/hr ASDIR [facility] Administration Piperacillin Sod/Tazobactam 50 mls @ 100 mls/hr 05/29/19 18:00 05/30/19 09:13 Sod 3.375 gm/ Dextrose IVPB 100 mls/hr Q8H-IV [facility] Administration Protocol Insulin Aspart 1 vial 05/28/19 22:00 05/30/19 12:08 Novolog Vial Sliding Scale - SQ 10 units ACHS [facility] Administration Protocol Melatonin 5 mg 05/28/19 03:05 05/29/19 22:42 Melatonin PO 5 mg HS PRN Administration INSOMNIA Non-Formulary Medication 100 mg 05/29/19 10:00 Droxidopa [Northera] PO DAILY [facility] Polyethylene Glycol 17 gm 05/30/19 12:00 Miralax (For Daily Use) - PO BID [facility] Prednisone 20 mg 05/28/19 22:00 05/30/19 09:14 Deltasone - PO 05/31/19 10:01 20 mg BID [facility] Administration Prednisone 15 mg 05/31/19 22:00 Deltasone - PO 06/03/19 10:01 BID [facility] Prednisone 10 mg 06/03/19 22:00 Deltasone - PO 06/06/19 10:01 BID [facility] Prednisone 10 mg 06/07/19 10:00 Deltasone - PO 06/09/19 10:01 DAILY [facility] Tamsulosin HCl 0.4 mg 05/29/19 08:30 05/30/19 09:13 Flomax - PO 0.4 mg DAILY@0830 [facility] Administration Impression 1. CKD 2. dehydration 3. PVD 4. HLD 5. CHF 6. atrophic left kidney 7. hyperkalemia Plan - renal function improving - decrease fluids - potassium improved - repeat labs in am
--- NOTE | 2019-05-30 14:34 | ECHO ---
Name: LIAM QUINTEROS Exam:Adult Echocardiogram Study Date: 05/30/2019 01:01 PM Age: 78 yrs Height: 71 in Weight: 171 lb BSA: 2.0 m2 MMode/2D Measurements & Calculations IVSd: 1.2 cm Ao root diam: 3.5 cm LVIDd: 4.3 cm LA dimension: 3.5 cm LVIDs: 2.9 cm LVPWd: 1.2 cm LVPWs: 1.4 cm EDV(Teich): 81.8 ml ESV(Teich): 31.3 ml LVOT diam: 2.3 cm LAV (MOD-bp): 65.0 ml RV S Praful: 10.2 cm/sec Doppler Measurements & Calculations MV E max praful: 68.6 cm/sec Ao V2 max: 133.3 cm/sec MV A max praful: 97.7 cm/sec Ao max P.1 mmHg MV E/A: 0.70 MASTER(V,D): 2.5 cm2 MV dec time: 0.18 sec LV V1 max P.7 mmHg TR max praful: 318.3 cm/sec LV V1 max: 82.2 cm/sec TR max P.5 mmHg PA V2 max: 113.5 cm/sec Med Peak E' Praful: 5.4 cm/sec PA max P.2 mmHg Med E/e': 12.8 Lat Peak E' Praful: 7.2 cm/sec Lat E/e': 9.5 Procedure A complete two-dimensional transthoracic echocardiogram was performed (2D, M-mode, Doppler and color flow Doppler). Left Ventricle The left ventricle is normal in size. There is mild concentric left ventricular hypertrophy. Left callum tricular systolic function is normal. Ejection Fraction = 60-65%. Grade I diastolic dysfunction, (abnormal rel axation pattern). Ratio E/E'= 12. No regional wall motion abnormalities noted. Right Ventricle The right ventricle is normal size. There is a pacemaker lead in the right ventricle. The right ventr icular systolic function is normal. Atria The left atrial size is normal. Right atrial size is normal. Mitral Valve There is mild mitral annular calcification. There is mild mitral regurgitation. Tricuspid Valve The tricuspid valve is normal in structure and function. There is moderate tricuspid regurgitation. P ulmonary artery systolic pressure is at least 46 mmHg if RA pressure is assumed 3 mmHg. Aortic Valve There is mild aortic sclerosis.;. No aortic regurgitation is present. Pulmonic Valve The pulmonic valve is not well visualized. Great Vessels The aortic root is normal size. Pericardium/Pleura There is no pericardial effusion. Interpretation Summary The left ventricle is normal in size. There is mild concentric left ventricular hypertrophy. Left ventricular systolic function is normal. No regional wall motion abnormalities noted. Ejection Fraction = 60-65%. Grade I diastolic dysfunction, (abnormal relaxation pattern). Ratio E/E'= 12 There is a pacemaker lead in the right ventricle. The right ventricular systolic function is normal. The left atrial size is normal. Right atrial size is normal. There is mild mitral annular calcification. There is mild mitral regurgitation. There is moderate tricuspid regurgitation. Pulmonary artery systolic pressure is at least 46 mmHg if RA pressure is assumed 3 mmHg There is mild aortic sclerosis. There is no pericardial effusion. Jayy Morales MD 05/30/2019 02:33 PM
[2019-05-30] MEDS: COLCHICINE 0.6 MG CAP PO SCH (17:05)
[2019-05-30] MEDS ORDERED: MELATONIN 5 MG TABLETS PO ONE (17:59)
--- NOTE | 2019-05-30 19:52 | PN ---
Progress Note (short form) - Note Progress Note: Patient is comfortable with no acute distress, no shortness of breath, no nausea or vomiting. no headaches. Vital Signs Temperature 97.3 F L 05/30/19 14:00 Pulse Rate 60 05/30/19 14:00 Respiratory Rate 20 05/30/19 14:00 Blood Pressure 144/54 L 05/30/19 14:00 O2 Sat by Pulse Oximetry (%) 96 05/30/19 09:00 GENERAL: The patient is awake, alert, and fully oriented, in no acute distress. HEAD: Normal with no signs of trauma. EYES: PERRL, extraocular movements intact, sclera anicteric, conjunctiva clear. ENT: Ears normal, oropharynx clear without exudates, moist mucous membranes. NECK: Trachea midline, full range of motion, supple. LUNGS: Breath sounds equal,CTABL, no wheezes, no crackles, no accessory muscle use. HEART: RRR, PABLO 2/6 , S1, S2 without murmur, rub or gallop. ABDOMEN: Soft, NT,ND, normoactive bowel sounds, no guarding, no rebound, no hepatosplenomegaly, no masses. EXTREMITIES: 2+ pulses, warm, well-perfused, no edema. NEUROLOGICAL: Cranial nerves II through XII grossly intact. Normal speech, gait not observed. PSYCH: Normal mood, normal affect. SKIN: Warm, dry, normal turgor, no rashes or lesions noted CBCD WBC 9.2 K/mm3 (4.0-10.0) 05/30/19 05:55 RBC 4.17 M/mm3 (4.00-5.60) 05/30/19 05:55 Hgb 10.6 GM/dL (11.7-16.9) L 05/30/19 05:55 Hct 32.2 % (35.4-49) L 05/30/19 05:55 MCV 77.2 fl (80-96) L 05/30/19 05:55 MCHC 32.9 g/dl (32.0-35.9) 05/30/19 05:55 RDW 17.9 % (11.9-15.9) H 05/30/19 05:55 Plt Count 96 K/MM3 (134-434) L D 05/30/19 05:55 MPV 8.9 fl (7.5-11.1) 05/30/19 05:55 CMP Sodium 137 mmol/L (136-145) 05/30/19 05:55 Potassium 4.2 mmol/L (3.5-5.1) 05/30/19 05:55 Chloride 107 mmol/L (98-107) 05/30/19 05:55 Carbon Dioxide 22 mmol/L (21-32) 05/30/19 05:55 Anion Gap 8 MMOL/L (8-16) 05/30/19 05:55 BUN 32.2 mg/dL (7-18) H 05/30/19 05:55 Creatinine 1.3 mg/dL (0.55-1.3) 05/30/19 05:55 Random Glucose 326 mg/dL (74-106) H 05/30/19 05:55 Calcium 8.0 mg/dL (8.5-10.1) L 05/30/19 05:55 Total Bilirubin 0.3 mg/dL (0.2-1) 05/30/19 05:55 AST 29 U/L (15-37) 05/30/19 05:55 ALT 69 U/L (13-61) H 05/30/19 05:55 Alkaline Phosphatase 73 U/L (45-117) 05/30/19 05:55 Total Protein 5.4 g/dl (6.4-8.2) L 05/30/19 05:55 Albumin 2.2 g/dl (3.4-5.0) L 05/30/19 05:55 CARDIAC ENZYMES Creatine Kinase 26 U/L (26-308) 05/27/19 13:05 Troponin I < 0.02 ng/ml (0.00-0.05) 05/27/19 21:35 Hepatic Panel Total Bilirubin 0.3 mg/dL (0.2-1) 05/30/19 05:55 AST 29 U/L (15-37) 05/30/19 05:55 ALT 69 U/L (13-61) H 05/30/19 05:55 Alkaline Phosphatase 73 U/L (45-117) 05/30/19 05:55 Albumin 2.2 g/dl (3.4-5.0) L 05/30/19 05:55 Current Medications Generic Name Dose Route Start Last Admin Trade Name Freq PRN Reason Stop Dose Admin Albuterol Sulfate 1 amp 05/29/19 10:59 Ventolin 0.083% Nebulizer Soln - NEB Q6H PRN SHORTNESS OF BREATH Carvedilol 3.125 mg 05/30/19 11:49 Coreg - PO BID [facility] Citric Acid/Sodium Citrate 30 ml 05/30/19 12:00 05/30/19 13:50 Bicitra Oral Solution - PO 30 ml DAILY [facility] Administration Clopidogrel Bisulfate 75 mg 05/28/19 19:15 05/30/19 09:13 Plavix - PO 75 mg DAILY [facility] Administration Colchicine 0.6 mg 05/30/19 16:45 05/30/19 17:05 Colcrys PO 05/31/19 06:01 0.6 mg BID@0600,1800 [facility] Administration Colchicine 0.6 mg 06/01/19 10:00 Colcrys PO DAILY [facility] Docusate Sodium 200 mg 05/30/19 22:00 Colace - PO HS [facility] Escitalopram Oxalate 20 mg 05/29/19 10:00 05/30/19 09:14 Lexapro - PO 20 mg DAILY [facility] Administration Piperacillin Sod/Tazobactam 50 mls @ 100 mls/hr 05/29/19 18:00 05/30/19 17:06 Sod 3.375 gm/ Dextrose IVPB 100 mls/hr Q8H-IV [facility] Administration Protocol Sodium Chloride 1,000 mls @ 40 mls/hr 05/30/19 14:25 05/30/19 14:55 1/2 Normal Saline IV 40 mls/hr ASDIR [facility] Administration Insulin Aspart 1 vial 05/28/19 22:00 05/30/19 17:05 Novolog Vial Sliding Scale - SQ 12 units ACHS [facility] Administration Protocol Melatonin 5 mg 05/28/19 03:05 05/29/19 22:42 Melatonin PO 5 mg HS PRN Administration INSOMNIA Melatonin 5 mg 05/30/19 22:00 Melatonin PO 05/30/19 22:01 HS ONE Non-Formulary Medication 100 mg 05/29/19 10:00 Droxidopa [Northera] PO DAILY [facility] Polyethylene Glycol 17 gm 05/30/19 12:00 05/30/19 13:47 Miralax (For Daily Use) - PO 17 grams BID [facility] Administration Prednisone 20 mg 05/28/19 22:00 05/30/19 09:14 Deltasone - PO 05/31/19 10:01 20 mg BID [facility] Administration Prednisone 15 mg 05/31/19 22:00 Deltasone - PO 06/03/19 10:01 BID [facility] Prednisone 10 mg 06/03/19 22:00 Deltasone - PO 06/06/19 10:01 BID [facility] Prednisone 10 mg 06/07/19 10:00 Deltasone - PO 06/09/19 10:01 DAILY [facility] Tamsulosin HCl 0.4 mg 05/29/19 08:30 05/30/19 09:13 Flomax - PO 0.4 mg DAILY@0830 [facility] Administration Home Medications Medication Instructions Recorded Carvedilol 3.125 mg PO BID 12/08/18 Escitalopram Oxalate [Lexapro -] 20 mg PO DAILY 12/08/18 Rosuvastatin Calcium [Crestor] 20 mg PO HS 12/08/18 Insulin Glargine,Hum.rec.anlog 58 units SQ HS 01/11/19 [Lantus Solostar PEN -] Tamsulosin HCl 0.4 mg PO DAILY 01/11/19 Albuterol 0.083% Nebulizer Fatuma 1 amp NEB ONCE 04/07/19 [Ventolin 0.083% Nebulizer Soln -] Clopidogrel Bisulfate [Clopidogrel] 75 mg PO DAILY 04/07/19 Droxidopa [Northera] 100 mg PO DAILY 04/07/19 Insulin Lispro [Humalog Ponce 10 - 34 unit SQ TID 04/07/19 Kwikpen] Melatonin 10 mg PO HS 04/07/19 Sacubitril/Valsartan [Entresto 24 1 each PO BID 04/07/19 mg-26 mg Tablet] predniSONE [Deltasone -] 10 mg PO ASDIR #40 tab 05/22/19 EKG shows NSR, 1o AV block and nonspecific ST-T wave changes. ECHO. Last echo EF 25-30% US: negative duplex of carotid: negative CT of the chest: Patchy infiltrate within both bases and right middle lobe. New nodule RUL which could be mucus plugging. follow up resolution imaging Cardiac cabg, pacing wires. patchy infiltrates within the right base, left base, and RML. 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 Hiatal hernia with oral contrast within the distal esophagus and stomach spondylotic changes of the spine, no aggressive lesions noted Assessment and plan: Patient is a 78yom with PMHx of HTN, HLD, insulin treated DM, CAD s/p CABG, HFrEF, ICD, PAD s/p femorla/popliteal bypass, PUD s/p Bilroth II gastrectomy, achalasia s/p Heller myotomy), COPD, gout, CKD 3B, BPH and depression c/o loss of balance at home. # Pre-syncope most likely vasovagal with a hx of orthostatic HTN , neuro Consult appreciated # RML infiltrate continue zosyn 3.375gm now, comfortable, will have him evaluated for swallowing evaluation asince patient has a hx of achalasia. by Mita jeff in am . to avoid further aspiration . # APRYL on CKD ,cr 1.7-->1.3 ,consult nephrology, will hold Entresto for now, will evaluate in am. # acute Transaminitis: most likely due to liver congestion with possible acute over systolic CHF with EJF of 25-30%, AST/ALT 100/153, RUQ US #T2DM: Hold home regimen, ISS ACHS # HTN: on coreg, continue # HLD: Cont. current home regimen DVT prophylaxis: Heparin SQ Full code Visit type - Emergency Visit Emergency Visit: Yes ED Registration Date: 05/27/19 Care time: The patient presented to the Emergency Department on the above date and was hospitalized for further evaluation of their emergent condition. - New Patient This patient is new to me today: No - Critical Care Critical Care patient: No - Discharge Referral Referred to [facility] No
[2019-05-30] MEDS: MELATONIN 5 MG TABLETS PO ONE (21:39)
[2019-05-30] MEDS ORDERED: DOCUSATE SODIUM 100 MG CAPSULE (FP) PO SCH (22:00)
[2019-05-31] MEDS ORDERED: PIPERACILLIN/TAZOBACTAM 3.375 GM VIAL IVPB ONE ×2 (00:38→10:12)
[2019-05-31] MEDS ORDERED: DEXTROSE 5%-WATER - 50 ML IVPB ONE ×2 (00:38→10:12)
[2019-05-31] MEDS: PIPERACILLIN/TAZOB 3.375 GM 3.375 GM in DEXTROSE 5%-WATER - 50 ML IVPB SCH ×2 (01:11→10:17)
[2019-05-31] MEDS: COLCHICINE 0.6 MG CAP PO SCH (06:55)
[2019-05-31] MEDS: INSULIN SLIDING SCALE (NOVOLOG) 1 VIAL SQ SCH ×2 (06:55→11:58)
[2019-05-31 07:49] LABS: BASO % 0.3 % (0-2.0); EOS % 0.1 % (0-4.5); HEMATOCRIT 33.1 % (35.4-49); HEMOGLOBIN 10.9 GM/dL (11.7-16.9); LYMPH % 4.2 % (8-40); MCH 25.2 pg (25.7-33.7); MEAN CELL VOLUME 76.3 fl (80-96); MEAN PLT VOLUME 8.5 fl (7.5-11.1); MONO % 3.2 % (3.8-10.2); NEUT % 92.2 % (42.8-82.8); PLATELET COUNT 139 K/MM3 (134-434); RBC 4.33 M/mm3 (4.00-5.60); RDW 17.7 % (11.9-15.9); WHITE BLOOD COUNT 9.9 K/mm3 (4.0-10.0)
[2019-05-31 08:14] LABS: ALBUMIN 2.1 g/dl (3.4-5.0); BILIRUBIN,TOTAL 0.6 mg/dL (0.2-1); BLOOD UREA NITROGEN 25.8 mg/dL (7-18); CALCIUM 8.3 mg/dL (8.5-10.1); CREATININE 1.1 mg/dL (0.55-1.3); PHOSPHOROUS 2.5 mg/dL (2.5-4.9); POTASSIUM 4.1 mmol/L (3.5-5.1); TOT PROT 5.4 g/dl (6.4-8.2)
--- NOTE | 2019-05-31 09:02 | PN ---
Progress Note (short form) - Note Progress Note: Neurology CHIEF COMPLAINT: dizziness PCP: Dr. Guerra HISTORY OF PRESENT ILLNESS: 78 y/o male PMH HTN, HLD, insulin treated DM, CAD s/p CABG, HFrEF, ICD, PAD s/p femorla/popliteal bypass, PUD s/p Bilroth II gastrectomy, achalasia s/p Heller myotomy), COPD, gout, CKD 3B, BPH and depression c/o loss of balance at home. Pt described s/p BM at home he fell dizzy upon standing; room spinning. He denied LOC, head trauma, tongue biting, contractures. There was no aura prior and there was no postictal state. When he felt dizzy he sat down on the toilet and needed family to help assist him to bed. During this event he experienced a single episode of diarrhea; non-bloody, non-mucoid. He said that he vomited x1 NBNB food containing. Pt was recently dc from admission for COPD exacerbation and was on steroid taper (third day of 15 mg). He denied CP, SOB, abdominal pain , and any current diziness. Ct of head completed and demonstrated chronic R frontal encephalomalacia. Carotid ultrasound also performed and showed moderate atherosclerotic plaque without hemodinamically stenosis. Also noted, B/L elevated flow velocities at origin of extracranial carotid arteries C/W stenosis. No focal deficits on exam and reports generalized weakness, sleepy during my evaluation. Discussed results with him and no focal deficits noted. Remains on antibiotics, Zosyn for infection, and can be continued. Echo ordered , awaiting completion. Much improved this morning and able to maintain conversation with the examiner, appears to be near baseline neurologically Active Medications Albuterol Sulfate (Ventolin 0.083% Nebulizer Soln -) 1 amp NEB Q6H PRN PRN Reason: SHORTNESS OF BREATH Carvedilol (Coreg -) 3.125 mg PO BID [facility] Last Admin: 05/30/19 21:40 Dose: 3.125 mg Citric Acid/Sodium Citrate (Bicitra Oral Solution -) 30 ml PO DAILY [facility] Last Admin: 05/30/19 13:50 Dose: 30 ml Clopidogrel Bisulfate (Plavix -) 75 mg PO DAILY [facility] Last Admin: 05/30/19 09:13 Dose: 75 mg Colchicine (Colcrys) 0.6 mg PO DAILY [facility] Docusate Sodium (Colace -) 200 mg PO HS [facility] Last Admin: 05/30/19 21:40 Dose: 200 mg Escitalopram Oxalate (Lexapro -) 20 mg PO DAILY [facility] Last Admin: 05/30/19 09:14 Dose: 20 mg Piperacillin Sod/Tazobactam (Sod 3.375 gm/ Dextrose) 50 mls @ 100 mls/hr IVPB Q8H-IV [facility]; Protocol Last Admin: 05/31/19 01:11 Dose: 100 mls/hr Sodium Chloride (1/2 Normal Saline) 1,000 mls @ 40 mls/hr IV ASDIR [facility] Last Admin: 05/30/19 14:55 Dose: 40 mls/hr Insulin Aspart (Novolog Vial Sliding Scale -) 1 vial SQ ACHS [facility]; Protocol Last Admin: 05/31/19 06:55 Dose: 4 units Melatonin (Melatonin) 5 mg PO HS PRN PRN Reason: INSOMNIA Last Admin: 05/29/19 22:42 Dose: 5 mg Non-Formulary Medication (Droxidopa [Northera]) 100 mg PO DAILY [facility] Polyethylene Glycol (Miralax (For Daily Use) -) 17 gm PO BID [facility] Last Admin: 05/30/19 21:42 Dose: 17 grams Prednisone (Deltasone -) 20 mg PO BID [facility] Stop: 05/31/19 10:01 Last Admin: 05/30/19 21:39 Dose: 20 mg Prednisone (Deltasone -) 15 mg PO BID [facility] Stop: 06/03/19 10:01 Prednisone (Deltasone -) 10 mg PO BID [facility] Stop: 06/06/19 10:01 Prednisone (Deltasone -) 10 mg PO DAILY [facility] Stop: 06/09/19 10:01 Tamsulosin HCl (Flomax -) 0.4 mg PO DAILY@0830 [facility] Last Admin: 05/30/19 09:13 Dose: 0.4 mg PHYSICAL EXAMINATION Vital Signs Period Temp Pulse Resp BP Sys/Garcia Pulse Ox Last 24 Hr 97.3 F-98.0 F 51-66 16-20 130-167/50-67 96 Orthostatic hypotension NEGATIVE GENERAL: AOx3, in no acute distress HEAD: NCAT EYES: RIGHT ruptured pupil from trauma in youth. LEFT pupil reaction to light and accommodation, EOMI, conjunctiva clear, mild icterus. ENT: Ears normal, nares patent, oropharynx clear without exudates. Moist mucous membranes. NECK: Normal range of motion, supple without lymphadenopathy, JVD, or masses. LUNGS: CTAB. RLL crackles. No accessory muscle use. HEART: RRR s1 s2 ABDOMEN: BL inguinal hernia, non reducible. Soft, BS present in all 4 quadrants , non-distended, no JVD, MUSCULOSKELETAL: No bony deformities or tenderness. No CVA tenderness. UPPER EXTREMITIES: 2+ pulses, warm, well-perfused. No cyanosis. No clubbing. No peripheral edema. LOWER EXTREMITIES: 2+ pulses, warm, well-perfused. No calf tenderness. No peripheral edema. NEUROLOGICAL: No focal deficits. Cranial nerves II-XII intact. Normal speech. Gait not appreciated. PSYCHIATRIC: Cooperative. Good eye contact. Appropriate mood and affect. SKIN: Nevi diffusely scattered on body. Gluteal cleft erythematous. Warm, dry, normal turgor, no rashes or lesions noted, normal capillary refill. CBCD WBC 9.9 K/mm3 (4.0-10.0) 05/31/19 06:25 RBC 4.33 M/mm3 (4.00-5.60) 05/31/19 06:25 Hgb 10.9 GM/dL (11.7-16.9) L 05/31/19 06:25 Hct 33.1 % (35.4-49) L 05/31/19 06:25 MCV 76.3 fl (80-96) L 05/31/19 06:25 MCHC 33.0 g/dl (32.0-35.9) 05/31/19 06:25 RDW 17.7 % (11.9-15.9) H 05/31/19 06:25 Plt Count 139 K/MM3 (134-434) D 05/31/19 06:25 MPV 8.5 fl (7.5-11.1) 05/31/19 06:25 CMP Sodium 139 mmol/L (136-145) 05/31/19 06:25 Potassium 4.1 mmol/L (3.5-5.1) 05/31/19 06:25 Chloride 110 mmol/L (98-107) H 05/31/19 06:25 Carbon Dioxide 24 mmol/L (21-32) 05/31/19 06:25 Anion Gap 6 MMOL/L (8-16) L 05/31/19 06:25 BUN 25.8 mg/dL (7-18) H 05/31/19 06:25 Creatinine 1.1 mg/dL (0.55-1.3) 05/31/19 06:25 Random Glucose 228 mg/dL (74-106) H 05/31/19 06:25 Calcium 8.3 mg/dL (8.5-10.1) L 05/31/19 06:25 Total Bilirubin 0.6 mg/dL (0.2-1) 05/31/19 06:25 AST 19 U/L (15-37) 05/31/19 06:25 ALT 66 U/L (13-61) H 05/31/19 06:25 Alkaline Phosphatase 70 U/L (45-117) 05/31/19 06:25 Total Protein 5.4 g/dl (6.4-8.2) L 05/31/19 06:25 Albumin 2.1 g/dl (3.4-5.0) L 05/31/19 06:25 CARDIAC ENZYMES Creatine Kinase 26 U/L (26-308) 05/27/19 13:05 Troponin I < 0.02 ng/ml (0.00-0.05) 05/27/19 21:35 ASSESSMENT/PLAN: 78 y/o male PMH HTN, HLD, insulin treated DM, CAD s/p CABG, HFrEF, ICD, PAD s/p femorla/popliteal bypass, PUD s/p Bilroth II gastrectomy, achalasia s/p Heller myotomy), COPD, gout, CKD 3B, BPH and depression c/o loss of balance at home. Pt described s/p BM at home he fell dizzy upon standing; room spinning. He denied LOC, head trauma, tongue biting, contractures. There was no aura prior and there was no postictal state. When he felt dizzy he sat down on the toilet and needed family to help assist him to bed. During this event he experienced a single episode of diarrhea; non-bloody, non-mucoid. He said that he vomited x1 NBNB food containing. Pt was recently dc from admission for COPD exacerbation and was on steroid taper (third day of 15 mg). He denied CP, SOB, abdominal pain , and any current diziness. Ct of head completed and no acute changes, past R frontal encephalomalacia noted. Carotid ultrasound also performed and showed moderate atherosclerotic plaque without hemodinamically stenosis. Also noted, B/ L elevated flow velocities at origin of extracranial carotid arteries C/W stenosis. No focal deficits on exam and reports generalized weakness, sleepy during my evaluation. Discussed results with him and no focal deficits noted. Remains on antibiotics, Zosyn for infection, and can be continued. Continue medical optimization, maintain adequate hydration, cardiac follow up. Monitor lytes, replinish K as needed. Monitor BP, maintain normotensive range. Much improved this morning and able to maintain conversation with the examiner, appears to be near baseline neurologically, no further recommendations at this time
--- NOTE | 2019-05-31 10:06 | PN ---
Physical Exam: SUBJECTIVE: Patient seen and examined at bedside. Overnight there were no acute evens. Some PVCs on monior. He offers no complaints today. OBJECTIVE: Vital Signs Temp Pulse Resp BP Pulse Ox 98.2 F 62 20 150/63 96 05/31/19 13:19 05/31/19 13:19 05/31/19 13:19 05/31/19 13:05/31/19 09:00 GENERAL: AOx3, in no acute distress HEAD: NCAT EYES: RIGHT ruptured pupil from trauma in youth. LEFT pupil reaction to light and accommodation, EOMI, conjunctiva clear, mild icterus. ENT: Ears normal, nares patent, oropharynx clear without exudates. Moist mucous membranes. NECK: Normal range of motion, supple without lymphadenopathy, JVD, or masses. LUNGS: CTAB. RLL crackles. No accessory muscle use. HEART: RRR s1 s2 ABDOMEN: BL inguinal hernia, non reducible. Soft, BS present in all 4 quadrants , non-distended, no JVD, MUSCULOSKELETAL: No bony deformities or tenderness. No CVA tenderness. UPPER EXTREMITIES: 2+ pulses, warm, well-perfused. No cyanosis. No clubbing. No peripheral edema. LOWER EXTREMITIES: 2+ pulses, warm, well-perfused. No calf tenderness. No peripheral edema. NEUROLOGICAL: No focal deficits. Cranial nerves II-XII intact. Normal speech. Gait not appreciated. PSYCHIATRIC: Cooperative. Good eye contact. Appropriate mood and affect. SKIN: Nevi diffusely scattered on body. Gluteal cleft erythematous. Warm, dry, normal turgor, no rashes or lesions noted, normal capillary refill. Laboratory Results - last 24 hr 05/30/19 05/30/19 05/30/19 12:08 17:03 19:02 WBC RBC Hgb Hct MCV MCH MCHC RDW Plt Count MPV Absolute Neuts (auto) Neutrophils % Lymphocytes % Monocytes % Eosinophils % Basophils % Nucleated RBC % Sodium Potassium Chloride Carbon Dioxide Anion Gap BUN Creatinine Est GFR (CKD-EPI)AfAm Est GFR (CKD-EPI)NonAf POC Glucometer 371 401 341 Random Glucose Calcium Phosphorus Magnesium Total Bilirubin AST ALT Alkaline Phosphatase Total Protein Albumin 05/30/19 05/31/19 05/31/19 21:38 06:25 06:25 WBC 9.9 RBC 4.33 Hgb 10.9 L Hct 33.1 L MCV 76.3 L MCH 25.2 L MCHC 33.0 RDW 17.7 H Plt Count 139 D MPV 8.5 Absolute Neuts (auto) 9.1 H Neutrophils % 92.2 H Lymphocytes % 4.2 L Monocytes % 3.2 L Eosinophils % 0.1 Basophils % 0.3 Nucleated RBC % 0 Sodium 139 Potassium 4.1 Chloride 110 H Carbon Dioxide 24 Anion Gap 6 L BUN 25.8 H Creatinine 1.1 Est GFR (CKD-EPI)AfAm 75.18 Est GFR (CKD-EPI)NonAf 64.86 POC Glucometer 274 Random Glucose 228 H Calcium 8.3 L Phosphorus 2.5 Magnesium 2.0 Total Bilirubin 0.6 AST 19 ALT 66 H Alkaline Phosphatase 70 Total Protein 5.4 L Albumin 2.1 L 05/31/19 06:52 WBC RBC Hgb Hct MCV MCH MCHC RDW Plt Count MPV Absolute Neuts (auto) Neutrophils % Lymphocytes % Monocytes % Eosinophils % Basophils % Nucleated RBC % Sodium Potassium Chloride Carbon Dioxide Anion Gap BUN Creatinine Est GFR (CKD-EPI)AfAm Est GFR (CKD-EPI)NonAf POC Glucometer 237 Random Glucose Calcium Phosphorus Magnesium Total Bilirubin AST ALT Alkaline Phosphatase Total Protein Albumin Active Medications Albuterol Sulfate (Ventolin 0.083% Nebulizer Soln -) 1 amp NEB Q6H PRN PRN Reason: SHORTNESS OF BREATH Carvedilol (Coreg -) 3.125 mg PO BID [facility] Last Admin: 05/31/19 15:18 Dose: 3.125 mg Citric Acid/Sodium Citrate (Bicitra Oral Solution -) 30 ml PO DAILY [facility] Last Admin: 05/31/19 10:17 Dose: 30 ml Clopidogrel Bisulfate (Plavix -) 75 mg PO DAILY [facility] Last Admin: 05/31/19 10:16 Dose: 75 mg Colchicine (Colcrys) 0.6 mg PO DAILY [facility] Docusate Sodium (Colace -) 200 mg PO HS [facility] Last Admin: 05/30/19 21:40 Dose: 200 mg Escitalopram Oxalate (Lexapro -) 20 mg PO DAILY [facility] Last Admin: 05/31/19 10:16 Dose: 20 mg Piperacillin Sod/Tazobactam (Sod 3.375 gm/ Dextrose) 50 mls @ 100 mls/hr IVPB Q8H-IV [facility]; Protocol Last Admin: 05/31/19 10:17 Dose: 100 mls/hr Insulin Aspart (Novolog Vial Sliding Scale -) 1 vial SQ ACHS [facility]; Protocol Last Admin: 05/31/19 11:58 Dose: 10 units Melatonin (Melatonin) 5 mg PO HS PRN PRN Reason: INSOMNIA Last Admin: 05/29/19 22:42 Dose: 5 mg Non-Formulary Medication (Droxidopa [Northera]) 100 mg PO DAILY [facility] Polyethylene Glycol (Miralax (For Daily Use) -) 17 gm PO BID [facility] Last Admin: 05/31/19 10:17 Dose: 17 grams Prednisone (Deltasone -) 15 mg PO BID [facility] Stop: 06/03/19 10:01 Prednisone (Deltasone -) 10 mg PO BID [facility] Stop: 06/06/19 10:01 Prednisone (Deltasone -) 10 mg PO DAILY [facility] Stop: 06/09/19 10:01 Tamsulosin HCl (Flomax -) 0.4 mg PO DAILY@0830 [facility] Last Admin: 05/31/19 10:17 Dose: 0.4 mg ASSESSMENT/PLAN: ATTENDING PHYSICIAN STATEMENT I saw and evaluated the patient. I reviewed the resident's note and discussed the case with the resident. I agree with the resident's findings and plan as documented. SUBJECTIVE: OBJECTIVE: ASSESSMENT AND PLAN:
[2019-05-31] MEDS ORDERED: ESCITALOPRAM OXALATE 10 MG TABLET ONE (10:11)
[2019-05-31] MEDS ORDERED: PT OWN MED DRAWER 7, Y5N ONE (10:12)
[2019-05-31] MEDS: predniSONE 10 MG TABLET (UD) PO SCH (10:16)
[2019-05-31] MEDS: CARVEDILOL 3.125 MG TABLET (FP) PO SCH ×2 (10:16→15:18)
[2019-05-31] MEDS: ESCITALOPRAM OXALATE 20 MG TABLET PO SCH (10:16)
[2019-05-31] MEDS: CLOPIDOGREL BISULFATE 75 MG TABLET (FP) PO SCH (10:16)
[2019-05-31] MEDS: CITRIC ACID/SODIUM CITRATE 30 ML UNIT-DOSE CUP PO SCH (10:17)
[2019-05-31] MEDS: TAMSULOSIN HCL 0.4 MG CAP PO SCH (10:17)
[2019-05-31] MEDS: POLYETHYLENE GLYCOL 3350 119 GM BTL PO SCH (10:17)
--- NOTE | 2019-05-31 11:39 | PN ---
Progress Note, Physician History of Present Illness: Pt seen and examined at bedside. He is awake and alert. He denies shortness of breath. - Current Medication List Current Medications: Active Medications Albuterol Sulfate (Ventolin 0.083% Nebulizer Soln -) 1 amp NEB Q6H PRN PRN Reason: SHORTNESS OF BREATH Carvedilol (Coreg -) 3.125 mg PO BID [facility] Last Admin: 05/31/19 10:16 Dose: Not Given Citric Acid/Sodium Citrate (Bicitra Oral Solution -) 30 ml PO DAILY [facility] Last Admin: 05/31/19 10:17 Dose: 30 ml Clopidogrel Bisulfate (Plavix -) 75 mg PO DAILY [facility] Last Admin: 05/31/19 10:16 Dose: 75 mg Colchicine (Colcrys) 0.6 mg PO DAILY [facility] Docusate Sodium (Colace -) 200 mg PO HS [facility] Last Admin: 05/30/19 21:40 Dose: 200 mg Escitalopram Oxalate (Lexapro -) 20 mg PO DAILY [facility] Last Admin: 05/31/19 10:16 Dose: 20 mg Piperacillin Sod/Tazobactam (Sod 3.375 gm/ Dextrose) 50 mls @ 100 mls/hr IVPB Q8H-IV [facility]; Protocol Last Admin: 05/31/19 10:17 Dose: 100 mls/hr Sodium Chloride (1/2 Normal Saline) 1,000 mls @ 40 mls/hr IV ASDIR [facility] Last Admin: 05/30/19 14:55 Dose: 40 mls/hr Insulin Aspart (Novolog Vial Sliding Scale -) 1 vial SQ ACHS [facility]; Protocol Last Admin: 05/31/19 06:55 Dose: 4 units Melatonin (Melatonin) 5 mg PO HS PRN PRN Reason: INSOMNIA Last Admin: 05/29/19 22:42 Dose: 5 mg Non-Formulary Medication (Droxidopa [Northera]) 100 mg PO DAILY [facility] Polyethylene Glycol (Miralax (For Daily Use) -) 17 gm PO BID [facility] Last Admin: 05/31/19 10:17 Dose: 17 grams Prednisone (Deltasone -) 15 mg PO BID [facility] Stop: 06/03/19 10:01 Prednisone (Deltasone -) 10 mg PO BID [facility] Stop: 06/06/19 10:01 Prednisone (Deltasone -) 10 mg PO DAILY [facility] Stop: 06/09/19 10:01 Tamsulosin HCl (Flomax -) 0.4 mg PO DAILY@0830 [facility] Last Admin: 05/31/19 10:17 Dose: 0.4 mg - Objective Vital Signs: Vital Signs Temperature 97.8 F 05/31/19 08:22 Pulse Rate 52 L 05/31/19 08:22 Respiratory Rate 18 05/31/19 08:22 Blood Pressure 146/61 05/31/19 08:22 O2 Sat by Pulse Oximetry (%) 96 05/31/19 09:00 Constitutional: Yes: Calm Eyes: Yes: Conjunctiva Clear HENT: Yes: Atraumatic Cardiovascular: Yes: S1, S2 Respiratory: Yes: CTA Bilaterally Gastrointestinal: Yes: Soft Genitourinary: Yes: WNL Musculoskeletal: Yes: WNL Edema: No Neurological: Yes: Oriented Psychiatric: Yes: Oriented Labs: CBC, BMP 05/31/19 06:25 05/31/19 06:25 INR, PTT INR 1.01 (0.83-1.09) 05/27/19 13:05 Problem List - Problems (1) Acute kidney injury Code(s): N17.9 - ACUTE KIDNEY FAILURE, UNSPECIFIED (2) Hyperkalemia Code(s): E87.5 - HYPERKALEMIA Assessment/Plan Current Medications Generic Name Dose Route Start Last Admin Trade Name Freq PRN Reason Stop Dose Admin Albuterol Sulfate 1 amp 05/29/19 10:59 Ventolin 0.083% Nebulizer Soln - NEB Q6H PRN SHORTNESS OF BREATH Carvedilol 3.125 mg 05/30/19 11:49 Coreg - PO BID [facility] Citric Acid/Sodium Citrate 30 ml 05/30/19 12:00 Bicitra Oral Solution - PO DAILY [facility] Clopidogrel Bisulfate 75 mg 05/28/19 19:15 05/30/19 09:13 Plavix - PO 75 mg DAILY [facility] Administration Colchicine 0.6 mg 05/30/19 18:00 Colcrys PO 05/31/19 06:01 BID@0600,1800 [facility] Colchicine 0.6 mg 05/31/19 06:00 Colcrys PO DAILY [facility] Docusate Sodium 200 mg 05/30/19 22:00 Colace - PO HS [facility] Escitalopram Oxalate 20 mg 05/29/19 10:00 05/30/19 09:14 Lexapro - PO 20 mg DAILY [facility] Administration Sodium Chloride 1,000 mls @ 75 mls/hr 05/27/19 19:00 05/30/19 09:12 1/2 Normal Saline IV 75 mls/hr ASDIR [facility] Administration Piperacillin Sod/Tazobactam 50 mls @ 100 mls/hr 05/29/19 18:00 05/30/19 09:13 Sod 3.375 gm/ Dextrose IVPB 100 mls/hr Q8H-IV [facility] Administration Protocol Insulin Aspart 1 vial 05/28/19 22:00 05/30/19 12:08 Novolog Vial Sliding Scale - SQ 10 units ACHS [facility] Administration Protocol Melatonin 5 mg 05/28/19 03:05 05/29/19 22:42 Melatonin PO 5 mg HS PRN Administration INSOMNIA Non-Formulary Medication 100 mg 05/29/19 10:00 Droxidopa [Northera] PO DAILY [facility] Polyethylene Glycol 17 gm 05/30/19 12:00 Miralax (For Daily Use) - PO BID [facility] Prednisone 20 mg 05/28/19 22:00 05/30/19 09:14 Deltasone - PO 05/31/19 10:01 20 mg BID [facility] Administration Prednisone 15 mg 05/31/19 22:00 Deltasone - PO 06/03/19 10:01 BID [facility] Prednisone 10 mg 06/03/19 22:00 Deltasone - PO 06/06/19 10:01 BID [facility] Prednisone 10 mg 06/07/19 10:00 Deltasone - PO 06/09/19 10:01 DAILY [facility] Tamsulosin HCl 0.4 mg 05/29/19 08:30 05/30/19 09:13 Flomax - PO 0.4 mg DAILY@0830 [facility] Administration Impression 1. CKD 2. dehydration 3. PVD 4. HLD 5. CHF 6. atrophic left kidney 7. hyperkalemia Plan - cont to monitor renal function - can d/c fluids - avoid nsaids - pt is clinically improved
[2019-05-31 13:20] VITALS: BP 150/63; PULSE 62; TEMP 98.2
--- NOTE | 2019-05-31 17:31 | DS ---
Physical Exam: SUBJECTIVE: Patient seen and examined at bedside. Overnight there were no acute evens. Some PVCs on monior. He offers no complaints today. OBJECTIVE: Vital Signs Temp Pulse Resp BP Pulse Ox 98.2 F 62 20 150/63 96 05/31/19 13:19 05/31/19 13:19 05/31/19 13:19 05/31/19 13:05/31/19 09:00 PHYSICAL EXAM GENERAL: AOx3, in no acute distress HEAD: NCAT EYES: RIGHT ruptured pupil from trauma in youth. LEFT pupil reaction to light and accommodation, EOMI, conjunctiva clear, mild icterus. ENT: Ears normal, nares patent, oropharynx clear without exudates. Moist mucous membranes. NECK: Normal range of motion, supple without lymphadenopathy, JVD, or masses. LUNGS: CTAB. RLL crackles. No accessory muscle use. HEART: RRR s1 s2 ABDOMEN: BL inguinal hernia, non reducible. Soft, BS present in all 4 quadrants , non-distended, no JVD, MUSCULOSKELETAL: No bony deformities or tenderness. No CVA tenderness. UPPER EXTREMITIES: 2+ pulses, warm, well-perfused. No cyanosis. No clubbing. No peripheral edema. LOWER EXTREMITIES: 2+ pulses, warm, well-perfused. No calf tenderness. No peripheral edema. NEUROLOGICAL: No focal deficits. Cranial nerves II-XII intact. Normal speech. Gait not appreciated. PSYCHIATRIC: Cooperative. Good eye contact. Appropriate mood and affect. SKIN: Nevi diffusely scattered on body. Gluteal cleft erythematous. Warm, dry, normal turgor, no rashes or lesions noted, normal capillary refill. Laboratory Results - last 24 hr LABS 05/30/19 05/30/19 05/31/19 19:02 21:38 06:25 WBC 9.9 RBC 4.33 Hgb 10.9 L Hct 33.1 L MCV 76.3 L MCH 25.2 L MCHC 33.0 RDW 17.7 H Plt Count 139 D MPV 8.5 Absolute Neuts (auto) 9.1 H Neutrophils % 92.2 H Neutrophils % (Manual) 90.3 H Band Neutrophils % 0.0 Lymphocytes % 4.2 L Lymphocytes % (Manual) 3.9 L D Monocytes % 3.2 L Monocytes % (Manual) 3 L D Eosinophils % 0.1 Eosinophils % (Manual) 0.0 Basophils % 0.3 Basophils % (Manual) 0.0 Myelocytes % (Man) 0 Promyelocytes % (Man) 0 Blast Cells % (Manual) 0 Nucleated RBC % 0 Metamyelocytes 0 Sodium Potassium Chloride Carbon Dioxide Anion Gap BUN Creatinine Est GFR (CKD-EPI)AfAm Est GFR (CKD-EPI)NonAf POC Glucometer 341 274 Random Glucose Calcium Phosphorus Magnesium Total Bilirubin AST ALT Alkaline Phosphatase Total Protein Albumin 05/31/19 05/31/19 05/31/19 06:25 06:52 11:58 WBC RBC Hgb Hct MCV MCH MCHC RDW Plt Count MPV Absolute Neuts (auto) Neutrophils % Neutrophils % (Manual) Band Neutrophils % Lymphocytes % Lymphocytes % (Manual) Monocytes % Monocytes % (Manual) Eosinophils % Eosinophils % (Manual) Basophils % Basophils % (Manual) Myelocytes % (Man) Promyelocytes % (Man) Blast Cells % (Manual) Nucleated RBC % Metamyelocytes Sodium 139 Potassium 4.1 Chloride 110 H Carbon Dioxide 24 Anion Gap 6 L BUN 25.8 H Creatinine 1.1 Est GFR (CKD-EPI)AfAm 75.18 Est GFR (CKD-EPI)NonAf 64.86 POC Glucometer 237 373 Random Glucose 228 H Calcium 8.3 L Phosphorus 2.5 Magnesium 2.0 Total Bilirubin 0.6 AST 19 ALT 66 H Alkaline Phosphatase 70 Total Protein 5.4 L Albumin 2.1 L HOSPITAL COURSE: Date of Admission:05/27/19 78 y/o male PMH HTN, HLD, insulin treated DM, CAD s/p CABG, HFrEF, ICD, PAD s/p femorla/popliteal bypass, PUD s/p Bilroth II gastrectomy, achalasia s/p Heller myotomy), COPD, gout, CKD 3B, BPH and depression c/o loss of balance at home. He was admitted for w/u of pre-syncope and failure to thrive given recurrent admissions for comorbid conditiosn. Orthostatics NEG despite diarrhea and family reported use of 10 mg Lasix qd. EKG shows NSR, 1o AV block and nonspecific ST-T wave changes. Flu, UA Neg. ECHO. Last echo EF 25-30%, high metabolic demand. Carotid doppler: extracranial carotid BL with high velocity suggestive of stenosis. Neurology consulted: noted carotid ultrasound also performed and showed moderate atherosclerotic plaque without hemodinamically stenosis. CXR with RML infiltrate; was on zosyn and sent home on 5 days augmentin. Had dysphagia consistent with previous admissions. Mod barium swallow showed poor emptying and recommendation was to f/u at tertiary care center; given referal to [facility]. APRYL on CKD 3B during stay. Transaminitis AST/ALT 100/153 reslved by end of stay. Hyperkalemia on admission that resolved with insulin in ED. Pt sent home on remainder of prednisone taper. Date of Discharge: 05/31/19 Ricardo Felton MD Minutes to complete discharge: 40 Discharge Summary Problems reviewed: Yes Reason For Visit: ACUTE KIDNEY INJURY RECURRENT FALLS Condition: Improved - Instructions Diet, Activity, Other Instructions: YOUR VISIT You came to the hospital because you were feeling unsteady. You were admitted to the hospital for care of pre-syncope. While here, you were seen by a neurologist, infectious disease specialist, and a smoking pipes cleaner. You are now stable and may return home. MEDICATIONS Please continue to take your medications as prescribed. Your insulin has been changed to 20 units in the morning. Continue your sliding scale as directed. Be sure to check your fingerstick blood glucose daily. Since you were receiving steroid medications in the hospital, you will need to continue this at home with a tapered dose as follows: May 31, 2019 prednisone 30 mg by mouth June 01, 2019 prednisone 30 mg by mouth June 02, 2019 prednisone 30 mg by mouth June 03, 2019 prednisone 20 mg by mouth June 04, 2019 prednisone 20 mg by mouth June 05, 2019 prednisone 20 mg by mouth June 06, 2019 prednisone 20 mg by mouth June 07, 2019 prednisone 10 mg by mouth June 08, 2019 prednisone 10 mg by mouth June 09, 2019 prednisone 10 mg by mouth June 10, 2019 STOP taking prednisone NEW MEDICATION Please take 500 mg of Augmentin suspension by mouth three a day for 5 days. ADDITIONAL CARE Please make an appointment to see your primary care provider, Dr. Aguilera, 1 week from today. Please make an appointment to see a pencil inspector in 1 week. A referral has to Dr. Morales has been provided. You can discuss your current medications. Please make an appointment to see a neurologist in 1 week. A referral has to Dr. Suárez has been provided. Please make an appointment to see a smoking pipes cleaner in 1 week. A referral has to Dr. Teague has been provided. It is STRONGLY recommended that you follow up with Historical [employer] Director Dr. Yung Aponte from [facility]: [phone] An appointment has been scheduled for June 06 at 2:20PM. A referral has been provided. Address [address] [place] [address] You can also follow up with Dr Jean Nieves at [facility] . You may call [phone] to schedule an appointment. Follow a soft diet with nectar thickened liquids. Eat small amounts at a time, sitting upright in a chair, and remain upright at least two hours after eating. Eat several small meals throughout the day. ADDITIONAL INFORMATION Please call 911 or come directly to the emergency department if you experience unusual headache, vision change, shortness of breath, chest pain, numbness, tingling, loss of alertness/awareness, loss of function, unusual bleeding or any alarming symptoms. Referrals: Vikash Guerra MD [Primary Care Provider] - Jayy Morales MD [Staff Physician] - Ajay Suárez MD [Staff Physician] - Gabriel Teague MD [Staff Physician] - Yung Aponte MD [Non Staff, Medical] - 06/06/19 2:20 pm (Evaluate for dysphagia, dysmotility.) Disposition: HOME - Home Medications Comprehensive Discharge Medication List: Ambulatory Orders Carvedilol 3.125 mg PO BID 12/08/18 Escitalopram Oxalate [Lexapro -] 20 mg PO DAILY 12/08/18 Rosuvastatin Calcium [Crestor] 20 mg PO HS 12/08/18 Tamsulosin HCl 0.4 mg PO DAILY 01/11/19 Clopidogrel Bisulfate [Clopidogrel] 75 mg PO DAILY 04/07/19 Droxidopa [Northera] 100 mg PO DAILY 04/07/19 Insulin Lispro [Humalog Ponce Kwikpen] 10 - 34 unit SQ TID 04/07/19 Melatonin 10 mg PO HS 04/07/19 Sacubitril/Valsartan [Entresto 24 mg-26 mg Tablet] 1 each PO BID 04/07/19 predniSONE [Deltasone -] 10 mg PO ASDIR #40 tab 05/22/19 Albuterol Sulfate [Proair Digihaler] 2 puff NEB TID PRN 05/31/19 Amoxicillin/Potassium Clav [Augmentin ES Suspension] 500 mg PO TID 5 Days #7500 ml 05/31/19 Bimatoprost [Lumigan] 1 drop DAILY 05/31/19 Citric Acid/Sodium Citrate [Bicitra Oral Solution -] 30 ml PO DAILY #120 oz Colchicine [Colcrys] 0.6 mg PO DAILY cap 05/31/19 Furosemide 20 mg PO DAILY 05/31/19 Insulin Glargine,Hum.rec.anlog [Lantus Solostar PEN -] 20 units SQ AM #1 vial Polyethylene Glycol 3350 [Miralax 119 gm Btl -] 17 gm PO BID bottle 05/31/19 predniSONE [Deltasone -] See Taper PO ASDIR 9 Days #18 tab 05/31/19 This patient is new to me today: No Emergency Visit: No Critical Care patient: No - Discharge Referral Referred to [facility] Med P.C.: No ATTENDING PHYSICIAN STATEMENT I saw and evaluated the patient. I reviewed the resident's note and discussed the case with the resident. I agree with the resident's findings and plan as documented. SUBJECTIVE: OBJECTIVE: ASSESSMENT AND PLAN:
--- NOTE | 2019-05-31 17:49 | PN ---
Teaching Attending Note Name of Resident: Rigo Victor ATTENDING PHYSICIAN STATEMENT I saw and evaluated the patient. I reviewed the resident's note and discussed the case with the resident. I agree with the resident's findings and plan as documented. SUBJECTIVE: Patient is comfortable with no acute distress, no nausea or vomiting, no shortness of breath. c/o having difficulty with his achlasia. swallowing evaluation and MBS ordered. Vital Signs Temperature 98.2 F 05/31/19 13:19 Pulse Rate 62 05/31/19 13:19 Respiratory Rate 20 05/31/19 13:19 Blood Pressure 150/63 05/31/19 13:19 O2 Sat by Pulse Oximetry (%) 96 05/31/19 09:00 GENERAL: The patient is awake, alert, and fully oriented, in no acute distress. HEAD: Normal with no signs of trauma. EYES: PERRL, extraocular movements intact, sclera anicteric, conjunctiva clear. ENT: Ears normal, oropharynx clear without exudates, moist mucous membranes. NECK: Trachea midline, full range of motion, supple. LUNGS: Breath sounds equal,CTABL, no wheezes, no crackles, no accessory muscle use. HEART: RRR, PABLO 2/6 , S1, S2 without murmur, rub or gallop. ABDOMEN: Soft, NT,ND, normoactive bowel sounds, no guarding, no rebound, no hepatosplenomegaly, no masses. EXTREMITIES: 2+ pulses, warm, well-perfused, no edema. NEUROLOGICAL: Cranial nerves II through XII grossly intact. Normal speech, gait not observed. PSYCH: Normal mood, normal affect. SKIN: Warm, dry, normal turgor, no rashes or lesions noted CBCD WBC 9.2 K/mm3 (4.0-10.0) 05/30/19 05:55 RBC 4.17 M/mm3 (4.00-5.60) 05/30/19 05:55 Hgb 10.6 GM/dL (11.7-16.9) L 05/30/19 05:55 Hct 32.2 % (35.4-49) L 05/30/19 05:55 MCV 77.2 fl (80-96) L 05/30/19 05:55 MCHC 32.9 g/dl (32.0-35.9) 05/30/19 05:55 RDW 17.9 % (11.9-15.9) H 05/30/19 05:55 Plt Count 96 K/MM3 (134-434) L D 05/30/19 05:55 MPV 8.9 fl (7.5-11.1) 05/30/19 05:55 CMP Sodium 137 mmol/L (136-145) 05/30/19 05:55 Potassium 4.2 mmol/L (3.5-5.1) 05/30/19 05:55 Chloride 107 mmol/L (98-107) 05/30/19 05:55 Carbon Dioxide 22 mmol/L (21-32) 05/30/19 05:55 Anion Gap 8 MMOL/L (8-16) 05/30/19 05:55 BUN 32.2 mg/dL (7-18) H 05/30/19 05:55 Creatinine 1.3 mg/dL (0.55-1.3) 05/30/19 05:55 Random Glucose 326 mg/dL (74-106) H 05/30/19 05:55 Calcium 8.0 mg/dL (8.5-10.1) L 05/30/19 05:55 Total Bilirubin 0.3 mg/dL (0.2-1) 05/30/19 05:55 AST 29 U/L (15-37) 05/30/19 05:55 ALT 69 U/L (13-61) H 05/30/19 05:55 Alkaline Phosphatase 73 U/L (45-117) 05/30/19 05:55 Total Protein 5.4 g/dl (6.4-8.2) L 05/30/19 05:55 Albumin 2.2 g/dl (3.4-5.0) L 05/30/19 05:55 CARDIAC ENZYMES Creatine Kinase 26 U/L (26-308) 05/27/19 13:05 Troponin I < 0.02 ng/ml (0.00-0.05) 05/27/19 21:35 Hepatic Panel Total Bilirubin 0.3 mg/dL (0.2-1) 05/30/19 05:55 AST 29 U/L (15-37) 05/30/19 05:55 ALT 69 U/L (13-61) H 05/30/19 05:55 Alkaline Phosphatase 73 U/L (45-117) 05/30/19 05:55 Albumin 2.2 g/dl (3.4-5.0) L 05/30/19 05:55 Current Medications Generic Name Dose Route Start Last Admin Trade Name Freq PRN Reason Stop Dose Admin Albuterol Sulfate 1 amp 05/29/19 10:59 Ventolin 0.083% Nebulizer Soln - NEB Q6H PRN SHORTNESS OF BREATH Carvedilol 3.125 mg 05/30/19 11:49 Coreg - PO BID [facility] Citric Acid/Sodium Citrate 30 ml 05/30/19 12:00 05/30/19 13:50 Bicitra Oral Solution - PO 30 ml DAILY [facility] Administration Clopidogrel Bisulfate 75 mg 05/28/19 19:15 05/30/19 09:13 Plavix - PO 75 mg DAILY [facility] Administration Colchicine 0.6 mg 05/30/19 16:45 05/30/19 17:05 Colcrys PO 05/31/19 06:01 0.6 mg BID@0600,1800 [facility] Administration Colchicine 0.6 mg 06/01/19 10:00 Colcrys PO DAILY [facility] Docusate Sodium 200 mg 05/30/19 22:00 Colace - PO HS [facility] Escitalopram Oxalate 20 mg 05/29/19 10:00 05/30/19 09:14 Lexapro - PO 20 mg DAILY [facility] Administration Piperacillin Sod/Tazobactam 50 mls @ 100 mls/hr 05/29/19 18:00 05/30/19 17:06 Sod 3.375 gm/ Dextrose IVPB 100 mls/hr Q8H-IV [facility] Administration Protocol Sodium Chloride 1,000 mls @ 40 mls/hr 05/30/19 14:25 05/30/19 14:55 1/2 Normal Saline IV 40 mls/hr ASDIR [facility] Administration Insulin Aspart 1 vial 05/28/19 22:00 05/30/19 17:05 Novolog Vial Sliding Scale - SQ 12 units ACHS [facility] Administration Protocol Melatonin 5 mg 05/28/19 03:05 05/29/19 22:42 Melatonin PO 5 mg HS PRN Administration INSOMNIA Melatonin 5 mg 05/30/19 22:00 Melatonin PO 05/30/19 22:01 HS ONE Non-Formulary Medication 100 mg 05/29/19 10:00 Droxidopa [Northera] PO DAILY [facility] Polyethylene Glycol 17 gm 05/30/19 12:00 05/30/19 13:47 Miralax (For Daily Use) - PO 17 grams BID [facility] Administration Prednisone 20 mg 05/28/19 22:00 05/30/19 09:14 Deltasone - PO 05/31/19 10:01 20 mg BID [facility] Administration Prednisone 15 mg 05/31/19 22:00 Deltasone - PO 06/03/19 10:01 BID [facility] Prednisone 10 mg 06/03/19 22:00 Deltasone - PO 06/06/19 10:01 BID [facility] Prednisone 10 mg 06/07/19 10:00 Deltasone - PO 06/09/19 10:01 DAILY [facility] Tamsulosin HCl 0.4 mg 05/29/19 08:30 05/30/19 09:13 Flomax - PO 0.4 mg DAILY@0830 [facility] Administration Home Medications Medication Instructions Recorded Carvedilol 3.125 mg PO BID 12/08/18 Escitalopram Oxalate [Lexapro -] 20 mg PO DAILY 12/08/18 Rosuvastatin Calcium [Crestor] 20 mg PO HS 12/08/18 Insulin Glargine,Hum.rec.anlog 58 units SQ HS 01/11/19 [Lantus Solostar PEN -] Tamsulosin HCl 0.4 mg PO DAILY 01/11/19 Albuterol 0.083% Nebulizer Fatuma 1 amp NEB ONCE 04/07/19 [Ventolin 0.083% Nebulizer Soln -] Clopidogrel Bisulfate [Clopidogrel] 75 mg PO DAILY 04/07/19 Droxidopa [Northera] 100 mg PO DAILY 04/07/19 Insulin Lispro [Humalog Ponce 10 - 34 unit SQ TID 04/07/19 Kwikpen] Melatonin 10 mg PO HS 04/07/19 Sacubitril/Valsartan [Entresto 24 1 each PO BID 04/07/19 mg-26 mg Tablet] predniSONE [Deltasone -] 10 mg PO ASDIR #40 tab 05/22/19 EKG shows NSR, 1o AV block and nonspecific ST-T wave changes. ECHO. Last echo EF 25-30% US: negative duplex of carotid: negative CT of the chest: Patchy infiltrate within both bases and right middle lobe. New nodule RUL which could be mucus plugging. follow up resolution imaging Cardiac cabg, pacing wires. patchy infiltrates within the right base, left base, and RML. 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 Hiatal hernia with oral contrast within the distal esophagus and stomach spondylotic changes of the spine, no aggressive lesions noted Assessment and plan: Patient is a 78yom with PMHx of HTN, HLD, insulin treated DM, CAD s/p CABG, HFrEF, ICD, PAD s/p femorla/popliteal bypass, PUD s/p Bilroth II gastrectomy, achalasia s/p Heller myotomy), COPD, gout, CKD 3B, BPH and depression c/o loss of balance at home. # Pre-syncope most likely vasovagal with a hx of orthostatic HTN , neuro Consult appreciated # RML infiltrate continue zosyn 3.375gm now, comfortable, will have him evaluated for swallowing evaluation asince patient has a hx of achalasia. by Mita jeff in am . to avoid further aspiration . # APRYL on CKD ,cr 1.7-->1.3 ,consult nephrology, will hold Entresto for now, will evaluate in am. # acute Transaminitis: most likely due to liver congestion with possible acute over systolic CHF with EJF of 25-30%, AST/ALT 100/153, RUQ US #T2DM: Hold home regimen, ISS ACHS # HTN: on coreg, continue # HLD: Cont. current home regimen DVT prophylaxis: Heparin SQ Full code As per donavan and who has the patient in the past, recommeded him to follow up with Catheter Builder Dr. Yung Aponte from [facility]: [phone] An appointment has been scheduled for June 06 at 2:20PM. A referral has been provided. Address [address] [place] [address], [place] [address] You can also follow up with Dr Jean Nieves at [facility] . You may call [phone] to schedule an appointment. Follow a soft diet with nectar thickened liquids. Eat small amounts at a time, sitting upright in a chair, and remain upright at least two hours after eating. Eat several small meals throughout the day. discharge patient home.
[2019-05-31] MEDS ORDERED: predniSONE 5 MG TABLET (UD) PO SCH (22:00)
[2019-06-01] MEDS ORDERED: COLCHICINE 0.6 MG CAP PO SCH (10:00)
[2019-06-03] MEDS ORDERED: predniSONE 10 MG TABLET (UD) PO SCH (22:00)
[2019-06-07] MEDS ORDERED: predniSONE 10 MG TABLET (UD) PO SCH (10:00)
== END 2019-05-31 18:23 | disposition home or self-care (01) | DRG 683 ==
LOC: JER 11:14 → JERBED 17:27 → J4S 05-28 15:19
PROVIDERS: ADMIT Internal Medicine; ATTEND Internal Medicine
DX: N17.9 Acute kidney failure, unspecified (principal); I50.20 Unspecified systolic (congestive) heart failure; J98.11 Atelectasis; I13.0 Hypertensive heart and chronic kidney disease with heart failure and stage 1 through stage 4 chronic kidney disease, or unspecified chronic kidney disease; E46 Unspecified protein-calorie malnutrition; N18.3 Chronic kidney disease, stage 3 (moderate); E87.5 Hyperkalemia; R74.0 Nonspecific elevation of levels of transaminase and lactic acid dehydrogenase [LDH]; E11.9 Type 2 diabetes mellitus without complications; R55 Syncope and collapse; E78.5 Hyperlipidemia, unspecified; I25.10 Atherosclerotic heart disease of native coronary artery without angina pectoris; Z95.1 Presence of aortocoronary bypass graft; N40.0 Benign prostatic hyperplasia without lower urinary tract symptoms; D72.829 Elevated white blood cell count, unspecified; D69.6 Thrombocytopenia, unspecified; J44.9 Chronic obstructive pulmonary disease, unspecified; E86.0 Dehydration; Z68.23 Body mass index [BMI] 23.0-23.9, adult; R62.7 Adult failure to thrive; E88.09 Other disorders of plasma-protein metabolism, not elsewhere classified
CPT/HCPCS: 36415; 70450-TC; 71045-TC-FY; 71250-TC; 73610-TC-LT-FY; 74230-TC-FY; 76705-TC; 80048; 80053; 81003; 82550; 82962; 83690; 83735; 83880; 84100; 84443; 84484; 85025; 85027; 85610; 85730; 87040; 87070; 87186; 87205; 87804; 87899; 92611-GN; 93005; 93010; 93306-TC; 93880-TC; 93922; 93925-TC; 94640; 97116-GP; 97162-GP; 99285-25; J1644

== ENCOUNTER 2019-11-30 07:06 | Inpatient (IN) | payer OTHER, MEDICARE ==
--- NOTE | 2019-11-30 08:04 | PDOC ---
History of Present Illness - General Chief Complaint: Injury Stated Complaint: FALL Time Seen by Provider: 11/30/19 07:37 - History of Present Illness Initial Comments: Juanito Gates is a 79 y/o male with PMH significant for HTN, HLD, DM, CAD s/p CABG, HFrEF, ICD, PAD s/p fem/pop, PUD s/p Bilroth II gastrectomy, achalasia s/p Heller myotomy, COPD, gout, CKD IIIB, BPH, brought in s/p fall. Reports that he fell about an hour ago at home. States that he has frequent falls and last fall was 2 weeks ago. Reports that he felt like he lost consciousness for around 2 seconds prior to falling and states that his blood pressure is low which causes him to fall. Reports that he hit the back of his head and fell on his left side. Reports pain over the left elbow and left wrist and left hip. No chest pain. No dizziness. No abd pain. No headache. No diarrhea/dysuria. No decreased appetite. No back pain. Past History - Medical History Allergies/Adverse Reactions: Allergies Allergy/AdvReac Type Severity Reaction Status Date / Time pregabalin [From Lyrica] Allergy Severe Verified 11/30/19 07:39 Home Medications: Ambulatory Orders Carvedilol 3.125 mg PO BID 12/08/18 Escitalopram Oxalate [Lexapro -] 20 mg PO DAILY 12/08/18 Rosuvastatin Calcium [Crestor] 20 mg PO HS 12/08/18 Tamsulosin HCl 0.4 mg PO DAILY 01/11/19 Clopidogrel Bisulfate [Clopidogrel] 75 mg PO DAILY 04/07/19 Melatonin 10 mg PO HS 04/07/19 Sacubitril/Valsartan [Entresto 24 mg-26 mg Tablet] 1 each PO BID 04/07/19 Albuterol Sulfate [Proair Digihaler] 2 puff NEB TID PRN 05/31/19 Bimatoprost [Lumigan] 1 drop DAILY 05/31/19 Citric Acid/Sodium Citrate [Bicitra Oral Solution -] 30 ml PO DAILY #120 oz 05/31/19 Colchicine [Colcrys] 0.6 mg PO DAILY cap 05/31/19 Furosemide 20 mg PO DAILY 05/31/19 Insulin Glargine,Hum.rec.anlog [Lantus Solostar PEN -] 20 units SQ AM #1 vial 05/31/19 Polyethylene Glycol 3350 [Miralax 119 gm Btl -] 17 gm PO BID bottle 05/31/19 Albuterol 0.083% Nebulizer Fatuma [Ventolin 0.083%] 1 neb NEB QID 11/30/19 Budesonide/Formeterol Fumarate [SYMBICORT 160/4.5mcg -] 1 inh PO BID 11/30/19 Anemia: No Asthma: No Cancer: No Cardiac Disorders: Yes (4 stents, triple bypass) CVA: No COPD: No CHF: Yes Dementia: No Diabetes: Yes GI Disorders: No Disorders: No HTN: Yes Hypercholesterolemia: Yes Kidney Stones: No Liver Disease: No Psychiatric Problems: No Seizures: No Thyroid Disease: No Lung CA: No - Surgical History Abdominal Surgery: Yes (PARTIAL GASTRECTOMY,H/O ULCERS EGD BIOPSY 2009,EGD H-PYLORI 2006,COLON 2003) Appendectomy: Yes Cardiac Surgery: Yes Cholecystectomy: Yes Lung Surgery: Yes (ICD,STENTS ,TRIPLE BYPASS) Neurologic Surgery: No Orthopedic Surgery: No - Reproductive History Testicular Surgery: Yes - Immunization History Immunization Up to Date: Yes - Psycho-Social/Smoking History Smoking Status: Yes Smoking History: Former smoker Years of Tobacco Use: 50 Have you smoked in the past 12 months: No Number of Cigarettes Smoked Daily: 30 If you are a former smoker, when did you quit?: 2017 Cigars Per Day: 20 Information on smoking cessation initiated: No 'Breaking Loose' booklet given: 05/28/19 - Substance Abuse Hx (Audit-C & DAST Scrn) How often the patient has a drink containing alcohol: Never Score: In Men: 4 or > Positive; In Women: 3 or > Positive: 0 Screen Result (Pos requires Nsg. Audit-10AR): Negative In the last yr the pt used illegal drug/Rx for NonMed reason: No Score: Yes response is considered Positive: 0 Screen Result (Positive result requires Nsg. DAST-10): Negative Review of Systems - Review of Systems Comments:: GENERAL/CONSTITUTIONAL: No fever or chills. No weakness._ HEAD, EYES, EARS, NOSE AND THROAT: No change in vision. No change in hearing. No sore throat._ CARDIOVASCULAR: No chest pain or shortness of breath_ RESPIRATORY: Denies cough, hemoptysis_ GASTROINTESTINAL: No nausea, vomiting, diarrhea or constipation._ GENITOURINARY: No dysuria, frequency, or change in urination._ MUSCULOSKELETAL: Reports left elbow, left wrist, left hip pain. SKIN: No rash_ NEUROLOGIC: Reports lightheadedness and loss of consciousness. No headache or change in strength/sensation._ ENDOCRINE: No increased thirst. No abnormal weight change_ HEMATOLOGIC/LYMPHATIC: No anemia, easy bleeding, or history of blood clots._ ALLERGIC/IMMUNOLOGIC: No hives or skin allergy._ *Physical Exam - Vital Signs Last Vital Signs Temp Pulse Resp BP Pulse Ox 97.9 F 55 L 121/79 100 11/30/19 07:10 11/30/19 07:10 11/30/19 07:10 11/30/19 07:10 - Physical Exam GENERAL: Awake, alert, and oriented to person/place/time, in no acute distress_ HEAD: No signs of trauma, normocephalic, atraumatic. No lacerations or hematoma. EYES: PERRLA, EOMI, sclera anicteric, conjunctiva clear_ ENT: Hearing grossly normal, nares patent, oropharynx clear without exudates. No uvular deviation. Moist mucosa_ NECK: Normal ROM, supple, no lymphadenopathy, JVD, or masses. No c-spine TTP. LUNGS: No distress, speaks in full sentences, clear to auscultation bilaterally _ HEART: Regular rate and rhythm, normal S1 and S2, no murmurs appreciated, peripheral pulses normal and equal bilaterally._ ABDOMEN: Soft, nontender, normoactive bowel sounds. No guarding, no rebound. No masses_ EXTREMITIES: Reports tenderness over the left elbow, left wrist, and left hip. Unable to assess leg shortening as pt states that keeping his legs bent is more comfortable. Neurovascularly intact distally in upper and lower extremities. Unable to ROM left upper/lower extremity 2/2 pain. NEUROLOGICAL: Cranial nerves II through XII grossly intact. Normal speech, no focal sensorimotor deficits _ SKIN: Warm, Dry, normal turgor, no rashes or lesions noted_ ED Treatment Course - LABORATORY CBC & Chemistry Diagram: 11/30/19 08:35 11/30/19 08:35 Medical Decision Making - Medical Decision Making 11/30/19 08:15 79M presenting today with s/p fall. Reports brief syncope prior to fall. Reports hitting the back of his head. TTP over left elbow/wrist/hip NVID. DDx includes fall 2/2 vasovagal vs cardiogenic syncope vs hypotension vs underlying cardiac etiology. Plan to admit. -labs -coags -EKG -trop -CXR -type and screen -CT head/neck -XR left elbow, wrist, hip -morphine 11/30/19 10:01 Labs reviewed. Laboratory Last Values WBC 6.9 K/mm3 (4.0-10.0) 11/30/19 08:35 RBC 4.41 M/mm3 (4.00-5.60) 11/30/19 08:35 Hgb 11.4 GM/dL (11.7-16.9) L 11/30/19 08:35 Hct 34.3 % (35.4-49) L 11/30/19 08:35 MCV 78.0 fl (80-96) L 11/30/19 08:35 MCH 25.8 pg (25.7-33.7) 11/30/19 08:35 MCHC 33.1 g/dl (32.0-35.9) 11/30/19 08:35 RDW 17.6 % (11.9-15.9) H 11/30/19 08:35 Plt Count 169 K/MM3 (134-434) 11/30/19 08:35 MPV 7.9 fl (7.5-11.1) 11/30/19 08:35 Absolute Neuts (auto) 5.2 K/mm3 (1.5-8.0) 11/30/19 08:35 Neutrophils % 75.3 % (42.8-82.8) 11/30/19 08:35 Lymphocytes % 17.6 % (8-40) D 11/30/19 08:35 Monocytes % 5.0 % (3.8-10.2) 11/30/19 08:35 Eosinophils % 1.3 % (0-4.5) D 11/30/19 08:35 Basophils % 0.8 % (0-2.0) 11/30/19 08:35 Nucleated RBC % 0 % (0-0) 11/30/19 08:35 PT with INR 12.00 SEC (9.7-13.0) 11/30/19 08:35 INR 1.02 (0.83-1.09) 11/30/19 08:35 PTT (Actin FS) 28.2 SECONDS (25.2-36.5) 11/30/19 08:35 Sodium 142 mmol/L (136-145) 11/30/19 08:35 Potassium 4.2 mmol/L (3.5-5.1) 11/30/19 08:35 Chloride 114 mmol/L (98-107) H 11/30/19 08:35 Carbon Dioxide 19 mmol/L (21-32) L 11/30/19 08:35 Anion Gap 10 MMOL/L (8-16) 11/30/19 08:35 BUN 36.0 mg/dL (7-18) H 11/30/19 08:35 Creatinine 1.4 mg/dL (0.55-1.3) H 11/30/19 08:35 Est GFR (CKD-EPI)AfAm 55.77 11/30/19 08:35 Est GFR (CKD-EPI)NonAf 48.12 11/30/19 08:35 Random Glucose 142 mg/dL (74-106) H 11/30/19 08:35 Calcium 9.1 mg/dL (8.5-10.1) 11/30/19 08:35 Total Bilirubin 0.4 mg/dL (0.2-1) 11/30/19 08:35 AST 21 U/L (15-37) 11/30/19 08:35 ALT 37 U/L (13-61) 11/30/19 08:35 Alkaline Phosphatase 76 U/L (45-117) 11/30/19 08:35 Creatine Kinase 33 U/L (26-308) 11/30/19 08:35 Troponin I < 0.02 ng/ml (0.00-0.05) 11/30/19 08:35 Total Protein 6.9 g/dl (6.4-8.2) 11/30/19 08:35 Albumin 3.3 g/dl (3.4-5.0) L 11/30/19 08:35 11/30/19 10:04 XR hip/pelvis shows acute left femoral neck fracture. XR left elbow, wrist, hand shows no acute fracture or dislocation. 11/30/19 10:06 CXR negative for acute chest pathology. 11/30/19 10:35 CT head negative for acute intracranial pathology. CT neck negative for acute fracture. 11/30/19 11:05 D/w Dr. Leung who will evaluate the patient. Requests that plavix be held at t his time. D/w Dr. Pinzon who accepts the patient for admission. 11/30/19 11:06 EKG shows 62 bpm, NSR, incomplete LBBB, WI 206, QTc 458, no ST elevation. Discharge - Discharge Information Problems reviewed: Yes Clinical Impression/Diagnosis: Hip fracture, left Qualifiers: Encounter type: initial encounter Fracture type: closed Qualified Code(s): S72.002A - Fracture of unspecified part of neck of left femur, initial encounter for closed fracture Syncope Qualifiers: Syncope type: unspecified Qualified Code(s): R55 - Syncope and collapse Fall Qualifiers: Encounter type: initial encounter Qualified Code(s): W19.XXXA - Unspecified fall, initial encounter Condition: Stable - Admission Yes - Follow up/Referral - Patient Discharge Instructions - Post Discharge Activity
[2019-11-30] MEDS ORDERED: morphine SULFATE 4 MG/ML VIAL ONE (08:50)
[2019-11-30] MEDS ORDERED: morphine CARPU-JECT 4 MG/1 ML DISP.SYRIN IVPUSH ONE (08:51)
[2019-11-30 08:57] LABS: BASO % 0.8 % (0-2.0); EOS % 1.3 % (0-4.5); HEMATOCRIT 34.3 % (35.4-49); HEMOGLOBIN 11.4 GM/dL (11.7-16.9); LYMPH % 17.6 % (8-40); MCH 25.8 pg (25.7-33.7); MCHC 33.1 g/dl (32.0-35.9); MEAN PLT VOLUME 7.9 fl (7.5-11.1); NEUT % 75.3 % (42.8-82.8); PLATELET COUNT 169 K/MM3 (134-434); RBC 4.41 M/mm3 (4.00-5.60); RDW 17.6 % (11.9-15.9); WHITE BLOOD COUNT 6.9 K/mm3 (4.0-10.0)
[2019-11-30 09:02] LABS: INR 1.02 (0.83-1.09)
[2019-11-30 09:05] LABS: ACTIVATED PTT 28.2 SECONDS (25.2-36.5)
[2019-11-30 09:34] LABS: ALBUMIN 3.3 g/dl (3.4-5.0); ALK PHOS 76 U/L (45-117); ANION GAP 10 MMOL/L (8-16); BILIRUBIN,TOTAL 0.4 mg/dL (0.2-1); CALCIUM 9.1 mg/dL (8.5-10.1); CHLORIDE 114 mmol/L (98-107); CO2 19 mmol/L (21-32); CREATININE 1.4 mg/dL (0.55-1.3); GLUCOSE,RANDOM 142 mg/dL (74-106); POTASSIUM 4.2 mmol/L (3.5-5.1); SGOT/AST 21 U/L (15-37); SGPT/ALT 37 U/L (13-61); SODIUM 142 mmol/L (136-145); TOT PROT 6.9 g/dl (6.4-8.2)
--- NOTE | 2019-11-30 09:41 | PDOC ---
Documentation entered by Tawnya Uribe SCRIBE, acting as scribe for Brandon Álvarez MD. Brandon Álvarez MD: This documentation has been prepared by the Jojo looney Brenda, SCRIBE, under my direction and personally reviewed by me in its entirety. I confirm that the documentation accurately reflects all work, treatment, procedures, and medical decision making performed by me. Attending Attestation - Resident Resident Name: Raymundo Padgett - ED Attending Attestation I have performed the following: I have examined & evaluated the patient, The case was reviewed & discussed with the resident, I agree w/resident's findings & plan, Exceptions are as noted - HPI HPI: 11/30/19 09:31 The patient is a 79 year old male with a significant PMH of HTN, HLD, DM, CAD s/p CABG, HfrEF, ICD, PAS s/p fem/pop, PUD s/p Bilroth 2 gastrectomy, achlasia s/p Heller myotomy, COPD, gout, CKD IIIB and BPH who presents to the ED BIBA for evaluation s/p fall one hour ago at home. He reports hitting the back of his head and his left side, and now endorses left hip, left elbow and left wrist pain Patient does endorse frequent falls in the past, with the last one being 2 weeks ago. Patient notes that he feels like he lost consciousness for a few seconds right before he fell. He does also note that his BP is low which he states is the cause of his fall. The patient denies chest pain, shortness of breath. Denies fever, chills, nausea, vomiting, diarrhea and constipation. Denies dysuria, frequency, urgency and hematuria. - Physicial Exam PE: 11/30/19 09:54 See resident exam - Medical Decision Making 11/30/19 09:54 79 M with syncopal episode and fall. - Labs - CTs, XRs - Admit tele Discharge - Discharge Information Problems reviewed: Yes Clinical Impression/Diagnosis: Hip fracture, left Qualifiers: Encounter type: initial encounter Fracture type: closed Qualified Code(s): S72.002A - Fracture of unspecified part of neck of left femur, initial encounter for closed fracture Syncope Qualifiers: Syncope type: unspecified Qualified Code(s): R55 - Syncope and collapse Fall Qualifiers: Encounter type: initial encounter Qualified Code(s): W19.XXXA - Unspecified fall, initial encounter Condition: Stable - Follow up/Referral - Patient Discharge Instructions - Post Discharge Activity
[2019-11-30] MEDS ORDERED: morphine CARPU-JECT 2 MG/1 ML DISP.SYRIN IVPUSH ONE (10:35)
[2019-11-30] MEDS ORDERED: MORPHINE SULFATE 2 MG/ML VIAL ONE (10:43)
--- NOTE | 2019-11-30 11:48 | PN ---
Teaching Attending Note Name of Resident: Ashley Pinzon ATTENDING PHYSICIAN STATEMENT I saw and evaluated the patient. I reviewed the resident's note and discussed the case with the resident. I agree with the resident's findings and plan as documented. SUBJECTIVE: 79 year old male with known history of hypertension, hyperlipidemia, DM 2, CAD sp CABG, ICM sp ICD placement, PAD sp femoral-pop bypass, PUD sp Billroth II gatrectomy, achalasia, sp Heller Myotomy, COPD, CKD stage III, BPH who presents to the ED after a fall. He reports that he was already seated in his bed when he fell forward and fell to the ground. He denies any symptoms such as chest pain, lightheadedness, dizziness, SOB prior to the fall. He denied LOC. He immediately felt pain on the left hip. At the ED, found to have an acute left femoral fracture OBJECTIVE: Gen appears appropriate for stated age, frail, not in acute distress HEENT: EOMI neck: no JVD elevation, supple CVS: RRR, with extra heart sounds occasionally; no murmurs chest/Resp: palpable subcutaneous device at the left upper quadrant of the anterior chest (ICD); diminished breath sounds abd: soft, nontender, nondistended, +BS ext: very tender left lower extremity even with mild touch. The left hip and proximal lateral thigh with soft tissue swelling. Able to move upper extremities. 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 Acute left femoral fracture after a fall - cardiovascular risk exam as per public affairs manager Dr Morales/partner - pain control - Orthopedic surgeon informed by ED and Dr Pinzon - hold plavix and aspirin - timing of surgery pending 2. DM 2 - SSI for now - 2 gram sodium, 1800 ADA 3. CAD - continuous cardiac monitoring - cont statin, coreg 4. DVT prophylaxis DW Dr Pinzon. Agree with her exam and plans of care.
--- NOTE | 2019-11-30 12:39 | HP ---
CHIEF COMPLAINT: syncope, s/p fall PCP: Dr. Guerra Cardio: Dr. Jayy Morales HISTORY OF PRESENT ILLNESS: 79M w/ pmhx of HTN, HLD, DM, CAD s/p CABG, HFrEF, ICD, PAD s/p fem/pop, PUD s/p Bilroth II gastrectomy, achalasia s/p Heller myotomy, COPD, gout, CKD IIIB, BPH presents in the ED s/p fall. States last night he had a syncopal episode, fell forward and fall. Admits to hitting his head first then landing on his L side. Fall was witnessed by his . States he has an ongoing problem of syncopal episodes leading to at least 7 falls within the past 6 months. Of note, he has been admitted to the hospital for syncopal episodes (last admission 05/30). He denied any prodromal symptoms such as: headache, dizziness, vision change, chest pain, sob, seizure symptoms. Although he states he usually loses consciousness during these falls, last night he did not and reports being aware the entire time. He was unable to stand up due to L leg pain. Pt is adamant that his syncopal episodes are due to his blood pressure. He also reports having chronic diarrhea over the past 5 months for which he take an unknown medication for his symptoms. Says he usually goes 3 days without having any bowel movement, but when he does have a BM, it is loose and watery, but denies blood or black tarry stool. Was supposed to follow up with his GI doctor today. States he follows up with his tight barrel inspector as an outpatient (Dr. Morales) and reports that the last time his pacemaker was interrogated was 2 months ago; with no abnormal results noted. ER course was notable for: (1) VS wnl, BP 121/79, Cr 1.4, trops neg x1 (2) IV Morphine given; LLE xray +L fem neck fx, CTH neg, hand/wrist xray neg, CT C-spine +focal sclerosis L paramedian of C3 vertebral body (3) Ortho consulted; aware Recent Travel: Denies PAST MEDICAL HISTORY: As per HPI PAST SURGICAL HISTORY: s/p CABG, 4 cardiac stents RLE angioplasty w/ stent Bilroth II gastrectomy PPM Social History: Smoking: Quit smoking 3 years ago; former 4 PPD x40 years Alcohol: Denies Drugs: Denies Lives with Allergies pregabalin [From Lyrica] Allergy (Severe, Verified 11/30/19 07:39) vertigo/fainted HOME MEDICATIONS: Home Medications Medication Instructions Recorded Carvedilol 3.125 mg PO BID 12/08/18 Escitalopram Oxalate [Lexapro -] 20 mg PO DAILY 12/08/18 Rosuvastatin Calcium [Crestor] 20 mg PO HS 12/08/18 Tamsulosin HCl 0.4 mg PO DAILY 01/11/19 Clopidogrel Bisulfate [Clopidogrel] 75 mg PO DAILY 04/07/19 Melatonin 10 mg PO HS 04/07/19 Sacubitril/Valsartan [Entresto 24 1 each PO BID 04/07/19 mg-26 mg Tablet] Albuterol Sulfate [Proair 2 puff NEB TID PRN 05/31/19 Digihaler] Bimatoprost [Lumigan] 1 drop DAILY 05/31/19 Citric Acid/Sodium Citrate 30 ml PO DAILY #120 oz 05/31/19 [Bicitra Oral Solution -] Colchicine [Colcrys] 0.6 mg PO DAILY cap 05/31/19 Furosemide 20 mg PO DAILY 05/31/19 Insulin Glargine,Hum.rec.anlog 20 units SQ AM #1 vial 05/31/19 [Lantus Solostar PEN -] Polyethylene Glycol 3350 [Miralax 17 gm PO BID bottle 05/31/19 119 gm Btl -] REVIEW OF SYSTEMS CONSTITUTIONAL: Absent: fever, chills, diaphoresis, generalized weakness, malaise, loss of appetite, weight change HEENT: Absent: rhinorrhea, nasal congestion, throat pain, throat swelling, difficulty swallowing, mouth swelling, ear pain, eye pain, visual changes CARDIOVASCULAR: Absent: chest pain, syncope, palpitations, irregular heart rate, lightheadedness, peripheral edema RESPIRATORY: Absent: cough, shortness of breath, dyspnea with exertion, orthopnea, wheezing, stridor, hemoptysis GASTROINTESTINAL: Absent: abdominal pain, abdominal distension, nausea, vomiting, diarrhea, constipation, melena, hematochezia GENITOURINARY: Absent: dysuria, frequency, urgency, hesitancy, hematuria, flank pain, genital pain MUSCULOSKELETAL: L hip pain Absent: myalgia, arthralgia, joint swelling, back pain, neck pain SKIN: Absent: rash, itching, pallor HEMATOLOGIC/IMMUNOLOGIC: Absent: easy bleeding, easy bruising, lymphadenopathy, frequent infections ENDOCRINE: Absent: unexplained weight gain, unexplained weight loss, heat intolerance, cold intolerance NEUROLOGIC: Absent: headache, focal weakness or paresthesias, dizziness, unsteady gait, seizure, mental status changes, bladder or bowel incontinence PSYCHIATRIC: Absent: anxiety, depression, suicidal or homicidal ideation, hallucinations. PHYSICAL EXAMINATION Vital Signs - 24 hr 11/30/19 07:10 Temperature 97.9 F Pulse Rate 55 L Blood Pressure 121/79 O2 Sat by Pulse 100 Oximetry (%) GENERAL: Elderly male, NAD, mildly uncomfortable in bed. AAOx2 (place, person) HEENT: AT/NC. EOMI. Dry mucus membranes. Appears pale. NECK: Supple, no JVD. LUNGS: CTA b/l. Symmetric chest rise. Good respiratory effort. Speaks in complete sentences. HEART: RRR, normal S1, S2. No murmurs noted. ABDOMEN: Soft,NT/ND. Normoactive bs in all 4 Qs. MUSCULOSKELETAL: Unable to move LLE due to pain. B/l sensation intact. EXTREMITIES: L hip swelling, no bruising/masses/lesions. L hip externally rotated. 2+ DP pulses. Unable to move LLE due to pain. Good ROM in RLE. NEUROLOGICAL: Cranial nerves II-XII intact. Normal speech. SKIN: Warm, dry, normal turgor, no rashes or lesions noted, normal capillary refill. CBCD WBC 6.9 K/mm3 (4.0-10.0) 11/30/19 08:35 RBC 4.41 M/mm3 (4.00-5.60) 11/30/19 08:35 Hgb 11.4 GM/dL (11.7-16.9) L 11/30/19 08:35 Hct 34.3 % (35.4-49) L 11/30/19 08:35 MCV 78.0 fl (80-96) L 11/30/19 08:35 MCHC 33.1 g/dl (32.0-35.9) 11/30/19 08:35 RDW 17.6 % (11.9-15.9) H 11/30/19 08:35 Plt Count 169 K/MM3 (134-434) 11/30/19 08:35 MPV 7.9 fl (7.5-11.1) 11/30/19 08:35 CMP Sodium 142 mmol/L (136-145) 11/30/19 08:35 Potassium 4.2 mmol/L (3.5-5.1) 11/30/19 08:35 Chloride 114 mmol/L (98-107) H 11/30/19 08:35 Carbon Dioxide 19 mmol/L (21-32) L 11/30/19 08:35 Anion Gap 10 MMOL/L (8-16) 11/30/19 08:35 BUN 36.0 mg/dL (7-18) H 11/30/19 08:35 Creatinine 1.4 mg/dL (0.55-1.3) H 11/30/19 08:35 Calcium 9.1 mg/dL (8.5-10.1) 11/30/19 08:35 Total Bilirubin 0.4 mg/dL (0.2-1) 11/30/19 08:35 AST 21 U/L (15-37) 11/30/19 08:35 ALT 37 U/L (13-61) 11/30/19 08:35 Alkaline Phosphatase 76 U/L (45-117) 11/30/19 08:35 Total Protein 6.9 g/dl (6.4-8.2) 11/30/19 08:35 Albumin 3.3 g/dl (3.4-5.0) L 11/30/19 08:35 IMAGING: * Echo (05/30): Mild conc LVH, no wall motion abn, EF 60-65%, Grade I diastolic dysfxn, pacemaker in RV, mild mitral annular calc, mild MR, mod TR, mild aor scl * Carotid duplex (05/30): no HD significant stenosis * EKG: NSR, low voltage QRS, HR 62, QTc 458 ms, ASSESSMENT/PLAN: 79M w/ pmhx of HTN, HLD, DM, CAD s/p CABG, HFrEF, ICD, PAD s/p fem/pop, PUD s/p Bilroth II gastrectomy, achalasia s/p Heller myotomy, COPD, gout, CKD IIIB, BPH presents in the ED s/p fall admitted for syncope and L femoral neck fx. #Syncope; vasovagal vs. orthostatic -Pt's multiple syncopal episodes over the past 6 months may be multifactorial g iven his significant cardiac history (s/p PPM, stents, CABG) as well as his chronic diarrhea which could also contribute to volume depletion. Additionally, pt was previously on Midodrine but was discontinued for unknown reasons. -Trop neg x1, will trend -Last echo (05/30): showed Grade I diastolic dysfxn, no wall motion abn -Last carotid duplex (05/30): no HD significant stenosis -Will hold home diuretic for now and will monitor volume status daily -Cardiac consult -monitor on tele #L Femoral Neck Fracture -L hip xray +L fem neck fx -Ortho consulted for possible OR -IV Morphine PRN for pain -NPO after midnight -Will consult cardio for cardiac risk assessment given history #HFrEF; NYHA Class I-II, s/p ICD. -Currently appears hypovolemic. Will hold home Lasix 2/2 volume depletion and Plavix for possible surg Cont home meds: Entresto, Carvedilol 3.125 BID, Crestor 20 #HTN/HLD; Cont home meds: Rosuvastatin 20 #IDDM; Will hold home dosages. BGM/ISS ACHS. #CAD; s/p CABG, s/p 4 stents. Cont home meds: Carvedilol 3.125 BID #PAD; No acute issues. #PUD; s/p Bilroth, stable. Will give Protonix 40. #COPD; Cont home meds: Symbicort, Albuterol inhaler #CKD IIB; Cr. 1.4. (previously 1.6 on 10/31/19) -F/u nephro as outpatient #BPH; Cont home meds: Tamsulosin 0.4 #Prophylaxis DVT: SQH GI: Protonix 40 #FEN -PO hydration -recheck lytes in AM -NPO after midnight for possible OR Dispo -Admit to tele Visit type - Medication Review Med list reviewed for High Risk Meds patients 65 and older: Yes - Emergency Visit Emergency Visit: Yes ED Registration Date: 11/30/19 Care time: The patient presented to the Emergency Department on the above date and was hospitalized for further evaluation of their emergent condition. - New Patient This patient is new to me today: Yes Date on this admission: 11/30/19 - Critical Care Critical Care patient: No ATTENDING PHYSICIAN STATEMENT I saw and evaluated the patient. I reviewed the resident's note and discussed the case with the resident. I agree with the resident's findings and plan as documented. SUBJECTIVE: OBJECTIVE: ASSESSMENT AND PLAN:
--- NOTE | 2019-11-30 12:47 | EKG ---
Test Reason : Blood Pressure : / mmHG Vent. Rate : 062 BPM Atrial Rate : 062 BPM P-R Int : 206 ms QRS Dur : 112 ms QT Int : 452 ms P-R-T Axes : 080 004 088 degrees QTc Int : 458 ms POOR DATA QUALITY, INTERPRETATION MAY BE ADVERSELY AFFECTED NORMAL SINUS RHYTHM LOW VOLTAGE QRS INCOMPLETE LEFT BUNDLE BRANCH BLOCK ABNORMAL ECG WHEN COMPARED WITH ECG OF 31-OCT-2019 00:55, WI INTERVAL HAS DECREASED ST NOW DEPRESSED IN ANTERIOR LEADS NONSPECIFIC T WAVE ABNORMALITY NOW EVIDENT IN ANTERIOR LEADS Confirmed by MD JACKLYN, GRETEL ([id number]) on 11/30/2019 12:47:34 PM Referred By: Confirmed By:GRETEL VILLASENOR MD
[2019-11-30 13:20] LABS: PHOSPHOROUS 3.8 mg/dL (2.5-4.9)
[2019-11-30] MEDS ORDERED: ALBUTEROL SULFATE NEB PRN (13:46)
--- NOTE | 2019-11-30 13:54 | CON.CARD ---
Consult Consult Specialty:: Cardiology Referred by:: Hospitalist Lelo Reason for Consultation:: Pre-op CV evaluation - History of Present Illness Chief Complaint: Left hip pain History of Present Illness: Patient is a 78 year old male with underlying history of CAD s/p CABG, PCI/stent, angina pectoris, class 2 NYHA classification LV failure with underlying LV systolic dysfunction, s/p ICD implant, HTN, DM, hypercholesterole gloria, neurocardiogenic syncope noncompliant with Northera who presents with mechanical fall, recurrent syncope w/o prodromal sxs, left hip fracture, reports chronic diarrhea last 5 months. Last office visit 10/12/[address] Morales, denies chest pain, dyspnea, palpitations, orthopnea, PND or LE edema. Last ICD interrogation 11/09/2019 showed no arrhythmias detected. - History Source History Provided By: Patient Limitations to Obtaining History: No Limitations - Past Medical History Cardio/Vascular: Yes: CAD, CHF, HTN, Hyperlipdemia, [place] Pulmonary: Yes: Asthma, Bronchitis, COPD, Pneumonia Gastrointestinal: Yes: Constipation Renal/: Yes: BPH Musculoskeletal: Yes: Chronic low back pain, Osteoarthritis Endocrine: Yes: Diabetes Mellitus - Past Surgical History Past Surgical History: Yes: CABG, Cholecystectomy - Alcohol/Substance Use Hx Alcohol Use: No History of Substance Use: reports: None - Smoking History Smoking history: Former smoker Have you smoked in the past 12 months: No Aproximately how many cigarettes per day: 30 If you are a former smoker, when did you quit?: 2017 - Social History Usual Living Arrangement: With Spouse ADL: Independent Occupation: retired: worked for [employer] History of Recent Travel: No Home Medications - Allergies Allergies/Adverse Reactions: Allergies Allergy/AdvReac Type Severity Reaction Status Date / Time pregabalin [From Lyrica] Allergy Severe Verified 11/30/19 07:39 - Home Medications Home Medications: Ambulatory Orders Carvedilol 3.125 mg PO BID 12/08/18 Escitalopram Oxalate [Lexapro -] 20 mg PO DAILY 12/08/18 Rosuvastatin Calcium [Crestor] 20 mg PO HS 12/08/18 Tamsulosin HCl 0.4 mg PO DAILY 01/11/19 Clopidogrel Bisulfate [Clopidogrel] 75 mg PO DAILY 04/07/19 Melatonin 10 mg PO HS 04/07/19 Sacubitril/Valsartan [Entresto 24 mg-26 mg Tablet] 1 each PO BID 04/07/19 Albuterol Sulfate [Proair Digihaler] 2 puff NEB TID PRN 05/31/19 Bimatoprost [Lumigan] 1 drop DAILY 05/31/19 Citric Acid/Sodium Citrate [Bicitra Oral Solution -] 30 ml PO DAILY #120 oz 05/31/19 Colchicine [Colcrys] 0.6 mg PO DAILY cap 05/31/19 Furosemide 20 mg PO DAILY 05/31/19 Insulin Glargine,Hum.rec.anlog [Lantus Solostar PEN -] 20 units SQ AM #1 vial 05/31/19 Polyethylene Glycol 3350 [Miralax 119 gm Btl -] 17 gm PO BID bottle 05/31/19 Albuterol 0.083% Nebulizer Fatuma [Ventolin 0.083%] 1 neb NEB QID 11/30/19 Budesonide/Formeterol Fumarate [SYMBICORT 160/4.5mcg -] 1 inh PO BID 11/30/19 Review of Systems - Review of Systems Musculoskeletal: reports: Joint Pain (Left hip pain) Vital Signs: Vital Signs Temperature 97.9 F 11/30/19 07:10 Pulse Rate 55 L 11/30/19 07:10 Respiratory Rate Blood Pressure 121/79 11/30/19 07:10 O2 Sat by Pulse Oximetry (%) 100 11/30/19 07:10 Constitutional: Yes: No Distress, Calm Neck: Yes: Supple Respiratory: Yes: Regular, CTA Bilaterally Gastrointestinal: Yes: Soft, Hypoactive Bowel Sounds Cardiovascular: Yes: Regular Rate and Rhythm JVD: No Carotid Bruit: No Heart Sounds: Yes: S1, S2 Extremities: Yes: External Rotation, Shortened - Other Data Labs, Other Data: CBC, BMP 11/30/19 08:35 11/30/19 08:35 INR, PTT INR 1.02 (0.83-1.09) 11/30/19 08:35 Troponin, BNP 11/30/19 08:35 Troponin I < 0.02 Troponin, BNP 11/30/19 08:35 Troponin I < 0.02 NSR @ 62 incomplete LBBB Ejection Fraction %: LVEF < 40 % Imaging - Results Chest X-ray: Report Reviewed (NAD) Problem List - Problems (1) Pre-operative cardiovascular examination, ICD in place Code(s): Z01.810 - ENCOUNTER FOR PREPROCEDURAL CARDIOVASCULAR EXAMINATION; Z95.810 - PRESENCE OF AUTOMATIC (IMPLANTABLE) CARDIAC DEFIBRILLATOR (2) CAD (coronary artery disease) Code(s): I25.10 - ATHSCL HEART DISEASE OF [place] CORONARY ARTERY W/O ANG PCTRS Qualifiers: Coronary Disease-Associated Artery/Lesion type: [place] artery [place] vs. transplanted heart: pal[place] heart Associated angina: without angina Qualified Code(s): I25.10 - Atherosclerotic heart disease of [place] coronary artery without angina pectoris (3) COPD (chronic obstructive pulmonary disease) Code(s): J44.9 - CHRONIC OBSTRUCTIVE PULMONARY DISEASE, UNSPECIFIED Qualifiers: COPD type: unspecified COPD Qualified Code(s): J44.9 - Chronic obstructive pulmonary disease, unspecified (4) History of percutaneous coronary intervention Code(s): Z98.890 - OTHER SPECIFIED POSTPROCEDURAL STATES (5) Hx of CABG Code(s): Z95.1 - PRESENCE OF AORTOCORONARY BYPASS GRAFT (6) ICD (implantable cardioverter-defibrillator) in place Code(s): Z95.810 - PRESENCE OF AUTOMATIC (IMPLANTABLE) CARDIAC DEFIBRILLATOR (7) Ischemic cardiomyopathy Code(s): I25.5 - ISCHEMIC CARDIOMYOPATHY (8) Recurrent falls Code(s): R29.6 - REPEATED FALLS (9) Acute on chronic renal insufficiency Code(s): N28.9 - DISORDER OF KIDNEY AND URETER, UNSPECIFIED; N18.9 - CHRONIC KI DNEY DISEASE, UNSPECIFIED (10) Orthostatic hypotension Code(s): I95.1 - ORTHOSTATIC HYPOTENSION Assessment/Plan 11/21/2019 Echo: Normal LV size with mild LVH and mild decreased LVEF 45-50%, grade I diastolic dysfunction, mild LAE, tr MR, mild-mod TR, mild DC RVSP 34 mmHg Echocardiography (10/15/18): Moderately reduced LV systolic function, LVEF 40-45%, grade 1 diastolic dysfunction, mild , mild MR, moderate TR, mild DC and pulmonary HTN. 1. Pre-op evaluation left IM nail for femoral neck hip fracture, ASA III 2. Chronic LV systolic heart failure (ischemic cardiomyopathy EF 45-50%) 3. CAD s/p [place], CABG, PCI/stents, angina pectoris 4. Post ICD implant 5. HTN 6. Hypercholesterolemia 7. T2DM 8. Acute on CKD stage 3 9. PAD s/p fem-pop bypass and [employer] 10. COPD 11. PUD s/p Bilroth II gastrectomy 12. Achalasia s/p Heller's myomectomy 13. Gout 14. Kidney stones 15. Orthostatic hypotension on Northera 16. Gait disturbance PLAN: 1. Given absence of symptoms of acute coronary syndrome, decompensated CHF or malignant arrhythmia, may proceed with left IM nail from CV-standpoint w/o further testing, place magnet over ICD to disable ICD function intraoperatively 2. Change Entresto 24/26 mg BID to Diovan 40 qd given LV fxn recovery, hold Plavix 75 mg QD pending surgery, continue Coreg 3.125 mg BID and Crestor 20 mg QHS. Monitor orthostasis, has not been taking Northera 100 qd, hold Lasix 20 qd pre-op, change Flomax to evening dosing to minimize symptomatic orthostasis 3. DVT prophylaxis and analgesia as needed 4. Eventual f/u with Dr. Morales in office 5. Thank you for consultative opportunity
--- NOTE | 2019-11-30 15:43 | CON.NEURO ---
Consult Consult Specialty:: Rahul Referred by:: - History of Present Illness Chief Complaint: Fall History of Present Illness: isit very pleasant 79-year-old right-handed man well known to me came in unfortunately to [facility] today with a chief complaint of status post fall actually I was called by the and the son patient of davidwith multiple medical problem including CAD s/p CABG, PCI/stent, angina pectoris, class 2 NYHA classification LV failure with underlying LV systolic dysfunction, s/p ICD implant, HTN, DM and hypercholesterolemia I evaluated the patient is thousand 19 in 2019 he is not very compliant with his neurological care patient woke up this morning with no chest pain no palpitation patient fell to the floor patient was evaluated in the emergency room by cardiology. Unfortunately patient fell on the left side with fracture to the leftfemur neck. Patient is due for reduction internal fixation by orthopedic. - History Source History Provided By: Family Member, Transfer Record Limitations to Obtaining History: No Limitations - Past Medical History Cardio/Vascular: Yes: CAD, CHF, HTN, Hyperlipdemia, [place] Pulmonary: Yes: Asthma, Bronchitis, COPD, Pneumonia Gastrointestinal: Yes: Constipation Renal/: Yes: BPH Musculoskeletal: Yes: Chronic low back pain, Osteoarthritis Endocrine: Yes: Diabetes Mellitus - Past Surgical History Past Surgical History: Yes: CABG, Cholecystectomy - Alcohol/Substance Use Hx Alcohol Use: No History of Substance Use: reports: None - Smoking History Smoking history: Former smoker Have you smoked in the past 12 months: No Aproximately how many cigarettes per day: 30 If you are a former smoker, when did you quit?: 2017 - Social History Usual Living Arrangement: With Spouse ADL: Independent Occupation: retired: worked for [employer] History of Recent Travel: No Home Medications - Allergies Allergies/Adverse Reactions: Allergies Allergy/AdvReac Type Severity Reaction Status Date / Time pregabalin [From Lyrica] Allergy Severe Verified 11/30/19 07:39 - Home Medications Home Medications: Ambulatory Orders Carvedilol 3.125 mg PO BID 12/08/18 Escitalopram Oxalate [Lexapro -] 20 mg PO DAILY 12/08/18 Rosuvastatin Calcium [Crestor] 20 mg PO HS 12/08/18 Tamsulosin HCl 0.4 mg PO DAILY 01/11/19 Clopidogrel Bisulfate [Clopidogrel] 75 mg PO DAILY 04/07/19 Melatonin 10 mg PO HS 04/07/19 Sacubitril/Valsartan [Entresto 24 mg-26 mg Tablet] 1 each PO BID 04/07/19 Albuterol Sulfate [Proair Digihaler] 2 puff NEB TID PRN 05/31/19 Bimatoprost [Lumigan] 1 drop DAILY 05/31/19 Citric Acid/Sodium Citrate [Bicitra Oral Solution -] 30 ml PO DAILY #120 oz 05/31/19 Colchicine [Colcrys] 0.6 mg PO DAILY cap 05/31/19 Furosemide 20 mg PO DAILY 05/31/19 Insulin Glargine,Hum.rec.anlog [Lantus Solostar PEN -] 20 units SQ AM #1 vial 05/31/19 Polyethylene Glycol 3350 [Miralax 119 gm Btl -] 17 gm PO BID bottle 05/31/19 Albuterol 0.083% Nebulizer Fatuma [Ventolin 0.083%] 1 neb NEB QID 11/30/19 Budesonide/Formeterol Fumarate [SYMBICORT 160/4.5mcg -] 1 inh PO BID 11/30/19 Family Medical History Family History: Unable to Obtain Review of Systems - Review of Systems Musculoskeletal: reports: Extremity Pain, Joint Pain Neurological: reports: Change in LOC, Change in Speech, Confusion, Dizziness, Headache Physical Exam-Neuro Vital Signs: Vital Signs Temperature 97.9 F 11/30/19 07:10 Pulse Rate 55 L 11/30/19 07:10 Respiratory Rate Blood Pressure 121/79 11/30/19 07:10 O2 Sat by Pulse Oximetry (%) 100 11/30/19 07:10 Labs: CBC, BMP 11/30/19 08:35 11/30/19 08:35 INR, PTT INR 1.02 (0.83-1.09) 11/30/19 08:35 - Neuro Exam Level Of Consciousness: Yes: Oriented to Person, Oriented to Place, Oriented to Time Eyes: Yes: PERRLA Speech: WNL Cranial Nerves II-XII Intact: Yes Gag: Absent DTR's: 0 Left Bicep, 0 Right Bicep, 0 Right Tricep, 0 Left Brachioradialis, 0 Right Brachioradialis Response to light touch: Abnormal Response to pain prick: Abnormal Response to temperature: Abnormal Motor Strength: 3/5: Left Arm, Right Arm, Left Leg, Right Leg Gait: Deferred Imaging - Results Cat Scan: Image Reviewed Problem List - Problems (1) Neuropathy Code(s): G62.9 - POLYNEUROPATHY, UNSPECIFIED (2) Chronic low back pain Code(s): M54.5 - LOW BACK PAIN; G89.29 - OTHER CHRONIC PAIN (3) Gait instability Code(s): R26.81 - UNSTEADINESS ON FEET (4) Type 2 diabetes mellitus Code(s): E11.9 - TYPE 2 DIABETES MELLITUS WITHOUT COMPLICATIONS Assessment/Plan 1. aagree to plantar admitted to monitor. 2. Fall precautions. 3. Carotid Doppler. 4. Check orthostasis every shift. 4. DVT prophylaxis. 6. Check B12. 7. Tight blood sugar control. Neurologically okay to go for surgery Thank you very much for allowing me to be part of this patient's neurological care. Aster Kay M.D. [facility]. [phone]
[2019-11-30] MEDS: INSULIN SLIDING SCALE (NOVOLOG) 1 VIAL SQ SCH ×2 (16:54→22:33)
--- NOTE | 2019-11-30 17:54 | PN ---
Progress Note (short form) - Note Progress Note: Chart reviewed. Patient will require IM nail. Will discuss case with anesthesia. Given medical history, pt is high risk, will most likely require spinal anesthesia. If this is the case, will have to wait 5 days until plavix effects have worn off.
[2019-11-30] MEDS: MORPHINE SULFATE 2 MG/ML VIAL IVPUSH PRN (20:36)
[2019-11-30] MEDS ORDERED: ACETAMINOPHEN 325 MG TABLET (FP) PO PRN (21:45)
[2019-11-30] MEDS ORDERED: SACUBITRIL/VALSARTAN 24 MG-26 MG TABLET PO SCH (22:00)
[2019-11-30] MEDS ORDERED: HEPARIN NA (PORCINE) 5,000 UNITS/ML 1ML VIAL SQ SCH (22:00)
[2019-11-30] MEDS ORDERED: MELATONIN 10 MG PO SCH (22:00)
[2019-11-30] MEDS ORDERED: ROSUVASTATIN CA 20 MG TABLET (FP) PO SCH (22:00)
[2019-11-30] MEDS ORDERED: INSULIN (NOVOLOG) ASPART 100 UNITS/ML 10ML VIAL ONE (22:16)
[2019-11-30] MEDS: CARVEDILOL 3.125 MG TABLET (FP) PO SCH (22:33)
[2019-11-30] MEDS: BUDESONIDE/FORMETEROL FUMARATE 160/4.5 mcg INHALER IH SCH (23:21)
[2019-12-01] MEDS: MORPHINE SULFATE 2 MG/ML VIAL IVPUSH PRN ×2 (04:15→11:12)
[2019-12-01] MEDS ORDERED: ACETAMINOPHEN 1000 MG/100 ML VIAL (NON FORMULARY) IVPB ONE (05:23)
[2019-12-01] MEDS: INSULIN SLIDING SCALE (NOVOLOG) 1 VIAL SQ SCH ×5 (06:22→22:07)
[2019-12-01 07:44] LABS: BASO % 0.3 % (0-2.0); EOS % 0.3 % (0-4.5); HEMATOCRIT 30.4 % (35.4-49); HEMOGLOBIN 10.1 GM/dL (11.7-16.9); LYMPH % 13.3 % (8-40); MCH 26.1 pg (25.7-33.7); MCHC 33.2 g/dl (32.0-35.9); MEAN CELL VOLUME 78.8 fl (80-96); MEAN PLT VOLUME 7.8 fl (7.5-11.1); MONO % 7.2 % (3.8-10.2); NEUT % 78.9 % (42.8-82.8); PLATELET COUNT 155 K/MM3 (134-434); RBC 3.85 M/mm3 (4.00-5.60); RDW 17.5 % (11.9-15.9); WHITE BLOOD COUNT 7.9 K/mm3 (4.0-10.0)
[2019-12-01 07:49] LABS: INR 1.08 (0.83-1.09); PROTHROMBIN TIME (PATIENT) 12.8 SEC (9.7-13.0)
[2019-12-01 07:52] LABS: ACTIVATED PTT 29.2 SECONDS (25.2-36.5)
[2019-12-01 08:16] LABS: ALBUMIN 3.1 g/dl (3.4-5.0); BILIRUBIN,TOTAL 0.8 mg/dL (0.2-1); BLOOD UREA NITROGEN 49.7 mg/dL (7-18); CALCIUM 8.3 mg/dL (8.5-10.1); CREATININE 2.1 mg/dL (0.55-1.3); PHOSPHOROUS 4.8 mg/dL (2.5-4.9); POTASSIUM 4.3 mmol/L (3.5-5.1); TOT PROT 6.4 g/dl (6.4-8.2)
[2019-12-01] MEDS ORDERED: ESCITALOPRAM OXALATE 20 MG TABLET PO SCH (10:00)
[2019-12-01] MEDS ORDERED: VALSARTAN 40 MG TABLET (FP) PO SCH (10:00)
[2019-12-01] MEDS ORDERED: TAMSULOSIN HCL 0.4 MG CAP PO SCH ×2 (10:00→22:00)
[2019-12-01] MEDS ORDERED: PANTOPRAZOLE 40 MG TABLET PO SCH (10:00)
--- NOTE | 2019-12-01 10:15 | PN ---
Progress Note, Physician History of Present Illness: Denies recurrent syncope, left hip discomfort adequately controlled. - Current Medication List Current Medications: Active Medications Budesonide/Formoterol Fumarate (Symbicort 160/4.5mcg -) 1 puff IH BID [facility] Last Admin: 11/30/19 23:21 Dose: 1 puff Documented by: Carvedilol (Coreg -) 3.125 mg PO BID [facility] Last Admin: 11/30/19 22:33 Dose: 3.125 mg Documented by: Escitalopram Oxalate (Lexapro -) 20 mg PO DAILY [facility] Heparin Sodium (Porcine) (Heparin -) 5,000 unit SQ BID [facility] Last Admin: 11/30/19 22:32 Dose: 5,000 unit Documented by: Insulin Aspart (Novolog Vial Sliding Scale -) 1 vial SQ [facility]; Protocol Last Admin: 12/01/19 06:22 Dose: Not Given Documented by: Morphine Sulfate (Morphine Sulfate) 2 mg IVPUSH Q4H PRN PRN Reason: PAIN LEVEL 6-10 Last Admin: 12/01/19 04:15 Dose: 2 mg Documented by: Non-Formulary Medication (Albuterol Sulfate [Proair Digihaler]) 2 puff NEB TID PRN PRN Reason: SHORTNESS OF BREATH Non-Formulary Medication (Melatonin [Melatonin]) 10 mg PO [facility] Last Admin: 11/30/19 23:10 Dose: Not Given Documented by: Pantoprazole Sodium (Protonix -) 40 mg PO DAILY [facility] Rosuvastatin Calcium (Crestor -) 20 mg PO [facility] Last Admin: 11/30/19 22:33 Dose: 20 mg Documented by: Tamsulosin HCl (Flomax -) 0.4 mg PO [facility] Valsartan (Diovan -) 40 mg PO DAILY [facility] - Objective Vital Signs: Vital Signs Temperature 97.9 F 12/01/19 02:24 Pulse Rate 75 12/01/19 02:24 Respiratory Rate 16 12/01/19 05:51 Blood Pressure 107/49 L 12/01/19 05:51 O2 Sat by Pulse Oximetry (%) 96 12/01/19 05:51 Constitutional: Yes: No Distress, Calm, Thin Neck: Yes: Supple Cardiovascular: Yes: Regular Rate and Rhythm Respiratory: Yes: Regular, Diminished Gastrointestinal: Yes: Soft, Hypoactive Bowel Sounds Genitourinary: Yes: Way Present Extremities: Yes: External Rotation, Shortened Edema: No Labs: CBC, BMP 12/01/19 06:40 12/01/19 06:40 INR, PTT INR 1.08 (0.83-1.09) 12/01/19 06:40 - ....Imaging EKG: Report Reviewed (Tele: NSR) Problem List - Problems (1) Pre-operative cardiovascular examination, ICD in place Code(s): Z01.810 - ENCOUNTER FOR PREPROCEDURAL CARDIOVASCULAR EXAMINATION; Z95.810 - PRESENCE OF AUTOMATIC (IMPLANTABLE) CARDIAC DEFIBRILLATOR (2) CAD (coronary artery disease) Code(s): I25.10 - ATHSCL HEART DISEASE OF [place] CORONARY ARTERY W/O ANG PCTRS Qualifiers: Coronary Disease-Associated Artery/Lesion type: [place] artery [place] vs. transplanted heart: [place] heart Associated angina: without angina Qualified Code(s): I25.10 - Atherosclerotic heart disease of [place] coronary artery without angina pectoris (3) COPD (chronic obstructive pulmonary disease) Code(s): J44.9 - CHRONIC OBSTRUCTIVE PULMONARY DISEASE, UNSPECIFIED Qualifiers: COPD type: unspecified COPD Qualified Code(s): J44.9 - Chronic obstructive pulmonary disease, unspecified (4) History of percutaneous coronary intervention Code(s): Z98.890 - OTHER SPECIFIED POSTPROCEDURAL STATES (5) Hx of CABG Code(s): Z95.1 - PRESENCE OF AORTOCORONARY BYPASS GRAFT (6) ICD (implantable cardioverter-defibrillator) in place Code(s): Z95.810 - PRESENCE OF AUTOMATIC (IMPLANTABLE) CARDIAC DEFIBRILLATOR (7) Ischemic cardiomyopathy Code(s): I25.5 - ISCHEMIC CARDIOMYOPATHY (8) Recurrent falls Code(s): R29.6 - REPEATED FALLS (9) Acute on chronic renal insufficiency Code(s): N28.9 - DISORDER OF KIDNEY AND URETER, UNSPECIFIED; N18.9 - CHRONIC KIDNEY DISEASE, UNSPECIFIED (10) Orthostatic hypotension Code(s): I95.1 - ORTHOSTATIC HYPOTENSION Assessment/Plan 11/21/2019 Echo: Normal LV size with mild LVH and mild decreased LVEF 45-50%, grade I diastolic dysfunction, mild LAE, tr MR, mild-mod TR, mild MD RVSP 34 mmHg Echocardiography (10/15/18): Moderately reduced LV systolic function, LVEF 40-45%, grade 1 diastolic dysfunction, mild , mild MR, moderate TR, mild MD and pulmonary HTN. 1. Pre-op evaluation left IM nail for femoral neck hip fracture, ASA III 2. Chronic LV systolic heart failure (ischemic cardiomyopathy EF 45-50%) 3. CAD s/p [place], CABG, PCI/stents, angina pectoris 4. Post ICD implant 5. HTN 6. Hypercholesterolemia 7. T2DM 8. Acute on CKD stage 3 9. 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 COPD 11. PUD s/p Bilroth II gastrectomy 12. Achalasia s/p Heller's myomectomy 13. Gout 14. Kidney stones 15. Orthostatic hypotension on Northera 16. Gait disturbance PLAN: 1. Given absence of symptoms of acute coronary syndrome, decompensated CHF or malignant arrhythmia, may proceed with left IM nail from CV-standpoint w/o further testing, place magnet over ICD to disable ICD function intraoperatively 2. Changed Entresto 24/26 mg BID to Diovan 40 qd given LV fxn recovery, hold Plavix 75 mg QD pending surgery, continue Coreg 3.125 mg BID and Crestor 20 mg QHS. Monitor orthostasis, has not been taking Northera 100 qd, hold Lasix 20 qd pre-op, change Flomax to evening dosing to minimize symptomatic orthostasis 3. DVT prophylaxis and analgesia as needed 4. Eventual f/u with Dr. Morales in office
[2019-12-01] MEDS: CARVEDILOL 3.125 MG TABLET (FP) PO SCH ×2 (11:24→22:00)
[2019-12-01] MEDS: BUDESONIDE/FORMETEROL FUMARATE 160/4.5 mcg INHALER IH SCH ×2 (11:25→22:02)
[2019-12-01] MEDS ORDERED: MELATONIN 5 MG TABLETS PO SCH (11:34)
[2019-12-01] MEDS ORDERED: PROPOFOL 20 ML ONE (14:23)
[2019-12-01] MEDS ORDERED: MIDAZOLAM HCL 2 MG/2 ML SINGLE DOSE VIAL ONE (14:23)
--- NOTE | 2019-12-01 14:37 | CON.ORTH ---
Consult - Past Medical History Cardio/Vascular: Yes: CAD, CHF, HTN, Hyperlipdemia, [place] Pulmonary: Yes: Asthma, Bronchitis, COPD, Pneumonia Gastrointestinal: Yes: Constipation Renal/: Yes: BPH Musculoskeletal: Yes: Chronic low back pain, Osteoarthritis Endocrine: Yes: Diabetes Mellitus - Past Surgical History Past Surgical History: Yes: CABG, Cholecystectomy - Alcohol/Substance Use Hx Alcohol Use: No History of Substance Use: reports: None - Smoking History Smoking history: Former smoker Have you smoked in the past 12 months: No Aproximately how many cigarettes per day: 40 If you are a former smoker, when did you quit?: 2017 - Social History Usual Living Arrangement: With Spouse ADL: Independent Occupation: retired: worked for [employer] History of Recent Travel: No Home Medications - Allergies Allergies/Adverse Reactions: Allergies Allergy/AdvReac Type Severity Reaction Status Date / Time pregabalin [From Lyrica] Allergy Severe Verified 11/30/19 07:39 - Home Medications Home Medications: Ambulatory Orders Carvedilol 3.125 mg PO BID 12/08/18 Escitalopram Oxalate [Lexapro -] 20 mg PO DAILY 12/08/18 Rosuvastatin Calcium [Crestor] 20 mg PO HS 12/08/18 Tamsulosin HCl 0.4 mg PO DAILY 01/11/19 Clopidogrel Bisulfate [Clopidogrel] 75 mg PO DAILY 04/07/19 Melatonin 10 mg PO HS 04/07/19 Sacubitril/Valsartan [Entresto 24 mg-26 mg Tablet] 1 each PO BID 04/07/19 Albuterol Sulfate [Proair Digihaler] 2 puff NEB TID PRN 05/31/19 Bimatoprost [Lumigan] 1 drop DAILY 05/31/19 Citric Acid/Sodium Citrate [Bicitra Oral Solution -] 30 ml PO DAILY #120 oz 05/31/19 Colchicine [Colcrys] 0.6 mg PO DAILY cap 05/31/19 Furosemide 20 mg PO DAILY 05/31/19 Insulin Glargine,Hum.rec.anlog [Lantus Solostar PEN -] 20 units SQ AM #1 vial 05/31/19 Polyethylene Glycol 3350 [Miralax 119 gm Btl -] 17 gm PO BID bottle 05/31/19 Albuterol 0.083% Nebulizer Fatuma [Ventolin 0.083%] 1 neb NEB QID 11/30/19 Budesonide/Formeterol Fumarate [SYMBICORT 160/4.5mcg -] 1 inh PO BID 11/30/19 Physical Exam for Ortho Vital Signs: Vital Signs Temperature 98.3 F 12/01/19 10:00 Pulse Rate 67 12/01/19 10:00 Respiratory Rate 18 12/01/19 10:00 Blood Pressure 104/52 L 12/01/19 10:00 O2 Sat by Pulse Oximetry (%) 94 L 12/01/19 10:00 Labs: CBC, BMP 12/01/19 06:40 12/01/19 06:40 INR, PTT INR 1.08 (0.83-1.09) 12/01/19 06:40
[2019-12-01] MEDS ORDERED: EPHEDRINE SULFATE/0.9% NACL/PF 50 MG/10 ML SYRINGE NR ONE (14:52)
[2019-12-01] MEDS ORDERED: ceFAZolin SODIUM 1 GM VIAL IVPB ONE (15:15)
[2019-12-01] MEDS ORDERED: ceFAZolin SODIUM 1 GM VIAL ONE ×2 (15:19→22:58)
--- NOTE | 2019-12-01 16:10 | PN ---
Teaching Attending Note Name of Resident: Ed Nicholas ATTENDING PHYSICIAN STATEMENT I saw and evaluated the patient. I reviewed the resident's note and discussed the case with the resident. I agree with the resident's findings and plan as documented. SUBJECTIVE: seen at around 12 pm No fever or chills. minimal pain. No N/V. no SOB. reprots feeling light headed at times. also does not remember much about his fall , bat has recurrent falls lately . OBJECTIVE: NAD, awake, alert , oriented. HEENT: MMM, no JVD, no facial droop. deformed R pupil. round L pupil CV: RRR, No MRG Lungs: CTAB Abd: soft, ND, NL BS Ext: no edema over UEs, and RLE . edema over L lateral hip. LLE is shorter and externally rotated. Dp 2+ b/l . can move ankles and toes and has nl sensation in feet ASSESSMENT AND PLAN: 79 y/o man with h/o chronic systolic heart failure , CAD, s/p PCI ,CKD, s/p medtronic ICD, DM, PUD s/p partial gastrectomy, Achalasia , CABG, HTN, HLP,penile implant , and copd ( 2 L of O2 ) , who presented after a fall and was found to have L sided femoral neck Fx 1- L Fem neck Fx 2- FAll. ? syncope : possible orthostatic hypotension 3- h/o systolic CHF. EF improved 4- h/o HTN 5- h/o CKD 6- h/o CAD, HLP. 7- H/o DM plan : - for Or today under general anesthesia - resume plavix - pain control - check orthostatic VS - call for medtronic ICD interrogation to r/o arrhythmias - cont diovan ( changed from Entresto ) - cont to hold lasix in setting of volume depletion - cont coreg - cont SSi , will resume lA insulinin am - heaprin sq for DVT px
[2019-12-01] MEDS ORDERED: DOCUSATE SODIUM 100 MG CAPSULE (FP) PO PRN ×2 (16:13→16:30)
[2019-12-01] MEDS ORDERED: oxyCODONE HCL 5 MG TABLET PO PRN ×5 (16:13→16:30)
[2019-12-01] MEDS ORDERED: ACETAMINOPHEN 325 MG TABLET (FP) PO PRN (16:15)
[2019-12-01] MEDS ORDERED: MAGNESIUM HYDROX 2400MG/30ML ORAL SUSPENSION 30 ML CUP PO PRN (16:15)
[2019-12-01] MEDS ORDERED: morphine CARPU-JECT 4 MG/1 ML DISP.SYRIN IM PRN (16:15)
[2019-12-01] MEDS ORDERED: MAG HYDROX/AL HYDROX/SIMETH 30 ML UNIT-DOSE CUP PO PRN ×2 (16:15→16:30)
--- NOTE | 2019-12-01 16:23 | CONS ---
DATE OF CONSULTATION: 12/01/2019 CHIEF COMPLAINT: Left hip pain. HISTORY OF PRESENT ILLNESS: This is a 79-year-old gentleman who suffered a fall. He was found to have a displaced basicervical left hip fracture. Orthopedic consultation was called. Patient initially had some pain in the elbow and wrist area, but this is improving. Now, he notes pain with any motion of the left hip. He has no numbness or tingling. There is no pain noted elsewhere. PAST MEDICAL HISTORY: Significant for hypertension; hyperlipidemia; diabetes; CAD; CABG; heart failure; ICD versus pacemaker, PAD, status post femoropopliteal; PUD, status post Billroth II anastomosis; achalasia, status post myotomy; COPD; gout; chronic kidney disease; BPH. MEDICATIONS: Most significant for being on Plavix. ALLERGIES: LYRICA. SOCIAL HISTORY: No current tobacco or alcohol, previous smoker. PAST SURGICAL HISTORY: Includes CABG, angioplasty, Billroth, PPM. REVIEW OF SYMPTOMS: Negative for fever, chills, sweating, nasal congestion, throat pain or throat swelling, abdominal distention. Positive for diarrhea. Negative for constipation. PHYSICAL EXAMINATION: General: This is an elderly gentleman in no acute distress. He is alert and oriented to person and place. Left Lower Extremity: Shortened and externally rotated. His knee is nontender. His ankle is nontender. Distally, his sensation is intact to light touch. DP pulse 1+. EHL, FHL intact. Radiographs reviewed, demonstrating displaced basicervical left femoral neck fracture. PLAN: I discussed these findings with the patient. We reviewed that he has a displaced hip fracture. I reviewed the option of nonsurgical care with prolonged bedrest and potential for multiple medical complications. Alternatively, I recommend early treatment with IM nail. While he is high risk for surgery given his underlying medical conditions, early intervention is his best chance at avoiding serious medical complications from the injury including heart attack, stroke, DVT, PE, and . I reviewed the surgical procedure in detail. We reviewed surgical risks including bleeding, infection, neurovascular injury, need for further surgery, postoperative pain and stiffness, nonunion, malunion, hardware failure or cutout. We discussed medical risks such as heart attack, stroke, DVT, PE, and . I addressed the use of perioperative antibiotic and DVT prophylaxis. I addressed all the patient's questions and concerns. He voice understanding and is electing to proceed. He will be brought to the OR today. THERESE DASILVA M.D. [facility]/[id number]
[2019-12-01] MEDS ORDERED: ONDANSETRON 4 MG/2 ML VIAL IVPUSH PRN (16:26)
[2019-12-01] MEDS ORDERED: morphine SULFATE 4 MG/ML VIAL IM PRN (16:30)
[2019-12-01] MEDS ORDERED: ALBUTEROL SO4 HFA INHALER IH PRN (16:30)
[2019-12-01] MEDS ORDERED: LACTATED RINGERS SOLUTION 1,000 ML IV SCH (16:30)
--- NOTE | 2019-12-01 17:05 | OP ---
DATE OF OPERATION: 12/01/2019 PREOPERATIVE DIAGNOSIS: Left hip basicervical hip fracture. POSTOPERATIVE DIAGNOSIS: Left hip basicervical hip fracture. PROCEDURE: Left hip intramedullary nail. SURGEON: Brandon Leung MD GAS LINE SERVICER: JUAN DIEGO Swain, whose skillful assistance was necessary for the safe and timely performance of this procedure. Ms. Cotton was able to provide help with limb positioning, traction, assistance in fracture reduction, as well as insertion of orthopedic fixation and hardware. ANESTHESIA: General. POSTOPERATIVE CONDITION: Stable. COMPLICATIONS: None. BLOOD LOSS: 150 mL. INDICATIONS: This is a pleasant 79-year-old gentleman who suffered a falling episode. He was found to have a displaced basicervical hip fracture. Treatment options were discussed including nonoperative and operative management. Operative risks were reviewed in detail including bleeding, infection, neurovascular injury, need for further surgery, postoperative pain and stiffness, nonunion, malunion, hardware failure, etc. We discussed medical risks such as heart attack, stroke, DVT, PE, and . I discussed the use of perioperative antibiotics and DVT prophylaxis. I addressed all of the patient's questions and concerns. He voiced understanding and elected to proceed. DESCRIPTION OF PROCEDURE: The patient was brought to the operating room where general anesthetic was administered. The left lower extremity was then prepped and draped in the usual sterile fashion. A preoperative dose of antibiotics was given and the usual timeout procedure was performed. It should be noted that the patient has been placed on the fracture table with care taken to pad all of the bony prominences. The left lower extremity was placed into position of adduction, traction, and internal rotation to aid in fracture reduction. The incision was now planned out over the greater trochanter. This was done just proximal. This was carried down to through the skin and subcutaneous tissue. A guidewire was now inserted onto the tip of the greater trochanter and then able to be manually advanced down into the femoral canal. Guidewire placement was verified fluoroscopically in 2 planes. The guidewire was then overreamed down to the level of the trochanter. The guidewire was removed. The attention was now turned to the femoral canal. A 125-degree nail was chosen. Nail placement was confirmed fluoroscopically. A small incision was then made to allow for passage of the trocar to the level of the femoral cortex. The guidewire was now advanced down the center of the femoral neck into the center of the femoral head. Guidewire placement was verified postoperatively in 2 planes. The guidewire was then measured and 100-mm lag screw was chosen. This was then overreamed. The lag screw was now inserted and lag screw placement was confirmed fluoroscopically in 2 planes and was satisfactory. The set screw was now advanced and back off a quarter turn to allow for compression. The trocar was then removed. The distal trocar was now inserted through a second more distal incision. The drill was then placed across both cortices into the nail. This was measured and a 40-mm screw was chosen and inserted. At this point, the entire construct was examined both visually and fluoroscopically. We had fracture reduction and hardware placement was satisfactory. The jig was removed. The wounds were copiously irrigated. Subcutaneous tissues were approximated using 2-0 Vicryl. The skin was closed using 3-0 nylon. Sterile dressings were placed. Patient was extubated and transferred to the recovery room in stable condition. Tyrell [id number]
[2019-12-01] MEDS ORDERED: FERROUS SO4 325 MG TABLET (FP) PO SCH (17:30)
[2019-12-01 17:49] LABS: HEMOGLOBIN 10.6 GM/dL (11.7-16.9); MCH 26.3 pg (25.7-33.7); MEAN CELL VOLUME 79.8 fl (80-96); PLATELET COUNT 151 K/MM3 (134-434); RBC 4.02 M/mm3 (4.00-5.60); RDW 17.3 % (11.9-15.9); WHITE BLOOD COUNT 10.2 K/mm3 (4.0-10.0)
[2019-12-01] MEDS: FERROUS SO4 325 MG TABLET (FP) PO SCH (18:50)
--- NOTE | 2019-12-01 20:41 | PN ---
Physical Exam: SUBJECTIVE: No overnight events. Patient seen and examined. Pt reports pain of L leg, but well-controlled w/ meds. OBJECTIVE: Vital Signs Period Temp Pulse Resp BP Sys/Garcia Pulse Ox Last 24 Hr 97.6 F-98.3 F 67-108 16-26 100-156/49-71 94-100 GENERAL: The patient is awake, alert, and fully oriented, in no acute distress. HEAD: NT, NC, dry MMM LUNGS: Breath sounds equal, clear to auscultation bilaterally, no wheezes, no crackles, no accessory muscle use. HEART: Regular rate and rhythm, S1, S2 without murmur, rub or gallop. ABDOMEN: Soft, nontender, nondistended, normoactive bowel sounds, no guarding, no rebound EXTREMITIES: 2+ pulses, warm, well-perfused, LLE externally rotated and shorter than RLE. Sensation intact b/l. Unable to assess strength due to pain on LLE. NEUROLOGICAL: Cranial nerves II through XII grossly intact. Normal speech, gait not observed. PSYCH: Normal mood, normal affect. SKIN: Warm, dry, normal turgor, no rashes or lesions noted Laboratory Results - last 24 hr 11/30/19 11/30/19 12/01/19 12:20 22:27 06:18 WBC RBC Hgb Hct MCV MCH MCHC RDW Plt Count MPV Absolute Neuts (auto) Neutrophils % Lymphocytes % Monocytes % Eosinophils % Basophils % Nucleated RBC % PT with INR INR PTT (Actin FS) Sodium Potassium Chloride Carbon Dioxide Anion Gap BUN Creatinine Est GFR (CKD-EPI)AfAm Est GFR (CKD-EPI)NonAf POC Glucometer 155 138 Random Glucose Calcium Phosphorus Magnesium Total Bilirubin AST ALT Alkaline Phosphatase Total Protein Albumin COVID-19 (KELLY) Not detected 12/01/19 12/01/19 12/01/19 06:40 06:40 06:40 WBC 7.9 RBC 3.85 L Hgb 10.1 L Hct 30.4 L MCV 78.8 L MCH 26.1 MCHC 33.2 RDW 17.5 H Plt Count 155 MPV 7.8 Absolute Neuts (auto) 6.2 Neutrophils % 78.9 Lymphocytes % 13.3 D Monocytes % 7.2 Eosinophils % 0.3 Basophils % 0.3 Nucleated RBC % 0 PT with INR 12.80 INR 1.08 PTT (Actin FS) 29.2 Sodium 140 Potassium 4.3 Chloride 111 H Carbon Dioxide 19 L Anion Gap 11 BUN 49.7 H Creatinine 2.1 H Est GFR (CKD-EPI)AfAm 34.16 Est GFR (CKD-EPI)NonAf 29.47 POC Glucometer Random Glucose 149 H Calcium 8.3 L Phosphorus 4.8 Magnesium 2.0 Total Bilirubin 0.8 AST 20 ALT 30 Alkaline Phosphatase 78 Total Protein 6.4 Albumin 3.1 L COVID-19 (KELLY) 12/01/19 12/01/19 12/01/19 11:18 17:25 18:02 WBC 10.2 H RBC 4.02 Hgb 10.6 L Hct 32.0 L MCV 79.8 L MCH 26.3 MCHC 33.0 RDW 17.3 H Plt Count 151 MPV 8.0 Absolute Neuts (auto) Neutrophils % Lymphocytes % Monocytes % Eosinophils % Basophils % Nucleated RBC % PT with INR INR PTT (Actin FS) Sodium Potassium Chloride Carbon Dioxide Anion Gap BUN Creatinine Est GFR (CKD-EPI)AfAm Est GFR (CKD-EPI)NonAf POC Glucometer 143 159 Random Glucose Calcium Phosphorus Magnesium Total Bilirubin AST ALT Alkaline Phosphatase Total Protein Albumin COVID-19 (KELLY) Active Medications Generic Name Dose Route Start Last Admin Trade Name Freq PRN Reason Stop Dose Admin Acetaminophen 650 mg 12/01/19 16:30 Tylenol - PO Q4H PRN FEVER Al Hydroxide/Mg Hydroxide 30 ml 12/01/19 16:30 Mylanta Oral Suspension - PO PCHS PRN DYSPEPSIA Albuterol Sulfate 2 puff 12/01/19 16:30 Ventolin Hfa Inhaler - IH Q8H PRN SHORTNESS OF BREATH Ascorbic Acid 500 mg 12/01/19 22:00 Vitamin C - PO BID KADEEM Budesonide/Formoterol Fumarate 1 puff 12/01/19 22:00 Symbicort 160/4.5mcg - IH BID KADEEM Carvedilol 3.125 mg 12/01/19 22:00 Coreg - PO BID KADEEM Clopidogrel Bisulfate 75 mg 12/02/19 14:00 Plavix - PO DAILY K[facility] Cyclobenzaprine HCl 10 mg 12/01/19 22:00 Flexeril - PO TID KADEEM Docusate Sodium 100 mg 12/01/19 16:30 Colace - PO Q12H PRN CONSTIPATION Enoxaparin Sodium 30 mg 12/02/19 14:30 Lovenox - SQ DAILY [facility] Escitalopram Oxalate 20 mg 12/02/19 10:00 Lexapro - PO DAILY [facility] Ferrous Sulfate 325 mg 12/01/19 17:30 12/01/19 18:50 Feosol - PO Not Given TIDCM [facility] Cefazolin Sodium 1 gm/ 50 mls @ 100 mls/hr 12/01/19 23:45 Dextrose IVPB 12/02/19 08:14 Q8H [facility] Insulin Aspart 1 vial 12/01/19 16:30 12/01/19 18:45 Novolog Vial Sliding Scale - SQ Not Given ACHS [facility] Protocol Melatonin 10 mg 12/01/19 22:00 Melatonin PO HS [facility] Morphine Sulfate 4 mg 12/01/19 16:30 Morphine Sulfate IM Q3H PRN Pain Level 8-10 Oxycodone HCl 10 mg 12/01/19 16:30 Roxicodone - PO Q4H PRN PAIN LEVEL 4-8 Oxycodone HCl 5 mg 12/01/19 16:30 Roxicodone - PO Q6H PRN PAIN LEVEL 1 - 3 Pantoprazole Sodium 40 mg 12/02/19 10:00 Protonix - PO DAILY [facility] Rosuvastatin Calcium 20 mg 12/01/19 22:00 Crestor - PO HS [facility] Tamsulosin HCl 0.4 mg 12/01/19 22:00 Flomax - PO HS [facility] Valsartan 40 mg 12/02/19 10:00 Diovan - PO DAILY [facility] ASSESSMENT/PLAN: 79 YO M PMH DM, HTN, PUD s/p gastrectomy, achalasia s/p myotomy, COPD, CKD stage III, BPH, gout, CAD s/p CABG, PAD s/p fem-pop, heart failure and ICD, who presents after a fall. #Left femoral neck fracture -s/p sgy today #Fall -at least 7 falls within past 6 months. pt endorses lightheadedness b/f falls. -unable to perform orthostatic vitals to assess for orthostatic hypotension due to pts pain from the femoral fx. Will try to perform tomorrow -f/u ICD interrogation to evaluate for arrhythmias as possible cause of falls.([employer]) #Systolic CHF -c/w valsartan (diovan) instead of Entresto (Sacubitril/Valsartan) due to pts improved EF -c/w carvedilol 3.125 mg PO BID - hold lasix 2/2 volume depletion -plavix #DM -ISS -BGM -start long-acting in AM after assessing glucose #HTN: c/w valsartan #PUD: protonix 40 daily #CAD: carvedilol #HLD: Rosuvastatin 20 mg PO HS #CKD: trend Cr #BPH: c/w Flomax #DVT PPX: Lovenox 30 mg SQ Daily #FEN No IV fluids Monitor lytes Regular diet #DISPO Maintain med surg Visit type - Emergency Visit Emergency Visit: Yes ED Registration Date: 11/30/19 Care time: The patient presented to the Emergency Department on the above date and was hospitalized for further evaluation of their emergent condition. - New Patient This patient is new to me today: Yes Date on this admission: 12/01/19 - Critical Care Critical Care patient: No - Medication Review Med list reviewed for High Risk Meds patients 65 and older: Yes ATTENDING PHYSICIAN STATEMENT I saw and evaluated the patient. I reviewed the resident's note and discussed the case with the resident. I agree with the resident's findings and plan as documented. SUBJECTIVE: OBJECTIVE: ASSESSMENT AND PLAN:
[2019-12-01] MEDS ORDERED: ASCORBIC ACID 500 MG TABLET (FP) PO SCH (22:00)
[2019-12-01] MEDS: ROSUVASTATIN CA 20 MG TABLET (FP) PO SCH (22:00)
[2019-12-01] MEDS: TAMSULOSIN HCL 0.4 MG CAP PO SCH (22:00)
[2019-12-01] MEDS: CYCLOBENZAPRINE HCL 10 MG TABLET (FP) PO SCH (22:00)
[2019-12-01] MEDS ORDERED: CYCLOBENZAPRINE HCL 10 MG TABLET (FP) PO SCH (22:00)
[2019-12-01] MEDS: ASCORBIC ACID 500 MG TABLET (FP) PO SCH (22:01)
[2019-12-01] MEDS: MELATONIN 5 MG TABLETS PO SCH ×2 (22:07→23:00)
[2019-12-01] MEDS ORDERED: DEXTROSE 5%-WATER - 50 ML IVPB ONE (22:59)
[2019-12-01] MEDS ORDERED: CEFAZOLIN 1 GM/D5W 1 GM/50 ML BAG IVPB SCH (23:45)
[2019-12-01] MEDS ORDERED: CEFAZOLIN 1 GM/D5W 50 ML IVPB SCH (23:45)
[2019-12-01] MEDS: CEFAZOLIN 1 GM in DEXTROSE 5%-WATER - 50 ML IVPB SCH (23:50)
[2019-12-02 05:40] LABS: HEMATOCRIT 26.2 % (35.4-49); HEMOGLOBIN 8.5 GM/dL (11.7-16.9); MCHC 32.6 g/dl (32.0-35.9); MEAN CELL VOLUME 79.9 fl (80-96); MEAN PLT VOLUME 7.9 fl (7.5-11.1); PLATELET COUNT 117 K/MM3 (134-434); RBC 3.28 M/mm3 (4.00-5.60); RDW 17.4 % (11.9-15.9); WHITE BLOOD COUNT 11.5 K/mm3 (4.0-10.0)
[2019-12-02 06:05] LABS: BLOOD UREA NITROGEN 61.4 mg/dL (7-18); CREATININE 2.4 mg/dL (0.55-1.3); PHOSPHOROUS 5.4 mg/dL (2.5-4.9); POTASSIUM 4.6 mmol/L (3.5-5.1)
[2019-12-02] MEDS: CYCLOBENZAPRINE HCL 10 MG TABLET (FP) PO SCH ×3 (06:46→22:01)
[2019-12-02] MEDS: INSULIN SLIDING SCALE (NOVOLOG) 1 VIAL SQ SCH ×4 (06:46→22:02)
[2019-12-02] MEDS ORDERED: ceFAZolin SODIUM 1 GM VIAL ONE (07:26)
[2019-12-02] MEDS ORDERED: DEXTROSE 5%-WATER - 50 ML IVPB ONE (07:27)
[2019-12-02] MEDS: CEFAZOLIN 1 GM in DEXTROSE 5%-WATER - 50 ML IVPB SCH (07:33)
[2019-12-02] MEDS: FERROUS SO4 325 MG TABLET (FP) PO SCH ×3 (07:33→17:02)
[2019-12-02] MEDS ORDERED: SODIUM CHLORIDE 1,000 ML IV SCH (08:15)
--- NOTE | 2019-12-02 08:33 | PN ---
Progress Note (short form) - Note Progress Note: Anesthesiology Post-op S/P left Hip IM nailing under GA yesterday evening. Pt. has some pain that is managed with medications. No complaints. VSS. Creatinine noted to be trending upward since admission; would defer to medical team to evaluate. Otherwise, no anesthesia-related issues. 79 y.o. man with acute on chronic nephropathy but otherwise stable post- operative course. Continue management as per primary team.
[2019-12-02] MEDS ORDERED: INSULIN (LEVEMIR) 100 UNITS/ML UNITS SQ ONE (08:40)
[2019-12-02] MEDS ORDERED: SODIUM CHLORIDE 250 ML IV STA (09:03)
[2019-12-02] MEDS: SODIUM CHLORIDE 1,000 ML IV SCH (09:12)
[2019-12-02] MEDS: CARVEDILOL 3.125 MG TABLET (FP) PO SCH (09:13)
[2019-12-02] MEDS: BUDESONIDE/FORMETEROL FUMARATE 160/4.5 mcg INHALER IH SCH ×2 (09:39→22:03)
[2019-12-02] MEDS: ASCORBIC ACID 500 MG TABLET (FP) PO SCH ×2 (09:39→22:03)
[2019-12-02] MEDS: ESCITALOPRAM OXALATE 20 MG TABLET PO SCH (09:39)
[2019-12-02] MEDS: PANTOPRAZOLE 40 MG TABLET PO SCH (09:39)
[2019-12-02] MEDS ORDERED: CLOPIDOGREL BISULFATE 75 MG TABLET (FP) PO SCH (10:00)
[2019-12-02] MEDS ORDERED: VALSARTAN 40 MG TABLET (FP) PO SCH (10:00)
--- NOTE | 2019-12-02 10:23 | PN ---
Progress Note (short form) - Note Progress Note: S/P Lt nailed femoral neck; no acute cardiac issues; Cr up Vital Signs Temperature 97.9 F 12/02/19 04:00 Pulse Rate 84 12/02/19 04:00 Respiratory Rate 20 12/02/19 04:00 Blood Pressure 102/50 L 12/02/19 04:00 O2 Sat by Pulse Oximetry (%) 97 12/02/19 04:00 Cardiovascular: Yes: Regular Rate and Rhythm Respiratory: Yes: Regular, Diminished Extremities: Yes: External Rotation, Shortened Edema: No Labs: CBC, BMP 12/02/19 05:30 12/02/19 05:30 Active Medications Acetaminophen (Tylenol -) 650 mg PO Q4H PRN PRN Reason: FEVER Al Hydroxide/Mg Hydroxide (Mylanta Oral Suspension -) 30 ml PO PCHS PRN PRN Reason: DYSPEPSIA Albuterol Sulfate (Ventolin Hfa Inhaler -) 2 puff IH Q8H PRN PRN Reason: SHORTNESS OF BREATH Ascorbic Acid (Vitamin C -) 500 mg PO BID [facility] Last Admin: 12/02/19 09:39 Dose: 500 mg Documented by: Budesonide/Formoterol Fumarate (Symbicort 160/4.5mcg -) 1 puff IH BID [facility] Last Admin: 12/02/19 09:39 Dose: 1 puff Documented by: Carvedilol (Coreg -) 3.125 mg PO BID [facility] Last Admin: 12/02/19 09:13 Dose: Not Given Documented by: Clopidogrel Bisulfate (Plavix -) 75 mg PO DAILY [facility] Cyclobenzaprine HCl (Flexeril -) 10 mg PO TID [facility] Last Admin: 12/02/19 06:46 Dose: 10 mg Documented by: Docusate Sodium (Colace -) 100 mg PO Q12H PRN PRN Reason: CONSTIPATION Enoxaparin Sodium (Lovenox -) 30 mg SQ DAILY [facility] Escitalopram Oxalate (Lexapro -) 20 mg PO DAILY [facility] Last Admin: 12/02/19 09:39 Dose: 20 mg Documented by: Ferrous Sulfate (Feosol -) 325 mg PO TIDCM [facility] Last Admin: 12/02/19 07:33 Dose: 325 mg Documented by: Sodium Chloride (Normal Saline -) 1,000 mls @ 42 mls/hr IV ASDIR [facility] Last Admin: 12/02/19 09:16 Dose: Not Given Documented by: Sodium Chloride (Normal Saline -) 1,000 mls @ 75 mls/hr IV ASDIR [facility] Last Admin: 12/02/19 09:12 Dose: 75 mls/hr Documented by: Insulin Aspart (Novolog Vial Sliding Scale -) 1 vial SQ ACHS [facility]; Protocol Last Admin: 12/02/19 06:46 Dose: Not Given Documented by: Melatonin (Melatonin) 10 mg PO [facility] Last Admin: 12/01/19 23:00 Dose: 10 mg Documented by: Morphine Sulfate (Morphine Sulfate) 4 mg IM Q3H PRN PRN Reason: Pain Level 8-10 Last Admin: 12/02/19 04:39 Dose: 4 mg Documented by: Oxycodone HCl (Roxicodone -) 10 mg PO Q4H PRN PRN Reason: PAIN LEVEL 4-8 Last Admin: 12/01/19 23:45 Dose: 10 mg Documented by: Oxycodone HCl (Roxicodone -) 5 mg PO Q6H PRN PRN Reason: PAIN LEVEL 1 - 3 Last Admin: 12/02/19 09:50 Dose: 5 mg Documented by: Pantoprazole Sodium (Protonix -) 40 mg PO DAILY [facility] Last Admin: 12/02/19 09:39 Dose: 40 mg Documented by: Rosuvastatin Calcium (Crestor -) 20 mg PO [facility] Last Admin: 12/01/19 22:00 Dose: 20 mg Documented by: Tamsulosin HCl (Flomax -) 0.4 mg PO [facility] Last Admin: 12/01/19 22:00 Dose: 0.4 mg Documented by: Valsartan (Diovan -) 40 mg PO DAILY [facility] Last Admin: 12/02/19 09:13 Dose: Not Given Documented by: - ....Imaging EKG: Report Reviewed (Tele: NSR) Problem List - Problems (1) Pre-operative cardiovascular examination, ICD in place Code(s): Z01.810 - ENCOUNTER FOR PREPROCEDURAL CARDIOVASCULAR EXAMINATION; Z95.810 - PRESENCE OF AUTOMATIC (IMPLANTABLE) CARDIAC DEFIBRILLATOR (2) CAD (coronary artery disease) Code(s): I25.10 - ATHSCL HEART DISEASE OF [place] CORONARY ARTERY W/O ANG PCTRS Qualifiers: Coronary Disease-Associated Artery/Lesion type: [place] artery [place] vs. transplanted heart: [place] heart Associated angina: without angina Qualified Code(s): I25.10 - Atherosclerotic heart disease of [place] coronary artery without angina pectoris (3) COPD (chronic obstructive pulmonary disease) Code(s): J44.9 - CHRONIC OBSTRUCTIVE PULMONARY DISEASE, UNSPECIFIED Qualifiers: COPD type: unspecified COPD Qualified Code(s): J44.9 - Chronic obstructive pulmonary disease, unspecified (4) History of percutaneous coronary intervention Code(s): Z98.890 - OTHER SPECIFIED POSTPROCEDURAL STATES (5) Hx of CABG Code(s): Z95.1 - PRESENCE OF AORTOCORONARY BYPASS GRAFT (6) ICD (implantable cardioverter-defibrillator) in place Code(s): Z95.810 - PRESENCE OF AUTOMATIC (IMPLANTABLE) CARDIAC DEFIBRILLATOR (7) Ischemic cardiomyopathy Code(s): I25.5 - ISCHEMIC CARDIOMYOPATHY (8) Recurrent falls Code(s): R29.6 - REPEATED FALLS (9) Acute on chronic renal insufficiency Code(s): N28.9 - DISORDER OF KIDNEY AND URETER, UNSPECIFIED; N18.9 - CHRONIC KIDNEY DISEASE, UNSPECIFIED (10) Orthostatic hypotension Code(s): I95.1 - ORTHOSTATIC HYPOTENSION Assessment/Plan 11/21/2019 Echo: Normal LV size with mild LVH and mild decreased LVEF 45-50%, grade I diastolic dysfunction, mild LAE, tr MR, mild-mod TR, mild IA RVSP 34 mmHg Echocardiography (10/15/18): Moderately reduced LV systolic function, LVEF 40-45%, grade 1 diastolic dysfunction, mild , mild MR, moderate TR, mild IA and pulmonary HTN. 1. Pre-op evaluation left IM nail for femoral neck hip fracture, ASA III; now POD#1 2. Chronic LV systolic heart failure (ischemic cardiomyopathy EF 45-50%) 3. CAD s/p AK, CABG, PCI/stents, angina pectoris 4. Post ICD implant 5. HTN 6. Hypercholesterolemia 7. T2DM 8. Acute on CKD stage 3 9. 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 COPD 11. PUD s/p Bilroth II gastrectomy 12. Achalasia s/p Heller's myomectomy 13. Gout 14. Kidney stones 15. Orthostatic hypotension on Northera 16. Gait disturbance PLAN: 1. S/P left IM nail , no cardiac issues 2. Off ARB/Entresto due to worsening renal: resume when feasible 3. DVT prophylaxis and analgesia as needed 4. Eventual f/u with Dr. Morales in office
[2019-12-02 13:06] LABS: BASO % 0.3 % (0-2.0); EOS % 0.1 % (0-4.5); HEMATOCRIT 26.2 % (35.4-49); HEMOGLOBIN 8.6 GM/dL (11.7-16.9); LYMPH % 8.8 % (8-40); MCH 26.5 pg (25.7-33.7); MCHC 32.9 g/dl (32.0-35.9); MEAN CELL VOLUME 80.6 fl (80-96); MEAN PLT VOLUME 8.4 fl (7.5-11.1); MONO % 5.8 % (3.8-10.2); PLATELET COUNT 117 K/MM3 (134-434); RBC 3.25 M/mm3 (4.00-5.60); RDW 17.8 % (11.9-15.9); WHITE BLOOD COUNT 8.4 K/mm3 (4.0-10.0)
[2019-12-02] MEDS: CLOPIDOGREL BISULFATE 75 MG TABLET (FP) PO SCH (13:30)
--- NOTE | 2019-12-02 13:49 | CONSULT ---
Admitting History and Physical - Admission History of Present Illness: 79 y/o man with h/o chronic systolic heart failure , CAD, s/p PCI ,CKD, s/p medtronic ICD, DM, PUD s/p partial gastrectomy, Achalasia , CABG, HTN, HLP,penile implant , and copd ( 2 L of O2 ) , who presented after a fall and was found to have L sided femoral neck Fx Selected Entries 11/30/19 11/30/19 11/30/19 07:10 12:00 17:00 Supper Temperature 97.9 F 98.2 F 97.9 F Pulse Rate 55 L Pulse Rate [ 74 78 Apical] Blood Pressure 121/79 Blood Pressure 132/76 134/79 [Left Arm] O2 Sat by Pulse Oximetry (%) Oxygen Delivery Method 11/30/19 11/30/19 12/01/19 19:22 20:50 02:24 Supper 50% Temperature 98.1 F 97.9 F Pulse Rate 76 75 Pulse Rate [ Apical] Blood Pressure 120/62 110/56 L Blood Pressure [Left Arm] O2 Sat by Pulse Oximetry (%) Oxygen Delivery Method 12/01/19 12/01/19 12/01/19 05:51 10:00 16:14 Supper Temperature 98.3 F 97.6 F Pulse Rate 67 97 H Pulse Rate [ Apical] Blood Pressure 107/49 L 104/52 L 156/71 Blood Pressure [Left Arm] O2 Sat by Pulse Oximetry (%) Oxygen Delivery Method 12/01/19 12/01/19 12/01/19 16:30 16:45 17:00 Supper Temperature Pulse Rate 97 H 100 H 100 H Pulse Rate [ Apical] Blood Pressure 130/59 L 133/69 110/60 Blood Pressure [Left Arm] O2 Sat by Pulse Oximetry (%) Oxygen Delivery Method 12/01/19 12/01/19 12/01/19 17:15 17:30 17:45 Supper Temperature Pulse Rate 98 H 104 H 102 H Pulse Rate [ Apical] Blood Pressure 108/60 117/54 L 100/53 L Blood Pressure [Left Arm] O2 Sat by Pulse Oximetry (%) Oxygen Delivery Method 12/01/19 12/01/19 12/01/19 18:00 18:15 18:23 Supper Temperature 97.8 F 98.0 F Pulse Rate 102 H 100 H 108 H Pulse Rate [ Apical] Blood Pressure 100/54 L 112/56 L 107/55 L Blood Pressure [Left Arm] O2 Sat by Pulse Oximetry (%) Oxygen Delivery Method 12/01/19 12/01/19 12/02/19 18:50 20:15 00:00 Supper 0 Temperature 97.5 F L 98.2 F Pulse Rate 103 H 97 H Pulse Rate [ Apical] Blood Pressure 104/53 L Blood Pressure [Left Arm] O2 Sat by Pulse Oximetry (%) Oxygen Delivery Method 12/02/19 12/02/19 12/02/19 04:00 08:00 10:00 Supper Temperature 97.9 F 97.9 F Pulse Rate 84 85 Pulse Rate [ Apical] Blood Pressure Blood Pressure [Left Arm] O2 Sat by Pulse 97 97 Oximetry (%) Oxygen Delivery Nasal Cannula Method Laboratory Tests 11/30/19 12/01/19 12/02/19 08:35 06:40 05:30 WBC 6.9 7.9 11.5 H Laboratory Tests 10/31/19 11/30/19 02:22 12:20 COVID-19 (KELLY) Not detected Not detected Seen last 05/30/19-Speech Evaluation, Impression/Plan Impression: Pt tolerated food without vomiting in March 2019. Poor compliance, reclines during and after meals. h/o Achalasia, myotomy, regurtitates after most meals mixed with phlegm. Suspect multifactorial- esophageal dysmotility, pt only wants solid food, no lower dentures, regurgitates/expectorates solid food in phlegm. Advised to go to tertiary center for Motility w/u previously. Observed drinking cup of water/miralax, single sips but rapid overall. Expectorated 1/3 of cup 1 min after intake. Suspect impaired esophageal emptying/possible aspiration, exacerbated by poor behavioral follow through (reclining) - Dysphagia Impressions/Plan Swallowing Skills: Impaired Dysphagia Impressions: Mild Impairment, Moderate Impairment, Risk of Aspiration *Silent aspiration: cannot be R/O at bedside Dysphagia Treatment Plan: Safe Rate, 1/2 tsp. at a time, OOB for meals, OOB for 1 h. after meals, Other (take in small amount and wait to allow clearance through LES) Recommendations: MBS w Esophagus, Other (May benefit from behavioral techniques eg diaphragmatic breathing but compliance is questionable) - Recommendations Diet Consistency: Dysphagia Whole Liquids: Thin Liquids Supplement: Glucerna [facility] 05/31/19 intermittent silent anterograde aspiration on thin liquid. impaired esoph emptying on all consistencies Risk of retrogrADE ASPIRATION clinically, pt expectorates after meals. REc-Soft, nectar, several small meals, HOB elevated f/u GI-w/u regarding structural vs motility deficits monitor pulm/nutritional status Chest CT-10/30 bud infiltrates bilaterally suspicious for acute PNA. CXR 11/30/19 NAD Per EMR-Weights 05/2019 170lbs 10/2019 190lbs? accuraCY? Now 171 lbs Reg diet/thin liquids ordered. Nursing reports regurgitation after lunch, coughing. Aspiration? Pt seen bedside c/o that he feels terrible.Nursing aware- receiving Morphine for pain/ BP reduced. Limitations to Obtaining History: Clinical Condition - Past Medical History Cardiovascular: Yes: CAD, CHF, HTN, Hyperlipdemia, [place] Pulmonary: Yes: Asthma, Bronchitis, COPD, Pneumonia Gastrointestinal: Yes: Constipation Renal/: Yes: BPH Heme/Onc: Yes: Cancer (Lung) Musculoskeletal: Yes: Chronic low back pain, Osteoarthritis Endocrine: Yes: Diabetes Mellitus - Past Surgical History Past Surgical History: Yes: CABG, Cholecystectomy - Smoking History Smoking history: Former smoker Have you smoked in the past 12 months: No Aproximately how many cigarettes per day: 40 If you are a former smoker, when did you quit?: 2017 - Alcohol/Substance Use Hx Alcohol Use: No History of Substance Use: reports: None - Social History ADL: Independent Occupation: retired: worked for [employer] History of Recent Travel: No History - Admission Reason For Visit: FRACTURE OF HIP - Diagnostics X-ray: Report Reviewed Modified Barium Swallow: Report Reviewed ([facility] 05/31/19 intermittent silent anterograde aspiration on thin liquid. impaired esoph emptying on all consi stencies Risk of retrogrADE ASPIRATION clinically, pt expectorates after meals. REc-Soft, nectar, several small meals, HOB elevated f/u GI-w/u regarding structural vs motility deficits monitor pulm/nutritional status) - General Mental Status: Awake and Alert (weak, tired, medicated), Able to Follow Commands, Flat Affect Attention: Moderate Impairment Ability to Follow Directions: Fair - Hearing Hearing: Functional Speech Evaluation - Communication Primary Language: PASHTO Communication: Yes: Simple Responses (limited, weak, sleepy, feels "terrible", Nursing aware) - Speech Characteristics Voice Loudness: Mildly Soft/Quiet Voice Phonatory-based Quality: Yes: Normal Articulation: Yes: Precise - Language/Auditory Comprehension Follows: Yes: 1 Stage Simple Commands Observation: Comprehends Conversational Speech: Yes - Swallow Evaluation/Bedside Assessment Current Nutritional Intake: NPO Oral Secretions: Yes: WFL Dentition: Yes: Edentulous Facial Symmetry at Rest: Symmetrical A-P Transit: WFL Coughing/Throat Clear: Yes (reported as pt expectorated after lunch. Aspiration? ) Recommendations - Speech Evaluation, Impression/Plan Impression: Pt ate reg lunch/thin liquids, cough reported as pt expectorated after lunch. Aspiration? h/o achalasia, regurgitation, aspiration on thin liquids. - Disposition Discharge to: To be Determined - Dysphagia Impressions/Plan Swallowing Skills: Impaired Dysphagia Impressions: Moderate Impairment, Suspect Aspiration *Silent aspiration: cannot be R/O at bedside Recommendations: GI Consult, Other (once awake, stronger, trial of puree/nectar thick liquid, meds in applesauce. If lethargy, congestion, fever,expectorates, may need to hold po until GI assessment, MBS/esophagus)
[2019-12-02] MEDS ORDERED: ENOXAPARIN NA (PORCINE) 30 MG/0.3 ML DISP.SYRIN SQ SCH (14:30)
[2019-12-02] MEDS ORDERED: oxyCODONE HCL 5 MG TABLET PO PRN ×2 (15:03→15:33)
--- NOTE | 2019-12-02 15:03 | PN ---
Teaching Attending Note Name of Resident: Ed Nicholas ATTENDING PHYSICIAN STATEMENT I saw and evaluated the patient. I reviewed the resident's note and discussed the case with the resident. I agree with the resident's findings and plan as documented. SUBJECTIVE: seen this am around 9 am did not feel well, could not tell why. denied Cp , denied weakness. no N/V . no events over night . pain in L hip is tolerable . OBJECTIVE: BP 90/50 NAD, lethargic and pale HEENT: MMM, no JVD, no facial droop. deformed R pupil. round L pupil CV: RRR, No MRG Lungs: CTAB Abd: soft, ND, NL BS Ext: no edema over UEs,LUE with IV dean in antecubital area, no erythema of skin. no edema on RLE. L lateral hip edema has decreased. a surgical dressing on lateral L hip. no edema on L leg . 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 pain with changing the angle of the L foot Neuro: EOMI, deformed R pupil,No facial droop. EOMI, strength 5/5 in RUE and RLE proximally and distally. minimal effort in LUE , partly due to lethargy. RN in room and patient was able to elevate his arm to her commands . unable to do LLE neuro exam due to pain . ASSESSMENT AND PLAN: 79 y/o man with h/o chronic systolic heart failure , CAD, s/p PCI ,CKD, s/p medtronic ICD, DM, PUD s/p partial gastrectomy, Achalasia , CABG, HTN, HLP,penile implant , and copd ( 2 L of O2 ) , who presented after a fall and was found to have L sided femoral neck Fx 1- L Fem neck Fx, s/p intramedullary nail 2- FAll. ? syncope : possible orthostatic hypotension 3- APRYL : due to prerenal azotemia form hypotension , can't r/o ATN 4- h/o HTN 5- h/o CKD 6- h/o CAD, HLP. 7- H/o DM 8- h/o diastolic heart failure plan : - L lateral thigh dressing looks intact and pain is controlled. - cont pain meds but dc 10 mg oxy due to lethargy and hypotension - hypotension due to volume depletion , and blood loss and pain meds . gave 250 cc of NS bolus , start 75 cc of NS and will assess in am. - I doubt true weakness in LUE, responded to RN commands during same encounter, and an hour later on Dr. Nicholas exam, strength was 5/5 in both upper ext with patient being more awake after fluid bolus ( SBP 102) . CT of head obtained and reviewed. - DC diovan due to APRYL and hypotension - hold coreg till BP improves - As per d/w card yesterday, recently had interrogation of ICD for similar epis ode of syncope. No need to repeat - cont SSi , will start low dose levemir in evening if sugar cont to be elevated - dc lovenox and start heparin sq due to APRYL. per RN this afternoon, patient had an episode of aspiration with lunch. Speech eval suggested puree diet. will order BArium swallow when appropriate. seen by GI in 08/27 and , EGD in 08/27 with Biliruth II and gastritis. ASSESSMENT AND PLAN:
[2019-12-02] MEDS ORDERED: ACETAMINOPHEN 1000 MG/100 ML VIAL (NON FORMULARY) IVPB ONE (15:21)
--- NOTE | 2019-12-02 16:11 | PN ---
Physical Exam: SUBJECTIVE: No overnight events. Patient seen and examined. Pt reports pain on L leg. OBJECTIVE: Vital Signs Period Temp Pulse Resp BP Sys/Garcia Pulse Ox Last 24 Hr 97.5 F-98.2 F 84-108 16-26 93-156/40-71 95-100 GENERAL: The patient is lethargic. Oriented to person and place. Pt in pain. HEENT: NT, NC, dry MMM LUNGS: Breath sounds equal, clear to auscultation bilaterally, no wheezes, no crackles, no accessory muscle use. HEART: Regular rate and rhythm, S1, S2 without murmur, rub or gallop. ABDOMEN: Soft, nontender, nondistended, normoactive bowel sounds, no guarding, no rebound EXTREMITIES: 2+ pulses, warm, well-perfused, area around L thigh site is non- erythematous. dressing is intact. Pain upon removing pt's socks on L foot. NEUROLOGICAL: gait not observed. strength 5/5 UE. sensation intact b/l UE. Sensation intact in b/l LE. PSYCH: Normal mood, normal affect. SKIN: Warm, dry, normal turgor, no rashes or lesions noted Laboratory Results - last 24 hr 12/01/19 12/01/19 12/01/19 17:25 18:02 22:06 WBC 10.2 H RBC 4.02 Hgb 10.6 L Hct 32.0 L MCV 79.8 L MCH 26.3 MCHC 33.0 RDW 17.3 H Plt Count 151 MPV 8.0 Absolute Neuts (auto) Neutrophils % Lymphocytes % Monocytes % Eosinophils % Basophils % Nucleated RBC % Sodium Potassium Chloride Carbon Dioxide Anion Gap BUN Creatinine Est GFR (CKD-EPI)AfAm Est GFR (CKD-EPI)NonAf POC Glucometer 159 175 Random Glucose Calcium Phosphorus Magnesium 12/02/19 12/02/19 12/02/19 05:30 05:30 06:40 WBC 11.5 H RBC 3.28 L Hgb 8.5 L Hct 26.2 L D MCV 79.9 L MCH 26.0 MCHC 32.6 RDW 17.4 H Plt Count 117 L D MPV 7.9 Absolute Neuts (auto) Neutrophils % Lymphocytes % Monocytes % Eosinophils % Basophils % Nucleated RBC % Sodium 141 Potassium 4.6 Chloride 112 H Carbon Dioxide 16 L Anion Gap 12 BUN 61.4 H Creatinine 2.4 H Est GFR (CKD-EPI)AfAm 29.07 Est GFR (CKD-EPI)NonAf 25.08 POC Glucometer 186 Random Glucose 192 H Calcium 8.0 L Phosphorus 5.4 H Magnesium 2.0 12/02/19 12/02/19 11:25 12:10 WBC 8.4 RBC 3.25 L Hgb 8.6 L Hct 26.2 L MCV 80.6 MCH 26.5 MCHC 32.9 RDW 17.8 H Plt Count 117 L MPV 8.4 Absolute Neuts (auto) 7.2 Neutrophils % 85.0 H Lymphocytes % 8.8 D Monocytes % 5.8 Eosinophils % 0.1 Basophils % 0.3 Nucleated RBC % 0 Sodium Potassium Chloride Carbon Dioxide Anion Gap BUN Creatinine Est GFR (CKD-EPI)AfAm Est GFR (CKD-EPI)NonAf POC Glucometer 213 Random Glucose Calcium Phosphorus Magnesium Active Medications Generic Name Dose Route Start Last Admin Trade Name Freq PRN Reason Stop Dose Admin Acetaminophen 650 mg 12/01/19 16:30 Tylenol - PO Q4H PRN FEVER Al Hydroxide/Mg Hydroxide 30 ml 12/01/19 16:30 Mylanta Oral Suspension - PO PCHS PRN DYSPEPSIA Albuterol Sulfate 2 puff 12/01/19 16:30 Ventolin Hfa Inhaler - IH Q8H PRN SHORTNESS OF BREATH Ascorbic Acid 500 mg 12/01/19 22:00 12/02/19 09:39 Vitamin C - PO 500 mg BID KADEEM Administration Budesonide/Formoterol Fumarate 1 puff 12/01/19 22:00 12/02/19 09:39 Symbicort 160/4.5mcg - IH 1 puff BID KADEEM Administration Carvedilol 3.125 mg 12/01/19 22:00 12/02/19 09:13 Coreg - PO Not Given BID KADEEM Clopidogrel Bisulfate 75 mg 12/02/19 14:00 12/02/19 13:30 Plavix - PO Not Given DAILY KADEEM Cyclobenzaprine HCl 10 mg 12/01/19 22:00 12/02/19 13:30 Flexeril - PO Not Given TID KADEEM Docusate Sodium 100 mg 12/01/19 16:30 12/02/19 11:33 Colace - PO 100 mg Q12H PRN Administration CONSTIPATION Escitalopram Oxalate 20 mg 12/02/19 10:00 12/02/19 09:39 Lexapro - PO 20 mg DAILY KADEEM Administration Ferrous Sulfate 325 mg 12/01/19 17:30 12/02/19 11:33 Feosol - PO 325 mg TIDCM KADEEM Administration Heparin Sodium (Porcine) 5,000 unit 12/02/19 22:00 Heparin - SQ TID KADEEM Sodium Chloride 1,000 mls @ 75 mls/hr 12/02/19 09:15 12/02/19 09:12 Normal Saline - IV 75 mls/hr ASDIR KADEEM Administration Insulin Aspart 1 vial 12/01/19 16:30 12/02/19 11:33 Novolog Vial Sliding Scale - SQ 2 units ACHS KADEEM Administration Protocol Melatonin 10 mg 12/01/19 22:00 12/01/19 23:00 Melatonin PO 10 mg HS KADEEM Administration Oxycodone HCl 5 mg 12/02/19 15:33 Roxicodone - PO Q4H PRN PAIN LEVEL 6-10 Pantoprazole Sodium 40 mg 12/02/19 10:00 12/02/19 09:39 Protonix - PO 40 mg DAILY KADEEM Administration Rosuvastatin Calcium 20 mg 12/01/19 22:00 12/01/19 22:00 Crestor - PO 20 mg HS KADEEM Administration Tamsulosin HCl 0.4 mg 12/01/19 22:00 12/01/19 22:00 Flomax - PO 0.4 mg HS KADEEM Administration Head CT: no acute intracranial pathology ASSESSMENT/PLAN: 79 YO M PMH DM, HTN, PUD s/p gastrectomy, achalasia s/p myotomy, COPD, CKD stage III, BPH, gout, CAD s/p CABG, PAD s/p fem-pop, heart failure and ICD, who presents after a fall. #Left femoral neck fracture -POD#1 s/p L IM nail -c/w oxycodone 5 mg PO Q4H PRN. Pt was lethargic and hypotensive. d/c oxycodone 10 mg #Fall -at least 7 falls within past 6 months. pt endorses lightheadedness b/f falls. -Orthostatic vitals: Supine 96/45 HR:79;;; Sitting 88/51 HR:81. unable to perform standing vitals. #APRYL on CKD -BUN/Cr increased to 61.4/2.4. -start NS @75 ml/hr. bolus of 250 for hypotension #Systolic CHF -worsening APRYL likely 2/2 hypotension and volume depletion. BUN/Cr increased to 61.4/2.4. valsartan (diovan) was d/c. -hold carvedilol 3.125 mg PO BID due to hypotension - hold lasix 2/2 volume depletion & hypotension -plavix #DM -ISS -BGM -levemir 10 units HS. Will reassess based on glucose tmw #Food Aspiration -aspiration witnessed by nurse. -speech and swallow c/s appreciated. start Dysphagia whole; thin liquids, glucerna -CXR: no acute pathology #HTN: d/c valsartan 2/2 APRYL #PUD: protonix 40 daily #CAD: hold carvedilol #HLD: Rosuvastatin 20 mg PO HS #BPH: c/w Flomax #DVT PPX: D/c lovenox 2/2 APRYL . Start heparin 5000 units TID. #FEN started NS @75 ml/hr Monitor lytes Dysphagia whole; thin liquids, glucerna #DISPO maintain tele Visit type - Emergency Visit Emergency Visit: Yes ED Registration Date: 11/30/19 Care time: The patient presented to the Emergency Department on the above date and was hospitalized for further evaluation of their emergent condition. - New Patient This patient is new to me today: No - Critical Care Critical Care patient: No - Medication Review Med list reviewed for High Risk Meds patients 65 and older: Yes ATTENDING PHYSICIAN STATEMENT I saw and evaluated the patient. I reviewed the resident's note and discussed the case with the resident. I agree with the resident's findings and plan as documented. SUBJECTIVE: OBJECTIVE: ASSESSMENT AND PLAN:
--- NOTE | 2019-12-02 19:07 | PN ---
Progress Note (short form) - Note Progress Note: Pt lying in bed, confused, not responsive to questions but making eye contact at times. at bedside. Last Vital Signs Temp Pulse Resp BP Pulse Ox 97.3 F L 86 20 118/66 86 L 12/02/19 17:00 12/02/19 17:00 12/02/19 17:00 12/02/19 17:00 12/02/19 17:00 LLE dressings cdi calves soft nt moving in response to lt 2+ DP Laboratory Results - last 24 hr 12/01/19 12/02/19 12/02/19 22:06 05:30 05:30 WBC 11.5 H RBC 3.28 L Hgb 8.5 L Hct 26.2 L D MCV 79.9 L MCH 26.0 MCHC 32.6 RDW 17.4 H Plt Count 117 L D MPV 7.9 Absolute Neuts (auto) Neutrophils % Lymphocytes % Monocytes % Eosinophils % Basophils % Nucleated RBC % Sodium 141 Potassium 4.6 Chloride 112 H Carbon Dioxide 16 L Anion Gap 12 BUN 61.4 H Creatinine 2.4 H Est GFR (CKD-EPI)AfAm 29.07 Est GFR (CKD-EPI)NonAf 25.08 POC Glucometer 175 Random Glucose 192 H Calcium 8.0 L Phosphorus 5.4 H Magnesium 2.0 12/02/19 12/02/19 12/02/19 06:40 11:25 12:10 WBC 8.4 RBC 3.25 L Hgb 8.6 L Hct 26.2 L MCV 80.6 MCH 26.5 MCHC 32.9 RDW 17.8 H Plt Count 117 L MPV 8.4 Absolute Neuts (auto) 7.2 Neutrophils % 85.0 H Lymphocytes % 8.8 D Monocytes % 5.8 Eosinophils % 0.1 Basophils % 0.3 Nucleated RBC % 0 Sodium Potassium Chloride Carbon Dioxide Anion Gap BUN Creatinine Est GFR (CKD-EPI)AfAm Est GFR (CKD-EPI)NonAf POC Glucometer 186 213 Random Glucose Calcium Phosphorus Magnesium 12/02/19 16:27 WBC RBC Hgb Hct MCV MCH MCHC RDW Plt Count MPV Absolute Neuts (auto) Neutrophils % Lymphocytes % Monocytes % Eosinophils % Basophils % Nucleated RBC % Sodium Potassium Chloride Carbon Dioxide Anion Gap BUN Creatinine Est GFR (CKD-EPI)AfAm Est GFR (CKD-EPI)NonAf POC Glucometer 193 Random Glucose Calcium Phosphorus Magnesium A: POD 1 L hip IM nail P: pt with delirium today, should improve post op as ct negative for acute process avoid opiates recommend remove castellanos as soon as possible to avoid UTI OOB to chair, start PT when mental status improved DVT proph w LMWH
[2019-12-02] MEDS: TAMSULOSIN HCL 0.4 MG CAP PO SCH (22:01)
[2019-12-02] MEDS: HEPARIN NA (PORCINE) 5,000 UNITS/ML 1ML VIAL SQ SCH (22:01)
[2019-12-02] MEDS: INSULIN (LEVEMIR) 100 UNITS/ML UNITS SQ SCH (22:01)
[2019-12-02] MEDS: ROSUVASTATIN CA 20 MG TABLET (FP) PO SCH (22:01)
[2019-12-02] MEDS: MELATONIN 5 MG TABLETS PO SCH (22:02)
[2019-12-03] MEDS ORDERED: ACETAMINOPHEN 500 MG TABLET (FP) PO ONE (02:25)
[2019-12-03] MEDS ORDERED: ACETAMINOPHEN 1000 MG/100 ML VIAL (NON FORMULARY) IVPB ONE ×2 (02:27→20:50)
[2019-12-03] MEDS: SODIUM CHLORIDE 1,000 ML IV SCH ×3 (02:30→14:28)
[2019-12-03] MEDS: CYCLOBENZAPRINE HCL 10 MG TABLET (FP) PO SCH ×3 (06:23→22:07)
[2019-12-03] MEDS: INSULIN SLIDING SCALE (NOVOLOG) 1 VIAL SQ SCH ×4 (06:23→22:47)
[2019-12-03] MEDS: HEPARIN NA (PORCINE) 5,000 UNITS/ML 1ML VIAL SQ SCH ×3 (06:23→22:39)
[2019-12-03 06:34] LABS: HEMOGLOBIN 7.6 GM/dL (11.7-16.9); MCH 26.5 pg (25.7-33.7); MCHC 33.1 g/dl (32.0-35.9); MEAN CELL VOLUME 80.1 fl (80-96); MEAN PLT VOLUME 8.3 fl (7.5-11.1); PLATELET COUNT 112 K/MM3 (134-434); RBC 2.87 M/mm3 (4.00-5.60); RDW 17.7 % (11.9-15.9)
[2019-12-03 07:10] LABS: ALBUMIN 2.6 g/dl (3.4-5.0); CALCIUM 8.4 mg/dL (8.5-10.1); MAGNESIUM 2.2 mg/dL (1.8-2.4); POTASSIUM 4.3 mmol/L (3.5-5.1)
[2019-12-03 07:15] LABS: BILIRUBIN,TOTAL 0.9 mg/dL (0.2-1); BLOOD UREA NITROGEN 67.1 mg/dL (7-18); PHOSPHOROUS 3.1 mg/dL (2.5-4.9); TOT PROT 5.8 g/dl (6.4-8.2)
[2019-12-03] MEDS: FERROUS SO4 325 MG TABLET (FP) PO SCH ×3 (08:38→17:26)
[2019-12-03] MEDS: ESCITALOPRAM OXALATE 20 MG TABLET PO SCH (10:39)
[2019-12-03] MEDS: BUDESONIDE/FORMETEROL FUMARATE 160/4.5 mcg INHALER IH SCH ×2 (10:39→22:10)
[2019-12-03] MEDS: CARVEDILOL 3.125 MG TABLET (FP) PO SCH ×2 (10:39→22:07)
[2019-12-03] MEDS: PANTOPRAZOLE 40 MG TABLET PO SCH (10:39)
[2019-12-03] MEDS: CLOPIDOGREL BISULFATE 75 MG TABLET (FP) PO SCH (10:39)
[2019-12-03] MEDS: ASCORBIC ACID 500 MG TABLET (FP) PO SCH ×2 (10:39→22:10)
--- NOTE | 2019-12-03 11:12 | PN ---
Progress Note, Physician History of Present Illness: Sensorium improved to baseline, denies recurrent syncope, left hip discomfort adequately controlled. - Current Medication List Current Medications: Active Medications Acetaminophen (Tylenol -) 650 mg PO Q4H PRN PRN Reason: FEVER Al Hydroxide/Mg Hydroxide (Mylanta Oral Suspension -) 30 ml PO PCHS PRN PRN Reason: DYSPEPSIA Albuterol Sulfate (Ventolin Hfa Inhaler -) 2 puff IH Q8H PRN PRN Reason: SHORTNESS OF BREATH Ascorbic Acid (Vitamin C -) 500 mg PO BID COUNT INCLUDES THE [facility] Last Admin: 12/03/19 10:39 Dose: 500 mg Documented by: Budesonide/Formoterol Fumarate (Symbicort 160/4.5mcg -) 1 puff IH BID COUNT INCLUDES THE [facility] Last Admin: 12/03/19 10:39 Dose: 1 puff Documented by: Carvedilol (Coreg -) 3.125 mg PO BID COUNT INCLUDES THE [facility] Last Admin: 12/03/19 10:39 Dose: 3.125 mg Documented by: Clopidogrel Bisulfate (Plavix -) 75 mg PO DAILY COUNT INCLUDES THE [facility] Last Admin: 12/03/19 10:39 Dose: 75 mg Documented by: Cyclobenzaprine HCl (Flexeril -) 10 mg PO TID COUNT INCLUDES THE [facility] Last Admin: 12/03/19 06:23 Dose: 10 mg Documented by: Docusate Sodium (Colace -) 100 mg PO Q12H PRN PRN Reason: CONSTIPATION Last Admin: 12/02/19 11:33 Dose: 100 mg Documented by: Escitalopram Oxalate (Lexapro -) 20 mg PO DAILY COUNT INCLUDES THE [facility] Last Admin: 12/03/19 10:39 Dose: 20 mg Documented by: Ferrous Sulfate (Feosol -) 325 mg PO TIDCM COUNT INCLUDES THE [facility] Last Admin: 12/03/19 08:38 Dose: 325 mg Documented by: Heparin Sodium (Porcine) (Heparin -) 5,000 unit SQ TID COUNT INCLUDES THE [facility] Last Admin: 12/03/19 06:23 Dose: 5,000 unit Documented by: Sodium Chloride (Normal Saline -) 1,000 mls @ 75 mls/hr IV ASDIR COUNT INCLUDES THE [facility] Last Admin: 12/03/19 10:38 Dose: Not Given Documented by: Insulin Aspart (Novolog Vial Sliding Scale -) [address] [facility] COUNT INCLUDES THE [facility]; Protocol Last Admin: 12/03/19 06:23 Dose: Not Given Documented by: Insulin Detemir (Levemir Vial) 10 units SQ [facility] Last Admin: 12/02/19 22:01 Dose: Not Given Documented by: Melatonin (Melatonin) 10 mg PO [facility] Last Admin: 12/02/19 22:02 Dose: Not Given Documented by: Oxycodone HCl (Roxicodone -) 5 mg PO Q4H PRN PRN Reason: PAIN LEVEL 6-10 Pantoprazole Sodium (Protonix -) 40 mg PO DAILY COUNT INCLUDES THE [facility] Last Admin: 12/03/19 10:39 Dose: 40 mg Documented by: Rosuvastatin Calcium (Crestor -) 20 mg PO [facility] Last Admin: 12/02/19 22:01 Dose: 20 mg Documented by: Tamsulosin HCl (Flomax -) 0.4 mg PO [facility] Last Admin: 12/02/19 22:01 Dose: 0.4 mg Documented by: - Objective Vital Signs: Vital Signs Temperature 97.3 F L 12/03/19 09:35 Pulse Rate 85 12/03/19 09:35 Respiratory Rate 20 12/03/19 09:35 Blood Pressure 116/54 L 12/03/19 09:35 O2 Sat by Pulse Oximetry (%) 96 12/03/19 09:35 Constitutional: Yes: No Distress, Calm, Thin Neck: Yes: Supple Cardiovascular: Yes: Regular Rate and Rhythm Respiratory: Yes: Regular, CTA Bilaterally Gastrointestinal: Yes: Normal Bowel Sounds, Soft Edema: No Labs: CBC, BMP 12/03/19 05:22 12/03/19 05:22 INR, PTT INR 1.08 (0.83-1.09) 12/01/19 06:40 - ....Imaging EKG: Report Reviewed (Tele: NSR) Problem List - Problems (1) Pre-operative cardiovascular examination, ICD in place Code(s): Z01.810 - ENCOUNTER FOR PREPROCEDURAL CARDIOVASCULAR EXAMINATION; Z95.810 - PRESENCE OF AUTOMATIC (IMPLANTABLE) CARDIAC DEFIBRILLATOR (2) CAD (coronary artery disease) Code(s): I25.10 - ATHSCL HEART DISEASE OF [place] CORONARY ARTERY W/O ANG PCTRS Qualifiers: Coronary Disease-Associated Artery/Lesion type: [place] artery [place] vs. transplanted heart: [place] heart Associated angina: without angina Qualified Code(s): I25.10 - Atherosclerotic heart disease of [place] coronary artery without angina pectoris (3) COPD (chronic obstructive pulmonary disease) Code(s): J44.9 - CHRONIC OBSTRUCTIVE PULMONARY DISEASE, UNSPECIFIED Qualifiers: COPD type: unspecified COPD Qualified Code(s): J44.9 - Chronic obstructive pulmonary disease, unspecified (4) History of percutaneous coronary intervention Code(s): Z98.890 - OTHER SPECIFIED POSTPROCEDURAL STATES (5) Hx of CABG Code(s): Z95.1 - PRESENCE OF AORTOCORONARY BYPASS GRAFT (6) ICD (implantable cardioverter-defibrillator) in place Code(s): Z95.810 - PRESENCE OF AUTOMATIC (IMPLANTABLE) CARDIAC DEFIBRILLATOR (7) Ischemic cardiomyopathy Code(s): I25.5 - ISCHEMIC CARDIOMYOPATHY (8) Recurrent falls Code(s): R29.6 - REPEATED FALLS (9) Acute on chronic renal insufficiency Code(s): N28.9 - DISORDER OF KIDNEY AND URETER, UNSPECIFIED; N18.9 - CHRONIC KIDNEY DISEASE, UNSPECIFIED (10) Orthostatic hypotension Code(s): I95.1 - ORTHOSTATIC HYPOTENSION Assessment/Plan 11/21/2019 Echo: Normal LV size with mild LVH and mild decreased LVEF 45-50%, grade I diastolic dysfunction, mild LAE, tr MR, mild-mod TR, mild MI RVSP 34 mmHg Echocardiography (10/15/18): Moderately reduced LV systolic function, LVEF 40-45%, grade 1 diastolic dysfunction, mild , mild MR, moderate TR, mild MI and pulmonary HTN. 1. POD#2 left IM nail for femoral neck hip fracture 2. Chronic LV systolic heart failure (ischemic cardiomyopathy EF 45-50%) 3. CAD s/p IL, CABG, PCI/stents, angina pectoris 4. Post ICD implant 5. HTN 6. Hypercholesterolemia 7. T2DM 8. Acute on CKD stage 3 9. PAD s/p fem-pop bypass and ONLINE TRADER 10. COPD 11. PUD s/p Bilroth II gastrectomy 12. Achalasia s/p Heller's myomectomy 13. Gout 14. Kidney stones 15. Orthostatic hypotension on Northera 16. Gait disturbance 17. Post-op anemia PLAN: 1. Off Diovan 40 qd and Lasix 20 qd pending renal recovery, continue Plavix 75 mg QD, Coreg 3.125 mg BID and Crestor 20 mg QHS. Monitor orthostasis, has not been taking Northera 100 qd 2. DVT prophylaxis and analgesia as needed 3. Monitor Hgb and transfuse as needed 4. PT as tolerated 5. Eventual f/u with Dr. Morales in office
[2019-12-03] MEDS: ACETAMINOPHEN 325 MG TABLET (FP) PO PRN (11:32)
--- NOTE | 2019-12-03 16:03 | PN ---
Progress Note (short form) - Note Progress Note: Pt lying in bed, more responsive today. Notes mild pain LLE. Last Vital Signs Last Vital Signs Temp Pulse Resp BP Pulse Ox 97 F L 99 H 20 111/75 96 12/03/19 13:59 12/03/19 13:59 12/03/19 13:59 12/03/19 13:59 12/03/19 10:00 LLE dressings cdi calves soft nt moving in response to lt 2+ DP Abnormal Lab Results 12/03/19 12/03/19 05:22 05:22 RBC 2.87 L Hgb 7.6 L Hct 23.0 L RDW 17.7 H Plt Count 112 L Chloride 114 H Carbon Dioxide 18 L BUN 67.1 H Creatinine 2.0 H Random Glucose 193 H Calcium 8.4 L Total Protein 5.8 L Albumin 2.6 L A: POD 2 L hip IM nail P: delirium improving, continue to avoid opiates dc castellanos OOB to chair, start PT DVT proph w LMWH, SCDs
--- NOTE | 2019-12-03 18:33 | PN ---
Teaching Attending Note Name of Resident: Ed Nicholas ATTENDING PHYSICIAN STATEMENT I saw and evaluated the patient. I reviewed the resident's note and discussed the case with the resident. I agree with the resident's findings and plan as documented. SUBJECTIVE:seen at around 9 am no fever or chills . No SAWYER , no SOB , painin L hip is very tolerable OBJECTIVE: NAD, awake, ,cooperative , much better looking than yesterday HEENT: MMM, no JVD, no facial droop. deformed R pupil. round L pupil CV: RRR, No MRG Lungs: CTAB Abd: soft, ND, NL BS Ext: no edema over UEs,LUE . no edema on RLE. L lateral hip edema. a surgical dressing on lateral L hip. No bruising around it . no edema on L leg . can spot remover toes and foot. Dp 2+ b/l Neuro: EOMI, deformed R pupil,No facial droop. EOMI, strength 5/5 in RUE and RLE and LUE proximally and distally. ASSESSMENT AND PLAN: 79 y/o man with h/o chronic systolic heart failure , CAD, s/p PCI ,CKD, s/p medtronic ICD, DM, PUD s/p partial gastrectomy, Achalasia , CABG, HTN, HLP,penile implant , and copd ( 2 L of O2 ) , who presented after a fall and was found to have L sided femoral neck Fx 1- L Fem neck Fx, s/p intramedullary nail 2- FAll. ? syncope : possible orthostatic hypotension 3- APRYL : due to prerenal azotemia form hypotension , can't r/o ATN 4- h/o HTN 5- h/o CKD 6- h/o CAD, HLP. 7- H/o DM 8- h/o diastolic heart failure 9- aspiration event : no signs of PNA plan : - BP, lethargy have improved - cont to manage pain with minmal amount of oxy . use tylenol - cont IVF . BP improved - contt o hold diovan due to APRYL and hypotension - cont coreg - cont SSi , will start low dose levemir in evening if sugar cont to be elevated -cont heparin for DVT PX - cont HS insulin at 10 units s. SSI - MBS pending - cont puree deit
[2019-12-03 22:01] LABS: BASO % 0.2 % (0-2.0); HEMATOCRIT 24.2 % (35.4-49); HEMOGLOBIN 8.1 GM/dL (11.7-16.9); MCH 26.8 pg (25.7-33.7); MCHC 33.3 g/dl (32.0-35.9); MEAN CELL VOLUME 80.5 fl (80-96); MEAN PLT VOLUME 8.4 fl (7.5-11.1); MONO % 5.6 % (3.8-10.2); NEUT % 89.2 % (42.8-82.8); PLATELET COUNT 131 K/MM3 (134-434); RBC 3.01 M/mm3 (4.00-5.60); RDW 17.6 % (11.9-15.9); WHITE BLOOD COUNT 5.5 K/mm3 (4.0-10.0)
[2019-12-03] MEDS: ROSUVASTATIN CA 20 MG TABLET (FP) PO SCH (22:07)
[2019-12-03] MEDS: TAMSULOSIN HCL 0.4 MG CAP PO SCH (22:08)
[2019-12-03] MEDS: MELATONIN 5 MG TABLETS PO SCH (22:10)
--- NOTE | 2019-12-03 22:43 | PN ---
Physical Exam: SUBJECTIVE: No overnight events. Patient seen and examined. Pt endorses pain on L leg. OBJECTIVE: Vital Signs Period Temp Pulse Resp BP Sys/Garcia Pulse Ox Last 24 Hr 97 F-99.6 F 85-120 20-20 111-142/54-75 96-97 GENERAL: The patient is lethargic. Oriented to person and place. Pt in pain. HEENT: NT, NC, dry MMM LUNGS: Breath sounds equal, clear to auscultation bilaterally, no wheezes, no crackles, no accessory muscle use. HEART: Regular rate and rhythm, S1, S2 without murmur, rub or gallop. ABDOMEN: Soft, nontender, nondistended, normoactive bowel sounds, no guarding, no rebound EXTREMITIES: 2+ pulses, warm, well-perfused, area around L thigh site is non-erythematous. dressing is intact. NEUROLOGICAL: gait not observed. strength 5/5 UE. sensation intact b/l UE. Sensation intact in b/l LE. PSYCH: Normal mood, normal affect. SKIN: Warm, dry, normal turgor, no rashes or lesions noted Laboratory Results - last 24 hr 12/03/19 12/03/19 12/03/19 05:22 05:22 05:41 WBC 6.0 RBC 2.87 L Hgb 7.6 L Hct 23.0 L MCV 80.1 MCH 26.5 MCHC 33.1 RDW 17.7 H Plt Count 112 L MPV 8.3 Absolute Neuts (auto) Neutrophils % Lymphocytes % Monocytes % Eosinophils % Basophils % Nucleated RBC % Sodium 142 Potassium 4.3 Chloride 114 H Carbon Dioxide 18 L Anion Gap 11 BUN 67.1 H Creatinine 2.0 H Est GFR (CKD-EPI)AfAm 36.24 Est GFR (CKD-EPI)NonAf 31.26 POC Glucometer 171 Random Glucose 193 H Calcium 8.4 L Phosphorus 3.1 Magnesium 2.2 Total Bilirubin 0.9 AST 22 ALT 15 Alkaline Phosphatase 76 Total Protein 5.8 L Albumin 2.6 L 12/03/19 12/03/19 12/03/19 12:28 17:24 21:00 WBC 5.5 RBC 3.01 L Hgb 8.1 L Hct 24.2 L MCV 80.5 MCH 26.8 MCHC 33.3 RDW 17.6 H Plt Count 131 L MPV 8.4 Absolute Neuts (auto) 4.9 Neutrophils % 89.2 H Lymphocytes % 5.0 L D Monocytes % 5.6 Eosinophils % 0.0 D Basophils % 0.2 Nucleated RBC % 0 Sodium Potassium Chloride Carbon Dioxide Anion Gap BUN Creatinine Est GFR (CKD-EPI)AfAm Est GFR (CKD-EPI)NonAf POC Glucometer 255 251 Random Glucose Calcium Phosphorus Magnesium Total Bilirubin AST ALT Alkaline Phosphatase Total Protein Albumin 12/03/19 22:22 WBC RBC Hgb Hct MCV MCH MCHC RDW Plt Count MPV Absolute Neuts (auto) Neutrophils % Lymphocytes % Monocytes % Eosinophils % Basophils % Nucleated RBC % Sodium Potassium Chloride Carbon Dioxide Anion Gap BUN Creatinine Est GFR (CKD-EPI)AfAm Est GFR (CKD-EPI)NonAf POC Glucometer 320 Random Glucose Calcium Phosphorus Magnesium Total Bilirubin AST ALT Alkaline Phosphatase Total Protein Albumin Active Medications Generic Name Dose Route Start Last Admin Trade Name Freq PRN Reason Stop Dose Admin Acetaminophen 650 mg 12/01/19 16:30 12/03/19 11:32 Tylenol - PO 650 mg Q4H PRN Administration FEVER Al Hydroxide/Mg Hydroxide 30 ml 12/01/19 16:30 Mylanta Oral Suspension - PO PCHS PRN DYSPEPSIA Albuterol Sulfate 2 puff 12/01/19 16:30 Ventolin Hfa Inhaler - IH Q8H PRN SHORTNESS OF BREATH Ascorbic Acid 500 mg 12/01/19 22:00 12/03/19 22:10 Vitamin C - PO Not Given BID KADEEM Budesonide/Formoterol Fumarate 1 puff 12/01/19 22:00 12/03/19 22:10 Symbicort 160/4.5mcg - IH Not Given BID KADEEM Carvedilol 3.125 mg 12/01/19 22:00 12/03/19 22:07 Coreg - PO Not Given BID KADEEM Clopidogrel Bisulfate 75 mg 12/02/19 14:00 12/03/19 10:39 Plavix - PO 75 mg DAILY KADEEM Administration Cyclobenzaprine HCl 10 mg 12/01/19 22:00 12/03/19 22:07 Flexeril - PO Not Given TID KADEEM Docusate Sodium 100 mg 12/01/19 16:30 12/02/19 11:33 Colace - PO 100 mg Q12H PRN Administration CONSTIPATION Escitalopram Oxalate 20 mg 12/02/19 10:00 12/03/19 10:39 Lexapro - PO 20 mg DAILY KADEEM Administration Ferrous Sulfate 325 mg 12/01/19 17:30 12/03/19 17:26 Feosol - PO Not Given TIDCM KADEEM Heparin Sodium (Porcine) 5,000 unit 12/02/19 22:00 12/03/19 22:39 Heparin - SQ 5,000 unit TID KADEEM Administration Sodium Chloride 1,000 mls @ 75 mls/hr 12/02/19 09:15 12/03/19 14:28 Normal Saline - IV 75 mls/hr ASDIR KADEEM Administration Insulin Aspart 1 vial 12/01/19 16:30 12/03/19 17:26 Novolog Vial Sliding Scale - SQ 4 units ACHS [facility] Administration Protocol Insulin Detemir 10 units 12/02/19 22:00 12/02/19 22:01 Levemir Vial SQ Not Given HS KADEEM Melatonin 10 mg 12/01/19 22:00 12/03/19 22:10 Melatonin PO Not Given HS [facility] Oxycodone HCl 5 mg 12/02/19 15:33 Roxicodone - PO Q4H PRN PAIN LEVEL 6-10 Pantoprazole Sodium 40 mg 12/02/19 10:00 12/03/19 10:39 Protonix - PO 40 mg DAILY KADEEM Administration Rosuvastatin Calcium 20 mg 12/01/19 22:00 12/03/19 22:07 Crestor - PO Not Given HS KADEEM Tamsulosin HCl 0.4 mg 12/01/19 22:00 12/03/19 22:08 Flomax - PO Not Given HS [facility] ASSESSMENT/PLAN: 79 YO M PMH DM, HTN, PUD s/p gastrectomy, achalasia s/p myotomy, COPD, CKD stage III, BPH, gout, CAD s/p CABG, PAD s/p fem-pop, heart failure and ICD, who presents after a fall. #Left femoral neck fracture -s/p L IM nail -c/w oxycodone 5 mg PO Q4H PRN. Pt was lethargic and hypotensive. d/c oxycodone 10 mg #Fall -at least 7 falls within past 6 months. pt endorses lightheadedness b/f falls. #APRYL on CKD -c/w NS @75 ml/hr. #Systolic CHF -worsening APRYL likely 2/2 hypotension and volume depletion. valsartan (diovan) was d/c 2/2 APRYL -hold carvedilol 3.125 mg PO BID due to hypotension - hold lasix 2/2 volume depletion & hypotension -plavix #DM -ISS -BGM -levemir 10 units HS. Will reassess based on PM glucose #HTN: d/c valsartan 2/2 APRYL #PUD: protonix 40 daily #CAD: hold carvedilol #HLD: Rosuvastatin 20 mg PO HS #BPH: c/w Flomax #DVT PPX: c/w heparin 5000 units TID. #FEN NS @75 ml/hr Monitor lytes Dysphagia whole; thin liquids, glucerna #DISPO maintain tele Visit type - Emergency Visit Emergency Visit: Yes ED Registration Date: 11/30/19 Care time: The patient presented to the Emergency Department on the above date and was hospitalized for further evaluation of their emergent condition. - New Patient This patient is new to me today: No - Critical Care Critical Care patient: No - Medication Review Med list reviewed for High Risk Meds patients 65 and older: Yes ATTENDING PHYSICIAN STATEMENT I saw and evaluated the patient. I reviewed the resident's note and discussed the case with the resident. I agree with the resident's findings and plan as documented. SUBJECTIVE: OBJECTIVE: ASSESSMENT AND PLAN:
[2019-12-03] MEDS: INSULIN (LEVEMIR) 100 UNITS/ML UNITS SQ SCH (22:46)
[2019-12-03 23:28] LABS: URINE APPEARANCE CLOUDY; URINE BILIRUBIN NEGATIVE (NEGATIVE); URINE COLOR YELLOW; URINE KETONE TRACE (NEGATIVE); URINE NITRITE NEGATIVE (NEGATIVE)
[2019-12-03 23:30] LABS: EPI CELLS 4 /uL (0-25.1); HYALINE CASTS 4 /uL (0-3.1); URINE BACTERIA 23 /uL (0-1359); URINE GLUCOSE (UA) TRACE (NEGATIVE); URINE LEUK ESTERASE 2+ (NEGATIVE); URINE PROTEIN 2+ (NEGATIVE); URINE RBC 250 /uL (0-23.9); URINE WBC 829 /uL (0-25.8)
[2019-12-03 23:44] LABS: YEAST SEEN (NEGATIVE)
[2019-12-04] MEDS: CYCLOBENZAPRINE HCL 10 MG TABLET (FP) PO SCH (06:15)
[2019-12-04] MEDS: HEPARIN NA (PORCINE) 5,000 UNITS/ML 1ML VIAL SQ SCH ×3 (06:15→21:32)
[2019-12-04] MEDS: INSULIN SLIDING SCALE (NOVOLOG) 1 VIAL SQ SCH ×4 (06:15→21:32)
[2019-12-04 07:45] LABS: HEMATOCRIT 24.6 % (35.4-49); MCH 26.8 pg (25.7-33.7); MCHC 32.6 g/dl (32.0-35.9); MEAN CELL VOLUME 82.1 fl (80-96); MEAN PLT VOLUME 8.8 fl (7.5-11.1); PLATELET COUNT 130 K/MM3 (134-434); RBC 2.99 M/mm3 (4.00-5.60); WHITE BLOOD COUNT 5.6 K/mm3 (4.0-10.0)
[2019-12-04 08:06] LABS: ALBUMIN 2.6 g/dl (3.4-5.0); BILIRUBIN,TOTAL 0.6 mg/dL (0.2-1); BLOOD UREA NITROGEN 63.4 mg/dL (7-18); CALCIUM 8.5 mg/dL (8.5-10.1); CREATININE 2.2 mg/dL (0.55-1.3); MAGNESIUM 2.3 mg/dL (1.8-2.4); PHOSPHOROUS 2.7 mg/dL (2.5-4.9); TOT PROT 6.2 g/dl (6.4-8.2)
[2019-12-04] MEDS: CARVEDILOL 3.125 MG TABLET (FP) PO SCH ×2 (09:42→21:31)
[2019-12-04] MEDS: ESCITALOPRAM OXALATE 20 MG TABLET PO SCH (09:43)
[2019-12-04] MEDS: BUDESONIDE/FORMETEROL FUMARATE 160/4.5 mcg INHALER IH SCH ×2 (09:43→21:45)
[2019-12-04] MEDS: CLOPIDOGREL BISULFATE 75 MG TABLET (FP) PO SCH (09:43)
[2019-12-04] MEDS ORDERED: SODIUM CHLORIDE 0.45% 1,000 ML IV SCH (09:45)
--- NOTE | 2019-12-04 09:46 | PN ---
Progress Note (short form) - Note Progress Note: Subjective: had fever over night. has minimal pain in his L hip. has SOB. per RN , every time he eats, he starts coughing towards the end of the meal. No N/V . Objective: Vital Signs: Last Vital Signs Temp Pulse Resp BP Pulse Ox 98.4 F 95 H 20 108/42 L 97 12/04/19 09:27 12/04/19 09:27 12/04/19 09:27 12/04/19 09:27 12/04/19 09:27 Laboratory Results - last 24 hr 12/03/19 12/03/19 12/03/19 12:28 17:24 21:00 WBC 5.5 RBC 3.01 L Hgb 8.1 L Hct 24.2 L MCV 80.5 MCH 26.8 MCHC 33.3 RDW 17.6 H Plt Count 131 L MPV 8.4 Absolute Neuts (auto) 4.9 Neutrophils % 89.2 H Lymphocytes % 5.0 L D Monocytes % 5.6 Eosinophils % 0.0 D Basophils % 0.2 Nucleated RBC % 0 Sodium Potassium Chloride Carbon Dioxide Anion Gap BUN Creatinine Est GFR (CKD-EPI)AfAm Est GFR (CKD-EPI)NonAf POC Glucometer 255 251 Random Glucose Calcium Phosphorus Magnesium Total Bilirubin AST ALT Alkaline Phosphatase Total Protein Albumin Urine Color Urine Appearance Urine pH Ur Specific [place] Urine Protein Urine Glucose (UA) Urine Ketones Urine Blood Urine Nitrite Urine Bilirubin Urine Urobilinogen Ur Leukocyte Esterase Urine WBC (Auto) Urine RBC (Auto) Urine Casts (Auto) U Pathogenic Cast Auto U Epithel Cells (Auto) Urine Bacteria (Auto) Urine Yeast (Auto) 12/03/19 12/03/19 12/04/19 22:22 22:25 05:40 WBC 5.6 RBC 2.99 L Hgb 8.0 L Hct 24.6 L MCV 82.1 MCH 26.8 MCHC 32.6 RDW 18.0 H Plt Count 130 L MPV 8.8 Absolute Neuts (auto) Neutrophils % Lymphocytes % Monocytes % Eosinophils % Basophils % Nucleated RBC % Sodium Potassium Chloride Carbon Dioxide Anion Gap BUN Creatinine Est GFR (CKD-EPI)AfAm Est GFR (CKD-EPI)NonAf POC Glucometer 320 Random Glucose Calcium Phosphorus Magnesium Total Bilirubin AST ALT Alkaline Phosphatase Total Protein Albumin Urine Color Yellow Urine Appearance Cloudy Urine pH 5.0 Ur Specific [place] 1.017 Urine Protein 2+ H Urine Glucose (UA) Trace Urine Ketones Trace H Urine Blood 3+ H Urine Nitrite Negative Urine Bilirubin Negative Urine Urobilinogen 1.0 Ur Leukocyte Esterase 2+ H Urine WBC (Auto) 829 Urine RBC (Auto) 250 Urine Casts (Auto) 4 U Pathogenic Cast Auto None U Epithel Cells (Auto) 4 Urine Bacteria (Auto) 23 Urine Yeast (Auto) Seen 12/04/19 12/04/19 05:40 05:45 WBC RBC Hgb Hct MCV MCH MCHC RDW Plt Count MPV Absolute Neuts (auto) Neutrophils % Lymphocytes % Monocytes % Eosinophils % Basophils % Nucleated RBC % Sodium 146 H Potassium 4.0 Chloride 119 H Carbon Dioxide 15 L Anion Gap 12 BUN 63.4 H Creatinine 2.2 H Est GFR (CKD-EPI)AfAm 32.29 Est GFR (CKD-EPI)NonAf 27.86 POC Glucometer 230 Random Glucose 240 H Calcium 8.5 Phosphorus 2.7 Magnesium 2.3 Total Bilirubin 0.6 AST 35 ALT 23 Alkaline Phosphatase 94 Total Protein 6.2 L Albumin 2.6 L Urine Color Urine Appearance Urine pH Ur Specific [place] Urine Protein Urine Glucose (UA) Urine Ketones Urine Blood Urine Nitrite Urine Bilirubin Urine Urobilinogen Ur Leukocyte Esterase Urine WBC (Auto) Urine RBC (Auto) Urine Casts (Auto) U Pathogenic Cast Auto U Epithel Cells (Auto) Urine Bacteria (Auto) Urine Yeast (Auto) Physical Exam: NAD, awake, ,cooperative . audible gurgling. knows name, age, location and thinks it is 2018. knows his address, and his 's name HEENT: MMM, no JVD, no facial droop. deformed R pupil. round L pupil. No stridor CV: RRR, No MRG Lungs: scattered wheezing. R base crackles Abd: soft, ND, NL BS Ext: L hip dressing is intact. edema is better. Dp 2+ . nl sensation in L foot. no edema on legs ASSESSMENT AND PLAN: 79 y/o man with h/o chronic systolic heart failure , CAD, s/p PCI ,CKD, s/p medtronic ICD, DM, PUD s/p partial gastrectomy, Achalasia , CABG, HTN, HLP,p enile implant , and copd ( 2 L of O2 ) , who presented after a fall and was found to have L sided femoral neck Fx 1- L Fem neck Fx, s/p intramedullary nail 2- FAll. ? syncope : possible orthostatic hypotension 3- APRYL on CKD: due to prerenal azotemia form hypotension, can't r/o ATN 4- Fever:likely due to aspiration PNA 5- Hypernatremia /dehydration 6-Acute delirium: improved 7- H/o DM , CAD, HLP 8- h/o diastolic heart failure 9- H/o HTN plan : - fever last night could be due to aspiration PNA ( aspiration event, crackles at R base). need to r/o UTI. - UA last night reviewed. send urine cx - obtain Cxray - start unasyn ( dose for his Cr Cl ) - follow blood cx sent last night - make NPO due to continued aspiration events - change IVF to 1/2 NS due to hypernatremia - monitor sugars. dc levemir , make SSi q 6h - cont to hold diovan due to APRYL and hypotension - cont coreg -cont heparin for DVT PX - MBS pending - dc unessential meds : iron, Vit C, flexeril , and change po protonix to suspension Visit type - Emergency Visit Emergency Visit: Yes ED Registration Date: 11/30/19 Care time: The patient presented to the Emergency Department on the above date and was hospitalized for further evaluation of their emergent condition. - New Patient This patient is new to me today: No - Critical Care Critical Care patient: No - Discharge Referral Referred to [facility] No - Medication Review Med list reviewed for High Risk Meds patients 65 and older: Yes
[2019-12-04] MEDS: SODIUM CHLORIDE 0.45% 1,000 ML IV SCH (09:52)
[2019-12-04] MEDS: PANTOPRAZOLE SOD 40 MG SUSPENSION PACKET PO SCH (10:47)
--- NOTE | 2019-12-04 11:04 | PN ---
Progress Note, Physician History of Present Illness: Fever spike overnight, reports post-prandial choking, denies recurrent syncope, left hip discomfort adequately controlled. - Current Medication List Current Medications: Active Medications Acetaminophen (Tylenol -) 650 mg PO Q4H PRN PRN Reason: FEVER Last Admin: 12/03/19 11:32 Dose: 650 mg Documented by: Al Hydroxide/Mg Hydroxide (Mylanta Oral Suspension -) 30 ml PO PCHS PRN PRN Reason: DYSPEPSIA Albuterol Sulfate (Ventolin Hfa Inhaler -) 2 puff IH Q8H PRN PRN Reason: SHORTNESS OF BREATH Budesonide/Formoterol Fumarate (Symbicort 160/4.5mcg -) 1 puff IH BID [facility] Last Admin: 12/04/19 09:43 Dose: 1 puff Documented by: Carvedilol (Coreg -) 3.125 mg PO BID [facility] Last Admin: 12/04/19 09:42 Dose: 3.125 mg Documented by: Clopidogrel Bisulfate (Plavix -) 75 mg PO DAILY [facility] Last Admin: 12/04/19 09:43 Dose: 75 mg Documented by: Docusate Sodium (Colace -) 100 mg PO Q12H PRN PRN Reason: CONSTIPATION Last Admin: 12/02/19 11:33 Dose: 100 mg Documented by: Escitalopram Oxalate (Lexapro -) 20 mg PO DAILY [facility] Last Admin: 12/04/19 09:43 Dose: 20 mg Documented by: Heparin Sodium (Porcine) (Heparin -) 5,000 unit SQ TID [facility] Last Admin: 12/04/19 06:15 Dose: 5,000 unit Documented by: Ampicillin Sodium/Sulbactam (Sodium 3 gm/ Sodium Chloride) 100 mls @ 200 mls/hr IVPB Q12H [facility] Sodium Chloride (1/2 Normal Saline) 1,000 mls @ 75 mls/hr IV ASDIR [facility] Last Admin: 12/04/19 09:52 Dose: 75 mls/hr Documented by: Insulin Aspart (Novolog Vial Sliding Scale -) 1 vial SQ Q6H [facility]; Protocol Melatonin (Melatonin) 10 mg PO HS [facility] Last Admin: 12/03/19 22:10 Dose: Not Given Documented by: Oxycodone HCl (Roxicodone -) 5 mg PO Q4H PRN PRN Reason: PAIN LEVEL 6-10 Pantoprazole Sodium (Protonix Packets For Oral Suspension -) 40 mg PO DAILY [facility] Last Admin: 12/04/19 10:47 Dose: 40 mg Documented by: Rosuvastatin Calcium (Crestor -) 20 mg PO [facility] Last Admin: 12/03/19 22:07 Dose: Not Given Documented by: Tamsulosin HCl (Flomax -) 0.4 mg PO [facility] Last Admin: 12/03/19 22:08 Dose: Not Given Documented by: - Objective Vital Signs: Vital Signs Temperature 98.4 F 12/04/19 09:27 Pulse Rate 95 H 12/04/19 09:27 Respiratory Rate 12/04/19 09:27 Blood Pressure 108/42 L 12/04/19 09:27 O2 Sat by Pulse Oximetry (%) 97 12/04/19 09:27 Constitutional: Yes: No Distress, Calm, Thin Neck: Yes: Supple Cardiovascular: Yes: Regular Rate and Rhythm Respiratory: Yes: Regular, Diminished, On Nasal O2 Gastrointestinal: Yes: Soft, Hypoactive Bowel Sounds Edema: No Labs: CBC, BMP 12/04/19 05:40 12/04/19 05:40 INR, PTT INR 1.08 (0.83-1.09) 12/01/19 06:40 - ....Imaging Chest X-ray: Report Reviewed (New patchy right infiltrate) EKG: Report Reviewed (Tele: NSR) Problem List - Problems (1) CAD (coronary artery disease) Code(s): I25.10 - ATHSCL HEART DISEASE OF [place] CORONARY ARTERY W/O ANG PCTRS Qualifiers: Coronary Disease-Associated Artery/Lesion type: [place] artery [place] vs. transplanted heart: [place] heart Associated angina: without angina Qualified Code(s): I25.10 - Atherosclerotic heart disease of [place] coronary artery without angina pectoris (2) COPD (chronic obstructive pulmonary disease) Code(s): J44.9 - CHRONIC OBSTRUCTIVE PULMONARY DISEASE, UNSPECIFIED Qualifiers: COPD type: unspecified COPD Qualified Code(s): J44.9 - Chronic obstructive pulmonary disease, unspecified (3) History of percutaneous coronary intervention Code(s): Z98.890 - OTHER SPECIFIED POSTPROCEDURAL STATES (4) Hx of CABG Code(s): Z95.1 - PRESENCE OF AORTOCORONARY BYPASS GRAFT (5) ICD (implantable cardioverter-defibrillator) in place Code(s): Z95.810 - PRESENCE OF AUTOMATIC (IMPLANTABLE) CARDIAC DEFIBRILLATOR (6) Ischemic cardiomyopathy Code(s): I25.5 - ISCHEMIC CARDIOMYOPATHY (7) Recurrent falls Code(s): R29.6 - REPEATED FALLS (8) Acute on chronic renal insufficiency Code(s): N28.9 - DISORDER OF KIDNEY AND URETER, UNSPECIFIED; N18.9 - CHRONIC KIDNEY DISEASE, UNSPECIFIED (9) Orthostatic hypotension Code(s): I95.1 - ORTHOSTATIC HYPOTENSION Assessment/Plan 11/21/2019 Echo: Normal LV size with mild LVH and mild decreased LVEF 45-50%, grade I diastolic dysfunction, mild LAE, tr MR, mild-mod TR, mild ME RVSP 34 mmHg Echocardiography (10/15/18): Moderately reduced LV systolic function, LVEF 40-45%, grade 1 diastolic dysfunction, mild , mild MR, moderate TR, mild ME and pulmonary HTN. 1. POD#3 left IM nail for femoral neck hip fracture 2. Fever referable to asp PNA 3. Chronic LV systolic heart failure (ischemic cardiomyopathy EF 45-50%) 4. CAD s/p MD, CABG, PCI/stents, angina pectoris 5. Post ICD implant 6. HTN 7. Hypercholesterolemia 8. T2DM 9. Acute on CKD stage 3 10. PAD s/p fem-pop bypass and [employer] 11. COPD 12. PUD s/p Bilroth II gastrectomy 13. Achalasia s/p Heller's myomectomy 14. Gout 15. Kidney stones 16. Orthostatic hypotension on Northera 17. Gait disturbance 18. Post-op anemia PLAN: 1. Abx course per C&S, NPO pending MBS, GI evaluation of esophageal dysmotility 2. Off Diovan 40 qd and Lasix 20 qd, judicious hydration pending renal recovery, continue Plavix 75 mg QD, Coreg 3.125 mg BID and Crestor 20 mg QHS. Monitor orthostasis, has not been taking Northera 100 qd 3. DVT prophylaxis and analgesia as needed 4. Monitor Hgb and transfuse as needed 5. PT as tolerated 6. Eventual f/u with Dr. Morales in office
[2019-12-04] MEDS: AMPICILLIN NA/SULBACTAM NA 3 GM in SODIUM CHLORIDE 100 ML IVPB SCH ×2 (11:24→21:49)
[2019-12-04 13:15] LABS: ANISOCYTOSIS 1+; MACROCYTOSIS 0; PLATELET ESTIMATE DECREASED
[2019-12-04] MEDS: TAMSULOSIN HCL 0.4 MG CAP PO SCH (21:31)
[2019-12-04] MEDS: ROSUVASTATIN CA 20 MG TABLET (FP) PO SCH (21:31)
[2019-12-04] MEDS: MELATONIN 5 MG TABLETS PO SCH (21:32)
[2019-12-04] MEDS ORDERED: PT OWN MED DRAWER 7, Y5N ONE (21:47)
[2019-12-05] MEDS: HEPARIN NA (PORCINE) 5,000 UNITS/ML 1ML VIAL SQ SCH ×3 (06:25→22:44)
[2019-12-05] MEDS: INSULIN SLIDING SCALE (NOVOLOG) 1 VIAL SQ SCH ×4 (06:26→23:02)
[2019-12-05 08:12] LABS: BLOOD UREA NITROGEN 54.8 mg/dL (7-18); CALCIUM 8.1 mg/dL (8.5-10.1); CREATININE 1.6 mg/dL (0.55-1.3); POTASSIUM 4.1 mmol/L (3.5-5.1)
[2019-12-05 08:17] LABS: BASO % 0.6 % (0-2.0); EOS % 1.7 % (0-4.5); LYMPH % 15.1 % (8-40); MCH 26.8 pg (25.7-33.7); MCHC 33.2 g/dl (32.0-35.9); MEAN CELL VOLUME 80.7 fl (80-96); MEAN PLT VOLUME 8.8 fl (7.5-11.1); MONO % 7.2 % (3.8-10.2); NEUT % 75.4 % (42.8-82.8); PLATELET COUNT 141 K/MM3 (134-434); WHITE BLOOD COUNT 3.6 K/mm3 (4.0-10.0)
[2019-12-05 08:38] LABS: HEMOGLOBIN 5.6 GM/dL (11.7-16.9)
[2019-12-05] MEDS ORDERED: PT OWN MED DRAWER 7, Y5N ONE ×2 (09:20→22:05)
--- NOTE | 2019-12-05 09:22 | CON.GI ---
Consult Consult Specialty:: GI Referred by:: Achalasia Reason for Consultation:: Achalasia - History of Present Illness Chief Complaint: Admitted s/p fall History of Present Illness: 79M admitted 11/29 S/P fall. Asked to evaluate for dysphagia. Has been evaluated for this in the past. Has a history of hiatal hernia, achalasia, s/p myotomy. He has undergone previous modified barium swallows along with S/S evaluation. It revealed recurrent silent aspiration on thin, nectar and honey thick liquids with head in neutral. This was eliminated with small sips and head in flexion while swallowing. He was advised to eat small meals in a chair while sitting fully upright and that he should remain upright for an hour. He had not been following those recommendations and had continued to eat large portions quickly. He currently states that his swallowing of solids "hasn't been that bad" and has tried modifying how he eats and drinks more consistently. Esophagram on previous esophagram revealed hang-up of contrast in the distal esophagus along with tertiary contractions, intrathoracic extension of the fundus of the stomach and narrowing at the GE Junction. She recalls that he was told of a hiatal hernia quite a while ago. Many years after his partial gastrectomy, she confirmed that he had had a surgery for achalasia at [facility]. At his one of his last last office visits with me I gave them the contact information for motility specialists Dr. Yung Aponte at [facility] and Dr. Renetta Graves at [facility]. They had not made an appointment as of yet to see either of them. Mr. Gates states that "the city [place] far". He had an EGD 08/09/[address] Hernandes at [facility] 08/09/18 for follow- up of dysphagia complaints and abnormal esophagram findings as noted above that revealed no evidence of stricture, a 4cm hiatal hernia, gastritis, possible previous fundoplication seen on retroflexion and Biiroth II anastamosis. He had an upper endoscopy in 2016 as well, performed by Dr. Avinash Lyons. It revealed a 2cm hiatal hernia, billroth II anastamosis, food residue in the distal esophagus and body of the stomach. This raised suspicion for gastroparesis. There was no mention of esophageal stricture or resistance of the endoscope upon passage through the GE Junction that would be suggestive of achalasia. he also underwent colonoscopy at that time that led to the removal of tubular adenomas. Hgb today was 5.6. Denies any melena/rectal bleeding. Does state that he saw some blood on toilet paper after s strained bowel movement. he alternates diarrhea and constipation. - History Source History Provided By: Patient, Medical Record Limitations to Obtaining History: No Limitations - Past Medical History Cardio/Vascular: Yes: CAD, CHF, HTN, Hyperlipdemia, SD Pulmonary: Yes: Asthma, Bronchitis, COPD, Pneumonia Gastrointestinal: Yes: Constipation, Other (Colon polyps, achalasia) Renal/: Yes: BPH Heme/Onc: Yes: Anemia Musculoskeletal: Yes: Chronic low back pain, Osteoarthritis Endocrine: Yes: Diabetes Mellitus - Past Surgical History Past Surgical History: Yes: CABG, Cholecystectomy - Alcohol/Substance Use Hx Alcohol Use: No History of Substance Use: reports: None - Smoking History Smoking history: Former smoker Have you smoked in the past 12 months: No Aproximately how many cigarettes per day: 40 If you are a former smoker, when did you quit?: 2017 - Social History Usual Living Arrangement: With Spouse ADL: Independent Occupation: retired: worked for [employer], [place] Place of : [facility] [employer] [facility] History of Recent Travel: No Home Medications - Allergies Allergies/Adverse Reactions: Allergies Allergy/AdvReac Type Severity Reaction Status Date / Time pregabalin [From Lyrica] Allergy Severe Verified 11/30/19 07:39 - Home Medications Home Medications: Ambulatory Orders Carvedilol 3.125 mg PO BID 12/08/18 Escitalopram Oxalate [Lexapro -] 20 mg PO DAILY 12/08/18 Rosuvastatin Calcium [Crestor] 20 mg PO HS 12/08/18 Tamsulosin HCl 0.4 mg PO DAILY 01/11/19 Clopidogrel Bisulfate [Clopidogrel] 75 mg PO DAILY 04/07/19 Melatonin 10 mg PO HS 04/07/19 Sacubitril/Valsartan [Entresto 24 mg-26 mg Tablet] 1 each PO BID 04/07/19 Albuterol Sulfate [Proair Digihaler] 2 puff NEB TID PRN 05/31/19 Bimatoprost [Lumigan] 1 drop DAILY 05/31/19 Furosemide 20 mg PO DAILY 05/31/19 Albuterol 0.083% Nebulizer Fatuma [Ventolin 0.083%] 1 neb NEB QID 11/30/19 Budesonide/Formeterol Fumarate [SYMBICORT 160/4.5mcg -] 1 inh PO BID 11/30/19 Insulin Glargine,Hum.rec.anlog [Lantus Solostar PEN -] 58 units SQ HS 12/01/19 Family Medical History Other Family History: Other: Father (: 87: CAD), Mother (: 60: unclear intraabdominal CA), Brother (6: 1 : leukemia, 1 : CVA, 1 : shot), Sister (4, healthy), Son (1, healthy), Daughter (1, healthy). Other Family History: Nieces x 2 with colon cancer Review of Systems - Review of Systems Constitutional: denies: Chills Cardiovascular: denies: Chest Pain Respiratory: reports: Cough, SOB on Exertion, Wheezing Gastrointestinal: reports: Dysphagia, Vomiting. denies: Abdominal Pain, Bloating, Melena, Nausea, Rectal Bleeding Physical Exam-GI Vital Signs: Vital Signs Temperature 98.0 F 12/05/19 06:00 Pulse Rate 72 12/05/19 06:00 Respiratory Rate 20 12/05/19 06:00 Blood Pressure 130/76 12/05/19 06:00 O2 Sat by Pulse Oximetry (%) 98 12/05/19 06:00 Constitutional: Yes: Calm Eyes: No: Sclera Icterus Cardiovascular: Yes: Regular Rate and Rhythm Respiratory: Yes: CTA Bilaterally Gastrointestinal Inspection: Yes: Scars (upper abdominal trochar scars). No: Distention ...Auscultate: Yes: Normoactive Bowel Sounds ...Palpate: Yes: Soft ...Percussion: No: Tympanitic ...Rectal Exam: Yes: Other (No external lesion, 2 + prostate, scant mucoid olivares stool particles, guaiac negative) Edema: No (No LE edema) Neurological: Yes: Alert Labs: CBC, BMP 12/05/19 05:30 12/05/19 06:00 INR, PTT INR 1.08 (0.83-1.09) 12/01/19 06:40 Problem List - Problems (1) Achalasia Assessment/Plan: Dysphagia: 1. Has history of achalasia with previous surgical therapy 2. Is diabetic with fluctuating glycemic control 3. Does not follow dysphagia type diet 4. Retained food noted on prior EGD raising ? of gastroparesis Plan: Having MBS swallow today Agree with previous S/S evals: Patient needs dietary modifications: eat upright, small portioned, well chewed, minced dysphagia diabetic diet, avoid laying down for 3 hours after eating. Ultimately will need follow-up with motility specialist / tertiary care center given prior history of achalasia: Dr. Yung Aponet from [facility]: [phone], Dr. Gael Graves at [facility]. Explained this to Lupis Kody. Can follow-up to discuss risks/benefits of repeat colonoscopy when acute issues are resolved. h/o colon polyps however multiple other medical problems. Code(s): K22.0 - ACHALASIA OF CARDIA (2) Anemia Assessment/Plan: Worsened anemia from yesterday. Guaiac negative on exam, no overt bleeding r eported ? lab error / alternate etiology of anemia Ordered repeat CBC. Further w/u per primary team Code(s): D64.9 - ANEMIA, UNSPECIFIED Qualifiers: Anemia type: unspecified type Qualified Code(s): D64.9 - Anemia, unspecified
[2019-12-05] MEDS: AMPICILLIN NA/SULBACTAM NA 3 GM in SODIUM CHLORIDE 100 ML IVPB SCH ×2 (09:28→22:44)
[2019-12-05] MEDS: CLOPIDOGREL BISULFATE 75 MG TABLET (FP) PO SCH (09:29)
[2019-12-05] MEDS: PANTOPRAZOLE SOD 40 MG SUSPENSION PACKET PO SCH (09:29)
[2019-12-05] MEDS: ESCITALOPRAM OXALATE 20 MG TABLET PO SCH (09:29)
[2019-12-05] MEDS: CARVEDILOL 3.125 MG TABLET (FP) PO SCH ×2 (09:29→22:44)
[2019-12-05] MEDS: SODIUM CHLORIDE 0.45% 1,000 ML IV SCH (09:30)
[2019-12-05 10:46] LABS: HEMATOCRIT 22.6 % (35.4-49); HEMOGLOBIN 7.3 GM/dL (11.7-16.9); MCH 26.2 pg (25.7-33.7); MCHC 32.4 g/dl (32.0-35.9); MEAN PLT VOLUME 8.2 fl (7.5-11.1); PLATELET COUNT 147 K/MM3 (134-434); RBC 2.79 M/mm3 (4.00-5.60); RDW 18.4 % (11.9-15.9); WHITE BLOOD COUNT 4.6 K/mm3 (4.0-10.0)
--- NOTE | 2019-12-05 10:57 | PN ---
Progress Note, Physician History of Present Illness: Afebrile, await MBS to evaluate post-prandial choking, denies recurrent syncope, left hip discomfort adequately controlled. - Current Medication List Current Medications: Active Medications Acetaminophen (Tylenol -) 650 mg PO Q4H PRN PRN Reason: FEVER Last Admin: 12/03/19 11:32 Dose: 650 mg Documented by: Al Hydroxide/Mg Hydroxide (Mylanta Oral Suspension -) 30 ml PO PCHS PRN PRN Reason: DYSPEPSIA Albuterol Sulfate (Ventolin Hfa Inhaler -) 2 puff IH Q8H PRN PRN Reason: SHORTNESS OF BREATH Budesonide/Formoterol Fumarate (Symbicort 160/4.5mcg -) 1 puff IH BID [facility] Last Admin: 12/04/19 21:45 Dose: 1 puff Documented by: Carvedilol (Coreg -) 3.125 mg PO BID [facility] Last Admin: 12/05/19 09:29 Dose: 3.125 mg Documented by: Clopidogrel Bisulfate (Plavix -) 75 mg PO DAILY [facility] Last Admin: 12/05/19 09:29 Dose: 75 mg Documented by: Docusate Sodium (Colace -) 100 mg PO Q12H PRN PRN Reason: CONSTIPATION Last Admin: 12/02/19 11:33 Dose: 100 mg Documented by: Escitalopram Oxalate (Lexapro -) 20 mg PO DAILY [facility] Last Admin: 12/05/19 09:29 Dose: 20 mg Documented by: Heparin Sodium (Porcine) (Heparin -) 5,000 unit SQ TID [facility] Last Admin: 12/05/19 06:25 Dose: 5,000 unit Documented by: Ampicillin Sodium/Sulbactam (Sodium 3 gm/ Sodium Chloride) 100 mls @ 200 mls/hr IVPB Q12H [facility] Last Admin: 12/05/19 09:28 Dose: 200 mls/hr Documented by: Sodium Chloride (1/2 Normal Saline) 1,000 mls @ 75 mls/hr IV ASDIR [facility] Last Admin: 12/05/19 09:30 Dose: 75 mls/hr Documented by: Insulin Aspart (Novolog Vial Sliding Scale -) 1 vial SQ Q6HPO [facility]; Protocol Last Admin: 12/05/19 06:26 Dose: Not Given Documented by: Melatonin (Melatonin) 10 mg PO [facility] Last Admin: 12/04/19 21:32 Dose: 10 mg Documented by: Oxycodone HCl (Roxicodone -) 5 mg PO Q4H PRN PRN Reason: PAIN LEVEL 6-10 Last Admin: 12/04/19 21:39 Dose: 5 mg Documented by: Pantoprazole Sodium (Protonix Packets For Oral Suspension -) 40 mg PO DAILY [facility] Last Admin: 12/05/19 09:29 Dose: 40 mg Documented by: Rosuvastatin Calcium (Crestor -) 20 mg PO [facility] Last Admin: 12/04/19 21:31 Dose: 20 mg Documented by: Tamsulosin HCl (Flomax -) 0.4 mg PO [facility] Last Admin: 12/04/19 21:31 Dose: 0.4 mg Documented by: - Objective Vital Signs: Vital Signs Temperature 98.8 F 12/05/19 09:40 Pulse Rate 75 12/05/19 09:40 Respiratory Rate 20 12/05/19 09:40 Blood Pressure 135/56 L 12/05/19 09:40 O2 Sat by Pulse Oximetry (%) 98 12/05/19 09:40 Constitutional: Yes: No Distress, Calm, Thin Neck: Yes: Supple Cardiovascular: Yes: Regular Rate and Rhythm Respiratory: Yes: Diminished, On Nasal O2 Gastrointestinal: Yes: Soft, Hypoactive Bowel Sounds Edema: No Labs: CBC, BMP 12/05/19 10:24 12/05/19 06:00 INR, PTT INR 1.08 (0.83-1.09) 12/01/19 06:40 - ....Imaging EKG: Report Reviewed (Tele: SR) Problem List - Problems (1) CAD (coronary artery disease) Code(s): I25.10 - ATHSCL HEART DISEASE OF [place] CORONARY ARTERY W/O ANG PCTRS Qualifiers: Coronary Disease-Associated Artery/Lesion type: [place] artery [place] vs. transplanted heart: ambler heart Associated angina: without angina Qualified Code(s): I25.10 - Atherosclerotic heart disease of [place] coronary artery without angina pectoris (2) COPD (chronic obstructive pulmonary disease) Code(s): J44.9 - CHRONIC OBSTRUCTIVE PULMONARY DISEASE, UNSPECIFIED Qualifiers: COPD type: unspecified COPD Qualified Code(s): J44.9 - Chronic obstructive pulmonary disease, unspecified (3) History of percutaneous coronary intervention Code(s): Z98.890 - OTHER SPECIFIED POSTPROCEDURAL STATES (4) Hx of CABG Code(s): Z95.1 - PRESENCE OF AORTOCORONARY BYPASS GRAFT (5) ICD (implantable cardioverter-defibrillator) in place Code(s): Z95.810 - PRESENCE OF AUTOMATIC (IMPLANTABLE) CARDIAC DEFIBRILLATOR (6) Ischemic cardiomyopathy Code(s): I25.5 - ISCHEMIC CARDIOMYOPATHY (7) Recurrent falls Code(s): R29.6 - REPEATED FALLS (8) Acute on chronic renal insufficiency Code(s): N28.9 - DISORDER OF KIDNEY AND URETER, UNSPECIFIED; N18.9 - CHRONIC KIDNEY DISEASE, UNSPECIFIED (9) Orthostatic hypotension Code(s): I95.1 - ORTHOSTATIC HYPOTENSION Assessment/Plan 11/21/2019 Echo: Normal LV size with mild LVH and mild decreased LVEF 45-50%, grade I diastolic dysfunction, mild LAE, tr MR, mild-mod TR, mild [place] RVSP 34 mmHg Echocardiography (10/15/18): Moderately reduced LV systolic function, LVEF 40-45%, grade 1 diastolic dysfunction, mild , mild MR, moderate TR, mild [place] and pul monary HTN. 1. POD#4 left IM nail for femoral neck hip fracture 2. Fever referable to asp PNA 3. Chronic LV systolic heart failure (ischemic cardiomyopathy EF 45-50%) 4. CAD s/p [place], CABG, PCI/stents, angina pectoris 5. Post ICD implant 6. HTN 7. Hypercholesterolemia 8. T2DM 9. Acute on CKD stage 3 resolving 10. PAD s/p fem-pop bypass and GATE CLERK 11. COPD 12. PUD s/p Bilroth II gastrectomy 13. Achalasia s/p Heller's myomectomy with dysphagia 14. Gout 15. Kidney stones 16. Orthostatic hypotension on Northera 17. Gait disturbance 18. Post-op anemia 19. Hypernatremia PLAN: 1. Abx course per C&S, NPO pending MBS, GI evaluation of esophageal dysmotility appreciated, needs dysphagia diet 2. Off Diovan 40 qd and Lasix 20 qd, judicious hydration and free water r epletion pending renal and hypernatremia recovery, continue Plavix 75 mg QD, Coreg 3.125 mg BID and Crestor 20 mg QHS. Monitor orthostasis, has not been taking Northera 100 qd 3. DVT and GI prophylaxis and analgesia as needed 4. Monitor Hgb and transfuse as needed 5. PT as tolerated 6. Eventual f/u with Dr. Morales in office
[2019-12-05] MEDS: BUDESONIDE/FORMETEROL FUMARATE 160/4.5 mcg INHALER IH SCH ×2 (11:57→22:44)
--- NOTE | 2019-12-05 12:40 | PN ---
Progress Note (short form) - Note Progress Note: 79 yo M POD #4 s/p left IM nail placement. Patient is lying comfortably in bed. States mild pain to hip with ambulation. Working with PT daily. Last Vital Signs Temp Pulse Resp BP Pulse Ox 98.8 F 75 20 135/56 L 98 12/05/19 09:40 12/05/19 09:40 12/05/19 09:40 12/05/19 09:40 12/05/19 09:40 PE: LLE Dressing C/D/I Calves soft NT NVID 2+ DP pulses Abnormal Lab Results 12/04/19 12/05/19 12/05/19 05:40 05:30 06:00 WBC 3.6 L RBC 2.10 L Hgb 5.6 L* Hct 17.0 L D RDW 18.0 H Monocytes % (Manual) 1 L Nucleated RBC % 3 H Sodium 150 H Chloride 123 H Carbon Dioxide 17 L BUN 54.8 H Creatinine 1.6 H Random Glucose 193 H Calcium 8.1 L 12/05/19 10:24 WBC RBC 2.79 L Hgb 7.3 L Hct 22.6 L D RDW 18.4 H Monocytes % (Manual) Nucleated RBC % Sodium Chloride Carbon Dioxide BUN Creatinine Random Glucose Calcium A: POD #4 s/p left IM nail placement P: Hgb 5.6 today. Repeat Hgb 7.3. ? lab error Transfuse as needed Pain control DVT prophylaxis Continue PT WBAT
--- NOTE | 2019-12-05 13:44 | PN ---
Progress Note, Physician History of Present Illness: events noted Chart reviewed 4. days Postoperative surgery Feels better Still with mild pain in the left hip left femur Normal attention span - Current Medication List Current Medications: Active Medications Acetaminophen (Tylenol -) 650 mg PO Q4H PRN PRN Reason: FEVER Last Admin: 12/03/19 11:32 Dose: 650 mg Documented by: Al Hydroxide/Mg Hydroxide (Mylanta Oral Suspension -) 30 ml PO [facility] PRN PRN Reason: DYSPEPSIA Albuterol Sulfate (Ventolin Hfa Inhaler -) 2 puff IH Q8H PRN PRN Reason: SHORTNESS OF BREATH Budesonide/Formoterol Fumarate (Symbicort 160/4.5mcg -) 1 puff IH BID [facility] Last Admin: 12/05/19 11:57 Dose: 1 puff Documented by: Carvedilol (Coreg -) 3.125 mg PO BID [facility] Last Admin: 12/05/19 09:29 Dose: 3.125 mg Documented by: Clopidogrel Bisulfate (Plavix -) 75 mg PO DAILY [facility] Last Admin: 12/05/19 09:29 Dose: 75 mg Documented by: Docusate Sodium (Colace -) 100 mg PO Q12H PRN PRN Reason: CONSTIPATION Last Admin: 12/02/19 11:33 Dose: 100 mg Documented by: Escitalopram Oxalate (Lexapro -) 20 mg PO DAILY [facility] Last Admin: 12/05/19 09:29 Dose: 20 mg Documented by: Heparin Sodium (Porcine) (Heparin -) 5,000 unit SQ TID [facility] Last Admin: 12/05/19 06:25 Dose: 5,000 unit Documented by: Ampicillin Sodium/Sulbactam (Sodium 3 gm/ Sodium Chloride) 100 mls @ 200 mls/hr IVPB Q12H [facility] Last Admin: 12/05/19 09:28 Dose: 200 mls/hr Documented by: Sodium Chloride (1/2 Normal Saline) 1,000 mls @ 75 mls/hr IV ASDIR [facility] Last Admin: 12/05/19 09:30 Dose: 75 mls/hr Documented by: Insulin Aspart (Novolog Vial Sliding Scale -) 1 vial SQ Q6HPO [facility]; Protocol Last Admin: 12/05/19 11:57 Dose: Not Given Documented by: Melatonin (Melatonin) 10 mg PO [facility] Last Admin: 12/04/19 21:32 Dose: 10 mg Documented by: Oxycodone HCl (Roxicodone -) 5 mg PO Q4H PRN PRN Reason: PAIN LEVEL 6-10 Last Admin: 12/04/19 21:39 Dose: 5 mg Documented by: Pantoprazole Sodium (Protonix Packets For Oral Suspension -) 40 mg PO DAILY [facility] Last Admin: 12/05/19 09:29 Dose: 40 mg Documented by: Rosuvastatin Calcium (Crestor -) 20 mg PO [facility] Last Admin: 12/04/19 21:31 Dose: 20 mg Documented by: Tamsulosin HCl (Flomax -) 0.4 mg PO [facility] Last Admin: 12/04/19 21:31 Dose: 0.4 mg Documented by: - Objective Vital Signs: Vital Signs Temperature 98.8 F 12/05/19 09:40 Pulse Rate 75 12/05/19 09:40 Respiratory Rate 20 12/05/19 09:40 Blood Pressure 135/56 L 12/05/19 09:40 O2 Sat by Pulse Oximetry (%) 98 12/05/19 09:40 Constitutional: Yes: Well Nourished Eyes: Yes: WNL HENT: Yes: WNL Neurological: Yes: Alert, Oriented, Cran Nerves II-XII Intact ...Motor Strength: WNL, LLE (3) Labs: CBC, BMP 12/05/19 10:24 12/05/19 06:00 INR, PTT INR 1.08 (0.83-1.09) 12/01/19 06:40 Problem List - Problems (1) Neuropathy Code(s): G62.9 - POLYNEUROPATHY, UNSPECIFIED (2) Chronic low back pain Code(s): M54.5 - LOW BACK PAIN; G89.29 - OTHER CHRONIC PAIN (3) Gait instability Code(s): R26.81 - UNSTEADINESS ON FEET (4) Type 2 diabetes mellitus Code(s): E11.9 - TYPE 2 DIABETES MELLITUS WITHOUT COMPLICATIONS Assessment/Plan 1. Cymbalta 20 mg once daily. 2. Physical therapy. 3. Follow-up with gastroenterology. 4. Out of bed to chair as tolerated.
--- NOTE | 2019-12-05 13:46 | PN ---
Progress Note, DOBBY LOOM CHAIN PEGGER - Note Progress Note: 79 yo male scheduled for a modified barium swallow study today to rule out asp iration risk. DOBBY LOOM CHAIN PEGGER able to perform MBS secondary to low blood count. Pt is currently unavailable. DOBBY LOOM CHAIN PEGGER spoke to ore charger who reported that pt blood count procedure could take up to 4 hours. DOBBY LOOM CHAIN PEGGER will try again tomorrow.
--- NOTE | 2019-12-05 14:03 | PN ---
Teaching Attending Note Name of Resident: Geovanna Page ATTENDING PHYSICIAN STATEMENT I saw and evaluated the patient. I reviewed the resident's note and discussed the case with the resident. I agree with the resident's findings and plan as documented. SUBJECTIVE: No fever or chills. No events last night, no pain when not moved. No N/V. OBJECTIVE: NAD, awake, ,cooperative . knows location, age, year and month . HEENT: MMM, no JVD, no facial droop. deformed R pupil. round L pupil CV: RRR, No MRG Lungs: R base crackles other nuno clear Abd: soft, ND, NL BS Ext: L hip dressing is intact.small bruise posteriorly but no increased edema Dp 2+ . nl sensation in L foot. no edema on legs. ASSESSMENT AND PLAN: 79 y/o man with h/o chronic systolic heart failure , CAD, s/p PCI ,CKD, s/p medtronic ICD, DM, PUD s/p partial gastrectomy, Achalasia , CABG, HTN, HLP,penile implant , and copd ( 2 L of O2 ) , who presented after a fall and was found to have L sided femoral neck Fx 1- L Fem neck Fx, s/p intramedullary nail 2- FAll. ? syncope : possible orthostatic hypotension 3- APRYL on CKD: due to prerenal azotemia form hypotension, can't r/o ATN 4- Fever: likely due to aspiration PNA 5- Hypernatremia /dehydration 6- Acute delirium: improved 7- H/o DM , CAD, HLP 8- h/o diastolic heart failure 9- H/o HTN plan : - Repeat CBC with Hb of 7.3 . probably initial blood was drawn form arm with IVF infusion. no need for transfusion - cont unasyn . - follow urine and blood cx - NPO pending MBS - GI work up in progress fro achalasia - cont 1/2 NS fro hypernatremia and APRYL -cont to hold levemir. cont SSI q 6h. - cont to hold diovan due to APRYL - cont coreg - cont heparin for DVT PX - cont [facility]
--- NOTE | 2019-12-05 15:50 | PN ---
Physical Exam: SUBJECTIVE: Patient seen and examined at bedside. The patient reports that his pain is manageable unless he moves, in which case it increases to a 7/10 in severity. The patient's Hgb came back in the morning as 5.6, but this was most likely a lab error. A repeat Hgb came back 7.3. The patient reports feeling a little fatigued and still has choking on his food. The patient denies fever/chills, shortness of breath, nausea, vomiting, diarrhea, constipation, dysuria, and muscle aches. The patient is able to pass gas since the surgery but has not yet had a bowel movement. OBJECTIVE: Vital Signs Period Temp Pulse Resp BP Sys/Garcia Pulse Ox Last 24 Hr 97.8 F-98.8 F 72-82 20-20 116-149/46-83 96-98 GENERAL: The patient is awake, alert, and fully oriented, in no acute distress but looking fatigued. HEAD: Normal with no signs of trauma. EYES: PERRL, extraocular movements intact, sclera anicteric, conjunctiva very pale. No ptosis. ENT: Ears normal, nares patent, oropharynx clear without exudates, moist mucous membranes. NECK: Trachea midline, full range of motion, supple. LUNGS: Left lower lobe rhonchi. Breath sounds equal bilaterally, no accessory muscle use. HEART: Regular rate and rhythm, S1, S2 without murmur, rub or gallop. ABDOMEN: Soft, nontender, nondistended, normoactive bowel sounds, no guarding, no rebound, no masses. EXTREMITIES: 2+ pulses, warm, well-perfused, mild/minimal foot edema bilaterally. NEUROLOGICAL: Normal speech, gait not observed. PSYCH: Normal mood, normal affect. SKIN: Warm, dry, normal turgor, no rashes or lesions noted. Capillary refill > 3 seconds. Nails pale and blanched. Laboratory Results - last 24 hr 12/04/19 12/04/19 12/04/19 16:30 16:58 21:23 WBC RBC Hgb Hct MCV MCH MCHC RDW Plt Count MPV Absolute Neuts (auto) Neutrophils % Lymphocytes % Monocytes % Eosinophils % Basophils % Nucleated RBC % Sodium Potassium Chloride Carbon Dioxide Anion Gap BUN Creatinine Est GFR (CKD-EPI)AfAm Est GFR (CKD-EPI)NonAf POC Glucometer 178 189 Random Glucose Lactic Acid 1.5 Calcium Blood Type Antibody Screen Crossmatch 12/05/19 12/05/19 12/05/19 05:20 05:30 06:00 WBC 3.6 L RBC 2.10 L Hgb 5.6 L* Hct 17.0 L D MCV 80.7 MCH 26.8 MCHC 33.2 RDW 18.0 H Plt Count 141 MPV 8.8 Absolute Neuts (auto) 2.7 Neutrophils % 75.4 Lymphocytes % 15.1 D Monocytes % 7.2 Eosinophils % 1.7 D Basophils % 0.6 Nucleated RBC % 0 Sodium 150 H Potassium 4.1 Chloride 123 H Carbon Dioxide 17 L Anion Gap 9 BUN 54.8 H Creatinine 1.6 H Est GFR (CKD-EPI)AfAm 47.46 Est GFR (CKD-EPI)NonAf 40.95 POC Glucometer 194 Random Glucose 193 H Lactic Acid Calcium 8.1 L Blood Type Antibody Screen Crossmatch 12/05/19 12/05/19 12/05/19 10:24 11:25 12:42 WBC 4.6 RBC 2.79 L Hgb 7.3 L Hct 22.6 L D MCV 81.0 MCH 26.2 MCHC 32.4 RDW 18.4 H Plt Count 147 MPV 8.2 Absolute Neuts (auto) Neutrophils % Lymphocytes % Monocytes % Eosinophils % Basophils % Nucleated RBC % Sodium Potassium Chloride Carbon Dioxide Anion Gap BUN Creatinine Est GFR (CKD-EPI)AfAm Est GFR (CKD-EPI)NonAf POC Glucometer 180 Random Glucose Lactic Acid Calcium Blood Type A POSITIVE Antibody Screen Negative Crossmatch See Detail Active Medications Generic Name Dose Route Start Last Admin Trade Name Hunterq PRN Reason Stop Dose Admin Acetaminophen 650 mg 12/01/19 16:30 12/03/19 11:32 Tylenol - PO 650 mg Q4H PRN Administration FEVER Al Hydroxide/Mg Hydroxide 30 ml 12/01/19 16:30 Mylanta Oral Suspension - PO PCHS PRN DYSPEPSIA Albuterol Sulfate 2 puff 12/01/19 16:30 Ventolin Hfa Inhaler - IH Q8H PRN SHORTNESS OF BREATH Budesonide/Formoterol Fumarate 1 puff 12/01/19 22:00 12/05/19 11:57 Symbicort 160/4.5mcg - IH 1 puff BID KADEEM Administration Carvedilol 3.125 mg 12/01/19 22:00 12/05/19 09:29 Coreg - PO 3.125 mg BID KADEEM Administration Clopidogrel Bisulfate 75 mg 12/02/19 14:00 12/05/19 09:29 Plavix - PO 75 mg DAILY KADEEM Administration Docusate Sodium 100 mg 12/01/19 16:30 12/02/19 11:33 Colace - PO 100 mg Q12H PRN Administration CONSTIPATION Escitalopram Oxalate 20 mg 12/02/19 10:00 12/05/19 09:29 Lexapro - PO 20 mg DAILY KADEEM Administration Heparin Sodium (Porcine) 5,000 unit 12/02/19 22:00 12/05/19 06:25 Heparin - SQ 5,000 unit TID KADEEM Administration Ampicillin Sodium/Sulbactam 100 mls @ 200 mls/hr 12/04/19 10:00 12/05/19 09:28 Sodium 3 gm/ Sodium Chloride IVPB 200 mls/hr Q12H KADEEM Administration Sodium Chloride 1,000 mls @ 75 mls/hr 12/04/19 09:45 12/05/19 09:30 1/2 Normal Saline IV 75 mls/hr ASDIR KADEEM Administration Insulin Aspart 1 vial 12/05/19 06:00 12/05/19 11:57 Novolog Vial Sliding Scale - SQ Not Given Q6HPO [facility] Protocol Melatonin 10 mg 12/01/19 22:00 12/04/19 21:32 Melatonin PO 10 mg HS KADEEM Administration Oxycodone HCl 5 mg 12/02/19 15:33 12/04/19 21:39 Roxicodone - PO 5 mg Q4H PRN Administration PAIN LEVEL 6-10 Pantoprazole Sodium 40 mg 12/04/19 10:00 12/05/19 09:29 Protonix Packets For Oral Suspension - PO 40 mg DAILY KADEEM Administration Rosuvastatin Calcium 20 mg 12/01/19 22:00 12/04/19 21:31 Crestor - PO 20 mg HS KADEEM Administration Tamsulosin HCl 0.4 mg 12/01/19 22:00 12/04/19 21:31 Flomax - PO 0.4 mg HS KADEEM Administration ASSESSMENT/PLAN: 79 year old male patient with past medical history that includes Systolic heart failure, CAD s/p PCI, CKD, s/p medtronic ICD, DM, PVD s/p partial gastrectomy, achalasia, penile implant, CABG, HTN, and HLD, who presented to the ED after a fall. 1. Femoral Neck Fracture s/p Intramedullary Nail Surgery - POD 4 - Patient feels a little fatigued - The patient denies fever/chills, shortness of breath, or dysuria - Monitoring for any acute changes - No bowel movement yet, but patient is able to pass gas - The patient is receiving Tylenol for pain 2. Possible Aspiration PNA - Left lower lobe rhonchi - CXR shows a left infiltrate - Fever of 102.8 on 12/02 - Ampicillin/Sulbactam (Day 2) 3. Dehydration - Sodium 150 - Chloride 123 - Using the equation 1500 + ((weight in kg - 20) x 20) cc/day for maintenance fluids (of 1/2NS or 1/2NS with D5W), the patient should be receivin + ((77.564 - 20) x 20) cc/day or 2,651.28 cc/day or 110.47 mls/hr; however, the patient has systolic heart failure, so the maintenance dose should be lower to prevent a systolic CHF exacerbation. - The patient is receiving 1/2NS at 75 mls/hr - Monitoring patient's condition to see if higher IV fluid rates are needed 4. Low Hemoglobin - Hgb fell to 7.3 today - Type and Screen done - Monitoring Hgb 5. APRYL on CKD - Creatinine is trending down from a high of 2.4 to 1.6 today - IV fluids - May increase IV fluids a little if the APRYL fails to resolve 6. Achalasia - The patient is NPO DM - Novolog sliding scale HTN - Coreg HLD - Rosuvastatin # FEN - 1/2NS @ 75 mls/hr, Monitoring Electrolytes, NPO DVT PPx - Heparin SQ and Plavix GI PPx - Protonix Visit type - Emergency Visit Emergency Visit: Yes ED Registration Date: 11/30/19 Care time: The patient presented to the Emergency Department on the above date and was hospitalized for further evaluation of their emergent condition. - New Patient This patient is new to me today: Yes Date on this admission: 12/05/19 - Critical Care Critical Care patient: No - Discharge Referral Referred to [facility] Med [facility] No - Medication Review Med list reviewed for High Risk Meds patients 65 and older: Yes ATTENDING PHYSICIAN STATEMENT I saw and evaluated the patient. I reviewed the resident's note and discussed the case with the resident. I agree with the resident's findings and plan as documented. SUBJECTIVE: OBJECTIVE: ASSESSMENT AND PLAN:
[2019-12-05 18:44] LABS: HEMATOCRIT 21.6 % (35.4-49); MCH 26.4 pg (25.7-33.7); MCHC 32.3 g/dl (32.0-35.9); MEAN CELL VOLUME 81.8 fl (80-96); MEAN PLT VOLUME 8.4 fl (7.5-11.1); PLATELET COUNT 136 K/MM3 (134-434); RBC 2.64 M/mm3 (4.00-5.60); RDW 18.7 % (11.9-15.9); WHITE BLOOD COUNT 4.6 K/mm3 (4.0-10.0)
[2019-12-05] MEDS: TAMSULOSIN HCL 0.4 MG CAP PO SCH (22:43)
[2019-12-05] MEDS: MELATONIN 5 MG TABLETS PO SCH (22:44)
[2019-12-05] MEDS: ROSUVASTATIN CA 20 MG TABLET (FP) PO SCH (22:44)
[2019-12-06] MEDS: HEPARIN NA (PORCINE) 5,000 UNITS/ML 1ML VIAL SQ SCH ×3 (06:44→21:36)
[2019-12-06] MEDS: INSULIN SLIDING SCALE (NOVOLOG) 1 VIAL SQ SCH ×4 (06:44→23:04)
[2019-12-06 08:07] LABS: HEMATOCRIT 21.5 % (35.4-49); MCH 26.2 pg (25.7-33.7); MCHC 32.6 g/dl (32.0-35.9); MEAN CELL VOLUME 80.4 fl (80-96); MEAN PLT VOLUME 8.3 fl (7.5-11.1); PLATELET COUNT 164 K/MM3 (134-434); RBC 2.67 M/mm3 (4.00-5.60); RDW 18.3 % (11.9-15.9); WHITE BLOOD COUNT 5.7 K/mm3 (4.0-10.0)
[2019-12-06 08:28] LABS: ALBUMIN 2.4 g/dl (3.4-5.0); BILIRUBIN,TOTAL 0.9 mg/dL (0.2-1); BLOOD UREA NITROGEN 46.1 mg/dL (7-18); CALCIUM 8.5 mg/dL (8.5-10.1); CREATININE 1.6 mg/dL (0.55-1.3); MAGNESIUM 2.2 mg/dL (1.8-2.4); PHOSPHOROUS 1.4 mg/dL (2.5-4.9); TOT PROT 5.9 g/dl (6.4-8.2)
[2019-12-06] MEDS ORDERED: NAPH,MB-DB/K PH,MBDB POWDER PACKET PO ONE (09:41)
[2019-12-06] MEDS: ACETAMINOPHEN 325 MG TABLET (FP) PO PRN ×2 (09:49→17:30)
[2019-12-06] MEDS: PANTOPRAZOLE SOD 40 MG SUSPENSION PACKET PO SCH (09:49)
[2019-12-06] MEDS: BUDESONIDE/FORMETEROL FUMARATE 160/4.5 mcg INHALER IH SCH ×2 (09:49→21:37)
[2019-12-06] MEDS: AMPICILLIN NA/SULBACTAM NA 3 GM in SODIUM CHLORIDE 100 ML IVPB SCH ×2 (09:49→21:37)
[2019-12-06] MEDS: CLOPIDOGREL BISULFATE 75 MG TABLET (FP) PO SCH (09:50)
[2019-12-06] MEDS: SODIUM CHLORIDE 0.45% 1,000 ML IV SCH (09:50)
[2019-12-06] MEDS: ESCITALOPRAM OXALATE 20 MG TABLET PO SCH (09:50)
[2019-12-06] MEDS: CARVEDILOL 3.125 MG TABLET (FP) PO SCH ×2 (09:50→21:37)
--- NOTE | 2019-12-06 10:03 | PN ---
Progress Note (short form) - Note Progress Note: PULMONARY CONSULTATION DICTATED 12/06/19 IMP RLL PNEUMONIA LIKELY ASPIRATION CHF ASHD S/P CABG,PCI COPD LEFT HIP FX S/P MECHANICAL FALL S/P INTRA-MEDULLARY NAIL ALTERED MENTAL STATUS LIKELY TOXIC METABOLIC ENCEPHALOPATHY NEUROGENIC SYNCOPE DM HLD HTN H/O PUD S/P BILLROTH II H/O ACHALASIA S/P HELLER MYOTOMY ANEMIA HYPERNATREMIA PLAN SUPPLEMENTAL O2 INHALED BRONCHODILATORS ' ABX NORMAL TRANSFUSION THRESHOLD MONITOR LYTES,RENAL FUNCTION,H+H F/U CHEST X-RAYS DR DELVALLE Problem List - Problems (1) Anemia Code(s): D64.9 - ANEMIA, UNSPECIFIED Qualifiers: Anemia type: unspecified type Qualified Code(s): D64.9 - Anemia, unspecified (2) Fall Code(s): W19.XXXA - UNSPECIFIED FALL, INITIAL ENCOUNTER Qualifiers: Encounter type: initial encounter Qualified Code(s): W19.XXXA - Unspecified fall, initial encounter (3) Hip fracture, left Code(s): S72.002A - FRACTURE OF UNSP PART OF NECK OF LEFT FEMUR, INIT Qualifiers: Encounter type: initial encounter Fracture type: closed Qualified Code (s): S72.002A - Fracture of unspecified part of neck of left femur, initial encounter for closed fracture (4) Neuropathy Code(s): G62.9 - POLYNEUROPATHY, UNSPECIFIED (5) Syncope Code(s): R55 - SYNCOPE AND COLLAPSE Qualifiers: Syncope type: unspecified Qualified Code(s): R55 - Syncope and collapse (6) Pneumonia Code(s): J18.9 - PNEUMONIA, UNSPECIFIED ORGANISM Qualifiers: Pneumonia type: due to unspecified organism Laterality: unspecified laterality Lung location: unspecified part of lung Qualified Code(s): J18.9 - Pneumonia, unspecified organism (7) Achalasia Code(s): K22.0 - ACHALASIA OF CARDIA (8) BPH (benign prostatic hypertrophy) Code(s): N40.0 - BENIGN PROSTATIC HYPERPLASIA WITHOUT LOWER URINRY TRACT SYMP Qualifiers: Lower urinary tract symptom presence: presence of symptoms unspecified (9) CAD (coronary artery disease) Code(s): I25.10 - ATHSCL HEART DISEASE OF [place] CORONARY ARTERY W/O ANG PCTRS Qualifiers: Coronary Disease-Associated Artery/Lesion type: [place] artery [place] vs. transplanted heart: [place] heart Associated angina: without angina Qualified Code(s): I25.10 - Atherosclerotic heart disease of [place] coronary artery without angina pectoris (10) CKD (chronic kidney disease) stage 3, GFR 30-59 ml/min Code(s): N18.3 - CHRONIC KIDNEY DISEASE, STAGE 3 (MODERATE) (11) COPD (chronic obstructive pulmonary disease) Code(s): J44.9 - CHRONIC OBSTRUCTIVE PULMONARY DISEASE, UNSPECIFIED (12) History of percutaneous coronary intervention Code(s): Z98.890 - OTHER SPECIFIED POSTPROCEDURAL STATES (13) Hx of CABG Code(s): Z95.1 - PRESENCE OF AORTOCORONARY BYPASS GRAFT (14) Hyperlipidemia Code(s): E78.5 - HYPERLIPIDEMIA, UNSPECIFIED Qualifiers: Hyperlipidemia type: pure hypercholesterolemia Qualified Code(s): E78.00 - Pure hypercholesterolemia, unspecified; E78.0 - Pure hypercholesterolemia (15) ICD (implantable cardioverter-defibrillator) in place Code(s): Z95.810 - PRESENCE OF AUTOMATIC (IMPLANTABLE) CARDIAC DEFIBRILLATOR (16) Ischemic cardiomyopathy Code(s): I25.5 - ISCHEMIC CARDIOMYOPATHY (17) Recurrent falls Code(s): R29.6 - REPEATED FALLS (18) Hypertension Code(s): I10 - ESSENTIAL (PRIMARY) HYPERTENSION Qualifiers: Hypertension type: essential hypertension Qualified Code(s): I10 - Essential (primary) hypertension
[2019-12-06] MEDS ORDERED: SODIUM CHLORIDE IVPB ONE (10:30)
[2019-12-06] MEDS ORDERED: POTASSIUM PHOSPHATE IVPB ONE (10:30)
--- NOTE | 2019-12-06 12:09 | PN ---
Progress Note (short form) - Note Progress Note: Reviewed S/S report: Follow S/S recommendation As outpatient, should have formal evaluation by motility specialist as outlined in initial consultation When acute issues are resolved and patient medically cleared, can have colonoscopy with Plavix held for 5 days given history of colon polyps Problem List - Problems (1) Achalasia Code(s): K22.0 - ACHALASIA OF CARDIA (2) Anemia Code(s): D64.9 - ANEMIA, UNSPECIFIED Qualifiers: Anemia type: unspecified type Qualified Code(s): D64.9 - Anemia, unspecified
--- NOTE | 2019-12-06 12:29 | PN ---
Progress Note, Physician Chief Complaint: Events noted Not in distress except for limitation in LE movement post op #5 hip surgery History of Present Illness: Patient was seen and examined. Awake and alert. Chart was reviewed Denies chest pain, SOB or palpitations - Current Medication List Current Medications: Active Medications Acetaminophen (Tylenol -) 650 mg PO Q4H PRN PRN Reason: FEVER Last Admin: 12/06/19 09:49 Dose: 650 mg Documented by: Al Hydroxide/Mg Hydroxide (Mylanta Oral Suspension -) 30 ml PO HS PRN PRN Reason: DYSPEPSIA Albuterol Sulfate (Ventolin Hfa Inhaler -) 2 puff IH Q8H PRN PRN Reason: SHORTNESS OF BREATH Budesonide/Formoterol Fumarate (Symbicort 160/4.5mcg -) 1 puff IH BID [facility] Last Admin: 12/06/19 09:49 Dose: 1 puff Documented by: Carvedilol (Coreg -) 3.125 mg PO BID [facility] Last Admin: 12/06/19 09:50 Dose: 3.125 mg Documented by: Clopidogrel Bisulfate (Plavix -) 75 mg PO DAILY [facility] Last Admin: 12/06/19 09:50 Dose: 75 mg Documented by: Docusate Sodium (Colace -) 100 mg PO Q12H PRN PRN Reason: CONSTIPATION Last Admin: 12/02/19 11:33 Dose: 100 mg Documented by: Escitalopram Oxalate (Lexapro -) 20 mg PO DAILY [facility] Last Admin: 12/06/19 09:50 Dose: 20 mg Documented by: Heparin Sodium (Porcine) (Heparin -) 5,000 unit SQ TID [facility] Last Admin: 12/06/19 06:44 Dose: 5,000 unit Documented by: Ampicillin Sodium/Sulbactam (Sodium 3 gm/ Sodium Chloride) 100 mls @ 200 mls/hr IVPB Q12H [facility] Last Admin: 12/06/19 09:49 Dose: 200 mls/hr Documented by: Sodium Chloride (1/2 Normal Saline) 1,000 mls @ 75 mls/hr IV ASDIR [facility] Last Admin: 12/06/19 09:50 Dose: 75 mls/hr Documented by: Potassium Phosphate 10 mm/ (Sodium Chloride) 503.3333 mls @ 83.889 mls/hr IVPB ONCE ONE Stop: 12/06/19 16:29 Last Admin: 12/06/19 11:36 Dose: 83.889 mls/hr Documented by: Insulin Aspart (Novolog Vial Sliding Scale -) 1 vial SQ Q6HPO [facility]; Protocol Last Admin: 12/06/19 11:39 Dose: 6 units Documented by: Melatonin (Melatonin) 10 mg PO [facility] Last Admin: 12/05/19 22:44 Dose: 10 mg Documented by: Pantoprazole Sodium (Protonix Packets For Oral Suspension -) 40 mg PO DAILY [facility] Last Admin: 12/06/19 09:49 Dose: 40 mg Documented by: Rosuvastatin Calcium (Crestor -) 20 mg PO [facility] Last Admin: 12/05/19 22:44 Dose: 20 mg Documented by: Tamsulosin HCl (Flomax -) 0.4 mg PO [facility] Last Admin: 12/05/19 22:43 Dose: 0.4 mg Documented by: - Objective Vital Signs: Vital Signs Temperature 98.6 F 12/06/19 09:09 Pulse Rate 84 12/06/19 10:00 Respiratory Rate 17 12/06/19 10:00 Blood Pressure 122/49 L 12/06/19 09:09 O2 Sat by Pulse Oximetry (%) 91 L 12/06/19 10:00 Neck: Yes: Supple Cardiovascular: Yes: Regular Rate and Rhythm, S1, S2 Respiratory: Yes: Diminished Gastrointestinal: Yes: Normal Bowel Sounds, Soft. No: Tenderness Edema: No Additional Findings/Remarks: - Review of Systems Constitutional: denies: Chills, Fever Cardiovascular: denies Chest Pain, denies: Palpitations, Shortness of Breath Respiratory: denies: SOB, SOB on Exertion. denies: Cough, Hemoptysis, Orthopnea, Wheezing Gastrointestinal: denies: Abdominal Pain, Constipation, Diarrhea, Melena, Nausea, Rectal Bleeding, Vomiting Genitourinary: denies: Dysuria, Hematuria Neurological: denies: Dizziness, Headache, Seizure, Syncope Labs: CBC, BMP 12/06/19 06:48 12/06/19 06:48 Problem List - Problems (1) Fall Code(s): W19.XXXA - UNSPECIFIED FALL, INITIAL ENCOUNTER Qualifiers: Encounter type: initial encounter Qualified Code(s): W19.XXXA - Unspecified fall, initial encounter (2) Hip fracture, left Code(s): S72.002A - FRACTURE OF UNSP PART OF NECK OF LEFT FEMUR, INIT Qualifiers: Encounter type: initial encounter Fracture type: closed Qualified Code(s): S72.002A - Fracture of unspecified part of neck of left femur, initial encounter for closed fracture (3) Pneumonia Code(s): J18.9 - PNEUMONIA, UNSPECIFIED ORGANISM Qualifiers: Pneumonia type: due to unspecified organism Laterality: unspecified laterality Lung location: unspecified part of lung Qualified Code(s): J18.9 - Pneumonia, unspecified organism (4) Acute congestive heart failure Code(s): I50.9 - HEART FAILURE, UNSPECIFIED (5) CAD (coronary artery disease) Code(s): I25.10 - ATHSCL HEART DISEASE OF [place] CORONARY ARTERY W/O ANG PCTRS Qualifiers: Coronary Disease-Associated Artery/Lesion type: [place] artery [place] vs. transplanted heart: [place] heart Associated angina: without angina Qualified Code(s): I25.10 - Atherosclerotic heart disease of [place] coronary artery without angina pectoris (6) COPD (chronic obstructive pulmonary disease) Code(s): J44.9 - CHRONIC OBSTRUCTIVE PULMONARY DISEASE, UNSPECIFIED Qualifiers: COPD type: unspecified COPD Qualified Code(s): J44.9 - Chronic obstructive pulmonary disease, unspecified (7) Hx of CABG Code(s): Z95.1 - PRESENCE OF AORTOCORONARY BYPASS GRAFT (8) Hyperlipidemia Code(s): E78.5 - HYPERLIPIDEMIA, UNSPECIFIED Qualifiers: Hyperlipidemia type: pure hypercholesterolemia Qualified Code(s): E78.00 - Pure hypercholesterolemia, unspecified; E78.0 - Pure hypercholesterolemia (9) ICD (implantable cardioverter-defibrillator) in place Code(s): Z95.810 - PRESENCE OF AUTOMATIC (IMPLANTABLE) CARDIAC DEFIBRILLATOR (10) NYHA class 2 acute on chronic systolic heart failure Code(s): I50.23 - ACUTE ON CHRONIC SYSTOLIC (CONGESTIVE) HEART FAILURE (11) Pulmonary HTN Code(s): I27.20 - PULMONARY HYPERTENSION, UNSPECIFIED (12) Type 2 diabetes mellitus Code(s): E11.9 - TYPE 2 DIABETES MELLITUS WITHOUT COMPLICATIONS (13) Acute on chronic diastolic CHF (congestive heart failure) Code(s): I50.33 - ACUTE ON CHRONIC DIASTOLIC (CONGESTIVE) HEART FAILURE (14) Acute on chronic renal insufficiency Code(s): N28.9 - DISORDER OF KIDNEY AND URETER, UNSPECIFIED; N18.9 - CHRONIC KIDNEY DISEASE, UNSPECIFIED (15) Orthostatic hypotension Code(s): I95.1 - ORTHOSTATIC HYPOTENSION Assessment/Plan 1. POD#5 left IM nail for femoral neck hip fracture 2. Fever referable to aspiration pneumonia 3. Chronic LV systolic heart failure 4. CAD s/p [place], CABG, PCI/stents, angina pectoris 5. Post ICD implant 6. HTN 7. Hypercholesterolemia 8. T2DM 9. Acute on CKD stage 3 10. PAD s/p fem-pop bypass and WRAPPER STRIPPER 11. COPD 12. PUD s/p Bilroth II gastrectomy 13. Achalasia s/p Heller's myomectomy with dysphagia 14. Gout 15. Kidney stones 16. Orthostatic hypotension on Northera 17. Gait disturbance 18. Post-op anemia 19. Hypernatremia PLAN: 1. Antibiotic coverage 2. GI input noted 3. Judicious hydration and free water repletion pending renal and hypernatremia recovery 4. Continue Plavix 75 mg QD, Coreg 3.125 mg BID and Crestor 20 mg QHS. Monitor orthostasis, has not been taking Northera 5. DVT and GI prophylaxis and analgesia as needed 6. Monitor Hgb and transfuse as needed 7. PT as tolerated. Eventual short term rehab 8. Eventual f/u with Dr. Morales in office upon discharge Jayy Morales MD
--- NOTE | 2019-12-06 14:17 | CONS ---
PULMONARY CONSULTATION DATE OF CONSULTATION: 12/06/2019 REFERRING PHYSICIAN: Vladimir Navarro MD HISTORY OF PRESENT ILLNESS: Patient is a 79-year-old male well-known to me in previous hospitalizations and multiple office visits, past medical history of COPD, longstanding history of tobacco use approximately 1 to 2 packs per day for greater than 50 years, quit approximately in 2016, hypertension, ASHD, status post CABG, status post stent, angina, status post ICD, hypertension, diabetes, hypercholesterolemia, neurocardiogenic syncope, noncompliant with Northera, admitted to [facility] on November 29 status post mechanical fall sustaining left hip fracture. Patient was admitted with the above. On admission he was evaluated by Cardiology as well as Neurology as well as Orthopedics. Patient underwent a left intramedullary nail placement on November 30 without complications. Hospitalization was significant for on December 02 he developed a fever to 102.3. Chest x-ray performed revealed a new right lower lobe infiltrate. He was placed on broad-spectrum antibiotics. He was evaluated by Speech Pathology and underwent a modified barium swallow which revealed evidence of aspiration, evidence of [id number] silent aspiration with liquids. PAST MEDICAL HISTORY: 1. Again includes ASHD status post CABG, status post PCI. 2. Status post ICD. 3. COPD advanced. 4. Hypertension. 5. Hyperlipidemia. 6. Chronic kidney disease. 7. Diabetes. 8. Congestive heart failure. 9. Hyperlipidemia. 10. Neurogenic syncope, noncompliant with medications. 11. Peptic ulcer disease, status post Billroth II. CURRENT MEDICATIONS: Include Symbicort 160/4.5; Unasyn; heparin subcutaneous; Lexapro; albuterol; Coreg; Colace and Crestor; melatonin; Plavix. REVIEW OF SYSTEMS: Cannot be obtained as patient is confused. PHYSICAL EXAMINATION: General: Patient is a thin male awake, alert, confused in no acute distress. Vital Signs: He is afebrile. O2 saturation is 91% on 2 L nasal cannula. Respiratory rate is 17. Heart rate is 84. HEENT: He is normocephalic, atraumatic. Neck: Supple. Heart: Regular, S1, S2. Chest: Few bilateral crackles. Abdomen: Soft. Bowel sounds are positive. Extremities: No cyanosis or edema. LABORATORIES: Sodium is 150. BUN is 46, creatinine 1.6. WBC is 5.7, hemoglobin 7, hematocrit 21.5 with a platelet count of 164. Chest x-ray: Right lower lobe infiltrate. INR is 1.08. COVID is not detected. IMPRESSION: 1. Right lower lobe pneumonia, likely aspiration. 2. Congestive heart failure. 3. Atherosclerotic heart disease, status post coronary artery bypass grafting, status post percutaneous coronary intervention. 4. Chronic obstructive pulmonary disease without an acute exacerbation. 5. Left hip fracture status post mechanical fall, status post intramedullary nail placement. 6. Neurogenic syncope, noncompliant with medications. 7. Diabetes. 8. Hypertension. 9. Hyperlipidemia. 10. History of peptic ulcer disease, status post Billroth II. 11. History of achalasia, status post Heller myotomy. 12. Anemia. 13. Hypernatremia. 14. Altered mental status, likely toxic metabolic. PLAN: Supplemental O2, inhaled bronchodilators, antibiotic therapy, , monitor electrolytes, renal function, hemoglobin and hematocrit and sodium. Normal transfusion threshold. Obtain followup chest x-rays. LAURA DELVALLE M.D. [id number] MTDD
--- NOTE | 2019-12-06 14:30 | PN ---
Physical Exam: SUBJECTIVE: Patient seen and examined at bedside in the morning. The patient is A&Ox1 with visual hallucinations of people entering the room. The patient, however, is able to talk and answer questions. The patient reports feeling cold and with 10/10 pain from his surgery with some associated numbness and weakness in his left lower extremity. The patient denied fever, shortness of breath, constipation, nausea, and vomiting. The patient reported "lots" of watery diarrhea with blood, but per the nurse, the patient has not been having bowel movements. The patient was transfused 1 pRBC in the afternoon. Follow up CBC after the transfusion shows an increased Hgb of 8.5. OBJECTIVE: Vital Signs Period Temp Pulse Resp BP Sys/Garcia Pulse Ox Last 24 Hr 97.7 F-98.8 F 78-99 17-20 122-159/49-68 91-96 GENERAL: The patient is A&Ox1, confused, but in no acute distress and looking mildly fatigued. HEAD: Normal with no signs of trauma. EYES: Extraocular movements intact, sclera anicteric, conjunctiva very pale. No ptosis. ENT: Ears normal, nares patent, oropharynx clear without exudates, moist mucous membranes. NECK: Trachea midline, full range of motion, supple. LUNGS: Decreased breath sounds bilaterally, no accessory muscle use. HEART: Regular rate and rhythm, S1, S2 without murmur, rub or gallop. ABDOMEN: Soft, nontender, nondistended, normoactive bowel sounds, no guarding, no rebound, no masses. EXTREMITIES: 2+ pulses, warm, well-perfused, no edema. NEUROLOGICAL: Normal speech, gait not observed. PSYCH: Normal mood, normal affect. SKIN: Warm, dry, normal turgor, no rashes or lesions noted. Capillary refill > 3 seconds. Nails pale and blanched. Laboratory Results - last 24 hr 12/05/19 12/05/19 12/05/19 12:42 16:53 17:50 WBC 4.6 RBC 2.64 L Hgb 7.0 L Hct 21.6 L MCV 81.8 MCH 26.4 MCHC 32.3 RDW 18.7 H Plt Count 136 MPV 8.4 Sodium Potassium Chloride Carbon Dioxide Anion Gap BUN Creatinine Est GFR (CKD-EPI)AfAm Est GFR (CKD-EPI)NonAf POC Glucometer 218 Random Glucose Calcium Phosphorus Magnesium Total Bilirubin AST ALT Alkaline Phosphatase Total Protein Albumin Blood Type A POSITIVE Antibody Screen Negative Crossmatch See Detail 12/05/19 12/06/19 12/06/19 22:54 06:42 06:48 WBC 5.7 RBC 2.67 L Hgb 7.0 L Hct 21.5 L MCV 80.4 MCH 26.2 MCHC 32.6 RDW 18.3 H Plt Count 164 D MPV 8.3 Sodium Potassium Chloride Carbon Dioxide Anion Gap BUN Creatinine Est GFR (CKD-EPI)AfAm Est GFR (CKD-EPI)NonAf POC Glucometer 278 211 Random Glucose Calcium Phosphorus Magnesium Total Bilirubin AST ALT Alkaline Phosphatase Total Protein Albumin Blood Type Antibody Screen Crossmatch 12/06/19 12/06/19 06:48 11:29 WBC RBC Hgb Hct MCV MCH MCHC RDW Plt Count MPV Sodium 150 H Potassium 4.0 Chloride 121 H Carbon Dioxide 19 L Anion Gap 10 BUN 46.1 H Creatinine 1.6 H Est GFR (CKD-EPI)AfAm 47.46 Est GFR (CKD-EPI)NonAf 40.95 POC Glucometer 344 Random Glucose 232 H Calcium 8.5 Phosphorus 1.4 L Magnesium 2.2 Total Bilirubin 0.9 AST 72 H ALT 74 H Alkaline Phosphatase 95 Total Protein 5.9 L Albumin 2.4 L Blood Type Antibody Screen Crossmatch Active Medications Generic Name Dose Route Start Last Admin Trade Name Freq PRN Reason Stop Dose Admin Acetaminophen 650 mg 12/01/19 16:30 12/06/19 09:49 Tylenol - PO 650 mg Q4H PRN Administration FEVER Al Hydroxide/Mg Hydroxide 30 ml 12/01/19 16:30 Mylanta Oral Suspension - PO PCHS PRN DYSPEPSIA Albuterol Sulfate 2 puff 12/01/19 16:30 Ventolin Hfa Inhaler - IH Q8H PRN SHORTNESS OF BREATH Budesonide/Formoterol Fumarate 1 puff 12/01/19 22:00 12/06/19 09:49 Symbicort 160/4.5mcg - IH 1 puff BID KADEEM Administration Carvedilol 3.125 mg 12/01/19 22:00 12/06/19 09:50 Coreg - PO 3.125 mg BID KADEEM Administration Clopidogrel Bisulfate 75 mg 12/02/19 14:00 12/06/19 09:50 Plavix - PO 75 mg DAILY KADEEM Administration Docusate Sodium 100 mg 12/01/19 16:30 12/02/19 11:33 Colace - PO 100 mg Q12H PRN Administration CONSTIPATION Escitalopram Oxalate 20 mg 12/02/19 10:00 12/06/19 09:50 Lexapro - PO 20 mg DAILY KADEEM Administration Heparin Sodium (Porcine) 5,000 unit 12/02/19 22:00 12/06/19 14:09 Heparin - SQ 5,000 unit TID KADEEM Administration Ampicillin Sodium/Sulbactam 100 mls @ 200 mls/hr 12/04/19 10:00 12/06/19 09:49 Sodium 3 gm/ Sodium Chloride IVPB 200 mls/hr Q12H KADEEM Administration Sodium Chloride 1,000 mls @ 75 mls/hr 12/04/19 09:45 12/06/19 09:50 1/2 Normal Saline IV 75 mls/hr ASDIR KADEEM Administration Potassium Phosphate 10 mm/ 503.3333 mls @ 83.889 mls/hr 12/06/19 10:30 12/06/19 11:36 Sodium Chloride IVPB 12/06/19 16:29 83.889 mls/hr ONCE ONE Administration Insulin Aspart 1 vial 12/05/19 06:00 12/06/19 11:39 Novolog Vial Sliding Scale - SQ 6 units Q6HPO KADEEM Administration Protocol Melatonin 10 mg 12/01/19 22:00 12/05/19 22:44 Melatonin PO 10 mg HS KADEEM Administration Pantoprazole Sodium 40 mg 12/04/19 10:00 12/06/19 09:49 Protonix Packets For Oral Suspension - PO 40 mg DAILY KADEEM Administration Rosuvastatin Calcium 20 mg 12/01/19 22:00 12/05/19 22:44 Crestor - PO 20 mg HS KADEEM Administration Tamsulosin HCl 0.4 mg 12/01/19 22:00 12/05/19 22:43 Flomax - PO 0.4 mg HS KADEEM Administration ASSESSMENT/PLAN: 79 year old male patient with past medical history that includes Systolic heart failure, CAD s/p PCI, CKD, s/p medtronic ICD, DM, PVD s/p partial gastrectomy, achalasia, penile implant, CABG, HTN, and HLD, who presented to the ED after a fall. 1. Femoral Neck Fracture s/p Intramedullary Nail Surgery - POD 5 - Patient feels a little fatigued - Patient is A&Ox1 - The patient denies fever and shortness of breath - Monitoring for any acute changes - No bowel movement yet per the nurse, but patient is able to pass gas - The patient is receiving Tylenol for pain 2. Acute Metabolic Encephalopathy secondary to Low Hemoglobin - Hgb at to 7.0 today - 1 pRBC transfused - Type and Screen done - Monitoring Hgb 3. Possible Aspiration PNA - Left lower lobe rhonchi - CXR shows a left infiltrate - Fever of 102.8 on 12/02 - Ampicillin/Sulbactam (Day 3) 4. Dehydration - Sodium 150 - Chloride 121 - Using the equation 1500 + ((weight in kg - 20) x 20) cc/day for maintenance fluids (of 1/2NS or 1/2NS with D5W), the patient should be receivin + ((77.564 - 20) x 20) cc/day or 2,651.28 cc/day or 110.47 mls/hr; however, the patient has systolic heart failure, so the maintenance dose should be lower to prevent a systolic CHF exacerbation. - The patient is receiving 1/2NS at 75 mls/hr - Monitoring patient's condition to see if higher IV fluid rates are needed 5. APRYL on CKD - Creatinine is trending down from a high of 2.4 to 1.6 today (1.6 yesterday) - Monitoring the Creatinine - IV fluids - May increase IV fluids a little if the APRYL fails to resolve 6. Achalasia - The patient has the Dysphagia Puree Diet DM - Novolog sliding scale HTN - Coreg HLD - Rosuvastatin # FEN - 1/2NS @ 75 mls/hr, Monitoring Electrolytes, Dysphagia Puree Diet DVT PPx - Heparin SQ and Plavix GI PPx - Protonix Visit type - Emergency Visit Emergency Visit: Yes ED Registration Date: 11/30/19 Care time: The patient presented to the Emergency Department on the above date and was hospitalized for further evaluation of their emergent condition. - New Patient This patient is new to me today: No - Critical Care Critical Care patient: No - Discharge Referral Referred to [facility] Med P.C.: No - Medication Review Med list reviewed for High Risk Meds patients 65 and older: Yes ATTENDING PHYSICIAN STATEMENT I saw and evaluated the patient. I reviewed the resident's note and discussed the case with the resident. I agree with the resident's findings and plan as documented. SUBJECTIVE: OBJECTIVE: ASSESSMENT AND PLAN:
[2019-12-06] MEDS ORDERED: FUROSEMIDE 40 MG/4 ML INJECTABLE VIAL IVPUSH ONE (17:41)
--- NOTE | 2019-12-06 18:18 | PN ---
Teaching Attending Note Name of Resident: Nate Valentino ATTENDING PHYSICIAN STATEMENT I saw and evaluated the patient. I reviewed the resident's note and discussed the case with the resident. I agree with the resident's findings and plan as documented. SUBJECTIVE: Patient is comfortable but confused OBJECTIVE: Vital Signs Temperature 97.6 F 12/06/19 15:29 Pulse Rate 77 12/06/19 15:29 Respiratory Rate 20 12/06/19 15:29 Blood Pressure 131/75 12/06/19 15:29 O2 Sat by Pulse Oximetry (%) 99 12/06/19 15:29 PE: PER RESIDENT'S NOTE CBCD WBC 5.7 K/mm3 (4.0-10.0) 12/06/19 06:48 RBC 2.67 M/mm3 (4.00-5.60) L 12/06/19 06:48 Hgb 7.0 GM/dL (11.7-16.9) L 12/06/19 06:48 Hct 21.5 % (35.4-49) L 12/06/19 06:48 MCV 80.4 fl (80-96) 12/06/19 06:48 MCHC 32.6 g/dl (32.0-35.9) 12/06/19 06:48 RDW 18.3 % (11.9-15.9) H 12/06/19 06:48 Plt Count 164 K/MM3 (134-434) D 12/06/19 06:48 MPV 8.3 fl (7.5-11.1) 12/06/19 06:48 CMP Sodium 150 mmol/L (136-145) H 12/06/19 06:48 Potassium 4.0 mmol/L (3.5-5.1) 12/06/19 06:48 Chloride 121 mmol/L (98-107) H 12/06/19 06:48 Carbon Dioxide 19 mmol/L (21-32) L 12/06/19 06:48 Anion Gap 10 MMOL/L (8-16) 12/06/19 06:48 BUN 46.1 mg/dL (7-18) H 12/06/19 06:48 Creatinine 1.6 mg/dL (0.55-1.3) H 12/06/19 06:48 Random Glucose 232 mg/dL (74-106) H 12/06/19 06:48 Calcium 8.5 mg/dL (8.5-10.1) 12/06/19 06:48 Total Bilirubin 0.9 mg/dL (0.2-1) 12/06/19 06:48 AST 72 U/L (15-37) H 12/06/19 06:48 ALT 74 U/L (13-61) H 12/06/19 06:48 Alkaline Phosphatase 95 U/L (45-117) 12/06/19 06:48 Total Protein 5.9 g/dl (6.4-8.2) L 12/06/19 06:48 Albumin 2.4 g/dl (3.4-5.0) L 12/06/19 06:48 CARDIAC ENZYMES Creatine Kinase 33 U/L (26-308) 11/30/19 08:35 Troponin I < 0.02 ng/ml (0.00-0.05) 11/30/19 08:35 Current Medications Generic Name Dose Route Start Last Admin Trade Name Freq PRN Reason Stop Dose Admin Acetaminophen 650 mg 12/01/19 16:30 12/06/19 17:30 Tylenol - PO 650 mg Q4H PRN Administration FEVER Al Hydroxide/Mg Hydroxide 30 ml 12/01/19 16:30 Mylanta Oral Suspension - PO PCHS PRN DYSPEPSIA Albuterol Sulfate 2 puff 12/01/19 16:30 Ventolin Hfa Inhaler - IH Q8H PRN SHORTNESS OF BREATH Budesonide/Formoterol Fumarate 1 puff 12/01/19 22:00 12/06/19 09:49 Symbicort 160/4.5mcg - IH 1 puff BID KADEEM Administration Carvedilol 3.125 mg 12/01/19 22:00 12/06/19 09:50 Coreg - PO 3.125 mg BID KADEEM Administration Clopidogrel Bisulfate 75 mg 12/02/19 14:00 12/06/19 09:50 Plavix - PO 75 mg DAILY KADEEM Administration Docusate Sodium 100 mg 12/01/19 16:30 12/02/19 11:33 Colace - PO 100 mg Q12H PRN Administration CONSTIPATION Escitalopram Oxalate 20 mg 12/02/19 10:00 12/06/19 09:50 Lexapro - PO 20 mg DAILY KADEEM Administration Heparin Sodium (Porcine) 5,000 unit 12/02/19 22:00 12/06/19 14:09 Heparin - SQ 5,000 unit TID KADEEM Administration Ampicillin Sodium/Sulbactam 100 mls @ 200 mls/hr 12/04/19 10:00 12/06/19 09:49 Sodium 3 gm/ Sodium Chloride IVPB 200 mls/hr Q12H KADEEM Administration Sodium Chloride 1,000 mls @ 75 mls/hr 12/04/19 09:45 12/06/19 09:50 1/2 Normal Saline IV 75 mls/hr ASDIR KADEEM Administration Insulin Aspart 1 vial 12/05/19 06:00 12/06/19 17:23 Novolog Vial Sliding Scale - SQ 6 units Q6HPO KADEEM Administration Protocol Melatonin 10 mg 12/01/19 22:00 12/05/19 22:44 Melatonin PO 10 mg HS KADEEM Administration Pantoprazole Sodium 40 mg 12/04/19 10:00 12/06/19 09:49 Protonix Packets For Oral Suspension - PO 40 mg DAILY KADEEM Administration Rosuvastatin Calcium 20 mg 12/01/19 22:00 12/05/19 22:44 Crestor - PO 20 mg HS KADEEM Administration Tamsulosin HCl 0.4 mg 12/01/19 22:00 12/05/19 22:43 Flomax - PO 0.4 mg HS KADEEM Administration Home Medications Medication Instructions Recorded Carvedilol 3.125 mg PO BID 12/08/18 Escitalopram Oxalate [Lexapro -] 20 mg PO DAILY 12/08/18 Rosuvastatin Calcium [Crestor] 20 mg PO HS 12/08/18 Tamsulosin HCl 0.4 mg PO DAILY 01/11/19 Clopidogrel Bisulfate [Clopidogrel] 75 mg PO DAILY 04/07/19 Melatonin 10 mg PO HS 04/07/19 Sacubitril/Valsartan [Entresto 24 1 each PO BID 04/07/19 mg-26 mg Tablet] Albuterol Sulfate [Proair 2 puff NEB TID PRN 05/31/19 Digihaler] Bimatoprost [Lumigan] 1 drop DAILY 05/31/19 Furosemide 20 mg PO DAILY 05/31/19 Albuterol 0.083% Nebulizer Fatuma 1 neb NEB QID 11/30/19 [Ventolin 0.083%] Budesonide/Formeterol Fumarate 1 inh PO BID 11/30/19 [SYMBICORT 160/4.5mcg -] Insulin Glargine,Hum.rec.anlog 58 units SQ HS 12/01/19 [Lantus Solostar PEN -] Microbiology 12/04/19 11:00 Urine - Urine - Catheterized Urine Culture - Final Yeast Like Organism 12/03/19 21:00 Blood - Peripheral Venous Blood Culture - Preliminary NO GROWTH OBTAINED AFTER 48 HOURS, INCUBATION TO CONTINUE FOR 3 DAYS. 12/03/19 21:00 Blood - Peripheral Venous Blood Culture - Preliminary NO GROWTH OBTAINED AFTER 48 HOURS, INCUBATION TO CONTINUE FOR 3 DAYS. ASSESSMENT AND PLAN: This patient is a 79yom with PMhx of systolic heart failure , CAD, s/p PCI ,CKD, s/p medtronic ICD, DM, PUD s/p partial gastrectomy, Achalasia , CABG, HTN, HLP,penile implant , and copd ( 2 L of O2 ) , who presented after a fall and was found to have L sided femoral neck Fx #Possible aspiration pneumonia : on IV antibiotic Unasyn continue ; on dysphagia diet # L Fem neck Fx, s/p intramedullary nail # s/p FAll.: syncope vs orthostatic hypotension /dehydration # APRYL on CKD: due to prerenal azotemia form hypotension, can't r/o ATN , diovan on hold due to APRYL # Hypernatremia /dehydration : on 1/2 ns IVF # Acute delirium: improved # H/o DM , CAD, HLP: hold levemir. cont SSI q 6h. # h/o systolic heart failure # H/o HTN DVT xp; heparin continue PT will need rehab [place]
[2019-12-06 18:34] LABS: HEMATOCRIT 26.1 % (35.4-49); HEMOGLOBIN 8.5 GM/dL (11.7-16.9); MCH 27.6 pg (25.7-33.7); MCHC 32.8 g/dl (32.0-35.9); MEAN CELL VOLUME 84.2 fl (80-96); MEAN PLT VOLUME 8.5 fl (7.5-11.1); PLATELET COUNT 158 K/MM3 (134-434); RDW 18.5 % (11.9-15.9); WHITE BLOOD COUNT 5.7 K/mm3 (4.0-10.0)
[2019-12-06] MEDS ORDERED: PT OWN MED DRAWER 7, Y5N ONE (20:43)
[2019-12-06] MEDS: TAMSULOSIN HCL 0.4 MG CAP PO SCH (21:36)
[2019-12-06] MEDS: ROSUVASTATIN CA 20 MG TABLET (FP) PO SCH (21:36)
[2019-12-06] MEDS: MELATONIN 5 MG TABLETS PO SCH (21:37)
[2019-12-07] MEDS: SODIUM CHLORIDE 0.45% 1,000 ML IV SCH ×3 (04:55→21:50)
[2019-12-07] MEDS: HEPARIN NA (PORCINE) 5,000 UNITS/ML 1ML VIAL SQ SCH ×3 (06:12→21:14)
[2019-12-07] MEDS: INSULIN SLIDING SCALE (NOVOLOG) 1 VIAL SQ SCH ×5 (06:20→23:30)
[2019-12-07 08:09] LABS: BASO % 0.5 % (0-2.0); HEMATOCRIT 25.6 % (35.4-49); HEMOGLOBIN 8.5 GM/dL (11.7-16.9); LYMPH % 9.1 % (8-40); MCHC 33.1 g/dl (32.0-35.9); MEAN CELL VOLUME 81.5 fl (80-96); MEAN PLT VOLUME 8.3 fl (7.5-11.1); MONO % 6.2 % (3.8-10.2); NEUT % 82.2 % (42.8-82.8); PLATELET COUNT 180 K/MM3 (134-434); RBC 3.14 M/mm3 (4.00-5.60); WHITE BLOOD COUNT 7.4 K/mm3 (4.0-10.0)
[2019-12-07 08:28] LABS: ALBUMIN 2.3 g/dl (3.4-5.0); BLOOD UREA NITROGEN 36.2 mg/dL (7-18); CALCIUM 8.6 mg/dL (8.5-10.1); POTASSIUM 3.9 mmol/L (3.5-5.1)
[2019-12-07 08:31] LABS: BILIRUBIN,TOTAL 1.2 mg/dL (0.2-1); CREATININE 1.4 mg/dL (0.55-1.3); PHOSPHOROUS 2.3 mg/dL (2.5-4.9); TOT PROT 5.8 g/dl (6.4-8.2)
[2019-12-07] MEDS ORDERED: PT OWN MED DRAWER 7, Y5N ONE ×2 (08:41→20:39)
[2019-12-07] MEDS: ESCITALOPRAM OXALATE 20 MG TABLET PO SCH (09:36)
[2019-12-07] MEDS: CARVEDILOL 3.125 MG TABLET (FP) PO SCH ×2 (09:36→21:14)
[2019-12-07] MEDS: CLOPIDOGREL BISULFATE 75 MG TABLET (FP) PO SCH (09:36)
[2019-12-07] MEDS: PANTOPRAZOLE SOD 40 MG SUSPENSION PACKET PO SCH (09:36)
[2019-12-07] MEDS: AMPICILLIN NA/SULBACTAM NA 3 GM in SODIUM CHLORIDE 100 ML IVPB SCH ×2 (09:36→21:52)
[2019-12-07 09:46] LABS: ANISOCYTOSIS 1+; MACROCYTOSIS 0; PLATELET ESTIMATE NORMAL
--- NOTE | 2019-12-07 10:34 | PN ---
Progress Note, Physician History of Present Illness: pulmonary alert,confused,-resp distress - Current Medication List Current Medications: Active Medications Acetaminophen (Tylenol -) 650 mg PO Q4H PRN PRN Reason: FEVER Last Admin: 12/06/19 17:30 Dose: 650 mg Documented by: Al Hydroxide/Mg Hydroxide (Mylanta Oral Suspension -) 30 ml PO PCHS PRN PRN Reason: DYSPEPSIA Albuterol Sulfate (Ventolin Hfa Inhaler -) 2 puff IH Q8H PRN PRN Reason: SHORTNESS OF BREATH Budesonide/Formoterol Fumarate (Symbicort 160/4.5mcg -) 1 puff IH BID [facility] Last Admin: 12/06/19 21:37 Dose: 1 puff Documented by: Carvedilol (Coreg -) 3.125 mg PO BID [facility] Last Admin: 12/07/19 09:36 Dose: 3.125 mg Documented by: Clopidogrel Bisulfate (Plavix -) 75 mg PO DAILY [facility] Last Admin: 12/07/19 09:36 Dose: 75 mg Documented by: Docusate Sodium (Colace -) 100 mg PO Q12H PRN PRN Reason: CONSTIPATION Last Admin: 12/02/19 11:33 Dose: 100 mg Documented by: Escitalopram Oxalate (Lexapro -) 20 mg PO DAILY [facility] Last Admin: 12/07/19 09:36 Dose: 20 mg Documented by: Heparin Sodium (Porcine) (Heparin -) 5,000 unit SQ TID [facility] Last Admin: 12/07/19 06:12 Dose: 5,000 unit Documented by: Ampicillin Sodium/Sulbactam (Sodium 3 gm/ Sodium Chloride) 100 mls @ 200 mls/hr IVPB Q12H [facility] Last Admin: 12/07/19 09:36 Dose: 200 mls/hr Documented by: Sodium Chloride (1/2 Normal Saline) 1,000 mls @ 75 mls/hr IV ASDIR [facility] Last Admin: 12/07/19 04:55 Dose: 75 mls/hr Documented by: Insulin Aspart (Novolog Vial Sliding Scale -) 1 vial SQ Q6HPO [facility]; Protocol Last Admin: 12/07/19 06:20 Dose: 2 units Documented by: Melatonin (Melatonin) 10 mg PO HS [facility] Last Admin: 12/06/19 21:37 Dose: 10 mg Documented by: Pantoprazole Sodium (Protonix Packets For Oral Suspension -) 40 mg PO DAILY [facility] Last Admin: 12/07/19 09:36 Dose: 40 mg Documented by: Rosuvastatin Calcium (Crestor -) 20 mg PO [facility] Last Admin: 12/06/19 21:36 Dose: 20 mg Documented by: Tamsulosin HCl (Flomax -) 0.4 mg PO [facility] Last Admin: 12/06/19 21:36 Dose: 0.4 mg Documented by: - Objective Vital Signs: Vital Signs Temperature 98.8 F 12/07/19 08:30 Pulse Rate 82 12/07/19 08:30 Respiratory Rate 18 12/07/19 08:30 Blood Pressure 147/65 12/07/19 08:30 O2 Sat by Pulse Oximetry (%) 95 12/07/19 08:30 Constitutional: Yes: Well Nourished, Calm Eyes: Yes: WNL HENT: Yes: WNL Neck: Yes: WNL Cardiovascular: Yes: Regular Rate and Rhythm, S1, S2 Respiratory: Yes: Rales (few crackles r base) Gastrointestinal: Yes: Normal Bowel Sounds, Soft Extremities: Yes: WNL Edema: No Labs: CBC, BMP 12/07/19 07:20 12/07/19 07:20 INR, PTT INR 1.08 (0.83-1.09) 12/01/19 06:40 Problem List - Problems (1) Anemia Code(s): D64.9 - ANEMIA, UNSPECIFIED Qualifiers: Anemia type: unspecified type Qualified Code(s): D64.9 - Anemia, unspecified (2) Fall Code(s): W19.XXXA - UNSPECIFIED FALL, INITIAL ENCOUNTER Qualifiers: Encounter type: initial encounter Qualified Code(s): W19.XXXA - Unspecified fall, initial encounter (3) Hip fracture, left Code(s): S72.002A - FRACTURE OF UNSP PART OF NECK OF LEFT FEMUR, INIT Qualifiers: Encounter type: initial encounter Fracture type: closed Qualified Code(s): S72.002A - Fracture of unspecified part of neck of left femur, initial encounter for closed fracture (4) Neuropathy Code(s): G62.9 - POLYNEUROPATHY, UNSPECIFIED (5) Syncope Code(s): R55 - SYNCOPE AND COLLAPSE Qualifiers: Syncope type: unspecified Qualified Code(s): R55 - Syncope and collapse (6) Pneumonia Code(s): J18.9 - PNEUMONIA, UNSPECIFIED ORGANISM Qualifiers: Pneumonia type: due to unspecified organism Laterality: unspecified laterality Lung location: unspecified part of lung Qualified Code(s): J18.9 - Pneumonia, unspecified organism (7) Achalasia Code(s): K22.0 - ACHALASIA OF CARDIA (8) BPH (benign prostatic hypertrophy) Code(s): N40.0 - BENIGN PROSTATIC HYPERPLASIA WITHOUT LOWER URINRY TRACT SYMP Qualifiers: Lower urinary tract symptom presence: presence of symptoms unspecified (9) CAD (coronary artery disease) Code(s): I25.10 - ATHSCL HEART DISEASE OF [place] CORONARY ARTERY W/O ANG PCTRS Qualifiers: Coronary Disease-Associated Artery/Lesion type: [place] artery [place] vs. transplanted heart: [place] heart Associated angina: without angina Qualified Code(s): I25.10 - Atherosclerotic heart disease of [place] coronary artery without angina pectoris (10) CKD (chronic kidney disease) stage 3, GFR 30-59 ml/min Code(s): N18.3 - CHRONIC KIDNEY DISEASE, STAGE 3 (MODERATE) (11) COPD (chronic obstructive pulmonary disease) Code(s): J44.9 - CHRONIC OBSTRUCTIVE PULMONARY DISEASE, UNSPECIFIED (12) History of percutaneous coronary intervention Code(s): Z98.890 - OTHER SPECIFIED POSTPROCEDURAL STATES (13) Hx of CABG Code(s): Z95.1 - PRESENCE OF AORTOCORONARY BYPASS GRAFT (14) Hyperlipidemia Code(s): E78.5 - HYPERLIPIDEMIA, UNSPECIFIED Qualifiers: Hyperlipidemia type: pure hypercholesterolemia Qualified Code(s): E78.00 - Pure hypercholesterolemia, unspecified; E78.0 - Pure hypercholesterolemia (15) ICD (implantable cardioverter-defibrillator) in place Code(s): Z95.810 - PRESENCE OF AUTOMATIC (IMPLANTABLE) CARDIAC DEFIBRILLATOR (16) Ischemic cardiomyopathy Code(s): I25.5 - ISCHEMIC CARDIOMYOPATHY (17) Recurrent falls Code(s): R29.6 - REPEATED FALLS (18) Hypertension Code(s): I10 - ESSENTIAL (PRIMARY) HYPERTENSION Qualifiers: Hypertension type: essential hypertension Qualified Code(s): I10 - Essential (primary) hypertension Assessment/Plan IMP RLL PNEUMONIA LIKELY ASPIRATION CHF ASHD S/P CABG,PCI COPD LEFT HIP FX S/P MECHANICAL FALL S/P INTRA-MEDULLARY NAIL ALTERED MENTAL STATUS LIKELY TOXIC METABOLIC ENCEPHALOPATHY NEUROGENIC SYNCOPE DM HLD HTN H/O PUD S/P BILLROTH II H/O ACHALASIA S/P HELLER MYOTOMY ANEMIA HYPERNATREMIA PLAN SUPPLEMENTAL O2 INHALED BRONCHODILATORS ' ABX NORMAL TRANSFUSION THRESHOLD MONITOR LYTES,RENAL FUNCTION,H+H F/U CHEST X-RAYS DR DELVALLE Problem List - Problems (1) Anemia Code(s): D64.9 - ANEMIA, UNSPECIFIED Qualifiers: Anemia type: unspecified type Qualified Code(s): D64.9 - Anemia, unspecified (2) Fall Code(s): W19.XXXA - UNSPECIFIED FALL, INITIAL ENCOUNTER Qualifiers: Encounter type: initial encounter Qualified Code(s): W19.XXXA - Unspecified fall, initial encounter (3) Hip fracture, left Code(s): S72.002A - FRACTURE OF UNSP PART OF NECK OF LEFT FEMUR, INIT Qualifiers: Encounter type: initial encounter Fracture type: closed Qualified Code(s): S72.002A - Fracture of unspecified part of neck of left femur, initial encounter for closed fracture (4) Neuropathy Code(s): G62.9 - POLYNEUROPATHY, UNSPECIFIED (5) Syncope Code(s): R55 - SYNCOPE AND COLLAPSE Qualifiers: Syncope type: unspecified Qualified Code(s): R55 - Syncope and collapse (6) Pneumonia Code(s): J18.9 - PNEUMONIA, UNSPECIFIED ORGANISM Qualifiers: Pneumonia type: due to unspecified organism Laterality: unspecified laterality Lung location: unspecified part of lung Qualified Code(s): J18.9 - Pneumonia, unspecified organism (7) Achalasia Code(s): K22.0 - ACHALASIA OF CARDIA (8) BPH (benign prostatic hypertrophy) Code(s): N40.0 - BENIGN PROSTATIC HYPERPLASIA WITHOUT LOWER URINRY TRACT SYMP Qualifiers: Lower urinary tract symptom presence: presence of symptoms unspecified (9) CAD (coronary artery disease) Code(s): I25.10 - ATHSCL HEART DISEASE OF [place] CORONARY ARTERY W/O ANG PCTRS Qualifiers: Coronary Disease-Associated Artery/Lesion type: [place] artery [place] vs. transplanted heart: [place] heart Associated angina: without angina Qualified Code(s): I25.10 - Atherosclerotic heart disease of [place] coronary artery without angina pectoris (10) CKD (chronic kidney disease) stage 3, GFR 30-59 ml/min Code(s): N18.3 - CHRONIC KIDNEY DISEASE, STAGE 3 (MODERATE) (11) COPD (chronic obstructive pulmonary disease) Code(s): J44.9 - CHRONIC OBSTRUCTIVE PULMONARY DISEASE, UNSPECIFIED (12) History of percutaneous coronary intervention Code(s): Z98.890 - OTHER SPECIFIED POSTPROCEDURAL STATES (13) Hx of CABG Code(s): Z95.1 - PRESENCE OF AORTOCORONARY BYPASS GRAFT (14) Hyperlipidemia Code(s): E78.5 - HYPERLIPIDEMIA, UNSPECIFIED Qualifiers: Hyperlipidemia type: pure hypercholesterolemia Qualified Code(s): E78.00 - Pure hypercholesterolemia, unspecified; E78.0 - Pure hypercholesterolemia (15) ICD (implantable cardioverter-defibrillator) in place Code(s): Z95.810 - PRESENCE OF AUTOMATIC (IMPLANTABLE) CARDIAC DEFIBRILLATOR (16) Ischemic cardiomyopathy Code(s): I25.5 - ISCHEMIC CARDIOMYOPATHY (17) Recurrent falls Code(s): R29.6 - REPEATED FALLS (18) Hypertension Code(s): I10 - ESSENTIAL (PRIMARY) HYPERTENSION Qualifiers: Hypertension type: essential hypertension Qualified Code(s): I10 - Essential (primary) hypertension
--- NOTE | 2019-12-07 10:41 | PN ---
Progress Note, Physician History of Present Illness: Afebrile, MBS confirms silent aspiration resulting in post-prandial choking, denies recurrent syncope, left hip discomfort adequately controlled. - Current Medication List Current Medications: Active Medications Acetaminophen (Tylenol -) 650 mg PO Q4H PRN PRN Reason: FEVER Last Admin: 12/06/19 17:30 Dose: 650 mg Documented by: Al Hydroxide/Mg Hydroxide (Mylanta Oral Suspension -) 30 ml PO PCHS PRN PRN Reason: DYSPEPSIA Albuterol Sulfate (Ventolin Hfa Inhaler -) 2 puff IH Q8H PRN PRN Reason: SHORTNESS OF BREATH Budesonide/Formoterol Fumarate (Symbicort 160/4.5mcg -) 1 puff IH BID [facility] Last Admin: 12/06/19 21:37 Dose: 1 puff Documented by: Carvedilol (Coreg -) 3.125 mg PO BID [facility] Last Admin: 12/07/19 09:36 Dose: 3.125 mg Documented by: Clopidogrel Bisulfate (Plavix -) 75 mg PO DAILY [facility] Last Admin: 12/07/19 09:36 Dose: 75 mg Documented by: Docusate Sodium (Colace -) 100 mg PO Q12H PRN PRN Reason: CONSTIPATION Last Admin: 12/02/19 11:33 Dose: 100 mg Documented by: Escitalopram Oxalate (Lexapro -) 20 mg PO DAILY [facility] Last Admin: 12/07/19 09:36 Dose: 20 mg Documented by: Heparin Sodium (Porcine) (Heparin -) 5,000 unit SQ TID [facility] Last Admin: 12/07/19 06:12 Dose: 5,000 unit Documented by: Ampicillin Sodium/Sulbactam (Sodium 3 gm/ Sodium Chloride) 100 mls @ 200 mls/hr IVPB Q12H [facility] Last Admin: 12/07/19 09:36 Dose: 200 mls/hr Documented by: Sodium Chloride (1/2 Normal Saline) 1,000 mls @ 75 mls/hr IV ASDIR [facility] Last Admin: 12/07/19 04:55 Dose: 75 mls/hr Documented by: Insulin Aspart (Novolog Vial Sliding Scale -) 1 vial SQ Q6HPO [facility]; Protocol Last Admin: 12/07/19 06:20 Dose: 2 units Documented by: Melatonin (Melatonin) 10 mg PO HS [facility] Last Admin: 12/06/19 21:37 Dose: 10 mg Documented by: Pantoprazole Sodium (Protonix Packets For Oral Suspension -) 40 mg PO DAILY [facility] Last Admin: 12/07/19 09:36 Dose: 40 mg Documented by: Rosuvastatin Calcium (Crestor -) 20 mg PO [facility] Last Admin: 12/06/19 21:36 Dose: 20 mg Documented by: Tamsulosin HCl (Flomax -) 0.4 mg PO [facility] Last Admin: 12/06/19 21:36 Dose: 0.4 mg Documented by: - Objective Vital Signs: Vital Signs Temperature 98.8 F 12/07/19 08:30 Pulse Rate 82 12/07/19 08:30 Respiratory Rate 18 12/07/19 08:30 Blood Pressure 147/65 12/07/19 08:30 O2 Sat by Pulse Oximetry (%) 95 12/07/19 08:30 Constitutional: Yes: No Distress, Calm, Thin Neck: Yes: Supple Cardiovascular: Yes: Regular Rate and Rhythm Respiratory: Yes: Regular, CTA Bilaterally, On Nasal O2 Gastrointestinal: Yes: Normal Bowel Sounds, Soft Edema: No Labs: CBC, BMP 12/07/19 07:20 12/07/19 07:20 INR, PTT INR 1.08 (0.83-1.09) 12/01/19 06:40 - ....Imaging EKG: Report Reviewed (Tele: NSR) Problem List - Problems (1) CAD (coronary artery disease) Code(s): I25.10 - ATHSCL HEART DISEASE OF [place] CORONARY ARTERY W/O ANG PCTRS Qualifiers: Coronary Disease-Associated Artery/Lesion type: [place] artery [place] vs. transplanted heart: [place] heart Associated angina: without angina Qualified Code(s): I25.10 - Atherosclerotic heart disease of [place] coronary artery without angina pectoris (2) COPD (chronic obstructive pulmonary disease) Code(s): J44.9 - CHRONIC OBSTRUCTIVE PULMONARY DISEASE, UNSPECIFIED Qualifiers: COPD type: unspecified COPD Qualified Code(s): J44.9 - Chronic obstructive pulmonary disease, unspecified (3) History of percutaneous coronary intervention Code(s): Z98.890 - OTHER SPECIFIED POSTPROCEDURAL STATES (4) Hx of CABG Code(s): Z95.1 - PRESENCE OF AORTOCORONARY BYPASS GRAFT (5) ICD (implantable cardioverter-defibrillator) in place Code(s): Z95.810 - PRESENCE OF AUTOMATIC (IMPLANTABLE) CARDIAC DEFIBRILLATOR (6) Ischemic cardiomyopathy Code(s): I25.5 - ISCHEMIC CARDIOMYOPATHY (7) Recurrent falls Code(s): R29.6 - REPEATED FALLS (8) Acute on chronic renal insufficiency Code(s): N28.9 - DISORDER OF KIDNEY AND URETER, UNSPECIFIED; N18.9 - CHRONIC KIDNEY DISEASE, UNSPECIFIED (9) Orthostatic hypotension Code(s): I95.1 - ORTHOSTATIC HYPOTENSION Assessment/Plan 11/21/2019 Echo: Normal LV size with mild LVH and mild decreased LVEF 45-50%, grade I diastolic dysfunction, mild LAE, tr MR, mild-mod TR, mild SC RVSP 34 mmHg Echocardiography (10/15/18): Moderately reduced LV systolic function, LVEF 40-45%, grade 1 diastolic dysfunction, mild , mild MR, moderate TR, mild SC and pulmo nary HTN. 1. POD#6 left IM nail for femoral neck hip fracture 2. Fever referable to asp PNA 3. Chronic LV systolic heart failure (ischemic cardiomyopathy EF 45-50%) 4. CAD s/p [place], CABG, PCI/stents, angina pectoris 5. Post ICD implant 6. HTN 7. Hypercholesterolemia 8. T2DM 9. Acute on CKD stage 3 resolving 10. PAD s/p fem-pop bypass and [employer]ER 11. COPD 12. PUD s/p Bilroth II gastrectomy 13. 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 Gout 15. Kidney stones 16. Orthostatic hypotension on Northera 17. Gait disturbance 18. Post-op anemia 19. Hypernatremia PLAN: 1. Abx course per C&S, GI evaluation of esophageal dysmotility appreciated, needs dysphagia diet 2. Off Diovan 40 qd and Lasix 20 qd, judicious hydration and free water repletion pending renal and hypernatremia recovery, continue Plavix 75 mg QD, Coreg 3.125 mg BID and Crestor 20 mg QHS. Monitor orthostasis, has not been taking Northera 100 qd 3. DVT and GI prophylaxis and analgesia as needed 4. Monitor Hgb and transfuse as needed 5. PT as tolerated -> SNF 6. Eventual f/u with Dr. Morales in office
[2019-12-07] MEDS ORDERED: FUROSEMIDE 40 MG/4 ML INJECTABLE VIAL IVPUSH ONE (12:55)
[2019-12-07] MEDS ORDERED: FLUCONAZOLE 150 MG TABLET PO ONE (14:11)
[2019-12-07] MEDS: BUDESONIDE/FORMETEROL FUMARATE 160/4.5 mcg INHALER IH SCH ×2 (14:31→21:14)
--- NOTE | 2019-12-07 14:45 | PN ---
Physical Exam: SUBJECTIVE: Patient seen and examined at bedside. The patient is A&Ox1 (only to name) and hallucinating. The patient, when asked, denied fever/chills, cough, shortness of breath, diarrhea, constipation, nausea, muscle aches, and dysuria. Mild crackles were heard on lung auscultation. OBJECTIVE: Vital Signs Period Temp Pulse Resp BP Sys/Garcia Pulse Ox Last 24 Hr 97.5 F-98.8 F 73-85 18-20 115-154/47-75 95-99 GENERAL: The patient is A&Ox1, confused, but in no acute distress and looking mildly fatigued. HEAD: Normal with no signs of trauma. EYES: Extraocular movements intact, sclera anicteric, conjunctiva very pale. No ptosis. ENT: Ears normal, nares patent, oropharynx clear without exudates, moist mucous membranes. NECK: Trachea midline, full range of motion, supple. LUNGS: Decreased breath sounds bilaterally with mild crackles, no accessory muscle use. HEART: Regular rate and rhythm, S1, S2 without murmur, rub or gallop. ABDOMEN: Soft, nontender, nondistended, normoactive bowel sounds, no guarding, no rebound, no masses. EXTREMITIES: 2+ pulses, warm, well-perfused, no edema. NEUROLOGICAL: Normal speech, gait not observed. PSYCH: Normal mood, normal affect. SKIN: Warm, dry, normal turgor, no rashes or lesions noted. Capillary refill > 3 seconds. Nails pale and blanched. Laboratory Results - last 24 hr 12/06/19 12/06/19 12/06/19 17:11 17:30 23:02 WBC 5.7 RBC 3.10 L Hgb 8.5 L Hct 26.1 L D MCV 84.2 MCH 27.6 MCHC 32.8 RDW 18.5 H Plt Count 158 MPV 8.5 Absolute Neuts (auto) Neutrophils % Neutrophils % (Manual) Band Neutrophils % Lymphocytes % Lymphocytes % (Manual) Monocytes % Monocytes % (Manual) Eosinophils % Eosinophils % (Manual) Basophils % Basophils % (Manual) Myelocytes % (Man) Promyelocytes % (Man) Blast Cells % (Manual) Nucleated RBC % Metamyelocytes Hypochromia Platelet Estimate Polychromasia Anisocytosis Macrocytosis Sodium Potassium Chloride Carbon Dioxide Anion Gap BUN Creatinine Est GFR (CKD-EPI)AfAm Est GFR (CKD-EPI)NonAf POC Glucometer 301 272 Random Glucose Calcium Phosphorus Magnesium Total Bilirubin AST ALT Alkaline Phosphatase Total Protein Albumin 12/07/19 12/07/19 12/07/19 06:19 07:20 07:20 WBC 7.4 RBC 3.14 L Hgb 8.5 L Hct 25.6 L MCV 81.5 MCH 27.0 MCHC 33.1 RDW 18.0 H Plt Count 180 MPV 8.3 Absolute Neuts (auto) 6.1 Neutrophils % 82.2 Neutrophils % (Manual) 72.2 Band Neutrophils % 1.0 Lymphocytes % 9.1 D Lymphocytes % (Manual) 15.5 D Monocytes % 6.2 Monocytes % (Manual) 6 D Eosinophils % 2.0 Eosinophils % (Manual) 4.1 D Basophils % 0.5 Basophils % (Manual) 1.0 D Myelocytes % (Man) 0 Promyelocytes % (Man) 0 Blast Cells % (Manual) 0 Nucleated RBC % 2 H Metamyelocytes 0 Hypochromia 0 Platelet Estimate Normal Polychromasia 1+ Anisocytosis 1+ Macrocytosis 0 Sodium 149 H Potassium 3.9 Chloride 119 H Carbon Dioxide 23 Anion Gap 7 L BUN 36.2 H Creatinine 1.4 H Est GFR (CKD-EPI)AfAm 55.77 Est GFR (CKD-EPI)NonAf 48.12 POC Glucometer 243 Random Glucose 239 H Calcium 8.6 Phosphorus 2.3 L Magnesium 2.0 Total Bilirubin 1.2 H AST 53 H ALT 82 H Alkaline Phosphatase 94 Total Protein 5.8 L Albumin 2.3 L 12/07/19 11:10 WBC RBC Hgb Hct MCV MCH MCHC RDW Plt Count MPV Absolute Neuts (auto) Neutrophils % Neutrophils % (Manual) Band Neutrophils % Lymphocytes % Lymphocytes % (Manual) Monocytes % Monocytes % (Manual) Eosinophils % Eosinophils % (Manual) Basophils % Basophils % (Manual) Myelocytes % (Man) Promyelocytes % (Man) Blast Cells % (Manual) Nucleated RBC % Metamyelocytes Hypochromia Platelet Estimate Polychromasia Anisocytosis Macrocytosis Sodium Potassium Chloride Carbon Dioxide Anion Gap BUN Creatinine Est GFR (CKD-EPI)AfAm Est GFR (CKD-EPI)NonAf POC Glucometer 296 Random Glucose Calcium Phosphorus Magnesium Total Bilirubin AST ALT Alkaline Phosphatase Total Protein Albumin Active Medications Generic Name Dose Route Start Last Admin Trade Name Freq PRN Reason Stop Dose Admin Acetaminophen 650 mg 12/01/19 16:30 12/06/19 17:30 Tylenol - PO 650 mg Q4H PRN Administration FEVER Al Hydroxide/Mg Hydroxide 30 ml 12/01/19 16:30 Mylanta Oral Suspension - PO PCHS PRN DYSPEPSIA Albuterol Sulfate 2 puff 12/01/19 16:30 Ventolin Hfa Inhaler - IH Q8H PRN SHORTNESS OF BREATH Budesonide/Formoterol Fumarate 1 puff 12/01/19 22:00 12/07/19 14:31 Symbicort 160/4.5mcg - IH 1 puff BID [facility] Administration Carvedilol 3.125 mg 12/01/19 22:00 12/07/19 09:36 Coreg - PO 3.125 mg BID [facility] Administration Clopidogrel Bisulfate 75 mg 12/02/19 14:00 12/07/19 09:36 Plavix - PO 75 mg DAILY [facility] Administration Docusate Sodium 100 mg 12/01/19 16:30 12/02/19 11:33 Colace - PO 100 mg Q12H PRN Administration CONSTIPATION Escitalopram Oxalate 20 mg 12/02/19 10:00 12/07/19 09:36 Lexapro - PO 20 mg DAILY [facility] Administration Heparin Sodium (Porcine) 5,000 unit 12/02/19 22:00 12/07/19 14:29 Heparin - SQ 5,000 unit TID [facility] Administration Ampicillin Sodium/Sulbactam 100 mls @ 200 mls/hr 12/04/19 10:00 12/07/19 09:36 Sodium 3 gm/ Sodium Chloride IVPB 200 mls/hr Q12H [facility] Administration Sodium Chloride 1,000 mls @ 75 mls/hr 12/04/19 09:45 12/07/19 14:31 1/2 Normal Saline IV 75 mls/hr ASDIR [facility] Administration Insulin Aspart 1 vial 12/05/19 06:00 12/07/19 11:17 Novolog Vial Sliding Scale - SQ 4 units Q6HPO [facility] Administration Protocol Melatonin 10 mg 12/01/19 22:00 12/06/19 21:37 Melatonin PO 10 mg HS [facility] Administration Pantoprazole Sodium 40 mg 12/04/19 10:00 12/07/19 09:36 Protonix Packets For Oral Suspension - PO 40 mg DAILY [facility] Administration Rosuvastatin Calcium 20 mg 12/01/19 22:00 12/06/19 21:36 Crestor - PO 20 mg HS [facility] Administration Tamsulosin HCl 0.4 mg 12/01/19 22:00 12/06/19 21:36 Flomax - PO 0.4 mg HS [facility] Administration ASSESSMENT/PLAN: 79 year old male patient with past medical history that includes Systolic heart failure, CAD s/p PCI, CKD, s/p medtronic ICD, DM, PVD s/p partial gastrectomy, achalasia, penile implant, CABG, HTN, and HLD, who presented to the ED after a fall. 1. Femoral Neck Fracture s/p Intramedullary Nail Surgery - POD 6 - Patient is A&Ox1 - The patient denies fever and shortness of breath - Monitoring for any acute changes - The patient is receiving Tylenol for pain 2. Acute Metabolic Encephalopathy secondary to Low Hemoglobin - Hgb at to 8.5 today - Monitoring Hgb - Monitoring Electrolytes 3. Possible Aspiration PNA - Left lower lobe rhonchi - CXR shows a left infiltrate - Fever of 102.8 on 12/02 - Ampicillin/Sulbactam (Day 4) 4. Systolic CHF - Crackles on exam - IV lasix given today 5. Dehydration - Sodium 149 - Chloride 119 - The patient is receiving 1/2NS at 75 mls/hr - Monitoring patient's condition to see if higher IV fluid rates are needed 6. APRYL on CKD - Creatinine is trending down from a high of 2.4 to 1.4 today (1.6 yesterday) - Monitoring the Creatinine - IV fluids 7. Achalasia - The patient has the Dysphagia Puree Diet 8. DM - Novolog sliding scale 9. HTN - Coreg 10. HLD - Rosuvastatin # FEN - 1/2NS @ 75 mls/hr, Monitoring Electrolytes, Dysphagia Puree Diet DVT PPx - Heparin SQ and Plavix GI PPx - Protonix Visit type - Emergency Visit Emergency Visit: Yes ED Registration Date: 11/30/19 Care time: The patient presented to the Emergency Department on the above date and was hospitalized for further evaluation of their emergent condition. - New Patient This patient is new to me today: No - Critical Care Critical Care patient: No - Discharge Referral Referred to [facility] Med P.C.: No - Medication Review Med list reviewed for High Risk Meds patients 65 and older: Yes ATTENDING PHYSICIAN STATEMENT I saw and evaluated the patient. I reviewed the resident's note and discussed the case with the resident. I agree with the resident's findings and plan as documented. SUBJECTIVE: OBJECTIVE: ASSESSMENT AND PLAN:
--- NOTE | 2019-12-07 15:05 | PN.GI ---
GI Progress Note Subjective: no new complaints - Objective Vital Signs: Vital Signs Temperature 98.8 F 12/07/19 08:30 Pulse Rate 82 12/07/19 08:30 Respiratory Rate 18 12/07/19 08:30 Blood Pressure 147/65 12/07/19 08:30 O2 Sat by Pulse Oximetry (%) 95 12/07/19 08:30 Constitutional: No Distress, Calm Cardiovascular: Yes: WNL, Regular Rate and Rhythm Respiratory: Yes: WNL, Regular, CTA Bilaterally Gastrointestinal Inspection: Yes: WNL ...Auscultate: Yes: Normoactive Bowel Sounds Extremities: Yes: WNL Labs: CBC, BMP 12/07/19 07:20 12/07/19 07:20 INR, PTT INR 1.08 (0.83-1.09) 12/01/19 06:40 Problem List - Problems (1) Achalasia Assessment/Plan: [facility] reviewed - diet as per speech dept -- thickened liquids / solids outpt motility testing Code(s): K22.0 - ACHALASIA OF CARDIA
--- NOTE | 2019-12-07 16:21 | PN ---
Teaching Attending Note Name of Resident: Nate Valentino ATTENDING PHYSICIAN STATEMENT I saw and evaluated the patient. I reviewed the resident's note and discussed the case with the resident. I agree with the resident's findings and plan as documented. SUBJECTIVE: Patient is comfortable with no acute distress , continues to be confused. OBJECTIVE: Vital Signs Temperature 97.9 F 12/07/19 14:25 Pulse Rate 81 12/07/19 14:25 Respiratory Rate 22 H 12/07/19 14:25 Blood Pressure 144/58 L 12/07/19 14:25 O2 Sat by Pulse Oximetry (%) 95 12/07/19 08:30 PE: per resident's note CBCD WBC 7.4 K/mm3 (4.0-10.0) 12/07/19 07:20 RBC 3.14 M/mm3 (4.00-5.60) L 12/07/19 07:20 Hgb 8.5 GM/dL (11.7-16.9) L 12/07/19 07:20 Hct 25.6 % (35.4-49) L 12/07/19 07:20 MCV 81.5 fl (80-96) 12/07/19 07:20 MCHC 33.1 g/dl (32.0-35.9) 12/07/19 07:20 RDW 18.0 % (11.9-15.9) H 12/07/19 07:20 Plt Count 180 K/MM3 (134-434) 12/07/19 07:20 MPV 8.3 fl (7.5-11.1) 12/07/19 07:20 CMP Sodium 149 mmol/L (136-145) H 12/07/19 07:20 Potassium 3.9 mmol/L (3.5-5.1) 12/07/19 07:20 Chloride 119 mmol/L (98-107) H 12/07/19 07:20 Carbon Dioxide 23 mmol/L (21-32) 12/07/19 07:20 Anion Gap 7 MMOL/L (8-16) L 12/07/19 07:20 BUN 36.2 mg/dL (7-18) H 12/07/19 07:20 Creatinine 1.4 mg/dL (0.55-1.3) H 12/07/19 07:20 Random Glucose 239 mg/dL (74-106) H 12/07/19 07:20 Calcium 8.6 mg/dL (8.5-10.1) 12/07/19 07:20 Total Bilirubin 1.2 mg/dL (0.2-1) H 12/07/19 07:20 AST 53 U/L (15-37) H 12/07/19 07:20 ALT 82 U/L (13-61) H 12/07/19 07:20 Alkaline Phosphatase 94 U/L (45-117) 12/07/19 07:20 Total Protein 5.8 g/dl (6.4-8.2) L 12/07/19 07:20 Albumin 2.3 g/dl (3.4-5.0) L 12/07/19 07:20 CARDIAC ENZYMES Creatine Kinase 33 U/L (26-308) 11/30/19 08:35 Troponin I < 0.02 ng/ml (0.00-0.05) 11/30/19 08:35 Current Medications Generic Name Dose Route Start Last Admin Trade Name Hunterq PRN Reason Stop Dose Admin Acetaminophen 650 mg 12/01/19 16:30 12/06/19 17:30 Tylenol - PO 650 mg Q4H PRN Administration FEVER Al Hydroxide/Mg Hydroxide 30 ml 12/01/19 16:30 Mylanta Oral Suspension - PO PCHS PRN DYSPEPSIA Albuterol Sulfate 2 puff 12/01/19 16:30 Ventolin Hfa Inhaler - IH Q8H PRN SHORTNESS OF BREATH Budesonide/Formoterol Fumarate 1 puff 12/01/19 22:00 12/07/19 14:31 Symbicort 160/4.5mcg - IH 1 puff BID KADEEM Administration Carvedilol 3.125 mg 12/01/19 22:00 12/07/19 09:36 Coreg - PO 3.125 mg BID [facility] Administration Clopidogrel Bisulfate 75 mg 12/02/19 14:00 12/07/19 09:36 Plavix - PO 75 mg DAILY [facility] Administration Docusate Sodium 100 mg 12/01/19 16:30 12/02/19 11:33 Colace - PO 100 mg Q12H PRN Administration CONSTIPATION Escitalopram Oxalate 20 mg 12/02/19 10:00 12/07/19 09:36 Lexapro - PO 20 mg DAILY [facility] Administration Heparin Sodium (Porcine) 5,000 unit 12/02/19 22:00 12/07/19 14:29 Heparin - SQ 5,000 unit TID [facility] Administration Ampicillin Sodium/Sulbactam 100 mls @ 200 mls/hr 12/04/19 10:00 12/07/19 09:36 Sodium 3 gm/ Sodium Chloride IVPB 200 mls/hr Q12H [facility] Administration Sodium Chloride 1,000 mls @ 75 mls/hr 12/04/19 09:45 12/07/19 14:31 1/2 Normal Saline IV 75 mls/hr ASDIR [facility] Administration Insulin Aspart 1 vial 12/05/19 06:00 12/07/19 11:17 Novolog Vial Sliding Scale - SQ 4 units Q6HPO K[facility] Administration Protocol Melatonin 10 mg 12/01/19 22:00 12/06/19 21:37 Melatonin PO 10 mg HS [facility] Administration Pantoprazole Sodium 40 mg 12/04/19 10:00 12/07/19 09:36 Protonix Packets For Oral Suspension - PO 40 mg DAILY [facility] Administration Rosuvastatin Calcium 20 mg 12/01/19 22:00 12/06/19 21:36 Crestor - PO 20 mg HS [facility]EM Administration Tamsulosin HCl 0.4 mg 12/01/19 22:00 12/06/19 21:36 Flomax - PO 0.4 mg HS KADEEM Administration Home Medications Medication Instructions Recorded Carvedilol 3.125 mg PO BID 12/08/18 Escitalopram Oxalate [Lexapro -] 20 mg PO DAILY 12/08/18 Rosuvastatin Calcium [Crestor] 20 mg PO HS 12/08/18 Tamsulosin HCl 0.4 mg PO DAILY 01/11/19 Clopidogrel Bisulfate [Clopidogrel] 75 mg PO DAILY 04/07/19 Melatonin 10 mg PO HS 04/07/19 Sacubitril/Valsartan [Entresto 24 1 each PO BID 04/07/19 mg-26 mg Tablet] Albuterol Sulfate [Proair 2 puff NEB TID PRN 05/31/19 Digihaler] Bimatoprost [Lumigan] 1 drop DAILY 05/31/19 Furosemide 20 mg PO DAILY 05/31/19 Albuterol 0.083% Nebulizer Fatuma 1 neb NEB QID 11/30/19 [Ventolin 0.083%] Budesonide/Formeterol Fumarate 1 inh PO BID 11/30/19 [SYMBICORT 160/4.5mcg -] Insulin Glargine,Hum.rec.anlog 58 units SQ HS 12/01/19 [Lantus Solostar PEN -] Microbiology 12/03/19 21:00 Blood - Peripheral Venous Blood Culture - Preliminary NO GROWTH OBTAINED AFTER 72 HOURS, INCUBATION TO CONTINUE FOR 2 DAYS. 12/03/19 21:00 Blood - Peripheral Venous Blood Culture - Preliminary NO GROWTH OBTAINED AFTER 72 HOURS, INCUBATION TO CONTINUE FOR 2 DAYS. 12/04/19 11:00 Urine - Urine - Catheterized Urine Culture - Final Yeast Like Organism ASSESSMENT AND PLAN: This patient is a 79yom with PMhx of systolic heart failure , CAD, s/p PCI ,CKD, s/p medtronic ICD, DM, PUD s/p partial gastrectomy, Achalasia , CABG, HTN, HLP,penile implant ,and copd ( 2 L of O2 ) , who presented after a fall and was found to have L sided femoral neck Fx #Possible aspiration pneumonia : on IV antibiotic Unasyn continue ; on dysphagia diet # L Fem neck Fx, s/p intramedullary nail # s/p FAll.: syncope vs orthostatic hypotension /dehydration # APRYL on CKD: due to prerenal azotemia form hypotension, can't r/o ATN , diovan on hold due to APRYL # Hypernatremia /dehydration : on 1/2 ns IVF , improving sodium is 149 today # Acute delirium: improved # H/o DM , CAD, HLP: hold levemir. cont SSI q 6h. # h/o systolic heart failure # H/o HTN #Hx of COPD on home o2 2l DVT xp; heparin continue PT will need rehab at [facility]
[2019-12-07] MEDS: ROSUVASTATIN CA 20 MG TABLET (FP) PO SCH (21:14)
[2019-12-07] MEDS: MELATONIN 5 MG TABLETS PO SCH (21:14)
[2019-12-07] MEDS: TAMSULOSIN HCL 0.4 MG CAP PO SCH (21:14)
[2019-12-08] MEDS: INSULIN SLIDING SCALE (NOVOLOG) 1 VIAL SQ SCH ×3 (06:00→17:02)
[2019-12-08] MEDS: HEPARIN NA (PORCINE) 5,000 UNITS/ML 1ML VIAL SQ SCH ×3 (06:01→21:43)
[2019-12-08 08:07] LABS: BLOOD UREA NITROGEN 28.6 mg/dL (7-18); CALCIUM 7.7 mg/dL (8.5-10.1); PHOSPHOROUS 2.5 mg/dL (2.5-4.9); POTASSIUM 3.5 mmol/L (3.5-5.1); TOT PROT 5.2 g/dl (6.4-8.2)
[2019-12-08 08:08] LABS: BASO % 0.3 % (0-2.0); CREATININE 1.3 mg/dL (0.55-1.3); EOS % 1.9 % (0-4.5); HEMOGLOBIN 7.9 GM/dL (11.7-16.9); LYMPH % 11.5 % (8-40); MAGNESIUM 1.7 mg/dL (1.8-2.4); MCH 26.9 pg (25.7-33.7); MCHC 33.1 g/dl (32.0-35.9); MEAN CELL VOLUME 81.3 fl (80-96); MEAN PLT VOLUME 8.3 fl (7.5-11.1); MONO % 6.2 % (3.8-10.2); NEUT % 80.1 % (42.8-82.8); PLATELET COUNT 169 K/MM3 (134-434); RBC 2.95 M/mm3 (4.00-5.60); RDW 18.1 % (11.9-15.9); WHITE BLOOD COUNT 6.2 K/mm3 (4.0-10.0)
[2019-12-08] MEDS ORDERED: PT OWN MED DRAWER 7, Y5N ONE ×2 (08:45→21:22)
--- NOTE | 2019-12-08 09:16 | PN ---
Progress Note, Physician History of Present Illness: Afebrile, MBS confirms silent aspiration resulting in post-prandial choking, denies recurrent syncope, left hip discomfort adequately controlled. - Current Medication List Current Medications: Active Medications Acetaminophen (Tylenol -) 650 mg PO Q4H PRN PRN Reason: FEVER Last Admin: 12/06/19 17:30 Dose: 650 mg Documented by: Al Hydroxide/Mg Hydroxide (Mylanta Oral Suspension -) 30 ml PO PCHS PRN PRN Reason: DYSPEPSIA Albuterol Sulfate (Ventolin Hfa Inhaler -) 2 puff IH Q8H PRN PRN Reason: SHORTNESS OF BREATH Budesonide/Formoterol Fumarate (Symbicort 160/4.5mcg -) 1 puff IH BID [facility] Last Admin: 12/07/19 21:14 Dose: 1 puff Documented by: Carvedilol (Coreg -) 3.125 mg PO BID [facility] Last Admin: 12/07/19 21:14 Dose: 3.125 mg Documented by: Clopidogrel Bisulfate (Plavix -) 75 mg PO DAILY [facility] Last Admin: 12/07/19 09:36 Dose: 75 mg Documented by: Docusate Sodium (Colace -) 100 mg PO Q12H PRN PRN Reason: CONSTIPATION Last Admin: 12/02/19 11:33 Dose: 100 mg Documented by: Escitalopram Oxalate (Lexapro -) 20 mg PO DAILY [facility] Last Admin: 12/07/19 09:36 Dose: 20 mg Documented by: Heparin Sodium (Porcine) (Heparin -) 5,000 unit SQ TID [facility] Last Admin: 12/08/19 06:01 Dose: 5,000 unit Documented by: Ampicillin Sodium/Sulbactam (Sodium 3 gm/ Sodium Chloride) 100 mls @ 200 mls/hr IVPB Q12H [facility] Last Admin: 12/07/19 21:52 Dose: 200 mls/hr Documented by: Sodium Chloride (1/2 Normal Saline) 1,000 mls @ 75 mls/hr IV ASDIR [facility] Last Admin: 12/07/19 21:50 Dose: 75 mls/hr Documented by: Insulin Aspart (Novolog Vial Sliding Scale -) 1 vial SQ Q6HPO [facility]; Protocol Last Admin: 12/08/19 06:00 Dose: Not Given Documented by: Melatonin (Melatonin) 10 mg PO HS [facility] Last Admin: 12/07/19 21:14 Dose: 10 mg Documented by: Pantoprazole Sodium (Protonix Packets For Oral Suspension -) 40 mg PO DAILY [facility] Last Admin: 12/07/19 09:36 Dose: 40 mg Documented by: Rosuvastatin Calcium (Crestor -) 20 mg PO [facility] Last Admin: 12/07/19 21:14 Dose: 20 mg Documented by: Tamsulosin HCl (Flomax -) 0.4 mg PO [facility] Last Admin: 12/07/19 21:14 Dose: 0.4 mg Documented by: - Objective Vital Signs: Vital Signs Temperature 98.8 F 12/08/19 08:23 Pulse Rate 64 12/08/19 08:23 Respiratory Rate 20 12/08/19 08:26 Blood Pressure 130/52 L 12/08/19 08:23 O2 Sat by Pulse Oximetry (%) 96 12/08/19 08:26 Constitutional: Yes: No Distress, Calm, Thin Neck: Yes: Supple Cardiovascular: Yes: Regular Rate and Rhythm Respiratory: Yes: Diminished, On Nasal O2 Gastrointestinal: Yes: Soft, Hypoactive Bowel Sounds Edema: No Labs: CBC, BMP 12/08/19 05:27 12/08/19 05:27 INR, PTT INR 1.08 (0.83-1.09) 12/01/19 06:40 Problem List - Problems (1) CAD (coronary artery disease) Code(s): I25.10 - ATHSCL HEART DISEASE OF [place] CORONARY ARTERY W/O ANG PCTRS Qualifiers: Coronary Disease-Associated Artery/Lesion type: [place] artery [place] vs. transplanted heart: [place] heart Associated angina: without angina Qualified Code(s): I25.10 - Atherosclerotic heart disease of [place] coronary artery wi thout angina pectoris (2) COPD (chronic obstructive pulmonary disease) Code(s): J44.9 - CHRONIC OBSTRUCTIVE PULMONARY DISEASE, UNSPECIFIED Qualifiers: COPD type: unspecified COPD Qualified Code(s): J44.9 - Chronic obstructive pulmonary disease, unspecified (3) History of percutaneous coronary intervention Code(s): Z98.890 - OTHER SPECIFIED POSTPROCEDURAL STATES (4) Hx of CABG Code(s): Z95.1 - PRESENCE OF AORTOCORONARY BYPASS GRAFT (5) ICD (implantable cardioverter-defibrillator) in place Code(s): Z95.810 - PRESENCE OF AUTOMATIC (IMPLANTABLE) CARDIAC DEFIBRILLATOR (6) Ischemic cardiomyopathy Code(s): I25.5 - ISCHEMIC CARDIOMYOPATHY (7) Recurrent falls Code(s): R29.6 - REPEATED FALLS (8) Acute on chronic renal insufficiency Code(s): N28.9 - DISORDER OF KIDNEY AND URETER, UNSPECIFIED; N18.9 - CHRONIC KIDNEY DISEASE, UNSPECIFIED (9) Orthostatic hypotension Code(s): I95.1 - ORTHOSTATIC HYPOTENSION Assessment/Plan 11/21/2019 Echo: Normal LV size with mild LVH and mild decreased LVEF 45-50%, grade I diastolic dysfunction, mild LAE, tr MR, mild-mod TR, mild NM RVSP 34 mmHg Echocardiography (10/15/18): Moderately reduced LV systolic function, LVEF 40-45%, grade 1 diastolic dysfunction, mild , mild MR, moderate TR, mild NM and pulmonary HTN. 1. POD#7 left IM nail for femoral neck hip fracture 2. Fever referable to asp PNA 3. Chronic LV systolic heart failure (ischemic cardiomyopathy EF 45-50%) 4. CAD s/p NC, CABG, PCI/stents, angina pectoris 5. Post ICD implant 6. HTN 7. Hypercholesterolemia 8. T2DM 9. Acute on CKD stage 3 resolving 10. PAD s/p fem-pop bypass and [employer] 11. COPD 12. PUD s/p Bilroth II gastrectomy 13. 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 Gout 15. Kidney stones 16. Orthostatic hypotension on Northera 17. Gait disturbance 18. Post-op anemia 19. Hypernatremia PLAN: 1. Abx course per C&S, outpatient motility studies, needs dysphagia diet 2. Off Diovan 40 qd and Lasix 20 qd, judicious hydration and free water repletion pending renal and hypernatremia recovery, continue Plavix 75 mg QD, Coreg 3.125 mg BID and Crestor 20 mg QHS. Monitor orthostasis, has not been taking Northera 100 qd 3. DVT and GI prophylaxis and analgesia as needed 4. Monitor Hgb and transfuse as needed 5. PT as tolerated -> SNF 6. Eventual f/u with Dr. Morales in office
[2019-12-08] MEDS: CARVEDILOL 3.125 MG TABLET (FP) PO SCH ×2 (09:22→21:43)
[2019-12-08] MEDS: AMPICILLIN NA/SULBACTAM NA 3 GM in SODIUM CHLORIDE 100 ML IVPB SCH ×2 (09:22→21:44)
[2019-12-08] MEDS: PANTOPRAZOLE SOD 40 MG SUSPENSION PACKET PO SCH (09:22)
[2019-12-08] MEDS: ESCITALOPRAM OXALATE 20 MG TABLET PO SCH (09:22)
[2019-12-08] MEDS: CLOPIDOGREL BISULFATE 75 MG TABLET (FP) PO SCH (09:22)
[2019-12-08] MEDS: BUDESONIDE/FORMETEROL FUMARATE 160/4.5 mcg INHALER IH SCH ×2 (09:23→21:47)
[2019-12-08] MEDS: SODIUM CHLORIDE 0.45% 1,000 ML IV SCH (09:23)
[2019-12-08 10:00] LABS: ANISOCYTOSIS 2+; MACROCYTOSIS 0; PLATELET ESTIMATE NORMAL; TEAR DROP CELLS 1+
[2019-12-08] MEDS ORDERED: MAGNESIUM SULF 50% (8.12 MEQ/2 ML-1 GM VIAL) IVPB ONE (10:06)
[2019-12-08] MEDS ORDERED: MAGNESIUM 1GM/D5W - 1 GM/100 ML IVPB IVPB ONE (11:00)
--- NOTE | 2019-12-08 18:48 | PN ---
Physical Exam: SUBJECTIVE: Patient seen and examined at bedside. The patient is lying in bed looking tired. The patient is A&O x 2 (name and place only), and reports hallucinations and body aches. The patient denied fever/chills, shortness of breath, cough, sputum production, diarrhea, constipation, nausea, dysuria, and sweating. OBJECTIVE: Vital Signs Period Temp Pulse Resp BP Sys/Garcia Pulse Ox Last 24 Hr 97.7 F-98.8 F 59-72 20-20 110-147/45-74 95-97 GENERAL: The patient is A&Ox2 (name and place only), in no acute distress but looking fatigued. HEAD: Normal with no signs of trauma. EYES: Extraocular movements intact, sclera anicteric, conjunctiva very pale. No ptosis. ENT: Ears normal, nares patent, oropharynx clear without exudates, dry mucous membranes. NECK: Trachea midline, full range of motion, supple. LUNGS: Decreased breath sounds bilaterally, no accessory muscle use. HEART: Regular rate and rhythm, S1, S2 without murmur, rub or gallop. ABDOMEN: Soft, nontender, nondistended, normoactive bowel sounds, no guarding, no rebound, no masses. EXTREMITIES: 2+ pulses, warm, well-perfused, no edema. NEUROLOGICAL: Normal speech, gait not observed. PSYCH: Normal mood, normal affect. SKIN: Warm, dry, normal turgor, no rashes or lesions noted. Capillary refill > 3 seconds. Nails pale and blanched. Laboratory Results - last 24 hr 12/07/19 12/08/19 12/08/19 23:27 05:27 05:27 WBC 6.2 RBC 2.95 L Hgb 7.9 L Hct 24.0 L MCV 81.3 MCH 26.9 MCHC 33.1 RDW 18.1 H Plt Count 169 MPV 8.3 Absolute Neuts (auto) 5.0 Neutrophils % 80.1 Neutrophils % (Manual) 78.0 Band Neutrophils % 2.0 Lymphocytes % 11.5 D Lymphocytes % (Manual) 11.0 D Monocytes % 6.2 Monocytes % (Manual) 2 L Eosinophils % 1.9 Eosinophils % (Manual) 4.0 Basophils % 0.3 Basophils % (Manual) 1.0 Myelocytes % (Man) 0 Promyelocytes % (Man) 0 Blast Cells % (Manual) 0 Nucleated RBC % 0 Metamyelocytes 0 Hypochromia 0 Platelet Estimate Normal Polychromasia 1+ Poikilocytosis 1+ Anisocytosis 2+ Microcytosis 2+ Macrocytosis 0 Tear Drop Cells 1+ Carla Cells 1+ Sodium 145 Potassium 3.5 Chloride 113 H Carbon Dioxide 21 Anion Gap 11 BUN 28.6 H Creatinine 1.3 Est GFR (CKD-EPI)AfAm 61.00 Est GFR (CKD-EPI)NonAf 52.63 POC Glucometer 204 Random Glucose 191 H Calcium 7.7 L Phosphorus 2.5 Magnesium 1.7 L Total Bilirubin 1.0 AST 57 H ALT 75 H Alkaline Phosphatase 91 Total Protein 5.2 L Albumin 2.0 L 12/08/19 12/08/19 12/08/19 05:29 11:08 16:36 WBC RBC Hgb Hct MCV MCH MCHC RDW Plt Count MPV Absolute Neuts (auto) Neutrophils % Neutrophils % (Manual) Band Neutrophils % Lymphocytes % Lymphocytes % (Manual) Monocytes % Monocytes % (Manual) Eosinophils % Eosinophils % (Manual) Basophils % Basophils % (Manual) Myelocytes % (Man) Promyelocytes % (Man) Blast Cells % (Manual) Nucleated RBC % Metamyelocytes Hypochromia Platelet Estimate Polychromasia Poikilocytosis Anisocytosis Microcytosis Macrocytosis Tear Drop Cells Carla Cells Sodium Potassium Chloride Carbon Dioxide Anion Gap BUN Creatinine Est GFR (CKD-EPI)AfAm Est GFR (CKD-EPI)NonAf POC Glucometer 180 265 340 Random Glucose Calcium Phosphorus Magnesium Total Bilirubin AST ALT Alkaline Phosphatase Total Protein Albumin Active Medications Generic Name Dose Route Start Last Admin Trade Name Freq PRN Reason Stop Dose Admin Acetaminophen 650 mg 12/01/19 16:30 12/06/19 17:30 Tylenol - PO 650 mg Q4H PRN Administration FEVER Albuterol Sulfate 2 puff 12/01/19 16:30 Ventolin Hfa Inhaler - IH Q8H PRN SHORTNESS OF BREATH Budesonide/Formoterol Fumarate 1 puff 12/01/19 22:00 12/08/19 09:23 Symbicort 160/4.5mcg - IH 1 puff BID [facility] Administration Carvedilol 3.125 mg 12/01/19 22:00 12/08/19 09:22 Coreg - PO 3.125 mg BID [facility] Administration Clopidogrel Bisulfate 75 mg 12/02/19 14:00 12/08/19 09:22 Plavix - PO 75 mg DAILY [facility] Administration Docusate Sodium 100 mg 12/01/19 16:30 12/02/19 11:33 Colace - PO 100 mg Q12H PRN Administration CONSTIPATION Escitalopram Oxalate 20 mg 12/02/19 10:00 12/08/19 09:22 Lexapro - PO 20 mg DAILY [facility] Administration Heparin Sodium (Porcine) 5,000 unit 12/02/19 22:00 12/08/19 13:01 Heparin - SQ 5,000 unit TID [facility] Administration Ampicillin Sodium/Sulbactam 100 mls @ 200 mls/hr 12/04/19 10:00 12/08/19 09:22 Sodium 3 gm/ Sodium Chloride IVPB 200 mls/hr Q12H [facility] Administration Sodium Chloride 1,000 mls @ 75 mls/hr 12/04/19 09:45 12/08/19 09:23 1/2 Normal Saline IV 75 mls/hr ASDIR [facility] Administration Insulin Aspart 1 vial 12/05/19 06:00 12/08/19 17:02 Novolog Vial Sliding Scale - SQ 6 units Q6HPO [facility] Administration Protocol Melatonin 10 mg 12/01/19 22:00 12/07/19 21:14 Melatonin PO 10 mg HS [facility] Administration Pantoprazole Sodium 40 mg 12/04/19 10:00 12/08/19 09:22 Protonix Packets For Oral Suspension - PO 40 mg DAILY [facility] Administration Rosuvastatin Calcium 20 mg 12/01/19 22:00 12/07/19 21:14 Crestor - PO 20 mg HS [facility] Administration Tamsulosin HCl 0.4 mg 12/01/19 22:00 12/07/19 21:14 Flomax - PO 0.4 mg HS [facility] Administration ASSESSMENT/PLAN: 79 year old male patient with past medical history that includes Systolic heart failure, CAD s/p PCI, CKD, s/p medtronic ICD, DM, PVD s/p partial gastrectomy, achalasia, penile implant, CABG, HTN, and HLD, who presented to the ED after a fall. 1. Femoral Neck Fracture s/p Intramedullary Nail Surgery - POD 7 - Patient is A&Ox2 (to name and place only) - Monitoring for any acute changes - The patient is receiving Tylenol for pain 2. Acute Metabolic Encephalopathy secondary to Low Hemoglobin - Hgb at to 7.9 today - Monitoring Hgb - Monitoring Electrolytes 3. Possible Aspiration PNA - CXR showed a left infiltrate - Fever of 102.8 on 12/02 - Ampicillin/Sulbactam (Day 5) 4. Systolic CHF - No crackles on exam 5. Dehydration - Sodium 145 (within normal limits) - Chloride 113 - The patient is receiving 1/2NS at 75 mls/hr - Monitoring patient's condition to see if higher IV fluid rates are needed 6. APRYL - resolved - Creatinine is trending down from a high of 2.4 to 1.3 today (which is within normal limits) - Monitoring the Creatinine - IV fluids 7. Achalasia - The patient has the Dysphagia Puree Diet 8. DM - Novolog sliding scale 9. HTN - Coreg 10. HLD - Rosuvastatin # FEN - 1/2NS @ 75 mls/hr, Monitoring Electrolytes, Dysphagia Puree Diet DVT PPx - Heparin SQ and Plavix GI PPx - Protonix Visit type - Emergency Visit Emergency Visit: Yes ED Registration Date: 11/30/19 Care time: The patient presented to the Emergency Department on the above date and was hospitalized for further evaluation of their emergent condition. - New Patient This patient is new to me today: No - Critical Care Critical Care patient: No - Discharge Referral Referred to [facility] No - Medication Review Med list reviewed for High Risk Meds patients 65 and older: Yes ATTENDING PHYSICIAN STATEMENT I saw and evaluated the patient. I reviewed the resident's note and discussed the case with the resident. I agree with the resident's findings and plan as documented. SUBJECTIVE: OBJECTIVE: ASSESSMENT AND PLAN:
--- NOTE | 2019-12-08 20:30 | PN ---
Teaching Attending Note Name of Resident: Nate Valentino ATTENDING PHYSICIAN STATEMENT I saw and evaluated the patient. I reviewed the resident's note and discussed the case with the resident. I agree with the resident's findings and plan as documented. SUBJECTIVE: Patient is better today continues to be on dyspaghia diet. OBJECTIVE: Vital Signs Temperature 98.1 F 12/08/19 17:49 Pulse Rate 64 12/08/19 17:49 Respiratory Rate 20 12/08/19 17:49 Blood Pressure 147/53 L 12/08/19 17:49 O2 Sat by Pulse Oximetry (%) 96 12/08/19 08:26 PE: per resident's note CBCD WBC 6.2 K/mm3 (4.0-10.0) 12/08/19 05:27 RBC 2.95 M/mm3 (4.00-5.60) L 12/08/19 05:27 Hgb 7.9 GM/dL (11.7-16.9) L 12/08/19 05:27 Hct 24.0 % (35.4-49) L 12/08/19 05:27 MCV 81.3 fl (80-96) 12/08/19 05:27 MCHC 33.1 g/dl (32.0-35.9) 12/08/19 05:27 RDW 18.1 % (11.9-15.9) H 12/08/19 05:27 Plt Count 169 K/MM3 (134-434) 12/08/19 05:27 MPV 8.3 fl (7.5-11.1) 12/08/19 05:27 CMP Sodium 145 mmol/L (136-145) 12/08/19 05:27 Potassium 3.5 mmol/L (3.5-5.1) 12/08/19 05:27 Chloride 113 mmol/L (98-107) H 12/08/19 05:27 Carbon Dioxide 21 mmol/L (21-32) 12/08/19 05:27 Anion Gap 11 MMOL/L (8-16) 12/08/19 05:27 BUN 28.6 mg/dL (7-18) H 12/08/19 05:27 Creatinine 1.3 mg/dL (0.55-1.3) 12/08/19 05:27 Random Glucose 191 mg/dL (74-106) H 12/08/19 05:27 Calcium 7.7 mg/dL (8.5-10.1) L 12/08/19 05:27 Total Bilirubin 1.0 mg/dL (0.2-1) 12/08/19 05:27 AST 57 U/L (15-37) H 12/08/19 05:27 ALT 75 U/L (13-61) H 12/08/19 05:27 Alkaline Phosphatase 91 U/L (45-117) 12/08/19 05:27 Total Protein 5.2 g/dl (6.4-8.2) L 12/08/19 05:27 Albumin 2.0 g/dl (3.4-5.0) L 12/08/19 05:27 CARDIAC ENZYMES Creatine Kinase 33 U/L (26-308) 11/30/19 08:35 Troponin I < 0.02 ng/ml (0.00-0.05) 11/30/19 08:35 Current Medications Generic Name Dose Route Start Last Admin Trade Name Hunterq PRN Reason Stop Dose Admin Acetaminophen 650 mg 12/01/19 16:30 12/06/19 17:30 Tylenol - PO 650 mg Q4H PRN Administration FEVER Albuterol Sulfate 2 puff 12/01/19 16:30 Ventolin Hfa Inhaler - IH Q8H PRN SHORTNESS OF BREATH Budesonide/Formoterol Fumarate 1 puff 12/01/19 22:00 12/08/19 09:23 Symbicort 160/4.5mcg - IH 1 puff BID [facility] Administration Carvedilol 3.125 mg 12/01/19 22:00 12/08/19 09:22 Coreg - PO 3.125 mg BID [facility] Administration Clopidogrel Bisulfate 75 mg 12/02/19 14:00 12/08/19 09:22 Plavix - PO 75 mg DAILY [facility] Administration Docusate Sodium 100 mg 12/01/19 16:30 12/02/19 11:33 Colace - PO 100 mg Q12H PRN Administration CONSTIPATION Escitalopram Oxalate 20 mg 12/02/19 10:00 12/08/19 09:22 Lexapro - PO 20 mg DAILY [facility] Administration Heparin Sodium (Porcine) 5,000 unit 12/02/19 22:00 12/08/19 13:01 Heparin - SQ 5,000 unit TID [facility] Administration Ampicillin Sodium/Sulbactam 100 mls @ 200 mls/hr 12/04/19 10:00 12/08/19 09:22 Sodium 3 gm/ Sodium Chloride IVPB 200 mls/hr Q12H [facility] Administration Sodium Chloride 1,000 mls @ 75 mls/hr 12/04/19 09:45 12/08/19 09:23 1/2 Normal Saline IV 75 mls/hr ASDIR [facility] Administration Insulin Aspart 1 vial 12/05/19 06:00 12/08/19 17:02 Novolog Vial Sliding Scale - SQ 6 units Q6HPO [facility] Administration Protocol Melatonin 10 mg 12/01/19 22:00 12/07/19 21:14 Melatonin PO 10 mg HS [facility] Administration Pantoprazole Sodium 40 mg 12/04/19 10:00 12/08/19 09:22 Protonix Packets For Oral Suspension - PO 40 mg DAILY [facility] Administration Rosuvastatin Calcium 20 mg 12/01/19 22:00 12/07/19 21:14 Crestor - PO 20 mg HS [facility] Administration Tamsulosin HCl 0.4 mg 12/01/19 22:00 12/07/19 21:14 Flomax - PO 0.4 mg HS [facility] Administration Home Medications Medication Instructions Recorded RX: Carvedilol 3.125 mg PO BID 12/08/18 RX: Escitalopram Oxalate [Lexapro 20 mg PO DAILY 12/08/18 -] RX: Rosuvastatin Calcium [Crestor] 20 mg PO HS 12/08/18 RX: Tamsulosin HCl 0.4 mg PO DAILY 01/11/19 RX: Clopidogrel Bisulfate 75 mg PO DAILY 04/07/19 [Clopidogrel] RX: Melatonin 10 mg PO HS 04/07/19 RX: Sacubitril/Valsartan [Entresto 1 each PO BID 04/07/19 24 mg-26 mg Tablet] RX: Albuterol Sulfate [Proair 2 puff NEB TID PRN 05/31/19 Digihaler] RX: Bimatoprost [Lumigan] 1 drop DAILY 05/31/19 RX: Furosemide 20 mg PO DAILY 05/31/19 Albuterol 0.083% Nebulizer Fatuma 1 neb NEB QID 11/30/19 [Ventolin 0.083%] Budesonide/Formeterol Fumarate 1 inh PO BID 11/30/19 [SYMBICORT 160/4.5mcg -] RX: Insulin Glargine,Hum.rec.anlog 58 units SQ HS 12/01/19 [Lantus Solostar PEN -] Microbiology 12/03/19 21:00 Blood - Peripheral Venous Blood Culture - Preliminary NO GROWTH OBTAINED AFTER 96 HOURS, INCUBATION TO CONTINUE FOR 1 DAYS. 12/03/19 21:00 Blood - Peripheral Venous Blood Culture - Preliminary NO GROWTH OBTAINED AFTER 96 HOURS, INCUBATION TO CONTINUE FOR 1 DAYS. 12/04/19 11:00 Urine - Urine - Catheterized Urine Culture - Final Yeast Like Organism ASSESSMENT AND PLAN: This patient is a 79yom with PMhx of systolic heart failure , CAD, s/p PCI ,CKD, s/p medtronic ICD, DM, PUD s/p partial gastrectomy, Achalasia , CABG, HTN, HLP,penile implant ,and copd ( 2 L of O2 ) , who presented after a fall and was found to have L sided femoral neck Fx #Possible aspiration pneumonia : on IV antibiotic Unasyn continue ; on dysphagia diet # L Fem neck Fx, s/p intramedullary nail # s/p FAll.: syncope vs orthostatic hypotension /dehydration # APRYL on CKD: due to prerenal azotemia form hypotension, can't r/o ATN , diovan on hold due to APRYL # Hypernatremia /dehydration : on 1/2 ns IVF , improving sodium is 149--> 145 today # Acute delirium: improved # H/o DM , CAD, HLP: hold levemir. cont SSI q 6h. # h/o systolic heart failure L: gentle hydration # H/o HTN #Hx of COPD on home o2 2l DVT xp; heparin continue PT will need rehab [facility]
[2019-12-08] MEDS: TAMSULOSIN HCL 0.4 MG CAP PO SCH (21:43)
[2019-12-08] MEDS: ROSUVASTATIN CA 20 MG TABLET (FP) PO SCH (21:43)
[2019-12-08] MEDS: MELATONIN 5 MG TABLETS PO SCH (21:44)
[2019-12-09] MEDS: INSULIN SLIDING SCALE (NOVOLOG) 1 VIAL SQ SCH ×4 (00:05→17:23)
[2019-12-09] MEDS ORDERED: ACETAMINOPHEN 1000 MG/100 ML VIAL (NON FORMULARY) IVPB ONE ×2 (06:13→18:56)
[2019-12-09] MEDS: HEPARIN NA (PORCINE) 5,000 UNITS/ML 1ML VIAL SQ SCH ×3 (06:24→21:06)
[2019-12-09] MEDS: SODIUM CHLORIDE 0.45% 1,000 ML IV SCH ×2 (06:25→10:22)
[2019-12-09 06:49] LABS: BASO % 0.6 % (0-2.0); EOS % 1.8 % (0-4.5); HEMATOCRIT 24.5 % (35.4-49); HEMOGLOBIN 8.1 GM/dL (11.7-16.9); LYMPH % 11.4 % (8-40); MCH 26.9 pg (25.7-33.7); MCHC 32.9 g/dl (32.0-35.9); MEAN CELL VOLUME 81.7 fl (80-96); MEAN PLT VOLUME 8.3 fl (7.5-11.1); NEUT % 80.2 % (42.8-82.8); PLATELET COUNT 170 K/MM3 (134-434); RDW 18.2 % (11.9-15.9)
[2019-12-09 07:11] LABS: BILIRUBIN,TOTAL 0.7 mg/dL (0.2-1); BLOOD UREA NITROGEN 26.1 mg/dL (7-18); CALCIUM 7.8 mg/dL (8.5-10.1); CREATININE 1.4 mg/dL (0.55-1.3); PHOSPHOROUS 2.5 mg/dL (2.5-4.9); TOT PROT 5.3 g/dl (6.4-8.2)
[2019-12-09] MEDS ORDERED: PT OWN MED DRAWER 7, Y5N ONE (09:29)
--- NOTE | 2019-12-09 09:30 | PN ---
Progress Note (short form) - Note Progress Note: No acute cardiac events Vital Signs Temperature 97.7 F 12/09/19 06:00 Pulse Rate 64 12/09/19 06:00 Respiratory Rate 20 12/09/19 06:00 Blood Pressure 137/49 L 12/09/19 06:00 O2 Sat by Pulse Oximetry (%) 94 L 12/08/19 22:00 Cardiovascular: Yes: Regular Rate and Rhythm Respiratory: Yes: Diminished, On Nasal O2 Edema: No Labs: Problem List - Problems (1) CAD (coronary artery disease) Code(s): I25.10 - ATHSCL HEART DISEASE OF [place] CORONARY ARTERY W/O ANCBC, BMP 12/09/19 05:30 12/09/19 05:30 Active Medications Acetaminophen (Tylenol -) 650 mg PO Q4H PRN PRN Reason: FEVER Last Admin: 12/06/19 17:30 Dose: 650 mg Documented by: Albuterol Sulfate (Ventolin Hfa Inhaler -) 2 puff IH Q8H PRN PRN Reason: SHORTNESS OF BREATH Budesonide/Formoterol Fumarate (Symbicort 160/4.5mcg -) 1 puff IH BID [facility] Last Admin: 12/08/19 21:47 Dose: 1 puff Documented by: Carvedilol (Coreg -) 3.125 mg PO BID [facility] Last Admin: 12/08/19 21:43 Dose: 3.125 mg Documented by: Clopidogrel Bisulfate (Plavix -) 75 mg PO DAILY [facility] Last Admin: 12/08/19 09:22 Dose: 75 mg Documented by: Docusate Sodium (Colace -) 100 mg PO Q12H PRN PRN Reason: CONSTIPATION Last Admin: 12/02/19 11:33 Dose: 100 mg Documented by: Escitalopram Oxalate (Lexapro -) 20 mg PO DAILY [facility] Last Admin: 12/08/19 09:22 Dose: 20 mg Documented by: Heparin Sodium (Porcine) (Heparin -) 5,000 unit SQ TID [facility] Last Admin: 12/09/19 06:24 Dose: 5,000 unit Documented by: Ampicillin Sodium/Sulbactam (Sodium 3 gm/ Sodium Chloride) 100 mls @ 200 mls/hr IVPB Q12H [facility] Last Admin: 12/08/19 21:44 Dose: 200 mls/hr Documented by: Sodium Chloride (1/2 Normal Saline) 1,000 mls @ 75 mls/hr IV ASDIR [facility] Last Admin: 12/09/19 06:25 Dose: 75 mls/hr Documented by: Insulin Aspart (Novolog Vial Sliding Scale -) 1 vial SQ Q6HPO [facility]; Protocol Last Admin: 12/09/19 06:24 Dose: Not Given Documented by: Melatonin (Melatonin) 10 mg PO [facility] Last Admin: 12/08/19 21:44 Dose: 10 mg Documented by: Pantoprazole Sodium (Protonix Packets For Oral Suspension -) 40 mg PO DAILY [facility] Last Admin: 12/08/19 09:22 Dose: 40 mg Documented by: Rosuvastatin Calcium (Crestor -) 20 mg PO [facility] Last Admin: 12/08/19 21:43 Dose: 20 mg Documented by: Tamsulosin HCl (Flomax -) 0.4 mg PO [facility] Last Admin: 12/08/19 21:43 Dose: 0.4 mg Documented by: Qualifiers: Coronary Disease-Associated Artery/Lesion type: [place] artery [place] vs. transplanted heart: [place] heart Associated angina: without angina Qualified Code(s): I25.10 - Atherosclerotic heart disease of [place] coronary artery without angina pectoris (2) COPD (chronic obstructive pulmonary disease) Code(s): J44.9 - CHRONIC OBSTRUCTIVE PULMONARY DISEASE, UNSPECIFIED Qualifiers: COPD type: unspecified COPD Qualified Code(s): J44.9 - Chronic obstructive pulmonary disease, unspecified (3) History of percutaneous coronary intervention Code(s): Z98.890 - OTHER SPECIFIED POSTPROCEDURAL STATES (4) Hx of CABG Code(s): Z95.1 - PRESENCE OF AORTOCORONARY BYPASS GRAFT (5) ICD (implantable cardioverter-defibrillator) in place Code(s): Z95.810 - PRESENCE OF AUTOMATIC (IMPLANTABLE) CARDIAC DEFIBRILLATOR (6) Ischemic cardiomyopathy Code(s): I25.5 - ISCHEMIC CARDIOMYOPATHY (7) Recurrent falls Code(s): R29.6 - REPEATED FALLS (8) Acute on chronic renal insufficiency Code(s): N28.9 - DISORDER OF KIDNEY AND URETER, UNSPECIFIED; N18.9 - CHRONIC KIDNEY DISEASE, UNSPECIFIED (9) Orthostatic hypotension Code(s): I95.1 - ORTHOSTATIC HYPOTENSION Assessment/Plan 11/21/2019 Echo: Normal LV size with mild LVH and mild decreased LVEF 45-50%, grade I diastolic dysfunction, mild LAE, tr MR, mild-mod TR, mild DC RVSP 34 mmHg Echocardiography (10/15/18): Moderately reduced LV systolic function, LVEF 40-45%, grade 1 diastolic dysfunction, mild , mild MR, moderate TR, mild DC and pulmonary HTN. 1. POD#7 left IM nail for femoral neck hip fracture 2. Fever referable to asp PNA 3. Chronic LV systolic heart failure (ischemic cardiomyopathy EF 45-50%) 4. CAD s/p CT, CABG, PCI/stents, angina pectoris 5. Post ICD implant 6. HTN 7. Hypercholesterolemia 8. T2DM 9. Acute on CKD stage 3 resolving 10. PAD s/p fem-pop bypass and [employer] 11. COPD 12. PUD s/p Bilroth II gastrectomy 13. 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 Gout 15. Kidney stones 16. Orthostatic hypotension on Northera 17. Gait disturbance 18. Post-op anemia 19. Hypernatremia PLAN: Same cardiac: 1. Off Diovan 40 qd and Lasix 20 qd, judicious hydration and free water repletion pending renal and hypernatremia recovery, continue Plavix 75 mg QD, Coreg 3.125 mg BID and Crestor 20 mg QHS. Monitor orthostasis, has not been taking Northera 100 qd 2. DVT and GI prophylaxis and analgesia as needed 3. Monitor Hgb and transfuse as needed 4. PT as tolerated -> SNF 5. Eventual f/u with Dr. Morales in office
[2019-12-09] MEDS: PANTOPRAZOLE SOD 40 MG SUSPENSION PACKET PO SCH (10:23)
[2019-12-09] MEDS: BUDESONIDE/FORMETEROL FUMARATE 160/4.5 mcg INHALER IH SCH ×2 (10:23→21:07)
[2019-12-09] MEDS: CARVEDILOL 3.125 MG TABLET (FP) PO SCH ×2 (10:23→21:06)
[2019-12-09] MEDS: ESCITALOPRAM OXALATE 20 MG TABLET PO SCH (10:23)
[2019-12-09] MEDS: CLOPIDOGREL BISULFATE 75 MG TABLET (FP) PO SCH (10:23)
[2019-12-09] MEDS: AMPICILLIN NA/SULBACTAM NA 3 GM in SODIUM CHLORIDE 100 ML IVPB SCH (10:24)
[2019-12-09] MEDS ORDERED: ESCITALOPRAM OXALATE 10 MG TABLET PO SCH (10:24)
--- NOTE | 2019-12-09 10:42 | PN ---
Progress Note, Physician History of Present Illness: PULMONARY ALERT,C/O LOWER EXT PAIN,-SOB,MIN COUGH - Current Medication List Current Medications: Active Medications Albuterol Sulfate (Ventolin Hfa Inhaler -) 2 puff IH Q8H PRN PRN Reason: SHORTNESS OF BREATH Budesonide/Formoterol Fumarate (Symbicort 160/4.5mcg -) 1 puff IH BID [facility] Last Admin: 12/09/19 10:23 Dose: 1 puff Documented by: Carvedilol (Coreg -) 3.125 mg PO BID [facility] Last Admin: 12/09/19 10:23 Dose: 3.125 mg Documented by: Clopidogrel Bisulfate (Plavix -) 75 mg PO DAILY [facility] Last Admin: 12/09/19 10:23 Dose: 75 mg Documented by: Docusate Sodium (Colace -) 100 mg PO Q12H PRN PRN Reason: CONSTIPATION Last Admin: 12/02/19 11:33 Dose: 100 mg Documented by: Escitalopram Oxalate (Lexapro -) 10 mg PO DAILY [facility] Heparin Sodium (Porcine) (Heparin -) 5,000 unit SQ TID [facility] Last Admin: 12/09/19 06:24 Dose: 5,000 unit Documented by: Sodium Chloride (1/2 Normal Saline) 1,000 mls @ 50 mls/hr IV ASDIR [facility] Stop: 12/05/19 05:44 Insulin Aspart (Novolog Vial Sliding Scale -) 1 vial SQ Q6HPO [facility]; Protocol Last Admin: 12/09/19 06:24 Dose: Not Given Documented by: Melatonin (Melatonin) 10 mg PO [facility] Last Admin: 12/08/19 21:44 Dose: 10 mg Documented by: Pantoprazole Sodium (Protonix Packets For Oral Suspension -) 40 mg PO DAILY [facility] Last Admin: 12/09/19 10:23 Dose: 40 mg Documented by: Rosuvastatin Calcium (Crestor -) 20 mg PO [facility] Last Admin: 12/08/19 21:43 Dose: 20 mg Documented by: Tamsulosin HCl (Flomax -) 0.4 mg PO [facility] Last Admin: 12/08/19 21:43 Dose: 0.4 mg Documented by: - Objective Vital Signs: Vital Signs Temperature 97.8 F 12/09/19 09:54 Pulse Rate 68 12/09/19 09:54 Respiratory Rate 20 12/09/19 09:54 Blood Pressure 116/52 L 12/09/19 09:54 O2 Sat by Pulse Oximetry (%) 95 12/09/19 09:54 Constitutional: Yes: Well Nourished, Calm Eyes: Yes: WNL HENT: Yes: WNL Neck: Yes: WNL Cardiovascular: Yes: Regular Rate and Rhythm, S1, S2 Respiratory: Yes: Diminished Gastrointestinal: Yes: Normal Bowel Sounds, Soft Extremities: Yes: WNL Edema: No Labs: CBC, BMP 12/09/19 05:30 12/09/19 05:30 INR, PTT INR 1.08 (0.83-1.09) 12/01/19 06:40 Problem List - Problems (1) Anemia Code(s): D64.9 - ANEMIA, UNSPECIFIED Qualifiers: Anemia type: unspecified type Qualified Code(s): D64.9 - Anemia, unspecified (2) Fall Code(s): W19.XXXA - UNSPECIFIED FALL, INITIAL ENCOUNTER Qualifiers: Encounter type: initial encounter Qualified Code(s): W19.XXXA - Unspecified fall, initial encounter (3) Hip fracture, left Code(s): S72.002A - FRACTURE OF UNSP PART OF NECK OF LEFT FEMUR, INIT Qualifiers: Encounter type: initial encounter Fracture type: closed Qualified Code(s): S72.002A - Fracture of unspecified part of neck of left femur, initial encounter for closed fracture (4) Neuropathy Code(s): G62.9 - POLYNEUROPATHY, UNSPECIFIED (5) Syncope Code(s): R55 - SYNCOPE AND COLLAPSE Qualifiers: Syncope type: unspecified Qualified Code(s): R55 - Syncope and collapse (6) Pneumonia Code(s): J18.9 - PNEUMONIA, UNSPECIFIED ORGANISM Qualifiers: Pneumonia type: due to unspecified organism Laterality: unspecified laterality Lung location: unspecified part of lung Qualified Code(s): J18.9 - Pneumonia, unspecified organism (7) Achalasia Code(s): K22.0 - ACHALASIA OF CARDIA (8) BPH (benign prostatic hypertrophy) Code(s): N40.0 - BENIGN PROSTATIC HYPERPLASIA WITHOUT LOWER URINRY TRACT SYMP Qualifiers: Lower urinary tract symptom presence: presence of symptoms unspecified (9) CAD (coronary artery disease) Code(s): I25.10 - ATHSCL HEART DISEASE OF [place] CORONARY ARTERY W/O ANG PCTRS Qualifiers: Coronary Disease-Associated Artery/Lesion type: [place] artery [place] vs. transplanted heart: [place] heart Associated angina: without angina Qualified Code(s): I25.10 - Atherosclerotic heart disease of [place] coronary artery without angina pectoris (10) CKD (chronic kidney disease) stage 3, GFR 30-59 ml/min Code(s): N18.3 - CHRONIC KIDNEY DISEASE, STAGE 3 (MODERATE) (11) COPD (chronic obstructive pulmonary disease) Code(s): J44.9 - CHRONIC OBSTRUCTIVE PULMONARY DISEASE, UNSPECIFIED (12) History of percutaneous coronary intervention Code(s): Z98.890 - OTHER SPECIFIED POSTPROCEDURAL STATES (13) Hx of CABG Code(s): Z95.1 - PRESENCE OF AORTOCORONARY BYPASS GRAFT (14) Hyperlipidemia Code(s): E78.5 - HYPERLIPIDEMIA, UNSPECIFIED Qualifiers: Hyperlipidemia type: pure hypercholesterolemia Qualified Code(s): E78.00 - Pure hypercholesterolemia, unspecified; E78.0 - Pure hypercholesterolemia (15) ICD (implantable cardioverter-defibrillator) in place Code(s): Z95.810 - PRESENCE OF AUTOMATIC (IMPLANTABLE) CARDIAC DEFIBRILLATOR (16) Ischemic cardiomyopathy Code(s): I25.5 - ISCHEMIC CARDIOMYOPATHY (17) Recurrent falls Code(s): R29.6 - REPEATED FALLS (18) Hypertension Code(s): I10 - ESSENTIAL (PRIMARY) HYPERTENSION Qualifiers: Hypertension type: essential hypertension Qualified Code(s): I10 - Essential (primary) hypertension Assessment/Plan IMP RLL PNEUMONIA LIKELY ASPIRATION CHF ASHD S/P CABG,PCI COPD LEFT HIP FX S/P MECHANICAL FALL S/P INTRA-MEDULLARY NAIL ALTERED MENTAL STATUS LIKELY TOXIC METABOLIC ENCEPHALOPATHY NEUROGENIC SYNCOPE DM HLD HTN H/O PUD S/P BILLROTH II H/O ACHALASIA S/P HELLER MYOTOMY ANEMIA HYPERNATREMIA PLAN SUPPLEMENTAL O2 INHALED BRONCHODILATORS ' ABX NORMAL TRANSFUSION THRESHOLD MONITOR LYTES,RENAL FUNCTION,H+H F/U CHEST X-RAYS DR DELVALLE Problem List - Problems (1) Anemia Code(s): D64.9 - ANEMIA, UNSPECIFIED Qualifiers: Anemia type: unspecified type Qualified Code(s): D64.9 - Anemia, unspecified (2) Fall Code(s): W19.XXXA - UNSPECIFIED FALL, INITIAL ENCOUNTER Qualifiers: Encounter type: initial encounter Qualified Code(s): W19.XXXA - Unspecified fall, initial encounter (3) Hip fracture, left Code(s): S72.002A - FRACTURE OF UNSP PART OF NECK OF LEFT FEMUR, INIT Qualifiers: Encounter type: initial encounter Fracture type: closed Qualified Code(s): S72.002A - Fracture of unspecified part of neck of left femur, initial encounter for closed fracture (4) Neuropathy Code(s): G62.9 - POLYNEUROPATHY, UNSPECIFIED (5) Syncope Code(s): R55 - SYNCOPE AND COLLAPSE Qualifiers: Syncope type: unspecified Qualified Code(s): R55 - Syncope and collapse (6) Pneumonia Code(s): J18.9 - PNEUMONIA, UNSPECIFIED ORGANISM Qualifiers: Pneumonia type: due to unspecified organism Laterality: unspecified laterality Lung location: unspecified part of lung Qualified Code(s): J18.9 - Pneumonia, unspecified organism (7) Achalasia Code(s): K22.0 - ACHALASIA OF CARDIA (8) BPH (benign prostatic hypertrophy) Code(s): N40.0 - BENIGN PROSTATIC HYPERPLASIA WITHOUT LOWER URINRY TRACT SYMP Qualifiers: Lower urinary tract symptom presence: presence of symptoms unspecified (9) CAD (coronary artery disease) Code(s): I25.10 - ATHSCL HEART DISEASE OF [place] CORONARY ARTERY W/O ANG PCTRS Qualifiers: Coronary Disease-Associated Artery/Lesion type: [place] artery [place] vs. transplanted heart: [place] heart Associated angina: without angina Qualified Code(s): I25.10 - Atherosclerotic heart disease of [place] coronary artery without angina pectoris (10) CKD (chronic kidney disease) stage 3, GFR 30-59 ml/min Code(s): N18.3 - CHRONIC KIDNEY DISEASE, STAGE 3 (MODERATE) (11) COPD (chronic obstructive pulmonary disease) Code(s): J44.9 - CHRONIC OBSTRUCTIVE PULMONARY DISEASE, UNSPECIFIED (12) History of percutaneous coronary intervention Code(s): Z98.890 - OTHER SPECIFIED POSTPROCEDURAL STATES (13) Hx of CABG Code(s): Z95.1 - PRESENCE OF AORTOCORONARY BYPASS GRAFT (14) Hyperlipidemia Code(s): E78.5 - HYPERLIPIDEMIA, UNSPECIFIED Qualifiers: Hyperlipidemia type: pure hypercholesterolemia Qualified Code(s): E78.00 - Pure hypercholesterolemia, unspecified; E78.0 - Pure hypercholesterolemia (15) ICD (implantable cardioverter-defibrillator) in place Code(s): Z95.810 - PRESENCE OF AUTOMATIC (IMPLANTABLE) CARDIAC DEFIBRILLATOR (16) Ischemic cardiomyopathy Code(s): I25.5 - ISCHEMIC CARDIOMYOPATHY (17) Recurrent falls Code(s): R29.6 - REPEATED FALLS (18) Hypertension Code(s): I10 - ESSENTIAL (PRIMARY) HYPERTENSION Qualifiers: Hypertension type: essential hypertension Qualified Code(s): I10 - Essential (primary) hypertension
--- NOTE | 2019-12-09 11:22 | PN ---
Physical Exam: SUBJECTIVE: Patient seen and examined at bedside. The patient today is A&O x 3. He denies hallucinations, fever/chills, cough, shortness of breath, diarrhea, constipation, nausea, and dysuria. The patient reports some body aches and severe 10/10 pain in the joints of both legs, both the feet and the knees bilaterally. The pain in his knees and feet is worse when he moves. The patient also expresses worry about his intense pain and whether he will be able to walk and do his activities of daily living. Patient assured that we will investigate into the possible causes of his pain and help him as best as possible. OBJECTIVE: Vital Signs Period Temp Pulse Resp BP Sys/Garcia Pulse Ox Last 24 Hr 97.7 F-98.1 F 64-68 20-20 110-147/45-53 94-95 GENERAL: The patient is A&Ox3, in no acute distress but looking fatigued. HEAD: Normal with no signs of trauma. EYES: Extraocular movements intact, sclera anicteric. No ptosis. ENT: Ears normal, nares patent, oropharynx clear without exudates, dry mucous membranes. NECK: Trachea midline, full range of motion, supple. LUNGS: Decreased breath sounds bilaterally, no accessory muscle use. HEART: Regular rate and rhythm, S1, S2 without murmur, rub or gallop. ABDOMEN: Soft, nontender, nondistended, normoactive bowel sounds, no guarding, no rebound, no masses. EXTREMITIES: 2+ pulses, warm, well-perfused, no edema. Knees painful to palpation bilaterally, to the extent that the patient grimaces. Movement of legs and feet bilaterally very painful, to the extent that the patient grimaces. NEUROLOGICAL: Normal speech, gait not observed. PSYCH: Normal mood, normal affect. SKIN: Warm, dry, normal turgor, no rashes or lesions noted. Capillary refill < 3 seconds. Nails mildly pale. Laboratory Results - last 24 hr 12/05/19 12/08/19 12/08/19 12:42 16:36 21:42 WBC RBC Hgb Hct MCV MCH MCHC RDW Plt Count MPV Absolute Neuts (auto) Neutrophils % Lymphocytes % Monocytes % Eosinophils % Basophils % Nucleated RBC % Sodium Potassium Chloride Carbon Dioxide Anion Gap BUN Creatinine Est GFR (CKD-EPI)AfAm Est GFR (CKD-EPI)NonAf POC Glucometer 340 322 Random Glucose Calcium Phosphorus Magnesium Total Bilirubin AST ALT Alkaline Phosphatase Total Protein Albumin Blood Type A POSITIVE Antibody Screen Negative Crossmatch See Detail 12/09/19 12/09/19 12/09/19 05:30 05:30 06:00 WBC 7.0 RBC 3.00 L Hgb 8.1 L Hct 24.5 L MCV 81.7 MCH 26.9 MCHC 32.9 RDW 18.2 H Plt Count 170 MPV 8.3 Absolute Neuts (auto) 5.6 Neutrophils % 80.2 Lymphocytes % 11.4 Monocytes % 6.0 Eosinophils % 1.8 Basophils % 0.6 Nucleated RBC % 0 Sodium 142 Potassium 4.0 Chloride 111 H Carbon Dioxide 24 Anion Gap 7 L BUN 26.1 H Creatinine 1.4 H Est GFR (CKD-EPI)AfAm 55.77 Est GFR (CKD-EPI)NonAf 48.12 POC Glucometer 193 Random Glucose 202 H Calcium 7.8 L Phosphorus 2.5 Magnesium 2.0 Total Bilirubin 0.7 AST 77 H ALT 106 H Alkaline Phosphatase 103 Total Protein 5.3 L Albumin 2.0 L Blood Type Antibody Screen Crossmatch Active Medications Generic Name Dose Route Start Last Admin Trade Name Freq PRN Reason Stop Dose Admin Albuterol Sulfate 2 puff 12/01/19 16:30 Ventolin Hfa Inhaler - IH Q8H PRN SHORTNESS OF BREATH Budesonide/Formoterol Fumarate 1 puff 12/01/19 22:00 12/09/19 10:23 Symbicort 160/4.5mcg - IH 1 puff BID [facility] Administration Carvedilol 3.125 mg 12/01/19 22:00 12/09/19 10:23 Coreg - PO 3.125 mg BID [facility] Administration Clopidogrel Bisulfate 75 mg 12/02/19 14:00 12/09/19 10:23 Plavix - PO 75 mg DAILY [facility] Administration Docusate Sodium 100 mg 12/01/19 16:30 12/02/19 11:33 Colace - PO 100 mg Q12H PRN Administration CONSTIPATION Escitalopram Oxalate 10 mg 12/09/19 10:24 Lexapro - PO DAILY [facility] Heparin Sodium (Porcine) 5,000 unit 12/02/19 22:00 12/09/19 06:24 Heparin - SQ 5,000 unit TID [facility] Administration Sodium Chloride 1,000 mls @ 50 mls/hr 12/04/19 09:45 1/2 Normal Saline IV 12/05/19 05:44 ASDIR [facility] Insulin Aspart 1 vial 12/05/19 06:00 12/09/19 06:24 Novolog Vial Sliding Scale - SQ Not Given Q6HPO [facility] Protocol Melatonin 10 mg 12/01/19 22:00 12/08/19 21:44 Melatonin PO 10 mg HS [facility] Administration Pantoprazole Sodium 40 mg 12/04/19 10:00 12/09/19 10:23 Protonix Packets For Oral Suspension - PO 40 mg DAILY [facility] Administration Rosuvastatin Calcium 20 mg 12/01/19 22:00 12/08/19 21:43 Crestor - PO 20 mg HS [facility] Administration Tamsulosin HCl 0.4 mg 12/01/19 22:00 12/08/19 21:43 Flomax - PO 0.4 mg HS [facility] Administration ASSESSMENT/PLAN: 79 year old male patient with past medical history that includes Systolic heart failure, CAD s/p PCI, CKD, s/p medtronic ICD, DM, PVD s/p partial gastrectomy, achalasia, penile implant, CABG, HTN, and HLD, who presented to the ED after a fall. 1. Femoral Neck Fracture s/p Intramedullary Nail Surgery - POD 8 - Monitoring for any acute changes 2. Severe pain in feet and knees bilaterally - Pain medications - Physical Therapy 3. APRYL - Creatinine is trending down from a high of 2.4 to 1.4 today (which is no longer within normal limits) - Monitoring the Creatinine - IV fluids 4. Elevated LFTs - AST 77 (High) - ALT 106 (High) - Alk Phos 103 (WNL) - Total Bilirubin 0.7 (WNL) - Monitoring LFTs 5. Acute Metabolic Encephalopathy secondary to Low Hemoglobin - resolved - Hgb at to 8.1 today - Monitoring Hgb - Monitoring Electrolytes - Patient is A&Ox3 today with no hallucinations 6. Possible Aspiration PNA - resolved - CXR showed a left infiltrate - Fever of 102.8 on 12/02 - Ampicillin/Sulbactam completed 7. Systolic CHF - No crackles on exam 8. Dehydration - Sodium 142 (within normal limits) - Chloride 111 - The patient is receiving 1/2NS at 75 mls/hr - Patient is now A&Ox3 with no hallucinations - Monitoring electrolytes 9. Achalasia - The patient has the Dysphagia Puree Diet 10. DM - Novolog sliding scale 11. HTN - Coreg 12. HLD - Rosuvastatin # FEN - 1/2NS @ 75 mls/hr, Monitoring Electrolytes, Dysphagia Puree Diet DVT PPx - Heparin SQ and Plavix GI PPx - Protonix Visit type - Emergency Visit Emergency Visit: Yes ED Registration Date: 11/30/19 Care time: The patient presented to the Emergency Department on the above date and was hospitalized for further evaluation of their emergent condition. - New Patient This patient is new to me today: No - Critical Care Critical Care patient: No - Discharge Referral Referred to [facility] Med P.C[facility] No - Medication Review Med list reviewed for High Risk Meds patients 65 and older: Yes ATTENDING PHYSICIAN STATEMENT I saw and evaluated the patient. I reviewed the resident's note and discussed the case with the resident. I agree with the resident's findings and plan as documented. SUBJECTIVE: OBJECTIVE: ASSESSMENT AND PLAN:
--- NOTE | 2019-12-09 12:37 | PN ---
Progress Note, POWER BARKER OPERATOR - Note Progress Note: 79 yo Patient seen at bedside during lunch by POWER BARKER OPERATOR as a follow up to MBS evaluat ion with recommendations for soft solids with nectar thicken liquids as tolerated. Chart review and cupola charger insulation report pt is consuming better than 50% of meals when he is following compensatory strategies Currently pt diet order has not changed as he is still receiving pureed solids with thicken liquids. Recommendations: Soft soft solid diet with nectar thicken liquids as tolerated. Observe standard aspiration precautions. Verbal prompts and / or reminders to completed compensatory strategy for slow rate, thorough chewing and alternate liquids for every 2-3 bites of solids. Provide oral care before and after meal meals. Results given verbally to cupola charger insulation and PCP via chart. POWER BARKER OPERATOR to follow up for diet tolerance.
--- NOTE | 2019-12-09 18:16 | PN ---
Teaching Attending Note Name of Resident: Nate Valentino ATTENDING PHYSICIAN STATEMENT I saw and evaluated the patient. I reviewed the resident's note and discussed the case with the resident. I agree with the resident's findings and plan as documented. SUBJECTIVE: Patient is feeling better with no acute distress. no fever or chills, Patient is back to his baseline. OBJECTIVE: Vital Signs Temperature 97.7 F 12/09/19 18:12 Pulse Rate 72 12/09/19 18:12 Respiratory Rate 20 12/09/19 18:12 Blood Pressure 145/72 12/09/19 18:12 O2 Sat by Pulse Oximetry (%) 95 12/09/19 09:54 PE: per resident's note CBCD WBC 7.0 K/mm3 (4.0-10.0) 12/09/19 05:30 RBC 3.00 M/mm3 (4.00-5.60) L 12/09/19 05:30 Hgb 8.1 GM/dL (11.7-16.9) L 12/09/19 05:30 Hct 24.5 % (35.4-49) L 12/09/19 05:30 MCV 81.7 fl (80-96) 12/09/19 05:30 MCHC 32.9 g/dl (32.0-35.9) 12/09/19 05:30 RDW 18.2 % (11.9-15.9) H 12/09/19 05:30 Plt Count 170 K/MM3 (134-434) 12/09/19 05:30 MPV 8.3 fl (7.5-11.1) 12/09/19 05:30 CMP Sodium 142 mmol/L (136-145) 12/09/19 05:30 Potassium 4.0 mmol/L (3.5-5.1) 12/09/19 05:30 Chloride 111 mmol/L (98-107) H 12/09/19 05:30 Carbon Dioxide 24 mmol/L (21-32) 12/09/19 05:30 Anion Gap 7 MMOL/L (8-16) L 12/09/19 05:30 BUN 26.1 mg/dL (7-18) H 12/09/19 05:30 Creatinine 1.4 mg/dL (0.55-1.3) H 12/09/19 05:30 Random Glucose 202 mg/dL (74-106) H 12/09/19 05:30 Calcium 7.8 mg/dL (8.5-10.1) L 12/09/19 05:30 Total Bilirubin 0.7 mg/dL (0.2-1) 12/09/19 05:30 AST 77 U/L (15-37) H 12/09/19 05:30 ALT 106 U/L (13-61) H 12/09/19 05:30 Alkaline Phosphatase 103 U/L (45-117) 12/09/19 05:30 Total Protein 5.3 g/dl (6.4-8.2) L 12/09/19 05:30 Albumin 2.0 g/dl (3.4-5.0) L 12/09/19 05:30 CARDIAC ENZYMES Creatine Kinase 33 U/L (26-308) 11/30/19 08:35 Troponin I < 0.02 ng/ml (0.00-0.05) 11/30/19 08:35 Current Medications Generic Name Dose Route Start Last Admin Trade Name Freq PRN Reason Stop Dose Admin Albuterol Sulfate 2 puff 12/01/19 16:30 Ventolin Hfa Inhaler - IH Q8H PRN SHORTNESS OF BREATH Budesonide/Formoterol Fumarate 1 puff 12/01/19 22:00 12/09/19 10:23 Symbicort 160/4.5mcg - IH 1 puff BID [facility] Administration Carvedilol 3.125 mg 12/01/19 22:00 12/09/19 10:23 Coreg - PO 3.125 mg BID [facility] Administration Clopidogrel Bisulfate 75 mg 12/02/19 14:00 12/09/19 10:23 Plavix - PO 75 mg DAILY [facility] Administration Docusate Sodium 100 mg 12/01/19 16:30 12/02/19 11:33 Colace - PO 100 mg Q12H PRN Administration CONSTIPATION Escitalopram Oxalate 10 mg 12/09/19 10:24 Lexapro - PO DAILY [facility] Heparin Sodium (Porcine) 5,000 unit 12/02/19 22:00 12/09/19 13:25 Heparin - SQ 5,000 unit TID [facility] Administration Insulin Aspart 1 vial 12/05/19 06:00 12/09/19 11:25 Novolog Vial Sliding Scale - SQ 6 units Q6HPO [facility] Administration Protocol Melatonin 10 mg 12/01/19 22:00 12/08/19 21:44 Melatonin PO 10 mg HS [facility] Administration Pantoprazole Sodium 40 mg 12/04/19 10:00 12/09/19 10:23 Protonix Packets For Oral Suspension - PO 40 mg DAILY [facility] Administration Rosuvastatin Calcium 20 mg 12/01/19 22:00 12/08/19 21:43 Crestor - PO 20 mg HS [facility] Administration Tamsulosin HCl 0.4 mg 12/01/19 22:00 12/08/19 21:43 Flomax - PO 0.4 mg HS [facility] Administration Home Medications Medication Instructions Recorded Carvedilol 3.125 mg PO BID 12/08/18 Escitalopram Oxalate [Lexapro -] 20 mg PO DAILY 12/08/18 Rosuvastatin Calcium [Crestor] 20 mg PO HS 12/08/18 Tamsulosin HCl 0.4 mg PO DAILY 01/11/19 Clopidogrel Bisulfate [Clopidogrel] 75 mg PO DAILY 04/07/19 Melatonin 10 mg PO HS 04/07/19 Sacubitril/Valsartan [Entresto 24 1 each PO BID 04/07/19 mg-26 mg Tablet] Albuterol Sulfate [Proair 2 puff NEB TID PRN 05/31/19 Digihaler] Bimatoprost [Lumigan] 1 drop DAILY 05/31/19 Furosemide 20 mg PO DAILY 05/31/19 Albuterol 0.083% Nebulizer Fatuma 1 neb NEB QID 11/30/19 [Ventolin 0.083%] Budesonide/Formeterol Fumarate 1 inh PO BID 11/30/19 [SYMBICORT 160/4.5mcg -] Insulin Glargine,Hum.rec.anlog 58 units SQ HS 12/01/19 [Lantus Solostar PEN -] Microbiology 12/03/19 21:00 Blood - Peripheral Venous Blood Culture - Final NO GROWTH AFTER 5 DAYS INCUBATION 12/03/19 21:00 Blood - Peripheral Venous Blood Culture - Final NO GROWTH AFTER 5 DAYS INCUBATION 12/04/19 11:00 Urine - Urine - Catheterized Urine Culture - Final Yeast Like Organism ASSESSMENT AND PLAN: This patient is a 79yom with PMhx of systolic heart failure , CAD, s/p PCI ,CKD, s/p medtronic ICD, DM, PUD s/p partial gastrectomy, Achalasia , CABG, HTN, HLP,penile implant ,and copd ( 2 L of O2 ) , who presented after a fall and was found to have L sided femoral neck Fx #Possible aspiration pneumonia : will dc IV antibiotics , patient received it for total of 6 day, on dysphagia diet # Acute transaminitis: will contineue to trend, will dc Unasyn for now. # L Fem neck Fx, s/p intramedullary nail # s/p FAll.: syncope vs orthostatic hypotension /dehydration # APRYL on CKD: due to prerenal azotemia form hypotension, can't r/o ATN , diovan on hold due to APRYL # Hypernatremia /dehydration : on 1/2 ns IVF , improving sodium is 149--> 145-->142 today # Acute delirium: improved # H/o DM , CAD, HLP: hold levemir. cont SSI q 6h. # h/o systolic heart failure L: gentle hydration # H/o HTN #Hx of COPD on home o2 2l DVT xp; heparin continue PT will need rehab at dc
[2019-12-09] MEDS: MELATONIN 5 MG TABLETS PO SCH (21:05)
[2019-12-09] MEDS: ROSUVASTATIN CA 20 MG TABLET (FP) PO SCH (21:06)
[2019-12-09] MEDS: TAMSULOSIN HCL 0.4 MG CAP PO SCH (21:06)
[2019-12-10] MEDS: INSULIN SLIDING SCALE (NOVOLOG) 1 VIAL SQ SCH ×5 (00:10→23:08)
[2019-12-10] MEDS ORDERED: ACETAMINOPHEN 1000 MG/100 ML VIAL (NON FORMULARY) IVPB ONE (00:39)
[2019-12-10] MEDS: HEPARIN NA (PORCINE) 5,000 UNITS/ML 1ML VIAL SQ SCH ×3 (05:24→21:28)
[2019-12-10 08:21] LABS: BASO % 0.5 % (0-2.0); EOS % 1.3 % (0-4.5); HEMATOCRIT 23.7 % (35.4-49); LYMPH % 12.8 % (8-40); MCH 27.8 pg (25.7-33.7); MCHC 33.6 g/dl (32.0-35.9); MEAN CELL VOLUME 82.7 fl (80-96); MEAN PLT VOLUME 8.7 fl (7.5-11.1); MONO % 5.6 % (3.8-10.2); NEUT % 79.8 % (42.8-82.8); PLATELET COUNT 154 K/MM3 (134-434); RBC 2.87 M/mm3 (4.00-5.60); RDW 17.5 % (11.9-15.9)
[2019-12-10 08:52] LABS: POTASSIUM 4.1 mmol/L (3.5-5.1)
[2019-12-10 08:59] LABS: BILIRUBIN,TOTAL 1.1 mg/dL (0.2-1); BLOOD UREA NITROGEN 23.1 mg/dL (7-18); CALCIUM 7.7 mg/dL (8.5-10.1); CREATININE 1.4 mg/dL (0.55-1.3); PHOSPHOROUS 2.1 mg/dL (2.5-4.9); TOT PROT 5.3 g/dl (6.4-8.2)
[2019-12-10] MEDS: PANTOPRAZOLE SOD 40 MG SUSPENSION PACKET PO SCH (09:07)
[2019-12-10] MEDS: CARVEDILOL 3.125 MG TABLET (FP) PO SCH ×2 (09:07→21:28)
[2019-12-10] MEDS: BUDESONIDE/FORMETEROL FUMARATE 160/4.5 mcg INHALER IH SCH ×2 (09:07→21:29)
[2019-12-10] MEDS: CLOPIDOGREL BISULFATE 75 MG TABLET (FP) PO SCH (09:07)
[2019-12-10 10:26] LABS: ANISOCYTOSIS 1+; MACROCYTOSIS 0; PLATELET ESTIMATE NORMAL
--- NOTE | 2019-12-10 14:27 | PN ---
Progress Note (short form) - Note Progress Note: Please is lying in bed comfortably, NAD. Vital Signs Temperature 98.4 F 12/10/19 10:00 Pulse Rate 72 12/10/19 10:00 Respiratory Rate 22 H 12/10/19 10:00 Blood Pressure 144/54 L 12/10/19 10:00 O2 Sat by Pulse Oximetry (%) 93 L 12/10/19 10:00 GENERAL: The patient is awake, alert, and oriented x2, in no acute distress. HEAD: Normal with no signs of trauma. EYES: PERRL, extraocular movements intact, sclera anicteric, conjunctiva clear. ENT: Ears normal, oropharynx clear without exudates, moist mucous membranes. NECK: Trachea midline, full range of motion, supple. LUNGS: Breath sounds equal, decreased BS BL, no wheezes, no crackles, no accessory muscle use. HEART: Regular rate and rhythm, S1, S2+, PABLO 3/6 , no rub or gallop. ABDOMEN: Soft, NT,ND, normoactive bowel sounds, no guarding, no rebound, no hepatosplenomegaly, no masses. EXTREMITIES: 2+ pulses, warm, well-perfused, no edema. NEUROLOGICAL: Cranial nerves II through XII grossly intact. Normal speech, gait not observed. PSYCH: Normal mood, normal affect. SKIN: Warm, dry, normal turgor. CBCD WBC 7.0 K/mm3 (4.0-10.0) 12/10/19 05:57 RBC 2.87 M/mm3 (4.00-5.60) L 12/10/19 05:57 Hgb 8.0 GM/dL (11.7-16.9) L 12/10/19 05:57 Hct 23.7 % (35.4-49) L 12/10/19 05:57 MCV 82.7 fl (80-96) 12/10/19 05:57 MCHC 33.6 g/dl (32.0-35.9) 12/10/19 05:57 RDW 17.5 % (11.9-15.9) H 12/10/19 05:57 Plt Count 154 K/MM3 (134-434) 12/10/19 05:57 MPV 8.7 fl (7.5-11.1) 12/10/19 05:57 CMP Sodium 139 mmol/L (136-145) 12/10/19 05:57 Potassium 4.1 mmol/L (3.5-5.1) 12/10/19 05:57 Chloride 109 mmol/L (98-107) H 12/10/19 05:57 Carbon Dioxide 25 mmol/L (21-32) 12/10/19 05:57 Anion Gap 5 MMOL/L (8-16) L 12/10/19 05:57 BUN 23.1 mg/dL (7-18) H 12/10/19 05:57 Creatinine 1.4 mg/dL (0.55-1.3) H 12/10/19 05:57 Random Glucose 225 mg/dL (74-106) H 12/10/19 05:57 Calcium 7.7 mg/dL (8.5-10.1) L 12/10/19 05:57 Total Bilirubin 1.1 mg/dL (0.2-1) H 12/10/19 05:57 AST 69 U/L (15-37) H 12/10/19 05:57 ALT 108 U/L (13-61) H 12/10/19 05:57 Alkaline Phosphatase 130 U/L (45-117) H 12/10/19 05:57 Total Protein 5.3 g/dl (6.4-8.2) L 12/10/19 05:57 Albumin 2.0 g/dl (3.4-5.0) L 12/10/19 05:57 CARDIAC ENZYMES Creatine Kinase 33 U/L (26-308) 11/30/19 08:35 Troponin I < 0.02 ng/ml (0.00-0.05) 11/30/19 08:35 Current Medications Generic Name Dose Route Start Last Admin Trade Name Freq PRN Reason Stop Dose Admin Albuterol Sulfate 2 puff 12/01/19 16:30 Ventolin Hfa Inhaler - IH Q8H PRN SHORTNESS OF BREATH Budesonide/Formoterol Fumarate 1 puff 12/01/19 22:00 12/10/19 09:07 Symbicort 160/4.5mcg - IH 1 puff BID KADEEM Administration Carvedilol 3.125 mg 12/01/19 22:00 12/10/19 09:07 Coreg - PO 3.125 mg BID KADEEM Administration Clopidogrel Bisulfate 75 mg 12/02/19 14:00 12/10/19 09:07 Plavix - PO 75 mg DAILY KADEEM Administration Docusate Sodium 100 mg 12/01/19 16:30 12/02/19 11:33 Colace - PO 100 mg Q12H PRN Administration CONSTIPATION Escitalopram Oxalate 10 mg 12/09/19 10:24 12/10/19 09:07 Lexapro - PO 10 mg DAILY K[facility]EM Administration Heparin Sodium (Porcine) 5,000 unit 12/02/19 22:00 12/10/19 14:03 Heparin - SQ 5,000 unit TID KADEEM Administration Insulin Aspart 1 vial 12/05/19 06:00 12/10/19 12:11 Novolog Vial Sliding Scale - SQ 2 units Q6HPO KADEEM Administration Protocol Melatonin 10 mg 12/01/19 22:00 12/09/19 21:05 Melatonin PO 10 mg HS KADEEM Administration Pantoprazole Sodium 40 mg 12/04/19 10:00 12/10/19 09:07 Protonix Packets For Oral Suspension - PO 40 mg DAILY K[facility] Administration Rosuvastatin Calcium 20 mg 12/01/19 22:00 12/09/19 21:06 Crestor - PO 20 mg HS KADEEM Administration Tamsulosin HCl 0.4 mg 12/01/19 22:00 12/09/19 21:06 Flomax - PO 0.4 mg HS KADEEM Administration Home Medications Medication Instructions Recorded Carvedilol 3.125 mg PO BID 12/08/18 Escitalopram Oxalate [Lexapro -] 20 mg PO DAILY 12/08/18 Rosuvastatin Calcium [Crestor] 20 mg PO HS 12/08/18 Tamsulosin HCl 0.4 mg PO DAILY 01/11/19 Clopidogrel Bisulfate [Clopidogrel] 75 mg PO DAILY 04/07/19 Melatonin 10 mg PO HS 04/07/19 Sacubitril/Valsartan [Entresto 24 1 each PO BID 04/07/19 mg-26 mg Tablet] Albuterol Sulfate [Proair 2 puff NEB TID PRN 05/31/19 Digihaler] Bimatoprost [Lumigan] 1 drop DAILY 05/31/19 Furosemide 20 mg PO DAILY 05/31/19 Albuterol 0.083% Nebulizer Fatuma 1 neb NEB QID 11/30/19 [Ventolin 0.083%] Budesonide/Formeterol Fumarate 1 inh PO BID 11/30/19 [SYMBICORT 160/4.5mcg -] Insulin Glargine,Hum.rec.anlog 58 units SQ HS 12/01/19 [Lantus Solostar PEN -] Microbiology 12/03/19 21:00 Blood - Peripheral Venous Blood Culture - Final NO GROWTH AFTER 5 DAYS INCUBATION 12/03/19 21:00 Blood - Peripheral Venous Blood Culture - Final NO GROWTH AFTER 5 DAYS INCUBATION 12/04/19 11:00 Urine - Urine - Catheterized Urine Culture - Final Yeast Like Organism Assessment and Plan: This patient is a 79yom with PMhx of systolic heart failure , CAD, s/p PCI ,CKD, s/p medtronic ICD, DM, PUD s/p partial gastrectomy, Achalasia , CABG, HTN, HLP,penile implant ,and copd ( 2 L of O2 ) , who presented after a fall and was found to have L sided femoral neck Fx #Possible aspiration pneumonia : will dc IV antibiotics , patient received it for total of 6 day, on dysphagia diet # Acute transaminitis: will contineue to trend, will dc Unasyn for now and reduce the dose of crestor 10mg and lexapro to 5mg . #POD#9 s/p L Fem neck Fx, s/p intramedullary nail , need rehab # s/p FAll.: syncope vs orthostatic hypotension /dehydration # APRYL on CKD: back to baseline , diovan on hold due to APRYL # Hypernatremia /dehydration : on 1/2 ns IVF , improving sodium is 149--> 145-->142-->139 today # Acute delirium: improved # H/o DM , CAD, HLP: hold levemir. cont SSI q 6h. #Hx systolic heart failure L: gentle hydration # H/o HTN #Hx of COPD on home o2 2l DVT xp; heparin continue PT possible rehab tomorrow Visit type - Emergency Visit Emergency Visit: Yes ED Registration Date: 11/30/19 Care time: The patient presented to the Emergency Department on the above date and was hospitalized for further evaluation of their emergent condition. - New Patient This patient is new to me today: No - Critical Care Critical Care patient: No - Discharge Referral Referred to [facility] Med P.C[facility] No - Medication Review Med list reviewed for High Risk Meds patients 65 and older: Yes
--- NOTE | 2019-12-10 15:54 | PN ---
Progress Note, Physician - Current Medication List Current Medications: Active Medications Albuterol Sulfate (Ventolin Hfa Inhaler -) 2 puff IH Q8H PRN PRN Reason: SHORTNESS OF BREATH Budesonide/Formoterol Fumarate (Symbicort 160/4.5mcg -) 1 puff IH BID [facility] Last Admin: 12/10/19 09:07 Dose: 1 puff Documented by: Carvedilol (Coreg -) 3.125 mg PO BID [facility] Last Admin: 12/10/19 09:07 Dose: 3.125 mg Documented by: Clopidogrel Bisulfate (Plavix -) 75 mg PO DAILY [facility] Last Admin: 12/10/19 09:07 Dose: 75 mg Documented by: Docusate Sodium (Colace -) 100 mg PO Q12H PRN PRN Reason: CONSTIPATION Last Admin: 12/02/19 11:33 Dose: 100 mg Documented by: Escitalopram Oxalate (Lexapro -) 5 mg PO DAILY [facility] Heparin Sodium (Porcine) (Heparin -) 5,000 unit SQ TID [facility] Last Admin: 12/10/19 14:03 Dose: 5,000 unit Documented by: Insulin Aspart (Novolog Vial Sliding Scale -) 1 vial SQ Q6HPO [facility]; Protocol Last Admin: 12/10/19 12:11 Dose: 2 units Documented by: Melatonin (Melatonin) [address] [facility] Last Admin: 12/09/19 21:05 Dose: 10 mg Documented by: Pantoprazole Sodium (Protonix Packets For Oral Suspension -) 40 mg PO DAILY [facility] Last Admin: 12/10/19 09:07 Dose: 40 mg Documented by: Rosuvastatin Calcium (Crestor -) [address] [facility] Tamsulosin HCl (Flomax -) 0.[address] [facility] Last Admin: 12/09/19 21:06 Dose: 0.4 mg Documented by: - Objective Vital Signs: Vital Signs Temperature 98.2 F 12/10/19 14:00 Pulse Rate 68 12/10/19 14:00 Respiratory Rate 22 H 12/10/19 10:00 Blood Pressure 151/56 L 12/10/19 14:00 O2 Sat by Pulse Oximetry (%) 93 L 12/10/19 10:00 Eyes: Yes: WNL, Conjunctiva Clear, EOM Intact HENT: Yes: WNL, Atraumatic, Normocephalic Neck: Yes: WNL, Supple, Trachea Midline Cardiovascular: Yes: WNL, Regular Rate and Rhythm Respiratory: Yes: WNL, Regular, CTA Bilaterally Gastrointestinal: Yes: WNL, Normal Bowel Sounds Genitourinary: Yes: WNL Musculoskeletal: Yes: WNL Extremities: Yes: WNL Edema: No Integumentary: Yes: WNL Neurological: Yes: WNL, Alert, Oriented ...Motor Strength: WNL Psychiatric: Yes: WNL Labs: CBC, BMP 12/10/19 05:57 12/10/19 05:57 INR, PTT INR 1.08 (0.83-1.09) 12/01/19 06:40 Assessment/Plan Qualifiers: Coronary Disease-Associated Artery/Lesion type: [place] artery [place] vs. transplanted heart: [place] heart Associated angina: without angina Qualified Code(s): I25.10 - Atherosclerotic heart disease of [place] coronary artery without angina pectoris (2) COPD (chronic obstructive pulmonary disease) Code(s): J44.9 - CHRONIC OBSTRUCTIVE PULMONARY DISEASE, UNSPECIFIED Qualifiers: COPD type: unspecified COPD Qualified Code(s): J44.9 - Chronic obstructive pulmonary disease, unspecified (3) History of percutaneous coronary intervention Code(s): Z98.890 - OTHER SPECIFIED POSTPROCEDURAL STATES (4) Hx of CABG Code(s): Z95.1 - PRESENCE OF AORTOCORONARY BYPASS GRAFT (5) ICD (implantable cardioverter-defibrillator) in place Code(s): Z95.810 - PRESENCE OF AUTOMATIC (IMPLANTABLE) CARDIAC DEFIBRILLATOR (6) Ischemic cardiomyopathy Code(s): I25.5 - ISCHEMIC CARDIOMYOPATHY (7) Recurrent falls Code(s): R29.6 - REPEATED FALLS (8) Acute on chronic renal insufficiency Code(s): N28.9 - DISORDER OF KIDNEY AND URETER, UNSPECIFIED; N18.9 - CHRONIC KIDNEY DISEASE, UNSPECIFIED (9) Orthostatic hypotension Code(s): I95.1 - ORTHOSTATIC HYPOTENSION Assessment/Plan 11/21/2019 Echo: Normal LV size with mild LVH and mild decreased LVEF 45-50%, grade I diastolic dysfunction, mild LAE, tr MR, mild-mod TR, mild [place] RVSP 34 mmHg Echocardiography (10/15/18): Moderately reduced LV systolic function, LVEF 40-45%, grade 1 diastolic dysfunction, mild , mild MR, moderate TR, mild [place] and pulmonary HTN. 1. POD#8 left IM nail for femoral neck hip fracture 2. Fever referable to asp PNA 3. Chronic LV systolic heart failure (ischemic cardiomyopathy EF 45-50%) 4. CAD s/p [place], CABG, PCI/stents, angina pectoris 5. Post ICD implant 6. HTN 7. Hypercholesterolemia 8. T2DM 9. Acute on CKD stage 3 resolving 10. PAD s/p fem-pop bypass and [employer] 11. COPD 12. PUD s/p Bilroth II gastrectomy 13. 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 Gout 15. Kidney stones 16. Orthostatic hypotension on Northera 17. Gait disturbance 18. Post-op anemia 19. Hypernatremia PLAN: Same cardiac: 1. Off Diovan 40 qd and Lasix 20 qd, judicious hydration and free water repletion pending renal and hypernatremia recovery, continue Plavix 75 mg QD, Coreg 3.125 mg BID and Crestor 20 mg QHS. Monitor orthostasis, has not been taking Northera 100 qd 2. DVT and GI prophylaxis and analgesia as needed 3. Monitor Hgb and transfuse as needed 4. PT as tolerated -> SNF 5. Eventual f/u with Dr. Morales in office Coverage dr. Morales
[2019-12-10] MEDS: ROSUVASTATIN CA 10 MG TABLET (FP) PO SCH (21:28)
[2019-12-10] MEDS: TAMSULOSIN HCL 0.4 MG CAP PO SCH (21:28)
[2019-12-10] MEDS: MELATONIN 5 MG TABLETS PO SCH (21:28)
[2019-12-11] MEDS: HEPARIN NA (PORCINE) 5,000 UNITS/ML 1ML VIAL SQ SCH ×3 (05:25→23:15)
[2019-12-11] MEDS: INSULIN SLIDING SCALE (NOVOLOG) 1 VIAL SQ SCH ×4 (05:32→23:15)
[2019-12-11 07:51] LABS: BASO % 0.3 % (0-2.0); EOS % 0.5 % (0-4.5); HEMOGLOBIN 8.1 GM/dL (11.7-16.9); LYMPH % 8.9 % (8-40); MCH 26.5 pg (25.7-33.7); MCHC 32.4 g/dl (32.0-35.9); MEAN CELL VOLUME 81.7 fl (80-96); MEAN PLT VOLUME 8.5 fl (7.5-11.1); MONO % 5.7 % (3.8-10.2); NEUT % 84.6 % (42.8-82.8); PLATELET COUNT 149 K/MM3 (134-434); RBC 3.06 M/mm3 (4.00-5.60); RDW 18.3 % (11.9-15.9); WHITE BLOOD COUNT 8.1 K/mm3 (4.0-10.0)
[2019-12-11 07:52] LABS: ALBUMIN 2.1 g/dl (3.4-5.0); BLOOD UREA NITROGEN 19.6 mg/dL (7-18); CREATININE 1.2 mg/dL (0.55-1.3); PHOSPHOROUS 2.1 mg/dL (2.5-4.9); TOT PROT 5.5 g/dl (6.4-8.2)
[2019-12-11] MEDS: CARVEDILOL 3.125 MG TABLET (FP) PO SCH ×2 (09:13→23:15)
[2019-12-11] MEDS: BUDESONIDE/FORMETEROL FUMARATE 160/4.5 mcg INHALER IH SCH ×2 (09:13→23:15)
[2019-12-11] MEDS: CLOPIDOGREL BISULFATE 75 MG TABLET (FP) PO SCH (09:13)
[2019-12-11] MEDS: ESCITALOPRAM OXALATE 10 MG TABLET PO SCH (09:13)
[2019-12-11] MEDS: PANTOPRAZOLE SOD 40 MG SUSPENSION PACKET PO SCH (09:13)
[2019-12-11 09:17] LABS: ANISOCYTOSIS 2+; MACROCYTOSIS 0; PLATELET ESTIMATE DECREASED; TEAR DROP CELLS 1+
--- NOTE | 2019-12-11 10:19 | PN ---
Teaching Attending Note Name of Resident: Jan Sanchez ATTENDING PHYSICIAN STATEMENT I saw and evaluated the patient. I reviewed the resident's note and discussed the case with the resident. I agree with the resident's findings and plan as documented. SUBJECTIVE: Patient is comfortable except c/o having mild abdominal pain . OBJECTIVE: Vital Signs Temperature 98.8 F 12/11/19 05:17 Pulse Rate 71 12/11/19 05:17 Respiratory Rate 20 12/11/19 05:17 Blood Pressure 143/63 12/11/19 05:17 O2 Sat by Pulse Oximetry (%) 96 12/11/19 05:17 PE: per resident's note CBCD WBC 8.1 K/mm3 (4.0-10.0) 12/11/19 05:56 RBC 3.06 M/mm3 (4.00-5.60) L 12/11/19 05:56 Hgb 8.1 GM/dL (11.7-16.9) L 12/11/19 05:56 Hct 25.0 % (35.4-49) L 12/11/19 05:56 MCV 81.7 fl (80-96) 12/11/19 05:56 MCHC 32.4 g/dl (32.0-35.9) 12/11/19 05:56 RDW 18.3 % (11.9-15.9) H 12/11/19 05:56 Plt Count 149 K/MM3 (134-434) 12/11/19 05:56 MPV 8.5 fl (7.5-11.1) 12/11/19 05:56 CMP Sodium 137 mmol/L (136-145) 12/11/19 05:56 Potassium 4.0 mmol/L (3.5-5.1) 12/11/19 05:56 Chloride 109 mmol/L (98-107) H 12/11/19 05:56 Carbon Dioxide 23 mmol/L (21-32) 12/11/19 05:56 Anion Gap 6 MMOL/L (8-16) L 12/11/19 05:56 BUN 19.6 mg/dL (7-18) H 12/11/19 05:56 Creatinine 1.2 mg/dL (0.55-1.3) 12/11/19 05:56 Random Glucose 201 mg/dL (74-106) H 12/11/19 05:56 Calcium 8.0 mg/dL (8.5-10.1) L 12/11/19 05:56 Total Bilirubin 1.0 mg/dL (0.2-1) 12/11/19 05:56 AST 74 U/L (15-37) H 12/11/19 05:56 ALT 105 U/L (13-61) H 12/11/19 05:56 Alkaline Phosphatase 149 U/L (45-117) H 12/11/19 05:56 Total Protein 5.5 g/dl (6.4-8.2) L 12/11/19 05:56 Albumin 2.1 g/dl (3.4-5.0) L 12/11/19 05:56 CARDIAC ENZYMES Creatine Kinase 33 U/L (26-308) 11/30/19 08:35 Troponin I < 0.02 ng/ml (0.00-0.05) 11/30/19 08:35 Current Medications Generic Name Dose Route Start Last Admin Trade Name Freq PRN Reason Stop Dose Admin Albuterol Sulfate 2 puff 12/01/19 16:30 Ventolin Hfa Inhaler - IH Q8H PRN SHORTNESS OF BREATH Budesonide/Formoterol Fumarate 1 puff 12/01/19 22:00 12/11/19 09:13 Symbicort 160/4.5mcg - IH 1 puff BID KADEEM Administration Carvedilol 3.125 mg 12/01/19 22:00 12/11/19 09:13 Coreg - PO 3.125 mg BID KADEEM Administration Clopidogrel Bisulfate 75 mg 12/02/19 14:00 12/11/19 09:13 Plavix - PO 75 mg DAILY KADEEM Administration Docusate Sodium 100 mg 12/01/19 16:30 12/02/19 11:33 Colace - PO 100 mg Q12H PRN Administration CONSTIPATION Escitalopram Oxalate 5 mg 12/10/19 14:29 12/11/19 09:13 Lexapro - PO 5 mg DAILY KADEEM Administration Heparin Sodium (Porcine) 5,000 unit 12/02/19 22:00 12/11/19 05:25 Heparin - SQ 5,000 unit TID KADEEM Administration Insulin Aspart 1 vial 12/05/19 06:00 12/11/19 05:32 Novolog Vial Sliding Scale - SQ Not Given Q6HPO [facility] Protocol Melatonin 10 mg 12/01/19 22:00 12/10/19 21:28 Melatonin PO 10 mg HS KADEEM Administration Pantoprazole Sodium 40 mg 12/04/19 10:00 12/11/19 09:13 Protonix Packets For Oral Suspension - PO 40 mg DAILY K[facility] Administration Rosuvastatin Calcium 10 mg 12/10/19 22:00 12/10/19 21:28 Crestor - PO 10 mg HS [facility] Administration Tamsulosin HCl 0.4 mg 12/01/19 22:00 12/10/19 21:28 Flomax - PO 0.4 mg HS KADEEM Administration Home Medications Medication Instructions Recorded Carvedilol 3.125 mg PO BID 12/08/18 Escitalopram Oxalate [Lexapro -] 20 mg PO DAILY 12/08/18 Rosuvastatin Calcium [Crestor] 20 mg PO HS 12/08/18 Tamsulosin HCl 0.4 mg PO DAILY 01/11/19 Clopidogrel Bisulfate [Clopidogrel] 75 mg PO DAILY 04/07/19 Melatonin 10 mg PO HS 04/07/19 Sacubitril/Valsartan [Entresto 24 1 each PO BID 04/07/19 mg-26 mg Tablet] Albuterol Sulfate [Proair 2 puff NEB TID PRN 05/31/19 Digihaler] Bimatoprost [Lumigan] 1 drop DAILY 05/31/19 Furosemide 20 mg PO DAILY 05/31/19 Albuterol 0.083% Nebulizer Fatuma 1 neb NEB QID 11/30/19 [Ventolin 0.083%] Budesonide/Formeterol Fumarate 1 inh PO BID 11/30/19 [SYMBICORT 160/4.5mcg -] Insulin Glargine,Hum.rec.anlog 58 units SQ HS 12/01/19 [Lantus Solostar PEN -] Microbiology 12/03/19 21:00 Blood - Peripheral Venous Blood Culture - Final NO GROWTH AFTER 5 DAYS INCUBATION 12/03/19 21:00 Blood - Peripheral Venous Blood Culture - Final NO GROWTH AFTER 5 DAYS INCUBATION 12/04/19 11:00 Urine - Urine - Catheterized Urine Culture - Final Yeast Like Organism ASSESSMENT AND PLAN: This patient is a 79yom with PMhx of systolic heart failure , CAD, s/p PCI ,CKD, s/p medtronic ICD, DM, PUD s/p partial gastrectomy, Achalasia , CABG, HTN, HLP,penile implant ,and copd ( 2 L of O2 ) , who presented after a fall and was found to have L sided femoral neck Fx #Possible aspiration pneumonia : will dc IV antibiotics , patient received it f or total of 6 day, on dysphagia diet # Acute transaminitis: will continue to trend, will dc Unasyn for now and reduce the dose of crestor 10mg and lexapro to 5mg . trending up the LFTS. #POD#11 s/p L Fem neck Fx, s/p intramedullary nail , need rehab # s/p FAll.: syncope vs orthostatic hypotension /dehydration # APRYL on CKD: back to baseline , diovan on hold due to APRYL # Hypernatremia /dehydration : on 1/2 ns IVF , improving sodium is 149--> 145-->142-->139-->137 today # Acute delirium: improved # H/o DM ,CAD, HLP: hold levemir. cont SSI q 6h. #Hx systolic heart failure L: gentle hydration # H/o HTN #Hx of COPD on home o2 2l #Low phos: replete with IV phos DVT Px: heparin continue PT possible rehab tomorrow
[2019-12-11] MEDS ORDERED: SODIUM PHOSPHATE - 30 MM in SODIUM CHLORIDE 500 ML IVPB ONE (11:00)
--- NOTE | 2019-12-11 15:04 | PN ---
Progress Note, Physician - Current Medication List Current Medications: Active Medications Albuterol Sulfate (Ventolin Hfa Inhaler -) 2 puff IH Q8H PRN PRN Reason: SHORTNESS OF BREATH Budesonide/Formoterol Fumarate (Symbicort 160/4.5mcg -) 1 puff IH BID [facility] Last Admin: 12/11/19 09:13 Dose: 1 puff Documented by: Carvedilol (Coreg -) 3.125 mg PO BID [facility] Last Admin: 12/11/19 09:13 Dose: 3.125 mg Documented by: Clopidogrel Bisulfate (Plavix -) 75 mg PO DAILY [facility] Last Admin: 12/11/19 09:13 Dose: 75 mg Documented by: Docusate Sodium (Colace -) 100 mg PO Q12H PRN PRN Reason: CONSTIPATION Last Admin: 12/02/19 11:33 Dose: 100 mg Documented by: Escitalopram Oxalate (Lexapro -) 5 mg PO DAILY [facility] Last Admin: 12/11/19 09:13 Dose: 5 mg Documented by: Heparin Sodium (Porcine) (Heparin -) 5,000 unit SQ TID [facility] Last Admin: 12/11/19 14:39 Dose: 5,000 unit Documented by: Sodium Phosphate 30 mm/ Sodium (Chloride) 510 mls @ 62.5 mls/hr IVPB ONCE ONE Stop: 12/11/19 19:09 Last Admin: 12/11/19 11:57 Dose: 62.5 mls/hr Documented by: Insulin Aspart (Novolog Vial Sliding Scale -) 1 vial SQ Q6HPO [facility]; Protocol Last Admin: 12/11/19 11:30 Dose: 2 units Documented by: Melatonin (Melatonin) 10 mg PO [facility] Last Admin: 12/10/19 21:28 Dose: 10 mg Documented by: Pantoprazole Sodium (Protonix Packets For Oral Suspension -) 40 mg PO DAILY [facility] Last Admin: 12/11/19 09:13 Dose: 40 mg Documented by: Rosuvastatin Calcium (Crestor -) 10 mg PO [facility] Last Admin: 12/10/19 21:28 Dose: 10 mg Documented by: Tamsulosin HCl (Flomax -) 0.4 mg PO [facility] Last Admin: 12/10/19 21:28 Dose: 0.4 mg Documented by: - Objective Vital Signs: Vital Signs Temperature 98.0 F 12/11/19 10:00 Pulse Rate 76 12/11/19 10:00 Respiratory Rate 22 H 12/11/19 10:00 Blood Pressure 130/51 L 12/11/19 10:00 O2 Sat by Pulse Oximetry (%) 92 L 12/11/19 10:00 Eyes: Yes: WNL, Conjunctiva Clear, EOM Intact HENT: Yes: WNL, Atraumatic, Normocephalic Neck: Yes: WNL, Supple, Trachea Midline Cardiovascular: Yes: WNL, Regular Rate and Rhythm Respiratory: Yes: WNL, Regular, CTA Bilaterally Gastrointestinal: Yes: WNL, Normal Bowel Sounds Genitourinary: Yes: WNL Musculoskeletal: Yes: WNL Extremities: Yes: WNL Edema: No Integumentary: Yes: WNL Labs: CBC, BMP 12/11/19 05:56 12/11/19 05:56 INR, PTT INR 1.08 (0.83-1.09) 12/01/19 06:40 Assessment/Plan Qualifiers: Coronary Disease-Associated Artery/Lesion type: [place] artery [place] vs. transplanted heart: [place] heart Associated angina: without angina Qualified Code(s): I25.10 - Atherosclerotic heart disease of [place] coronary artery without angina pectoris (2) COPD (chronic obstructive pulmonary disease) Code(s): J44.9 - CHRONIC OBSTRUCTIVE PULMONARY DISEASE, UNSPECIFIED Qualifiers: COPD type: unspecified COPD Qualified Code(s): J44.9 - Chronic obstructive pulmonary disease, unspecified (3) History of percutaneous coronary intervention Code(s): Z98.890 - OTHER SPECIFIED POSTPROCEDURAL STATES (4) Hx of CABG Code(s): Z95.1 - PRESENCE OF AORTOCORONARY BYPASS GRAFT (5) ICD (implantable cardioverter-defibrillator) in place Code(s): Z95.810 - PRESENCE OF AUTOMATIC (IMPLANTABLE) CARDIAC DEFIBRILLATOR (6) Ischemic cardiomyopathy Code(s): I25.5 - ISCHEMIC CARDIOMYOPATHY (7) Recurrent falls Code(s): R29.6 - REPEATED FALLS (8) Acute on chronic renal insufficiency Code(s): N28.9 - DISORDER OF KIDNEY AND URETER, UNSPECIFIED; N18.9 - CHRONIC KIDNEY DISEASE, UNSPECIFIED (9) Orthostatic hypotension Code(s): I95.1 - ORTHOSTATIC HYPOTENSION Assessment/Plan 11/21/2019 Echo: Normal LV size with mild LVH and mild decreased LVEF 45-50%, grade I diastolic dysfunction, mild LAE, tr MR, mild-mod TR, mild [place] RVSP 34 mmHg Echocardiography (10/15/18): Moderately reduced LV systolic function, LVEF 40-45%, grade 1 diastolic dysfunction, mild , mild MR, moderate TR, mild [place] and pulmonary HTN. 1. POD#8 left IM nail for femoral neck hip fracture 2. Fever referable to asp PNA 3. Chronic LV systolic heart failure (ischemic cardiomyopathy EF 45-50%) 4. CAD s/p PR, CABG, PCI/stents, angina pectoris 5. Post ICD implant 6. HTN 7. Hypercholesterolemia 8. T2DM 9. Acute on CKD stage 3 resolving 10. PAD s/p fem-pop bypass and [employer] 11. COPD 12. PUD s/p Bilroth II gastrectomy 13. 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 Gout 15. Kidney stones 16. Orthostatic hypotension on Northera 17. Gait disturbance 18. Post-op anemia 19. Hypernatremia PLAN: Same cardiac: 1. Off Diovan 40 qd and Lasix 20 qd, judicious hydration and free water repletion pending renal and hypernatremia recovery, continue Plavix 75 mg QD, Coreg 3.125 mg BID and Crestor 20 mg QHS. Monitor orthostasis, has not been taking Northera 100 qd 2. DVT and GI prophylaxis and analgesia as needed 3. Monitor Hgb and transfuse as needed 4. PT as tolerated -> SNF 5. Eventual f/u with Dr. Morales in office Coverage dr. Morales
--- NOTE | 2019-12-11 17:05 | PN ---
Physical Exam: SUBJECTIVE: Patient seen and examined at the bedside. Refusing physical exam, states he feels fine. OBJECTIVE: Vital Signs Period Temp Pulse Resp BP Sys/Garcia Pulse Ox Last 24 Hr 98.0 F-99.0 F 71-80 18-22 130-150/51-63 92-98 Pt refused physical exam GENERAL: AOx1 (to person only) Laboratory Results - last 24 hr 12/10/19 12/10/19 12/11/19 17:10 22:48 05:30 WBC RBC Hgb Hct MCV MCH MCHC RDW Plt Count MPV Absolute Neuts (auto) Neutrophils % Neutrophils % (Manual) Band Neutrophils % Lymphocytes % Lymphocytes % (Manual) Monocytes % Monocytes % (Manual) Eosinophils % Eosinophils % (Manual) Basophils % Basophils % (Manual) Myelocytes % (Man) Promyelocytes % (Man) Blast Cells % (Manual) Nucleated RBC % Metamyelocytes Hypochromia Platelet Estimate Polychromasia Poikilocytosis Anisocytosis Microcytosis Macrocytosis Tear Drop Cells Sodium Potassium Chloride Carbon Dioxide Anion Gap BUN Creatinine Est GFR (CKD-EPI)AfAm Est GFR (CKD-EPI)NonAf POC Glucometer 299 215 188 Random Glucose Calcium Phosphorus Magnesium Total Bilirubin AST ALT Alkaline Phosphatase Total Protein Albumin 12/11/19 12/11/19 12/11/19 05:56 05:56 11:06 WBC 8.1 RBC 3.06 L Hgb 8.1 L Hct 25.0 L MCV 81.7 MCH 26.5 MCHC 32.4 RDW 18.3 H Plt Count 149 MPV 8.5 Absolute Neuts (auto) 6.8 Neutrophils % 84.6 H Neutrophils % (Manual) 80.6 Band Neutrophils % 2.0 Lymphocytes % 8.9 D Lymphocytes % (Manual) 10.2 Monocytes % 5.7 Monocytes % (Manual) 3 L Eosinophils % 0.5 Eosinophils % (Manual) 4.1 D Basophils % 0.3 Basophils % (Manual) 0.0 Myelocytes % (Man) 0 D Promyelocytes % (Man) 0 Blast Cells % (Manual) 0 Nucleated RBC % 0 Metamyelocytes 0 D Hypochromia 0 Platelet Estimate Decreased Polychromasia 1+ Poikilocytosis 1+ Anisocytosis 2+ Microcytosis 2+ Macrocytosis 0 Tear Drop Cells 1+ Sodium 137 Potassium 4.0 Chloride 109 H Carbon Dioxide 23 Anion Gap 6 L BUN 19.6 H Creatinine 1.2 Est GFR (CKD-EPI)AfAm 67.20 Est GFR (CKD-EPI)NonAf 57.98 POC Glucometer 248 Random Glucose 201 H Calcium 8.0 L Phosphorus 2.1 L Magnesium 2.0 Total Bilirubin 1.0 AST 74 H ALT 105 H Alkaline Phosphatase 149 H Total Protein 5.5 L Albumin 2.1 L Active Medications Generic Name Dose Route Start Last Admin Trade Name Freq PRN Reason Stop Dose Admin Albuterol Sulfate 2 puff 12/01/19 16:30 Ventolin Hfa Inhaler - IH Q8H PRN SHORTNESS OF BREATH Budesonide/Formoterol Fumarate 1 puff 12/01/19 22:00 12/11/19 09:13 Symbicort 160/4.5mcg - IH 1 puff BID KADEEM Administration Carvedilol 3.125 mg 12/01/19 22:00 12/11/19 09:13 Coreg - PO 3.125 mg BID KADEEM Administration Clopidogrel Bisulfate 75 mg 12/02/19 14:00 12/11/19 09:13 Plavix - PO 75 mg DAILY KADEEM Administration Docusate Sodium 100 mg 12/01/19 16:30 12/02/19 11:33 Colace - PO 100 mg Q12H PRN Administration CONSTIPATION Escitalopram Oxalate 5 mg 12/10/19 14:29 12/11/19 09:13 Lexapro - PO 5 mg DAILY KADEEM Administration Heparin Sodium (Porcine) 5,000 unit 12/02/19 22:00 12/11/19 14:39 Heparin - SQ 5,000 unit TID KADEEM Administration Sodium Phosphate 30 mm/ Sodium 510 mls @ 62.5 mls/hr 12/11/19 11:00 12/11/19 11:57 Chloride IVPB 12/11/19 19:09 62.5 mls/hr ONCE ONE Administration Insulin Aspart 1 vial 12/05/19 06:00 12/11/19 11:30 Novolog Vial Sliding Scale - SQ 2 units Q6HPO KADEEM Administration Protocol Melatonin 10 mg 12/01/19 22:00 12/10/19 21:28 Melatonin PO 10 mg HS KADEEM Administration Pantoprazole Sodium 40 mg 12/04/19 10:00 12/11/19 09:13 Protonix Packets For Oral Suspension - PO 40 mg DAILY KADEEM Administration Rosuvastatin Calcium 10 mg 12/10/19 22:00 12/10/19 21:28 Crestor - PO 10 mg HS KADEEM Administration Tamsulosin HCl 0.4 mg 12/01/19 22:00 12/10/19 21:28 Flomax - PO 0.4 mg HS KADEEM Administration ASSESSMENT/PLAN: 79M wit PMH HRrEF(s/p ICD), CAD(s/p CABG, PCI) DM, PUD(s/p gastrectomy), HTN, COPD (2L NC at home) presented with a fall, found to have a L sided femoral neck Fx, is POD#10 s/p intramedullary nail. #L Femoral Neck Fracture - s/p Intramedullary Nail Surgery POD# 10 - PT on board - Pending rehab to [facility] once clinically feasible # APRYL - Cr 1.2 today, resolved - Na Phos 30mm in N/S @ 62.5 #Anemia - Hgb at to 8.1, uptrending, will continue to monitor #Transaminitis - AST/ALT 74/105 - Lexapro decreased to 5mg and Crestor to 10gm tp avoid hepatotoxicity #Resolved suspected aspiration PNA - Completed Unasyn 6 days (12/03-12/09) #Hx of DM - Holding Levemir - BGM, ISS #Hx of HTN - Continue home Coreg #Hx of HLD - Continue home Crestor on lower dose of 10mg #FEN - Improving hypernatremia, 137 today - Low Phos 2.1, Na Phos 30mm in N/S @ 62.5 - Soft diet #Prophylaxis - Protonix - Heparin, Plavix #Dispo - Monitor in M/S, rehab once clinically feasible Visit type - Emergency Visit Emergency Visit: Yes ED Registration Date: 11/30/19 Care time: The patient presented to the Emergency Department on the above date and was hospitalized for further evaluation of their emergent condition. - New Patient This patient is new to me today: No - Critical Care Critical Care patient: No - Medication Review Med list reviewed for High Risk Meds patients 65 and older: Yes ATTENDING PHYSICIAN STATEMENT I saw and evaluated the patient. I reviewed the resident's note and discussed the case with the resident. I agree with the resident's findings and plan as documented. SUBJECTIVE: OBJECTIVE: ASSESSMENT AND PLAN:
[2019-12-11] MEDS: TAMSULOSIN HCL 0.4 MG CAP PO SCH (23:15)
[2019-12-11] MEDS: ROSUVASTATIN CA 10 MG TABLET (FP) PO SCH (23:15)
[2019-12-11] MEDS: MELATONIN 5 MG TABLETS PO SCH (23:15)
[2019-12-12] MEDS: HEPARIN NA (PORCINE) 5,000 UNITS/ML 1ML VIAL SQ SCH ×3 (06:54→21:28)
[2019-12-12] MEDS: INSULIN SLIDING SCALE (NOVOLOG) 1 VIAL SQ SCH ×4 (06:57→23:10)
[2019-12-12 07:57] LABS: BASO % 0.3 % (0-2.0); EOS % 0.6 % (0-4.5); HEMATOCRIT 23.5 % (35.4-49); HEMOGLOBIN 7.6 GM/dL (11.7-16.9); LYMPH % 9.3 % (8-40); MCH 26.5 pg (25.7-33.7); MCHC 32.5 g/dl (32.0-35.9); MEAN CELL VOLUME 81.6 fl (80-96); MEAN PLT VOLUME 8.4 fl (7.5-11.1); MONO % 5.6 % (3.8-10.2); NEUT % 84.2 % (42.8-82.8); PLATELET COUNT 141 K/MM3 (134-434); RBC 2.88 M/mm3 (4.00-5.60); RDW 18.4 % (11.9-15.9); WHITE BLOOD COUNT 8.1 K/mm3 (4.0-10.0)
[2019-12-12 08:13] LABS: POTASSIUM 4.3 mmol/L (3.5-5.1)
[2019-12-12 08:19] LABS: BILIRUBIN,TOTAL 0.8 mg/dL (0.2-1); BLOOD UREA NITROGEN 19.2 mg/dL (7-18); CALCIUM 7.9 mg/dL (8.5-10.1); CREATININE 1.3 mg/dL (0.55-1.3); MAGNESIUM 1.9 mg/dL (1.8-2.4); PHOSPHOROUS 2.9 mg/dL (2.5-4.9); TOT PROT 5.5 g/dl (6.4-8.2)
[2019-12-12] MEDS ORDERED: FUROSEMIDE 40 MG/4 ML INJECTABLE VIAL IVPUSH ONE (08:58)
--- NOTE | 2019-12-12 09:50 | PN ---
Teaching Attending Note Name of Resident: Nate Valentino ATTENDING PHYSICIAN STATEMENT I saw and evaluated the patient. I reviewed the resident's note and discussed the case with the resident. I agree with the resident's findings and plan as documented. SUBJECTIVE: Patient has no new complain except mild abdominal pain OBJECTIVE: Vital Signs Temperature 99.7 F H 12/12/19 01:53 Pulse Rate 78 12/12/19 06:49 Respiratory Rate 18 12/12/19 06:49 Blood Pressure 136/55 L 12/12/19 06:49 O2 Sat by Pulse Oximetry (%) 96 12/11/19 22:00 PE:per resident's note mild abdominal tenderness on palpation CBCD WBC 8.1 K/mm3 (4.0-10.0) 12/12/19 06:35 RBC 2.88 M/mm3 (4.00-5.60) L 12/12/19 06:35 Hgb 7.6 GM/dL (11.7-16.9) L 12/12/19 06:35 Hct 23.5 % (35.4-49) L 12/12/19 06:35 MCV 81.6 fl (80-96) 12/12/19 06:35 MCHC 32.5 g/dl (32.0-35.9) 12/12/19 06:35 RDW 18.4 % (11.9-15.9) H 12/12/19 06:35 Plt Count 141 K/MM3 (134-434) 12/12/19 06:35 MPV 8.4 fl (7.5-11.1) 12/12/19 06:35 CMP Sodium 140 mmol/L (136-145) 12/12/19 06:35 Potassium 4.3 mmol/L (3.5-5.1) 12/12/19 06:35 Chloride 108 mmol/L (98-107) H 12/12/19 06:35 Carbon Dioxide 23 mmol/L (21-32) 12/12/19 06:35 Anion Gap 9 MMOL/L (8-16) 12/12/19 06:35 BUN 19.2 mg/dL (7-18) H 12/12/19 06:35 Creatinine 1.3 mg/dL (0.55-1.3) 12/12/19 06:35 Random Glucose 186 mg/dL (74-106) H 12/12/19 06:35 Calcium 7.9 mg/dL (8.5-10.1) L 12/12/19 06:35 Total Bilirubin 0.8 mg/dL (0.2-1) 12/12/19 06:35 AST 91 U/L (15-37) H 12/12/19 06:35 ALT 117 U/L (13-61) H 12/12/19 06:35 Alkaline Phosphatase 155 U/L (45-117) H 12/12/19 06:35 Total Protein 5.5 g/dl (6.4-8.2) L 12/12/19 06:35 Albumin 2.0 g/dl (3.4-5.0) L 12/12/19 06:35 CARDIAC ENZYMES Creatine Kinase 33 U/L (26-308) 11/30/19 08:35 Troponin I < 0.02 ng/ml (0.00-0.05) 11/30/19 08:35 Current Medications Generic Name Dose Route Start Last Admin Trade Name Freq PRN Reason Stop Dose Admin Albuterol Sulfate 2 puff 12/01/19 16:30 Ventolin Hfa Inhaler - IH Q8H PRN SHORTNESS OF BREATH Budesonide/Formoterol Fumarate 1 puff 12/01/19 22:00 12/11/19 23:15 Symbicort 160/4.5mcg - IH 1 puff BID KADEEM Administration Carvedilol 3.125 mg 12/01/19 22:00 12/11/19 23:15 Coreg - PO 3.125 mg BID KADEEM Administration Clopidogrel Bisulfate 75 mg 12/02/19 14:00 12/11/19 09:13 Plavix - PO 75 mg DAILY KADEEM Administration Docusate Sodium 100 mg 12/01/19 16:30 12/02/19 11:33 Colace - PO 100 mg Q12H PRN Administration CONSTIPATION Escitalopram Oxalate 5 mg 12/10/19 14:29 12/11/19 09:13 Lexapro - PO 5 mg DAILY KADEEM Administration Heparin Sodium (Porcine) 5,000 unit 12/02/19 22:00 12/12/19 06:54 Heparin - SQ 5,000 unit TID KADEEM Administration Insulin Aspart 1 vial 12/05/19 06:00 12/12/19 06:57 Novolog Vial Sliding Scale - SQ Not Given Q6HPO [facility] Protocol Melatonin 10 mg 12/01/19 22:00 12/11/19 23:15 Melatonin PO 10 mg HS KADEEM Administration Pantoprazole Sodium 40 mg 12/04/19 10:00 12/11/19 09:13 Protonix Packets For Oral Suspension - PO 40 mg DAILY KADEEM Administration Rosuvastatin Calcium 10 mg 12/10/19 22:00 12/11/19 23:15 Crestor - PO 10 mg HS KADEEM Administration Tamsulosin HCl 0.4 mg 12/01/19 22:00 12/11/19 23:15 Flomax - PO 0.4 mg HS KADEEM Administration Home Medications Medication Instructions Recorded Carvedilol 3.125 mg PO BID 12/08/18 Escitalopram Oxalate [Lexapro -] 20 mg PO DAILY 12/08/18 Rosuvastatin Calcium [Crestor] 20 mg PO HS 12/08/18 Tamsulosin HCl 0.4 mg PO DAILY 01/11/19 Clopidogrel Bisulfate [Clopidogrel] 75 mg PO DAILY 04/07/19 Melatonin 10 mg PO HS 04/07/19 Sacubitril/Valsartan [Entresto 24 1 each PO BID 04/07/19 mg-26 mg Tablet] Albuterol Sulfate [Proair 2 puff NEB TID PRN 05/31/19 Digihaler] Bimatoprost [Lumigan] 1 drop DAILY 05/31/19 Furosemide 20 mg PO DAILY 05/31/19 Albuterol 0.083% Nebulizer Fatuma 1 neb NEB QID 11/30/19 [Ventolin 0.083%] Budesonide/Formeterol Fumarate 1 inh PO BID 11/30/19 [SYMBICORT 160/4.5mcg -] Insulin Glargine,Hum.rec.anlog 58 units SQ HS 12/01/19 [Lantus Solostar PEN -] Microbiology 12/03/19 21:00 Blood - Peripheral Venous Blood Culture - Final NO GROWTH AFTER 5 DAYS INCUBATION 12/03/19 21:00 Blood - Peripheral Venous Blood Culture - Final NO GROWTH AFTER 5 DAYS INCUBATION 12/04/19 11:00 Urine - Urine - Catheterized Urine Culture - Final Yeast Like Organism ASSESSMENT AND PLAN: This patient is a 79yom with PMhx of systolic heart failure , CAD, s/p PCI ,CKD, s/p medtronic ICD, DM, PUD s/p partial gastrectomy, Achalasia , CABG, HTN, HLP,penile implant ,and copd ( 2 L of O2 ) , who presented after a fall and was found to have L sided femoral neck Fx #Possible aspiration pneumonia : will dc IV antibiotics , patient received it for total of 6 day, on dysphagia diet # Acute transaminitis: will continue to trend, will dc Unasyn for now and reduce the dose of crestor 10mg and lexapro to 5mg . trending up continues . will get abdominal US , will re-invite GI back #POD#12 s/p L Fem neck Fx, s/p intramedullary nail , need rehab # s/p FAll.: syncope vs orthostatic hypotension /dehydration # APRYL on CKD: back to baseline , diovan on hold due to APRYL # Hypernatremia /dehydration : on 1/2 ns IVF , improving sodium is 149--> 145-->142-->139-->137 today # Acute delirium: improved # H/o DM ,CAD, HLP: will restart levemir, 5 units in am and 2 units hs . cont SSI q 6h. #Hx systolic heart failure L: gentle hydration # H/o HTN #Hx of COPD on home o2 2l #Low phos: replete with IV phos DVT Px: heparin continue PT possible rehab if LFts start to trend down , if not check with GI to re-visit the patient.
[2019-12-12] MEDS: ESCITALOPRAM OXALATE 10 MG TABLET PO SCH (09:52)
--- NOTE | 2019-12-12 09:52 | PN ---
Progress Note, Physician History of Present Illness: Afebrile, MBS confirms silent aspiration resulting in post-prandial choking, denies recurrent near or true syncope, dyspnea, orthopnea, left hip discomfort adequately controlled. - Current Medication List Current Medications: Active Medications Albuterol Sulfate (Ventolin Hfa Inhaler -) 2 puff IH Q8H PRN PRN Reason: SHORTNESS OF BREATH Budesonide/Formoterol Fumarate (Symbicort 160/4.5mcg -) 1 puff IH BID [facility] Last Admin: 12/11/19 23:15 Dose: 1 puff Documented by: Carvedilol (Coreg -) 3.125 mg PO BID [facility] Last Admin: 12/11/19 23:15 Dose: 3.125 mg Documented by: Clopidogrel Bisulfate (Plavix -) 75 mg PO DAILY [facility] Last Admin: 12/11/19 09:13 Dose: 75 mg Documented by: Docusate Sodium (Colace -) 100 mg PO Q12H PRN PRN Reason: CONSTIPATION Last Admin: 12/02/19 11:33 Dose: 100 mg Documented by: Escitalopram Oxalate (Lexapro -) 5 mg PO DAILY [facility] Last Admin: 12/11/19 09:13 Dose: 5 mg Documented by: Heparin Sodium (Porcine) (Heparin -) 5,000 unit SQ TID [facility] Last Admin: 12/12/19 06:54 Dose: 5,000 unit Documented by: Insulin Aspart (Novolog Vial Sliding Scale -) 1 vial SQ Q6HPO [facility]; Protocol Last Admin: 12/12/19 06:57 Dose: Not Given Documented by: Melatonin (Melatonin) 10 mg PO [facility] Last Admin: 12/11/19 23:15 Dose: 10 mg Documented by: Pantoprazole Sodium (Protonix Packets For Oral Suspension -) 40 mg PO DAILY [facility] Last Admin: 12/11/19 09:13 Dose: 40 mg Documented by: Rosuvastatin Calcium (Crestor -) 10 mg PO [facility] Last Admin: 12/11/19 23:15 Dose: 10 mg Documented by: Tamsulosin HCl (Flomax -) 0.4 mg PO [facility] Last Admin: 12/11/19 23:15 Dose: 0.4 mg Documented by: - Objective Vital Signs: Vital Signs Temperature 99.7 F H 12/12/19 01:53 Pulse Rate 78 12/12/19 06:49 Respiratory Rate 18 12/12/19 06:49 Blood Pressure 136/55 L 12/12/19 06:49 O2 Sat by Pulse Oximetry (%) 96 12/11/19 22:00 Constitutional: Yes: No Distress, Calm, Thin Neck: Yes: Supple Cardiovascular: Yes: Regular Rate and Rhythm Respiratory: Yes: Regular, CTA Bilaterally Gastrointestinal: Yes: Soft, Hypoactive Bowel Sounds Edema: No Labs: CBC, BMP 12/12/19 06:35 12/12/19 06:35 INR, PTT INR 1.08 (0.83-1.09) 12/01/19 06:40 Problem List - Problems (1) CAD (coronary artery disease) Code(s): I25.10 - ATHSCL HEART DISEASE OF [place] CORONARY ARTERY W/O ANG PCTRS Qualifiers: Coronary Disease-Associated Artery/Lesion type: [place] artery [place] vs. transplanted heart: [place] heart Associated angina: without angina Qualified Code(s): I25.10 - Atherosclerotic heart disease of [place] coronary artery without angina pectoris (2) COPD (chronic obstructive pulmonary disease) Code(s): J44.9 - CHRONIC OBSTRUCTIVE PULMONARY DISEASE, UNSPECIFIED Qualifiers: COPD type: unspecified COPD Qualified Code(s): J44.9 - Chronic obstructive pulmonary disease, unspecified (3) History of percutaneous coronary intervention Code(s): Z98.890 - OTHER SPECIFIED POSTPROCEDURAL STATES (4) Hx of CABG Code(s): Z95.1 - PRESENCE OF AORTOCORONARY BYPASS GRAFT (5) ICD (implantable cardioverter-defibrillator) in place Code(s): Z95.810 - PRESENCE OF AUTOMATIC (IMPLANTABLE) CARDIAC DEFIBRILLATOR (6) Ischemic cardiomyopathy Code(s): I25.5 - ISCHEMIC CARDIOMYOPATHY (7) Recurrent falls Code(s): R29.6 - REPEATED FALLS (8) Acute on chronic renal insufficiency Code(s): N28.9 - DISORDER OF KIDNEY AND URETER, UNSPECIFIED; N18.9 - CHRONIC KIDNEY DISEASE, UNSPECIFIED (9) Orthostatic hypotension Code(s): I95.1 - ORTHOSTATIC HYPOTENSION Assessment/Plan 11/21/2019 Echo: Normal LV size with mild LVH and mild decreased LVEF 45-50%, grade I diastolic dysfunction, mild LAE, tr MR, mild-mod TR, mild WA RVSP 34 mmHg Echocardiography (10/15/18): Moderately reduced LV systolic function, LVEF 40-45%, grade 1 diastolic dysfunction, mild , mild MR, moderate TR, mild WA and pulmonary HTN. 1. POD#11 left IM nail for femoral neck hip fracture 2. Fever referable to asp PNA 3. Chronic LV systolic heart failure (ischemic cardiomyopathy EF 45-50%) 4. CAD s/p RI, CABG, PCI/stents, angina pectoris 5. Post ICD implant 6. HTN 7. Hypercholesterolemia 8. T2DM 9. Acute on CKD stage 3 resolved 10. PAD s/p fem-pop bypass and [employer] 11. COPD 12. PUD s/p Bilroth II gastrectomy 13. 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 Gout 15. Kidney stones 16. Orthostatic hypotension off Northera 17. Gait disturbance 18. Post-op anemia 19. Hypernatremia resolved PLAN: 1. Completed abx course, outpatient motility studies, needs dysphagia diet 2. Resume Diovan 40 qd as renal fxn stabilized, continue Plavix 75 mg QD, Coreg 3.125 mg BID and Crestor 20 mg QHS. Monitor orthostasis, has not been taking Northera 100 qd 3. DVT and GI prophylaxis and analgesia as needed 4. Monitor Hgb and transfuse as needed 5. PT as tolerated -> SNF 6. Eventual f/u with Dr. Morales in office
[2019-12-12] MEDS: CARVEDILOL 3.125 MG TABLET (FP) PO SCH ×2 (09:53→21:28)
[2019-12-12] MEDS: PANTOPRAZOLE SOD 40 MG SUSPENSION PACKET PO SCH (09:53)
[2019-12-12] MEDS: CLOPIDOGREL BISULFATE 75 MG TABLET (FP) PO SCH (09:53)
[2019-12-12] MEDS: BUDESONIDE/FORMETEROL FUMARATE 160/4.5 mcg INHALER IH SCH ×2 (09:54→21:32)
--- NOTE | 2019-12-12 10:54 | PN ---
Progress Note, AIR TESTER - Note Progress Note: MBS completed. Selected Entries 12/11/19 12/11/19 12/12/19 14:00 20:04 01:53 Breakfast 75% Diet Tolerated Well Well Lunch 75% Supper 75% Temperature 99.7 F H Blood Pressure 142/57 L 12/12/19 12/12/19 06:49 10:00 Breakfast 75% Diet Tolerated Well Lunch Supper Temperature 98.1 F Blood Pressure 136/55 L 116/49 L Laboratory Tests 12/12/19 06:35 WBC 8.1 On soft solid diet with nectar thicken liquids as tolerated
[2019-12-12] MEDS: VALSARTAN 40 MG TABLET (FP) PO SCH (11:50)
--- NOTE | 2019-12-12 15:32 | PN ---
Progress Note (short form) - Note Progress Note: Resting in NAD. MBS : silent aspiration. Intake & Output 12/09/19 12/10/19 12/11/19 12/12/19 23:59 23:59 23:59 23:59 Intake Total 1815 1120 1560 50 Output Total 511 582 4957 300 Balance 1565 520 560 -250 Last Vital Signs Temp Pulse Resp BP Pulse Ox 98.2 F 75 20 108/48 L 96 12/12/19 14:03 12/12/19 14:03 12/12/19 14:03 12/12/19 14:03 12/12/19 10:00 Active Medications Albuterol Sulfate (Ventolin Hfa Inhaler -) 2 puff IH Q8H PRN PRN Reason: SHORTNESS OF BREATH Budesonide/Formoterol Fumarate (Symbicort 160/4.5mcg -) 1 puff IH BID [facility] Last Admin: 12/12/19 09:54 Dose: 1 puff Documented by: Carvedilol (Coreg -) 3.125 mg PO BID [facility] Last Admin: 12/12/19 09:53 Dose: 3.125 mg Documented by: Clopidogrel Bisulfate (Plavix -) 75 mg PO DAILY [facility] Last Admin: 12/12/19 09:53 Dose: 75 mg Documented by: Docusate Sodium (Colace -) 100 mg PO Q12H PRN PRN Reason: CONSTIPATION Last Admin: 12/02/19 11:33 Dose: 100 mg Documented by: Escitalopram Oxalate (Lexapro -) 5 mg PO DAILY [facility] Last Admin: 12/12/19 09:52 Dose: 5 mg Documented by: Heparin Sodium (Porcine) (Heparin -) 5,000 unit SQ TID [facility] Last Admin: 12/12/19 14:19 Dose: 5,000 unit Documented by: Insulin Aspart (Novolog Vial Sliding Scale -) 1 vial SQ Q6HPO [facility]; Protocol Last Admin: 12/12/19 11:48 Dose: 2 units Documented by: Melatonin (Melatonin) 10 mg PO [facility] Last Admin: 12/11/19 23:15 Dose: 10 mg Documented by: Pantoprazole Sodium (Protonix Packets For Oral Suspension -) 40 mg PO DAILY [facility] Last Admin: 12/12/19 09:53 Dose: 40 mg Documented by: Rosuvastatin Calcium (Crestor -) 10 mg PO [facility] Last Admin: 12/11/19 23:15 Dose: 10 mg Documented by: Tamsulosin HCl (Flomax -) 0.4 mg PO HS [facility] Last Admin: 12/11/19 23:15 Dose: 0.4 mg Documented by: Valsartan (Diovan -) 40 mg PO DAILY [facility] Last Admin: 12/12/19 11:50 Dose: 40 mg Documented by: Constitutional: Yes: NAD Eyes: Yes: WNL HENT: Yes: WNL Neck: Yes: WNL Cardiovascular: Yes: Regular Rate and Rhythm, S1, S2 Respiratory: Yes: Diminished, scattered rhonchi Gastrointestinal: Yes: Normal Bowel Sounds, Soft Extremities: Yes: WNL Edema: No Labs: Laboratory Results - last 24 hr 12/11/19 12/11/19 12/12/19 17:02 23:09 06:35 WBC RBC Hgb Hct MCV MCH MCHC RDW Plt Count MPV Absolute Neuts (auto) Neutrophils % Lymphocytes % Monocytes % Eosinophils % Basophils % Nucleated RBC % Sodium 140 Potassium 4.3 Chloride 108 H Carbon Dioxide 23 Anion Gap 9 BUN 19.2 H Creatinine 1.3 Est GFR (CKD-EPI)AfAm 61.00 Est GFR (CKD-EPI)NonAf 52.63 POC Glucometer 316 211 Random Glucose 186 H Calcium 7.9 L Phosphorus 2.9 Magnesium 1.9 Total Bilirubin 0.8 AST 91 H ALT 117 H Alkaline Phosphatase 155 H Total Protein 5.5 L Albumin 2.0 L Blood Type Antibody Screen Crossmatch 12/12/19 12/12/19 12/12/19 06:35 06:52 11:03 WBC 8.1 RBC 2.88 L Hgb 7.6 L Hct 23.5 L MCV 81.6 MCH 26.5 MCHC 32.5 RDW 18.4 H Plt Count 141 MPV 8.4 Absolute Neuts (auto) 6.8 Neutrophils % 84.2 H Lymphocytes % 9.3 Monocytes % 5.6 Eosinophils % 0.6 Basophils % 0.3 Nucleated RBC % 0 Sodium Potassium Chloride Carbon Dioxide Anion Gap BUN Creatinine Est GFR (CKD-EPI)AfAm Est GFR (CKD-EPI)NonAf POC Glucometer 173 Random Glucose Calcium Phosphorus Magnesium Total Bilirubin AST ALT Alkaline Phosphatase Total Protein Albumin Blood Type A POSITIVE Antibody Screen Negative Crossmatch See Detail 12/12/19 11:13 WBC RBC Hgb Hct MCV MCH MCHC RDW Plt Count MPV Absolute Neuts (auto) Neutrophils % Lymphocytes % Monocytes % Eosinophils % Basophils % Nucleated RBC % Sodium Potassium Chloride Carbon Dioxide Anion Gap BUN Creatinine Est GFR (CKD-EPI)AfAm Est GFR (CKD-EPI)NonAf POC Glucometer 226 Random Glucose Calcium Phosphorus Magnesium Total Bilirubin AST ALT Alkaline Phosphatase Total Protein Albumin Blood Type Antibody Screen Crossmatch Problem List - Problems (1) Anemia Code(s): D64.9 - ANEMIA, UNSPECIFIED Qualifiers: Anemia type: unspecified type Qualified Code(s): D64.9 - Anemia, unspecified (2) Fall Code(s): W19.XXXA - UNSPECIFIED FALL, INITIAL ENCOUNTER Qualifiers: Encounter type: initial encounter Qualified Code(s): W19.XXXA - Unspecified fall, initial encounter (3) Hip fracture, left Code(s): S72.002A - FRACTURE OF UNSP PART OF NECK OF LEFT FEMUR, INIT Qualifiers: Encounter type: initial encounter Fracture type: closed Qualified Code(s): S72.002A - Fracture of unspecified part of neck of left femur, initial encounter for closed fracture (4) Neuropathy Code(s): G62.9 - POLYNEUROPATHY, UNSPECIFIED (5) Syncope Code(s): R55 - SYNCOPE AND COLLAPSE Qualifiers: Syncope type: unspecified Qualified Code(s): R55 - Syncope and collapse (6) Pneumonia Code(s): J18.9 - PNEUMONIA, UNSPECIFIED ORGANISM Qualifiers: Pneumonia type: due to unspecified organism Laterality: unspecified laterality Lung location: unspecified part of lung Qualified Code(s): J18.9 - Pneumonia, unspecified organism (7) Achalasia Code(s): K22.0 - ACHALASIA OF CARDIA (8) BPH (benign prostatic hypertrophy) Code(s): N40.0 - BENIGN PROSTATIC HYPERPLASIA WITHOUT LOWER URINRY TRACT SYMP Qualifiers: Lower urinary tract symptom presence: presence of symptoms unspecified (9) CAD (coronary artery disease) Code(s): I25.10 - ATHSCL HEART DISEASE OF [place] CORONARY ARTERY W/O ANG PCTRS Qualifiers: Coronary Disease-Associated Artery/Lesion type: [place] artery [place] vs. transplanted heart: [place] heart Associated angina: without angina Qualified Code(s): I25.10 - Atherosclerotic heart disease of [place] coronary artery without angina pectoris (10) CKD (chronic kidney disease) stage 3, GFR 30-59 ml/min Code(s): N18.3 - CHRONIC KIDNEY DISEASE, STAGE 3 (MODERATE) (11) COPD (chronic obstructive pulmonary disease) Code(s): J44.9 - CHRONIC OBSTRUCTIVE PULMONARY DISEASE, UNSPECIFIED (12) History of percutaneous coronary intervention Code(s): Z98.890 - OTHER SPECIFIED POSTPROCEDURAL STATES (13) Hx of CABG Code(s): Z95.1 - PRESENCE OF AORTOCORONARY BYPASS GRAFT (14) Hyperlipidemia Code(s): E78.5 - HYPERLIPIDEMIA, UNSPECIFIED Qualifiers: Hyperlipidemia type: pure hypercholesterolemia Qualified Code(s): E78.00 - Pure hypercholesterolemia, unspecified; E78.0 - Pure hypercholesterolemia (15) ICD (implantable cardioverter-defibrillator) in place Code(s): Z95.810 - PRESENCE OF AUTOMATIC (IMPLANTABLE) CARDIAC DEFIBRILLATOR (16) Ischemic cardiomyopathy Code(s): I25.5 - ISCHEMIC CARDIOMYOPATHY (17) Recurrent falls Code(s): R29.6 - REPEATED FALLS (18) Hypertension Code(s): I10 - ESSENTIAL (PRIMARY) HYPERTENSION Qualifiers: Hypertension type: essential hypertension Qualified Code(s): I10 - Essential (primary) hypertension Assessment/Plan IMP RLL PNEUMONIA LIKELY ASPIRATION CHF ASHD S/P CABG,PCI COPD LEFT HIP FX S/P MECHANICAL FALL S/P INTRA-MEDULLARY NAIL ALTERED MENTAL STATUS LIKELY TOXIC METABOLIC ENCEPHALOPATHY NEUROGENIC SYNCOPE DM HLD HTN H/O PUD S/P BILLROTH II H/O ACHALASIA S/P HELLER MYOTOMY ANEMIA HYPERNATREMIA PLAN SUPPLEMENTAL O2 NEEDED INHALED BRONCHODILATORS ' ABX ASPIRATION PRECAUTIONS NORMAL TRANSFUSION THRESHOLD MONITOR LYTES,RENAL FUNCTION,H+H DR KEENE
--- NOTE | 2019-12-12 17:40 | PN ---
Physical Exam: SUBJECTIVE: Patient seen and examined at bedside. The patient denies shortness of breath, diarrhea, constipation, nausea, and dysuria. The patient reports auditory and visual hallucinations again, and he is A&O x 2 (name and location only), giving "2020" as the year and "October or November, I can't remember" as the month. Hgb was less than 8, so a blood transfusion of 1 pRBC was initiated. OBJECTIVE: Vital Signs Period Temp Pulse Resp BP Sys/Garcia Pulse Ox Last 24 Hr 98.1 F-99.7 F 68-78 18-20 108-142/48-57 96-96 GENERAL: The patient is A&Ox2 (name and location only), in no acute distress but looking fatigued. HEAD: Normal with no signs of trauma. EYES: Extraocular movements intact, sclera anicteric. No ptosis. Pale conjuctiva. ENT: Ears normal, nares patent, oropharynx clear without exudates, dry mucous membranes. NECK: Trachea midline, full range of motion, supple. LUNGS: Decreased breath sounds bilaterally, no accessory muscle use. Crackles bilaterally. HEART: Regular rate and rhythm, S1, S2 without murmur, rub or gallop. ABDOMEN: Soft, nontender, nondistended, normoactive bowel sounds, no guarding, no rebound, no masses. EXTREMITIES: 2+ pulses, warm, well-perfused, no edema. NEUROLOGICAL: Normal speech, gait not observed. PSYCH: Normal mood, normal affect. SKIN: Warm, dry, normal turgor, no rashes or lesions noted. Capillary refill > 3 seconds. Nails pale/blanched. Laboratory Results - last 24 hr 12/11/19 12/12/19 12/12/19 23:09 06:35 06:35 WBC 8.1 RBC 2.88 L Hgb 7.6 L Hct 23.5 L MCV 81.6 MCH 26.5 MCHC 32.5 RDW 18.4 H Plt Count 141 MPV 8.4 Absolute Neuts (auto) 6.8 Neutrophils % 84.2 H Lymphocytes % 9.3 Monocytes % 5.6 Eosinophils % 0.6 Basophils % 0.3 Nucleated RBC % 0 Sodium 140 Potassium 4.3 Chloride 108 H Carbon Dioxide 23 Anion Gap 9 BUN 19.2 H Creatinine 1.3 Est GFR (CKD-EPI)AfAm 61.00 Est GFR (CKD-EPI)NonAf 52.63 POC Glucometer 211 Random Glucose 186 H Calcium 7.9 L Phosphorus 2.9 Magnesium 1.9 Total Bilirubin 0.8 AST 91 H ALT 117 H Alkaline Phosphatase 155 H Total Protein 5.5 L Albumin 2.0 L Blood Type Antibody Screen Crossmatch 12/12/19 12/12/19 12/12/19 06:52 11:03 11:13 WBC RBC Hgb Hct MCV MCH MCHC RDW Plt Count MPV Absolute Neuts (auto) Neutrophils % Lymphocytes % Monocytes % Eosinophils % Basophils % Nucleated RBC % Sodium Potassium Chloride Carbon Dioxide Anion Gap BUN Creatinine Est GFR (CKD-EPI)AfAm Est GFR (CKD-EPI)NonAf POC Glucometer 173 226 Random Glucose Calcium Phosphorus Magnesium Total Bilirubin AST ALT Alkaline Phosphatase Total Protein Albumin Blood Type A POSITIVE Antibody Screen Negative Crossmatch See Detail 12/12/19 17:13 WBC RBC Hgb Hct MCV MCH MCHC RDW Plt Count MPV Absolute Neuts (auto) Neutrophils % Lymphocytes % Monocytes % Eosinophils % Basophils % Nucleated RBC % Sodium Potassium Chloride Carbon Dioxide Anion Gap BUN Creatinine Est GFR (CKD-EPI)AfAm Est GFR (CKD-EPI)NonAf POC Glucometer 346 Random Glucose Calcium Phosphorus Magnesium Total Bilirubin AST ALT Alkaline Phosphatase Total Protein Albumin Blood Type Antibody Screen Crossmatch Active Medications Generic Name Dose Route Start Last Admin Trade Name Freq PRN Reason Stop Dose Admin Albuterol Sulfate 2 puff 12/01/19 16:30 Ventolin Hfa Inhaler - IH Q8H PRN SHORTNESS OF BREATH Budesonide/Formoterol Fumarate 1 puff 12/01/19 22:00 12/12/19 09:54 Symbicort 160/4.5mcg - IH 1 puff BID KADEEM Administration Carvedilol 3.125 mg 12/01/19 22:00 12/12/19 09:53 Coreg - PO 3.125 mg BID KADEEM Administration Clopidogrel Bisulfate 75 mg 12/02/19 14:00 12/12/19 09:53 Plavix - PO 75 mg DAILY KADEEM Administration Docusate Sodium 100 mg 12/01/19 16:30 12/02/19 11:33 Colace - PO 100 mg Q12H PRN Administration CONSTIPATION Escitalopram Oxalate 5 mg 12/10/19 14:29 12/12/19 09:52 Lexapro - PO 5 mg DAILY KADEEM Administration Heparin Sodium (Porcine) 5,000 unit 12/02/19 22:00 12/12/19 14:19 Heparin - SQ 5,000 unit TID KADEEM Administration Insulin Aspart 1 vial 12/05/19 06:00 12/12/19 17:21 Novolog Vial Sliding Scale - SQ 6 units Q6HPO KADEEM Administration Protocol Melatonin 10 mg 12/01/19 22:00 12/11/19 23:15 Melatonin PO 10 mg HS KADEEM Administration Pantoprazole Sodium 40 mg 12/04/19 10:00 12/12/19 09:53 Protonix Packets For Oral Suspension - PO 40 mg DAILY KADEEM Administration Rosuvastatin Calcium 10 mg 12/10/19 22:00 12/11/19 23:15 Crestor - PO 10 mg HS KADEEM Administration Tamsulosin HCl 0.4 mg 12/01/19 22:00 12/11/19 23:15 Flomax - PO 0.4 mg HS KADEEM Administration Valsartan 40 mg 12/12/19 11:30 12/12/19 11:50 Diovan - PO 40 mg DAILY KADEEM Administration ASSESSMENT/PLAN: 79 year old male patient with past medical history that includes Systolic heart failure, CAD s/p PCI, CKD, s/p medtronic ICD, DM, PVD s/p partial gastrectomy, achalasia, penile implant, CABG, HTN, and HLD, who presented to the ED after a fall. 1. Femoral Neck Fracture s/p Intramedullary Nail Surgery - POD 11 - Monitoring for any acute changes 2. Acute Metabolic Encephalopathy secondary to Low Hemoglobin - Hgb at to 7.6 today - Monitoring Hgb - Monitoring Electrolytes - Patient is A&Ox2 today with hallucinations - 1 pRBC transfusion initiated this morning 3. APRYL - resolved - Creatinine is trending down from a high of 2.4 to 1.3 today (which is within normal limits) - Monitoring the Creatinine - IV fluids 4. Elevated LFTs - AST 91 (High) - ALT 117 (High) - Alk Phos 155 (WNL) - Total Bilirubin 0.8 (WNL) - Monitoring LFTs 5. Possible Aspiration PNA - resolved - CXR showed a left infiltrate - Ampicillin/Sulbactam completed 6. Systolic CHF - Crackles on exam - Lasix 7. Dehydration - Sodium 140 (within normal limits) - Chloride 108 - Patient is now A&Ox2 with hallucinations - Monitoring electrolytes 9. Achalasia - The patient has the Soft Diet with [place] Thickened Liquids 10. DM - Novolog sliding scale 11. HTN - Coreg 12. HLD - Rosuvastatin # FEN - Monitoring Electrolytes, Soft Diet with [place] Thickened Liquids DVT PPx - Heparin SQ and Plavix GI PPx - Protonix Visit type - Emergency Visit Emergency Visit: Yes ED Registration Date: 11/30/19 Care time: The patient presented to the Emergency Department on the above date and was hospitalized for further evaluation of their emergent condition. - New Patient This patient is new to me today: No - Critical Care Critical Care patient: No - Discharge Referral Referred to [facility] Med [facility] No - Medication Review Med list reviewed for High Risk Meds patients 65 and older: Yes ATTENDING PHYSICIAN STATEMENT I saw and evaluated the patient. I reviewed the resident's note and discussed the case with the resident. I agree with the resident's findings and plan as documented. SUBJECTIVE: OBJECTIVE: ASSESSMENT AND PLAN:
[2019-12-12] MEDS ORDERED: FUROSEMIDE 100 MG/10 ML INJECTABLE VIAL IVPB ONE (18:31)
[2019-12-12] MEDS ORDERED: FUROSEMIDE 40 MG/4 ML INJECTABLE VIAL ONE (18:34)
[2019-12-12 19:55] LABS: HEMATOCRIT 26.1 % (35.4-49); HEMOGLOBIN 8.7 GM/dL (11.7-16.9); MCH 27.8 pg (25.7-33.7); MCHC 33.5 g/dl (32.0-35.9); MEAN CELL VOLUME 82.9 fl (80-96); MEAN PLT VOLUME 8.4 fl (7.5-11.1); PLATELET COUNT 129 K/MM3 (134-434); RBC 3.14 M/mm3 (4.00-5.60); RDW 17.6 % (11.9-15.9); WHITE BLOOD COUNT 7.9 K/mm3 (4.0-10.0)
[2019-12-12] MEDS: TAMSULOSIN HCL 0.4 MG CAP PO SCH (21:28)
[2019-12-12] MEDS: MELATONIN 5 MG TABLETS PO SCH (21:28)
[2019-12-12] MEDS: ROSUVASTATIN CA 10 MG TABLET (FP) PO SCH (21:28)
[2019-12-12] MEDS: INSULIN (LEVEMIR) 100 UNITS/ML UNITS SQ SCH (23:11)
[2019-12-13] MEDS ORDERED: ACETAMINOPHEN 1000 MG/100 ML VIAL (NON FORMULARY) IVPB ONE (01:11)
[2019-12-13] MEDS: INSULIN SLIDING SCALE (NOVOLOG) 1 VIAL SQ SCH ×4 (06:22→22:00)
[2019-12-13] MEDS: INSULIN (LEVEMIR) 100 UNITS/ML UNITS SQ SCH ×2 (06:22→21:47)
[2019-12-13] MEDS: HEPARIN NA (PORCINE) 5,000 UNITS/ML 1ML VIAL SQ SCH ×3 (06:22→21:46)
[2019-12-13 07:09] LABS: BASO % 0.4 % (0-2.0); EOS % 0.7 % (0-4.5); HEMATOCRIT 25.8 % (35.4-49); HEMOGLOBIN 8.5 GM/dL (11.7-16.9); MCH 27.4 pg (25.7-33.7); MCHC 32.9 g/dl (32.0-35.9); MEAN CELL VOLUME 83.3 fl (80-96); MEAN PLT VOLUME 8.7 fl (7.5-11.1); NEUT % 82.9 % (42.8-82.8); PLATELET COUNT 129 K/MM3 (134-434); RDW 17.8 % (11.9-15.9); WHITE BLOOD COUNT 8.4 K/mm3 (4.0-10.0)
--- NOTE | 2019-12-13 07:17 | PN ---
Progress Note (short form) - Note Progress Note: Chief Complaint: Events noted, notes reviewed, patient denies any dyspnea, patient denies any chest pain History of Present Illness: Seen and examined on telemetry. Events noted, notes reviewed, patient denies any dyspnea, patient denies any chest pain Medications: Current Medications Generic Name Dose Route Start Last Admin Trade Name Freq PRN Reason Stop Dose Admin Albuterol Sulfate 2 puff 12/01/19 16:30 Ventolin Hfa Inhaler - IH Q8H PRN SHORTNESS OF BREATH Budesonide/Formoterol Fumarate 1 puff 12/01/19 22:00 12/12/19 21:32 Symbicort 160/4.5mcg - IH 1 puff BID KADEEM Administration Carvedilol 3.125 mg 12/01/19 22:00 12/12/19 21:28 Coreg - PO 3.125 mg BID KADEEM Administration Clopidogrel Bisulfate 75 mg 12/02/19 14:00 12/12/19 09:53 Plavix - PO 75 mg DAILY KADEEM Administration Docusate Sodium 100 mg 12/01/19 16:30 12/02/19 11:33 Colace - PO 100 mg Q12H PRN Administration CONSTIPATION Escitalopram Oxalate 5 mg 12/10/19 14:29 12/12/19 09:52 Lexapro - PO 5 mg DAILY KADEEM Administration Heparin Sodium (Porcine) 5,000 unit 12/02/19 22:00 12/13/19 06:22 Heparin - SQ 5,000 unit TID KADEEM Administration Insulin Aspart 1 vial 12/05/19 06:00 12/13/19 06:22 Novolog Vial Sliding Scale - SQ Not Given Q6HPO [facility] Protocol Insulin Detemir 2 units 12/12/19 22:00 12/12/19 23:11 Levemir Vial SQ 2 units HS KADEEM Administration Insulin Detemir 5 units 12/13/19 07:00 12/13/19 06:22 Levemir Vial SQ 5 units AM KADEEM Administration Melatonin 10 mg 12/01/19 22:00 12/12/19 21:28 Melatonin PO 10 mg HS KADEEM Administration Pantoprazole Sodium 40 mg 12/04/19 10:00 12/12/19 09:53 Protonix Packets For Oral Suspension - PO 40 mg DAILY KADEEM Administration Rosuvastatin Calcium 10 mg 12/10/19 22:00 12/12/19 21:28 Crestor - PO 10 mg HS KADEEM Administration Tamsulosin HCl 0.4 mg 12/01/19 22:00 12/12/19 21:28 Flomax - PO 0.4 mg HS KADEEM Administration Valsartan 40 mg 12/12/19 11:30 12/12/19 11:50 Diovan - PO 40 mg DAILY KADEEM Administration Review of Systems - Review of Systems Constitutional: denies: Chills, Fever Cardiovascular: As noted above Respiratory: denies: Cough or Sputum Production Gastrointestinal: denies: Nausea, Vomiting, diarrhea, Constipation or Abdominal Pain Musculoskeletal: denies: Joint Pain Neurological: denies: Headache Vital Signs: Last Vital Signs Temp Pulse Resp BP Pulse Ox 87.6 F L 60 20 133/55 L 95 12/13/19 05:18 12/13/19 05:18 12/13/19 05:18 12/13/19 05:18 12/12/19 21:00 Intake & Output 12/10/19 12/11/19 12/12/19 12/13/19 23:59 23:59 23:59 23:59 Intake Total 1120 1560 1010 Output Total 600 1000 300 Balance 520 560 710 Neck: Supple Negative JVD Respiratory: Clear to A&P Bilaterally Cardiovascular: S1 S2 Regular Rate and Rhythm Gastrointestinal: Soft Benign Normal Bowel Sounds Ext: No Edema Labs: CBC, BMP 12/13/19 05:26 12/13/19 05:26 Hepatic Panel Total Bilirubin 0.8 mg/dL (0.2-1) 12/12/19 06:35 AST 91 U/L (15-37) H 12/12/19 06:35 ALT 117 U/L (13-61) H 12/12/19 06:35 Alkaline Phosphatase 155 U/L (45-117) H 12/12/19 06:35 Albumin 2.0 g/dl (3.4-5.0) L 12/12/19 06:35 INR, PTT INR 1.08 (0.83-1.09) 12/01/19 06:40 Assessment/Plan 1. Left femoral neck/hip fracture post intramedullary gamma nail insertion 2. Aspiration pneumonia, clinically resolving 3. Systolic left ventricular dysfunction with chronic class I-II NYHA classifcation LV failure (ischemic dilated cardiomyopathy), clinically compensated/euvolemic- post prophylactic ICD implantation 4. CAD post [place]/CABG/PCI/stent angina pectoris, clinically stable 5. Hypertension, history of orthostatic hypotension- currently off of Northera therapy 6. Diabetes mellitus 7. Hypercholesterolemia 8. 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 COPD 10. CKD 11. Anemia PLAN: 1. Continue Coreg and titrate dosage as tolerated, hemodynamics permitting 2. Continue Diovan therapy and eventual initiation of Entresto therapy with close monitoring of renal function, and titrate dosage as tolerated, hemodynamics permitting 3. Continue Plavix 4. Continue Crestor 5. Patient can be transferred to floor care from the cardiovascular point of view Katharine Mitchell MD
--- NOTE | 2019-12-13 08:02 | PN ---
Progress Note, Physician - Current Medication List Current Medications: Active Medications Albuterol Sulfate (Ventolin Hfa Inhaler -) 2 puff IH Q8H PRN PRN Reason: SHORTNESS OF BREATH Budesonide/Formoterol Fumarate (Symbicort 160/4.5mcg -) 1 puff IH BID [facility] Last Admin: 12/12/19 21:32 Dose: 1 puff Documented by: Carvedilol (Coreg -) 3.125 mg PO BID [facility] Last Admin: 12/12/19 21:28 Dose: 3.125 mg Documented by: Clopidogrel Bisulfate (Plavix -) 75 mg PO DAILY [facility] Last Admin: 12/12/19 09:53 Dose: 75 mg Documented by: Docusate Sodium (Colace -) 100 mg PO Q12H PRN PRN Reason: CONSTIPATION Last Admin: 12/02/19 11:33 Dose: 100 mg Documented by: Escitalopram Oxalate (Lexapro -) 5 mg PO DAILY [facility] Last Admin: 12/12/19 09:52 Dose: 5 mg Documented by: Heparin Sodium (Porcine) (Heparin -) 5,000 unit SQ TID [facility] Last Admin: 12/13/19 06:22 Dose: 5,000 unit Documented by: Insulin Aspart (Novolog Vial Sliding Scale -) 1 vial SQ Q6HPO [facility]; Protocol Last Admin: 12/13/19 06:22 Dose: Not Given Documented by: Insulin Detemir (Levemir Vial) 2 units SQ HS [facility] Last Admin: 12/12/19 23:11 Dose: 2 units Documented by: Insulin Detemir (Levemir Vial) 5 units SQ AM [facility] Last Admin: 12/13/19 06:22 Dose: 5 units Documented by: Melatonin (Melatonin) 10 mg PO [facility] Last Admin: 12/12/19 21:28 Dose: 10 mg Documented by: Pantoprazole Sodium (Protonix Packets For Oral Suspension -) 40 mg PO DAILY [facility] Last Admin: 12/12/19 09:53 Dose: 40 mg Documented by: Rosuvastatin Calcium (Crestor -) 10 mg PO [facility] Last Admin: 12/12/19 21:28 Dose: 10 mg Documented by: Tamsulosin HCl (Flomax -) 0.4 mg PO [facility] Last Admin: 12/12/19 21:28 Dose: 0.4 mg Documented by: Valsartan (Diovan -) 40 mg PO DAILY [facility] Last Admin: 12/12/19 11:50 Dose: 40 mg Documented by: - Objective Vital Signs: Vital Signs Temperature 87.6 F L 12/13/19 05:18 Pulse Rate 60 12/13/19 05:18 Respiratory Rate 20 12/13/19 05:18 Blood Pressure 133/55 L 12/13/19 05:18 O2 Sat by Pulse Oximetry (%) 95 12/12/19 21:00 Labs: CBC, BMP 12/13/19 05:26 INR, PTT INR 1.08 (0.83-1.09) 12/01/19 06:40 Problem List - Problems (1) Anemia Code(s): D64.9 - ANEMIA, UNSPECIFIED Qualifiers: Anemia type: unspecified type Qualified Code(s): D64.9 - Anemia, unspecified (2) Fall Code(s): W19.XXXA - UNSPECIFIED FALL, INITIAL ENCOUNTER Qualifiers: Encounter type: initial encounter Qualified Code(s): W19.XXXA - Unspecified fall, initial encounter (3) Hip fracture, left Code(s): S72.002A - FRACTURE OF UNSP PART OF NECK OF LEFT FEMUR, INIT Qualifiers: Encounter type: initial encounter Fracture type: closed Qualified Code(s): S72.002A - Fracture of unspecified part of neck of left femur, initial encounter for closed fracture (4) Neuropathy Code(s): G62.9 - POLYNEUROPATHY, UNSPECIFIED (5) Syncope Code(s): R55 - SYNCOPE AND COLLAPSE Qualifiers: Syncope type: unspecified Qualified Code(s): R55 - Syncope and collapse (6) Pneumonia Code(s): J18.9 - PNEUMONIA, UNSPECIFIED ORGANISM Qualifiers: Pneumonia type: due to unspecified organism Laterality: unspecified laterality Lung location: unspecified part of lung Qualified Code(s): J18.9 - Pneumonia, unspecified organism (7) Achalasia Code(s): K22.0 - ACHALASIA OF CARDIA (8) BPH (benign prostatic hypertrophy) Code(s): N40.0 - BENIGN PROSTATIC HYPERPLASIA WITHOUT LOWER URINRY TRACT SYMP Qualifiers: Lower urinary tract symptom presence: presence of symptoms unspecified (9) CAD (coronary artery disease) Code(s): I25.10 - ATHSCL HEART DISEASE OF [place] CORONARY ARTERY W/O ANG PCTRS Qualifiers: Coronary Disease-Associated Artery/Lesion type: [place] artery [place] vs. transplanted heart: [place] heart Associated angina: without angina Qualified Code(s): I25.10 - Atherosclerotic heart disease of [place] coronary artery without angina pectoris (10) CKD (chronic kidney disease) stage 3, GFR 30-59 ml/min Code(s): N18.3 - CHRONIC KIDNEY DISEASE, STAGE 3 (MODERATE) (11) COPD (chronic obstructive pulmonary disease) Code(s): J44.9 - CHRONIC OBSTRUCTIVE PULMONARY DISEASE, UNSPECIFIED (12) History of percutaneous coronary intervention Code(s): Z98.890 - OTHER SPECIFIED POSTPROCEDURAL STATES (13) Hx of CABG Code(s): Z95.1 - PRESENCE OF AORTOCORONARY BYPASS GRAFT (14) Hyperlipidemia Code(s): E78.5 - HYPERLIPIDEMIA, UNSPECIFIED Qualifiers: Hyperlipidemia type: pure hypercholesterolemia Qualified Code(s): E78.00 - Pure hypercholesterolemia, unspecified; E78.0 - Pure hypercholesterolemia (15) ICD (implantable cardioverter-defibrillator) in place Code(s): Z95.810 - PRESENCE OF AUTOMATIC (IMPLANTABLE) CARDIAC DEFIBRILLATOR (16) Ischemic cardiomyopathy Code(s): I25.5 - ISCHEMIC CARDIOMYOPATHY (17) Recurrent falls Code(s): R29.6 - REPEATED FALLS (18) Hypertension Code(s): I10 - ESSENTIAL (PRIMARY) HYPERTENSION Qualifiers: Hypertension type: essential hypertension Qualified Code(s): I10 - Essential (primary) hypertension Assessment/Plan IMP RLL PNEUMONIA LIKELY ASPIRATION CHF ASHD S/P CABG,PCI COPD LEFT HIP FX S/P MECHANICAL FALL S/P INTRA-MEDULLARY NAIL ALTERED MENTAL STATUS LIKELY TOXIC METABOLIC ENCEPHALOPATHY NEUROGENIC SYNCOPE DM HLD HTN H/O PUD S/P BILLROTH II H/O ACHALASIA S/P HELLER MYOTOMY ANEMIA HYPERNATREMIA PLAN SUPPLEMENTAL O2 INHALED BRONCHODILATORS ' ABX NORMAL TRANSFUSION THRESHOLD MONITOR LYTES,RENAL FUNCTION,H+H F/U CHEST X-RAYS DR DELVALLE Problem List - Problems (1) Anemia Code(s): D64.9 - ANEMIA, UNSPECIFIED Qualifiers: Anemia type: unspecified type Qualified Code(s): D64.9 - Anemia, unspecified (2) Fall Code(s): W19.XXXA - UNSPECIFIED FALL, INITIAL ENCOUNTER Qualifiers: Encounter type: initial encounter Qualified Code(s): W19.XXXA - Unspecified fall, initial encounter (3) Hip fracture, left Code(s): S72.002A - FRACTURE OF UNSP PART OF NECK OF LEFT FEMUR, INIT Qualifiers: Encounter type: initial encounter Fracture type: closed Qualified Code(s): S72.002A - Fracture of unspecified part of neck of left femur, initial encounter for closed fracture (4) Neuropathy Code(s): G62.9 - POLYNEUROPATHY, UNSPECIFIED (5) Syncope Code(s): R55 - SYNCOPE AND COLLAPSE Qualifiers: Syncope type: unspecified Qualified Code(s): R55 - Syncope and collapse (6) Pneumonia Code(s): J18.9 - PNEUMONIA, UNSPECIFIED ORGANISM Qualifiers: Pneumonia type: due to unspecified organism Laterality: unspecified laterality Lung location: unspecified part of lung Qualified Code(s): J18.9 - Pneumonia, unspecified organism (7) Achalasia Code(s): K22.0 - ACHALASIA OF CARDIA (8) BPH (benign prostatic hypertrophy) Code(s): N40.0 - BENIGN PROSTATIC HYPERPLASIA WITHOUT LOWER URINRY TRACT SYMP Qualifiers: Lower urinary tract symptom presence: presence of symptoms unspecified (9) CAD (coronary artery disease) Code(s): I25.10 - ATHSCL HEART DISEASE OF [place] CORONARY ARTERY W/O ANG PCTRS Qualifiers: Coronary Disease-Associated Artery/Lesion type: [place] artery [place] vs. transplanted heart: [place] heart Associated angina: without angina Qualified Code(s): I25.10 - Atherosclerotic heart disease of [place] coronary artery without angina pectoris (10) CKD (chronic kidney disease) stage 3, GFR 30-59 ml/min Code(s): N18.3 - CHRONIC KIDNEY DISEASE, STAGE 3 (MODERATE) (11) COPD (chronic obstructive pulmonary disease) Code(s): J44.9 - CHRONIC OBSTRUCTIVE PULMONARY DISEASE, UNSPECIFIED (12) History of percutaneous coronary intervention Code(s): Z98.890 - OTHER SPECIFIED POSTPROCEDURAL STATES (13) Hx of CABG Code(s): Z95.1 - PRESENCE OF AORTOCORONARY BYPASS GRAFT (14) Hyperlipidemia Code(s): E78.5 - HYPERLIPIDEMIA, UNSPECIFIED Qualifiers: Hyperlipidemia type: pure hypercholesterolemia Qualified Code(s): E78.00 - Pure hypercholesterolemia, unspecified; E78.0 - Pure hypercholesterolemia (15) ICD (implantable cardioverter-defibrillator) in place Code(s): Z95.810 - PRESENCE OF AUTOMATIC (IMPLANTABLE) CARDIAC DEFIBRILLATOR (16) Ischemic cardiomyopathy Code(s): I25.5 - ISCHEMIC CARDIOMYOPATHY (17) Recurrent falls Code(s): R29.6 - REPEATED FALLS (18) Hypertension Code(s): I10 - ESSENTIAL (PRIMARY) HYPERTENSION Qualifiers: Hypertension type: essential hypertension Qualified Code(s): I10 - Essential (primary) hypertension
[2019-12-13 08:06] LABS: BILIRUBIN,TOTAL 0.8 mg/dL (0.2-1); BLOOD UREA NITROGEN 18.8 mg/dL (7-18); CALCIUM 7.6 mg/dL (8.5-10.1); CREATININE 1.2 mg/dL (0.55-1.3); PHOSPHOROUS 3.2 mg/dL (2.5-4.9); POTASSIUM 3.5 mmol/L (3.5-5.1); TOT PROT 5.4 g/dl (6.4-8.2)
[2019-12-13] MEDS ORDERED: PT OWN MED DRAWER 7, Y5N ONE (09:02)
[2019-12-13] MEDS: ESCITALOPRAM OXALATE 10 MG TABLET PO SCH (09:12)
[2019-12-13] MEDS: CARVEDILOL 3.125 MG TABLET (FP) PO SCH ×2 (09:12→21:46)
[2019-12-13] MEDS: CLOPIDOGREL BISULFATE 75 MG TABLET (FP) PO SCH (09:12)
[2019-12-13] MEDS: VALSARTAN 40 MG TABLET (FP) PO SCH (09:12)
[2019-12-13] MEDS: PANTOPRAZOLE SOD 40 MG SUSPENSION PACKET PO SCH (09:13)
[2019-12-13] MEDS: BUDESONIDE/FORMETEROL FUMARATE 160/4.5 mcg INHALER IH SCH ×2 (09:13→21:55)
[2019-12-13] MEDS ORDERED: DOCUSATE SODIUM 100 MG CAPSULE (FP) PO PRN (11:09)
[2019-12-13] MEDS ORDERED: ALBUTEROL SO4 HFA INHALER IH PRN (11:09)
--- NOTE | 2019-12-13 14:17 | PN ---
Physical Exam: SUBJECTIVE: Patient seen and examined at bedside. The patient is A&Ox2 (to his name and place only). The patient was very sleepy but able to answer some questions. The patient denied fever/chills, shortness of breath, diarrhea, constipation, and nausea. OBJECTIVE: Vital Signs Period Temp Pulse Resp BP Sys/Garcia Pulse Ox Last 24 Hr 87.6 F-98.1 F 59-75 18-20 133-147/52-63 95-98 GENERAL: The patient is A&Ox2 (name and location only), in no acute distress but looking fatigued and sleepy. HEAD: Normal with no signs of trauma. EYES: Extraocular movements intact, sclera anicteric. No ptosis. Pale conjuctiva. Opening eyes when spoken to. ENT: Ears normal, nares patent, oropharynx clear without exudates, dry mucous membranes. NECK: Trachea midline, full range of motion, supple. LUNGS: Decreased breath sounds bilaterally, no accessory muscle use. HEART: Regular rate and rhythm, S1, S2 without murmur, rub or gallop. ABDOMEN: Soft, nontender, nondistended, normoactive bowel sounds, no hepatosplenomegaly. no guarding, no rebound, no masses. EXTREMITIES: 2+ pulses, warm, well-perfused, no edema. NEUROLOGICAL: Normal speech, gait not observed. PSYCH: Normal mood, normal affect. SKIN: Warm, dry, normal turgor, no rashes or lesions noted. Capillary refill <3 seconds; however nails pale/blanched. Laboratory Results - last 24 hr 12/12/19 12/12/19 12/12/19 17:13 19:20 23:09 WBC 7.9 RBC 3.14 L Hgb 8.7 L Hct 26.1 L MCV 82.9 MCH 27.8 MCHC 33.5 RDW 17.6 H Plt Count 129 L MPV 8.4 Absolute Neuts (auto) Neutrophils % Lymphocytes % Monocytes % Eosinophils % Basophils % Nucleated RBC % Sodium Potassium Chloride Carbon Dioxide Anion Gap BUN Creatinine Est GFR (CKD-EPI)AfAm Est GFR (CKD-EPI)NonAf POC Glucometer 346 268 Random Glucose Calcium Phosphorus Magnesium Total Bilirubin AST ALT Alkaline Phosphatase Total Protein Albumin 12/13/19 12/13/19 12/13/19 05:26 05:26 05:31 WBC 8.4 RBC 3.10 L Hgb 8.5 L Hct 25.8 L MCV 83.3 MCH 27.4 MCHC 32.9 RDW 17.8 H Plt Count 129 L MPV 8.7 Absolute Neuts (auto) 7.0 Neutrophils % 82.9 H Lymphocytes % 10.0 Monocytes % 6.0 Eosinophils % 0.7 Basophils % 0.4 Nucleated RBC % 0 Sodium 139 Potassium 3.5 Chloride 106 Carbon Dioxide 23 Anion Gap 9 BUN 18.8 H Creatinine 1.2 Est GFR (CKD-EPI)AfAm 67.20 Est GFR (CKD-EPI)NonAf 57.98 POC Glucometer 174 Random Glucose 182 H Calcium 7.6 L Phosphorus 3.2 Magnesium 2.0 Total Bilirubin 0.8 AST 74 H ALT 110 H Alkaline Phosphatase 146 H Total Protein 5.4 L Albumin 2.0 L 12/13/19 12/13/19 05:34 11:33 WBC RBC Hgb Hct MCV MCH MCHC RDW Plt Count MPV Absolute Neuts (auto) Neutrophils % Lymphocytes % Monocytes % Eosinophils % Basophils % Nucleated RBC % Sodium Potassium Chloride Carbon Dioxide Anion Gap BUN Creatinine Est GFR (CKD-EPI)AfAm Est GFR (CKD-EPI)NonAf POC Glucometer 178 174 Random Glucose Calcium Phosphorus Magnesium Total Bilirubin AST ALT Alkaline Phosphatase Total Protein Albumin Active Medications Generic Name Dose Route Start Last Admin Trade Name Freq PRN Reason Stop Dose Admin Albuterol Sulfate 2 puff 12/13/19 11:09 Ventolin Hfa Inhaler - IH Q8H PRN SHORTNESS OF BREATH Budesonide/Formoterol Fumarate 1 puff 12/13/19 22:00 Symbicort 160/4.5mcg - IH BID KADEEM Carvedilol 3.125 mg 12/13/19 22:00 Coreg - PO BID KADEEM Clopidogrel Bisulfate 75 mg 12/14/19 10:00 Plavix - PO DAILY KADEEM Docusate Sodium 100 mg 12/13/19 11:09 Colace - PO Q12H PRN CONSTIPATION Escitalopram Oxalate 5 mg 12/10/19 14:29 12/13/19 09:12 Lexapro - PO 5 mg DAILY KADEEM Administration Heparin Sodium (Porcine) 5,000 unit 12/13/19 14:00 12/13/19 13:52 Heparin - SQ 5,000 unit TID KADEEM Administration Insulin Aspart 1 vial 12/13/19 12:00 12/13/19 11:34 Novolog Vial Sliding Scale - SQ Not Given Q6HPO [facility] Protocol Insulin Detemir 2 units 12/12/19 22:00 12/12/19 23:11 Levemir Vial SQ 2 units HS K[facility]EM Administration Insulin Detemir 5 units 12/13/19 07:00 12/13/19 06:22 Levemir Vial SQ 5 units AM [facility] Administration Melatonin 10 mg 12/13/19 22:00 Melatonin PO HS KADEEM Pantoprazole Sodium 40 mg 12/14/19 10:00 Protonix Packets For Oral Suspension - PO DAILY K[facility] Rosuvastatin Calcium 10 mg 12/10/19 22:00 12/12/19 21:28 Crestor - PO 10 mg HS KADEEM Administration Tamsulosin HCl 0.4 mg 12/13/19 22:00 Flomax - PO HS KADEEM Valsartan 40 mg 12/12/19 11:30 12/13/19 09:12 Diovan - PO 40 mg DAILY KADEEM Administration ASSESSMENT/PLAN: 79 year old male patient with past medical history that includes Systolic heart failure, CAD s/p PCI, CKD, s/p medtronic ICD, DM, PVD s/p partial gastrectomy, achalasia, penile implant, CABG, HTN, and HLD, who presented to the ED after a fall. 1. Femoral Neck Fracture s/p Intramedullary Nail Surgery - POD 12 - Monitoring for any acute changes 2. Acute Metabolic Encephalopathy secondary to Low Hemoglobin - Hgb at to 8.5 today - Monitoring Hgb - Monitoring Electrolytes - Patient is A&Ox2 today with hallucinations - 1 pRBC transfusion given yesterday 3. APRYL - resolved - Creatinine is trending down from a high of 2.4 to 1.2 today (which is within normal limits) - Monitoring the Creatinine 4. Elevated LFTs - AST 74 (High) - ALT 110 (High) - Alk Phos 146 (WNL) - Total Bilirubin 0.8 (WNL) - Monitoring LFTs 5. Possible Aspiration PNA - resolved - CXR showed a left infiltrate - Ampicillin/Sulbactam completed 6. Systolic CHF - ECHO in 05/2019 showed EF 60-65% - Possible repeat ECHO - Lasix if crackles come back 7. Dehydration - resolved - Sodium 139 (within normal limits) - Chloride 106 (within normal limits) - Monitoring electrolytes 9. Achalasia - The patient has the Soft Diet with [place] Thickened Liquids 10. DM - Novolog sliding scale 11. HTN - Coreg 12. HLD - Rosuvastatin # FEN - Monitoring Electrolytes, Soft Diet with [place] Thickened Liquids DVT PPx - Heparin SQ and Plavix GI PPx - Protonix Visit type - Emergency Visit Emergency Visit: Yes ED Registration Date: 11/30/19 Care time: The patient presented to the Emergency Department on the above date and was hospitalized for further evaluation of their emergent condition. - New Patient This patient is new to me today: No - Critical Care Critical Care patient: No - Discharge Referral Referred to [facility] Med [facility].C[facility] No - Medication Review Med list reviewed for High Risk Meds patients 65 and older: Yes ATTENDING PHYSICIAN STATEMENT I saw and evaluated the patient. I reviewed the resident's note and discussed the case with the resident. I agree with the resident's findings and plan as documented. SUBJECTIVE: OBJECTIVE: ASSESSMENT AND PLAN:
--- NOTE | 2019-12-13 15:04 | PN ---
Teaching Attending Note Name of Resident: Nate Valentino ATTENDING PHYSICIAN STATEMENT I saw and evaluated the patient. I reviewed the resident's note and discussed the case with the resident. I agree with the resident's findings and plan as documented. SUBJECTIVE: Patient resting comfortably. He reports he is tired, does not want to talk to me OBJECTIVE: Vital Signs Period Temp Pulse Resp BP Sys/Garcia Pulse Ox Last 24 Hr 87.6 F-98.3 F 59-75 18-20 133-147/50-63 95-98 patient refused physical exam ASSESSMENT AND PLAN: 79 y/o M who presents after a fall with hip fracture s/p Repair, now complicated by elevated LFTs Altered mental Status: Unclear etiology: check ammonia level Could be due to hospital acquired delerium, initiate non-pharmacological interventions: keep blinds open, advise patient to not sleep all day Elevated LFT Unclear etiology, Dx incudes congestive hepatopathy, SERVIN vs. autoimmune etiolo gy Check 2D echo hepatitis panel trend LFT Check RUQ us, Iron panel Appreciate GI recs hold off on checking ceruloplasmin, alpha 1 antitripsin, DONOVAN, AntiSm Ab, Unlikley medication induced Rest of plan as per resident note
--- NOTE | 2019-12-13 16:12 | ECHO ---
Version: 1 Name: LIAM QUINTEROS Exam: Adult Echocardiogram Study Date: 12/13/2019, 3:32 PM Age: 79 Years MMode/2D Measurements & Calculations IVSd: 1.23 cm LVIDs: 3.5 cm LVIDd: 5.4 cm LVPWd: 1.10 cm LAV (MOD-bp): 85.0 ml ACS: 2.08 cm Ao root diam: 3.5 cm LVOT diam: 2.00 cm LA dimension: 4.2 cm Doppler Measurements & Calculations MV E max praful: 94.3 cm/sec Med E/e': 9.7 MV A max praful: 82.4 cm/sec Med Peak E' Praful: 9.7 cm/sec MV E/A: 1.14 Lat E/e': 10.1 Lat Peak E' Praful: 9.4 cm/sec Ao max P.6 mmHg MASTER(I,D): 2.8 cm Ao mean P.7 mmHg LV V1 mean: 59.6 cm/sec Ao V2 max: 107.2 cm/sec LV V1 mean P.64 mmHg PI end-d praful: 169.7 cm/sec TR max praful: 276.5 cm/sec TR max P.7 mmHg Procedure The study was technically difficult with many images being suboptimal in quality. Left Ventricle The left ventricular size, thickness and function are normal. Ejection Fraction = 55%. Diastolic dys function, Grade II (pseudonormalization pattern). Right Ventricle There is a pacemaker lead in the right ventricle. The right ventricle is normal in size and function . Atria The left atrium is mildly dilated. Right atrial size is normal. Mitral Valve The mitral valve is normal in structure and function. There is no mitral valve stenosis. There is tr reinier mitral regurgitation. Tricuspid Valve The tricuspid valve is normal in structure and function. There is mild tricuspid regurgitation. Righ t ventricular systolic pressure is elevated at 45 mmhg. There is mild pulmonary hypertension. Aortic Valve There is mild aortic sclerosis.;. No hemodynamically significant valvular aortic stenosis. No aortic regurgitation is present. Pulmonic Valve The pulmonic valve is normal in structure and function. Mild pulmonic valvular regurgitation. Great Vessels The aortic root is normal size. Pericardium/Pleura There is no pericardial effusion. Tech Comments Suboptimal Apicals. Patient scanned supine and sleeping. Summary Statements The study was technically difficult with many images being suboptimal in quality. The left ventricular size, thickness and function are normal The right ventricle is normal in size and function. There is a pacemaker lead in the right ventricle . There is mild pulmonary hypertension. Rafa Felton 12/13/2019, 4:12 PM Ordering Physician: Nate Schrader Referring Physician: NATE SCHRADER Performed By: Liana Murray
[2019-12-13] MEDS ORDERED: FUROSEMIDE 20 MG TABLET (FP) PO SCH (16:30)
[2019-12-13] MEDS ORDERED: INSULIN (NOVOLOG) ASPART 100 UNITS/ML 10ML VIAL ONE (17:02)
[2019-12-13] MEDS: ROSUVASTATIN CA 10 MG TABLET (FP) PO SCH (21:47)
[2019-12-13] MEDS: MELATONIN 5 MG TABLETS PO SCH (21:47)
[2019-12-13] MEDS: TAMSULOSIN HCL 0.4 MG CAP PO SCH (21:47)
[2019-12-14] MEDS ORDERED: ACETAMINOPHEN 1000 MG/100 ML VIAL (NON FORMULARY) IVPB PRN (00:12)
[2019-12-14] MEDS ORDERED: INSULIN (NOVOLOG) ASPART 100 UNITS/ML 10ML VIAL ONE (05:53)
[2019-12-14] MEDS: HEPARIN NA (PORCINE) 5,000 UNITS/ML 1ML VIAL SQ SCH ×3 (06:15→21:14)
[2019-12-14] MEDS: INSULIN SLIDING SCALE (NOVOLOG) 1 VIAL SQ SCH ×3 (06:16→17:05)
[2019-12-14] MEDS: INSULIN (LEVEMIR) 100 UNITS/ML UNITS SQ SCH ×2 (06:16→21:15)
[2019-12-14 07:06] LABS: HEMATOCRIT 25.8 % (35.4-49); HEMOGLOBIN 8.5 GM/dL (11.7-16.9); MCHC 32.9 g/dl (32.0-35.9); MEAN CELL VOLUME 82.1 fl (80-96); PLATELET COUNT 145 K/MM3 (134-434); RBC 3.15 M/mm3 (4.00-5.60); RDW 17.7 % (11.9-15.9); WHITE BLOOD COUNT 7.4 K/mm3 (4.0-10.0)
[2019-12-14 07:46] LABS: ALBUMIN 1.9 g/dl (3.4-5.0); BILIRUBIN,TOTAL 0.7 mg/dL (0.2-1); BLOOD UREA NITROGEN 21.1 mg/dL (7-18); CALCIUM 7.8 mg/dL (8.5-10.1); CREATININE 1.2 mg/dL (0.55-1.3); PHOSPHOROUS 2.8 mg/dL (2.5-4.9); POTASSIUM 3.5 mmol/L (3.5-5.1); TOT PROT 5.6 g/dl (6.4-8.2)
[2019-12-14] MEDS: CARVEDILOL 3.125 MG TABLET (FP) PO SCH ×2 (09:29→21:14)
[2019-12-14] MEDS: ESCITALOPRAM OXALATE 10 MG TABLET PO SCH (09:29)
[2019-12-14] MEDS: CLOPIDOGREL BISULFATE 75 MG TABLET (FP) PO SCH (09:29)
[2019-12-14] MEDS: FUROSEMIDE 20 MG TABLET (FP) PO SCH (09:29)
[2019-12-14] MEDS: oxyCODONE HCL 5 MG TABLET PO PRN ×2 (09:30→13:39)
[2019-12-14] MEDS: VALSARTAN 40 MG TABLET (FP) PO SCH (09:31)
[2019-12-14] MEDS: BUDESONIDE/FORMETEROL FUMARATE 160/4.5 mcg INHALER IH SCH ×2 (09:31→21:17)
[2019-12-14] MEDS ORDERED: PANTOPRAZOLE SOD 40 MG SUSPENSION PACKET PO SCH (10:00)
--- NOTE | 2019-12-14 10:25 | PN ---
Progress Note, RESIDENTIAL LIFE DIRECTOR - Note Progress Note: Selected Entries 12/13/19 12/14/19 12/14/19 14:37 05:45 09:26 Breakfast 50% Diet Tolerated Well Fair Lunch 75% Temperature 98.4 F Blood Pressure 129/51 L 12/14/19 10:00 Breakfast 50% Diet Tolerated Fair Lunch Temperature 98 F Blood Pressure 132/52 L Laboratory Tests 12/14/19 06:40 WBC 7.4 MBS-SILENT Aspiration on thin liquid, with no overt signs (no cough, no pt awareness) of aspiration. On soft diet, nectar thick liquids. Water noted at bedside. Pt asked me to leave it there, unaware of mbs results, reviewed before. Forgetful. Saliva expectorated, noticed in cup at bedside.
--- NOTE | 2019-12-14 11:28 | PN ---
Progress Note, Physician History of Present Illness: Afebrile, MBS confirms silent aspiration resulting in post-prandial choking, tolerating lunch with dysphagia diet. Denies recurrent near or true syncope, dyspnea, orthopnea, left hip discomfort adequately controlled. - Current Medication List Current Medications: Active Medications Albuterol Sulfate (Ventolin Hfa Inhaler -) 2 puff IH Q8H PRN PRN Reason: SHORTNESS OF BREATH Budesonide/Formoterol Fumarate (Symbicort 160/4.5mcg -) 1 puff IH BID [facility] Last Admin: 12/14/19 09:31 Dose: 1 puff Documented by: Carvedilol (Coreg -) 3.125 mg PO BID [facility] Last Admin: 12/14/19 09:29 Dose: 3.125 mg Documented by: Clopidogrel Bisulfate (Plavix -) 75 mg PO DAILY [facility] Last Admin: 12/14/19 09:29 Dose: 75 mg Documented by: Docusate Sodium (Colace -) 100 mg PO Q12H PRN PRN Reason: CONSTIPATION Escitalopram Oxalate (Lexapro -) 5 mg PO DAILY [facility] Last Admin: 12/14/19 09:29 Dose: 5 mg Documented by: Furosemide (Lasix -) 20 mg PO DAILY [facility] Last Admin: 12/14/19 09:29 Dose: 20 mg Documented by: Heparin Sodium (Porcine) (Heparin -) 5,000 unit SQ TID [facility] Last Admin: 12/14/19 06:15 Dose: 5,000 unit Documented by: Insulin Aspart (Novolog Vial Sliding Scale -) 1 vial SQ Q6HPO [facility]; Protocol Last Admin: 12/14/19 11:23 Dose: 4 units Documented by: Insulin Detemir (Levemir Vial) 2 units SQ HS [facility] Last Admin: 12/13/19 21:47 Dose: 2 units Documented by: Insulin Detemir (Levemir Vial) 5 units SQ AM [facility] Last Admin: 12/14/19 06:16 Dose: 5 units Documented by: Melatonin (Melatonin) 10 mg PO [facility] Last Admin: 12/13/19 21:47 Dose: 10 mg Documented by: Oxycodone HCl (Roxicodone -) 2.5 mg PO Q4H PRN PRN Reason: PAIN LEVEL 6-10 Last Admin: 12/14/19 09:30 Dose: 2.5 mg Documented by: Pantoprazole Sodium (Protonix Packets For Oral Suspension -) 40 mg PO DAILY [facility] Last Admin: 12/14/19 09:30 Dose: 40 mg Documented by: Rosuvastatin Calcium (Crestor -) 10 mg PO [facility] Last Admin: 12/13/19 21:47 Dose: 10 mg Documented by: Tamsulosin HCl (Flomax -) 0.4 mg PO [facility] Last Admin: 12/13/19 21:47 Dose: 0.4 mg Documented by: Valsartan (Diovan -) 40 mg PO DAILY [facility] Last Admin: 12/14/19 09:31 Dose: 40 mg Documented by: - Objective Vital Signs: Vital Signs Temperature 98 F 12/14/19 10:00 Pulse Rate 83 12/14/19 10:00 Respiratory Rate 20 12/14/19 10:00 Blood Pressure 132/52 L 12/14/19 10:00 O2 Sat by Pulse Oximetry (%) 94 L 12/14/19 10:00 Constitutional: Yes: No Distress, Calm, Thin Neck: Yes: Supple Cardiovascular: Yes: Regular Rate and Rhythm Respiratory: Yes: Regular, CTA Bilaterally Gastrointestinal: Yes: Normal Bowel Sounds, Soft Edema: No Labs: CBC, BMP 12/14/19 06:40 12/14/19 06:40 INR, PTT INR 1.08 (0.83-1.09) 12/01/19 06:40 - ....Imaging Ultrasound: Report Reviewed (12/13/2019 Abd US: s/p cholecystectomy without biliary dilatation, mild fatty liver) Problem List - Problems (1) CAD (coronary artery disease) Code(s): I25.10 - ATHSCL HEART DISEASE OF [place] CORONARY ARTERY W/O ANG PCTRS Qualifiers: Coronary Disease-Associated Artery/Lesion type: [place] artery [place] vs. transplanted heart: [place] heart Associated angina: without angina Qualified Code(s): I25.10 - Atherosclerotic heart disease of [place] coronary artery without angina pectoris (2) COPD (chronic obstructive pulmonary disease) Code(s): J44.9 - CHRONIC OBSTRUCTIVE PULMONARY DISEASE, UNSPECIFIED Qualifiers: COPD type: unspecified COPD Qualified Code(s): J44.9 - Chronic obstructive pulmonary disease, unspecified (3) History of percutaneous coronary intervention Code(s): Z98.890 - OTHER SPECIFIED POSTPROCEDURAL STATES (4) Hx of CABG Code(s): Z95.1 - PRESENCE OF AORTOCORONARY BYPASS GRAFT (5) ICD (implantable cardioverter-defibrillator) in place Code(s): Z95.810 - PRESENCE OF AUTOMATIC (IMPLANTABLE) CARDIAC DEFIBRILLATOR (6) Ischemic cardiomyopathy Code(s): I25.5 - ISCHEMIC CARDIOMYOPATHY (7) Recurrent falls Code(s): R29.6 - REPEATED FALLS (8) Acute on chronic renal insufficiency Code(s): N28.9 - DISORDER OF KIDNEY AND URETER, UNSPECIFIED; N18.9 - CHRONIC KIDNEY DISEASE, UNSPECIFIED (9) Orthostatic hypotension Code(s): I95.1 - ORTHOSTATIC HYPOTENSION Assessment/Plan 12/13/2019 Echo: TDS normal biventricular size and fxn, RVSP 30, pacer wire seen 11/21/2019 Echo: Normal LV size with mild LVH and mild decreased LVEF 45-50%, grade I diastolic dysfunction, mild LAE, tr MR, mild-mod TR, mild DC RVSP 34 mmHg Echocardiography (10/15/18): Moderately reduced LV systolic function, LVEF 40-45%, grade 1 diastolic dysfunction, mild , mild MR, moderate TR, mild DC and pulmonary HTN. 1. s/p Left IM nail for femoral neck hip fracture 2. Aspiration pneumonia, clinically resolving 3. Chronic LV systolic heart failure (ischemic cardiomyopathy EF 45-50%) 4. CAD s/p CO, CABG, PCI/stents, angina pectoris 5. Post ICD implant 6. HTN 7. Hypercholesterolemia 8. T2DM 9. Acute on CKD stage 3 resolved 10. PAD s/p fem-pop bypass and AUDIT SPEC 11. COPD 12. PUD s/p Bilroth II gastrectomy 13. 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 Gout 15. Kidney stones 16. Orthostatic hypotension off Northera 17. Gait disturbance 18. Post-op anemia 19. Hypernatremia resolved PLAN: 1. Completed abx course, outpatient motility studies, needs dysphagia diet 2. Continue Diovan 40 qd and Lasix 20 qd as renal fxn stabilized, continue Plavix 75 mg QD, Coreg 3.125 mg BID and Crestor 10 mg QHS. Monitor orthostasis, has not been taking Northera 100 qd 3. DVT and GI prophylaxis and analgesia as needed 4. Monitor Hgb and transfuse as needed 5. PT as tolerated -> SNF 6. Eventual f/u with Dr. Morales in office
--- NOTE | 2019-12-14 12:15 | PN ---
Progress Note (short form) - Note Progress Note: Resting in NAD on NC O2. Pain seems controlled. No acute events overnight. MBS : silent aspiration. Intake & Output 12/11/19 12/12/19 12/13/19 12/14/19 23:59 23:59 23:59 23:59 Intake Total 1560 1010 75 200 Output Total 1000 300 300 Balance 560 710 -225 200 Weight 175 lb 2 oz Last Vital Signs Temp Pulse Resp BP Pulse Ox 98 F 83 20 132/52 L 94 L 12/14/19 10:00 12/14/19 10:00 12/14/19 10:00 12/14/19 10:00 12/14/19 10:00 Active Medications Albuterol Sulfate (Ventolin Hfa Inhaler -) 2 puff IH Q8H PRN PRN Reason: SHORTNESS OF BREATH Budesonide/Formoterol Fumarate (Symbicort 160/4.5mcg -) 1 puff IH BID [facility] Last Admin: 12/14/19 09:31 Dose: 1 puff Documented by: Carvedilol (Coreg -) 3.125 mg PO BID [facility] Last Admin: 12/14/19 09:29 Dose: 3.125 mg Documented by: Clopidogrel Bisulfate (Plavix -) 75 mg PO DAILY [facility] Last Admin: 12/14/19 09:29 Dose: 75 mg Documented by: Docusate Sodium (Colace -) 100 mg PO Q12H PRN PRN Reason: CONSTIPATION Escitalopram Oxalate (Lexapro -) 5 mg PO DAILY [facility] Last Admin: 12/14/19 09:29 Dose: 5 mg Documented by: Furosemide (Lasix -) 20 mg PO DAILY [facility] Last Admin: 12/14/19 09:29 Dose: 20 mg Documented by: Heparin Sodium (Porcine) (Heparin -) 5,000 unit SQ TID [facility] Last Admin: 12/14/19 06:15 Dose: 5,000 unit Documented by: Insulin Aspart (Novolog Vial Sliding Scale -) 1 vial SQ Q6HPO [facility]; Protocol Last Admin: 12/14/19 11:23 Dose: 4 units Documented by: Insulin Detemir (Levemir Vial) 2 units SQ HS [facility] Last Admin: 12/13/19 21:47 Dose: 2 units Documented by: Insulin Detemir (Levemir Vial) 5 units SQ AM [facility] Last Admin: 12/14/19 06:16 Dose: 5 units Documented by: Melatonin (Melatonin) 10 mg PO [facility] Last Admin: 12/13/19 21:47 Dose: 10 mg Documented by: Oxycodone HCl (Roxicodone -) 2.5 mg PO Q4H PRN PRN Reason: PAIN LEVEL 6-10 Last Admin: 12/14/19 09:30 Dose: 2.5 mg Documented by: Pantoprazole Sodium (Protonix Packets For Oral Suspension -) 40 mg PO DAILY [facility] Last Admin: 12/14/19 09:30 Dose: 40 mg Documented by: Rosuvastatin Calcium (Crestor -) 10 mg PO [facility] Last Admin: 12/13/19 21:47 Dose: 10 mg Documented by: Tamsulosin HCl (Flomax -) 0.4 mg PO [facility] Last Admin: 12/13/19 21:47 Dose: 0.4 mg Documented by: Valsartan (Diovan -) 40 mg PO DAILY [facility] Last Admin: 12/14/19 09:31 Dose: 40 mg Documented by: Constitutional: Yes: NAD Eyes: Yes: WNL HENT: Yes: WNL Neck: Yes: WNL Cardiovascular: Yes: Regular Rate and Rhythm, S1, S2 Respiratory: Yes: Diminished, scattered rhonchi Gastrointestinal: Yes: Normal Bowel Sounds, Soft Extremities: Yes: WNL Edema: No Labs: Laboratory Results - last 24 hr 12/13/19 12/13/19 12/13/19 13:10 16:42 21:43 WBC RBC Hgb Hct MCV MCH MCHC RDW Plt Count MPV Sodium Potassium Chloride Carbon Dioxide Anion Gap BUN Creatinine Est GFR (CKD-EPI)AfAm Est GFR (CKD-EPI)NonAf POC Glucometer 201 189 Random Glucose Calcium Phosphorus Magnesium Total Bilirubin AST ALT Alkaline Phosphatase Total Protein Albumin Hepatitis C Ab (EIA) <0.1 12/14/19 12/14/19 12/14/19 05:47 06:40 06:40 WBC 7.4 RBC 3.15 L Hgb 8.5 L Hct 25.8 L MCV 82.1 MCH 27.0 MCHC 32.9 RDW 17.7 H Plt Count 145 MPV 8.0 Sodium 138 Potassium 3.5 Chloride 106 Carbon Dioxide 27 Anion Gap 5 L BUN 21.1 H Creatinine 1.2 Est GFR (CKD-EPI)AfAm 67.20 Est GFR (CKD-EPI)NonAf 57.98 POC Glucometer 222 Random Glucose 228 H Calcium 7.8 L Phosphorus 2.8 Magnesium 2.0 Total Bilirubin 0.7 AST 96 H ALT 114 H Alkaline Phosphatase 158 H Total Protein 5.6 L Albumin 1.9 L Hepatitis C Ab (EIA) 12/14/19 11:21 WBC RBC Hgb Hct MCV MCH MCHC RDW Plt Count MPV Sodium Potassium Chloride Carbon Dioxide Anion Gap BUN Creatinine Est GFR (CKD-EPI)AfAm Est GFR (CKD-EPI)NonAf POC Glucometer 260 Random Glucose Calcium Phosphorus Magnesium Total Bilirubin AST ALT Alkaline Phosphatase Total Protein Albumin Hepatitis C Ab (EIA) Problem List - Problems (1) Anemia Code(s): D64.9 - ANEMIA, UNSPECIFIED Qualifiers: Anemia type: unspecified type Qualified Code(s): D64.9 - Anemia, unspecified (2) Fall Code(s): W19.XXXA - UNSPECIFIED FALL, INITIAL ENCOUNTER Qualifiers: Encounter type: initial encounter Qualified Code(s): W19.XXXA - Unspecified fall, initial encounter (3) Hip fracture, left Code(s): S72.002A - FRACTURE OF UNSP PART OF NECK OF LEFT FEMUR, INIT Qualifiers: Encounter type: initial encounter Fracture type: closed Qualified Code(s): S72.002A - Fracture of unspecified part of neck of left femur, initial encounter for closed fracture (4) Neuropathy Code(s): G62.9 - POLYNEUROPATHY, UNSPECIFIED (5) Syncope Code(s): R55 - SYNCOPE AND COLLAPSE Qualifiers: Syncope type: unspecified Qualified Code(s): R55 - Syncope and collapse (6) Pneumonia Code(s): J18.9 - PNEUMONIA, UNSPECIFIED ORGANISM Qualifiers: Pneumonia type: due to unspecified organism Laterality: unspecified laterality Lung location: unspecified part of lung Qualified Code(s): J18.9 - Pneumonia, unspecified organism (7) Achalasia Code(s): K22.0 - ACHALASIA OF CARDIA (8) BPH (benign prostatic hypertrophy) Code(s): N40.0 - BENIGN PROSTATIC HYPERPLASIA WITHOUT LOWER URINRY TRACT SYMP Qualifiers: Lower urinary tract symptom presence: presence of symptoms unspecified (9) CAD (coronary artery disease) Code(s): I25.10 - ATHSCL HEART DISEASE OF [place] CORONARY ARTERY W/O ANG PCTRS Qualifiers: Coronary Disease-Associated Artery/Lesion type: [place] artery [place] vs. transplanted heart: [place] heart Associated angina: without angina Qualified Code(s): I25.10 - Atherosclerotic heart disease of [place] coronary artery without angina pectoris (10) CKD (chronic kidney disease) stage 3, GFR 30-59 ml/min Code(s): N18.3 - CHRONIC KIDNEY DISEASE, STAGE 3 (MODERATE) (11) COPD (chronic obstructive pulmonary disease) Code(s): J44.9 - CHRONIC OBSTRUCTIVE PULMONARY DISEASE, UNSPECIFIED (12) History of percutaneous coronary intervention Code(s): Z98.890 - OTHER SPECIFIED POSTPROCEDURAL STATES (13) Hx of CABG Code(s): Z95.1 - PRESENCE OF AORTOCORONARY BYPASS GRAFT (14) Hyperlipidemia Code(s): E78.5 - HYPERLIPIDEMIA, UNSPECIFIED Qualifiers: Hyperlipidemia type: pure hypercholesterolemia Qualified Code(s): E78.00 - Pure hypercholesterolemia, unspecified; E78.0 - Pure hypercholesterolemia (15) ICD (implantable cardioverter-defibrillator) in place Code(s): Z95.810 - PRESENCE OF AUTOMATIC (IMPLANTABLE) CARDIAC DEFIBRILLATOR (16) Ischemic cardiomyopathy Code(s): I25.5 - ISCHEMIC CARDIOMYOPATHY (17) Recurrent falls Code(s): R29.6 - REPEATED FALLS (18) Hypertension Code(s): I10 - ESSENTIAL (PRIMARY) HYPERTENSION Qualifiers: Hypertension type: essential hypertension Qualified Code(s): I10 - Essential (primary) hypertension Assessment/Plan IMP RLL PNEUMONIA LIKELY ASPIRATION CHF ASHD S/P CABG,PCI COPD LEFT HIP FX S/P MECHANICAL FALL S/P INTRA-MEDULLARY NAIL ALTERED MENTAL STATUS LIKELY TOXIC METABOLIC ENCEPHALOPATHY NEUROGENIC SYNCOPE DM HLD HTN H/O PUD S/P BILLROTH II H/O ACHALASIA S/P HELLER MYOTOMY ANEMIA HYPERNATREMIA PLAN SUPPLEMENTAL O2 NEEDED INHALED BRONCHODILATORS ' ABX ASPIRATION PRECAUTIONS NORMAL TRANSFUSION THRESHOLD MONITOR LYTES,RENAL FUNCTION,H+H DR KEENE
--- NOTE | 2019-12-14 14:49 | PN ---
Physical Exam: SUBJECTIVE: Patient seen and examined at bedside in the morning. The patient was much less confused than yesterday, reporting no visual or auditory hallucinations today. The patient reports feeling fatigued and having bilateral ankle pain and left leg, knee, and hip pain since his surgery. OBJECTIVE: Vital Signs Period Temp Pulse Resp BP Sys/Garcia Pulse Ox Last 24 Hr 98 F-98.6 F 65-83 18-20 129-153/51-64 90-96 GENERAL: The patient is less confused today, in no acute distress but sleepy. HEAD: Normal with no signs of trauma. EYES: Extraocular movements intact, sclera anicteric. No ptosis. Pale conjuctiva. Opening eyes when spoken to. ENT: Ears normal, nares patent, oropharynx clear without exudates, dry mucous membranes. NECK: Trachea midline, full range of motion, supple. LUNGS: Decreased breath sounds bilaterally, no accessory muscle use. HEART: Regular rate and rhythm, S1, S2 without murmur, rub or gallop. ABDOMEN: Soft, nontender, nondistended, normoactive bowel sounds, no hepatosplenomegaly. no guarding, no rebound, no masses. EXTREMITIES: 2+ pulses, warm, well-perfused, no edema. NEUROLOGICAL: Normal speech, gait not observed. PSYCH: Normal mood, normal affect. SKIN: Warm, dry, normal turgor, no rashes or lesions noted. Capillary refill <3 seconds; however nails pale/blanched. Laboratory Results - last 24 hr 12/13/19 12/13/19 12/13/19 13:10 16:42 21:43 WBC RBC Hgb Hct MCV MCH MCHC RDW Plt Count MPV Sodium Potassium Chloride Carbon Dioxide Anion Gap BUN Creatinine Est GFR (CKD-EPI)AfAm Est GFR (CKD-EPI)NonAf POC Glucometer 201 189 Random Glucose Calcium Phosphorus Magnesium Total Bilirubin AST ALT Alkaline Phosphatase Total Protein Albumin Hepatitis C Ab (EIA) <0.1 12/14/19 12/14/19 12/14/19 05:47 06:40 06:40 WBC 7.4 RBC 3.15 L Hgb 8.5 L Hct 25.8 L MCV 82.1 MCH 27.0 MCHC 32.9 RDW 17.7 H Plt Count 145 MPV 8.0 Sodium 138 Potassium 3.5 Chloride 106 Carbon Dioxide 27 Anion Gap 5 L BUN 21.1 H Creatinine 1.2 Est GFR (CKD-EPI)AfAm 67.20 Est GFR (CKD-EPI)NonAf 57.98 POC Glucometer 222 Random Glucose 228 H Calcium 7.8 L Phosphorus 2.8 Magnesium 2.0 Total Bilirubin 0.7 AST 96 H ALT 114 H Alkaline Phosphatase 158 H Total Protein 5.6 L Albumin 1.9 L Hepatitis C Ab (EIA) 12/14/19 11:21 WBC RBC Hgb Hct MCV MCH MCHC RDW Plt Count MPV Sodium Potassium Chloride Carbon Dioxide Anion Gap BUN Creatinine Est GFR (CKD-EPI)AfAm Est GFR (CKD-EPI)NonAf POC Glucometer 260 Random Glucose Calcium Phosphorus Magnesium Total Bilirubin AST ALT Alkaline Phosphatase Total Protein Albumin Hepatitis C Ab (EIA) Active Medications Generic Name Dose Route Start Last Admin Trade Name Freq PRN Reason Stop Dose Admin Albuterol Sulfate 2 puff 12/13/19 11:09 Ventolin Hfa Inhaler - IH Q8H PRN SHORTNESS OF BREATH Budesonide/Formoterol Fumarate 1 puff 12/13/19 22:00 12/14/19 09:31 Symbicort 160/4.5mcg - IH 1 puff BID [facility] Administration Carvedilol 3.125 mg 12/13/19 22:00 12/14/19 09:29 Coreg - PO 3.125 mg BID [facility] Administration Clopidogrel Bisulfate 75 mg 12/14/19 10:00 12/14/19 09:29 Plavix - PO 75 mg DAILY [facility] Administration Docusate Sodium 100 mg 12/13/19 11:09 Colace - PO Q12H PRN CONSTIPATION Escitalopram Oxalate 5 mg 12/10/19 14:29 12/14/19 09:29 Lexapro - PO 5 mg DAILY [facility] Administration Furosemide 20 mg 12/14/19 10:00 12/14/19 09:29 Lasix - PO 20 mg DAILY [facility] Administration Heparin Sodium (Porcine) 5,000 unit 12/13/19 14:00 12/14/19 13:15 Heparin - SQ 5,000 unit TID [facility] Administration Insulin Aspart 1 vial 12/13/19 12:00 12/14/19 11:23 Novolog Vial Sliding Scale - SQ 4 units Q6HPO [facility] Administration Protocol Insulin Detemir 2 units 12/12/19 22:00 12/13/19 21:47 Levemir Vial SQ 2 units HS [facility] Administration Insulin Detemir 5 units 12/13/19 07:00 12/14/19 06:16 Levemir Vial SQ 5 units AM [facility] Administration Melatonin 10 mg 12/13/19 22:00 12/13/19 21:47 Melatonin PO 10 mg HS [facility] Administration Oxycodone HCl 2.5 mg 12/14/19 09:13 12/14/19 13:39 Roxicodone - PO 2.5 mg Q4H PRN Administration PAIN LEVEL 6-10 Pantoprazole Sodium 40 mg 12/14/19 10:00 12/14/19 09:30 Protonix Packets For Oral Suspension - PO 40 mg DAILY [facility] Administration Rosuvastatin Calcium 10 mg 12/10/19 22:00 12/13/19 21:47 Crestor - PO 10 mg HS [facility] Administration Tamsulosin HCl 0.4 mg 12/13/19 22:00 12/13/19 21:47 Flomax - PO 0.4 mg HS [facility] Administration Valsartan 40 mg 12/12/19 11:30 12/14/19 09:31 Diovan - PO 40 mg DAILY [facility] Administration ASSESSMENT/PLAN: 79 year old male patient with past medical history that includes CHF, CAD s/p PCI, CKD, s/p medtronic ICD, DM, PVD s/p partial gastrectomy, achalasia, penile implant, CABG, HTN, and HLD, who presented to the ED after a fall. 1. Femoral Neck Fracture s/p Intramedullary Nail Surgery - POD 13 - Monitoring for any acute changes 2. Acute Metabolic Encephalopathy secondary to Low Hemoglobin - Hgb at to 8.5 today - Monitoring Hgb - Monitoring Electrolytes - Patient is less confused today 3. APRYL - resolved - Creatinine is 1.2 today - Monitoring the Creatinine 4. Elevated LFTs - AST 96 (High) - ALT 114 (High) - Alk Phos 158 (High) - Total Bilirubin 0.7 (WNL) - Abdominal U/S showed borderline hepatomegaly with probable mild diffuse fatty infiltration of the liver. - Monitoring LFTs - GI consulted regarding if patient needs a workup for his elevated LFTs 5. Possible Aspiration PNA - resolved - CXR showed a left infiltrate - Ampicillin/Sulbactam completed 6. CHF - ECHO in 05/2019 showed EF 60-65% - Repeat ECHO shows EF 55%, mild pulm htn, and normal right and left ventricles in size and function. - Lasix if crackles come back 7. Dehydration - resolved - Sodium 138 (within normal limits) - Chloride 106 (within normal limits) - Monitoring electrolytes 9. Achalasia - The patient has the Soft Diet with [place] Thickened Liquids 10. DM - Novolog sliding scale 11. HTN - Coreg 12. HLD - Rosuvastatin # FEN - Monitoring Electrolytes, Soft Diet with [place] Thickened Liquids DVT PPx - Heparin SQ and Plavix GI PPx - Protonix Dispo - Monitoring patient's A&O status and waiting for GI regarding if needs a workup for elevated LFTs Visit type - Emergency Visit Emergency Visit: Yes ED Registration Date: 11/30/19 Care time: The patient presented to the Emergency Department on the above date and was hospitalized for further evaluation of their emergent condition. - New Patient This patient is new to me today: No - Critical Care Critical Care patient: No - Discharge Referral Referred to [facility] Med P.C.: No - Medication Review Med list reviewed for High Risk Meds patients 65 and older: Yes ATTENDING PHYSICIAN STATEMENT I saw and evaluated the patient. I reviewed the resident's note and discussed the case with the resident. I agree with the resident's findings and plan as documented. SUBJECTIVE: OBJECTIVE: ASSESSMENT AND PLAN:
--- NOTE | 2019-12-14 16:29 | PN ---
Teaching Attending Note Name of Resident: Nate Valentino ATTENDING PHYSICIAN STATEMENT I saw and evaluated the patient. I reviewed the resident's note and discussed the case with the resident. I agree with the resident's findings and plan as documented. SUBJECTIVE: No complaints this morning OBJECTIVE: Vital Signs Period Temp Pulse Resp BP Sys/Garcia Pulse Ox Last 24 Hr 98 F-98.6 F 64-83 18-20 129-153/51-64 90-96 GENERAL: sleepy no acute distress HEAD: Normal with no signs of trauma. EYES: Extraocular movements intact, sclera anicteric. No ptosis. Pale conjuctiva. Opening eyes when spoken to. ENT: Ears normal, nares patent, oropharynx clear without exudates, dry mucous membranes. NECK: Trachea midline, full range of motion, supple. LUNGS: Decreased breath sounds bilaterally, no accessory muscle use. HEART: Regular rate and rhythm, S1, S2 without murmur, rub or gallop. ABDOMEN: Soft, nontender, nondistended, normoactive bowel sounds, no hepatosplenomegaly. no guarding, no rebound, no masses. EXTREMITIES: 2+ pulses, warm, well-perfused, no edema. NEUROLOGICAL: Normal speech, gait not observed. PSYCH: Normal mood, normal affect. SKIN: Warm, dry, normal turgor, no rashes or lesions noted. Capillary refill <3 seconds; however nails pale/blanched. ASSESSMENT AND PLAN: 79 y/o M who presents with a fall with Hip fracture, s/p repair. now with elevated LFTs Elevated LFT RUQ US Noted hepatitis workup negative Avoid Tylenol at this time Appreciate GI recs re: dispo and further workup (ie ceruloplasmin, alpha 1 antitripsin, DONOVAN, AntiSm Ab) Echo with elevated PASP--backflow can lead to congestion/elevation of LFT CAD s/p CABG, HFpEF Continue plavix, Coreg, Statin, ARB Rest of plan as per resident note
[2019-12-14 19:07] LABS: HEP B CORE AB, TOT Negative (Negative)
[2019-12-14] MEDS: TAMSULOSIN HCL 0.4 MG CAP PO SCH (21:13)
[2019-12-14] MEDS: ROSUVASTATIN CA 10 MG TABLET (FP) PO SCH (21:13)
[2019-12-14] MEDS: MELATONIN 5 MG TABLETS PO SCH (21:15)
[2019-12-14] MEDS: LATANOPROST 0.005% OPHTH SOLN 2.5ML BOTTLE OU SCH (21:17)
--- NOTE | 2019-12-14 23:50 | PN.GI ---
GI Progress Note Subjective: Recalled to evaluate abnormal liver chemistries: AST / ALT were elevated from the and respectively ALP trevor on 12/08 No abdominal pain Main complaint is pain in legs and knee, particularly left knee Received a dose of IV tylenol today - Objective Vital Signs: Vital Signs Temperature 98 F 12/14/19 19:59 Pulse Rate 65 12/14/19 19:59 Respiratory Rate 18 12/14/19 19:59 Blood Pressure 137/58 L 12/14/19 19:59 O2 Sat by Pulse Oximetry (%) 98 12/14/19 21:00 Constitutional: Calm Eyes: No: Sclera Icterus Cardiovascular: Yes: Regular Rate and Rhythm Respiratory: Yes: Diminished (At bases bialterally with poor insp effort) Gastrointestinal Inspection: No: Distention ...Auscultate: Yes: Normoactive Bowel Sounds ...Palpate: No: Hepatomegaly, Tenderness ...Percussion: No: Tympanitic Extremities: Yes: Other (mild edema (? effusion of left knee). tenderness upon palpation of knees bilaterally) Neurological: Yes: Alert Labs: CBC, BMP 12/14/19 06:40 12/14/19 06:40 INR, PTT INR 1.08 (0.83-1.09) 12/01/19 06:40 Hepatic Panel Total Bilirubin 0.7 mg/dL (0.2-1) 12/14/19 06:40 AST 96 U/L (15-37) H 12/14/19 06:40 ALT 114 U/L (13-61) H 12/14/19 06:40 Alkaline Phosphatase 158 U/L (45-117) H 12/14/19 06:40 Albumin 1.9 g/dl (3.4-5.0) L 12/14/19 06:40 Problem List - Problems (1) Abnormal liver function tests Assessment/Plan: Unclear etiology ? if medication received during admission, dose escalation of current medication, alternate etiology aside from liver given his various pain complaints and lower extremity pain Avoid hepatotoxic agents held statin for now stopped PPI for now Avoid hepatotoxic agents. Would defer use of IV tylenol when trying to ascertain cause of abnormal liver chemistries and trend for improvement Ordered CPK and GGT. If CPK elevated, would need evaluation for potential causes Monitor LFTs ? effusion of left knee. Evaluation of knee and LE pain per primary team. Code(s): R94.5 - ABNORMAL RESULTS OF LIVER FUNCTION STUDIES (2) Achalasia Assessment/Plan: Recommendations per S/S Aspiration precautions Code(s): K22.0 - ACHALASIA OF CARDIA (3) Anemia Assessment/Plan: For colonoscopy when acute issues are resolved and when Plavix can be held Hematology evaluation Code(s): D64.9 - ANEMIA, UNSPECIFIED Qualifiers: Anemia type: unspecified type Qualified Code(s): D64.9 - Anemia, unspec ified
[2019-12-15] MEDS: INSULIN SLIDING SCALE (NOVOLOG) 1 VIAL SQ SCH ×5 (00:04→23:11)
[2019-12-15] MEDS: oxyCODONE HCL 5 MG TABLET PO PRN ×3 (01:27→14:17)
[2019-12-15] MEDS: HEPARIN NA (PORCINE) 5,000 UNITS/ML 1ML VIAL SQ SCH ×3 (05:55→21:19)
[2019-12-15] MEDS: INSULIN (LEVEMIR) 100 UNITS/ML UNITS SQ SCH ×2 (06:36→21:18)
[2019-12-15 08:16] LABS: HEMATOCRIT 27.3 % (35.4-49); HEMOGLOBIN 8.9 GM/dL (11.7-16.9); MCH 26.9 pg (25.7-33.7); MCHC 32.8 g/dl (32.0-35.9); MEAN PLT VOLUME 7.9 fl (7.5-11.1); PLATELET COUNT 184 K/MM3 (134-434); RBC 3.33 M/mm3 (4.00-5.60); RDW 18.4 % (11.9-15.9); WHITE BLOOD COUNT 6.9 K/mm3 (4.0-10.0)
[2019-12-15 08:48] LABS: POTASSIUM 4.4 mmol/L (3.5-5.1)
[2019-12-15 08:57] LABS: GAMMA GLUTAMYL TRANSPEPTIDASE 107 U/L (5-85)
[2019-12-15 09:01] LABS: BILIRUBIN,TOTAL 0.7 mg/dL (0.2-1); BLOOD UREA NITROGEN 19.1 mg/dL (7-18); CALCIUM 8.1 mg/dL (8.5-10.1); CREATININE 1.1 mg/dL (0.55-1.3); TOT PROT 5.9 g/dl (6.4-8.2)
--- NOTE | 2019-12-15 09:22 | PN ---
Progress Note, Physician History of Present Illness: Afebrile, MBS confirms silent aspiration resulting in post-prandial choking, tolerating lunch with dysphagia diet. Denies recurrent near or true syncope, dyspnea, orthopnea, tolerated PT. - Current Medication List Current Medications: Active Medications Albuterol Sulfate (Ventolin Hfa Inhaler -) 2 puff IH Q8H PRN PRN Reason: SHORTNESS OF BREATH Budesonide/Formoterol Fumarate (Symbicort 160/4.5mcg -) 1 puff IH BID [facility] Last Admin: 12/14/19 21:17 Dose: 1 puff Documented by: Carvedilol (Coreg -) 3.125 mg PO BID [facility] Last Admin: 12/14/19 21:14 Dose: 3.125 mg Documented by: Clopidogrel Bisulfate (Plavix -) 75 mg PO DAILY [facility] Last Admin: 12/14/19 09:29 Dose: 75 mg Documented by: Docusate Sodium (Colace -) 100 mg PO Q12H PRN PRN Reason: CONSTIPATION Escitalopram Oxalate (Lexapro -) 5 mg PO DAILY [facility] Last Admin: 12/14/19 09:29 Dose: 5 mg Documented by: Furosemide (Lasix -) 20 mg PO DAILY [facility] Last Admin: 12/14/19 09:29 Dose: 20 mg Documented by: Heparin Sodium (Porcine) (Heparin -) 5,000 unit SQ TID [facility] Last Admin: 12/15/19 05:55 Dose: 5,000 unit Documented by: Insulin Aspart (Novolog Vial Sliding Scale -) 1 vial SQ Q6HPO [facility]; Protocol Last Admin: 12/15/19 05:54 Dose: Not Given Documented by: Insulin Detemir (Levemir Vial) 2 units SQ HS [facility] Last Admin: 12/14/19 21:15 Dose: 2 units Documented by: Insulin Detemir (Levemir Vial) 5 units SQ AM [facility] Last Admin: 12/15/19 06:36 Dose: 5 units Documented by: Latanoprost (Xalatan 0.005% Eye Drops -) 1 drop OU HS [facility] Last Admin: 12/14/19 21:17 Dose: 1 drop Documented by: Melatonin (Melatonin) 10 mg PO [facility] Last Admin: 12/14/19 21:15 Dose: 10 mg Documented by: Oxycodone HCl (Roxicodone -) 2.5 mg PO Q4H PRN PRN Reason: PAIN LEVEL 6-10 Last Admin: 12/15/19 09:13 Dose: 2.5 mg Documented by: Tamsulosin HCl (Flomax -) 0.4 mg PO HS [facility] Last Admin: 12/14/19 21:13 Dose: 0.4 mg Documented by: Valsartan (Diovan -) 40 mg PO DAILY [facility] Last Admin: 12/14/19 09:31 Dose: 40 mg Documented by: - Objective Vital Signs: Vital Signs Temperature 98.9 F 12/15/19 05:50 Pulse Rate 68 12/15/19 05:50 Respiratory Rate 18 12/15/19 05:50 Blood Pressure 141/54 L 12/15/19 05:50 O2 Sat by Pulse Oximetry (%) 97 12/15/19 05:50 Constitutional: Yes: No Distress, Calm Neck: Yes: Supple Cardiovascular: Yes: Regular Rate and Rhythm Respiratory: Yes: Regular, CTA Bilaterally Gastrointestinal: Yes: Normal Bowel Sounds, Soft Edema: No Labs: CBC, BMP 12/15/19 07:30 12/15/19 07:30 INR, PTT INR 1.08 (0.83-1.09) 12/01/19 06:40 Problem List - Problems (1) CAD (coronary artery disease) Code(s): I25.10 - ATHSCL HEART DISEASE OF [place] CORONARY ARTERY W/O ANG PCTRS Qualifiers: Coronary Disease-Associated Artery/Lesion type: [place] artery [place] vs. transplanted heart: [place] heart Associated angina: without angina Qualified Code(s): I25.10 - Atherosclerotic heart disease of [place] coronary artery without angina pectoris (2) COPD (chronic obstructive pulmonary disease) Code(s): J44.9 - CHRONIC OBSTRUCTIVE PULMONARY DISEASE, UNSPECIFIED Qualifiers: COPD type: unspecified COPD Qualified Code(s): J44.9 - Chronic obstructive pulmonary disease, unspecified (3) History of percutaneous coronary intervention Code(s): Z98.890 - OTHER SPECIFIED POSTPROCEDURAL STATES (4) Hx of CABG Code(s): Z95.1 - PRESENCE OF AORTOCORONARY BYPASS GRAFT (5) ICD (implantable cardioverter-defibrillator) in place Code(s): Z95.810 - PRESENCE OF AUTOMATIC (IMPLANTABLE) CARDIAC DEFIBRILLATOR (6) Ischemic cardiomyopathy Code(s): I25.5 - ISCHEMIC CARDIOMYOPATHY (7) Recurrent falls Code(s): R29.6 - REPEATED FALLS (8) Acute on chronic renal insufficiency Code(s): N28.9 - DISORDER OF KIDNEY AND URETER, UNSPECIFIED; N18.9 - CHRONIC KIDNEY DISEASE, UNSPECIFIED (9) Orthostatic hypotension Code(s): I95.1 - ORTHOSTATIC HYPOTENSION Assessment/Plan 12/13/2019 Echo: TDS normal biventricular size and fxn, RVSP 30, pacer wire seen 11/21/2019 Echo: Normal LV size with mild LVH and mild decreased LVEF 45-50%, grade I diastolic dysfunction, mild LAE, tr MR, mild-mod TR, mild DE RVSP 34 mmHg Echocardiography (10/15/18): Moderately reduced LV systolic function, LVEF 40-45%, grade 1 diastolic dysfunction, mild , mild MR, moderate TR, mild DE and pulmonary HTN. 1. s/p Left IM nail for femoral neck hip fracture 2. Aspiration pneumonia, clinically resolving 3. Chronic LV systolic heart failure (ischemic cardiomyopathy EF 45-50%) 4. CAD s/p AL, CABG, PCI/stents, angina pectoris 5. Post ICD implant 6. HTN 7. Hypercholesterolemia 8. T2DM 9. Acute on CKD stage 3 resolved 10. PAD s/p fem-pop bypass and [employer] 11. COPD 12. PUD s/p Bilroth II gastrectomy 13. 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 Gout 15. Kidney stones 16. Orthostatic hypotension off Northera 17. Gait disturbance 18. Post-op anemia 19. Hypernatremia resolved 20. Abormal LFTs PLAN: 1. Completed abx course, outpatient motility studies, needs dysphagia diet, trend LFTs and avoid hepatotoxins 2. Continue Diovan 40 qd and Lasix 20 qd as renal fxn stabilized, continue Plavix 75 mg QD, Coreg 3.125 mg BID and Crestor 10 mg QHS. Monitor orthostasis, has not been taking Northera 100 qd 3. DVT and GI prophylaxis and analgesia as needed 4. Monitor Hgb and transfuse as needed 5. PT as tolerated -> SNF 6. Eventual f/u with Dr. Morales in office
[2019-12-15] MEDS ORDERED: oxyCODONE HCL 5 MG TABLET PO ONE (09:26)
[2019-12-15] MEDS ORDERED: PT OWN MED DRAWER 7, Y5N ONE (10:07)
[2019-12-15] MEDS: ESCITALOPRAM OXALATE 10 MG TABLET PO SCH (10:16)
[2019-12-15] MEDS: CLOPIDOGREL BISULFATE 75 MG TABLET (FP) PO SCH (10:16)
[2019-12-15] MEDS: FUROSEMIDE 20 MG TABLET (FP) PO SCH (10:16)
[2019-12-15] MEDS: VALSARTAN 40 MG TABLET (FP) PO SCH (10:17)
[2019-12-15] MEDS: CARVEDILOL 3.125 MG TABLET (FP) PO SCH ×2 (10:17→21:19)
[2019-12-15] MEDS: BUDESONIDE/FORMETEROL FUMARATE 160/4.5 mcg INHALER IH SCH ×2 (10:26→21:19)
[2019-12-15] MEDS: guaiFENesin 600 MG TABLET.ER (FP) PO SCH ×2 (12:02→21:17)
--- NOTE | 2019-12-15 12:08 | PN ---
Progress Note (short form) - Note Progress Note: Resting in NAD on NC O2. No acute events overnight. MBS : silent aspiration. Intake & Output 12/12/19 12/13/19 12/14/19 12/15/19 23:59 23:59 23:59 23:59 Intake Total 1010 75 600 Output Total 300 300 Balance 710 -225 600 Weight 175 lb 2 oz 172 lb 2 oz Last Vital Signs Temp Pulse Resp BP Pulse Ox 99 F 77 18 152/67 92 L 12/15/19 10:00 12/15/19 10:00 12/15/19 10:00 12/15/19 10:00 12/15/19 10:00 Active Medications Albuterol Sulfate (Ventolin Hfa Inhaler -) 2 puff IH Q8H PRN PRN Reason: SHORTNESS OF BREATH Budesonide/Formoterol Fumarate (Symbicort 160/4.5mcg -) 1 puff IH BID [facility] Last Admin: 12/15/19 10:26 Dose: 1 puff Documented by: Carvedilol (Coreg -) 3.125 mg PO BID [facility] Last Admin: 12/15/19 10:17 Dose: 3.125 mg Documented by: Clopidogrel Bisulfate (Plavix -) 75 mg PO DAILY [facility] Last Admin: 12/15/19 10:16 Dose: 75 mg Documented by: Docusate Sodium (Colace -) 100 mg PO Q12H PRN PRN Reason: CONSTIPATION Escitalopram Oxalate (Lexapro -) 5 mg PO DAILY [facility] Last Admin: 12/15/19 10:16 Dose: 5 mg Documented by: Furosemide (Lasix -) 20 mg PO DAILY [facility] Last Admin: 12/15/19 10:16 Dose: 20 mg Documented by: Guaifenesin (Mucinex -) 600 mg PO BID [facility] Last Admin: 12/15/19 12:02 Dose: 600 mg Documented by: Heparin Sodium (Porcine) (Heparin -) 5,000 unit SQ TID [facility] Last Admin: 12/15/19 05:55 Dose: 5,000 unit Documented by: Insulin Aspart (Novolog Vial Sliding Scale -) 1 vial SQ Q6HPO [facility]; Protocol Last Admin: 12/15/19 12:02 Dose: 2 units Documented by: Insulin Detemir (Levemir Vial) 2 units SQ HS [facility] Last Admin: 12/14/19 21:15 Dose: 2 units Documented by: Insulin Detemir (Levemir Vial) 5 units SQ AM [facility] Last Admin: 12/15/19 06:36 Dose: 5 units Documented by: Latanoprost (Xalatan 0.005% Eye Drops -) 1 drop OU [facility] Last Admin: 12/14/19 21:17 Dose: 1 drop Documented by: Melatonin (Melatonin) 10 mg PO [facility] Last Admin: 12/14/19 21:15 Dose: 10 mg Documented by: Oxycodone HCl (Roxicodone -) 2.5 mg PO Q4H PRN PRN Reason: PAIN LEVEL 6-10 Last Admin: 12/15/19 09:13 Dose: 2.5 mg Documented by: Oxycodone HCl (Roxicodone -) 5 mg PO Q4H PRN PRN Reason: PAIN LEVEL 6-10 Tamsulosin HCl (Flomax -) 0.4 mg PO [facility] Last Admin: 12/14/19 21:13 Dose: 0.4 mg Documented by: Valsartan (Diovan -) 40 mg PO DAILY [facility] Last Admin: 12/15/19 10:17 Dose: 40 mg Documented by: Constitutional: Yes: NAD Eyes: Yes: WNL HENT: Yes: WNL Neck: Yes: WNL Cardiovascular: Yes: Regular Rate and Rhythm, S1, S2 Respiratory: Yes: Diminished, scattered rhonchi Gastrointestinal: Yes: Normal Bowel Sounds, Soft Extremities: Yes: WNL Edema: No Labs: Laboratory Results - last 24 hr 12/13/19 12/14/19 12/14/19 13:10 07:30 16:00 WBC RBC Hgb Hct MCV MCH MCHC RDW Plt Count MPV Sodium Potassium Chloride Carbon Dioxide Anion Gap BUN Creatinine Est GFR (CKD-EPI)AfAm Est GFR (CKD-EPI)NonAf POC Glucometer 209 Random Glucose Calcium Phosphorus Magnesium Iron TIBC Iron Saturation Unsaturated IBC Ferritin Total Bilirubin GGT AST ALT Alkaline Phosphatase Ammonia < 10.00 L Creatine Kinase Total Protein Albumin Hep A IgM Ab Confirm Negative Hepatitis A Ab Total Negative Hep Bs Antigen Negative Hep Bs Antibody Non reactive Hep B Core Total Ab Negative Hep B Core IgM Ab Negative Hepatitis Be Antibody Negative Hepatitis Be Antigen Negative 12/14/19 12/15/19 12/15/19 22:20 05:54 07:30 WBC RBC Hgb Hct MCV MCH MCHC RDW Plt Count MPV Sodium 138 Potassium 4.4 Chloride 105 Carbon Dioxide 27 Anion Gap 6 L BUN 19.1 H Creatinine 1.1 Est GFR (CKD-EPI)AfAm 74.65 Est GFR (CKD-EPI)NonAf 64.41 POC Glucometer 189 161 Random Glucose 184 H Calcium 8.1 L Phosphorus 3.0 Magnesium 2.0 Iron 32 L TIBC 167 L Iron Saturation 19 Unsaturated IBC 135 L Ferritin 305.2 Total Bilirubin 0.7 GGT AST 73 H ALT 107 H Alkaline Phosphatase 167 H Ammonia Creatine Kinase Total Protein 5.9 L Albumin 2.0 L Hep A IgM Ab Confirm Hepatitis A Ab Total Hep Bs Antigen Hep Bs Antibody Hep B Core Total Ab Hep B Core IgM Ab Hepatitis Be Antibody Hepatitis Be Antigen 12/15/19 12/15/19 12/15/19 07:30 07:30 12:01 WBC 6.9 RBC 3.33 L Hgb 8.9 L Hct 27.3 L MCV 82.0 MCH 26.9 MCHC 32.8 RDW 18.4 H Plt Count 184 D MPV 7.9 Sodium Potassium Chloride Carbon Dioxide Anion Gap BUN Creatinine Est GFR (CKD-EPI)AfAm Est GFR (CKD-EPI)NonAf POC Glucometer 204 Random Glucose Calcium Phosphorus Magnesium Iron TIBC Iron Saturation Unsaturated IBC Ferritin Total Bilirubin GGT 107 H AST ALT Alkaline Phosphatase Ammonia Creatine Kinase 14 L Total Protein Albumin Hep A IgM Ab Confirm Hepatitis A Ab Total Hep Bs Antigen Hep Bs Antibody Hep B Core Total Ab Hep B Core IgM Ab Hepatitis Be Antibody Hepatitis Be Antigen Problem List - Problems (1) Anemia Code(s): D64.9 - ANEMIA, UNSPECIFIED Qualifiers: Anemia type: unspecified type Qualified Code(s): D64.9 - Anemia, unspecified (2) Fall Code(s): W19.XXXA - UNSPECIFIED FALL, INITIAL ENCOUNTER Qualifiers: Encounter type: initial encounter Qualified Code(s): W19.XXXA - Unspecified fall, initial encounter (3) Hip fracture, left Code(s): S72.002A - FRACTURE OF UNSP PART OF NECK OF LEFT FEMUR, INIT Qualifiers: Encounter type: initial encounter Fracture type: closed Qualified Code(s): S72.002A - Fracture of unspecified part of neck of left femur, initial encounter for closed fracture (4) Neuropathy Code(s): G62.9 - POLYNEUROPATHY, UNSPECIFIED (5) Syncope Code(s): R55 - SYNCOPE AND COLLAPSE Qualifiers: Syncope type: unspecified Qualified Code(s): R55 - Syncope and collapse (6) Pneumonia Code(s): J18.9 - PNEUMONIA, UNSPECIFIED ORGANISM Qualifiers: Pneumonia type: due to unspecified organism Laterality: unspecified laterality Lung location: unspecified part of lung Qualified Code(s): J18.9 - Pneumonia, unspecified organism (7) Achalasia Code(s): K22.0 - ACHALASIA OF CARDIA (8) BPH (benign prostatic hypertrophy) Code(s): N40.0 - BENIGN PROSTATIC HYPERPLASIA WITHOUT LOWER URINRY TRACT SYMP Qualifiers: Lower urinary tract symptom presence: presence of symptoms unspecified (9) CAD (coronary artery disease) Code(s): I25.10 - ATHSCL HEART DISEASE OF [place] CORONARY ARTERY W/O ANG PCTRS Qualifiers: Coronary Disease-Associated Artery/Lesion type: [place] artery [place] vs. transplanted heart: [place] heart Associated angina: without angina Qualified Code(s): I25.10 - Atherosclerotic heart disease of [place] coronary artery without angina pectoris (10) CKD (chronic kidney disease) stage 3, GFR 30-59 ml/min Code(s): N18.3 - CHRONIC KIDNEY DISEASE, STAGE 3 (MODERATE) (11) COPD (chronic obstructive pulmonary disease) Code(s): J44.9 - CHRONIC OBSTRUCTIVE PULMONARY DISEASE, UNSPECIFIED (12) History of percutaneous coronary intervention Code(s): Z98.890 - OTHER SPECIFIED POSTPROCEDURAL STATES (13) Hx of CABG Code(s): Z95.1 - PRESENCE OF AORTOCORONARY BYPASS GRAFT (14) Hyperlipidemia Code(s): E78.5 - HYPERLIPIDEMIA, UNSPECIFIED Qualifiers: Hyperlipidemia type: pure hypercholesterolemia Qualified Code(s): E78.00 - Pure hypercholesterolemia, unspecified; E78.0 - Pure hypercholesterolemia (15) ICD (implantable cardioverter-defibrillator) in place Code(s): Z95.810 - PRESENCE OF AUTOMATIC (IMPLANTABLE) CARDIAC DEFIBRILLATOR (16) Ischemic cardiomyopathy Code(s): I25.5 - ISCHEMIC CARDIOMYOPATHY (17) Recurrent falls Code(s): R29.6 - REPEATED FALLS (18) Hypertension Code(s): I10 - ESSENTIAL (PRIMARY) HYPERTENSION Qualifiers: Hypertension type: essential hypertension Qualified Code(s): I10 - Essential (primary) hypertension Assessment/Plan IMP RLL PNEUMONIA LIKELY ASPIRATION CHF ASHD S/P CABG,PCI COPD LEFT HIP FX S/P MECHANICAL FALL S/P INTRA-MEDULLARY NAIL ALTERED MENTAL STATUS LIKELY TOXIC METABOLIC ENCEPHALOPATHY NEUROGENIC SYNCOPE DM HLD HTN H/O PUD S/P BILLROTH II H/O ACHALASIA S/P HELLER MYOTOMY ANEMIA HYPERNATREMIA PLAN SUPPLEMENTAL O2 NEEDED INHALED BRONCHODILATORS ' ABX ASPIRATION PRECAUTIONS NORMAL TRANSFUSION THRESHOLD MONITOR LYTES,RENAL FUNCTION,H+H DR KEENE
--- NOTE | 2019-12-15 13:29 | PN ---
Progress Note (short form) - Note Progress Note: some improvement in transaminases, bilirubin remains normal. ALP lagging Continue to monitor Other recommendations per 12/13 note If ALP continues to rise, MRCP if patient able to have MRI Problem List - Problems (1) Abnormal liver function tests Code(s): R94.5 - ABNORMAL RESULTS OF LIVER FUNCTION STUDIES (2) Achalasia Code(s): K22.0 - ACHALASIA OF CARDIA (3) Anemia Code(s): D64.9 - ANEMIA, UNSPECIFIED Qualifiers: Anemia type: unspecified type Qualified Code(s): D64.9 - Anemia, unspecified
--- NOTE | 2019-12-15 15:45 | PN ---
Teaching Attending Note Name of Resident: Nate Valentino ATTENDING PHYSICIAN STATEMENT I saw and evaluated the patient. I reviewed the resident's note and discussed the case with the resident. I agree with the resident's findings and plan as documented. SUBJECTIVE: Patient feels well, no abdominal pain, wants to go to rehab OBJECTIVE: Vital Signs Period Temp Pulse Resp BP Sys/Garcia Pulse Ox Last 24 Hr 98 F-99 F 65-77 18-20 120-153/47-72 92-98 GENERAL: Awake, alert, in no acute distress. HEAD: Normal with no signs of trauma. EYES: Pupils equal, round and reactive to light, extraocular movements intact, sclera anicteric, conjunctiva clear. No lid lag. EARS, NOSE, THROAT: Ears normal, nares patent, oropharynx clear without exudates. Moist mucous membranes. NECK: Normal range of motion, supple without lymphadenopathy, JVD, or masses. LUNGS: Breath sounds equal, clear to auscultation bilaterally. No wheezes, and no crackles. No accessory muscle use. HEART: Regular rate and rhythm, normal S1 and S2 without murmur, rub or gallop. ABDOMEN: Soft, nontender, not distended, normoactive bowel sounds, no guarding, no rebound, no masses. No hepatomegaly or splenomegaly. MUSCULOSKELETAL: Normal range of motion at all joints. No bony deformities or tenderness. No CVA tenderness. UPPER EXTREMITIES: 2+ pulses, warm, well-perfused. No cyanosis. No clubbing. Cap refill <2 seconds. No peripheral edema. LOWER EXTREMITIES: 2+ pulses, warm, well-perfused. No calf tenderness. No peripheral edema. NEUROLOGICAL: Cranial nerves II-XII intact. Normal speech. Normal gait. PSYCHIATRIC: Cooperative. . Appropriate mood and affect. SKIN: Warm, dry, normal turgor, no rashes or lesions noted. ASSESSMENT AND PLAN: 79 y/o M who presents with a fall with Hip fracture, s/p repair. now with elevated LFTs Elevated LFT Per Gi: elevated GGT, and rising Alk Phos Will check MRCP at this time Await GI recs for possible dispo Continue to avoid hepatotoxic medications Echo with elevated PASP--backflow can lead to congestion/elevation of LFT CAD s/p CABG, HFpEF Continue plavix, Coreg, Statin, ARB Rest of plan as per resident note
--- NOTE | 2019-12-15 16:18 | PN ---
Physical Exam: SUBJECTIVE: Patient seen and examined at bedside. The patient was spitting up large quantities of spit or vomit with food mixed in. Hard to tell whether the spit was sputum or vomit. The patient is A&Ox2 (name and place), and reports feeling fatigue, but denies fever/chills, hallucinations, diarrhea, and constipation. OBJECTIVE: Vital Signs Period Temp Pulse Resp BP Sys/Garcia Pulse Ox Last 24 Hr 98 F-99 F 65-77 18-20 120-153/47-72 92-98 GENERAL: The patient is A&Ox2 (name and place), spitting/vomiting up sputum with food. HEAD: Normal with no signs of trauma. EYES: Extraocular movements intact, sclera anicteric. No ptosis. Pale conjuctiva. Opening eyes when spoken to. ENT: Ears normal, nares patent, oropharynx clear without exudates, dry mucous membranes. NECK: Trachea midline, full range of motion, supple. LUNGS: Decreased breath sounds bilaterally, no accessory muscle use. No crackles heard. HEART: Regular rate and rhythm, S1, S2 without murmur, rub or gallop. ABDOMEN: Soft, nontender, nondistended, normoactive bowel sounds, no hepatosplenomegaly. no guarding, no rebound, no masses. EXTREMITIES: 2+ pulses, warm, well-perfused, no edema. NEUROLOGICAL: Normal speech, gait not observed. PSYCH: Normal mood, normal affect. SKIN: Warm, dry, normal turgor, no rashes or lesions noted. Capillary refill <3 seconds; however nails pale/blanched. Laboratory Results - last 24 hr 12/12/19 12/13/19 12/14/19 11:03 13:10 22:20 WBC RBC Hgb Hct MCV MCH MCHC RDW Plt Count MPV Sodium Potassium Chloride Carbon Dioxide Anion Gap BUN Creatinine Est GFR (CKD-EPI)AfAm Est GFR (CKD-EPI)NonAf POC Glucometer 189 Random Glucose Calcium Phosphorus Magnesium Iron TIBC Iron Saturation Unsaturated IBC Ferritin Total Bilirubin GGT AST ALT Alkaline Phosphatase Creatine Kinase Total Protein Albumin Hep A IgM Ab Confirm Negative Hepatitis A Ab Total Negative Hep Bs Antigen Negative Hep Bs Antibody Non reactive Hep B Core Total Ab Negative Hep B Core IgM Ab Negative Hepatitis Be Antibody Negative Hepatitis Be Antigen Negative Blood Type A POSITIVE Antibody Screen Negative Crossmatch See Detail 12/15/19 12/15/19 12/15/19 05:54 07:30 07:30 WBC 6.9 RBC 3.33 L Hgb 8.9 L Hct 27.3 L MCV 82.0 MCH 26.9 MCHC 32.8 RDW 18.4 H Plt Count 184 D MPV 7.9 Sodium 138 Potassium 4.4 Chloride 105 Carbon Dioxide 27 Anion Gap 6 L BUN 19.1 H Creatinine 1.1 Est GFR (CKD-EPI)AfAm 74.65 Est GFR (CKD-EPI)NonAf 64.41 POC Glucometer 161 Random Glucose 184 H Calcium 8.1 L Phosphorus 3.0 Magnesium 2.0 Iron 32 L TIBC 167 L Iron Saturation 19 Unsaturated IBC 135 L Ferritin 305.2 Total Bilirubin 0.7 GGT AST 73 H ALT 107 H Alkaline Phosphatase 167 H Creatine Kinase Total Protein 5.9 L Albumin 2.0 L Hep A IgM Ab Confirm Hepatitis A Ab Total Hep Bs Antigen Hep Bs Antibody Hep B Core Total Ab Hep B Core IgM Ab Hepatitis Be Antibody Hepatitis Be Antigen Blood Type Antibody Screen Crossmatch 12/15/19 12/15/19 07:30 12:01 WBC RBC Hgb Hct MCV MCH MCHC RDW Plt Count MPV Sodium Potassium Chloride Carbon Dioxide Anion Gap BUN Creatinine Est GFR (CKD-EPI)AfAm Est GFR (CKD-EPI)NonAf POC Glucometer 204 Random Glucose Calcium Phosphorus Magnesium Iron TIBC Iron Saturation Unsaturated IBC Ferritin Total Bilirubin GGT 107 H AST ALT Alkaline Phosphatase Creatine Kinase 14 L Total Protein Albumin Hep A IgM Ab Confirm Hepatitis A Ab Total Hep Bs Antigen Hep Bs Antibody Hep B Core Total Ab Hep B Core IgM Ab Hepatitis Be Antibody Hepatitis Be Antigen Blood Type Antibody Screen Crossmatch Active Medications Generic Name Dose Route Start Last Admin Trade Name Freq PRN Reason Stop Dose Admin Albuterol Sulfate 2 puff 12/13/19 11:09 Ventolin Hfa Inhaler - IH Q8H PRN SHORTNESS OF BREATH Budesonide/Formoterol Fumarate 1 puff 12/13/19 22:00 12/15/19 10:26 Symbicort 160/4.5mcg - IH 1 puff BID [facility] Administration Carvedilol 3.125 mg 12/13/19 22:00 12/15/19 10:17 Coreg - PO 3.125 mg BID [facility] Administration Clopidogrel Bisulfate 75 mg 12/14/19 10:00 12/15/19 10:16 Plavix - PO 75 mg DAILY [facility] Administration Docusate Sodium 100 mg 12/13/19 11:09 Colace - PO Q12H PRN CONSTIPATION Escitalopram Oxalate 5 mg 12/10/19 14:29 12/15/19 10:16 Lexapro - PO 5 mg DAILY [facility] Administration Furosemide 20 mg 12/14/19 10:00 12/15/19 10:16 Lasix - PO 20 mg DAILY [facility] Administration Guaifenesin 600 mg 12/15/19 11:30 12/15/19 12:02 Mucinex - PO 600 mg BID [facility] Administration Heparin Sodium (Porcine) 5,000 unit 12/13/19 14:00 12/15/19 14:06 Heparin - SQ 5,000 unit TID [facility] Administration Insulin Aspart 1 vial 12/13/19 12:00 12/15/19 12:02 Novolog Vial Sliding Scale - SQ 2 units Q6HPO [facility] Administration Protocol Insulin Detemir 2 units 12/12/19 22:00 12/14/19 21:15 Levemir Vial SQ 2 units HS [facility] Administration Insulin Detemir 5 units 12/13/19 07:00 12/15/19 06:36 Levemir Vial SQ 5 units AM [facility] Administration Latanoprost 1 drop 12/14/19 22:00 12/14/19 21:17 Xalatan 0.005% Eye Drops - OU 1 drop HS [facility] Administration Melatonin 10 mg 12/13/19 22:00 12/14/19 21:15 Melatonin PO 10 mg HS [facility] Administration Oxycodone HCl 5 mg 12/15/19 13:00 12/15/19 14:17 Roxicodone - PO 5 mg Q4H PRN Administration PAIN LEVEL 6-10 Tamsulosin HCl 0.4 mg 12/13/19 22:00 12/14/19 21:13 Flomax - PO 0.4 mg HS [facility] Administration Valsartan 40 mg 12/12/19 11:30 12/15/19 10:17 Diovan - PO 40 mg DAILY [facility] Administration ASSESSMENT/PLAN: 79 year old male patient with past medical history that includes CHF, CAD s/p PCI, CKD, s/p medtronic ICD, DM, PVD s/p partial gastrectomy, achalasia, penile implant, CABG, HTN, and HLD, who presented to the ED after a fall. 1. Femoral Neck Fracture s/p Intramedullary Nail Surgery - Monitoring for any acute changes 2. Acute Metabolic Encephalopathy secondary to Low Hemoglobin - Hgb at to 8.9 today - Monitoring Hgb - Monitoring Electrolytes - Patient is A&Ox2 (name and place) - Monitoring patient's A&O status 3. APRYL - resolved - Creatinine is 1.1 today - Monitoring the Creatinine 4. Elevated LFTs - AST 73 (High) - ALT 107 (High) - Alk Phos 167 (High) - Total Bilirubin 0.7 (WNL) - Abdominal U/S showed borderline hepatomegaly with probable mild diffuse fatty infiltration of the liver. - Monitoring LFTs - GI recommends monitoring and doing a MRCP if patent is able to o a MRI if ALP continues to rise 5. Possible Aspiration PNA - resolved - CXR showed a left infiltrate - Ampicillin/Sulbactam completed - Patient has silent aspiration and was spitting up food today - Monitoring patient for any new aspirations 6. CHF - ECHO in 05/2019 showed EF 60-65% - Repeat ECHO shows EF 55%, mild pulm htn, and normal right and left ventricles in size and function. - Lasix if crackles come back 7. Dehydration - resolved - Sodium 138 (within normal limits) - Chloride 105 (within normal limits) - Monitoring electrolytes 9. Achalasia - The patient has the Soft Diet with [place] Thickened Liquids 10. DM - Novolog sliding scale 11. HTN - Coreg 12. HLD - Statin held # FEN - Monitoring Electrolytes, Soft Diet with [place] Thickened Liquids DVT PPx - Heparin SQ and Plavix Visit type - Emergency Visit Emergency Visit: Yes ED Registration Date: 11/30/19 Care time: The patient presented to the Emergency Department on the above date and was hospitalized for further evaluation of their emergent condition. - New Patient This patient is new to me today: No - Critical Care Critical Care patient: No - Discharge Referral Referred to [facility] Med P.C.: No - Medication Review Med list reviewed for High Risk Meds patients 65 and older: Yes ATTENDING PHYSICIAN STATEMENT I saw and evaluated the patient. I reviewed the resident's note and discussed the case with the resident. I agree with the resident's findings and plan as documented. SUBJECTIVE: OBJECTIVE: ASSESSMENT AND PLAN:
[2019-12-15 19:42] VITALS: BMI 25.4
[2019-12-15] MEDS ORDERED: INSULIN (NOVOLOG) ASPART 100 UNITS/ML 10ML VIAL ONE (20:55)
[2019-12-15] MEDS: MELATONIN 5 MG TABLETS PO SCH (21:18)
[2019-12-15] MEDS: LATANOPROST 0.005% OPHTH SOLN 2.5ML BOTTLE OU SCH (21:19)
[2019-12-15] MEDS: TAMSULOSIN HCL 0.4 MG CAP PO SCH (21:19)
[2019-12-16] MEDS: oxyCODONE HCL 5 MG TABLET PO PRN ×4 (00:54→17:14)
[2019-12-16] MEDS ORDERED: morphine CARPU-JECT 4 MG/1 ML DISP.SYRIN IVPB SCH (03:30)
[2019-12-16] MEDS ORDERED: MORPHINE SULFATE 2 MG/ML VIAL IVPUSH ONE (03:35)
[2019-12-16] MEDS: HEPARIN NA (PORCINE) 5,000 UNITS/ML 1ML VIAL SQ SCH ×3 (05:40→21:17)
[2019-12-16] MEDS: INSULIN SLIDING SCALE (NOVOLOG) 1 VIAL SQ SCH ×4 (05:40→23:50)
[2019-12-16] MEDS: INSULIN (LEVEMIR) 100 UNITS/ML UNITS SQ SCH ×2 (06:22→21:18)
[2019-12-16 07:41] LABS: HEMATOCRIT 25.8 % (35.4-49); HEMOGLOBIN 8.4 GM/dL (11.7-16.9); MCHC 32.7 g/dl (32.0-35.9); MEAN CELL VOLUME 82.5 fl (80-96); MEAN PLT VOLUME 8.1 fl (7.5-11.1); PLATELET COUNT 204 K/MM3 (134-434); RBC 3.13 M/mm3 (4.00-5.60); RDW 18.3 % (11.9-15.9)
[2019-12-16 08:03] LABS: BILIRUBIN,TOTAL 0.7 mg/dL (0.2-1); CREATININE 1.2 mg/dL (0.55-1.3); MAGNESIUM 2.1 mg/dL (1.8-2.4); PHOSPHOROUS 3.8 mg/dL (2.5-4.9); POTASSIUM 4.1 mmol/L (3.5-5.1)
--- NOTE | 2019-12-16 09:32 | PN ---
Progress Note (short form) - Note Progress Note: No acute cardiac events Vital Signs Temperature 98.8 F 12/16/19 06:00 Pulse Rate 66 12/16/19 06:00 Respiratory Rate 18 12/16/19 06:00 Blood Pressure 124/51 L 12/16/19 06:00 O2 Sat by Pulse Oximetry (%) 96 12/16/19 06:00 Cardiovascular: Yes: Regular Rate and Rhythm Respiratory: Yes: Regular, CTA Bilaterally Gastrointestinal: Yes: Normal Bowel Sounds, Soft Edema: No Labs: CBC, BMP 12/16/19 06:45 12/16/19 06:45 Active Medications Albuterol Sulfate (Ventolin Hfa Inhaler -) 2 puff IH Q8H PRN PRN Reason: SHORTNESS OF BREATH Budesonide/Formoterol Fumarate (Symbicort 160/4.5mcg -) 1 puff IH BID [facility] Last Admin: 12/15/19 21:19 Dose: 1 puff Documented by: Carvedilol (Coreg -) 3.125 mg PO BID [facility] Last Admin: 12/15/19 21:19 Dose: 3.125 mg Documented by: Clopidogrel Bisulfate (Plavix -) 75 mg PO DAILY [facility] Last Admin: 12/15/19 10:16 Dose: 75 mg Documented by: Docusate Sodium (Colace -) 100 mg PO Q12H PRN PRN Reason: CONSTIPATION Escitalopram Oxalate (Lexapro -) 5 mg PO DAILY [facility] Last Admin: 12/15/19 10:16 Dose: 5 mg Documented by: Furosemide (Lasix -) 20 mg PO DAILY [facility] Last Admin: 12/15/19 10:16 Dose: 20 mg Documented by: Guaifenesin (Mucinex -) 600 mg PO BID [facility] Last Admin: 12/15/19 21:17 Dose: Not Given Documented by: Heparin Sodium (Porcine) (Heparin -) 5,000 unit SQ TID [facility] Last Admin: 12/16/19 05:40 Dose: 5,000 unit Documented by: Insulin Aspart (Novolog Vial Sliding Scale -) 1 vial SQ Q6HPO [facility]; Protocol Last Admin: 12/16/19 05:40 Dose: Not Given Documented by: Insulin Detemir (Levemir Vial) 2 units SQ HS [facility] Last Admin: 12/15/19 21:18 Dose: 2 units Documented by: Insulin Detemir (Levemir Vial) 5 units SQ AM [facility] Last Admin: 12/16/19 06:22 Dose: 5 units Documented by: Latanoprost (Xalatan 0.005% Eye Drops -) 1 drop OU [facility] Last Admin: 12/15/19 21:19 Dose: 1 drop Documented by: Melatonin (Melatonin) 10 mg PO [facility] Last Admin: 12/15/19 21:18 Dose: 10 mg Documented by: Oxycodone HCl (Roxicodone -) 5 mg PO Q4H PRN PRN Reason: PAIN LEVEL 6-10 Last Admin: 12/16/19 00:54 Dose: 5 mg Documented by: Tamsulosin HCl (Flomax -) 0.4 mg PO [facility] Last Admin: 12/15/19 21:19 Dose: 0.4 mg Documented by: Valsartan (Diovan -) 40 mg PO DAILY [facility] Last Admin: 12/15/19 10:17 Dose: 40 mg Documented by: Problem List - Problems (1) CAD (coronary artery disease) Code(s): I25.10 - ATHSCL HEART DISEASE OF [place] CORONARY ARTERY W/O ANG PCTRS Qualifiers: Coronary Disease-Associated Artery/Lesion type: [place] artery [place] vs. transplanted heart: [place] heart Associated angina: without angina Qualified Code(s): I25.10 - Atherosclerotic heart disease of [place] coronary artery without angina pectoris (2) COPD (chronic obstructive pulmonary disease) Code(s): J44.9 - CHRONIC OBSTRUCTIVE PULMONARY DISEASE, UNSPECIFIED Qualifiers: COPD type: unspecified COPD Qualified Code(s): J44.9 - Chronic obstructive pulmonary disease, unspecified (3) History of percutaneous coronary intervention Code(s): Z98.890 - OTHER SPECIFIED POSTPROCEDURAL STATES (4) Hx of CABG Code(s): Z95.1 - PRESENCE OF AORTOCORONARY BYPASS GRAFT (5) ICD (implantable cardioverter-defibrillator) in place Code(s): Z95.810 - PRESENCE OF AUTOMATIC (IMPLANTABLE) CARDIAC DEFIBRILLATOR (6) Ischemic cardiomyopathy Code(s): I25.5 - ISCHEMIC CARDIOMYOPATHY (7) Recurrent falls Code(s): R29.6 - REPEATED FALLS (8) Acute on chronic renal insufficiency Code(s): N28.9 - DISORDER OF KIDNEY AND URETER, UNSPECIFIED; N18.9 - CHRONIC KIDNEY DISEASE, UNSPECIFIED (9) Orthostatic hypotension Code(s): I95.1 - ORTHOSTATIC HYPOTENSION Assessment/Plan 12/13/2019 Echo: TDS normal biventricular size and fxn, RVSP 30, pacer wire seen 11/21/2019 Echo: Normal LV size with mild LVH and mild decreased LVEF 45-50%, grade I diastolic dysfunction, mild LAE, tr MR, mild-mod TR, mild TN RVSP 34 mmHg Echocardiography (10/15/18): Moderately reduced LV systolic function, LVEF 40-45%, grade 1 diastolic dysfunction, mild , mild MR, moderate TR, mild TN and pulmonary HTN. 1. s/p Left IM nail for femoral neck hip fracture 2. Aspiration pneumonia, clinically resolving 3. Chronic LV systolic heart failure (ischemic cardiomyopathy EF 45-50%) 4. CAD s/p TN, CABG, PCI/stents, angina pectoris 5. Post ICD implant 6. HTN 7. Hypercholesterolemia 8. T2DM 9. Acute on CKD stage 3 resolved 10. PAD s/p fem-pop bypass and [employer] 11. COPD 12. PUD s/p Bilroth II gastrectomy 13. 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 Gout 15. Kidney stones 16. Orthostatic hypotension off Northera 17. Gait disturbance 18. Post-op anemia 19. Hypernatremia resolved 20. Abormal LFTs PLAN: 1. Continue Diovan 40 qd and Lasix 20 qd as renal fxn stabilized, continue Plavix 75 mg QD, Coreg 3.125 mg BID and Crestor 10 mg QHS. Monitor orthostasis, has not been taking Northera 100 qd 3. DVT and GI prophylaxis and analgesia as needed 4. Monitor Hgb and transfuse as needed 5. PT as tolerated -> SNF 6. Eventual f/u with Dr. Morales in office
[2019-12-16] MEDS: FUROSEMIDE 20 MG TABLET (FP) PO SCH (09:56)
[2019-12-16] MEDS: CLOPIDOGREL BISULFATE 75 MG TABLET (FP) PO SCH (09:56)
[2019-12-16] MEDS: ESCITALOPRAM OXALATE 10 MG TABLET PO SCH (09:56)
[2019-12-16] MEDS: CARVEDILOL 3.125 MG TABLET (FP) PO SCH ×2 (09:57→21:16)
[2019-12-16] MEDS: BUDESONIDE/FORMETEROL FUMARATE 160/4.5 mcg INHALER IH SCH ×2 (09:58→21:18)
[2019-12-16] MEDS: guaiFENesin 600 MG TABLET.ER (FP) PO SCH ×2 (09:58→21:18)
--- NOTE | 2019-12-16 10:29 | PN ---
Progress Note, Physician History of Present Illness: pulmonary alert,c/o lower ext pain,-sob - Current Medication List Current Medications: Active Medications Albuterol Sulfate (Ventolin Hfa Inhaler -) 2 puff IH Q8H PRN PRN Reason: SHORTNESS OF BREATH Budesonide/Formoterol Fumarate (Symbicort 160/4.5mcg -) 1 puff IH BID [facility] Last Admin: 12/16/19 09:58 Dose: 1 puff Documented by: Carvedilol (Coreg -) 3.125 mg PO BID [facility] Last Admin: 12/16/19 09:57 Dose: 3.125 mg Documented by: Clopidogrel Bisulfate (Plavix -) 75 mg PO DAILY [facility] Last Admin: 12/16/19 09:56 Dose: 75 mg Documented by: Docusate Sodium (Colace -) 100 mg PO Q12H PRN PRN Reason: CONSTIPATION Escitalopram Oxalate (Lexapro -) 5 mg PO DAILY [facility] Last Admin: 12/16/19 09:56 Dose: 5 mg Documented by: Furosemide (Lasix -) 20 mg PO DAILY [facility] Last Admin: 12/16/19 09:56 Dose: 20 mg Documented by: Guaifenesin (Mucinex -) 600 mg PO BID [facility] Last Admin: 12/16/19 09:58 Dose: 600 mg Documented by: Heparin Sodium (Porcine) (Heparin -) 5,000 unit SQ TID [facility] Last Admin: 12/16/19 05:40 Dose: 5,000 unit Documented by: Insulin Aspart (Novolog Vial Sliding Scale -) 1 vial SQ Q6HPO [facility]; Protocol Last Admin: 12/16/19 05:40 Dose: Not Given Documented by: Insulin Detemir (Levemir Vial) 2 units SQ HS [facility] Last Admin: 12/15/19 21:18 Dose: 2 units Documented by: Insulin Detemir (Levemir Vial) 5 units SQ AM [facility] Last Admin: 12/16/19 06:22 Dose: 5 units Documented by: Latanoprost (Xalatan 0.005% Eye Drops -) 1 drop OU [facility] Last Admin: 12/15/19 21:19 Dose: 1 drop Documented by: Melatonin (Melatonin) 10 mg PO [facility] Last Admin: 12/15/19 21:18 Dose: 10 mg Documented by: Oxycodone HCl (Roxicodone -) 5 mg PO Q4H PRN PRN Reason: PAIN LEVEL 6-10 Last Admin: 12/16/19 09:57 Dose: 5 mg Documented by: Tamsulosin HCl (Flomax -) 0.4 mg PO HS [facility] Last Admin: 12/15/19 21:19 Dose: 0.4 mg Documented by: Valsartan (Diovan -) 40 mg PO DAILY [facility] Last Admin: 12/15/19 10:17 Dose: 40 mg Documented by: - Objective Vital Signs: Vital Signs Temperature 98.8 F 12/16/19 06:00 Pulse Rate 66 12/16/19 06:00 Respiratory Rate 18 12/16/19 06:00 Blood Pressure 124/51 L 12/16/19 06:00 O2 Sat by Pulse Oximetry (%) 96 12/16/19 06:00 Constitutional: Yes: Well Nourished, Calm Eyes: Yes: WNL HENT: Yes: WNL Neck: Yes: WNL Cardiovascular: Yes: Regular Rate and Rhythm, S1, S2 Respiratory: Yes: Diminished Gastrointestinal: Yes: Normal Bowel Sounds, Soft Extremities: Yes: WNL Edema: No Labs: CBC, BMP 12/16/19 06:45 12/16/19 06:45 INR, PTT INR 1.08 (0.83-1.09) 12/01/19 06:40 Problem List - Problems (1) Anemia Code(s): D64.9 - ANEMIA, UNSPECIFIED Qualifiers: Anemia type: unspecified type Qualified Code(s): D64.9 - Anemia, unspecified (2) Fall Code(s): W19.XXXA - UNSPECIFIED FALL, INITIAL ENCOUNTER Qualifiers: Encounter type: initial encounter Qualified Code(s): W19.XXXA - Unspecified fall, initial encounter (3) Hip fracture, left Code(s): S72.002A - FRACTURE OF UNSP PART OF NECK OF LEFT FEMUR, INIT Qualifiers: Encounter type: initial encounter Fracture type: closed Qualified Code(s): S72.002A - Fracture of unspecified part of neck of left femur, initial encounter for closed fracture (4) Neuropathy Code(s): G62.9 - POLYNEUROPATHY, UNSPECIFIED (5) Syncope Code(s): R55 - SYNCOPE AND COLLAPSE Qualifiers: Syncope type: unspecified Qualified Code(s): R55 - Syncope and collapse (6) Pneumonia Code(s): J18.9 - PNEUMONIA, UNSPECIFIED ORGANISM Qualifiers: Pneumonia type: due to unspecified organism Laterality: unspecified laterality Lung location: unspecified part of lung Qualified Code(s): J18.9 - Pneumonia, unspecified organism (7) Achalasia Code(s): K22.0 - ACHALASIA OF CARDIA (8) BPH (benign prostatic hypertrophy) Code(s): N40.0 - BENIGN PROSTATIC HYPERPLASIA WITHOUT LOWER URINRY TRACT SYMP Qualifiers: Lower urinary tract symptom presence: presence of symptoms unspecified (9) CAD (coronary artery disease) Code(s): I25.10 - ATHSCL HEART DISEASE OF [place] CORONARY ARTERY W/O ANG PCTRS Qualifiers: Coronary Disease-Associated Artery/Lesion type: [place] artery [place] vs. transplanted heart: [place] heart Associated angina: without angina Qualified Code(s): I25.10 - Atherosclerotic heart disease of [place] coronary artery without angina pectoris (10) CKD (chronic kidney disease) stage 3, GFR 30-59 ml/min Code(s): N18.3 - CHRONIC KIDNEY DISEASE, STAGE 3 (MODERATE) (11) COPD (chronic obstructive pulmonary disease) Code(s): J44.9 - CHRONIC OBSTRUCTIVE PULMONARY DISEASE, UNSPECIFIED (12) History of percutaneous coronary intervention Code(s): Z98.890 - OTHER SPECIFIED POSTPROCEDURAL STATES (13) Hx of CABG Code(s): Z95.1 - PRESENCE OF AORTOCORONARY BYPASS GRAFT (14) Hyperlipidemia Code(s): E78.5 - HYPERLIPIDEMIA, UNSPECIFIED Qualifiers: Hyperlipidemia type: pure hypercholesterolemia Qualified Code(s): E78.00 - Pure hypercholesterolemia, unspecified; E78.0 - Pure hypercholesterolemia (15) ICD (implantable cardioverter-defibrillator) in place Code(s): Z95.810 - PRESENCE OF AUTOMATIC (IMPLANTABLE) CARDIAC DEFIBRILLATOR (16) Ischemic cardiomyopathy Code(s): I25.5 - ISCHEMIC CARDIOMYOPATHY (17) Recurrent falls Code(s): R29.6 - REPEATED FALLS (18) Hypertension Code(s): I10 - ESSENTIAL (PRIMARY) HYPERTENSION Qualifiers: Hypertension type: essential hypertension Qualified Code(s): I10 - Essential (primary) hypertension Assessment/Plan IMP RLL PNEUMONIA LIKELY ASPIRATION improving CHF ASHD S/P CABG,PCI COPD LEFT HIP FX S/P MECHANICAL FALL S/P INTRA-MEDULLARY NAIL ALTERED MENTAL STATUS LIKELY TOXIC METABOLIC ENCEPHALOPATHY NEUROGENIC SYNCOPE DM HLD HTN H/O PUD S/P BILLROTH II H/O ACHALASIA S/P HELLER MYOTOMY ANEMIA HYPERNATREMIA PLAN SUPPLEMENTAL O2 INHALED BRONCHODILATORS NORMAL TRANSFUSION THRESHOLD MONITOR LYTES,RENAL FUNCTION,H+H F/U CHEST X-RAYS PRN PT DR DELVALLE Problem List - Problems (1) Anemia Code(s): D64.9 - ANEMIA, UNSPECIFIED Qualifiers: Anemia type: unspecified type Qualified Code(s): D64.9 - Anemia, unspe cified (2) Fall Code(s): W19.XXXA - UNSPECIFIED FALL, INITIAL ENCOUNTER Qualifiers: Encounter type: initial encounter Qualified Code(s): W19.XXXA - Unspecified fall, initial encounter (3) Hip fracture, left Code(s): S72.002A - FRACTURE OF UNSP PART OF NECK OF LEFT FEMUR, INIT Qualifiers: Encounter type: initial encounter Fracture type: closed Qualified Code(s): S72.002A - Fracture of unspecified part of neck of left femur, initial encounter for closed fracture (4) Neuropathy Code(s): G62.9 - POLYNEUROPATHY, UNSPECIFIED (5) Syncope Code(s): R55 - SYNCOPE AND COLLAPSE Qualifiers: Syncope type: unspecified Qualified Code(s): R55 - Syncope and collapse (6) Pneumonia Code(s): J18.9 - PNEUMONIA, UNSPECIFIED ORGANISM Qualifiers: Pneumonia type: due to unspecified organism Laterality: unspecified laterality Lung location: unspecified part of lung Qualified Code(s): J18.9 - Pneumonia, unspecified organism (7) Achalasia Code(s): K22.0 - ACHALASIA OF CARDIA (8) BPH (benign prostatic hypertrophy) Code(s): N40.0 - BENIGN PROSTATIC HYPERPLASIA WITHOUT LOWER URINRY TRACT SYMP Qualifiers: Lower urinary tract symptom presence: presence of symptoms unspecified (9) CAD (coronary artery disease) Code(s): I25.10 - ATHSCL HEART DISEASE OF [place] CORONARY ARTERY W/O ANG PCTRS Qualifiers: Coronary Disease-Associated Artery/Lesion type: [place] artery [place] vs. transplanted heart: [place] heart Associated angina: without angina Qualified Code(s): I25.10 - Atherosclerotic heart disease of [place] coronary artery without angina pectoris (10) CKD (chronic kidney disease) stage 3, GFR 30-59 ml/min Code(s): N18.3 - CHRONIC KIDNEY DISEASE, STAGE 3 (MODERATE) (11) COPD (chronic obstructive pulmonary disease) Code(s): J44.9 - CHRONIC OBSTRUCTIVE PULMONARY DISEASE, UNSPECIFIED (12) History of percutaneous coronary intervention Code(s): Z98.890 - OTHER SPECIFIED POSTPROCEDURAL STATES (13) Hx of CABG Code(s): Z95.1 - PRESENCE OF AORTOCORONARY BYPASS GRAFT (14) Hyperlipidemia Code(s): E78.5 - HYPERLIPIDEMIA, UNSPECIFIED Qualifiers: Hyperlipidemia type: pure hypercholesterolemia Qualified Code(s): E78.00 - Pure hypercholesterolemia, unspecified; E78.0 - Pure hypercholesterolemia (15) ICD (implantable cardioverter-defibrillator) in place Code(s): Z95.810 - PRESENCE OF AUTOMATIC (IMPLANTABLE) CARDIAC DEFIBRILLATOR (16) Ischemic cardiomyopathy Code(s): I25.5 - ISCHEMIC CARDIOMYOPATHY (17) Recurrent falls Code(s): R29.6 - REPEATED FALLS (18) Hypertension Code(s): I10 - ESSENTIAL (PRIMARY) HYPERTENSION Qualifiers: Hypertension type: essential hypertension Qualified Code(s): I10 - Essential (primary) hypertension
[2019-12-16] MEDS ORDERED: SODIUM CHLORIDE 500 ML IV SCH (11:00)
[2019-12-16] MEDS ORDERED: PT OWN MED DRAWER 7, Y5N ONE (11:33)
[2019-12-16] MEDS: VALSARTAN 40 MG TABLET (FP) PO SCH (12:11)
[2019-12-16] MEDS ORDERED: morphine SULFATE 4 MG/ML VIAL IVPUSH ONE (14:01)
--- NOTE | 2019-12-16 15:03 | PN ---
Teaching Attending Note Name of Resident: Nate Valentino ATTENDING PHYSICIAN STATEMENT I saw and evaluated the patient. I reviewed the resident's note and discussed the case with the resident. I agree with the resident's findings and plan as documented. SUBJECTIVE: No overnight events, Patient stating he is thirsty decreased secretions this morning in pain OBJECTIVE: Vital Signs Period Temp Pulse Resp BP Sys/Garcia Pulse Ox Last 24 Hr 98.8 F-100.1 F 65-79 18-18 113-133/48-67 95-97 patient refused physical exam ASSESSMENT AND PLAN: 79 y/o M who presents with a fall with Hip fracture, s/p repair. now with elevated LFTs Elevated LFT: Appear to be stabilizing Check MRCP at this time, if normal, will look to discharge with outpatient follow up of LFTs Continue to avoid hepatotoxic medications Echo with elevated PASP--backflow can lead to congestion/elevation of LFT CAD s/p CABG, HFpEF Continue plavix, Coreg, Statin, ARB Rest of plan as per resident note
--- NOTE | 2019-12-16 17:40 | PN ---
Physical Exam: SUBJECTIVE: Patient seen and examined at bedside. The patient reports feeling dehydrated. The patient denies fever/chills, shortness of breath, nausea, vomiting, hallucinations, and bowel or bladder complaints. The patient is A&Ox2 (name and place). Discharge to [facility] discussed with patient and patient's . Discharge to [facility] tomorrow okay per patient and patient's , but patient's wants to be notified when the patient will be going. Patient's was also confused as to when to schedule the colonoscopy. OBJECTIVE: Vital Signs Period Temp Pulse Resp BP Sys/Garcia Pulse Ox Last 24 Hr 98.0 F-100.1 F 65-91 16-18 113-154/48-75 95-100 GENERAL: The patient is A&Ox2 (name and place), spitting/vomiting up sputum with food. HEAD: Normal with no signs of trauma. EYES: Extraocular movements intact, sclera anicteric. No ptosis. Pale conjuctiva. Opening eyes when spoken to. ENT: Ears normal, nares patent, oropharynx clear without exudates, dry mucous membranes. NECK: Trachea midline, full range of motion, supple. LUNGS: Decreased breath sounds bilaterally, no accessory muscle use. No crackles heard. HEART: Regular rate and rhythm, S1, S2 without murmur, rub or gallop. ABDOMEN: Soft, nontender, nondistended, normoactive bowel sounds, no hepatosplenomegaly. no guarding, no rebound, no masses. EXTREMITIES: 2+ pulses, warm, well-perfused, no edema. NEUROLOGICAL: Normal speech, gait not observed. PSYCH: Normal mood, normal affect. SKIN: Warm, dry, normal turgor, no rashes or lesions noted. Capillary refill <3 seconds; however nails pale/blanched. Laboratory Results - last 24 hr 12/15/19 12/16/19 12/16/19 21:14 05:38 06:45 WBC 7.0 RBC 3.13 L Hgb 8.4 L Hct 25.8 L MCV 82.5 MCH 27.0 MCHC 32.7 RDW 18.3 H Plt Count 204 MPV 8.1 Sodium Potassium Chloride Carbon Dioxide Anion Gap BUN Creatinine Est GFR (CKD-EPI)AfAm Est GFR (CKD-EPI)NonAf POC Glucometer 187 182 Random Glucose Calcium Phosphorus Magnesium Total Bilirubin AST ALT Alkaline Phosphatase Total Protein Albumin 12/16/19 12/16/19 12/16/19 06:45 10:04 17:11 WBC RBC Hgb Hct MCV MCH MCHC RDW Plt Count MPV Sodium 141 Potassium 4.1 Chloride 106 Carbon Dioxide 25 Anion Gap 9 BUN 21.0 H Creatinine 1.2 Est GFR (CKD-EPI)AfAm 67.20 Est GFR (CKD-EPI)NonAf 57.98 POC Glucometer 157 303 Random Glucose 173 H Calcium 8.0 L Phosphorus 3.8 Magnesium 2.1 Total Bilirubin 0.7 AST 80 H ALT 107 H Alkaline Phosphatase 171 H Total Protein 6.0 L Albumin 2.0 L Active Medications Generic Name Dose Route Start Last Admin Trade Name Freq PRN Reason Stop Dose Admin Albuterol Sulfate 2 puff 12/13/19 11:09 Ventolin Hfa Inhaler - IH Q8H PRN SHORTNESS OF BREATH Budesonide/Formoterol Fumarate 1 puff 12/13/19 22:00 12/16/19 09:58 Symbicort 160/4.5mcg - IH 1 puff BID [facility] Administration Carvedilol 3.125 mg 12/13/19 22:00 12/16/19 09:57 Coreg - PO 3.125 mg BID [facility] Administration Clopidogrel Bisulfate 75 mg 12/14/19 10:00 12/16/19 09:56 Plavix - PO 75 mg DAILY [facility] Administration Docusate Sodium 100 mg 12/13/19 11:09 Colace - PO Q12H PRN CONSTIPATION Escitalopram Oxalate 5 mg 12/10/19 14:29 12/16/19 09:56 Lexapro - PO 5 mg DAILY [facility] Administration Furosemide 20 mg 12/14/19 10:00 12/16/19 09:56 Lasix - PO 20 mg DAILY [facility] Administration Guaifenesin 600 mg 12/15/19 11:30 12/16/19 09:58 Mucinex - PO 600 mg BID [facility] Administration Heparin Sodium (Porcine) 5,000 unit 12/13/19 14:00 12/16/19 13:20 Heparin - SQ 5,000 unit TID [facility] Administration Sodium Chloride 500 mls @ 75 mls/hr 12/16/19 11:00 12/16/19 12:11 Normal Saline - IV 08/07/20 17:39 75 mls/hr ASDIR KADEEM Administration Insulin Aspart 1 vial 12/13/19 12:00 12/16/19 17:12 Novolog Vial Sliding Scale - SQ 6 units Q6HPO [facility] Administration Protocol Insulin Detemir 2 units 12/12/19 22:00 12/15/19 21:18 Levemir Vial SQ 2 units HS [facility] Administration Insulin Detemir 5 units 12/13/19 07:00 12/16/19 06:22 Levemir Vial SQ 5 units AM [facility] Administration Latanoprost 1 drop 12/14/19 22:00 12/15/19 21:19 Xalatan 0.005% Eye Drops - OU 1 drop HS [facility] Administration Melatonin 10 mg 12/13/19 22:00 12/15/19 21:18 Melatonin PO 10 mg HS [facility] Administration Oxycodone HCl 5 mg 12/15/19 13:00 12/16/19 17:14 Roxicodone - PO 5 mg Q4H PRN Administration PAIN LEVEL 6-10 Tamsulosin HCl 0.4 mg 12/13/19 22:00 12/15/19 21:19 Flomax - PO 0.4 mg HS [facility] Administration Valsartan 40 mg 12/12/19 11:30 12/16/19 12:11 Diovan - PO 40 mg DAILY [facility] Administration ASSESSMENT/PLAN: 79 year old male patient with past medical history that includes CHF, CAD s/p PCI, CKD, s/p medtronic ICD, DM, PVD s/p partial gastrectomy, achalasia, penile implant, CABG, HTN, and HLD, who presented to the ED after a fall. 1. Femoral Neck Fracture s/p Intramedullary Nail Surgery - Monitoring for any acute changes 2. Acute Metabolic Encephalopathy secondary to Low Hemoglobin - Hgb at to 8.4 today - Monitoring Hgb - Monitoring Electrolytes - Patient is A&Ox2 (name and place) - Monitoring patient's A&O status 3. APRYL - resolved - Creatinine is 1.2 today - Monitoring the Creatinine 4. Elevated LFTs - AST 80 (High) - ALT 107 (High) - Alk Phos 171 (High) - Total Bilirubin 0.7 (WNL) - Abdominal U/S showed borderline hepatomegaly with probable mild diffuse fatty infiltration of the liver. - Monitoring LFTs - MRCP could not be done due to non-MRI compatible items in the patient 5. Possible Aspiration PNA - resolved - CXR showed a left infiltrate - Ampicillin/Sulbactam completed - Patient has silent aspiration and was spitting up food today - Monitoring patient for any new aspirations 6. CHF - ECHO in 05/2019 showed EF 60-65% - Repeat ECHO shows EF 55%, mild pulm htn, and normal right and left ventricles in size and function. - Lasix if crackles come back 7. Dehydration - resolved - Sodium 141 (within normal limits) - Chloride 106 (within normal limits) - Monitoring electrolytes - Gave 1/2 liter NS today - Soft Diet with [place] Thickened Liquids 9. Achalasia - The patient has the Soft Diet with [place] Thickened Liquids 10. DM - Novolog sliding scale 11. HTN - Coreg 12. HLD - Statin held # FEN - Monitoring Electrolytes, Soft Diet with [place] Thickened Liquids DVT PPx - Heparin SQ and Plavix Dispo - Likely discharge tomorrow Visit type - Emergency Visit Emergency Visit: Yes ED Registration Date: 11/30/19 Care time: The patient presented to the Emergency Department on the above date and was hospitalized for further evaluation of their emergent condition. - New Patient This patient is new to me today: No - Critical Care Critical Care patient: No - Discharge Referral Referred to [facility] Med P.C.: No - Medication Review Med list reviewed for High Risk Meds patients 65 and older: Yes ATTENDING PHYSICIAN STATEMENT I saw and evaluated the patient. I reviewed the resident's note and discussed the case with the resident. I agree with the resident's findings and plan as documented. SUBJECTIVE: OBJECTIVE: ASSESSMENT AND PLAN:
[2019-12-16] MEDS: TAMSULOSIN HCL 0.4 MG CAP PO SCH (21:16)
[2019-12-16] MEDS: LATANOPROST 0.005% OPHTH SOLN 2.5ML BOTTLE OU SCH (21:18)
[2019-12-16] MEDS: MELATONIN 5 MG TABLETS PO SCH (21:18)
[2019-12-17] MEDS: oxyCODONE HCL 5 MG TABLET PO PRN ×4 (04:10→23:49)
[2019-12-17] MEDS: INSULIN (LEVEMIR) 100 UNITS/ML UNITS SQ SCH ×2 (06:02→21:51)
[2019-12-17] MEDS: HEPARIN NA (PORCINE) 5,000 UNITS/ML 1ML VIAL SQ SCH ×3 (06:02→21:35)
[2019-12-17] MEDS: INSULIN SLIDING SCALE (NOVOLOG) 1 VIAL SQ SCH ×4 (06:02→23:20)
--- NOTE | 2019-12-17 07:57 | PN ---
Progress Note, Physician History of Present Illness: PULMONARY ALERT,COMFORTABLE,-SOB,+ LOWER EXT DISCOMFORT - Current Medication List Current Medications: Active Medications Albuterol Sulfate (Ventolin Hfa Inhaler -) 2 puff IH Q8H PRN PRN Reason: SHORTNESS OF BREATH Budesonide/Formoterol Fumarate (Symbicort 160/4.5mcg -) 1 puff IH BID [facility] Last Admin: 12/16/19 21:18 Dose: 1 puff Documented by: Carvedilol (Coreg -) 3.125 mg PO BID [facility] Last Admin: 12/16/19 21:16 Dose: 3.125 mg Documented by: Clopidogrel Bisulfate (Plavix -) 75 mg PO DAILY [facility] Last Admin: 12/16/19 09:56 Dose: 75 mg Documented by: Docusate Sodium (Colace -) 100 mg PO Q12H PRN PRN Reason: CONSTIPATION Escitalopram Oxalate (Lexapro -) 5 mg PO DAILY [facility] Last Admin: 12/16/19 09:56 Dose: 5 mg Documented by: Furosemide (Lasix -) 20 mg PO DAILY [facility] Last Admin: 12/16/19 09:56 Dose: 20 mg Documented by: Guaifenesin (Mucinex -) 600 mg PO BID [facility] Last Admin: 12/16/19 21:18 Dose: 600 mg Documented by: Heparin Sodium (Porcine) (Heparin -) 5,000 unit SQ TID [facility] Last Admin: 12/17/19 06:02 Dose: 5,000 unit Documented by: Insulin Aspart (Novolog Vial Sliding Scale -) 1 vial SQ Q6HPO [facility]; Protocol Last Admin: 12/17/19 06:02 Dose: 2 units Documented by: Insulin Detemir (Levemir Vial) 2 units SQ HS [facility] Last Admin: 12/16/19 21:18 Dose: 2 units Documented by: Insulin Detemir (Levemir Vial) 5 units SQ AM [facility] Last Admin: 12/17/19 06:02 Dose: 5 units Documented by: Latanoprost (Xalatan 0.005% Eye Drops -) 1 drop OU [facility] Last Admin: 12/16/19 21:18 Dose: 1 drop Documented by: Melatonin (Melatonin) 10 mg PO [facility] Last Admin: 12/16/19 21:18 Dose: 10 mg Documented by: Oxycodone HCl (Roxicodone -) 5 mg PO Q4H PRN PRN Reason: PAIN LEVEL 6-10 Last Admin: 12/17/19 04:10 Dose: 5 mg Documented by: Tamsulosin HCl (Flomax -) 0.4 mg PO HS [facility] Last Admin: 12/16/19 21:16 Dose: 0.4 mg Documented by: Valsartan (Diovan -) 40 mg PO DAILY [facility] Last Admin: 12/16/19 12:11 Dose: 40 mg Documented by: - Objective Vital Signs: Vital Signs Temperature 98.5 F 12/17/19 05:50 Pulse Rate 72 12/17/19 05:50 Respiratory Rate 18 12/17/19 05:50 Blood Pressure 119/51 L 12/17/19 05:50 O2 Sat by Pulse Oximetry (%) 96 12/17/19 05:50 Constitutional: Yes: Well Nourished, Calm Eyes: Yes: WNL HENT: Yes: WNL Neck: Yes: WNL Cardiovascular: Yes: Regular Rate and Rhythm, S1, S2 Respiratory: Yes: Rales (FEW BIBASILAR CRACKLES) Gastrointestinal: Yes: Normal Bowel Sounds, Soft Extremities: Yes: WNL Edema: No Labs: CBC, BMP 12/16/19 06:45 12/16/19 06:45 INR, PTT INR 1.08 (0.83-1.09) 12/01/19 06:40 Problem List - Problems (1) Anemia Code(s): D64.9 - ANEMIA, UNSPECIFIED Qualifiers: Anemia type: unspecified type Qualified Code(s): D64.9 - Anemia, unspecified (2) Fall Code(s): W19.XXXA - UNSPECIFIED FALL, INITIAL ENCOUNTER Qualifiers: Encounter type: initial encounter Qualified Code(s): W19.XXXA - Unspecified fall, initial encounter (3) Hip fracture, left Code(s): S72.002A - FRACTURE OF UNSP PART OF NECK OF LEFT FEMUR, INIT Qualifiers: Encounter type: initial encounter Fracture type: closed Qualified Code(s): S72.002A - Fracture of unspecified part of neck of left femur, initial encounter for closed fracture (4) Neuropathy Code(s): G62.9 - POLYNEUROPATHY, UNSPECIFIED (5) Syncope Code(s): R55 - SYNCOPE AND COLLAPSE Qualifiers: Syncope type: unspecified Qualified Code(s): R55 - Syncope and collapse (6) Pneumonia Code(s): J18.9 - PNEUMONIA, UNSPECIFIED ORGANISM Qualifiers: Pneumonia type: due to unspecified organism Laterality: unspecified laterality Lung location: unspecified part of lung Qualified Code(s): J18.9 - Pneumonia, unspecified organism (7) Achalasia Code(s): K22.0 - ACHALASIA OF CARDIA (8) BPH (benign prostatic hypertrophy) Code(s): N40.0 - BENIGN PROSTATIC HYPERPLASIA WITHOUT LOWER URINRY TRACT SYMP Qualifiers: Lower urinary tract symptom presence: presence of symptoms unspecified (9) CAD (coronary artery disease) Code(s): I25.10 - ATHSCL HEART DISEASE OF [place] CORONARY ARTERY W/O ANG PCTRS Qualifiers: Coronary Disease-Associated Artery/Lesion type: [place] artery [place] vs. transplanted heart: [place] heart Associated angina: without angina Qualified Code(s): I25.10 - Atherosclerotic heart disease of [place] coronary artery without angina pectoris (10) CKD (chronic kidney disease) stage 3, GFR 30-59 ml/min Code(s): N18.3 - CHRONIC KIDNEY DISEASE, STAGE 3 (MODERATE) (11) COPD (chronic obstructive pulmonary disease) Code(s): J44.9 - CHRONIC OBSTRUCTIVE PULMONARY DISEASE, UNSPECIFIED (12) History of percutaneous coronary intervention Code(s): Z98.890 - OTHER SPECIFIED POSTPROCEDURAL STATES (13) Hx of CABG Code(s): Z95.1 - PRESENCE OF AORTOCORONARY BYPASS GRAFT (14) Hyperlipidemia Code(s): E78.5 - HYPERLIPIDEMIA, UNSPECIFIED Qualifiers: Hyperlipidemia type: pure hypercholesterolemia Qualified Code(s): E78.00 - Pure hypercholesterolemia, unspecified; E78.0 - Pure hypercholesterolemia (15) ICD (implantable cardioverter-defibrillator) in place Code(s): Z95.810 - PRESENCE OF AUTOMATIC (IMPLANTABLE) CARDIAC DEFIBRILLATOR (16) Ischemic cardiomyopathy Code(s): I25.5 - ISCHEMIC CARDIOMYOPATHY (17) Recurrent falls Code(s): R29.6 - REPEATED FALLS (18) Hypertension Code(s): I10 - ESSENTIAL (PRIMARY) HYPERTENSION Qualifiers: Hypertension type: essential hypertension Qualified Code(s): I10 - Essential (primary) hypertension Assessment/Plan IMP RLL PNEUMONIA LIKELY ASPIRATION clinically improved CHF ASHD S/P CABG,PCI COPD LEFT HIP FX S/P MECHANICAL FALL S/P INTRA-MEDULLARY NAIL ALTERED MENTAL STATUS LIKELY TOXIC METABOLIC ENCEPHALOPATHY NEUROGENIC SYNCOPE DM HLD HTN H/O PUD S/P BILLROTH II H/O ACHALASIA S/P HELLER MYOTOMY ANEMIA HYPERNATREMIA PLAN SUPPLEMENTAL O2 INHALED BRONCHODILATORS NORMAL TRANSFUSION THRESHOLD MONITOR LYTES,RENAL FUNCTION,H+H F/U CHEST X-RAYS PRN PT DR DELVALLE Problem List - Problems (1) Anemia Code(s): D64.9 - ANEMIA, UNSPECIFIED Qualifiers: Anemia type: unspecified type Qualified Code(s): D64.9 - Anemia, unspecified (2) Fall Code(s): W19.XXXA - UNSPECIFIED FALL, INITIAL ENCOUNTER Qualifiers: Encounter type: initial encounter Qualified Code(s): W19.XXXA - Unspecified fall, initial encounter (3) Hip fracture, left Code(s): S72.002A - FRACTURE OF UNSP PART OF NECK OF LEFT FEMUR, INIT Qualifiers: Encounter type: initial encounter Fracture type: closed Qualified Code(s): S72.002A - Fracture of unspecified part of neck of left femur, initial encounter for closed fracture (4) Neuropathy Code(s): G62.9 - POLYNEUROPATHY, UNSPECIFIED (5) Syncope Code(s): R55 - SYNCOPE AND COLLAPSE Qualifiers: Syncope type: unspecified Qualified Code(s): R55 - Syncope and collapse (6) Pneumonia Code(s): J18.9 - PNEUMONIA, UNSPECIFIED ORGANISM Qualifiers: Pneumonia type: due to unspecified organism Laterality: unspecified laterality Lung location: unspecified part of lung Qualified Code(s): J18.9 - Pneumonia, unspecified organism (7) Achalasia Code(s): K22.0 - ACHALASIA OF CARDIA (8) BPH (benign prostatic hypertrophy) Code(s): N40.0 - BENIGN PROSTATIC HYPERPLASIA WITHOUT LOWER URINRY TRACT SYMP Qualifiers: Lower urinary tract symptom presence: presence of symptoms unspecified (9) CAD (coronary artery disease) Code(s): I25.10 - ATHSCL HEART DISEASE OF [place] CORONARY ARTERY W/O ANG PCTRS Qualifiers: Coronary Disease-Associated Artery/Lesion type: [place] artery [place] vs. transplanted heart: [place] heart Associated angina: without angina Qualified Code(s): I25.10 - Atherosclerotic heart disease of [place] coronary artery without angina pectoris (10) CKD (chronic kidney disease) stage 3, GFR 30-59 ml/min Code(s): N18.3 - CHRONIC KIDNEY DISEASE, STAGE 3 (MODERATE) (11) COPD (chronic obstructive pulmonary disease) Code(s): J44.9 - CHRONIC OBSTRUCTIVE PULMONARY DISEASE, UNSPECIFIED (12) History of percutaneous coronary intervention Code(s): Z98.890 - OTHER SPECIFIED POSTPROCEDURAL STATES (13) Hx of CABG Code(s): Z95.1 - PRESENCE OF AORTOCORONARY BYPASS GRAFT (14) Hyperlipidemia Code(s): E78.5 - HYPERLIPIDEMIA, UNSPECIFIED Qualifiers: Hyperlipidemia type: pure hypercholesterolemia Qualified Code(s): E78.00 - Pure hypercholesterolemia, unspecified; E78.0 - Pure hypercholesterolemia (15) ICD (implantable cardioverter-defibrillator) in place Code(s): Z95.810 - PRESENCE OF AUTOMATIC (IMPLANTABLE) CARDIAC DEFIBRILLATOR (16) Ischemic cardiomyopathy Code(s): I25.5 - ISCHEMIC CARDIOMYOPATHY (17) Recurrent falls Code(s): R29.6 - REPEATED FALLS (18) Hypertension Code(s): I10 - ESSENTIAL (PRIMARY) HYPERTENSION Qualifiers: Hypertension type: essential hypertension Qualified Code(s): I10 - Essential (primary) hypertension
[2019-12-17 08:27] LABS: HEMATOCRIT 24.5 % (35.4-49); HEMOGLOBIN 7.9 GM/dL (11.7-16.9); MCH 27.5 pg (25.7-33.7); MCHC 32.4 g/dl (32.0-35.9); MEAN CELL VOLUME 84.7 fl (80-96); MEAN PLT VOLUME 7.9 fl (7.5-11.1); PLATELET COUNT 217 K/MM3 (134-434); RDW 18.4 % (11.9-15.9); WHITE BLOOD COUNT 4.9 K/mm3 (4.0-10.0)
[2019-12-17 08:46] LABS: ALBUMIN 1.9 g/dl (3.4-5.0); BILIRUBIN,TOTAL 0.6 mg/dL (0.2-1); BLOOD UREA NITROGEN 26.7 mg/dL (7-18); CALCIUM 7.7 mg/dL (8.5-10.1); CREATININE 1.3 mg/dL (0.55-1.3); TOT PROT 5.6 g/dl (6.4-8.2)
[2019-12-17] MEDS: CLOPIDOGREL BISULFATE 75 MG TABLET (FP) PO SCH (09:14)
[2019-12-17] MEDS: ESCITALOPRAM OXALATE 10 MG TABLET PO SCH (09:15)
[2019-12-17] MEDS: CARVEDILOL 3.125 MG TABLET (FP) PO SCH ×2 (09:15→21:35)
[2019-12-17] MEDS: VALSARTAN 40 MG TABLET (FP) PO SCH (09:15)
[2019-12-17] MEDS: guaiFENesin 600 MG TABLET.ER (FP) PO SCH ×2 (09:15→21:35)
[2019-12-17] MEDS: BUDESONIDE/FORMETEROL FUMARATE 160/4.5 mcg INHALER IH SCH ×2 (09:15→21:41)
[2019-12-17] MEDS: FUROSEMIDE 20 MG TABLET (FP) PO SCH (09:15)
--- NOTE | 2019-12-17 14:38 | PN ---
Physical Exam: SUBJECTIVE: Patient seen and examined. He reports not feeling well. Pain is better controlled, however. Tmax overnight 101.6. OBJECTIVE: Vital Signs Period Temp Pulse Resp BP Sys/Garcia Pulse Ox Last 24 Hr 98.0 F-101.6 F 60-91 16-18 112-154/42-75 92-100 GENERAL: The patient is awake, alert, and fully oriented, in no acute distress. Pale. HEAD: Normal with no signs of trauma. EYES: PERRL, extraocular movements intact, conjunctiva clear. ENT: Ears normal, nares patent, moist mucous membranes. NECK: Trachea midline, full range of motion, supple. LUNGS: Clear to auscultation bilaterally, no wheezes, no crackles anteriorly. HEART: Regular rate and rhythm, no murmur appreciated. ABDOMEN: Soft, nontender, nondistended, normoactive bowel sounds. EXTREMITIES: Warm, well-perfused, no edema. NEUROLOGICAL: Cranial nerves II through XII grossly intact. Normal speech. PSYCH: Normal mood, normal affect. SKIN: Warm, dry, normal turgor. Laboratory Results - last 24 hr 12/16/19 12/16/19 12/17/19 17:11 20:56 05:49 WBC RBC Hgb Hct MCV MCH MCHC RDW Plt Count MPV Sodium Potassium Chloride Carbon Dioxide Anion Gap BUN Creatinine Est GFR (CKD-EPI)AfAm Est GFR (CKD-EPI)NonAf POC Glucometer 303 178 238 Random Glucose Calcium Total Bilirubin AST ALT Alkaline Phosphatase Total Protein Albumin 12/17/19 12/17/19 07:20 07:20 WBC 4.9 RBC 2.90 L Hgb 7.9 L Hct 24.5 L MCV 84.7 MCH 27.5 MCHC 32.4 RDW 18.4 H Plt Count 217 MPV 7.9 Sodium 139 Potassium 4.0 Chloride 106 Carbon Dioxide 25 Anion Gap 8 BUN 26.7 H Creatinine 1.3 Est GFR (CKD-EPI)AfAm 61.00 Est GFR (CKD-EPI)NonAf 52.63 POC Glucometer Random Glucose 346 H Calcium 7.7 L Total Bilirubin 0.6 AST 112 H ALT 120 H Alkaline Phosphatase 164 H Total Protein 5.6 L Albumin 1.9 L Active Medications Generic Name Dose Route Start Last Admin Trade Name Freq PRN Reason Stop Dose Admin Albuterol Sulfate 2 puff 12/13/19 11:09 Ventolin Hfa Inhaler - IH Q8H PRN SHORTNESS OF BREATH Budesonide/Formoterol Fumarate 1 puff 12/13/19 22:00 12/17/19 09:15 Symbicort 160/4.5mcg - IH 1 puff BID [facility] Administration Carvedilol 3.125 mg 12/13/19 22:00 12/17/19 09:15 Coreg - PO 3.125 mg BID [facility] Administration Clopidogrel Bisulfate 75 mg 12/14/19 10:00 12/17/19 09:14 Plavix - PO 75 mg DAILY [facility] Administration Docusate Sodium 100 mg 12/13/19 11:09 Colace - PO Q12H PRN CONSTIPATION Escitalopram Oxalate 5 mg 12/10/19 14:29 12/17/19 09:15 Lexapro - PO 5 mg DAILY [facility] Administration Furosemide 20 mg 12/14/19 10:00 12/17/19 09:15 Lasix - PO 20 mg DAILY [facility] Administration Guaifenesin 600 mg 12/15/19 11:30 12/17/19 09:15 Mucinex - PO 600 mg BID [facility] Administration Heparin Sodium (Porcine) 5,000 unit 12/13/19 14:00 12/17/19 06:02 Heparin - SQ 5,000 unit TID [facility] Administration Insulin Aspart 1 vial 12/13/19 12:00 12/17/19 06:02 Novolog Vial Sliding Scale - SQ 2 units Q6HPO [facility] Administration Protocol Insulin Detemir 2 units 12/12/19 22:00 12/16/19 21:18 Levemir Vial SQ 2 units HS [facility] Administration Insulin Detemir 5 units 12/13/19 07:00 12/17/19 06:02 Levemir Vial SQ 5 units AM [facility] Administration Latanoprost 1 drop 12/14/19 22:00 12/16/19 21:18 Xalatan 0.005% Eye Drops - OU 1 drop HS [facility] Administration Melatonin 10 mg 12/13/19 22:00 12/16/19 21:18 Melatonin PO 10 mg HS [facility] Administration Oxycodone HCl 5 mg 12/15/19 13:00 12/17/19 09:13 Roxicodone - PO 5 mg Q4H PRN Administration PAIN LEVEL 6-10 Tamsulosin HCl 0.4 mg 12/13/19 22:00 12/16/19 21:16 Flomax - PO 0.4 mg HS [facility] Administration Valsartan 40 mg 12/12/19 11:30 12/17/19 09:15 Diovan - PO 40 mg DAILY [facility] Administration ASSESSMENT/PLAN: 79 year old male patient with past medical history that includes CHF, CAD s/p PCI, CKD, s/p medtronic ICD, DM, PVD s/p partial gastrectomy, achalasia, penile implant, CABG, HTN, and HLD, who presented to the ED after a fall. #fever, unknown source at this time -101.6 overnight -blood and urine cx pending -CXR yesterday shows improvement #Femoral Neck Fracture s/p Intramedullary Nail Surgery -pain control -encourage PT #microcytic anemia s/p PRBCs -Hb 7.9 today #transaminitis -ALT and AST slight increase today -hx fatty liver from U/S -MRCP unable to be performed due to ICD #possible aspiration PNA -s/p Unasyn -monitor for further aspiration #CHF -echo- EF 55%, mild pulm htn, and normal right and left ventricles in size and function -assess for crackles daily and give Lasix as needed #DM -SSI -BGMs #HTN -Coreg #HLD -statin held for transaminitis #FEN - Monitoring Electrolytes, Soft Diet with [place] Thickened Liquids DVT PPx - Heparin dispo was for discharge, now with fever will need to re-evaluate for sources of infection FULL CODE Visit type - Emergency Visit Emergency Visit: Yes ED Registration Date: 11/30/19 Care time: The patient presented to the Emergency Department on the above date and was hospitalized for further evaluation of their emergent condition. - New Patient This patient is new to me today: Yes Date on this admission: 12/17/19 - Critical Care Critical Care patient: No - Medication Review Med list reviewed for High Risk Meds patients 65 and older: Yes ATTENDING PHYSICIAN STATEMENT I saw and evaluated the patient. I reviewed the resident's note and discussed the case with the resident. I agree with the resident's findings and plan as documented. SUBJECTIVE: OBJECTIVE: ASSESSMENT AND PLAN:
--- NOTE | 2019-12-17 16:37 | PN ---
Teaching Attending Note Name of Resident: Jojo Ruiz ATTENDING PHYSICIAN STATEMENT I saw and evaluated the patient. I reviewed the resident's note and discussed the case with the resident. I agree with the resident's findings and plan as documented. SUBJECTIVE: Patient is comfortable has no new symptoms afebrile today. OBJECTIVE: Vital Signs Period Temp Pulse Resp BP Sys/Garcia Pulse Ox Last 24 Hr 98.5 F-101.6 F 60-74 18-18 112-119/42-53 92-96 Patient is comfortable HEENT normal Neck supple no JVD Lungs clear no wheezing Abdomen nontender no organomegaly bowel sounds normal Extremities no edema no cyanosis normal pulses Neurologically he is alert awake oriented, nonfocal Skin no rash noted CBC, BMP 12/17/19 07:20 12/17/19 07:20 ASSESSMENT AND PLAN: 79 year old male patient with past medical history that includes CHF, CAD s/p PCI, CKD,presents with a fall with Hip fracture, s/p repair. now with elevated LFTs He is afebrile today stable no new symptoms chest x-ray is improved white cell count is normal discussed with the director of casework services for possible discharge for rehabilitation repeat [place] test pending
[2019-12-17] MEDS ORDERED: INSULIN (NOVOLOG) ASPART 100 UNITS/ML 10ML VIAL ONE ×2 (18:10→18:21)
[2019-12-17] MEDS: TAMSULOSIN HCL 0.4 MG CAP PO SCH (21:36)
[2019-12-17] MEDS: MELATONIN 5 MG TABLETS PO SCH (21:36)
[2019-12-17] MEDS: LATANOPROST 0.005% OPHTH SOLN 2.5ML BOTTLE OU SCH (21:41)
[2019-12-18] MEDS: HEPARIN NA (PORCINE) 5,000 UNITS/ML 1ML VIAL SQ SCH ×3 (06:20→21:48)
[2019-12-18] MEDS: oxyCODONE HCL 5 MG TABLET PO PRN ×3 (06:20→22:03)
[2019-12-18] MEDS: INSULIN (LEVEMIR) 100 UNITS/ML UNITS SQ SCH ×2 (06:21→21:48)
[2019-12-18] MEDS: INSULIN SLIDING SCALE (NOVOLOG) 1 VIAL SQ SCH ×4 (06:25→23:00)
--- NOTE | 2019-12-18 07:12 | PN ---
Progress Note, Physician History of Present Illness: PULMONARY AWAKE,WEAK,-SOB,C/O LOWER EXT DISCOMFORT - Current Medication List Current Medications: Active Medications Albuterol Sulfate (Ventolin Hfa Inhaler -) 2 puff IH Q8H PRN PRN Reason: SHORTNESS OF BREATH Budesonide/Formoterol Fumarate (Symbicort 160/4.5mcg -) 1 puff IH BID [facility] Last Admin: 12/17/19 21:41 Dose: 1 puff Documented by: Carvedilol (Coreg -) 3.125 mg PO BID [facility] Last Admin: 12/17/19 21:35 Dose: 3.125 mg Documented by: Clopidogrel Bisulfate (Plavix -) 75 mg PO DAILY [facility] Last Admin: 12/17/19 09:14 Dose: 75 mg Documented by: Docusate Sodium (Colace -) 100 mg PO Q12H PRN PRN Reason: CONSTIPATION Escitalopram Oxalate (Lexapro -) 5 mg PO DAILY [facility] Last Admin: 12/17/19 09:15 Dose: 5 mg Documented by: Furosemide (Lasix -) 20 mg PO DAILY [facility] Last Admin: 12/17/19 09:15 Dose: 20 mg Documented by: Guaifenesin (Mucinex -) 600 mg PO BID [facility] Last Admin: 12/17/19 21:35 Dose: 600 mg Documented by: Heparin Sodium (Porcine) (Heparin -) 5,000 unit SQ TID [facility] Last Admin: 12/18/19 06:20 Dose: 5,000 unit Documented by: Insulin Aspart (Novolog Vial Sliding Scale -) 1 vial SQ Q6HPO [facility]; Protocol Last Admin: 12/18/19 06:25 Dose: Not Given Documented by: Insulin Detemir (Levemir Vial) 2 units SQ HS [facility] Last Admin: 12/17/19 21:51 Dose: 2 units Documented by: Insulin Detemir (Levemir Vial) 5 units SQ AM [facility] Last Admin: 12/18/19 06:21 Dose: 5 units Documented by: Latanoprost (Xalatan 0.005% Eye Drops -) 1 drop OU HS [facility] Last Admin: 12/17/19 21:41 Dose: 1 drop Documented by: Melatonin (Melatonin) 10 mg PO [facility] Last Admin: 12/17/19 21:36 Dose: 10 mg Documented by: Oxycodone HCl (Roxicodone -) 5 mg PO Q4H PRN PRN Reason: PAIN LEVEL 6-10 Last Admin: 12/18/19 06:20 Dose: 5 mg Documented by: Tamsulosin HCl (Flomax -) 0.4 mg PO HS [facility] Last Admin: 12/17/19 21:36 Dose: 0.4 mg Documented by: Valsartan (Diovan -) 40 mg PO DAILY [facility] Last Admin: 12/17/19 09:15 Dose: 40 mg Documented by: - Objective Vital Signs: Vital Signs Temperature 99.4 F 12/18/19 05:36 Pulse Rate 66 12/18/19 05:36 Respiratory Rate 18 12/18/19 05:36 Blood Pressure 133/82 12/18/19 05:36 O2 Sat by Pulse Oximetry (%) 96 12/18/19 05:36 Constitutional: Yes: Well Nourished, Calm Eyes: Yes: WNL HENT: Yes: WNL Neck: Yes: WNL Cardiovascular: Yes: Regular Rate and Rhythm, S1, S2 Respiratory: Yes: Rales (FEW BIBASILAR RALES) Gastrointestinal: Yes: Normal Bowel Sounds, Soft Extremities: Yes: WNL Edema: No Labs: CBC, BMP 12/17/19 07:20 Problem List - Problems (1) Anemia Code(s): D64.9 - ANEMIA, UNSPECIFIED Qualifiers: Anemia type: unspecified type Qualified Code(s): D64.9 - Anemia, unspecified (2) Fall Code(s): W19.XXXA - UNSPECIFIED FALL, INITIAL ENCOUNTER Qualifiers: Encounter type: initial encounter Qualified Code(s): W19.XXXA - Unspecified fall, initial encounter (3) Hip fracture, left Code(s): S72.002A - FRACTURE OF UNSP PART OF NECK OF LEFT FEMUR, INIT Qualifiers: Encounter type: initial encounter Fracture type: closed Qualified Code(s): S72.002A - Fracture of unspecified part of neck of left femur, initial encounter for closed fracture (4) Neuropathy Code(s): G62.9 - POLYNEUROPATHY, UNSPECIFIED (5) Syncope Code(s): R55 - SYNCOPE AND COLLAPSE Qualifiers: Syncope type: unspecified Qualified Code(s): R55 - Syncope and collapse (6) Pneumonia Code(s): J18.9 - PNEUMONIA, UNSPECIFIED ORGANISM Qualifiers: Pneumonia type: due to unspecified organism Laterality: unspecified laterality Lung location: unspecified part of lung Qualified Code(s): J18.9 - Pneumonia, unspecified organism (7) Achalasia Code(s): K22.0 - ACHALASIA OF CARDIA (8) BPH (benign prostatic hypertrophy) Code(s): N40.0 - BENIGN PROSTATIC HYPERPLASIA WITHOUT LOWER URINRY TRACT SYMP Qualifiers: Lower urinary tract symptom presence: presence of symptoms unspecified (9) CAD (coronary artery disease) Code(s): I25.10 - ATHSCL HEART DISEASE OF [place] CORONARY ARTERY W/O ANG PCTRS Qualifiers: Coronary Disease-Associated Artery/Lesion type: [place] artery [place] vs. transplanted heart: [place] heart Associated angina: without angina Qualified Code(s): I25.10 - Atherosclerotic heart disease of [place] coronary artery without angina pectoris (10) CKD (chronic kidney disease) stage 3, GFR 30-59 ml/min Code(s): N18.3 - CHRONIC KIDNEY DISEASE, STAGE 3 (MODERATE) (11) COPD (chronic obstructive pulmonary disease) Code(s): J44.9 - CHRONIC OBSTRUCTIVE PULMONARY DISEASE, UNSPECIFIED (12) History of percutaneous coronary intervention Code(s): Z98.890 - OTHER SPECIFIED POSTPROCEDURAL STATES (13) Hx of CABG Code(s): Z95.1 - PRESENCE OF AORTOCORONARY BYPASS GRAFT (14) Hyperlipidemia Code(s): E78.5 - HYPERLIPIDEMIA, UNSPECIFIED Qualifiers: Hyperlipidemia type: pure hypercholesterolemia Qualified Code(s): E78.00 - Pure hypercholesterolemia, unspecified; E78.0 - Pure hypercholesterolemia (15) ICD (implantable cardioverter-defibrillator) in place Code(s): Z95.810 - PRESENCE OF AUTOMATIC (IMPLANTABLE) CARDIAC DEFIBRILLATOR (16) Ischemic cardiomyopathy Code(s): I25.5 - ISCHEMIC CARDIOMYOPATHY (17) Recurrent falls Code(s): R29.6 - REPEATED FALLS (18) Hypertension Code(s): I10 - ESSENTIAL (PRIMARY) HYPERTENSION Qualifiers: Hypertension type: essential hypertension Qualified Code(s): I10 - Essential (primary) hypertension Assessment/Plan IMP RLL PNEUMONIA LIKELY ASPIRATION IMPROVED CHF ASHD S/P CABG,PCI COPD LEFT HIP FX S/P MECHANICAL FALL S/P INTRA-MEDULLARY NAIL ALTERED MENTAL STATUS LIKELY TOXIC METABOLIC ENCEPHALOPATHY NEUROGENIC SYNCOPE DM HLD HTN H/O PUD S/P BILLROTH II H/O ACHALASIA S/P HELLER MYOTOMY ANEMIA HYPERNATREMIA CORRECTED PLAN SUPPLEMENTAL O2 INHALED BRONCHODILATORS NORMAL TRANSFUSION THRESHOLD MONITOR LYTES,RENAL FUNCTION,H+H F/U CHEST X-RAYS DR DELVALLE Problem List - Problems (1) Anemia Code(s): D64.9 - ANEMIA, UNSPECIFIED Qualifiers: Anemia type: unspecified type Qualified Code(s): D64.9 - Anemia, unspecified (2) Fall Code(s): W19.XXXA - UNSPECIFIED FALL, INITIAL ENCOUNTER Qualifiers: Encounter type: initial encounter Qualified Code(s): W19.XXXA - Unspecified fall, initial encounter (3) Hip fracture, left Code(s): S72.002A - FRACTURE OF UNSP PART OF NECK OF LEFT FEMUR, INIT Qualifiers: Encounter type: initial encounter Fracture type: closed Qualified Code(s): S72.002A - Fracture of unspecified part of neck of left femur, initial encounter for closed fracture (4) Neuropathy Code(s): G62.9 - POLYNEUROPATHY, UNSPECIFIED (5) Syncope Code(s): R55 - SYNCOPE AND COLLAPSE Qualifiers: Syncope type: unspecified Qualified Code(s): R55 - Syncope and collapse (6) Pneumonia Code(s): J18.9 - PNEUMONIA, UNSPECIFIED ORGANISM Qualifiers: Pneumonia type: due to unspecified organism Laterality: unspecified laterality Lung location: unspecified part of lung Qualified Code(s): J18.9 - Pneumonia, unspecified organism (7) Achalasia Code(s): K22.0 - ACHALASIA OF CARDIA (8) BPH (benign prostatic hypertrophy) Code(s): N40.0 - BENIGN PROSTATIC HYPERPLASIA WITHOUT LOWER URINRY TRACT SYMP Qualifiers: Lower urinary tract symptom presence: presence of symptoms unspecified (9) CAD (coronary artery disease) Code(s): I25.10 - ATHSCL HEART DISEASE OF [place] CORONARY ARTERY W/O ANG PCTRS Qualifiers: Coronary Disease-Associated Artery/Lesion type: [place] artery [place] vs. transplanted heart: [place] heart Associated angina: without angina Qualified Code(s): I25.10 - Atherosclerotic heart disease of [place] coronary artery without angina pectoris (10) CKD (chronic kidney disease) stage 3, GFR 30-59 ml/min Code(s): N18.3 - CHRONIC KIDNEY DISEASE, STAGE 3 (MODERATE) (11) COPD (chronic obstructive pulmonary disease) Code(s): J44.9 - CHRONIC OBSTRUCTIVE PULMONARY DISEASE, UNSPECIFIED (12) History of percutaneous coronary intervention Code(s): Z98.890 - OTHER SPECIFIED POSTPROCEDURAL STATES (13) Hx of CABG Code(s): Z95.1 - PRESENCE OF AORTOCORONARY BYPASS GRAFT (14) Hyperlipidemia Code(s): E78.5 - HYPERLIPIDEMIA, UNSPECIFIED Qualifiers: Hyperlipidemia type: pure hypercholesterolemia Qualified Code(s): E78.00 - Pure hypercholesterolemia, unspecified; E78.0 - Pure hypercholesterolemia (15) ICD (implantable cardioverter-defibrillator) in place Code(s): Z95.810 - PRESENCE OF AUTOMATIC (IMPLANTABLE) CARDIAC DEFIBRILLATOR (16) Ischemic cardiomyopathy Code(s): I25.5 - ISCHEMIC CARDIOMYOPATHY (17) Recurrent falls Code(s): R29.6 - REPEATED FALLS (18) Hypertension Code(s): I10 - ESSENTIAL (PRIMARY) HYPERTENSION Qualifiers: Hypertension type: essential hypertension Qualified Code(s): I10 - Essential (primary) hypertension
[2019-12-18] MEDS: BUDESONIDE/FORMETEROL FUMARATE 160/4.5 mcg INHALER IH SCH ×2 (09:00→21:50)
[2019-12-18] MEDS: CLOPIDOGREL BISULFATE 75 MG TABLET (FP) PO SCH (09:00)
[2019-12-18] MEDS: CARVEDILOL 3.125 MG TABLET (FP) PO SCH ×2 (09:00→21:48)
[2019-12-18] MEDS: guaiFENesin 600 MG TABLET.ER (FP) PO SCH ×2 (09:08→21:48)
[2019-12-18] MEDS: ESCITALOPRAM OXALATE 10 MG TABLET PO SCH (09:08)
[2019-12-18] MEDS: FUROSEMIDE 20 MG TABLET (FP) PO SCH (09:20)
[2019-12-18] MEDS: VALSARTAN 40 MG TABLET (FP) PO SCH (09:20)
[2019-12-18] MEDS ORDERED: INSULIN (NOVOLOG) ASPART 100 UNITS/ML 10ML VIAL ONE (11:29)
--- NOTE | 2019-12-18 12:38 | PN ---
Physical Exam: SUBJECTIVE: Patient seen and examined He has no new complaint he is afebrile. Repeat Coville test is still pending which is required for him going to [facility] rehabilitation. OBJECTIVE: Vital Signs Period Temp Pulse Resp BP Sys/Garcia Pulse Ox Last 24 Hr 98.6 F-99.4 F 66-72 18-18 133-140/55-82 95-96 Patient is comfortable HEENT normal Neck supple no JVD Lungs clear no wheezing Abdomen nontender no organomegaly bowel sounds normal Extremities no edema no cyanosis normal pulses Neurologically he is alert awake oriented, nonfocal Skin no rash noted Laboratory Results - last 24 hr 12/17/19 12/17/19 12/18/19 18:02 21:49 06:19 POC Glucometer 301 274 185 12/18/19 11:33 POC Glucometer 327 Active Medications Generic Name Dose Route Start Last Admin Trade Name Freq PRN Reason Stop Dose Admin Albuterol Sulfate 2 puff 12/13/19 11:09 Ventolin Hfa Inhaler - IH Q8H PRN SHORTNESS OF BREATH Budesonide/Formoterol Fumarate 1 puff 12/13/19 22:00 12/18/19 09:00 Symbicort 160/4.5mcg - IH 1 puff BID [facility] Administration Carvedilol 3.125 mg 12/13/19 22:00 12/18/19 09:00 Coreg - PO 3.125 mg BID [facility] Administration Clopidogrel Bisulfate 75 mg 12/14/19 10:00 12/18/19 09:00 Plavix - PO 75 mg DAILY [facility] Administration Docusate Sodium 100 mg 12/13/19 11:09 Colace - PO Q12H PRN CONSTIPATION Escitalopram Oxalate 5 mg 12/10/19 14:29 12/18/19 09:08 Lexapro - PO 5 mg DAILY [facility] Administration Furosemide 20 mg 12/14/19 10:00 12/18/19 09:20 Lasix - PO 20 mg DAILY [facility] Administration Guaifenesin 600 mg 12/15/19 11:30 12/18/19 09:08 Mucinex - PO 600 mg BID [facility] Administration Heparin Sodium (Porcine) 5,000 unit 12/13/19 14:00 12/18/19 06:20 Heparin - SQ 5,000 unit TID [facility] Administration Insulin Aspart 1 vial 12/13/19 12:00 12/18/19 11:38 Novolog Vial Sliding Scale - SQ 6 units Q6HPO [facility] Administration Protocol Insulin Detemir 2 units 12/12/19 22:00 12/17/19 21:51 Levemir Vial SQ 2 units HS [facility] Administration Insulin Detemir 5 units 12/13/19 07:00 12/18/19 06:21 Levemir Vial SQ 5 units AM [facility] Administration Latanoprost 1 drop 12/14/19 22:00 12/17/19 21:41 Xalatan 0.005% Eye Drops - OU 1 drop HS [facility] Administration Melatonin 10 mg 12/13/19 22:00 12/17/19 21:36 Melatonin PO 10 mg HS [facility] Administration Oxycodone HCl 5 mg 12/15/19 13:00 12/18/19 06:20 Roxicodone - PO 5 mg Q4H PRN Administration PAIN LEVEL 6-10 Tamsulosin HCl 0.4 mg 12/13/19 22:00 12/17/19 21:36 Flomax - PO 0.4 mg HS [facility] Administration Valsartan 40 mg 12/12/19 11:30 12/18/19 09:20 Diovan - PO 40 mg DAILY [facility] Administration ASSESSMENT/PLAN: 79 year old male patient with past medical history that includes CHF, CAD s/p PCI, CKD,presents with a fall with Hip fracture, s/p repair. now with elevated LFTs He is improved at this time awaiting rehabilitation transfer and co-testing. He has hemoglobin of 7.9 today his usual hemoglobin is around 8. so it is kind of no change. We will do work-up for blood loss because his creatinine is normal is likely due to anemia of chronic disease. Start him on iron pills Hypertension coronary disease we will continue his medications which include Lasix valsartan Coreg and Plavix COPD we will continue his home medications. Visit type - Emergency Visit Emergency Visit: Yes ED Registration Date: 11/30/19 Care time: The patient presented to the Emergency Department on the above date and was hospitalized for further evaluation of their emergent condition. - New Patient This patient is new to me today: No - Critical Care Critical Care patient: No - Discharge Referral Referred to [facility] Med P.C.: No - Medication Review Med list reviewed for High Risk Meds patients 65 and older: Yes
--- NOTE | 2019-12-18 21:07 | PN ---
Progress Note, Physician Chief Complaint: Pt A&Ox3; no chest pain or dypsnea; c/o pain in knees ("since I fell a long time ago"); mild pain at LLE surgical site. History of Present Illness: Mr. Gates is a 79 year old white male with a significant PMH of HTN, HLD, DM, CAD s/p CABG, reported HfrEF with LVEF 45-50%, ICD, PAS s/p fem/pop, PUD s/p Bilroth 2 gastrectomy, achlasia s/p Heller myotomy, COPD, gout, CKD IIIB and BPH who presents to the ED BIBA for evaluation s/p fall one hour ago at home. He reports hitting the back of his head and his left side, and now endorses left hip, left elbow and left wrist pain Patient does endorse frequent falls in the past, with the last one being 2 weeks ago. Patient notes that he feels like he lost consciousness for a few seconds right before he fell. He does also note that his BP is low which he states is the cause of his fall. The patient denies chest pain, shortness of breath. Denies fever, chills, nausea, vomiting, diarrhea and constipation. Denies dysuria, frequency, urgency and hematuria. - Current Medication List Current Medications: Active Medications Albuterol Sulfate (Ventolin Hfa Inhaler -) 2 puff IH Q8H PRN PRN Reason: SHORTNESS OF BREATH Budesonide/Formoterol Fumarate (Symbicort 160/4.5mcg -) 1 puff IH BID [facility] Last Admin: 12/18/19 09:00 Dose: 1 puff Documented by: Carvedilol (Coreg -) 3.125 mg PO BID [facility] Last Admin: 12/18/19 09:00 Dose: 3.125 mg Documented by: Clopidogrel Bisulfate (Plavix -) 75 mg PO DAILY [facility] Last Admin: 12/18/19 09:00 Dose: 75 mg Documented by: Docusate Sodium (Colace -) 100 mg PO Q12H PRN PRN Reason: CONSTIPATION Escitalopram Oxalate (Lexapro -) 5 mg PO DAILY [facility] Last Admin: 12/18/19 09:08 Dose: 5 mg Documented by: Furosemide (Lasix -) 20 mg PO DAILY [facility] Last Admin: 08/09/20 09:20 Dose: 20 mg Documented by: Guaifenesin (Mucinex -) 600 mg PO BID [facility] Last Admin: 12/18/19 09:08 Dose: 600 mg Documented by: Heparin Sodium (Porcine) (Heparin -) 5,000 unit SQ TID [facility] Last Admin: 12/18/19 14:16 Dose: 5,000 unit Documented by: Insulin Aspart (Novolog Vial Sliding Scale -) 1 vial SQ Q6HPO [facility]; Protocol Last Admin: 12/18/19 16:37 Dose: 4 units Documented by: Insulin Detemir (Levemir Vial) 2 units SQ HS [facility] Last Admin: 12/17/19 21:51 Dose: 2 units Documented by: Insulin Detemir (Levemir Vial) 5 units SQ AM [facility] Last Admin: 12/18/19 06:21 Dose: 5 units Documented by: Latanoprost (Xalatan 0.005% Eye Drops -) 1 drop OU [facility] Last Admin: 12/17/19 21:41 Dose: 1 drop Documented by: Melatonin (Melatonin) 10 mg PO [facility] Last Admin: 12/17/19 21:36 Dose: 10 mg Documented by: Oxycodone HCl (Roxicodone -) 5 mg PO Q4H PRN PRN Reason: PAIN LEVEL 6-10 Last Admin: 12/18/19 14:22 Dose: 5 mg Documented by: Tamsulosin HCl (Flomax -) 0.4 mg PO [facility] Last Admin: 12/17/19 21:36 Dose: 0.4 mg Documented by: Valsartan (Diovan -) 40 mg PO DAILY [facility] Last Admin: 12/18/19 09:20 Dose: 40 mg Documented by: - Objective Vital Signs: Vital Signs Temperature 98.6 F 12/18/19 10:00 Pulse Rate 72 12/18/19 10:00 Respiratory Rate 18 12/18/19 10:00 Blood Pressure 140/55 L 12/18/19 10:00 O2 Sat by Pulse Oximetry (%) 95 12/18/19 10:00 Constitutional: Yes: No Distress Eyes: Yes: WNL HENT: Yes: WNL Neck: Yes: WNL Cardiovascular: Yes: S1, S2 (split), S4 Respiratory: Yes: Regular Gastrointestinal: Yes: Soft ...Rectal Exam: Yes: Deferred Genitourinary: No: Anuria Musculoskeletal: Yes: Muscle Weakness Extremities: Yes: Cool, Other (LLE fracture repair) Edema: No Peripheral Pulses WNL: Yes Integumentary: Yes: WNL Neurological: Yes: Alert, Oriented, Weakness Psychiatric: Yes: Alert, Oriented Labs: CBC, BMP 12/17/19 07:20 12/17/19 07:20 INR, PTT INR 1.08 (0.83-1.09) 12/01/19 06:40 - ....Imaging Chest X-ray: Image Reviewed EKG: Image Reviewed Assessment/Plan 1. s/p Left IM nail for femoral neck hip fracture 2. Aspiration pneumonia, clinically resolving 3. Chronic LV systolic heart failure (ischemic cardiomyopathy EF 45-50%) 4. CAD s/p [place], CABG, PCI/stents, angina pectoris 5. Post ICD implant 6. HTN 7. Hypercholesterolemia 8. T2DM 9. Acute on CKD stage 3 resolved 10. PAD s/p fem-pop bypass and [employer] 11. COPD 12. PUD s/p Bilroth II gastrectomy 13. 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 Gout 15. Kidney stones 16. Orthostatic hypotension off Northera 17. Gait disturbance 18. Post-op anemia 19. Hypernatremia resolved 20. Abormal LFTs PLAN: 1. Continue Diovan 40 qd and Lasix 20 qd as renal fxn stabilized, continue Plavix 75 mg QD, Coreg 3.125 mg BID and Crestor 10 mg QHS. 2. Monitor orthostatic VS; pt has not been taking Northera 100 qd 3. DVT and GI prophylaxis; analgesia as needed 4. Monitor Hgb and transfuse as needed 5. PT as tolerated -> SNF 6. Eventual f/u with Dr. Morales in office
[2019-12-18] MEDS: TAMSULOSIN HCL 0.4 MG CAP PO SCH (21:48)
[2019-12-18] MEDS: MELATONIN 5 MG TABLETS PO SCH (21:49)
[2019-12-18] MEDS: LATANOPROST 0.005% OPHTH SOLN 2.5ML BOTTLE OU SCH (21:49)
[2019-12-19] MEDS: INSULIN (LEVEMIR) 100 UNITS/ML UNITS SQ SCH ×2 (06:29→22:28)
[2019-12-19] MEDS: HEPARIN NA (PORCINE) 5,000 UNITS/ML 1ML VIAL SQ SCH ×3 (06:29→22:28)
[2019-12-19] MEDS: INSULIN SLIDING SCALE (NOVOLOG) 1 VIAL SQ SCH ×5 (06:30→23:43)
[2019-12-19 09:45] LABS: BASO % 0.6 % (0-2.0); EOS % 1.2 % (0-4.5); HEMATOCRIT 28.5 % (35.4-49); HEMOGLOBIN 9.3 GM/dL (11.7-16.9); LYMPH % 10.8 % (8-40); MCH 26.8 pg (25.7-33.7); MCHC 32.6 g/dl (32.0-35.9); MEAN CELL VOLUME 82.1 fl (80-96); MEAN PLT VOLUME 7.5 fl (7.5-11.1); MONO % 6.2 % (3.8-10.2); NEUT % 81.2 % (42.8-82.8); PLATELET COUNT 325 K/MM3 (134-434); RBC 3.48 M/mm3 (4.00-5.60); RDW 17.8 % (11.9-15.9); WHITE BLOOD COUNT 4.9 K/mm3 (4.0-10.0)
[2019-12-19] MEDS: oxyCODONE HCL 5 MG TABLET PO PRN (09:58)
[2019-12-19] MEDS: CLOPIDOGREL BISULFATE 75 MG TABLET (FP) PO SCH (09:58)
[2019-12-19] MEDS: CARVEDILOL 3.125 MG TABLET (FP) PO SCH ×2 (09:59→22:29)
[2019-12-19] MEDS: guaiFENesin 600 MG TABLET.ER (FP) PO SCH ×2 (09:59→22:29)
[2019-12-19] MEDS: VALSARTAN 40 MG TABLET (FP) PO SCH (09:59)
[2019-12-19] MEDS: ESCITALOPRAM OXALATE 10 MG TABLET PO SCH (10:00)
[2019-12-19] MEDS: FUROSEMIDE 20 MG TABLET (FP) PO SCH (10:00)
[2019-12-19] MEDS: BUDESONIDE/FORMETEROL FUMARATE 160/4.5 mcg INHALER IH SCH ×2 (10:00→22:29)
--- NOTE | 2019-12-19 10:04 | PN ---
Teaching Attending Note Name of Resident: Nate Valentino ATTENDING PHYSICIAN STATEMENT I saw and evaluated the patient. I reviewed the resident's note and discussed the case with the resident. I agree with the resident's findings and plan as documented. SUBJECTIVE: Patient is comfortable with no acute distress. OBJECTIVE: Vital Signs Temperature 98.3 F 12/19/19 06:00 Pulse Rate 73 12/19/19 06:00 Respiratory Rate 18 12/19/19 06:00 Blood Pressure 148/58 L 12/19/19 06:00 O2 Sat by Pulse Oximetry (%) 92 L 12/19/19 06:00 PE: per resident's note CBCD WBC 4.9 K/mm3 (4.0-10.0) 12/19/19 09:15 RBC 3.48 M/mm3 (4.00-5.60) L 12/19/19 09:15 Hgb 9.3 GM/dL (11.7-16.9) L 12/19/19 09:15 Hct 28.5 % (35.4-49) L D 12/19/19 09:15 MCV 82.1 fl (80-96) 12/19/19 09:15 MCHC 32.6 g/dl (32.0-35.9) 12/19/19 09:15 RDW 17.8 % (11.9-15.9) H 12/19/19 09:15 Plt Count 325 K/MM3 (134-434) D 12/19/19 09:15 MPV 7.5 fl (7.5-11.1) 12/19/19 09:15 CMP Sodium 139 mmol/L (136-145) 12/17/19 07:20 Potassium 4.0 mmol/L (3.5-5.1) 12/17/19 07:20 Chloride 106 mmol/L (98-107) 12/17/19 07:20 Carbon Dioxide 25 mmol/L (21-32) 12/17/19 07:20 Anion Gap 8 MMOL/L (8-16) 12/17/19 07:20 BUN 26.7 mg/dL (7-18) H 12/17/19 07:20 Creatinine 1.3 mg/dL (0.55-1.3) 12/17/19 07:20 Random Glucose 346 mg/dL (74-106) H 12/17/19 07:20 Calcium 7.7 mg/dL (8.5-10.1) L 12/17/19 07:20 Total Bilirubin 0.6 mg/dL (0.2-1) 12/17/19 07:20 AST 112 U/L (15-37) H 12/17/19 07:20 ALT 120 U/L (13-61) H 12/17/19 07:20 Alkaline Phosphatase 164 U/L (45-117) H 12/17/19 07:20 Total Protein 5.6 g/dl (6.4-8.2) L 12/17/19 07:20 Albumin 1.9 g/dl (3.4-5.0) L 12/17/19 07:20 CARDIAC ENZYMES Creatine Kinase 14 U/L (26-308) L 12/15/19 07:30 Troponin I < 0.02 ng/ml (0.00-0.05) 11/30/19 08:35 Current Medications Generic Name Dose Route Start Last Admin Trade Name Freq PRN Reason Stop Dose Admin Albuterol Sulfate 2 puff 12/13/19 11:09 Ventolin Hfa Inhaler - IH Q8H PRN SHORTNESS OF BREATH Budesonide/Formoterol Fumarate 1 puff 12/13/19 22:00 12/19/19 10:00 Symbicort 160/4.5mcg - IH 1 puff BID [facility] Administration Carvedilol 3.125 mg 12/13/19 22:00 12/19/19 09:59 Coreg - PO 3.125 mg BID [facility] Administration Clopidogrel Bisulfate 75 mg 12/14/19 10:00 12/19/19 09:58 Plavix - PO 75 mg DAILY [facility] Administration Docusate Sodium 100 mg 12/13/19 11:09 Colace - PO Q12H PRN CONSTIPATION Escitalopram Oxalate 5 mg 12/10/19 14:29 12/19/19 10:00 Lexapro - PO 5 mg DAILY [facility] Administration Furosemide 20 mg 12/14/19 10:00 12/19/19 10:00 Lasix - PO 20 mg DAILY [facility] Administration Guaifenesin 600 mg 12/15/19 11:30 12/19/19 09:59 Mucinex - PO 600 mg BID [facility] Administration Heparin Sodium (Porcine) 5,000 unit 12/13/19 14:00 12/19/19 06:29 Heparin - SQ 5,000 unit TID [facility] Administration Insulin Aspart 1 vial 12/13/19 12:00 12/19/19 06:30 Novolog Vial Sliding Scale - SQ Not Given Q6HPO [facility] Protocol Insulin Detemir 2 units 12/12/19 22:00 12/18/19 21:48 Levemir Vial SQ 2 units HS [facility] Administration Insulin Detemir 5 units 12/13/19 07:00 12/19/19 06:29 Levemir Vial SQ 5 units AM [facility] Administration Latanoprost 1 drop 12/14/19 22:00 12/18/19 21:49 Xalatan 0.005% Eye Drops - OU 1 drop HS [facility] Administration Melatonin 10 mg 12/13/19 22:00 12/18/19 21:49 Melatonin PO 10 mg HS [facility] Administration Oxycodone HCl 5 mg 12/15/19 13:00 12/19/19 09:58 Roxicodone - PO 5 mg Q4H PRN Administration PAIN LEVEL 6-10 Tamsulosin HCl 0.4 mg 12/13/19 22:00 12/18/19 21:48 Flomax - PO 0.4 mg HS [facility] Administration Valsartan 40 mg 12/12/19 11:30 12/19/19 09:59 Diovan - PO 40 mg DAILY [facility] Administration Home Medications Medication Instructions Recorded Carvedilol 3.125 mg PO BID 12/08/18 Tamsulosin HCl 0.4 mg PO DAILY 01/11/19 Clopidogrel Bisulfate [Clopidogrel] 75 mg PO DAILY 04/07/19 Melatonin 10 mg PO HS 04/07/19 Albuterol Sulfate [Proair 2 puff NEB TID PRN 05/31/19 Digihaler] Bimatoprost [Lumigan] 1 drop DAILY 05/31/19 Furosemide 20 mg PO DAILY 05/31/19 Albuterol 0.083% Nebulizer Fatuma 1 neb NEB QID 11/30/19 [Ventolin 0.083% Nebulizer Soln -] Budesonide/Formeterol Fumarate 1 inh PO BID 11/30/19 [SYMBICORT 160/4.5mcg -] Clopidogrel Bisulfate [Plavix -] 75 mg PO DAILY tablet 12/19/19 Docusate Sodium [Colace -] 100 mg PO Q12H PRN capsule 12/19/19 Escitalopram Oxalate [Lexapro -] 5 mg PO DAILY tablet 12/19/19 Guaifenesin [Mucinex -] 600 mg PO BID tablet.er 12/19/19 Heparin - 5,000 unit SQ TID vial 12/19/19 Insulin (Levemir) [Levemir Vial] 2 units SQ HS units 12/19/19 Insulin (Levemir) [Levemir Vial] 6 units SQ AM units 12/19/19 Insulin Sliding Scale [Novolog 1 vial SQ Q6HPO units 12/19/19 Vial Sliding Scale -] Rosuvastatin Calcium [Crestor] 10 mg PO DAILY #30 tablet 12/19/19 Valsartan [Diovan] 40 mg PO DAILY 30 Days #30 tablet 12/19/19 US: of abdomen: s/p cholecystectomy with no evidence of biliary tract obstruction, borderline hepatomegaly with probable mild diffuse fatty infiltration of the liver. ASSESSMENT AND PLAN: This patient is a 79yom with PMhx of systolic heart failure , CAD, s/p PCI ,CKD, s/p medtronic ICD, DM, PUD s/p partial gastrectomy, Achalasia , CABG, HTN, HLP,penile implant ,and copd ( 2 L of O2 ) , who presented after a fall and was found to have L sided femoral neck Fx #Possible aspiration pneumonia : s/p IV antibiotics , completed IV antibiotic, on dysphagia diet s/p MBS: SILENT Aspiration on thin liquid, with no overt signs (no cough, no pt awareness) of aspiration. On soft diet, nectar thick liquids now continue # Acute transaminitis: elevated , ordered MRCP by GI , patient has a pacemaker, cannot have MRCP , will repeat the level after he get s to his rehab, since patient needs to be on rehab program s/ p hip surgery. s/p Unasyn , dose of crestor 10mg and lexapro to 5mg . #POD#19 s/p L Fem neck Fx, s/p intramedullary nail , will dc him to rehab once stable to rehabilitation # s/p FAll.: syncope vs orthostatic hypotension /dehydration # APRYL on CKD: back to baseline , back on diovan since back to his baseline # Hypernatremia /dehydration : on 1/2 ns IVF , improving sodium is 149--> 145-->142-->139-->137-->139 today # Acute delirium: improved # H/o DM ,CAD, HLP: will restart levemir, 5 units in am and 2 units hs . cont SSI q 6h. #Hx systolic heart failure L: gentle hydration # H/o HTN #Hx of COPD on home o2 2l #Low phos: replete DVT Px: heparin continue PT
[2019-12-19 10:09] LABS: ALBUMIN 2.1 g/dl (3.4-5.0); BILIRUBIN,TOTAL 0.6 mg/dL (0.2-1); CALCIUM 8.7 mg/dL (8.5-10.1); CREATININE 1.1 mg/dL (0.55-1.3); POTASSIUM 4.6 mmol/L (3.5-5.1); TOT PROT 6.8 g/dl (6.4-8.2)
--- NOTE | 2019-12-19 10:52 | EKG ---
Test Reason : Blood Pressure : / mmHG Vent. Rate : 073 BPM Atrial Rate : 073 BPM P-R Int : 224 ms QRS Dur : 110 ms QT Int : 416 ms P-R-T Axes : 079 016 061 degrees QTc Int : 458 ms SINUS RHYTHM WITH 1ST DEGREE A-V BLOCK SEPTAL INFARCT , AGE UNDETERMINED ABNORMAL ECG WHEN COMPARED WITH ECG OF 30-NOV-2019 10:34, SEPTAL INFARCT IS NOW PRESENT NONSPECIFIC T WAVE ABNORMALITY, WORSE IN INFERIOR LEADS T WAVE INVERSION NO LONGER EVIDENT IN LATERAL LEADS Confirmed by Jeff Tang ([id number]) on 12/19/2019 10:51:54 AM Referred By: Confirmed By:Jeff Tang
--- NOTE | 2019-12-19 11:00 | PN ---
Progress Note, Physician History of Present Illness: Afebrile, MBS confirms silent aspiration resulting in post-prandial choking, tolerating lunch with dysphagia diet. Denies recurrent near or true syncope, dyspnea, orthopnea, tolerated PT. - Current Medication List Current Medications: Active Medications Albuterol Sulfate (Ventolin Hfa Inhaler -) 2 puff IH Q8H PRN PRN Reason: SHORTNESS OF BREATH Budesonide/Formoterol Fumarate (Symbicort 160/4.5mcg -) 1 puff IH BID [facility] Last Admin: 12/19/19 10:00 Dose: 1 puff Documented by: Carvedilol (Coreg -) 3.125 mg PO BID [facility] Last Admin: 12/19/19 09:59 Dose: 3.125 mg Documented by: Clopidogrel Bisulfate (Plavix -) 75 mg PO DAILY [facility] Last Admin: 12/19/19 09:58 Dose: 75 mg Documented by: Docusate Sodium (Colace -) 100 mg PO Q12H PRN PRN Reason: CONSTIPATION Escitalopram Oxalate (Lexapro -) 5 mg PO DAILY [facility] Last Admin: 12/19/19 10:00 Dose: 5 mg Documented by: Furosemide (Lasix -) 20 mg PO DAILY [facility] Last Admin: 12/19/19 10:00 Dose: 20 mg Documented by: Guaifenesin (Mucinex -) 600 mg PO BID [facility] Last Admin: 12/19/19 09:59 Dose: 600 mg Documented by: Heparin Sodium (Porcine) (Heparin -) 5,000 unit SQ TID [facility] Last Admin: 12/19/19 06:29 Dose: 5,000 unit Documented by: Insulin Aspart (Novolog Vial Sliding Scale -) 1 vial SQ Q6HPO [facility]; Protocol Last Admin: 12/19/19 06:30 Dose: Not Given Documented by: Insulin Detemir (Levemir Vial) 2 units SQ HS [facility] Last Admin: 12/18/19 21:48 Dose: 2 units Documented by: Insulin Detemir (Levemir Vial) 5 units SQ AM [facility] Last Admin: 12/19/19 06:29 Dose: 5 units Documented by: Latanoprost (Xalatan 0.005% Eye Drops -) 1 drop OU HS [facility] Last Admin: 12/18/19 21:49 Dose: 1 drop Documented by: Melatonin (Melatonin) 10 mg PO [facility] Last Admin: 12/18/19 21:49 Dose: 10 mg Documented by: Oxycodone HCl (Roxicodone -) 5 mg PO Q4H PRN PRN Reason: PAIN LEVEL 6-10 Last Admin: 12/19/19 09:58 Dose: 5 mg Documented by: Tamsulosin HCl (Flomax -) 0.4 mg PO HS [facility] Last Admin: 12/18/19 21:48 Dose: 0.4 mg Documented by: Valsartan (Diovan -) 40 mg PO DAILY [facility] Last Admin: 12/19/19 09:59 Dose: 40 mg Documented by: - Objective Vital Signs: Vital Signs Temperature 98.3 F 12/19/19 06:00 Pulse Rate 73 12/19/19 06:00 Respiratory Rate 18 12/19/19 06:00 Blood Pressure 148/58 L 12/19/19 06:00 O2 Sat by Pulse Oximetry (%) 92 L 12/19/19 06:00 Constitutional: Yes: No Distress, Calm, Thin Neck: Yes: Supple Cardiovascular: Yes: Regular Rate and Rhythm Respiratory: Yes: Regular, Diminished, On Nasal O2 Gastrointestinal: Yes: Soft, Hypoactive Bowel Sounds Edema: No Labs: CBC, BMP 12/19/19 09:15 12/19/19 09:15 INR, PTT INR 1.08 (0.83-1.09) 12/01/19 06:40 - ....Imaging EKG: Report Reviewed (NSR @ 73 1st deg AVB IVCD) Problem List - Problems (1) CAD (coronary artery disease) Code(s): I25.10 - ATHSCL HEART DISEASE OF [place] CORONARY ARTERY W/O ANG PCTRS Qualifiers: Coronary Disease-Associated Artery/Lesion type: [place] artery [place] vs. transplanted heart: [place] heart Associated angina: without angina Qualified Code(s): I25.10 - Atherosclerotic heart disease of [place] coronary artery without angina pectoris (2) COPD (chronic obstructive pulmonary disease) Code(s): J44.9 - CHRONIC OBSTRUCTIVE PULMONARY DISEASE, UNSPECIFIED Qualifiers: COPD type: unspecified COPD Qualified Code(s): J44.9 - Chronic obstructive pulmonary disease, unspecified (3) History of percutaneous coronary intervention Code(s): Z98.890 - OTHER SPECIFIED POSTPROCEDURAL STATES (4) Hx of CABG Code(s): Z95.1 - PRESENCE OF AORTOCORONARY BYPASS GRAFT (5) ICD (implantable cardioverter-defibrillator) in place Code(s): Z95.810 - PRESENCE OF AUTOMATIC (IMPLANTABLE) CARDIAC DEFIBRILLATOR (6) Ischemic cardiomyopathy Code(s): I25.5 - ISCHEMIC CARDIOMYOPATHY (7) Recurrent falls Code(s): R29.6 - REPEATED FALLS (8) Acute on chronic renal insufficiency Code(s): N28.9 - DISORDER OF KIDNEY AND URETER, UNSPECIFIED; N18.9 - CHRONIC KIDNEY DISEASE, UNSPECIFIED (9) Orthostatic hypotension Code(s): I95.1 - ORTHOSTATIC HYPOTENSION Assessment/Plan 12/13/2019 Echo: TDS normal biventricular size and fxn, RVSP 30, pacer wire seen 11/21/2019 Echo: Normal LV size with mild LVH and mild decreased LVEF 45-50%, grade I diastolic dysfunction, mild LAE, tr MR, mild-mod TR, mild HI RVSP 34 mmHg Echocardiography (10/15/18): Moderately reduced LV systolic function, LVEF 40-45%, grade 1 diastolic dysfunction, mild , mild MR, moderate TR, mild HI and pulmonary HTN. 1. s/p Left IM nail for femoral neck hip fracture 2. Aspiration pneumonia, clinically resolving 3. Chronic LV systolic heart failure (ischemic cardiomyopathy EF 45-50%) 4. CAD s/p [place], CABG, PCI/stents, angina pectoris 5. Post ICD implant 6. HTN 7. Hypercholesterolemia 8. T2DM 9. Acute on CKD stage 3 resolved 10. 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 COPD 12. PUD s/p Bilroth II gastrectomy 13. 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 Gout 15. Kidney stones 16. Orthostatic hypotension off Northera 17. Gait disturbance 18. Post-op anemia 19. Hypernatremia resolved 20. Abormal LFTs PLAN: 1. Completed abx course, outpatient motility studies, needs dysphagia diet, trend LFTs and avoid hepatotoxins, f/u MRCP 2. Continue Diovan 40 qd and Lasix 20 qd as renal fxn stabilized, continue Plavix 75 mg QD, Coreg 3.125 mg BID and off Crestor 10 mg QHS pending LFT resolution. Monitor orthostasis, has not been taking Northera 100 qd 3. DVT and GI prophylaxis and analgesia as needed 4. Monitor Hgb and transfuse as needed 5. PT as tolerated -> SNF 6. Eventual f/u with Dr. Morales in office
--- NOTE | 2019-12-19 11:55 | PN ---
Progress Note (short form) - Note Progress Note: LFTs noted. ? secondary to cardiac dysfunction. Obtain MRCP to exclude alternate pathology Problem List - Problems (1) Abnormal liver function tests Code(s): R94.5 - ABNORMAL RESULTS OF LIVER FUNCTION STUDIES (2) Achalasia Code(s): K22.0 - ACHALASIA OF CARDIA (3) Anemia Code(s): D64.9 - ANEMIA, UNSPECIFIED Qualifiers: Anemia type: unspecified type Qualified Code(s): D64.9 - Anemia, unspecified
--- NOTE | 2019-12-19 12:43 | PN ---
Progress Note (short form) - Note Progress Note: ID CONSULT DICTATED TEMP ELEVATION NOTED COMPLETED COURSE OF UNASYN FOR PRESUMED ASP PNEUMONIA OBSERVE OFF ANTIBIOTICS RECULTURE FOR RECURRENT TEMP
--- NOTE | 2019-12-19 14:03 | DS ---
Physical Exam: SUBJECTIVE: Patient seen and examined at bedside. OBJECTIVE: Vital Signs Period Temp Pulse Resp BP Sys/Garcia Pulse Ox Last 24 Hr 98.2 F-99.6 F 63-75 18-18 129-148/48-76 92-99 PHYSICAL EXAM GENERAL: The patient is awake, alert, and fully oriented, in no acute distress. HEAD: Normal with no signs of trauma. EYES: PERRL, extraocular movements intact, sclera anicteric, conjunctiva clear. ENT: Ears normal, nares patent, oropharynx clear without exudates, moist mucous membranes. NECK: Trachea midline, full range of motion, supple. LUNGS: Breath sounds equal, clear to auscultation bilaterally, no wheezes, no crackles, no accessory muscle use. HEART: Regular rate and rhythm, S1, S2 without murmur, rub or gallop. ABDOMEN: Soft, nontender, nondistended, normoactive bowel sounds, no guarding, no rebound, no hepatosplenomegaly, no masses. EXTREMITIES: 2+ pulses, warm, well-perfused, no edema. NEUROLOGICAL: Cranial nerves II through XII grossly intact. Normal speech, gait not observed. PSYCH: Normal mood, normal affect. SKIN: Warm, dry, normal turgor, no rashes or lesions noted. LABS Laboratory Results - last 24 hr 12/17/19 12/18/19 12/18/19 20:40 16:33 21:47 WBC RBC Hgb Hct MCV MCH MCHC RDW Plt Count MPV Absolute Neuts (auto) Neutrophils % Lymphocytes % Monocytes % Eosinophils % Basophils % Nucleated RBC % Sodium Potassium Chloride Carbon Dioxide Anion Gap BUN Creatinine Est GFR (CKD-EPI)AfAm Est GFR (CKD-EPI)NonAf POC Glucometer 273 262 Random Glucose Calcium Total Bilirubin AST ALT Alkaline Phosphatase Total Protein Albumin COVID-19 ([facility]) Not detected 12/19/19 12/19/19 12/19/19 06:29 09:15 09:15 WBC 4.9 RBC 3.48 L Hgb 9.3 L Hct 28.5 L D MCV 82.1 MCH 26.8 MCHC 32.6 RDW 17.8 H Plt Count 325 D MPV 7.5 Absolute Neuts (auto) 4.0 Neutrophils % 81.2 Lymphocytes % 10.8 Monocytes % 6.2 Eosinophils % 1.2 Basophils % 0.6 Nucleated RBC % 0 Sodium 137 Potassium 4.6 Chloride 104 Carbon Dioxide 28 Anion Gap 5 L BUN 22.0 H Creatinine 1.1 Est GFR (CKD-EPI)AfAm 74.65 Est GFR (CKD-EPI)NonAf 64.41 POC Glucometer 177 Random Glucose 241 H Calcium 8.7 Total Bilirubin 0.6 AST 109 H ALT 184 H Alkaline Phosphatase 193 H Total Protein 6.8 Albumin 2.1 L COVID-19 ([facility]LLY) 12/19/19 11:34 WBC RBC Hgb Hct MCV MCH MCHC RDW Plt Count MPV Absolute Neuts (auto) Neutrophils % Lymphocytes % Monocytes % Eosinophils % Basophils % Nucleated RBC % Sodium Potassium Chloride Carbon Dioxide Anion Gap BUN Creatinine Est GFR (CKD-EPI)AfAm Est GFR (CKD-EPI)NonAf POC Glucometer 287 Random Glucose Calcium Total Bilirubin AST ALT Alkaline Phosphatase Total Protein Albumin COVID-19 ([facility]) HOSPITAL COURSE: Date of Admission:11/30/19 Date of Discharge: 12/19/19 Discharge Summary Problems reviewed: Yes Reason For Visit: FRACTURE OF HIP Current Active Problems Abnormal liver function tests (Acute) Neuropathy (Acute) Achalasia (Chronic) Condition: Stable - Instructions Diet, Activity, Other Instructions: You were admitted to the hospital because of a fall. While you were at the hospital, we evaluated you with lab work, blood work, and imaging. Based on our evaluation, we found that you broke your left femoral neck bone. You underwent surgery to fix your bone fracture. While you were at the hospital, you had low blood found on your blood work a couple of times and was given 1 unit of blood each time. Your liver enzymes were also found to be elevated. Please follow up with your Primary Care physician about this finding and please avoid taking Tylenol and stop taking Rosuvastatin until you follow up with your Primary Care physician. Diet Recommendation Please eat upright, small portioned, well chewed, minced diabetic diet food, and avoid laying down for 3 hours after eating. Imaging Findings The following imaging findings were found while you were at the hospital: A CAT scan of the spine in your neck found a nonspecific density slightly bigger than what was found on your CAT scan in 2013. Please follow up with the Oncologist about this finding and for a possible bone scan. An ultrasound of your kidney found a 0.5 cm imaging finding that may be a small amount of calcification or possibly a small angiomyolipoma. Please follow up with the Dope Firer about this finding. An ultrasound of the blood vessels in your neck found extensive atherosclerosis. Medications Please start taking Diovan 40mg daily for blood pressure control Please AVOID taking Tylenol due to your elevated liver enzymes until you follow up with your Primary Care physician. Please STOP taking Rosuvastatin due to your elevated liver enzymes until you follow up with your Primary Care physician. Please continue all of your medications as prescribed. Follow ups Please follow up with the Field Engineer Dr. Jayy Morales ([phone]) within 1 week. Please follow up with the Nailing Machine Operator Dr. Pardeep Saldana within 1 week for a colonoscopy due to your anemia. You will need to stop taking your Plavix for 5 days before the Colonoscopy. Please follow up with a motility specialist due to your difficulty swallowing: Dr. Yung Aponte from [facility] ([phone]), Dr Gael Graves at [facility]. Please follow up with the Oncologist Dr. Harini Slater within 2 weeks because of the CAT scan finding for a bone scan. Please follow up with the Dope Firer Dr. Gabriel Teague within 2 weeks because of the kidney ultrasound finding. Please follow up with the Primary Care physician Dr. Vikash Guerra within 1 week to check on your liver enzyme blood levels, which were high while you were at the hospital. If you experience worsening symptoms, chest pain, shortness of breath, abdominal pain, or worsening of your condition, please come to the emergency room or call 911. Referrals: Vikash Guerra MD [Primary Care Provider] - 1 Week (needs repeat LFTs) Alex Saldana DO [Staff Physician] - 1 Week (Colonoscopy with Plavix held for 5 days given history of colon polyps.) Jayy Morales MD [Staff Physician] - 1 Week Harini Slater MD [Staff Physician] - 2 Weeks (non specific density in C2 slightly bigger than CT in 2013. bone scan as out patient.) Gabriel Teague MD [Staff Physician] - 2 Weeks (Renal Ultrasound found a stable 0.5 cm echogenic focus which may represent an incidental cortical calcification or small angiomyolipoma and left renal atrophy.) Disposition: [facility] - Home Medications Comprehensive Discharge Medication List: Ambulatory Orders Carvedilol 3.125 mg PO BID 12/08/18 Tamsulosin HCl 0.4 mg PO DAILY 01/11/19 Clopidogrel Bisulfate [Clopidogrel] 75 mg PO DAILY 04/07/19 Melatonin 10 mg PO HS 04/07/19 Albuterol Sulfate [Proair Digihaler] 2 puff NEB TID PRN 05/31/19 Bimatoprost [Lumigan] 1 drop DAILY 05/31/19 Furosemide 20 mg PO DAILY 05/31/19 Albuterol 0.083% Nebulizer Fatuma [Ventolin 0.083% Nebulizer Soln -] 1 neb NEB QID 11/30/19 Budesonide/Formeterol Fumarate [SYMBICORT 160/4.5mcg -] 1 inh PO BID 11/30/19 Clopidogrel Bisulfate [Plavix -] 75 mg PO DAILY tablet 12/19/19 Docusate Sodium [Colace -] 100 mg PO Q12H PRN capsule 12/19/19 Escitalopram Oxalate [Lexapro -] 5 mg PO DAILY tablet 12/19/19 Guaifenesin [Mucinex -] 600 mg PO BID tablet.er 12/19/19 Heparin - 5,000 unit SQ TID vial 12/19/19 Insulin (Levemir) [Levemir Vial] 2 units SQ HS units 12/19/19 Insulin (Levemir) [Levemir Vial] 6 units SQ AM units 12/19/19 Insulin Sliding Scale [Novolog Vial Sliding Scale -] 1 vial SQ Q6HPO units 12/19/19 Valsartan [Diovan] 40 mg PO DAILY 30 Days #30 tablet 12/19/19 - Discharge Referral Referred to [facility] No ATTENDING PHYSICIAN STATEMENT I saw and evaluated the patient. I reviewed the resident's note and discussed the case with the resident. I agree with the resident's findings and plan as documented. SUBJECTIVE: OBJECTIVE: ASSESSMENT AND PLAN:
--- NOTE | 2019-12-19 14:52 | CONS ---
INFECTIOUS DISEASE CONSULTATION DATE OF CONSULTATION: DATE OF DICTATION: 12/19/2019 HISTORY: The patient is a 79-year-old male who is evaluated for fever. He was admitted to the hospital on November 30, 2019, after a fall with left hip trauma. He was found to have a left femoral neck fracture. Patient was taken to the operating room on December 01, 2019, where an intramedullary nail was placed. Postoperatively his course was complicated by some confusion. He was noted to have fever and was treated empirically with Unasyn for possible aspiration pneumonia. He completed a 6-day course. Patient is now noted to have recurrent fever. He is awake and responsive, although he does appear slightly confused. He offers no focal complaint. He denies any chest pain, shortness of breath, cough or sputum production. He has a Way catheter in place. No reports of vomiting or diarrhea. PAST MEDICAL HISTORY: Positive for COPD, diabetes, hypertension, hyperlipidemia, coronary artery disease, peripheral vascular disease, peptic ulcer disease, gouty arthritis, chronic kidney disease, BPH, achalasia. PAST SURGICAL HISTORY: Status post coronary artery bypass, pacemaker, femoropopliteal bypass, gastrectomy. ALLERGIES: To PREGABALIN. SOCIAL HISTORY: He lives in the community. He is a former smoker. SYSTEMS REVIEW: Neurologic: No loss of consciousness, seizure activity or focal weakness. Cardiac: Negative chest pain or palpitations. Respiratory: As per HPI. Gastrointestinal: Negative vomiting or diarrhea. Genitourinary: Negative for urinary tract infection. LABORATORY DATA: White count 4.9, hematocrit 28.5, platelet count 325. BUN 22, creatinine 1.1, total bilirubin 0.6, alkaline phosphatase 193, AST 109, ALT 184. Urine analysis previously positive for 829 white cells. COVID-19 negative. Blood cultures from December 16, 2019, negative. Chest x-ray: Congestive changes bilaterally. Ultrasound of the abdomen shows borderline hepatomegaly, fatty liver, status post cholecystectomy. No evidence of biliary tract obstruction. PHYSICAL EXAMINATION: General: He is awake. He is seated in bed in no acute distress. Vital Signs: Temperature 98.2, blood pressure 142/76, pulse 75 regular, respirations 18 per minute. HEENT: Sclerae are anicteric. Heart: Sounds S1, S2. Lungs: Scattered rhonchi bilaterally. Abdomen: Soft and nontender. No right upper quadrant tenderness to palpation. Extremities: Negative for edema. Surgical alice in place to the left hip. No erythema or drainage. Genitourinary: Way catheter is in place. IMPRESSION: 1. Status post fever. 2. Status post completion of course of Unasyn for presumed aspiration pneumonia. 3. Postoperative day number 13 left femur intramedullary nail. 4. Elevated liver enzymes. Source of fever not clear. Patient has completed a course of Unasyn for presumed pneumonia. At this point would observe off antibiotic therapy, repeat cultures for recurrent temps. GI evaluation noted patient for MRCP to exclude further liver or bile duct pathology. Will follow. Thank you for the kind referral. MELISSA ESPINOZA M.D. JUNIOR/[id number]
[2019-12-19] MEDS ORDERED: PIPERACILLIN/TAZOBACTAM 3.375 GM VIAL IVPB ONE (15:29)
[2019-12-19] MEDS ORDERED: DEXTROSE 5%-WATER - 50 ML IVPB ONE (15:30)
[2019-12-19] MEDS: PIPERACILLIN/TAZOB 3.375 GM 3.375 GM in DEXTROSE 5%-WATER - 50 ML IVPB SCH ×2 (15:36→17:47)
--- NOTE | 2019-12-19 16:34 | PN ---
Physical Exam: SUBJECTIVE: Patient seen and examined at bedside in the morning. The patient was A&Ox2 (name and place), and reported: chills, cough, spitting up with small amounts of blood, fatigue, body aches, and shortness of breath. The patient denies any hallucinations. Diffuse rhonchi on lung exam. In the afternoon the patient spiked a fever of 103.0F. Blood cultures, urine culture, and urinalysis was obtained. OBJECTIVE: Vital Signs Period Temp Pulse Resp BP Sys/Garcia Pulse Ox Last 24 Hr 98.2 F-103.0 F 63-80 18-18 129-148/48-76 92-99 GENERAL: The patient is A&Ox2 (name and place). HEAD: Normal with no signs of trauma. EYES: Extraocular movements intact, sclera anicteric. No ptosis. Pale conju ctiva. ENT: Ears normal, nares patent, oropharynx clear without exudates, dry mucous membranes. NECK: Trachea midline, full range of motion, supple. LUNGS: Decreased breath sounds bilaterally, no accessory muscle use. Diffuse rhonchi heard bilaterally. HEART: Regular rate and rhythm, S1, S2 without murmur, rub or gallop. ABDOMEN: Soft, nontender, nondistended, normoactive bowel sounds. no guarding, no rebound, no masses. EXTREMITIES: 2+ pulses, warm, well-perfused, no edema. NEUROLOGICAL: Normal speech, gait not observed. PSYCH: Normal mood, normal affect. SKIN: Warm, dry, normal turgor, no rashes or lesions noted. Capillary refill <3 seconds. nails somewhat pale. Laboratory Results - last 24 hr 12/17/19 12/18/19 12/18/19 20:40 16:33 21:47 WBC RBC Hgb Hct MCV MCH MCHC RDW Plt Count MPV Absolute Neuts (auto) Neutrophils % Lymphocytes % Monocytes % Eosinophils % Basophils % Nucleated RBC % Sodium Potassium Chloride Carbon Dioxide Anion Gap BUN Creatinine Est GFR (CKD-EPI)AfAm Est GFR (CKD-EPI)NonAf POC Glucometer 273 262 Random Glucose Calcium Total Bilirubin AST ALT Alkaline Phosphatase Total Protein Albumin COVID-19 (KELLY) Not detected 12/19/19 12/19/19 12/19/19 06:29 09:15 09:15 WBC 4.9 RBC 3.48 L Hgb 9.3 L Hct 28.5 L D MCV 82.1 MCH 26.8 MCHC 32.6 RDW 17.8 H Plt Count 325 D MPV 7.5 Absolute Neuts (auto) 4.0 Neutrophils % 81.2 Lymphocytes % 10.8 Monocytes % 6.2 Eosinophils % 1.2 Basophils % 0.6 Nucleated RBC % 0 Sodium 137 Potassium 4.6 Chloride 104 Carbon Dioxide 28 Anion Gap 5 L BUN 22.0 H Creatinine 1.1 Est GFR (CKD-EPI)AfAm 74.65 Est GFR (CKD-EPI)NonAf 64.41 POC Glucometer 177 Random Glucose 241 H Calcium 8.7 Total Bilirubin 0.6 AST 109 H ALT 184 H Alkaline Phosphatase 193 H Total Protein 6.8 Albumin 2.1 L COVID-19 (KELLY) 12/19/19 12/19/19 11:34 16:05 WBC RBC Hgb Hct MCV MCH MCHC RDW Plt Count MPV Absolute Neuts (auto) Neutrophils % Lymphocytes % Monocytes % Eosinophils % Basophils % Nucleated RBC % Sodium Potassium Chloride Carbon Dioxide Anion Gap BUN Creatinine Est GFR (CKD-EPI)AfAm Est GFR (CKD-EPI)NonAf POC Glucometer 287 249 Random Glucose Calcium Total Bilirubin AST ALT Alkaline Phosphatase Total Protein Albumin COVID-19 (KELLY) Active Medications Generic Name Dose Route Start Last Admin Trade Name Freq PRN Reason Stop Dose Admin Albuterol Sulfate 2 puff 12/13/19 11:09 Ventolin Hfa Inhaler - IH Q8H PRN SHORTNESS OF BREATH Budesonide/Formoterol Fumarate 1 puff 12/13/19 22:00 12/19/19 10:00 Symbicort 160/4.5mcg - IH 1 puff BID KADEEM Administration Carvedilol 3.125 mg 12/13/19 22:00 12/19/19 09:59 Coreg - PO 3.125 mg BID KADEEM Administration Clopidogrel Bisulfate 75 mg 12/14/19 10:00 12/19/19 09:58 Plavix - PO 75 mg DAILY KADEEM Administration Docusate Sodium 100 mg 12/13/19 11:09 Colace - PO Q12H PRN CONSTIPATION Escitalopram Oxalate 5 mg 12/10/19 14:29 12/19/19 10:00 Lexapro - PO 5 mg DAILY KADEEM Administration Furosemide 20 mg 12/14/19 10:00 12/19/19 10:00 Lasix - PO 20 mg DAILY KADEEM Administration Guaifenesin 600 mg 12/15/19 11:30 12/19/19 09:59 Mucinex - PO 600 mg BID KADEEM Administration Heparin Sodium (Porcine) 5,000 unit 12/13/19 14:00 12/19/19 14:56 Heparin - SQ 5,000 unit TID KADEEM Administration Piperacillin Sod/Tazobactam 50 mls @ 100 mls/hr 12/19/19 15:15 12/19/19 15:36 Sod 3.375 gm/ Dextrose IVPB 100 mls/hr Q8H-IV KADEEM Administration Protocol Insulin Aspart 1 vial 12/13/19 12:00 12/19/19 12:46 Novolog Vial Sliding Scale - SQ 4 units Q6HPO KADEEM Administration Protocol Insulin Detemir 2 units 12/12/19 22:00 12/18/19 21:48 Levemir Vial SQ 2 units HS KADEEM Administration Insulin Detemir 6 units 12/20/19 07:00 Levemir Vial SQ AM KADEEM Latanoprost 1 drop 12/14/19 22:00 12/18/19 21:49 Xalatan 0.005% Eye Drops - OU 1 drop HS KADEEM Administration Melatonin 10 mg 12/13/19 22:00 12/18/19 21:49 Melatonin PO 10 mg HS KADEEM Administration Tamsulosin HCl 0.4 mg 12/13/19 22:00 12/18/19 21:48 Flomax - PO 0.4 mg HS KADEEM Administration Valsartan 40 mg 12/12/19 11:30 12/19/19 09:59 Diovan - PO 40 mg DAILY KADEEM Administration ASSESSMENT/PLAN: 79 year old male patient with past medical history that includes CHF, CAD s/p PCI, CKD, s/p medtronic ICD, DM, PVD s/p partial gastrectomy, achalasia, penile implant, CABG, HTN, and HLD, who presented to the ED after a fall. 1. Femoral Neck Fracture s/p Intramedullary Nail Surgery - Monitoring for any acute changes 2. Fever secondary to possible infection - 103.0F - Blood cultures - Urine cultures - U/A 3. Acute Metabolic Encephalopathy secondary to Low Hemoglobin - Hgb at to 9.3 today - Monitoring Hgb - Monitoring Electrolytes - Patient is A&Ox2 (name and place) - Monitoring patient's A&O status 4. APRYL - resolved - Creatinine is 1.1 today - Monitoring the Creatinine 5. Elevated LFTs - AST 109 (High) - ALT 184 (High) - Alk Phos 193 (High) - Total Bilirubin 0.6 (WNL) - Abdominal U/S showed borderline hepatomegaly with probable mild diffuse fatty infiltration of the liver. - Monitoring LFTs - MRCP could not be done due to non-MRI compatible items in the patient 6. CHF - ECHO in 05/2019 showed EF 60-65% - Repeat ECHO shows EF 55%, mild pulm htn, and normal right and left ventricles in size and function. - Lasix if crackles come back 7. Dehydration - resolved - Sodium 137 (within normal limits) - Chloride 104 (within normal limits) - Monitoring electrolytes - Soft Diet with [place] Thickened Liquids 8. Achalasia - The patient has the Soft Diet with [place] Thickened Liquids 9. DM - Novolog sliding scale 10. HTN - Coreg, Lasix, Valsartan 11. HLD - Statin held # FEN - Monitoring Electrolytes, Soft Diet with [place] Thickened Liquids DVT PPx - Heparin SQ and Plavix Dispo - Following up on blood work and lab work from the fever. Possible discharge tomorrow. Visit type - Emergency Visit Emergency Visit: Yes ED Registration Date: 11/30/19 Care time: The patient presented to the Emergency Department on the above date and was hospitalized for further evaluation of their emergent condition. - New Patient This patient is new to me today: No - Critical Care Critical Care patient: No - Discharge Referral Referred to [facility] No - Medication Review Med list reviewed for High Risk Meds patients 65 and older: Yes ATTENDING PHYSICIAN STATEMENT I saw and evaluated the patient. I reviewed the resident's note and discussed the case with the resident. I agree with the resident's findings and plan as documented. SUBJECTIVE: OBJECTIVE: ASSESSMENT AND PLAN:
[2019-12-19 17:00] LABS: EPI CELLS 19 /uL (0-25.1); HYALINE CASTS 2 /uL (0-3.1); URINE APPEARANCE CLEAR; URINE BACTERIA 32 /uL (0-1359); URINE BILIRUBIN NEGATIVE (NEGATIVE); URINE COLOR YELLOW; URINE GLUCOSE (UA) 2+ (NEGATIVE); URINE KETONE NEGATIVE (NEGATIVE); URINE LEUK ESTERASE 2+ (NEGATIVE); URINE NITRITE NEGATIVE (NEGATIVE); URINE PROTEIN 2+ (NEGATIVE); URINE RBC 20 /uL (0-23.9); URINE WBC 213 /uL (0-25.8)
[2019-12-19] MEDS: TAMSULOSIN HCL 0.4 MG CAP PO SCH (22:28)
[2019-12-19] MEDS: MELATONIN 5 MG TABLETS PO SCH (22:28)
[2019-12-19] MEDS: LATANOPROST 0.005% OPHTH SOLN 2.5ML BOTTLE OU SCH (22:29)
[2019-12-19] MEDS ORDERED: oxyCODONE HCL 5 MG TABLET PO ONE (23:15)
[2019-12-20] MEDS ORDERED: PIPERACILLIN/TAZOBACTAM 3.375 GM VIAL IVPB ONE ×3 (01:04→17:29)
[2019-12-20] MEDS ORDERED: DEXTROSE 5%-WATER - 50 ML IVPB ONE ×3 (01:04→17:29)
[2019-12-20] MEDS: PIPERACILLIN/TAZOB 3.375 GM 3.375 GM in DEXTROSE 5%-WATER - 50 ML IVPB SCH ×3 (01:09→17:32)
[2019-12-20] MEDS: INSULIN SLIDING SCALE (NOVOLOG) 1 VIAL SQ SCH ×4 (05:18→17:27)
[2019-12-20] MEDS: HEPARIN NA (PORCINE) 5,000 UNITS/ML 1ML VIAL SQ SCH ×3 (05:18→21:25)
[2019-12-20] MEDS: INSULIN (LEVEMIR) 100 UNITS/ML UNITS SQ SCH ×2 (06:09→21:25)
[2019-12-20 08:46] LABS: BASO % 0.8 % (0-2.0); HEMATOCRIT 25.8 % (35.4-49); HEMOGLOBIN 8.4 GM/dL (11.7-16.9); LYMPH % 12.7 % (8-40); MCHC 32.7 g/dl (32.0-35.9); MEAN CELL VOLUME 82.6 fl (80-96); MEAN PLT VOLUME 7.8 fl (7.5-11.1); MONO % 6.8 % (3.8-10.2); NEUT % 78.7 % (42.8-82.8); PLATELET COUNT 307 K/MM3 (134-434); RBC 3.12 M/mm3 (4.00-5.60); RDW 18.2 % (11.9-15.9)
[2019-12-20 09:15] LABS: BILIRUBIN,TOTAL 1.2 mg/dL (0.2-1); BLOOD UREA NITROGEN 23.1 mg/dL (7-18); CALCIUM 8.3 mg/dL (8.5-10.1); CREATININE 1.3 mg/dL (0.55-1.3); MAGNESIUM 2.2 mg/dL (1.8-2.4); PHOSPHOROUS 3.4 mg/dL (2.5-4.9); POTASSIUM 4.3 mmol/L (3.5-5.1); TOT PROT 6.4 g/dl (6.4-8.2)
[2019-12-20] MEDS: oxyCODONE HCL 5 MG TABLET PO PRN ×2 (09:39→21:26)
[2019-12-20] MEDS: guaiFENesin 600 MG TABLET.ER (FP) PO SCH ×2 (09:40→21:26)
[2019-12-20] MEDS: ESCITALOPRAM OXALATE 10 MG TABLET PO SCH (09:40)
[2019-12-20] MEDS: CARVEDILOL 3.125 MG TABLET (FP) PO SCH ×2 (09:40→21:26)
[2019-12-20] MEDS: CLOPIDOGREL BISULFATE 75 MG TABLET (FP) PO SCH (09:40)
[2019-12-20] MEDS: VALSARTAN 40 MG TABLET (FP) PO SCH (09:41)
[2019-12-20] MEDS: FUROSEMIDE 20 MG TABLET (FP) PO SCH (09:41)
[2019-12-20] MEDS: BUDESONIDE/FORMETEROL FUMARATE 160/4.5 mcg INHALER IH SCH ×2 (09:42→21:26)
[2019-12-20] MEDS ORDERED: POLYETHYLENE GLYCOL 3350 119 GM BTL PO SCH (10:00)
[2019-12-20] MEDS ORDERED: INSULIN (NOVOLOG) ASPART 100 UNITS/ML 10ML VIAL ONE ×3 (11:05→21:01)
--- NOTE | 2019-12-20 12:24 | PN ---
Progress Note, Physician Chief Complaint: Events noted Not in distress except for limitation in LE movement post op hip surgery Generalized weakness History of Present Illness: Patient was seen and examined. Awake and alert. Chart was reviewed Denies chest pain, SOB or palpitations - Current Medication List Current Medications: Active Medications Albuterol Sulfate (Ventolin Hfa Inhaler -) 2 puff IH Q8H PRN PRN Reason: SHORTNESS OF BREATH Budesonide/Formoterol Fumarate (Symbicort 160/4.5mcg -) 1 puff IH BID [facility] Last Admin: 12/20/19 09:42 Dose: 1 puff Documented by: Carvedilol (Coreg -) 3.125 mg PO BID [facility] Last Admin: 12/20/19 09:40 Dose: 3.125 mg Documented by: Clopidogrel Bisulfate (Plavix -) 75 mg PO DAILY [facility] Last Admin: 12/20/19 09:40 Dose: 75 mg Documented by: Docusate Sodium (Colace -) 100 mg PO Q12H PRN PRN Reason: CONSTIPATION Last Admin: 12/20/19 09:42 Dose: 100 mg Documented by: Escitalopram Oxalate (Lexapro -) 5 mg PO DAILY [facility] Last Admin: 12/20/19 09:40 Dose: 5 mg Documented by: Furosemide (Lasix -) 20 mg PO DAILY [facility] Last Admin: 12/20/19 09:41 Dose: 20 mg Documented by: Guaifenesin (Mucinex -) 600 mg PO BID [facility] Last Admin: 12/20/19 09:40 Dose: 600 mg Documented by: Heparin Sodium (Porcine) (Heparin -) 5,000 unit SQ TID [facility] Last Admin: 12/20/19 05:18 Dose: 5,000 unit Documented by: Piperacillin Sod/Tazobactam (Sod 3.375 gm/ Dextrose) 50 mls @ 100 mls/hr IVPB Q8H-IV [facility]; Protocol Last Admin: 12/20/19 09:41 Dose: 100 mls/hr Documented by: Insulin Aspart (Novolog Vial Sliding Scale -) 1 vial SQ Q6HPO [facility]; Protocol Last Admin: 12/20/19 11:07 Dose: 2 units Documented by: Insulin Detemir (Levemir Vial) 2 units SQ HS [facility] Last Admin: 12/19/19 22:28 Dose: 2 units Documented by: Insulin Detemir (Levemir Vial) 6 units SQ AM [facility] Last Admin: 12/20/19 06:09 Dose: 6 units Documented by: Latanoprost (Xalatan 0.005% Eye Drops -) 1 drop OU [facility] Last Admin: 12/19/19 22:29 Dose: 1 drop Documented by: Melatonin (Melatonin) 10 mg PO [facility] Last Admin: 12/19/19 22:28 Dose: 10 mg Documented by: Oxycodone HCl (Roxicodone -) 5 mg PO Q4H PRN PRN Reason: PAIN LEVEL 6-10 Last Admin: 12/20/19 09:39 Dose: 5 mg Documented by: Polyethylene Glycol (Miralax (For Daily Use) -) 17 gm PO DAILY [facility] Last Admin: 12/20/19 09:56 Dose: 17 gm Documented by: Tamsulosin HCl (Flomax -) 0.4 mg PO [facility] Last Admin: 12/19/19 22:28 Dose: 0.4 mg Documented by: Valsartan (Diovan -) 40 mg PO DAILY [facility] Last Admin: 12/20/19 09:41 Dose: 40 mg Documented by: - Objective Vital Signs: Vital Signs Temperature 98.1 F 12/20/19 10:00 Pulse Rate 71 12/20/19 10:00 Respiratory Rate 18 12/20/19 10:00 Blood Pressure 119/60 12/20/19 10:00 O2 Sat by Pulse Oximetry (%) 95 12/20/19 10:00 HENT: Yes: Atraumatic Neck: Yes: Supple Cardiovascular: Yes: Regular Rate and Rhythm, S1, S2 Respiratory: Yes: CTA Bilaterally Gastrointestinal: Yes: Normal Bowel Sounds, Soft. No: Tenderness Edema: No Labs: CBC, BMP 12/20/19 08:05 12/20/19 08:05 Problem List - Problems (1) Fall Code(s): W19.XXXA - UNSPECIFIED FALL, INITIAL ENCOUNTER Qualifiers: Encounter type: initial encounter Qualified Code(s): W19.XXXA - Unspecified fall, initial encounter (2) Hip fracture, left Code(s): S72.002A - FRACTURE OF UNSP PART OF NECK OF LEFT FEMUR, INIT Qualifiers: Encounter type: initial encounter Fracture type: closed Qualified Code (s): S72.002A - Fracture of unspecified part of neck of left femur, initial encounter for closed fracture (3) Pneumonia Code(s): J18.9 - PNEUMONIA, UNSPECIFIED ORGANISM Qualifiers: Pneumonia type: due to unspecified organism Laterality: unspecified laterality Lung location: unspecified part of lung Qualified Code(s): J18.9 - Pneumonia, unspecified organism (4) Acute congestive heart failure Code(s): I50.9 - HEART FAILURE, UNSPECIFIED (5) CAD (coronary artery disease) Code(s): I25.10 - ATHSCL HEART DISEASE OF [place] CORONARY ARTERY W/O ANG PCTRS Qualifiers: Coronary Disease-Associated Artery/Lesion type: [place] artery [place] vs. transplanted heart: [place] heart Associated angina: without angina Qualified Code(s): I25.10 - Atherosclerotic heart disease of [place] coronary artery without angina pectoris (6) COPD (chronic obstructive pulmonary disease) Code(s): J44.9 - CHRONIC OBSTRUCTIVE PULMONARY DISEASE, UNSPECIFIED Qualifiers: COPD type: unspecified COPD Qualified Code(s): J44.9 - Chronic obstructive pulmonary disease, unspecified (7) Hx of CABG Code(s): Z95.1 - PRESENCE OF AORTOCORONARY BYPASS GRAFT (8) Hyperlipidemia Code(s): E78.5 - HYPERLIPIDEMIA, UNSPECIFIED Qualifiers: Hyperlipidemia type: pure hypercholesterolemia Qualified Code(s): E78.00 - Pure hypercholesterolemia, unspecified; E78.0 - Pure hypercholesterolemia (9) ICD (implantable cardioverter-defibrillator) in place Code(s): Z95.810 - PRESENCE OF AUTOMATIC (IMPLANTABLE) CARDIAC DEFIBRILLATOR (10) NYHA class 2 acute on chronic systolic heart failure Code(s): I50.23 - ACUTE ON CHRONIC SYSTOLIC (CONGESTIVE) HEART FAILURE (11) Pulmonary HTN Code(s): I27.20 - PULMONARY HYPERTENSION, UNSPECIFIED (12) Type 2 diabetes mellitus Code(s): E11.9 - TYPE 2 DIABETES MELLITUS WITHOUT COMPLICATIONS (13) Acute on chronic diastolic CHF (congestive heart failure) Code(s): I50.33 - ACUTE ON CHRONIC DIASTOLIC (CONGESTIVE) HEART FAILURE (14) Acute on chronic renal insufficiency Code(s): N28.9 - DISORDER OF KIDNEY AND URETER, UNSPECIFIED; N18.9 - CHRONIC KIDNEY DISEASE, UNSPECIFIED (15) Orthostatic hypotension Code(s): I95.1 - ORTHOSTATIC HYPOTENSION Assessment/Plan 1. Post Left IM nail for femoral neck hip fracture 2. Aspiration pneumonia 3. Chronic LV systolic heart failure (ischemic cardiomyopathy EF 45-50%) 4. CAD s/p [place], CABG, PCI/stents, angina pectoris 5. Post ICD implant 6. HTN 7. Hypercholesterolemia 8. T2DM 9. Acute on CKD stage 3 10. PAD s/p fem-pop bypass and [employer] 11. COPD 12. PUD s/p Bilroth II gastrectomy 13. 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 Gout 15. Kidney stones 16. Orthostatic hypotension off Northera 17. Gait disturbance 18. Post-op anemia 19. Hypernatremia 20. Abormal LFTs PLAN: 1. Antibiotic coverage 2. Continue Diovan 40 mg QD and Lasix 20 mg QD and monitor renal function and electrolytes. Continue Plavix 75 mg QD, Coreg 3.125 mg BID and off Crestor 10 mg QHS pending LFT resolution. Monitor orthostasis, has not been taking Northera 100 qd 3. DVT and GI prophylaxis and analgesia as needed 4. Monitor Hgb and transfuse as needed 5. PT as tolerated and eventually SNF 6. Follow up with Dr. Morales ([facility]) in office upon discharge Jayy Morales MD
[2019-12-20] MEDS ORDERED: GLYCERIN 1 RECTAL SUPPOSITORY, ADULT RC ONE (13:42)
[2019-12-20] MEDS ORDERED: DOCUSATE SODIUM 100 MG CAPSULE (FP) PO PRN (13:46)
--- NOTE | 2019-12-20 15:11 | PN ---
Progress Note, Physician History of Present Illness: AWAKE IN BED SL CONFUSED OFFERS NO COMPLAINTS TEMPS DOWN NO RECURRENT HIGH GRADE TEMP WBC WNL CULTURES PENDING - Current Medication List Current Medications: Active Medications Albuterol Sulfate (Ventolin Hfa Inhaler -) 2 puff IH Q8H PRN PRN Reason: SHORTNESS OF BREATH Budesonide/Formoterol Fumarate (Symbicort 160/4.5mcg -) 1 puff IH BID [facility] Last Admin: 12/20/19 09:42 Dose: 1 puff Documented by: Carvedilol (Coreg -) 3.125 mg PO BID [facility] Last Admin: 12/20/19 09:40 Dose: 3.125 mg Documented by: Clopidogrel Bisulfate (Plavix -) 75 mg PO DAILY [facility] Last Admin: 12/20/19 09:40 Dose: 75 mg Documented by: Docusate Sodium (Colace -) 200 mg PO Q12H PRN PRN Reason: CONSTIPATION Escitalopram Oxalate (Lexapro -) 5 mg PO DAILY [facility] Last Admin: 12/20/19 09:40 Dose: 5 mg Documented by: Furosemide (Lasix -) 20 mg PO DAILY [facility] Last Admin: 12/20/19 09:41 Dose: 20 mg Documented by: Guaifenesin (Mucinex -) 600 mg PO BID [facility] Last Admin: 12/20/19 09:40 Dose: 600 mg Documented by: Heparin Sodium (Porcine) (Heparin -) 5,000 unit SQ TID [facility] Last Admin: 12/20/19 14:03 Dose: 5,000 unit Documented by: Piperacillin Sod/Tazobactam (Sod 3.375 gm/ Dextrose) 50 mls @ 100 mls/hr IVPB Q8H-IV [facility]; Protocol Last Admin: 12/20/19 09:41 Dose: 100 mls/hr Documented by: Insulin Aspart (Novolog Vial Sliding Scale -) 1 vial SQ Q6HPO [facility]; Protocol Last Admin: 12/20/19 11:07 Dose: 2 units Documented by: Insulin Detemir (Levemir Vial) 2 units SQ HS [facility] Last Admin: 12/19/19 22:28 Dose: 2 units Documented by: Insulin Detemir (Levemir Vial) 6 units SQ AM [facility] Last Admin: 12/20/19 06:09 Dose: 6 units Documented by: Latanoprost (Xalatan 0.005% Eye Drops -) 1 drop OU [facility] Last Admin: 12/19/19 22:29 Dose: 1 drop Documented by: Melatonin (Melatonin) 10 mg PO [facility] Last Admin: 12/19/19 22:28 Dose: 10 mg Documented by: Mineral Oil (Fleet Mineral Oil Rectal Enema -) 133 ml RC NOW ONE Stop: 12/20/19 18:01 Oxycodone HCl (Roxicodone -) 5 mg PO Q4H PRN PRN Reason: PAIN LEVEL 6-10 Last Admin: 12/20/19 09:39 Dose: 5 mg Documented by: Polyethylene Glycol (Miralax (For Daily Use) -) 17 gm PO TID [facility] Tamsulosin HCl (Flomax -) 0.4 mg PO [facility] Last Admin: 12/19/19 22:28 Dose: 0.4 mg Documented by: Valsartan (Diovan -) 40 mg PO DAILY [facility] Last Admin: 12/20/19 09:41 Dose: 40 mg Documented by: - Objective Vital Signs: Vital Signs Temperature 99.0 F 12/20/19 13:11 Pulse Rate 71 12/20/19 13:11 Respiratory Rate 18 12/20/19 13:11 Blood Pressure 138/59 L 12/20/19 13:11 O2 Sat by Pulse Oximetry (%) 95 12/20/19 13:11 Constitutional: Yes: No Distress Eyes: Yes: Conjunctiva Clear Cardiovascular: Yes: Regular Rate and Rhythm, S1, S2 Respiratory: Yes: CTA Bilaterally Gastrointestinal: Yes: Normal Bowel Sounds, Soft Extremities: No: Calf Tenderness Edema: No Integumentary: Yes: Other (L HIP SURGICAL WOUNDS NO ERYTHEMA/DRAINAGE) Labs: CBC, BMP 12/20/19 08:05 12/20/19 08:05 INR, PTT INR 1.08 (0.83-1.09) 12/01/19 06:40 Assessment/Plan FEVER ? SOURCE S/P IM NAIL L FEMUR AWAIT C/S CONTINUE ZOSYN + STAT DOSE VANCOMYCIN OOB INCENTIVE SPIROMETRY
--- NOTE | 2019-12-20 15:12 | PN ---
Physical Exam: SUBJECTIVE: Patient seen and examined at bedside. The patient reports constipation, not having had a bowel movement in a long time, and pain in his whole body, but especially in his left leg. The patient denies hallucinations, fever/chills, shortness of breath, cough, bowel or bladder problems, and diarrhea. He is A&Ox2 (name and place). OBJECTIVE: Vital Signs Period Temp Pulse Resp BP Sys/Garcia Pulse Ox Last 24 Hr 97.9 F-101.6 F 64-80 18-18 103-138/45-60 95-97 GENERAL: The patient is A&Ox2 (name and place). HEAD: Normal with no signs of trauma. EYES: Extraocular movements intact, sclera anicteric. No ptosis. Pale conjuctiva. ENT: Ears normal, nares patent, oropharynx clear without exudates, dry mucous membranes. NECK: Trachea midline, full range of motion, supple. LUNGS: Decreased breath sounds bilaterally, no accessory muscle use. HEART: Regular rate and rhythm, S1, S2 without murmur, rub or gallop. ABDOMEN: Soft, nontender, nondistended, hypoactive bowel sounds. no guarding, no rebound, no masses. EXTREMITIES: 2+ pulses, warm, well-perfused, no edema. NEUROLOGICAL: Normal speech, gait not observed. PSYCH: Normal mood, normal affect. SKIN: Warm, dry, normal turgor, no rashes or lesions noted. Capillary refill <3 seconds. nails somewhat pale. Laboratory Results - last 24 hr 12/19/19 12/19/19 12/19/19 16:00 16:05 22:10 WBC RBC Hgb Hct MCV MCH MCHC RDW Plt Count MPV Absolute Neuts (auto) Neutrophils % Lymphocytes % Monocytes % Eosinophils % Basophils % Nucleated RBC % Sodium Potassium Chloride Carbon Dioxide Anion Gap BUN Creatinine Est GFR (CKD-EPI)AfAm Est GFR (CKD-EPI)NonAf POC Glucometer 249 272 Random Glucose Calcium Phosphorus Magnesium Total Bilirubin AST ALT Alkaline Phosphatase Total Protein Albumin Urine Color Yellow Urine Appearance Clear Urine pH 5.0 Ur Specific [place] 1.015 Urine Protein 2+ H Urine Glucose (UA) 2+ H Urine Ketones Negative Urine Blood Negative Urine Nitrite Negative Urine Bilirubin Negative Urine Urobilinogen 1.0 Ur Leukocyte Esterase 2+ H Urine WBC (Auto) 213 Urine RBC (Auto) 20 Urine Casts (Auto) 2 U Epithel Cells (Auto) 19 Urine Bacteria (Auto) 32 12/20/19 12/20/19 12/20/19 05:16 08:05 08:05 WBC 5.0 RBC 3.12 L Hgb 8.4 L Hct 25.8 L MCV 82.6 MCH 27.0 MCHC 32.7 RDW 18.2 H Plt Count 307 MPV 7.8 Absolute Neuts (auto) 3.9 Neutrophils % 78.7 Lymphocytes % 12.7 Monocytes % 6.8 Eosinophils % 1.0 Basophils % 0.8 Nucleated RBC % 0 Sodium 139 Potassium 4.3 Chloride 105 Carbon Dioxide 25 Anion Gap 10 BUN 23.1 H Creatinine 1.3 Est GFR (CKD-EPI)AfAm 61.00 Est GFR (CKD-EPI)NonAf 52.63 POC Glucometer 162 Random Glucose 199 H Calcium 8.3 L Phosphorus 3.4 Magnesium 2.2 Total Bilirubin 1.2 H AST 108 H ALT 165 H Alkaline Phosphatase 178 H Total Protein 6.4 Albumin 2.0 L Urine Color Urine Appearance Urine pH Ur Specific [place] Urine Protein Urine Glucose (UA) Urine Ketones Urine Blood Urine Nitrite Urine Bilirubin Urine Urobilinogen Ur Leukocyte Esterase Urine WBC (Auto) Urine RBC (Auto) Urine Casts (Auto) U Epithel Cells (Auto) Urine Bacteria (Auto) 12/20/19 10:57 WBC RBC Hgb Hct MCV MCH MCHC RDW Plt Count MPV Absolute Neuts (auto) Neutrophils % Lymphocytes % Monocytes % Eosinophils % Basophils % Nucleated RBC % Sodium Potassium Chloride Carbon Dioxide Anion Gap BUN Creatinine Est GFR (CKD-EPI)AfAm Est GFR (CKD-EPI)NonAf POC Glucometer 241 Random Glucose Calcium Phosphorus Magnesium Total Bilirubin AST ALT Alkaline Phosphatase Total Protein Albumin Urine Color Urine Appearance Urine pH Ur Specific [place] Urine Protein Urine Glucose (UA) Urine Ketones Urine Blood Urine Nitrite Urine Bilirubin Urine Urobilinogen Ur Leukocyte Esterase Urine WBC (Auto) Urine RBC (Auto) Urine Casts (Auto) U Epithel Cells (Auto) Urine Bacteria (Auto) Active Medications Generic Name Dose Route Start Last Admin Trade Name Freq PRN Reason Stop Dose Admin Albuterol Sulfate 2 puff 12/13/19 11:09 Ventolin Hfa Inhaler - IH Q8H PRN SHORTNESS OF BREATH Budesonide/Formoterol Fumarate 1 puff 12/13/19 22:00 12/20/19 09:42 Symbicort 160/4.5mcg - IH 1 puff BID KADEEM Administration Carvedilol 3.125 mg 12/13/19 22:00 12/20/19 09:40 Coreg - PO 3.125 mg BID KADEEM Administration Clopidogrel Bisulfate 75 mg 12/14/19 10:00 12/20/19 09:40 Plavix - PO 75 mg DAILY KADEEM Administration Docusate Sodium 200 mg 12/20/19 13:46 Colace - PO Q12H PRN CONSTIPATION Escitalopram Oxalate 5 mg 12/10/19 14:29 12/20/19 09:40 Lexapro - PO 5 mg DAILY KADEEM Administration Furosemide 20 mg 12/14/19 10:00 12/20/19 09:41 Lasix - PO 20 mg DAILY KADEEM Administration Guaifenesin 600 mg 12/15/19 11:30 12/20/19 09:40 Mucinex - PO 600 mg BID KADEEM Administration Heparin Sodium (Porcine) 5,000 unit 12/13/19 14:00 12/20/19 14:03 Heparin - SQ 5,000 unit TID KADEEM Administration Piperacillin Sod/Tazobactam 50 mls @ 100 mls/hr 12/19/19 15:15 12/20/19 09:41 Sod 3.375 gm/ Dextrose IVPB 100 mls/hr Q8H-IV KADEEM Administration Protocol Insulin Aspart 1 vial 12/13/19 12:00 12/20/19 11:07 Novolog Vial Sliding Scale - SQ 2 units Q6HPO KADEEM Administration Protocol Insulin Detemir 2 units 12/12/19 22:00 12/19/19 22:28 Levemir Vial SQ 2 units HS KADEEM Administration Insulin Detemir 6 units 12/20/19 07:00 12/20/19 06:09 Levemir Vial SQ 6 units AM KADEEM Administration Latanoprost 1 drop 12/14/19 22:00 12/19/19 22:29 Xalatan 0.005% Eye Drops - OU 1 drop HS KADEEM Administration Melatonin 10 mg 12/13/19 22:00 12/19/19 22:28 Melatonin PO 10 mg HS KADEEM Administration Mineral Oil 133 ml 12/20/19 18:00 Fleet Mineral Oil Rectal Enema - RC 12/20/19 18:01 NOW ONE Oxycodone HCl 5 mg 12/20/19 09:07 12/20/19 09:39 Roxicodone - PO 5 mg Q4H PRN Administration PAIN LEVEL 6-10 Polyethylene Glycol 17 gm 12/20/19 14:00 Miralax (For Daily Use) - PO TID KADEEM Tamsulosin HCl 0.4 mg 12/13/19 22:00 12/19/19 22:28 Flomax - PO 0.4 mg HS KADEEM Administration Valsartan 40 mg 12/12/19 11:30 12/20/19 09:41 Diovan - PO 40 mg DAILY KADEEM Administration ASSESSMENT/PLAN: 79 year old male patient with past medical history that includes CHF, CAD s/p PCI, CKD, s/p medtronic ICD, DM, PVD s/p partial gastrectomy, achalasia, penile implant, CABG, HTN, and HLD, who presented to the ED after a fall. 1. Femoral Neck Fracture s/p Intramedullary Nail Surgery - Monitoring for any acute changes - Oxycodone 5mg Q4H PRN for pain 2. Fever secondary to possible infection - Blood cultures - Urine cultures - U/A showed 2+ Leuk Est, 2+ Protein, and 2+ Glucose - On Zosyn 3.375gm 3. Constipation possibly secondary to opiate pain medications - No bowel movement in 7 days per chart - Colace 200mg Q12 - Miralax 17gm TID - 2 Glycerin Bowel Suppositories - Mineral Oil Enema 4. Acute Metabolic Encephalopathy possibly secondary to Low Hemoglobin - Hgb at to 8.4 today - Monitoring Hgb - Monitoring Electrolytes - Patient is A&Ox2 (name and place) - Monitoring patient's A&O status 5. APRYL - resolved - Creatinine is 1.3 today - Monitoring the Creatinine 6. Elevated LFTs - AST 108 (High) - ALT 165 (High) - Alk Phos 178 (High) - Total Bilirubin 1.2 (High) - Abdominal U/S showed borderline hepatomegaly with probable mild diffuse fatty infiltration of the liver. - Monitoring LFTs - MRCP could not be done due to non-MRI compatible items in the patient 7. CHF - ECHO in 05/2019 showed EF 60-65% - Repeat ECHO shows EF 55%, mild pulm htn, and normal right and left ventricles in size and function. - Lasix if crackles come back 8. Dehydration - resolved - Sodium 139 (within normal limits) - Chloride 105 (within normal limits) - Monitoring electrolytes - Soft Diet with Orr Thickened Liquids 9. Achalasia - The patient has the Soft Diet with Orr Thickened Liquids 10. DM - Novolog sliding scale 11. HTN - Coreg, Lasix, Valsartan 12. HLD - Statin held # FEN - Monitoring Electrolytes, Soft Diet with Orr Thickened Liquids DVT PPx - Heparin SQ and Plavix Visit type - Emergency Visit Emergency Visit: Yes ED Registration Date: 11/30/19 Care time: The patient presented to the Emergency Department on the above date and was hospitalized for further evaluation of their emergent condition. - New Patient This patient is new to me today: No - Critical Care Critical Care patient: No - Discharge Referral Referred to [facility] Med P.C.: No - Medication Review Med list reviewed for High Risk Meds patients 65 and older: Yes ATTENDING PHYSICIAN STATEMENT I saw and evaluated the patient. I reviewed the resident's note and discussed the case with the resident. I agree with the resident's findings and plan as documented. SUBJECTIVE: OBJECTIVE: ASSESSMENT AND PLAN:
[2019-12-20] MEDS ORDERED: VANCOMYCIN 1,000 MG in DEXTROSE 5%-WATER - 250 ML IVPB ONE (15:15)
[2019-12-20] MEDS ORDERED: VANCOMYCIN 1 GRAM (PRE-DOCKED) 1,000 MG/250 ML BAG IVPB ONE (15:31)
[2019-12-20] MEDS: POLYETHYLENE GLYCOL 3350 119 GM BTL PO SCH ×2 (16:01→21:26)
[2019-12-20] MEDS ORDERED: PT OWN MED DRAWER 7, Y5N ONE (17:29)
[2019-12-20] MEDS ORDERED: MINERAL OIL ENEMA 133 ML ENEMA RC ONE (18:00)
--- NOTE | 2019-12-20 18:25 | PN ---
Teaching Attending Note Name of Resident: Nate Valentino ATTENDING PHYSICIAN STATEMENT I saw and evaluated the patient. I reviewed the resident's note and discussed the case with the resident. I agree with the resident's findings and plan as documented. SUBJECTIVE: patient had fever 103. was not dischrged to rehab, patient is more awake and millicent k to his baseline , more talkative OBJECTIVE: Vital Signs Temperature 99.0 F 12/20/19 13:11 Pulse Rate 71 12/20/19 13:11 Respiratory Rate 18 12/20/19 13:11 Blood Pressure 138/59 L 12/20/19 13:11 O2 Sat by Pulse Oximetry (%) 95 12/20/19 13:11 PE; per resident's note CBCD WBC 5.0 K/mm3 (4.0-10.0) 12/20/19 08:05 RBC 3.12 M/mm3 (4.00-5.60) L 12/20/19 08:05 Hgb 8.4 GM/dL (11.7-16.9) L 12/20/19 08:05 Hct 25.8 % (35.4-49) L 12/20/19 08:05 MCV 82.6 fl (80-96) 12/20/19 08:05 MCHC 32.7 g/dl (32.0-35.9) 12/20/19 08:05 RDW 18.2 % (11.9-15.9) H 12/20/19 08:05 Plt Count 307 K/MM3 (134-434) 12/20/19 08:05 MPV 7.8 fl (7.5-11.1) 12/20/19 08:05 CMP Sodium 139 mmol/L (136-145) 12/20/19 08:05 Potassium 4.3 mmol/L (3.5-5.1) 12/20/19 08:05 Chloride 105 mmol/L (98-107) 12/20/19 08:05 Carbon Dioxide 25 mmol/L (21-32) 12/20/19 08:05 Anion Gap 10 MMOL/L (8-16) 12/20/19 08:05 BUN 23.1 mg/dL (7-18) H 12/20/19 08:05 Creatinine 1.3 mg/dL (0.55-1.3) 12/20/19 08:05 Random Glucose 199 mg/dL (74-106) H 12/20/19 08:05 Calcium 8.3 mg/dL (8.5-10.1) L 12/20/19 08:05 Total Bilirubin 1.2 mg/dL (0.2-1) H 12/20/19 08:05 AST 108 U/L (15-37) H 12/20/19 08:05 ALT 165 U/L (13-61) H 12/20/19 08:05 Alkaline Phosphatase 178 U/L (45-117) H 12/20/19 08:05 Total Protein 6.4 g/dl (6.4-8.2) 12/20/19 08:05 Albumin 2.0 g/dl (3.4-5.0) L 12/20/19 08:05 CARDIAC ENZYMES Creatine Kinase 14 U/L (26-308) L 12/15/19 07:30 Troponin I < 0.02 ng/ml (0.00-0.05) 11/30/19 08:35 Current Medications Generic Name Dose Route Start Last Admin Trade Name Freq PRN Reason Stop Dose Admin Albuterol Sulfate 2 puff 12/13/19 11:09 Ventolin Hfa Inhaler - IH Q8H PRN SHORTNESS OF BREATH Budesonide/Formoterol Fumarate 1 puff 12/13/19 22:00 12/20/19 09:42 Symbicort 160/4.5mcg - IH 1 puff BID KADEEM Administration Carvedilol 3.125 mg 12/13/19 22:00 12/20/19 09:40 Coreg - PO 3.125 mg BID KADEEM Administration Clopidogrel Bisulfate 75 mg 12/14/19 10:00 12/20/19 09:40 Plavix - PO 75 mg DAILY KADEEM Administration Docusate Sodium 200 mg 12/20/19 13:46 Colace - PO Q12H PRN CONSTIPATION Escitalopram Oxalate 5 mg 12/10/19 14:29 12/20/19 09:40 Lexapro - PO 5 mg DAILY KADEEM Administration Furosemide 20 mg 12/14/19 10:00 12/20/19 09:41 Lasix - PO 20 mg DAILY KADEEM Administration Guaifenesin 600 mg 12/15/19 11:30 12/20/19 09:40 Mucinex - PO 600 mg BID KADEEM Administration Heparin Sodium (Porcine) 5,000 unit 12/13/19 14:00 12/20/19 14:03 Heparin - SQ 5,000 unit TID KADEEM Administration Piperacillin Sod/Tazobactam 50 mls @ 100 mls/hr 12/19/19 15:15 12/20/19 17:32 Sod 3.375 gm/ Dextrose IVPB 100 mls/hr Q8H-IV KADEEM Administration Protocol Insulin Aspart 1 vial 12/13/19 12:00 12/20/19 17:27 Novolog Vial Sliding Scale - SQ Not Given Q6HPO KADEEM Protocol Insulin Detemir 2 units 12/12/19 22:00 12/19/19 22:28 Levemir Vial SQ 2 units HS KADEEM Administration Insulin Detemir 6 units 12/20/19 07:00 12/20/19 06:09 Levemir Vial SQ 6 units AM KADEEM Administration Latanoprost 1 drop 12/14/19 22:00 12/19/19 22:29 Xalatan 0.005% Eye Drops - OU 1 drop HS KADEEM Administration Melatonin 10 mg 12/13/19 22:00 12/19/19 22:28 Melatonin PO 10 mg HS KADEEM Administration Oxycodone HCl 5 mg 12/20/19 09:07 12/20/19 09:39 Roxicodone - PO 5 mg Q4H PRN Administration PAIN LEVEL 6-10 Polyethylene Glycol 17 gm 12/20/19 14:00 12/20/19 16:01 Miralax (For Daily Use) - PO 17 gm TID KADEEM Administration Tamsulosin HCl 0.4 mg 12/13/19 22:00 12/19/19 22:28 Flomax - PO 0.4 mg HS KADEEM Administration Valsartan 40 mg 12/12/19 11:30 12/20/19 09:41 Diovan - PO 40 mg DAILY KADEEM Administration Home Medications Medication Instructions Recorded Carvedilol 3.125 mg PO BID 12/08/18 Tamsulosin HCl 0.4 mg PO DAILY 01/11/19 Clopidogrel Bisulfate [Clopidogrel] 75 mg PO DAILY 04/07/19 Melatonin 10 mg PO HS 04/07/19 Albuterol Sulfate [Proair 2 puff NEB TID PRN 05/31/19 Digihaler] Bimatoprost [Lumigan] 1 drop DAILY 05/31/19 Furosemide 20 mg PO DAILY 05/31/19 Albuterol 0.083% Nebulizer Fatuma 1 neb NEB QID 11/30/19 [Ventolin 0.083% Nebulizer Soln -] Budesonide/Formeterol Fumarate 1 inh PO BID 11/30/19 [SYMBICORT 160/4.5mcg -] Clopidogrel Bisulfate [Plavix -] 75 mg PO DAILY tablet 12/19/19 Docusate Sodium [Colace -] 100 mg PO Q12H PRN capsule 12/19/19 Escitalopram Oxalate [Lexapro -] 5 mg PO DAILY tablet 12/19/19 Guaifenesin [Mucinex -] 600 mg PO BID tablet.er 12/19/19 Heparin - 5,000 unit SQ TID vial 12/19/19 Insulin (Levemir) [Levemir Vial] 2 units SQ HS units 12/19/19 Insulin (Levemir) [Levemir Vial] 6 units SQ AM units 12/19/19 Insulin Sliding Scale [Novolog 1 vial SQ Q6HPO units 12/19/19 Vial Sliding Scale -] Rosuvastatin Calcium [Crestor] 10 mg PO DAILY #30 tablet 12/19/19 Valsartan [Diovan] 40 mg PO DAILY 30 Days #30 tablet 12/19/19 Microbiology 12/19/19 15:30 Blood - Peripheral Venous Blood Culture - Preliminary NO GROWTH OBTAINED AFTER 24 HOURS, INCUBATION TO CONTINUE FOR 4 DAYS. 12/19/19 15:20 Blood - Peripheral Venous Blood Culture - Preliminary NO GROWTH OBTAINED AFTER 24 HOURS, INCUBATION TO CONTINUE FOR 4 DAYS. 12/16/19 09:55 Blood - Peripheral Venous Blood Culture - Preliminary NO GROWTH OBTAINED AFTER 72 HOURS, INCUBATION TO CONTINUE FOR 2 DAYS. 12/16/19 09:55 Blood - Peripheral Venous Blood Culture - Preliminary NO GROWTH OBTAINED AFTER 72 HOURS, INCUBATION TO CONTINUE FOR 2 DAYS. 12/03/19 21:00 Blood - Peripheral Venous Blood Culture - Final NO GROWTH AFTER 5 DAYS INCUBATION 12/03/19 21:00 Blood - Peripheral Venous Blood Culture - Final NO GROWTH AFTER 5 DAYS INCUBATION 12/04/19 11:00 Urine - Urine - Catheterized Urine Culture - Final Yeast Like Organism US: of abdomen: s/p cholecystectomy with no evidence of biliary tract obstruction, borderline hepatomegaly with probable mild diffuse fatty infiltration of the liver. ASSESSMENT AND PLAN: This patient is a 79yom with PMhx of systolic heart failure , CAD, s/p PCI ,CKD, s/p medtronic ICD, DM, PUD s/p partial gastrectomy, Achalasia , CABG, HTN, HLP,penile implant ,and copd ( 2 L of O2 ) , who presented after a fall and was found to have L sided femoral neck Fx #Possible recurrent aspiration pneumonia : on zosyn now as per ID , reculture continue dysphagia diet s/p MBS: SILENT Aspiration on thin liquid, with no overt signs (no cough, no pt awareness) of aspiration. On soft diet, nectar thick liquids now continue # Acute transaminitis: elevated , continue to monitor , ordered MRCP by GI , patient has a pacemaker, cannot have MRCP , will repeat the level s/p Unasyn , no won zosyn for silent aspiration , dose of crestor 10mg and lexapro to 5mg . #POD#20 s/p L Fem neck Fx, s/p intramedullary nail , will dc him to rehab once stable to rehabilitation # s/p FAll.: syncope vs orthostatic hypotension /dehydration # APRYL on CKD: back to baseline , back on diovan since back to his baseline # Hypernatremia /dehydration : on 1/2 ns IVF , improving sodium is 149--> 145-->142-->139-->137-->139 today # Acute delirium: improved # H/o DM ,CAD, HLP: continue levemir, cont SSI q 6h. #Hx systolic heart failure L: gentle hydration # H/o HTN #Hx of COPD on home o2 2l #Low phos: repleted DVT Px: heparin continue PT
[2019-12-20] MEDS: LATANOPROST 0.005% OPHTH SOLN 2.5ML BOTTLE OU SCH (21:26)
[2019-12-20] MEDS: MELATONIN 5 MG TABLETS PO SCH (21:26)
[2019-12-20] MEDS: TAMSULOSIN HCL 0.4 MG CAP PO SCH (21:26)
[2019-12-21] MEDS ORDERED: PIPERACILLIN/TAZOBACTAM 3.375 GM VIAL IVPB ONE ×3 (00:49→17:23)
[2019-12-21] MEDS ORDERED: DEXTROSE 5%-WATER - 50 ML IVPB ONE ×3 (00:49→17:24)
[2019-12-21] MEDS: PIPERACILLIN/TAZOB 3.375 GM 3.375 GM in DEXTROSE 5%-WATER - 50 ML IVPB SCH ×3 (01:15→17:26)
[2019-12-21] MEDS: HEPARIN NA (PORCINE) 5,000 UNITS/ML 1ML VIAL SQ SCH ×3 (05:20→21:45)
[2019-12-21] MEDS: INSULIN SLIDING SCALE (NOVOLOG) 1 VIAL SQ SCH ×5 (05:23→23:30)
[2019-12-21] MEDS: POLYETHYLENE GLYCOL 3350 119 GM BTL PO SCH ×3 (05:50→21:46)
[2019-12-21] MEDS: INSULIN (LEVEMIR) 100 UNITS/ML UNITS SQ SCH ×2 (06:14→21:45)
[2019-12-21 08:20] LABS: BASO % 0.7 % (0-2.0); EOS % 0.9 % (0-4.5); HEMATOCRIT 26.7 % (35.4-49); HEMOGLOBIN 8.7 GM/dL (11.7-16.9); LYMPH % 11.4 % (8-40); MCH 26.5 pg (25.7-33.7); MCHC 32.6 g/dl (32.0-35.9); MEAN CELL VOLUME 81.4 fl (80-96); MEAN PLT VOLUME 7.3 fl (7.5-11.1); MONO % 7.4 % (3.8-10.2); NEUT % 79.6 % (42.8-82.8); PLATELET COUNT 333 K/MM3 (134-434); RBC 3.28 M/mm3 (4.00-5.60); RDW 18.2 % (11.9-15.9); WHITE BLOOD COUNT 6.6 K/mm3 (4.0-10.0)
[2019-12-21] MEDS: guaiFENesin 600 MG TABLET.ER (FP) PO SCH ×2 (09:59→21:45)
[2019-12-21] MEDS: ESCITALOPRAM OXALATE 10 MG TABLET PO SCH (09:59)
[2019-12-21] MEDS: CARVEDILOL 3.125 MG TABLET (FP) PO SCH ×2 (09:59→21:45)
--- NOTE | 2019-12-21 09:59 | PN ---
Teaching Attending Note Name of Resident: Nate Valentino ATTENDING PHYSICIAN STATEMENT I saw and evaluated the patient. I reviewed the resident's note and discussed the case with the resident. I agree with the resident's findings and plan as documented. SUBJECTIVE: Patient is in NAD OBJECTIVE: Vital Signs Temperature 99.9 F H 12/21/19 06:00 Pulse Rate 75 12/21/19 06:00 Respiratory Rate 20 12/21/19 06:00 Blood Pressure 134/60 12/21/19 06:00 O2 Sat by Pulse Oximetry (%) 96 12/21/19 08:31 PE: per resident's note CBCD WBC 6.6 K/mm3 (4.0-10.0) 12/21/19 07:43 RBC 3.28 M/mm3 (4.00-5.60) L 12/21/19 07:43 Hgb 8.7 GM/dL (11.7-16.9) L 12/21/19 07:43 Hct 26.7 % (35.4-49) L 12/21/19 07:43 MCV 81.4 fl (80-96) 12/21/19 07:43 MCHC 32.6 g/dl (32.0-35.9) 12/21/19 07:43 RDW 18.2 % (11.9-15.9) H 12/21/19 07:43 Plt Count 333 K/MM3 (134-434) 12/21/19 07:43 MPV 7.3 fl (7.5-11.1) L 12/21/19 07:43 CMP Sodium 139 mmol/L (136-145) 12/20/19 08:05 Potassium 4.3 mmol/L (3.5-5.1) 12/20/19 08:05 Chloride 105 mmol/L (98-107) 12/20/19 08:05 Carbon Dioxide 25 mmol/L (21-32) 12/20/19 08:05 Anion Gap 10 MMOL/L (8-16) 12/20/19 08:05 BUN 23.1 mg/dL (7-18) H 12/20/19 08:05 Creatinine 1.3 mg/dL (0.55-1.3) 12/20/19 08:05 Random Glucose 199 mg/dL (74-106) H 12/20/19 08:05 Calcium 8.3 mg/dL (8.5-10.1) L 12/20/19 08:05 Total Bilirubin 1.2 mg/dL (0.2-1) H 12/20/19 08:05 AST 108 U/L (15-37) H 12/20/19 08:05 ALT 165 U/L (13-61) H 12/20/19 08:05 Alkaline Phosphatase 178 U/L (45-117) H 12/20/19 08:05 Total Protein 6.4 g/dl (6.4-8.2) 12/20/19 08:05 Albumin 2.0 g/dl (3.4-5.0) L 12/20/19 08:05 CARDIAC ENZYMES Creatine Kinase 14 U/L (26-308) L 12/15/19 07:30 Troponin I < 0.02 ng/ml (0.00-0.05) 11/30/19 08:35 Current Medications Generic Name Dose Route Start Last Admin Trade Name Freq PRN Reason Stop Dose Admin Albuterol Sulfate 2 puff 12/13/19 11:09 Ventolin Hfa Inhaler - IH Q8H PRN SHORTNESS OF BREATH Budesonide/Formoterol Fumarate 1 puff 12/13/19 22:00 12/20/19 21:26 Symbicort 160/4.5mcg - IH 1 puff BID KADEEM Administration Carvedilol 3.125 mg 12/13/19 22:00 12/20/19 21:26 Coreg - PO 3.125 mg BID KADEEM Administration Clopidogrel Bisulfate 75 mg 12/14/19 10:00 12/20/19 09:40 Plavix - PO 75 mg DAILY KADEEM Administration Docusate Sodium 200 mg 12/20/19 13:46 Colace - PO Q12H PRN CONSTIPATION Escitalopram Oxalate 5 mg 12/10/19 14:29 12/20/19 09:40 Lexapro - PO 5 mg DAILY KADEEM Administration Furosemide 20 mg 12/14/19 10:00 12/20/19 09:41 Lasix - PO 20 mg DAILY KADEEM Administration Guaifenesin 600 mg 12/15/19 11:30 12/20/19 21:26 Mucinex - PO 600 mg BID KADEEM Administration Heparin Sodium (Porcine) 5,000 unit 12/13/19 14:00 12/21/19 05:20 Heparin - SQ 5,000 unit TID KADEEM Administration Piperacillin Sod/Tazobactam 50 mls @ 100 mls/hr 12/19/19 15:15 12/21/19 01:15 Sod 3.375 gm/ Dextrose IVPB 100 mls/hr Q8H-IV KADEEM Administration Protocol Insulin Aspart 1 vial 12/13/19 12:00 12/21/19 05:23 Novolog Vial Sliding Scale - SQ Not Given Q6HPO KADEEM Protocol Insulin Detemir 2 units 12/12/19 22:00 12/20/19 21:25 Levemir Vial SQ 2 units HS KADEEM Administration Insulin Detemir 6 units 12/20/19 07:00 12/21/19 06:14 Levemir Vial SQ 6 units AM KADEEM Administration Latanoprost 1 drop 12/14/19 22:00 12/20/19 21:26 Xalatan 0.005% Eye Drops - OU 1 drop HS KADEEM Administration Melatonin 10 mg 12/13/19 22:00 12/20/19 21:26 Melatonin PO 10 mg HS KADEEM Administration Oxycodone HCl 5 mg 12/20/19 09:07 12/20/19 21:26 Roxicodone - PO 5 mg Q4H PRN Administration PAIN LEVEL 6-10 Polyethylene Glycol 17 gm 12/20/19 14:00 12/21/19 05:50 Miralax (For Daily Use) - PO 17 gm TID KADEEM Administration Tamsulosin HCl 0.4 mg 12/13/19 22:00 12/20/19 21:26 Flomax - PO 0.4 mg HS KADEEM Administration Valsartan 40 mg 12/12/19 11:30 12/20/19 09:41 Diovan - PO 40 mg DAILY KADEEM Administration Home Medications Medication Instructions Recorded Carvedilol 3.125 mg PO BID 12/08/18 Tamsulosin HCl 0.4 mg PO DAILY 01/11/19 Clopidogrel Bisulfate [Clopidogrel] 75 mg PO DAILY 04/07/19 Melatonin 10 mg PO HS 04/07/19 Albuterol Sulfate [Proair 2 puff NEB TID PRN 05/31/19 Digihaler] Bimatoprost [Lumigan] 1 drop DAILY 05/31/19 Furosemide 20 mg PO DAILY 05/31/19 Albuterol 0.083% Nebulizer Fatuma 1 neb NEB QID 11/30/19 [Ventolin 0.083% Nebulizer Soln -] Budesonide/Formeterol Fumarate 1 inh PO BID 11/30/19 [SYMBICORT 160/4.5mcg -] Clopidogrel Bisulfate [Plavix -] 75 mg PO DAILY tablet 12/19/19 Docusate Sodium [Colace -] 100 mg PO Q12H PRN capsule 12/19/19 Escitalopram Oxalate [Lexapro -] 5 mg PO DAILY tablet 12/19/19 Guaifenesin [Mucinex -] 600 mg PO BID tablet.er 12/19/19 Heparin - 5,000 unit SQ TID vial 12/19/19 Insulin (Levemir) [Levemir Vial] 2 units SQ HS units 12/19/19 Insulin (Levemir) [Levemir Vial] 6 units SQ AM units 12/19/19 Insulin Sliding Scale [Novolog 1 vial SQ Q6HPO units 12/19/19 Vial Sliding Scale -] Rosuvastatin Calcium [Crestor] 10 mg PO DAILY #30 tablet 12/19/19 Valsartan [Diovan] 40 mg PO DAILY 30 Days #30 tablet 12/19/19 US: of abdomen: s/p cholecystectomy with no evidence of biliary tract obstruction, borderline hepatomegaly with probable mild diffuse fatty infiltration of the liver. ASSESSMENT AND PLAN: This patient is a 79yom with PMhx of systolic heart failure , CAD, s/p PCI ,CKD, s/p medtronic ICD, DM, PUD s/p partial gastrectomy, Achalasia , CABG, HTN, HLP,penile implant ,and copd ( 2 L of O2 ) , who presented after a fall and was found to have L sided femoral neck Fx #Possible recurrent aspiration pneumonia : on zosyn now as per ID , reculture continue dysphagia diet s/p MBS: SILENT Aspiration on thin liquid, with no overt signs (no cough, no pt awareness) of aspiration. On soft diet, nectar thick liquids now continue # Acute transaminitis: elevated , continue to monitor , ordered MRCP by GI , patient has a pacemaker, cannot have MRCP , will repeat the level s/p Unasyn , no won zosyn for silent aspiration , dose of crestor 10mg and lexapro to 5mg . #POD#20 s/p L Fem neck Fx, s/p intramedullary nail , will dc him to rehab once stable to rehabilitation # s/p FAll.: syncope vs orthostatic hypotension /dehydration # APRYL on CKD: back to baseline , back on diovan since back to his baseline # Hypernatremia /dehydration : on 05/12 ns IVF , improving sodium is 149--> 145-->142-->139-->137-->139 today # Acute delirium: improved # H/o DM ,CAD, HLP: continue levemir, cont SSI q 6h. #Hx systolic heart failure L: gentle hydration # H/o HTN #Hx of COPD on home o2 2l #Low phos: repleted DVT Px: heparin continue PT
[2019-12-21] MEDS: FUROSEMIDE 20 MG TABLET (FP) PO SCH (10:00)
[2019-12-21] MEDS: VALSARTAN 40 MG TABLET (FP) PO SCH (10:00)
[2019-12-21] MEDS: CLOPIDOGREL BISULFATE 75 MG TABLET (FP) PO SCH (10:00)
[2019-12-21] MEDS: BUDESONIDE/FORMETEROL FUMARATE 160/4.5 mcg INHALER IH SCH ×2 (10:01→21:47)
[2019-12-21] MEDS: oxyCODONE HCL 5 MG TABLET PO PRN (10:01)
--- NOTE | 2019-12-21 10:14 | PN ---
Progress Note, Physician History of Present Illness: Temp spike overnight with altered mental status since resolved suspecting recurrent asp pneumonitis and Zasyn resumed, given MBS confirms silent aspiration resulting in post-prandial choking despite dysphagia diet. Now baseline mental status, denies chest pain, recurrent near or true syncope, dyspnea, orthopnea. - Current Medication List Current Medications: Active Medications Albuterol Sulfate (Ventolin Hfa Inhaler -) 2 puff IH Q8H PRN PRN Reason: SHORTNESS OF BREATH Budesonide/Formoterol Fumarate (Symbicort 160/4.5mcg -) 1 puff IH BID [facility] Last Admin: 12/21/19 10:01 Dose: 1 puff Documented by: Carvedilol (Coreg -) 3.125 mg PO BID [facility] Last Admin: 12/21/19 09:59 Dose: 3.125 mg Documented by: Clopidogrel Bisulfate (Plavix -) 75 mg PO DAILY [facility] Last Admin: 12/21/19 10:00 Dose: 75 mg Documented by: Docusate Sodium (Colace -) 200 mg PO Q12H PRN PRN Reason: CONSTIPATION Last Admin: 12/21/19 09:59 Dose: 200 mg Documented by: Escitalopram Oxalate (Lexapro -) 5 mg PO DAILY [facility] Last Admin: 12/21/19 09:59 Dose: 5 mg Documented by: Furosemide (Lasix -) 20 mg PO DAILY [facility] Last Admin: 12/21/19 10:00 Dose: 20 mg Documented by: Guaifenesin (Mucinex -) 600 mg PO BID [facility] Last Admin: 12/21/19 09:59 Dose: 600 mg Documented by: Heparin Sodium (Porcine) (Heparin -) 5,000 unit SQ TID [facility] Last Admin: 12/21/19 05:20 Dose: 5,000 unit Documented by: Piperacillin Sod/Tazobactam (Sod 3.375 gm/ Dextrose) 50 mls @ 100 mls/hr IVPB Q8H-IV [facility]; Protocol Last Admin: 12/21/19 09:58 Dose: 100 mls/hr Documented by: Insulin Aspart (Novolog Vial Sliding Scale -) 1 vial SQ Q6HPO [facility]; Protocol Last Admin: 12/21/19 05:23 Dose: Not Given Documented by: Insulin Detemir (Levemir Vial) 2 units SQ HS [facility] Last Admin: 12/20/19 21:25 Dose: 2 units Documented by: Insulin Detemir (Levemir Vial) 6 units SQ AM [facility] Last Admin: 12/21/19 06:14 Dose: 6 units Documented by: Latanoprost (Xalatan 0.005% Eye Drops -) 1 drop OU [facility] Last Admin: 12/20/19 21:26 Dose: 1 drop Documented by: Melatonin (Melatonin) 10 mg PO [facility] Last Admin: 12/20/19 21:26 Dose: 10 mg Documented by: Oxycodone HCl (Roxicodone -) 5 mg PO Q4H PRN PRN Reason: PAIN LEVEL 6-10 Last Admin: 12/21/19 10:01 Dose: 5 mg Documented by: Polyethylene Glycol (Miralax (For Daily Use) -) 17 gm PO TID [facility] Last Admin: 12/21/19 05:50 Dose: 17 gm Documented by: Tamsulosin HCl (Flomax -) 0.4 mg PO [facility] Last Admin: 12/20/19 21:26 Dose: 0.4 mg Documented by: Valsartan (Diovan -) 40 mg PO DAILY [facility] Last Admin: 12/21/19 10:00 Dose: 40 mg Documented by: - Objective Vital Signs: Vital Signs Temperature 99.9 F H 12/21/19 06:00 Pulse Rate 75 12/21/19 06:00 Respiratory Rate 20 12/21/19 06:00 Blood Pressure 134/60 12/21/19 06:00 O2 Sat by Pulse Oximetry (%) 96 12/21/19 08:31 Constitutional: Yes: No Distress, Calm, Thin Neck: Yes: Supple Cardiovascular: Yes: Regular Rate and Rhythm Respiratory: Yes: Regular, Diminished, On Nasal O2 Gastrointestinal: Yes: Normal Bowel Sounds, Soft Genitourinary: Yes: Way Present Edema: No Labs: CBC, BMP 12/21/19 07:43 INR, PTT INR 1.08 (0.83-1.09) 12/01/19 06:40 - ....Imaging Chest X-ray: Report Reviewed (Bilateral interstitial increased markings) Problem List - Problems (1) CAD (coronary artery disease) Code(s): I25.10 - ATHSCL HEART DISEASE OF [place] CORONARY ARTERY W/O ANG PCTRS Qualifiers: Coronary Disease-Associated Artery/Lesion type: [place] artery [place] vs. transplanted heart: [place] heart Associated angina: without angina Qualified Code(s): I25.10 - Atherosclerotic heart disease of [place] coronary artery without angina pectoris (2) COPD (chronic obstructive pulmonary disease) Code(s): J44.9 - CHRONIC OBSTRUCTIVE PULMONARY DISEASE, UNSPECIFIED Qualifiers: COPD type: unspecified COPD Qualified Code(s): J44.9 - Chronic obstructive pulmonary disease, unspecified (3) History of percutaneous coronary intervention Code(s): Z98.890 - OTHER SPECIFIED POSTPROCEDURAL STATES (4) Hx of CABG Code(s): Z95.1 - PRESENCE OF AORTOCORONARY BYPASS GRAFT (5) ICD (implantable cardioverter-defibrillator) in place Code(s): Z95.810 - PRESENCE OF AUTOMATIC (IMPLANTABLE) CARDIAC DEFIBRILLATOR (6) Ischemic cardiomyopathy Code(s): I25.5 - ISCHEMIC CARDIOMYOPATHY (7) Recurrent falls Code(s): R29.6 - REPEATED FALLS (8) Acute on chronic renal insufficiency Code(s): N28.9 - DISORDER OF KIDNEY AND URETER, UNSPECIFIED; N18.9 - CHRONIC KIDNEY DISEASE, UNSPECIFIED (9) Orthostatic hypotension Code(s): I95.1 - ORTHOSTATIC HYPOTENSION Assessment/Plan 12/13/2019 Echo: TDS normal biventricular size and fxn, RVSP 30, pacer wire seen 11/21/2019 Echo: Normal LV size with mild LVH and mild decreased LVEF 45-50%, grade I diastolic dysfunction, mild LAE, tr MR, mild-mod TR, mild VA RVSP 34 mmHg Echocardiography (10/15/18): Moderately reduced LV systolic function, LVEF 40-45%, grade 1 diastolic dysfunction, mild , mild MR, moderate TR, mild VA and pulmonary HTN. 1. s/p Left IM nail for femoral neck hip fracture 2. Aspiration pneumonia with recurrence 3. Chronic LV systolic heart failure (ischemic cardiomyopathy EF 45-50%) 4. CAD s/p [place], CABG, PCI/stents, angina pectoris 5. Post ICD implant 6. HTN 7. Hypercholesterolemia 8. T2DM 9. Acute on CKD stage 3 resolved 10. PAD s/p fem-pop bypass and [employer] 11. COPD 12. PUD s/p Bilroth II gastrectomy 13. 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 Gout 15. Kidney stones 16. Orthostatic hypotension off Northera 17. Gait disturbance 18. Post-op anemia 19. Hypernatremia resolved 20. Abormal LFTs plateauing PLAN: 1. Restarted abx course per C&S, outpatient motility studies, needs dysphagia diet, trend LFTs and avoid hepatotoxins 2. Continue Diovan 40 qd and Lasix 20 qd as renal fxn stabilized, continue Plavix 75 mg QD, Coreg 3.125 mg BID and off Crestor 10 mg QHS pending LFT resolution. Monitor orthostasis, has not been taking Northera 100 qd 3. BD, O2 as needed DVT and GI prophylaxis and analgesia as needed 4. Monitor Hgb and transfuse as needed 5. PT as tolerated -> SNF 6. Eventual f/u with Dr. Morales in office upon discharge
[2019-12-21 11:45] LABS: ALBUMIN 1.9 g/dl (3.4-5.0); BILIRUBIN,TOTAL 0.6 mg/dL (0.2-1); BLOOD UREA NITROGEN 21.4 mg/dL (7-18); CALCIUM 8.3 mg/dL (8.5-10.1); CREATININE 1.3 mg/dL (0.55-1.3); MAGNESIUM 2.2 mg/dL (1.8-2.4); PHOSPHOROUS 3.5 mg/dL (2.5-4.9); POTASSIUM 4.4 mmol/L (3.5-5.1); TOT PROT 6.3 g/dl (6.4-8.2)
--- NOTE | 2019-12-21 13:21 | PN ---
Progress Note, Physician History of Present Illness: pulmonary alert,comfortable,-sob,t 99.9 - Current Medication List Current Medications: Active Medications Albuterol Sulfate (Ventolin Hfa Inhaler -) 2 puff IH Q8H PRN PRN Reason: SHORTNESS OF BREATH Budesonide/Formoterol Fumarate (Symbicort 160/4.5mcg -) 1 puff IH BID [facility] Last Admin: 12/21/19 10:01 Dose: 1 puff Documented by: Carvedilol (Coreg -) 3.125 mg PO BID [facility] Last Admin: 12/21/19 09:59 Dose: 3.125 mg Documented by: Clopidogrel Bisulfate (Plavix -) 75 mg PO DAILY [facility] Last Admin: 12/21/19 10:00 Dose: 75 mg Documented by: Docusate Sodium (Colace -) 200 mg PO Q12H PRN PRN Reason: CONSTIPATION Last Admin: 12/21/19 09:59 Dose: 200 mg Documented by: Escitalopram Oxalate (Lexapro -) 5 mg PO DAILY [facility] Last Admin: 12/21/19 09:59 Dose: 5 mg Documented by: Furosemide (Lasix -) 20 mg PO DAILY [facility] Last Admin: 12/21/19 10:00 Dose: 20 mg Documented by: Guaifenesin (Mucinex -) 600 mg PO BID [facility] Last Admin: 12/21/19 09:59 Dose: 600 mg Documented by: Heparin Sodium (Porcine) (Heparin -) 5,000 unit SQ TID [facility] Last Admin: 12/21/19 05:20 Dose: 5,000 unit Documented by: Piperacillin Sod/Tazobactam (Sod 3.375 gm/ Dextrose) 50 mls @ 100 mls/hr IVPB Q8H-IV [facility]; Protocol Last Admin: 12/21/19 09:58 Dose: 100 mls/hr Documented by: Insulin Aspart (Novolog Vial Sliding Scale -) 1 vial SQ Q6HPO [facility]; Protocol Last Admin: 12/21/19 05:23 Dose: Not Given Documented by: Insulin Detemir (Levemir Vial) 2 units SQ HS [facility] Last Admin: 12/20/19 21:25 Dose: 2 units Documented by: Insulin Detemir (Levemir Vial) 6 units SQ AM [facility] Last Admin: 12/21/19 06:14 Dose: 6 units Documented by: Latanoprost (Xalatan 0.005% Eye Drops -) 1 drop [address] [facility] Last Admin: 12/20/19 21:26 Dose: 1 drop Documented by: Melatonin (Melatonin) 10 mg PO [facility] Last Admin: 12/20/19 21:26 Dose: 10 mg Documented by: Oxycodone HCl (Roxicodone -) 5 mg PO Q4H PRN PRN Reason: PAIN LEVEL 6-10 Last Admin: 12/21/19 10:01 Dose: 5 mg Documented by: Polyethylene Glycol (Miralax (For Daily Use) -) 17 gm PO TID [facility] Last Admin: 12/21/19 05:50 Dose: 17 gm Documented by: Tamsulosin HCl (Flomax -) 0.4 mg PO [facility] Last Admin: 12/20/19 21:26 Dose: 0.4 mg Documented by: Valsartan (Diovan -) 40 mg PO DAILY [facility] Last Admin: 12/21/19 10:00 Dose: 40 mg Documented by: - Objective Vital Signs: Vital Signs Temperature 98.8 F 12/21/19 10:00 Pulse Rate 70 12/21/19 10:00 Respiratory Rate 18 12/21/19 10:00 Blood Pressure 132/66 12/21/19 10:00 O2 Sat by Pulse Oximetry (%) 99 12/21/19 10:00 Constitutional: Yes: Well Nourished, Calm Eyes: Yes: WNL HENT: Yes: WNL Neck: Yes: WNL Cardiovascular: Yes: Regular Rate and Rhythm, S1, S2 Respiratory: Yes: Diminished Gastrointestinal: Yes: Normal Bowel Sounds, Soft Extremities: Yes: WNL Edema: No Labs: CBC, BMP 12/21/19 07:43 12/21/19 07:43 INR, PTT INR 1.08 (0.83-1.09) 12/01/19 06:40 Problem List - Problems (1) Anemia Code(s): D64.9 - ANEMIA, UNSPECIFIED Qualifiers: Anemia type: unspecified type Qualified Code(s): D64.9 - Anemia, unspecified (2) Fall Code(s): W19.XXXA - UNSPECIFIED FALL, INITIAL ENCOUNTER Qualifiers: Encounter type: initial encounter Qualified Code(s): W19.XXXA - Unspecified fall, initial encounter (3) Hip fracture, left Code(s): S72.002A - FRACTURE OF UNSP PART OF NECK OF LEFT FEMUR, INIT Qualifiers: Encounter type: initial encounter Fracture type: closed Qualified C ode(s): S72.002A - Fracture of unspecified part of neck of left femur, initial encounter for closed fracture (4) Neuropathy Code(s): G62.9 - POLYNEUROPATHY, UNSPECIFIED (5) Syncope Code(s): R55 - SYNCOPE AND COLLAPSE Qualifiers: Syncope type: unspecified Qualified Code(s): R55 - Syncope and collapse (6) Pneumonia Code(s): J18.9 - PNEUMONIA, UNSPECIFIED ORGANISM Qualifiers: Pneumonia type: due to unspecified organism Laterality: unspecified laterality Lung location: unspecified part of lung Qualified Code(s): J18.9 - Pneumonia, unspecified organism (7) Achalasia Code(s): K22.0 - ACHALASIA OF CARDIA (8) BPH (benign prostatic hypertrophy) Code(s): N40.0 - BENIGN PROSTATIC HYPERPLASIA WITHOUT LOWER URINRY TRACT SYMP Qualifiers: Lower urinary tract symptom presence: presence of symptoms unspecified (9) CAD (coronary artery disease) Code(s): I25.10 - ATHSCL HEART DISEASE OF [place] CORONARY ARTERY W/O ANG PCTRS Qualifiers: Coronary Disease-Associated Artery/Lesion type: [place] artery [place] vs. transplanted heart: [place] heart Associated angina: without angina Qualified Code(s): I25.10 - Atherosclerotic heart disease of [place] coronary artery without angina pectoris (10) CKD (chronic kidney disease) stage 3, GFR 30-59 ml/min Code(s): N18.3 - CHRONIC KIDNEY DISEASE, STAGE 3 (MODERATE) (11) COPD (chronic obstructive pulmonary disease) Code(s): J44.9 - CHRONIC OBSTRUCTIVE PULMONARY DISEASE, UNSPECIFIED (12) History of percutaneous coronary intervention Code(s): Z98.890 - OTHER SPECIFIED POSTPROCEDURAL STATES (13) Hx of CABG Code(s): Z95.1 - PRESENCE OF AORTOCORONARY BYPASS GRAFT (14) Hyperlipidemia Code(s): E78.5 - HYPERLIPIDEMIA, UNSPECIFIED Qualifiers: Hyperlipidemia type: pure hypercholesterolemia Qualified Code(s): E78.00 - Pure hypercholesterolemia, unspecified; E78.0 - Pure hypercholesterolemia (15) ICD (implantable cardioverter-defibrillator) in place Code(s): Z95.810 - PRESENCE OF AUTOMATIC (IMPLANTABLE) CARDIAC DEFIBRILLATOR (16) Ischemic cardiomyopathy Code(s): I25.5 - ISCHEMIC CARDIOMYOPATHY (17) Recurrent falls Code(s): R29.6 - REPEATED FALLS (18) Hypertension Code(s): I10 - ESSENTIAL (PRIMARY) HYPERTENSION Qualifiers: Hypertension type: essential hypertension Qualified Code(s): I10 - Essential (primary) hypertension Assessment/Plan IMP RLL PNEUMONIA LIKELY ASPIRATION IMPROVED CHF ASHD S/P CABG,PCI COPD LEFT HIP FX S/P MECHANICAL FALL S/P INTRA-MEDULLARY NAIL ALTERED MENTAL STATUS LIKELY TOXIC METABOLIC ENCEPHALOPATHY NEUROGENIC SYNCOPE DM HLD HTN H/O PUD S/P BILLROTH II H/O ACHALASIA S/P HELLER MYOTOMY ANEMIA HYPERNATREMIA CORRECTED PLAN SUPPLEMENTAL O2 INHALED BRONCHODILATORS NORMAL TRANSFUSION THRESHOLD MONITOR LYTES,RENAL FUNCTION,H+H F/U CHEST X-RAYS DR DELVALLE Problem List - Problems (1) Anemia Code(s): D64.9 - ANEMIA, UNSPECIFIED Qualifiers: Anemia type: unspecified type Qualified Code(s): D64.9 - Anemia, unspecified (2) Fall Code(s): W19.XXXA - UNSPECIFIED FALL, INITIAL ENCOUNTER Qualifiers: Encounter type: initial encounter Qualified Code(s): W19.XXXA - Unspecified fall, initial encounter (3) Hip fracture, left Code(s): S72.002A - FRACTURE OF UNSP PART OF NECK OF LEFT FEMUR, INIT Qualifiers: Encounter type: initial encounter Fracture type: closed Qualified Code(s): S72.002A - Fracture of unspecified part of neck of left femur, initial encounter for closed fracture (4) Neuropathy Code(s): G62.9 - POLYNEUROPATHY, UNSPECIFIED (5) Syncope Code(s): R55 - SYNCOPE AND COLLAPSE Qualifiers: Syncope type: unspecified Qualified Code(s): R55 - Syncope and collapse (6) Pneumonia Code(s): J18.9 - PNEUMONIA, UNSPECIFIED ORGANISM Qualifiers: Pneumonia type: due to unspecified organism Laterality: unspecified laterality Lung location: unspecified part of lung Qualified Code(s): J18.9 - Pneumonia, unspecified organism (7) Achalasia Code(s): K22.0 - ACHALASIA OF CARDIA (8) BPH (benign prostatic hypertrophy) Code(s): N40.0 - BENIGN PROSTATIC HYPERPLASIA WITHOUT LOWER URINRY TRACT SYMP Qualifiers: Lower urinary tract symptom presence: presence of symptoms unspecified (9) CAD (coronary artery disease) Code(s): I25.10 - ATHSCL HEART DISEASE OF [place] CORONARY ARTERY W/O ANG PCTRS Qualifiers: Coronary Disease-Associated Artery/Lesion type: [place] artery [place] vs. transplanted heart: [place] heart Associated angina: without angina Qualified Code(s): I25.10 - Atherosclerotic heart disease of [place] coronary artery without angina pectoris (10) CKD (chronic kidney disease) stage 3, GFR 30-59 ml/min Code(s): N18.3 - CHRONIC KIDNEY DISEASE, STAGE 3 (MODERATE) (11) COPD (chronic obstructive pulmonary disease) Code(s): J44.9 - CHRONIC OBSTRUCTIVE PULMONARY DISEASE, UNSPECIFIED (12) History of percutaneous coronary intervention Code(s): Z98.890 - OTHER SPECIFIED POSTPROCEDURAL STATES (13) Hx of CABG Code(s): Z95.1 - PRESENCE OF AORTOCORONARY BYPASS GRAFT (14) Hyperlipidemia Code(s): E78.5 - HYPERLIPIDEMIA, UNSPECIFIED Qualifiers: Hyperlipidemia type: pure hypercholesterolemia Qualified Code(s): E78.00 - Pure hypercholesterolemia, unspecified; E78.0 - Pure hypercholesterolemia (15) ICD (implantable cardioverter-defibrillator) in place Code(s): Z95.810 - PRESENCE OF AUTOMATIC (IMPLANTABLE) CARDIAC DEFIBRILLATOR (16) Ischemic cardiomyopathy Code(s): I25.5 - ISCHEMIC CARDIOMYOPATHY (17) Recurrent falls Code(s): R29.6 - REPEATED FALLS (18) Hypertension Code(s): I10 - ESSENTIAL (PRIMARY) HYPERTENSION Qualifiers: Hypertension type: essential hypertension Qualified Code(s): I10 - Essential (primary) hypertension
--- NOTE | 2019-12-21 13:45 | PN ---
Progress Note, Physician History of Present Illness: RECURRENT TEMP NOTED AWAKE IN BED SL CONFUSED COMPLAINS OF L HIP PAIN AMBULATED WBC WNL CULTURES NO GROWTH - Current Medication List Current Medications: Active Medications Albuterol Sulfate (Ventolin Hfa Inhaler -) 2 puff IH Q8H PRN PRN Reason: SHORTNESS OF BREATH Budesonide/Formoterol Fumarate (Symbicort 160/4.5mcg -) 1 puff IH BID [facility] Last Admin: 12/21/19 10:01 Dose: 1 puff Documented by: Carvedilol (Coreg -) 3.125 mg PO BID [facility] Last Admin: 12/21/19 09:59 Dose: 3.125 mg Documented by: Clopidogrel Bisulfate (Plavix -) 75 mg PO DAILY [facility] Last Admin: 12/21/19 10:00 Dose: 75 mg Documented by: Docusate Sodium (Colace -) 200 mg PO Q12H PRN PRN Reason: CONSTIPATION Last Admin: 12/21/19 09:59 Dose: 200 mg Documented by: Escitalopram Oxalate (Lexapro -) 5 mg PO DAILY [facility] Last Admin: 12/21/19 09:59 Dose: 5 mg Documented by: Furosemide (Lasix -) 20 mg PO DAILY [facility] Last Admin: 12/21/19 10:00 Dose: 20 mg Documented by: Guaifenesin (Mucinex -) 600 mg PO BID [facility] Last Admin: 12/21/19 09:59 Dose: 600 mg Documented by: Heparin Sodium (Porcine) (Heparin -) 5,000 unit SQ TID [facility] Last Admin: 12/21/19 05:20 Dose: 5,000 unit Documented by: Piperacillin Sod/Tazobactam (Sod 3.375 gm/ Dextrose) 50 mls @ 100 mls/hr IVPB Q8H-IV [facility]; Protocol Last Admin: 12/21/19 09:58 Dose: 100 mls/hr Documented by: Insulin Aspart (Novolog Vial Sliding Scale -) 1 vial SQ Q6HPO [facility]; Protocol Last Admin: 12/21/19 05:23 Dose: Not Given Documented by: Insulin Detemir (Levemir Vial) 2 units SQ HS [facility] Last Admin: 12/20/19 21:25 Dose: 2 units Documented by: Insulin Detemir (Levemir Vial) 6 units SQ AM [facility] Last Admin: 12/21/19 06:14 Dose: 6 units Documented by: Latanoprost (Xalatan 0.005% Eye Drops -) 1 drop OU [facility] Last Admin: 12/20/19 21:26 Dose: 1 drop Documented by: Melatonin (Melatonin) 10 mg PO [facility] Last Admin: 12/20/19 21:26 Dose: 10 mg Documented by: Oxycodone HCl (Roxicodone -) 5 mg PO Q4H PRN PRN Reason: PAIN LEVEL 6-10 Last Admin: 12/21/19 10:01 Dose: 5 mg Documented by: Polyethylene Glycol (Miralax (For Daily Use) -) 17 gm PO TID [facility] Last Admin: 12/21/19 05:50 Dose: 17 gm Documented by: Tamsulosin HCl (Flomax -) 0.4 mg PO [facility] Last Admin: 12/20/19 21:26 Dose: 0.4 mg Documented by: Valsartan (Diovan -) 40 mg PO DAILY [facility] Last Admin: 12/21/19 10:00 Dose: 40 mg Documented by: - Objective Vital Signs: Vital Signs Temperature 98.8 F 12/21/19 10:00 Pulse Rate 70 12/21/19 10:00 Respiratory Rate 18 12/21/19 10:00 Blood Pressure 132/66 12/21/19 10:00 O2 Sat by Pulse Oximetry (%) 99 12/21/19 10:00 Constitutional: Yes: No Distress Eyes: Yes: Conjunctiva Clear Cardiovascular: Yes: Regular Rate and Rhythm, S1, S2 Respiratory: Yes: Diminished Gastrointestinal: Yes: Normal Bowel Sounds, Soft. No: Tenderness Extremities: Yes: Other (L HIP SURGICAL WOUND NO ERYTHEMA/ DRAINAGE) Labs: CBC, BMP 12/21/19 07:43 12/21/19 07:43 INR, PTT INR 1.08 (0.83-1.09) 12/01/19 06:40 Assessment/Plan FEVER ? SOURCE S/P IM NAIL L FEMUR AWAIT C/S CONTINUE ZOSYN OOB INCENTIVE SPIROMETRY
--- NOTE | 2019-12-21 15:49 | PN ---
Physical Exam: SUBJECTIVE: Patient seen and examined at bedside. The patient is A&Ox2 (name and place). He reports feeling tired, with 9/10 pain severity, and with no bowel movement recently. The patient denied fever/chills, hallucinations, and shortness of breath. OBJECTIVE: Vital Signs Period Temp Pulse Resp BP Sys/Garcia Pulse Ox Last 24 Hr 97.9 F-102.1 F 70-85 18-24 114-149/47-70 92-99 GENERAL: The patient is A&Ox2 (name and place). HEAD: Normal with no signs of trauma. EYES: Extraocular movements intact, sclera anicteric. No ptosis. Pale conjuctiva. ENT: Ears normal, nares patent, oropharynx clear without exudates, dry mucous membranes. NECK: Trachea midline, full range of motion, supple. LUNGS: Decreased breath sounds bilaterally, no accessory muscle use. HEART: Regular rate and rhythm, S1, S2 without murmur, rub or gallop. ABDOMEN: Soft, nontender, nondistended, hypoactive bowel sounds. no guarding, no rebound, no masses. EXTREMITIES: 2+ pulses, warm, well-perfused, no edema. NEUROLOGICAL: Normal speech, gait not observed. PSYCH: Normal mood, normal affect. SKIN: Warm, dry, normal turgor, no rashes or lesions noted. Capillary refill <3 seconds. nails somewhat pale. Laboratory Results - last 24 hr 12/20/19 12/20/19 12/21/19 16:08 22:12 05:22 WBC RBC Hgb Hct MCV MCH MCHC RDW Plt Count MPV Absolute Neuts (auto) Neutrophils % Lymphocytes % Monocytes % Eosinophils % Basophils % Nucleated RBC % Sodium Potassium Chloride Carbon Dioxide Anion Gap BUN Creatinine Est GFR (CKD-EPI)AfAm Est GFR (CKD-EPI)NonAf POC Glucometer 214 268 169 Random Glucose Calcium Phosphorus Magnesium Total Bilirubin AST ALT Alkaline Phosphatase Total Protein Albumin 12/21/19 12/21/19 07:43 07:43 WBC 6.6 RBC 3.28 L Hgb 8.7 L Hct 26.7 L MCV 81.4 MCH 26.5 MCHC 32.6 RDW 18.2 H Plt Count 333 MPV 7.3 L Absolute Neuts (auto) 5.3 Neutrophils % 79.6 Lymphocytes % 11.4 Monocytes % 7.4 Eosinophils % 0.9 Basophils % 0.7 Nucleated RBC % 0 Sodium 138 Potassium 4.4 Chloride 104 Carbon Dioxide 26 Anion Gap 8 BUN 21.4 H Creatinine 1.3 Est GFR (CKD-EPI)AfAm 61.00 Est GFR (CKD-EPI)NonAf 52.63 POC Glucometer Random Glucose 189 H Calcium 8.3 L Phosphorus 3.5 Magnesium 2.2 Total Bilirubin 0.6 AST 78 H ALT 136 H Alkaline Phosphatase 164 H Total Protein 6.3 L Albumin 1.9 L Active Medications Generic Name Dose Route Start Last Admin Trade Name Freq PRN Reason Stop Dose Admin Albuterol Sulfate 2 puff 12/13/19 11:09 Ventolin Hfa Inhaler - IH Q8H PRN SHORTNESS OF BREATH Budesonide/Formoterol Fumarate 1 puff 12/13/19 22:00 12/21/19 10:01 Symbicort 160/4.5mcg - IH 1 puff BID [facility] Administration Carvedilol 3.125 mg 12/13/19 22:00 12/21/19 09:59 Coreg - PO 3.125 mg BID [facility] Administration Clopidogrel Bisulfate 75 mg 12/14/19 10:00 12/21/19 10:00 Plavix - PO 75 mg DAILY [facility] Administration Docusate Sodium 200 mg 12/21/19 22:00 Colace - PO HS [facility] Escitalopram Oxalate 5 mg 12/10/19 14:29 12/21/19 09:59 Lexapro - PO 5 mg DAILY [facility] Administration Furosemide 20 mg 12/14/19 10:00 12/21/19 10:00 Lasix - PO 20 mg DAILY [facility] Administration Guaifenesin 600 mg 12/15/19 11:30 12/21/19 09:59 Mucinex - PO 600 mg BID [facility] Administration Heparin Sodium (Porcine) 5,000 unit 12/13/19 14:00 12/21/19 13:59 Heparin - SQ 5,000 unit TID [facility] Administration Piperacillin Sod/Tazobactam 50 mls @ 100 mls/hr 12/19/19 15:15 12/21/19 09:58 Sod 3.375 gm/ Dextrose IVPB 100 mls/hr Q8H-IV [facility] Administration Protocol Insulin Aspart 1 vial 12/13/19 12:00 12/21/19 11:53 Novolog Vial Sliding Scale - SQ Not Given Q6HPO [facility] Protocol Insulin Detemir 2 units 12/12/19 22:00 12/20/19 21:25 Levemir Vial SQ 2 units HS [facility] Administration Insulin Detemir 6 units 12/20/19 07:00 12/21/19 06:14 Levemir Vial SQ 6 units AM [facility] Administration Latanoprost 1 drop 12/14/19 22:00 12/20/19 21:26 Xalatan 0.005% Eye Drops - OU 1 drop HS [facility] Administration Melatonin 10 mg 12/13/19 22:00 12/20/19 21:26 Melatonin PO 10 mg HS [facility] Administration Oxycodone HCl 5 mg 12/20/19 09:07 12/21/19 10:01 Roxicodone - PO 5 mg Q4H PRN Administration PAIN LEVEL 6-10 Polyethylene Glycol 17 gm 12/20/19 14:00 12/21/19 14:00 Miralax (For Daily Use) - PO 17 gm TID [facility] Administration Tamsulosin HCl 0.4 mg 12/13/19 22:00 12/20/19 21:26 Flomax - PO 0.4 mg HS [facility] Administration Valsartan 40 mg 12/12/19 11:30 12/21/19 10:00 Diovan - PO 40 mg DAILY [facility] Administration ASSESSMENT/PLAN: 79 year old male patient with past medical history that includes CHF, CAD s/p PCI, CKD, s/p medtronic ICD, DM, PVD s/p partial gastrectomy, achalasia, penile implant, CABG, HTN, and HLD, who presented to the ED after a fall. 1. Femoral Neck Fracture s/p Intramedullary Nail Surgery - Monitoring for any acute changes - Oxycodone 5mg Q4H PRN for pain 2. Fever secondary to possible infection - Blood cultures - Urine culture showed Normal Urogenital Manda - U/A showed 2+ Leuk Est, 2+ Protein, and 2+ Glucose - On Zosyn 3.375gm 3. Constipation possibly secondary to opiate pain medications - One bowel movement on 12/19/19 per chart - Colace 200mg Q12 with Colace 200mg qHS - Miralax 17gm TID 4. Acute Metabolic Encephalopathy possibly secondary to Low Hemoglobin - Hgb at to 8.7 today - Monitoring Hgb - Monitoring Electrolytes - Patient is A&Ox2 (name and place) - Monitoring patient's A&O status 5. APRYL - resolved - Creatinine is 1.3 today - Monitoring the Creatinine 6. Elevated LFTs - AST 78 (High) - ALT 136 (High) - Alk Phos 164 (High) - Total Bilirubin 0.6 (High) - Abdominal U/S showed borderline hepatomegaly with probable mild diffuse fatty infiltration of the liver. - Monitoring LFTs - MRCP could not be done due to non-MRI compatible items in the patient 7. CHF - ECHO in 05/2019 showed EF 60-65% - Repeat ECHO shows EF 55%, mild pulm htn, and normal right and left ventricles in size and function. - Lasix if crackles come back 8. Dehydration - resolved - Sodium 138 (within normal limits) - Chloride 104 (within normal limits) - Monitoring electrolytes - Soft Diet with [place] Thickened Liquids 9. Achalasia - The patient has the Soft Diet with Post Thickened Liquids 10. DM - Novolog sliding scale 11. HTN - Coreg, Lasix, Valsartan 12. HLD - Statin held # FEN - Monitoring Electrolytes, Soft Diet with Post Thickened Liquids DVT PPx - Heparin SQ and Plavix Visit type - Emergency Visit Emergency Visit: Yes ED Registration Date: 11/30/19 Care time: The patient presented to the Emergency Department on the above date and was hospitalized for further evaluation of their emergent condition. - New Patient This patient is new to me today: No - Critical Care Critical Care patient: No - Discharge Referral Referred to [facility] Med P.C.: No - Medication Review Med list reviewed for High Risk Meds patients 65 and older: Yes ATTENDING PHYSICIAN STATEMENT I saw and evaluated the patient. I reviewed the resident's note and discussed the case with the resident. I agree with the resident's findings and plan as documented. SUBJECTIVE: OBJECTIVE: ASSESSMENT AND PLAN:
[2019-12-21] MEDS ORDERED: INSULIN (NOVOLOG) ASPART 100 UNITS/ML 10ML VIAL ONE ×2 (17:23→21:30)
[2019-12-21] MEDS: TAMSULOSIN HCL 0.4 MG CAP PO SCH (21:45)
[2019-12-21] MEDS: MELATONIN 5 MG TABLETS PO SCH (21:46)
[2019-12-21] MEDS: LATANOPROST 0.005% OPHTH SOLN 2.5ML BOTTLE OU SCH (21:47)
[2019-12-21] MEDS ORDERED: DOCUSATE SODIUM 100 MG CAPSULE (FP) PO SCH (22:00)
[2019-12-22] MEDS ORDERED: PIPERACILLIN/TAZOBACTAM 3.375 GM VIAL IVPB ONE ×3 (01:46→17:39)
[2019-12-22] MEDS ORDERED: DEXTROSE 5%-WATER - 50 ML IVPB ONE ×3 (01:46→17:39)
[2019-12-22] MEDS: PIPERACILLIN/TAZOB 3.375 GM 3.375 GM in DEXTROSE 5%-WATER - 50 ML IVPB SCH ×3 (01:47→17:49)
[2019-12-22] MEDS: INSULIN SLIDING SCALE (NOVOLOG) 1 VIAL SQ SCH ×3 (06:19→18:18)
[2019-12-22] MEDS: INSULIN (LEVEMIR) 100 UNITS/ML UNITS SQ SCH ×2 (06:19→21:49)
[2019-12-22] MEDS: POLYETHYLENE GLYCOL 3350 119 GM BTL PO SCH (06:19)
[2019-12-22] MEDS: HEPARIN NA (PORCINE) 5,000 UNITS/ML 1ML VIAL SQ SCH ×3 (06:19→21:49)
[2019-12-22 08:20] LABS: BASO % 0.5 % (0-2.0); EOS % 1.2 % (0-4.5); HEMATOCRIT 24.7 % (35.4-49); LYMPH % 11.6 % (8-40); MCH 26.3 pg (25.7-33.7); MCHC 32.5 g/dl (32.0-35.9); MEAN CELL VOLUME 81.1 fl (80-96); MEAN PLT VOLUME 7.5 fl (7.5-11.1); MONO % 6.4 % (3.8-10.2); NEUT % 80.3 % (42.8-82.8); PLATELET COUNT 323 K/MM3 (134-434); RBC 3.05 M/mm3 (4.00-5.60); RDW 17.5 % (11.9-15.9); WHITE BLOOD COUNT 5.7 K/mm3 (4.0-10.0)
[2019-12-22 08:52] LABS: BILIRUBIN,TOTAL 0.6 mg/dL (0.2-1); BLOOD UREA NITROGEN 25.2 mg/dL (7-18); CALCIUM 8.2 mg/dL (8.5-10.1); MAGNESIUM 2.1 mg/dL (1.8-2.4); PHOSPHOROUS 3.1 mg/dL (2.5-4.9); POTASSIUM 4.6 mmol/L (3.5-5.1); TOT PROT 6.3 g/dl (6.4-8.2)
[2019-12-22 08:57] LABS: CREATININE 1.3 mg/dL (0.55-1.3)
[2019-12-22] MEDS ORDERED: PT OWN MED DRAWER 7, Y5N ONE (09:16)
[2019-12-22] MEDS: FUROSEMIDE 20 MG TABLET (FP) PO SCH (09:38)
[2019-12-22] MEDS: ESCITALOPRAM OXALATE 10 MG TABLET PO SCH (09:38)
[2019-12-22] MEDS: CARVEDILOL 3.125 MG TABLET (FP) PO SCH ×2 (09:38→21:49)
[2019-12-22] MEDS: VALSARTAN 40 MG TABLET (FP) PO SCH (09:38)
[2019-12-22] MEDS: guaiFENesin 600 MG TABLET.ER (FP) PO SCH ×2 (09:38→21:48)
[2019-12-22] MEDS: CLOPIDOGREL BISULFATE 75 MG TABLET (FP) PO SCH (09:38)
[2019-12-22] MEDS: BUDESONIDE/FORMETEROL FUMARATE 160/4.5 mcg INHALER IH SCH ×2 (09:39→21:50)
--- NOTE | 2019-12-22 10:36 | PN ---
Progress Note, Physician History of Present Illness: Low grade fever suspecting recurrent asp pneumonitis and Zosyn resumed, given MBS confirms silent aspiration resulting in post-prandial choking despite dysphagia diet. Now baseline mental status, denies chest pain, recurrent near or true syncope, dyspnea, orthopnea, tolerating lunch. - Current Medication List Current Medications: Active Medications Albuterol Sulfate (Ventolin Hfa Inhaler -) 2 puff IH Q8H PRN PRN Reason: SHORTNESS OF BREATH Budesonide/Formoterol Fumarate (Symbicort 160/4.5mcg -) 1 puff IH BID [facility] Last Admin: 12/22/19 09:39 Dose: 1 puff Documented by: Carvedilol (Coreg -) 3.125 mg PO BID [facility] Last Admin: 12/22/19 09:38 Dose: 3.125 mg Documented by: Clopidogrel Bisulfate (Plavix -) 75 mg PO DAILY [facility] Last Admin: 12/22/19 09:38 Dose: 75 mg Documented by: Docusate Sodium (Colace -) 200 mg PO TID [facility] Escitalopram Oxalate (Lexapro -) 5 mg PO DAILY [facility] Last Admin: 12/22/19 09:38 Dose: 5 mg Documented by: Furosemide (Lasix -) 20 mg PO DAILY [facility] Last Admin: 12/22/19 09:38 Dose: 20 mg Documented by: Guaifenesin (Mucinex -) 600 mg PO BID [facility] Last Admin: 12/22/19 09:38 Dose: 600 mg Documented by: Heparin Sodium (Porcine) (Heparin -) 5,000 unit SQ TID [facility] Last Admin: 12/22/19 06:19 Dose: 5,000 unit Documented by: Piperacillin Sod/Tazobactam (Sod 3.375 gm/ Dextrose) 50 mls @ 100 mls/hr IVPB Q8H-IV [facility]; Protocol Last Admin: 12/22/19 09:37 Dose: 100 mls/hr Documented by: Insulin Aspart (Novolog Vial Sliding Scale -) 1 vial SQ Q6HPO [facility]; Protocol Last Admin: 12/22/19 06:19 Dose: 2 units Documented by: Insulin Detemir (Levemir Vial) 2 units SQ HS [facility] Last Admin: 12/21/19 21:45 Dose: 2 units Documented by: Insulin Detemir (Levemir Vial) 6 units SQ AM [facility] Last Admin: 12/22/19 06:19 Dose: 6 units Documented by: Latanoprost (Xalatan 0.005% Eye Drops -) 1 drop OU [facility] Last Admin: 12/21/19 21:47 Dose: 1 drop Documented by: Melatonin (Melatonin) 10 mg PO [facility] Last Admin: 12/21/19 21:46 Dose: 10 mg Documented by: Oxycodone HCl (Roxicodone -) 5 mg PO Q4H PRN PRN Reason: PAIN LEVEL 6-10 Last Admin: 12/21/19 10:01 Dose: 5 mg Documented by: Polyethylene Glycol (Miralax (For Daily Use) -) 17 gm PO TID [facility] Last Admin: 12/22/19 06:19 Dose: 17 gm Documented by: Tamsulosin HCl (Flomax -) 0.4 mg PO [facility] Last Admin: 12/21/19 21:45 Dose: 0.4 mg Documented by: Valsartan (Diovan -) 40 mg PO DAILY [facility] Last Admin: 12/22/19 09:38 Dose: 40 mg Documented by: - Objective Vital Signs: Vital Signs Temperature 98.5 F 12/22/19 08:00 Pulse Rate 68 12/22/19 06:00 Respiratory Rate 20 12/21/19 21:00 Blood Pressure 123/51 L 12/22/19 06:00 O2 Sat by Pulse Oximetry (%) 95 12/22/19 06:00 Constitutional: Yes: No Distress, Calm, Thin Neck: Yes: Supple Cardiovascular: Yes: Regular Rate and Rhythm Respiratory: Yes: Regular, CTA Bilaterally Gastrointestinal: Yes: Normal Bowel Sounds, Soft Edema: No Labs: CBC, BMP 12/22/19 07:35 12/22/19 07:35 INR, PTT INR 1.08 (0.83-1.09) 12/01/19 06:40 Problem List - Problems (1) CAD (coronary artery disease) Code(s): I25.10 - ATHSCL HEART DISEASE OF [place] CORONARY ARTERY W/O ANG PCTRS Qualifiers: Coronary Disease-Associated Artery/Lesion type: [place] artery [place] vs. transplanted heart: [place] heart Associated angina: without angina Qualified Code(s): I25.10 - Atherosclerotic heart disease of [place] coronary artery without angina pectoris (2) COPD (chronic obstructive pulmonary disease) Code(s): J44.9 - CHRONIC OBSTRUCTIVE PULMONARY DISEASE, UNSPECIFIED Qualifiers: COPD type: unspecified COPD Qualified Code(s): J44.9 - Chronic obstructive pulmonary disease, unspecified (3) History of percutaneous coronary intervention Code(s): Z98.890 - OTHER SPECIFIED POSTPROCEDURAL STATES (4) Hx of CABG Code(s): Z95.1 - PRESENCE OF AORTOCORONARY BYPASS GRAFT (5) ICD (implantable cardioverter-defibrillator) in place Code(s): Z95.810 - PRESENCE OF AUTOMATIC (IMPLANTABLE) CARDIAC DEFIBRILLATOR (6) Ischemic cardiomyopathy Code(s): I25.5 - ISCHEMIC CARDIOMYOPATHY (7) Recurrent falls Code(s): R29.6 - REPEATED FALLS (8) Acute on chronic renal insufficiency Code(s): N28.9 - DISORDER OF KIDNEY AND URETER, UNSPECIFIED; N18.9 - CHRONIC KIDNEY DISEASE, UNSPECIFIED (9) Orthostatic hypotension Code(s): I95.1 - ORTHOSTATIC HYPOTENSION Assessment/Plan 12/13/2019 Echo: TDS normal biventricular size and fxn, RVSP 30, pacer wire seen 11/21/2019 Echo: Normal LV size with mild LVH and mild decreased LVEF 45-50%, grade I diastolic dysfunction, mild LAE, tr MR, mild-mod TR, mild AL RVSP 34 mmHg Echocardiography (10/15/18): Moderately reduced LV systolic function, LVEF 40-45%, grade 1 diastolic dysfunction, mild , mild MR, moderate TR, mild AL and pulmonary HTN. 1. s/p Left IM nail for femoral neck hip fracture 2. Aspiration pneumonia with recurrence 3. Chronic LV systolic heart failure (ischemic cardiomyopathy EF 45-50%) 4. CAD s/p IL, CABG, PCI/stents, angina pectoris 5. Post ICD implant 6. HTN 7. Hypercholesterolemia 8. T2DM 9. Acute on CKD stage 3 resolved 10. PAD s/p fem-pop bypass and CRUDE OIL TREATER 11. COPD 12. PUD s/p Bilroth II gastrectomy 13. 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 Gout 15. Kidney stones 16. Orthostatic hypotension off Northera 17. Gait disturbance 18. Post-op anemia 19. Hypernatremia resolved 20. Abormal LFTs plateauing PLAN: 1. Complete abx course per C&S, outpatient motility studies, needs dysphagia diet, trend LFTs and avoid hepatotoxins 2. Continue Diovan 40 qd and Lasix 20 qd as renal fxn stabilized, continue P lavix 75 mg QD, Coreg 3.125 mg BID and off Crestor 10 mg QHS pending LFT resolution. Monitor orthostasis, has not been taking Northera 100 qd 3. BD, O2 as needed DVT and GI prophylaxis and analgesia as needed 4. Monitor Hgb and transfuse as needed 5. PT as tolerated -> SNF 6. Eventual f/u with Dr. Morales in office upon discharge
[2019-12-22] MEDS ORDERED: DOCUSATE SODIUM 100 MG CAPSULE (FP) PO SCH ×2 (14:00→22:00)
[2019-12-22] MEDS: oxyCODONE HCL 5 MG TABLET PO PRN (16:00)
--- NOTE | 2019-12-22 17:40 | PN ---
Physical Exam: SUBJECTIVE: Patient seen and examined at bedside. The patient was able to have a bowel movement last night and this morning. He reports feeling dehydrated. He denies fever/chills, hallucinations, shortness of breath, and bowel/bladder problems. He is A&Ox3. OBJECTIVE: Vital Signs Period Temp Pulse Resp BP Sys/Garcia Pulse Ox Last 24 Hr 98.2 F-99.9 F 68-73 20-20 123-149/51-62 95-99 GENERAL: The patient is A&Ox3. HEAD: Normal with no signs of trauma. EYES: Extraocular movements intact, sclera anicteric. No ptosis. Pale conjuctiva. ENT: Ears normal, nares patent, oropharynx clear without exudates, dry mucous membranes. NECK: Trachea midline, full range of motion, supple. LUNGS: Decreased breath sounds bilaterally, no accessory muscle use. HEART: Regular rate and rhythm, S1, S2 without murmur, rub or gallop. ABDOMEN: Soft, nontender, nondistended, hyperactive bowel sounds. no guarding, no rebound, no masses. EXTREMITIES: 2+ pulses, warm, well-perfused, no edema. NEUROLOGICAL: Normal speech, gait not observed. PSYCH: Normal mood, normal affect. SKIN: Warm, dry, normal turgor, no rashes or lesions noted. Nails somewhat pale. Laboratory Results - last 24 hr 12/21/19 12/22/19 12/22/19 20:59 06:17 07:35 WBC 5.7 RBC 3.05 L Hgb 8.0 L Hct 24.7 L MCV 81.1 MCH 26.3 MCHC 32.5 RDW 17.5 H Plt Count 323 MPV 7.5 Absolute Neuts (auto) 4.6 Neutrophils % 80.3 Lymphocytes % 11.6 Monocytes % 6.4 Eosinophils % 1.2 Basophils % 0.5 Nucleated RBC % 0 Sodium Potassium Chloride Carbon Dioxide Anion Gap BUN Creatinine Est GFR (CKD-EPI)AfAm Est GFR (CKD-EPI)NonAf POC Glucometer 351 227 Random Glucose Calcium Phosphorus Magnesium Total Bilirubin AST ALT Alkaline Phosphatase Total Protein Albumin 12/22/19 12/22/19 07:35 13:39 WBC RBC Hgb Hct MCV MCH MCHC RDW Plt Count MPV Absolute Neuts (auto) Neutrophils % Lymphocytes % Monocytes % Eosinophils % Basophils % Nucleated RBC % Sodium 136 Potassium 4.6 Chloride 103 Carbon Dioxide 26 Anion Gap 7 L BUN 25.2 H Creatinine 1.3 Est GFR (CKD-EPI)AfAm 61.00 Est GFR (CKD-EPI)NonAf 52.63 POC Glucometer 338 Random Glucose 236 H Calcium 8.2 L Phosphorus 3.1 Magnesium 2.1 Total Bilirubin 0.6 AST 71 H ALT 129 H Alkaline Phosphatase 169 H Total Protein 6.3 L Albumin 2.0 L Active Medications Generic Name Dose Route Start Last Admin Trade Name Freq PRN Reason Stop Dose Admin Albuterol Sulfate 2 puff 12/13/19 11:09 Ventolin Hfa Inhaler - IH Q8H PRN SHORTNESS OF BREATH Budesonide/Formoterol Fumarate 1 puff 12/13/19 22:00 12/22/19 09:39 Symbicort 160/4.5mcg - IH 1 puff BID [facility] Administration Carvedilol 3.125 mg 12/13/19 22:00 12/22/19 09:38 Coreg - PO 3.125 mg BID [facility] Administration Clopidogrel Bisulfate 75 mg 12/14/19 10:00 12/22/19 09:38 Plavix - PO 75 mg DAILY [facility] Administration Docusate Sodium 200 mg 12/22/19 22:00 Colace - PO HS [facility] Escitalopram Oxalate 5 mg 12/10/19 14:29 12/22/19 09:38 Lexapro - PO 5 mg DAILY [facility] Administration Furosemide 20 mg 12/14/19 10:00 12/22/19 09:38 Lasix - PO 20 mg DAILY [facility] Administration Guaifenesin 600 mg 12/15/19 11:30 12/22/19 09:38 Mucinex - PO 600 mg BID [facility] Administration Heparin Sodium (Porcine) 5,000 unit 12/13/19 14:00 12/22/19 14:13 Heparin - SQ 5,000 unit TID [facility] Administration Piperacillin Sod/Tazobactam 50 mls @ 100 mls/hr 12/19/19 15:15 12/22/19 09:37 Sod 3.375 gm/ Dextrose IVPB 100 mls/hr Q8H-IV [facility] Administration Protocol Insulin Aspart 1 vial 12/13/19 12:00 12/22/19 14:13 Novolog Vial Sliding Scale - SQ 6 units Q6HPO [facility] Administration Protocol Insulin Detemir 2 units 12/12/19 22:00 12/21/19 21:45 Levemir Vial SQ 2 units HS [facility] Administration Insulin Detemir 6 units 12/20/19 07:00 12/22/19 06:19 Levemir Vial SQ 6 units AM [facility] Administration Latanoprost 1 drop 12/14/19 22:00 12/21/19 21:47 Xalatan 0.005% Eye Drops - OU 1 drop HS [facility] Administration Melatonin 10 mg 12/13/19 22:00 12/21/19 21:46 Melatonin PO 10 mg HS [facility] Administration Oxycodone HCl 5 mg 12/20/19 09:07 12/22/19 16:00 Roxicodone - PO 5 mg Q4H PRN Administration PAIN LEVEL 6-10 Polyethylene Glycol 17 gm 12/23/19 10:00 Miralax (For Daily Use) - PO DAILY [facility] Tamsulosin HCl 0.4 mg 12/13/19 22:00 12/21/19 21:45 Flomax - PO 0.4 mg HS [facility] Administration Valsartan 40 mg 12/12/19 11:30 12/22/19 09:38 Diovan - PO 40 mg DAILY [facility] Administration ASSESSMENT/PLAN: 79 year old male patient with past medical history that includes CHF, CAD s/p PCI, CKD, s/p medtronic ICD, DM, PVD s/p partial gastrectomy, achalasia, penile implant, CABG, HTN, and HLD, who presented to the ED after a fall. 1. Femoral Neck Fracture s/p Intramedullary Nail Surgery - Monitoring for any acute changes - Oxycodone 5mg Q4H PRN for pain 2. Fever secondary to possible infection - Blood cultures - Urine culture showed Normal Urogenital Manda <100,000 colonies - U/A showed 2+ Leuk Est, 2+ Protein, and 2+ Glucose - On Zosyn 3.375gm 3. Constipation possibly secondary to opiate pain medications - resolved - Colace 200mg qHS - Miralax 17gm QD - Bowel movement yesterday night and this morning 4. Acute Metabolic Encephalopathy possibly secondary to Low Hemoglobin - Hgb at to 8.0 today - Monitoring Hgb - Monitoring Electrolytes - Patient is A&Ox3 - Monitoring patient's A&O status 5. APRYL - resolved - Creatinine is 1.3 today - Monitoring the Creatinine 6. Elevated LFTs - AST 71 (High) - ALT 129 (High) - Alk Phos 169 (High) - Total Bilirubin 0.6 (WNL) - Abdominal U/S showed borderline hepatomegaly with probable mild diffuse fatty infiltration of the liver. - Monitoring LFTs - MRCP could not be done due to non-MRI compatible items in the patient 7. CHF - ECHO in 05/2019 showed EF 60-65% - Repeat ECHO shows EF 55%, mild pulm htn, and normal right and left ventricles in size and function. - Lasix if crackles come back 8. Dehydration - resolved - Sodium 136 (within normal limits) - Chloride 103 (within normal limits) - Monitoring electrolytes - Soft Diet with [place] Thickened Liquids 9. Achalasia - The patient has the Soft Diet with [place] Thickened Liquids 10. DM - Novolog sliding scale 11. HTN - Coreg, Lasix, Valsartan 12. HLD - Statin held # FEN - Monitoring Electrolytes, Soft Diet with [place] Thickened Liquids DVT PPx - Heparin SQ and Plavix Dispo - Possibly discharge tomorrow Visit type - Emergency Visit Emergency Visit: Yes ED Registration Date: 11/30/19 Care time: The patient presented to the Emergency Department on the above date and was hospitalized for further evaluation of their emergent condition. - New Patient This patient is new to me today: No - Critical Care Critical Care patient: No - Discharge Referral Referred to [facility] Med P.C.: No - Medication Review Med list reviewed for High Risk Meds patients 65 and older: Yes ATTENDING PHYSICIAN STATEMENT I saw and evaluated the patient. I reviewed the resident's note and discussed the case with the resident. I agree with the resident's findings and plan as documented. SUBJECTIVE: OBJECTIVE: ASSESSMENT AND PLAN:
[2019-12-22] MEDS ORDERED: INSULIN (NOVOLOG) ASPART 100 UNITS/ML 10ML VIAL ONE ×2 (18:18→21:24)
--- NOTE | 2019-12-22 18:26 | PN ---
Teaching Attending Note Name of Resident: Nate Valentino ATTENDING PHYSICIAN STATEMENT I saw and evaluated the patient. I reviewed the resident's note and discussed the case with the resident. I agree with the resident's findings and plan as documented. SUBJECTIVE: Patient is comfortable with no aCUTE Distress, no shortness of breath, no nausea or vomiting. OBJECTIVE: Vital Signs Temperature 98.2 F 12/22/19 14:54 Pulse Rate 71 12/22/19 14:54 Respiratory Rate 20 12/22/19 14:54 Blood Pressure 149/62 12/22/19 14:54 O2 Sat by Pulse Oximetry (%) 99 12/22/19 14:54 PE; per resident's note CBCD WBC 5.7 K/mm3 (4.0-10.0) 12/22/19 07:35 RBC 3.05 M/mm3 (4.00-5.60) L 12/22/19 07:35 Hgb 8.0 GM/dL (11.7-16.9) L 12/22/19 07:35 Hct 24.7 % (35.4-49) L 12/22/19 07:35 MCV 81.1 fl (80-96) 12/22/19 07:35 MCHC 32.5 g/dl (32.0-35.9) 12/22/19 07:35 RDW 17.5 % (11.9-15.9) H 12/22/19 07:35 Plt Count 323 K/MM3 (134-434) 12/22/19 07:35 MPV 7.5 fl (7.5-11.1) 12/22/19 07:35 CMP Sodium 136 mmol/L (136-145) 12/22/19 07:35 Potassium 4.6 mmol/L (3.5-5.1) 12/22/19 07:35 Chloride 103 mmol/L (98-107) 12/22/19 07:35 Carbon Dioxide 26 mmol/L (21-32) 12/22/19 07:35 Anion Gap 7 MMOL/L (8-16) L 12/22/19 07:35 BUN 25.2 mg/dL (7-18) H 12/22/19 07:35 Creatinine 1.3 mg/dL (0.55-1.3) 12/22/19 07:35 Random Glucose 236 mg/dL (74-106) H 12/22/19 07:35 Calcium 8.2 mg/dL (8.5-10.1) L 12/22/19 07:35 Total Bilirubin 0.6 mg/dL (0.2-1) 12/22/19 07:35 AST 71 U/L (15-37) H 12/22/19 07:35 ALT 129 U/L (13-61) H 12/22/19 07:35 Alkaline Phosphatase 169 U/L (45-117) H 12/22/19 07:35 Total Protein 6.3 g/dl (6.4-8.2) L 12/22/19 07:35 Albumin 2.0 g/dl (3.4-5.0) L 12/22/19 07:35 CARDIAC ENZYMES Creatine Kinase 14 U/L (26-308) L 12/15/19 07:30 Troponin I < 0.02 ng/ml (0.00-0.05) 11/30/19 08:35 Current Medications Generic Name Dose Route Start Last Admin Trade Name Freq PRN Reason Stop Dose Admin Albuterol Sulfate 2 puff 12/13/19 11:09 Ventolin Hfa Inhaler - IH Q8H PRN SHORTNESS OF BREATH Budesonide/Formoterol Fumarate 1 puff 12/13/19 22:00 12/22/19 09:39 Symbicort 160/4.5mcg - IH 1 puff BID [facility] Administration Carvedilol 3.125 mg 12/13/19 22:00 12/22/19 09:38 Coreg - PO 3.125 mg BID [facility] Administration Clopidogrel Bisulfate 75 mg 12/14/19 10:00 12/22/19 09:38 Plavix - PO 75 mg DAILY [facility] Administration Docusate Sodium 200 mg 12/22/19 22:00 Colace - PO HS [facility] Escitalopram Oxalate 5 mg 12/10/19 14:29 12/22/19 09:38 Lexapro - PO 5 mg DAILY [facility] Administration Furosemide 20 mg 12/14/19 10:00 12/22/19 09:38 Lasix - PO 20 mg DAILY [facility] Administration Guaifenesin 600 mg 12/15/19 11:30 12/22/19 09:38 Mucinex - PO 600 mg BID [facility] Administration Heparin Sodium (Porcine) 5,000 unit 12/13/19 14:00 12/22/19 14:13 Heparin - SQ 5,000 unit TID [facility] Administration Piperacillin Sod/Tazobactam 50 mls @ 100 mls/hr 12/19/19 15:15 12/22/19 17:49 Sod 3.375 gm/ Dextrose IVPB 100 mls/hr Q8H-IV [facility] Administration Protocol Insulin Aspart 1 vial 12/13/19 12:00 12/22/19 18:18 Novolog Vial Sliding Scale - SQ 6 units Q6HPO [facility] Administration Protocol Insulin Detemir 2 units 12/12/19 22:00 12/21/19 21:45 Levemir Vial SQ 2 units HS [facility] Administration Insulin Detemir 6 units 12/20/19 07:00 12/22/19 06:19 Levemir Vial SQ 6 units AM [facility] Administration Latanoprost 1 drop 12/14/19 22:00 12/21/19 21:47 Xalatan 0.005% Eye Drops - OU 1 drop HS [facility] Administration Melatonin 10 mg 12/13/19 22:00 12/21/19 21:46 Melatonin PO 10 mg HS [facility] Administration Oxycodone HCl 5 mg 12/20/19 09:07 12/22/19 16:00 Roxicodone - PO 5 mg Q4H PRN Administration PAIN LEVEL 6-10 Polyethylene Glycol 17 gm 12/23/19 10:00 Miralax (For Daily Use) - PO DAILY [facility] Tamsulosin HCl 0.4 mg 12/13/19 22:00 12/21/19 21:45 Flomax - PO 0.4 mg HS [facility] Administration Valsartan 40 mg 12/12/19 11:30 12/22/19 09:38 Diovan - PO 40 mg DAILY [facility] Administration Home Medications Medication Instructions Recorded Carvedilol 3.125 mg PO BID 12/08/18 Tamsulosin HCl 0.4 mg PO DAILY 01/11/19 Clopidogrel Bisulfate [Clopidogrel] 75 mg PO DAILY 04/07/19 Melatonin 10 mg PO HS 04/07/19 Albuterol Sulfate [Proair 2 puff NEB TID PRN 05/31/19 Digihaler] Bimatoprost [Lumigan] 1 drop DAILY 05/31/19 Furosemide 20 mg PO DAILY 05/31/19 Albuterol 0.083% Nebulizer Fatuma 1 neb NEB QID 11/30/19 [Ventolin 0.083% Nebulizer Soln -] Budesonide/Formeterol Fumarate 1 inh PO BID 11/30/19 [SYMBICORT 160/4.5mcg -] Clopidogrel Bisulfate [Plavix -] 75 mg PO DAILY tablet 12/19/19 Docusate Sodium [Colace -] 100 mg PO Q12H PRN capsule 12/19/19 Escitalopram Oxalate [Lexapro -] 5 mg PO DAILY tablet 12/19/19 Guaifenesin [Mucinex -] 600 mg PO BID tablet.er 12/19/19 Heparin - 5,000 unit SQ TID vial 12/19/19 Insulin (Levemir) [Levemir Vial] 2 units SQ HS units 12/19/19 Insulin (Levemir) [Levemir Vial] 6 units SQ AM units 12/19/19 Insulin Sliding Scale [Novolog 1 vial SQ Q6HPO units 12/19/19 Vial Sliding Scale -] Rosuvastatin Calcium [Crestor] 10 mg PO DAILY #30 tablet 12/19/19 Valsartan [Diovan] 40 mg PO DAILY 30 Days #30 tablet 12/19/19 Microbiology 12/19/19 15:30 Blood - Peripheral Venous Blood Culture - Preliminary NO GROWTH OBTAINED AFTER 72 HOURS, INCUBATION TO CONTINUE FOR 2 DAYS. 12/19/19 15:20 Blood - Peripheral Venous Blood Culture - Preliminary NO GROWTH OBTAINED AFTER 72 HOURS, INCUBATION TO CONTINUE FOR 2 DAYS. 12/21/19 10:08 Blood - Peripheral Venous Blood Culture - Preliminary NO GROWTH OBTAINED AFTER 24 HOURS, INCUBATION TO CONTINUE FOR 4 DAYS. 12/21/19 10:26 Blood - Peripheral Venous Blood Culture - Preliminary NO GROWTH OBTAINED AFTER 24 HOURS, INCUBATION TO CONTINUE FOR 4 DAYS. 12/16/19 09:55 Blood - Peripheral Venous Blood Culture - Final NO GROWTH AFTER 5 DAYS INCUBATION 12/16/19 09:55 Blood - Peripheral Venous Blood Culture - Final NO GROWTH AFTER 5 DAYS INCUBATION 12/19/19 16:00 Urine - Urine Clean Catch Urine Culture - Final Normal Urogenital Manda 12/03/19 21:00 Blood - Peripheral Venous Blood Culture - Final NO GROWTH AFTER 5 DAYS INCUBATION 12/03/19 21:00 Blood - Peripheral Venous Blood Culture - Final NO GROWTH AFTER 5 DAYS INCUBATION 12/04/19 11:00 Urine - Urine - Catheterized Urine Culture - Final Yeast Like Organism US: of abdomen: s/p cholecystectomy with no evidence of biliary tract obstruction, borderline hepatomegaly with probable mild diffuse fatty infiltration of the liver. ASSESSMENT AND PLAN: This patient is a 79yom with PMhx of systolic heart failure , CAD, s/p PCI ,CKD, s/p medtronic ICD, DM, PUD s/p partial gastrectomy, Achalasia , CABG, HTN, HLP,penile implant ,and copd ( 2 L of O2 ) , who presented after a fall and was found to have L sided femoral neck Fx #Possible recurrent aspiration pneumonia : on zosyn now as per ID , continue dysphagia diet s/p MBS: SILENT Aspiration on thin liquid, with no overt signs (no cough, no pt awareness) of aspiration. On soft diet, nectar thick liquids now continue # Acute transaminitis: elevated , continue to monitor , ordered MRCP by GI , patient has a pacemaker, cannot have MRCP , will repeat the level s/p Unasyn , no zosyn now for silent aspiration , dose of crestor 10mg and lexapro to 5mg . #POD#21 s/p L Fem neck Fx, s/p intramedullary nail , will dc him to rehab once stable to rehabilitation , follow with Dr Leung within a week upon discharge. # s/p FAll.: syncope vs orthostatic hypotension /dehydration # APRYL on CKD: back to baseline , back on diovan since back to his baseline # Hypernatremia /dehydration : on 1/2 ns IVF , improving sodium is 149--> 145-->142-->139-->137-->139-->136 today # Acute delirium: improved # H/o DM ,CAD, HLP: continue levemir, cont SSI q 6h. #Hx systolic heart failure L: gentle hydration # H/o HTN #Hx of COPD on home o2 2l #Low phos: repleted DVT Px: heparin continue PT
[2019-12-22] MEDS: TAMSULOSIN HCL 0.4 MG CAP PO SCH (21:48)
[2019-12-22] MEDS: MELATONIN 5 MG TABLETS PO SCH (21:49)
[2019-12-22] MEDS: LATANOPROST 0.005% OPHTH SOLN 2.5ML BOTTLE OU SCH (21:50)
[2019-12-23] MEDS ORDERED: PIPERACILLIN/TAZOBACTAM 3.375 GM VIAL IVPB ONE ×2 (02:29→09:29)
[2019-12-23] MEDS ORDERED: DEXTROSE 5%-WATER - 50 ML IVPB ONE ×2 (02:29→09:29)
[2019-12-23] MEDS: PIPERACILLIN/TAZOB 3.375 GM 3.375 GM in DEXTROSE 5%-WATER - 50 ML IVPB SCH ×2 (02:44→10:04)
[2019-12-23 05:03] VITALS: BP 143/62; PULSE 75; TEMP 99.7
[2019-12-23] MEDS: HEPARIN NA (PORCINE) 5,000 UNITS/ML 1ML VIAL SQ SCH ×2 (05:57→15:35)
[2019-12-23] MEDS: INSULIN SLIDING SCALE (NOVOLOG) 1 VIAL SQ SCH ×4 (06:11→14:55)
[2019-12-23] MEDS: INSULIN (LEVEMIR) 100 UNITS/ML UNITS SQ SCH (06:12)
--- NOTE | 2019-12-23 08:00 | PN ---
Progress Note, Physician History of Present Illness: Low grade fever suspecting recurrent asp pneumonitis and Zosyn resumed, given MBS confirms silent aspiration resulting in post-prandial choking despite dysphagia diet. Now baseline mental status, denies chest pain, recurrent near or true syncope, dyspnea, orthopnea. - Current Medication List Current Medications: Active Medications Albuterol Sulfate (Ventolin Hfa Inhaler -) 2 puff IH Q8H PRN PRN Reason: SHORTNESS OF BREATH Budesonide/Formoterol Fumarate (Symbicort 160/4.5mcg -) 1 puff IH BID [facility] Last Admin: 12/22/19 21:50 Dose: 1 puff Documented by: Carvedilol (Coreg -) 3.125 mg PO BID [facility] Last Admin: 12/22/19 21:49 Dose: 3.125 mg Documented by: Clopidogrel Bisulfate (Plavix -) 75 mg PO DAILY [facility] Last Admin: 12/22/19 09:38 Dose: 75 mg Documented by: Docusate Sodium (Colace -) 200 mg PO HS [facility] Last Admin: 12/22/19 21:49 Dose: 200 mg Documented by: Escitalopram Oxalate (Lexapro -) 5 mg PO DAILY [facility] Last Admin: 12/22/19 09:38 Dose: 5 mg Documented by: Furosemide (Lasix -) 20 mg PO DAILY [facility] Last Admin: 12/22/19 09:38 Dose: 20 mg Documented by: Guaifenesin (Mucinex -) 600 mg PO BID [facility] Last Admin: 12/22/19 21:48 Dose: 600 mg Documented by: Heparin Sodium (Porcine) (Heparin -) 5,000 unit SQ TID [facility] Last Admin: 12/23/19 05:57 Dose: 5,000 unit Documented by: Piperacillin Sod/Tazobactam (Sod 3.375 gm/ Dextrose) 50 mls @ 100 mls/hr IVPB Q8H-IV [facility]; Protocol Last Admin: 12/23/19 02:44 Dose: 100 mls/hr Documented by: Insulin Aspart (Novolog Vial Sliding Scale -) 1 vial SQ Q6HPO [facility]; Protocol Last Admin: 12/23/19 06:11 Dose: Not Given Documented by: Insulin Detemir (Levemir Vial) 2 units SQ HS [facility] Last Admin: 12/22/19 21:49 Dose: 2 units Documented by: Insulin Detemir (Levemir Vial) 6 units SQ AM [facility] Last Admin: 12/23/19 06:12 Dose: 6 units Documented by: Latanoprost (Xalatan 0.005% Eye Drops -) 1 drop OU HS [facility] Last Admin: 12/22/19 21:50 Dose: 1 drop Documented by: Melatonin (Melatonin) 10 mg PO [facility] Last Admin: 12/22/19 21:49 Dose: 10 mg Documented by: Oxycodone HCl (Roxicodone -) 5 mg PO Q4H PRN PRN Reason: PAIN LEVEL 6-10 Last Admin: 12/22/19 16:00 Dose: 5 mg Documented by: Polyethylene Glycol (Miralax (For Daily Use) -) 17 gm PO DAILY [facility] Tamsulosin HCl (Flomax -) 0.4 mg PO [facility] Last Admin: 12/22/19 21:48 Dose: 0.4 mg Documented by: Valsartan (Diovan -) 40 mg PO DAILY [facility] Last Admin: 12/22/19 09:38 Dose: 40 mg Documented by: - Objective Vital Signs: Vital Signs Temperature 99.7 F H 12/23/19 05:00 Pulse Rate 75 12/23/19 05:00 Respiratory Rate 20 12/23/19 05:00 Blood Pressure 143/62 12/23/19 05:00 O2 Sat by Pulse Oximetry (%) 98 12/23/19 05:00 Constitutional: Yes: No Distress, Calm, Thin Neck: Yes: Supple Cardiovascular: Yes: Regular Rate and Rhythm Respiratory: Yes: Regular, Diminished, On Nasal O2 Gastrointestinal: Yes: Soft, Hypoactive Bowel Sounds Genitourinary: Yes: Way Present Edema: No Labs: INR, PTT INR 1.08 (0.83-1.09) 12/01/19 06:40 Problem List - Problems (1) CAD (coronary artery disease) Code(s): I25.10 - ATHSCL HEART DISEASE OF [place] CORONARY ARTERY W/O ANG PCTRS Qualifiers: Coronary Disease-Associated Artery/Lesion type: [place] artery [place] vs. transplanted heart: [place] heart Associated angina: without angina Qualified Code(s): I25.10 - Atherosclerotic heart disease of [place] coronary artery without angina pectoris (2) COPD (chronic obstructive pulmonary disease) Code(s): J44.9 - CHRONIC OBSTRUCTIVE PULMONARY DISEASE, UNSPECIFIED Qualifiers: COPD type: unspecified COPD Qualified Code(s): J44.9 - Chronic obstructive pulmonary disease, unspecified (3) History of percutaneous coronary intervention Code(s): Z98.890 - OTHER SPECIFIED POSTPROCEDURAL STATES (4) Hx of CABG Code(s): Z95.1 - PRESENCE OF AORTOCORONARY BYPASS GRAFT (5) ICD (implantable cardioverter-defibrillator) in place Code(s): Z95.810 - PRESENCE OF AUTOMATIC (IMPLANTABLE) CARDIAC DEFIBRILLATOR (6) Ischemic cardiomyopathy Code(s): I25.5 - ISCHEMIC CARDIOMYOPATHY (7) Recurrent falls Code(s): R29.6 - REPEATED FALLS (8) Acute on chronic renal insufficiency Code(s): N28.9 - DISORDER OF KIDNEY AND URETER, UNSPECIFIED; N18.9 - CHRONIC KIDNEY DISEASE, UNSPECIFIED (9) Orthostatic hypotension Code(s): I95.1 - ORTHOSTATIC HYPOTENSION Assessment/Plan 12/13/2019 Echo: TDS normal biventricular size and fxn, RVSP 30, pacer wire seen 11/21/2019 Echo: Normal LV size with mild LVH and mild decreased LVEF 45-50%, grade I diastolic dysfunction, mild LAE, tr MR, mild-mod TR, mild SD RVSP 34 mmHg Echocardiography (10/15/18): Moderately reduced LV systolic function, LVEF 40-45%, grade 1 diastolic dysfunction, mild , mild MR, moderate TR, mild SD and pulmonary HTN. 1. s/p Left IM nail for femoral neck hip fracture 2. Aspiration pneumonia with recurrence 3. Chronic LV systolic heart failure (ischemic cardiomyopathy EF 45-50%) 4. CAD s/p [place], CABG, PCI/stents, angina pectoris 5. Post ICD implant 6. HTN 7. Hypercholesterolemia 8. T2DM 9. Acute on CKD stage 3 resolved 10. PAD s/p fem-pop bypass and MEDIATOR 11. COPD 12. PUD s/p Bilroth II gastrectomy 13. 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 Gout 15. Kidney stones 16. Orthostatic hypotension off Northera 17. Gait disturbance 18. Post-op anemia 19. Hypernatremia resolved 20. Abormal LFTs plateauing PLAN: 1. Complete abx course per C&S, outpatient motility studies, needs dysphagia diet, trend LFTs and avoid hepatotoxins 2. Continue Diovan 40 qd and Lasix 20 qd as renal fxn stabilized, continue Plavix 75 mg QD, Coreg 3.125 mg BID and off Crestor 10 mg QHS pending LFT resolution. Monitor orthostasis, has not been taking Northera 100 qd 3. BD, O2 as needed DVT and GI prophylaxis and analgesia as needed 4. Monitor Hgb and transfuse as needed 5. PT as tolerated -> SNF 6. Eventual f/u with Dr. Morales in office upon discharge
[2019-12-23 08:25] LABS: HEMATOCRIT 28.4 % (35.4-49); HEMOGLOBIN 9.1 GM/dL (11.7-16.9); MCH 26.1 pg (25.7-33.7); MCHC 32.2 g/dl (32.0-35.9); MEAN PLT VOLUME 7.5 fl (7.5-11.1); PLATELET COUNT 362 K/MM3 (134-434); RBC 3.51 M/mm3 (4.00-5.60); RDW 17.6 % (11.9-15.9); WHITE BLOOD COUNT 5.6 K/mm3 (4.0-10.0)
[2019-12-23 08:31] LABS: ALBUMIN 2.1 g/dl (3.4-5.0); BILIRUBIN,TOTAL 0.6 mg/dL (0.2-1); BLOOD UREA NITROGEN 24.8 mg/dL (7-18); CALCIUM 8.5 mg/dL (8.5-10.1); CREATININE 1.3 mg/dL (0.55-1.3); POTASSIUM 4.5 mmol/L (3.5-5.1); TOT PROT 6.8 g/dl (6.4-8.2)
[2019-12-23] MEDS ORDERED: PT OWN MED DRAWER 7, Y5N ONE (09:28)
[2019-12-23] MEDS: oxyCODONE HCL 5 MG TABLET PO PRN (09:39)
[2019-12-23] MEDS: guaiFENesin 600 MG TABLET.ER (FP) PO SCH (09:44)
[2019-12-23] MEDS: CLOPIDOGREL BISULFATE 75 MG TABLET (FP) PO SCH (09:44)
[2019-12-23] MEDS: ESCITALOPRAM OXALATE 10 MG TABLET PO SCH (09:44)
[2019-12-23] MEDS: VALSARTAN 40 MG TABLET (FP) PO SCH (09:44)
[2019-12-23] MEDS: CARVEDILOL 3.125 MG TABLET (FP) PO SCH (09:45)
[2019-12-23] MEDS: FUROSEMIDE 20 MG TABLET (FP) PO SCH (09:45)
[2019-12-23] MEDS ORDERED: POLYETHYLENE GLYCOL 3350 119 GM BTL PO SCH (10:00)
[2019-12-23] MEDS: BUDESONIDE/FORMETEROL FUMARATE 160/4.5 mcg INHALER IH SCH (10:03)
[2019-12-23] MEDS ORDERED: oxyCODONE HCL 5 MG TABLET PO PRN (10:30)
--- NOTE | 2019-12-23 12:23 | PN ---
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 impaired esoph emptying on all consistencies Risk of retrogrADE ASPIRATION clinically, pt expectorates after meals. REc-Soft, nectar, several small meals, HOB elevated f/u GI-w/u regarding structural vs motility deficits monitor pulm/nutritional status 12/01-Reg diet/thin liquids ordered. Nursing reports regurgitation after lunch, coughing. Aspiration suspected 12/04 MBS-SILENT Aspiration on thin liquid, with no overt signs (no cough, no pt awareness) of aspiration. No esophageal impairment noted. Pt reported to have spit up meds today. Pt reports spitting up food intermittently. H/o achalasia. Repeat MBS 12/04 without esophageal impairment reported Intermittent temperature may be related to expectoration/possible aspiration as well as aspiration noted on thin liquids (not always compliant with nectar thick) Seen today, self feeding, bringing up food/liquid intermittently. I believe this is ongoing/not new. Pt followed by GI- consider reassessment here or as out pt, per PMD. r/o persistent Achalasia/ dismotility/ rumination disorder? Up for d/c today.
--- NOTE | 2019-12-23 13:10 | PN ---
Progress Note, Physician History of Present Illness: LOW GRADE TEMP AWAKE IN BED WBC REMAINS WNL CULTURES NO GROWTH - Current Medication List Current Medications: Active Medications Albuterol Sulfate (Ventolin Hfa Inhaler -) 2 puff IH Q8H PRN PRN Reason: SHORTNESS OF BREATH Budesonide/Formoterol Fumarate (Symbicort 160/4.5mcg -) 1 puff IH BID [facility] Last Admin: 12/23/19 10:03 Dose: 1 puff Documented by: Carvedilol (Coreg -) 3.125 mg PO BID [facility] Last Admin: 12/23/19 09:45 Dose: 3.125 mg Documented by: Clopidogrel Bisulfate (Plavix -) 75 mg PO DAILY [facility] Last Admin: 12/23/19 09:44 Dose: 75 mg Documented by: Docusate Sodium (Colace -) 200 mg PO HS [facility] Last Admin: 12/22/19 21:49 Dose: 200 mg Documented by: Escitalopram Oxalate (Lexapro -) 5 mg PO DAILY [facility] Last Admin: 12/23/19 09:44 Dose: 5 mg Documented by: Furosemide (Lasix -) 20 mg PO DAILY [facility] Last Admin: 12/23/19 09:45 Dose: 20 mg Documented by: Guaifenesin (Mucinex -) 600 mg PO BID [facility] Last Admin: 12/23/19 09:44 Dose: 600 mg Documented by: Heparin Sodium (Porcine) (Heparin -) 5,000 unit SQ TID [facility] Last Admin: 12/23/19 05:57 Dose: 5,000 unit Documented by: Piperacillin Sod/Tazobactam (Sod 3.375 gm/ Dextrose) 50 mls @ 100 mls/hr IVPB Q8H-IV [facility]; Protocol Last Admin: 12/23/19 10:04 Dose: 100 mls/hr Documented by: Insulin Aspart (Novolog Vial Sliding Scale -) 1 vial SQ Q6HPO [facility]; Protocol Last Admin: 12/23/19 06:11 Dose: Not Given Documented by: Insulin Detemir (Levemir Vial) 2 units SQ HS [facility] Last Admin: 12/22/19 21:49 Dose: 2 units Documented by: Insulin Detemir (Levemir Vial) 6 units SQ AM [facility] Last Admin: 12/23/19 06:12 Dose: 6 units Documented by: Latanoprost (Xalatan 0.005% Eye Drops -) [address] [facility] Last Admin: 12/22/19 21:50 Dose: 1 drop Documented by: Melatonin (Melatonin) [address] [facility] Last Admin: 12/22/19 21:49 Dose: 10 mg Documented by: Oxycodone HCl (Roxicodone -) 2.5 mg PO Q4H PRN PRN Reason: PAIN LEVEL 6-10 Polyethylene Glycol (Miralax (For Daily Use) -) 17 gm PO DAILY [facility] Last Admin: 12/23/19 09:46 Dose: Not Given Documented by: Tamsulosin HCl (Flomax -) 0.[address] [facility] Last Admin: 12/22/19 21:48 Dose: 0.4 mg Documented by: Valsartan (Diovan -) 40 mg PO DAILY [facility] Last Admin: 12/23/19 09:44 Dose: 40 mg Documented by: - Objective Vital Signs: Vital Signs Temperature 99.7 F H 12/23/19 05:00 Pulse Rate 75 12/23/19 05:00 Respiratory Rate 20 12/23/19 05:00 Blood Pressure 143/62 12/23/19 05:00 O2 Sat by Pulse Oximetry (%) 98 12/23/19 05:00 Constitutional: Yes: No Distress Eyes: Yes: Conjunctiva Clear Cardiovascular: Yes: Regular Rate and Rhythm, S1, S2 Respiratory: Yes: CTA Bilaterally Gastrointestinal: Yes: Normal Bowel Sounds, Soft. No: Tenderness Extremities: Yes: Other (L HIP SURGICAL SITE NO ERYTHEMA) Labs: CBC, BMP 12/23/19 07:39 12/23/19 07:39 INR, PTT INR 1.08 (0.83-1.09) 12/01/19 06:40 Assessment/Plan FEVER RESOLVED S/P IM NAIL L FEMUR CULTURES NEGATIV WBC REMAINS WNL SUBSTITUTE CEFTIN 500MG PO BID X 7D OOB INCENTIVE SPIROMETRY
--- NOTE | 2019-12-23 13:32 | PN ---
Progress Note, Physician History of Present Illness: PULMONARY NO DISTRESS,-SOB,-CP,T 99.7 - Current Medication List Current Medications: Active Medications Albuterol Sulfate (Ventolin Hfa Inhaler -) 2 puff IH Q8H PRN PRN Reason: SHORTNESS OF BREATH Budesonide/Formoterol Fumarate (Symbicort 160/4.5mcg -) 1 puff IH BID [facility] Last Admin: 12/23/19 10:03 Dose: 1 puff Documented by: Carvedilol (Coreg -) 3.125 mg PO BID [facility] Last Admin: 12/23/19 09:45 Dose: 3.125 mg Documented by: Clopidogrel Bisulfate (Plavix -) 75 mg PO DAILY [facility] Last Admin: 12/23/19 09:44 Dose: 75 mg Documented by: Docusate Sodium (Colace -) 200 mg PO HS [facility] Last Admin: 12/22/19 21:49 Dose: 200 mg Documented by: Escitalopram Oxalate (Lexapro -) 5 mg PO DAILY [facility] Last Admin: 12/23/19 09:44 Dose: 5 mg Documented by: Furosemide (Lasix -) 20 mg PO DAILY [facility] Last Admin: 12/23/19 09:45 Dose: 20 mg Documented by: Guaifenesin (Mucinex -) 600 mg PO BID [facility] Last Admin: 12/23/19 09:44 Dose: 600 mg Documented by: Heparin Sodium (Porcine) (Heparin -) 5,000 unit SQ TID [facility] Last Admin: 12/23/19 05:57 Dose: 5,000 unit Documented by: Piperacillin Sod/Tazobactam (Sod 3.375 gm/ Dextrose) 50 mls @ 100 mls/hr IVPB Q8H-IV [facility]; Protocol Last Admin: 12/23/19 10:04 Dose: 100 mls/hr Documented by: Insulin Aspart (Novolog Vial Sliding Scale -) 1 vial SQ Q6HPO [facility]; Protocol Last Admin: 12/23/19 06:11 Dose: Not Given Documented by: Insulin Detemir (Levemir Vial) 2 units SQ HS [facility] Last Admin: 12/22/19 21:49 Dose: 2 units Documented by: Insulin Detemir (Levemir Vial) 6 units SQ AM [facility] Last Admin: 12/23/19 06:12 Dose: 6 units Documented by: Latanoprost (Xalatan 0.005% Eye Drops -) 1 drop OU [facility] Last Admin: 12/22/19 21:50 Dose: 1 drop Documented by: Melatonin (Melatonin) 10 mg PO [facility] Last Admin: 12/22/19 21:49 Dose: 10 mg Documented by: Oxycodone HCl (Roxicodone -) 2.5 mg PO Q4H PRN PRN Reason: PAIN LEVEL 6-10 Polyethylene Glycol (Miralax (For Daily Use) -) 17 gm PO DAILY [facility] Last Admin: 12/23/19 09:46 Dose: Not Given Documented by: Tamsulosin HCl (Flomax -) 0.4 mg PO [facility] Last Admin: 12/22/19 21:48 Dose: 0.4 mg Documented by: Valsartan (Diovan -) 40 mg PO DAILY [facility] Last Admin: 12/23/19 09:44 Dose: 40 mg Documented by: - Objective Vital Signs: Vital Signs Temperature 99.7 F H 12/23/19 05:00 Pulse Rate 75 12/23/19 05:00 Respiratory Rate 20 12/23/19 05:00 Blood Pressure 143/62 12/23/19 05:00 O2 Sat by Pulse Oximetry (%) 98 12/23/19 05:00 Constitutional: Yes: Calm, Thin Eyes: Yes: WNL HENT: Yes: WNL Neck: Yes: WNL Cardiovascular: Yes: Regular Rate and Rhythm, S1, S2 Respiratory: Yes: Diminished Gastrointestinal: Yes: Normal Bowel Sounds, Soft Extremities: Yes: WNL Edema: No Labs: CBC, BMP 12/23/19 07:39 12/23/19 07:39 INR, PTT INR 1.08 (0.83-1.09) 12/01/19 06:40 Problem List - Problems (1) Anemia Code(s): D64.9 - ANEMIA, UNSPECIFIED Qualifiers: Anemia type: unspecified type Qualified Code(s): D64.9 - Anemia, unspecified (2) Fall Code(s): W19.XXXA - UNSPECIFIED FALL, INITIAL ENCOUNTER Qualifiers: Encounter type: initial encounter Qualified Code(s): W19.XXXA - Unspecified fall, initial encounter (3) Hip fracture, left Code(s): S72.002A - FRACTURE OF UNSP PART OF NECK OF LEFT FEMUR, INIT Qualifiers: Encounter type: initial encounter Fracture type: closed Qualified Code(s): S72.002A - Fracture of unspecified part of neck of left femur, initial encounter for closed fracture (4) Neuropathy Code(s): G62.9 - POLYNEUROPATHY, UNSPECIFIED (5) Syncope Code(s): R55 - SYNCOPE AND COLLAPSE Qualifiers: Syncope type: unspecified Qualified Code(s): R55 - Syncope and collapse (6) Pneumonia Code(s): J18.9 - PNEUMONIA, UNSPECIFIED ORGANISM Qualifiers: Pneumonia type: due to unspecified organism Laterality: unspecified laterality Lung location: unspecified part of lung Qualified Code(s): J18.9 - Pneumonia, unspecified organism (7) Achalasia Code(s): K22.0 - ACHALASIA OF CARDIA (8) BPH (benign prostatic hypertrophy) Code(s): N40.0 - BENIGN PROSTATIC HYPERPLASIA WITHOUT LOWER URINRY TRACT SYMP Qualifiers: Lower urinary tract symptom presence: presence of symptoms unspecified (9) CAD (coronary artery disease) Code(s): I25.10 - ATHSCL HEART DISEASE OF [place] CORONARY ARTERY W/O ANG PCTRS Qualifiers: Coronary Disease-Associated Artery/Lesion type: [place] artery [place] vs. transplanted heart: [place] heart Associated angina: without angina Qualified Code(s): I25.10 - Atherosclerotic heart disease of [place] coronary artery without angina pectoris (10) CKD (chronic kidney disease) stage 3, GFR 30-59 ml/min Code(s): N18.3 - CHRONIC KIDNEY DISEASE, STAGE 3 (MODERATE) (11) COPD (chronic obstructive pulmonary disease) Code(s): J44.9 - CHRONIC OBSTRUCTIVE PULMONARY DISEASE, UNSPECIFIED (12) History of percutaneous coronary intervention Code(s): Z98.890 - OTHER SPECIFIED POSTPROCEDURAL STATES (13) Hx of CABG Code(s): Z95.1 - PRESENCE OF AORTOCORONARY BYPASS GRAFT (14) Hyperlipidemia Code(s): E78.5 - HYPERLIPIDEMIA, UNSPECIFIED Qualifiers: Hyperlipidemia type: pure hypercholesterolemia Qualified Code(s): E78.00 - Pure hypercholesterolemia, unspecified; E78.0 - Pure hypercholesterolemia (15) ICD (implantable cardioverter-defibrillator) in place Code(s): Z95.810 - PRESENCE OF AUTOMATIC (IMPLANTABLE) CARDIAC DEFIBRILLATOR (16) Ischemic cardiomyopathy Code(s): I25.5 - ISCHEMIC CARDIOMYOPATHY (17) Recurrent falls Code(s): R29.6 - REPEATED FALLS (18) Hypertension Code(s): I10 - ESSENTIAL (PRIMARY) HYPERTENSION Qualifiers: Hypertension type: essential hypertension Qualified Code(s): I10 - Essential (primary) hypertension Assessment/Plan IMP RLL PNEUMONIA LIKELY ASPIRATION IMPROVED CHF ASHD S/P CABG,PCI COPD LEFT HIP FX S/P MECHANICAL FALL S/P INTRA-MEDULLARY NAIL ALTERED MENTAL STATUS LIKELY TOXIC METABOLIC ENCEPHALOPATHY NEUROGENIC SYNCOPE DM HLD HTN H/O PUD S/P BILLROTH II H/O ACHALASIA S/P HELLER MYOTOMY ANEMIA HYPERNATREMIA CORRECTED ABNORMAL LFTS PLAN SUPPLEMENTAL O2 INHALED BRONCHODILATORS NORMAL TRANSFUSION THRESHOLD MONITOR LYTES,RENAL FUNCTION,H+ TREND LFTS F/U CHEST X-RAYS DR DELVALLE Problem List - Problems (1) Anemia Code(s): D64.9 - ANEMIA, UNSPECIFIED Qualifiers: Anemia type: unspecified type Qualified Code(s): D64.9 - Anemia, unspecified (2) Fall Code(s): W19.XXXA - UNSPECIFIED FALL, INITIAL ENCOUNTER Qualifiers: Encounter type: initial encounter Qualified Code(s): W19.XXXA - Unspecified fall, initial encounter (3) Hip fracture, left Code(s): S72.002A - FRACTURE OF UNSP PART OF NECK OF LEFT FEMUR, INIT Qualifiers: Encounter type: initial encounter Fracture type: closed Qualified Code(s): S72.002A - Fracture of unspecified part of neck of left femur, initial encounter for closed fracture (4) Neuropathy Code(s): G62.9 - POLYNEUROPATHY, UNSPECIFIED (5) Syncope Code(s): R55 - SYNCOPE AND COLLAPSE Qualifiers: Syncope type: unspecified Qualified Code(s): R55 - Syncope and collapse (6) Pneumonia Code(s): J18.9 - PNEUMONIA, UNSPECIFIED ORGANISM Qualifiers: Pneumonia type: due to unspecified organism Laterality: unspecified laterality Lung location: unspecified part of lung Qualified Code(s): J18.9 - Pneumonia, unspecified organism (7) Achalasia Code(s): K22.0 - ACHALASIA OF CARDIA (8) BPH (benign prostatic hypertrophy) Code(s): N40.0 - BENIGN PROSTATIC HYPERPLASIA WITHOUT LOWER URINRY TRACT SYMP Qualifiers: Lower urinary tract symptom presence: presence of symptoms unspecified (9) CAD (coronary artery disease) Code(s): I25.10 - ATHSCL HEART DISEASE OF [place] CORONARY ARTERY W/O ANG PCTRS Qualifiers: Coronary Disease-Associated Artery/Lesion type: [place] artery [place] vs. transplanted heart: [place] heart Associated angina: without angina Qualified Code(s): I25.10 - Atherosclerotic heart disease of [place] coronary artery witho ut angina pectoris (10) CKD (chronic kidney disease) stage 3, GFR 30-59 ml/min Code(s): N18.3 - CHRONIC KIDNEY DISEASE, STAGE 3 (MODERATE) (11) COPD (chronic obstructive pulmonary disease) Code(s): J44.9 - CHRONIC OBSTRUCTIVE PULMONARY DISEASE, UNSPECIFIED (12) History of percutaneous coronary intervention Code(s): Z98.890 - OTHER SPECIFIED POSTPROCEDURAL STATES (13) Hx of CABG Code(s): Z95.1 - PRESENCE OF AORTOCORONARY BYPASS GRAFT (14) Hyperlipidemia Code(s): E78.5 - HYPERLIPIDEMIA, UNSPECIFIED Qualifiers: Hyperlipidemia type: pure hypercholesterolemia Qualified Code(s): E78.00 - Pure hypercholesterolemia, unspecified; E78.0 - Pure hypercholesterolemia (15) ICD (implantable cardioverter-defibrillator) in place Code(s): Z95.810 - PRESENCE OF AUTOMATIC (IMPLANTABLE) CARDIAC DEFIBRILLATOR (16) Ischemic cardiomyopathy Code(s): I25.5 - ISCHEMIC CARDIOMYOPATHY (17) Recurrent falls Code(s): R29.6 - REPEATED FALLS (18) Hypertension Code(s): I10 - ESSENTIAL (PRIMARY) HYPERTENSION Qualifiers: Hypertension type: essential hypertension Qualified Code(s): I10 - Essential (primary) hypertension
--- NOTE | 2019-12-23 14:37 | PN ---
Teaching Attending Note Name of Resident: Nate Valentino ATTENDING PHYSICIAN STATEMENT I saw and evaluated the patient. I reviewed the resident's note and discussed the case with the resident. I agree with the resident's findings and plan as documented. SUBJECTIVE: Patient is comfortable, no further fever. OBJECTIVE: Vital Signs Temperature 99.7 F H 12/23/19 05:00 Pulse Rate 75 12/23/19 05:00 Respiratory Rate 20 12/23/19 05:00 Blood Pressure 143/62 12/23/19 05:00 O2 Sat by Pulse Oximetry (%) 98 12/23/19 05:00 PE:per resident's note CBCD WBC 5.6 K/mm3 (4.0-10.0) 12/23/19 07:39 RBC 3.51 M/mm3 (4.00-5.60) L 12/23/19 07:39 Hgb 9.1 GM/dL (11.7-16.9) L 12/23/19 07:39 Hct 28.4 % (35.4-49) L 12/23/19 07:39 MCV 81.0 fl (80-96) 12/23/19 07:39 MCHC 32.2 g/dl (32.0-35.9) 12/23/19 07:39 RDW 17.6 % (11.9-15.9) H 12/23/19 07:39 Plt Count 362 K/MM3 (134-434) 12/23/19 07:39 MPV 7.5 fl (7.5-11.1) 12/23/19 07:39 CMP Sodium 138 mmol/L (136-145) 12/23/19 07:39 Potassium 4.5 mmol/L (3.5-5.1) 12/23/19 07:39 Chloride 102 mmol/L (98-107) 12/23/19 07:39 Carbon Dioxide 28 mmol/L (21-32) 12/23/19 07:39 Anion Gap 8 MMOL/L (8-16) 12/23/19 07:39 BUN 24.8 mg/dL (7-18) H 12/23/19 07:39 Creatinine 1.3 mg/dL (0.55-1.3) 12/23/19 07:39 Random Glucose 177 mg/dL (74-106) H 12/23/19 07:39 Calcium 8.5 mg/dL (8.5-10.1) 12/23/19 07:39 Total Bilirubin 0.6 mg/dL (0.2-1) 12/23/19 07:39 AST 79 U/L (15-37) H 12/23/19 07:39 ALT 138 U/L (13-61) H 12/23/19 07:39 Alkaline Phosphatase 173 U/L (45-117) H 12/23/19 07:39 Total Protein 6.8 g/dl (6.4-8.2) 12/23/19 07:39 Albumin 2.1 g/dl (3.4-5.0) L 12/23/19 07:39 CARDIAC ENZYMES Creatine Kinase 14 U/L (26-308) L 12/15/19 07:30 Troponin I < 0.02 ng/ml (0.00-0.05) 11/30/19 08:35 Current Medications Generic Name Dose Route Start Last Admin Trade Name Freq PRN Reason Stop Dose Admin Albuterol Sulfate 2 puff 12/13/19 11:09 Ventolin Hfa Inhaler - IH Q8H PRN SHORTNESS OF BREATH Budesonide/Formoterol Fumarate 1 puff 12/13/19 22:00 12/23/19 10:03 Symbicort 160/4.5mcg - IH 1 puff BID [facility] Administration Carvedilol 3.125 mg 12/13/19 22:00 12/23/19 09:45 Coreg - PO 3.125 mg BID [facility] Administration Clopidogrel Bisulfate 75 mg 12/14/19 10:00 12/23/19 09:44 Plavix - PO 75 mg DAILY [facility] Administration Docusate Sodium 200 mg 12/22/19 22:00 12/22/19 21:49 Colace - PO 200 mg HS [facility] Administration Escitalopram Oxalate 5 mg 12/10/19 14:29 12/23/19 09:44 Lexapro - PO 5 mg DAILY [facility] Administration Furosemide 20 mg 12/14/19 10:00 12/23/19 09:45 Lasix - PO 20 mg DAILY [facility] Administration Guaifenesin 600 mg 12/15/19 11:30 12/23/19 09:44 Mucinex - PO 600 mg BID [facility] Administration Heparin Sodium (Porcine) 5,000 unit 12/13/19 14:00 12/23/19 05:57 Heparin - SQ 5,000 unit TID [facility] Administration Piperacillin Sod/Tazobactam 50 mls @ 100 mls/hr 12/19/19 15:15 12/23/19 10:04 Sod 3.375 gm/ Dextrose IVPB 100 mls/hr Q8H-IV [facility] Administration Protocol Insulin Aspart 1 vial 12/13/19 12:00 12/23/19 06:11 Novolog Vial Sliding Scale - SQ Not Given Q6HPO [facility] Protocol Insulin Detemir 2 units 12/12/19 22:00 12/22/19 21:49 Levemir Vial SQ 2 units HS [facility] Administration Insulin Detemir 6 units 12/20/19 07:00 12/23/19 06:12 Levemir Vial SQ 6 units AM [facility] Administration Latanoprost 1 drop 12/14/19 22:00 12/22/19 21:50 Xalatan 0.005% Eye Drops - OU 1 drop HS [facility] Administration Melatonin 10 mg 12/13/19 22:00 12/22/19 21:49 Melatonin PO 10 mg HS [facility] Administration Oxycodone HCl 2.5 mg 12/23/19 10:30 Roxicodone - PO Q4H PRN PAIN LEVEL 6-10 Polyethylene Glycol 17 gm 12/23/19 10:00 12/23/19 09:46 Miralax (For Daily Use) - PO Not Given DAILY [facility] Tamsulosin HCl 0.4 mg 12/13/19 22:00 12/22/19 21:48 Flomax - PO 0.4 mg HS [facility] Administration Valsartan 40 mg 12/12/19 11:30 12/23/19 09:44 Diovan - PO 40 mg DAILY [facility] Administration Home Medications Medication Instructions Recorded Carvedilol 3.125 mg PO BID 12/08/18 Tamsulosin HCl 0.4 mg PO DAILY 01/11/19 Clopidogrel Bisulfate [Clopidogrel] 75 mg PO DAILY 04/07/19 Melatonin 10 mg PO HS 04/07/19 Albuterol Sulfate [Proair 2 puff NEB TID PRN 05/31/19 Digihaler] Bimatoprost [Lumigan] 1 drop DAILY 05/31/19 Furosemide 20 mg PO DAILY 05/31/19 Albuterol 0.083% Nebulizer Fatuma 1 neb NEB QID 11/30/19 [Ventolin 0.083% Nebulizer Soln -] Budesonide/Formeterol Fumarate 1 inh PO BID 11/30/19 [SYMBICORT 160/4.5mcg -] Clopidogrel Bisulfate [Plavix -] 75 mg PO DAILY tablet 12/19/19 Docusate Sodium [Colace -] 100 mg PO Q12H PRN capsule 12/19/19 Guaifenesin [Mucinex -] 600 mg PO BID tablet.er 12/19/19 Heparin - 5,000 unit SQ TID vial 12/19/19 Insulin (Levemir) [Levemir Vial] 2 units SQ HS units 12/19/19 Insulin (Levemir) [Levemir Vial] 6 units SQ AM units 12/19/19 Insulin Sliding Scale [Novolog 1 vial SQ Q6HPO units 12/19/19 Vial Sliding Scale -] Rosuvastatin Calcium [Crestor] 10 mg PO DAILY #30 tablet 12/19/19 Valsartan [Diovan] 40 mg PO DAILY 30 Days #30 tablet 12/19/19 Cefuroxime Axetil [Ceftin -] 500 mg PO Q12H 7 Days #14 tablet 12/23/19 Polyethylene Glycol 3350 [Miralax 17 gm PO DAILY PRN 30 Days bottle 12/23/19 119 gm Btl -] Microbiology 12/21/19 10:08 Blood - Peripheral Venous Blood Culture - Preliminary NO GROWTH OBTAINED AFTER 48 HOURS, INCUBATION TO CONTINUE FOR 3 DAYS. 12/21/19 10:26 Blood - Peripheral Venous Blood Culture - Preliminary NO GROWTH OBTAINED AFTER 48 HOURS, INCUBATION TO CONTINUE FOR 3 DAYS. 12/19/19 15:30 Blood - Peripheral Venous Blood Culture - Preliminary NO GROWTH OBTAINED AFTER 72 HOURS, INCUBATION TO CONTINUE FOR 2 DAYS. 12/19/19 15:20 Blood - Peripheral Venous Blood Culture - Preliminary NO GROWTH OBTAINED AFTER 72 HOURS, INCUBATION TO CONTINUE FOR 2 DAYS. 12/16/19 09:55 Blood - Peripheral Venous Blood Culture - Final NO GROWTH AFTER 5 DAYS INCUBATION 12/16/19 09:55 Blood - Peripheral Venous Blood Culture - Final NO GROWTH AFTER 5 DAYS INCUBATION 12/19/19 16:00 Urine - Urine Clean Catch Urine Culture - Final Normal Urogenital Manda 12/03/19 21:00 Blood - Peripheral Venous Blood Culture - Final NO GROWTH AFTER 5 DAYS INCUBATION 12/03/19 21:00 Blood - Peripheral Venous Blood Culture - Final NO GROWTH AFTER 5 DAYS INCUBATION 12/04/19 11:00 Urine - Urine - Catheterized Urine Culture - Final Yeast Like Organism US: of abdomen: s/p cholecystectomy with no evidence of biliary tract obstruction, borderline hepatomegaly with probable mild diffuse fatty infiltr ation of the liver. ASSESSMENT AND PLAN: This patient is a 79yom with PMhx of systolic heart failure , CAD, s/p PCI ,CKD, s/p medtronic ICD, DM, PUD s/p partial gastrectomy, Achalasia , CABG, HTN, HLP,penile implant ,and copd ( 2 L of O2 ) , who presented after a fall and was found to have L sided femoral neck Fx #Possible recurrent aspiration pneumonia : s/p zosyn , discussed with ID, to co ntinue with ceftin 500mg po bid, continue dysphagia diet s/p MBS: SILENT Aspiration on thin liquid, with no overt signs (no cough, no pt awareness) of aspiration. On soft diet, nectar thick liquids now continue , no thin liquid, elevate the head of the bed to 35 degrees # Acute transaminitis: possible due to meds, christopher lower cretor further to 5mg, and dc zosyn and continue with ceftin x 4 more days. ordered MRCP by GI , patient has a pacemaker, cannot have MRCP , will repeat the level s/p Unasyn and zosyn for silent aspiration , dose of crestor 10mg-->5mg and lexapro to 5mg (dose reduced) . #POD#20 s/p L Fem neck Fx, s/p intramedullary nail , will dc him to rehab once stable to rehabilitation # s/p FAll.: syncope vs orthostatic hypotension /dehydration # APRYL on CKD: back to baseline , back on diovan since back to his baseline # Hypernatremia /dehydration : on 1/2 ns IVF , improving sodium is 149--> 145-->142-->139-->137-->139-->138 today # Acute delirium: improved # H/o DM ,CAD, HLP: continue levemir, cont SSI q 6h. #Hx systolic heart failure L: continue meds # H/o HTN: continue home meds. #Hx of COPD on home o2 2l #Low phos: repleted DVT Px: heparin continue PT in rehab As per Mita Celsa : REc-Soft, nectar, several small meals, HOB elevated f/u GI-w/u regarding structural vs motility deficits MBS-SILENT Aspiration on thin liquid, with no overt signs (no cough, no pt awareness) of aspiration. No esophageal impairment noted. dc patient home.
--- NOTE | 2019-12-23 15:49 | DS ---
Physical Exam: SUBJECTIVE: Patient seen and examined at bedside. The patient is A&Ox2 (name and place). He denies fever/chills, cough, and pain. OBJECTIVE: Vital Signs Period Temp Pulse Resp BP Sys/Garcia Pulse Ox Last 24 Hr 98.0 F-99.7 F 73-75 20-20 128-155/57-67 98-100 PHYSICAL EXAM GENERAL: The patient is A&Ox2 (name and place). HEAD: Normal with no signs of trauma. EYES: Extraocular movements intact, sclera anicteric. No ptosis. Pale conjuctiva. ENT: Ears normal, nares patent, oropharynx clear without exudates, dry mucous membranes. NECK: Trachea midline, full range of motion, supple. LUNGS: Decreased breath sounds bilaterally, no accessory muscle use. HEART: Regular rate and rhythm, S1, S2 without murmur, rub or gallop. ABDOMEN: Soft, nontender, nondistended, hyperactive bowel sounds. no guarding, no rebound, no masses. EXTREMITIES: 2+ pulses, warm, well-perfused, no edema. NEUROLOGICAL: Normal speech, gait not observed. PSYCH: Normal mood, normal affect. SKIN: Warm, dry, normal turgor, no rashes or lesions noted. Nails somewhat pale. LABS Laboratory Results - last 24 hr 12/22/19 12/22/19 12/23/19 17:44 21:43 06:08 WBC RBC Hgb Hct MCV MCH MCHC RDW Plt Count MPV Sodium Potassium Chloride Carbon Dioxide Anion Gap BUN Creatinine Est GFR (CKD-EPI)AfAm Est GFR (CKD-EPI)NonAf POC Glucometer 306 269 159 Random Glucose Calcium Total Bilirubin AST ALT Alkaline Phosphatase Total Protein Albumin 12/23/19 12/23/19 12/23/19 07:39 07:39 14:42 WBC 5.6 RBC 3.51 L Hgb 9.1 L Hct 28.4 L MCV 81.0 MCH 26.1 MCHC 32.2 RDW 17.6 H Plt Count 362 MPV 7.5 Sodium 138 Potassium 4.5 Chloride 102 Carbon Dioxide 28 Anion Gap 8 BUN 24.8 H Creatinine 1.3 Est GFR (CKD-EPI)AfAm 61.00 Est GFR (CKD-EPI)NonAf 52.63 POC Glucometer 333 Random Glucose 177 H Calcium 8.5 Total Bilirubin 0.6 AST 79 H ALT 138 H Alkaline Phosphatase 173 H Total Protein 6.8 Albumin 2.1 L HOSPITAL COURSE: Date of Admission:11/30/19 79 year old male patient with past medical history that includes CHF, CAD s/p PCI, CKD, s/p medtronic ICD, DM, PVD s/p partial gastrectomy, achalasia, penile implant, CABG, HTN, and HLD, who presented to the ED after a fall. The patient had a Femoral Neck Fracture and underwent Intramedullary Nail Surgery on 12/01/2019. After the surgery the patient's hemoglobin fell from 10.6 before the surgery to 8.5 after the surgery. Creatinine peaked to 2.4 on 12/02/2019 (baseline Creatinine of about 1.1), with resolution of the APRYL by 12/11/2019. The patient then spiked a fever of 102.8F on 12/03/2019. The patient underwent a fe isiah workup. Urine culture grew a yeast like organism, which the patient has a history of. The patient has achalasia, so aspiration pneumonia was also suspected. Patient was on a dysphagia diet for his achalasia, and later advanved to a soft diet with nectar thickened liquids once the patient was able to tolerate it. CXR showed a patchy right infiltrate. Patient received antibiotics. Dehydration was suspected, so the patient was given IV fluids. Lasix given for CHF if crackles were heard on lung exam. The hemoglobin then steadily fell until it was 7.3 on 12/05/2019. On 12/06/2019 the patient was A&Ox1, confused, and hallucinating, so he was transfused 1 pRBC due to his history of heart problems. Follow up CBC showed a Hgb of 8.5 By 12/09/2019 the patient was A&Ox3 and no longer hallucinating. On 12/06/2019 the patient AST and ALT began rising. Alk Phos began rising on 12/10/2019. Abdominal U/S showed borderline hepatomegaly with probable mild diffuse fatty infiltration of the li isiah. MRCP recommended by GI, but could not be done due to non-MRI compatible items in the patient. Hemoglobin again dropped below 8.0, to 7.6, on 12/12/2019. The patient was given another 1 pRBC, for a final total for his hospital admission of 2 pRBCs. Patient had constipation, so he was given Miralax TID, Docusate TID, 2 Glycerin suppositories, and a Mineral Oil enema, with resolution of his constipation. The patient then spiked a fever of 101.6 of 12/16/2019 and 103.0 on 12/19/2019. Fever workup done both times. Patient was on Zosyn antibiotics. Patient then became A&Ox3 (from his previous A&Ox2 only to name and place). Patient's cultures came back negative, so he was deemed okay to be discharged. Patient was A&Ox2 on discharge possibly secondary to dehydration, as his hemoglobin was 9.1, and he was on antibiotics with no fever of 100.4 or greater in over 24 hours. Patient discharged to [facility] for rehab, with followup with Machine Plug Shaper, GI (for colonoscopy for anemia and for elevated LFTs), Motility specialist (for achalasia), Oncologist (for a nonspecific density found on cervical CT), Ruby On Rails Consultant (for a ultrasound finding on his kidney of a 0.5 cm echogenic focus), and his Primary Care Physician Dr. Vikash Guerra. Date of Discharge: 12/23/19 Minutes to complete discharge: 40 Discharge Summary Problems reviewed: Yes Reason For Visit: FRACTURE OF HIP Current Active Problems Abnormal liver function tests (Acute) Neuropathy (Acute) Achalasia (Chronic) Condition: Stable - Instructions Diet, Activity, Other Instructions: You were admitted to the hospital because of a fall. While you were at the hospital, we evaluated you with lab work, blood work, and imaging. Based on our evaluation, we found that you broke your left femoral neck bone. You underwent surgery to fix your bone fracture. While you were at the hospital, you had low blood found on your blood work two times and was given 1 unit of blood each time. Your liver enzymes were also found to be elevated. Please follow up with your Primary Care physician about this finding and please avoid taking Tylenol and take your Rosuvastatin at a lower dose until you follow up with your Primary Care physician. Diet Recommendation Please eat upright, small portioned, well chewed, minced diabetic-diet food, and avoid laying down for 3 hours after eating. Please drink thickened liquids (nec tar-thick liquid consistency) to avoid aspiration. Imaging Findings The following imaging findings were found while you were at the hospital: A CAT scan of the spine in your neck found a nonspecific density slightly bigger than what was found on your CAT scan in 2013. Please follow up with the Oncologist about this finding and for a possible bone scan. Please follow up with the Ruby On Rails Consultant about this finding. An ultrasound of your abdomen found probable mild fatty liver. Because you have elevated liver enzyme blood levels, please follow up with the Invasive Manager and/or Primary Care physician about this finding. An ultrasound of the blood vessels in your neck found extensive atherosclerosis. Medications Please start taking the antibiotic Ceftin 500mg every 12 hours by mouth for 7 days from 12/24/2019 to 12/30/2019. Please start taking Diovan 40mg daily for blood pressure control Please AVOID taking Tylenol due to your elevated liver enzymes until you follow up with your Primary Care physician. Please continue taking Rosuvastatin 5mg at lower dose since you have elevated liver enzymes until you follow up with your Primary Care physician. PLEASE FOLLOW UP WITH within a week period. Please continue all of your medications as prescribed. DIET: RECOMMENDED TO HAVE Soft, nectar, several small meals, HEAD OF BED elevated TO 35 DEGREES fOLLOW UP WITH CONTENT CURATOR regarding structural vs motility deficits mODIFIED BARIUM SWALLOW : SILENT Aspiration on thin liquid, PLEASE DO NOT HAVE THIN LIQUID Follow ups Please follow up with the Machine Plug Shaper Dr. Jayy Morales ([facility]; [phone]) within 1 week. Please follow up with the Invasive Manager Dr. Pardeep Saldana within 1 week for a colonoscopy due to your anemia and your elevated liver enzyme blood levels. Please follow up with a motility specialist due to your difficulty swallowing: Dr. Yung Aponte from [facility] ([phone]), Dr Gael Graves at [facility] within 1 week. Please follow up with the Oncologist Dr. Harini Slater within 2 weeks because of the CAT scan finding for a bone scan. Please follow up with the Ruby On Rails Consultant Dr. Gabriel Teague within 2 weeks because of the kidney ultrasound finding. Please follow up with the Primary Care physician Dr. Vikash Guerra within 1 week to check on your liver enzyme blood levels, which were high while you were at the hospital. If you experience worsening symptoms, chest pain, shortness of breath, abdominal pain, or worsening of your condition, please come to the emergency room or call 911. Referrals: Vikash Guerra MD [Primary Care Provider] - 1 Week (needs repeat LFTs) Alex Saldana DO [Staff Physician] - 1 Week (Colonoscopy with Plavix held for 5 days given history of colon polyps.) Brandon Leung MD [Staff Physician] - 1 Week Jayy Morales MD [Staff Physician] - 1 Week Harini Slater MD [Staff Physician] - 2 Weeks (non specific density in C2 slightly bigger than CT in 2013. bone scan as out patient.) Gabriel Teague MD [Staff Physician] - 2 Weeks (Renal Ultrasound found a stable 0.5 cm echogenic focus which may represent an incidental cortical calcification or small angiomyolipoma and left renal atrophy.) Yung Aponte MD [Non Staff, Medical] - 1 Week (r/o persistent Achalasia/ dismotility/ rumination disorder) Disposition: [facility] - Home Medications Comprehensive Discharge Medication List: Ambulatory Orders Carvedilol 3.125 mg PO BID 12/08/18 Tamsulosin HCl 0.4 mg PO DAILY 01/11/19 Clopidogrel Bisulfate [Clopidogrel] 75 mg PO DAILY 04/07/19 Melatonin 10 mg PO HS 04/07/19 Albuterol Sulfate [Proair Digihaler] 2 puff NEB TID PRN 05/31/19 Bimatoprost [Lumigan] 1 drop DAILY 05/31/19 Furosemide 20 mg PO DAILY 05/31/19 Budesonide/Formeterol Fumarate [SYMBICORT 160/4.5mcg -] 1 inh PO BID 11/30/19 Docusate Sodium [Colace -] 100 mg PO Q12H PRN capsule 12/19/19 Guaifenesin [Mucinex -] 600 mg PO BID tablet.er 12/19/19 Heparin - 5,000 unit SQ TID vial 12/19/19 Insulin (Levemir) [Levemir Vial] 2 units SQ HS units 12/19/19 Insulin (Levemir) [Levemir Vial] 6 units SQ AM units 12/19/19 Valsartan [Diovan] 40 mg PO DAILY 30 Days #30 tablet 12/19/19 Cefuroxime Axetil [Ceftin -] 500 mg PO Q12H 7 Days #14 tablet 12/23/19 Escitalopram Oxalate [Lexapro -] 5 mg PO DAILY tablet 12/23/19 Insulin Sliding Scale [Novolog Vial Sliding Scale -] 1 vial SQ Q6HPO units 12/23/19 Polyethylene Glycol 3350 [Miralax 119 gm Btl -] 17 gm PO DAILY PRN 30 Days bottle 12/23/19 Rosuvastatin [Crestor -] 5 mg PO HS #30 tablet 12/23/19 oxyCODONE HCL [Roxicodone -] 2.5 mg PO Q4H PRN tablet 12/23/19 This patient is new to me today: No Emergency Visit: Yes ED Registration Date: 11/30/19 Care time: The patient presented to the Emergency Department on the above date and was hospitalized for further evaluation of their emergent condition. Critical Care patient: No - Discharge Referral Referred to [facility] Med [facility].C[facility] Yes Physician Referral: Vikash Aguilera MD ([facility]) ATTENDING PHYSICIAN STATEMENT I saw and evaluated the patient. I reviewed the resident's note and discussed the case with the resident. I agree with the resident's findings and plan as documented. SUBJECTIVE: OBJECTIVE: ASSESSMENT AND PLAN:
== END 2019-12-23 16:57 | DRG 480 ==
LOC: JER 07:06 → JERBED 10:53 → J4W 17:36 → J6S 12-13 10:07
PROVIDERS: ADMIT Internal Medicine; ATTEND Internal Medicine
PROC: 0QS706Z Reposition Left Upper Femur with Intramedullary Internal Fixation Device, Open Approach (ICD-10-PCS; principal; 2019-12-01 13:00)
PROC: 30233N1 Transfusion of Nonautologous Red Blood Cells into Peripheral Vein, Percutaneous Approach (ICD-10-PCS; 2019-12-12)
DX: S72.092A Other fracture of head and neck of left femur, initial encounter for closed fracture (principal); J69.0 Pneumonitis due to inhalation of food and vomit; G93.41 Metabolic encephalopathy; N17.9 Acute kidney failure, unspecified; E87.0 Hyperosmolality and hypernatremia; I13.0 Hypertensive heart and chronic kidney disease with heart failure and stage 1 through stage 4 chronic kidney disease, or unspecified chronic kidney disease; I50.22 Chronic systolic (congestive) heart failure; E78.5 Hyperlipidemia, unspecified; E11.22 Type 2 diabetes mellitus with diabetic chronic kidney disease; N18.3 Chronic kidney disease, stage 3 (moderate); R26.81 Unsteadiness on feet; I25.5 Ischemic cardiomyopathy; K59.09 Other constipation; J44.9 Chronic obstructive pulmonary disease, unspecified; M54.5 Low back pain; K22.0 Achalasia of cardia; E86.0 Dehydration; E11.51 Type 2 diabetes mellitus with diabetic peripheral angiopathy without gangrene; I25.119 Atherosclerotic heart disease of native coronary artery with unspecified angina pectoris; D64.9 Anemia, unspecified; I95.1 Orthostatic hypotension; M10.9 Gout, unspecified; R41.0 Disorientation, unspecified; R26.89 Other abnormalities of gait and mobility; N40.0 Benign prostatic hyperplasia without lower urinary tract symptoms; I44.7 Left bundle-branch block, unspecified; R94.5 Abnormal results of liver function studies; E83.39 Other disorders of phosphorus metabolism; R29.6 Repeated falls; Z95.1 Presence of aortocoronary bypass graft; W18.39XA Other fall on same level, initial encounter; Y92.89 Other specified places as the place of occurrence of the external cause; Z95.5 Presence of coronary angioplasty implant and graft; Z87.11 Personal history of peptic ulcer disease; I25.2 Old myocardial infarction; Z87.442 Personal history of urinary calculi; Z95.810 Presence of automatic (implantable) cardiac defibrillator
CPT/HCPCS: 36415; 36430; 70450-TC; 71045-TC-FY; 72125-TC; 73070-TC-LT-FY; 73110-TC-LT-FY; 73130-TC-LT-FY; 73523-TC-FY; 74230-TC-FY; 76000-TC-FY; 76705-TC; 76775-TC; 80048; 80053; 80074; 81003; 82140; 82550; 82607; 82728; 82746; 82962; 82977; 83540; 83550; 83605; 83735; 84100; 84153; 84484; 85025; 85027; 85610; 85730; 86704; 86706; 86707; 86708; 86709; 86850; 86900; 86901; 86922; 87040; 87077; 87086; 87340; 92611-GN; 93005; 93010; 93306-TC; 93880-TC; 93970-TC; 94010; 94760; 94761; 97116-GP; 97162-GP; 99285-25; J0131; J1644; P9058; U0003

== ENCOUNTER 2020-04-03 21:31 | Inpatient (IN) | payer OTHER, MEDICARE ==
[2020-04-03 22:11] VITALS: BMI 27.3
[2020-04-03] MEDS ORDERED: ACETAMINOPHEN 1000 MG/100 ML VIAL (NON FORMULARY) IVPB ONE (22:17)
[2020-04-03] MEDS ORDERED: ACETAMINOPHEN INJECTION 100 ML IVPB ONE (22:20)
[2020-04-03 22:28] LABS: BASO % 0.6 % (0-2.0); EOS % 4.2 % (0-4.5); HEMATOCRIT 38.9 % (35.4-49); HEMOGLOBIN 12.7 GM/dL (11.7-16.9); LYMPH % 21.4 % (8-40); MCHC 32.6 g/dl (32.0-35.9); MEAN CELL VOLUME 76.9 fl (80-96); MEAN PLT VOLUME 8.1 fl (7.5-11.1); MONO % 5.9 % (3.8-10.2); NEUT % 67.9 % (42.8-82.8); PLATELET COUNT 359 K/MM3 (134-434); RBC 5.07 M/mm3 (4.00-5.60); RDW 19.2 % (11.9-15.9); WHITE BLOOD COUNT 14.9 K/mm3 (4.0-10.0)
[2020-04-03 22:33] LABS: VENOUS BASE EXCESS -6.4 mmol/L (-2-2); VENOUS O2 SATURATION 44.8 % (70-80); VENOUS PCO2 45.1 mmHg (38-52); VENOUS PH 7.273 (7.310-7.410)
[2020-04-03 22:38] LABS: INR 1.03 (0.83-1.09); PROTHROMBIN TIME (PATIENT) 12.4 SEC (9.7-13.0)
[2020-04-03 22:47] LABS: CHLORIDE 111 mmol/L (98-107); POTASSIUM 4.3 mmol/L (3.5-5.1); SODIUM 139 mmol/L (136-145)
[2020-04-03 22:49] LABS: ALBUMIN 3.4 g/dl (3.4-5.0); ANION GAP 7 MMOL/L (8-16); CALCIUM 9.7 mg/dL (8.5-10.1); CO2 21 mmol/L (21-32); GLUCOSE,RANDOM 99 mg/dL (74-106)
[2020-04-03 22:50] LABS: BLOOD UREA NITROGEN 35.7 mg/dL (7-18); MAGNESIUM 1.9 mg/dL (1.8-2.4)
[2020-04-03 22:52] LABS: SGPT/ALT 33 U/L (13-61)
[2020-04-03 22:53] LABS: CREATININE 1.1 mg/dL (0.55-1.3); SGOT/AST 30 U/L (15-37)
[2020-04-03 22:54] LABS: BILIRUBIN,TOTAL 0.3 mg/dL (0.2-1); TOT PROT 8.2 g/dl (6.4-8.2)
[2020-04-03 22:55] LABS: ALK PHOS 117 U/L (45-117)
[2020-04-03 22:57] LABS: N-TERMINAL BNP 2137.2 pg/ml (5-450)
[2020-04-03] MEDS ORDERED: VANCOMYCIN 1 GM in D5W (PRE-DOCKED) 1,000 MG/250 ML IVPB ONE (23:23)
[2020-04-03] MEDS ORDERED: PIPERACILLIN/TAZOB 4.5 GM 4.5 GM in DEXTROSE 5%-WATER 100 ML IVPB ONE (23:27)
[2020-04-03] MEDS ORDERED: VANCOMYCIN 1 GRAM (PRE-DOCKED) 1,000 MG/250 ML BAG IVPB ONE (23:36)
[2020-04-03] MEDS ORDERED: PIPERACILLIN/TAZOB 4.5 GM 4.5 GM/100 ML BAG IVPB ONE (23:36)
[2020-04-04] MEDS ORDERED: DEXTROSE 50%-WATER - 25 GM/50 ML VIAL IVPUSH ONE (00:01)
[2020-04-04] MEDS ORDERED: SODIUM CHLORIDE 0.9% 500 ML INFUS.BAG IV ONE (00:34)
[2020-04-04] MEDS ORDERED: DEXTROSE 50%-WATER 25 GM/50 ML DISP.SYRIN ONE (00:46)
[2020-04-04] MEDS ORDERED: LIDOCAINE 5% TOPICAL PATCH TP ONE (01:54)
[2020-04-04] MEDS ORDERED: LIDOCAINE 5% TOPICAL PATCH ONE (01:59)
[2020-04-04] MEDS ORDERED: oxyCODONE HCL 5 MG TABLET PO ONE (02:37)
[2020-04-04] MEDS ORDERED: ENOXAPARIN NA (PORCINE) 80 MG/0.8 ML DISP.SYRIN SQ ONE ×2 (03:20→14:48)
[2020-04-04] MEDS ORDERED: ALBUTEROL SO4 HFA INHALER IH PRN (05:11)
[2020-04-04] MEDS ORDERED: DOCUSATE SODIUM 100 MG CAPSULE (FP) PO ONE ×3 (05:11→09:30)
[2020-04-04 05:12] LABS: EPI CELLS 14 /uL (0-25.1); HYALINE CASTS 17 /uL (0-3.1); URINE APPEARANCE TURBID; URINE BACTERIA 23 /uL (0-1359); URINE BILIRUBIN NEGATIVE (NEGATIVE); URINE COLOR YELLOW; URINE GLUCOSE (UA) NEGATIVE (NEGATIVE); URINE KETONE NEGATIVE (NEGATIVE); URINE LEUK ESTERASE 3+ (NEGATIVE); URINE NITRITE NEGATIVE (NEGATIVE); URINE PROTEIN 1+ (NEGATIVE); URINE RBC 60 /uL (0-23.9); URINE UROBILINOGEN 0.2 mg/dL (0.2-1.0); URINE WBC 4271 /uL (0-25.8)
[2020-04-04 06:39] LABS: YEAST 13 (NEGATIVE)
[2020-04-04 07:02] LABS: HEMOGLOBIN 12.1 GM/dL (11.7-16.9); MCH 24.6 pg (25.7-33.7); MCHC 31.9 g/dl (32.0-35.9); PLATELET COUNT 248 K/MM3 (134-434); RBC 4.94 M/mm3 (4.00-5.60); RDW 18.8 % (11.9-15.9); WHITE BLOOD COUNT 14.5 K/mm3 (4.0-10.0)
[2020-04-04 07:05] LABS: INR 1.11 (0.83-1.09); PROTHROMBIN TIME (PATIENT) 13.4 SEC (9.7-13.0)
[2020-04-04 07:08] LABS: ACTIVATED PTT 37.4 SECONDS (25.2-36.5)
[2020-04-04 07:13] LABS: CHLORIDE 108 mmol/L (98-107); POTASSIUM 4.7 mmol/L (3.5-5.1); SODIUM 138 mmol/L (136-145)
[2020-04-04 07:17] LABS: ANION GAP 11 MMOL/L (8-16); BLOOD UREA NITROGEN 48.6 mg/dL (7-18); CO2 19 mmol/L (21-32); GLUCOSE,RANDOM 220 mg/dL (74-106); MAGNESIUM 1.8 mg/dL (1.8-2.4)
[2020-04-04 07:20] LABS: CREATININE 1.5 mg/dL (0.55-1.3); PHOSPHOROUS 3.8 mg/dL (2.5-4.9); SGOT/AST 46 U/L (15-37); SGPT/ALT 43 U/L (13-61)
[2020-04-04 07:21] LABS: TOT PROT 7.4 g/dl (6.4-8.2)
[2020-04-04 07:23] LABS: ALK PHOS 105 U/L (45-117)
[2020-04-04] MEDS ORDERED: ASCORBIC ACID 500 MG TABLET (FP) ONE (09:30)
[2020-04-04] MEDS ORDERED: PANTOPRAZOLE 20 MG TABLET PO ONE (09:30)
[2020-04-04] MEDS ORDERED: CLOPIDOGREL BISULFATE 75 MG TABLET (FP) ONE (09:30)
[2020-04-04] MEDS ORDERED: CEFTRIAXONE 1 GM/50 ML BAG ONE (09:31)
[2020-04-04] MEDS: CLOPIDOGREL BISULFATE 75 MG TABLET (FP) PO SCH ×2 (09:38→15:00)
[2020-04-04] MEDS: PANTOPRAZOLE 40 MG TABLET PO SCH (09:38)
[2020-04-04] MEDS: CHOLECALCIFEROL (VIT D3) 1,000 UNIT (25 MCG) TABLET PO SCH (09:39)
[2020-04-04] MEDS: ASCORBIC ACID 250 MG TABLET (FP) PO SCH ×2 (09:39→22:21)
[2020-04-04] MEDS ORDERED: CEFTRIAXONE 1 GM in DEXTROSE 5%-WATER - 50 ML IVPB SCH (10:00)
[2020-04-04] MEDS ORDERED: ACETAMINOPHEN INJECTION 100 ML IVPB ONE (12:11)
[2020-04-04] MEDS: BUDESONIDE/FORMETEROL FUMARATE 160/4.5 mcg INHALER IH SCH ×2 (12:12→22:21)
[2020-04-04] MEDS: ACETAMINOPHEN 1000 MG/100 ML VIAL (NON FORMULARY) IVPB PRN (12:16)
[2020-04-04] MEDS ORDERED: VANCOMYCIN 1 GRAM (PRE-DOCKED) 1,000 MG/250 ML BAG IVPB ONE (14:47)
[2020-04-04] MEDS: VANCOMYCIN 1 GRAM (PRE-DOCKED) 1,000 MG/250 ML BAG IVPB SCH (14:53)
[2020-04-04] MEDS ORDERED: ENOXAPARIN NA (PORCINE) 80 MG/0.8 ML DISP.SYRIN SQ SCH (15:00)
[2020-04-04] MEDS: INSULIN SLIDING SCALE (NOVOLOG) 1 VIAL SQ SCH ×2 (17:50→21:39)
[2020-04-04] MEDS ORDERED: PIPERACILLIN/TAZOBACTAM 3.375 GM VIAL IVPB ONE (18:29)
[2020-04-04] MEDS ORDERED: DEXTROSE 5%-WATER - 50 ML IVPB ONE (18:30)
[2020-04-04] MEDS: PIPERACILLIN/TAZOB 3.375 GM 3.375 GM in DEXTROSE 5%-WATER - 50 ML IVPB SCH (18:32)
[2020-04-04] MEDS ORDERED: PT OWN MED DRAWER 7, Y5N ONE (21:21)
[2020-04-04] MEDS: LIDOCAINE PATCH REMOVAL MC SCH (21:38)
[2020-04-04] MEDS: ROSUVASTATIN CA 20 MG TABLET (FP) PO SCH (21:38)
[2020-04-04] MEDS: MELATONIN 5 MG TABLETS PO SCH (21:38)
[2020-04-04] MEDS: LATANOPROST 0.005% OPHTH SOLN 2.5ML BOTTLE OU SCH (22:21)
[2020-04-05] MEDS ORDERED: PIPERACILLIN/TAZOBACTAM 3.375 GM VIAL IVPB ONE ×3 (02:04→17:33)
[2020-04-05] MEDS ORDERED: DEXTROSE 5%-WATER - 50 ML IVPB ONE ×3 (02:04→17:33)
[2020-04-05] MEDS: PIPERACILLIN/TAZOB 3.375 GM 3.375 GM in DEXTROSE 5%-WATER - 50 ML IVPB SCH ×3 (02:17→17:36)
[2020-04-05] MEDS: ACETAMINOPHEN 1000 MG/100 ML VIAL (NON FORMULARY) IVPB PRN (06:38)
[2020-04-05] MEDS: INSULIN SLIDING SCALE (NOVOLOG) 1 VIAL SQ SCH ×4 (06:38→21:36)
[2020-04-05 08:31] LABS: BASO % 0.1 % (0-2.0); HEMATOCRIT 30.7 % (35.4-49); HEMOGLOBIN 9.7 GM/dL (11.7-16.9); LYMPH % 6.4 % (8-40); MCH 24.5 pg (25.7-33.7); MCHC 31.7 g/dl (32.0-35.9); MEAN CELL VOLUME 77.3 fl (80-96); MEAN PLT VOLUME 8.2 fl (7.5-11.1); MONO % 4.6 % (3.8-10.2); NEUT % 88.9 % (42.8-82.8); PLATELET COUNT 193 K/MM3 (134-434); RBC 3.97 M/mm3 (4.00-5.60); RDW 19.1 % (11.9-15.9); WHITE BLOOD COUNT 12.7 K/mm3 (4.0-10.0)
[2020-04-05 09:22] LABS: ALBUMIN 2.5 g/dl (3.4-5.0); BILIRUBIN,TOTAL 0.8 mg/dL (0.2-1); BLOOD UREA NITROGEN 65.7 mg/dL (7-18); CALCIUM 8.6 mg/dL (8.5-10.1); CREATININE 2.5 mg/dL (0.55-1.3); MAGNESIUM 1.9 mg/dL (1.8-2.4); POTASSIUM 4.7 mmol/L (3.5-5.1); TOT PROT 6.4 g/dl (6.4-8.2)
[2020-04-05] MEDS ORDERED: PT OWN MED DRAWER 7, Y5N ONE (10:21)
[2020-04-05] MEDS: PANTOPRAZOLE 40 MG TABLET PO SCH (10:32)
[2020-04-05] MEDS: CLOPIDOGREL BISULFATE 75 MG TABLET (FP) PO SCH (10:32)
[2020-04-05] MEDS: ENOXAPARIN NA (PORCINE) 40 MG/0.4 ML DISP.SYRIN SQ SCH (10:32)
[2020-04-05] MEDS: BUDESONIDE/FORMETEROL FUMARATE 160/4.5 mcg INHALER IH SCH ×2 (10:33→21:33)
[2020-04-05] MEDS: CHOLECALCIFEROL (VIT D3) 1,000 UNIT (25 MCG) TABLET PO SCH (10:33)
[2020-04-05] MEDS: ASCORBIC ACID 250 MG TABLET (FP) PO SCH ×2 (10:34→21:33)
[2020-04-05] MEDS: VANCOMYCIN 1 GRAM (PRE-DOCKED) 1,000 MG/250 ML BAG IVPB SCH (12:51)
[2020-04-05] MEDS: ROSUVASTATIN CA 20 MG TABLET (FP) PO SCH (21:33)
[2020-04-05] MEDS: LIDOCAINE PATCH REMOVAL MC SCH (21:33)
[2020-04-05] MEDS: LATANOPROST 0.005% OPHTH SOLN 2.5ML BOTTLE OU SCH (21:33)
[2020-04-05] MEDS: MELATONIN 5 MG TABLETS PO SCH (21:33)
[2020-04-05] MEDS: oxyCODONE HCL 5 MG TABLET PO PRN (21:34)
[2020-04-06] MEDS ORDERED: PIPERACILLIN/TAZOBACTAM 3.375 GM VIAL IVPB ONE ×3 (00:46→17:16)
[2020-04-06] MEDS ORDERED: DEXTROSE 5%-WATER - 50 ML IVPB ONE ×3 (00:46→17:16)
[2020-04-06] MEDS: PIPERACILLIN/TAZOB 3.375 GM 3.375 GM in DEXTROSE 5%-WATER - 50 ML IVPB SCH ×3 (01:01→17:31)
[2020-04-06] MEDS: INSULIN SLIDING SCALE (NOVOLOG) 1 VIAL SQ SCH ×4 (06:01→21:29)
[2020-04-06 07:29] LABS: BASO % 0.2 % (0-2.0); EOS % 0.3 % (0-4.5); HEMOGLOBIN 8.8 GM/dL (11.7-16.9); MCH 24.8 pg (25.7-33.7); MCHC 32.6 g/dl (32.0-35.9); MEAN CELL VOLUME 76.1 fl (80-96); MEAN PLT VOLUME 8.3 fl (7.5-11.1); MONO % 5.2 % (3.8-10.2); NEUT % 85.3 % (42.8-82.8); PLATELET COUNT 189 K/MM3 (134-434); RBC 3.55 M/mm3 (4.00-5.60); RDW 19.3 % (11.9-15.9); WHITE BLOOD COUNT 8.3 K/mm3 (4.0-10.0)
[2020-04-06] MEDS ORDERED: AMINO ACIDS 4.25%/D5W 1,000 ML IV SCH (07:30)
[2020-04-06 07:42] LABS: POTASSIUM 4.9 mmol/L (3.5-5.1)
[2020-04-06 07:43] LABS: CALCIUM 8.5 mg/dL (8.5-10.1)
[2020-04-06 07:44] LABS: ALBUMIN 2.3 g/dl (3.4-5.0); BLOOD UREA NITROGEN 80.1 mg/dL (7-18); MAGNESIUM 2.1 mg/dL (1.8-2.4)
[2020-04-06 07:47] LABS: CREATININE 3.2 mg/dL (0.55-1.3)
[2020-04-06 07:49] LABS: BILIRUBIN,TOTAL 0.6 mg/dL (0.2-1); TOT PROT 6.3 g/dl (6.4-8.2)
[2020-04-06] MEDS ORDERED: PT OWN MED DRAWER 7, Y5N ONE ×3 (12:31→21:44)
[2020-04-06] MEDS: CLOPIDOGREL BISULFATE 75 MG TABLET (FP) PO SCH (12:40)
[2020-04-06] MEDS: CHOLECALCIFEROL (VIT D3) 1,000 UNIT (25 MCG) TABLET PO SCH (12:41)
[2020-04-06] MEDS: ASCORBIC ACID 250 MG TABLET (FP) PO SCH ×2 (12:41→21:45)
[2020-04-06] MEDS: ENOXAPARIN NA (PORCINE) 40 MG/0.4 ML DISP.SYRIN SQ SCH (12:42)
[2020-04-06] MEDS: BUDESONIDE/FORMETEROL FUMARATE 160/4.5 mcg INHALER IH SCH ×2 (12:44→21:29)
[2020-04-06] MEDS: PANTOPRAZOLE 40 MG TABLET PO SCH (12:47)
[2020-04-06] MEDS: oxyCODONE HCL 5 MG TABLET PO PRN ×2 (13:57→23:15)
[2020-04-06] MEDS ORDERED: SODIUM CHLORIDE 0.45% 1,000 ML IV SCH (16:45)
[2020-04-06] MEDS: AMINO ACIDS 4.25%/D5W 1,000 ML IV SCH (17:32)
[2020-04-06] MEDS: ROSUVASTATIN CA 20 MG TABLET (FP) PO SCH (21:28)
[2020-04-06] MEDS: MELATONIN 5 MG TABLETS PO SCH (21:28)
[2020-04-06] MEDS: LIDOCAINE PATCH REMOVAL MC SCH (21:29)
[2020-04-06] MEDS: LATANOPROST 0.005% OPHTH SOLN 2.5ML BOTTLE OU SCH (21:29)
[2020-04-06] MEDS: LEVALBUTEROL HCL 0.63 MG/3 ML VIAL.NEB. IH PRN (21:50)
[2020-04-07 01:23] LABS: EPI CELLS 6 /uL (0-25.1); HYALINE CASTS 3 /uL (0-3.1); URINE APPEARANCE CLOUDY; URINE BILIRUBIN NEGATIVE (NEGATIVE); URINE COLOR YELLOW; URINE GLUCOSE (UA) NEGATIVE (NEGATIVE); URINE KETONE NEGATIVE (NEGATIVE); URINE LEUK ESTERASE 2+ (NEGATIVE); URINE NITRITE NEGATIVE (NEGATIVE); URINE PROTEIN 1+ (NEGATIVE); URINE UROBILINOGEN 0.2 mg/dL (0.2-1.0); URINE WBC 549 /uL (0-25.8); YEAST REVIEW (NEGATIVE)
[2020-04-07] MEDS ORDERED: DEXTROSE 5%-WATER - 50 ML IVPB ONE ×3 (01:27→17:24)
[2020-04-07] MEDS ORDERED: PIPERACILLIN/TAZOBACTAM 3.375 GM VIAL IVPB ONE ×3 (01:27→17:24)
[2020-04-07 01:29] LABS: URINE BACTERIA 12.4 /uL (0-1359); URINE RBC 35.1 /uL (0-23.9)
[2020-04-07] MEDS: PIPERACILLIN/TAZOB 3.375 GM 3.375 GM in DEXTROSE 5%-WATER - 50 ML IVPB SCH ×3 (02:15→17:27)
[2020-04-07] MEDS: INSULIN SLIDING SCALE (NOVOLOG) 1 VIAL SQ SCH ×4 (06:57→22:02)
[2020-04-07] MEDS ORDERED: PT OWN MED DRAWER 7, Y5N ONE ×2 (09:37→21:53)
[2020-04-07] MEDS: CHOLECALCIFEROL (VIT D3) 1,000 UNIT (25 MCG) TABLET PO SCH (09:42)
[2020-04-07] MEDS: CLOPIDOGREL BISULFATE 75 MG TABLET (FP) PO SCH (09:42)
[2020-04-07] MEDS: AMINO ACIDS 4.25%/D5W 1,000 ML IV SCH (09:43)
[2020-04-07] MEDS: PANTOPRAZOLE 40 MG TABLET PO SCH (09:43)
[2020-04-07] MEDS: ENOXAPARIN NA (PORCINE) 40 MG/0.4 ML DISP.SYRIN SQ SCH (09:43)
[2020-04-07] MEDS: ASCORBIC ACID 250 MG TABLET (FP) PO SCH ×2 (09:45→22:01)
[2020-04-07] MEDS: BUDESONIDE/FORMETEROL FUMARATE 160/4.5 mcg INHALER IH SCH ×2 (09:45→22:02)
[2020-04-07 09:57] LABS: BASO % 0.3 % (0-2.0); EOS % 1.3 % (0-4.5); HEMATOCRIT 29.3 % (35.4-49); HEMOGLOBIN 9.4 GM/dL (11.7-16.9); LYMPH % 8.9 % (8-40); MCH 25.1 pg (25.7-33.7); MCHC 32.2 g/dl (32.0-35.9); MEAN PLT VOLUME 8.3 fl (7.5-11.1); MONO % 4.3 % (3.8-10.2); NEUT % 85.2 % (42.8-82.8); PLATELET COUNT 200 K/MM3 (134-434); RBC 3.75 M/mm3 (4.00-5.60); RDW 19.3 % (11.9-15.9); WHITE BLOOD COUNT 6.8 K/mm3 (4.0-10.0)
[2020-04-07 10:15] LABS: POTASSIUM 4.2 mmol/L (3.5-5.1)
[2020-04-07 10:17] LABS: ALBUMIN 2.4 g/dl (3.4-5.0); CALCIUM 8.6 mg/dL (8.5-10.1)
[2020-04-07 10:18] LABS: BLOOD UREA NITROGEN 96.1 mg/dL (7-18); MAGNESIUM 2.3 mg/dL (1.8-2.4)
[2020-04-07 10:21] LABS: CREATININE 3.8 mg/dL (0.55-1.3)
[2020-04-07 10:22] LABS: TOT PROT 6.9 g/dl (6.4-8.2)
[2020-04-07 10:35] LABS: BILIRUBIN,TOTAL 0.3 mg/dL (0.2-1)
[2020-04-07] MEDS: oxyCODONE HCL 5 MG TABLET PO PRN ×2 (11:13→19:55)
[2020-04-07] MEDS: LACTATED RINGERS SOLUTION 1,000 ML/1,000 ML INFUS.BAG IV SCH (14:11)
[2020-04-07] MEDS: TETRAHYDROZOLINE HCL EYE DROPS OS SCH ×3 (14:13→22:07)
[2020-04-07] MEDS: ROSUVASTATIN CA 20 MG TABLET (FP) PO SCH (22:01)
[2020-04-07] MEDS: MELATONIN 5 MG TABLETS PO SCH (22:01)
[2020-04-07] MEDS: HEPARIN NA (PORCINE) 5,000 UNITS/ML 1ML VIAL SQ SCH (22:02)
[2020-04-07] MEDS: LATANOPROST 0.005% OPHTH SOLN 2.5ML BOTTLE OU SCH (22:04)
[2020-04-07] MEDS: LIDOCAINE PATCH REMOVAL MC SCH (23:05)
[2020-04-08] MEDS ORDERED: PIPERACILLIN/TAZOBACTAM 3.375 GM VIAL IVPB ONE ×3 (01:09→16:52)
[2020-04-08] MEDS ORDERED: DEXTROSE 5%-WATER - 50 ML IVPB ONE ×3 (01:09→16:52)
[2020-04-08] MEDS: LACTATED RINGERS SOLUTION 1,000 ML/1,000 ML INFUS.BAG IV SCH ×2 (01:22→14:49)
[2020-04-08] MEDS: PIPERACILLIN/TAZOB 3.375 GM 3.375 GM in DEXTROSE 5%-WATER - 50 ML IVPB SCH ×3 (01:22→17:29)
[2020-04-08] MEDS ORDERED: oxyCODONE HCL 5 MG TABLET PO ONE (02:29)
[2020-04-08] MEDS: ACETAMINOPHEN 500 MG TABLET (FP) PO PRN ×3 (02:50→21:31)
[2020-04-08] MEDS: INSULIN SLIDING SCALE (NOVOLOG) 1 VIAL SQ SCH ×4 (06:32→23:39)
[2020-04-08 07:36] LABS: BASO % 0.5 % (0-2.0); EOS % 2.3 % (0-4.5); HEMATOCRIT 28.3 % (35.4-49); LYMPH % 16.7 % (8-40); MCH 24.5 pg (25.7-33.7); MCHC 31.8 g/dl (32.0-35.9); MEAN CELL VOLUME 76.9 fl (80-96); MEAN PLT VOLUME 8.1 fl (7.5-11.1); MONO % 5.5 % (3.8-10.2); PLATELET COUNT 181 K/MM3 (134-434); RBC 3.68 M/mm3 (4.00-5.60); RDW 19.4 % (11.9-15.9)
[2020-04-08 07:57] LABS: POTASSIUM 3.9 mmol/L (3.5-5.1)
[2020-04-08 08:01] LABS: ALBUMIN 2.3 g/dl (3.4-5.0); BLOOD UREA NITROGEN 96.6 mg/dL (7-18); CALCIUM 8.5 mg/dL (8.5-10.1)
[2020-04-08 08:04] LABS: CREATININE 3.7 mg/dL (0.55-1.3)
[2020-04-08 08:05] LABS: PHOSPHOROUS 5.2 mg/dL (2.5-4.9)
[2020-04-08 08:06] LABS: BILIRUBIN,TOTAL 0.9 mg/dL (0.2-1); TOT PROT 6.6 g/dl (6.4-8.2)
[2020-04-08] MEDS: BUDESONIDE/FORMETEROL FUMARATE 160/4.5 mcg INHALER IH SCH ×2 (09:43→23:39)
[2020-04-08] MEDS: TETRAHYDROZOLINE HCL EYE DROPS OS SCH ×4 (09:44→23:39)
[2020-04-08] MEDS: CHOLECALCIFEROL (VIT D3) 1,000 UNIT (25 MCG) TABLET PO SCH (09:51)
[2020-04-08] MEDS: CLOPIDOGREL BISULFATE 75 MG TABLET (FP) PO SCH (09:51)
[2020-04-08] MEDS: HEPARIN NA (PORCINE) 5,000 UNITS/ML 1ML VIAL SQ SCH ×2 (09:51→23:39)
[2020-04-08] MEDS: PANTOPRAZOLE 40 MG TABLET PO SCH (09:51)
[2020-04-08] MEDS: ASCORBIC ACID 250 MG TABLET (FP) PO SCH ×2 (09:52→21:31)
[2020-04-08] MEDS: oxyCODONE HCL 5 MG TABLET PO PRN ×2 (10:39→17:33)
[2020-04-08] MEDS: LEVALBUTEROL HCL 0.63 MG/3 ML VIAL.NEB. IH PRN (20:29)
[2020-04-08] MEDS ORDERED: PT OWN MED DRAWER 7, Y5N ONE (21:29)
[2020-04-08] MEDS: MELATONIN 5 MG TABLETS PO SCH (21:30)
[2020-04-08] MEDS: ROSUVASTATIN CA 20 MG TABLET (FP) PO SCH (21:31)
[2020-04-08] MEDS: LIDOCAINE PATCH REMOVAL MC SCH (23:39)
[2020-04-08] MEDS: LATANOPROST 0.005% OPHTH SOLN 2.5ML BOTTLE OU SCH (23:39)
[2020-04-09] MEDS ORDERED: PIPERACILLIN/TAZOBACTAM 3.375 GM VIAL IVPB ONE ×3 (01:06→17:41)
[2020-04-09] MEDS ORDERED: DEXTROSE 5%-WATER - 50 ML IVPB ONE ×3 (01:06→17:41)
[2020-04-09] MEDS: PIPERACILLIN/TAZOB 3.375 GM 3.375 GM in DEXTROSE 5%-WATER - 50 ML IVPB SCH ×3 (01:21→17:57)
[2020-04-09] MEDS: ACETAMINOPHEN 500 MG TABLET (FP) PO PRN (04:20)
[2020-04-09] MEDS: INSULIN SLIDING SCALE (NOVOLOG) 1 VIAL SQ SCH ×4 (06:24→21:18)
[2020-04-09 07:15] LABS: BASO % 0.7 % (0-2.0); EOS % 3.6 % (0-4.5); HEMATOCRIT 29.2 % (35.4-49); HEMOGLOBIN 9.3 GM/dL (11.7-16.9); MCH 24.6 pg (25.7-33.7); MCHC 31.9 g/dl (32.0-35.9); MEAN CELL VOLUME 77.2 fl (80-96); MEAN PLT VOLUME 8.1 fl (7.5-11.1); MONO % 7.2 % (3.8-10.2); NEUT % 75.5 % (42.8-82.8); PLATELET COUNT 187 K/MM3 (134-434); RBC 3.79 M/mm3 (4.00-5.60); RDW 18.7 % (11.9-15.9); WHITE BLOOD COUNT 5.3 K/mm3 (4.0-10.0)
[2020-04-09 07:42] LABS: POTASSIUM 4.3 mmol/L (3.5-5.1)
[2020-04-09 08:00] LABS: ALBUMIN 2.2 g/dl (3.4-5.0)
[2020-04-09 08:01] LABS: BLOOD UREA NITROGEN 78.5 mg/dL (7-18); CALCIUM 8.6 mg/dL (8.5-10.1); MAGNESIUM 2.4 mg/dL (1.8-2.4)
[2020-04-09 08:03] LABS: CREATININE 2.8 mg/dL (0.55-1.3); PHOSPHOROUS 4.2 mg/dL (2.5-4.9)
[2020-04-09 08:05] LABS: BILIRUBIN,TOTAL 0.4 mg/dL (0.2-1); TOT PROT 6.5 g/dl (6.4-8.2)
[2020-04-09] MEDS ORDERED: ACETAMINOPHEN 1000 MG/100 ML VIAL (NON FORMULARY) IVPB PRN (09:24)
[2020-04-09] MEDS: BUDESONIDE/FORMETEROL FUMARATE 160/4.5 mcg INHALER IH SCH ×2 (10:15→21:15)
[2020-04-09] MEDS: TETRAHYDROZOLINE HCL EYE DROPS OS SCH ×4 (10:15→21:15)
[2020-04-09] MEDS: CLOPIDOGREL BISULFATE 75 MG TABLET (FP) PO SCH (10:16)
[2020-04-09] MEDS: CHOLECALCIFEROL (VIT D3) 1,000 UNIT (25 MCG) TABLET PO SCH (10:16)
[2020-04-09] MEDS: HEPARIN NA (PORCINE) 5,000 UNITS/ML 1ML VIAL SQ SCH ×2 (10:16→21:14)
[2020-04-09] MEDS: PANTOPRAZOLE 40 MG TABLET PO SCH (10:16)
[2020-04-09] MEDS: ASCORBIC ACID 250 MG TABLET (FP) PO SCH ×2 (10:16→22:30)
[2020-04-09] MEDS: LIDOCAINE 5% TOPICAL PATCH TP SCH (10:17)
[2020-04-09] MEDS: CARVEDILOL 3.125 MG TABLET (FP) PO SCH ×2 (11:41→21:14)
[2020-04-09] MEDS: LACTATED RINGERS SOLUTION 1,000 ML/1,000 ML INFUS.BAG IV SCH (11:57)
[2020-04-09] MEDS ORDERED: PT OWN MED DRAWER 7, Y5N ONE (20:58)
[2020-04-09] MEDS: MELATONIN 5 MG TABLETS PO SCH (21:14)
[2020-04-09] MEDS: ROSUVASTATIN CA 20 MG TABLET (FP) PO SCH (21:14)
[2020-04-09] MEDS: LATANOPROST 0.005% OPHTH SOLN 2.5ML BOTTLE OU SCH (21:16)
[2020-04-09] MEDS: LEVALBUTEROL HCL 0.63 MG/3 ML VIAL.NEB. IH PRN (21:44)
[2020-04-09] MEDS: LIDOCAINE PATCH REMOVAL MC SCH (23:00)
[2020-04-10] MEDS ORDERED: DEXTROSE 5%-WATER - 50 ML IVPB ONE ×3 (01:13→16:53)
[2020-04-10] MEDS ORDERED: PIPERACILLIN/TAZOBACTAM 3.375 GM VIAL IVPB ONE ×3 (01:13→16:52)
[2020-04-10] MEDS: PIPERACILLIN/TAZOB 3.375 GM 3.375 GM in DEXTROSE 5%-WATER - 50 ML IVPB SCH ×3 (01:56→17:02)
[2020-04-10] MEDS: LACTATED RINGERS SOLUTION 1,000 ML/1,000 ML INFUS.BAG IV SCH ×3 (05:28→15:46)
[2020-04-10] MEDS: INSULIN SLIDING SCALE (NOVOLOG) 1 VIAL SQ SCH ×4 (06:49→21:59)
[2020-04-10 07:08] LABS: BASO % 0.5 % (0-2.0); EOS % 2.9 % (0-4.5); HEMATOCRIT 28.2 % (35.4-49); HEMOGLOBIN 8.9 GM/dL (11.7-16.9); MCH 24.3 pg (25.7-33.7); MCHC 31.8 g/dl (32.0-35.9); MEAN CELL VOLUME 76.6 fl (80-96); MONO % 7.4 % (3.8-10.2); NEUT % 70.2 % (42.8-82.8); PLATELET COUNT 175 K/MM3 (134-434); RBC 3.68 M/mm3 (4.00-5.60); RDW 18.7 % (11.9-15.9); WHITE BLOOD COUNT 6.1 K/mm3 (4.0-10.0)
[2020-04-10 07:33] LABS: CALCIUM 8.4 mg/dL (8.5-10.1)
[2020-04-10 07:34] LABS: ALBUMIN 2.1 g/dl (3.4-5.0)
[2020-04-10 07:38] LABS: BILIRUBIN,TOTAL 0.3 mg/dL (0.2-1)
[2020-04-10 07:39] LABS: BLOOD UREA NITROGEN 49.2 mg/dL (7-18)
[2020-04-10] MEDS ORDERED: FLU VACCINE (FLULAVAL) PF 60 MCG/0.5 ML SYRINGE 2020-2021 IM ONE (08:30)
[2020-04-10] MEDS: HEPARIN NA (PORCINE) 5,000 UNITS/ML 1ML VIAL SQ SCH ×2 (10:52→21:56)
[2020-04-10] MEDS: LIDOCAINE 5% TOPICAL PATCH TP SCH (10:53)
[2020-04-10] MEDS: CHOLECALCIFEROL (VIT D3) 1,000 UNIT (25 MCG) TABLET PO SCH (10:54)
[2020-04-10] MEDS: PANTOPRAZOLE 40 MG TABLET PO SCH (10:54)
[2020-04-10] MEDS: CLOPIDOGREL BISULFATE 75 MG TABLET (FP) PO SCH (10:54)
[2020-04-10] MEDS: CARVEDILOL 3.125 MG TABLET (FP) PO SCH ×2 (10:54→21:59)
[2020-04-10] MEDS: ASCORBIC ACID 250 MG TABLET (FP) PO SCH ×2 (10:55→22:16)
[2020-04-10] MEDS: BUDESONIDE/FORMETEROL FUMARATE 160/4.5 mcg INHALER IH SCH ×2 (11:00→22:00)
[2020-04-10] MEDS: TETRAHYDROZOLINE HCL EYE DROPS OS SCH ×4 (11:01→22:00)
[2020-04-10] MEDS ORDERED: PT OWN MED DRAWER 7, Y5N ONE ×2 (13:42→22:04)
[2020-04-10] MEDS: ACETAMINOPHEN 500 MG TABLET (FP) PO PRN (21:57)
[2020-04-10] MEDS: MELATONIN 5 MG TABLETS PO SCH (21:58)
[2020-04-10] MEDS: ROSUVASTATIN CA 20 MG TABLET (FP) PO SCH (21:58)
[2020-04-10] MEDS: LIDOCAINE PATCH REMOVAL MC SCH (21:59)
[2020-04-10] MEDS: LATANOPROST 0.005% OPHTH SOLN 2.5ML BOTTLE OU SCH (22:00)
[2020-04-11] MEDS ORDERED: DEXTROSE 5%-WATER - 50 ML IVPB ONE ×3 (01:23→18:05)
[2020-04-11] MEDS ORDERED: PIPERACILLIN/TAZOBACTAM 3.375 GM VIAL IVPB ONE ×3 (01:23→18:05)
[2020-04-11] MEDS: LACTATED RINGERS SOLUTION 1,000 ML/1,000 ML INFUS.BAG IV SCH ×3 (01:39→16:44)
[2020-04-11] MEDS: PIPERACILLIN/TAZOB 3.375 GM 3.375 GM in DEXTROSE 5%-WATER - 50 ML IVPB SCH ×3 (01:39→18:07)
[2020-04-11] MEDS: ACETAMINOPHEN 500 MG TABLET (FP) PO PRN ×2 (03:09→23:43)
[2020-04-11] MEDS: INSULIN SLIDING SCALE (NOVOLOG) 1 VIAL SQ SCH ×4 (06:20→23:43)
[2020-04-11] MEDS ORDERED: INSULIN (NOVOLOG) ASPART 100 UNITS/ML 10ML VIAL ONE ×2 (06:34→13:21)
[2020-04-11] MEDS: oxyCODONE HCL 5 MG TABLET PO PRN ×2 (08:53→15:00)
[2020-04-11] MEDS ORDERED: PT OWN MED DRAWER 7, Y5N ONE ×2 (12:35→21:29)
[2020-04-11] MEDS: LIDOCAINE 5% TOPICAL PATCH TP SCH (12:41)
[2020-04-11] MEDS: TAMSULOSIN HCL 0.4 MG CAP PO SCH (12:41)
[2020-04-11] MEDS: HEPARIN NA (PORCINE) 5,000 UNITS/ML 1ML VIAL SQ SCH ×2 (12:41→21:26)
[2020-04-11] MEDS: CLOPIDOGREL BISULFATE 75 MG TABLET (FP) PO SCH (12:41)
[2020-04-11] MEDS: CARVEDILOL 3.125 MG TABLET (FP) PO SCH ×2 (12:41→21:26)
[2020-04-11] MEDS: BUDESONIDE/FORMETEROL FUMARATE 160/4.5 mcg INHALER IH SCH ×2 (12:42→21:26)
[2020-04-11] MEDS: PANTOPRAZOLE 40 MG TABLET PO SCH (12:42)
[2020-04-11] MEDS: ASCORBIC ACID 250 MG TABLET (FP) PO SCH ×2 (12:42→21:36)
[2020-04-11] MEDS: TETRAHYDROZOLINE HCL EYE DROPS OS SCH ×4 (12:42→21:27)
[2020-04-11] MEDS: CHOLECALCIFEROL (VIT D3) 1,000 UNIT (25 MCG) TABLET PO SCH (12:45)
[2020-04-11 13:45] LABS: BASO % 0.5 % (0-2.0); EOS % 2.7 % (0-4.5); HEMATOCRIT 31.8 % (35.4-49); HEMOGLOBIN 10.3 GM/dL (11.7-16.9); LYMPH % 13.4 % (8-40); MCH 24.9 pg (25.7-33.7); MCHC 32.4 g/dl (32.0-35.9); MEAN CELL VOLUME 76.8 fl (80-96); MEAN PLT VOLUME 8.4 fl (7.5-11.1); MONO % 3.2 % (3.8-10.2); NEUT % 80.2 % (42.8-82.8); PLATELET COUNT 215 K/MM3 (134-434); RBC 4.14 M/mm3 (4.00-5.60); RDW 18.6 % (11.9-15.9); WHITE BLOOD COUNT 7.1 K/mm3 (4.0-10.0)
[2020-04-11 14:10] LABS: CALCIUM 8.5 mg/dL (8.5-10.1)
[2020-04-11 14:11] LABS: ALBUMIN 2.4 g/dl (3.4-5.0); MAGNESIUM 1.7 mg/dL (1.8-2.4)
[2020-04-11 14:12] LABS: BLOOD UREA NITROGEN 28.1 mg/dL (7-18)
[2020-04-11 14:15] LABS: CREATININE 1.3 mg/dL (0.55-1.3)
[2020-04-11 14:16] LABS: BILIRUBIN,TOTAL 0.3 mg/dL (0.2-1); TOT PROT 6.6 g/dl (6.4-8.2)
[2020-04-11] MEDS: ROSUVASTATIN CA 20 MG TABLET (FP) PO SCH (21:26)
[2020-04-11] MEDS: MELATONIN 5 MG TABLETS PO SCH (21:26)
[2020-04-11] MEDS: LIDOCAINE PATCH REMOVAL MC SCH (21:26)
[2020-04-11] MEDS: LATANOPROST 0.005% OPHTH SOLN 2.5ML BOTTLE OU SCH (21:27)
[2020-04-12] MEDS ORDERED: DEXTROSE 5%-WATER - 50 ML IVPB ONE ×2 (02:46→09:15)
[2020-04-12] MEDS ORDERED: PIPERACILLIN/TAZOBACTAM 3.375 GM VIAL IVPB ONE ×2 (02:46→09:15)
[2020-04-12] MEDS: PIPERACILLIN/TAZOB 3.375 GM 3.375 GM in DEXTROSE 5%-WATER - 50 ML IVPB SCH ×2 (03:02→10:03)
[2020-04-12] MEDS ORDERED: PT OWN MED DRAWER 7, Y5N ONE ×2 (05:54→09:15)
[2020-04-12] MEDS: oxyCODONE HCL 5 MG TABLET PO PRN ×3 (06:05→21:27)
[2020-04-12] MEDS: ACETAMINOPHEN 500 MG TABLET (FP) PO PRN ×3 (06:06→21:26)
[2020-04-12] MEDS: INSULIN SLIDING SCALE (NOVOLOG) 1 VIAL SQ SCH ×4 (06:11→21:28)
[2020-04-12 06:33] LABS: BASO % 0.8 % (0-2.0); EOS % 4.4 % (0-4.5); HEMOGLOBIN 10.2 GM/dL (11.7-16.9); LYMPH % 20.1 % (8-40); MCH 24.7 pg (25.7-33.7); MCHC 32.8 g/dl (32.0-35.9); MEAN CELL VOLUME 75.4 fl (80-96); MEAN PLT VOLUME 7.9 fl (7.5-11.1); MONO % 6.1 % (3.8-10.2); NEUT % 68.6 % (42.8-82.8); PLATELET COUNT 239 K/MM3 (134-434); RBC 4.11 M/mm3 (4.00-5.60); RDW 18.5 % (11.9-15.9); WHITE BLOOD COUNT 7.8 K/mm3 (4.0-10.0)
[2020-04-12 06:40] LABS: POTASSIUM 4.1 mmol/L (3.5-5.1)
[2020-04-12 06:44] LABS: ALBUMIN 2.3 g/dl (3.4-5.0); CALCIUM 8.2 mg/dL (8.5-10.1)
[2020-04-12 06:45] LABS: BLOOD UREA NITROGEN 19.6 mg/dL (7-18); MAGNESIUM 1.5 mg/dL (1.8-2.4)
[2020-04-12 06:48] LABS: CREATININE 1.2 mg/dL (0.55-1.3)
[2020-04-12 06:49] LABS: BILIRUBIN,TOTAL 0.6 mg/dL (0.2-1); TOT PROT 6.5 g/dl (6.4-8.2)
[2020-04-12] MEDS: LIDOCAINE 5% TOPICAL PATCH TP SCH (10:03)
[2020-04-12] MEDS: ASCORBIC ACID 250 MG TABLET (FP) PO SCH ×2 (10:03→21:28)
[2020-04-12] MEDS: CARVEDILOL 3.125 MG TABLET (FP) PO SCH ×2 (10:04→21:28)
[2020-04-12] MEDS: TAMSULOSIN HCL 0.4 MG CAP PO SCH (10:04)
[2020-04-12] MEDS: PANTOPRAZOLE 40 MG TABLET PO SCH (10:04)
[2020-04-12] MEDS: CLOPIDOGREL BISULFATE 75 MG TABLET (FP) PO SCH (10:04)
[2020-04-12] MEDS: CHOLECALCIFEROL (VIT D3) 1,000 UNIT (25 MCG) TABLET PO SCH (10:04)
[2020-04-12] MEDS: HEPARIN NA (PORCINE) 5,000 UNITS/ML 1ML VIAL SQ SCH ×2 (10:05→21:25)
[2020-04-12] MEDS: BUDESONIDE/FORMETEROL FUMARATE 160/4.5 mcg INHALER IH SCH ×2 (10:26→21:30)
[2020-04-12] MEDS: TETRAHYDROZOLINE HCL EYE DROPS OS SCH ×4 (10:29→21:30)
[2020-04-12] MEDS ORDERED: TAMSULOSIN HCL 0.4 MG CAP PO SCH (10:42)
[2020-04-12] MEDS ORDERED: VALSARTAN 40 MG TABLET PO SCH (10:45)
[2020-04-12] MEDS ORDERED: INSULIN (NOVOLOG) ASPART 100 UNITS/ML 10ML VIAL ONE ×2 (12:10→21:00)
[2020-04-12] MEDS ORDERED: GABAPENTIN 300 MG CAPSULE PO ONE (15:15)
[2020-04-12] MEDS ORDERED: VALSARTAN 80 MG TABLET PO SCH (16:51)
[2020-04-12] MEDS: AMOX TR/POT CLAV 875MG/125MG TABLETS (FP) PO SCH (17:37)
[2020-04-12] MEDS: LIDOCAINE PATCH REMOVAL MC SCH (21:28)
[2020-04-12] MEDS: ROSUVASTATIN CA 20 MG TABLET (FP) PO SCH (21:28)
[2020-04-12] MEDS: MELATONIN 5 MG TABLETS PO SCH (21:28)
[2020-04-12] MEDS: LATANOPROST 0.005% OPHTH SOLN 2.5ML BOTTLE OU SCH (21:30)
[2020-04-13] MEDS: INSULIN SLIDING SCALE (NOVOLOG) 1 VIAL SQ SCH ×3 (06:00→16:59)
[2020-04-13 07:19] LABS: BASO % 0.6 % (0-2.0); HEMATOCRIT 30.4 % (35.4-49); HEMOGLOBIN 9.7 GM/dL (11.7-16.9); MCH 24.4 pg (25.7-33.7); MCHC 31.8 g/dl (32.0-35.9); MEAN CELL VOLUME 76.9 fl (80-96); MEAN PLT VOLUME 7.9 fl (7.5-11.1); MONO % 6.5 % (3.8-10.2); NEUT % 69.9 % (42.8-82.8); PLATELET COUNT 215 K/MM3 (134-434); RBC 3.95 M/mm3 (4.00-5.60); RDW 18.5 % (11.9-15.9); WHITE BLOOD COUNT 6.7 K/mm3 (4.0-10.0)
[2020-04-13 07:44] LABS: POTASSIUM 3.7 mmol/L (3.5-5.1)
[2020-04-13 07:52] LABS: ALBUMIN 2.2 g/dl (3.4-5.0); BLOOD UREA NITROGEN 17.9 mg/dL (7-18); CALCIUM 8.4 mg/dL (8.5-10.1); MAGNESIUM 1.6 mg/dL (1.8-2.4)
[2020-04-13 07:56] LABS: CREATININE 1.2 mg/dL (0.55-1.3)
[2020-04-13 07:57] LABS: BILIRUBIN,TOTAL 0.5 mg/dL (0.2-1); TOT PROT 6.2 g/dl (6.4-8.2)
[2020-04-13] MEDS ORDERED: GABAPENTIN 300 MG CAPSULE PO SCH ×2 (10:00→22:00)
[2020-04-13] MEDS: AMOX TR/POT CLAV 875MG/125MG TABLETS (FP) PO SCH ×2 (10:52→16:59)
[2020-04-13] MEDS: CARVEDILOL 3.125 MG TABLET (FP) PO SCH (10:52)
[2020-04-13] MEDS: PANTOPRAZOLE 40 MG TABLET PO SCH (10:53)
[2020-04-13] MEDS: CHOLECALCIFEROL (VIT D3) 1,000 UNIT (25 MCG) TABLET PO SCH (10:53)
[2020-04-13] MEDS: HEPARIN NA (PORCINE) 5,000 UNITS/ML 1ML VIAL SQ SCH (10:54)
[2020-04-13] MEDS: LIDOCAINE 5% TOPICAL PATCH TP SCH (10:54)
[2020-04-13] MEDS: ASCORBIC ACID 250 MG TABLET (FP) PO SCH (10:54)
[2020-04-13] MEDS: CLOPIDOGREL BISULFATE 75 MG TABLET (FP) PO SCH (10:54)
[2020-04-13] MEDS: BUDESONIDE/FORMETEROL FUMARATE 160/4.5 mcg INHALER IH SCH (10:58)
[2020-04-13] MEDS: TETRAHYDROZOLINE HCL EYE DROPS OS SCH ×3 (10:58→17:01)
[2020-04-13] MEDS ORDERED: INSULIN (NOVOLOG) ASPART 100 UNITS/ML 10ML VIAL ONE (11:07)
[2020-04-13] MEDS: ACETAMINOPHEN 500 MG TABLET (FP) PO PRN (11:47)
[2020-04-13] MEDS: oxyCODONE HCL 5 MG TABLET PO PRN (11:48)
[2020-04-13 15:14] VITALS: BP 109/43; PULSE 69
[2020-04-13 18:52] VITALS: TEMP 98.2
== END 2020-04-13 19:44 | disposition home health service (06) | DRG 177 ==
LOC: JER 21:31 → JERBED 22:05 → J4S 04-04 18:07 → J7W 04-10 19:03
PROVIDERS: ADMIT Internal Medicine; ATTEND Nurse Practitioner Acute Care
DX: J69.0 Pneumonitis due to inhalation of food and vomit (principal); J96.01 Acute respiratory failure with hypoxia; G92 Toxic encephalopathy; I50.22 Chronic systolic (congestive) heart failure; I13.0 Hypertensive heart and chronic kidney disease with heart failure and stage 1 through stage 4 chronic kidney disease, or unspecified chronic kidney disease; E11.52 Type 2 diabetes mellitus with diabetic peripheral angiopathy with gangrene; I96 Gangrene, not elsewhere classified; N39.0 Urinary tract infection, site not specified; N17.9 Acute kidney failure, unspecified; I25.10 Atherosclerotic heart disease of native coronary artery without angina pectoris; Z95.1 Presence of aortocoronary bypass graft; J44.9 Chronic obstructive pulmonary disease, unspecified; M10.9 Gout, unspecified; E11.22 Type 2 diabetes mellitus with diabetic chronic kidney disease; N18.32 Chronic kidney disease, stage 3b; N40.0 Benign prostatic hyperplasia without lower urinary tract symptoms; E11.51 Type 2 diabetes mellitus with diabetic peripheral angiopathy without gangrene; Z79.4 Long term (current) use of insulin; I25.5 Ischemic cardiomyopathy; R29.6 Repeated falls; I44.0 Atrioventricular block, first degree; H40.9 Unspecified glaucoma; K59.00 Constipation, unspecified; L89.629 Pressure ulcer of left heel, unspecified stage; L89.619 Pressure ulcer of right heel, unspecified stage; K22.0 Achalasia of cardia; I27.20 Pulmonary hypertension, unspecified; D64.9 Anemia, unspecified; E11.40 Type 2 diabetes mellitus with diabetic neuropathy, unspecified; F32.9 Major depressive disorder, single episode, unspecified; R13.10 Dysphagia, unspecified; R62.7 Adult failure to thrive; E78.00 Pure hypercholesterolemia, unspecified
CPT/HCPCS: 36415; 70450-TC; 71045-TC-FY; 71275-TC; 73701-TC-RT; 74220-TC-FY; 74230-TC-FY; 76775-TC; 80048; 80053; 80061; 81003; 82272; 82436; 82550; 82565; 82803; 82962; 83605; 83721; 83735; 83880; 84100; 84133; 84300; 84484; 85025; 85027; 85610; 85651; 85730; 86140; 87040; 87077; 87086; 87205; 92611-GN; 93005; 93010; 97116-GP; 97161-GP; 99285-25; C9803; G0008; G0480; J0131; J1644; Q2036; Q9967; U0003

== ENCOUNTER 2020-04-25 14:56 | Inpatient (IN) | payer OTHER, MEDICARE ==
[2020-04-25 16:14] LABS: BASO % 0.8 % (0-2.0); EOS % 2.8 % (0-4.5); HEMATOCRIT 31.3 % (35.4-49); HEMOGLOBIN 10.1 GM/dL (11.7-16.9); LYMPH % 17.5 % (8-40); MCH 25.3 pg (25.7-33.7); MCHC 32.2 g/dl (32.0-35.9); MEAN CELL VOLUME 78.6 fl (80-96); MEAN PLT VOLUME 7.7 fl (7.5-11.1); MONO % 5.6 % (3.8-10.2); NEUT % 73.3 % (42.8-82.8); PLATELET COUNT 294 K/MM3 (134-434); RBC 3.99 M/mm3 (4.00-5.60); RDW 18.7 % (11.9-15.9); WHITE BLOOD COUNT 7.2 K/mm3 (4.0-10.0)
[2020-04-25 16:23] LABS: INR 1.08 (0.83-1.09)
[2020-04-25 16:26] LABS: ACTIVATED PTT 31.1 SECONDS (25.2-36.5)
[2020-04-25 16:33] LABS: CHLORIDE 105 mmol/L (98-107); SODIUM 138 mmol/L (136-145)
[2020-04-25 16:35] LABS: CALCIUM 9.3 mg/dL (8.5-10.1)
[2020-04-25 16:36] LABS: ALBUMIN 2.6 g/dl (3.4-5.0); ANION GAP 9 MMOL/L (8-16); BLOOD UREA NITROGEN 27.6 mg/dL (7-18); CO2 24 mmol/L (21-32); GLUCOSE,RANDOM 188 mg/dL (74-106)
[2020-04-25 16:39] LABS: CREATININE 1.2 mg/dL (0.55-1.3); SGOT/AST 42 U/L (15-37); SGPT/ALT 31 U/L (13-61)
[2020-04-25 16:40] LABS: TOT PROT 8.1 g/dl (6.4-8.2)
[2020-04-25 16:42] LABS: ALK PHOS 113 U/L (45-117)
[2020-04-25 16:47] LABS: BILIRUBIN,TOTAL 0.2 mg/dL (0.2-1)
[2020-04-25 17:58] LABS: EPI CELLS >36 /uL (0-25.1); HYALINE CASTS 1 /uL (0-3.1); PH,URINE 5.5 (5.0-8.0); URINE APPEARANCE TURBID; URINE BILIRUBIN 2+ (NEGATIVE); URINE COLOR DK YELLOW; URINE GLUCOSE (UA) NEGATIVE (NEGATIVE); URINE KETONE NEGATIVE (NEGATIVE); URINE LEUK ESTERASE NEGATIVE (NEGATIVE); URINE NITRITE POSITIVE (NEGATIVE); URINE PROTEIN 2+ (NEGATIVE); URINE RBC 1 /uL (0-23.9); URINE UROBILINOGEN 0.2 mg/dL (0.2-1.0)
[2020-04-25] MEDS ORDERED: CEFTRIAXONE 1,000 MG in DEXTROSE 5%-WATER - 50 ML IVPB ONE (18:10)
[2020-04-25] MEDS ORDERED: CEFTRIAXONE 1 GM/50 ML BAG ONE (18:28)
[2020-04-25] MEDS ORDERED: ACETAMINOPHEN 1000 MG/100 ML BAG IVPB ONE (20:10)
[2020-04-25] MEDS ORDERED: ACETAMINOPHEN INJECTION 100 ML IVPB ONE (20:11)
[2020-04-25 20:30] LABS: URINE WBC 71 /uL (0-25.8)
[2020-04-25 20:31] LABS: URINE BACTERIA 132 /uL (0-1359)
[2020-04-25] MEDS ORDERED: SODIUM CHLORIDE 500 ML IV STA (23:38)
[2020-04-26] MEDS ORDERED: MAGNESIUM HYDROX 2400MG/30ML ORAL SUSPENSION 30 ML CUP PO ONE (00:01)
[2020-04-26] MEDS ORDERED: DOCUSATE SODIUM 100 MG CAPSULE (FP) PO PRN (00:02)
[2020-04-26] MEDS: SODIUM CHLORIDE 1,000 ML IV SCH ×2 (01:03→18:20)
[2020-04-26] MEDS ORDERED: SODIUM CHLORIDE 1,000 ML IV STA (01:18)
[2020-04-26] MEDS ORDERED: oxyCODONE HCL 5 MG TABLET PO ONE (02:15)
[2020-04-26 07:04] LABS: EOS % 3.5 % (0-4.5); HEMATOCRIT 29.7 % (35.4-49); HEMOGLOBIN 9.5 GM/dL (11.7-16.9); LYMPH % 21.6 % (8-40); MCH 24.9 pg (25.7-33.7); MEAN CELL VOLUME 77.9 fl (80-96); MEAN PLT VOLUME 7.8 fl (7.5-11.1); MONO % 6.3 % (3.8-10.2); NEUT % 67.6 % (42.8-82.8); PLATELET COUNT 256 K/MM3 (134-434); RBC 3.81 M/mm3 (4.00-5.60); RDW 18.4 % (11.9-15.9); WHITE BLOOD COUNT 5.7 K/mm3 (4.0-10.0)
[2020-04-26 07:25] LABS: ALBUMIN 2.2 g/dl (3.4-5.0); BLOOD UREA NITROGEN 22.4 mg/dL (7-18); CALCIUM 8.5 mg/dL (8.5-10.1); MAGNESIUM 1.8 mg/dL (1.8-2.4)
[2020-04-26 07:28] LABS: CREATININE 0.9 mg/dL (0.55-1.3)
[2020-04-26 07:29] LABS: BILIRUBIN,TOTAL 0.2 mg/dL (0.2-1); TOT PROT 6.7 g/dl (6.4-8.2)
[2020-04-26] MEDS ORDERED: cefTRIAXone SODIUM 1 GM VIAL ONE (09:22)
[2020-04-26] MEDS ORDERED: DEXTROSE 5%-WATER - 50 ML IVPB ONE (09:22)
[2020-04-26] MEDS: LIDOCAINE 5% TOPICAL PATCH TP SCH (09:24)
[2020-04-26] MEDS: CARVEDILOL 3.125 MG TABLET (FP) PO SCH ×2 (09:25→22:44)
[2020-04-26] MEDS: CLOPIDOGREL BISULFATE 75 MG TABLET (FP) PO SCH (09:25)
[2020-04-26] MEDS: CEFTRIAXONE 1 GM in DEXTROSE 5%-WATER - 50 ML IVPB SCH (09:25)
[2020-04-26] MEDS: POLYETHYLENE GLYCOL 3350 119 GM BTL PO SCH ×2 (09:25→22:49)
[2020-04-26] MEDS: ESCITALOPRAM OXALATE 20 MG TABLET PO SCH (09:28)
[2020-04-26] MEDS ORDERED: DOCUSATE SODIUM 100 MG CAPSULE (FP) PO SCH (10:00)
[2020-04-26] MEDS ORDERED: SACUBITRIL/VALSARTAN 24 MG-26 MG TABLET PO SCH (10:00)
[2020-04-26] MEDS: BUDESONIDE/FORMETEROL FUMARATE 160/4.5 mcg INHALER IH SCH ×2 (10:43→22:48)
[2020-04-26] MEDS: SACUBITRIL/VALSARTAN 24 MG-26 MG TABLET PO SCH ×2 (10:43→22:44)
[2020-04-26] MEDS ORDERED: INSULIN SLIDING SCALE (NOVOLOG) 1 VIAL SQ SCH (11:00)
[2020-04-26] MEDS: INSULIN SLIDING SCALE (NOVOLOG) 1 VIAL SQ SCH ×3 (11:37→22:47)
[2020-04-26] MEDS ORDERED: PT OWN MED DRAWER 7, Y5N ONE (22:39)
[2020-04-26] MEDS: ROSUVASTATIN CA 20 MG TABLET PO SCH (22:44)
[2020-04-26] MEDS: GABAPENTIN 300 MG CAPSULE PO SCH (22:45)
[2020-04-26] MEDS: SENNOSIDES 8.6MG TABLET (FP) PO SCH (22:45)
[2020-04-26] MEDS: DOCUSATE SODIUM 100 MG CAPSULE (FP) PO SCH (22:45)
[2020-04-26] MEDS: LIDOCAINE PATCH REMOVAL MC SCH (22:47)
[2020-04-27] MEDS: oxyCODONE HCL 5 MG TABLET PO PRN ×2 (06:18→21:38)
[2020-04-27] MEDS: INSULIN SLIDING SCALE (NOVOLOG) 1 VIAL SQ SCH ×4 (06:20→21:39)
[2020-04-27 07:54] LABS: BASO % 0.7 % (0-2.0); EOS % 1.3 % (0-4.5); HEMATOCRIT 31.6 % (35.4-49); HEMOGLOBIN 10.2 GM/dL (11.7-16.9); LYMPH % 11.7 % (8-40); MCHC 32.4 g/dl (32.0-35.9); MEAN CELL VOLUME 77.2 fl (80-96); MEAN PLT VOLUME 7.5 fl (7.5-11.1); NEUT % 80.3 % (42.8-82.8); PLATELET COUNT 272 K/MM3 (134-434); RDW 18.2 % (11.9-15.9); WHITE BLOOD COUNT 8.3 K/mm3 (4.0-10.0)
[2020-04-27 08:11] LABS: ALBUMIN 2.4 g/dl (3.4-5.0); MAGNESIUM 1.7 mg/dL (1.8-2.4)
[2020-04-27 08:12] LABS: BLOOD UREA NITROGEN 15.6 mg/dL (7-18); CALCIUM 8.7 mg/dL (8.5-10.1)
[2020-04-27 08:14] LABS: CREATININE 0.9 mg/dL (0.55-1.3)
[2020-04-27 08:16] LABS: BILIRUBIN,TOTAL 0.5 mg/dL (0.2-1); TOT PROT 6.9 g/dl (6.4-8.2)
[2020-04-27] MEDS ORDERED: cefTRIAXone SODIUM 1 GM VIAL ONE (08:55)
[2020-04-27] MEDS ORDERED: DEXTROSE 5%-WATER - 50 ML IVPB ONE (08:55)
[2020-04-27] MEDS ORDERED: MAGNESIUM OXIDE 400 MG TABLET (FP) PO ONE (09:00)
[2020-04-27] MEDS: LIDOCAINE 5% TOPICAL PATCH TP SCH (09:16)
[2020-04-27] MEDS: CEFTRIAXONE 1 GM in DEXTROSE 5%-WATER - 50 ML IVPB SCH (09:17)
[2020-04-27] MEDS: CLOPIDOGREL BISULFATE 75 MG TABLET (FP) PO SCH (09:18)
[2020-04-27] MEDS: CARVEDILOL 3.125 MG TABLET (FP) PO SCH ×2 (09:18→21:37)
[2020-04-27] MEDS: ESCITALOPRAM OXALATE 20 MG TABLET PO SCH (09:18)
[2020-04-27] MEDS: POLYETHYLENE GLYCOL 3350 119 GM BTL PO SCH ×2 (09:19→21:38)
[2020-04-27] MEDS: SACUBITRIL/VALSARTAN 24 MG-26 MG TABLET PO SCH ×2 (09:19→21:38)
[2020-04-27] MEDS: BUDESONIDE/FORMETEROL FUMARATE 160/4.5 mcg INHALER IH SCH ×2 (09:19→21:40)
[2020-04-27] MEDS ORDERED: INSULIN (NOVOLOG) ASPART 100 UNITS/ML 10ML VIAL ONE ×2 (10:58→16:15)
[2020-04-27] MEDS: SENNOSIDES 8.6MG TABLET (FP) PO SCH (21:37)
[2020-04-27] MEDS: ROSUVASTATIN CA 20 MG TABLET PO SCH (21:37)
[2020-04-27] MEDS: DOCUSATE SODIUM 100 MG CAPSULE (FP) PO SCH (21:37)
[2020-04-27] MEDS: GABAPENTIN 300 MG CAPSULE PO SCH (21:37)
[2020-04-27] MEDS: LIDOCAINE PATCH REMOVAL MC SCH (21:39)
[2020-04-28] MEDS: INSULIN SLIDING SCALE (NOVOLOG) 1 VIAL SQ SCH ×4 (06:37→22:54)
[2020-04-28 07:38] LABS: BASO % 0.8 % (0-2.0); HEMATOCRIT 29.8 % (35.4-49); HEMOGLOBIN 9.7 GM/dL (11.7-16.9); LYMPH % 25.3 % (8-40); MCHC 32.7 g/dl (32.0-35.9); MEAN CELL VOLUME 76.6 fl (80-96); MEAN PLT VOLUME 7.5 fl (7.5-11.1); MONO % 6.6 % (3.8-10.2); NEUT % 64.3 % (42.8-82.8); PLATELET COUNT 253 K/MM3 (134-434); RBC 3.88 M/mm3 (4.00-5.60); RDW 18.4 % (11.9-15.9); WHITE BLOOD COUNT 5.7 K/mm3 (4.0-10.0)
[2020-04-28 07:40] LABS: INR 1.2 (0.83-1.09); PROTHROMBIN TIME (PATIENT) 14.4 SEC (9.7-13.0)
[2020-04-28 08:08] LABS: CALCIUM 8.7 mg/dL (8.5-10.1)
[2020-04-28 08:09] LABS: ALBUMIN 2.2 g/dl (3.4-5.0); BLOOD UREA NITROGEN 16.2 mg/dL (7-18); MAGNESIUM 2.1 mg/dL (1.8-2.4)
[2020-04-28 08:12] LABS: CREATININE 0.9 mg/dL (0.55-1.3)
[2020-04-28 08:13] LABS: BILIRUBIN,TOTAL 0.5 mg/dL (0.2-1); TOT PROT 6.5 g/dl (6.4-8.2)
[2020-04-28] MEDS ORDERED: DEXTROSE 5%-WATER - 50 ML IVPB ONE (09:02)
[2020-04-28] MEDS ORDERED: cefTRIAXone SODIUM 1 GM VIAL ONE (09:02)
[2020-04-28] MEDS: SACUBITRIL/VALSARTAN 24 MG-26 MG TABLET PO SCH ×2 (09:47→22:53)
[2020-04-28] MEDS: LIDOCAINE 5% TOPICAL PATCH TP SCH (09:47)
[2020-04-28] MEDS: CLOPIDOGREL BISULFATE 75 MG TABLET (FP) PO SCH (09:47)
[2020-04-28] MEDS: CARVEDILOL 3.125 MG TABLET (FP) PO SCH ×2 (09:48→22:53)
[2020-04-28] MEDS: ESCITALOPRAM OXALATE 20 MG TABLET PO SCH (09:48)
[2020-04-28] MEDS: CEFTRIAXONE 1 GM in DEXTROSE 5%-WATER - 50 ML IVPB SCH (09:48)
[2020-04-28] MEDS: POLYETHYLENE GLYCOL 3350 119 GM BTL PO SCH ×2 (09:49→22:54)
[2020-04-28] MEDS: BUDESONIDE/FORMETEROL FUMARATE 160/4.5 mcg INHALER IH SCH ×2 (09:50→23:00)
[2020-04-28] MEDS: oxyCODONE HCL 5 MG TABLET PO PRN ×2 (10:02→16:26)
[2020-04-28] MEDS ORDERED: INSULIN (NOVOLOG) ASPART 100 UNITS/ML 10ML VIAL ONE (11:14)
[2020-04-28] MEDS ORDERED: oxyCODONE HCL 5 MG TABLET PO ONE (18:35)
[2020-04-28] MEDS ORDERED: PT OWN MED DRAWER 7, Y5N ONE (22:33)
[2020-04-28] MEDS: DOCUSATE SODIUM 100 MG CAPSULE (FP) PO SCH (22:52)
[2020-04-28] MEDS: SENNOSIDES 8.6MG TABLET (FP) PO SCH (22:53)
[2020-04-28] MEDS: ROSUVASTATIN CA 20 MG TABLET PO SCH (22:53)
[2020-04-28] MEDS: GABAPENTIN 300 MG CAPSULE PO SCH (22:53)
[2020-04-28] MEDS: LIDOCAINE PATCH REMOVAL MC SCH (22:53)
[2020-04-29 07:01] LABS: BASO % 0.6 % (0-2.0); EOS % 1.7 % (0-4.5); HEMATOCRIT 31.9 % (35.4-49); HEMOGLOBIN 10.4 GM/dL (11.7-16.9); LYMPH % 13.6 % (8-40); MCHC 32.4 g/dl (32.0-35.9); MEAN CELL VOLUME 77.1 fl (80-96); MEAN PLT VOLUME 7.4 fl (7.5-11.1); MONO % 6.2 % (3.8-10.2); NEUT % 77.9 % (42.8-82.8); PLATELET COUNT 278 K/MM3 (134-434); RBC 4.14 M/mm3 (4.00-5.60); RDW 18.4 % (11.9-15.9)
[2020-04-29] MEDS: INSULIN SLIDING SCALE (NOVOLOG) 1 VIAL SQ SCH ×4 (07:08→22:09)
[2020-04-29 07:18] LABS: CALCIUM 8.8 mg/dL (8.5-10.1)
[2020-04-29 07:19] LABS: ALBUMIN 2.3 g/dl (3.4-5.0); BLOOD UREA NITROGEN 20.5 mg/dL (7-18); MAGNESIUM 1.9 mg/dL (1.8-2.4)
[2020-04-29 07:22] LABS: CREATININE 1.1 mg/dL (0.55-1.3)
[2020-04-29 07:24] LABS: BILIRUBIN,TOTAL 0.3 mg/dL (0.2-1); TOT PROT 6.8 g/dl (6.4-8.2)
[2020-04-29] MEDS ORDERED: TAMSULOSIN HCL 0.4 MG CAP PO ONE (08:45)
[2020-04-29] MEDS ORDERED: DEXTROSE 5%-WATER - 50 ML IVPB ONE (09:45)
[2020-04-29] MEDS ORDERED: cefTRIAXone SODIUM 1 GM VIAL ONE (09:45)
[2020-04-29] MEDS: CEFTRIAXONE 1 GM in DEXTROSE 5%-WATER - 50 ML IVPB SCH ×2 (09:50→09:52)
[2020-04-29] MEDS: ESCITALOPRAM OXALATE 20 MG TABLET PO SCH (09:51)
[2020-04-29] MEDS: CARVEDILOL 3.125 MG TABLET (FP) PO SCH ×2 (09:51→21:47)
[2020-04-29] MEDS: CLOPIDOGREL BISULFATE 75 MG TABLET (FP) PO SCH (09:51)
[2020-04-29] MEDS: SACUBITRIL/VALSARTAN 24 MG-26 MG TABLET PO SCH ×2 (09:53→21:49)
[2020-04-29] MEDS: FLUCONAZOLE 200 MG/NS 100 ML IVPB SCH (10:00)
[2020-04-29] MEDS ORDERED: FLUCONAZOLE 200 MG/NS 100 ML IVPB SCH (10:00)
[2020-04-29] MEDS: BUDESONIDE/FORMETEROL FUMARATE 160/4.5 mcg INHALER IH SCH ×2 (10:00→22:11)
[2020-04-29] MEDS: POLYETHYLENE GLYCOL 3350 119 GM BTL PO SCH ×2 (10:00→22:10)
[2020-04-29] MEDS ORDERED: PT OWN MED DRAWER 7, Y5N ONE ×2 (10:51→20:50)
[2020-04-29] MEDS: LIDOCAINE 5% TOPICAL PATCH TP SCH (18:25)
[2020-04-29] MEDS: oxyCODONE HCL 5 MG TABLET PO PRN (18:53)
[2020-04-29] MEDS: GABAPENTIN 300 MG CAPSULE PO SCH (21:47)
[2020-04-29] MEDS: SENNOSIDES 8.6MG TABLET (FP) PO SCH (21:47)
[2020-04-29] MEDS: DOCUSATE SODIUM 100 MG CAPSULE (FP) PO SCH (21:47)
[2020-04-29] MEDS: ROSUVASTATIN CA 20 MG TABLET PO SCH (21:47)
[2020-04-29] MEDS: LIDOCAINE PATCH REMOVAL MC SCH (21:49)
[2020-04-30] MEDS: INSULIN SLIDING SCALE (NOVOLOG) 1 VIAL SQ SCH ×4 (07:00→22:51)
[2020-04-30 07:13] LABS: BASO % 0.8 % (0-2.0); EOS % 4.4 % (0-4.5); HEMATOCRIT 30.8 % (35.4-49); LYMPH % 22.1 % (8-40); MCHC 32.4 g/dl (32.0-35.9); MEAN CELL VOLUME 77.1 fl (80-96); MEAN PLT VOLUME 7.4 fl (7.5-11.1); NEUT % 64.7 % (42.8-82.8); PLATELET COUNT 269 K/MM3 (134-434); RDW 18.4 % (11.9-15.9); WHITE BLOOD COUNT 6.1 K/mm3 (4.0-10.0)
[2020-04-30 07:26] LABS: INR 1.08 (0.83-1.09)
[2020-04-30 07:33] LABS: ALBUMIN 2.3 g/dl (3.4-5.0); BLOOD UREA NITROGEN 23.6 mg/dL (7-18); CALCIUM 8.4 mg/dL (8.5-10.1); MAGNESIUM 1.9 mg/dL (1.8-2.4)
[2020-04-30 07:37] LABS: CREATININE 1.1 mg/dL (0.55-1.3)
[2020-04-30 07:38] LABS: BILIRUBIN,TOTAL 0.3 mg/dL (0.2-1); TOT PROT 6.6 g/dl (6.4-8.2)
[2020-04-30] MEDS ORDERED: DEXTROSE 5%-WATER - 50 ML IVPB ONE (08:52)
[2020-04-30] MEDS ORDERED: cefTRIAXone SODIUM 1 GM VIAL ONE (08:52)
[2020-04-30] MEDS ORDERED: PT OWN MED DRAWER 7, Y5N ONE ×2 (08:53→22:42)
[2020-04-30] MEDS: LIDOCAINE 5% TOPICAL PATCH TP SCH (09:03)
[2020-04-30] MEDS: CEFTRIAXONE 1 GM in DEXTROSE 5%-WATER - 50 ML IVPB SCH (09:03)
[2020-04-30] MEDS: TAMSULOSIN HCL 0.4 MG CAP PO SCH (09:04)
[2020-04-30] MEDS: ESCITALOPRAM OXALATE 20 MG TABLET PO SCH (09:05)
[2020-04-30] MEDS: CARVEDILOL 3.125 MG TABLET (FP) PO SCH ×2 (09:05→22:50)
[2020-04-30] MEDS: oxyCODONE HCL 5 MG TABLET PO PRN ×2 (09:05→23:09)
[2020-04-30] MEDS: SACUBITRIL/VALSARTAN 24 MG-26 MG TABLET PO SCH ×2 (09:06→22:51)
[2020-04-30] MEDS: FLUCONAZOLE 200 MG/NS 100 ML IVPB SCH (09:08)
[2020-04-30] MEDS: POLYETHYLENE GLYCOL 3350 119 GM BTL PO SCH ×2 (09:08→22:52)
[2020-04-30] MEDS: BUDESONIDE/FORMETEROL FUMARATE 160/4.5 mcg INHALER IH SCH ×2 (09:09→22:53)
[2020-04-30] MEDS: ROSUVASTATIN CA 20 MG TABLET PO SCH (22:50)
[2020-04-30] MEDS: SENNOSIDES 8.6MG TABLET (FP) PO SCH (22:50)
[2020-04-30] MEDS: GABAPENTIN 300 MG CAPSULE PO SCH (22:50)
[2020-04-30] MEDS: DOCUSATE SODIUM 100 MG CAPSULE (FP) PO SCH (22:50)
[2020-04-30] MEDS: LIDOCAINE PATCH REMOVAL MC SCH (22:51)
[2020-05-01] MEDS: oxyCODONE HCL 5 MG TABLET PO PRN (05:47)
[2020-05-01] MEDS: INSULIN SLIDING SCALE (NOVOLOG) 1 VIAL SQ SCH ×4 (08:30→22:58)
[2020-05-01 08:36] LABS: BASO % 0.8 % (0-2.0); EOS % 3.2 % (0-4.5); HEMATOCRIT 34.3 % (35.4-49); HEMOGLOBIN 10.9 GM/dL (11.7-16.9); LYMPH % 14.6 % (8-40); MCH 25.1 pg (25.7-33.7); MCHC 31.7 g/dl (32.0-35.9); MEAN CELL VOLUME 79.2 fl (80-96); MEAN PLT VOLUME 7.7 fl (7.5-11.1); MONO % 8.5 % (3.8-10.2); NEUT % 72.9 % (42.8-82.8); PLATELET COUNT 285 K/MM3 (134-434); RBC 4.33 M/mm3 (4.00-5.60); RDW 18.7 % (11.9-15.9); WHITE BLOOD COUNT 8.6 K/mm3 (4.0-10.0)
[2020-05-01 08:59] LABS: ALBUMIN 2.7 g/dl (3.4-5.0)
[2020-05-01 09:00] LABS: BLOOD UREA NITROGEN 24.1 mg/dL (7-18); CALCIUM 8.9 mg/dL (8.5-10.1)
[2020-05-01 09:01] LABS: BILIRUBIN,TOTAL 0.3 mg/dL (0.2-1); MAGNESIUM 2.2 mg/dL (1.8-2.4); TOT PROT 7.4 g/dl (6.4-8.2)
[2020-05-01 09:02] LABS: CREATININE 1.3 mg/dL (0.55-1.3)
[2020-05-01] MEDS ORDERED: DEXTROSE 5%-WATER - 50 ML IVPB ONE (09:15)
[2020-05-01] MEDS ORDERED: cefTRIAXone SODIUM 1 GM VIAL ONE (09:15)
[2020-05-01] MEDS: LIDOCAINE 5% TOPICAL PATCH TP SCH (09:19)
[2020-05-01] MEDS: POLYETHYLENE GLYCOL 3350 119 GM BTL PO SCH ×2 (09:19→23:09)
[2020-05-01] MEDS: ESCITALOPRAM OXALATE 20 MG TABLET PO SCH (09:19)
[2020-05-01] MEDS: TAMSULOSIN HCL 0.4 MG CAP PO SCH (09:19)
[2020-05-01] MEDS: BUDESONIDE/FORMETEROL FUMARATE 160/4.5 mcg INHALER IH SCH ×2 (09:20→23:17)
[2020-05-01] MEDS: FLUCONAZOLE 200 MG/NS 100 ML IVPB SCH (09:32)
[2020-05-01] MEDS: CEFTRIAXONE 1 GM in DEXTROSE 5%-WATER - 50 ML IVPB SCH (09:34)
[2020-05-01] MEDS: CARVEDILOL 3.125 MG TABLET (FP) PO SCH ×2 (09:35→23:09)
[2020-05-01] MEDS ORDERED: LIDOCAINE 5% TOPICAL PATCH TP ONE (09:59)
[2020-05-01] MEDS ORDERED: ACETAMINOPHEN 325 MG TABLET (FP) PO PRN (10:00)
[2020-05-01] MEDS: SACUBITRIL/VALSARTAN 24 MG-26 MG TABLET PO SCH ×2 (10:44→23:09)
[2020-05-01] MEDS ORDERED: SODIUM CHLORIDE 1,000 ML IV SCH (15:00)
[2020-05-01 15:13] LABS: ALLENS TEST POSITIVE; ARTERIAL BLD GAS O2 SATURATION 95.6 mmHg (95-98); ARTERIAL BLOOD GAS BASE EXCESS -1.5 mmol/L (-2-2); ARTERIAL BLOOD GAS PO2 75.2 mmHg (80-100); ARTERIAL BLOOD GAS pH 7.431 (7.350-7.450)
[2020-05-01] MEDS: DEXTROSE 5%-NORMAL SALINE 1,000 ML IV SCH (16:21)
[2020-05-01] MEDS ORDERED: LIDOCAINE PATCH REMOVAL MC SCH (22:00)
[2020-05-01] MEDS ORDERED: SODIUM CHLORIDE 250 ML IV STA (23:02)
[2020-05-01] MEDS: ROSUVASTATIN CA 20 MG TABLET PO SCH (23:09)
[2020-05-01] MEDS: DOCUSATE SODIUM 100 MG CAPSULE (FP) PO SCH (23:09)
[2020-05-01] MEDS: SENNOSIDES 8.6MG TABLET (FP) PO SCH (23:10)
[2020-05-01] MEDS: GABAPENTIN 300 MG CAPSULE PO SCH (23:10)
[2020-05-01] MEDS ORDERED: PT OWN MED DRAWER 7, Y5N ONE (23:35)
[2020-05-01] MEDS: LIDOCAINE PATCH REMOVAL MC SCH (23:45)
[2020-05-02] MEDS ORDERED: ACETAMINOPHEN 1000 MG/100 ML BAG IVPB ONE (05:52)
[2020-05-02] MEDS: INSULIN SLIDING SCALE (NOVOLOG) 1 VIAL SQ SCH ×4 (06:22→22:18)
[2020-05-02 07:05] LABS: BASO % 0.6 % (0-2.0); EOS % 1.7 % (0-4.5); HEMATOCRIT 28.1 % (35.4-49); MCH 25.1 pg (25.7-33.7); MCHC 31.9 g/dl (32.0-35.9); MEAN CELL VOLUME 78.7 fl (80-96); MEAN PLT VOLUME 7.7 fl (7.5-11.1); MONO % 10.7 % (3.8-10.2); PLATELET COUNT 232 K/MM3 (134-434); RBC 3.56 M/mm3 (4.00-5.60); RDW 18.5 % (11.9-15.9)
[2020-05-02 07:22] LABS: ALBUMIN 2.2 g/dl (3.4-5.0); BLOOD UREA NITROGEN 30.2 mg/dL (7-18); CALCIUM 8.4 mg/dL (8.5-10.1)
[2020-05-02 07:23] LABS: MAGNESIUM 1.9 mg/dL (1.8-2.4)
[2020-05-02 07:25] LABS: CREATININE 1.2 mg/dL (0.55-1.3)
[2020-05-02 07:27] LABS: BILIRUBIN,TOTAL 0.2 mg/dL (0.2-1); TOT PROT 6.3 g/dl (6.4-8.2)
[2020-05-02] MEDS: DEXTROSE 5%-NORMAL SALINE 1,000 ML IV SCH ×2 (08:00→16:45)
[2020-05-02] MEDS: TAMSULOSIN HCL 0.4 MG CAP PO SCH (08:30)
[2020-05-02] MEDS ORDERED: DEXTROSE 5%-WATER - 50 ML IVPB ONE (09:56)
[2020-05-02] MEDS ORDERED: cefTRIAXone SODIUM 1 GM VIAL ONE (09:56)
[2020-05-02] MEDS ORDERED: PT OWN MED DRAWER 7, Y5N ONE ×2 (09:56→21:24)
[2020-05-02] MEDS: ESCITALOPRAM OXALATE 20 MG TABLET PO SCH (10:28)
[2020-05-02] MEDS: CLOPIDOGREL BISULFATE 75 MG TABLET (FP) PO SCH (10:28)
[2020-05-02] MEDS: POLYETHYLENE GLYCOL 3350 119 GM BTL PO SCH ×2 (10:28→22:18)
[2020-05-02] MEDS: SACUBITRIL/VALSARTAN 24 MG-26 MG TABLET PO SCH ×2 (10:28→22:19)
[2020-05-02] MEDS: CARVEDILOL 3.125 MG TABLET (FP) PO SCH ×2 (10:28→22:19)
[2020-05-02] MEDS: CEFTRIAXONE 1 GM in DEXTROSE 5%-WATER - 50 ML IVPB SCH (10:29)
[2020-05-02] MEDS: LIDOCAINE 5% TOPICAL PATCH TP SCH (10:29)
[2020-05-02] MEDS: FLUCONAZOLE 200 MG/NS 100 ML IVPB SCH (10:30)
[2020-05-02] MEDS: BUDESONIDE/FORMETEROL FUMARATE 160/4.5 mcg INHALER IH SCH ×2 (10:32→23:13)
[2020-05-02] MEDS: SENNOSIDES 8.6MG TABLET (FP) PO SCH (22:19)
[2020-05-02] MEDS: DOCUSATE SODIUM 100 MG CAPSULE (FP) PO SCH (22:19)
[2020-05-02] MEDS: GABAPENTIN 300 MG CAPSULE PO SCH (22:19)
[2020-05-02] MEDS: ROSUVASTATIN CA 20 MG TABLET PO SCH (22:19)
[2020-05-02] MEDS: LIDOCAINE PATCH REMOVAL MC SCH (22:24)
[2020-05-02] MEDS: ACETAMINOPHEN 325 MG TABLET (FP) PO PRN (23:40)
[2020-05-03] MEDS: INSULIN SLIDING SCALE (NOVOLOG) 1 VIAL SQ SCH ×4 (06:56→22:04)
[2020-05-03] MEDS: ACETAMINOPHEN 325 MG TABLET (FP) PO PRN (06:59)
[2020-05-03] MEDS ORDERED: DEXTROSE 5%-WATER - 50 ML IVPB ONE (08:50)
[2020-05-03] MEDS ORDERED: cefTRIAXone SODIUM 1 GM VIAL ONE (08:50)
[2020-05-03] MEDS: CARVEDILOL 3.125 MG TABLET (FP) PO SCH ×2 (09:01→21:35)
[2020-05-03] MEDS: LIDOCAINE 5% TOPICAL PATCH TP SCH (09:01)
[2020-05-03] MEDS: TAMSULOSIN HCL 0.4 MG CAP PO SCH (09:01)
[2020-05-03] MEDS: CLOPIDOGREL BISULFATE 75 MG TABLET (FP) PO SCH (09:01)
[2020-05-03] MEDS: ESCITALOPRAM OXALATE 20 MG TABLET PO SCH (09:02)
[2020-05-03] MEDS: POLYETHYLENE GLYCOL 3350 119 GM BTL PO SCH ×2 (09:02→22:04)
[2020-05-03] MEDS: CEFTRIAXONE 1 GM in DEXTROSE 5%-WATER - 50 ML IVPB SCH (09:02)
[2020-05-03] MEDS: SACUBITRIL/VALSARTAN 24 MG-26 MG TABLET PO SCH ×2 (09:02→21:34)
[2020-05-03] MEDS: BUDESONIDE/FORMETEROL FUMARATE 160/4.5 mcg INHALER IH SCH ×2 (09:03→22:04)
[2020-05-03] MEDS: DEXTROSE 5%-NORMAL SALINE 1,000 ML IV SCH ×2 (09:14→22:03)
[2020-05-03] MEDS: FLUCONAZOLE 200 MG/NS 100 ML IVPB SCH (11:08)
[2020-05-03] MEDS ORDERED: PT OWN MED DRAWER 7, Y5N ONE ×3 (11:08→22:02)
[2020-05-03 12:15] LABS: BASO % 0.8 % (0-2.0); EOS % 2.3 % (0-4.5); HEMATOCRIT 27.3 % (35.4-49); HEMOGLOBIN 8.7 GM/dL (11.7-16.9); LYMPH % 15.3 % (8-40); MEAN CELL VOLUME 78.3 fl (80-96); MEAN PLT VOLUME 7.9 fl (7.5-11.1); MONO % 6.5 % (3.8-10.2); NEUT % 75.1 % (42.8-82.8); PLATELET COUNT 204 K/MM3 (134-434); RBC 3.49 M/mm3 (4.00-5.60); RDW 18.9 % (11.9-15.9); WHITE BLOOD COUNT 6.7 K/mm3 (4.0-10.0)
[2020-05-03 12:40] LABS: CALCIUM 8.2 mg/dL (8.5-10.1)
[2020-05-03 12:41] LABS: BLOOD UREA NITROGEN 21.4 mg/dL (7-18); MAGNESIUM 1.9 mg/dL (1.8-2.4)
[2020-05-03 12:44] LABS: CREATININE 0.9 mg/dL (0.55-1.3)
[2020-05-03 12:45] LABS: BILIRUBIN,TOTAL 0.1 mg/dL (0.2-1); TOT PROT 6.1 g/dl (6.4-8.2)
[2020-05-03] MEDS: DOCUSATE SODIUM 100 MG CAPSULE (FP) PO SCH (21:34)
[2020-05-03] MEDS: ROSUVASTATIN CA 20 MG TABLET PO SCH (21:34)
[2020-05-03] MEDS: GABAPENTIN 300 MG CAPSULE PO SCH (21:35)
[2020-05-03] MEDS: SENNOSIDES 8.6MG TABLET (FP) PO SCH (21:35)
[2020-05-03] MEDS: LIDOCAINE PATCH REMOVAL MC SCH (21:35)
[2020-05-04] MEDS: INSULIN SLIDING SCALE (NOVOLOG) 1 VIAL SQ SCH ×4 (07:21→22:58)
[2020-05-04 07:46] LABS: CALCIUM 8.2 mg/dL (8.5-10.1)
[2020-05-04 07:47] LABS: ALBUMIN 2.1 g/dl (3.4-5.0); BLOOD UREA NITROGEN 16.9 mg/dL (7-18); MAGNESIUM 1.7 mg/dL (1.8-2.4)
[2020-05-04 07:50] LABS: CREATININE 0.8 mg/dL (0.55-1.3)
[2020-05-04 07:52] LABS: BILIRUBIN,TOTAL 0.2 mg/dL (0.2-1); TOT PROT 6.2 g/dl (6.4-8.2)
[2020-05-04 07:54] LABS: BASO % 0.8 % (0-2.0); EOS % 2.2 % (0-4.5); HEMOGLOBIN 9.4 GM/dL (11.7-16.9); LYMPH % 22.8 % (8-40); MCH 25.1 pg (25.7-33.7); MCHC 32.4 g/dl (32.0-35.9); MEAN CELL VOLUME 77.3 fl (80-96); NEUT % 68.2 % (42.8-82.8); PLATELET COUNT 230 K/MM3 (134-434); RBC 3.75 M/mm3 (4.00-5.60); RDW 18.6 % (11.9-15.9)
[2020-05-04] MEDS ORDERED: PT OWN MED DRAWER 7, Y5N ONE ×2 (08:38→22:41)
[2020-05-04] MEDS ORDERED: cefTRIAXone SODIUM 1 GM VIAL ONE (08:39)
[2020-05-04] MEDS ORDERED: DEXTROSE 5%-WATER - 50 ML IVPB ONE (08:39)
[2020-05-04] MEDS: CEFTRIAXONE 1 GM in DEXTROSE 5%-WATER - 50 ML IVPB SCH (08:59)
[2020-05-04] MEDS: ESCITALOPRAM OXALATE 20 MG TABLET PO SCH (09:00)
[2020-05-04] MEDS: TAMSULOSIN HCL 0.4 MG CAP PO SCH (09:00)
[2020-05-04] MEDS: LIDOCAINE 5% TOPICAL PATCH TP SCH (09:00)
[2020-05-04] MEDS: CARVEDILOL 3.125 MG TABLET (FP) PO SCH ×2 (09:00→22:39)
[2020-05-04] MEDS: CLOPIDOGREL BISULFATE 75 MG TABLET (FP) PO SCH (09:00)
[2020-05-04] MEDS: SACUBITRIL/VALSARTAN 24 MG-26 MG TABLET PO SCH ×2 (09:01→22:43)
[2020-05-04] MEDS: POLYETHYLENE GLYCOL 3350 119 GM BTL PO SCH ×4 (09:01→22:51)
[2020-05-04] MEDS: BUDESONIDE/FORMETEROL FUMARATE 160/4.5 mcg INHALER IH SCH ×2 (09:07→22:44)
[2020-05-04] MEDS: FLUCONAZOLE 200 MG/NS 100 ML IVPB SCH (09:55)
[2020-05-04] MEDS: DOCUSATE SODIUM 100 MG CAPSULE (FP) PO SCH (22:39)
[2020-05-04] MEDS: GABAPENTIN 300 MG CAPSULE PO SCH (22:39)
[2020-05-04] MEDS: ROSUVASTATIN CA 20 MG TABLET PO SCH (22:39)
[2020-05-04] MEDS: SENNOSIDES 8.6MG TABLET (FP) PO SCH (22:43)
[2020-05-04] MEDS: LIDOCAINE PATCH REMOVAL MC SCH (22:43)
[2020-05-05] MEDS: INSULIN SLIDING SCALE (NOVOLOG) 1 VIAL SQ SCH ×4 (07:04→22:00)
[2020-05-05 07:58] LABS: BLOOD UREA NITROGEN 12.3 mg/dL (7-18)
[2020-05-05 07:59] LABS: MAGNESIUM 1.6 mg/dL (1.8-2.4)
[2020-05-05 08:00] LABS: CALCIUM 8.3 mg/dL (8.5-10.1); CREATININE 0.8 mg/dL (0.55-1.3)
[2020-05-05 08:09] LABS: BASO % 0.8 % (0-2.0); EOS % 1.2 % (0-4.5); HEMATOCRIT 29.6 % (35.4-49); HEMOGLOBIN 9.8 GM/dL (11.7-16.9); LYMPH % 23.3 % (8-40); MCH 25.5 pg (25.7-33.7); MCHC 33.2 g/dl (32.0-35.9); MEAN CELL VOLUME 76.7 fl (80-96); MEAN PLT VOLUME 8.2 fl (7.5-11.1); MONO % 5.9 % (3.8-10.2); NEUT % 68.8 % (42.8-82.8); PLATELET COUNT 237 K/MM3 (134-434); RBC 3.86 M/mm3 (4.00-5.60); RDW 18.4 % (11.9-15.9); WHITE BLOOD COUNT 5.8 K/mm3 (4.0-10.0)
[2020-05-05] MEDS ORDERED: PT OWN MED DRAWER 7, Y5N ONE ×2 (09:27→21:59)
[2020-05-05] MEDS ORDERED: cefTRIAXone SODIUM 1 GM VIAL ONE (09:27)
[2020-05-05] MEDS ORDERED: DEXTROSE 5%-WATER - 50 ML IVPB ONE (09:28)
[2020-05-05] MEDS: DEXTROSE 5%-NORMAL SALINE 1,000 ML IV SCH ×2 (11:42→15:46)
[2020-05-05] MEDS: TAMSULOSIN HCL 0.4 MG CAP PO SCH (11:44)
[2020-05-05] MEDS: CARVEDILOL 3.125 MG TABLET (FP) PO SCH ×2 (11:44→21:57)
[2020-05-05] MEDS: SACUBITRIL/VALSARTAN 24 MG-26 MG TABLET PO SCH ×2 (11:45→22:00)
[2020-05-05] MEDS: FLUCONAZOLE 200 MG/NS 100 ML IVPB SCH (11:45)
[2020-05-05] MEDS: LIDOCAINE 5% TOPICAL PATCH TP SCH (11:46)
[2020-05-05] MEDS: CLOPIDOGREL BISULFATE 75 MG TABLET (FP) PO SCH (11:46)
[2020-05-05] MEDS: CEFTRIAXONE 1 GM in DEXTROSE 5%-WATER - 50 ML IVPB SCH (11:46)
[2020-05-05] MEDS: FUROSEMIDE 20 MG TABLET (FP) PO SCH (11:46)
[2020-05-05] MEDS: ESCITALOPRAM OXALATE 20 MG TABLET PO SCH (11:46)
[2020-05-05] MEDS: POLYETHYLENE GLYCOL 3350 119 GM BTL PO SCH ×2 (11:46→22:00)
[2020-05-05] MEDS: BUDESONIDE/FORMETEROL FUMARATE 160/4.5 mcg INHALER IH SCH ×2 (12:01→22:01)
[2020-05-05] MEDS: DOCUSATE SODIUM 100 MG CAPSULE (FP) PO SCH (21:57)
[2020-05-05] MEDS: ROSUVASTATIN CA 20 MG TABLET PO SCH (21:58)
[2020-05-05] MEDS: GABAPENTIN 300 MG CAPSULE PO SCH (21:58)
[2020-05-05] MEDS: ACETAMINOPHEN 325 MG TABLET (FP) PO PRN (22:00)
[2020-05-05] MEDS: LIDOCAINE PATCH REMOVAL MC SCH (22:00)
[2020-05-05] MEDS: SENNOSIDES 8.6MG TABLET (FP) PO SCH (22:01)
[2020-05-06] MEDS: DEXTROSE 5%-NORMAL SALINE 1,000 ML IV SCH ×2 (05:56→16:30)
[2020-05-06] MEDS: ACETAMINOPHEN 325 MG TABLET (FP) PO PRN ×3 (06:08→21:34)
[2020-05-06] MEDS: INSULIN SLIDING SCALE (NOVOLOG) 1 VIAL SQ SCH ×4 (06:55→21:38)
[2020-05-06] MEDS ORDERED: DEXTROSE 5%-WATER - 50 ML IVPB ONE (08:43)
[2020-05-06] MEDS ORDERED: cefTRIAXone SODIUM 1 GM VIAL ONE (08:43)
[2020-05-06] MEDS: CLOPIDOGREL BISULFATE 75 MG TABLET (FP) PO SCH (10:09)
[2020-05-06] MEDS: TAMSULOSIN HCL 0.4 MG CAP PO SCH (10:09)
[2020-05-06] MEDS: ESCITALOPRAM OXALATE 20 MG TABLET PO SCH (10:09)
[2020-05-06] MEDS: CEFTRIAXONE 1 GM in DEXTROSE 5%-WATER - 50 ML IVPB SCH (10:09)
[2020-05-06] MEDS: CARVEDILOL 3.125 MG TABLET (FP) PO SCH ×2 (10:09→21:34)
[2020-05-06] MEDS: FUROSEMIDE 20 MG TABLET (FP) PO SCH (10:09)
[2020-05-06] MEDS: SACUBITRIL/VALSARTAN 24 MG-26 MG TABLET PO SCH ×2 (10:10→21:34)
[2020-05-06] MEDS: LIDOCAINE 5% TOPICAL PATCH TP SCH (10:10)
[2020-05-06] MEDS: POLYETHYLENE GLYCOL 3350 119 GM BTL PO SCH ×2 (10:10→21:39)
[2020-05-06] MEDS: BUDESONIDE/FORMETEROL FUMARATE 160/4.5 mcg INHALER IH SCH ×2 (10:10→21:37)
[2020-05-06] MEDS: FLUCONAZOLE 200 MG/NS 100 ML IVPB SCH (10:59)
[2020-05-06 16:26] LABS: BASO % 0.9 % (0-2.0); EOS % 2.1 % (0-4.5); HEMATOCRIT 28.2 % (35.4-49); HEMOGLOBIN 9.3 GM/dL (11.7-16.9); LYMPH % 20.5 % (8-40); MCH 25.6 pg (25.7-33.7); MCHC 32.9 g/dl (32.0-35.9); MEAN CELL VOLUME 77.8 fl (80-96); MEAN PLT VOLUME 7.9 fl (7.5-11.1); MONO % 5.6 % (3.8-10.2); NEUT % 70.9 % (42.8-82.8); PLATELET COUNT 208 K/MM3 (134-434); RBC 3.62 M/mm3 (4.00-5.60); RDW 18.5 % (11.9-15.9)
[2020-05-06 16:42] LABS: BLOOD UREA NITROGEN 11.7 mg/dL (7-18); CALCIUM 7.7 mg/dL (8.5-10.1); MAGNESIUM 1.3 mg/dL (1.8-2.4)
[2020-05-06 16:45] LABS: CREATININE 0.9 mg/dL (0.55-1.3)
[2020-05-06 16:47] LABS: BILIRUBIN,TOTAL 0.3 mg/dL (0.2-1); TOT PROT 5.7 g/dl (6.4-8.2)
[2020-05-06] MEDS: GABAPENTIN 300 MG CAPSULE PO SCH (21:34)
[2020-05-06] MEDS: DOCUSATE SODIUM 100 MG CAPSULE (FP) PO SCH (21:34)
[2020-05-06] MEDS: MAGNESIUM OXIDE 400 MG TABLET (FP) PO SCH (21:34)
[2020-05-06] MEDS: ROSUVASTATIN CA 20 MG TABLET PO SCH (21:34)
[2020-05-06] MEDS: SENNOSIDES 8.6MG TABLET (FP) PO SCH (21:38)
[2020-05-06] MEDS: LIDOCAINE PATCH REMOVAL MC SCH (21:39)
[2020-05-07] MEDS: INSULIN SLIDING SCALE (NOVOLOG) 1 VIAL SQ SCH ×4 (06:42→21:09)
[2020-05-07] MEDS ORDERED: PT OWN MED DRAWER 7, Y5N ONE (09:18)
[2020-05-07] MEDS ORDERED: cefTRIAXone SODIUM 1 GM VIAL ONE (09:19)
[2020-05-07] MEDS ORDERED: DEXTROSE 5%-WATER - 50 ML IVPB ONE (09:19)
[2020-05-07] MEDS: FUROSEMIDE 20 MG TABLET (FP) PO SCH (09:43)
[2020-05-07] MEDS: LIDOCAINE 5% TOPICAL PATCH TP SCH (09:43)
[2020-05-07] MEDS: TAMSULOSIN HCL 0.4 MG CAP PO SCH (09:44)
[2020-05-07] MEDS: MAGNESIUM OXIDE 400 MG TABLET (FP) PO SCH ×2 (09:44→21:00)
[2020-05-07] MEDS: CLOPIDOGREL BISULFATE 75 MG TABLET (FP) PO SCH (09:45)
[2020-05-07] MEDS: SACUBITRIL/VALSARTAN 24 MG-26 MG TABLET PO SCH ×2 (09:45→21:00)
[2020-05-07] MEDS: CARVEDILOL 3.125 MG TABLET (FP) PO SCH ×2 (09:45→21:01)
[2020-05-07] MEDS: ESCITALOPRAM OXALATE 20 MG TABLET PO SCH (09:46)
[2020-05-07 10:06] LABS: BASO % 0.9 % (0-2.0); EOS % 2.2 % (0-4.5); HEMATOCRIT 28.6 % (35.4-49); HEMOGLOBIN 9.3 GM/dL (11.7-16.9); MCH 25.3 pg (25.7-33.7); MCHC 32.4 g/dl (32.0-35.9); MEAN PLT VOLUME 7.9 fl (7.5-11.1); MONO % 4.8 % (3.8-10.2); NEUT % 74.1 % (42.8-82.8); PLATELET COUNT 200 K/MM3 (134-434); RBC 3.66 M/mm3 (4.00-5.60); RDW 18.2 % (11.9-15.9); WHITE BLOOD COUNT 6.1 K/mm3 (4.0-10.0)
[2020-05-07 10:26] LABS: BLOOD UREA NITROGEN 11.1 mg/dL (7-18)
[2020-05-07 10:30] LABS: CREATININE 0.8 mg/dL (0.55-1.3); MAGNESIUM 1.4 mg/dL (1.8-2.4)
[2020-05-07 10:32] LABS: BILIRUBIN,TOTAL 0.4 mg/dL (0.2-1); TOT PROT 5.7 g/dl (6.4-8.2)
[2020-05-07] MEDS: CEFTRIAXONE 1 GM in DEXTROSE 5%-WATER - 50 ML IVPB SCH (10:56)
[2020-05-07] MEDS: BUDESONIDE/FORMETEROL FUMARATE 160/4.5 mcg INHALER IH SCH ×2 (10:57→21:06)
[2020-05-07] MEDS: POLYETHYLENE GLYCOL 3350 119 GM BTL PO SCH ×2 (10:57→21:01)
[2020-05-07] MEDS: ACETAMINOPHEN 325 MG TABLET (FP) PO PRN ×2 (10:58→21:01)
[2020-05-07] MEDS: FLUCONAZOLE 200 MG/NS 100 ML IVPB SCH (12:00)
[2020-05-07] MEDS: SENNOSIDES 8.6MG TABLET (FP) PO SCH (21:00)
[2020-05-07] MEDS: DOCUSATE SODIUM 100 MG CAPSULE (FP) PO SCH (21:00)
[2020-05-07] MEDS: GABAPENTIN 300 MG CAPSULE PO SCH (21:00)
[2020-05-07] MEDS: ROSUVASTATIN CA 20 MG TABLET PO SCH (21:01)
[2020-05-07] MEDS: LIDOCAINE PATCH REMOVAL MC SCH (21:10)
[2020-05-08] MEDS: ACETAMINOPHEN 325 MG TABLET (FP) PO PRN ×2 (06:00→18:02)
[2020-05-08] MEDS: INSULIN SLIDING SCALE (NOVOLOG) 1 VIAL SQ SCH ×4 (06:24→22:51)
[2020-05-08] MEDS: AMINO ACIDS/PROTEIN HYDROLYS 30 ML LIQUID.PKT PO SCH (08:33)
[2020-05-08] MEDS ORDERED: DEXTROSE 5%-WATER - 50 ML IVPB ONE (08:51)
[2020-05-08] MEDS ORDERED: cefTRIAXone SODIUM 1 GM VIAL ONE (08:51)
[2020-05-08] MEDS ORDERED: PT OWN MED DRAWER 7, Y5N ONE ×2 (08:51→22:36)
[2020-05-08 09:58] LABS: EOS % 2.2 % (0-4.5); HEMATOCRIT 30.2 % (35.4-49); HEMOGLOBIN 9.9 GM/dL (11.7-16.9); LYMPH % 19.3 % (8-40); MCH 25.4 pg (25.7-33.7); MCHC 32.7 g/dl (32.0-35.9); MEAN CELL VOLUME 77.7 fl (80-96); MEAN PLT VOLUME 7.6 fl (7.5-11.1); NEUT % 72.5 % (42.8-82.8); PLATELET COUNT 222 K/MM3 (134-434); RBC 3.89 M/mm3 (4.00-5.60); RDW 18.5 % (11.9-15.9); WHITE BLOOD COUNT 7.4 K/mm3 (4.0-10.0)
[2020-05-08 10:04] LABS: INR 1.13 (0.83-1.09); PROTHROMBIN TIME (PATIENT) 13.8 SEC (9.7-13.0)
[2020-05-08] MEDS: FLUCONAZOLE 200 MG/NS 100 ML IVPB SCH (10:11)
[2020-05-08] MEDS: TAMSULOSIN HCL 0.4 MG CAP PO SCH (10:11)
[2020-05-08] MEDS: LIDOCAINE 5% TOPICAL PATCH TP SCH (10:11)
[2020-05-08] MEDS: ESCITALOPRAM OXALATE 20 MG TABLET PO SCH (10:11)
[2020-05-08] MEDS: SACUBITRIL/VALSARTAN 24 MG-26 MG TABLET PO SCH ×2 (10:12→22:42)
[2020-05-08] MEDS: POLYETHYLENE GLYCOL 3350 119 GM BTL PO SCH ×2 (10:12→22:51)
[2020-05-08] MEDS: CEFTRIAXONE 1 GM in DEXTROSE 5%-WATER - 50 ML IVPB SCH (10:12)
[2020-05-08] MEDS: FUROSEMIDE 20 MG TABLET (FP) PO SCH (10:12)
[2020-05-08] MEDS: CARVEDILOL 3.125 MG TABLET (FP) PO SCH ×2 (10:12→22:42)
[2020-05-08] MEDS: BUDESONIDE/FORMETEROL FUMARATE 160/4.5 mcg INHALER IH SCH ×2 (10:13→22:51)
[2020-05-08] MEDS: MAGNESIUM OXIDE 400 MG TABLET (FP) PO SCH ×2 (10:13→22:42)
[2020-05-08 10:26] LABS: CALCIUM 8.2 mg/dL (8.5-10.1)
[2020-05-08 10:27] LABS: ALBUMIN 2.2 g/dl (3.4-5.0); BLOOD UREA NITROGEN 10.5 mg/dL (7-18); MAGNESIUM 1.6 mg/dL (1.8-2.4)
[2020-05-08 10:30] LABS: CREATININE 0.8 mg/dL (0.55-1.3)
[2020-05-08 10:31] LABS: BILIRUBIN,TOTAL 0.1 mg/dL (0.2-1)
[2020-05-08] MEDS: GABAPENTIN 300 MG CAPSULE PO SCH (22:42)
[2020-05-08] MEDS: ROSUVASTATIN CA 20 MG TABLET PO SCH (22:42)
[2020-05-08] MEDS: DOCUSATE SODIUM 100 MG CAPSULE (FP) PO SCH (22:51)
[2020-05-08] MEDS: LIDOCAINE PATCH REMOVAL MC SCH (22:52)
[2020-05-08] MEDS: SENNOSIDES 8.6MG TABLET (FP) PO SCH (22:52)
[2020-05-09] MEDS: DEXTROSE 5%-NORMAL SALINE 1,000 ML IV SCH ×3 (05:37→21:56)
[2020-05-09] MEDS: INSULIN SLIDING SCALE (NOVOLOG) 1 VIAL SQ SCH ×4 (06:06→22:23)
[2020-05-09 08:10] LABS: BASO % 0.7 % (0-2.0); EOS % 2.5 % (0-4.5); HEMOGLOBIN 9.5 GM/dL (11.7-16.9); LYMPH % 22.3 % (8-40); MCH 25.4 pg (25.7-33.7); MCHC 32.6 g/dl (32.0-35.9); MEAN CELL VOLUME 77.9 fl (80-96); MEAN PLT VOLUME 7.8 fl (7.5-11.1); MONO % 5.2 % (3.8-10.2); NEUT % 69.3 % (42.8-82.8); PLATELET COUNT 213 K/MM3 (134-434); RBC 3.72 M/mm3 (4.00-5.60); RDW 18.1 % (11.9-15.9); WHITE BLOOD COUNT 5.9 K/mm3 (4.0-10.0)
[2020-05-09 08:38] LABS: ALBUMIN 2.1 g/dl (3.4-5.0); BLOOD UREA NITROGEN 10.8 mg/dL (7-18); MAGNESIUM 1.6 mg/dL (1.8-2.4)
[2020-05-09 08:40] LABS: BILIRUBIN,TOTAL 0.2 mg/dL (0.2-1); CREATININE 0.7 mg/dL (0.55-1.3)
[2020-05-09 08:41] LABS: TOT PROT 5.9 g/dl (6.4-8.2)
[2020-05-09] MEDS ORDERED: PT OWN MED DRAWER 7, Y5N ONE ×2 (10:11→21:00)
[2020-05-09] MEDS ORDERED: DEXTROSE 5%-WATER - 50 ML IVPB ONE (10:12)
[2020-05-09] MEDS ORDERED: cefTRIAXone SODIUM 1 GM VIAL ONE (10:12)
[2020-05-09] MEDS: LIDOCAINE 5% TOPICAL PATCH TP SCH (10:36)
[2020-05-09] MEDS: ESCITALOPRAM OXALATE 20 MG TABLET PO SCH (10:36)
[2020-05-09] MEDS: AMINO ACIDS/PROTEIN HYDROLYS 30 ML LIQUID.PKT PO SCH (10:36)
[2020-05-09] MEDS: SACUBITRIL/VALSARTAN 24 MG-26 MG TABLET PO SCH ×2 (10:36→21:56)
[2020-05-09] MEDS: CARVEDILOL 3.125 MG TABLET (FP) PO SCH ×2 (10:36→21:56)
[2020-05-09] MEDS: MAGNESIUM OXIDE 400 MG TABLET (FP) PO SCH ×2 (10:36→21:57)
[2020-05-09] MEDS: FUROSEMIDE 20 MG TABLET (FP) PO SCH (10:37)
[2020-05-09] MEDS: BUDESONIDE/FORMETEROL FUMARATE 160/4.5 mcg INHALER IH SCH ×2 (10:37→22:23)
[2020-05-09] MEDS: TAMSULOSIN HCL 0.4 MG CAP PO SCH (10:37)
[2020-05-09] MEDS: POLYETHYLENE GLYCOL 3350 119 GM BTL PO SCH ×2 (10:37→21:57)
[2020-05-09] MEDS: CEFTRIAXONE 1 GM in DEXTROSE 5%-WATER - 50 ML IVPB SCH (10:38)
[2020-05-09] MEDS: FLUCONAZOLE 200 MG/NS 100 ML IVPB SCH (12:07)
[2020-05-09] MEDS: traMADol HCL 50 MG TABLET PO PRN ×2 (12:47→20:05)
[2020-05-09] MEDS: ACETAMINOPHEN 325 MG TABLET (FP) PO PRN ×2 (15:44→21:57)
[2020-05-09] MEDS: DOCUSATE SODIUM 100 MG CAPSULE (FP) PO SCH (21:56)
[2020-05-09] MEDS: ROSUVASTATIN CA 20 MG TABLET PO SCH (21:56)
[2020-05-09] MEDS: GABAPENTIN 300 MG CAPSULE PO SCH (21:57)
[2020-05-09] MEDS: LIDOCAINE PATCH REMOVAL MC SCH (21:57)
[2020-05-09] MEDS: SENNOSIDES 8.6MG TABLET (FP) PO SCH (22:23)
[2020-05-10 06:53] LABS: BASO % 0.8 % (0-2.0); EOS % 2.8 % (0-4.5); HEMATOCRIT 29.2 % (35.4-49); HEMOGLOBIN 9.4 GM/dL (11.7-16.9); LYMPH % 26.7 % (8-40); MCH 25.2 pg (25.7-33.7); MCHC 32.3 g/dl (32.0-35.9); MONO % 5.7 % (3.8-10.2); PLATELET COUNT 203 K/MM3 (134-434); RBC 3.75 M/mm3 (4.00-5.60); WHITE BLOOD COUNT 6.1 K/mm3 (4.0-10.0)
[2020-05-10] MEDS: INSULIN SLIDING SCALE (NOVOLOG) 1 VIAL SQ SCH ×4 (07:00→21:47)
[2020-05-10 07:15] LABS: ALBUMIN 2.1 g/dl (3.4-5.0); BLOOD UREA NITROGEN 14.6 mg/dL (7-18); MAGNESIUM 1.7 mg/dL (1.8-2.4)
[2020-05-10 07:18] LABS: CREATININE 0.8 mg/dL (0.55-1.3)
[2020-05-10 07:20] LABS: BILIRUBIN,TOTAL 0.2 mg/dL (0.2-1); TOT PROT 5.8 g/dl (6.4-8.2)
[2020-05-10] MEDS ORDERED: DEXTROSE 5%-WATER - 50 ML IVPB ONE (09:42)
[2020-05-10] MEDS ORDERED: cefTRIAXone SODIUM 1 GM VIAL ONE (09:42)
[2020-05-10] MEDS ORDERED: PT OWN MED DRAWER 7, Y5N ONE ×2 (10:01→21:04)
[2020-05-10] MEDS: AMINO ACIDS/PROTEIN HYDROLYS 30 ML LIQUID.PKT PO SCH (10:08)
[2020-05-10] MEDS: LIDOCAINE 5% TOPICAL PATCH TP SCH (10:08)
[2020-05-10] MEDS: TAMSULOSIN HCL 0.4 MG CAP PO SCH (10:09)
[2020-05-10] MEDS: FLUCONAZOLE 200 MG/NS 100 ML IVPB SCH (10:09)
[2020-05-10] MEDS: traMADol HCL 50 MG TABLET PO PRN (10:09)
[2020-05-10] MEDS: CARVEDILOL 3.125 MG TABLET (FP) PO SCH ×2 (10:10→21:32)
[2020-05-10] MEDS: SACUBITRIL/VALSARTAN 24 MG-26 MG TABLET PO SCH ×2 (10:11→21:33)
[2020-05-10] MEDS: MAGNESIUM OXIDE 400 MG TABLET (FP) PO SCH ×2 (10:11→21:33)
[2020-05-10] MEDS: ASPIRIN 81 MG CHEWABLE TABLETS PO SCH (10:11)
[2020-05-10] MEDS: ESCITALOPRAM OXALATE 20 MG TABLET PO SCH (10:11)
[2020-05-10] MEDS: FUROSEMIDE 20 MG TABLET (FP) PO SCH (10:11)
[2020-05-10] MEDS: POLYETHYLENE GLYCOL 3350 119 GM BTL PO SCH ×2 (10:12→21:37)
[2020-05-10] MEDS: BUDESONIDE/FORMETEROL FUMARATE 160/4.5 mcg INHALER IH SCH ×2 (10:12→21:50)
[2020-05-10] MEDS ORDERED: MAGNESIUM OXIDE 400 MG TABLET (FP) PO ONE (10:15)
[2020-05-10] MEDS: CEFTRIAXONE 1 GM in DEXTROSE 5%-WATER - 50 ML IVPB SCH (12:10)
[2020-05-10] MEDS: ROSUVASTATIN CA 20 MG TABLET PO SCH (21:32)
[2020-05-10] MEDS: MELATONIN 1 MG TABLET PO SCH (21:36)
[2020-05-10] MEDS: SENNOSIDES 8.6MG TABLET (FP) PO SCH (21:37)
[2020-05-10] MEDS: ACETAMINOPHEN 325 MG TABLET (FP) PO PRN (21:37)
[2020-05-10] MEDS: GABAPENTIN 300 MG CAPSULE PO SCH (21:37)
[2020-05-10] MEDS: DEXTROSE 5%-NORMAL SALINE 1,000 ML IV SCH (21:46)
[2020-05-10] MEDS: DOCUSATE SODIUM 100 MG CAPSULE (FP) PO SCH (21:47)
[2020-05-10] MEDS: LIDOCAINE PATCH REMOVAL MC SCH (21:50)
[2020-05-11] MEDS: INSULIN SLIDING SCALE (NOVOLOG) 1 VIAL SQ SCH ×4 (06:17→21:39)
[2020-05-11 08:37] LABS: BASO % 0.8 % (0-2.0); EOS % 3.8 % (0-4.5); HEMATOCRIT 29.4 % (35.4-49); HEMOGLOBIN 9.6 GM/dL (11.7-16.9); LYMPH % 26.1 % (8-40); MCH 25.3 pg (25.7-33.7); MCHC 32.8 g/dl (32.0-35.9); MEAN CELL VOLUME 77.2 fl (80-96); MEAN PLT VOLUME 7.9 fl (7.5-11.1); MONO % 5.3 % (3.8-10.2); PLATELET COUNT 209 K/MM3 (134-434); RBC 3.81 M/mm3 (4.00-5.60); RDW 18.6 % (11.9-15.9); WHITE BLOOD COUNT 5.4 K/mm3 (4.0-10.0)
[2020-05-11] MEDS ORDERED: DEXTROSE 5%-WATER - 50 ML IVPB ONE (08:41)
[2020-05-11] MEDS ORDERED: cefTRIAXone SODIUM 1 GM VIAL ONE (08:41)
[2020-05-11 09:05] LABS: MAGNESIUM 1.8 mg/dL (1.8-2.4)
[2020-05-11 09:06] LABS: CALCIUM 8.3 mg/dL (8.5-10.1)
[2020-05-11 09:07] LABS: ALBUMIN 2.1 g/dl (3.4-5.0); BLOOD UREA NITROGEN 15.3 mg/dL (7-18)
[2020-05-11 09:09] LABS: CREATININE 0.8 mg/dL (0.55-1.3)
[2020-05-11 09:11] LABS: BILIRUBIN,TOTAL 0.1 mg/dL (0.2-1); TOT PROT 5.9 g/dl (6.4-8.2)
[2020-05-11] MEDS: MAGNESIUM OXIDE 400 MG TABLET (FP) PO SCH ×2 (09:47→21:39)
[2020-05-11] MEDS: ESCITALOPRAM OXALATE 20 MG TABLET PO SCH (09:47)
[2020-05-11] MEDS: TAMSULOSIN HCL 0.4 MG CAP PO SCH (09:47)
[2020-05-11] MEDS: AMINO ACIDS/PROTEIN HYDROLYS 30 ML LIQUID.PKT PO SCH (09:47)
[2020-05-11] MEDS: ASPIRIN 81 MG CHEWABLE TABLETS PO SCH (09:47)
[2020-05-11] MEDS: BUDESONIDE/FORMETEROL FUMARATE 160/4.5 mcg INHALER IH SCH ×2 (09:48→21:41)
[2020-05-11] MEDS: LIDOCAINE 5% TOPICAL PATCH TP SCH (09:48)
[2020-05-11] MEDS: CEFTRIAXONE 1 GM in DEXTROSE 5%-WATER - 50 ML IVPB SCH (09:48)
[2020-05-11] MEDS: POLYETHYLENE GLYCOL 3350 119 GM BTL PO SCH ×2 (09:48→21:40)
[2020-05-11] MEDS: FLUCONAZOLE 200 MG/NS 100 ML IVPB SCH (09:49)
[2020-05-11] MEDS: CARVEDILOL 3.125 MG TABLET (FP) PO SCH ×2 (09:56→21:39)
[2020-05-11] MEDS: SACUBITRIL/VALSARTAN 24 MG-26 MG TABLET PO SCH ×2 (09:56→21:38)
[2020-05-11] MEDS: FUROSEMIDE 20 MG TABLET (FP) PO SCH (09:56)
[2020-05-11] MEDS: ACETAMINOPHEN 325 MG TABLET (FP) PO PRN ×2 (10:01→17:32)
[2020-05-11] MEDS: guaiFENesin/D-METHORPHAN HB 10 ML UNIT-DOSE CUPS PO PRN (11:57)
[2020-05-11] MEDS ORDERED: PT OWN MED DRAWER 7, Y5N ONE (21:05)
[2020-05-11] MEDS: SENNOSIDES 8.6MG TABLET (FP) PO SCH (21:38)
[2020-05-11] MEDS: MELATONIN 1 MG TABLET PO SCH (21:38)
[2020-05-11] MEDS: GABAPENTIN 300 MG CAPSULE PO SCH (21:39)
[2020-05-11] MEDS: ROSUVASTATIN CA 20 MG TABLET PO SCH (21:39)
[2020-05-11] MEDS: LIDOCAINE PATCH REMOVAL MC SCH (21:40)
[2020-05-11] MEDS: DOCUSATE SODIUM 100 MG CAPSULE (FP) PO SCH (21:43)
[2020-05-12] MEDS: INSULIN SLIDING SCALE (NOVOLOG) 1 VIAL SQ SCH ×5 (06:35→21:19)
[2020-05-12 07:14] LABS: BASO % 0.8 % (0-2.0); EOS % 4.3 % (0-4.5); HEMATOCRIT 29.2 % (35.4-49); HEMOGLOBIN 9.6 GM/dL (11.7-16.9); LYMPH % 27.5 % (8-40); MCH 25.7 pg (25.7-33.7); MCHC 32.9 g/dl (32.0-35.9); MEAN CELL VOLUME 78.1 fl (80-96); MEAN PLT VOLUME 7.9 fl (7.5-11.1); MONO % 5.6 % (3.8-10.2); NEUT % 61.8 % (42.8-82.8); PLATELET COUNT 191 K/MM3 (134-434); RBC 3.74 M/mm3 (4.00-5.60); WHITE BLOOD COUNT 5.2 K/mm3 (4.0-10.0)
[2020-05-12 07:35] LABS: CALCIUM 8.2 mg/dL (8.5-10.1)
[2020-05-12 07:36] LABS: ALBUMIN 2.2 g/dl (3.4-5.0); BLOOD UREA NITROGEN 19.5 mg/dL (7-18); MAGNESIUM 1.7 mg/dL (1.8-2.4)
[2020-05-12 07:39] LABS: CREATININE 0.8 mg/dL (0.55-1.3)
[2020-05-12 07:41] LABS: BILIRUBIN,TOTAL 0.3 mg/dL (0.2-1)
[2020-05-12] MEDS ORDERED: PT OWN MED DRAWER 7, Y5N ONE (10:01)
[2020-05-12] MEDS ORDERED: DEXTROSE 5%-WATER - 50 ML IVPB ONE (10:01)
[2020-05-12] MEDS ORDERED: cefTRIAXone SODIUM 1 GM VIAL ONE (10:01)
[2020-05-12] MEDS: CEFTRIAXONE 1 GM in DEXTROSE 5%-WATER - 50 ML IVPB SCH (10:07)
[2020-05-12] MEDS: AMINO ACIDS/PROTEIN HYDROLYS 30 ML LIQUID.PKT PO SCH (10:07)
[2020-05-12] MEDS: FLUCONAZOLE 200 MG/NS 100 ML IVPB SCH (10:11)
[2020-05-12] MEDS: ASPIRIN 81 MG CHEWABLE TABLETS PO SCH (10:12)
[2020-05-12] MEDS: ESCITALOPRAM OXALATE 20 MG TABLET PO SCH (10:12)
[2020-05-12] MEDS: TAMSULOSIN HCL 0.4 MG CAP PO SCH (10:12)
[2020-05-12] MEDS: FUROSEMIDE 20 MG TABLET (FP) PO SCH (10:12)
[2020-05-12] MEDS: CARVEDILOL 3.125 MG TABLET (FP) PO SCH ×2 (10:12→21:14)
[2020-05-12] MEDS: MAGNESIUM OXIDE 400 MG TABLET (FP) PO SCH ×2 (10:12→21:15)
[2020-05-12] MEDS: BUDESONIDE/FORMETEROL FUMARATE 160/4.5 mcg INHALER IH SCH ×2 (10:13→21:37)
[2020-05-12] MEDS: LIDOCAINE 5% TOPICAL PATCH TP SCH (10:13)
[2020-05-12] MEDS: SACUBITRIL/VALSARTAN 24 MG-26 MG TABLET PO SCH ×2 (10:13→23:00)
[2020-05-12] MEDS: ACETAMINOPHEN 325 MG TABLET (FP) PO PRN ×2 (10:35→21:36)
[2020-05-12] MEDS: POLYETHYLENE GLYCOL 3350 119 GM BTL PO SCH ×2 (10:35→21:15)
[2020-05-12] MEDS: guaiFENesin/D-METHORPHAN HB 10 ML UNIT-DOSE CUPS PO PRN ×2 (11:44→21:22)
[2020-05-12] MEDS: DOCUSATE SODIUM 100 MG CAPSULE (FP) PO SCH (21:14)
[2020-05-12] MEDS: ROSUVASTATIN CA 20 MG TABLET PO SCH (21:14)
[2020-05-12] MEDS: GABAPENTIN 300 MG CAPSULE PO SCH (21:15)
[2020-05-12] MEDS: LIDOCAINE PATCH REMOVAL MC SCH (21:15)
[2020-05-12] MEDS: MELATONIN 1 MG TABLET PO SCH (21:15)
[2020-05-12] MEDS: SENNOSIDES 8.6MG TABLET (FP) PO SCH (21:16)
[2020-05-13] MEDS: INSULIN SLIDING SCALE (NOVOLOG) 1 VIAL SQ SCH ×4 (07:12→23:27)
[2020-05-13] MEDS: ACETAMINOPHEN 325 MG TABLET (FP) PO PRN ×2 (07:13→16:37)
[2020-05-13 08:17] LABS: BASO % 0.6 % (0-2.0); EOS % 3.2 % (0-4.5); HEMATOCRIT 30.2 % (35.4-49); LYMPH % 21.5 % (8-40); MCH 25.8 pg (25.7-33.7); MEAN CELL VOLUME 78.1 fl (80-96); MEAN PLT VOLUME 7.9 fl (7.5-11.1); MONO % 5.8 % (3.8-10.2); NEUT % 68.9 % (42.8-82.8); PLATELET COUNT 216 K/MM3 (134-434); RBC 3.86 M/mm3 (4.00-5.60); RDW 19.4 % (11.9-15.9)
[2020-05-13 08:21] LABS: INR 1.09 (0.83-1.09); PROTHROMBIN TIME (PATIENT) 13.1 SEC (9.7-13.0)
[2020-05-13 08:41] LABS: CALCIUM 8.6 mg/dL (8.5-10.1)
[2020-05-13 08:42] LABS: ALBUMIN 2.4 g/dl (3.4-5.0); BLOOD UREA NITROGEN 23.7 mg/dL (7-18); MAGNESIUM 1.9 mg/dL (1.8-2.4)
[2020-05-13 08:47] LABS: BILIRUBIN,TOTAL 0.3 mg/dL (0.2-1); TOT PROT 6.4 g/dl (6.4-8.2)
[2020-05-13] MEDS ORDERED: ESCITALOPRAM OXALATE 10 MG TABLET ONE (10:14)
[2020-05-13] MEDS ORDERED: cefTRIAXone SODIUM 1 GM VIAL ONE (10:15)
[2020-05-13] MEDS ORDERED: DEXTROSE 5%-WATER - 50 ML IVPB ONE (10:15)
[2020-05-13] MEDS ORDERED: PT OWN MED DRAWER 7, Y5N ONE ×2 (10:15→22:19)
[2020-05-13] MEDS: LIDOCAINE 5% TOPICAL PATCH TP SCH (10:36)
[2020-05-13] MEDS: AMINO ACIDS/PROTEIN HYDROLYS 30 ML LIQUID.PKT PO SCH (10:37)
[2020-05-13] MEDS: CEFTRIAXONE 1 GM in DEXTROSE 5%-WATER - 50 ML IVPB SCH (10:37)
[2020-05-13] MEDS: FLUCONAZOLE 200 MG/NS 100 ML IVPB SCH (10:37)
[2020-05-13] MEDS: FUROSEMIDE 20 MG TABLET (FP) PO SCH (10:39)
[2020-05-13] MEDS: MAGNESIUM OXIDE 400 MG TABLET (FP) PO SCH ×2 (10:40→23:03)
[2020-05-13] MEDS: TAMSULOSIN HCL 0.4 MG CAP PO SCH (10:40)
[2020-05-13] MEDS: oxyCODONE HCL 5 MG TABLET PO PRN ×3 (10:40→23:57)
[2020-05-13] MEDS: CARVEDILOL 3.125 MG TABLET (FP) PO SCH ×2 (10:41→23:04)
[2020-05-13] MEDS: POLYETHYLENE GLYCOL 3350 119 GM BTL PO SCH ×2 (11:13→23:24)
[2020-05-13] MEDS: BUDESONIDE/FORMETEROL FUMARATE 160/4.5 mcg INHALER IH SCH ×2 (11:15→23:28)
[2020-05-13] MEDS: SACUBITRIL/VALSARTAN 24 MG-26 MG TABLET PO SCH (11:16)
[2020-05-13] MEDS: ESCITALOPRAM OXALATE 20 MG TABLET PO SCH (11:16)
[2020-05-13] MEDS: GABAPENTIN 300 MG CAPSULE PO SCH (23:03)
[2020-05-13] MEDS: ROSUVASTATIN CA 20 MG TABLET PO SCH (23:03)
[2020-05-13] MEDS: MELATONIN 1 MG TABLET PO SCH (23:04)
[2020-05-13] MEDS: DOCUSATE SODIUM 100 MG CAPSULE (FP) PO SCH (23:24)
[2020-05-13] MEDS: SENNOSIDES 8.6MG TABLET (FP) PO SCH (23:25)
[2020-05-13] MEDS: LIDOCAINE PATCH REMOVAL MC SCH (23:25)
[2020-05-14] MEDS ORDERED: LACTATED RINGERS SOLUTION 1,000 ML/1,000 ML INFUS.BAG IV SCH (00:01)
[2020-05-14] MEDS ORDERED: SODIUM CHLORIDE 1,000 ML IV SCH (00:01)
[2020-05-14] MEDS: SACUBITRIL/VALSARTAN 24 MG-26 MG TABLET PO SCH ×3 (00:33→21:58)
[2020-05-14] MEDS: INSULIN SLIDING SCALE (NOVOLOG) 1 VIAL SQ SCH ×4 (06:14→22:14)
[2020-05-14 08:26] LABS: HEMATOCRIT 30.2 % (35.4-49); HEMOGLOBIN 9.8 GM/dL (11.7-16.9); WHITE BLOOD COUNT 6.5 K/mm3 (4.0-10.0)
[2020-05-14 08:27] LABS: BASO % 0.8 % (0-2.0); EOS % 3.8 % (0-4.5); LYMPH % 25.2 % (8-40); MCH 25.7 pg (25.7-33.7); MCHC 32.4 g/dl (32.0-35.9); MEAN CELL VOLUME 79.4 fl (80-96); MEAN PLT VOLUME 8.1 fl (7.5-11.1); MONO % 6.3 % (3.8-10.2); NEUT % 63.9 % (42.8-82.8); PLATELET COUNT 192 K/MM3 (134-434); RDW 18.7 % (11.9-15.9)
[2020-05-14 08:31] LABS: INR 1.05 (0.83-1.09); PROTHROMBIN TIME (PATIENT) 12.9 SEC (9.7-13.0)
[2020-05-14 08:33] LABS: ACTIVATED PTT 29.6 SECONDS (25.2-36.5)
[2020-05-14 08:49] LABS: CALCIUM 8.7 mg/dL (8.5-10.1)
[2020-05-14 08:50] LABS: ALBUMIN 2.5 g/dl (3.4-5.0); BLOOD UREA NITROGEN 29.7 mg/dL (7-18); MAGNESIUM 2.2 mg/dL (1.8-2.4)
[2020-05-14 08:53] LABS: CREATININE 1.2 mg/dL (0.55-1.3)
[2020-05-14 08:54] LABS: BILIRUBIN,TOTAL 0.4 mg/dL (0.2-1)
[2020-05-14 08:55] LABS: TOT PROT 6.5 g/dl (6.4-8.2)
[2020-05-14] MEDS: TAMSULOSIN HCL 0.4 MG CAP PO SCH (10:15)
[2020-05-14] MEDS: AMINO ACIDS/PROTEIN HYDROLYS 30 ML LIQUID.PKT PO SCH (10:15)
[2020-05-14] MEDS ORDERED: DEXTROSE 5%-WATER - 50 ML IVPB ONE (10:16)
[2020-05-14] MEDS ORDERED: cefTRIAXone SODIUM 1 GM VIAL ONE (10:16)
[2020-05-14] MEDS: CEFTRIAXONE 1 GM in DEXTROSE 5%-WATER - 50 ML IVPB SCH (10:17)
[2020-05-14] MEDS ORDERED: PT OWN MED DRAWER 7, Y5N ONE ×2 (10:32→21:52)
[2020-05-14] MEDS: MAGNESIUM OXIDE 400 MG TABLET (FP) PO SCH ×2 (10:33→21:57)
[2020-05-14] MEDS: ESCITALOPRAM OXALATE 20 MG TABLET PO SCH (10:33)
[2020-05-14] MEDS: LIDOCAINE 5% TOPICAL PATCH TP SCH (10:33)
[2020-05-14] MEDS: FUROSEMIDE 20 MG TABLET (FP) PO SCH (10:33)
[2020-05-14] MEDS: FLUCONAZOLE 200 MG/NS 100 ML IVPB SCH (10:33)
[2020-05-14] MEDS: CARVEDILOL 3.125 MG TABLET (FP) PO SCH ×2 (10:33→21:57)
[2020-05-14] MEDS: POLYETHYLENE GLYCOL 3350 119 GM BTL PO SCH ×2 (10:34→21:56)
[2020-05-14] MEDS: BUDESONIDE/FORMETEROL FUMARATE 160/4.5 mcg INHALER IH SCH ×2 (10:35→21:59)
[2020-05-14 13:44] VITALS: BMI 21.5
[2020-05-14] MEDS ORDERED: SUCCINYLCHOLINE CHLORIDE 200 MG/10 ML SYRINGE ONE (16:29)
[2020-05-14] MEDS ORDERED: MIDAZOLAM HCL 2 MG/2 ML SINGLE DOSE VIAL ONE (16:29)
[2020-05-14] MEDS ORDERED: ceFAZolin SODIUM 1 GM VIAL ONE (16:43)
[2020-05-14] MEDS ORDERED: ceFAZolin SODIUM 1 GM VIAL IVPB ONE (16:43)
[2020-05-14] MEDS ORDERED: CEFAZOLIN 1 GM in DEXTROSE 5%-WATER - 50 ML IVPB SCH (18:00)
[2020-05-14] MEDS ORDERED: guaiFENesin/D-METHORPHAN HB 10 ML UNIT-DOSE CUPS PO PRN (18:27)
[2020-05-14] MEDS: SODIUM CHLORIDE 1,000 ML IV SCH ×2 (21:55→21:59)
[2020-05-14] MEDS: DOCUSATE SODIUM 100 MG CAPSULE (FP) PO SCH (21:56)
[2020-05-14] MEDS: MELATONIN 1 MG TABLET PO SCH (21:56)
[2020-05-14] MEDS: ROSUVASTATIN CA 20 MG TABLET PO SCH (21:57)
[2020-05-14] MEDS: GABAPENTIN 300 MG CAPSULE PO SCH (21:57)
[2020-05-14] MEDS: SENNOSIDES 8.6MG TABLET (FP) PO SCH (21:58)
[2020-05-14] MEDS: LIDOCAINE PATCH REMOVAL MC SCH (21:58)
[2020-05-14] MEDS ORDERED: LIDOCAINE PATCH REMOVAL MC SCH (22:00)
[2020-05-14] MEDS: oxyCODONE HCL 5 MG TABLET PO PRN (22:04)
[2020-05-15] MEDS: INSULIN SLIDING SCALE (NOVOLOG) 1 VIAL SQ SCH ×4 (06:28→22:05)
[2020-05-15] MEDS: AMINO ACIDS/PROTEIN HYDROLYS 30 ML LIQUID.PKT PO SCH (08:34)
[2020-05-15] MEDS: TAMSULOSIN HCL 0.4 MG CAP PO SCH (08:34)
[2020-05-15 08:49] LABS: BASO % 0.2 % (0-2.0); EOS % 0.6 % (0-4.5); HEMATOCRIT 30.3 % (35.4-49); HEMOGLOBIN 10.1 GM/dL (11.7-16.9); MCH 26.1 pg (25.7-33.7); MCHC 33.3 g/dl (32.0-35.9); MEAN CELL VOLUME 78.5 fl (80-96); MEAN PLT VOLUME 7.9 fl (7.5-11.1); MONO % 4.8 % (3.8-10.2); NEUT % 83.4 % (42.8-82.8); PLATELET COUNT 209 K/MM3 (134-434); RBC 3.87 M/mm3 (4.00-5.60); RDW 19.2 % (11.9-15.9); WHITE BLOOD COUNT 9.4 K/mm3 (4.0-10.0)
[2020-05-15 09:10] LABS: CALCIUM 8.6 mg/dL (8.5-10.1)
[2020-05-15 09:11] LABS: ALBUMIN 2.4 g/dl (3.4-5.0); BLOOD UREA NITROGEN 26.3 mg/dL (7-18); MAGNESIUM 2.2 mg/dL (1.8-2.4)
[2020-05-15] MEDS ORDERED: ESCITALOPRAM OXALATE 10 MG TABLET ONE (09:11)
[2020-05-15] MEDS ORDERED: cefTRIAXone SODIUM 1 GM VIAL ONE (09:12)
[2020-05-15] MEDS ORDERED: DEXTROSE 5%-WATER - 50 ML IVPB ONE (09:12)
[2020-05-15] MEDS ORDERED: PT OWN MED DRAWER 7, Y5N ONE ×5 (09:12→23:26)
[2020-05-15 09:15] LABS: BILIRUBIN,TOTAL 0.6 mg/dL (0.2-1); TOT PROT 6.6 g/dl (6.4-8.2)
[2020-05-15] MEDS: CARVEDILOL 3.125 MG TABLET (FP) PO SCH ×2 (09:22→21:51)
[2020-05-15] MEDS: SACUBITRIL/VALSARTAN 24 MG-26 MG TABLET PO SCH ×2 (09:22→21:54)
[2020-05-15] MEDS: ESCITALOPRAM OXALATE 20 MG TABLET PO SCH (09:23)
[2020-05-15] MEDS: MAGNESIUM OXIDE 400 MG TABLET (FP) PO SCH ×2 (09:23→21:51)
[2020-05-15] MEDS: MULTIVITAMINS (DAILY MVI) TABLET (FP) PO SCH (09:24)
[2020-05-15] MEDS: CEFTRIAXONE 1 GM in DEXTROSE 5%-WATER - 50 ML IVPB SCH (09:25)
[2020-05-15] MEDS: BUDESONIDE/FORMETEROL FUMARATE 160/4.5 mcg INHALER IH SCH ×2 (09:25→21:52)
[2020-05-15] MEDS: LIDOCAINE 5% TOPICAL PATCH TP SCH (09:26)
[2020-05-15] MEDS: POLYETHYLENE GLYCOL 3350 119 GM BTL PO SCH ×2 (09:30→22:53)
[2020-05-15] MEDS: FUROSEMIDE 20 MG TABLET (FP) PO SCH (09:31)
[2020-05-15] MEDS ORDERED: MULTIVITAMINS (DAILY MVI) TABLET (FP) PO SCH (10:00)
[2020-05-15] MEDS: FLUCONAZOLE 200 MG/NS 100 ML IVPB SCH (10:50)
[2020-05-15] MEDS: COLLAGENASE CLOSTRIDIUM HIST. 30 GRAMS TUBE TP SCH (16:01)
[2020-05-15] MEDS: SODIUM CHLORIDE 1,000 ML IV SCH (17:54)
[2020-05-15] MEDS: GABAPENTIN 300 MG CAPSULE PO SCH (21:50)
[2020-05-15] MEDS: ROSUVASTATIN CA 20 MG TABLET PO SCH (21:50)
[2020-05-15] MEDS: MELATONIN 1 MG TABLET PO SCH (21:50)
[2020-05-15] MEDS: DOCUSATE SODIUM 100 MG CAPSULE (FP) PO SCH (21:51)
[2020-05-15] MEDS: SENNOSIDES 8.6MG TABLET (FP) PO SCH (21:54)
[2020-05-15] MEDS: LIDOCAINE PATCH REMOVAL MC SCH (22:53)
[2020-05-16] MEDS: INSULIN SLIDING SCALE (NOVOLOG) 1 VIAL SQ SCH ×4 (06:12→21:14)
[2020-05-16 08:49] LABS: BASO % 0.5 % (0-2.0); EOS % 1.6 % (0-4.5); HEMATOCRIT 26.3 % (35.4-49); HEMOGLOBIN 8.8 GM/dL (11.7-16.9); MCH 26.4 pg (25.7-33.7); MCHC 33.3 g/dl (32.0-35.9); MEAN CELL VOLUME 79.3 fl (80-96); MEAN PLT VOLUME 8.5 fl (7.5-11.1); MONO % 7.2 % (3.8-10.2); NEUT % 71.7 % (42.8-82.8); PLATELET COUNT 157 K/MM3 (134-434); RBC 3.32 M/mm3 (4.00-5.60); RDW 19.9 % (11.9-15.9); WHITE BLOOD COUNT 6.8 K/mm3 (4.0-10.0)
[2020-05-16 09:03] LABS: ALBUMIN 2.3 g/dl (3.4-5.0); BLOOD UREA NITROGEN 26.5 mg/dL (7-18); CALCIUM 8.4 mg/dL (8.5-10.1); MAGNESIUM 2.3 mg/dL (1.8-2.4)
[2020-05-16 09:07] LABS: BILIRUBIN,TOTAL 0.4 mg/dL (0.2-1)
[2020-05-16] MEDS ORDERED: PT OWN MED DRAWER 7, Y5N ONE ×5 (09:07→21:47)
[2020-05-16] MEDS ORDERED: cefTRIAXone SODIUM 1 GM VIAL ONE (09:07)
[2020-05-16] MEDS ORDERED: DEXTROSE 5%-WATER - 50 ML IVPB ONE (09:07)
[2020-05-16] MEDS ORDERED: ESCITALOPRAM OXALATE 10 MG TABLET ONE (09:07)
[2020-05-16 09:08] LABS: TOT PROT 6.2 g/dl (6.4-8.2)
[2020-05-16] MEDS: oxyCODONE HCL 5 MG TABLET PO PRN ×2 (09:17→19:07)
[2020-05-16] MEDS: AMINO ACIDS/PROTEIN HYDROLYS 30 ML LIQUID.PKT PO SCH (09:17)
[2020-05-16] MEDS: MAGNESIUM OXIDE 400 MG TABLET (FP) PO SCH ×2 (09:18→21:06)
[2020-05-16] MEDS: TAMSULOSIN HCL 0.4 MG CAP PO SCH (09:18)
[2020-05-16] MEDS: ACETAMINOPHEN 325 MG TABLET (FP) PO PRN ×2 (09:18→19:07)
[2020-05-16] MEDS: ESCITALOPRAM OXALATE 20 MG TABLET PO SCH (09:18)
[2020-05-16] MEDS: POLYETHYLENE GLYCOL 3350 119 GM BTL PO SCH ×2 (09:19→21:07)
[2020-05-16] MEDS: LIDOCAINE 5% TOPICAL PATCH TP SCH (09:19)
[2020-05-16] MEDS: FUROSEMIDE 20 MG TABLET (FP) PO SCH (09:20)
[2020-05-16] MEDS: SACUBITRIL/VALSARTAN 24 MG-26 MG TABLET PO SCH ×2 (09:20→21:50)
[2020-05-16] MEDS: CARVEDILOL 3.125 MG TABLET (FP) PO SCH ×2 (09:20→21:07)
[2020-05-16] MEDS: CEFTRIAXONE 1 GM in DEXTROSE 5%-WATER - 50 ML IVPB SCH (09:21)
[2020-05-16] MEDS: BUDESONIDE/FORMETEROL FUMARATE 160/4.5 mcg INHALER IH SCH ×2 (09:26→21:07)
[2020-05-16] MEDS: MULTIVITAMINS (DAILY MVI) TABLET (FP) PO SCH (09:27)
[2020-05-16] MEDS: COLLAGENASE CLOSTRIDIUM HIST. 30 GRAMS TUBE TP SCH (09:27)
[2020-05-16] MEDS: FLUCONAZOLE 200 MG/NS 100 ML IVPB SCH (10:32)
[2020-05-16] MEDS: CLOPIDOGREL BISULFATE 75 MG TABLET (FP) PO SCH (14:45)
[2020-05-16] MEDS: SODIUM CHLORIDE 1,000 ML IV SCH ×2 (17:17→18:41)
[2020-05-16] MEDS: MELATONIN 1 MG TABLET PO SCH (21:06)
[2020-05-16] MEDS: GABAPENTIN 300 MG CAPSULE PO SCH (21:06)
[2020-05-16] MEDS: ROSUVASTATIN CA 20 MG TABLET PO SCH (21:06)
[2020-05-16] MEDS: LIDOCAINE PATCH REMOVAL MC SCH (21:07)
[2020-05-16] MEDS: SENNOSIDES 8.6MG TABLET (FP) PO SCH (21:07)
[2020-05-16] MEDS: DOCUSATE SODIUM 100 MG CAPSULE (FP) PO SCH (21:07)
[2020-05-17] MEDS: INSULIN SLIDING SCALE (NOVOLOG) 1 VIAL SQ SCH ×3 (06:04→16:12)
[2020-05-17] MEDS: AMINO ACIDS/PROTEIN HYDROLYS 30 ML LIQUID.PKT PO SCH (08:18)
[2020-05-17] MEDS: TAMSULOSIN HCL 0.4 MG CAP PO SCH (08:18)
[2020-05-17] MEDS ORDERED: ESCITALOPRAM OXALATE 10 MG TABLET ONE (09:39)
[2020-05-17] MEDS ORDERED: DEXTROSE 5%-WATER - 50 ML IVPB ONE (09:40)
[2020-05-17] MEDS ORDERED: cefTRIAXone SODIUM 1 GM VIAL ONE (09:40)
[2020-05-17] MEDS ORDERED: PT OWN MED DRAWER 7, Y5N ONE ×4 (09:40→17:31)
[2020-05-17] MEDS: oxyCODONE HCL 5 MG TABLET PO PRN (09:44)
[2020-05-17] MEDS: ACETAMINOPHEN 325 MG TABLET (FP) PO PRN (09:45)
[2020-05-17] MEDS: CARVEDILOL 3.125 MG TABLET (FP) PO SCH (09:49)
[2020-05-17] MEDS: MAGNESIUM OXIDE 400 MG TABLET (FP) PO SCH (09:50)
[2020-05-17] MEDS: SACUBITRIL/VALSARTAN 24 MG-26 MG TABLET PO SCH (09:50)
[2020-05-17] MEDS: ESCITALOPRAM OXALATE 20 MG TABLET PO SCH (09:50)
[2020-05-17] MEDS: CLOPIDOGREL BISULFATE 75 MG TABLET (FP) PO SCH (09:51)
[2020-05-17] MEDS: POLYETHYLENE GLYCOL 3350 119 GM BTL PO SCH (09:51)
[2020-05-17] MEDS: MULTIVITAMINS (DAILY MVI) TABLET (FP) PO SCH (09:52)
[2020-05-17] MEDS: FLUCONAZOLE 200 MG/NS 100 ML IVPB SCH (09:52)
[2020-05-17] MEDS: BUDESONIDE/FORMETEROL FUMARATE 160/4.5 mcg INHALER IH SCH (09:53)
[2020-05-17] MEDS: LIDOCAINE 5% TOPICAL PATCH TP SCH (09:53)
[2020-05-17 10:11] LABS: BASO % 0.7 % (0-2.0); EOS % 3.4 % (0-4.5); HEMATOCRIT 28.2 % (35.4-49); HEMOGLOBIN 9.2 GM/dL (11.7-16.9); LYMPH % 18.1 % (8-40); MCH 26.1 pg (25.7-33.7); MCHC 32.8 g/dl (32.0-35.9); MEAN CELL VOLUME 79.5 fl (80-96); MEAN PLT VOLUME 8.2 fl (7.5-11.1); MONO % 6.4 % (3.8-10.2); NEUT % 71.4 % (42.8-82.8); PLATELET COUNT 159 K/MM3 (134-434); RBC 3.55 M/mm3 (4.00-5.60); RDW 19.6 % (11.9-15.9); WHITE BLOOD COUNT 5.3 K/mm3 (4.0-10.0)
[2020-05-17 10:25] LABS: ALBUMIN 2.2 g/dl (3.4-5.0); BLOOD UREA NITROGEN 25.1 mg/dL (7-18)
[2020-05-17 10:29] LABS: TOT PROT 6.3 g/dl (6.4-8.2)
[2020-05-17] MEDS: FUROSEMIDE 20 MG TABLET (FP) PO SCH (10:39)
[2020-05-17 10:42] LABS: BILIRUBIN,TOTAL 0.5 mg/dL (0.2-1); MAGNESIUM 1.8 mg/dL (1.8-2.4)
[2020-05-17] MEDS: CEFTRIAXONE 1 GM in DEXTROSE 5%-WATER - 50 ML IVPB SCH (10:57)
[2020-05-17] MEDS: COLLAGENASE CLOSTRIDIUM HIST. 30 GRAMS TUBE TP SCH (13:01)
[2020-05-17 15:53] VITALS: BP 117/55; PULSE 64; TEMP 98.4
[2020-05-17] MEDS: SODIUM CHLORIDE 1,000 ML IV SCH (19:24)
== END 2020-05-17 21:24 | disposition home or self-care (01) | DRG 665 ==
LOC: JER 14:56 → JERBED 18:27 → J7W 23:51 → J4W 05-01 20:43 → J8W 05-12 15:39
PROVIDERS: ADMIT Internal Medicine; ATTEND Nurse Practitioner Family
PROC: 0V507ZZ Destruction of Prostate, Via Natural or Artificial Opening (ICD-10-PCS; principal; 2020-05-14)
PROC: 0TC78ZZ Extirpation of Matter from Left Ureter, Via Natural or Artificial Opening Endoscopic (ICD-10-PCS; 2020-05-14)
PROC: 0TC68ZZ Extirpation of Matter from Right Ureter, Via Natural or Artificial Opening Endoscopic (ICD-10-PCS; 2020-05-14)
PROC: 0TCB8ZZ Extirpation of Matter from Bladder, Via Natural or Artificial Opening Endoscopic (ICD-10-PCS; 2020-05-14)
DX: N30.01 Acute cystitis with hematuria (principal); G92 Toxic encephalopathy; J69.0 Pneumonitis due to inhalation of food and vomit; J96.01 Acute respiratory failure with hypoxia; I50.32 Chronic diastolic (congestive) heart failure; L97.419 Non-pressure chronic ulcer of right heel and midfoot with unspecified severity; L97.429 Non-pressure chronic ulcer of left heel and midfoot with unspecified severity; R31.9 Hematuria, unspecified; N18.30 Chronic kidney disease, stage 3 unspecified; E11.9 Type 2 diabetes mellitus without complications; K22.0 Achalasia of cardia; Z95.5 Presence of coronary angioplasty implant and graft; R33.9 Retention of urine, unspecified; I25.5 Ischemic cardiomyopathy; J44.9 Chronic obstructive pulmonary disease, unspecified; D64.9 Anemia, unspecified; Z95.1 Presence of aortocoronary bypass graft; W45.8XXA Other foreign body or object entering through skin, initial encounter; Y93.9 Activity, unspecified; Y92.89 Other specified places as the place of occurrence of the external cause; Y99.9 Unspecified external cause status; E78.5 Hyperlipidemia, unspecified
CPT/HCPCS: 36415; 36600; 70450-TC; 71045-TC-FY; 73560-TC-LT-FY; 74178-TC; 76775-TC; 76856-TC; 80048; 80053; 81003; 82550; 82803; 82962; 83735; 84100; 84484; 85025; 85610; 85730; 86850; 86900; 86901; 87040; 87077; 87086; 88300-TC; 88305-TC; 93005; 93010; 94760; 97116-GP; 97161-GP; 99285-25; C9803; J0131; Q9967; U0003

== ENCOUNTER 2020-07-06 06:35 | Inpatient (IN) | payer OTHER, MEDICARE ==
[2020-07-06 07:15] VITALS: BMI 27.3
[2020-07-06] MEDS ORDERED: SODIUM CHLORIDE 0.9% 500 ML INFUS.BAG IV ONE (07:20)
[2020-07-06 10:22] LABS: BASO % 0.3 % (0-2.0); EOS % 0.3 % (0-4.5); HEMATOCRIT 33.7 % (35.4-49); HEMOGLOBIN 10.7 GM/dL (11.7-16.9); LYMPH % 8.5 % (8-40); MCH 26.6 pg (25.7-33.7); MCHC 31.8 g/dl (32.0-35.9); MEAN CELL VOLUME 83.8 fl (80-96); MEAN PLT VOLUME 8.2 fl (7.5-11.1); MONO % 5.1 % (3.8-10.2); NEUT % 85.8 % (42.8-82.8); PLATELET COUNT 193 K/MM3 (134-434); RBC 4.02 M/mm3 (4.00-5.60); RDW 19.2 % (11.9-15.9); WHITE BLOOD COUNT 12.9 K/mm3 (4.0-10.0)
[2020-07-06 10:43] LABS: POTASSIUM 5.2 mmol/L (3.5-5.1)
[2020-07-06 10:45] LABS: BLOOD UREA NITROGEN 39.7 mg/dL (7-18)
[2020-07-06 10:46] LABS: ALBUMIN 3.2 g/dl (3.4-5.0)
[2020-07-06 10:49] LABS: CREATININE 1.4 mg/dL (0.55-1.3)
[2020-07-06 10:50] LABS: TOT PROT 7.7 g/dl (6.4-8.2)
[2020-07-06 10:53] LABS: BILIRUBIN,TOTAL 0.5 mg/dL (0.2-1)
[2020-07-06 12:27] LABS: N-TERMINAL BNP 3783.2 pg/ml (5-450)
[2020-07-06 13:03] LABS: VENOUS BASE EXCESS -6.6 mmol/L (-2-2); VENOUS O2 SATURATION 32.1 % (70-80); VENOUS PH 7.229 (7.310-7.410)
[2020-07-06] MEDS ORDERED: AZITHROMYCIN IVPB 500 MG in DEXTROSE 5%-WATER - 250 ML IVPB ONE (13:14)
[2020-07-06] MEDS ORDERED: ALBUTEROL SO4 HFA INHALER IH PRN (17:37)
[2020-07-06] MEDS ORDERED: SODIUM CHLORIDE 1,000 ML IV SCH (18:00)
[2020-07-06 18:11] LABS: EPI CELLS 8 /uL (0-25.1); HYALINE CASTS 2 /uL (0-3.1); URINE APPEARANCE TURBID; URINE BACTERIA 79 /uL (0-1359); URINE BILIRUBIN NEGATIVE (NEGATIVE); URINE COLOR YELLOW; URINE GLUCOSE (UA) NEGATIVE (NEGATIVE); URINE KETONE NEGATIVE (NEGATIVE); URINE LEUK ESTERASE 3+ (NEGATIVE); URINE NITRITE NEGATIVE (NEGATIVE); URINE PROTEIN 1+ (NEGATIVE); URINE RBC 28 /uL (0-23.9); URINE UROBILINOGEN 0.2 mg/dL (0.2-1.0); URINE WBC 2124 /uL (0-25.8)
[2020-07-06] MEDS ORDERED: SODIUM CHLORIDE 250 ML IV STA (18:22)
[2020-07-06] MEDS: POLYETHYLENE GLYCOL 3350 119 GM BTL PO SCH (18:37)
[2020-07-06 19:14] LABS: YEAST NEGATIVE (NEGATIVE)
[2020-07-06] MEDS ORDERED: PIPERACILLIN/TAZOB 4.5 GM 4.5 GM in DEXTROSE 5%-WATER 100 ML IVPB SCH (21:00)
[2020-07-06] MEDS ORDERED: GABAPENTIN 300 MG CAPSULE PO SCH (22:00)
[2020-07-06] MEDS: PIPERACILLIN/TAZOB 4.5 GM 4.5 GM in DEXTROSE 5%-WATER 100 ML IVPB SCH (23:15)
[2020-07-06] MEDS ORDERED: GABAPENTIN 100 MG CAPSULE ONE (23:26)
[2020-07-06] MEDS ORDERED: PIPERACILLIN/TAZOB 4.5 GM 4.5 GM/100 ML BAG IVPB ONE (23:27)
[2020-07-06] MEDS: LATANOPROST 0.005% OPHTH SOLN 2.5ML BOTTLE OU SCH (23:58)
[2020-07-06] MEDS: BUDESONIDE/FORMETEROL FUMARATE 160/4.5 mcg INHALER IH SCH (23:58)
[2020-07-06] MEDS: ROSUVASTATIN CA 20 MG TABLET (FP) PO SCH (23:59)
[2020-07-07] MEDS: PIPERACILLIN/TAZOB 4.5 GM 4.5 GM in DEXTROSE 5%-WATER 100 ML IVPB SCH ×4 (04:10→22:11)
[2020-07-07] MEDS ORDERED: PIPERACILLIN/TAZOB 4.5 GM 4.5 GM/100 ML BAG IVPB ONE (04:11)
[2020-07-07 08:28] LABS: BASO % 0.6 % (0-2.0); EOS % 2.2 % (0-4.5); HEMATOCRIT 27.5 % (35.4-49); HEMOGLOBIN 9.2 GM/dL (11.7-16.9); LYMPH % 23.2 % (8-40); MCH 27.6 pg (25.7-33.7); MCHC 33.3 g/dl (32.0-35.9); MEAN CELL VOLUME 83.1 fl (80-96); MEAN PLT VOLUME 8.2 fl (7.5-11.1); MONO % 6.2 % (3.8-10.2); NEUT % 67.8 % (42.8-82.8); PLATELET COUNT 144 K/MM3 (134-434); RBC 3.32 M/mm3 (4.00-5.60); RDW 18.6 % (11.9-15.9); WHITE BLOOD COUNT 6.1 K/mm3 (4.0-10.0)
[2020-07-07 08:45] LABS: POTASSIUM 4.4 mmol/L (3.5-5.1)
[2020-07-07 08:53] LABS: ALBUMIN 2.8 g/dl (3.4-5.0); MAGNESIUM 1.8 mg/dL (1.8-2.4)
[2020-07-07 08:54] LABS: CALCIUM 8.5 mg/dL (8.5-10.1)
[2020-07-07 09:14] LABS: CREATININE 1.2 mg/dL (0.55-1.3); TOT PROT 6.6 g/dl (6.4-8.2)
[2020-07-07 09:15] LABS: PHOSPHOROUS 3.1 mg/dL (2.5-4.9)
[2020-07-07 09:16] LABS: BILIRUBIN,TOTAL 0.6 mg/dL (0.2-1)
[2020-07-07] MEDS ORDERED: PIPERACILLIN/TAZOBACTAM 4.5 GM VIAL IVPB ONE ×3 (09:35→22:11)
[2020-07-07] MEDS ORDERED: DEXTROSE 5%-WATER 100 ML IVPB ONE ×3 (09:35→22:11)
[2020-07-07] MEDS ORDERED: PT OWN MED DRAWER 7, Y5N ONE (09:35)
[2020-07-07] MEDS: POLYETHYLENE GLYCOL 3350 119 GM BTL PO SCH (09:44)
[2020-07-07] MEDS: ESCITALOPRAM OXALATE 20 MG TABLET PO SCH (09:44)
[2020-07-07] MEDS: TAMSULOSIN HCL 0.4 MG CAP PO SCH (09:44)
[2020-07-07] MEDS: CLOPIDOGREL BISULFATE 75 MG TABLET (FP) PO SCH (09:44)
[2020-07-07] MEDS ORDERED: FUROSEMIDE 20 MG TABLET (FP) PO SCH (10:00)
[2020-07-07] MEDS: BUDESONIDE/FORMETEROL FUMARATE 160/4.5 mcg INHALER IH SCH ×2 (10:26→22:06)
[2020-07-07] MEDS ORDERED: SODIUM CHLORIDE 1,000 ML IV SCH (15:15)
[2020-07-07] MEDS: ROSUVASTATIN CA 20 MG TABLET (FP) PO SCH (22:05)
[2020-07-07] MEDS: CARVEDILOL 3.125 MG TABLET (FP) PO SCH (22:06)
[2020-07-08] MEDS: LATANOPROST 0.005% OPHTH SOLN 2.5ML BOTTLE OU SCH ×2 (00:01→22:38)
[2020-07-08] MEDS ORDERED: PIPERACILLIN/TAZOBACTAM 4.5 GM VIAL IVPB ONE ×2 (03:07→09:39)
[2020-07-08] MEDS ORDERED: DEXTROSE 5%-WATER 100 ML IVPB ONE ×2 (03:07→09:39)
[2020-07-08] MEDS: PIPERACILLIN/TAZOB 4.5 GM 4.5 GM in DEXTROSE 5%-WATER 100 ML IVPB SCH ×2 (04:35→09:54)
[2020-07-08] MEDS: TAMSULOSIN HCL 0.4 MG CAP PO SCH (09:54)
[2020-07-08] MEDS: CARVEDILOL 3.125 MG TABLET (FP) PO SCH ×2 (09:54→22:36)
[2020-07-08] MEDS: CLOPIDOGREL BISULFATE 75 MG TABLET (FP) PO SCH (09:54)
[2020-07-08] MEDS: BUDESONIDE/FORMETEROL FUMARATE 160/4.5 mcg INHALER IH SCH ×2 (09:54→22:37)
[2020-07-08] MEDS: POLYETHYLENE GLYCOL 3350 119 GM BTL PO SCH (09:54)
[2020-07-08] MEDS: ESCITALOPRAM OXALATE 20 MG TABLET PO SCH (09:54)
[2020-07-08 10:35] LABS: BASO % 0.7 % (0-2.0); EOS % 2.6 % (0-4.5); HEMATOCRIT 27.4 % (35.4-49); HEMOGLOBIN 9.2 GM/dL (11.7-16.9); LYMPH % 18.2 % (8-40); MCH 27.6 pg (25.7-33.7); MCHC 33.7 g/dl (32.0-35.9); MEAN CELL VOLUME 81.9 fl (80-96); MEAN PLT VOLUME 7.3 fl (7.5-11.1); MONO % 6.8 % (3.8-10.2); NEUT % 71.7 % (42.8-82.8); PLATELET COUNT 146 K/MM3 (134-434); RBC 3.34 M/mm3 (4.00-5.60); RDW 18.7 % (11.9-15.9); WHITE BLOOD COUNT 4.8 K/mm3 (4.0-10.0)
[2020-07-08 10:58] LABS: POTASSIUM 4.5 mmol/L (3.5-5.1)
[2020-07-08 11:02] LABS: ALBUMIN 2.8 g/dl (3.4-5.0); CALCIUM 8.6 mg/dL (8.5-10.1); MAGNESIUM 1.8 mg/dL (1.8-2.4)
[2020-07-08 11:05] LABS: CREATININE 1.1 mg/dL (0.55-1.3); PHOSPHOROUS 3.2 mg/dL (2.5-4.9)
[2020-07-08 11:07] LABS: BILIRUBIN,TOTAL 0.5 mg/dL (0.2-1); TOT PROT 6.8 g/dl (6.4-8.2)
[2020-07-08] MEDS: SACUBITRIL/VALSARTAN 24 MG-26 MG TABLET PO SCH ×2 (11:46→22:37)
[2020-07-08] MEDS: INSULIN SLIDING SCALE (NOVOLOG) 1 VIAL SQ SCH ×3 (11:46→22:37)
[2020-07-08] MEDS: LIDOCAINE 5% TOPICAL PATCH TP SCH ×2 (14:00→14:29)
[2020-07-08] MEDS ORDERED: COLLAGENASE CLOSTRIDIUM HIST. 30 GRAMS TUBE TP SCH (14:00)
[2020-07-08] MEDS: oxyCODONE HCL 5 MG TABLET PO PRN ×2 (14:29→22:46)
[2020-07-08] MEDS: ENOXAPARIN NA (PORCINE) 40 MG/0.4 ML DISP.SYRIN SQ SCH (14:33)
[2020-07-08] MEDS ORDERED: DEXTROSE 5%-WATER - 50 ML IVPB ONE (16:18)
[2020-07-08] MEDS ORDERED: PIPERACILLIN/TAZOBACTAM 3.375 GM VIAL IVPB ONE (16:18)
[2020-07-08] MEDS: PIPERACILLIN/TAZOB 3.375 GM 3.375 GM in DEXTROSE 5%-WATER - 50 ML IVPB SCH (17:09)
[2020-07-08] MEDS ORDERED: PT OWN MED DRAWER 7, Y5N ONE (22:15)
[2020-07-08] MEDS: ROSUVASTATIN CA 20 MG TABLET (FP) PO SCH (22:36)
[2020-07-08] MEDS: LIDOCAINE PATCH REMOVAL MC SCH (22:37)
[2020-07-08] MEDS: INSULIN (LEVEMIR) 100 UNITS/ML UNITS SQ SCH (22:37)
[2020-07-09] MEDS ORDERED: PIPERACILLIN/TAZOBACTAM 3.375 GM VIAL IVPB ONE ×3 (03:30→16:06)
[2020-07-09] MEDS ORDERED: DEXTROSE 5%-WATER - 50 ML IVPB ONE ×3 (03:31→16:06)
[2020-07-09] MEDS: PIPERACILLIN/TAZOB 3.375 GM 3.375 GM in DEXTROSE 5%-WATER - 50 ML IVPB SCH ×3 (03:51→17:14)
[2020-07-09] MEDS: INSULIN SLIDING SCALE (NOVOLOG) 1 VIAL SQ SCH ×4 (07:00→21:34)
[2020-07-09] MEDS: LIDOCAINE 5% TOPICAL PATCH TP SCH (09:24)
[2020-07-09] MEDS: CLOPIDOGREL BISULFATE 75 MG TABLET (FP) PO SCH (09:24)
[2020-07-09] MEDS: TAMSULOSIN HCL 0.4 MG CAP PO SCH (09:24)
[2020-07-09] MEDS: CARVEDILOL 3.125 MG TABLET (FP) PO SCH ×2 (09:24→21:32)
[2020-07-09] MEDS: ESCITALOPRAM OXALATE 20 MG TABLET PO SCH (09:24)
[2020-07-09] MEDS: COLLAGENASE CLOSTRIDIUM HIST. 30 GRAMS TUBE TP SCH (09:25)
[2020-07-09] MEDS: BUDESONIDE/FORMETEROL FUMARATE 160/4.5 mcg INHALER IH SCH ×2 (09:25→21:36)
[2020-07-09] MEDS: SACUBITRIL/VALSARTAN 24 MG-26 MG TABLET PO SCH ×2 (10:56→21:32)
[2020-07-09] MEDS: POLYETHYLENE GLYCOL 3350 119 GM BTL PO SCH (10:56)
[2020-07-09] MEDS: ENOXAPARIN NA (PORCINE) 40 MG/0.4 ML DISP.SYRIN SQ SCH (10:58)
[2020-07-09] MEDS ORDERED: SODIUM CHLORIDE 1,000 ML IV SCH ×2 (14:00)
[2020-07-09] MEDS: SODIUM CHLORIDE 0.45% 1,000 ML IV SCH (14:20)
[2020-07-09] MEDS: oxyCODONE HCL 5 MG TABLET PO PRN (15:25)
[2020-07-09] MEDS: AMINO ACIDS/PROTEIN HYDROLYS 30 ML LIQUID.PKT PO SCH (17:14)
[2020-07-09] MEDS: LATANOPROST 0.005% OPHTH SOLN 2.5ML BOTTLE OU SCH (21:31)
[2020-07-09] MEDS: ROSUVASTATIN CA 20 MG TABLET (FP) PO SCH (21:32)
[2020-07-09] MEDS: LIDOCAINE PATCH REMOVAL MC SCH (21:33)
[2020-07-09] MEDS: INSULIN (LEVEMIR) 100 UNITS/ML UNITS SQ SCH (21:33)
[2020-07-10] MEDS ORDERED: DEXTROSE 5%-WATER - 50 ML IVPB ONE ×3 (01:17→16:57)
[2020-07-10] MEDS ORDERED: PIPERACILLIN/TAZOBACTAM 3.375 GM VIAL IVPB ONE ×3 (01:17→16:57)
[2020-07-10] MEDS: PIPERACILLIN/TAZOB 3.375 GM 3.375 GM in DEXTROSE 5%-WATER - 50 ML IVPB SCH ×3 (01:28→17:04)
[2020-07-10] MEDS: INSULIN SLIDING SCALE (NOVOLOG) 1 VIAL SQ SCH ×4 (06:15→21:52)
[2020-07-10 07:40] LABS: HEMATOCRIT 27.7 % (35.4-49); HEMOGLOBIN 9.4 GM/dL (11.7-16.9); MCH 27.7 pg (25.7-33.7); MCHC 33.8 g/dl (32.0-35.9); MEAN CELL VOLUME 81.8 fl (80-96); MEAN PLT VOLUME 7.8 fl (7.5-11.1); PLATELET COUNT 162 K/MM3 (134-434); RBC 3.38 M/mm3 (4.00-5.60); RDW 18.3 % (11.9-15.9); WHITE BLOOD COUNT 6.3 K/mm3 (4.0-10.0)
[2020-07-10 07:55] LABS: ALBUMIN 2.8 g/dl (3.4-5.0); BLOOD UREA NITROGEN 26.3 mg/dL (7-18); CALCIUM 8.9 mg/dL (8.5-10.1); MAGNESIUM 1.8 mg/dL (1.8-2.4); POTASSIUM 3.9 mmol/L (3.5-5.1)
[2020-07-10 07:58] LABS: PHOSPHOROUS 2.9 mg/dL (2.5-4.9)
[2020-07-10 08:00] LABS: BILIRUBIN,TOTAL 0.3 mg/dL (0.2-1)
[2020-07-10] MEDS: CARVEDILOL 3.125 MG TABLET (FP) PO SCH ×2 (09:56→21:48)
[2020-07-10] MEDS: CLOPIDOGREL BISULFATE 75 MG TABLET (FP) PO SCH (09:56)
[2020-07-10] MEDS: MULTIVITAMINS THER W-MINERALS COMBO TABLET (FP) PO SCH (09:56)
[2020-07-10] MEDS: AMINO ACIDS/PROTEIN HYDROLYS 30 ML LIQUID.PKT PO SCH ×2 (09:56→16:58)
[2020-07-10] MEDS: SACUBITRIL/VALSARTAN 24 MG-26 MG TABLET PO SCH ×2 (09:56→21:49)
[2020-07-10] MEDS: ESCITALOPRAM OXALATE 20 MG TABLET PO SCH (09:56)
[2020-07-10] MEDS: ENOXAPARIN NA (PORCINE) 40 MG/0.4 ML DISP.SYRIN SQ SCH (09:56)
[2020-07-10] MEDS: TAMSULOSIN HCL 0.4 MG CAP PO SCH (09:56)
[2020-07-10] MEDS: LIDOCAINE 5% TOPICAL PATCH TP SCH (09:56)
[2020-07-10] MEDS: COLLAGENASE CLOSTRIDIUM HIST. 30 GRAMS TUBE TP SCH (09:57)
[2020-07-10] MEDS: POLYETHYLENE GLYCOL 3350 119 GM BTL PO SCH (09:57)
[2020-07-10] MEDS: BUDESONIDE/FORMETEROL FUMARATE 160/4.5 mcg INHALER IH SCH ×2 (09:57→21:54)
[2020-07-10] MEDS: oxyCODONE HCL 5 MG TABLET PO PRN ×2 (10:20→18:39)
[2020-07-10] MEDS: SODIUM CHLORIDE 0.45% 1,000 ML IV SCH (14:34)
[2020-07-10] MEDS ORDERED: INSULIN (NOVOLOG) ASPART 100 UNITS/ML 10ML VIAL ONE (21:45)
[2020-07-10] MEDS: ROSUVASTATIN CA 20 MG TABLET (FP) PO SCH (21:48)
[2020-07-10] MEDS: INSULIN (LEVEMIR) 100 UNITS/ML UNITS SQ SCH (21:50)
[2020-07-10] MEDS: LIDOCAINE PATCH REMOVAL MC SCH (21:54)
[2020-07-10] MEDS: LATANOPROST 0.005% OPHTH SOLN 2.5ML BOTTLE OU SCH (21:54)
[2020-07-11] MEDS ORDERED: DEXTROSE 5%-WATER - 50 ML IVPB ONE ×3 (00:17→16:55)
[2020-07-11] MEDS ORDERED: PIPERACILLIN/TAZOBACTAM 3.375 GM VIAL IVPB ONE ×3 (00:17→16:54)
[2020-07-11] MEDS: PIPERACILLIN/TAZOB 3.375 GM 3.375 GM in DEXTROSE 5%-WATER - 50 ML IVPB SCH ×3 (01:21→17:00)
[2020-07-11] MEDS: oxyCODONE HCL 5 MG TABLET PO PRN ×3 (01:57→21:43)
[2020-07-11] MEDS: INSULIN SLIDING SCALE (NOVOLOG) 1 VIAL SQ SCH ×4 (06:24→21:50)
[2020-07-11] MEDS: AMINO ACIDS/PROTEIN HYDROLYS 30 ML LIQUID.PKT PO SCH ×2 (08:56→16:56)
[2020-07-11] MEDS ORDERED: PT OWN MED DRAWER 7, Y5N ONE (09:20)
[2020-07-11] MEDS: ENOXAPARIN NA (PORCINE) 40 MG/0.4 ML DISP.SYRIN SQ SCH (09:23)
[2020-07-11] MEDS: LIDOCAINE 5% TOPICAL PATCH TP SCH (09:23)
[2020-07-11] MEDS: POLYETHYLENE GLYCOL 3350 119 GM BTL PO SCH (09:24)
[2020-07-11] MEDS: SACUBITRIL/VALSARTAN 24 MG-26 MG TABLET PO SCH ×2 (09:24→21:32)
[2020-07-11] MEDS: CARVEDILOL 3.125 MG TABLET (FP) PO SCH ×2 (09:24→21:32)
[2020-07-11] MEDS: CLOPIDOGREL BISULFATE 75 MG TABLET (FP) PO SCH (09:24)
[2020-07-11] MEDS: MULTIVITAMINS THER W-MINERALS COMBO TABLET (FP) PO SCH (09:24)
[2020-07-11] MEDS: TAMSULOSIN HCL 0.4 MG CAP PO SCH (09:24)
[2020-07-11] MEDS: ESCITALOPRAM OXALATE 20 MG TABLET PO SCH (09:24)
[2020-07-11 09:29] LABS: ALBUMIN 2.8 g/dl (3.4-5.0); CALCIUM 8.5 mg/dL (8.5-10.1)
[2020-07-11] MEDS: BUDESONIDE/FORMETEROL FUMARATE 160/4.5 mcg INHALER IH SCH ×2 (09:29→21:51)
[2020-07-11 09:30] LABS: BLOOD UREA NITROGEN 28.2 mg/dL (7-18)
[2020-07-11 09:33] LABS: CREATININE 1.2 mg/dL (0.55-1.3)
[2020-07-11 09:34] LABS: BILIRUBIN,TOTAL 0.6 mg/dL (0.2-1)
[2020-07-11 09:36] LABS: POTASSIUM 3.8 mmol/L (3.5-5.1)
[2020-07-11] MEDS: COLLAGENASE CLOSTRIDIUM HIST. 30 GRAMS TUBE TP SCH (11:57)
[2020-07-11] MEDS: ROSUVASTATIN CA 20 MG TABLET (FP) PO SCH (21:33)
[2020-07-11] MEDS: INSULIN (LEVEMIR) 100 UNITS/ML UNITS SQ SCH (21:33)
[2020-07-11] MEDS: LIDOCAINE PATCH REMOVAL MC SCH (21:37)
[2020-07-11] MEDS ORDERED: INSULIN (NOVOLOG) ASPART 100 UNITS/ML 10ML VIAL ONE (21:49)
[2020-07-11] MEDS: LATANOPROST 0.005% OPHTH SOLN 2.5ML BOTTLE OU SCH (21:51)
[2020-07-12] MEDS ORDERED: PIPERACILLIN/TAZOBACTAM 3.375 GM VIAL IVPB ONE ×2 (02:45→09:35)
[2020-07-12] MEDS ORDERED: DEXTROSE 5%-WATER - 50 ML IVPB ONE ×2 (02:46→09:35)
[2020-07-12] MEDS: PIPERACILLIN/TAZOB 3.375 GM 3.375 GM in DEXTROSE 5%-WATER - 50 ML IVPB SCH ×2 (02:47→11:17)
[2020-07-12] MEDS: oxyCODONE HCL 5 MG TABLET PO PRN ×2 (06:48→21:41)
[2020-07-12] MEDS: INSULIN SLIDING SCALE (NOVOLOG) 1 VIAL SQ SCH ×4 (06:50→21:23)
[2020-07-12] MEDS: AMINO ACIDS/PROTEIN HYDROLYS 30 ML LIQUID.PKT PO SCH ×2 (08:17→18:46)
[2020-07-12 08:51] LABS: BASO % 0.6 % (0-2.0); EOS % 2.5 % (0-4.5); HEMOGLOBIN 9.1 GM/dL (11.7-16.9); LYMPH % 23.1 % (8-40); MCH 27.6 pg (25.7-33.7); MCHC 33.7 g/dl (32.0-35.9); MEAN CELL VOLUME 81.9 fl (80-96); MEAN PLT VOLUME 8.1 fl (7.5-11.1); MONO % 7.6 % (3.8-10.2); NEUT % 66.2 % (42.8-82.8); PLATELET COUNT 180 K/MM3 (134-434); RBC 3.29 M/mm3 (4.00-5.60); RDW 18.6 % (11.9-15.9); WHITE BLOOD COUNT 6.7 K/mm3 (4.0-10.0)
[2020-07-12 08:52] LABS: POTASSIUM 3.9 mmol/L (3.5-5.1)
[2020-07-12 08:56] LABS: ALBUMIN 2.7 g/dl (3.4-5.0); CALCIUM 8.5 mg/dL (8.5-10.1)
[2020-07-12 08:57] LABS: BLOOD UREA NITROGEN 30.3 mg/dL (7-18)
[2020-07-12 09:01] LABS: CREATININE 1.1 mg/dL (0.55-1.3); PHOSPHOROUS 3.3 mg/dL (2.5-4.9)
[2020-07-12 09:02] LABS: BILIRUBIN,TOTAL 0.5 mg/dL (0.2-1); TOT PROT 6.6 g/dl (6.4-8.2)
[2020-07-12] MEDS: TAMSULOSIN HCL 0.4 MG CAP PO SCH (11:16)
[2020-07-12] MEDS: ESCITALOPRAM OXALATE 20 MG TABLET PO SCH (11:16)
[2020-07-12] MEDS: CARVEDILOL 3.125 MG TABLET (FP) PO SCH ×2 (11:16→21:20)
[2020-07-12] MEDS: MULTIVITAMINS THER W-MINERALS COMBO TABLET (FP) PO SCH (11:16)
[2020-07-12] MEDS: CLOPIDOGREL BISULFATE 75 MG TABLET (FP) PO SCH (11:16)
[2020-07-12] MEDS: SACUBITRIL/VALSARTAN 24 MG-26 MG TABLET PO SCH ×2 (11:17→21:40)
[2020-07-12] MEDS: ENOXAPARIN NA (PORCINE) 40 MG/0.4 ML DISP.SYRIN SQ SCH (11:17)
[2020-07-12] MEDS: BUDESONIDE/FORMETEROL FUMARATE 160/4.5 mcg INHALER IH SCH ×2 (11:18→21:29)
[2020-07-12] MEDS: COLLAGENASE CLOSTRIDIUM HIST. 30 GRAMS TUBE TP SCH (11:18)
[2020-07-12] MEDS: LIDOCAINE 5% TOPICAL PATCH TP SCH (11:18)
[2020-07-12] MEDS: POLYETHYLENE GLYCOL 3350 119 GM BTL PO SCH (11:36)
[2020-07-12] MEDS ORDERED: AMOX TR/POT CLAV 875MG/125MG TABLETS (FP) PO SCH (17:30)
[2020-07-12 20:51] VITALS: BP 150/66; PULSE 75; TEMP 98.8
[2020-07-12] MEDS ORDERED: PT OWN MED DRAWER 7, Y5N ONE (21:07)
[2020-07-12] MEDS ORDERED: INSULIN (NOVOLOG) ASPART 100 UNITS/ML 10ML VIAL ONE (21:08)
[2020-07-12] MEDS: ROSUVASTATIN CA 20 MG TABLET (FP) PO SCH (21:20)
[2020-07-12] MEDS: INSULIN (LEVEMIR) 100 UNITS/ML UNITS SQ SCH (21:23)
[2020-07-12] MEDS: LIDOCAINE PATCH REMOVAL MC SCH (21:25)
[2020-07-12] MEDS: LATANOPROST 0.005% OPHTH SOLN 2.5ML BOTTLE OU SCH (21:29)
== END 2020-07-12 23:38 | disposition home health service (06) | DRG 871 ==
LOC: JER 06:35 → JERBED 10:57 → J4W 07-07 08:13
PROVIDERS: ADMIT Internal Medicine; ATTEND Student in an Organized Health Care Education/Training Program
DX: A41.9 Sepsis, unspecified organism (principal); J18.9 Pneumonia, unspecified organism; J96.01 Acute respiratory failure with hypoxia; R65.21 Severe sepsis with septic shock; I13.0 Hypertensive heart and chronic kidney disease with heart failure and stage 1 through stage 4 chronic kidney disease, or unspecified chronic kidney disease; E11.51 Type 2 diabetes mellitus with diabetic peripheral angiopathy without gangrene; E11.22 Type 2 diabetes mellitus with diabetic chronic kidney disease; I50.23 Acute on chronic systolic (congestive) heart failure; N17.9 Acute kidney failure, unspecified; N18.9 Chronic kidney disease, unspecified; E78.5 Hyperlipidemia, unspecified; J44.9 Chronic obstructive pulmonary disease, unspecified; M10.9 Gout, unspecified; N40.0 Benign prostatic hyperplasia without lower urinary tract symptoms; I95.9 Hypotension, unspecified; K56.41 Fecal impaction; Z87.891 Personal history of nicotine dependence
CPT/HCPCS: 36415; 71045-TC-FY; 71250-TC; 74176-TC; 75635-TC; 80053; 80061; 81003; 82803; 82962; 83605; 83721; 83735; 83880; 84100; 84484; 85025; 85027; 86769; 87040; 87077; 87086; 87899; 93005; 93010; 97116-GP; 97162-GP; 99285-25; C9803; G0463-25; Q9967; U0003

== ENCOUNTER 2020-08-27 16:24 | Observation (INO) | payer OTHER, MEDICARE ==
[2020-08-27] MEDS ORDERED: LACTATED RINGERS SOLUTION 1000 ML INFUS.BAG IV ONE (17:02)
[2020-08-27 17:29] LABS: BASO % 0.6 % (0-2.0); EOS % 1.3 % (0-4.5); HEMATOCRIT 31.9 % (35.4-49); HEMOGLOBIN 10.3 GM/dL (11.7-16.9); LYMPH % 15.2 % (8-40); MCH 27.2 pg (25.7-33.7); MCHC 32.2 g/dl (32.0-35.9); MEAN CELL VOLUME 84.4 fl (80-96); MEAN PLT VOLUME 7.7 fl (7.5-11.1); MONO % 6.1 % (3.8-10.2); NEUT % 76.8 % (42.8-82.8); PLATELET COUNT 182 K/MM3 (134-434); RBC 3.78 M/mm3 (4.00-5.60); RDW 18.3 % (11.9-15.9); WHITE BLOOD COUNT 8.4 K/mm3 (4.0-10.0)
[2020-08-27] MEDS ORDERED: SODIUM CHLORIDE 1,000 ML IV SCH ×2 (17:30→23:15)
[2020-08-27 17:34] LABS: INR 1.16 (0.83-1.09)
[2020-08-27 17:36] LABS: ACTIVATED PTT 29.5 SECONDS (25.2-36.5)
[2020-08-27 17:53] LABS: CHLORIDE 111 mmol/L (98-107); SODIUM 140 mmol/L (136-145)
[2020-08-27 17:56] LABS: ALBUMIN 2.6 g/dl (3.4-5.0); ANION GAP 5 MMOL/L (8-16); BLOOD UREA NITROGEN 42.6 mg/dL (7-18); CALCIUM 8.1 mg/dL (8.5-10.1); CO2 24 mmol/L (21-32); GLUCOSE,RANDOM 129 mg/dL (74-106); MAGNESIUM 2.2 mg/dL (1.8-2.4)
[2020-08-27 17:59] LABS: CREATININE 1.5 mg/dL (0.55-1.3); SGOT/AST 68 U/L (15-37); SGPT/ALT 109 U/L (13-61)
[2020-08-27 18:01] LABS: BILIRUBIN,TOTAL 0.4 mg/dL (0.2-1); TOT PROT 6.3 g/dl (6.4-8.2)
[2020-08-27 18:02] LABS: ALK PHOS 94 U/L (45-117)
[2020-08-27 18:04] LABS: N-TERMINAL BNP 1013.7 pg/ml (5-450)
[2020-08-27 22:41] LABS: EPI CELLS 2 /uL (0-25.1); HYALINE CASTS 4 /uL (0-3.1); URINE APPEARANCE CLOUDY; URINE BACTERIA 14 /uL (0-1359); URINE BILIRUBIN NEGATIVE (NEGATIVE); URINE COLOR YELLOW; URINE GLUCOSE (UA) NEGATIVE (NEGATIVE); URINE KETONE NEGATIVE (NEGATIVE); URINE LEUK ESTERASE 3+ (NEGATIVE); URINE NITRITE NEGATIVE (NEGATIVE); URINE PROTEIN 1+ (NEGATIVE); URINE RBC 1012 /uL (0-23.9); URINE UROBILINOGEN 0.2 mg/dL (0.2-1.0); URINE WBC 883 /uL (0-25.8)
[2020-08-27] MEDS ORDERED: cefTRIAXone SODIUM 1 GM VIAL IVPB ONE (23:57)
[2020-08-28] MEDS ORDERED: CEFTRIAXONE 1 GM/50 ML BAG ONE (00:05)
[2020-08-28] MEDS ORDERED: oxyCODONE HCL 5 MG TABLET ONE (00:05)
[2020-08-28] MEDS: oxyCODONE HCL 5 MG TABLET PO PRN ×4 (00:11→20:51)
[2020-08-28 04:44] VITALS: BMI 23.0
[2020-08-28 06:47] LABS: BASO % 0.5 % (0-2.0); HEMATOCRIT 34.5 % (35.4-49); HEMOGLOBIN 11.2 GM/dL (11.7-16.9); MCH 27.3 pg (25.7-33.7); MCHC 32.3 g/dl (32.0-35.9); MEAN CELL VOLUME 84.3 fl (80-96); MEAN PLT VOLUME 7.8 fl (7.5-11.1); MONO % 6.6 % (3.8-10.2); NEUT % 68.9 % (42.8-82.8); PLATELET COUNT 172 K/MM3 (134-434); RBC 4.09 M/mm3 (4.00-5.60); RDW 18.1 % (11.9-15.9)
[2020-08-28 06:57] LABS: CALCIUM 8.4 mg/dL (8.5-10.1)
[2020-08-28 06:58] LABS: BLOOD UREA NITROGEN 42.6 mg/dL (7-18); MAGNESIUM 2.1 mg/dL (1.8-2.4)
[2020-08-28 07:01] LABS: CREATININE 1.3 mg/dL (0.55-1.3)
[2020-08-28] MEDS: INSULIN SLIDING SCALE (NOVOLOG) 1 VIAL SQ SCH ×4 (07:25→22:18)
[2020-08-28] MEDS ORDERED: cefTRIAXone SODIUM 1 GM VIAL ONE (08:10)
[2020-08-28] MEDS ORDERED: DEXTROSE 5%-WATER - 50 ML IVPB ONE (08:10)
[2020-08-28] MEDS ORDERED: PT OWN MED DRAWER 7, Y5N ONE (08:19)
[2020-08-28] MEDS ORDERED: TAMSULOSIN HCL 0.4 MG CAP PO SCH (08:30)
[2020-08-28] MEDS: CARVEDILOL 3.125 MG TABLET (FP) PO SCH ×2 (09:02→22:37)
[2020-08-28] MEDS: CLOPIDOGREL BISULFATE 75 MG TABLET (FP) PO SCH (09:03)
[2020-08-28] MEDS: ESCITALOPRAM OXALATE 20 MG TABLET PO SCH (09:03)
[2020-08-28] MEDS: CEFTRIAXONE 1 GM in DEXTROSE 5%-WATER - 50 ML IVPB SCH (09:21)
[2020-08-28] MEDS: BUDESONIDE/FORMETEROL FUMARATE 160/4.5 mcg INHALER IH SCH ×2 (09:52→22:19)
[2020-08-28] MEDS ORDERED: FLU VACCINE (FLULAVAL) PF 60 MCG/0.5 ML SYRINGE 2020-2021 IM ONE (10:00)
[2020-08-28] MEDS ORDERED: FUROSEMIDE 20 MG TABLET (FP) PO SCH (10:00)
[2020-08-28] MEDS ORDERED: PNEUMOC 13-VAL CONJ-DIP CRM/PF 0.5 ML DISP.SYRIN IM ONE (10:00)
[2020-08-28] MEDS ORDERED: SACUBITRIL/VALSARTAN 24 MG-26 MG TABLET PO SCH (10:00)
[2020-08-28 11:36] LABS: BILIRUBIN,DIRECT 0.1 mg/dL (0.0-0.2)
[2020-08-28 11:38] LABS: BILIRUBIN,TOTAL 0.4 mg/dL (0.2-1); TOT PROT 6.8 g/dl (6.4-8.2)
[2020-08-28] MEDS ORDERED: SODIUM CHLORIDE 1,000 ML IV SCH (11:41)
[2020-08-28] MEDS ORDERED: GABAPENTIN 300 MG CAPSULE PO SCH (22:00)
[2020-08-28] MEDS ORDERED: CARVEDILOL 3.125 MG TABLET (FP) PO SCH (22:20)
[2020-08-29] MEDS: INSULIN SLIDING SCALE (NOVOLOG) 1 VIAL SQ SCH ×3 (06:14→16:59)
[2020-08-29] MEDS: oxyCODONE HCL 5 MG TABLET PO PRN ×2 (06:22→15:14)
[2020-08-29] MEDS ORDERED: ALBUTEROL SO4 HFA INHALER IH PRN (06:50)
[2020-08-29 06:59] LABS: HEMATOCRIT 33.6 % (35.4-49); HEMOGLOBIN 10.9 GM/dL (11.7-16.9); MCH 27.2 pg (25.7-33.7); MCHC 32.4 g/dl (32.0-35.9); MEAN CELL VOLUME 83.9 fl (80-96); MEAN PLT VOLUME 7.8 fl (7.5-11.1); PLATELET COUNT 166 K/MM3 (134-434); RDW 18.1 % (11.9-15.9); WHITE BLOOD COUNT 5.9 K/mm3 (4.0-10.0)
[2020-08-29 07:13] LABS: ALBUMIN 2.9 g/dl (3.4-5.0); BLOOD UREA NITROGEN 30.9 mg/dL (7-18); CALCIUM 8.8 mg/dL (8.5-10.1)
[2020-08-29 07:14] LABS: MAGNESIUM 2.1 mg/dL (1.8-2.4)
[2020-08-29 07:16] LABS: CREATININE 1.2 mg/dL (0.55-1.3)
[2020-08-29 07:17] LABS: PHOSPHOROUS 3.1 mg/dL (2.5-4.9)
[2020-08-29 07:18] LABS: BILIRUBIN,TOTAL 0.3 mg/dL (0.2-1); TOT PROT 6.6 g/dl (6.4-8.2)
[2020-08-29] MEDS ORDERED: DEXTROSE 5%-WATER - 50 ML IVPB ONE (09:00)
[2020-08-29] MEDS ORDERED: cefTRIAXone SODIUM 1 GM VIAL ONE (09:00)
[2020-08-29] MEDS ORDERED: PT OWN MED DRAWER 7, Y5N ONE (09:08)
[2020-08-29] MEDS: CEFTRIAXONE 1 GM in DEXTROSE 5%-WATER - 50 ML IVPB SCH (09:10)
[2020-08-29] MEDS: ESCITALOPRAM OXALATE 20 MG TABLET PO SCH (09:10)
[2020-08-29] MEDS: CLOPIDOGREL BISULFATE 75 MG TABLET (FP) PO SCH (09:10)
[2020-08-29] MEDS: BUDESONIDE/FORMETEROL FUMARATE 160/4.5 mcg INHALER IH SCH (09:10)
[2020-08-29] MEDS ORDERED: DEXTROAMPHETAMINE PO SCH (10:00)
[2020-08-29] MEDS ORDERED: BETHANECHOL CHLORIDE 25 MG TABLET PO SCH (10:00)
[2020-08-29] MEDS: CLOTRIMAZOLE 10 MG TROCHE PO SCH ×2 (14:21→17:53)
[2020-08-29 19:54] VITALS: BP 150/68; PULSE 76; TEMP 98.4
[2020-08-29] MEDS ORDERED: ROSUVASTATIN CA 20 MG TABLET (FP) PO SCH (22:00)
== END 2020-08-29 21:59 | disposition home or self-care (01) ==
LOC: JER 16:24 → JERBED 18:40 → INTOOBSV 18:40 → UNDOADMOB 18:40 → J4W 08-28 04:58 → JERBED 08-28 04:58 → J4W 08-28 14:05 → JERBED 08-28 14:05
PROVIDERS: ADMIT Hospitalist; ATTEND Internal Medicine
PROC: 3E03329 Introduction of Other Anti-infective into Peripheral Vein, Percutaneous Approach (ICD-10-PCS; principal; 2020-08-28)
PROC: 3E0234Z Introduction of Serum, Toxoid and Vaccine into Muscle, Percutaneous Approach (ICD-10-PCS; 2020-08-28)
DX: I13.10 Hypertensive heart and chronic kidney disease without heart failure, with stage 1 through stage 4 chronic kidney disease, or unspecified chronic kidney disease (principal); E11.22 Type 2 diabetes mellitus with diabetic chronic kidney disease; N17.9 Acute kidney failure, unspecified; J44.9 Chronic obstructive pulmonary disease, unspecified; E78.5 Hyperlipidemia, unspecified; Z99.81 Dependence on supplemental oxygen; N18.9 Chronic kidney disease, unspecified; Z95.5 Presence of coronary angioplasty implant and graft; N40.0 Benign prostatic hyperplasia without lower urinary tract symptoms; K27.9 Peptic ulcer, site unspecified, unspecified as acute or chronic, without hemorrhage or perforation; R79.89 Other specified abnormal findings of blood chemistry; Z88.8 Allergy status to other drugs, medicaments and biological substances; R74.01 Elevation of levels of liver transaminase levels; N39.0 Urinary tract infection, site not specified; Z29.9 Encounter for prophylactic measures, unspecified; Z23 Encounter for immunization
CPT/HCPCS: 36415; 70450-TC; 71045-TC-FY; 71250-TC; 74176-TC; 80048; 80053; 80076; 81003; 82550; 82962; 83036; 83735; 83880; 84100; 84436; 84443; 84484; 85025; 85027; 85610; 85730; 86850; 86900; 86901; 87086; 90670; 93005; 93010; 96365; 96372; 97116-GP; 97161-GP; 99285-25; C9803; G0009; G0378; Q2036; U0003; U0005

== ENCOUNTER 2020-09-21 13:13 | Emergency (ER) | payer OTHER, MEDICARE ==
[2020-09-21 13:31] VITALS: BMI 23.0
[2020-09-21] MEDS ORDERED: SODIUM CHLORIDE 500 ML IV STA (13:57)
[2020-09-21 14:48] LABS: HEMATOCRIT 37.2 % (35.4-49); HEMOGLOBIN 12.1 GM/dL (11.7-16.9); LYMPH % 14.6 % (8-40); MCH 26.2 pg (25.7-33.7); MCHC 32.6 g/dl (32.0-35.9); MEAN CELL VOLUME 80.3 fl (80-96); MONO % 3.8 % (3.8-10.2); NEUT % 77.6 % (42.8-82.8); PLATELET COUNT 175 K/MM3 (134-434); RBC 4.63 M/mm3 (4.00-5.60); RDW 17.4 % (11.9-15.9); WHITE BLOOD COUNT 7.7 K/mm3 (4.0-10.0)
[2020-09-21 14:55] LABS: INR 1.04 (0.83-1.09); PROTHROMBIN TIME (PATIENT) 12.8 SEC (9.7-13.0)
[2020-09-21 14:58] LABS: ACTIVATED PTT 31.3 SECONDS (25.2-36.5)
[2020-09-21 15:19] LABS: VENOUS BASE EXCESS -4.4 mmol/L (-2-2); VENOUS O2 SATURATION 31.1 % (70-80); VENOUS PCO2 55.3 mmHg (38-52); VENOUS PH 7.247 (7.310-7.410)
[2020-09-21 15:21] LABS: CHLORIDE 111 mmol/L (98-107); SODIUM 140 mmol/L (136-145)
[2020-09-21 15:22] LABS: CALCIUM 8.6 mg/dL (8.5-10.1)
[2020-09-21 15:23] LABS: ALBUMIN 3.1 g/dl (3.4-5.0); ANION GAP 5 MMOL/L (8-16); BLOOD UREA NITROGEN 34.1 mg/dL (7-18); CO2 25 mmol/L (21-32); GLUCOSE,RANDOM 193 mg/dL (74-106)
[2020-09-21 15:26] LABS: CREATININE 1.2 mg/dL (0.55-1.3); SGOT/AST 53 U/L (15-37); SGPT/ALT 83 U/L (13-61)
[2020-09-21 15:28] LABS: BILIRUBIN,TOTAL 0.2 mg/dL (0.2-1); TOT PROT 7.4 g/dl (6.4-8.2)
[2020-09-21 15:29] LABS: ALK PHOS 112 U/L (45-117)
[2020-09-21 18:27] LABS: EPI CELLS 31 /uL (0-25.1); HYALINE CASTS 4 /uL (0-3.1); URINE APPEARANCE CLEAR; URINE BACTERIA 16 /uL (0-1359); URINE BILIRUBIN NEGATIVE (NEGATIVE); URINE COLOR YELLOW; URINE GLUCOSE (UA) NEGATIVE (NEGATIVE); URINE KETONE NEGATIVE (NEGATIVE); URINE LEUK ESTERASE 2+ (NEGATIVE); URINE NITRITE NEGATIVE (NEGATIVE); URINE PROTEIN 1+ (NEGATIVE); URINE RBC 12 /uL (0-23.9); URINE UROBILINOGEN 0.2 mg/dL (0.2-1.0); URINE WBC 293 /uL (0-25.8)
[2020-09-21] MEDS ORDERED: CEFTRIAXONE 1 GM/50 ML BAG ONE (19:12)
[2020-09-21 20:10] LABS: YEAST PRESENT (NEGATIVE)
[2020-09-21 21:05] LABS: ARTERIAL BLD GAS O2 SATURATION 95.8 mmHg (95-98); ARTERIAL BLOOD GAS BASE EXCESS -4.5 mmol/L (-2-2); ARTERIAL BLOOD GAS PO2 79.5 mmHg (80-100); ARTERIAL BLOOD GAS pH 7.388 (7.350-7.450)
[2020-09-21 21:07] LABS: ALLENS TEST POSITIVE
[2020-09-22 09:31] VITALS: BP 158/57; PULSE 71; TEMP 98.3
== END 2020-09-22 09:20 ==
LOC: JER 13:13
PROC: 3E03329 Introduction of Other Anti-infective into Peripheral Vein, Percutaneous Approach (ICD-10-PCS; principal; 2020-09-21)
PROC: 3E0337Z Introduction of Electrolytic and Water Balance Substance into Peripheral Vein, Percutaneous Approach (ICD-10-PCS; 2020-09-21)
DX: N30.00 Acute cystitis without hematuria (principal); I95.9 Hypotension, unspecified
CPT/HCPCS: 36415; 36600; 71045-TC-FY; 80053; 81003; 82272; 82803; 83605; 84484; 85025; 85610; 85730; 86850; 86900; 86901; 87040; 87077; 87086; 93005; 93010; 99285-25; C9803; U0003; U0005

== ENCOUNTER 2020-10-16 20:38 | Inpatient (IN) | payer OTHER, MEDICARE ==
[2020-10-16 22:01] LABS: BASO % 0.2 % (0-2.0); EOS % 1.1 % (0-4.5); HEMATOCRIT 38.3 % (35.4-49); HEMOGLOBIN 12.9 GM/dL (11.7-16.9); LYMPH % 6.9 % (8-40); MCH 26.7 pg (25.7-33.7); MCHC 33.7 g/dl (32.0-35.9); MEAN CELL VOLUME 79.1 fl (80-96); MONO % 4.5 % (3.8-10.2); NEUT % 87.3 % (42.8-82.8); PLATELET COUNT 162 K/MM3 (134-434); RBC 4.84 M/mm3 (4.00-5.60); RDW 17.7 % (11.9-15.9); WHITE BLOOD COUNT 8.5 K/mm3 (4.0-10.0)
[2020-10-16 22:04] LABS: CHLORIDE 110 mmol/L (98-107); SODIUM 140 mmol/L (136-145)
[2020-10-16 22:06] LABS: ALBUMIN 3.3 g/dl (3.4-5.0); ANION GAP 9 MMOL/L (8-16); BLOOD UREA NITROGEN 36.6 mg/dL (7-18); CO2 21 mmol/L (21-32)
[2020-10-16 22:07] LABS: GLUCOSE,RANDOM 184 mg/dL (74-106); INR 1.05 (0.83-1.09); PROTHROMBIN TIME (PATIENT) 12.7 SEC (9.7-13.0)
[2020-10-16 22:09] LABS: CREATININE 1.1 mg/dL (0.55-1.3); SGOT/AST 88 U/L (15-37); SGPT/ALT 135 U/L (13-61)
[2020-10-16 22:10] LABS: ACTIVATED PTT 30.6 SECONDS (25.2-36.5)
[2020-10-16 22:11] LABS: BILIRUBIN,TOTAL 0.5 mg/dL (0.2-1); TOT PROT 7.6 g/dl (6.4-8.2)
[2020-10-16 22:12] LABS: ALK PHOS 113 U/L (45-117)
[2020-10-16 22:14] LABS: N-TERMINAL BNP 1322.7 pg/ml (5-450)
[2020-10-16] MEDS ORDERED: ONDANSETRON 4 MG/2 ML VIAL ONE (22:30)
[2020-10-16] MEDS ORDERED: ONDANSETRON 4 MG/2 ML VIAL IVPUSH ONE (22:30)
[2020-10-17 01:04] LABS: URINE APPEARANCE CLOUDY; URINE COLOR YELLOW
[2020-10-17 01:05] LABS: PH,URINE 5.5 (5.0-8.0); URINE BILIRUBIN NEGATIVE (NEGATIVE); URINE GLUCOSE (UA) NEGATIVE (NEGATIVE); URINE KETONE NEGATIVE (NEGATIVE); URINE LEUK ESTERASE 2+ (NEGATIVE); URINE NITRITE NEGATIVE (NEGATIVE); URINE PROTEIN 30 (NEGATIVE)
[2020-10-17 01:06] LABS: EPI CELLS 4.2 /uL (0-25.1); HYALINE CASTS 7.19 /uL (0-3.1); URINE BACTERIA 14.3 /uL (0-1359); URINE RBC 118.8 /uL (0-23.9); URINE WBC 897 /uL (0-25.8)
[2020-10-17] MEDS ORDERED: CEFTRIAXONE 1,000 MG in DEXTROSE 5%-WATER - 50 ML IVPB ONE (01:08)
[2020-10-17] MEDS ORDERED: CEFTRIAXONE 1 GM/50 ML BAG ONE (01:28)
[2020-10-17] MEDS ORDERED: ACETAMINOPHEN 325 MG TABLET (FP) ONE (02:01)
[2020-10-17] MEDS ORDERED: ACETAMINOPHEN 325 MG TABLET (FP) PO PRN (03:02)
[2020-10-17] MEDS ORDERED: ALBUTEROL SO4 2.5/IPRATROPIUM 0.5 INH SOL 3 ML VIAL.NEB. NEB PRN (03:06)
[2020-10-17] MEDS ORDERED: ALBUTEROL SO4 HFA INHALER IH PRN (03:06)
[2020-10-17] MEDS ORDERED: PHENAZOPYRIDINE HCL 100 MG TABLET (FP) PO ONE (03:15)
[2020-10-17] MEDS ORDERED: ACETAMINOPHEN 325 MG TABLET (FP) PO ONE (03:15)
[2020-10-17 05:17] LABS: YEAST FEW (NEGATIVE)
[2020-10-17 05:57] LABS: ARTERIAL BLD GAS O2 SATURATION 97.3 mmHg (95-98); ARTERIAL BLOOD GAS BASE EXCESS -4.3 mmol/L (-2-2); ARTERIAL BLOOD GAS PO2 97.4 mmHg (80-100); ARTERIAL BLOOD GAS pH 7.376 (7.350-7.450)
[2020-10-17] MEDS: INSULIN SLIDING SCALE (NOVOLOG) 1 VIAL SQ SCH ×4 (06:29→21:05)
[2020-10-17 07:37] LABS: BASO % 0.2 % (0-2.0); EOS % 0.1 % (0-4.5); HEMATOCRIT 33.9 % (35.4-49); HEMOGLOBIN 11.3 GM/dL (11.7-16.9); LYMPH % 7.5 % (8-40); MCH 26.5 pg (25.7-33.7); MCHC 33.2 g/dl (32.0-35.9); MEAN CELL VOLUME 79.7 fl (80-96); MEAN PLT VOLUME 8.1 fl (7.5-11.1); MONO % 3.4 % (3.8-10.2); NEUT % 88.8 % (42.8-82.8); PLATELET COUNT 141 K/MM3 (134-434); RBC 4.26 M/mm3 (4.00-5.60); RDW 17.6 % (11.9-15.9); WHITE BLOOD COUNT 15.5 K/mm3 (4.0-10.0)
[2020-10-17 08:26] LABS: BLOOD UREA NITROGEN 45.1 mg/dL (7-18)
[2020-10-17 08:27] LABS: CALCIUM 8.7 mg/dL (8.5-10.1)
[2020-10-17 08:28] LABS: PHOSPHOROUS 3.8 mg/dL (2.5-4.9)
[2020-10-17 08:29] LABS: CREATININE 1.5 mg/dL (0.55-1.3)
[2020-10-17 08:30] LABS: TOT PROT 6.9 g/dl (6.4-8.2)
[2020-10-17 08:35] LABS: BILIRUBIN,TOTAL 0.5 mg/dL (0.2-1)
[2020-10-17] MEDS ORDERED: cefTRIAXone SODIUM 1 GM VIAL ONE (08:43)
[2020-10-17] MEDS ORDERED: DEXTROSE 5%-WATER - 50 ML IVPB ONE (08:43)
[2020-10-17] MEDS: TAMSULOSIN HCL 0.4 MG CAP PO SCH (09:11)
[2020-10-17] MEDS: PANTOPRAZOLE SODIUM 40 MG VIAL IVPUSH SCH (09:11)
[2020-10-17] MEDS: predniSONE 20 MG TABLET (UD) PO SCH (09:11)
[2020-10-17] MEDS: BUDESONIDE/FORMETEROL FUMARATE 160/4.5 mcg INHALER IH SCH ×2 (09:14→21:08)
[2020-10-17] MEDS: CEFTRIAXONE 1 GM in DEXTROSE 5%-WATER - 50 ML IVPB SCH (09:14)
[2020-10-17] MEDS ORDERED: DEXTROSE 50%-WATER - 25 GM/50 ML VIAL IVPUSH ONE (09:35)
[2020-10-17] MEDS ORDERED: INSULIN REGULAR HUMAN 100 UNITS/ML *VIAL SQ ONE (09:35)
[2020-10-17] MEDS ORDERED: SODIUM ZIRCONIUM CYCLOSILICATE (LOKELMA) 5 GM PACKET PO ONE (09:40)
[2020-10-17] MEDS ORDERED: AZITHROMYCIN IVPB 500 MG in DEXTROSE 5%-WATER - 250 ML IVPB SCH (10:00)
[2020-10-17] MEDS ORDERED: POLYETHYLENE GLYCOL 3350 119 GM BTL PO SCH (10:00)
[2020-10-17] MEDS: AZITHROMYCIN IVPB 500 MG/250 ML BAG IVPB SCH (10:00)
[2020-10-17] MEDS ORDERED: BUDESONIDE/FORMETEROL FUMARATE 80/4.5 mcg INHALER IH SCH (10:00)
[2020-10-17] MEDS ORDERED: SACUBITRIL/VALSARTAN 24 MG-26 MG TABLET PO SCH ×2 (10:00)
[2020-10-17] MEDS ORDERED: predniSONE 20 MG TABLET (UD) PO SCH (10:00)
[2020-10-17] MEDS ORDERED: BISACODYL 5 MG TABLET.DR (FP) PO ONE (12:58)
[2020-10-17] MEDS ORDERED: HEPARIN NA (PORCINE) 5,000 UNITS/ML 1ML VIAL SQ SCH (14:00)
[2020-10-17] MEDS: COLLAGENASE CLOSTRIDIUM HIST. 30 GRAMS TUBE TP SCH (14:59)
[2020-10-17 15:06] LABS: CALCIUM 8.4 mg/dL (8.5-10.1)
[2020-10-17 15:07] LABS: BLOOD UREA NITROGEN 46.6 mg/dL (7-18)
[2020-10-17 15:10] LABS: CREATININE 1.5 mg/dL (0.55-1.3)
[2020-10-17] MEDS: ALBUTEROL SO4 2.5/IPRATROPIUM 0.5 INH SOL 3 ML VIAL.NEB. NEB SCH ×2 (15:27→19:45)
[2020-10-17] MEDS ORDERED: INSULIN (NOVOLOG) ASPART 100 UNITS/ML 10ML VIAL ONE (21:03)
[2020-10-17] MEDS: INSULIN (LEVEMIR) 100 UNITS/ML UNITS SQ SCH (21:05)
[2020-10-17] MEDS: POLYETHYLENE GLYCOL 3350 119 GM BTL PO SCH (21:07)
[2020-10-17] MEDS: HEPARIN NA (PORCINE) 5,000 UNITS/ML 1ML VIAL SQ SCH (21:07)
[2020-10-17] MEDS: GABAPENTIN 300 MG CAPSULE PO SCH (21:07)
[2020-10-17] MEDS: CARVEDILOL 3.125 MG TABLET (FP) PO SCH (21:07)
[2020-10-17] MEDS: ROSUVASTATIN CA 20 MG TABLET (FP) PO SCH (21:07)
[2020-10-17] MEDS ORDERED: PATIENT'S OWN MEDICATION (NON-FORMULARY) (Insulin Glargine,Hum.Rec.Anlog 100 UNITS/ML Ins) SQ SCH (22:00)
[2020-10-18] MEDS: INSULIN SLIDING SCALE (NOVOLOG) 1 VIAL SQ SCH ×4 (06:26→21:39)
[2020-10-18] MEDS: POLYETHYLENE GLYCOL 3350 119 GM BTL PO SCH ×3 (06:27→21:35)
[2020-10-18] MEDS: INSULIN (LEVEMIR) 100 UNITS/ML UNITS SQ SCH ×2 (06:27→21:38)
[2020-10-18 07:33] LABS: BASO % 0.3 % (0-2.0); EOS % 0.3 % (0-4.5); HEMATOCRIT 31.1 % (35.4-49); HEMOGLOBIN 10.6 GM/dL (11.7-16.9); LYMPH % 15.4 % (8-40); MEAN CELL VOLUME 79.3 fl (80-96); MEAN PLT VOLUME 7.8 fl (7.5-11.1); PLATELET COUNT 123 K/MM3 (134-434); RBC 3.91 M/mm3 (4.00-5.60); RDW 18.1 % (11.9-15.9); WHITE BLOOD COUNT 7.2 K/mm3 (4.0-10.0)
[2020-10-18] MEDS: ALBUTEROL SO4 2.5/IPRATROPIUM 0.5 INH SOL 3 ML VIAL.NEB. NEB SCH ×4 (07:42→20:37)
[2020-10-18 08:19] LABS: BLOOD UREA NITROGEN 53.4 mg/dL (7-18); CREATININE 1.4 mg/dL (0.55-1.3)
[2020-10-18 08:21] LABS: BILIRUBIN,TOTAL 0.3 mg/dL (0.2-1); CALCIUM 8.7 mg/dL (8.5-10.1); MAGNESIUM 2.3 mg/dL (1.8-2.4); TOT PROT 6.6 g/dl (6.4-8.2)
[2020-10-18 08:22] LABS: ALBUMIN 2.8 g/dl (3.4-5.0)
[2020-10-18] MEDS ORDERED: CLOPIDOGREL BISULFATE 75 MG TABLET (FP) PO SCH (10:00)
[2020-10-18] MEDS ORDERED: cefTRIAXone SODIUM 1 GM VIAL ONE (10:02)
[2020-10-18] MEDS ORDERED: DEXTROSE 5%-WATER - 50 ML IVPB ONE (10:02)
[2020-10-18] MEDS: PANTOPRAZOLE SODIUM 40 MG VIAL IVPUSH SCH (10:22)
[2020-10-18] MEDS: CEFTRIAXONE 1 GM in DEXTROSE 5%-WATER - 50 ML IVPB SCH (10:23)
[2020-10-18] MEDS: predniSONE 20 MG TABLET (UD) PO SCH (10:24)
[2020-10-18] MEDS: CARVEDILOL 3.125 MG TABLET (FP) PO SCH ×2 (10:24→21:36)
[2020-10-18] MEDS: TAMSULOSIN HCL 0.4 MG CAP PO SCH (10:24)
[2020-10-18] MEDS: GABAPENTIN 300 MG CAPSULE PO SCH ×2 (10:24→21:36)
[2020-10-18] MEDS: HEPARIN NA (PORCINE) 5,000 UNITS/ML 1ML VIAL SQ SCH ×2 (10:25→21:37)
[2020-10-18] MEDS: BUDESONIDE/FORMETEROL FUMARATE 160/4.5 mcg INHALER IH SCH ×2 (11:49→21:40)
[2020-10-18] MEDS: AZITHROMYCIN IVPB 500 MG/250 ML BAG IVPB SCH (11:49)
[2020-10-18] MEDS ORDERED: SODIUM CHLORIDE 1,000 ML IV SCH (14:30)
[2020-10-18] MEDS: COLLAGENASE CLOSTRIDIUM HIST. 30 GRAMS TUBE TP SCH (15:50)
[2020-10-18 17:09] LABS: HEP B CORE AB, TOT Negative (Negative)
[2020-10-18] MEDS ORDERED: BISACODYL 5 MG TABLET.DR (FP) PO ONE (20:00)
[2020-10-18] MEDS ORDERED: INSULIN (NOVOLOG) ASPART 100 UNITS/ML 10ML VIAL ONE (20:54)
[2020-10-18] MEDS: ROSUVASTATIN CA 20 MG TABLET (FP) PO SCH (21:37)
[2020-10-19] MEDS: POLYETHYLENE GLYCOL 3350 119 GM BTL PO SCH ×3 (05:13→21:33)
[2020-10-19] MEDS: INSULIN (LEVEMIR) 100 UNITS/ML UNITS SQ SCH ×2 (06:06→21:38)
[2020-10-19] MEDS: INSULIN SLIDING SCALE (NOVOLOG) 1 VIAL SQ SCH ×4 (06:06→21:36)
[2020-10-19 07:26] LABS: BASO % 0.1 % (0-2.0); EOS % 0.2 % (0-4.5); HEMATOCRIT 30.2 % (35.4-49); HEMOGLOBIN 10.3 GM/dL (11.7-16.9); LYMPH % 13.5 % (8-40); MCH 26.8 pg (25.7-33.7); MCHC 34.2 g/dl (32.0-35.9); MEAN CELL VOLUME 78.4 fl (80-96); MEAN PLT VOLUME 7.8 fl (7.5-11.1); MONO % 5.3 % (3.8-10.2); NEUT % 80.9 % (42.8-82.8); PLATELET COUNT 125 K/MM3 (134-434); RBC 3.86 M/mm3 (4.00-5.60); RDW 17.6 % (11.9-15.9); WHITE BLOOD COUNT 7.2 K/mm3 (4.0-10.0)
[2020-10-19 07:47] LABS: ALBUMIN 2.8 g/dl (3.4-5.0); BLOOD UREA NITROGEN 54.6 mg/dL (7-18); CALCIUM 8.4 mg/dL (8.5-10.1); MAGNESIUM 2.2 mg/dL (1.8-2.4)
[2020-10-19 07:50] LABS: CREATININE 1.3 mg/dL (0.55-1.3)
[2020-10-19 07:51] LABS: PHOSPHOROUS 3.4 mg/dL (2.5-4.9)
[2020-10-19 07:52] LABS: BILIRUBIN,TOTAL 0.4 mg/dL (0.2-1); TOT PROT 6.6 g/dl (6.4-8.2)
[2020-10-19] MEDS: ALBUTEROL SO4 2.5/IPRATROPIUM 0.5 INH SOL 3 ML VIAL.NEB. NEB SCH ×4 (08:14→20:07)
[2020-10-19] MEDS ORDERED: DEXTROSE 5%-WATER - 50 ML IVPB ONE (08:44)
[2020-10-19] MEDS ORDERED: cefTRIAXone SODIUM 1 GM VIAL ONE (08:44)
[2020-10-19] MEDS: PANTOPRAZOLE SODIUM 40 MG VIAL IVPUSH SCH (09:43)
[2020-10-19] MEDS: predniSONE 20 MG TABLET (UD) PO SCH (09:43)
[2020-10-19] MEDS: CARVEDILOL 3.125 MG TABLET (FP) PO SCH ×2 (09:46→21:35)
[2020-10-19] MEDS: HEPARIN NA (PORCINE) 5,000 UNITS/ML 1ML VIAL SQ SCH ×2 (09:46→21:35)
[2020-10-19] MEDS: GABAPENTIN 300 MG CAPSULE PO SCH ×2 (09:46→21:34)
[2020-10-19] MEDS: TAMSULOSIN HCL 0.4 MG CAP PO SCH (09:46)
[2020-10-19] MEDS: ASPIRIN 81 MG CHEWABLE TABLETS PO SCH (09:46)
[2020-10-19] MEDS: BUDESONIDE/FORMETEROL FUMARATE 160/4.5 mcg INHALER IH SCH ×2 (09:47→21:37)
[2020-10-19] MEDS: CEFTRIAXONE 1 GM in DEXTROSE 5%-WATER - 50 ML IVPB SCH (09:47)
[2020-10-19] MEDS: COLLAGENASE CLOSTRIDIUM HIST. 30 GRAMS TUBE TP SCH (09:47)
[2020-10-19] MEDS: AZITHROMYCIN IVPB 500 MG/250 ML BAG IVPB SCH (11:36)
[2020-10-19] MEDS: ROSUVASTATIN CA 20 MG TABLET (FP) PO SCH (21:35)
[2020-10-20] MEDS ORDERED: ACETAMINOPHEN 325 MG TABLET (FP) PO ONE ×2 (05:23→18:28)
[2020-10-20] MEDS: POLYETHYLENE GLYCOL 3350 119 GM BTL PO SCH ×3 (05:37→21:50)
[2020-10-20] MEDS: INSULIN (LEVEMIR) 100 UNITS/ML UNITS SQ SCH ×2 (06:24→22:06)
[2020-10-20] MEDS: INSULIN SLIDING SCALE (NOVOLOG) 1 VIAL SQ SCH ×4 (06:25→22:07)
[2020-10-20] MEDS: ALBUTEROL SO4 2.5/IPRATROPIUM 0.5 INH SOL 3 ML VIAL.NEB. NEB SCH ×4 (07:30→20:30)
[2020-10-20] MEDS ORDERED: cefTRIAXone SODIUM 1 GM VIAL ONE (09:30)
[2020-10-20] MEDS ORDERED: DEXTROSE 5%-WATER - 50 ML IVPB ONE (09:30)
[2020-10-20] MEDS: AMINO ACIDS/PROTEIN HYDROLYS 30 ML LIQUID.PKT PO SCH (09:49)
[2020-10-20] MEDS: PANTOPRAZOLE SODIUM 40 MG VIAL IVPUSH SCH (09:49)
[2020-10-20] MEDS: GABAPENTIN 300 MG CAPSULE PO SCH ×2 (09:50→21:46)
[2020-10-20] MEDS: HEPARIN NA (PORCINE) 5,000 UNITS/ML 1ML VIAL SQ SCH ×2 (09:50→21:47)
[2020-10-20] MEDS: TAMSULOSIN HCL 0.4 MG CAP PO SCH (09:50)
[2020-10-20] MEDS: ASPIRIN 81 MG CHEWABLE TABLETS PO SCH (09:50)
[2020-10-20] MEDS: MULTIVIT-MINERALS ORAL LIQUID PO SCH (09:50)
[2020-10-20] MEDS: CARVEDILOL 3.125 MG TABLET (FP) PO SCH ×2 (09:50→21:46)
[2020-10-20] MEDS: predniSONE 20 MG TABLET (UD) PO SCH (09:50)
[2020-10-20] MEDS: BUDESONIDE/FORMETEROL FUMARATE 160/4.5 mcg INHALER IH SCH ×2 (09:52→22:17)
[2020-10-20] MEDS: COLLAGENASE CLOSTRIDIUM HIST. 30 GRAMS TUBE TP SCH (09:52)
[2020-10-20] MEDS ORDERED: MINERAL OIL ENEMA 133 ML ENEMA PR ONE (11:02)
[2020-10-20] MEDS ORDERED: ACETAMINOPHEN 325 MG TABLET (FP) PO PRN (18:27)
[2020-10-20] MEDS: ROSUVASTATIN CA 20 MG TABLET (FP) PO SCH (21:47)
[2020-10-20] MEDS ORDERED: PT OWN MED DRAWER 7, Y5N ONE (22:02)
[2020-10-21] MEDS: POLYETHYLENE GLYCOL 3350 119 GM BTL PO SCH ×3 (05:48→23:34)
[2020-10-21] MEDS: INSULIN (LEVEMIR) 100 UNITS/ML UNITS SQ SCH ×2 (06:32→23:04)
[2020-10-21] MEDS: INSULIN SLIDING SCALE (NOVOLOG) 1 VIAL SQ SCH ×4 (06:32→23:02)
[2020-10-21] MEDS: ALBUTEROL SO4 2.5/IPRATROPIUM 0.5 INH SOL 3 ML VIAL.NEB. NEB SCH ×4 (07:14→19:30)
[2020-10-21 08:07] LABS: BASO % 0.1 % (0-2.0); HEMATOCRIT 33.6 % (35.4-49); LYMPH % 13.9 % (8-40); MCH 26.1 pg (25.7-33.7); MCHC 32.7 g/dl (32.0-35.9); MEAN CELL VOLUME 79.8 fl (80-96); MEAN PLT VOLUME 8.2 fl (7.5-11.1); MONO % 5.8 % (3.8-10.2); NEUT % 80.2 % (42.8-82.8); PLATELET COUNT 128 K/MM3 (134-434); RBC 4.21 M/mm3 (4.00-5.60); RDW 17.5 % (11.9-15.9); WHITE BLOOD COUNT 6.4 K/mm3 (4.0-10.0)
[2020-10-21 08:30] LABS: BLOOD UREA NITROGEN 41.3 mg/dL (7-18); CALCIUM 9.1 mg/dL (8.5-10.1); MAGNESIUM 2.3 mg/dL (1.8-2.4)
[2020-10-21 08:34] LABS: CREATININE 1.1 mg/dL (0.55-1.3)
[2020-10-21 08:35] LABS: BILIRUBIN,TOTAL 0.2 mg/dL (0.2-1); TOT PROT 6.8 g/dl (6.4-8.2)
[2020-10-21] MEDS ORDERED: PEG 3350/NA SULF BICARB CL/KCL 4000 ML SOLN.RECON PO ONE (09:00)
[2020-10-21] MEDS: HEPARIN NA (PORCINE) 5,000 UNITS/ML 1ML VIAL SQ SCH (09:28)
[2020-10-21] MEDS: PANTOPRAZOLE SODIUM 40 MG VIAL IVPUSH SCH (09:28)
[2020-10-21] MEDS: predniSONE 20 MG TABLET (UD) PO SCH (09:28)
[2020-10-21] MEDS: CARVEDILOL 3.125 MG TABLET (FP) PO SCH ×2 (09:28→23:34)
[2020-10-21] MEDS: GABAPENTIN 300 MG CAPSULE PO SCH ×2 (09:28→23:34)
[2020-10-21] MEDS: ASPIRIN 81 MG CHEWABLE TABLETS PO SCH (09:29)
[2020-10-21] MEDS: MULTIVIT-MINERALS ORAL LIQUID PO SCH (09:29)
[2020-10-21] MEDS: BUDESONIDE/FORMETEROL FUMARATE 160/4.5 mcg INHALER IH SCH ×2 (09:29→23:35)
[2020-10-21] MEDS: COLLAGENASE CLOSTRIDIUM HIST. 30 GRAMS TUBE TP SCH (09:29)
[2020-10-21] MEDS: TAMSULOSIN HCL 0.4 MG CAP PO SCH (09:29)
[2020-10-21] MEDS: AMINO ACIDS/PROTEIN HYDROLYS 30 ML LIQUID.PKT PO SCH (09:29)
[2020-10-21 13:22] LABS: ANISOCYTOSIS 0; MACROCYTOSIS 0; PLATELET ESTIMATE DECREASED
[2020-10-21] MEDS ORDERED: FUROSEMIDE 40 MG/4 ML INJECTABLE VIAL IVPUSH ONE (15:26)
[2020-10-21] MEDS ORDERED: ONDANSETRON 4 MG/2 ML VIAL IVPUSH ONE (18:36)
[2020-10-21] MEDS ORDERED: ACETAMINOPHEN 325 MG TABLET (FP) PO ONE (22:17)
[2020-10-21] MEDS ORDERED: ACETAMINOPHEN 650 MG/20.3 ML ORAL SOLUTION (CUPS) NGT ONE (22:41)
[2020-10-21] MEDS: ROSUVASTATIN CA 20 MG TABLET (FP) PO SCH (23:33)
[2020-10-22] MEDS: POLYETHYLENE GLYCOL 3350 119 GM BTL PO SCH ×3 (05:34→23:29)
[2020-10-22] MEDS: INSULIN (LEVEMIR) 100 UNITS/ML UNITS SQ SCH ×2 (06:25→22:20)
[2020-10-22] MEDS: INSULIN SLIDING SCALE (NOVOLOG) 1 VIAL SQ SCH ×4 (06:25→22:10)
[2020-10-22 07:43] LABS: CHLORIDE 106 mmol/L (98-107); SODIUM 141 mmol/L (136-145)
[2020-10-22 07:45] LABS: ALBUMIN 3.1 g/dl (3.4-5.0); ANION GAP 8 MMOL/L (8-16); BLOOD UREA NITROGEN 37.4 mg/dL (7-18); CALCIUM 9.4 mg/dL (8.5-10.1); CO2 28 mmol/L (21-32)
[2020-10-22 07:46] LABS: GLUCOSE,RANDOM 134 mg/dL (74-106)
[2020-10-22 07:48] LABS: SGOT/AST 51 U/L (15-37); SGPT/ALT 143 U/L (13-61)
[2020-10-22 07:49] LABS: CREATININE 1.2 mg/dL (0.55-1.3)
[2020-10-22 07:50] LABS: BASO % 0.1 % (0-2.0); BILIRUBIN,TOTAL 0.4 mg/dL (0.2-1); HEMATOCRIT 35.8 % (35.4-49); HEMOGLOBIN 11.5 GM/dL (11.7-16.9); LYMPH % 11.7 % (8-40); MCH 25.9 pg (25.7-33.7); MCHC 32.2 g/dl (32.0-35.9); MEAN CELL VOLUME 80.5 fl (80-96); MEAN PLT VOLUME 8.1 fl (7.5-11.1); MONO % 5.6 % (3.8-10.2); NEUT % 82.6 % (42.8-82.8); PLATELET COUNT 136 K/MM3 (134-434); RBC 4.44 M/mm3 (4.00-5.60); TOT PROT 6.9 g/dl (6.4-8.2); WHITE BLOOD COUNT 13.2 K/mm3 (4.0-10.0)
[2020-10-22 07:51] LABS: ALK PHOS 83 U/L (45-117)
[2020-10-22] MEDS: ALBUTEROL SO4 2.5/IPRATROPIUM 0.5 INH SOL 3 ML VIAL.NEB. NEB SCH ×4 (08:55→19:57)
[2020-10-22] MEDS ORDERED: ONDANSETRON 4 MG/2 ML VIAL IVPUSH PRN (10:28)
[2020-10-22] MEDS: PANTOPRAZOLE SODIUM 40 MG VIAL IVPUSH SCH (11:05)
[2020-10-22] MEDS: GABAPENTIN 300 MG CAPSULE PO SCH ×2 (11:05→22:06)
[2020-10-22] MEDS: TAMSULOSIN HCL 0.4 MG CAP PO SCH (11:05)
[2020-10-22] MEDS: predniSONE 20 MG TABLET (UD) PO SCH (11:05)
[2020-10-22] MEDS: ASPIRIN 81 MG CHEWABLE TABLETS PO SCH (11:05)
[2020-10-22] MEDS: CARVEDILOL 3.125 MG TABLET (FP) PO SCH ×2 (11:10→22:06)
[2020-10-22] MEDS: BUDESONIDE/FORMETEROL FUMARATE 160/4.5 mcg INHALER IH SCH ×2 (11:10→22:05)
[2020-10-22] MEDS: COLLAGENASE CLOSTRIDIUM HIST. 30 GRAMS TUBE TP SCH (11:11)
[2020-10-22] MEDS: MULTIVIT-MINERALS ORAL LIQUID PO SCH (11:45)
[2020-10-22] MEDS: AMINO ACIDS/PROTEIN HYDROLYS 30 ML LIQUID.PKT PO SCH (11:45)
[2020-10-22] MEDS ORDERED: ONDANSETRON 4 MG/2 ML VIAL IVPB PRN (12:15)
[2020-10-22 13:14] LABS: EPI CELLS >36 /uL (0-25.1); HYALINE CASTS 20 /uL (0-3.1); URINE APPEARANCE CLEAR; URINE BACTERIA 18 /uL (0-1359); URINE BILIRUBIN NEGATIVE (NEGATIVE); URINE COLOR YELLOW; URINE GLUCOSE (UA) NEGATIVE (NEGATIVE); URINE KETONE NEGATIVE (NEGATIVE); URINE LEUK ESTERASE 2+ (NEGATIVE); URINE NITRITE NEGATIVE (NEGATIVE); URINE PROTEIN 2+ (NEGATIVE); URINE RBC 54 /uL (0-23.9); URINE UROBILINOGEN 0.2 mg/dL (0.2-1.0); URINE WBC 428 /uL (0-25.8)
[2020-10-22 13:54] LABS: YEAST MANY (NEGATIVE)
[2020-10-22] MEDS ORDERED: CEFTRIAXONE 1 GM in DEXTROSE 5%-WATER - 50 ML IVPB ONE (16:25)
[2020-10-22] MEDS ORDERED: DEXTROSE 5%-WATER - 50 ML IVPB ONE (16:37)
[2020-10-22] MEDS ORDERED: cefTRIAXone SODIUM 1 GM VIAL ONE (16:37)
[2020-10-22] MEDS: ROSUVASTATIN CA 20 MG TABLET (FP) PO SCH (22:06)
[2020-10-22] MEDS: HEPARIN NA (PORCINE) 5,000 UNITS/ML 1ML VIAL SQ SCH (22:08)
[2020-10-23] MEDS: POLYETHYLENE GLYCOL 3350 119 GM BTL PO SCH ×4 (05:53→22:00)
[2020-10-23] MEDS: INSULIN (LEVEMIR) 100 UNITS/ML UNITS SQ SCH ×2 (06:03→21:19)
[2020-10-23] MEDS: INSULIN SLIDING SCALE (NOVOLOG) 1 VIAL SQ SCH ×4 (06:07→21:22)
[2020-10-23] MEDS ORDERED: INSULIN (NOVOLOG) ASPART 100 UNITS/ML 10ML VIAL ONE (06:22)
[2020-10-23] MEDS: ALBUTEROL SO4 2.5/IPRATROPIUM 0.5 INH SOL 3 ML VIAL.NEB. NEB SCH ×3 (08:59→20:45)
[2020-10-23] MEDS ORDERED: PT OWN MED DRAWER 7, Y5N ONE (10:09)
[2020-10-23] MEDS: ASPIRIN 81 MG CHEWABLE TABLETS PO SCH (10:16)
[2020-10-23] MEDS: CARVEDILOL 3.125 MG TABLET (FP) PO SCH ×2 (10:17→21:23)
[2020-10-23] MEDS: TAMSULOSIN HCL 0.4 MG CAP PO SCH (10:17)
[2020-10-23] MEDS: predniSONE 20 MG TABLET (UD) PO SCH (10:17)
[2020-10-23] MEDS: MULTIVIT-MINERALS ORAL LIQUID PO SCH (10:18)
[2020-10-23] MEDS: PANTOPRAZOLE SODIUM 40 MG VIAL IVPUSH SCH (10:18)
[2020-10-23] MEDS: HEPARIN NA (PORCINE) 5,000 UNITS/ML 1ML VIAL SQ SCH ×2 (10:18→21:23)
[2020-10-23] MEDS: GABAPENTIN 300 MG CAPSULE PO SCH ×2 (10:18→21:22)
[2020-10-23] MEDS: AMINO ACIDS/PROTEIN HYDROLYS 30 ML LIQUID.PKT PO SCH (10:18)
[2020-10-23] MEDS: BUDESONIDE/FORMETEROL FUMARATE 160/4.5 mcg INHALER IH SCH ×2 (10:20→21:22)
[2020-10-23] MEDS: COLLAGENASE CLOSTRIDIUM HIST. 30 GRAMS TUBE TP SCH (10:20)
[2020-10-23 11:22] LABS: BASO % 0.2 % (0-2.0); EOS % 0.3 % (0-4.5); HEMOGLOBIN 10.4 GM/dL (11.7-16.9); LYMPH % 10.5 % (8-40); MCH 26.1 pg (25.7-33.7); MCHC 32.3 g/dl (32.0-35.9); MEAN CELL VOLUME 80.9 fl (80-96); MEAN PLT VOLUME 8.2 fl (7.5-11.1); MONO % 4.4 % (3.8-10.2); NEUT % 84.6 % (42.8-82.8); PLATELET COUNT 118 10^3/uL (134-434); RBC 3.96 M/mm3 (4.00-5.60); RDW 18.5 % (11.9-15.9); WHITE BLOOD COUNT 7.7 K/mm3 (4.0-10.0)
[2020-10-23 11:41] LABS: ALBUMIN 2.7 g/dl (3.4-5.0); BLOOD UREA NITROGEN 29.9 mg/dL (7-18); CALCIUM 9.2 mg/dL (8.5-10.1)
[2020-10-23 11:44] LABS: CREATININE 1.1 mg/dL (0.55-1.3)
[2020-10-23 11:46] LABS: BILIRUBIN,TOTAL 0.4 mg/dL (0.2-1); TOT PROT 6.1 g/dl (6.4-8.2)
[2020-10-23 14:59] VITALS: BMI 22.4
[2020-10-23] MEDS: ROSUVASTATIN CA 20 MG TABLET (FP) PO SCH (21:27)
[2020-10-24] MEDS: POLYETHYLENE GLYCOL 3350 119 GM BTL PO SCH ×2 (05:00→11:49)
[2020-10-24] MEDS: INSULIN SLIDING SCALE (NOVOLOG) 1 VIAL SQ SCH ×4 (06:24→21:04)
[2020-10-24] MEDS: INSULIN (LEVEMIR) 100 UNITS/ML UNITS SQ SCH ×2 (06:24→21:02)
[2020-10-24] MEDS: ALBUTEROL SO4 2.5/IPRATROPIUM 0.5 INH SOL 3 ML VIAL.NEB. NEB SCH ×4 (07:45→20:45)
[2020-10-24 07:50] LABS: BASO % 0.1 % (0-2.0); EOS % 0.1 % (0-4.5); HEMATOCRIT 30.4 % (35.4-49); HEMOGLOBIN 10.3 GM/dL (11.7-16.9); LYMPH % 9.5 % (8-40); MCHC 33.7 g/dl (32.0-35.9); MEAN PLT VOLUME 8.1 fl (7.5-11.1); MONO % 4.2 % (3.8-10.2); NEUT % 86.1 % (42.8-82.8); PLATELET COUNT 128 10^3/uL (134-434); RDW 17.9 % (11.9-15.9); WHITE BLOOD COUNT 7.3 K/mm3 (4.0-10.0)
[2020-10-24 07:56] LABS: BLOOD UREA NITROGEN 31.1 mg/dL (7-18)
[2020-10-24 07:59] LABS: CREATININE 1.1 mg/dL (0.55-1.3)
[2020-10-24] MEDS: HEPARIN NA (PORCINE) 5,000 UNITS/ML 1ML VIAL SQ SCH ×2 (11:47→21:02)
[2020-10-24] MEDS: PANTOPRAZOLE SODIUM 40 MG VIAL IVPUSH SCH (11:47)
[2020-10-24] MEDS: AMINO ACIDS/PROTEIN HYDROLYS 30 ML LIQUID.PKT PO SCH (11:48)
[2020-10-24] MEDS: TAMSULOSIN HCL 0.4 MG CAP PO SCH (11:48)
[2020-10-24] MEDS: ASPIRIN 81 MG CHEWABLE TABLETS PO SCH (11:48)
[2020-10-24] MEDS: GABAPENTIN 300 MG CAPSULE PO SCH ×2 (11:49→21:02)
[2020-10-24] MEDS: CARVEDILOL 3.125 MG TABLET (FP) PO SCH ×2 (11:49→21:02)
[2020-10-24] MEDS: MULTIVIT-MINERALS ORAL LIQUID PO SCH (11:49)
[2020-10-24] MEDS: COLLAGENASE CLOSTRIDIUM HIST. 30 GRAMS TUBE TP SCH (11:58)
[2020-10-24] MEDS: BUDESONIDE/FORMETEROL FUMARATE 160/4.5 mcg INHALER IH SCH ×2 (11:59→21:04)
[2020-10-24] MEDS ORDERED: INSULIN (NOVOLOG) ASPART 100 UNITS/ML 10ML VIAL ONE (12:51)
[2020-10-24] MEDS: ROSUVASTATIN CA 20 MG TABLET (FP) PO SCH (21:02)
[2020-10-25] MEDS: INSULIN SLIDING SCALE (NOVOLOG) 1 VIAL SQ SCH ×4 (06:01→21:27)
[2020-10-25 07:40] LABS: BASO % 0.1 % (0-2.0); HEMATOCRIT 32.7 % (35.4-49); HEMOGLOBIN 10.8 GM/dL (11.7-16.9); LYMPH % 17.6 % (8-40); MCH 26.4 pg (25.7-33.7); MCHC 33.1 g/dl (32.0-35.9); MEAN CELL VOLUME 79.9 fl (80-96); MEAN PLT VOLUME 8.1 fl (7.5-11.1); MONO % 6.6 % (3.8-10.2); NEUT % 73.7 % (42.8-82.8); PLATELET COUNT 128 10^3/uL (134-434); RBC 4.09 M/mm3 (4.00-5.60); RDW 17.6 % (11.9-15.9)
[2020-10-25] MEDS: ALBUTEROL SO4 2.5/IPRATROPIUM 0.5 INH SOL 3 ML VIAL.NEB. NEB SCH ×3 (07:40→16:12)
[2020-10-25 07:44] LABS: INR 0.97 (0.83-1.09); PROTHROMBIN TIME (PATIENT) 11.8 SEC (9.7-13.0)
[2020-10-25 07:55] LABS: BLOOD UREA NITROGEN 33.2 mg/dL (7-18); CALCIUM 8.4 mg/dL (8.5-10.1)
[2020-10-25] MEDS: PANTOPRAZOLE SODIUM 40 MG VIAL IVPUSH SCH (09:01)
[2020-10-25] MEDS: GABAPENTIN 300 MG CAPSULE PO SCH ×2 (09:01→21:29)
[2020-10-25] MEDS: MULTIVIT-MINERALS ORAL LIQUID PO SCH (09:01)
[2020-10-25] MEDS: CARVEDILOL 3.125 MG TABLET (FP) PO SCH ×2 (09:01→21:29)
[2020-10-25] MEDS: AMINO ACIDS/PROTEIN HYDROLYS 30 ML LIQUID.PKT PO SCH (09:01)
[2020-10-25] MEDS: POLYETHYLENE GLYCOL 3350 119 GM BTL PO SCH (09:01)
[2020-10-25] MEDS: TAMSULOSIN HCL 0.4 MG CAP PO SCH (09:01)
[2020-10-25] MEDS: ASPIRIN 81 MG CHEWABLE TABLETS PO SCH (09:01)
[2020-10-25] MEDS: BUDESONIDE/FORMETEROL FUMARATE 160/4.5 mcg INHALER IH SCH ×2 (09:02→21:30)
[2020-10-25] MEDS: COLLAGENASE CLOSTRIDIUM HIST. 30 GRAMS TUBE TP SCH (10:57)
[2020-10-25] MEDS: INSULIN (LEVEMIR) 100 UNITS/ML UNITS SQ SCH (21:27)
[2020-10-25] MEDS: ROSUVASTATIN CA 20 MG TABLET (FP) PO SCH (21:30)
[2020-10-25] MEDS: HEPARIN NA (PORCINE) 5,000 UNITS/ML 1ML VIAL SQ SCH (21:39)
[2020-10-25] MEDS ORDERED: ACETAMINOPHEN 325 MG TABLET (FP) PO PRN (22:13)
[2020-10-26] MEDS: INSULIN SLIDING SCALE (NOVOLOG) 1 VIAL SQ SCH ×2 (06:12→11:15)
[2020-10-26] MEDS: INSULIN (LEVEMIR) 100 UNITS/ML UNITS SQ SCH (06:12)
[2020-10-26] MEDS: ALBUTEROL SO4 2.5/IPRATROPIUM 0.5 INH SOL 3 ML VIAL.NEB. NEB SCH ×2 (07:43→11:20)
[2020-10-26] MEDS: CARVEDILOL 3.125 MG TABLET (FP) PO SCH (09:33)
[2020-10-26] MEDS: ASPIRIN 81 MG CHEWABLE TABLETS PO SCH (09:33)
[2020-10-26] MEDS: GABAPENTIN 300 MG CAPSULE PO SCH (09:33)
[2020-10-26] MEDS: TAMSULOSIN HCL 0.4 MG CAP PO SCH (09:33)
[2020-10-26] MEDS: AMINO ACIDS/PROTEIN HYDROLYS 30 ML LIQUID.PKT PO SCH (09:33)
[2020-10-26] MEDS: MULTIVIT-MINERALS ORAL LIQUID PO SCH (09:33)
[2020-10-26] MEDS: COLLAGENASE CLOSTRIDIUM HIST. 30 GRAMS TUBE TP SCH (09:34)
[2020-10-26] MEDS: BUDESONIDE/FORMETEROL FUMARATE 160/4.5 mcg INHALER IH SCH (09:34)
[2020-10-26] MEDS: HEPARIN NA (PORCINE) 5,000 UNITS/ML 1ML VIAL SQ SCH (09:34)
[2020-10-26] MEDS: POLYETHYLENE GLYCOL 3350 119 GM BTL PO SCH (09:34)
[2020-10-26] MEDS ORDERED: PANTOPRAZOLE 20 MG TABLET PO SCH (10:00)
[2020-10-26] MEDS ORDERED: FLUCONAZOLE 100 MG TABLET (UD) PO SCH (11:15)
[2020-10-26] MEDS ORDERED: FLUCONAZOLE 100 MG TABLET (UD) PO ONE (14:15)
[2020-10-26 14:49] VITALS: BP 123/53; PULSE 68; TEMP 97.4
== END 2020-10-26 16:55 | disposition home health service (06) | DRG 193 ==
LOC: JER 20:38 → JERBED 10-17 01:10 → J7W 10-17 02:58
PROVIDERS: ADMIT Internal Medicine; ATTEND Internal Medicine
PROC: 0DB68ZX Excision of Stomach, Via Natural or Artificial Opening Endoscopic, Diagnostic (ICD-10-PCS; 2020-10-25)
PROC: 0DB58ZX Excision of Esophagus, Via Natural or Artificial Opening Endoscopic, Diagnostic (ICD-10-PCS; principal; 2020-10-25 11:30)
DX: J13 Pneumonia due to Streptococcus pneumoniae (principal); L89.613 Pressure ulcer of right heel, stage 3; L89.624 Pressure ulcer of left heel, stage 4; J44.1 Chronic obstructive pulmonary disease with (acute) exacerbation; N39.0 Urinary tract infection, site not specified; I13.0 Hypertensive heart and chronic kidney disease with heart failure and stage 1 through stage 4 chronic kidney disease, or unspecified chronic kidney disease; I50.42 Chronic combined systolic (congestive) and diastolic (congestive) heart failure; N17.9 Acute kidney failure, unspecified; B37.81 Candidal esophagitis; R64 Cachexia; I25.119 Atherosclerotic heart disease of native coronary artery with unspecified angina pectoris; E11.22 Type 2 diabetes mellitus with diabetic chronic kidney disease; N18.9 Chronic kidney disease, unspecified; D64.9 Anemia, unspecified; E87.5 Hyperkalemia; M54.5 Low back pain; K59.09 Other constipation; I25.2 Old myocardial infarction; E11.51 Type 2 diabetes mellitus with diabetic peripheral angiopathy without gangrene; I44.7 Left bundle-branch block, unspecified; R74.8 Abnormal levels of other serum enzymes; I25.5 Ischemic cardiomyopathy; M10.9 Gout, unspecified; N40.0 Benign prostatic hyperplasia without lower urinary tract symptoms; K29.70 Gastritis, unspecified, without bleeding; K22.0 Achalasia of cardia; Z68.22 Body mass index [BMI] 22.0-22.9, adult; Z95.1 Presence of aortocoronary bypass graft; Z87.11 Personal history of peptic ulcer disease
CPT/HCPCS: 36415; 36600; 71045-TC-FY; 74177-TC; 80048; 80053; 81003; 82272; 82728; 82803; 82962; 83540; 83550; 83605; 83735; 83880; 84100; 84484; 85025; 85610; 85730; 86704; 86706; 86707; 86708; 86709; 87040; 87077; 87081; 87086; 87340; 87899; 88305-TC; 93005; 93010; 94010; 94640; 97116-GP; 97161-GP; 99285-25; C9803; J1644; Q9967; U0003; U0005

== ENCOUNTER 2021-06-05 04:07 | Day surgery (SDC) | payer OTHER, MEDICARE ==
[2021-06-04 15:21] VITALS: BMI 20.9
[2021-06-05] MEDS ORDERED: PROPOFOL 20 ML ONE (12:09)
[2021-06-05] MEDS ORDERED: LIDOCAINE HCL/PF 2% SDV 5ML VIAL ONE (12:09)
[2021-06-05] MEDS ORDERED: MIDAZOLAM HCL 2 MG/2 ML SINGLE DOSE VIAL ONE (12:09)
[2021-06-05] MEDS ORDERED: ceFAZolin SODIUM 1 GM VIAL ONE (12:34)
[2021-06-05] MEDS ORDERED: ceFAZolin SODIUM 1 GM VIAL IVPB ONE (12:36)
[2021-06-05] MEDS ORDERED: ONDANSETRON 4 MG/2 ML VIAL IVPUSH PRN (13:19)
[2021-06-05] MEDS ORDERED: LACTATED RINGERS SOLUTION 1,000 ML IV SCH (13:30)
[2021-06-05 16:23] VITALS: BP 108/58; PULSE 70; TEMP 97.1
== END 2021-06-05 16:20 | disposition home or self-care (01) ==
LOC: JASU-SURG 04:07
PROVIDERS: ATTEND Urology
PROC: 0TBB8ZX Excision of Bladder, Via Natural or Artificial Opening Endoscopic, Diagnostic (ICD-10-PCS; principal; 2021-06-05 10:00)
DX: N39.0 Urinary tract infection, site not specified (principal); R31.9 Hematuria, unspecified
CPT/HCPCS: 82962; 94760

== ENCOUNTER 2021-10-21 13:42 | Inpatient (IN) | payer OTHER, MEDICARE ==
[2021-10-21] MEDS ORDERED: SODIUM CHLORIDE 0.9% 500 ML INFUS.BAG IV ONE ×2 (14:26→16:19)
[2021-10-21 14:35] VITALS: BMI 22.3
[2021-10-21] MEDS ORDERED: PIPERACILLIN/TAZOB 3.375 GM 3.375 GM in DEXTROSE 5%-WATER - 50 ML IVPB ONE (14:43)
[2021-10-21] MEDS ORDERED: VANCOMYCIN 1 GM in D5W (PRE-DOCKED) 1,000 MG/250 ML IVPB ONE (14:45)
[2021-10-21] MEDS ORDERED: PIPERACILLIN/TAZOB 3.375 GM 3.375 GM/50 ML BAG IVPB ONE (15:06)
[2021-10-21] MEDS ORDERED: VANCOMYCIN 1 GRAM (PRE-DOCKED) 1,000 MG/250 ML BAG IVPB ONE (15:06)
[2021-10-21 15:23] LABS: BASO % 0.5 % (0-2.0); EOS % 0.7 % (0-4.5); HEMATOCRIT 36.3 % (35.4-49); HEMOGLOBIN 12.1 GM/dL (11.7-16.9); LYMPH % 6.7 % (8-40); MCH 25.8 pg (25.7-33.7); MCHC 33.4 g/dl (32.0-35.9); MEAN CELL VOLUME 77.3 fl (80-96); MEAN PLT VOLUME 7.7 fl (7.5-11.1); MONO % 5.5 % (3.8-10.2); NEUT % 86.6 % (42.8-82.8); PLATELET COUNT 141 10^3/uL (134-434)
[2021-10-21 15:29] LABS: INR 1.09 (0.83-1.09); PROTHROMBIN TIME (PATIENT) 12.6 SEC (9.7-13.0)
[2021-10-21 15:35] LABS: VENOUS BASE EXCESS -5.3 mmol/L (-2-2); VENOUS O2 SATURATION 92.8 % (70-80); VENOUS PH 7.346 (7.310-7.410)
[2021-10-21 16:11] LABS: ALBUMIN 3.1 g/dl (3.4-5.0); BLOOD UREA NITROGEN 36.2 mg/dL (7-18); CALCIUM 9.2 mg/dL (8.5-10.1)
[2021-10-21 16:14] LABS: CREATININE 1.2 mg/dL (0.55-1.3)
[2021-10-21] MEDS ORDERED: SODIUM ZIRCONIUM CYCLOSILICATE (LOKELMA) 5 GM PACKET PO SCH (16:15)
[2021-10-21 16:16] LABS: BILIRUBIN,TOTAL 0.7 mg/dL (0.2-1); TOT PROT 6.9 g/dl (6.4-8.2)
[2021-10-21] MEDS ORDERED: ACETAMINOPHEN 1000 MG/100 ML BAG IVPB ONE (18:13)
[2021-10-21] MEDS ORDERED: ACETAMINOPHEN INJECTION 100 ML IVPB ONE (18:52)
[2021-10-21] MEDS ORDERED: SODIUM CHLORIDE 1,000 ML IV SCH (19:30)
[2021-10-21 19:57] LABS: EPI CELLS 15 /uL (0-25.1); HYALINE CASTS 17 /uL (0-3.1); URINE APPEARANCE CLOUDY; URINE BACTERIA 7 /uL (0-1359); URINE BILIRUBIN NEGATIVE (NEGATIVE); URINE COLOR YELLOW; URINE GLUCOSE (UA) NEGATIVE (NEGATIVE); URINE KETONE NEGATIVE (NEGATIVE); URINE LEUK ESTERASE 3+ (NEGATIVE); URINE NITRITE NEGATIVE (NEGATIVE); URINE PROTEIN 1+ (NEGATIVE); URINE RBC 17 /uL (0-23.9); URINE UROBILINOGEN 0.2 mg/dL (0.2-1.0); URINE WBC 1707 /uL (0-25.8)
[2021-10-21 20:31] LABS: BLOOD UREA NITROGEN 36.1 mg/dL (7-18)
[2021-10-21 20:35] LABS: CREATININE 1.2 mg/dL (0.55-1.3)
[2021-10-21 20:36] LABS: CALCIUM 7.8 mg/dL (8.5-10.1)
[2021-10-21 22:57] LABS: YEAST MANY (NEGATIVE)
[2021-10-22] MEDS: INSULIN SLIDING SCALE (NOVOLOG) 1 VIAL SQ SCH ×4 (00:07→16:27)
[2021-10-22] MEDS: SODIUM CHLORIDE 1,000 ML IV SCH ×2 (00:07→10:21)
[2021-10-22] MEDS: MELATONIN 5 MG TABLETS PO PRN ×2 (00:08→21:06)
[2021-10-22] MEDS ORDERED: PIPERACILLIN/TAZOBACTAM 3.375 GM VIAL IVPB ONE ×2 (02:36→10:07)
[2021-10-22] MEDS ORDERED: DEXTROSE 5%-WATER - 50 ML IVPB ONE ×3 (02:36→17:17)
[2021-10-22] MEDS: PIPERACILLIN/TAZOB 3.375 GM 3.375 GM in DEXTROSE 5%-WATER - 50 ML IVPB SCH ×3 (02:45→17:10)
[2021-10-22] MEDS: HEPARIN NA (PORCINE) 5,000 UNITS/ML 1ML VIAL SQ SCH ×3 (06:15→21:07)
[2021-10-22] MEDS: INSULIN (LEVEMIR) 100 UNITS/ML UNITS SQ SCH ×2 (06:23→21:13)
[2021-10-22 06:54] LABS: BASO % 0.4 % (0-2.0); EOS % 1.9 % (0-4.5); HEMATOCRIT 31.5 % (35.4-49); HEMOGLOBIN 10.6 GM/dL (11.7-16.9); LYMPH % 14.6 % (8-40); MCH 26.4 pg (25.7-33.7); MCHC 33.6 g/dl (32.0-35.9); MEAN CELL VOLUME 78.5 fl (80-96); MEAN PLT VOLUME 7.9 fl (7.5-11.1); MONO % 5.1 % (3.8-10.2); PLATELET COUNT 110 10^3/uL (134-434); RBC 4.02 M/mm3 (4.00-5.60); RDW 18.6 % (11.9-15.9)
[2021-10-22 07:20] LABS: CALCIUM 8.6 mg/dL (8.5-10.1)
[2021-10-22 07:21] LABS: ALBUMIN 2.7 g/dl (3.4-5.0); BLOOD UREA NITROGEN 35.9 mg/dL (7-18); MAGNESIUM 1.9 mg/dL (1.8-2.4)
[2021-10-22 07:24] LABS: CREATININE 1.1 mg/dL (0.55-1.3)
[2021-10-22 07:25] LABS: BILIRUBIN,TOTAL 0.8 mg/dL (0.2-1); PHOSPHOROUS 2.8 mg/dL (2.5-4.9)
[2021-10-22] MEDS ORDERED: VANCOMYCIN 1 GM in D5W (PRE-DOCKED) 1,000 MG/250 ML IVPB SCH ×2 (10:00→15:00)
[2021-10-22] MEDS: ACETAMINOPHEN 325 MG TABLET (FP) PO PRN (10:13)
[2021-10-22] MEDS ORDERED: VANCOMYCIN 1 GM/200 ML PREMIX BAG IVPB SCH (15:15)
[2021-10-22] MEDS ORDERED: PIPERACILLIN/TAZOBACTAM 2.25 GM VIAL IVPB ONE (17:17)
[2021-10-22] MEDS: PIPERACILLIN/TAZOB 2.25 GM 2.25 GM in DEXTROSE 5%-WATER - 50 ML IVPB SCH (17:22)
[2021-10-22] MEDS ORDERED: ESCITALOPRAM OXALATE 10 MG TABLET ONE (21:03)
[2021-10-22] MEDS: CARVEDILOL 3.125 MG TABLET (FP) PO SCH (21:05)
[2021-10-22] MEDS: GABAPENTIN 300 MG CAPSULE PO SCH (21:05)
[2021-10-22] MEDS: ESCITALOPRAM OXALATE 20 MG TABLET PO SCH (21:06)
[2021-10-22] MEDS: SACUBITRIL/VALSARTAN 24 MG-26 MG TABLET PO SCH (21:06)
[2021-10-22] MEDS: ROSUVASTATIN CA 20 MG TABLET PO SCH (21:08)
[2021-10-22] MEDS ORDERED: TAMSULOSIN HCL 0.4 MG CAP PO SCH (22:00)
[2021-10-22] MEDS ORDERED: SACUBITRIL/VALSARTAN 24 MG-26 MG TABLET PO SCH (22:00)
[2021-10-22] MEDS: BUDESONIDE/FORMETEROL FUMARATE 160/4.5 mcg INHALER IH SCH (22:21)
[2021-10-23] MEDS ORDERED: PIPERACILLIN/TAZOBACTAM 2.25 GM VIAL IVPB ONE ×3 (01:07→18:06)
[2021-10-23] MEDS ORDERED: DEXTROSE 5%-WATER - 50 ML IVPB ONE ×3 (01:08→18:06)
[2021-10-23] MEDS: SODIUM CHLORIDE 1,000 ML IV SCH ×2 (01:49→21:21)
[2021-10-23] MEDS: PIPERACILLIN/TAZOB 2.25 GM 2.25 GM in DEXTROSE 5%-WATER - 50 ML IVPB SCH ×3 (01:50→18:10)
[2021-10-23] MEDS: INSULIN (LEVEMIR) 100 UNITS/ML UNITS SQ SCH ×2 (06:37→21:22)
[2021-10-23] MEDS: HEPARIN NA (PORCINE) 5,000 UNITS/ML 1ML VIAL SQ SCH ×3 (06:38→21:22)
[2021-10-23] MEDS: INSULIN SLIDING SCALE (NOVOLOG) 1 VIAL SQ SCH ×3 (06:38→17:54)
[2021-10-23 09:04] LABS: BASO % 0.5 % (0-2.0); EOS % 3.5 % (0-4.5); HEMATOCRIT 30.1 % (35.4-49); HEMOGLOBIN 10.1 GM/dL (11.7-16.9); LYMPH % 22.6 % (8-40); MCH 26.2 pg (25.7-33.7); MCHC 33.4 g/dl (32.0-35.9); MEAN CELL VOLUME 78.5 fl (80-96); MEAN PLT VOLUME 7.9 fl (7.5-11.1); NEUT % 66.4 % (42.8-82.8); PLATELET COUNT 107 10^3/uL (134-434); RBC 3.84 M/mm3 (4.00-5.60); RDW 18.9 % (11.9-15.9); WHITE BLOOD COUNT 4.8 K/mm3 (4.0-10.0)
[2021-10-23] MEDS: SACUBITRIL/VALSARTAN 24 MG-26 MG TABLET PO SCH ×2 (09:10→21:21)
[2021-10-23] MEDS: BUDESONIDE/FORMETEROL FUMARATE 160/4.5 mcg INHALER IH SCH ×2 (09:10→21:22)
[2021-10-23] MEDS: TAMSULOSIN HCL 0.4 MG CAP PO SCH (09:11)
[2021-10-23] MEDS: CLOPIDOGREL BISULFATE 75 MG TABLET (FP) PO SCH (09:11)
[2021-10-23] MEDS: GABAPENTIN 300 MG CAPSULE PO SCH ×2 (09:11→21:21)
[2021-10-23] MEDS: CARVEDILOL 3.125 MG TABLET (FP) PO SCH ×2 (09:11→21:21)
[2021-10-23 09:22] LABS: ALBUMIN 2.4 g/dl (3.4-5.0); BLOOD UREA NITROGEN 24.9 mg/dL (7-18); MAGNESIUM 1.8 mg/dL (1.8-2.4)
[2021-10-23 09:25] LABS: CREATININE 1.2 mg/dL (0.55-1.3)
[2021-10-23 09:27] LABS: BILIRUBIN,TOTAL 0.4 mg/dL (0.2-1); TOT PROT 5.7 g/dl (6.4-8.2)
[2021-10-23] MEDS ORDERED: VANCOMYCIN 1 GM/200 ML PREMIX BAG IVPB SCH (10:00)
[2021-10-23] MEDS: VANCOMYCIN/WATER 1250 MG 1,250 MG/250 ML BAG IVPB SCH (15:22)
[2021-10-23] MEDS ORDERED: ESCITALOPRAM OXALATE 10 MG TABLET ONE (20:42)
[2021-10-23] MEDS: MELATONIN 5 MG TABLETS PO PRN (21:21)
[2021-10-23] MEDS: ROSUVASTATIN CA 20 MG TABLET PO SCH (21:21)
[2021-10-23] MEDS: ESCITALOPRAM OXALATE 20 MG TABLET PO SCH (21:22)
[2021-10-23] MEDS: ACETAMINOPHEN 325 MG TABLET (FP) PO PRN (21:35)
[2021-10-24] MEDS ORDERED: diphenhydrAMINE HCL 25 MG CAPSULE (FP) PO ONE (00:23)
[2021-10-24] MEDS: SODIUM CHLORIDE 1,000 ML IV SCH (00:29)
[2021-10-24] MEDS ORDERED: PIPERACILLIN/TAZOBACTAM 2.25 GM VIAL IVPB ONE ×3 (00:30→17:32)
[2021-10-24] MEDS ORDERED: DEXTROSE 5%-WATER - 50 ML IVPB ONE ×3 (00:30→17:32)
[2021-10-24] MEDS: PIPERACILLIN/TAZOB 2.25 GM 2.25 GM in DEXTROSE 5%-WATER - 50 ML IVPB SCH ×3 (01:10→17:47)
[2021-10-24] MEDS: INSULIN SLIDING SCALE (NOVOLOG) 1 VIAL SQ SCH ×3 (06:06→17:49)
[2021-10-24] MEDS: INSULIN (LEVEMIR) 100 UNITS/ML UNITS SQ SCH ×2 (06:08→21:01)
[2021-10-24] MEDS: HEPARIN NA (PORCINE) 5,000 UNITS/ML 1ML VIAL SQ SCH ×3 (06:08→21:01)
[2021-10-24 06:44] LABS: BASO % 0.7 % (0-2.0); EOS % 2.4 % (0-4.5); HEMATOCRIT 29.8 % (35.4-49); LYMPH % 23.3 % (8-40); MCH 25.9 pg (25.7-33.7); MCHC 33.4 g/dl (32.0-35.9); MEAN CELL VOLUME 77.7 fl (80-96); MEAN PLT VOLUME 7.9 fl (7.5-11.1); MONO % 7.4 % (3.8-10.2); NEUT % 66.2 % (42.8-82.8); PLATELET COUNT 111 10^3/uL (134-434); RBC 3.84 M/mm3 (4.00-5.60); RDW 18.9 % (11.9-15.9); WHITE BLOOD COUNT 4.1 K/mm3 (4.0-10.0)
[2021-10-24 07:01] LABS: CALCIUM 8.2 mg/dL (8.5-10.1)
[2021-10-24 07:02] LABS: ALBUMIN 2.4 g/dl (3.4-5.0); MAGNESIUM 1.7 mg/dL (1.8-2.4)
[2021-10-24 07:06] LABS: BILIRUBIN,TOTAL 0.3 mg/dL (0.2-1)
[2021-10-24 07:07] LABS: TOT PROT 5.8 g/dl (6.4-8.2)
[2021-10-24] MEDS ORDERED: MAGNESIUM OXIDE 400 MG TABLET (FP) PO ONE (08:37)
[2021-10-24] MEDS: TAMSULOSIN HCL 0.4 MG CAP PO SCH (09:25)
[2021-10-24] MEDS: CARVEDILOL 3.125 MG TABLET (FP) PO SCH ×2 (09:25→21:00)
[2021-10-24] MEDS: SACUBITRIL/VALSARTAN 24 MG-26 MG TABLET PO SCH ×2 (09:25→21:00)
[2021-10-24] MEDS: CLOPIDOGREL BISULFATE 75 MG TABLET (FP) PO SCH (09:25)
[2021-10-24] MEDS: GABAPENTIN 300 MG CAPSULE PO SCH ×2 (09:25→21:00)
[2021-10-24] MEDS: BUDESONIDE/FORMETEROL FUMARATE 160/4.5 mcg INHALER IH SCH ×2 (09:31→21:01)
[2021-10-24] MEDS: VANCOMYCIN/WATER 1250 MG 1,250 MG/250 ML BAG IVPB SCH (14:01)
[2021-10-24] MEDS ORDERED: INSULIN SLIDING SCALE (NOVOLOG) 1 VIAL SQ ONE (17:42)
[2021-10-24] MEDS ORDERED: ESCITALOPRAM OXALATE 10 MG TABLET ONE (20:50)
[2021-10-24] MEDS: ESCITALOPRAM OXALATE 20 MG TABLET PO SCH (21:01)
[2021-10-24] MEDS: MELATONIN 5 MG TABLETS PO PRN (21:01)
[2021-10-24] MEDS: ROSUVASTATIN CA 20 MG TABLET PO SCH (21:01)
[2021-10-25] MEDS ORDERED: diphenhydrAMINE HCL 25 MG CAPSULE (FP) PO ONE (00:18)
[2021-10-25] MEDS ORDERED: DEXTROSE 5%-WATER - 50 ML IVPB ONE ×3 (01:10→17:22)
[2021-10-25] MEDS ORDERED: PIPERACILLIN/TAZOBACTAM 2.25 GM VIAL IVPB ONE ×3 (01:10→17:21)
[2021-10-25] MEDS: PIPERACILLIN/TAZOB 2.25 GM 2.25 GM in DEXTROSE 5%-WATER - 50 ML IVPB SCH ×3 (01:41→17:45)
[2021-10-25] MEDS: HEPARIN NA (PORCINE) 5,000 UNITS/ML 1ML VIAL SQ SCH ×3 (06:16→21:49)
[2021-10-25] MEDS: INSULIN (LEVEMIR) 100 UNITS/ML UNITS SQ SCH ×2 (06:16→22:06)
[2021-10-25] MEDS: INSULIN SLIDING SCALE (NOVOLOG) 1 VIAL SQ SCH ×3 (06:17→16:32)
[2021-10-25] MEDS: ACETAMINOPHEN 325 MG TABLET (FP) PO PRN (06:18)
[2021-10-25 08:58] LABS: BASO % 0.6 % (0-2.0); EOS % 2.5 % (0-4.5); HEMATOCRIT 31.2 % (35.4-49); HEMOGLOBIN 10.4 GM/dL (11.7-16.9); LYMPH % 22.1 % (8-40); MCHC 33.3 g/dl (32.0-35.9); MEAN PLT VOLUME 8.1 fl (7.5-11.1); MONO % 6.6 % (3.8-10.2); NEUT % 68.2 % (42.8-82.8); PLATELET COUNT 135 10^3/uL (134-434); WHITE BLOOD COUNT 4.8 K/mm3 (4.0-10.0)
[2021-10-25 09:28] LABS: ALBUMIN 2.4 g/dl (3.4-5.0); BLOOD UREA NITROGEN 19.4 mg/dL (7-18); CALCIUM 8.4 mg/dL (8.5-10.1)
[2021-10-25] MEDS: TAMSULOSIN HCL 0.4 MG CAP PO SCH (09:28)
[2021-10-25] MEDS: GABAPENTIN 300 MG CAPSULE PO SCH ×2 (09:28→21:49)
[2021-10-25] MEDS: CARVEDILOL 3.125 MG TABLET (FP) PO SCH ×2 (09:28→21:49)
[2021-10-25] MEDS: CLOPIDOGREL BISULFATE 75 MG TABLET (FP) PO SCH (09:28)
[2021-10-25] MEDS: BUDESONIDE/FORMETEROL FUMARATE 160/4.5 mcg INHALER IH SCH ×2 (09:28→21:50)
[2021-10-25] MEDS: SACUBITRIL/VALSARTAN 24 MG-26 MG TABLET PO SCH ×2 (09:28→21:49)
[2021-10-25 09:29] LABS: BILIRUBIN,TOTAL 0.3 mg/dL (0.2-1); MAGNESIUM 1.7 mg/dL (1.8-2.4); TOT PROT 5.8 g/dl (6.4-8.2)
[2021-10-25] MEDS: VANCOMYCIN/WATER 1250 MG 1,250 MG/250 ML BAG IVPB SCH (15:27)
[2021-10-25] MEDS ORDERED: ESCITALOPRAM OXALATE 10 MG TABLET ONE (21:19)
[2021-10-25] MEDS: ESCITALOPRAM OXALATE 20 MG TABLET PO SCH (21:49)
[2021-10-25] MEDS: ROSUVASTATIN CA 20 MG TABLET PO SCH (21:49)
[2021-10-25] MEDS: MELATONIN 5 MG TABLETS PO PRN (22:06)
[2021-10-26] MEDS: ACETAMINOPHEN 325 MG TABLET (FP) PO PRN ×2 (00:17→21:12)
[2021-10-26] MEDS ORDERED: PIPERACILLIN/TAZOBACTAM 2.25 GM VIAL IVPB ONE ×3 (00:37→18:34)
[2021-10-26] MEDS ORDERED: DEXTROSE 5%-WATER - 50 ML IVPB ONE ×3 (00:37→18:34)
[2021-10-26] MEDS: PIPERACILLIN/TAZOB 2.25 GM 2.25 GM in DEXTROSE 5%-WATER - 50 ML IVPB SCH ×3 (01:16→19:04)
[2021-10-26] MEDS: HEPARIN NA (PORCINE) 5,000 UNITS/ML 1ML VIAL SQ SCH ×3 (06:55→21:12)
[2021-10-26] MEDS: INSULIN (LEVEMIR) 100 UNITS/ML UNITS SQ SCH ×2 (07:01→21:23)
[2021-10-26] MEDS: INSULIN SLIDING SCALE (NOVOLOG) 1 VIAL SQ SCH ×3 (07:02→16:29)
[2021-10-26 08:49] LABS: BASO % 0.9 % (0-2.0); HEMATOCRIT 31.1 % (35.4-49); HEMOGLOBIN 10.3 GM/dL (11.7-16.9); LYMPH % 21.3 % (8-40); MCH 25.8 pg (25.7-33.7); MCHC 33.1 g/dl (32.0-35.9); MEAN PLT VOLUME 7.9 fl (7.5-11.1); MONO % 6.9 % (3.8-10.2); NEUT % 67.9 % (42.8-82.8); PLATELET COUNT 142 10^3/uL (134-434); RBC 3.99 M/mm3 (4.00-5.60); RDW 19.2 % (11.9-15.9); WHITE BLOOD COUNT 5.2 K/mm3 (4.0-10.0)
[2021-10-26 09:11] LABS: CALCIUM 8.4 mg/dL (8.5-10.1)
[2021-10-26 09:12] LABS: ALBUMIN 2.5 g/dl (3.4-5.0); MAGNESIUM 1.8 mg/dL (1.8-2.4)
[2021-10-26 09:14] LABS: CREATININE 1.1 mg/dL (0.55-1.3)
[2021-10-26 09:15] LABS: BLOOD UREA NITROGEN 18.6 mg/dL (7-18)
[2021-10-26 09:16] LABS: BILIRUBIN,TOTAL 0.3 mg/dL (0.2-1)
[2021-10-26 09:19] LABS: TOT PROT 5.9 g/dl (6.4-8.2)
[2021-10-26] MEDS: SACUBITRIL/VALSARTAN 24 MG-26 MG TABLET PO SCH ×2 (09:41→21:12)
[2021-10-26] MEDS: CARVEDILOL 3.125 MG TABLET (FP) PO SCH ×2 (09:41→21:12)
[2021-10-26] MEDS: TAMSULOSIN HCL 0.4 MG CAP PO SCH (09:41)
[2021-10-26] MEDS: GABAPENTIN 300 MG CAPSULE PO SCH ×2 (09:41→21:12)
[2021-10-26] MEDS: CLOPIDOGREL BISULFATE 75 MG TABLET (FP) PO SCH (09:41)
[2021-10-26] MEDS: BUDESONIDE/FORMETEROL FUMARATE 160/4.5 mcg INHALER IH SCH ×2 (09:42→21:12)
[2021-10-26] MEDS: VANCOMYCIN/WATER 1250 MG 1,250 MG/250 ML BAG IVPB SCH (14:01)
[2021-10-26] MEDS ORDERED: ALPRAZolam 0.25 MG TABLET PO PRN (14:56)
[2021-10-26] MEDS ORDERED: ESCITALOPRAM OXALATE 10 MG TABLET ONE (20:06)
[2021-10-26] MEDS: ROSUVASTATIN CA 20 MG TABLET PO SCH (21:12)
[2021-10-26] MEDS: ESCITALOPRAM OXALATE 20 MG TABLET PO SCH (21:12)
[2021-10-26] MEDS: diphenhydrAMINE HCL 25 MG CAPSULE (FP) PO PRN (21:12)
[2021-10-27] MEDS ORDERED: PIPERACILLIN/TAZOBACTAM 2.25 GM VIAL IVPB ONE ×3 (01:06→17:45)
[2021-10-27] MEDS ORDERED: DEXTROSE 5%-WATER - 50 ML IVPB ONE ×3 (01:06→17:45)
[2021-10-27] MEDS: PIPERACILLIN/TAZOB 2.25 GM 2.25 GM in DEXTROSE 5%-WATER - 50 ML IVPB SCH ×3 (01:12→18:17)
[2021-10-27] MEDS ORDERED: MELATONIN 5 MG TABLETS PO ONE (01:13)
[2021-10-27] MEDS: INSULIN SLIDING SCALE (NOVOLOG) 1 VIAL SQ SCH ×3 (06:19→16:31)
[2021-10-27] MEDS: INSULIN (LEVEMIR) 100 UNITS/ML UNITS SQ SCH ×2 (06:19→22:06)
[2021-10-27] MEDS: HEPARIN NA (PORCINE) 5,000 UNITS/ML 1ML VIAL SQ SCH ×3 (06:19→22:06)
[2021-10-27 07:03] LABS: BASO % 0.7 % (0-2.0); HEMATOCRIT 31.6 % (35.4-49); HEMOGLOBIN 10.4 GM/dL (11.7-16.9); LYMPH % 25.4 % (8-40); MCH 25.9 pg (25.7-33.7); MEAN CELL VOLUME 78.5 fl (80-96); MEAN PLT VOLUME 7.9 fl (7.5-11.1); MONO % 6.4 % (3.8-10.2); NEUT % 64.5 % (42.8-82.8); PLATELET COUNT 133 10^3/uL (134-434); RBC 4.02 M/mm3 (4.00-5.60); WHITE BLOOD COUNT 4.8 K/mm3 (4.0-10.0)
[2021-10-27 07:21] LABS: ALBUMIN 2.6 g/dl (3.4-5.0); CALCIUM 8.6 mg/dL (8.5-10.1)
[2021-10-27 07:22] LABS: MAGNESIUM 1.9 mg/dL (1.8-2.4)
[2021-10-27 07:25] LABS: CREATININE 1.1 mg/dL (0.55-1.3)
[2021-10-27 07:26] LABS: BILIRUBIN,TOTAL 0.2 mg/dL (0.2-1)
[2021-10-27] MEDS: TAMSULOSIN HCL 0.4 MG CAP PO SCH (08:17)
[2021-10-27] MEDS: GABAPENTIN 300 MG CAPSULE PO SCH ×2 (09:59→22:07)
[2021-10-27] MEDS: CLOPIDOGREL BISULFATE 75 MG TABLET (FP) PO SCH (09:59)
[2021-10-27] MEDS: CARVEDILOL 3.125 MG TABLET (FP) PO SCH ×2 (09:59→22:07)
[2021-10-27] MEDS: SACUBITRIL/VALSARTAN 24 MG-26 MG TABLET PO SCH ×2 (09:59→22:06)
[2021-10-27] MEDS: BUDESONIDE/FORMETEROL FUMARATE 160/4.5 mcg INHALER IH SCH ×2 (10:07→22:09)
[2021-10-27] MEDS: ACETAMINOPHEN 325 MG TABLET (FP) PO PRN (16:35)
[2021-10-27] MEDS: VANCOMYCIN/WATER 1250 MG 1,250 MG/250 ML BAG IVPB SCH (16:37)
[2021-10-27] MEDS ORDERED: ESCITALOPRAM OXALATE 10 MG TABLET ONE (22:00)
[2021-10-27] MEDS: ESCITALOPRAM OXALATE 20 MG TABLET PO SCH (22:07)
[2021-10-27] MEDS: ROSUVASTATIN CA 20 MG TABLET PO SCH (22:07)
[2021-10-27] MEDS: diphenhydrAMINE HCL 25 MG CAPSULE (FP) PO PRN (22:10)
[2021-10-28] MEDS ORDERED: PIPERACILLIN/TAZOBACTAM 2.25 GM VIAL IVPB ONE ×3 (00:49→18:03)
[2021-10-28] MEDS ORDERED: MELATONIN 5 MG TABLETS PO ONE (00:49)
[2021-10-28] MEDS ORDERED: DEXTROSE 5%-WATER - 50 ML IVPB ONE ×3 (00:49→18:03)
[2021-10-28] MEDS: PIPERACILLIN/TAZOB 2.25 GM 2.25 GM in DEXTROSE 5%-WATER - 50 ML IVPB SCH ×3 (01:15→18:22)
[2021-10-28] MEDS: INSULIN SLIDING SCALE (NOVOLOG) 1 VIAL SQ SCH ×3 (06:57→17:12)
[2021-10-28] MEDS: HEPARIN NA (PORCINE) 5,000 UNITS/ML 1ML VIAL SQ SCH ×3 (06:57→21:01)
[2021-10-28] MEDS: INSULIN (LEVEMIR) 100 UNITS/ML UNITS SQ SCH ×2 (06:58→21:01)
[2021-10-28 08:12] LABS: BASO % 0.3 % (0-2.0); EOS % 2.4 % (0-4.5); HEMATOCRIT 33.5 % (35.4-49); LYMPH % 19.9 % (8-40); MCH 25.9 pg (25.7-33.7); MCHC 32.7 g/dl (32.0-35.9); MEAN PLT VOLUME 7.9 fl (7.5-11.1); MONO % 6.1 % (3.8-10.2); NEUT % 71.3 % (42.8-82.8); PLATELET COUNT 149 10^3/uL (134-434); RBC 4.24 M/mm3 (4.00-5.60); RDW 19.1 % (11.9-15.9)
[2021-10-28 08:43] LABS: ALBUMIN 2.7 g/dl (3.4-5.0); CALCIUM 8.5 mg/dL (8.5-10.1)
[2021-10-28 08:44] LABS: BLOOD UREA NITROGEN 17.4 mg/dL (7-18); MAGNESIUM 1.8 mg/dL (1.8-2.4)
[2021-10-28 08:46] LABS: BILIRUBIN,TOTAL 0.3 mg/dL (0.2-1)
[2021-10-28] MEDS: GABAPENTIN 300 MG CAPSULE PO SCH ×2 (10:05→20:59)
[2021-10-28] MEDS: TAMSULOSIN HCL 0.4 MG CAP PO SCH (10:05)
[2021-10-28] MEDS: CLOPIDOGREL BISULFATE 75 MG TABLET (FP) PO SCH (10:05)
[2021-10-28] MEDS: CARVEDILOL 3.125 MG TABLET (FP) PO SCH ×2 (10:05→20:59)
[2021-10-28] MEDS: SACUBITRIL/VALSARTAN 24 MG-26 MG TABLET PO SCH ×2 (10:05→21:00)
[2021-10-28] MEDS: BUDESONIDE/FORMETEROL FUMARATE 160/4.5 mcg INHALER IH SCH ×2 (10:06→21:00)
[2021-10-28] MEDS: VANCOMYCIN/WATER FOR INJ (PEG) 1,000 MG/200 ML BAG IVPB SCH (14:08)
[2021-10-28] MEDS ORDERED: VANCOMYCIN/WATER FOR INJ (PEG) 1,000 MG/200 ML BAG IVPB SCH (15:30)
[2021-10-28] MEDS ORDERED: ESCITALOPRAM OXALATE 10 MG TABLET ONE (20:50)
[2021-10-28] MEDS: ROSUVASTATIN CA 20 MG TABLET PO SCH (20:59)
[2021-10-28] MEDS: ESCITALOPRAM OXALATE 20 MG TABLET PO SCH (21:01)
[2021-10-28] MEDS: diphenhydrAMINE HCL 25 MG CAPSULE (FP) PO PRN (21:13)
[2021-10-28] MEDS: ACETAMINOPHEN 325 MG TABLET (FP) PO PRN (23:00)
[2021-10-29] MEDS ORDERED: DEXTROSE 5%-WATER - 50 ML IVPB ONE ×3 (01:00→14:51)
[2021-10-29] MEDS ORDERED: PIPERACILLIN/TAZOBACTAM 2.25 GM VIAL IVPB ONE ×3 (01:00→14:51)
[2021-10-29] MEDS: PIPERACILLIN/TAZOB 2.25 GM 2.25 GM in DEXTROSE 5%-WATER - 50 ML IVPB SCH ×2 (01:48→10:01)
[2021-10-29] MEDS: INSULIN SLIDING SCALE (NOVOLOG) 1 VIAL SQ SCH ×3 (06:47→15:40)
[2021-10-29] MEDS: HEPARIN NA (PORCINE) 5,000 UNITS/ML 1ML VIAL SQ SCH ×3 (06:47→21:33)
[2021-10-29] MEDS: INSULIN (LEVEMIR) 100 UNITS/ML UNITS SQ SCH ×2 (06:47→21:35)
[2021-10-29 09:15] LABS: CALCIUM 9.1 mg/dL (8.5-10.1)
[2021-10-29 09:16] LABS: BLOOD UREA NITROGEN 18.1 mg/dL (7-18)
[2021-10-29 09:19] LABS: CREATININE 1.1 mg/dL (0.55-1.3)
[2021-10-29 09:20] LABS: BILIRUBIN,TOTAL 0.4 mg/dL (0.2-1); TOT PROT 6.9 g/dl (6.4-8.2)
[2021-10-29] MEDS: SACUBITRIL/VALSARTAN 24 MG-26 MG TABLET PO SCH ×2 (10:00→21:32)
[2021-10-29] MEDS: GABAPENTIN 300 MG CAPSULE PO SCH ×2 (10:00→21:34)
[2021-10-29] MEDS: CARVEDILOL 3.125 MG TABLET (FP) PO SCH ×2 (10:00→21:33)
[2021-10-29] MEDS: TAMSULOSIN HCL 0.4 MG CAP PO SCH (10:00)
[2021-10-29] MEDS: BUDESONIDE/FORMETEROL FUMARATE 160/4.5 mcg INHALER IH SCH ×2 (10:01→21:34)
[2021-10-29] MEDS: CLOPIDOGREL BISULFATE 75 MG TABLET (FP) PO SCH (10:01)
[2021-10-29] MEDS: ACETAMINOPHEN 325 MG TABLET (FP) PO PRN ×2 (10:02→22:18)
[2021-10-29 10:55] LABS: BASO % 0.5 % (0-2.0); EOS % 1.9 % (0-4.5); HEMOGLOBIN 10.6 GM/dL (11.7-16.9); LYMPH % 19.8 % (8-40); MCH 26.2 pg (25.7-33.7); MCHC 33.1 g/dl (32.0-35.9); MEAN CELL VOLUME 79.2 fl (80-96); MEAN PLT VOLUME 8.1 fl (7.5-11.1); MONO % 5.9 % (3.8-10.2); NEUT % 71.9 % (42.8-82.8); PLATELET COUNT 134 10^3/uL (134-434); RBC 4.04 M/mm3 (4.00-5.60); RDW 18.8 % (11.9-15.9); WHITE BLOOD COUNT 5.4 K/mm3 (4.0-10.0)
[2021-10-29] MEDS: SODIUM ZIRCONIUM CYCLOSILICATE (LOKELMA) 5 GM PACKET PO SCH (11:56)
[2021-10-29] MEDS: VANCOMYCIN/WATER FOR INJ (PEG) 1,000 MG/200 ML BAG IVPB SCH (15:09)
[2021-10-29] MEDS: CLINDAMYCIN HCL 150 MG CAPSULE (FP) PO SCH (17:25)
[2021-10-29] MEDS ORDERED: ESCITALOPRAM OXALATE 10 MG TABLET ONE (20:39)
[2021-10-29] MEDS: ROSUVASTATIN CA 20 MG TABLET PO SCH (21:32)
[2021-10-29] MEDS: ESCITALOPRAM OXALATE 20 MG TABLET PO SCH (21:34)
[2021-10-29] MEDS: diphenhydrAMINE HCL 25 MG CAPSULE (FP) PO PRN (21:42)
[2021-10-29] MEDS: CEFUROXIME AXETIL 500 MG TABLET PO SCH (22:18)
[2021-10-30] MEDS: CLINDAMYCIN HCL 150 MG CAPSULE (FP) PO SCH ×4 (00:05→17:01)
[2021-10-30] MEDS: HEPARIN NA (PORCINE) 5,000 UNITS/ML 1ML VIAL SQ SCH ×2 (06:40→14:27)
[2021-10-30] MEDS: INSULIN (LEVEMIR) 100 UNITS/ML UNITS SQ SCH (06:43)
[2021-10-30] MEDS: INSULIN SLIDING SCALE (NOVOLOG) 1 VIAL SQ SCH ×3 (06:44→16:44)
[2021-10-30 06:55] LABS: BASO % 0.5 % (0-2.0); EOS % 2.2 % (0-4.5); HEMATOCRIT 32.9 % (35.4-49); LYMPH % 23.5 % (8-40); MCH 26.1 pg (25.7-33.7); MCHC 33.5 g/dl (32.0-35.9); MEAN CELL VOLUME 77.9 fl (80-96); MEAN PLT VOLUME 7.8 fl (7.5-11.1); NEUT % 66.8 % (42.8-82.8); PLATELET COUNT 153 10^3/uL (134-434); RBC 4.22 M/mm3 (4.00-5.60); WHITE BLOOD COUNT 4.9 K/mm3 (4.0-10.0)
[2021-10-30 07:17] LABS: CALCIUM 8.6 mg/dL (8.5-10.1)
[2021-10-30 07:18] LABS: ALBUMIN 2.7 g/dl (3.4-5.0); BLOOD UREA NITROGEN 17.9 mg/dL (7-18); MAGNESIUM 1.9 mg/dL (1.8-2.4)
[2021-10-30 07:23] LABS: TOT PROT 6.3 g/dl (6.4-8.2)
[2021-10-30 07:24] LABS: BILIRUBIN,TOTAL 0.3 mg/dL (0.2-1)
[2021-10-30] MEDS: SODIUM ZIRCONIUM CYCLOSILICATE (LOKELMA) 5 GM PACKET PO SCH (09:27)
[2021-10-30] MEDS: BUDESONIDE/FORMETEROL FUMARATE 160/4.5 mcg INHALER IH SCH (09:28)
[2021-10-30] MEDS: SACUBITRIL/VALSARTAN 24 MG-26 MG TABLET PO SCH (09:28)
[2021-10-30] MEDS: GABAPENTIN 300 MG CAPSULE PO SCH (09:28)
[2021-10-30] MEDS: TAMSULOSIN HCL 0.4 MG CAP PO SCH (09:28)
[2021-10-30] MEDS: CARVEDILOL 3.125 MG TABLET (FP) PO SCH (09:28)
[2021-10-30] MEDS: CLOPIDOGREL BISULFATE 75 MG TABLET (FP) PO SCH (09:28)
[2021-10-30] MEDS: CEFUROXIME AXETIL 500 MG TABLET PO SCH (09:29)
[2021-10-30 18:25] VITALS: BP 144/56; PULSE 69; TEMP 98.2
== END 2021-10-30 19:48 | disposition home or self-care (01) | DRG 178 ==
LOC: JER 13:42 → JERBED 21:13 → J4S 23:47
PROVIDERS: ADMIT Hospitalist; ATTEND Nurse Practitioner Family
DX: J69.0 Pneumonitis due to inhalation of food and vomit (principal); I50.22 Chronic systolic (congestive) heart failure; J96.11 Chronic respiratory failure with hypoxia; N39.0 Urinary tract infection, site not specified; E46 Unspecified protein-calorie malnutrition; L97.428 Non-pressure chronic ulcer of left heel and midfoot with other specified severity; L97.418 Non-pressure chronic ulcer of right heel and midfoot with other specified severity; I13.0 Hypertensive heart and chronic kidney disease with heart failure and stage 1 through stage 4 chronic kidney disease, or unspecified chronic kidney disease; N17.9 Acute kidney failure, unspecified; J44.9 Chronic obstructive pulmonary disease, unspecified; E11.22 Type 2 diabetes mellitus with diabetic chronic kidney disease; N18.30 Chronic kidney disease, stage 3 unspecified; N40.0 Benign prostatic hyperplasia without lower urinary tract symptoms; I25.5 Ischemic cardiomyopathy; I25.10 Atherosclerotic heart disease of native coronary artery without angina pectoris; Z68.22 Body mass index [BMI] 22.0-22.9, adult; E11.51 Type 2 diabetes mellitus with diabetic peripheral angiopathy without gangrene; E11.621 Type 2 diabetes mellitus with foot ulcer; E78.5 Hyperlipidemia, unspecified; Z95.1 Presence of aortocoronary bypass graft; Z99.81 Dependence on supplemental oxygen; Z87.11 Personal history of peptic ulcer disease
CPT/HCPCS: 0241U-QW; 36415; 71045-TC-FY; 71250-TC; 74230-TC-FY; 80048; 80053; 81003; 82550; 82803; 82962; 83036; 83605; 83735; 84100; 84132; 84484; 85025; 85610; 85730; 86850; 86900; 86901; 87040; 87070; 87077; 87086; 87186; 87205; 92611-GN; 93005; 93010; 97116-GP; 97162-GP; 99291; G0480; J1644

== ENCOUNTER 2022-04-15 07:36 | Inpatient (IN) | payer OTHER, MEDICARE ==
[2022-04-15 09:44] LABS: HEMATOCRIT 38.8 % (35.4-49); HEMOGLOBIN 12.5 GM/dL (11.7-16.9); MCH 26.8 pg (25.7-33.7); MCHC 32.1 g/dl (32.0-35.9); MEAN CELL VOLUME 83.4 fl (80-96); MEAN PLT VOLUME 8.6 fl (7.5-11.1); PLATELET COUNT 172 10^3/uL (134-434); RBC 4.65 M/mm3 (4.00-5.60); RDW 16.8 % (11.9-15.9); WHITE BLOOD COUNT 3.6 K/mm3 (4.0-10.0)
[2022-04-15 09:49] LABS: EPI CELLS 6 /uL (0-25.1); HYALINE CASTS 1 /uL (0-3.1); PH,URINE 5.5 (5.0-8.0); URINE APPEARANCE TURBID; URINE BACTERIA 41 /uL (0-1359); URINE BILIRUBIN NEGATIVE (NEGATIVE); URINE COLOR YELLOW; URINE GLUCOSE (UA) 3+ (NEGATIVE); URINE KETONE NEGATIVE (NEGATIVE); URINE LEUK ESTERASE 3+ (NEGATIVE); URINE NITRITE NEGATIVE (NEGATIVE); URINE PROTEIN 2+ (NEGATIVE); URINE UROBILINOGEN 0.2 mg/dL (0.2-1.0); URINE WBC 3296 /uL (0-25.8)
[2022-04-15 09:52] LABS: INR 1.02 (0.83-1.09); PROTHROMBIN TIME (PATIENT) 11.7 SEC (9.7-13.0)
[2022-04-15 09:54] LABS: ACTIVATED PTT 30.7 SECONDS (25.2-36.5)
[2022-04-15 09:58] LABS: CALCIUM 8.1 mg/dL (8.5-10.1)
[2022-04-15 09:59] LABS: BLOOD UREA NITROGEN 45.2 mg/dL (7-18)
[2022-04-15 10:01] LABS: CREATININE 1.6 mg/dL (0.55-1.3)
[2022-04-15 10:03] LABS: BILIRUBIN,TOTAL 0.3 mg/dL (0.2-1)
[2022-04-15 10:07] LABS: N-TERMINAL BNP 2102.4 pg/ml (5-450); YEAST NEGATIVE (NEGATIVE)
[2022-04-15] MEDS ORDERED: CEFTRIAXONE 1,000 MG in DEXTROSE 5%-WATER - 50 ML IVPB ONE (10:30)
[2022-04-15] MEDS ORDERED: CEFTRIAXONE 1 GM/50 ML BAG ONE (11:26)
[2022-04-15] MEDS ORDERED: SODIUM CHLORIDE 0.9% 500 ML INFUS.BAG IV ONE (12:00)
[2022-04-15] MEDS ORDERED: ALBUTEROL SO4 HFA INHALER IH PRN (13:27)
[2022-04-15] MEDS ORDERED: LACTATED RINGERS SOLUTION 1,000 ML/1,000 ML INFUS.BAG IV SCH (13:30)
[2022-04-15] MEDS ORDERED: guaiFENesin/D-M SUGAR-FREE/ACLHOL-FREE 118 ML BOTTLE PO PRN (13:47)
[2022-04-15] MEDS: BUDESONIDE/FORMETEROL FUMARATE 160/4.5 mcg INHALER IH SCH ×2 (14:23→22:40)
[2022-04-15] MEDS: HEPARIN NA (PORCINE) 5,000 UNITS/ML 1ML VIAL SQ SCH ×2 (14:24→22:39)
[2022-04-15] MEDS ORDERED: HEPARIN NA (PORCINE) 5,000 UNITS/ML 1ML VIAL ONE (14:25)
[2022-04-15] MEDS ORDERED: ESCITALOPRAM OXALATE 10 MG TABLET ONE (21:31)
[2022-04-15] MEDS: ROSUVASTATIN CA 20 MG TABLET PO SCH (22:38)
[2022-04-15] MEDS: CARVEDILOL 3.125 MG TABLET (FP) PO SCH (22:39)
[2022-04-15] MEDS: ESCITALOPRAM OXALATE 20 MG TABLET PO SCH (22:39)
[2022-04-16] MEDS: HEPARIN NA (PORCINE) 5,000 UNITS/ML 1ML VIAL SQ SCH ×3 (05:54→23:00)
[2022-04-16] MEDS ORDERED: CEFTRIAXONE 1 GM in DEXTROSE 5%-WATER - 50 ML IVPB SCH (10:00)
[2022-04-16 10:16] LABS: BASO % 0.3 % (0-2.0); EOS % 1.9 % (0-4.5); HEMOGLOBIN 12.7 GM/dL (11.7-16.9); LYMPH % 21.2 % (8-40); MCHC 32.4 g/dl (32.0-35.9); MEAN CELL VOLUME 83.1 fl (80-96); MEAN PLT VOLUME 8.1 fl (7.5-11.1); MONO % 5.4 % (3.8-10.2); NEUT % 71.2 % (42.8-82.8); PLATELET COUNT 142 10^3/uL (134-434); RDW 16.9 % (11.9-15.9); WHITE BLOOD COUNT 3.8 K/mm3 (4.0-10.0)
[2022-04-16 10:27] LABS: CALCIUM 8.5 mg/dL (8.5-10.1)
[2022-04-16 10:28] LABS: ALBUMIN 2.9 g/dl (3.4-5.0); BLOOD UREA NITROGEN 45.3 mg/dL (7-18); MAGNESIUM 2.5 mg/dL (1.8-2.4)
[2022-04-16 10:31] LABS: CREATININE 1.5 mg/dL (0.55-1.3); PHOSPHOROUS 2.8 mg/dL (2.5-4.9)
[2022-04-16 10:32] LABS: BILIRUBIN,TOTAL 0.2 mg/dL (0.2-1); TOT PROT 6.6 g/dl (6.4-8.2)
[2022-04-16] MEDS: FAMOTIDINE 10 MG TABLET PO SCH (10:49)
[2022-04-16] MEDS: CLOPIDOGREL BISULFATE 75 MG TABLET (FP) PO SCH (10:49)
[2022-04-16] MEDS: CARVEDILOL 3.125 MG TABLET (FP) PO SCH ×2 (10:49→22:55)
[2022-04-16] MEDS: ASPIRIN COATED 81 MG TABLET.EC PO SCH (10:50)
[2022-04-16] MEDS: BUDESONIDE/FORMETEROL FUMARATE 160/4.5 mcg INHALER IH SCH ×2 (10:57→23:00)
[2022-04-16] MEDS: AMMONIUM LACTATE 12% LOTION 225 GM BOTTLE TP SCH (10:57)
[2022-04-16] MEDS: CEFTRIAXONE 1 GM in DEXTROSE 5%-WATER - 50 ML IVPB SCH (11:31)
[2022-04-16 13:01] VITALS: BMI 24.0
[2022-04-16] MEDS ORDERED: SODIUM CHLORIDE 500 ML IV STA (13:57)
[2022-04-16] MEDS ORDERED: ESCITALOPRAM OXALATE 10 MG TABLET ONE (21:39)
[2022-04-16] MEDS: ROSUVASTATIN CA 20 MG TABLET PO SCH (22:55)
[2022-04-16] MEDS: ESCITALOPRAM OXALATE 20 MG TABLET PO SCH (22:59)
[2022-04-17] MEDS: HEPARIN NA (PORCINE) 5,000 UNITS/ML 1ML VIAL SQ SCH ×3 (06:20→22:06)
[2022-04-17] MEDS: FAMOTIDINE 10 MG TABLET PO SCH (09:53)
[2022-04-17] MEDS: CARVEDILOL 3.125 MG TABLET (FP) PO SCH ×2 (09:53→22:06)
[2022-04-17] MEDS: ASPIRIN COATED 81 MG TABLET.EC PO SCH (09:53)
[2022-04-17] MEDS: CLOPIDOGREL BISULFATE 75 MG TABLET (FP) PO SCH (09:53)
[2022-04-17] MEDS: CEFTRIAXONE 1 GM in DEXTROSE 5%-WATER - 50 ML IVPB SCH (09:53)
[2022-04-17] MEDS: AMMONIUM LACTATE 12% LOTION 225 GM BOTTLE TP SCH (09:54)
[2022-04-17] MEDS: BUDESONIDE/FORMETEROL FUMARATE 160/4.5 mcg INHALER IH SCH ×2 (09:54→22:10)
[2022-04-17 11:24] LABS: ALBUMIN 2.8 g/dl (3.4-5.0); CREATININE 1.3 mg/dL (0.55-1.3); MAGNESIUM 2.1 mg/dL (1.8-2.4)
[2022-04-17 11:26] LABS: BILIRUBIN,TOTAL 0.2 mg/dL (0.2-1); TOT PROT 6.2 g/dl (6.4-8.2)
[2022-04-17 11:43] LABS: BASO % 0.4 % (0-2.0); HEMATOCRIT 37.4 % (35.4-49); HEMOGLOBIN 11.9 GM/dL (11.7-16.9); LYMPH % 28.3 % (8-40); MCH 26.7 pg (25.7-33.7); MCHC 31.8 g/dl (32.0-35.9); MEAN CELL VOLUME 83.9 fl (80-96); MONO % 7.8 % (3.8-10.2); NEUT % 61.5 % (42.8-82.8); PLATELET COUNT 135 10^3/uL (134-434); RBC 4.46 M/mm3 (4.00-5.60); RDW 17.2 % (11.9-15.9); WHITE BLOOD COUNT 2.9 K/mm3 (4.0-10.0)
[2022-04-17 11:45] VITALS: RESP 18
[2022-04-17] MEDS: FLUCONAZOLE 100 MG TABLET (UD) PO SCH (14:06)
[2022-04-17] MEDS ORDERED: ESCITALOPRAM OXALATE 10 MG TABLET ONE (21:33)
[2022-04-17] MEDS: ROSUVASTATIN CA 20 MG TABLET PO SCH (22:06)
[2022-04-17] MEDS: ESCITALOPRAM OXALATE 20 MG TABLET PO SCH (22:07)
[2022-04-18] MEDS: HEPARIN NA (PORCINE) 5,000 UNITS/ML 1ML VIAL SQ SCH ×3 (06:23→21:28)
[2022-04-18 10:32] LABS: HEMATOCRIT 30.7 % (35.4-49); HEMOGLOBIN 10.5 GM/dL (11.7-16.9); MCH 27.6 pg (25.7-33.7); MCHC 34.1 g/dl (32.0-35.9); MEAN PLT VOLUME 7.4 fl (7.5-11.1); PLATELET COUNT 134 10^3/uL (134-434); RBC 3.79 M/mm3 (4.00-5.60); RDW 16.7 % (11.9-15.9); WHITE BLOOD COUNT 2.9 K/mm3 (4.0-10.0)
[2022-04-18 10:33] LABS: BASO % 0.3 % (0-2.0); EOS % 1.9 % (0-4.5); LYMPH % 28.9 % (8-40); MONO % 8.5 % (3.8-10.2); NEUT % 60.4 % (42.8-82.8)
[2022-04-18] MEDS: ASPIRIN COATED 81 MG TABLET.EC PO SCH (11:05)
[2022-04-18] MEDS: FLUCONAZOLE 100 MG TABLET (UD) PO SCH (11:05)
[2022-04-18] MEDS: FAMOTIDINE 10 MG TABLET PO SCH (11:05)
[2022-04-18] MEDS: CLOPIDOGREL BISULFATE 75 MG TABLET (FP) PO SCH (11:05)
[2022-04-18] MEDS: CARVEDILOL 3.125 MG TABLET (FP) PO SCH ×2 (11:05→21:27)
[2022-04-18] MEDS: BUDESONIDE/FORMETEROL FUMARATE 160/4.5 mcg INHALER IH SCH ×2 (11:06→21:27)
[2022-04-18] MEDS: AMMONIUM LACTATE 12% LOTION 225 GM BOTTLE TP SCH (11:06)
[2022-04-18 11:50] LABS: ALBUMIN 2.6 g/dl (3.4-5.0); BLOOD UREA NITROGEN 32.9 mg/dL (7-18); CALCIUM 7.9 mg/dL (8.5-10.1); MAGNESIUM 1.9 mg/dL (1.8-2.4)
[2022-04-18 11:53] LABS: CREATININE 1.2 mg/dL (0.55-1.3)
[2022-04-18 11:55] LABS: BILIRUBIN,TOTAL 0.2 mg/dL (0.2-1); TOT PROT 5.9 g/dl (6.4-8.2)
[2022-04-18] MEDS ORDERED: ESCITALOPRAM OXALATE 10 MG TABLET ONE (21:17)
[2022-04-18] MEDS: ROSUVASTATIN CA 20 MG TABLET PO SCH (21:26)
[2022-04-18] MEDS: ESCITALOPRAM OXALATE 20 MG TABLET PO SCH (21:27)
[2022-04-19 03:07] VITALS: BP 141/80; PULSE 65; TEMP 97.7
== END 2022-04-19 02:40 | disposition home or self-care (01) | DRG 177 ==
LOC: JER 07:36 → JERBED 08:19 → OBSVTOIN 12:24 → J8W 16:34 → J6S 04-17 23:03
PROVIDERS: ADMIT Internal Medicine; ATTEND Nurse Practitioner Family
DX: U07.1 COVID-19 (principal); G93.41 Metabolic encephalopathy; I50.32 Chronic diastolic (congestive) heart failure; N17.9 Acute kidney failure, unspecified; N30.00 Acute cystitis without hematuria; B37.49 Other urogenital candidiasis; E11.9 Type 2 diabetes mellitus without complications; J44.9 Chronic obstructive pulmonary disease, unspecified; I11.0 Hypertensive heart disease with heart failure; E78.5 Hyperlipidemia, unspecified; I25.10 Atherosclerotic heart disease of native coronary artery without angina pectoris; E78.00 Pure hypercholesterolemia, unspecified; Z95.1 Presence of aortocoronary bypass graft; N40.0 Benign prostatic hyperplasia without lower urinary tract symptoms
CPT/HCPCS: 0241U-QW; 36415; 71045-TC-FY; 76705-TC; 76775-TC; 80053; 81003; 82436; 82550; 82570; 83735; 83880; 84100; 84133; 84300; 84484; 85025; 85027; 85610; 85730; 86140; 87077; 87081; 87086; 93005; 93010; 97116-GP; 97161-GP; 99285-25; G0378; J1644

== ENCOUNTER 2022-07-21 14:56 | Inpatient (IN) | payer OTHER, MEDICARE ==
[2022-07-21 17:06] LABS: LACTIC ACID 2.1 mmol/L (0.4-2.0)
[2022-07-21 17:14] LABS: BASO % 0.4 % (0-2.0); EOS % 0.9 % (0-4.5); HEMATOCRIT 36.1 % (35.4-49); HEMOGLOBIN 11.9 GM/dL (11.7-16.9); MCH 27.1 pg (25.7-33.7); MEAN CELL VOLUME 82.3 fl (80-96); MEAN PLT VOLUME 8.7 fl (7.5-11.1); MONO % 6.5 % (3.8-10.2); NEUT % 80.2 % (42.8-82.8); PLATELET COUNT 136 10^3/uL (134-434); RBC 4.38 M/mm3 (4.00-5.60); RDW 16.6 % (11.9-15.9); WHITE BLOOD COUNT 11.3 K/mm3 (4.0-10.0)
[2022-07-21] MEDS ORDERED: SODIUM CHLORIDE 0.9% 1000 ML INFUS.BAG IV ONE (17:22)
[2022-07-21 17:32] LABS: BLOOD UREA NITROGEN 36.7 mg/dL (7-18); CALCIUM 8.7 mg/dL (8.5-10.1); MAGNESIUM 2.1 mg/dL (1.8-2.4)
[2022-07-21 17:35] LABS: CREATININE 1.2 mg/dL (0.55-1.3)
[2022-07-21 17:37] LABS: BILIRUBIN,TOTAL 0.7 mg/dL (0.2-1)
[2022-07-21 17:40] LABS: N-TERMINAL BNP 2033.5 pg/ml (5-450)
[2022-07-21 19:38] LABS: EPI CELLS 4 /uL (0-25.1); HYALINE CASTS 7 /uL (0-3.1); URINE APPEARANCE CLEAR; URINE BACTERIA 20 /uL (0-1359); URINE BILIRUBIN NEGATIVE (NEGATIVE); URINE COLOR YELLOW; URINE GLUCOSE (UA) NEGATIVE (NEGATIVE); URINE KETONE NEGATIVE (NEGATIVE); URINE LEUK ESTERASE 2+ (NEGATIVE); URINE NITRITE NEGATIVE (NEGATIVE); URINE PROTEIN 2+ (NEGATIVE); URINE RBC 15 /uL (0-23.9); URINE UROBILINOGEN 0.2 mg/dL (0.2-1.0); URINE WBC 567 /uL (0-25.8)
[2022-07-21 20:05] LABS: CALCIUM 8.5 mg/dL (8.5-10.1)
[2022-07-21 20:06] LABS: BLOOD UREA NITROGEN 33.4 mg/dL (7-18)
[2022-07-21 20:09] LABS: CREATININE 1.1 mg/dL (0.55-1.3)
[2022-07-21 20:17] LABS: LACTIC ACID 2.3 mmol/L (0.4-2.0)
[2022-07-21] MEDS ORDERED: ACETAMINOPHEN 325 MG TABLET (FP) PO ONE (20:31)
[2022-07-21] MEDS ORDERED: ACETAMINOPHEN 325 MG TABLET (FP) ONE (20:36)
[2022-07-21] MEDS ORDERED: CEFTRIAXONE 1 GM/50 ML BAG ONE (21:56)
[2022-07-21] MEDS ORDERED: HEPARIN NA (PORCINE) 5,000 UNITS/ML 1ML VIAL ONE (21:56)
[2022-07-21] MEDS: HEPARIN NA (PORCINE) 5,000 UNITS/ML 1ML VIAL SQ SCH (22:04)
[2022-07-21] MEDS: CEFTRIAXONE 1 GM in DEXTROSE 5%-WATER - 50 ML IVPB SCH (22:04)
[2022-07-21 22:33] LABS: YEAST MODERATE (NEGATIVE)
[2022-07-22] MEDS ORDERED: MELATONIN 5 MG TABLETS PO ONE (01:17)
[2022-07-22] MEDS: SODIUM CHLORIDE 1,000 ML IV SCH ×2 (01:37→22:09)
[2022-07-22] MEDS ORDERED: MELATONIN 5 MG TABLETS ONE (01:38)
[2022-07-22] MEDS: INSULIN SLIDING SCALE (NOVOLOG) 1 VIAL SQ SCH ×4 (06:15→22:18)
[2022-07-22] MEDS: HEPARIN NA (PORCINE) 5,000 UNITS/ML 1ML VIAL SQ SCH ×3 (06:15→21:52)
[2022-07-22 07:33] LABS: BASO % 0.6 % (0-2.0); EOS % 1.7 % (0-4.5); HEMATOCRIT 33.6 % (35.4-49); HEMOGLOBIN 11.2 GM/dL (11.7-16.9); LYMPH % 15.9 % (8-40); MCH 27.4 pg (25.7-33.7); MCHC 33.4 g/dl (32.0-35.9); MEAN PLT VOLUME 8.3 fl (7.5-11.1); MONO % 6.6 % (3.8-10.2); NEUT % 75.2 % (42.8-82.8); PLATELET COUNT 122 10^3/uL (134-434); RBC 4.09 M/mm3 (4.00-5.60); RDW 16.2 % (11.9-15.9)
[2022-07-22 07:54] LABS: MAGNESIUM 1.9 mg/dL (1.8-2.4)
[2022-07-22 07:58] LABS: PHOSPHOROUS 2.5 mg/dL (2.5-4.9)
[2022-07-22] MEDS ORDERED: FLU VACC QS2022-23(6MOS UP)/PF 60 MCG/0.5 ML SYRINGE IM ONE (09:00)
[2022-07-22] MEDS ORDERED: TRIMETHOBENZAMIDE HCL 200MG/2ML INJ IM ONE (10:11)
[2022-07-22] MEDS: CLOPIDOGREL BISULFATE 75 MG TABLET (FP) PO SCH (10:34)
[2022-07-22] MEDS: GABAPENTIN 300 MG CAPSULE PO SCH ×2 (10:34→21:53)
[2022-07-22] MEDS: CEFTRIAXONE 1 GM in DEXTROSE 5%-WATER - 50 ML IVPB SCH (10:34)
[2022-07-22] MEDS: ASPIRIN COATED 81 MG TABLET.EC PO SCH (10:34)
[2022-07-22] MEDS: CARVEDILOL 3.125 MG TABLET (FP) PO SCH (21:52)
[2022-07-22] MEDS: ESCITALOPRAM OXALATE 20 MG TABLET PO SCH (21:53)
[2022-07-22] MEDS: SACUBITRIL/VALSARTAN 24 MG-26 MG TABLET PO SCH (21:53)
[2022-07-23] MEDS: HEPARIN NA (PORCINE) 5,000 UNITS/ML 1ML VIAL SQ SCH ×3 (06:09→21:34)
[2022-07-23] MEDS: INSULIN SLIDING SCALE (NOVOLOG) 1 VIAL SQ SCH ×4 (06:36→21:34)
[2022-07-23 07:50] LABS: BASO % 0.7 % (0-2.0); EOS % 2.1 % (0-4.5); HEMATOCRIT 31.4 % (35.4-49); HEMOGLOBIN 10.6 GM/dL (11.7-16.9); MCH 27.6 pg (25.7-33.7); MCHC 33.6 g/dl (32.0-35.9); MEAN PLT VOLUME 8.5 fl (7.5-11.1); MONO % 6.3 % (3.8-10.2); NEUT % 69.9 % (42.8-82.8); PLATELET COUNT 122 10^3/uL (134-434); RBC 3.83 M/mm3 (4.00-5.60); RDW 16.6 % (11.9-15.9)
[2022-07-23 07:57] LABS: WHITE BLOOD COUNT 8.1 K/mm3 (4.0-10.0)
[2022-07-23 08:31] LABS: CALCIUM 8.6 mg/dL (8.5-10.1)
[2022-07-23 08:32] LABS: ALBUMIN 2.7 g/dl (3.4-5.0); BLOOD UREA NITROGEN 25.3 mg/dL (7-18); MAGNESIUM 1.8 mg/dL (1.8-2.4)
[2022-07-23 08:35] LABS: CREATININE 1.1 mg/dL (0.55-1.3); PHOSPHOROUS 2.7 mg/dL (2.5-4.9)
[2022-07-23 08:36] LABS: BILIRUBIN,TOTAL 0.5 mg/dL (0.2-1); TOT PROT 6.3 g/dl (6.4-8.2)
[2022-07-23] MEDS: GABAPENTIN 300 MG CAPSULE PO SCH ×2 (09:27→21:34)
[2022-07-23] MEDS: CARVEDILOL 3.125 MG TABLET (FP) PO SCH ×2 (09:27→21:34)
[2022-07-23] MEDS: CLOPIDOGREL BISULFATE 75 MG TABLET (FP) PO SCH (09:27)
[2022-07-23] MEDS: NYSTATIN 100,000 UNIT/GM TOPICAL CREAM 15 GM TUBE TP SCH (09:27)
[2022-07-23] MEDS: ASPIRIN COATED 81 MG TABLET.EC PO SCH (09:27)
[2022-07-23] MEDS: CEFTRIAXONE 1 GM in DEXTROSE 5%-WATER - 50 ML IVPB SCH (09:27)
[2022-07-23 15:22] VITALS: BMI 23.5
[2022-07-23] MEDS: SACUBITRIL/VALSARTAN 24 MG-26 MG TABLET PO SCH (21:34)
[2022-07-23] MEDS: ESCITALOPRAM OXALATE 20 MG TABLET PO SCH (21:34)
[2022-07-24] MEDS: INSULIN SLIDING SCALE (NOVOLOG) 1 VIAL SQ SCH ×4 (06:16→22:01)
[2022-07-24] MEDS: HEPARIN NA (PORCINE) 5,000 UNITS/ML 1ML VIAL SQ SCH ×3 (06:16→22:00)
[2022-07-24 07:25] LABS: HEMATOCRIT 30.8 % (35.4-49); HEMOGLOBIN 10.4 GM/dL (11.7-16.9); MCH 26.9 pg (25.7-33.7); MCHC 33.6 g/dl (32.0-35.9); MEAN CELL VOLUME 80.1 fl (80-96); MEAN PLT VOLUME 7.7 fl (7.5-11.1); PLATELET COUNT 127 10^3/uL (134-434); RBC 3.85 M/mm3 (4.00-5.60); RDW 16.1 % (11.9-15.9); WHITE BLOOD COUNT 6.2 K/mm3 (4.0-10.0)
[2022-07-24 07:48] LABS: CALCIUM 8.4 mg/dL (8.5-10.1)
[2022-07-24 07:49] LABS: BLOOD UREA NITROGEN 24.3 mg/dL (7-18); MAGNESIUM 1.7 mg/dL (1.8-2.4)
[2022-07-24 07:52] LABS: PHOSPHOROUS 2.8 mg/dL (2.5-4.9)
[2022-07-24 07:53] LABS: CREATININE 1.2 mg/dL (0.55-1.3)
[2022-07-24] MEDS ORDERED: SODIUM ZIRCONIUM CYCLOSILICATE (LOKELMA) 5 GM PACKET PO ONE (08:11)
[2022-07-24] MEDS ORDERED: INSULIN REGULAR HUMAN 100 UNITS/ML *VIAL IVPUSH ONE (08:12)
[2022-07-24] MEDS ORDERED: SENNOSIDES 8.6MG TABLET (FP) PO ONE (08:13)
[2022-07-24] MEDS ORDERED: DEXTROSE 50%-WATER - 25 GM/50 ML VIAL IVPUSH ONE (08:14)
[2022-07-24] MEDS ORDERED: DEXTROSE 50%-WATER 25 GM/50 ML DISP.SYRIN IVPUSH ONE (09:30)
[2022-07-24] MEDS: CLOPIDOGREL BISULFATE 75 MG TABLET (FP) PO SCH (09:39)
[2022-07-24] MEDS: CARVEDILOL 3.125 MG TABLET (FP) PO SCH ×2 (09:39→22:00)
[2022-07-24] MEDS: CEFTRIAXONE 1 GM in DEXTROSE 5%-WATER - 50 ML IVPB SCH (09:39)
[2022-07-24] MEDS: ASPIRIN COATED 81 MG TABLET.EC PO SCH (09:39)
[2022-07-24] MEDS: GABAPENTIN 300 MG CAPSULE PO SCH ×2 (09:39→22:00)
[2022-07-24] MEDS: NYSTATIN 100,000 UNIT/GM TOPICAL CREAM 15 GM TUBE TP SCH (09:40)
[2022-07-24] MEDS: POLYETHYLENE GLYCOL (HEALTHYLAX) 3350 17 GM PACKET PO SCH ×2 (13:18→22:00)
[2022-07-24] MEDS: DOXYCYCLINE HYCLATE 100 MG CAPSULE PO SCH (16:59)
[2022-07-24] MEDS: ESCITALOPRAM OXALATE 20 MG TABLET PO SCH (22:00)
[2022-07-25] MEDS: INSULIN SLIDING SCALE (NOVOLOG) 1 VIAL SQ SCH ×4 (06:21→21:11)
[2022-07-25] MEDS: HEPARIN NA (PORCINE) 5,000 UNITS/ML 1ML VIAL SQ SCH ×3 (06:22→21:10)
[2022-07-25] MEDS: POLYETHYLENE GLYCOL (HEALTHYLAX) 3350 17 GM PACKET PO SCH ×3 (06:22→21:12)
[2022-07-25] MEDS ORDERED: INSULIN (LEVEMIR) 100 UNITS/ML UNITS SQ SCH (07:00)
[2022-07-25] MEDS: GABAPENTIN 300 MG CAPSULE PO SCH ×2 (09:37→21:10)
[2022-07-25] MEDS: DOXYCYCLINE HYCLATE 100 MG CAPSULE PO SCH ×2 (09:37→17:25)
[2022-07-25] MEDS: ASPIRIN COATED 81 MG TABLET.EC PO SCH (09:37)
[2022-07-25] MEDS: CARVEDILOL 3.125 MG TABLET (FP) PO SCH ×2 (09:37→21:11)
[2022-07-25] MEDS: CLOPIDOGREL BISULFATE 75 MG TABLET (FP) PO SCH (09:37)
[2022-07-25] MEDS: NYSTATIN 100,000 UNIT/GM TOPICAL CREAM 15 GM TUBE TP SCH (09:38)
[2022-07-25] MEDS ORDERED: PANTOPRAZOLE 40 MG TABLET PO SCH (10:00)
[2022-07-25] MEDS: ESCITALOPRAM OXALATE 20 MG TABLET PO SCH (21:11)
[2022-07-25 21:57] VITALS: BP 141/73; PULSE 68; RESP 20; TEMP 98.5
== END 2022-07-25 22:00 | disposition home health service (06) | DRG 392 ==
LOC: JER 14:56 → JERBED 20:13 → OBSVTOIN 21:08 → J2W 07-22 04:35
PROVIDERS: ADMIT Internal Medicine; ATTEND Internal Medicine
DX: K22.0 Achalasia of cardia (principal); I13.0 Hypertensive heart and chronic kidney disease with heart failure and stage 1 through stage 4 chronic kidney disease, or unspecified chronic kidney disease; N39.0 Urinary tract infection, site not specified; I50.22 Chronic systolic (congestive) heart failure; J44.9 Chronic obstructive pulmonary disease, unspecified; E78.5 Hyperlipidemia, unspecified; R07.89 Other chest pain; N40.0 Benign prostatic hyperplasia without lower urinary tract symptoms; I25.5 Ischemic cardiomyopathy; K59.00 Constipation, unspecified; D64.9 Anemia, unspecified; R94.5 Abnormal results of liver function studies; R29.6 Repeated falls; L30.4 Erythema intertrigo; M10.9 Gout, unspecified; I25.119 Atherosclerotic heart disease of native coronary artery with unspecified angina pectoris; E11.22 Type 2 diabetes mellitus with diabetic chronic kidney disease; N18.9 Chronic kidney disease, unspecified; K57.90 Diverticulosis of intestine, part unspecified, without perforation or abscess without bleeding; R11.10 Vomiting, unspecified; M54.50 Low back pain, unspecified; K44.9 Diaphragmatic hernia without obstruction or gangrene; E87.5 Hyperkalemia; E11.51 Type 2 diabetes mellitus with diabetic peripheral angiopathy without gangrene; L89.620 Pressure ulcer of left heel, unstageable; L89.610 Pressure ulcer of right heel, unstageable; Z95.5 Presence of coronary angioplasty implant and graft; Z87.11 Personal history of peptic ulcer disease; Z95.1 Presence of aortocoronary bypass graft
CPT/HCPCS: 0241U-QW; 36415; 71045-TC-FY; 74176-TC; 74220-TC-FY; 76705-TC; 80048; 80053; 80061; 81003; 82962; 83036; 83605; 83735; 83880; 84100; 84443; 84484; 85025; 85027; 87040; 87077; 87086; 87324; 87449; 93005; 93010; 93306-TC; 97162-GP; 99285-25; G0378; J1644

== ENCOUNTER 2022-10-03 02:11 | Inpatient (IN) | payer OTHER, MEDICARE ==
[2022-10-03 02:47] VITALS: BMI 26.5
[2022-10-03] MEDS ORDERED: ACETAMINOPHEN 1000 MG/100 ML BAG IVPB ONE (03:43)
[2022-10-03 03:58] LABS: BASO % 0.5 % (0-2.0); EOS % 1.9 % (0-4.5); HEMATOCRIT 36.6 % (35.4-49); HEMOGLOBIN 12.5 GM/dL (11.7-16.9); LYMPH % 16.6 % (8-40); MCH 27.3 pg (25.7-33.7); MCHC 34.1 g/dl (32.0-35.9); MEAN CELL VOLUME 80.3 fl (80-96); MEAN PLT VOLUME 7.9 fl (7.5-11.1); MONO % 5.7 % (3.8-10.2); NEUT % 75.3 % (42.8-82.8); PLATELET COUNT 122 10^3/uL (134-434); RBC 4.56 M/mm3 (4.00-5.60); RDW 17.8 % (11.9-15.9); WHITE BLOOD COUNT 6.9 K/mm3 (4.0-10.0)
[2022-10-03] MEDS ORDERED: ACETAMINOPHEN INJECTION 100 ML IVPB ONE (04:11)
[2022-10-03 04:16] LABS: POTASSIUM 4.5 mmol/L (3.5-5.1)
[2022-10-03 04:18] LABS: CALCIUM 8.8 mg/dL (8.5-10.1)
[2022-10-03 04:19] LABS: ALBUMIN 3.4 g/dl (3.4-5.0); BLOOD UREA NITROGEN 34.2 mg/dL (7-18)
[2022-10-03 04:23] LABS: BILIRUBIN,TOTAL 0.4 mg/dL (0.2-1); CREATININE 1.4 mg/dL (0.55-1.3); TOT PROT 7.3 g/dl (6.4-8.2)
[2022-10-03] MEDS ORDERED: ASPIRIN 81 MG CHEWABLE TABLETS PO ONE (07:15)
[2022-10-03] MEDS ORDERED: CLOPIDOGREL BISULFATE 75 MG TABLET (FP) PO ONE (07:16)
[2022-10-03] MEDS ORDERED: CLOPIDOGREL BISULFATE 75 MG TABLET (FP) ONE (07:26)
[2022-10-03] MEDS ORDERED: ASPIRIN 81 MG CHEWABLE TABLETS ONE (07:27)
[2022-10-03] MEDS ORDERED: NITROGLYCERIN SUBLINGUAL 1/150 0.4 MG TAB SL ONE (07:53)
[2022-10-03] MEDS ORDERED: NITROGLYCERIN SUBLINGUAL 1/150 0.4 MG TAB SL PRN ×2 (08:23→08:36)
[2022-10-03] MEDS ORDERED: SODIUM CHLORIDE 500 ML IV SCH (08:45)
[2022-10-03] MEDS: FAMOTIDINE 20 MG TABLET PO SCH ×2 (09:50→21:19)
[2022-10-03] MEDS: ASPIRIN COATED 81 MG TABLET.EC PO SCH (09:50)
[2022-10-03] MEDS: CARVEDILOL 3.125 MG TABLET (FP) PO SCH ×2 (09:50→21:19)
[2022-10-03] MEDS: BUDESONIDE/FORMETEROL FUMARATE 160/4.5 mcg INHALER IH SCH ×2 (09:54→21:19)
[2022-10-03] MEDS: INSULIN SLIDING SCALE (NOVOLOG) 1 VIAL SQ SCH ×3 (11:19→21:14)
[2022-10-03] MEDS: HEPARIN NA (PORCINE) 5,000 UNITS/ML 1ML VIAL SQ SCH ×2 (14:04→21:20)
[2022-10-03] MEDS: ROSUVASTATIN CA 20 MG TABLET PO SCH (21:20)
[2022-10-03] MEDS: ESCITALOPRAM OXALATE 20 MG TABLET PO SCH (21:20)
[2022-10-04] MEDS: MELATONIN 5 MG TABLETS PO PRN (03:50)
[2022-10-04] MEDS: HEPARIN NA (PORCINE) 5,000 UNITS/ML 1ML VIAL SQ SCH ×3 (05:57→22:09)
[2022-10-04] MEDS: INSULIN SLIDING SCALE (NOVOLOG) 1 VIAL SQ SCH ×4 (06:00→22:08)
[2022-10-04 07:43] LABS: POTASSIUM 4.3 mmol/L (3.5-5.1)
[2022-10-04 07:46] LABS: CALCIUM 8.6 mg/dL (8.5-10.1)
[2022-10-04 07:47] LABS: ALBUMIN 2.9 g/dl (3.4-5.0); BLOOD UREA NITROGEN 34.1 mg/dL (7-18); MAGNESIUM 2.1 mg/dL (1.8-2.4)
[2022-10-04 07:49] LABS: PHOSPHOROUS 3.3 mg/dL (2.5-4.9)
[2022-10-04 07:50] LABS: CREATININE 1.2 mg/dL (0.55-1.3)
[2022-10-04 07:51] LABS: TOT PROT 6.1 g/dl (6.4-8.2)
[2022-10-04 07:52] LABS: BILIRUBIN,TOTAL 0.4 mg/dL (0.2-1)
[2022-10-04 07:59] LABS: BASO % 0.8 % (0-2.0); EOS % 2.8 % (0-4.5); HEMOGLOBIN 10.2 GM/dL (11.7-16.9); LYMPH % 25.7 % (8-40); MCH 28.2 pg (25.7-33.7); MCHC 35.3 g/dl (32.0-35.9); MEAN CELL VOLUME 79.9 fl (80-96); MEAN PLT VOLUME 8.6 fl (7.5-11.1); MONO % 5.4 % (3.8-10.2); NEUT % 65.3 % (42.8-82.8); PLATELET COUNT 105 10^3/uL (134-434); RBC 3.63 M/mm3 (4.00-5.60); WHITE BLOOD COUNT 5.5 K/mm3 (4.0-10.0)
[2022-10-04] MEDS: CLOPIDOGREL BISULFATE 75 MG TABLET (FP) PO SCH (10:09)
[2022-10-04] MEDS: BUDESONIDE/FORMETEROL FUMARATE 160/4.5 mcg INHALER IH SCH ×2 (10:10→22:10)
[2022-10-04] MEDS: ASPIRIN COATED 81 MG TABLET.EC PO SCH (10:10)
[2022-10-04] MEDS: FAMOTIDINE 20 MG TABLET PO SCH (10:10)
[2022-10-04] MEDS: CARVEDILOL 3.125 MG TABLET (FP) PO SCH ×2 (10:10→22:09)
[2022-10-04 13:09] LABS: EPI CELLS 8 /uL (0-25.1); HYALINE CASTS 2 /uL (0-3.1); URINE APPEARANCE CLOUDY; URINE BACTERIA 7 /uL (0-1359); URINE BILIRUBIN NEGATIVE (NEGATIVE); URINE COLOR YELLOW; URINE GLUCOSE (UA) NEGATIVE (NEGATIVE); URINE KETONE NEGATIVE (NEGATIVE); URINE LEUK ESTERASE 3+ (NEGATIVE); URINE NITRITE NEGATIVE (NEGATIVE); URINE PROTEIN 1+ (NEGATIVE); URINE RBC 40 /uL (0-23.9); URINE UROBILINOGEN 0.2 mg/dL (0.2-1.0); URINE WBC 1811 /uL (0-25.8)
[2022-10-04 13:37] LABS: YEAST MANY PRESENT (NEGATIVE)
[2022-10-04] MEDS: ROSUVASTATIN CA 20 MG TABLET PO SCH (22:08)
[2022-10-04] MEDS: ESCITALOPRAM OXALATE 20 MG TABLET PO SCH (22:09)
[2022-10-04] MEDS: RANOLAZINE E.R. 500 MG TABLET (FP) PO SCH (22:09)
[2022-10-04] MEDS: TAMSULOSIN HCL 0.4 MG CAP PO SCH (22:09)
[2022-10-04] MEDS: LATANOPROST 0.005% OPHTH SOLN 2.5ML BOTTLE OU SCH (22:21)
[2022-10-05] MEDS: INSULIN SLIDING SCALE (NOVOLOG) 1 VIAL SQ SCH ×4 (06:24→22:28)
[2022-10-05] MEDS: HEPARIN NA (PORCINE) 5,000 UNITS/ML 1ML VIAL SQ SCH ×3 (06:24→22:19)
[2022-10-05] MEDS: RANOLAZINE E.R. 500 MG TABLET (FP) PO SCH ×2 (09:14→22:19)
[2022-10-05] MEDS: TAMSULOSIN HCL 0.4 MG CAP PO SCH ×2 (09:14→22:19)
[2022-10-05] MEDS: CARVEDILOL 3.125 MG TABLET (FP) PO SCH ×2 (09:14→22:19)
[2022-10-05] MEDS: CLOPIDOGREL BISULFATE 75 MG TABLET (FP) PO SCH (09:14)
[2022-10-05] MEDS: BUDESONIDE/FORMETEROL FUMARATE 160/4.5 mcg INHALER IH SCH ×2 (09:15→22:23)
[2022-10-05 11:00] LABS: POTASSIUM 4.4 mmol/L (3.5-5.1)
[2022-10-05 11:03] LABS: BLOOD UREA NITROGEN 34.8 mg/dL (7-18); CALCIUM 8.5 mg/dL (8.5-10.1)
[2022-10-05 11:04] LABS: ALBUMIN 2.9 g/dl (3.4-5.0)
[2022-10-05 11:06] LABS: CREATININE 1.4 mg/dL (0.55-1.3)
[2022-10-05 11:08] LABS: BILIRUBIN,TOTAL 0.6 mg/dL (0.2-1); TOT PROT 6.2 g/dl (6.4-8.2)
[2022-10-05] MEDS: ESCITALOPRAM OXALATE 20 MG TABLET PO SCH (22:19)
[2022-10-05] MEDS: ROSUVASTATIN CA 20 MG TABLET PO SCH (22:19)
[2022-10-05] MEDS: MELATONIN 5 MG TABLETS PO PRN (22:19)
[2022-10-05] MEDS: LATANOPROST 0.005% OPHTH SOLN 2.5ML BOTTLE OU SCH (22:24)
[2022-10-05] MEDS ORDERED: INSULIN (NOVOLOG) ASPART 100 UNITS/ML 10ML VIAL ONE (22:27)
[2022-10-06] MEDS: HEPARIN NA (PORCINE) 5,000 UNITS/ML 1ML VIAL SQ SCH ×2 (06:10→14:04)
[2022-10-06] MEDS: INSULIN SLIDING SCALE (NOVOLOG) 1 VIAL SQ SCH ×3 (06:11→16:30)
[2022-10-06] MEDS: TAMSULOSIN HCL 0.4 MG CAP PO SCH (09:39)
[2022-10-06] MEDS: CARVEDILOL 3.125 MG TABLET (FP) PO SCH (09:39)
[2022-10-06] MEDS: RANOLAZINE E.R. 500 MG TABLET (FP) PO SCH (09:39)
[2022-10-06] MEDS: CLOPIDOGREL BISULFATE 75 MG TABLET (FP) PO SCH (09:39)
[2022-10-06] MEDS: BUDESONIDE/FORMETEROL FUMARATE 160/4.5 mcg INHALER IH SCH (09:39)
[2022-10-06 11:48] VITALS: RESP 18
[2022-10-06 13:52] VITALS: BP 105/62; PULSE 68; TEMP 97.8
== END 2022-10-06 18:18 | disposition home or self-care (01) | DRG 690 ==
LOC: JER 02:11 → INTOOBSV 04:48 → UNDOADMOB 04:48 → JERBED 04:48 → J4W 08:09 → JERBED 08:09 → J4W 08:45 → OBSVTOIN 10-05 14:39 → J6S 10-06 13:32
PROVIDERS: ADMIT Internal Medicine; ATTEND Internal Medicine
DX: N39.0 Urinary tract infection, site not specified (principal); I50.42 Chronic combined systolic (congestive) and diastolic (congestive) heart failure; I13.0 Hypertensive heart and chronic kidney disease with heart failure and stage 1 through stage 4 chronic kidney disease, or unspecified chronic kidney disease; I25.119 Atherosclerotic heart disease of native coronary artery with unspecified angina pectoris; I25.5 Ischemic cardiomyopathy; E11.9 Type 2 diabetes mellitus without complications; D64.9 Anemia, unspecified; R07.9 Chest pain, unspecified; I73.9 Peripheral vascular disease, unspecified; J44.9 Chronic obstructive pulmonary disease, unspecified; Z95.1 Presence of aortocoronary bypass graft; N18.30 Chronic kidney disease, stage 3 unspecified
CPT/HCPCS: 0241U-QW; 36415; 71045-TC-FY; 80053; 81003; 82962; 83735; 84100; 84484; 85025; 87077; 87086; 93005; 93010; 99285-25; G0378; J1644

== ENCOUNTER 2022-10-31 04:09 | Day surgery (SDC) | payer OTHER, MEDICARE ==
[2022-10-29 15:27] VITALS: BMI 23.0
[2022-10-31] MEDS ORDERED: BUPIVACAINE HCL/PF 0.5% (5MG/ML) 10 ML VIAL ONE (07:40)
[2022-10-31] MEDS ORDERED: LIDOCAINE HCL/PF 1% SDV 5ML VIAL ONE (07:40)
[2022-10-31] MEDS ORDERED: ACETAMINOPHEN 500 MG TABLET (FP) PO PRN (11:28)
[2022-10-31 14:55] VITALS: RESP 18; TEMP 97.8
[2022-10-31 15:08] VITALS: BP 132/61; PULSE 62
== END 2022-10-31 13:30 | disposition home or self-care (01) ==
LOC: JASU-SURG 04:09
PROVIDERS: ATTEND Pain Medicine Pain Medicine
PROC: 3E0T33Z Introduction of Anti-inflammatory into Peripheral Nerves and Plexi, Percutaneous Approach (ICD-10-PCS; 2022-10-31)
PROC: BR14ZZZ Fluoroscopy of Cervical Facet Joint(s) (ICD-10-PCS; 2022-10-31)
PROC: 3E0T3BZ Introduction of Anesthetic Agent into Peripheral Nerves and Plexi, Percutaneous Approach (ICD-10-PCS; principal; 2022-10-31 12:52)
DX: M54.12 Radiculopathy, cervical region (principal)
CPT/HCPCS: 76000-TC-FY

== ENCOUNTER 2022-12-12 10:02 | Emergency (ER) | payer OTHER, MEDICARE ==
[2022-12-12 10:20] VITALS: BMI 24.4
[2022-12-12] MEDS ORDERED: SODIUM CHLORIDE 500 ML IV STA (11:56)
[2022-12-12 12:50] LABS: BASO % 0.7 % (0-2.0); EOS % 1.4 % (0-4.5); HEMATOCRIT 36.1 % (35.4-49); HEMOGLOBIN 11.7 GM/dL (11.7-16.9); LYMPH % 15.3 % (8-40); MCH 26.2 pg (25.7-33.7); MCHC 32.4 g/dl (32.0-35.9); MEAN PLT VOLUME 8.5 fl (7.5-11.1); MONO % 5.9 % (3.8-10.2); NEUT % 76.7 % (42.8-82.8); PLATELET COUNT 139 10^3/uL (134-434); RBC 4.46 M/mm3 (4.00-5.60); RDW 16.5 % (11.9-15.9); WHITE BLOOD COUNT 8.2 K/mm3 (4.0-10.0)
[2022-12-12 13:11] LABS: POTASSIUM 4.9 mmol/L (3.5-5.1)
[2022-12-12 13:14] LABS: ALBUMIN 3.3 g/dl (3.4-5.0); BLOOD UREA NITROGEN 28.1 mg/dL (7-18); CALCIUM 9.1 mg/dL (8.5-10.1); MAGNESIUM 2.2 mg/dL (1.8-2.4)
[2022-12-12 13:17] LABS: CREATININE 1.2 mg/dL (0.55-1.3)
[2022-12-12 13:19] LABS: BILIRUBIN,TOTAL 0.5 mg/dL (0.2-1); TOT PROT 7.4 g/dl (6.4-8.2)
[2022-12-12 15:05] VITALS: BP 115/53; PULSE 62; RESP 15; TEMP 98.1
== END 2022-12-12 15:19 | disposition home or self-care (01) ==
LOC: JER 10:02
PROC: 3E0337Z Introduction of Electrolytic and Water Balance Substance into Peripheral Vein, Percutaneous Approach (ICD-10-PCS; principal; 2022-12-12)
DX: I95.1 Orthostatic hypotension (principal); H53.8 Other visual disturbances
CPT/HCPCS: 36415; 71045-TC-FY; 80053; 82962; 83735; 85025; 93005; 93010; 99285-25

== ENCOUNTER 2022-12-22 21:58 | Inpatient (IN) | payer OTHER, MEDICARE ==
[2022-12-22] MEDS ORDERED: PIPERACILLIN/TAZOB 4.5 GM 4.5 GM in DEXTROSE 5%-WATER 100 ML IVPB ONE (23:35)
[2022-12-22] MEDS ORDERED: VANCOMYCIN 1,000 MG in DEXTROSE 5%-WATER - 250 ML IVPB ONE (23:35)
[2022-12-22] MEDS ORDERED: PIPERACILLIN/TAZOB 4.5 GM 4.5 GM/100 ML BAG IVPB ONE (23:46)
[2022-12-22] MEDS ORDERED: VANCOMYCIN/WATER FOR INJ (PEG) 1,000 MG/200 ML BAG IVPB ONE (23:46)
[2022-12-23 01:01] LABS: BASO % 0.6 % (0-2.0); HEMATOCRIT 37.4 % (35.4-49); HEMOGLOBIN 12.6 GM/dL (11.7-16.9); LYMPH % 21.5 % (8-40); MCH 26.8 pg (25.7-33.7); MCHC 33.6 g/dl (32.0-35.9); MEAN CELL VOLUME 79.7 fl (80-96); MEAN PLT VOLUME 8.4 fl (7.5-11.1); NEUT % 69.9 % (42.8-82.8); PLATELET COUNT 134 10^3/uL (134-434); RDW 17.2 % (11.9-15.9); WHITE BLOOD COUNT 6.9 K/mm3 (4.0-10.0)
[2022-12-23 01:09] LABS: PROTHROMBIN TIME (PATIENT) 11.6 SEC (9.7-13.0)
[2022-12-23 01:11] LABS: ACTIVATED PTT 28.4 SECONDS (25.2-36.5)
[2022-12-23 01:13] LABS: CHLORIDE 110 mmol/L (98-107); POTASSIUM 5.9 mmol/L (3.5-5.1); SODIUM 140 mmol/L (136-145)
[2022-12-23 01:15] LABS: CALCIUM 9.1 mg/dL (8.5-10.1)
[2022-12-23 01:16] LABS: ALBUMIN 3.2 g/dl (3.4-5.0); ANION GAP 3 MMOL/L (8-16); BLOOD UREA NITROGEN 32.4 mg/dL (7-18); CO2 27 mmol/L (21-32); GLUCOSE,RANDOM 193 mg/dL (74-106)
[2022-12-23 01:19] LABS: CREATININE 1.1 mg/dL (0.55-1.3)
[2022-12-23 01:20] LABS: TOT PROT 7.6 g/dl (6.4-8.2)
[2022-12-23 01:22] LABS: ALK PHOS 117 U/L (45-117)
[2022-12-23 01:25] LABS: SGOT/AST 147 U/L (15-37); SGPT/ALT 155 U/L (13-61)
[2022-12-23 01:27] LABS: BILIRUBIN,TOTAL 0.5 mg/dL (0.2-1)
[2022-12-23 02:01] LABS: ERYTHROCYTE SEDIMENTATION RATE 26 mm/hr (0-20)
[2022-12-23 02:05] LABS: EPI CELLS 6 /uL (0-25.1); HYALINE CASTS 6 /uL (0-3.1); URINE APPEARANCE CLOUDY; URINE BACTERIA 20 /uL (0-1359); URINE BILIRUBIN NEGATIVE (NEGATIVE); URINE COLOR YELLOW; URINE GLUCOSE (UA) TRACE (NEGATIVE); URINE KETONE NEGATIVE (NEGATIVE); URINE LEUK ESTERASE 3+ (NEGATIVE); URINE NITRITE NEGATIVE (NEGATIVE); URINE PROTEIN 2+ (NEGATIVE); URINE RBC 46 /uL (0-23.9); URINE WBC 2806 /uL (0-25.8)
[2022-12-23 02:31] LABS: YEAST MANY (NEGATIVE)
[2022-12-23] MEDS ORDERED: ALBUTEROL SO4 HFA INHALER IH PRN (07:16)
[2022-12-23] MEDS ORDERED: NITROGLYCERIN SUBLINGUAL 1/150 0.4 MG TAB SL PRN (07:16)
[2022-12-23] MEDS: INSULIN SLIDING SCALE (NOVOLOG) 1 VIAL SQ SCH ×4 (08:22→22:08)
[2022-12-23] MEDS ORDERED: PIPERACILLIN/TAZOB 3.375 GM 3.375 GM in DEXTROSE 5%-WATER - 50 ML IVPB SCH ×2 (09:00→10:00)
[2022-12-23] MEDS ORDERED: ASPIRIN COATED 81 MG TABLET.EC ONE (10:42)
[2022-12-23] MEDS ORDERED: TAMSULOSIN HCL 0.4 MG CAP ONE (10:44)
[2022-12-23] MEDS ORDERED: ENOXAPARIN NA (PORCINE) 40 MG/0.4 ML DISP.SYRIN SQ ONE (10:44)
[2022-12-23] MEDS ORDERED: CARVEDILOL 3.125 MG TABLET (FP) ONE (10:44)
[2022-12-23] MEDS ORDERED: CLOPIDOGREL BISULFATE 75 MG TABLET (FP) ONE (10:44)
[2022-12-23] MEDS ORDERED: PANTOPRAZOLE 40 MG TABLET PO ONE (10:44)
[2022-12-23] MEDS ORDERED: PIPERACILLIN/TAZOB 3.375 GM 3.375 GM/50 ML BAG IVPB ONE (10:45)
[2022-12-23] MEDS: ASPIRIN COATED 81 MG TABLET.EC PO SCH (11:00)
[2022-12-23] MEDS: ENOXAPARIN NA (PORCINE) 40 MG/0.4 ML DISP.SYRIN SQ SCH (11:00)
[2022-12-23] MEDS: CARVEDILOL 3.125 MG TABLET (FP) PO SCH (11:00)
[2022-12-23] MEDS: CLOPIDOGREL BISULFATE 75 MG TABLET (FP) PO SCH (11:00)
[2022-12-23] MEDS: PANTOPRAZOLE 40 MG TABLET PO SCH (11:05)
[2022-12-23] MEDS: TAMSULOSIN HCL 0.4 MG CAP PO SCH ×2 (11:10→22:01)
[2022-12-23] MEDS: BUDESONIDE/FORMETEROL FUMARATE 160/4.5 mcg INHALER IH SCH ×2 (11:26→22:03)
[2022-12-23 12:18] LABS: HEMATOCRIT 38.2 % (35.4-49); HEMOGLOBIN 12.1 GM/dL (11.7-16.9); MCH 25.9 pg (25.7-33.7); MCHC 31.7 g/dl (32.0-35.9); MEAN CELL VOLUME 81.6 fl (80-96); MEAN PLT VOLUME 8.5 fl (7.5-11.1); PLATELET COUNT 100 10^3/uL (134-434); RBC 4.68 M/mm3 (4.00-5.60); RDW 17.1 % (11.9-15.9); WHITE BLOOD COUNT 6.6 K/mm3 (4.0-10.0)
[2022-12-23 12:26] LABS: POTASSIUM 4.5 mmol/L (3.5-5.1)
[2022-12-23 12:28] LABS: CALCIUM 8.3 mg/dL (8.5-10.1)
[2022-12-23 12:29] LABS: ALBUMIN 2.8 g/dl (3.4-5.0); BLOOD UREA NITROGEN 28.7 mg/dL (7-18)
[2022-12-23 12:32] LABS: CREATININE 1.1 mg/dL (0.55-1.3)
[2022-12-23 12:33] LABS: BILIRUBIN,TOTAL 0.4 mg/dL (0.2-1)
[2022-12-23 12:34] LABS: TOT PROT 6.1 g/dl (6.4-8.2)
[2022-12-23 17:36] VITALS: BMI 22.6
[2022-12-23] MEDS: PIPERACILLIN/TAZOB 3.375 GM 3.375 GM in DEXTROSE 5%-WATER - 50 ML IVPB SCH (18:28)
[2022-12-23] MEDS: ESCITALOPRAM OXALATE 20 MG TABLET PO SCH (22:00)
[2022-12-23] MEDS ORDERED: ROSUVASTATIN CA 20 MG TABLET PO SCH (22:00)
[2022-12-23] MEDS: LATANOPROST 0.005% OPHTH SOLN 2.5ML BOTTLE OU SCH (22:03)
[2022-12-24] MEDS: MELATONIN 5 MG TABLETS PO PRN (00:43)
[2022-12-24] MEDS: PIPERACILLIN/TAZOB 3.375 GM 3.375 GM in DEXTROSE 5%-WATER - 50 ML IVPB SCH ×2 (02:02→10:58)
[2022-12-24] MEDS: INSULIN SLIDING SCALE (NOVOLOG) 1 VIAL SQ SCH ×4 (06:16→22:47)
[2022-12-24 10:09] LABS: HEMATOCRIT 32.4 % (35.4-49); HEMOGLOBIN 10.8 GM/dL (11.7-16.9); MCH 26.7 pg (25.7-33.7); MCHC 33.5 g/dl (32.0-35.9); MEAN CELL VOLUME 79.7 fl (80-96); MEAN PLT VOLUME 8.4 fl (7.5-11.1); PLATELET COUNT 105 10^3/uL (134-434); RBC 4.06 M/mm3 (4.00-5.60); RDW 17.1 % (11.9-15.9); WHITE BLOOD COUNT 5.5 K/mm3 (4.0-10.0)
[2022-12-24 10:34] LABS: POTASSIUM 4.6 mmol/L (3.5-5.1)
[2022-12-24 10:39] LABS: CALCIUM 8.7 mg/dL (8.5-10.1)
[2022-12-24 10:40] LABS: ALBUMIN 2.8 g/dl (3.4-5.0); BLOOD UREA NITROGEN 28.5 mg/dL (7-18)
[2022-12-24 10:43] LABS: CREATININE 1.4 mg/dL (0.55-1.3)
[2022-12-24 10:45] LABS: TOT PROT 6.2 g/dl (6.4-8.2)
[2022-12-24 10:52] LABS: BILIRUBIN,TOTAL 0.6 mg/dL (0.2-1)
[2022-12-24 10:57] LABS: ERYTHROCYTE SEDIMENTATION RATE 25 mm/hr (0-20)
[2022-12-24] MEDS: ENOXAPARIN NA (PORCINE) 40 MG/0.4 ML DISP.SYRIN SQ SCH (10:58)
[2022-12-24] MEDS: BUDESONIDE/FORMETEROL FUMARATE 160/4.5 mcg INHALER IH SCH ×2 (10:58→22:06)
[2022-12-24] MEDS: ASPIRIN COATED 81 MG TABLET.EC PO SCH (10:58)
[2022-12-24] MEDS: TAMSULOSIN HCL 0.4 MG CAP PO SCH ×2 (10:58→22:01)
[2022-12-24] MEDS: CARVEDILOL 3.125 MG TABLET (FP) PO SCH (10:58)
[2022-12-24] MEDS: PANTOPRAZOLE 40 MG TABLET PO SCH (10:58)
[2022-12-24] MEDS: CLOPIDOGREL BISULFATE 75 MG TABLET (FP) PO SCH (10:58)
[2022-12-24] MEDS: CEFTRIAXONE 1 GM in DEXTROSE 5%-WATER - 50 ML IVPB SCH (13:50)
[2022-12-24] MEDS ORDERED: SODIUM CHLORIDE 1,000 ML IV SCH (16:00)
[2022-12-24] MEDS: ESCITALOPRAM OXALATE 20 MG TABLET PO SCH (22:01)
[2022-12-24] MEDS: LATANOPROST 0.005% OPHTH SOLN 2.5ML BOTTLE OU SCH ×2 (22:06→22:09)
[2022-12-25] MEDS: INSULIN SLIDING SCALE (NOVOLOG) 1 VIAL SQ SCH ×4 (06:45→22:32)
[2022-12-25] MEDS: ASPIRIN COATED 81 MG TABLET.EC PO SCH (09:46)
[2022-12-25] MEDS: CARVEDILOL 3.125 MG TABLET (FP) PO SCH (09:46)
[2022-12-25] MEDS: PANTOPRAZOLE 40 MG TABLET PO SCH (09:46)
[2022-12-25] MEDS: TAMSULOSIN HCL 0.4 MG CAP PO SCH ×2 (09:46→22:32)
[2022-12-25] MEDS: CLOPIDOGREL BISULFATE 75 MG TABLET (FP) PO SCH (09:46)
[2022-12-25] MEDS: ENOXAPARIN NA (PORCINE) 40 MG/0.4 ML DISP.SYRIN SQ SCH (09:46)
[2022-12-25] MEDS: CEFTRIAXONE 1 GM in DEXTROSE 5%-WATER - 50 ML IVPB SCH (09:47)
[2022-12-25] MEDS: BUDESONIDE/FORMETEROL FUMARATE 160/4.5 mcg INHALER IH SCH ×2 (09:48→22:32)
[2022-12-25 09:50] LABS: HEMATOCRIT 36.4 % (35.4-49); HEMOGLOBIN 11.7 GM/dL (11.7-16.9); MCH 26.1 pg (25.7-33.7); MEAN CELL VOLUME 81.6 fl (80-96); MEAN PLT VOLUME 8.7 fl (7.5-11.1); PLATELET COUNT 121 10^3/uL (134-434); RBC 4.46 M/mm3 (4.00-5.60); WHITE BLOOD COUNT 5.2 K/mm3 (4.0-10.0)
[2022-12-25 10:44] LABS: CHLORIDE 112 mmol/L (98-107); SODIUM 143 mmol/L (136-145)
[2022-12-25 10:46] LABS: CALCIUM 8.4 mg/dL (8.5-10.1)
[2022-12-25 10:47] LABS: ALBUMIN 3.1 g/dl (3.4-5.0); ANION GAP 7 MMOL/L (8-16); CO2 24 mmol/L (21-32); GLUCOSE,RANDOM 144 mg/dL (74-106)
[2022-12-25 10:50] LABS: CREATININE 1.3 mg/dL (0.55-1.3); SGOT/AST 49 U/L (15-37); SGPT/ALT 88 U/L (13-61)
[2022-12-25 10:51] LABS: BILIRUBIN,TOTAL 0.4 mg/dL (0.2-1)
[2022-12-25 10:52] LABS: TOT PROT 6.6 g/dl (6.4-8.2)
[2022-12-25 10:53] LABS: ALK PHOS 97 U/L (45-117)
[2022-12-25 14:30] LABS: CHOLESTEROL 93 mg/dL (50-200)
[2022-12-25 14:31] LABS: LDL CHOLESTEROL (ONLY SJRH) 54 mg/dL (5-100)
[2022-12-25 14:34] LABS: HDL CHOLESTEROL 38 mg/dL (40-60)
[2022-12-25] MEDS: ESCITALOPRAM OXALATE 20 MG TABLET PO SCH (22:32)
[2022-12-25] MEDS: MELATONIN 5 MG TABLETS PO PRN (22:32)
[2022-12-25] MEDS: LATANOPROST 0.005% OPHTH SOLN 2.5ML BOTTLE OU SCH (22:47)
[2022-12-26] MEDS: INSULIN SLIDING SCALE (NOVOLOG) 1 VIAL SQ SCH ×3 (07:16→16:54)
[2022-12-26] MEDS: TAMSULOSIN HCL 0.4 MG CAP PO SCH (11:14)
[2022-12-26] MEDS: CLOPIDOGREL BISULFATE 75 MG TABLET (FP) PO SCH (11:15)
[2022-12-26] MEDS: ENOXAPARIN NA (PORCINE) 40 MG/0.4 ML DISP.SYRIN SQ SCH (11:15)
[2022-12-26] MEDS: CARVEDILOL 3.125 MG TABLET (FP) PO SCH (11:15)
[2022-12-26] MEDS: CEFTRIAXONE 1 GM in DEXTROSE 5%-WATER - 50 ML IVPB SCH (11:15)
[2022-12-26] MEDS: PANTOPRAZOLE 40 MG TABLET PO SCH (11:15)
[2022-12-26] MEDS: ASPIRIN COATED 81 MG TABLET.EC PO SCH (11:15)
[2022-12-26] MEDS: BUDESONIDE/FORMETEROL FUMARATE 160/4.5 mcg INHALER IH SCH (11:17)
[2022-12-26 16:27] VITALS: RESP 18
[2022-12-26 19:42] VITALS: BP 129/68; PULSE 82; TEMP 98.8
== END 2022-12-26 21:24 | disposition home or self-care (01) | DRG 603 ==
LOC: JER 21:58 → JERBED 12-23 01:55 → J5S 12-23 17:05
PROVIDERS: ADMIT Student in an Organized Health Care Education/Training Program
DX: L03.031 Cellulitis of right toe (principal); N39.0 Urinary tract infection, site not specified; I50.22 Chronic systolic (congestive) heart failure; L97.518 Non-pressure chronic ulcer of other part of right foot with other specified severity; I25.10 Atherosclerotic heart disease of native coronary artery without angina pectoris; J44.9 Chronic obstructive pulmonary disease, unspecified; N40.0 Benign prostatic hyperplasia without lower urinary tract symptoms; I11.0 Hypertensive heart disease with heart failure; K76.0 Fatty (change of) liver, not elsewhere classified; E78.5 Hyperlipidemia, unspecified; L89.629 Pressure ulcer of left heel, unspecified stage; L89.619 Pressure ulcer of right heel, unspecified stage; E11.51 Type 2 diabetes mellitus with diabetic peripheral angiopathy without gangrene; E11.621 Type 2 diabetes mellitus with foot ulcer; F32.A Depression, unspecified; Z95.5 Presence of coronary angioplasty implant and graft
CPT/HCPCS: 36415; 73521-TC-FY; 73630-TC-RT-FY; 76705-TC; 80053; 80061; 80307; 81003; 82962; 83036; 84132; 85025; 85027; 85610; 85651; 85730; 86140; 87077; 87086; 93005; 93010; 97116-GP; 97162-GP; 99285-25

== ENCOUNTER 2023-01-15 05:03 | Day surgery (SDC) | payer OTHER, MEDICARE ==
[2023-01-13 08:56] VITALS: BMI 22.7
[2023-01-15] MEDS ORDERED: LIDOCAINE HCL 1%, 10 MG/ML (20ML VIAL) ONE (09:38)
[2023-01-15] MEDS ORDERED: HEPARIN NA (PORCINE) 5,000 UNITS/ML 1ML VIAL ONE (09:48)
[2023-01-15] MEDS ORDERED: ONDANSETRON 4 MG/2 ML VIAL IVPUSH PRN (09:55)
[2023-01-15] MEDS ORDERED: ACETAMINOPHEN 325 MG TABLET (FP) PO ONE (09:55)
[2023-01-15] MEDS ORDERED: MIDAZOLAM HCL 2 MG/2 ML SINGLE DOSE VIAL ONE (10:30)
[2023-01-15] MEDS ORDERED: PROPOFOL 20 ML ONE (11:08)
[2023-01-15] MEDS ORDERED: SUCCINYLCHOLINE CHLORIDE 200 MG/10 ML VIAL ONE (11:08)
[2023-01-15] MEDS ORDERED: LIDOCAINE HCL 1%, 10 MG/ML (20ML VIAL) INF ONE (11:23)
[2023-01-15] MEDS ORDERED: IOHEXOL 300 MG/ML INFUS..BTL IV ONE ×2 (11:23)
[2023-01-15] MEDS ORDERED: HEPARIN NA (PORCINE) 5,000 UNITS/ML 1ML VIAL TP ONE (11:24)
[2023-01-15 13:18] VITALS: RESP 18
[2023-01-15 14:12] VITALS: BP 129/59; PULSE 64; TEMP 97.2
== END 2023-01-15 14:22 | disposition home or self-care (01) ==
LOC: JASU-SURG 05:03
PROVIDERS: ATTEND Surgery Vascular Surgery
PROC: 047M3ZZ Dilation of Right Popliteal Artery, Percutaneous Approach (ICD-10-PCS; principal; 2023-01-15 11:00)
DX: I96 Gangrene, not elsewhere classified (principal)
CPT/HCPCS: 76000-TC-FY; 82962; 94760; C1769; C1887; J1644

== ENCOUNTER 2023-03-30 04:19 | Day surgery (SDC) | payer OTHER, MEDICARE ==
[2023-03-26 13:36] VITALS: BMI 22.7
[2023-03-30] MEDS ORDERED: PROPOFOL 20 ML ONE (08:10)
[2023-03-30] MEDS ORDERED: FENTANYL CITRATE/PF 50 MCG/ML VIAL ONE ×2 (08:10→09:35)
[2023-03-30] MEDS ORDERED: ceFAZolin SODIUM 1 GM VIAL IVPB ONE (08:30)
[2023-03-30] MEDS ORDERED: ONDANSETRON 4 MG/2 ML VIAL ONE (08:34)
[2023-03-30] MEDS ORDERED: DEXAMETHASONE SOD PHOSPHATE 4 MG/1 ML VIAL ONE (08:34)
[2023-03-30] MEDS ORDERED: KETOROLAC TROMETHAMINE 30 MG/1 ML VIAL ONE (08:34)
[2023-03-30] MEDS ORDERED: oxyCODONE HCL 5 MG TABLET PO PRN (09:02)
[2023-03-30] MEDS ORDERED: ONDANSETRON 4 MG/2 ML VIAL IVPUSH PRN (09:02)
[2023-03-30] MEDS ORDERED: LACTATED RINGERS SOLUTION 1,000 ML IV SCH (09:15)
[2023-03-30 10:37] VITALS: RESP 16
[2023-03-30 11:38] VITALS: BP 109/58; PULSE 66; TEMP 96.9
== END 2023-03-30 12:20 | disposition home or self-care (01) ==
LOC: JASU-SURG 04:19
PROVIDERS: ATTEND Urology
PROC: 0T7D8ZZ Dilation of Urethra, Via Natural or Artificial Opening Endoscopic (ICD-10-PCS; principal; 2023-03-30 08:00)
DX: N35.919 Unspecified urethral stricture, male, unspecified site (principal); N32.0 Bladder-neck obstruction
CPT/HCPCS: 82962; 94760

== ENCOUNTER 2023-07-10 04:17 | Day surgery (SDC) | payer OTHER, MEDICARE ==
[2023-07-03 17:50] VITALS: BMI 22.7
[2023-07-10] MEDS ORDERED: LIDOCAINE HCL/PF 1% SDV 5ML VIAL ONE (07:17)
[2023-07-10] MEDS ORDERED: BUPIVACAINE HCL/PF 0.5% (5MG/ML) 10 ML VIAL ONE (07:17)
[2023-07-10] MEDS: BUPIVACAINE HCL/PF 0.5% (5MG/ML) 10 ML VIAL IJ ONE (10:19)
[2023-07-10 10:36] VITALS: BP 130/57; PULSE 62; RESP 18; TEMP 97.8
[2023-07-10] MEDS ORDERED: ACETAMINOPHEN 500 MG TABLET (FP) PO PRN (11:11)
== END 2023-07-10 11:33 | disposition home or self-care (01) ==
LOC: JASU-SURG 04:17
PROVIDERS: ATTEND Pain Medicine Pain Medicine
PROC: 3E0T33Z Introduction of Anti-inflammatory into Peripheral Nerves and Plexi, Percutaneous Approach (ICD-10-PCS; 2023-07-10)
PROC: 3E0T3BZ Introduction of Anesthetic Agent into Peripheral Nerves and Plexi, Percutaneous Approach (ICD-10-PCS; principal; 2023-07-10 10:15)
DX: M47.812 Spondylosis without myelopathy or radiculopathy, cervical region (principal)
CPT/HCPCS: 76000-TC-FY

== ENCOUNTER 2023-07-30 15:32 | Inpatient (IN) | payer OTHER, MEDICARE ==
[2023-07-30] MEDS ORDERED: ACETAMINOPHEN INJECTION 100 ML IVPB ONE (17:08)
[2023-07-30 18:23] LABS: BASO % 0.3 % (0-2.0); EOS % 1.6 % (0-4.5); HEMOGLOBIN 12.6 GM/dL (11.7-16.9); LYMPH % 7.4 % (8-40); MCH 27.5 pg (25.7-33.7); MCHC 34.2 g/dl (32.0-35.9); MEAN CELL VOLUME 80.5 fl (80-96); MEAN PLT VOLUME 8.1 fl (7.5-11.1); MONO % 5.1 % (3.8-10.2); NEUT % 85.6 % (42.8-82.8); PLATELET COUNT 159 10^3/uL (134-434); RBC 4.59 M/mm3 (4.00-5.60); RDW 17.4 % (11.9-15.9); WHITE BLOOD COUNT 10.4 K/mm3 (4.0-10.0)
[2023-07-30 18:24] LABS: EPI CELLS 11 /uL (0-25.1); HYALINE CASTS 5 /uL (0-3.1); URINE APPEARANCE CLOUDY; URINE BACTERIA 14 /uL (0-1359); URINE BILIRUBIN NEGATIVE (NEGATIVE); URINE COLOR YELLOW; URINE GLUCOSE (UA) TRACE (NEGATIVE); URINE KETONE NEGATIVE (NEGATIVE); URINE LEUK ESTERASE 2+ (NEGATIVE); URINE NITRITE NEGATIVE (NEGATIVE); URINE PROTEIN 2+ (NEGATIVE); URINE RBC 19 /uL (0-23.9); URINE WBC 753 /uL (0-25.8)
[2023-07-30 18:33] LABS: YEAST MODERATE (NEGATIVE)
[2023-07-30 18:42] LABS: POTASSIUM 4.8 mmol/L (3.5-5.1)
[2023-07-30 18:43] LABS: INR 1.14 (0.83-1.09); PROTHROMBIN TIME (PATIENT) 13.2 SEC (9.7-13.0)
[2023-07-30 18:44] LABS: ALBUMIN 2.9 g/dl (3.4-5.0); BLOOD UREA NITROGEN 30.1 mg/dL (7-18); CALCIUM 8.9 mg/dL (8.5-10.1)
[2023-07-30 18:48] LABS: CREATININE 1.1 mg/dL (0.55-1.3)
[2023-07-30 18:49] LABS: BILIRUBIN,TOTAL 0.5 mg/dL (0.2-1); TOT PROT 7.5 g/dl (6.4-8.2)
[2023-07-30] MEDS: ACETAMINOPHEN 500 MG TABLET (FP) PO ONE (19:08)
[2023-07-30] MEDS: SODIUM CHLORIDE 0.9% 500 ML INFUS.BAG IV ONE (19:26)
[2023-07-30] MEDS: ACETAMINOPHEN 1000 MG/100 ML BAG IVPB ONE (19:26)
[2023-07-30] MEDS ORDERED: CEFTRIAXONE 1 GM/50 ML BAG ONE (20:05)
[2023-07-30] MEDS: CEFTRIAXONE 1,000 MG in DEXTROSE 5%-WATER - 50 ML IVPB ONE (20:15)
[2023-07-30] MEDS ORDERED: METOCLOPRAMIDE HCL INJECTION 10 MG/2 ML VIAL ONE (21:06)
[2023-07-30] MEDS ORDERED: AZITHROMYCIN IVPB 500 MG/250 ML BAG IVPB ONE (21:06)
[2023-07-30] MEDS: AZITHROMYCIN IVPB 500 MG in DEXTROSE 5%-WATER - 250 ML IVPB ONE (21:25)
[2023-07-30] MEDS: METOCLOPRAMIDE HCL INJECTION 10 MG/2 ML VIAL IVPUSH ONE (21:25)
[2023-07-31] MEDS ORDERED: PANTOPRAZOLE 40 MG TABLET PO SCH (01:15)
[2023-07-31 07:46] LABS: BASO % 0.2 % (0-2.0); EOS % 0.9 % (0-4.5); HEMATOCRIT 34.6 % (35.4-49); HEMOGLOBIN 11.6 GM/dL (11.7-16.9); MCH 26.9 pg (25.7-33.7); MCHC 33.5 g/dl (32.0-35.9); MEAN CELL VOLUME 80.2 fl (80-96); MEAN PLT VOLUME 7.7 fl (7.5-11.1); MONO % 5.8 % (3.8-10.2); NEUT % 80.1 % (42.8-82.8); PLATELET COUNT 155 10^3/uL (134-434); RBC 4.31 M/mm3 (4.00-5.60); RDW 17.3 % (11.9-15.9); WHITE BLOOD COUNT 9.3 K/mm3 (4.0-10.0)
[2023-07-31] MEDS: INSULIN ASPART SLIDING SCALE (NOVOLOG) 1 VIAL SQ SCH (08:00)
[2023-07-31 08:04] LABS: POTASSIUM 3.9 mmol/L (3.5-5.1)
[2023-07-31 08:07] LABS: CALCIUM 8.4 mg/dL (8.5-10.1)
[2023-07-31 08:08] LABS: ALBUMIN 2.5 g/dl (3.4-5.0); BLOOD UREA NITROGEN 28.5 mg/dL (7-18); MAGNESIUM 1.8 mg/dL (1.8-2.4); PHOSPHOROUS 3.2 mg/dL (2.5-4.9)
[2023-07-31 08:09] LABS: CREATININE 1.1 mg/dL (0.55-1.3)
[2023-07-31 08:11] LABS: BILIRUBIN,TOTAL 0.4 mg/dL (0.2-1); TOT PROT 6.4 g/dl (6.4-8.2)
[2023-07-31] MEDS ORDERED: SACUBITRIL/VALSARTAN 24 MG-26 MG TABLET PO SCH (10:00)
[2023-07-31] MEDS: CLOPIDOGREL BISULFATE 75 MG TABLET (FP) PO SCH (11:25)
[2023-07-31] MEDS: PANTOPRAZOLE 40 MG TABLET PO SCH (11:25)
[2023-07-31] MEDS: PIPERACILLIN/TAZOB 3.375 GM 3.375 GM in DEXTROSE 5%-WATER - 50 ML IVPB SCH ×3 (11:25→18:06)
[2023-07-31] MEDS: CARVEDILOL 3.125 MG TABLET (FP) PO SCH (11:25)
[2023-07-31] MEDS: ENOXAPARIN NA (PORCINE) 40 MG/0.4 ML DISP.SYRIN SQ SCH (11:25)
[2023-07-31] MEDS: ASPIRIN COATED 81 MG TABLET.EC PO SCH (11:25)
[2023-07-31] MEDS: SACUBITRIL/VALSARTAN 24 MG-26 MG TABLET PO SCH (11:25)
[2023-07-31] MEDS ORDERED: METOPROLOL TARTRATE 5 MG/5 ML VIAL IVPUSH PRN (12:21)
[2023-07-31] MEDS ORDERED: ALBUTEROL SO4 0.083% IH SOL 2.5 MG/3 ML VIAL.NEB. NEB PRN (14:28)
[2023-07-31] MEDS: AMINO ACIDS 4.25%/D5W 1,000 ML IV SCH (14:30)
[2023-07-31] MEDS: BUDESONIDE/FORMETEROL FUMARATE 160/4.5 mcg INHALER IH SCH (14:32)
[2023-07-31] MEDS: methylPREDNISolone NA SUCC 40 MG/1 ML VIAL IVPUSH SCH (15:44)
[2023-07-31] MEDS: ALBUTEROL SO4 2.5/IPRATROPIUM 0.5 INH SOL 3 ML VIAL.NEB. NEB SCH (20:22)
[2023-07-31] MEDS: TAMSULOSIN HCL 0.4 MG CAP PO SCH (21:40)
[2023-07-31] MEDS: ROSUVASTATIN CA 20 MG TABLET PO SCH (21:40)
[2023-07-31] MEDS: ESCITALOPRAM OXALATE 20 MG TABLET PO SCH (21:40)
[2023-07-31] MEDS: LATANOPROST 0.005% OPHTH SOLN 2.5ML BOTTLE OU SCH (21:49)
[2023-07-31] MEDS ORDERED: CARVEDILOL 3.125 MG TABLET (FP) PO SCH (22:00)
[2023-08-01] MEDS: PANTOPRAZOLE SODIUM 40 MG VIAL IVPUSH SCH (09:31)
[2023-08-01] MEDS ORDERED: INSULIN (NOVOLOG) ASPART 100 UNITS/ML 10ML VIAL ONE ×2 (12:16→16:03)
[2023-08-01] MEDS ORDERED: INSULIN (LEVEMIR) 100 UNITS/ML UNITS SQ ONE (12:16)
[2023-08-01] MEDS: CARBAMIDE PEROXIDE 6.5% OTIC 15 ML BOTTLE AU SCH (12:35)
[2023-08-01 15:12] LABS: HEMATOCRIT 33.8 % (35.4-49); HEMOGLOBIN 10.9 GM/dL (11.7-16.9); MCH 26.6 pg (25.7-33.7); MCHC 32.2 g/dl (32.0-35.9); MEAN CELL VOLUME 82.6 fl (80-96); MEAN PLT VOLUME 8.3 fl (7.5-11.1); PLATELET COUNT 137 10^3/uL (134-434); RDW 17.7 % (11.9-15.9); WHITE BLOOD COUNT 6.4 K/mm3 (4.0-10.0)
[2023-08-01 15:31] LABS: ANISOCYTOSIS 3+; MACROCYTOSIS 0; TEAR DROP CELLS 1+
[2023-08-01 15:41] LABS: CHLORIDE 108 mmol/L (98-107); POTASSIUM 4.4 mmol/L (3.5-5.1); SODIUM 136 mmol/L (136-145)
[2023-08-01 15:43] LABS: CALCIUM 8.4 mg/dL (8.5-10.1)
[2023-08-01 15:44] LABS: ALBUMIN 2.3 g/dl (3.4-5.0); ANION GAP 8 mmol/L (4-13); CO2 20 mmol/L (21-32); MAGNESIUM 1.9 mg/dL (1.8-2.4)
[2023-08-01 15:46] LABS: SGPT/ALT 57 U/L (13-61)
[2023-08-01 15:47] LABS: CREATININE 1.7 mg/dL (0.55-1.3); SGOT/AST 69 U/L (15-37)
[2023-08-01 15:48] LABS: BILIRUBIN,TOTAL 0.2 mg/dL (0.2-1); TOT PROT 6.2 g/dl (6.4-8.2)
[2023-08-01 15:49] LABS: ALK PHOS 87 U/L (45-117)
[2023-08-01 15:50] LABS: GLUCOSE,RANDOM 431 mg/dL (74-106)
[2023-08-01] MEDS: INSULIN ASPART SLIDING SCALE (NOVOLOG) 1 VIAL SQ SCH (16:01)
[2023-08-01] MEDS: INSULIN (LEVEMIR) 100 UNITS/ML UNITS SQ SCH ×2 (21:39→22:55)
[2023-08-02] MEDS: INSULIN (LEVEMIR) 100 UNITS/ML UNITS SQ SCH (06:22)
[2023-08-02] MEDS: ACETAMINOPHEN 325 MG TABLET (FP) PO ONE ×2 (06:44→22:55)
[2023-08-02 07:01] LABS: BASO % 0.2 % (0-2.0); EOS % 0.1 % (0-4.5); HEMATOCRIT 31.6 % (35.4-49); HEMOGLOBIN 10.5 GM/dL (11.7-16.9); LYMPH % 7.6 % (8-40); MCHC 33.2 g/dl (32.0-35.9); MEAN CELL VOLUME 81.3 fl (80-96); MEAN PLT VOLUME 7.8 fl (7.5-11.1); MONO % 3.2 % (3.8-10.2); NEUT % 88.9 % (42.8-82.8); PLATELET COUNT 160 10^3/uL (134-434); RBC 3.88 M/mm3 (4.00-5.60); RDW 16.9 % (11.9-15.9); WHITE BLOOD COUNT 9.7 K/mm3 (4.0-10.0)
[2023-08-02 07:28] LABS: POTASSIUM 4.7 mmol/L (3.5-5.1)
[2023-08-02 07:30] LABS: CALCIUM 8.4 mg/dL (8.5-10.1)
[2023-08-02 07:31] LABS: ALBUMIN 2.4 g/dl (3.4-5.0); BLOOD UREA NITROGEN 59.2 mg/dL (7-18); MAGNESIUM 1.8 mg/dL (1.8-2.4)
[2023-08-02 07:34] LABS: CREATININE 1.8 mg/dL (0.55-1.3)
[2023-08-02 07:35] LABS: TOT PROT 6.2 g/dl (6.4-8.2)
[2023-08-02 07:36] LABS: BILIRUBIN,TOTAL 0.2 mg/dL (0.2-1)
[2023-08-02] MEDS ORDERED: INSULIN (NOVOLOG) ASPART 100 UNITS/ML 10ML VIAL ONE ×3 (11:34→21:27)
[2023-08-03 07:31] LABS: BASO % 0.1 % (0-2.0); EOS % 0.1 % (0-4.5); HEMATOCRIT 33.3 % (35.4-49); HEMOGLOBIN 11.3 GM/dL (11.7-16.9); LYMPH % 10.6 % (8-40); MCHC 33.8 g/dl (32.0-35.9); MEAN CELL VOLUME 79.9 fl (80-96); NEUT % 84.2 % (42.8-82.8); PLATELET COUNT 170 10^3/uL (134-434); RBC 4.17 M/mm3 (4.00-5.60); RDW 16.9 % (11.9-15.9); WHITE BLOOD COUNT 8.3 K/mm3 (4.0-10.0)
[2023-08-03 07:34] LABS: POTASSIUM 4.8 mmol/L (3.5-5.1)
[2023-08-03 07:41] LABS: CALCIUM 8.7 mg/dL (8.5-10.1)
[2023-08-03 07:42] LABS: ALBUMIN 2.5 g/dl (3.4-5.0); BLOOD UREA NITROGEN 54.9 mg/dL (7-18); MAGNESIUM 1.9 mg/dL (1.8-2.4)
[2023-08-03 07:45] LABS: CREATININE 1.7 mg/dL (0.55-1.3)
[2023-08-03 07:46] LABS: BILIRUBIN,TOTAL 0.2 mg/dL (0.2-1); TOT PROT 6.4 g/dl (6.4-8.2)
[2023-08-03] MEDS: predniSONE 20 MG TABLET (UD) PO SCH (09:36)
[2023-08-03] MEDS: PANTOPRAZOLE 40 MG TABLET PO SCH (09:37)
[2023-08-03] MEDS ORDERED: INSULIN (NOVOLOG) ASPART 100 UNITS/ML 10ML VIAL ONE ×2 (11:33→17:14)
[2023-08-03] MEDS: ROSUVASTATIN CA 10 MG TABLET PO SCH (21:10)
[2023-08-04 07:28] LABS: HEMATOCRIT 33.6 % (35.4-49); HEMOGLOBIN 11.3 GM/dL (11.7-16.9); MCH 27.4 pg (25.7-33.7); MCHC 33.7 g/dl (32.0-35.9); MEAN CELL VOLUME 81.2 fl (80-96); MEAN PLT VOLUME 8.2 fl (7.5-11.1); PLATELET COUNT 166 10^3/uL (134-434); RBC 4.14 M/mm3 (4.00-5.60); RDW 16.4 % (11.9-15.9); WHITE BLOOD COUNT 7.3 K/mm3 (4.0-10.0)
[2023-08-04 07:49] LABS: POTASSIUM 4.9 mmol/L (3.5-5.1)
[2023-08-04 07:54] LABS: ALBUMIN 2.6 g/dl (3.4-5.0); CALCIUM 8.9 mg/dL (8.5-10.1)
[2023-08-04 07:57] LABS: CREATININE 1.5 mg/dL (0.55-1.3); PHOSPHOROUS 2.9 mg/dL (2.5-4.9)
[2023-08-04 07:58] LABS: BILIRUBIN,TOTAL 0.2 mg/dL (0.2-1); TOT PROT 6.4 g/dl (6.4-8.2)
[2023-08-04] MEDS: ENOXAPARIN NA (PORCINE) 40 MG/0.4 ML DISP.SYRIN SQ SCH (09:20)
[2023-08-04 11:43] VITALS: BMI 22.4
[2023-08-04] MEDS ORDERED: INSULIN (NOVOLOG) ASPART 100 UNITS/ML 10ML VIAL ONE (17:41)
[2023-08-05 04:07] VITALS: BP 167/82; PULSE 53; RESP 19; TEMP 98.5
== END 2023-08-05 03:18 | disposition home or self-care (01) | DRG 190 ==
LOC: JER 15:32 → OBSVTOIN 20:36 → JERBED 20:36 → J2W 07-31 10:19
PROVIDERS: ADMIT Internal Medicine; ATTEND Internal Medicine
DX: J44.0 Chronic obstructive pulmonary disease with (acute) lower respiratory infection (principal); J18.9 Pneumonia, unspecified organism; I13.0 Hypertensive heart and chronic kidney disease with heart failure and stage 1 through stage 4 chronic kidney disease, or unspecified chronic kidney disease; E44.0 Moderate protein-calorie malnutrition; N39.0 Urinary tract infection, site not specified; I50.32 Chronic diastolic (congestive) heart failure; N17.9 Acute kidney failure, unspecified; I25.10 Atherosclerotic heart disease of native coronary artery without angina pectoris; J44.1 Chronic obstructive pulmonary disease with (acute) exacerbation; E11.22 Type 2 diabetes mellitus with diabetic chronic kidney disease; E78.00 Pure hypercholesterolemia, unspecified; R29.6 Repeated falls; N18.9 Chronic kidney disease, unspecified; M10.9 Gout, unspecified; K59.00 Constipation, unspecified; I25.5 Ischemic cardiomyopathy; E11.51 Type 2 diabetes mellitus with diabetic peripheral angiopathy without gangrene; F32.A Depression, unspecified; H40.9 Unspecified glaucoma; H61.23 Impacted cerumen, bilateral; N40.0 Benign prostatic hyperplasia without lower urinary tract symptoms; R94.31 Abnormal electrocardiogram [ECG] [EKG]; R91.1 Solitary pulmonary nodule; I44.0 Atrioventricular block, first degree; B96.89 Other specified bacterial agents as the cause of diseases classified elsewhere; B95.61 Methicillin susceptible Staphylococcus aureus infection as the cause of diseases classified elsewhere; R62.7 Adult failure to thrive; Z68.22 Body mass index [BMI] 22.0-22.9, adult; Z95.1 Presence of aortocoronary bypass graft; Z95.0 Presence of cardiac pacemaker; Z87.11 Personal history of peptic ulcer disease
CPT/HCPCS: 0241U-QW; 36415; 71045-TC-FY; 80048; 80053; 81003; 82962; 83036; 83735; 84100; 84484; 85025; 85027; 85610; 87081; 87086; 87186; 93005; 93010; 94640; 94761; 97116-GP; 97162-GP; 99285-25

== ENCOUNTER 2023-09-15 20:31 | Inpatient (IN) | payer OTHER, MEDICARE ==
[2023-09-15 22:00] LABS: HEMATOCRIT 40.5 % (35.4-49); HEMOGLOBIN 13.4 GM/dL (11.7-16.9); MCH 27.5 pg (25.7-33.7); MEAN CELL VOLUME 83.4 fl (80-96); RBC 4.86 M/mm3 (4.00-5.60); RDW 17.6 % (11.9-15.9)
[2023-09-15 22:28] LABS: POTASSIUM 5.2 mmol/L (3.5-5.1)
[2023-09-15 22:31] LABS: ALBUMIN 3.2 g/dl (3.4-5.0)
[2023-09-15 22:32] LABS: BLOOD UREA NITROGEN 37.5 mg/dL (7-18); CALCIUM 8.6 mg/dL (8.5-10.1); MAGNESIUM 1.8 mg/dL (1.8-2.4)
[2023-09-15 22:34] LABS: CREATININE 1.3 mg/dL (0.55-1.3); PHOSPHOROUS 3.4 mg/dL (2.5-4.9)
[2023-09-15 22:35] LABS: ANISOCYTOSIS 1+; BILIRUBIN,TOTAL 0.5 mg/dL (0.2-1); OVALOCYTE 1+; PLATELET ESTIMATE ADEQUATE; TOT PROT 7.4 g/dl (6.4-8.2)
[2023-09-15 22:37] LABS: N-TERMINAL BNP 2715.3 pg/ml (5-450)
[2023-09-15] MEDS: ACETAMINOPHEN 1000 MG/100 ML BAG IVPB ONE (23:54)
[2023-09-15] MEDS: LACTATED RINGERS SOLUTION 1000 ML INFUS.BAG IV ONE (23:55)
[2023-09-16] MEDS ORDERED: MECLIZINE HCL 25 MG TABLET (FP) ONE ×2 (00:11→00:49)
[2023-09-16 00:14] LABS: VENOUS BASE EXCESS -5.5 mmol/L (-2-2); VENOUS O2 SATURATION 37.5 % (70-80); VENOUS PCO2 37.6 mmHg (38-52); VENOUS PH 7.337 (7.310-7.410)
[2023-09-16] MEDS: MECLIZINE HCL 25 MG TABLET (FP) PO ONE ×2 (00:15→00:58)
[2023-09-16 00:33] LABS: ACTIVATED PTT 40.6 SECONDS (25.2-36.5); INR 1.03 (0.83-1.09); PROTHROMBIN TIME (PATIENT) 11.6 SEC (9.7-13.0)
[2023-09-16] MEDS ORDERED: ACETAMINOPHEN INJECTION 100 ML IVPB ONE (00:49)
[2023-09-16] MEDS: ACETAMINOPHEN 1000 MG/100 ML BAG IVPB ONE (00:58)
[2023-09-16] MEDS: LACTATED RINGERS SOLUTION 1000 ML INFUS.BAG IV ONE (01:44)
[2023-09-16] MEDS ORDERED: METOCLOPRAMIDE HCL INJECTION 10 MG/2 ML VIAL ONE (01:50)
[2023-09-16] MEDS: METOCLOPRAMIDE HCL INJECTION 10 MG/2 ML VIAL IVPB ONE (01:55)
[2023-09-16] MEDS ORDERED: ALBUTEROL SO4 HFA INHALER IH PRN (02:15)
[2023-09-16 03:08] LABS: HEMOGLOBIN 11.2 GM/dL (11.7-16.9); MCH 28.1 pg (25.7-33.7); MCHC 34.1 g/dl (32.0-35.9); MEAN CELL VOLUME 82.4 fl (80-96); MEAN PLT VOLUME 7.5 fl (7.5-11.1); PLATELET COUNT 114 10^3/uL (134-434); RBC 4.01 M/mm3 (4.00-5.60); RDW 17.6 % (11.9-15.9); WHITE BLOOD COUNT 11.8 K/mm3 (4.0-10.0)
[2023-09-16 03:30] LABS: EPI CELLS 6 /uL (0-25.1); HYALINE CASTS 1 /uL (0-3.1); URINE APPEARANCE TURBID; URINE BACTERIA 21 /uL (0-1359); URINE BILIRUBIN NEGATIVE (NEGATIVE); URINE COLOR YELLOW; URINE GLUCOSE (UA) NEGATIVE (NEGATIVE); URINE KETONE NEGATIVE (NEGATIVE); URINE LEUK ESTERASE 3+ (NEGATIVE); URINE NITRITE NEGATIVE (NEGATIVE); URINE PROTEIN 1+ (NEGATIVE); URINE WBC 2951 /uL (0-25.8)
[2023-09-16 03:46] VITALS: BMI 20.9
[2023-09-16] MEDS: CEFTRIAXONE 1 GM in DEXTROSE 5%-WATER - 50 ML IVPB ONE ×2 (04:29→13:00)
[2023-09-16] MEDS: MECLIZINE HCL 25 MG TABLET (FP) PO SCH (06:23)
[2023-09-16 07:20] LABS: HEMATOCRIT 35.5 % (35.4-49); MCHC 33.7 g/dl (32.0-35.9); MEAN PLT VOLUME 8.2 fl (7.5-11.1); PLATELET COUNT 117 10^3/uL (134-434); RBC 4.27 M/mm3 (4.00-5.60); RDW 17.7 % (11.9-15.9); WHITE BLOOD COUNT 12.9 K/mm3 (4.0-10.0)
[2023-09-16 07:45] LABS: URINE RBC 98.3 /uL (0-23.9); YEAST MODERATE (NEGATIVE)
[2023-09-16 07:45] LABS: POTASSIUM 4.5 mmol/L (3.5-5.1)
[2023-09-16 08:00] LABS: ALBUMIN 2.8 g/dl (3.4-5.0); CALCIUM 8.8 mg/dL (8.5-10.1); MAGNESIUM 1.9 mg/dL (1.8-2.4)
[2023-09-16 08:03] LABS: CREATININE 1.3 mg/dL (0.55-1.3)
[2023-09-16 08:06] LABS: PHOSPHOROUS 3.4 mg/dL (2.5-4.9)
[2023-09-16 08:07] LABS: TOT PROT 6.3 g/dl (6.4-8.2)
[2023-09-16 08:08] LABS: BILIRUBIN,TOTAL 0.5 mg/dL (0.2-1)
[2023-09-16] MEDS: ENOXAPARIN NA (PORCINE) 40 MG/0.4 ML DISP.SYRIN SQ SCH (10:05)
[2023-09-16] MEDS: CLOPIDOGREL BISULFATE 75 MG TABLET (FP) PO SCH (10:05)
[2023-09-16] MEDS: ASPIRIN COATED 81 MG TABLET.EC PO SCH (10:05)
[2023-09-16] MEDS: BUDESONIDE/FORMETEROL FUMARATE 160/4.5 mcg INHALER IH SCH (10:06)
[2023-09-16] MEDS: SODIUM CHLORIDE 1,000 ML IV SCH (12:49)
[2023-09-16] MEDS ORDERED: ACETAMINOPHEN 500 MG TABLET (FP) PO PRN (13:23)
[2023-09-16] MEDS ORDERED: TRIMETHOBENZAMIDE HCL 200MG/2ML INJ IM PRN (13:26)
[2023-09-16] MEDS: PIPERACILLIN/TAZOB 3.375 GM 3.375 GM in DEXTROSE 5%-WATER - 50 ML IVPB SCH (18:09)
[2023-09-16] MEDS: ROSUVASTATIN CA 20 MG TABLET PO SCH (21:37)
[2023-09-16] MEDS: ESCITALOPRAM OXALATE 20 MG TABLET PO SCH (21:38)
[2023-09-16] MEDS: TAMSULOSIN HCL 0.4 MG CAP PO SCH (21:38)
[2023-09-16] MEDS: LATANOPROST 0.005% OPHTH SOLN 2.5ML BOTTLE OU SCH (22:06)
[2023-09-17 06:59] LABS: HEMATOCRIT 30.2 % (35.4-49); MCH 27.6 pg (25.7-33.7); MCHC 33.3 g/dl (32.0-35.9); MEAN CELL VOLUME 82.9 fl (80-96); MEAN PLT VOLUME 8.1 fl (7.5-11.1); PLATELET COUNT 66 10^3/uL (134-434); RBC 3.64 M/mm3 (4.00-5.60); RDW 17.5 % (11.9-15.9); WHITE BLOOD COUNT 7.6 K/mm3 (4.0-10.0)
[2023-09-17 07:21] LABS: POTASSIUM 4.6 mmol/L (3.5-5.1)
[2023-09-17 07:26] LABS: ALBUMIN 2.5 g/dl (3.4-5.0); BLOOD UREA NITROGEN 35.3 mg/dL (7-18); CALCIUM 8.2 mg/dL (8.5-10.1); MAGNESIUM 1.7 mg/dL (1.8-2.4)
[2023-09-17 07:29] LABS: CREATININE 1.2 mg/dL (0.55-1.3); PHOSPHOROUS 2.3 mg/dL (2.5-4.9)
[2023-09-17 07:31] LABS: BILIRUBIN,TOTAL 0.7 mg/dL (0.2-1)
[2023-09-17] MEDS: MAGNESIUM SULF 50% (8.12 MEQ/2 ML-1 GM VIAL) IVPB ONE (09:33)
[2023-09-17] MEDS: POLYETHYLENE GLYCOL (HEALTHYLAX) 3350 17 GM PACKET PO SCH (09:34)
[2023-09-17] MEDS: PANTOPRAZOLE 40 MG TABLET PO SCH (09:34)
[2023-09-17] MEDS ORDERED: CEFTRIAXONE 1 GM in DEXTROSE 5%-WATER - 50 ML IVPB SCH (10:00)
[2023-09-17] MEDS: NAPH,MB-DB/K PH,MBDB POWDER PACKET PO SCH (13:13)
[2023-09-17] MEDS: PIPERACILLIN/TAZOB 3.375 GM 3.375 GM in DEXTROSE 5%-WATER - 50 ML IVPB SCH (17:55)
[2023-09-17] MEDS: SACUBITRIL/VALSARTAN 24 MG-26 MG TABLET PO SCH (22:49)
[2023-09-18 07:17] LABS: HEMATOCRIT 28.6 % (35.4-49); HEMOGLOBIN 9.6 GM/dL (11.7-16.9); MCH 27.5 pg (25.7-33.7); MCHC 33.4 g/dl (32.0-35.9); MEAN CELL VOLUME 82.3 fl (80-96); MEAN PLT VOLUME 8.3 fl (7.5-11.1); PLATELET COUNT 110 10^3/uL (134-434); RBC 3.48 M/mm3 (4.00-5.60); RDW 17.3 % (11.9-15.9); WHITE BLOOD COUNT 6.1 K/mm3 (4.0-10.0)
[2023-09-18 07:35] LABS: POTASSIUM 4.8 mmol/L (3.5-5.1)
[2023-09-18 07:37] LABS: CALCIUM 8.3 mg/dL (8.5-10.1)
[2023-09-18 07:38] LABS: ALBUMIN 2.4 g/dl (3.4-5.0); BLOOD UREA NITROGEN 28.6 mg/dL (7-18); MAGNESIUM 2.1 mg/dL (1.8-2.4)
[2023-09-18 07:41] LABS: CREATININE 1.2 mg/dL (0.55-1.3); PHOSPHOROUS 2.2 mg/dL (2.5-4.9)
[2023-09-18 07:43] LABS: BILIRUBIN,TOTAL 0.5 mg/dL (0.2-1); TOT PROT 5.8 g/dl (6.4-8.2)
[2023-09-18] MEDS ORDERED: SACUBITRIL/VALSARTAN 24 MG-26 MG TABLET PO SCH (10:00)
[2023-09-18 12:36] VITALS: RESP 18
[2023-09-18] MEDS: NAPH,MB-DB/K PH,MBDB POWDER PACKET PO SCH (13:40)
[2023-09-18] MEDS: AMINO ACIDS 4.25%/D5W 1,000 ML IV SCH (15:59)
[2023-09-18 20:20] VITALS: BP 140/64; PULSE 70; TEMP 100
== END 2023-09-18 22:07 | disposition short-term general hospital (02) | DRG 102 ==
LOC: JER 20:31 → JERBED 09-16 01:37 → J4W 09-16 03:35
PROVIDERS: ADMIT Internal Medicine; ATTEND Internal Medicine
DX: G44.209 Tension-type headache, unspecified, not intractable (principal); J69.0 Pneumonitis due to inhalation of food and vomit; I13.0 Hypertensive heart and chronic kidney disease with heart failure and stage 1 through stage 4 chronic kidney disease, or unspecified chronic kidney disease; I50.22 Chronic systolic (congestive) heart failure; L97.518 Non-pressure chronic ulcer of other part of right foot with other specified severity; I25.10 Atherosclerotic heart disease of native coronary artery without angina pectoris; E78.00 Pure hypercholesterolemia, unspecified; J44.9 Chronic obstructive pulmonary disease, unspecified; M10.9 Gout, unspecified; E11.51 Type 2 diabetes mellitus with diabetic peripheral angiopathy without gangrene; R29.6 Repeated falls; E78.5 Hyperlipidemia, unspecified; M54.50 Low back pain, unspecified; D69.6 Thrombocytopenia, unspecified; R30.0 Dysuria; I25.5 Ischemic cardiomyopathy; N18.9 Chronic kidney disease, unspecified; R11.2 Nausea with vomiting, unspecified; R62.7 Adult failure to thrive; Z68.20 Body mass index [BMI] 20.0-20.9, adult; E11.22 Type 2 diabetes mellitus with diabetic chronic kidney disease; N40.0 Benign prostatic hyperplasia without lower urinary tract symptoms; I44.0 Atrioventricular block, first degree; K22.0 Achalasia of cardia; E11.621 Type 2 diabetes mellitus with foot ulcer; Z95.1 Presence of aortocoronary bypass graft; Z95.0 Presence of cardiac pacemaker
CPT/HCPCS: 0241U-QW; 36415; 70450-TC; 71045-TC-FY; 71275-TC; 74230-TC-FY; 80053; 81003; 82803; 82962; 83735; 83880; 84100; 84484; 85025; 85027; 85610; 85730; 86850; 86900; 86901; 87040; 87086; 87635; 92611-GN; 93005; 93010; 99285-25; J0131; Q9967

== ENCOUNTER 2023-10-23 14:33 | Inpatient (IN) | payer OTHER, MEDICARE ==
[2023-10-23] MEDS: SODIUM CHLORIDE 0.9% 500 ML INFUS.BAG IV ONE ×2 (15:40→17:32)
[2023-10-23 16:03] LABS: BASO % 0.4 % (0-2.0); EOS % 2.1 % (0-4.5); HEMATOCRIT 33.4 % (35.4-49); HEMOGLOBIN 10.9 GM/dL (11.7-16.9); LYMPH % 19.3 % (8-40); MCH 27.1 pg (25.7-33.7); MCHC 32.8 g/dl (32.0-35.9); MEAN CELL VOLUME 82.6 fl (80-96); MONO % 5.9 % (3.8-10.2); NEUT % 72.3 % (42.8-82.8); PLATELET COUNT 142 10^3/uL (134-434); RBC 4.04 M/mm3 (4.00-5.60); RDW 16.5 % (11.9-15.9)
[2023-10-23 16:08] LABS: EPI CELLS 12 /uL (0-25.1); HYALINE CASTS 2 /uL (0-3.1); URINE APPEARANCE TURBID; URINE BACTERIA 28 /uL (0-1359); URINE BILIRUBIN NEGATIVE (NEGATIVE); URINE COLOR YELLOW; URINE GLUCOSE (UA) NEGATIVE (NEGATIVE); URINE KETONE NEGATIVE (NEGATIVE); URINE LEUK ESTERASE 3+ (NEGATIVE); URINE NITRITE NEGATIVE (NEGATIVE); URINE PROTEIN 1+ (NEGATIVE); URINE WBC 10861 /uL (0-25.8)
[2023-10-23 16:12] LABS: INR 1.01 (0.83-1.09); PROTHROMBIN TIME (PATIENT) 11.6 SEC (9.7-13.0)
[2023-10-23 16:15] LABS: ACTIVATED PTT 31.3 SECONDS (25.2-36.5)
[2023-10-23 16:22] LABS: POTASSIUM 4.7 mmol/L (3.5-5.1)
[2023-10-23 16:24] LABS: CALCIUM 8.9 mg/dL (8.5-10.1)
[2023-10-23 16:25] LABS: ALBUMIN 2.8 g/dl (3.4-5.0); BLOOD UREA NITROGEN 39.2 mg/dL (7-18)
[2023-10-23 16:28] LABS: CREATININE 1.3 mg/dL (0.55-1.3)
[2023-10-23 16:30] LABS: BILIRUBIN,TOTAL 0.4 mg/dL (0.2-1); TOT PROT 6.5 g/dl (6.4-8.2)
[2023-10-23 16:57] LABS: LACTIC ACID 2.6 mmol/L (0.4-2.0)
[2023-10-23] MEDS: MEROPENEM 1 GM in DEXTROSE 5%-WATER 100 ML IVPB ONE (17:05)
[2023-10-23] MEDS ORDERED: VANCOMYCIN 1 GRAM (PRE-DOCKED) 1,000 MG/250 ML BAG IVPB ONE (17:14)
[2023-10-23] MEDS ORDERED: MEROPENEM 1 GM VIAL (RESTRICTED TO ID) IVPB ONE (17:14)
[2023-10-23 17:25] LABS: URINE RBC 162.9 /uL (0-23.9); YEAST MODERATE (NEGATIVE)
[2023-10-23] MEDS: VANCOMYCIN 1,000 MG in DEXTROSE 5%-WATER - 250 ML IVPB ONE (17:35)
[2023-10-23] MEDS ORDERED: ONDANSETRON 4 MG/2 ML VIAL ONE (19:39)
[2023-10-23] MEDS: ONDANSETRON 4 MG/2 ML VIAL IVPUSH ONE (19:53)
[2023-10-23] MEDS ORDERED: NITROGLYCERIN SUBLINGUAL 1/150 0.4 MG TAB ONE (19:56)
[2023-10-23] MEDS: NITROGLYCERIN SUBLINGUAL 1/150 0.4 MG TAB SL ONE (19:59)
[2023-10-24 01:34] VITALS: BMI 22.8
[2023-10-24] MEDS: SODIUM CHLORIDE 1,000 ML IV SCH ×2 (05:34→10:04)
[2023-10-24] MEDS: INSULIN ASPART SLIDING SCALE (NOVOLOG) 1 VIAL SQ SCH ×2 (05:59→16:59)
[2023-10-24] MEDS: MEROPENEM 1 GM in DEXTROSE 5%-WATER 100 ML IVPB SCH (06:16)
[2023-10-24] MEDS ORDERED: INSULIN ASPART SLIDING SCALE (NOVOLOG) 1 VIAL SQ SCH (07:00)
[2023-10-24] MEDS: VANCOMYCIN/WATER FOR INJ (PEG) 1,000 MG/200 ML BAG IVPB SCH (07:00)
[2023-10-24] MEDS: ENOXAPARIN NA (PORCINE) 40 MG/0.4 ML DISP.SYRIN SQ SCH (10:02)
[2023-10-24 10:53] LABS: POTASSIUM 4.8 mmol/L (3.5-5.1)
[2023-10-24 10:59] LABS: BLOOD UREA NITROGEN 31.9 mg/dL (7-18); CALCIUM 8.6 mg/dL (8.5-10.1); MAGNESIUM 1.8 mg/dL (1.8-2.4)
[2023-10-24 11:00] LABS: ALBUMIN 2.7 g/dl (3.4-5.0)
[2023-10-24 11:03] LABS: CREATININE 1.1 mg/dL (0.55-1.3); PHOSPHOROUS 2.7 mg/dL (2.5-4.9)
[2023-10-24 11:04] LABS: BILIRUBIN,TOTAL 0.5 mg/dL (0.2-1); TOT PROT 6.2 g/dl (6.4-8.2)
[2023-10-24 13:06] LABS: HEMATOCRIT 33.4 % (35.4-49); HEMOGLOBIN 11.2 GM/dL (11.7-16.9); MCH 27.5 pg (25.7-33.7); MCHC 33.4 g/dl (32.0-35.9); MEAN CELL VOLUME 82.3 fl (80-96); PLATELET COUNT 146 10^3/uL (134-434); RBC 4.06 M/mm3 (4.00-5.60); RDW 16.6 % (11.9-15.9); WHITE BLOOD COUNT 7.4 K/mm3 (4.0-10.0)
[2023-10-24] MEDS: VANCOMYCIN 1,000 MG in DEXTROSE 5%-WATER - 250 ML IVPB SCH (13:25)
[2023-10-24] MEDS ORDERED: ALBUTEROL SO4 HFA INHALER IH PRN (15:55)
[2023-10-24] MEDS: CLOPIDOGREL BISULFATE 75 MG TABLET (FP) PO SCH (16:58)
[2023-10-24] MEDS: ASPIRIN COATED 81 MG TABLET.EC PO SCH (16:58)
[2023-10-24] MEDS: ACETAMINOPHEN 325 MG TABLET (FP) PO PRN (17:05)
[2023-10-24] MEDS: IBUPROFEN 600 MG TABLET (FP) PO ONE (18:58)
[2023-10-24] MEDS: ROSUVASTATIN CA 20 MG TABLET PO SCH (21:36)
[2023-10-24] MEDS: MIRTAZAPINE 15 MG TABLET (FP) PO SCH (21:36)
[2023-10-24] MEDS: TAMSULOSIN HCL 0.4 MG CAP PO SCH (21:36)
[2023-10-24] MEDS ORDERED: PATIENT'S OWN MEDICATION (NON-FORMULARY) (Mirtazapine [Mirtazapine] 7.5 MG Tablet) PO SCH (22:00)
[2023-10-24] MEDS: BUDESONIDE/FORMETEROL FUMARATE 160/4.5 mcg INHALER IH SCH (22:09)
[2023-10-25 08:53] VITALS: RESP 18
[2023-10-25] MEDS: CEFTRIAXONE 1 GM in DEXTROSE 5%-WATER - 50 ML IVPB SCH (09:14)
[2023-10-25] MEDS: CARVEDILOL 3.125 MG TABLET (FP) PO SCH (09:14)
[2023-10-25 09:48] LABS: HEMATOCRIT 30.8 % (35.4-49); HEMOGLOBIN 10.4 GM/dL (11.7-16.9); MCH 27.6 pg (25.7-33.7); MCHC 33.7 g/dl (32.0-35.9); MEAN CELL VOLUME 82.1 fl (80-96); PLATELET COUNT 128 10^3/uL (134-434); RBC 3.75 M/mm3 (4.00-5.60); RDW 16.4 % (11.9-15.9); WHITE BLOOD COUNT 4.8 K/mm3 (4.0-10.0)
[2023-10-25] MEDS ORDERED: MEROPENEM 1 GM in DEXTROSE 5%-WATER 100 ML IVPB SCH (10:00)
[2023-10-25] MEDS ORDERED: CARVEDILOL 3.125 MG TABLET (FP) PO SCH (10:00)
[2023-10-25 10:04] LABS: POTASSIUM 4.9 mmol/L (3.5-5.1)
[2023-10-25 10:10] LABS: BLOOD UREA NITROGEN 28.3 mg/dL (7-18); CALCIUM 8.7 mg/dL (8.5-10.1)
[2023-10-25 10:11] LABS: ALBUMIN 2.6 g/dl (3.4-5.0); MAGNESIUM 1.8 mg/dL (1.8-2.4)
[2023-10-25 10:14] LABS: CREATININE 1.1 mg/dL (0.55-1.3); PHOSPHOROUS 3.3 mg/dL (2.5-4.9)
[2023-10-25 10:15] LABS: TOT PROT 6.2 g/dl (6.4-8.2)
[2023-10-25 10:16] LABS: BILIRUBIN,TOTAL 0.3 mg/dL (0.2-1)
[2023-10-25] MEDS: ACETAMINOPHEN 325 MG TABLET (FP) PO SCH (14:28)
[2023-10-25] MEDS: SACUBITRIL/VALSARTAN 24 MG-26 MG TABLET PO SCH (21:22)
[2023-10-26 12:09] LABS: HEMATOCRIT 29.8 % (35.4-49); HEMOGLOBIN 9.9 GM/dL (11.7-16.9); MCH 27.6 pg (25.7-33.7); MCHC 33.3 g/dl (32.0-35.9); MEAN CELL VOLUME 83.1 fl (80-96); MEAN PLT VOLUME 8.1 fl (7.5-11.1); PLATELET COUNT 139 10^3/uL (134-434); RBC 3.59 M/mm3 (4.00-5.60); RDW 16.2 % (11.9-15.9); WHITE BLOOD COUNT 6.4 K/mm3 (4.0-10.0)
[2023-10-26 12:25] LABS: POTASSIUM 4.3 mmol/L (3.5-5.1)
[2023-10-26 12:30] LABS: CALCIUM 8.1 mg/dL (8.5-10.1)
[2023-10-26 12:32] LABS: ALBUMIN 2.4 g/dl (3.4-5.0); BLOOD UREA NITROGEN 26.2 mg/dL (7-18)
[2023-10-26 12:35] LABS: CREATININE 0.9 mg/dL (0.55-1.3)
[2023-10-26 12:37] LABS: BILIRUBIN,TOTAL 0.2 mg/dL (0.2-1); TOT PROT 5.8 g/dl (6.4-8.2)
[2023-10-26] MEDS: DEXTROSE 5%-0.45% SALINE 1,000 ML IV SCH (16:12)
[2023-10-26] MEDS: PANTOPRAZOLE SODIUM 40 MG VIAL IVPUSH SCH (16:12)
[2023-10-27 08:42] LABS: HEMATOCRIT 31.1 % (35.4-49); HEMOGLOBIN 10.3 GM/dL (11.7-16.9); MCH 27.2 pg (25.7-33.7); MCHC 33.1 g/dl (32.0-35.9); MEAN CELL VOLUME 82.3 fl (80-96); MEAN PLT VOLUME 7.9 fl (7.5-11.1); PLATELET COUNT 136 10^3/uL (134-434); RBC 3.78 M/mm3 (4.00-5.60); RDW 16.1 % (11.9-15.9); WHITE BLOOD COUNT 5.6 K/mm3 (4.0-10.0)
[2023-10-27 08:57] LABS: POTASSIUM 4.2 mmol/L (3.5-5.1)
[2023-10-27 09:04] LABS: CALCIUM 8.4 mg/dL (8.5-10.1)
[2023-10-27 09:05] LABS: ALBUMIN 2.5 g/dl (3.4-5.0); BLOOD UREA NITROGEN 20.5 mg/dL (7-18)
[2023-10-27 09:06] LABS: CREATININE 0.9 mg/dL (0.55-1.3)
[2023-10-27 09:09] LABS: BILIRUBIN,TOTAL 0.2 mg/dL (0.2-1); TOT PROT 5.7 g/dl (6.4-8.2)
[2023-10-28 09:18] LABS: HEMATOCRIT 35.6 % (35.4-49); HEMOGLOBIN 11.9 GM/dL (11.7-16.9); MCH 27.6 pg (25.7-33.7); MCHC 33.5 g/dl (32.0-35.9); MEAN CELL VOLUME 82.5 fl (80-96); MEAN PLT VOLUME 7.8 fl (7.5-11.1); PLATELET COUNT 154 10^3/uL (134-434); RBC 4.32 M/mm3 (4.00-5.60); RDW 16.2 % (11.9-15.9); WHITE BLOOD COUNT 5.7 K/mm3 (4.0-10.0)
[2023-10-28 09:34] LABS: POTASSIUM 4.6 mmol/L (3.5-5.1)
[2023-10-28 09:35] LABS: ALBUMIN 2.6 g/dl (3.4-5.0); BLOOD UREA NITROGEN 16.8 mg/dL (7-18); CALCIUM 8.7 mg/dL (8.5-10.1)
[2023-10-28 09:39] LABS: TOT PROT 6.2 g/dl (6.4-8.2)
[2023-10-28 09:41] LABS: BILIRUBIN,TOTAL 0.2 mg/dL (0.2-1)
[2023-10-28 18:00] LABS: PH,URINE 5.5 (5.0-8.0); URINE APPEARANCE Slightly Cloudy; URINE BILIRUBIN Negative (NEGATIVE); URINE COLOR Yellow; URINE GLUCOSE (UA) Trace (NEGATIVE); URINE KETONE Negative (NEGATIVE); URINE LEUK ESTERASE 1+ (NEGATIVE); URINE NITRITE Negative (NEGATIVE); URINE PROTEIN 3+ (NEGATIVE); URINE UROBILINOGEN 0.2 mg/dL (0.2-1.0)
[2023-10-28 18:29] LABS: EPI CELLS 24.5 /uL (0-25.1); HYALINE CASTS 1.46 /uL (0-3.1); URINE BACTERIA 3.7 /uL (0-1359); URINE WBC 392.5 /uL (0-25.8); YEAST MODERATE (NEGATIVE)
[2023-10-29 08:39] LABS: BASO % 0.5 % (0-2.0); EOS % 3.6 % (0-4.5); HEMATOCRIT 33.5 % (35.4-49); HEMOGLOBIN 11.2 GM/dL (11.7-16.9); LYMPH % 19.9 % (8-40); MCH 27.5 pg (25.7-33.7); MCHC 33.4 g/dl (32.0-35.9); MEAN CELL VOLUME 82.5 fl (80-96); MEAN PLT VOLUME 7.9 fl (7.5-11.1); MONO % 5.6 % (3.8-10.2); NEUT % 70.4 % (42.8-82.8); PLATELET COUNT 146 10^3/uL (134-434); RBC 4.07 M/mm3 (4.00-5.60); RDW 16.4 % (11.9-15.9); WHITE BLOOD COUNT 7.1 K/mm3 (4.0-10.0)
[2023-10-29 08:58] LABS: BLOOD UREA NITROGEN 16.5 mg/dL (7-18); CALCIUM 8.5 mg/dL (8.5-10.1)
[2023-10-29 08:59] LABS: ALBUMIN 2.5 g/dl (3.4-5.0); MAGNESIUM 1.7 mg/dL (1.8-2.4)
[2023-10-29 09:01] LABS: PHOSPHOROUS 2.4 mg/dL (2.5-4.9)
[2023-10-29 09:03] LABS: CREATININE 0.9 mg/dL (0.55-1.3); TOT PROT 6.1 g/dl (6.4-8.2)
[2023-10-29 09:05] LABS: BILIRUBIN,TOTAL 0.3 mg/dL (0.2-1)
[2023-10-29] MEDS: NAPH,MB-DB/K PH,MBDB POWDER PACKET PO ONE (10:33)
[2023-10-29] MEDS: MAGNESIUM SULF 50% (8.12 MEQ/2 ML-1 GM VIAL) IVPB ONE (10:33)
[2023-10-29 12:04] VITALS: PULSE 81
[2023-10-29] MEDS: POLYETHYLENE GLYCOL (HEALTHYLAX) 3350 17 GM PACKET PO SCH (13:19)
[2023-10-29 15:01] VITALS: BP 145/54; TEMP 98.3
== END 2023-10-29 21:00 | disposition home or self-care (01) | DRG 689 ==
LOC: JER 14:33 → JERBED 17:58 → J6S 20:34
PROVIDERS: ADMIT Internal Medicine; ATTEND Internal Medicine
DX: N39.0 Urinary tract infection, site not specified (principal); G93.41 Metabolic encephalopathy; E11.52 Type 2 diabetes mellitus with diabetic peripheral angiopathy with gangrene; I13.0 Hypertensive heart and chronic kidney disease with heart failure and stage 1 through stage 4 chronic kidney disease, or unspecified chronic kidney disease; I50.42 Chronic combined systolic (congestive) and diastolic (congestive) heart failure; N17.9 Acute kidney failure, unspecified; E87.20 Acidosis, unspecified; R44.3 Hallucinations, unspecified; E46 Unspecified protein-calorie malnutrition; J96.11 Chronic respiratory failure with hypoxia; E11.51 Type 2 diabetes mellitus with diabetic peripheral angiopathy without gangrene; J44.9 Chronic obstructive pulmonary disease, unspecified; N18.9 Chronic kidney disease, unspecified; E78.5 Hyperlipidemia, unspecified; K22.0 Achalasia of cardia; Z99.3 Dependence on wheelchair; F17.210 Nicotine dependence, cigarettes, uncomplicated; R33.9 Retention of urine, unspecified; I25.10 Atherosclerotic heart disease of native coronary artery without angina pectoris; Z95.1 Presence of aortocoronary bypass graft; Z95.5 Presence of coronary angioplasty implant and graft; N40.1 Benign prostatic hyperplasia with lower urinary tract symptoms
CPT/HCPCS: 0241U-QW; 36415; 70450-TC; 71045-TC-FY; 71250-TC; 74176-TC; 74220-TC-FY; 74240-TC-FY; 80053; 81003; 82962; 83605; 83735; 84100; 84484; 85025; 85027; 85610; 85730; 86850; 86900; 86901; 87040; 87086; 87106; 93005; 93010; 99285-25

== ENCOUNTER 2023-12-01 21:35 | Emergency (ER) | payer OTHER, MEDICARE ==
[2023-12-01 21:46] VITALS: BMI 22.3
[2023-12-01 23:52] LABS: BASO % 0.5 % (0-2.0); EOS % 1.5 % (0-4.5); HEMATOCRIT 33.7 % (35.4-49); HEMOGLOBIN 11.3 GM/dL (11.7-16.9); LYMPH % 15.8 % (8-40); MCH 26.9 pg (25.7-33.7); MCHC 33.6 g/dl (32.0-35.9); MEAN CELL VOLUME 80.1 fl (80-96); MEAN PLT VOLUME 8.1 fl (7.5-11.1); MONO % 6.1 % (3.8-10.2); NEUT % 76.1 % (42.8-82.8); PLATELET COUNT 135 10^3/uL (134-434); RBC 4.21 M/mm3 (4.00-5.60); RDW 16.4 % (11.9-15.9); WHITE BLOOD COUNT 8.4 K/mm3 (4.0-10.0)
[2023-12-02 00:07] LABS: POTASSIUM 4.7 mmol/L (3.5-5.1)
[2023-12-02 00:09] LABS: CALCIUM 8.7 mg/dL (8.5-10.1)
[2023-12-02 00:10] LABS: ALBUMIN 2.9 g/dl (3.4-5.0); BLOOD UREA NITROGEN 40.5 mg/dL (7-18); MAGNESIUM 1.9 mg/dL (1.8-2.4)
[2023-12-02 00:12] LABS: CREATININE 1.3 mg/dL (0.55-1.3)
[2023-12-02 00:13] LABS: PHOSPHOROUS 3.2 mg/dL (2.5-4.9)
[2023-12-02 00:14] LABS: BILIRUBIN,TOTAL 0.3 mg/dL (0.2-1)
[2023-12-02] MEDS: SODIUM CHLORIDE 0.9% 500 ML INFUS.BAG IV ONE (00:19)
[2023-12-02 00:39] LABS: EPI CELLS 3 /uL (0-25.1); HYALINE CASTS 4 /uL (0-3.1); URINE APPEARANCE CLEAR; URINE BACTERIA 12 /uL (0-1359); URINE BILIRUBIN NEGATIVE (NEGATIVE); URINE COLOR YELLOW; URINE GLUCOSE (UA) NEGATIVE (NEGATIVE); URINE KETONE NEGATIVE (NEGATIVE); URINE LEUK ESTERASE 2+ (NEGATIVE); URINE NITRITE NEGATIVE (NEGATIVE); URINE PROTEIN 1+ (NEGATIVE); URINE UROBILINOGEN 0.2 mg/dL (0.2-1.0); URINE WBC 726 /uL (0-25.8)
[2023-12-02] MEDS ORDERED: NITROGLYCERIN SUBLINGUAL 1/150 0.4 MG TAB ONE (00:40)
[2023-12-02] MEDS: NITROGLYCERIN SUBLINGUAL 1/150 0.4 MG TAB SL ONE (00:48)
[2023-12-02 01:37] VITALS: BP 140/57; PULSE 79; RESP 19
[2023-12-02] MEDS ORDERED: CEFTRIAXONE 1 GM/50 ML BAG ONE (01:38)
[2023-12-02 01:51] VITALS: TEMP 99.3
[2023-12-02] MEDS: CEFTRIAXONE 1 GM in DEXTROSE 5%-WATER - 100 ML IVPB ONE (01:52)
[2023-12-02] MEDS ORDERED: ACETAMINOPHEN 325 MG TABLET (FP) ONE (01:54)
[2023-12-02] MEDS: ACETAMINOPHEN 325 MG TABLET (FP) PO ONE (02:16)
== END 2023-12-02 04:06 | disposition home or self-care (01) ==
LOC: JER 21:35
DX: N39.0 Urinary tract infection, site not specified (principal); R53.1 Weakness; R10.11 Right upper quadrant pain; R06.2 Wheezing
CPT/HCPCS: 36415; 71045-TC-FY; 80053; 81003; 83690; 83735; 84100; 84484; 85025; 87077; 87086; 93005; 93010; 99285-25

== ENCOUNTER 2024-03-31 04:07 | Day surgery (SDC) | payer OTHER, MEDICARE ==
[2024-03-28 15:11] VITALS: BMI 21.6
[2024-03-31] MEDS ORDERED: ACETAMINOPHEN 500 MG TABLET (FP) PO PRN (09:09)
[2024-03-31] MEDS: LIDOCAINE HCL 1% PRESERVATIVE FREE - 30ML VIAL IJ ONE (13:24)
[2024-03-31] MEDS: LIDOCAINE HCL/EPINEPHRINE/PF 10 ML VIAL IVPUSH ONE ×2 (13:25→13:36)
[2024-03-31] MEDS: DEXAMETHASONE SOD PHOSPHATE 10 MG/1 ML VIAL IM ONE ×3 (13:43)
[2024-03-31] MEDS: BUPIVACAINE HCL/PF 0.75% 10 ML VIAL NR ONE ×2 (13:43)
[2024-03-31 14:35] VITALS: BP 129/63; PULSE 60; RESP 20; TEMP 97.9
== END 2024-03-31 14:50 | disposition home or self-care (01) ==
LOC: JASU-SURG 04:07
PROVIDERS: ATTEND Pain Medicine Pain Medicine
PROC: 01513ZZ Destruction of Cervical Nerve, Percutaneous Approach (ICD-10-PCS; principal; 2024-03-31 13:00)
DX: M47.812 Spondylosis without myelopathy or radiculopathy, cervical region (principal)
CPT/HCPCS: 76000-TC-FY; J1100

== ENCOUNTER 2024-05-12 04:08 | Day surgery (SDC) | payer OTHER, MEDICARE ==
[2024-05-06 11:57] VITALS: BMI 20.6
[2024-05-12] MEDS: BUPIVACAINE HCL/PF 0.5% (5MG/ML) 10 ML VIAL IJ ONE
[2024-05-12] MEDS: LIDOCAINE HCL 1% PRESERVATIVE FREE - 30ML VIAL IJ ONE
[2024-05-12] MEDS: LIDOCAINE HCL/PF 2% SDV 5ML VIAL INF ONE
[2024-05-12] MEDS: DEXAMETHASONE SOD PHOSPHATE 10 MG/1 ML VIAL IVPUSH ONE
[2024-05-12] MEDS ORDERED: ACETAMINOPHEN 500 MG TABLET (FP) PO PRN (08:44)
[2024-05-12 10:13] VITALS: RESP 16; TEMP 97.8
[2024-05-12 10:15] VITALS: BP 94/51; PULSE 62
== END 2024-05-12 11:59 | disposition home or self-care (01) ==
LOC: JASU-SURG 04:08
PROVIDERS: ATTEND Pain Medicine Pain Medicine
DX: Z53.8 Procedure and treatment not carried out for other reasons (principal)
CPT/HCPCS: J1100

== ENCOUNTER 2024-08-15 05:30 | Day surgery (SDC) | payer OTHER, MEDICARE ==
[2024-08-10 16:57] VITALS: BMI 21.6
[2024-08-15] MEDS ORDERED: LIDOCAINE HCL/PF 2% SDV 5ML VIAL ONE (08:26)
[2024-08-15 09:27] VITALS: RESP 18
[2024-08-15] MEDS ORDERED: PROPOFOL 40 ML ONE (11:12)
[2024-08-15] MEDS ORDERED: DEXAMETHASONE SOD PHOSPHATE 4 MG/1 ML VIAL ONE (11:15)
[2024-08-15] MEDS ORDERED: ONDANSETRON 4 MG/2 ML VIAL ONE (11:16)
[2024-08-15] MEDS ORDERED: MIDAZOLAM HCL 2 MG/2 ML SINGLE DOSE VIAL ONE (11:17)
[2024-08-15] MEDS ORDERED: ONDANSETRON 4 MG/2 ML VIAL IVPUSH PRN (11:38)
[2024-08-15] MEDS ORDERED: LACTATED RINGERS SOLUTION 1,000 ML IV SCH (11:45)
[2024-08-15] MEDS ORDERED: ceFAZolin SODIUM 1 GM VIAL ONE (11:47)
[2024-08-15] MEDS: ceFAZolin SODIUM 1 GM VIAL IVPB ONE (11:48)
[2024-08-15 14:45] VITALS: BP 111/60; PULSE 66; TEMP 97.9
== END 2024-08-15 14:45 | disposition home or self-care (01) ==
LOC: JASU-SURG 05:30
PROVIDERS: ATTEND Urology
PROC: 0TND8ZZ Release Urethra, Via Natural or Artificial Opening Endoscopic (ICD-10-PCS; principal; 2024-08-15 11:00)
DX: N35.919 Unspecified urethral stricture, male, unspecified site (principal)
CPT/HCPCS: 82962; 94760

== ENCOUNTER 2024-12-29 10:49 | Day surgery (SDC) | payer OTHER, MEDICARE ==
[2024-12-29] MEDS: SODIUM CHLORIDE 250 ML IV ONE (10:47)
[2024-12-29] MEDS: MAGNESIUM 2GM/50ML STERILE WATER IVPB IVPB ONE (10:48)
[2024-12-29] MEDS: PEMBROLIZUMAB 200 MG in SODIUM CHLORIDE 100 ML IVPB ONE (11:41)
[2024-12-29 13:51] VITALS: RESP 20; TEMP 98.1
[2024-12-29 14:08] VITALS: BP 108/56; PULSE 70
== END 2024-12-29 12:30 | disposition home or self-care (01) ==
LOC: J7W 10:49 → JONCCHEMO 10:49
PROVIDERS: ATTEND Internal Medicine Hematology & Oncology
DX: Z51.11 Encounter for antineoplastic chemotherapy (principal); C34.31 Malignant neoplasm of lower lobe, right bronchus or lung
CPT/HCPCS: 96367; 96413; J9271

== ENCOUNTER 2025-01-22 12:32 | Inpatient (IN) | payer OTHER, MEDICARE ==
[2025-01-22] MEDS ORDERED: ACETAMINOPHEN INJECTION 100 ML ONE (13:23)
[2025-01-22] MEDS: LACTATED RINGERS SOLUTION 1000 ML INFUS.BAG IV ONE ×2 (13:39→15:57)
[2025-01-22] MEDS: ACETAMINOPHEN 1000 MG/100 ML BAG IVPB ONE (13:39)
[2025-01-22 13:45] LABS: ABSOLUTE IMMATURE GRANULOCYTES 0.09 x10^3/uL (0.0-0.031); BASOPHILS # 0.03 x10^3/uL (0.01-0.08); EOSINOPHIL % 0.1 % (0.8-7.0); EOSINOPHILS # 0.01 x10^3/uL (0.04-0.54); MCHC 30.6 g/dl (32.3-36.5); MEAN CELL VOLUME 84.9 fl (79.0-92.2); MEAN PLT VOLUME 9.2 fl (9.4-12.4); MONOCYTE # 0.85 x10^3/uL (0.30-0.82); MONOCYTE % 4.4 % (5.3-12.2); RDW 17.7 % (12.6-16.6)
[2025-01-22 13:58] LABS: GLUCOSE,RANDOM 270.0 mg/dL (74-106); TOT PROT 7.3 g/dl (6.4-8.2)
[2025-01-22 13:59] LABS: CO2 19.0 mmol/L (21-32)
[2025-01-22 14:01] LABS: ALK PHOS 85.0 U/L (40-150)
[2025-01-22] MEDS ORDERED: CEFTRIAXONE 1 GM/50 ML BAG ONE (15:03)
[2025-01-22] MEDS: CEFTRIAXONE 1,000 MG in DEXTROSE 5%-WATER - 50 ML IVPB ONE (15:05)
[2025-01-22 15:09] LABS: EPI CELLS 20 /uL (0-25.1); HYALINE CASTS 7 /uL (0-3.1); URINE APPEARANCE TURBID; URINE BACTERIA 29 /uL (0-1359); URINE BILIRUBIN NEGATIVE (NEGATIVE); URINE COLOR YELLOW; URINE GLUCOSE (UA) NEGATIVE (NEGATIVE); URINE KETONE TRACE (NEGATIVE); URINE LEUK ESTERASE 3+ (NEGATIVE); URINE NITRITE NEGATIVE (NEGATIVE); URINE PROTEIN 2+ (NEGATIVE); URINE RBC 75 /uL (0-23.9); URINE UROBILINOGEN 1.0 mg/dL (0.2-1.0); URINE WBC 2666 /uL (0-25.8)
[2025-01-22 15:26] LABS: YEAST MODERATE (NEGATIVE)
[2025-01-22 15:28] LABS: CREATININE 1.27 mg/dL (0.55-1.3); SGOT/AST 29.0 U/L (5-34); SGPT/ALT 26.0 U/L (0-55)
[2025-01-22 15:49] LABS: LACTIC ACID 2.3 mmol/L (0.4-2.0)
[2025-01-22] MEDS ORDERED: VANCOMYCIN 1,000 MG in DEXTROSE 5%-WATER - 250 ML IVPB SCH (18:15)
[2025-01-22] MEDS ORDERED: VANCOMYCIN 1 GM PREMIX (F) 1 GM/200 ML BAG ONE (18:26)
[2025-01-22] MEDS: SODIUM CHLORIDE 1,000 ML IV SCH (19:04)
[2025-01-22] MEDS: VANCOMYCIN/WATER FOR INJ (PEG) 1,000 MG/200 ML BAG IVPB SCH (19:05)
[2025-01-22] MEDS: ESCITALOPRAM OXALATE 10 MG TABLET PO SCH (22:45)
[2025-01-22] MEDS: ROSUVASTATIN CA 20 MG TABLET PO SCH (22:46)
[2025-01-22] MEDS: TAMSULOSIN HCL 0.4 MG CAP PO SCH (22:46)
[2025-01-22] MEDS: BUDESONIDE/FORMETEROL FUMARATE 160/4.5 mcg INHALER IH SCH (22:54)
[2025-01-22] MEDS: LATANOPROST 0.005% OPHTH SOLN 2.5ML BOTTLE OU SCH (22:55)
[2025-01-22] MEDS: INSULIN (NOVOLOG) ASPART 100 UNITS/ML 10ML VIAL SQ SCH (22:55)
[2025-01-23] MEDS: PIPERACILLIN/TAZOB 3.375 GM 3.375 GM in DEXTROSE 5%-WATER - 50 ML IVPB SCH (01:39)
[2025-01-23] MEDS ORDERED: PIPERACILLIN/TAZOB 3.375 GM 3.375 GM in DEXTROSE 5%-WATER - 50 ML IVPB SCH (02:00)
[2025-01-23] MEDS: ONDANSETRON 4 MG/2 ML VIAL IVPUSH PRN (03:00)
[2025-01-23 07:32] LABS: ABSOLUTE IMMATURE GRANULOCYTES 0.03 x10^3/uL (0.0-0.031); BASOPHILS # 0.02 x10^3/uL (0.01-0.08); EOSINOPHIL % 1.5 % (0.8-7.0); EOSINOPHILS # 0.11 x10^3/uL (0.04-0.54); MCHC 31.1 g/dl (32.3-36.5); MEAN CELL VOLUME 84.4 fl (79.0-92.2); MEAN PLT VOLUME 9.6 fl (9.4-12.4); MONOCYTE # 0.38 x10^3/uL (0.30-0.82); MONOCYTE % 5.2 % (5.3-12.2); RDW 17.4 % (12.6-16.6)
[2025-01-23 07:50] LABS: GLUCOSE,RANDOM 123.0 mg/dL (74-106); TOT PROT 5.5 g/dl (6.4-8.2)
[2025-01-23 07:51] LABS: CO2 22.0 mmol/L (21-32)
[2025-01-23 07:53] LABS: ALK PHOS 59.0 U/L (40-150)
[2025-01-23 07:55] LABS: SGOT/AST 18.0 U/L (5-34); SGPT/ALT 15.0 U/L (0-55)
[2025-01-23 07:56] LABS: CREATININE 1.01 mg/dL (0.55-1.3)
[2025-01-23] MEDS: CLOPIDOGREL BISULFATE 75 MG TABLET (FP) PO SCH (10:00)
[2025-01-23] MEDS: ENOXAPARIN NA (PORCINE) 40 MG/0.4 ML DISP.SYRIN SQ SCH (11:22)
[2025-01-23] MEDS: LACTATED RINGERS SOLUTION 1,000 ML/1,000 ML INFUS.BAG IV SCH (12:35)
[2025-01-23] MEDS: IOHEXOL (OMNIPAQUE IV) 350 MG/ML - 100 ML BOTTLE PO ONE ×2 (15:55)
[2025-01-24] MEDS: BISACODYL 10 MG SUPP.RECT PR ONE (08:45)
[2025-01-24 09:54] LABS: ABSOLUTE IMMATURE GRANULOCYTES 0.03 x10^3/uL (0.0-0.031); BASOPHILS # 0.02 x10^3/uL (0.01-0.08); EOSINOPHIL % 5.3 % (0.8-7.0); EOSINOPHILS # 0.32 x10^3/uL (0.04-0.54); MCHC 30.7 g/dl (32.3-36.5); MEAN CELL VOLUME 85.7 fl (79.0-92.2); MEAN PLT VOLUME 9.8 fl (9.4-12.4); MONOCYTE # 0.38 x10^3/uL (0.30-0.82); MONOCYTE % 6.3 % (5.3-12.2); RDW 17.5 % (12.6-16.6)
[2025-01-24 10:20] LABS: GLUCOSE,RANDOM 109.0 mg/dL (74-106)
[2025-01-24 10:21] LABS: TOT PROT 5.6 g/dl (6.4-8.2)
[2025-01-24 10:22] LABS: CO2 20.0 mmol/L (21-32)
[2025-01-24 10:23] LABS: ALK PHOS 54.0 U/L (40-150)
[2025-01-24 10:26] LABS: CREATININE 1.04 mg/dL (0.55-1.3); SGOT/AST 24.0 U/L (5-34); SGPT/ALT 16.0 U/L (0-55)
[2025-01-24] MEDS: MAGNESIUM OXIDE 400 MG TABLET (FP) PO ONE (11:55)
[2025-01-24 12:58] VITALS: BMI 21.4
[2025-01-24] MEDS ORDERED: PIPERACILLIN/TAZOBACTAM 3.375 GM VIAL IVPB ONE (14:21)
[2025-01-24] MEDS: LACTULOSE 20 GM/30 ML UDC (FOR ORAL USE ONLY) PO ONE ×2 (14:21→18:44)
[2025-01-25] MEDS: LACTULOSE 20 GM/30 ML UDC (FOR ORAL USE ONLY) PO ONE (05:56)
[2025-01-25 06:14] VITALS: TEMP 98.1
[2025-01-25] MEDS: MULTIVITAMINS THER W-MINERALS COMBO TABLET (FP) PO SCH (09:55)
[2025-01-25 10:08] VITALS: BP 134/62; PULSE 81; RESP 18
== END 2025-01-25 13:30 | disposition home or self-care (01) | DRG 392 ==
LOC: JER 12:32 → JERBED 15:05 → J6S 21:49
PROVIDERS: ADMIT Student in an Organized Health Care Education/Training Program; ATTEND Internal Medicine
DX: R19.7 Diarrhea, unspecified (principal); C34.90 Malignant neoplasm of unspecified part of unspecified bronchus or lung; G82.20 Paraplegia, unspecified; I50.32 Chronic diastolic (congestive) heart failure; I25.10 Atherosclerotic heart disease of native coronary artery without angina pectoris; I11.0 Hypertensive heart disease with heart failure; F03.90 Unspecified dementia, unspecified severity, without behavioral disturbance, psychotic disturbance, mood disturbance, and anxiety; K21.9 Gastro-esophageal reflux disease without esophagitis; E11.9 Type 2 diabetes mellitus without complications; N40.0 Benign prostatic hyperplasia without lower urinary tract symptoms; M54.50 Low back pain, unspecified; L89.302 Pressure ulcer of unspecified buttock, stage 2; J44.9 Chronic obstructive pulmonary disease, unspecified; E86.0 Dehydration; F32.A Depression, unspecified; D64.9 Anemia, unspecified; Z95.1 Presence of aortocoronary bypass graft; Z95.810 Presence of automatic (implantable) cardiac defibrillator; I25.2 Old myocardial infarction
CPT/HCPCS: 36415; 71045-TC-FY; 74177-TC; 80053; 81003; 82962; 83605; 83735; 84100; 84484; 84550; 85025; 87040; 87045; 87046; 87081; 87086; 93005; 93010; 99285-25; J9271; Q9967

== ENCOUNTER 2025-03-02 10:39 | Day surgery (SDC) | payer OTHER, MEDICARE ==
[2025-03-02] MEDS: SODIUM CHLORIDE 500 ML IV ONE (11:16)
[2025-03-02] MEDS: ACETAMINOPHEN 325 MG TABLET (FP) PO ONE (12:17)
[2025-03-02] MEDS: PEMBROLIZUMAB 200 MG in SODIUM CHLORIDE 100 ML IVPB ONE (12:28)
[2025-03-02 15:06] VITALS: RESP 20; TEMP 98.8
[2025-03-02 15:10] VITALS: BP 90/48; PULSE 72
== END 2025-03-02 13:45 | disposition home or self-care (01) ==
LOC: JONCCHEMO 10:39 → J7W 10:39 → JONCCHEMO 13:45
PROVIDERS: ATTEND Internal Medicine Hematology & Oncology
DX: Z51.11 Encounter for antineoplastic chemotherapy (principal); C34.11 Malignant neoplasm of upper lobe, right bronchus or lung
CPT/HCPCS: 96413; J9271